=== PATIENT | male | born 1990 | race Caucasian/White ===

== ENCOUNTER 2018-10-23 11:45 | Emergency (ER) | payer MEDICAID, SELFPAY ==
[2018-10-23 11:46] VITALS: BP 159/96; PULSE 112; RESP 16; TEMP 36.8; O2SAT 99; BMI 31.3
[2018-10-23 12:00] VITALS: BP 180/108; PULSE 110; RESP 22; O2SAT 98
--- NOTE | 2018-10-23 12:20 | CM.ED ---
SOCIAL WORK THIS WORKER MADE AWARE OF PATIENT IN FOR MENTAL HEALTH CONSULT. CRISIS TO EVALUATE ONCE MEDICALLY STABLE. VIRGINIA OLGUIN, MUSIC MIXER, TOOL GRINDER SET UP OPERATOR GEAR.
[2018-10-23 12:48] LABS: Absolute Neutrophil Count 5.9 X10^3/uL (2.0-7.7); Basophil# 0.02 X10^3/uL; Basophil% 0.2 % (0-1); Eosinophil# 0.09 X10^3/uL; Hematocrit 39.3 % (40-54); Hemoglobin 13.3 g/dl (13.0-16.5); Lymphocyte % 25.3 % (19-41); Mean Corp Hgb Conc 33.8 g/gl (32-36); Mean Corpuscular Hgb 29.5 pg (27.0-32.0); Mean Corpuscular Volume 87.1 fL (80-94); Mean Platelet Vol. 10.3 fl (6.2-12.0); Monocyte# 0.82 X10^3/uL; Neutrophil # 5.85 X10^3/uL (2.7-7.7); Neutrophil % 64.3 % (47-70); POSITIVE COUNT NO; POSITIVE DIFFERENTIAL NO; POSITIVE MORPHOLOGY NO; Platelet Count 203 K/mm3 (150-450); RBC Distribution Width CV 14.2 % (11.6-14.6); RBC Distribution Width SD 45.2 fl (35.1-43.9); Red Blood Count 4.51 M/mm3 (4.6-6.2); White Blood Count 9.1 K/mm3 (4.4-11.0)
[2018-10-23 12:59] LABS: Anion Gap 10 (5-15); BUN 24 mg/dL (7-18); Calcium,Total 9.5 mg/dL (8.5-10.1); Chloride 103 mmol/L (98-107); Creatinine, Serum 1.09 mg/dL (0.70-1.30); EST Glomerular Filtration Rate 86 mL/min (>60); Est Glom Filt Rate - Afr Amer 104 mL/min (>60); Estimated Creatinine Clearance 95.17 ml/min; Glucose 94 mg/dL (74-106); Potassium 3.5 mmol/L (3.5-5.1); Sodium Level 141 mmol/L (136-145)
[2018-10-23 13:39] LABS: Valproic Acid (Depakene) Level 95 ug/mL (50-100)
[2018-10-23 13:48] LABS: Amphetamine Urine VISTA POSITIVE (<1000 ng/mL); Barbiturate Urine VISTA NEGATIVE (< 200 ng/mL); Benzodiazepine Urine VISTA NEGATIVE (< 200 ng/mL); Cocaine Urine VISTA NEGATIVE (< 300 ng/mL); Ecstacy Urine VISTA POSITIVE (< 500 ng/mL); Methadone Urine VISTA NEGATIVE (< 300 ng/mL); PCP Urine VISTA NEGATIVE (< 25 ng/mL); THC Urine VISTA NEGATIVE (< 50 ng/mL); Vista UDS pH Range 6
--- NOTE | 2018-10-23 14:38 | ED.RN ---
COUNSELING CENTER AWARE THAT PT NEEDS TO BE SEEN BY CRISIS
[2018-10-23] MEDS: LORazepam 2 MG/ML Syringe IM (15:04)
[2018-10-23 16:05] VITALS: PULSE 110; RESP 16; O2SAT 98
--- NOTE | 2018-10-23 16:10 | ED.RN ---
CRISIS REPORTED TO THIS NURSE THAT SHE WAS WRITING UP A PINK SLIP FOR PT AND OTHERS SAFETY,
[2018-10-23] MEDS: Ziprasidone IM 20 MG/ML VIAL IM (16:31)
--- NOTE | 2018-10-23 17:30 | CM.ED ---
SOCIAL WORK RETAIL SERVICE SPECIALIST DELMY HERE AND EVALUATED PATIENT. UPDATED REFERRAL HAS BEEN MADE TO [facility]. VIRGINIA OLGUIN, CONSUMER SERVICES CONSULTANT, FRUIT BUYING GRADER.
--- NOTE | 2018-10-23 17:57 | ED.DCSUM_ITS ---
- ER Visit Summary Date of Service: 10/23/18 Chief Complaint: [Abnormal behavior] History of Present Illness: The patient is a 28 M [presents to the emergency department with his mother whom he lives with currently. Patient apparently has been without a lot of his psychiatric medications for several weeks. Patient has not been sleeping at night and has had decreased interest her mother. Patient started drinking again. Mother has concerns that he might be using drugs again. Patient was just recently discharged from a 17-month long stay at a rehab facility for drug and alcohol treatment. Patient has been very manic per mother as well as per police aide who had an encounter with the patient recently. Patient does admit to drinking alcohol however he initially denied any drug use. He denies feeling suicidal or homicidal. Patient feels that this symptoms are all due to the fact that he is been without his Seroquel and trazodone.] Physical Examination: [HEENT-PERRLA, EOMI. Cranial nerves II through XII grossly intact. TMs clear. Mucous membranes moist. No adenopathy. Cardiovascular-regular rate and rhythm without murmur or ectopy Lungs-clear to auscultation, chest wall stable without crepitus or subcu emphysema Abdomen-normoactive bowel sounds, soft, nontender, no rebound or rigidity, no peritoneal signs. Extremities-intact ?4, normal range of motion, normal pulses, atraumatic] General-patient quite manic. Patient with flight of ideas. Patient with pressured speech. Test Results: [CBC with differential was normal. Chemistries unremarkable. Toxicology screen was positive for amphetamines and MDMA to which the patient d id admit using. Alcohol was negative.] Emergency Department Course and Treatment: [Patient initially given Ativan as he was feeling anxious 2 mg IM. Patient continued to complain of feeling very anxious and feeling like the room was closing in on him. The patient was pink slipped after being evaluated by crisis and discussing with patient's mother the fact that he is now destroying her house and is urinating in the house. Believe patient would benefit from inpatient stabilization.] Treatment Plan: [Transfer to psychiatric facility.] Disposition: [Transfer] Impression: [Psychosis-noncompliant with meds Manic episode] This note was generated with [employer] software. It may contain incorrect words, spelling, and punctuation that were not noted in review of the chart prior to signing ED Disposition - Plan for ED Patient: Referrals: Care Physician,No Primary [Primary Care Provider] -
[2018-10-23 18:48] VITALS: BP 158/84; PULSE 93; RESP 14; TEMP 36.8; O2SAT 100
--- NOTE | 2018-10-23 19:29 | NURSING ---
ACCEPTED TO [facility] BY DR. EDMONDSON [phone] REPORT
--- NOTE | 2018-10-23 19:45 | NURSING ---
[facility] CALLED AT 1934 SAID NO AVAILABILITY [facility] CALLED AT 1937 AND WAS TOLD COULD TRANSPORT AT 10AM 10/24 PHYSICIANS SAID BEHIND ON TRANSPORT CALL AFTER MIDNIGHT
[2018-10-23 21:35] VITALS: RESP 18
[2018-10-24 00:29] VITALS: BP 150/90; PULSE 102; RESP 18; O2SAT 96
[2018-10-24] MEDS: traZODone 50 MG Tablet PO ×2 (00:58→00:59)
[2018-10-24] MEDS: Divalproex Sodium 250 MG Tablet 1500 MG PO (00:59)
[2018-10-24] MEDS: QUEtiapine 100 MG Tablet 200 MG PO (01:00)
[2018-10-24] MEDS: hydrOXYzine PAM 25 MG Capsule 50 MG PO (01:00)
--- NOTE | 2018-10-24 01:08 | ED.RN ---
PATIENT WAS VERY POLITE AND COOPERATIVE WHEN I GAVE HIM HIS MEDICATIONS. HE ASKED WHEN AND WHERE HE WAS GOING. HE WAS OK WITH GOING TO [facility].
[2018-10-24 05:00] VITALS: BP 122/71; PULSE 86; RESP 16; O2SAT 100
[2018-10-24 06:06] VITALS: TEMP 36.6
[2018-10-24 06:20] VITALS: BP 122/71; PULSE 86; RESP 16; TEMP 36.6; O2SAT 100
[2018-10-24] MEDS: Celecoxib 100 MG Capsule PO (10:29)
[2018-10-24 10:30] VITALS: BP 123/67; PULSE 59; RESP 16; O2SAT 98
== END 2018-10-24 10:30 ==
PROVIDERS: Emergency Provider Emergency Medicine
DX: F29 Unspecified psychosis not due to a substance or known physiological condition (principal); F30.9 Manic episode, unspecified; F41.9 Anxiety disorder, unspecified; Z91.14 Patient's other noncompliance with medication regimen; Z79.899 Other long term (current) drug therapy
CPT/HCPCS: 36415; 80048; 80164; 80307; 80320; 85025; 96372; 99285; G0480; J3486

== ENCOUNTER 2019-05-29 01:41 | Emergency (ER) | payer MEDICAID, SELFPAY ==
[2019-05-29 01:41] VITALS: BP 157/90; PULSE 100; RESP 28; TEMP 36.9; O2SAT 97; BMI 25.7
[2019-05-29 02:08] VITALS: BP 131/88; PULSE 98; RESP 21; TEMP 36.9; O2SAT 94
[2019-05-29 02:44] VITALS: PULSE 111; RESP 18
[2019-05-29] MEDS: Ipratropium/Albuterol Sulfate 3 ML AMPUL.NEB INHALATION (02:44)
[2019-05-29] MEDS: 0.9% Normal Saline 1,000 ML 999 ML IV (03:08)
[2019-05-29] MEDS: MethylPREDNISolone 125 MG/2 ML Vial IV (03:21)
[2019-05-29 03:23] LABS: Absolute Lymphocyte Count 2.93 X10^3/uL (0.83-4.51); Absolute Neutrophil Count 10.2 X10^3/uL (2.0-7.7); Basophil# 0.07 X10^3/uL; Basophil% 0.5 % (0-1); Eosinophil# 0.72 X10^3/uL; Eosinophils% 4.8 % (0-5); Hematocrit 40.5 % (40-54); Hemoglobin 13.6 g/dL (13.0-16.5); Lymphocyte # 2.93 X10^3/ul (4.0); Lymphocyte % 19.3 % (19-41); Mean Corp Hgb Conc 33.6 g/dL (32-36); Mean Corpuscular Hgb 29.5 pg (27.0-32.0); Mean Corpuscular Volume 87.9 fL (80-94); Mean Platelet Vol. 10.5 fl (6.2-12.0); Monocyte# 1.14 X10^3/uL; Monocyte% 7.5 % (0-10); NRBC Flagged by Analyzer 0 % (0-5); Neutrophil # 10.22 X10^3/uL (2.7-7.7); Neutrophil % 67.4 % (47-70); Platelet Count 237 K/mm3 (150-450); RBC Distribution Width CV 14.2 % (11.6-14.6); RBC Distribution Width SD 45.3 fl (35.1-43.9); Red Blood Count 4.61 M/mm3 (4.6-6.2); White Blood Count 15.2 K/mm3 (4.4-11.0)
--- NOTE | 2019-05-29 03:24 | ED.VIS.GEN ---
History of Present Illness Chief Complaint: Shortness of Breath Informant: Patient Narrative: Patient states that for the past several weeks he has been experiencing chest tightness. He was seen initially at [facility] than the [facility] practice twice and now tonight here in the emergency department. He states that he has an aerosol machine at home has been using a pro-air inhaler. Has also done prednisone with taper. He is completed a course of doxycycline. Prior to doxycycline he was on penicillin for tooth infection but states that the penicillin seem to help his breathing better. He vapes. He states the albuterol makes his anxiety worse. No fevers. He states the symptoms are worse at night and feels better during the daytime. Past Medical History - Allergies and Home Meds Allergies/Adverse Reactions: Allergies No Known Allergies Allergy (Verified 05/29/19 01:46) Primary Care Physician: Care Physician,No Primary [Primary Care Provider] - Smoking Status: Former smoker Review of Systems General: Denies: Chills, Fever, Sweats Eyes: Denies: Visual changes - bilaterally, Diplopia ENT: Denies: Rhinorrhea, Sore throat Cardiovascular: Denies: Chest pain, Palpitations Respiratory: Reports: Dyspnea, Cough, Dyspnea on exertion, Paroxysmal nocturnal dyspnea Gastrointestinal: Denies: Abdominal pain, Nausea, Vomiting, Diarrhea, Melena, Hematochezia Genitourinary: Denies: Dysuria, Hematuria, Frequency Musculoskeletal: Denies: Back pain, Extremity Pain Skin: Denies: Rash, Wounds Neurological: Denies: Headache, Weakness, Numbness Physical Exam Vital Signs/Narrative: Vital Signs Temp Pulse Resp BP Pulse Ox 05/29/19 02:44 111 H 18 05/29/19 02:08 98.5 F 98 21 H 131/88 H 94 05/29/19 01:41 98.5 F 100 28 H 157/90 H 97 Inital Vital Signs reviewed: Yes General: Well nourished, Well developed, No Acute Distress Head: Normocephalic, Atraumatic Eyes: Perrl, EOMI ENT: Moist mucous membranes, No rhinorrhea Neck: Supple, Nontender Cardiovascular: Regular rate, No murmurs, Tachycardia Respiratory: No distress, Chest nontender, Wheezing Abdomen: Soft, Nontender, Nondistended, Normal bowel sounds Back: Nontender, Normal Inspection Extremities: Nontender, No edema Skin: Normal color, No rash Neurological: Alert, Oriented x3, Cranial nerves II-XII grossly intact, Normal Strength, Normal Sensation Psychological: Normal affect, Normal Mood Diagnostic/Tx/Re-eval - Medical Decision Making White count is 15 but he has had been on steroids. Chest x-ray is negative. He received a breathing treatment and refused anything more. He also received IV Solu-Medrol. Patient was reassessed and he still has significant wheezing. His peak flows 250/300. I expressed my concerns that I did not feel that he would do well as an outpatient and contacted the hospitalist. During the hospitalist evaluation he states he does not want to come in now. This is in direct contrast to what he told me. In either case now he wishes to go home. I will place him on tapering prednisone. He really should see pulmonology. Continue his aerosols and MDI. Patient appears to have capacity to make the decision to leave. I disagree with his decision but it is his decision. ED Disposition - Plan for ED Patient: Disposition: Home or Assisted Living Diagnosis: Bronchospasm, acute Instructions: BRONCHOSPASM (Adult) Prescriptions: Prednisone 10 mg PO DAILY #63 tab Prescription Printed Referrals: Denzel Hoffman DO [STAFF PHYSICIAN] -
[2019-05-29 03:36] LABS: Anion Gap 7 (5-15); BUN 17 mg/dL (7-18); BUN/Creat Ratio 16.5 RATIO (10-20); Calcium,Total 8.7 mg/dL (8.5-10.1); Chloride 106 mmol/L (98-107); Creatinine, Serum 1.03 mg/dL (0.70-1.30); EST Glomerular Filtration Rate 91 mL/min (>60); Est Glom Filt Rate - Afr Amer 110 mL/min (>60); Estimated Creatinine Clearance 99.83 ml/min; Glucose 121 mg/dL (74-106); Potassium 3.5 mmol/L (3.5-5.1); Sodium Level 138 mmol/L (136-145)
--- NOTE | 2019-05-29 03:45 | RAD_ITS ---
STUDY: X-RAY CHEST REASON FOR EXAM: Male, 29 years old. COUGH FOR 3 WEEKS, DYSPNEA TECHNIQUE: Frontal and lateral views of the chest. COMPARISON: None. FINDINGS: The lungs are clear and mildly hyper expanded. There is no demonstrated pleural abnormality. Normal size heart. Normal mediastinum and johanna. Normal visualized pulmonary arteries. Normal visualized aortic arch and descending thoracic aorta. Normal visualized thoracic spine. There is truncation of the distal left clavicle, probably representing a previous acromioplasty. There is no demonstrated abnormality of the visualized soft tissue structures of the upper abdomen. RAD/Chest PA and Lateral IMPRESSION: Mild hyperexpansion of the lungs may be due to a very good inspiratory effort or might represent acute or chronic air-trapping. No demonstrated pulmonary infiltrate. Electronically Signed: Abdullahi Villanueva MD at 4:00 EST , Service support ,
[2019-05-29 04:00] VITALS: BP 117/74; PULSE 95; RESP 18; O2SAT 96
[2019-05-29] MEDS: Albuterol 2.5 MG/3 ML VIAL.NEB. INHALATION (04:10)
[2019-05-29 04:12] VITALS: PULSE 103; RESP 28
[2019-05-29] MEDS: Acetaminophen 500 MG Tablet 1000 MG PO (04:50)
[2019-05-29 05:29] VITALS: BP 117/74; PULSE 100; RESP 16; O2SAT 96
== END 2019-05-29 05:31 | disposition home or self-care (01) ==
PROVIDERS: Emergency Provider Emergency Medicine
DX: J98.01 Acute bronchospasm (principal); F41.9 Anxiety disorder, unspecified; Z87.891 Personal history of nicotine dependence; Z79.899 Other long term (current) drug therapy
CPT/HCPCS: 36415; 71046; 80048; 85025; 94640; 96361; 96374; 99285; J7030; A4216

== ENCOUNTER 2019-06-21 20:48 | Emergency (ER) | payer MEDICAID, SELFPAY ==
[2019-06-21 20:49] VITALS: BP 143/75; PULSE 79; RESP 16; TEMP 36.6; O2SAT 100; BMI 27.0
[2019-06-21 21:07] VITALS: BP 141/87; PULSE 83; RESP 17; O2SAT 99
--- NOTE | 2019-06-21 21:09 | CT_ITS ---
STUDY: CT ABDOMEN AND PELVIS WITHOUT CONTRAST REASON FOR EXAM: Male, 29 years old. RT FLANK PAIN RADIATION DOSAGE (If Supplied By Facility): CTDIvol = ( 6.31 ) mGy, DLP = ( 354.75 ) mGycm TECHNIQUE: Transaxial images were obtained from the dome of the diaphragm to the symphysis pubis with oral contrast, and without intravenous contrast. Sagittal and coronal images were reconstructed. Individualized dose optimization techniques were used for this CT. COMPARISON: None. FINDINGS: The visualized lung bases are unremarkable. The visualized portions of the heart are within normal limits. Normal liver. The gallbladder is contracted. Normal spleen. Normal pancreas. Normal bilateral adrenal glands. Normal right kidney. Normal left kidney. Normal visualized stomach. Normal small intestine. Normal colon. The appendix is visualized and appears normal. Normal abdominal aorta. Normal inferior vena cava. Normal retroperitoneum. Normal urinary bladder. The prostate appears normal. There is a small umbilical hernia containing fat. There is a bilateral L5 spondylolysis. There is no associated spondylolisthesis. CT/Abdomen/Pelvis without Cont IMPRESSION: Small fat-containing umbilical hernia. Bilateral L5 spondylolysis. There is no evidence of associated spondylolisthesis. There is no evidence of free intra-abdominal or intrapelvic air, fluid, or inflammatory process. There is no evidence of nephro or ureterolithiasis, hydronephrosis, or hydroureter. Electronically Signed: Carlo Mcgraw MD at 22:12 EST , Service support ,
--- NOTE | 2019-06-21 21:09 | EKG12_ITS ---
Test Reason : DYSRYTHMIA Blood Pressure : / mmHG Vent. Rate : 082 BPM Atrial Rate : 082 BPM P-R Int : 144 ms QRS Dur : 096 ms QT Int : 352 ms P-R-T Axes : 040 040 027 degrees QTc Int : 411 ms Normal sinus rhythm Normal ECG Confirmed by CALEB RUTHERFORD ([id number]), material expeditor LUCIA JOHNSTON ([id number]) on 06/22/2019 2:56:04 PM Referred By: MALINDA Confirmed By:CALEB RUTHERFORD
--- NOTE | 2019-06-21 21:10 | ED.VIS.GEN ---
History of Present Illness Chief Complaint: Abd Pain Detail of Chief Complaint: Right flank pain, shortness of breath, anxiety Informant: Patient Onset: Days Narrative: Patient reports increasing anxiety over the past several days. Today he has had right mid side abdominal pain. He states he feels there is something swollen inside there that is keeping him from getting a big breath. He feels very dehydrated has been drinking a lot of fluids and urinating frequently. Patient recently was on prednisone for bronchitis and tapered off a couple days ago. He also reports being on Wellbutrin in the past. He is on for about 2 weeks and felt like his anxiety was getting worse. He had stopped it for 3 or 4 days, then took another tab today. He is not sure if this is related to his symptoms. - Past Medical History (1) Anxiety Status: Chronic Past Medical History - Allergies and Home Meds Allergies/Adverse Reactions: Allergies No Known Allergies Allergy (Verified 06/21/19 20:50) Primary Care Physician: Woo Lantigua MD [Primary Care Provider] - Prior records reviewed: Yes Smoking Status: Former smoker Review of Systems General: Denies: Chills, Fever Eyes: Denies: Visual changes - bilaterally ENT: Denies: Bilateral ear pain Cardiovascular: Denies: Chest pain Respiratory: Reports: Dyspnea Gastrointestinal: Reports: Abdominal pain, Diarrhea Genitourinary: Denies: Dysuria Musculoskeletal: Denies: Extremity Pain Skin: Denies: Rash Neurological: Denies: Headache Psych: Reports: Anxiety Endocrine: Reports: Polyuria, Polydipsia Physical Exam Vital Signs/Narrative: Vital Signs Temp Pulse Resp BP Pulse Ox 06/21/19 20:49 97.8 F 79 16 143/75 H 100 Inital Vital Signs reviewed: Yes General: Well nourished, Well developed Head: Normocephalic ENT: Moist mucous membranes Neck: Supple Cardiovascular: Regular rate, Regular rhythm Respiratory: No distress, CTA bilaterally Abdomen: Soft, Nontender, Normal bowel sounds Extremities: Nontender Skin: Normal color Neurological: Alert, Oriented x3, Normal Strength, Normal Sensation Psychological: - - Anxious Diagnostic/Tx/Re-eval Impressions Abdomen/Pelvis CT 06/21/19 21:09 IMPRESSION: Small fat-containing umbilical hernia. Bilateral L5 spondylolysis. There is no evidence of associated spondylolisthesis. There is no evidence of free intra-abdominal or intrapelvic air, fluid, or inflammatory process. There is no evidence of nephro or ureterolithiasis, hydronephrosis, or hydroureter. Electronically Signed: Carlo Mcgraw MD at 22:12 EST , Service support , Chest X-Ray 06/21/19 21:41 IMPRESSION: Normal x-ray examination of the chest. Electronically Signed: Carlo Mcgraw MD at 22:05 EST , Service support , 06/21/19 21:09 Abdomen/Pelvis without Cont [CT] Stat 06/21/19 21:41 Chest PA and Lateral [RAD] Stat Laboratory Results 06/21/19 06/21/19 06/21/19 21:13 21:13 21:15 WBC 13.2 H RBC 4.71 Hgb 13.7 Hct 41.4 MCV 87.9 MCH 29.1 MCHC 33.1 RDW Std Deviation 42.9 RDW Coeff of Klaus 13.2 Plt Count 219 MPV 10.9 Immature Gran % (Auto) 0.200 Neut % (Auto) 65.2 Lymph % (Auto) 24.3 [place] % (Auto) 6.6 Eos % (Auto) 3.2 Baso % (Auto) 0.5 Absolute Neuts (auto) 8.6 H Absolute Lymphs (auto) 3.21 Nucleated RBC % 0 Sodium 136 Potassium 3.8 Chloride 106 Carbon Dioxide 25.0 Anion Gap 5 BUN 8 Creatinine 0.84 Estim Creat Clear Calc 122.41 Est GFR (MDRD) Af Amer 140 Est GFR (MDRD) Non-Af 116 BUN/Creatinine Ratio 9.6 L Glucose 93 Calcium 8.8 Total Bilirubin 0.20 Direct Bilirubin 0.09 AST 11 L ALT 22 Alkaline Phosphatase 52 Total Protein 6.6 Albumin 3.8 Globulin 2.8 Lipase 172 Urine Color Straw Urine Clarity Clear Urine pH 8.0 Ur Specific [place] 1.010 Urine Protein Negative Urine Glucose (UA) Normal Urine Ketones Negative Urine Occult Blood Negative Urine Nitrite Negative Urine Bilirubin Negative Urine Urobilinogen Normal Ur Leukocyte Esterase Negative Urine RBC 0 SEEN Urine WBC 0 SEEN Ur Squamous Epith Cells 0 SEEN Urine Bacteria 0 SEEN Urine Mucus 0 SEEN - EKG Initial EKG Interpretation: Sinus Rhythm - Sinus 82 with no acute ischemia. - Medical Decision Making Patient was given IV fluids along with 0.5 mg IV Ativan. He reported no significant improvement in his anxiety. He was then given 50 mg of p.o. Vistaril. On repeat evaluation he does feel improved. He has an appointment with his doctor tomorrow to discuss his anxiety. I will write him a prescription for Vistaril but he will not fill until after his appointment to make sure they want him on this medication and not something different. He is comfortable with this plan. He will be written off work tomorrow. ED Disposition - Plan for ED Patient: Disposition: Home or Assisted Living Diagnosis: Anxiety Instructions: Anxiety Reaction Prescriptions: hydrOXYzine pamoate capsule [Vistaril] 50 mg PO TID PRN PRN #30 cap PRN Reason: Anxiety Prescription Printed Referrals: Woo Lantigua MD [Primary Care Provider] -
[2019-06-21] MEDS: LORazepam 2 MG/ML Syringe 0.5 MG IV (21:25)
[2019-06-21] MEDS: 0.9% Normal Saline 1,000 ML 1000 ML IV (21:25)
[2019-06-21 21:27] LABS: Bacteria 0 SEEN /hpf (None Seen); Mucous, Urine 0 SEEN /hpf (<or=2+); Red Blood Cells-Urine 0 SEEN /hpf (0-5); Squamous Epithelial Cells - UA 0 SEEN /hpf (0-5); White Blood Cells 0 SEEN /hpf (0-5)
[2019-06-21 21:37] LABS: Color, Urine Straw (Yellow); Glucose, Dipstick Normal (Normal); Ketone-Dipstick Negative (Negative); Leukocyte Esterase-Dipstick Negative /ul (Negative); Nitrite-Dipstick Negative (Negative); Occult Blood-Urine Negative /ul (Negative); Protein-Dipstick Negative (Negative); Urine Bilirubin Dipstick Negative (Negative); Urine Clarity Clear (Clear); Urine Urobilinogen Normal (Normal)
[2019-06-21 21:41] LABS: Absolute Lymphocyte Count 3.21 X10^3/uL (0.83-4.51); Absolute Neutrophil Count 8.6 X10^3/uL (2.0-7.7); Basophil# 0.06 X10^3/uL; Basophil% 0.5 % (0-1); Eosinophil# 0.42 X10^3/uL; Eosinophils% 3.2 % (0-5); Hematocrit 41.4 % (40-54); Hemoglobin 13.7 g/dL (13.0-16.5); Lymphocyte # 3.21 X10^3/ul (4.0); Lymphocyte % 24.3 % (19-41); Mean Corp Hgb Conc 33.1 g/dL (32-36); Mean Corpuscular Hgb 29.1 pg (27.0-32.0); Mean Corpuscular Volume 87.9 fL (80-94); Mean Platelet Vol. 10.9 fl (6.2-12.0); Monocyte# 0.87 X10^3/uL; Monocyte% 6.6 % (0-10); NRBC Flagged by Analyzer 0 % (0-5); Neutrophil # 8.64 X10^3/uL (2.7-7.7); Neutrophil % 65.2 % (47-70); Platelet Count 219 K/mm3 (150-450); RBC Distribution Width CV 13.2 % (11.6-14.6); RBC Distribution Width SD 42.9 fl (35.1-43.9); Red Blood Count 4.71 M/mm3 (4.6-6.2); White Blood Count 13.2 K/mm3 (4.4-11.0)
--- NOTE | 2019-06-21 21:41 | RAD_ITS ---
STUDY: X-RAY CHEST REASON FOR EXAM: Male, 29 years old. COMPLAINS OF R UPPER AND LOWER QUADRANT ABD PAIN, NAUSEA, DIARRHEA. TECHNIQUE: PA and lateral views of the chest. COMPARISON: Previous study of May 29, 2019 FINDINGS: monitor technician leads are present. The lungs are clear and expanded. There is no demonstrated pleural abnormality. Normal size heart. Normal mediastinum and johanna. Normal visualized pulmonary arteries. Normal visualized aortic arch and descending thoracic aorta. Normal visualized thoracic spine. Normal visualized ribs, clavicles, and shoulders. There is no demonstrated abnormality of the visualized soft tissue structures of the upper abdomen. RAD/Chest PA and Lateral IMPRESSION: Normal x-ray examination of the chest. Electronically Signed: Carlo Mcgraw MD at 22:05 EST , Service support ,
[2019-06-21 21:50] LABS: AST(SGOT) 11 U/L (15-37); Alanine Aminotransfer ALT/SGPT 22 U/L (16-61); Albumin, Serum 3.8 g/dL (3.2-5.0); Alkaline Phosphatase 52 U/L (45-117); Anion Gap 5 (5-15); BUN 8 mg/dL (7-18); BUN/Creat Ratio 9.6 RATIO (10-20); Bilirubin, Direct 0.09 mg/dL (0.00-0.30); Calcium,Total 8.8 mg/dL (8.5-10.1); Chloride 106 mmol/L (98-107); Creatinine, Serum 0.84 mg/dL (0.70-1.30); EST Glomerular Filtration Rate 116 mL/min (>60); Est Glom Filt Rate - Afr Amer 140 mL/min (>60); Estimated Creatinine Clearance 122.41 ml/min; Globulin 2.8 g/dL (2.2-4.2); Glucose 93 mg/dL (74-106); Lipase 172 U/L (73-393); Potassium 3.8 mmol/L (3.5-5.1); Protein, Total 6.6 g/dL (6.4-8.2); Sodium Level 136 mmol/L (136-145)
[2019-06-21] MEDS: hydrOXYzine PAM 25 MG Capsule 50 MG PO (22:07)
== END 2019-06-21 23:24 | disposition home or self-care (01) ==
PROVIDERS: Emergency Provider Emergency Medicine; PCP Family Medicine
DX: F41.9 Anxiety disorder, unspecified (principal); K42.9 Umbilical hernia without obstruction or gangrene; R06.02 Shortness of breath; R10.9 Unspecified abdominal pain; R19.7 Diarrhea, unspecified; Z79.899 Other long term (current) drug therapy; Z87.891 Personal history of nicotine dependence
CPT/HCPCS: 71046; 74176; 80048; 80076; 81001; 83690; 85025; 93005; 96361; 96374; 99284; J7030; A4216

== ENCOUNTER 2019-09-01 21:53 | Emergency (ER) | payer MEDICAID, SELFPAY ==
[2019-09-01 21:53] VITALS: BP 143/90; PULSE 90; RESP 18; TEMP 36.7; O2SAT 96; BMI 28.1
--- NOTE | 2019-09-01 22:17 | ED.DCSUM_ITS ---
History of Present Illness Chief Complaint: Foreign Body Informant: Patient Onset: Today Narrative: Patient was fishing tonight and while using a thrown at a large hook entered his right index finger and exited at the tip. He notes his tetanus is up-to-date. Past Medical History - Allergies and Home Meds Allergies/Adverse Reactions: Allergies No Known Allergies Allergy (Verified 09/01/19 21:56) Primary Care Physician: Woo Lantigua MD [Primary Care Provider] - 3-5 Days if not improving Smoking Status: Never smoker Review of Systems General: Denies: Chills, Fever, Sweats Eyes: Denies: Visual changes - bilaterally, Diplopia ENT: Denies: Rhinorrhea, Sore throat Cardiovascular: Denies: Chest pain, Palpitations Respiratory: Denies: Dyspnea, Cough, Dyspnea on exertion Gastrointestinal: Denies: Abdominal pain, Nausea, Vomiting, Diarrhea, Melena, Hematochezia Genitourinary: Denies: Dysuria, Hematuria, Frequency Musculoskeletal: Reports: Extremity Pain. Denies: Back pain Skin: Denies: Rash, Wounds Neurological: Denies: Headache, Weakness, Numbness Physical Exam Vital Signs/Narrative: Vital Signs Temp Pulse Resp BP Pulse Ox 09/01/19 21:53 98.0 F 90 18 143/90 H 96 Inital Vital Signs reviewed: Yes General: Well nourished, Well developed, No Acute Distress Head: Normocephalic, Atraumatic Eyes: Perrl, EOMI ENT: Moist mucous membranes, No rhinorrhea Neck: Supple, Nontender Cardiovascular: Regular rate, Regular rhythm, No murmurs Respiratory: No distress, CTA bilaterally, Chest nontender Abdomen: Soft, Nontender, Nondistended, Normal bowel sounds Back: Nontender, Normal Inspection Extremities: No edema, - - The right arm is tangled up in fishnet and there is a large fishhook entering the lateral aspect of the distal right index finger with the point sticking out of the distal tip of the finger. Neurovascular intact. Skin: Normal color, No rash Neurological: Alert, Oriented x3, Cranial nerves II-XII grossly intact, Normal Strength, Normal Sensation Psychological: Normal affect, Normal Mood Diagnostic/Tx/Re-eval - Medical Decision Making I injected 1% lidocaine at the middle phalanx site on the lateral aspect to perform a digital block. This provided adequate anesthesia. Both cutters were used to free the proximal end of the hook and allow clearance of the fish netting. Given the size of the hook and the fact the patient told me there was a large single roddy on the end decision was made just to pull the hook through. This was done. It was irrigated and cleansed and dressed. I am going to place him on Keflex and have him monitor for any signs of felon or infection. Patient notes understanding is comfortable with her plan. ED Disposition - Plan for ED Patient: Disposition: Home or Assisted Living Diagnosis: Fish hook injury of finger Instructions: ED Foreign Body Soft Tissue Removed Prescriptions: Cephalexin [Keflex] 500 mg PO Q6 #20 cap Transmission Status: Received by [facility] Referrals: Woo Lantigua MD [Primary Care Provider] - 3-5 Days if not improving
[2019-09-01 22:32] VITALS: PULSE 90; RESP 16; O2SAT 96
[2019-09-01] MEDS: Cephalexin 250 MG Capsule 500 MG PO (23:11)
== END 2019-09-01 23:11 | disposition home or self-care (01) ==
LOC: ED 22:38
PROVIDERS: Emergency Provider Emergency Medicine; PCP Family Medicine
DX: S60.450A Superficial foreign body of right index finger, initial encounter (principal); W45.8XXA Other foreign body or object entering through skin, initial encounter; Y93.89 Activity, other specified; Y92.9 Unspecified place or not applicable; Y99.9 Unspecified external cause status
CPT/HCPCS: 64450; 99283

== ENCOUNTER 2019-09-05 04:02 | Emergency (ER) | payer MEDICAID, SELFPAY ==
[2019-09-05 04:03] VITALS: BP 148/99; PULSE 104; RESP 18; TEMP 36.4; O2SAT 98; BMI 27.5
[2019-09-05 04:40] VITALS: PULSE 108; RESP 16; O2SAT 97
--- NOTE | 2019-09-05 04:41 | ED.VIS.GEN ---
History of Present Illness Chief Complaint: Anxiety Informant: Patient Onset: Today Context: Sudden Onset Timing: Continuous Current Severity: Mild Maximum Severity: Severe Worsened by: using albuterol for asthma Relieved by: ativan injections received in the ED in past visits Associated Symptoms: chest tightness Narrative: Patient presents having an anxiety attack. He states he is a little better now than he was at home, but he has been having this happen every day, some episodes are worse than others, usually associated with chest tightness, he feels panicky, he starts crying, uses his albuterol daily because of the tightness, that he feels like he has his asthma along with wheezing, it does help some, but it takes time for his anxiety to calm down, states he has come to the ED several times in the past couple months for the same symptoms and Ativan has helped. He has had EKGs and work-ups that are unremarkable. He states her no new symptoms here today. He denies using any stimulants or illicit substances. He occasionally drinks alcohol but none recently. States he has tried Wellbutrin in the past for his anxiety, which he has had since he was a kid. It did not settle well with him and he has not tried anything else. States he has talked to his doctor about inhaled corticosteroids which were not recommended for some reason. He has not followed up with a public relations representative about this asthma and he is on no maintenance medications. - Past Medical History (1) Asthma Status: Chronic (2) Anxiety Status: Chronic Past Medical History - Allergies and Home Meds Allergies/Adverse Reactions: Allergies No Known Allergies Allergy (Verified 09/05/19 04:50) Primary Care Physician: Con Marquez [Primary Care Provider] - Smoking Status: Current some day smoker Alcohol: Occasional Drugs: None Review of Systems General: Denies: Chills, Fever, Sweats Eyes: Denies: Visual changes - bilaterally, Diplopia ENT: Denies: Rhinorrhea, Sore throat Cardiovascular: Reports: Chest pain. Denies: Palpitations Respiratory: Reports: Dyspnea - wheezing, mild. Denies: Cough, Dyspnea on exertion Gastrointestinal: Denies: Abdominal pain, Nausea, Vomiting, Diarrhea, Melena, Hematochezia Genitourinary: Denies: Dysuria, Hematuria, Frequency Musculoskeletal: Denies: Back pain, Extremity Pain Skin: Denies: Rash, Wounds Neurological: Denies: Headache, Weakness, Numbness Psych: Reports: Anxiety. Denies: Suicidal thoughts Physical Exam Vital Signs/Narrative: Vital Signs Temp Pulse Resp BP Pulse Ox 09/05/19 04:03 97.6 F L 104 H 18 148/99 H 98 Inital Vital Signs reviewed: Yes General: Well nourished, Well developed, No Acute Distress Head: Normocephalic, Atraumatic Eyes: Perrl, EOMI ENT: Moist mucous membranes, No rhinorrhea Neck: Supple, Nontender Cardiovascular: Regular rate, Regular rhythm, No murmurs Respiratory: No distress, CTA bilaterally, Chest nontender Abdomen: Soft, Nontender, Nondistended, Normal bowel sounds Back: Nontender, Normal Inspection Extremities: Nontender, No edema Skin: Normal color, No rash Neurological: Alert, Oriented x3, Cranial nerves II-XII grossly intact, Normal Strength, Normal Sensation Psychological: Normal Mood, - - Anxious. Pressured speech. Coherent logical goal-directed thoughts, redirectable, does not seem manic. Diagnostic/Tx/Re-eval - Medical Decision Making He was given an injection of Ativan, and referred to pulmonology at his request which I think is reasonable. I think he should probably be on something for maintenance, but I am unaware of reasons why a provider would recommend against inhaled corticosteroids in his case. For that reason I have not prescribing them. I advised that he follow-up. ED Disposition - Plan for ED Patient: Disposition: Home or Assisted Living Diagnosis: Anxiety, Asthma, Intermittent chest pain Instructions: ED Panic Attack Referrals: Con Marquez [Primary Care Provider] - Denzel Hoffman DO [STAFF PHYSICIAN] -
[2019-09-05] MEDS: LORazepam 2 MG/ML Syringe 1 MG IM (04:47)
== END 2019-09-05 05:01 | disposition home or self-care (01) ==
LOC: ED 04:54
PROVIDERS: Emergency Provider Emergency Medicine; PCP Orthopaedic Surgery
DX: F41.9 Anxiety disorder, unspecified (principal); J45.909 Unspecified asthma, uncomplicated; R07.89 Other chest pain; F17.200 Nicotine dependence, unspecified, uncomplicated
CPT/HCPCS: 96372; 99282

== ENCOUNTER 2019-09-17 20:16 | Emergency (ER) | payer MEDICAID, SELFPAY ==
[2019-09-14 06:07] VITALS: BMI 27.2
[2019-09-17 20:16] VITALS: BP 161/60; PULSE 97; RESP 21; TEMP 36.2; O2SAT 97; BMI 27.0
--- NOTE | 2019-09-17 21:17 | ED.VIS.PSYCH ---
History of Present Illness Chief Complaint: Anxiety Informant: Patient Onset: Month(s) Context: Gradual Onset - Waxes and wanes, months of symptoms Conflict: - - Nothing in particular Timing: Continuous, Waxes and wanes Current Severity: Severe Maximum Severity: Severe Worsened by: - - Drinking energy drinks Relieved by: Ativan when he is in the ER Associated Symptoms: Negative for: Depressed, Hopelessness, Suicidal Thoughts, Visual Hallucinations, Auditory Hallucinations Narrative: Patient has been here before for the same thing, he states he is very anxious. When he has had a dose of Ativan, which he is not specifically asking for, it significantly helps, for that evening and into the next day until his anxiety gradually worsens. He has seen his doctor but he refused to give him medications according to the patient. He referred him to psychiatry/psychology, he saw a clinical psychologist but he cannot prescribe medication so he was referred to somebody else but he cannot get into see that person in a timely fashion became very anxious today. He states he has been drinking some different organic energy drinks and he seems to get worse after that. He denies any abdominal pain, nausea, vomiting, chest pain, shortness of breath, palpitations, near syncope. He states he gets tremulous at times when he gets symptomatic. - Past Medical History (1) Bipolar 1 disorder Status: Chronic (2) Schizoaffective disorder, bipolar type Status: Chronic (3) Anxiety Status: Chronic Past Medical History - Allergies and Home Meds Allergies/Adverse Reactions: Allergies No Known Allergies Allergy (Verified 09/17/19 20:18) Primary Care Physician: Con Marquez MD [Primary Care Provider] - Smoking Status: Former smoker Drugs: None - Patient denies Review of Systems General: Denies: Chills, Fever, Sweats Eyes: Denies: Visual changes - bilaterally, Diplopia ENT: Denies: Rhinorrhea, Sore throat Cardiovascular: Denies: Chest pain, Palpitations Respiratory: Denies: Dyspnea, Cough, Dyspnea on exertion Gastrointestinal: Denies: Abdominal pain, Nausea, Vomiting, Diarrhea, Melena, Hematochezia Genitourinary: Denies: Dysuria, Hematuria, Frequency Musculoskeletal: Denies: Back pain, Extremity Pain Skin: Denies: Rash, Wounds Neurological: Reports: - - Tremulousness. Denies: Headache, Weakness, Numbness Physical Exam Vital Signs/Narrative: Vital Signs Temp Pulse Resp BP Pulse Ox 09/17/19 20:16 97.1 F L 97 21 H 161/60 H 97 Inital Vital Signs reviewed: Yes General: Well nourished, Well developed Head: Normocephalic, Atraumatic Eyes: Perrl, EOMI ENT: Moist mucous membranes, No rhinorrhea Neck: Supple, - - Full range of motion without difficulty Extremities: No Edema, - - Full range of motion throughout all joints of all 4 extremities without pain or difficulty Skin: Normal color, No rash, No Trauma Neurological: Alert, Oriented x3, Cranial nerves II-XII grossly intact, Normal Strength, Normal Sensation, Normal Gait Psych: Logical sequential goal directed thoughts, No suicidal or homicidal ideation, Good Insight, Good Judgement, Normal Appearance, Pressured Speech Diagnostic/Tx/Re-eval Patient was given an Ativan orally 1 mg. He was advised will not be prescribing any controlled substances out of the emergency department or long-term psychiatric/psychoactive medications. He is understanding of all that, and is very thankful. Advised to follow-up. Our social work talk to him, and referred him to our mental health program. He was advised to avoid any energy drinks as there stimulants will make his anxiety worse. ED Disposition - Plan for ED Patient: Disposition: Home or Assisted Living Diagnosis: Anxiety Instructions: ED Panic Attack Referrals: Con Marquez MD [Primary Care Provider] - Health, behavioral [Other] (see attached resources -- call for appt)
[2019-09-17] MEDS: LORazepam 1 MG Tablet PO (21:21)
--- NOTE | 2019-09-17 21:35 | CM.ED ---
Social Work Consult: Anxiety Informant: Dr. Man Chief Complaint: Patient stating to have been anxious all day and to not be able to get control. Marital/Social History: Single. Has a girl that lives with me. Patient stating she is supportive. Living Situation: Lives with significant other. Support/Resources: Support from significant other and parents. Currently not connected with counseling or psychiatry services. History: None Education/Employment History: Completed High School no concerns with comprehension or understanding. Unemployed at this time as patient was having multiple panic attacks at work and I couldn't take it. Patient was working at [employer]. Mental Health Treatment/History: Anxiety, Bi-polar, ADHD per patient. Patient stating I have it all. Patient denies any active medication but stating to have a history of managing mental health through medication (Seroquel, Adderall). Patient stating to have stopped taking medications about a year ago. Patient stating to have stopped on own. Patient stating to have been working on trying to get medications set up again, but patient primary care physician would not prescribe and referred patient to Dr. Lawrence. Patient stating to have completed one appointment with Dr. Lawrence but no further follow up has occurred. Patient with history of inpatient psychiatric placement 1-2 years ago. Triggers/Stressors: Patient stating to not be sure. Patient then stating to have a lot of fish and to be worried about the fish and that might stress me out. Patient stating to also be concerned with current pandemic. Coping Skills: Spending time with my fish. Patient stating I really like fish. Abuse Issues: Denies Substance Abuse Hx: Patient stating to have a history of alcohol abuse at the age of 18-19. Patient stating to now drink no more then 1-2 beers in one setting. Patient stating to have used multiple substances but to currently not use any substances at this time. Patient stating to wear a patch and to no longer smoke tobacco. Risk to Self/Others: Patient denies any thoughts/plan of suicide or history of. Patient denies any homicidal thoughts/plans. Patient stating I want to live. Patient stating to have a fear that I might , but wants to live and has no intent to harm self. Mental Status Exam: A&Ox3 Appearance/General Behavior: Clean. Mood/Affect: Elevated. Communication Pattern: Responds to questions. Rapid speech at times but able to maintain topic. Thought Process: Reporting to have auditory hallucinations at times but not currently any. Reports no feeling of paranoia against others but to be concerned about patient own health. Assessment: Met with patient in room. Introduced self as well as social media intern role. Patient is agreeable to speaking with this social media intern. Patient presenting as anxious. Patient stating to feel safe to self but to need something for my anxiety. Dr. Man came into the room during assessment and is stating plan to give patient Ativan to help with anxiety. Patient thanking Dr. Man. Dr. Man then leaving the room after completing needed questions. Patient stating to have positive support at home. Patient continues to perseverate on patient physical health and how patient panic attack affects patient physical body. Patient stating that biggest concern is that patient will have a panic attack and I will . Went over coping skills and counseled patient on lethal means. Patient provided with crisis hotline number and if patient would have thoughts of suicide. Broached topic of the [facility] Behavioral Health program. Patient is open to this. This social media intern setting up intake appointment for Friday September 20, 2019 at 2:00pm. Patient is also open to follow-up phone call on how appointment went. Patient stating I need to do something. Patient verbally committing to go to appointment. Patient stating I know I need it. Active support and listening provided. Confirming patient contact number and insurance information. Collaborating with Dr. Man. Dr. Man agreeable with above plan for patient to discharge to home with [facility] Behavior[facility] follow up on Thursday. PLAN: Discharge to home with [facility] Follow-up. Alta PIKE, YOSEF
--- NOTE | 2019-09-21 19:17 | CM.ED ---
Social Work Attempted follow up call with patient. Patient did not answer. Voicemail left. Alta PIKE, YOSEF
== END 2019-09-17 22:12 | disposition home or self-care (01) ==
PROVIDERS: Emergency Provider Emergency Medicine; PCP Orthopaedic Surgery
DX: F25.0 Schizoaffective disorder, bipolar type (principal); F41.9 Anxiety disorder, unspecified; Z87.891 Personal history of nicotine dependence
CPT/HCPCS: 99283

== ENCOUNTER 2019-10-24 07:34 | Emergency (ER) | payer MEDICAID, SELFPAY ==
[2019-10-24 07:36] VITALS: BP 136/99; PULSE 112; RESP 18; TEMP 36.2; O2SAT 99; BMI 29.7
--- NOTE | 2019-10-24 08:43 | EKG12_ITS ---
Test Reason : ANIEXTY Blood Pressure : / mmHG Vent. Rate : 096 BPM Atrial Rate : 096 BPM P-R Int : 138 ms QRS Dur : 102 ms QT Int : 356 ms P-R-T Axes : 081 037 025 degrees QTc Int : 449 ms Normal sinus rhythm Normal ECG Confirmed by CALEB RUTHERFORD ([id number]), mapping editor DESTINY SPARKS ([id number]) on 10/27/2019 11:56:07 AM Referred By: ROLF Confirmed By:CALEB RUTHERFORD
--- NOTE | 2019-10-24 09:11 | ED.RN ---
Pt states, not sure why I'm here. I explained he would be able to get some answers related to his concerns. He states, I don't really want any answers. Left the department.
[2019-10-24 09:20] LABS: Bacteria 0 SEEN /hpf (None Seen); Mucous, Urine 0 SEEN /hpf (<or=2+); Red Blood Cells-Urine 0 SEEN /hpf (0-5); White Blood Cells 0 SEEN /hpf (0-5)
--- NOTE | 2019-10-24 09:21 | ED.DCSUM_ITS ---
- ER Visit Summary Date of Service: 10/24/19 Chief Complaint: Anxiety History of Present Illness: The patient is a 29 M who presents with anxiety that has been getting worse over the past few weeks. Patient states he has been trying to establish with a psychiatrist who will prescribe his medications for him. Patient states he has been unable to do this due to the COVID-19 pandemic. Patient states today he was having trouble walking and felt like his heart was racing. Patient states this feels similar to prior panic attacks. Patient states nothing makes it better or worse. Patient states he was taking Benadryl at home with no improvement. Physical Examination: Vital signs are stable. Patient is afebrile. Patient is in no acute distress. Oral mucosa is pink and moist. Neck is supple. Trachea is midline. There is no JVD noted. Heart was regular rate and rhythm. Lungs are clear and equal bilaterally. Abdomen is soft. Bowel sounds are normal. There is no tenderness. There is no rebound or guarding noted. Skin is warm dry. Cranial nerves II through XII are intact. There are no focal motor or sensory deficits noted. Extremities are intact. There is no calf tenderness or edema. Test Results: EKG showed a normal sinus rhythm with a rate of 96. There are no acute ST or T wave changes. There are no prior EKGs available for comparison. I ordered labs for further evaluation of his palpitations and anxiety symptoms. Patient refused any further labs and left without completing treatment. Emergency Department Course and Treatment: Patient left without completing treatment. Patient did not want any labs drawn. Patient told nursing staff that they can never find anything. Patient did not sign any papers AGAINST MEDICAL ADVICE. Disposition: Eloped Impression: 1. Anxiety This note was generated with ZenoLink dictation software. It may contain incorrect words, spelling, and punctuation that were not noted in review of the chart pr ior to signing ED Disposition - Plan for ED Patient: Disposition: Against Medical Advice Diagnosis: Anxiety Referrals: Con Marquez MD [Primary Care Provider] -
[2019-10-24 09:42] LABS: Color, Urine Yellow (Yellow); Glucose, Dipstick Normal (Normal); Ketone-Dipstick 50 mg/dl (Negative); Leukocyte Esterase-Dipstick Negative /ul (Negative); Nitrite-Dipstick Negative (Negative); Occult Blood-Urine Negative /ul (Negative); Protein-Dipstick Negative (Negative); Specific Gravity, Urine 1.015 (1.002-1.030); Urine Bilirubin Dipstick Negative (Negative); Urine Clarity Clear (Clear); Urine Urobilinogen Normal (Normal)
[2019-10-24 09:45] LABS: Amphetamine Urine VISTA POSITIVE (<1000 ng/mL); Barbiturate Urine VISTA NEGATIVE (< 200 ng/mL); Benzodiazepine Urine VISTA NEGATIVE (< 200 ng/mL); Cocaine Urine VISTA NEGATIVE (< 300 ng/mL); Ecstacy Urine VISTA NEGATIVE (< 500 ng/mL); Methadone Urine VISTA NEGATIVE (< 300 ng/mL); PCP Urine VISTA NEGATIVE (< 25 ng/mL); THC Urine VISTA NEGATIVE (< 50 ng/mL); Vista UDS pH Range 6
[2019-10-24 10:09] LABS: Squamous Epithelial Cells - UA 0-5 SEEN /hpf (0-5)
== END 2019-10-24 09:13 | disposition left against medical advice (07) ==
LOC: ED 08:47
PROVIDERS: Emergency Provider Emergency Medicine; PCP Orthopaedic Surgery
DX: F41.9 Anxiety disorder, unspecified (principal); F41.0 Panic disorder [episodic paroxysmal anxiety]; R26.2 Difficulty in walking, not elsewhere classified; R00.2 Palpitations; Z79.899 Other long term (current) drug therapy
CPT/HCPCS: 80307; 81001; 93005

== ENCOUNTER 2019-10-24 15:07 | Emergency (ER) | payer MEDICAID, SELFPAY ==
[2019-10-24 07:36] VITALS: BMI 29.7
[2019-10-24 15:08] VITALS: BP 154/90; PULSE 106; RESP 16; TEMP 36.4; O2SAT 96; BMI 29.7
--- NOTE | 2019-10-24 16:22 | EKG12_ITS ---
Test Reason : ANXIETY Blood Pressure : / mmHG Vent. Rate : 092 BPM Atrial Rate : 092 BPM P-R Int : 136 ms QRS Dur : 098 ms QT Int : 364 ms P-R-T Axes : 077 047 035 degrees QTc Int : 450 ms Normal sinus rhythm Incomplete right bundle branch block Borderline ECG Confirmed by CALEB RUTHERFORD ([id number]), book editor DESTINY SPARKS ([id number]) on 10/27/2019 11:52:58 AM Referred By: LUISITO Confirmed By:CALEB RUTHERFORD
--- NOTE | 2019-10-24 16:23 | ED.VIS.GEN ---
History of Present Illness Chief Complaint: Anxiety Informant: Patient Onset: Month(s) Context: Gradual Onset Current Severity: Moderate Maximum Severity: Moderate Narrative: Presents with anxiety and feeling like his heart is pounding. He states that he did drink some white because last night. He got up this morning and used his steroid inhaler. Shortly after that he started feeling his heart was racing and pounding. He was seen in the ER early this morning and had an EKG obtained. He eloped from the emergency room prior to being medicated or getting any lab work drawn. Patient states he does felt like he could not sit still needed to get out of here. Patient has had increasing anxiety over the last several months. He has made attempts to get in to see a psychiatrist but has been unable secondary to the Covid pandemic. He states he was on medication for anxiety as a child but not as an adult. - Past Medical History (1) Depression Status: Chronic (2) History of substance abuse Status: Chronic (3) Anxiety Status: Chronic (4) Bipolar 1 disorder Status: Chronic (5) Schizoaffective disorder, bipolar type Status: Chronic Past Medical History - Allergies and Home Meds Allergies/Adverse Reactions: Allergies No Known Allergies Allergy (Verified 09/17/19 20:18) Primary Care Physician: Con Marquez MD [NON-STAFF] - Prior records reviewed: Yes Lives: Alone Smoking Status: Former smoker Review of Systems General: Denies: Chills, Fever Eyes: Denies: Visual changes - bilaterally ENT: Denies: Bilateral ear pain Cardiovascular: Reports: Palpitations, Heart racing Respiratory: Denies: Dyspnea Gastrointestinal: Reports: - - Decreased appetite. Denies: Abdominal pain, Nausea, Vomiting Musculoskeletal: Denies: Swelling, Extremity Pain Skin: Denies: Rash Neurological: Denies: Headache Hematologic: Denies: Easy bruising, Easy bleeding Allergy: Denies: Uticaria Physical Exam Vital Signs/Narrative: Vital Signs Temp Pulse Resp BP Pulse Ox 10/24/19 15:08 97.5 F L 106 H 16 154/90 H 96 Inital Vital Signs reviewed: Yes General: Well nourished, Well developed Head: Normocephalic ENT: Moist mucous membranes Neck: Supple Cardiovascular: Regular rate, Regular rhythm Respiratory: No distress, CTA bilaterally Abdomen: Soft, Nontender Back: Nontender Extremities: Nontender Skin: Normal color, No rash Neurological: Alert, Oriented x3, Normal Strength, Normal Sensation Psychological: - - Anxious Diagnostic/Tx/Re-eval Laboratory Results 10/24/19 10/24/19 10/24/19 16:31 16:31 16:31 WBC 11.5 H RBC 5.04 Hgb 15.4 Hct 44.3 MCV 87.9 MCH 30.6 MCHC 34.8 RDW Std Deviation 44.1 H RDW Coeff of Klaus 14.0 Plt Count 245 MPV 9.9 Immature Gran % (Auto) 0.300 Neut % (Auto) 68.9 Lymph % (Auto) 23.3 [place] % (Auto) 6.7 Eos % (Auto) 0.5 Baso % (Auto) 0.3 Absolute Neuts (auto) 7.9 H Absolute Lymphs (auto) 2.68 Nucleated RBC % 0 D-Dimer Quant (PE/DVT) Sodium 135 L Potassium 3.5 Chloride 99 Carbon Dioxide 26.0 Anion Gap 10 BUN 9 Creatinine 0.96 Estim Creat Clear Calc 107.11 Est GFR (MDRD) Af Amer 119 Est GFR (MDRD) Non-Af 98 BUN/Creatinine Ratio 9.3 L Glucose 84 Calcium 9.8 Troponin I < 0.015 TSH 1.30 10/24/19 19:10 WBC RBC Hgb Hct MCV MCH MCHC RDW Std Deviation RDW Coeff of Klaus Plt Count MPV Immature Gran % (Auto) Neut % (Auto) Lymph % (Auto) [place] % (Auto) Eos % (Auto) Baso % (Auto) Absolute Neuts (auto) Absolute Lymphs (auto) Nucleated RBC % D-Dimer Quant (PE/DVT) 0.28 Sodium Potassium Chloride Carbon Dioxide Anion Gap BUN Creatinine Estim Creat Clear Calc Est GFR (MDRD) Af Amer Est GFR (MDRD) Non-Af BUN/Creatinine Ratio Glucose Calcium Troponin I TSH - EKG Initial EKG Interpretation: Sinus Rhythm - Sinus at 92 with no acute ischemia. - Medical Decision Making Patient was initially given 0.5 mg of Ativan followed by a p.o. dose of Vistaril. Repeat examination he still felt like his heart was pounding hard and fast. He still felt very anxious. Social work met with him and was able to get him an intake appointment at the counseling center. He was given 1 mg of IV Ativan and at this time is resting more comfortably. Patient be discharged with a prescription for a short course of Ativan to help with anxiety. He will follow-up for his intake in a couple days. ED Disposition - Plan for ED Patient: Disposition: Home or Assisted Living Diagnosis: Anxiety Instructions: ED Panic Attack Prescriptions: Lorazepam [Ativan] 1 mg PO BID PRN PRN #10 tablet PRN Reason: Anxiety Transmission Status: Sent to [facility] Referrals: [facility] [GROUP OF PHYSICIANS] - Additional Instructions: Follow-up for intake at Counseling Center as discussed.
--- NOTE | 2019-10-24 16:40 | CM.ED ---
SOCIAL WORK Informant: Dr. Jones Reason for Consult: Anxiety Chief Compliant: Patient presents to the ED for second time today with anxiety. Marital/Social History: Single Living Situation: Patient reports lives in apartment with roommate. Support/Resources: Roommate Employment History: Unemployed Mental Health Treatment/History: Patient reports history of anxiety, depression, Bipolar. Patient states was following with psychiatrist, Dr. Escalera who prescribed Seroquel, Trazodone, Depakote and Prozac. Patient states was on the medications for over a year and did not like the way they made me feel. Patient states stopped taking the medications cold . Patient states would like to get re-established with services and has been trying to get connected. Patient denies any suicidal or homicidal ideation. Patient counseled on lethal means. Substance Abuse History: Patient reports history of alcohol, meth and marijuana use. Patient states will drink up to 3 White Claws every few days. Patient states 2 days ago took Adderall and drank a White Claw hoping it would calm me down. Mental Status Exam: Orientation- A&Ox3 Memory- Fair Appearance/General Behavior: Disheveled, agitated Mood/Affect: Anxious Communication Pattern: Responds to questions Thought Process: Appropriate Judgment: Fair Assessment: Met with patient in room. Introduced role and reason for referral. Patient discussed mental health and substance abuse history. Patient wanting to get connected with services and back on medication for mental health. Patient denies any suicidal or homicidal ideation, plan or intent. Discussed options for treatment. Patient open to this worker setting up appointment with [facility]. Patient states has been to [facility] in the past and states they couldn't help me. They wouldn't prescribe. Education and support provided. Call to [facility]. Intake appointment scheduled for 11/02/2019 with Mukesh at 9am. Psych Services appointment scheduled for 11/08/[address] Castorena. Updated Dr. Jones on the above. Patient updated on appointment times and dates. Patient voices no further needs. Plan: Home with Intake and Psych Services follow up scheduled for patient at [facility]. Demetris Up, FOREIGN LANGUAGE INTERPRETER, YARD SPOTTER
[2019-10-24] MEDS: LORazepam 2 MG/ML Syringe 0.5 MG IV (16:41)
[2019-10-24 16:49] LABS: Absolute Lymphocyte Count 2.68 X10^3/uL (0.83-4.51); Absolute Neutrophil Count 7.9 X10^3/uL (2.0-7.7); Basophil# 0.04 X10^3/uL; Basophil% 0.3 % (0-1); Eosinophil# 0.06 X10^3/uL; Eosinophils% 0.5 % (0-5); Hematocrit 44.3 % (40-54); Hemoglobin 15.4 g/dL (13.0-16.5); Lymphocyte # 2.68 X10^3/ul (4.0); Lymphocyte % 23.3 % (19-41); Mean Corp Hgb Conc 34.8 g/dL (32-36); Mean Corpuscular Hgb 30.6 pg (27.0-32.0); Mean Corpuscular Volume 87.9 fL (80-94); Mean Platelet Vol. 9.9 fl (6.2-12.0); Monocyte# 0.77 X10^3/uL; Monocyte% 6.7 % (0-10); NRBC Flagged by Analyzer 0 % (0-5); Neutrophil # 7.89 X10^3/uL (2.7-7.7); Neutrophil % 68.9 % (47-70); Platelet Count 245 K/mm3 (150-450); RBC Distribution Width SD 44.1 fl (35.1-43.9); Red Blood Count 5.04 M/mm3 (4.6-6.2); White Blood Count 11.5 K/mm3 (4.4-11.0)
[2019-10-24 17:24] LABS: Anion Gap 10 (5-15); BUN 9 mg/dL (7-18); BUN/Creat Ratio 9.3 RATIO (10-20); Calcium,Total 9.8 mg/dL (8.5-10.1); Chloride 99 mmol/L (98-107); Creatinine, Serum 0.96 mg/dL (0.70-1.30); EST Glomerular Filtration Rate 98 mL/min (>60); Est Glom Filt Rate - Afr Amer 119 mL/min (>60); Estimated Creatinine Clearance 107.11 ml/min; Glucose 84 mg/dL (74-106); Potassium 3.5 mmol/L (3.5-5.1); Sodium Level 135 mmol/L (136-145)
[2019-10-24] MEDS: hydrOXYzine PAM 25 MG Capsule 50 MG PO (18:03)
[2019-10-24 19:12] VITALS: BP 125/75; PULSE 100; RESP 20; O2SAT 95
[2019-10-24] MEDS: LORazepam 2 MG/ML Syringe 1 MG IV (19:15)
[2019-10-24 19:28] LABS: D-Dimer Quantitative (DVT/PE) 0.28 FEU/ug/m (0.27-0.49)
[2019-10-24 20:09] VITALS: BP 150/78; PULSE 108; RESP 18; O2SAT 97
== END 2019-10-24 20:12 | disposition home or self-care (01) ==
PROVIDERS: Emergency Provider Emergency Medicine; PCP Family Medicine
DX: F25.0 Schizoaffective disorder, bipolar type (principal); F32.9 Major depressive disorder, single episode, unspecified; F41.0 Panic disorder [episodic paroxysmal anxiety]; F41.9 Anxiety disorder, unspecified; R26.2 Difficulty in walking, not elsewhere classified; R00.2 Palpitations; Z79.899 Other long term (current) drug therapy; Z87.891 Personal history of nicotine dependence
CPT/HCPCS: 80048; 80307; 81001; 84443; 84484; 85025; 85379; 93005; 96361; 96374; 96376; 99281; 99285; J7030; A4216

== ENCOUNTER 2019-11-07 05:08 | Emergency (ER) | payer MEDICAID, SELFPAY ==
[2019-11-07 05:09] VITALS: BP 142/98; PULSE 95; RESP 16; TEMP 36.1; O2SAT 99; BMI 27.0
[2019-11-07 05:28] VITALS: PULSE 93; RESP 15; O2SAT 98
--- NOTE | 2019-11-07 05:31 | ED.VIS.PSYCH ---
History of Present Illness Chief Complaint: Mental Health Narrative: Patient presenting for evaluation secondary to anxiety. Patient has a underlying history of past substance abuse. He reports that he is currently sober from methamphetamine and other drugs. Patient states that he recently has been dealing with increasing anxiety secondary to losing his job, and having difficulty with his housing. He also states that he has dealt with some recently that has been causing him anxiety. States that he has been having intermittent panic attacks that are associated with abdominal pain, palpitations, shortness of breath, and nausea and vomiting. Patient recently got in with the counseling center and was restarted on Wellbutrin about 5 days ago. Patient also states that he had a 10 pill course of Ativan leading up to this which was significantly helping his feelings of anxiety. He reports that he ran out of that yesterday. Patient is reporting today stating that he is having exacerbation of that anxiety. Patient denies being suicidal or homicidal. He denies any hallucinations. Patient does report that he drank some wine in the last couple of days, and he knows that that will occasionally exacerbate his nausea and vomiting. Patient also feels that potentially his Symbicort inhaler is contributing to his symptoms. Patient actually has an appointment tomorrow to follow-up with psychiatry. Past Medical History - Allergies and Home Meds Allergies/Adverse Reactions: Allergies No Known Allergies Allergy (Verified 11/07/19 05:14) Primary Care Physician: Woo Lantigua MD [Primary Care Provider] - Prior records reviewed: Yes Past Medical History: - - Past history of substance abuse, history of anxiety Lives: Alone Smoking Status: Light Smoker (<10/day) Alcohol: Occasional Drugs: - - Past history of methamphetamine use, currently sober Review of Systems All systems negative except as indicated General: Denies: Chills, Fever, Sweats Eyes: Denies: Visual changes - bilaterally, Diplopia ENT: Denies: Rhinorrhea, Sore throat Cardiovascular: Denies: Chest pain, Palpitations Respiratory: Denies: Dyspnea, Cough, Dyspnea on exertion Gastrointestinal: Reports: Abdominal pain, Nausea, Vomiting Genitourinary: Denies: Dysuria, Hematuria, Frequency Musculoskeletal: Denies: Back pain, Extremity Pain Skin: Denies: Rash, Wounds Neurological: Denies: Headache, Weakness, Numbness Psych: Reports: Anxiety Physical Exam Vital Signs/Narrative: Vital Signs Temp Pulse Resp BP Pulse Ox 11/07/19 05:09 97.0 F L 95 16 142/98 H 99 Inital Vital Signs reviewed: Yes General: Well nourished, Well developed Head: Normocephalic, Atraumatic Eyes: Perrl, EOMI ENT: Moist mucous membranes, No rhinorrhea Neck: Supple, Nontender Cardiovascular: Regular rate, Regular rhythm, No murmurs Respiratory: No distress, CTA bilaterally, Chest nontender Abdomen: Soft, Nontender, Nondistended, Normal bowel sounds Back: Nontender, Normal Inspection Extremities: Nontender, No Edema Skin: Normal color, No rash Neurological: Alert, Oriented x3, Cranial nerves II-XII grossly intact, Normal Strength, Normal Sensation Psych: Logical sequential goal directed thoughts, No suicidal or homicidal ideation, Normal Stable Appropriate Affect, Good Insight, Good Judgement, - - Patient has mildly pressured speech, but is easily redirectable Diagnostic/Tx/Re-eval Patient presented secondary to feelings of anxiety. He has a benign physical exam as noted above. I reviewed the patient's prescription reporting record, he does not have a pattern of abuse of prescription medicines. Patient is only 5 days into restarting on Wellbutrin, and likely is not benefiting from the full effects of the medication. I did encourage him to continue taking this. Patient has follow-up with psychiatry tomorrow, I recommended that he keep that. Patient was given Ativan in the emergency department and given his reassuring prescription reporting record he will be sent home with a continuing course of the same. Patient was discharged in improved condition. ED Disposition - Plan for ED Patient: Disposition: Home or Assisted Living Diagnosis: Anxiety Instructions: ED Stress React Prescriptions: Lorazepam [Ativan] 1 mg PO TID PRN #10 tab PRN Reason: Anxiety Prescription Printed Referrals: Woo Lantigua MD [Primary Care Provider] - Additional Instructions: Follow-up with counseling center tomorrow
[2019-11-07] MEDS: LORazepam 1 MG Tablet PO (05:34)
== END 2019-11-07 05:44 | disposition home or self-care (01) ==
PROVIDERS: Emergency Provider Emergency Medicine; PCP Family Medicine
DX: F41.9 Anxiety disorder, unspecified (principal); F41.0 Panic disorder [episodic paroxysmal anxiety]; R10.9 Unspecified abdominal pain; R11.2 Nausea with vomiting, unspecified; Z56.0 Unemployment, unspecified; F19.11 Other psychoactive substance abuse, in remission; F17.200 Nicotine dependence, unspecified, uncomplicated; Z79.899 Other long term (current) drug therapy
CPT/HCPCS: 99283

== ENCOUNTER 2020-01-22 10:47 | Emergency (ER) | payer MEDICAID, SELFPAY ==
[2020-01-22 10:48] VITALS: BP 116/93; PULSE 89; RESP 18; TEMP 36.1; O2SAT 98; BMI 28.5
--- NOTE | 2020-01-22 11:06 | RAD_ITS ---
STUDY: X-RAY CHEST REASON FOR EXAM: Male, 30 years old. SUBSTERNAL CHEST TECHNIQUE: AP COMPARISON: 06/21/2019 FINDINGS: The lungs are clear and expanded. There is no demonstrated pleural abnormality. Normal size heart. Normal mediastinum and johanna. Normal visualized pulmonary arteries. Normal visualized aortic arch and descending thoracic aorta. Normal visualized thoracic spine. Normal visualized ribs, clavicles, and shoulders. There is no demonstrated abnormality of the visualized soft tissue structures of the upper abdomen. RAD/Chest 1 View (Portable) IMPRESSION: Stable, nonacute portable x-ray examination of the chest. Electronically Signed: Osito Mccray MD (Brooks) at 12:16 EDT , Service support ,
--- NOTE | 2020-01-22 11:14 | ED.DCSUM_ITS ---
History of Present Illness Informant: Patient Onset: Month(s) - Several months Context: Gradual Onset Timing: Continuous Quality: Burning Location: Epigastric Current Severity: Severe Maximum Severity: Severe Worsened by: Eating Relieved by: Nothing Associated Symptoms: Denies Narrative: 30-year-old male history of GERD presents to the emergency department with pain and burning in his epigastric area. It radiates to his chest. Is been going on for several months. He has been using Prilosec zgwv-myk-[id number] for the last 10 days without improvement. He is not short of breath. He is not lightheaded or dizzy. He denies nausea or vomiting. He denies diarrhea melena or hematochezia. He denies any coffee-ground emesis or hematemesis. Denies fevers or hemoptysis. Denies any leg pain or swelling. He denies any recent travel or surgery or history of DVT or PE. He is not having abdominal pain. He has not had difficulty swallowing. He has an appointment with his primary care physician next week regarding the symptoms. He did have a endoscopy several ye ars ago at [place] Prior similar symptoms: Yes Recent Illness/Hospitalization: No <Russell Edmond - Last Filed: 01/22/20 12:33> <Wes Chanel - Last Filed: 01/22/20 12:40> Chief Complaint: Chest Other Past Medical History Prior records reviewed: Yes Past Medical History: - - GERD Surgical History: no surgical history Lives: With Family Smoking Status: Light Smoker (<10/day) Alcohol: Occasional Drugs: None <Russell Edmond - Last Filed: 01/22/20 12:33> <Wes Chanel - Last Filed: 01/22/20 12:40> - Allergies and Home Meds Allergies/Adverse Reactions: Allergies No Known Allergies Allergy (Verified 01/22/20 10:51) Primary Care Physician: Woo Lantigua MD [Primary Care Provider] - Review of Systems All systems negative except as indicated General: Denies: Chills, Fever, Sweats Eyes: Denies: Visual changes - bilaterally, Blurred Vision - bilaterally, Diplopia ENT: Denies: Bilateral ear pain, Rhinorrhea, Sore throat Cardiovascular: Reports: Chest pain. Denies: Palpitations, Heart racing Respiratory: Denies: Dyspnea, Cough, Dyspnea on exertion Gastrointestinal: Reports: Abdominal pain. Denies: Nausea, Vomiting, Diarrhea, Constipation, Melena, Hematochezia Genitourinary: Denies: Dysuria, Hematuria, Frequency Musculoskeletal: Denies: Myalgias, Back pain, Extremity Pain Skin: Denies: Rash, Wounds Neurological: Denies: Headache, Weakness, Numbness Hematologic: Denies: Easy bruising, Easy bleeding <Russell Edmond - Last Filed: 01/22/20 12:33> Physical Exam Vital Signs/Narrative: Vital Signs Temp Pulse Resp BP Pulse Ox 01/22/20 10:48 97.0 F L 89 18 116/93 H 98 Inital Vital Signs reviewed: Yes General: Well nourished, Well developed, No Acute Distress Head: Normocephalic, Atraumatic Eyes: Perrl, EOMI ENT: Moist mucous membranes, No rhinorrhea Neck: Supple, Nontender Cardiovascular: Regular rate, Regular rhythm, No murmurs Respiratory: No distress, CTA bilaterally, Chest nontender Abdomen: Soft, Nontender, Nondistended, Normal bowel sounds Back: Nontender, Normal Inspection. Negative for: CVA tenderness Extremities: Nontender, No edema Skin: Normal color, No rash Neurological: Alert, Oriented x3, Cranial nerves II-XII grossly intact, Normal Strength, Normal Sensation Psychological: Normal affect, Normal Mood <Russell Edmond - Last Filed: 01/22/20 12:33> Vital Signs/Narrative: Vital Signs Temp Pulse Resp BP Pulse Ox 01/22/20 10:48 97.0 F L 89 18 116/93 H 98 <Wes Chanel - Last Filed: 01/22/20 12:40> Diagnostic/Tx/Re-eval Chest X-Ray - ED: 1 View, Read by ED Physician, Read by Radiologist, No Acute Disease - Rhythm Strip Rhythm Strip: Sinus Rhythm Rate: 80 Ectopy: None - EKG Initial EKG Interpretation: Sinus Rhythm, No Acute Injury Pattern Prior: No Prior - Medical Decision Making EKG was performed on arrival which showed sinus rhythm rate of [address] segment or T wave changes. Normal intervals and no ectopy. Chest x-ray unremarkable. Repeat exam after he was treated with a GI cocktail and Pepcid he feels improved. Abdomen is soft and nontender. He is tolerating by mouth. He will continue his Prilosec we will add Carafate and he will follow-up with his doctor as scheduled this week. At this time he has no symptoms of bleeding his vital signs are stable we do not feel he needs further work-up acutely. <Russell Edmond - Last Filed: 01/22/20 12:33> - Medical Decision Making Patient was seen with me. I did a ekhb-ye-ooce examination with the patient. Patient presents with epigastric abdominal pain. Patient states he has a history of GERD and gastric ulcers. Patient states he is taking Prilosec at home. Patient states his pain is worse with any eating. Patient denies any fevers or chills. Patient denies any shortness of breath. Vital signs are stable. Patient is afebrile. Patient is in no acute distress. Oral mucosa is pink and moist. Neck is supple. Heart was regular rate and rhythm. Lungs are clear and equal bilaterally. Abdomen is soft. Bowel sounds are normal. There is mild epigastric tenderness. There is no rebound or guarding noted. Cranial nerves II through XII are intact. There are no focal motor or sensory deficits noted. EKG shows normal sinus rhythm with a rate of 83. There are no acute ST or T wave changes. Portable chest x-ray was obtained. There is no acute cardiopulmonary process. This was interpreted by the radiologist and reviewed by myself. Patient was given GI cocktail and Pepcid. Patient feels better on reevaluation. Patient was given a prescription for Carafate. Patient was instructed to follow-up with his primary care physician in 5 to 7 days. Patient understood and was agreeable with the plan. All questions were answered. <Wes Chanel - Last Filed: 01/22/20 12:40> ED Disposition <Russell Edmond - Last Filed: 01/22/20 12:33> <Wes Chanel - Last Filed: 01/22/20 12:40> - Plan for ED Patient: Disposition: Home or Assisted Living Diagnosis: GERD (gastroesophageal reflux disease), Abdominal pain, Bipolar 1 disorder, Schizoaffective disorder, bipolar type, History of substance abuse, History of alcohol abuse Instructions: ED ACID INDIGESTION Adult Prescriptions: Sucralfate [Carafate] 1 gm PO 4X/DAY #56 tab Transmission Status: Sent to [facility] Ondansetron [Zofran Odt] 4 mg PO Q8H PRN PRN #10 tab PRN Reason: Nausea Transmission Status: Sent to [facility]30 Referrals: Woo Lantigua MD [Primary Care Provider] -
[2020-01-22] MEDS: Famotidine 20 MG Tablet 40 MG PO (11:17)
[2020-01-22] MEDS: Mag Hydrox/Al Hydrox/Simeth 30 ML UDC PO (11:18)
--- NOTE | 2020-01-22 11:46 | EKG12_ITS ---
Test Reason : CP Blood Pressure : / mmHG Vent. Rate : 083 BPM Atrial Rate : 083 BPM P-R Int : 140 ms QRS Dur : 092 ms QT Int : 360 ms P-R-T Axes : 058 024 015 degrees QTc Int : 423 ms Normal sinus rhythm Normal ECG Confirmed by ENRIKE STEWART, DEWEY ([id number]), online editor LUCIA JOHNSTON ([id number]) on 01/26/2020 8:27:15 AM Referred By: ROLF Confirmed By:RADHA CALVERT MD
[2020-01-22 12:49] VITALS: BP 120/91; PULSE 85; RESP 16; O2SAT 99
== END 2020-01-22 12:49 | disposition home or self-care (01) ==
PROVIDERS: Emergency Provider Physician Assistant Medical; PCP Family Medicine
DX: K21.9 Gastro-esophageal reflux disease without esophagitis (principal); F25.0 Schizoaffective disorder, bipolar type; F31.9 Bipolar disorder, unspecified; F17.200 Nicotine dependence, unspecified, uncomplicated; F10.11 Alcohol abuse, in remission; F19.11 Other psychoactive substance abuse, in remission; Z79.899 Other long term (current) drug therapy; Z87.11 Personal history of peptic ulcer disease
CPT/HCPCS: 71045; 93005; 99283

== ENCOUNTER → 2020-02-16 11:04 | Outpatient (CLI) | payer MEDICAID, SELFPAY ==
[2020-02-16 10:07] VITALS: BMI 29.4
[2020-02-16 11:18] LABS: Absolute Neutrophil Count 5.3 X10^3/uL (2.0-7.7); Basophil# 0.07 X10^3/uL; Basophil% 0.8 % (0-1); Eosinophil# 0.28 X10^3/uL; Eosinophils% 3.1 % (0-5); Hematocrit 43.8 % (40-54); Hemoglobin 14.5 g/dL (13.0-16.5); Lymphocyte % 28.3 % (19-41); Mean Corp Hgb Conc 33.1 g/dL (32-36); Mean Corpuscular Hgb 30.1 pg (27.0-32.0); Mean Corpuscular Volume 90.9 fL (80-94); Mean Platelet Vol. 11.4 fl (6.2-12.0); Monocyte# 0.88 X10^3/uL; Monocyte% 9.6 % (0-10); NRBC Flagged by Analyzer 0 % (0-5); Neutrophil # 5.28 X10^3/uL (2.7-7.7); Neutrophil % 57.4 % (47-70); Platelet Count 191 K/mm3 (150-450); RBC Distribution Width CV 13.2 % (11.6-14.6); RBC Distribution Width SD 44.1 fl (35.1-43.9); Red Blood Count 4.82 M/mm3 (4.6-6.2); White Blood Count 9.2 K/mm3 (4.4-11.0)
[2020-02-18 16:07] LABS: Alternaria alternata <0.10 kU/L (Class 0); Bermuda Grass 0.37 kU/L (Class I); Cat Hair/Dander, Standard 4.59 kU/L (Class IV); Dog Epithelia 0.61 kU/L (Class II); Mouse Urine <0.10 kU/L (Class 0); Oak, White 0.18 kU/L (Class 0/I); Plantain, English 0.32 kU/L (Class I); Ragweed, Short/Common 1.64 kU/L (Class III)
[2020-02-19 16:07] LABS: Aspirgillus flavus Negative (Neg:<1:1); Aspirgillus fumigatus Negative (Neg:<1:1); Aspirgillus niger Negative (Neg:<1:1)
[2020-02-20 10:27] LABS: ANTINUCLEAR ANTIBODIES DIRECT Negative (Negative)
[2020-02-20 10:42] LABS: Immunoglobulin E 589 IU/mL (6-495)
== END ==
PROVIDERS: PCP Family Medicine; Referring Provider Nurse Practitioner Acute Care; Visit Provider Nurse Practitioner Acute Care
DX: R06.02 Shortness of breath (principal)
CPT/HCPCS: 36415; 82785; 85025; 86003; 86038; 86225; 86235; 86606

== ENCOUNTER 2020-03-13 14:04 | Emergency (ER) | payer MEDICAID, SELFPAY ==
[2020-02-16 10:07] VITALS: BMI 29.4
[2020-03-13 14:05] VITALS: BP 124/76; PULSE 100; RESP 24; TEMP 36.4; O2SAT 98; BMI 28.1
--- NOTE | 2020-03-13 14:19 | ED.DCSUM_ITS ---
History of Present Illness Chief Complaint: Anxiety Detail of Chief Complaint: Anxiety attack x2 Informant: Patient Onset: Today, Hours Context: Sudden Onset Timing: Intermittent Quality: Patient stressed that he is having an EGD tomorrow Location: Generalized Current Severity: Mild Maximum Severity: Severe Worsened by: Concern for procedure scheduled for tomorrow yesterday Relieved by: Nothing Associated Symptoms: Sense of uneasiness. Narrative: Patient is 30-year-old male who was diagnosed with peptic ulcer disease. Is scheduled for an EGD tomorrow. Does have history of anxiety disorder. He is on Geodon and Vistaril. States the medicine is not helping. He has no suicidal homicidal thoughts. He presents from work. He has no other complaints. Prior similar symptoms: Yes Recent Illness/Hospitalization: No - Patient states she has not been in the emergency room for anxiety attack in - Past Medical History (1) History of alcohol abuse Status: Acute (2) Anxiety Status: Chronic (3) Bipolar 1 disorder Status: Chronic (4) History of substance abuse Status: Chronic (5) Schizoaffective disorder, bipolar type Status: Chronic Past Medical History - Allergies and Home Meds Allergies/Adverse Reactions: Allergies No Known Allergies Allergy (Verified 03/13/20 14:07) Primary Care Physician: Woo Lantigua MD [Primary Care Provider] - Prior records reviewed: Yes Surgical History: no surgical history Lives: Alone Smoking Status: Light Smoker (<10/day) Alcohol: Occasional Drugs: - - Other Review of Systems ROS: - Other who General: Denies: Chills, Fever, Malaise Eyes: Denies: Visual changes - bilaterally, Blurred Vision - bilaterally ENT: Denies: Rhinorrhea, Sore throat Cardiovascular: Reports: Palpitations. Denies: Chest pain, Heart racing Respiratory: Reports: Dyspnea. Denies: Cough, Sputum, Dyspnea on exertion Gastrointestinal: Denies: Abdominal pain, Vomiting, Diarrhea Musculoskeletal: Denies: Myalgias, Arthralgias, Neck pain, Back pain, Swelling, Extremity Pain Skin: Denies: Rash, Wounds Neurological: Denies: Headache, Weakness Psych: Reports: Anxiety. Denies: Suicidal thoughts, Suicidal ideations Hematologic: Denies: Easy bruising, Easy bleeding Physical Exam Vital Signs/Narrative: Vital Signs Temp Pulse Resp BP Pulse Ox 03/13/20 14:05 97.6 F L 100 24 H 124/76 H 98 Inital Vital Signs reviewed: Yes General: Well nourished, Well developed, Acute Distress Head: Normocephalic, Atraumatic Eyes: Perrl, EOMI. Negative for: Pale conjunctiva, Scleral icterus ENT: Moist mucous membranes, No rhinorrhea Neck: Supple, Nontender, No lymphadenopathy, No JVD Cardiovascular: Regular rate, Regular rhythm, No murmurs, Normal S1, Normal S2 Respiratory: No distress, CTA bilaterally, Chest nontender Abdomen: Soft, Nontender, Nondistended, Normal bowel sounds Extremities: Nontender, No edema Skin: Normal color, No rash Neurological: Alert, Oriented x3, Cranial nerves II-XII grossly intact, Normal Strength, Normal Sensation Psychological: - - Patient appears anxious. Not animated. Diagnostic/Tx/Re-eval - Medical Decision Making With known history of anxiety related to upcoming scheduled procedure, i.e. EGD, will prescribe 2-day course of Ativan. ED Disposition - Plan for ED Patient: Disposition: Home or Assisted Living Diagnosis: Panic attack as reaction to stress Instructions: ED Stress React Prescriptions: Lorazepam [Ativan] 0.5 mg PO TID PRN PRN #6 tablet PRN Reason: Stress and or anxiety Transmission Status: Sent to [facility] #30 Referrals: Woo Lantigua MD [Primary Care Provider] - As Needed
== END 2020-03-13 14:43 | disposition home or self-care (01) ==
LOC: ED 14:38
PROVIDERS: Emergency Provider Emergency Medicine; PCP Family Medicine
DX: F43.0 Acute stress reaction (principal); K27.9 Peptic ulcer, site unspecified, unspecified as acute or chronic, without hemorrhage or perforation; F25.0 Schizoaffective disorder, bipolar type; F41.9 Anxiety disorder, unspecified; F17.200 Nicotine dependence, unspecified, uncomplicated; Z79.899 Other long term (current) drug therapy
CPT/HCPCS: 99282

== ENCOUNTER 2020-03-16 11:32 | Emergency (ER) | payer MEDICAID, SELFPAY ==
[2020-03-16 11:33] VITALS: BP 136/91; PULSE 90; RESP 28; TEMP 36.3; O2SAT 99; BMI 28.1
--- NOTE | 2020-03-16 12:49 | ED.DCSUM_ITS ---
History of Present Illness Onset: Yesterday Context: Gradual Onset Timing: Continuous Current Severity: Severe Maximum Severity: Severe Worsened by: nothing Relieved by: nothing Associated Symptoms: anxiety Narrative: 30-year-old male past medical history of schizoaffective disorder and bipolar disorder presents to the emergency department with anxiety. Patient states he is dealing with a significant amount of anxiety. He states that this has been occurring since he had his EGD done 2 days ago. He was seen in the emergency department 3 days ago and due to the anxiety that he was having for his procedure the next day he was given a total of 6 Ativan. He had his procedure. He states it went fine. He had an appointment this morning at 9 AM with the counseling center. He states that he was given Vistaril which is not helping and told him that he may need to be on more Ativan. He is not suicidal or homicidal. He has no chest pain or shortness of breath or fevers. He denies any other review of systems at this time. Prior similar symptoms: Yes Recent Illness/Hospitalization: No <Russell Edmond - Last Filed: 03/16/20 12:50> <Blayne Canas - Last Filed: 03/16/20 22:47> Chief Complaint: Anxiety Past Medical History Prior records reviewed: Yes Past Medical History: - - Bipolar disorder schizoaffective disorder anxiety and GERD Surgical History: no surgical history Smoking Status: Unknown if ever smoked <Russell Edmond - Last Filed: 03/16/20 12:50> <Blayne Canas - Last Filed: 03/16/20 22:47> - Allergies and Home Meds Allergies/Adverse Reactions: Allergies No Known Allergies Allergy (Verified 03/16/20 11:32) Primary Care Physician: [facility] [GROUP OF PHYSICIANS] - As soon as possible Woo Lantigua MD [Primary Care Provider] - Review of Systems All systems negative except as indicated General: Denies: Chills, Fever, Sweats Eyes: Denies: Visual changes - bilaterally, Diplopia ENT: Denies: Rhinorrhea, Sore throat Cardiovascular: Denies: Chest pain, Palpitations Respiratory: Denies: Dyspnea, Cough, Dyspnea on exertion Gastrointestinal: Denies: Abdominal pain, Nausea, Vomiting, Diarrhea, Melena, Hematochezia Genitourinary: Denies: Dysuria, Hematuria, Frequency Musculoskeletal: Denies: Back pain, Extremity Pain Skin: Denies: Rash, Wounds Neurological: Denies: Headache, Weakness, Numbness Psych: Reports: Anxiety. Denies: Depression, Suicidal thoughts, Suicidal ideations <Russell Edmond - Last Filed: 03/16/20 12:50> Physical Exam Vital Signs/Narrative: Vital Signs Temp Pulse Resp BP Pulse Ox 03/16/20 11:33 97.4 F L 90 28 H 136/91 H 99 Inital Vital Signs reviewed: Yes General: Well nourished, Well developed, No Acute Distress Head: Normocephalic, Atraumatic Eyes: Perrl, EOMI ENT: Moist mucous membranes, No rhinorrhea Neck: Supple, Nontender Cardiovascular: Regular rate, Regular rhythm, No murmurs Respiratory: No distress, CTA bilaterally, Chest nontender Abdomen: Soft, Nontender, Nondistended, Normal bowel sounds Back: Nontender, Normal Inspection Extremities: Nontender, No edema Skin: Normal color, No rash Neurological: Alert, Oriented x3, Cranial nerves II-XII grossly intact, Normal Strength, Normal Sensation Psychological: Normal affect, Normal Mood, - - Suicidal or homicidal ideation. Patient has a normal speech pattern. No paranoia delusions or hallucinations are noted.. Negative for: Depressed, Tearful, Agitated <Russell Edmond - Last Filed: 03/16/20 12:50> Diagnostic/Tx/Re-eval - Medical Decision Making I spoke with the counseling center at the crisis facility. They stated that at their appointment this morning they told the patient that they did not feel him being on Ativan chronically was in his best interest which is why they prescribed him 90 Vistaril to use 3 times a day as needed. I spoke with the patient and told him that we would not be prescribing him Ativan and that we will discharge him home to follow-up with counseling center as scheduled and he will continue to use Vistaril as needed. Patient became very angry and agitated stating that the only thing that helps him is Ativan however I discussed with him that that is not the best treatment for him and he will be discharged <Russell Edmond - Last Filed: 03/16/20 12:50> - Medical Decision Making Attending note: Patient seen and evaluated with follow up manager. I agree with plan and work-up. I performed on [id number] evaluation. Patient had increased anxiety. History of schizoaffective and bipolar. He is followed by counseling center. Reports was given Vistaril 90 tabs and they are not working. He states only Ativan helps. He denies suicidal homicidal ideations. Exam anxious patient walks around department. He denies homicidal suicidal ideations. 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 With patient anxiety was given 1 dose in the ED however no prescriptions. Discussed need to follow-up with counseling center for treatment for his symptoms. <Blayne Canas - Last Filed: 03/16/20 22:47> ED Disposition <Russell Edmond - Last Filed: 03/16/20 12:50> <Blayne Canas - Last Filed: 03/16/20 22:47> - Plan for ED Patient: Disposition: Home or Assisted Living Diagnosis: Bipolar 1 disorder, Depression, Schizoaffective disorder, bipolar type, History of substance abuse, History of alcohol abuse, Anxiety Instructions: ED Stress React Referrals: Woo Lantigua MD [Primary Care Provider] - [facility] [GROUP OF PHYSICIANS] - As soon as possible
[2020-03-16] MEDS: LORazepam 0.5 MG Tablet PO (13:21)
[2020-03-16 13:22] VITALS: RESP 18
== END 2020-03-16 13:22 | disposition home or self-care (01) ==
PROVIDERS: Emergency Provider Physician Assistant Medical; PCP Family Medicine
DX: F25.0 Schizoaffective disorder, bipolar type (principal); F32.9 Major depressive disorder, single episode, unspecified; F41.9 Anxiety disorder, unspecified; K21.9 Gastro-esophageal reflux disease without esophagitis; Z79.899 Other long term (current) drug therapy
CPT/HCPCS: 99282

== ENCOUNTER 2020-05-01 21:13 | Emergency (ER) | payer MEDICAID, SELFPAY ==
[2020-03-30 09:06] VITALS: BMI 29.7
[2020-05-01 21:14] VITALS: BP 140/93; PULSE 88; RESP 16; TEMP 36.4; O2SAT 97; BMI 30.2
--- NOTE | 2020-05-01 21:36 | CT_ITS ---
HISTORY: LOWER ABD PAIN X ONE WEEK/DYSURIA/CONSTIPATION ADDITIONAL HISTORY: None provided. EXAMINATION/TECHNIQUE: CT Abdomen And Pelvis W/O Contrast Injection Enteric contrast was not given. Number of images including paperwork: 472. A radiation dose optimization technique was used for this scan. COMPARISON: 06/21/2019 FINDINGS: Evaluation of the abdominopelvic organs is limited in the absence of contrast. LOWER THORAX: No consolidation or pleural effusion. Small amount of pericardial fluid. LIVER: No concerning focal lesion. GALLBLADDER: No radiopaque calculi. BILE DUCTS: No significant biliary dilatation. SPLEEN: Unremarkable. PANCREAS: Unremarkable. ADRENAL GLANDS: Unremarkable. KIDNEYS/URETERS: Unremarkable. BOWEL: No bowel obstruction. No significant bowel wall thickening. No localized inflammation. Large amount of colonic stool. APPENDIX: No evidence of appendicitis. FREE FLUID: No significant free fluid. FREE AIR: None. LYMPH NODES: No pathologic appearing adenopathy. PERITONEUM, RETROPERITONEUM AND MESENTERY: Otherwise unremarkable. VASCULATURE: Unremarkable as imaged. ABDOMINAL WALL: Small fat-containing umbilical hernia appears similar. PELVIS: Unremarkable bladder. OSSEOUS AND SOFT TISSUE STRUCTURES: No acute skeletal findings. Bilateral L5 spondylolysis without significant spondylolisthesis again seen. CT/Abdomen/Pelvis without Cont IMPRESSION: No acute abdominopelvic abnormality. Large amount of colonic stool. Individualized dose optimization techniques were used for this CT. at 2302 Reported and signed by: Mary Diaz MD Electronically Signed: Mary Diaz MD at 23:02 EST Tel , Service support ,
[2020-05-01 22:17] LABS: Bacteria 0 SEEN /hpf (None Seen); Mucous, Urine 0 SEEN /hpf (<or=2+); Red Blood Cells-Urine 0 SEEN /hpf (0-5); White Blood Cells 0 SEEN /hpf (0-5)
[2020-05-01] MEDS: 0.9% Normal Saline 1,000 ML 1000 ML IV (22:18)
[2020-05-01 22:29] LABS: Absolute Lymphocyte Count 1.82 X10^3/uL (0.83-4.51); Absolute Neutrophil Count 6.3 X10^3/uL (2.0-7.7); Basophil# 0.02 X10^3/uL; Basophil% 0.2 % (0-1); Eosinophil# 0.15 X10^3/uL; Eosinophils% 1.7 % (0-5); Hematocrit 42.4 % (40-54); Hemoglobin 14.1 g/dL (13.0-16.5); Lymphocyte # 1.82 X10^3/ul (4.0); Lymphocyte % 20.7 % (19-41); Mean Corp Hgb Conc 33.3 g/dL (32-36); Mean Corpuscular Hgb 29.8 pg (27.0-32.0); Mean Corpuscular Volume 89.6 fL (80-94); Mean Platelet Vol. 10.6 fl (6.2-12.0); Monocyte% 5.7 % (0-10); NRBC Flagged by Analyzer 0 % (0-5); Neutrophil # 6.25 X10^3/uL (2.7-7.7); Neutrophil % 71.2 % (47-70); Platelet Count 239 K/mm3 (150-450); RBC Distribution Width SD 42.7 fl (35.1-43.9); Red Blood Count 4.73 M/mm3 (4.6-6.2); White Blood Count 8.8 K/mm3 (4.4-11.0)
[2020-05-01 22:48] LABS: Color, Urine Yellow (Yellow); Glucose, Dipstick Normal (Normal); Ketone-Dipstick Negative (Negative); Leukocyte Esterase-Dipstick Negative /ul (Negative); Nitrite-Dipstick Negative (Negative); Occult Blood-Urine Negative /ul (Negative); Protein-Dipstick Negative (Negative); Specific Gravity, Urine 1.005 (1.002-1.030); Urine Bilirubin Dipstick Negative (Negative); Urine Clarity Clear (Clear); Urine Urobilinogen Normal (Normal)
[2020-05-01 22:55] LABS: Squamous Epithelial Cells - UA 0-5 SEEN /hpf (0-5)
--- NOTE | 2020-05-01 22:58 | ED.DCSUM_ITS ---
- ER Visit Summary Date of Service: 05/01/20 Chief Complaint: Left lower quadrant abdominal pain History of Present Illness: The patient is a 30 M who presents with left lower quadrant abdominal pain that has been getting worse over the past 5 days. Patient describes it as stabbing. Patient states it gets better when he drinks water. Patient states he has been having some constipation. Patient states he has been taking laxatives without any relief. Patient also admits to some urinary hesitancy and dysuria. Patient admits to nausea but denies any vomiting. Patient denies any hematuria. Patient denies any history of kidney stones. Patient states he was recently treated for gastritis but this feels different than his gastritis. Physical Examination: Vital signs are stable. Patient is afebrile. Patient in no acute distress. Oral mucosa is pink and moist. Neck is supple. Trachea is midline. There is no JVD. Heart was regular rate and rhythm. Lungs are clear and equal bilaterally. Abdomen is soft. Bowel sounds are normal. There is left lower quadrant tenderness. There is no rebound or guarding noted. Cranial nerves II through XII are intact. There are no focal motor or sensory deficits noted. Test Results: CBC, comprehensive metabolic profile, and urinalysis were obtained were all within normal limits. CT scan of the abdomen pelvis was obtained. There is no acute intra-abdominal abnormality. There is a large amount of stool in the colon. This was interpreted by the radiologist and reviewed by myself. Emergency Department Course and Treatment: Patient was given IV fluids here. Patient was given a bottle of mag citrate to take home with him. Patient was instructed to take [id number]-cyk-jwvwonf MiraLAX as needed. Patient was instructed to follow-up with his primary care physician in 3 to 5 days. Patient understood and was agreeable with the plan. All questions were answered. Disposition: Discharge home Impression: 1. Abdominal pain 2. Constipation This note was generated with [employer] dictation software. It may contain incorrect words, spelling, and punctuation that were not noted in review of the chart prior to signing ED Disposition - Plan for ED Patient: Disposition: Home or Assisted Living Diagnosis: Abdominal pain, Constipation Instructions: ED Constipation (Adult), ED Unknown Causes of Abdominal ... Referrals: Woo Lantigua MD [Primary Care Provider] - 3-5 Days
[2020-05-01 23:01] LABS: ALB/GLOB Ratio 1.4 RATIO (0.9-2.4); AST(SGOT) 15 U/L (15-37); Alanine Aminotransfer ALT/SGPT 21 U/L (16-61); Albumin, Serum 4.4 g/dL (3.2-5.0); Alkaline Phosphatase 64 U/L (45-117); Anion Gap 5 (5-15); BUN 10 mg/dL (7-18); Chloride 101 mmol/L (98-107); EST Glomerular Filtration Rate 94 mL/min (>60); Est Glom Filt Rate - Afr Amer 113 mL/min (>60); Globulin 3.1 g/dL (2.2-4.2); Glucose 109 mg/dL (74-106); Lipase 103 U/L (73-393); Potassium 3.6 mmol/L (3.5-5.1); Protein, Total 7.5 g/dL (6.4-8.2); Sodium Level 136 mmol/L (136-145)
[2020-05-01] MEDS: Magnesium Citrate 300 ML PO (23:18)
== END 2020-05-01 23:19 | disposition home or self-care (01) ==
PROVIDERS: Emergency Provider Emergency Medicine; PCP Family Medicine
DX: R10.32 Left lower quadrant pain (principal); K59.00 Constipation, unspecified; R30.0 Dysuria; R39.11 Hesitancy of micturition; R51.9 Headache, unspecified; R11.0 Nausea; Z79.899 Other long term (current) drug therapy; Z87.19 Personal history of other diseases of the digestive system
CPT/HCPCS: 74176; 80053; 81001; 83690; 85025; 96360; 99284; J7030

== ENCOUNTER 2021-02-15 15:20 | Emergency (ER) | payer MEDICAID, SELFPAY ==
[2021-02-15 15:21] VITALS: BP 147/92; PULSE 97; RESP 16; TEMP 36.4; O2SAT 98; BMI 31.3
--- NOTE | 2021-02-15 15:32 | ED.VIS.GI ---
HPI HPI - GI History of Present Illness Chief Complaint: Abd Pain Informant: patient Narrative Narrative: 3-day history right side abdominal pain states sharp in nature. No vomiting occasional nausea that is chronic he takes medications. History of gastritis on omeprazole. Normal bowel movements. States has daily bowel movements. Reports history of constipation. No abdominal surgery history. No fevers. No urine symptoms. Able to eat and drink with no worsening factors. He states this feels different than his gastritis. Patient states has itching to his face did take Benadryl. Denies pain. Prior similar symptoms: No PFSH PFSH Medical History (Updated 02/15/21 @ 16:[address] Blayne Canas DO) Anxiety Asthma Bipolar 1 disorder Depression History of alcohol abuse History of GERD History of substance abuse History of ulcer Schizoaffective disorder, bipolar type SOB (shortness of breath) Home Medications albuterol sulfate 90 mcg/actuation breath activated powder inhaler 2 inh INHALATION Q6H PRN #1 ea 01/19/20 [Rx Last Taken Unknown] ondansetron 4 mg PO Q8H PRN PRN #10 tab 01/22/20 [Rx Last Taken Unknown] trazodone 100 mg PO QHS 01/22/20 [History Last Taken Unknown] ziprasidone HCl 20 mg PO DAILY 01/22/20 [History Last Taken Unknown] lorazepam 0.5 mg PO TID PRN PRN #6 tab 03/13/20 [Rx Last Taken Unknown] fluoxetine 20 mg capsule 20 mg PO DAILY 03/30/20 [History Last Taken Unknown] Symbicort 160 mcg-4.5 mcg/actuation HFA aerosol inhaler 2 puff INHALATION BID #10.2 g NS 10/05/20 [Rx Last Taken Unknown] Allergy/AdvReac Type Severity Reaction Status Date / Time No Known Allergies Allergy Verified 02/15/21 15:22 Social History Smoking Status: Never smoker alcohol intake: former substance use type: does not use and other details: Former use of Marijuana ROS ROS ED Constitutional Constitutional ED: Denies chills, fever(s) or sweats Eyes Eyes: Denies change in vision ENT ENT ED: Denies dysphagia or sore throat Cardiovascular Cardiovascular: Denies chest pain, leg edema, palpitations or racing heartbeat Respiratory/Chest Respiratory/Chest: Denies cough, dyspnea or dyspnea on exertion Gastrointestinal Gastrointestinal: Reports abdominal pain and nausea; Denies diarrhea or vomiting Genitourinary Genitourinary ED: Denies dysuria, hematuria or urinary frequency Musculoskeletal Musculoskeletal: Denies back pain, extremity pain or neck pain Integumentary Denies rash or wounds Neurologic Neurologic: Denies headache(s), paresthesias or weakness EXAM Physical Exam Const Vital Signs: 02/15/21 15:21 02/15/21 17:20 Temperature 97.5 F L Temperature Source Temporal Pulse Rate 97 88 Respiratory Rate 16 16 Blood Pressure 147/92 H Blood Pressure Mean 110 Pulse Ox 98 97 Oxygen Delivery Method Room Air Positive well nourished and well developed General Appearance ED: well developed and NAD HEENT HEENT Narrative: Mild dry mucosal membranes normocephalic and atraumatic Eyes PERRL, EOMs intact bilaterally and conjunctivae normal General Eye ED: Yes normal appearance of both eyes Neck no lymphadenopathy and supple General: Negative for tenderness Chest Wall Chest: Negative for tenderness Resp normal respiratory effort and normal air movement Effort and Inspection: symmetric chest movement; Negative for respiratory distress Cardio regular rate, regular rhythm and no murmurs Peripheral Pulses: pulses 2+ throughout GI normal to inspection, nondistended, normoactive bowel sounds GI Narrative: Mild tenderness right side of abdomen. No guarding or rebound. Negative Pearce's or McBurney's tenderness. Auscultation: normoactive bowel sounds Palpation: Negative for guarding or rebound tenderness present Back/Spine no CVA tenderness and no thoracic nor lumbar tenderness Extremity normal to inspection General Extremety ED: Negative for edema or tenderness General Extremity: Negative for edema Neuro oriented x3 and no sensory deficits noted Sensorium / Orientation: awake and alert Skin no rashes or lesions noted and no wounds MDM MDM MDM Narrative Medical decision making narrative: Patient with a nonsurgical abdomen. Reported sharp pain for 3 days right side nonradicular. Discussed with patient sharp pains, will rule out testing for renal stones. He understands and agrees. Abdominal labs are all normal urine negative. CT scan also negative. Noting a normal appendix. My evaluation did see stool burden along the hepatic flexure this is a region of patient's pain. He has daily bowel movements. He is on stool softener discussed continuing stool softeners and monitoring his symptoms. He had endoscopy a year ago in [place] for his gastritis. He will follow-up with his PCP. All questions were answered. Lab Data Attestation: I reviewed the patient's lab results. Labs: Laboratory Results - last 24 hr 02/15/21 02/15/21 02/15/21 15:40 15:40 16:25 WBC 8.7 RBC 4.36 L Hgb 12.5 L Hct 38.2 L MCV 87.6 MCH 28.7 MCHC 32.7 RDW Std Deviation 42.2 RDW Coeff of Klaus 13.1 Plt Count 318 MPV 10.1 Immature Gran % (Auto) 0.500 Neut % (Auto) 58.6 Lymph % (Auto) 25.8 [place] % (Auto) 9.1 Eos % (Auto) 5.3 H Baso % (Auto) 0.7 Absolute Neuts (auto) 5.1 Absolute Lymphs (auto) 2.24 Nucleated RBC % 0 Sodium 139 Potassium 3.7 Chloride 105 Carbon Dioxide 27.0 Anion Gap 7 BUN 5 L Creatinine 0.99 Estim Creat Clear Calc 102.01 Est GFR (MDRD) Af Amer 114 Est GFR (MDRD) Non-Af 94 BUN/Creatinine Ratio 5.0 L Glucose 105 Calcium 8.8 Total Bilirubin 0.30 AST 13 L ALT 18 Alkaline Phosphatase 64 Total Protein 6.8 Albumin 3.6 Globulin 3.2 Albumin/Globulin Ratio 1.1 Lipase 118 Urine Color Yellow Urine Clarity Clear Urine pH 6.5 Ur Specific [place] 1.010 Urine Protein Negative Urine Glucose (UA) Normal Urine Ketones Negative Urine Occult Blood Negative Urine Nitrite Negative Urine Bilirubin Negative Urine Urobilinogen Normal Ur Leukocyte Esterase Negative Urine RBC 0 SEEN Urine WBC 0 SEEN Ur Squamous Epith Cells 0 SEEN Urine Bacteria 0 SEEN Urine Mucus 0 SEEN Radiography Diagnostic Testing: Clinical Impression(s) from Imaging Studies Abdomen/Pelvis CT 02/15/21 15:55 IMPRESSION: 1. No acute findings in the abdomen or pelvis. 2. Bilateral L5 spondylolysis. 3. Small L4-5 disc protrusion. Electronically Signed: Olga Lidia Neil MD at 16:18 EDT Tel , Service support , Discharge Plan Triage Chief Complaint: Abd Pain ED Provider: Blayne Canas Dx/Rx/DC Orders Clinical Impression: Abdominal pain Instructions: Abdominal Pain Prescriptions: No Action fluoxetine [Prozac] 20 mg capsule 20 mg PO DAILY RF: 0 budesonide-formoterol [Symbicort] 160-4.5 mcg/actuation HFA aerosol inhaler 2 puff INHALATION BID Qty: 10.2 RF: 6 ziprasidone HCl 20 MG capsule 20 mg PO DAILY RF: 0 trazodone 100 MG tablet 100 mg PO QHS RF: 0 ondansetron 4 MG tablet 4 mg PO Q8H PRN PRN (Reason: Nausea) Qty: 10 RF: 0 lorazepam 0.5 MG tablet 0.5 mg PO TID PRN PRN (Reason: Stress and or anxiety) Qty: 6 RF: 0 albuterol sulfate 90 mcg/actuation aerosol powdr breath activated 2 inh INHALATION Q6H PRN (Reason: shortness of breath or wheezing) Qty: 1 RF: 3 Primary Care Provider: Woo Lantigua Referrals: Woo Lantigua MD [Primary Care Provider] - 3-5 Days Activity Restrictions/Additional Instructions: Continue your stool softeners. Follow-up with your doctor. Disposition Disposition: Home, Self Care Discharge Date/Time: 02/15/21 17:21
[2021-02-15] MEDS: Ondansetron 4 MG/2 ML Vial IV (15:40)
[2021-02-15] MEDS: 0.9% Normal Saline 1,000 ML 1000 ML IV (15:40)
[2021-02-15 15:49] LABS: Absolute Lymphocyte Count 2.24 X10^3/uL (0.83-4.51); Absolute Neutrophil Count 5.1 X10^3/uL (2.0-7.7); Basophil# 0.06 X10^3/uL; Basophil% 0.7 % (0-1); Eosinophil# 0.46 X10^3/uL; Eosinophils% 5.3 % (0-5); Hematocrit 38.2 % (40-54); Hemoglobin 12.5 g/dL (13.0-16.5); Lymphocyte # 2.24 X10^3/ul (0.83-4.51); Lymphocyte % 25.8 % (19-41); Mean Corp Hgb Conc 32.7 g/dL (32-36); Mean Corpuscular Hgb 28.7 pg (27.0-32.0); Mean Corpuscular Volume 87.6 fL (80-94); Mean Platelet Vol. 10.1 fl (6.2-12.0); Monocyte# 0.79 X10^3/uL; Monocyte% 9.1 % (0-10); NRBC Flagged by Analyzer 0 % (0-5); Neutrophil # 5.09 X10^3/uL (2.7-7.7); Neutrophil % 58.6 % (47-70); Platelet Count 318 K/mm3 (150-450); RBC Distribution Width CV 13.1 % (11.6-14.6); RBC Distribution Width SD 42.2 fl (35.1-43.9); Red Blood Count 4.36 M/mm3 (4.6-6.2); White Blood Count 8.7 K/mm3 (4.4-11.0)
--- NOTE | 2021-02-15 15:55 | CT_ITS ---
EXAM: CT ABDOMEN AND PELVIS WITHOUT INTRAVENOUS CONTRAST CLINICAL INDICATION: right side pain TECHNIQUE: Helically acquired images were obtained of the abdomen and pelvis without intravenous contrast. This CT exam was performed using one or more of the following dose reduction techniques: automated exposure control, adjustment of the mA and/or kV according to patient size, and/or use of iterative reconstruction technique. This report was created using [employer] report generation technology. COMPARISON: 06/21/2019. FINDINGS: LOWER THORAX: Unremarkable. Lung bases are clear. No cardiomegaly. No significant pericardial effusion. ABDOMEN: LIVER: Unremarkable. Homogeneous. GALLBLADDER AND BILE DUCTS: Unremarkable. No calcified gallstones. No gallbladder distention or wall edema. No intra- or extrahepatic biliary ductal dilation. PANCREAS: Unremarkable. No focal cystic mass. SPLEEN: Unremarkable. Normal size without focal cystic or solid mass. ADRENALS: Unremarkable. No nodules. KIDNEYS AND URETERS: Unremarkable. Normal renal size and position. No stones or hydronephrosis. STOMACH AND BOWEL: Unremarkable. No stomach or bowel distention. No focal inflammatory change. Stool burden is moderate. PELVIS: APPENDIX: No evidence of acute appendicitis. Normal visualized appendix. BLADDER: Unremarkable. REPRODUCTIVE: Unremarkable as visualized. No mass. ABDOMEN and PELVIS: INTRAPERITONEAL SPACE: Unremarkable. No ascites or other fluid collection. No free air. BONES/JOINTS: Bilateral L5 spondylolysis. No spondylolisthesis. Small L4-5 disc protrusion. No suspicious lytic or blastic abnormality. SOFT TISSUES: Unremarkable. No discrete abdominal or pelvic wall hernia. VASCULATURE: Unremarkable. Abdominal aorta is normal in caliber. LYMPH NODES: Unremarkable. No enlarged lymph nodes. CT/Abdomen/Pelvis without Cont IMPRESSION: 1. No acute findings in the abdomen or pelvis. 2. Bilateral L5 spondylolysis. 3. Small L4-5 disc protrusion. Electronically Signed: Olga Lidia Neil MD at 16:18 EDT Tel , Service support ,
[2021-02-15 16:04] LABS: ALB/GLOB Ratio 1.1 RATIO (0.9-2.4); AST(SGOT) 13 U/L (15-37); Alanine Aminotransfer ALT/SGPT 18 U/L (16-61); Albumin, Serum 3.6 g/dL (3.2-5.0); Alkaline Phosphatase 64 U/L (45-117); Anion Gap 7 (5-15); BUN 5 mg/dL (7-18); Calcium,Total 8.8 mg/dL (8.5-10.1); Chloride 105 mmol/L (98-107); Creatinine, Serum 0.99 mg/dL (0.70-1.30); EST Glomerular Filtration Rate 94 mL/min (>60); Est Glom Filt Rate - Afr Amer 114 mL/min (>60); Estimated Creatinine Clearance 102.01 ml/min; Globulin 3.2 g/dL (2.2-4.2); Glucose 105 mg/dL (74-106); Lipase 118 U/L (73-393); Potassium 3.7 mmol/L (3.5-5.1); Protein, Total 6.8 g/dL (6.4-8.2); Sodium Level 139 mmol/L (136-145)
[2021-02-15 16:39] LABS: Bacteria 0 SEEN /hpf (None Seen); Mucous, Urine 0 SEEN /hpf (<or=2+); Red Blood Cells-Urine 0 SEEN /hpf (0-5); Squamous Epithelial Cells - UA 0 SEEN /hpf (0-5); White Blood Cells 0 SEEN /hpf (0-5)
[2021-02-15 16:45] LABS: Color, Urine Yellow (Yellow); Glucose, Dipstick Normal (Normal); Ketone-Dipstick Negative (Negative); Leukocyte Esterase-Dipstick Negative /ul (Negative); Nitrite-Dipstick Negative (Negative); Occult Blood-Urine Negative /ul (Negative); Protein-Dipstick Negative (Negative); Urine Bilirubin Dipstick Negative (Negative); Urine Clarity Clear (Clear); Urine Urobilinogen Normal (Normal); Urine pH 6.5 (5.0 - 8.0)
[2021-02-15 17:20] VITALS: PULSE 88; RESP 16; O2SAT 97
== END 2021-02-15 17:21 | disposition home or self-care (01) ==
PROVIDERS: Emergency Provider Emergency Medicine; PCP Family Medicine
DX: R10.9 Unspecified abdominal pain (principal); R11.0 Nausea; J45.909 Unspecified asthma, uncomplicated; K21.9 Gastro-esophageal reflux disease without esophagitis; F25.0 Schizoaffective disorder, bipolar type; F41.9 Anxiety disorder, unspecified; Z79.51 Long term (current) use of inhaled steroids; Z79.899 Other long term (current) drug therapy; Z87.19 Personal history of other diseases of the digestive system
CPT/HCPCS: 74176; 80053; 81001; 83690; 85025; 96361; 96374; 99283; J7030; J2405

== ENCOUNTER 2021-03-08 01:01 | Emergency (ER) | payer MEDICAID, SELFPAY ==
[2021-03-08 01:02] VITALS: BP 143/89; PULSE 93; RESP 18; TEMP 36.6; O2SAT 96; BMI 31.8
--- NOTE | 2021-03-08 01:12 | EX.ED.DYSGE1 ---
HPI History of Present Illness Chief Complaint: Anxiety Informant: patient Narrative Narrative: Patient Jw with exacerbation of chronic anxiety. He is on trazodone, Geodon and Vistaril for this. He sees a psychiatrist. He has used Ativan before but it has been recommended he not be on this long-term. There evidently is a history of some alcohol and substance abuse also. He states his anxiety is really peak today. Sometimes when he has more stomach problems his anxiety peaks. He took his meds but they did not seem to sit well in his stomach and so that caused anxiety. But he is not nauseated. He is able to eat and drink. He has no trouble swallowing. He states he is just pacing up and down the street. He feels a fluttering. This is typical of anxiety for him. He is not having pain. He is not suicidal or homicidal. [facility] Medical History Anxiety Asthma Bipolar 1 disorder Depression History of alcohol abuse History of GERD History of substance abuse History of ulcer Schizoaffective disorder, bipolar type SOB (shortness of breath) Home Medications ondansetron 4 mg PO Q8H PRN PRN #10 tab 01/22/20 [Rx Last Taken Unknown] trazodone 100 mg PO QHS 01/22/20 [History Last Taken Unknown] ziprasidone HCl 20 mg PO DAILY 01/22/20 [History Last Taken Unknown] lorazepam 0.5 mg PO TID PRN PRN #6 tab 03/13/20 [Rx Last Taken Unknown] fluoxetine 20 mg capsule 20 mg PO DAILY 03/30/20 [History Last Taken Unknown] Symbicort 160 mcg-4.5 mcg/actuation HFA aerosol inhaler 2 inh INHALATION BID #10.2 g NS 02/20/21 [Rx Last Taken Unknown] albuterol sulfate 90 mcg/actuation breath activated powder inhaler 2 inh INHALATION Q6H PRN #1 ea 02/20/21 [Rx Last Taken Unknown] Allergy/AdvReac Type Severity Reaction Status Date / Time No Known Allergies Allergy Verified 03/08/21 01:05 Social History Smoking Status: Never smoker alcohol intake: former substance use type: does not use and other details: Former use of Marijuana ROS ROS ED Constitutional Constitutional ED: Denies fever(s) Eyes Eyes: Denies blurry vision, change in vision or diplopia ENT ENT ED: Denies rhinorrhea Cardiovascular Cardiovascular: Reports palpitations and racing heartbeat; Denies chest pain Respiratory/Chest Respiratory/Chest: Denies dyspnea Gastrointestinal Gastrointestinal: Denies nausea or vomiting Musculoskeletal Musculoskeletal: Denies myalgias Integumentary Denies rash Neurologic Neurologic: Denies paresthesias or weakness Psychiatric Psychiatric: Reports anxiety; Denies suicidal ideation or suicidal thoughts Allergic/Immunologic Allergic/Immunologic ED: Denies urticaria EXAM Physical Exam Const Vital Signs: 03/08/21 01:02 Temperature 97.8 F Temperature Source Oral Pulse Rate 93 Respiratory Rate 18 Blood Pressure 143/89 H Blood Pressure Mean 107 Pulse Ox 96 Oxygen Delivery Method Room Air Positive well nourished and well developed General Appearance ED: well developed and NAD HEENT Negative for trauma Eyes General Eye ED: Negative for pale conjunctiva Neck no JVD Resp normal respiratory effort and clear to auscultation bilaterally Auscultation: Negative for rales, rhonchi or wheezes Cardio regular rate and regular rhythm GI non-tender and non-distended Auscultation: normoactive bowel sounds Palpation: soft Back/Spine no CVA tenderness Neuro oriented x3 Neuro Narrative: Patient has stable gait. Normal coordination. Normal sensation. Sensorium / Orientation: alert Psych Psych Narrative: Patient is a bit anxious. When I first see him he was walking in [place] outside the room. He was looking for the bathroom. But he has a stable gait. He is not tearful. He is not suicidal or homicidal. He is not agitated. He is cooperative. Attitude: No agitated Mood & Affect: anxious Skin no rashes or lesions noted MDM MDM MDM Narrative Medical decision making narrative: Patient is on appropriate meds. I will give him Ativan here. He will follow up with his psychiatrist. He has a person to drive him home. Discharge Plan Triage Chief Complaint: Anxiety ED Provider: Stu Loving Dx/Rx/DC Orders Clinical Impression: Anxiety Instructions: ED Panic Attack Prescriptions: No Action fluoxetine [Prozac] 20 mg capsule 20 mg PO DAILY RF: 0 ziprasidone HCl 20 MG capsule 20 mg PO DAILY RF: 0 trazodone 100 MG tablet 100 mg PO QHS RF: 0 ondansetron 4 MG tablet 4 mg PO Q8H PRN PRN (Reason: Nausea) Qty: 10 RF: 0 lorazepam 0.5 MG tablet 0.5 mg PO TID PRN PRN (Reason: Stress and or anxiety) Qty: 6 RF: 0 albuterol sulfate 90 mcg/actuation aerosol powdr breath activated 2 inh INHALATION Q6H PRN (Reason: shortness of breath or wheezing) Qty: 1 RF: 3 budesonide-formoterol [Symbicort] 160-4.5 mcg/actuation HFA aerosol inhaler 2 inh INHALATION BID Qty: 10.2 RF: 6 Primary Care Provider: Woo Lantigua Referrals: Woo Lantigua MD [Primary Care Provider] - 3-5 Days Activity Restrictions/Additional Instructions: Follow-up with your psychiatrist as soon as possible. Disposition Disposition: Home, Self Care Discharge Date/Time: 03/08/21 01:36
[2021-03-08] MEDS: LORazepam 1 MG Tablet 2 MG PO (01:34)
== END 2021-03-08 01:36 | disposition home or self-care (01) ==
LOC: ED 01:29
PROVIDERS: Emergency Provider Emergency Medicine; PCP Family Medicine
DX: F41.9 Anxiety disorder, unspecified (principal); F25.0 Schizoaffective disorder, bipolar type; J45.909 Unspecified asthma, uncomplicated; K21.9 Gastro-esophageal reflux disease without esophagitis; Z79.51 Long term (current) use of inhaled steroids; Z79.899 Other long term (current) drug therapy
CPT/HCPCS: 99283

== ENCOUNTER 2021-03-21 18:15 | Emergency (ER) | payer MEDICAID, SELFPAY ==
[2021-03-21 18:16] VITALS: BP 107/93; PULSE 110; RESP 18; TEMP 36.6; O2SAT 100; BMI 29.7
--- NOTE | 2021-03-21 18:54 | CT_ITS ---
STUDY: CT ABDOMEN AND PELVIS WITH CONTRAST REASON FOR EXAM: Male, 31 years old. Right lower quadrant pain and nausea for 4 days. History of reflux disease. RADIATION DOSAGE (If Supplied By Facility): CTDIvol = ( 16.77 ) mGy, DLP = ( 1103.38 ) mGycm TECHNIQUE: Transaxial images were obtained from the dome of the diaphragm to the symphysis pubis without oral contrast. IV 100mL Isovue-370 was administered. Sagittal and coronal images were reconstructed. Individualized dose optimization techniques were used for this CT. COMPARISON: 02/15/2021 FINDINGS: The visualized lung bases are unremarkable. The visualized portions of the heart are within normal limits. Normal liver. Normal gallbladder and extrahepatic biliary system. Normal spleen. Normal pancreas. Normal bilateral adrenal glands. Normal right kidney. Normal left kidney. Normal bilateral ureters. Normal visualized stomach. Normal small intestine. And feces throughout the colon without mass or obstruction. The appendix is visualized and appears normal. Normal abdominal aorta. Normal inferior vena cava. Normal retroperitoneum. Normal urinary bladder. Normal prostate. No pelvic lymphadenopathy. No free air or free fluid is seen within the peritoneal cavity. Umbilical hernia of omental fat. Stable osseous structures. CT/Abdomen/Pelvis W IV Cont ONLY IMPRESSION: 1. No acute intra-abdominal or pelvic process. 2. No change from prior study. Electronically Signed: Connor Chau DO at 20:30 EST Tel [phone], Service support ,
--- NOTE | 2021-03-21 18:55 | ED.VIS.GI ---
HPI HPI - GI History of Present Illness Chief Complaint: Abd Pain Narrative Narrative: 31-year-old male presenting with right lower quadrant pain. He states he is had this for 3 days. Patient states it gradually built up over time. He has nausea and has had trouble holding down his medications for mental health. He denies fever or chills. He denies urinary complaints or diarrhea. He does admit to constipation. Denies any abdominal surgeries in the past. Patient states that he has had a history of gastritis which has been going on for about a month. He states he was seen by his primary care physician and referred to a GI doctor but states that he does not know who that is. [facility] Medical History Anxiety Asthma Bipolar 1 disorder Depression History of alcohol abuse History of GERD History of substance abuse History of ulcer Schizoaffective disorder, bipolar type SOB (shortness of breath) Home Medications trazodone 100 mg PO QHS 01/22/20 [History Last Taken Unknown] ziprasidone HCl 20 mg PO DAILY 01/22/20 [History Last Taken Unknown] lorazepam 0.5 mg PO TID PRN PRN #6 tab 03/13/20 [Rx Last Taken Unknown] Symbicort 160 mcg-4.5 mcg/actuation HFA aerosol inhaler 2 inh INHALATION BID #10.2 g NS 02/20/21 [Rx Last Taken Unknown] albuterol sulfate 90 mcg/actuation breath activated powder inhaler 2 inh INHALATION Q6H PRN #1 ea 02/20/21 [Rx Last Taken Unknown] Allergy/AdvReac Type Severity Reaction Status Date / Time No Known Allergies Allergy Verified 03/21/21 18:17 Social History Smoking Status: Never smoker alcohol intake: former substance use type: does not use and other details: Former use of Marijuana ROS ROS ED Constitutional Constitutional ED: Denies fever(s) ENT ENT ED: Denies rhinorrhea or sore throat Cardiovascular Cardiovascular: Denies chest pain or palpitations Respiratory/Chest Respiratory/Chest: Denies cough or dyspnea Gastrointestinal Gastrointestinal: Reports abdominal pain and nausea; Denies constipation, diarrhea or vomiting Genitourinary Genitourinary ED: Denies dysuria or hematuria Musculoskeletal Musculoskeletal: Denies arthralgias or myalgias Integumentary Denies abscess or rash Neurologic Neurologic: Denies headache(s) or paresthesias Psychiatric Psychiatric: Denies anxiety or depression EXAM Physical Exam Const Vital Signs: 03/21/21 18:16 Temperature 98 F Temperature Source Temporal Pulse Rate 110 H Respiratory Rate 18 Blood Pressure 107/93 H Blood Pressure Mean 97 Pulse Ox 100 Oxygen Delivery Method Room Air Positive well nourished General Appearance ED: NAD; Negative for pallor HEENT Reports moist mucous membranes normocephalic and atraumatic Eyes PERRL and EOMs intact bilaterally Resp normal respiratory effort and clear to auscultation bilaterally Cardio regular rate and regular rhythm GI non-distended Palpation: soft and tender RLQ Back/Spine no CVA tenderness Neuro CN's II-XII intact bilaterally Sensorium / Orientation: alert, oriented to person, oriented to place and oriented to time Psych mental status grossly normal Skin General Skin Exam: Negative for jaundice or pallor MDM MDM MDM Narrative Medical decision making narrative: Patient presenting with right lower quadrant abdominal pain. He has not had fever, chills. He does complain of some nausea and some constipation. Patient CBC, CMP, lipase all within normal limits. Urinalysis negative for infection. Obtain CT of the abdomen pelvis with IV contrast which shows no acute intra-abdominal abnormality. Since patient does complain of constipation and there appears to be a stool burden on his CT I will give him magnesium citrate. I also given follow-up with Dr. Herndon as this appears to be a chronic issue. Patient is amenable to this. He is discharged home in stable condition. Impression: 1. Abdominal pain Lab Data Attestation: I reviewed the patient's lab results. Labs: Laboratory Results - last 24 hr 03/21/21 03/21/21 03/21/21 19:10 19:10 19:15 WBC 9.7 RBC 4.65 Hgb 13.4 Hct 39.4 L MCV 84.7 MCH 28.8 MCHC 34.0 RDW Std Deviation 40.2 RDW Coeff of Klaus 13.1 Plt Count 372 MPV 10.2 Immature Gran % (Auto) 0.500 Neut % (Auto) 71.2 H Lymph % (Auto) 19.8 [place] % (Auto) 6.6 Eos % (Auto) 1.5 Baso % (Auto) 0.4 Absolute Neuts (auto) 6.9 Absolute Lymphs (auto) 1.92 Nucleated RBC % 0 Sodium 139 Potassium 4.2 Chloride 107 Carbon Dioxide 25.0 Anion Gap 7 BUN 10 Creatinine 0.87 Estim Creat Clear Calc 116.08 Est GFR (MDRD) Af Amer 132 Est GFR (MDRD) Non-Af 109 BUN/Creatinine Ratio 11.4 Glucose 99 Calcium 9.6 Total Bilirubin 0.30 AST 11 L ALT 15 L Alkaline Phosphatase 66 Total Protein 7.8 Albumin 4.1 Globulin 3.7 Albumin/Globulin Ratio 1.1 Lipase 152 Urine Color Straw Urine Clarity Clear Urine pH 8.0 Ur Specific [place] 1.025 Urine Protein Negative Urine Glucose (UA) Normal Urine Ketones Negative Urine Occult Blood Negative Urine Nitrite Negative Urine Bilirubin Negative Urine Urobilinogen Normal Ur Leukocyte Esterase Negative Urine RBC 0 SEEN Urine WBC 0 SEEN Ur Squamous Epith Cells 0 SEEN Urine Bacteria 0 SEEN Urine Mucus 0 SEEN Radiography Diagnostic Testing: Clinical Impression(s) from Imaging Studies Abdomen/Pelvis CT 03/21/21 18:54 IMPRESSION: 1. No acute intra-abdominal or pelvic process. 2. No change from prior study. Electronically Signed: Connor Chau DO at 20:30 EST Tel [phone], Service support , Discharge Plan Triage Chief Complaint: Abd Pain ED Provider: Dorian Cota Dx/Rx/DC Orders Instructions: ED Constipation (Adult), ED Abdominal Pain Unkn Cause Male... Prescriptions: No Action ziprasidone HCl 20 MG capsule 20 mg PO DAILY RF: 0 trazodone 100 MG tablet 100 mg PO QHS RF: 0 lorazepam 0.5 MG tablet 0.5 mg PO TID PRN PRN (Reason: Stress and or anxiety) Qty: 6 RF: 0 albuterol sulfate 90 mcg/actuation aerosol powdr breath activated 2 inh INHALATION Q6H PRN (Reason: shortness of breath or wheezing) Qty: 1 RF: 3 budesonide-formoterol [Symbicort] 160-4.5 mcg/actuation HFA aerosol inhaler 2 inh INHALATION BID Qty: 10.2 RF: 6 Primary Care Provider: Woo Lantigua Referrals: Vishnu Herndon DO [STAFF PHYSICIAN] - As soon as possible Woo Lantigua MD [Primary Care Provider] - Disposition Disposition: Home, Self Care Discharge Date/Time: 03/21/21 21:04
[2021-03-21] MEDS: Ondansetron 4 MG/2 ML Vial IV (19:22)
[2021-03-21] MEDS: Morphine 4 MG/ML Syringe IV ×2 (19:22→20:08)
[2021-03-21 19:23] LABS: Bacteria 0 SEEN /hpf (None Seen); Mucous, Urine 0 SEEN /hpf (<or=2+); Red Blood Cells-Urine 0 SEEN /hpf (0-5); Squamous Epithelial Cells - UA 0 SEEN /hpf (0-5); White Blood Cells 0 SEEN /hpf (0-5)
[2021-03-21 19:27] LABS: Absolute Lymphocyte Count 1.92 X10^3/uL (0.83-4.51); Absolute Neutrophil Count 6.9 X10^3/uL (2.0-7.7); Basophil# 0.04 X10^3/uL; Basophil% 0.4 % (0-1); Eosinophil# 0.15 X10^3/uL; Eosinophils% 1.5 % (0-5); Hematocrit 39.4 % (40-54); Hemoglobin 13.4 g/dL (13.0-16.5); Lymphocyte # 1.92 X10^3/ul (0.83-4.51); Lymphocyte % 19.8 % (19-41); Mean Corpuscular Hgb 28.8 pg (27.0-32.0); Mean Corpuscular Volume 84.7 fL (80-94); Mean Platelet Vol. 10.2 fl (6.2-12.0); Monocyte# 0.64 X10^3/uL; Monocyte% 6.6 % (0-10); NRBC Flagged by Analyzer 0 % (0-5); Neutrophil # 6.89 X10^3/uL (2.7-7.7); Neutrophil % 71.2 % (47-70); Platelet Count 372 K/mm3 (150-450); RBC Distribution Width CV 13.1 % (11.6-14.6); RBC Distribution Width SD 40.2 fl (35.1-43.9); Red Blood Count 4.65 M/mm3 (4.6-6.2); White Blood Count 9.7 K/mm3 (4.4-11.0)
[2021-03-21 19:34] LABS: Color, Urine Straw (Yellow); Glucose, Dipstick Normal (Normal); Ketone-Dipstick Negative (Negative); Leukocyte Esterase-Dipstick Negative /ul (Negative); Nitrite-Dipstick Negative (Negative); Occult Blood-Urine Negative /ul (Negative); Protein-Dipstick Negative (Negative); Specific Gravity, Urine 1.025 (1.002-1.030); Urine Bilirubin Dipstick Negative (Negative); Urine Clarity Clear (Clear); Urine Urobilinogen Normal (Normal)
[2021-03-21 19:44] LABS: ALB/GLOB Ratio 1.1 RATIO (0.9-2.4); AST(SGOT) 11 U/L (15-37); Alanine Aminotransfer ALT/SGPT 15 U/L (16-61); Albumin, Serum 4.1 g/dL (3.2-5.0); Alkaline Phosphatase 66 U/L (45-117); Anion Gap 7 (5-15); BUN 10 mg/dL (7-18); BUN/Creat Ratio 11.4 RATIO (10-20); Calcium,Total 9.6 mg/dL (8.5-10.1); Chloride 107 mmol/L (98-107); Creatinine, Serum 0.87 mg/dL (0.70-1.30); EST Glomerular Filtration Rate 109 mL/min (>60); Est Glom Filt Rate - Afr Amer 132 mL/min (>60); Estimated Creatinine Clearance 116.08 ml/min; Globulin 3.7 g/dL (2.2-4.2); Glucose 99 mg/dL (74-106); Lipase 152 U/L (73-393); Potassium 4.2 mmol/L (3.5-5.1); Protein, Total 7.8 g/dL (6.4-8.2); Sodium Level 139 mmol/L (136-145)
[2021-03-21] MEDS: Magnesium Citrate 300 ML PO (21:03)
== END 2021-03-21 21:04 | disposition home or self-care (01) ==
PROVIDERS: Emergency Provider Student in an Organized Health Care Education/Training Program; PCP Family Medicine
DX: R10.31 Right lower quadrant pain (principal); K59.00 Constipation, unspecified; F25.0 Schizoaffective disorder, bipolar type; F41.9 Anxiety disorder, unspecified; J45.909 Unspecified asthma, uncomplicated; K21.9 Gastro-esophageal reflux disease without esophagitis; Z79.51 Long term (current) use of inhaled steroids; Z79.899 Other long term (current) drug therapy; Z87.19 Personal history of other diseases of the digestive system
CPT/HCPCS: 74177; 80053; 81001; 83690; 85025; 96374; 96375; 96376; 99284; Q9967; A4216; J2405

== ENCOUNTER 2021-03-24 04:41 | Emergency (ER) | payer MEDICAID, SELFPAY ==
[2021-03-24 04:41] VITALS: BP 150/94; PULSE 89; RESP 18; TEMP 36; O2SAT 100
--- NOTE | 2021-03-24 05:20 | EX.ED.DYSGE1 ---
HPI History of Present Illness Chief Complaint: Abd Pain Narrative Narrative: Patient is a 31-year-old male who states he has a history of gastritis. He states that he has medication at home to help control this but over the past 5 days has felt like he has been having a flare. He states it is at the point where he cannot eat or drink anything secondary to the pain it causes. He states that he has not been able to take his prescription medications either because of this and as he cannot get his symptoms under control at home presents for evaluation [facility] Medical History Anxiety Asthma Bipolar 1 disorder Depression History of alcohol abuse History of GERD History of substance abuse History of ulcer Schizoaffective disorder, bipolar type SOB (shortness of breath) Home Medications trazodone 100 mg PO QHS 01/22/20 [History Last Taken Unknown] ziprasidone HCl 20 mg PO DAILY 01/22/20 [History Last Taken Unknown] lorazepam 0.5 mg PO TID PRN PRN #6 tab 03/13/20 [Rx Last Taken Unknown] Symbicort 160 mcg-4.5 mcg/actuation HFA aerosol inhaler 2 inh INHALATION BID #10.2 g NS 02/20/21 [Rx Last Taken Unknown] albuterol sulfate 90 mcg/actuation breath activated powder inhaler 2 inh INHALATION Q6H PRN #1 ea 02/20/21 [Rx Last Taken Unknown] famotidine 20 mg PO BID 03/24/21 [History Last Taken Unknown] omeprazole 40 mg PO DAILY 03/24/21 [History Last Taken Unknown] Allergy/AdvReac Type Severity Reaction Status Date / Time No Known Allergies Allergy Verified 03/21/21 18:17 Social History Smoking Status: Never smoker alcohol intake: former substance use type: does not use and other details: Former use of Marijuana ROS ROS ED Constitutional Constitutional ED: Denies chills or fever(s) ENT ENT ED: Reports sore throat Cardiovascular Cardiovascular: Denies chest pain Respiratory/Chest Respiratory/Chest: Denies cough or dyspnea Gastrointestinal Gastrointestinal: Reports abdominal pain and nausea; Denies diarrhea or vomiting Genitourinary Genitourinary ED: Denies dysuria Musculoskeletal Musculoskeletal: Denies myalgias Integumentary Denies rash Neurologic Neurologic: Denies headache(s) Psychiatric Psychiatric: Reports anxiety Hematologic/Lymphatic Hematologic/Lymphatic: Denies easy bleeding or easy bruising EXAM Physical Exam Const Vital Signs: 03/24/21 04:41 Temperature 96.8 F L Temperature Source Temporal Pulse Rate 89 Respiratory Rate 18 Blood Pressure 150/94 H Blood Pressure Mean 112 Pulse Ox 100 Oxygen Delivery Method Room Air Positive well nourished and well developed General Appearance ED: well developed HEENT Reports moist mucous membranes HEENT Narrative: No airway edema or compromise Eyes PERRL and EOMs intact bilaterally General Eye ED: Negative for scleral icterus Neck supple Neck Narrative: No crepitance noted Resp normal respiratory effort and clear to auscultation bilaterally Cardio regular rate and regular rhythm Rate: other Other Details: Radial pulses are +2-4 bilaterally are equal and symmetric GI non-distended GI Narrative: Abdomen is soft and nondistended with normoactive bowel sounds. There is mild diffuse pain with palpation but no voluntary guarding or rigidity Auscultation: normoactive bowel sounds Palpation: soft Extremity normal to inspection Neuro oriented x3 and CN's II-XII intact bilaterally Sensorium / Orientation: alert Motor Exam: strength 5/5 throughout Psych Mood & Affect: anxious Skin no rashes or lesions noted MDM MDM MDM Narrative Medical decision making narrative: Patient presented to the ER mildly hypertensive but otherwise afebrile with stable vital signs. He had a history of gastritis and his history of present illness and exam is most consistent with this. Therefore I felt no need for imaging studies. Basic labs were obtained which showed a slight leukocytosis of 12.2 but I feel this is a stress response. The remainder of his labs reveal no clinically significant finding. Patient was given a GI cocktail as well as Ativan and Haldol. On reevaluation he does report mild improvement of his symptoms. We discussed possible IV Protonix but he states he is taken multiple PPIs throughout the day and does not want this provided. Therefore at this time as blood work reveals no clinically significant findings in his abdomen remains soft and nonsurgical I do not feel there is need for further evaluation and patient can be discharged at this time. Lab Data Attestation: I reviewed the patient's lab results. Labs: Laboratory Results - last 24 hr 03/24/21 03/24/21 05:20 05:20 WBC 12.2 H RBC 4.59 L Hgb 13.1 Hct 38.5 L MCV 83.9 MCH 28.5 MCHC 34.0 RDW Std Deviation 39.5 RDW Coeff of Klaus 13.0 Plt Count 349 MPV 10.2 Immature Gran % (Auto) 0.300 Neut % (Auto) 68.4 Lymph % (Auto) 22.9 Breathitt % (Auto) 7.4 Eos % (Auto) 0.6 Baso % (Auto) 0.4 Absolute Neuts (auto) 8.4 H Absolute Lymphs (auto) 2.80 Nucleated RBC % 0 Sodium 137 Potassium 3.3 L Chloride 101 Carbon Dioxide 25.0 Anion Gap 11 BUN 8 Creatinine 0.80 Estim Creat Clear Calc 126.23 Est GFR (MDRD) Af Amer 147 Est GFR (MDRD) Non-Af 121 BUN/Creatinine Ratio 10.1 Glucose 96 Calcium 9.2 Total Bilirubin 0.30 Direct Bilirubin 0.12 AST 15 ALT 17 Alkaline Phosphatase 63 Total Protein 7.7 Albumin 4.0 Globulin 3.7 Lipase 173 Discharge Plan Triage Chief Complaint: Abd Pain ED Provider: Jose De Jesus Mccoy Dx/Rx/DC Orders Clinical Impression: Gastritis, Anxiety Instructions: ED Gastritis (Adult) Prescriptions: No Action ziprasidone HCl 20 MG capsule 20 mg PO DAILY RF: 0 trazodone 100 MG tablet 100 mg PO QHS RF: 0 lorazepam 0.5 MG tablet 0.5 mg PO TID PRN PRN (Reason: Stress and or anxiety) Qty: 6 RF: 0 omeprazole 40 mg capsule,delayed release(DR/EC) 40 mg PO DAILY RF: 0 famotidine 20 mg tablet 20 mg PO BID RF: 0 albuterol sulfate 90 mcg/actuation aerosol powdr breath activated 2 inh INHALATION Q6H PRN (Reason: shortness of breath or wheezing) Qty: 1 RF: 3 budesonide-formoterol [Symbicort] 160-4.5 mcg/actuation HFA aerosol inhaler 2 inh INHALATION BID Qty: 10.2 RF: 6 Primary Care Provider: Woo Lantigua Referrals: Woo Lantigua MD [Primary Care Provider] - Disposition Disposition: Home, Self Care
[2021-03-24] MEDS: 0.9% Normal Saline 1,000 ML 999 ML IV (05:24)
[2021-03-24] MEDS: Haloperidol Lactate 5 MG/ML Vial IV (05:24)
[2021-03-24 05:33] LABS: Absolute Neutrophil Count 8.4 X10^3/uL (2.0-7.7); Basophil# 0.05 X10^3/uL; Basophil% 0.4 % (0-1); Eosinophil# 0.07 X10^3/uL; Eosinophils% 0.6 % (0-5); Hematocrit 38.5 % (40-54); Hemoglobin 13.1 g/dL (13.0-16.5); Lymphocyte % 22.9 % (19-41); Mean Corpuscular Hgb 28.5 pg (27.0-32.0); Mean Corpuscular Volume 83.9 fL (80-94); Mean Platelet Vol. 10.2 fl (6.2-12.0); Monocyte# 0.91 X10^3/uL; Monocyte% 7.4 % (0-10); NRBC Flagged by Analyzer 0 % (0-5); Neutrophil # 8.36 X10^3/uL (2.7-7.7); Neutrophil % 68.4 % (47-70); Platelet Count 349 K/mm3 (150-450); RBC Distribution Width SD 39.5 fl (35.1-43.9); Red Blood Count 4.59 M/mm3 (4.6-6.2); White Blood Count 12.2 K/mm3 (4.4-11.0)
[2021-03-24] MEDS: Mag Hydrox/Al Hydrox/Simeth 30 ML UDC PO (05:44)
[2021-03-24 05:49] LABS: AST(SGOT) 15 U/L (15-37); Alanine Aminotransfer ALT/SGPT 17 U/L (16-61); Alkaline Phosphatase 63 U/L (45-117); Anion Gap 11 (5-15); BUN 8 mg/dL (7-18); BUN/Creat Ratio 10.1 RATIO (10-20); Bilirubin, Direct 0.12 mg/dL (0.00-0.30); Calcium,Total 9.2 mg/dL (8.5-10.1); Chloride 101 mmol/L (98-107); EST Glomerular Filtration Rate 121 mL/min (>60); Est Glom Filt Rate - Afr Amer 147 mL/min (>60); Estimated Creatinine Clearance 126.23 ml/min; Globulin 3.7 g/dL (2.2-4.2); Glucose 96 mg/dL (74-106); Lipase 173 U/L (73-393); Potassium 3.3 mmol/L (3.5-5.1); Protein, Total 7.7 g/dL (6.4-8.2); Sodium Level 137 mmol/L (136-145)
[2021-03-24 06:56] VITALS: BP 134/78; PULSE 70; RESP 16; O2SAT 100
[2021-03-24] MEDS: LORazepam 2 MG/ML Syringe IV (06:56)
== END 2021-03-24 06:57 | disposition home or self-care (01) ==
PROVIDERS: Emergency Provider Emergency Medicine; PCP Family Medicine
DX: K29.70 Gastritis, unspecified, without bleeding (principal); F41.9 Anxiety disorder, unspecified; J45.909 Unspecified asthma, uncomplicated; F25.0 Schizoaffective disorder, bipolar type; K21.9 Gastro-esophageal reflux disease without esophagitis; F32.A Depression, unspecified; Z87.19 Personal history of other diseases of the digestive system; Z79.899 Other long term (current) drug therapy; Z79.51 Long term (current) use of inhaled steroids
CPT/HCPCS: 80048; 80076; 83690; 85025; 96361; 96374; 96375; 99284; J7030; A4216

== ENCOUNTER 2021-03-26 22:08 | Emergency (ER) | payer MEDICAID, SELFPAY ==
[2021-03-26 22:09] VITALS: BP 133/80; PULSE 93; RESP 18; TEMP 36.2; O2SAT 96; BMI 30.7
--- NOTE | 2021-03-26 22:18 | EX.ED.DYSGE1 ---
HPI History of Present Illness Chief Complaint: Anxiety Informant: patient Narrative Narrative: 31-year-old male presented to the emergency department anxiety and gastritis. Patient was seen 2 nights ago for same. Patient states he now used all of his Ativan Warfilone that he is prescribed. He is very anxious with his gastritis for which she takes famotidine twice a day and has been using some Carafate today. He states that when he takes his medications for his anxiety he does not feel like they are digesting wrong and they are not getting the fact that he needs. He reports he has an appointment with Dr. Herndon later next month. [facility] Medical History Anxiety Asthma Bipolar 1 disorder Depression History of alcohol abuse History of GERD History of substance abuse History of ulcer Schizoaffective disorder, bipolar type SOB (shortness of breath) Home Medications trazodone 100 mg PO QHS 01/22/20 [History Last Taken Unknown] ziprasidone HCl 20 mg PO DAILY 01/22/20 [History Last Taken Unknown] lorazepam 0.5 mg PO TID PRN PRN #6 tab 03/13/20 [Rx Last Taken Unknown] Symbicort 160 mcg-4.5 mcg/actuation HFA aerosol inhaler 2 inh INHALATION BID #10.2 g NS 02/20/21 [Rx Last Taken Unknown] albuterol sulfate 90 mcg/actuation breath activated powder inhaler 2 inh INHALATION Q6H PRN #1 ea 02/20/21 [Rx Last Taken Unknown] famotidine 20 mg PO BID 03/24/21 [History Last Taken Unknown] omeprazole 40 mg PO DAILY 03/24/21 [History Last Taken Unknown] lidocaine HCl [Lidocaine Viscous] 10 ml PO TID PRN #180 ml 03/26/21 [Rx Last Taken Unknown] Allergy/AdvReac Type Severity Reaction Status Date / Time No Known Allergies Allergy Verified 03/21/21 18:17 Social History Smoking Status: Never smoker alcohol intake: former substance use type: does not use and other details: Former use of Marijuana ROS ROS ED Constitutional Constitutional ED: Denies chills, fever(s) or weight loss Eyes Eyes: Denies change in vision or diplopia ENT ENT ED: Denies ear pain, rhinorrhea or sore throat Cardiovascular Cardiovascular: Denies chest pain, orthopnea, palpitations or racing heartbeat Respiratory/Chest Respiratory/Chest: Denies cough, dyspnea or orthopnea Gastrointestinal Gastrointestinal: Reports abdominal pain; Denies diarrhea, nausea or vomiting Genitourinary Genitourinary ED: Denies dysuria, hematuria or urinary frequency Musculoskeletal Musculoskeletal: Denies arthralgias or myalgias Integumentary Denies abscess or rash Neurologic Neurologic: Denies headache(s) or weakness Psychiatric Psychiatric: Reports anxiety; Denies depression, suicidal ideation or suicidal thoughts Endocrine Endocrinology: Denies polydipsia, polyphagia or polyuria Allergic/Immunologic Allergic/Immunologic ED: Denies mouth swelling, tongue swelling or urticaria EXAM Physical Exam Const Vital Signs: 03/26/21 22:09 Temperature 97.2 F L Temperature Source Temporal Pulse Rate 93 Respiratory Rate 18 Blood Pressure 133/80 H Blood Pressure Mean 97 Pulse Ox 96 Positive well nourished and well developed General Appearance ED: well developed HEENT Reports normocephalic, head/scalp atraumatic, TM's clear and moist mucous membranes Negative for trauma Tympanic Membrane ED: Yes TM's clear Eyes PERRL and EOMs intact bilaterally Neck no lymphadenopathy, supple and no JVD Resp normal respiratory effort and clear to auscultation bilaterally Cardio regular rate, regular rhythm and no murmurs GI normal to inspection, nondistended, normoactive bowel sounds and non-tender Palpation: soft Back/Spine no CVA tenderness and normal ROM Extremity normal to inspection General Extremety ED: Negative for edema General Extremity: Negative for edema Neuro oriented x3 and CN's II-XII intact bilaterally Sensorium / Orientation: alert Motor Exam: strength 5/5 throughout Psych Mood & Affect: anxious; Negative for depressed or tearful Skin no rashes or lesions noted and no wounds MDM MDM MDM Narrative Medical decision making narrative: Patient received a GI cocktail and a dose of IM Ativan. I will can write for him to have a some viscous lidocaine at home to help him tolerate p.o. Follow-up with his doctors as scheduled Discharge Plan Triage Chief Complaint: Anxiety ED Provider: Marshall Ramos Dx/Rx/DC Orders Clinical Impression: Gastritis, Anxiety Instructions: ED Gastritis (Adult) Prescriptions: New lidocaine HCl [Lidocaine Viscous] 2 % solution 10 ml PO TID PRN (Reason: pain) Qty: 180 RF: 0 No Action ziprasidone HCl 20 MG capsule 20 mg PO DAILY RF: 0 trazodone 100 MG tablet 100 mg PO QHS RF: 0 lorazepam 0.5 MG tablet 0.5 mg PO TID PRN PRN (Reason: Stress and or anxiety) Qty: 6 RF: 0 omeprazole 40 mg capsule,delayed release(DR/EC) 40 mg PO DAILY RF: 0 famotidine 20 mg tablet 20 mg PO BID RF: 0 albuterol sulfate 90 mcg/actuation aerosol powdr breath activated 2 inh INHALATION Q6H PRN (Reason: shortness of breath or wheezing) Qty: 1 RF: 3 budesonide-formoterol [Symbicort] 160-4.5 mcg/actuation HFA aerosol inhaler 2 inh INHALATION BID Qty: 10.2 RF: 6 Primary Care Provider: Woo Lantigua Referrals: Woo Lantigua MD [Primary Care Provider] - As soon as possible Activity Restrictions/Additional Instructions: Mix 10 mL of the viscous lidocaine with 10 mL of Maalox. Make sure you take the Carafate before bedtime. Disposition Disposition: Home, Self Care
[2021-03-26] MEDS: Mag Hydrox/Al Hydrox/Simeth 30 ML UDC PO (22:29)
[2021-03-26] MEDS: LORazepam 2 MG/ML Syringe 1 MG IM (22:29)
== END 2021-03-26 22:58 | disposition home or self-care (01) ==
LOC: ED 22:28
PROVIDERS: Emergency Provider Emergency Medicine; PCP Nurse Practitioner Family
DX: K29.70 Gastritis, unspecified, without bleeding (principal); F41.9 Anxiety disorder, unspecified
CPT/HCPCS: 96372; 99282

== ENCOUNTER 2021-04-03 21:32 | Emergency (ER) | payer MEDICAID, SELFPAY ==
[2021-04-03 21:33] VITALS: BP 128/94; PULSE 102; RESP 18; TEMP 36.7; O2SAT 98; BMI 30.2
[2021-04-03 21:41] VITALS: PULSE 97; RESP 16; O2SAT 98
--- NOTE | 2021-04-03 22:18 | EDS_ITS ---
HPI History of Present Illness Chief Complaint: Anxiety Informant: patient Narrative Narrative: History of schizophrenia bipolar anxiety depression and gastritis presents increasing anxiety. Denies suicidal homicidal ideations. He states he has been dealing with gastritis symptoms for the past 2 weeks. He is currently on Protonix twice daily. He is seen recent ED had viscous lidocaine prescribed. Reports he was on trazodone and Geodon for years concerns this is causing his increasing gastritis. He has discussed this with his psychiatry team. Reports today he was told to stop his Geodon and was called in for Zyprexa. He was taken Geodon 3 times a day with the 40 mg dose at night to help him sleep. States he check with his pharmacy the Zyprexa was not there. This increases anxiety. With his gastritis he denies any rectal bleeding or melena. His appointment with Dr. Herndon on the . Took his viscous lidocaine an hour ago. He is tolerating oral intake. Denies vomiting. Denies abdominal pain. Denies fevers. States he was prescribed as needed Ativan 1.5 mg by psychiatry team which he recently ran out. He states it does help with symptoms. Prior similar symptoms: Yes PFSH [facility] Medical History Anxiety Asthma Bipolar 1 disorder Depression History of alcohol abuse History of GERD History of substance abuse History of ulcer Schizoaffective disorder, bipolar type SOB (shortness of breath) Home Medications trazodone 100 mg PO QHS 01/22/20 [History Last Taken Unknown] ziprasidone HCl 20 mg PO DAILY 01/22/20 [History Last Taken Unknown] lorazepam 0.5 mg PO TID PRN PRN #6 tab 03/13/20 [Rx Last Taken Unknown] Symbicort 160 mcg-4.5 mcg/actuation HFA aerosol inhaler 2 inh INHALATION BID #10.2 g NS 02/20/21 [Rx Last Taken Unknown] albuterol sulfate 90 mcg/actuation breath activated powder inhaler 2 inh INHALATION Q6H PRN #1 ea 02/20/21 [Rx Last Taken Unknown] lidocaine HCl [Lidocaine Viscous] 10 ml PO TID PRN #180 ml 03/26/21 [Rx Last Taken Unknown] pantoprazole 40 mg PO BID 04/03/21 [History Last Taken Unknown] sucralfate [Carafate] 10 ml PO Q6H #1000 ml 04/03/21 [Rx Last Taken Unknown] Allergy/AdvReac Type Severity Reaction Status Date / Time No Known Allergies Allergy Verified 03/21/21 18:17 Social History Smoking Status: Never smoker alcohol intake: former substance use type: does not use and other details: Former use of Marijuana ROS ROS ED Constitutional Constitutional ED: Denies chills, fever(s) or sweats Eyes Eyes: Denies change in vision ENT ENT ED: Denies dysphagia or sore throat Cardiovascular Cardiovascular: Denies chest pain, leg edema, palpitations or racing heartbeat Respiratory/Chest Respiratory/Chest: Denies cough, dyspnea or dyspnea on exertion Gastrointestinal Gastrointestinal: Denies abdominal pain, diarrhea, nausea or vomiting Genitourinary Genitourinary ED: Denies dysuria, hematuria or urinary frequency Musculoskeletal Musculoskeletal: Denies back pain, extremity pain or neck pain Integumentary Denies rash or wounds Neurologic Neurologic: Denies headache(s), paresthesias or weakness Psychiatric Psychiatric: Reports anxiety; Denies suicidal ideation or suicidal thoughts EXAM Physical Exam Const Vital Signs: 04/03/21 21:33 04/03/21 21:41 04/03/21 22:52 Temperature 98.0 F Temperature Source Temporal Pulse Rate 102 H 97 90 Respiratory Rate 18 16 16 Blood Pressure 128/94 H Blood Pressure Mean 105 Pulse Ox 98 98 98 Oxygen Delivery Method Room Air Room Air Positive well nourished and well developed Constitutional Narrative: Anxious, able to calm down with discussion. Nontoxic. General Appearance ED: well developed and NAD HEENT Reports moist mucous membranes normocephalic and atraumatic Eyes PERRL, EOMs intact bilaterally and conjunctivae normal General Eye ED: Yes normal appearance of both eyes Neck no lymphadenopathy and supple General: Negative for tenderness Chest Wall Chest: Negative for tenderness Resp normal respiratory effort and normal air movement Effort and Inspection: symmetric chest movement; Negative for respiratory distress Cardio regular rate, regular rhythm and no murmurs Peripheral Pulses: pulses 2+ throughout GI normal to inspection, nondistended, normoactive bowel sounds and non-tender Palpation: Negative for guarding or rebound tenderness present Back/Spine no CVA tenderness and no thoracic nor lumbar tenderness Extremity normal to inspection General Extremety ED: Negative for edema or tenderness General Extremity: Negative for edema Neuro oriented x3 and no sensory deficits noted Sensorium / Orientation: awake and alert Psych Psych Narrative: No suicidal or homicidal ideations. Skin no rashes or lesions noted and no wounds MDM MDM MDM Narrative Medical decision making narrative: Patient nontoxic nonsurgical abdomen. Currently increasing anxiety due to gastritis symptoms. Denies any rectal bleeding. Discussed will optimize GI medications with added Carafate 4 times a day. He is on Protonix twice a day. Anxiety discussed will give 1 dose of Ativan in the ED 0.5 mg. He would like the Zyprexa dose of 10 mg this evening. Discussed with him this may not immediately help his symptoms and he understands this. He is more concerns of the Geodon irritating gastritis symptoms. He will call his psychiatry team tomorrow to make sure his medications are the pharmacy. He will keep his follow-up with GI as an outpatient. Denies suicidal homicidal ideations. All questions were answered. Patient is being discharged under pandemic conditions under declared global, national and state disaster activation, with limited medical resources. Patient and community understands this. Results discussed in layman's terms to the patient satisfaction. All questions answered in layman's terms. Patient understands importance of follow-up care as directed. Patient has been instructed to return to the ED immediately if new symptoms, problems, or questions occur. We mutually agree with the plan of disposition. The patient understand that they may call or return with any questions or concerns at any time. Discharge Plan Triage Chief Complaint: Anxiety Other Complaint: Abd Pain ED Provider: Blayne Canas Dx/Rx/DC Orders Clinical Impression: Anxiety, Gastritis Instructions: ED Anxiety Reaction, ED Gastritis (Adult) Prescriptions: New sucralfate [Carafate] 100 mg/mL suspension 10 ml PO Q6H Qty: 1000 RF: 0 No Action ziprasidone HCl 20 MG capsule 20 mg PO DAILY RF: 0 trazodone 100 MG tablet 100 mg PO QHS RF: 0 lorazepam 0.5 MG tablet 0.5 mg PO TID PRN PRN (Reason: Stress and or anxiety) Qty: 6 RF: 0 lidocaine HCl [Lidocaine Viscous] 2 % solution 10 ml PO TID PRN (Reason: pain) Qty: 180 RF: 0 pantoprazole 40 mg tablet,delayed release (DR/EC) 40 mg PO BID RF: 0 albuterol sulfate 90 mcg/actuation aerosol powdr breath activated 2 inh INHALATION Q6H PRN (Reason: shortness of breath or wheezing) Qty: 1 RF: 3 budesonide-formoterol [Symbicort] 160-4.5 mcg/actuation HFA aerosol inhaler 2 inh INHALATION BID Qty: 10.2 RF: 6 Primary Care Provider: Marshall Raza NP Referrals: Vishnu Herndon DO [STAFF PHYSICIAN] - Keep Simran appointment Marshall Raza NP, [employer] [Primary Care Provider] - Activity Restrictions/Additional Instructions: Call your psychiatrist tomorrow to make sure your medications are sent to your pharmacy to start taking as prescribed. Add Carafate to your regimen. Continue your Protonix. Follow-up with Dr. Herndon. Disposition Disposition: Home, Self Care Discharge Date/Time: 04/03/21 22:53
[2021-04-03] MEDS: LORazepam 0.5 MG Tablet PO (22:30)
[2021-04-03] MEDS: OLANZapine 10 MG Tablet PO (22:49)
[2021-04-03 22:52] VITALS: PULSE 90; RESP 16; O2SAT 98
== END 2021-04-03 22:53 | disposition home or self-care (01) ==
LOC: ED 22:18
PROVIDERS: Emergency Provider Emergency Medicine; PCP Nurse Practitioner Family
DX: F41.9 Anxiety disorder, unspecified (principal); K29.70 Gastritis, unspecified, without bleeding; F25.0 Schizoaffective disorder, bipolar type; J45.909 Unspecified asthma, uncomplicated; K21.9 Gastro-esophageal reflux disease without esophagitis; Z79.51 Long term (current) use of inhaled steroids; Z79.899 Other long term (current) drug therapy; Z87.11 Personal history of peptic ulcer disease
CPT/HCPCS: 99283

== ENCOUNTER 2021-04-30 11:26 | Day surgery (SDC) | payer MEDICAID, SELFPAY ==
[2021-04-30 11:48] VITALS: BP 131/91; PULSE 75; RESP 18; TEMP 36.4; O2SAT 98; BMI 30.7
[2021-04-30] MEDS: Lactated Ringers 1,000 ML 15 ML IV (12:03)
--- NOTE | 2021-04-30 12:03 | HP.PCM_ITS ---
History and Physical Date of Admission: 04/30/21 31 M who presents to the office today for For the last two to three weeks. Currently eating an anti-inflammatory diet and gluten free diet and dairy elimination. Reports PO intake causing stomach pain with a burning sensation that then rises into his chest. Reports anxiety radiating out of his stomach/esophagus. States he is traumatized. He has been drinking a lot of caffeinated tea and takes medications for chronic conditions that are being changed currently. Currently using a nicotine patch. Denies alcohol intake. Denies use of NSAIDs. Follows a lot of social media groups regarding gastritis. Currently taking protonix 40mg BID and sucralfate BID (because of timing, knows it should be TID) for the last 2-3 weeks. Reports colonoscopy and EGD about 18 months ago with reported diagnosis of acute gastritis. Multiple presentations to [facility] ED this year for constipation, abdominal pain alternating between LLQ and RLQ, anxiety which he is being treated with trazodone, Geodon and Vistaril and sees a psychiatrist. Psychiatric history includes schizophrenia, bipolar, anxiety, depression. Blood allergy testing performed 02/16/20 with multiple environmental allergens found. CT abd/pel performed 03/21/21 without structural abnormality or acute process. Feces noted throughout the colon without mass or obstruction. ROS Const Constitutional: No anorexia, fatigue, fever(s), weight change or sleep problems Eyes Eyes: No change in vision ENT ENT: No abnormal hearing, difficulty swallowing, mouth lesions, tongue swelling or throat swelling Resp Respiratory: No cough or shortness of breath Cardio Cardiology: No chest pain at rest, chest pain with exertion, shortness of breath or dyspnea on exertion Gastro GI: No difficulty swallowing Genitourinary Male: No difficulty urinating or burning urination Musc Musculoskeletal: No joint pain, joint swelling, muscle weakness or decreased muscle mass Skin Skin: No hair loss in leg, yellowing of the eye, itchy eyes, rash, skin ulcer or skin swelling Neuro Neurology: No abnormal hearing, abnormal movements, confusion, unsteady ga it/balance or memory loss Psych Psychiatric: No anxiety, No confusion and No memory loss Endo Endocrine: No fatigue or weight change Aller/Imm Allergy/Immunologic: No itchy eyes, throat swelling or tongue swelling Arturo/Lymp Hematologic/Lymphatic: No easy bleeding, easy bruising or enlarged lymph nodes Exam Const General: cooperative and comfortable Nutritional Appearance: average body habitus and well nourished [facility] Head: normal to inspection Ears: hearing grossly normal bilaterally Nose: external nose normal Face and sinus: normal facial exam Mouth: oral mucosae normal Throat: posterior oropharynx normal Eyes General: appearance normal, both eyes and all related structures Neck Neck: normal visual inspection Chest Chest palpation & inspection: normal inspection of the chest and normal p alpation of entire chest wall Resp Effort & Inspection: normal respiratory effort Auscultation: Bilateral: Clear to Auscultation Cardio Palpation: normal PMI Rate: regular rate Rhythm: regular rhythm GI Inspection: normal to inspection Auscultation: normal bowel sounds Percussion: normal to percussion Palpation: no hepatosplenomegaly Skin General: no rashes or lesions noted Neuro General: patient alert Extrem General: normal to inspection Psych Affect: normal affect Quality Reporting Tobacco Screening ([facility] 138) Smoking Status: Never smoker Assessment and Plan Assessment and Plan (1) Abdominal pain: Status: Acute Plan - Dr. Mares Friend, DO: She reports a history of gastritis. He repairs that is getting a little bit better with Carafate and Protonix therapy. The different diagnosis for this could be H. pylori associated gastritis. We will perform upper endoscopy to evaluate his upper GI tract. Also explained to him that this could be a side effect from his multiple antipsychotic and antidepressive medicines. I explained to him that he should contact his psychiatrist or psychologist in regards to his medicines. This is because he has been taken Geodon at night as needed to sleep along with trazodone at night as needed to sleep. He was started on a new antipsychotic medicine along with Prozac. I told him that through serotonin inhibition this can have a lot of side effects on his GI tract as well as multiple the systems in his body. I have re-examined the patient. There are no clinical changes since date of exam.
--- NOTE | 2021-04-30 12:30 | EGD_PTH ---
PATIENT: MATTY DHILLON LOC: [facility] U#:[id number] AGE/SX: 31/M ROOM: RE04/30/[address]: Dr. Vishnu Herndon DO : 1990 BED: DIS: 04/30/2021 SPEC #: [id number] RECD: 04/30/21 15:02 STATUS: DIAN MARÍA #: [id number] LINDY: 04/30/21 12:[address]: Vishnu Herndon DEPT: SURGICAL PATHOLOGY RECD BY: Yumiko Hernandes ENTERED: 05/01/21 07:54 SP TYPE: EGD BIOPSY OT DR: Marshall Raza, METALLURGICAL OR MATERIALS TECHNICIAN-C Tissues: A - Duodenum, NOS B - Gastric mucous membrane C - Esophagus, NOS Procedures: Special Stain Group II Surgery Specimen Level IV Alcian Blue/PAS (control) HEADER OPERATION: EGD ([facility] [place]) PRE-OP DIAGNOSIS: Abdominal pain TISSUE SUBMITTED: A ? Duodenum biopsy, B ? Antrum biopsy for histo and h. pylori, C ? Distal esophagus biopsy MICROSCOPIC DIAGNOSIS A. Duodenum, biopsy: No pathologic change. B. Gastric antrum, biopsy: Chronic gastritis. See comment. C. Distal esophagus, biopsy: Gastroesophageal junctional mucosa with chronic inflammation. Changes of reflux. No evidence of goblet cell metaplasia. See comment. AM:basilio 05/02/2021 COMMENT B. The results of immunohistochemistry for Helicobacter pylori will be reported separately ([id number]). C. Alcian blue/PAS stain with matched control supports the above diagnosis. MICROSCOPIC DESCRIPTION Slides are reviewed. GROSS DESCRIPTION A - Received in fixative is one container labeled with the patient's name and designated duodenum biopsy. The specimen consists of two irregular fragments of light crowell soft tissue that in aggregate measure 0.6 x 0.3 x 0.1 cm. The specimen is totally submitted in one cassette. B - Received in fixative is one container labeled with the patient's name and designated antrum biopsy. The specimen consists of two irregular fragments of light crowell soft tissue that in aggregate measure 0.6 x 0.3 x 0.1 cm. The specimen is totally submitted in one cassette. C - Received in fixative is one container labeled with the patient's name and designated distal esophagus biopsy. The specimen consists of multiple irregular fragments of light crowell soft tissue that in aggregate measure 0.5 x 0.5 x 0.1 cm. The specimen is totally submitted in one cassette. / SJ:rg 05/01/21 TC:3 CPT: 33376 x3, 00894
--- NOTE | 2021-04-30 12:30 | IMM_PTH ---
PATIENT: MATTY DHILLON LOC: [facility] U#:[id number] AGE/SX: 31/M ROOM: RE04/30/[address]: Dr. Vishnu Herndon DO : 1990 BED: DIS: 04/30/2021 SPEC #: [id number] RECD: 05/01/21 09:41 STATUS: DIAN RENakul #: [id number] LINDY: 04/30/21 12:[address]: Vishnu Herndon DEPT: IMMUNOHISTOCHEMISTRY RECD BY: Payton García ENTERED: 05/01/21 09:41 SP TYPE: IMMUNO OTHR DR: Marshall Raza, MOVING VAN DRIVER-C Tissues: B - Stomach, NOS Procedures: H Pylori (initial) PHYSICIAN & INSTITUTION [place] [id number] SPECIMEN INFORMATION: Tissue Source: B ? Antrum biopsy Clinical Info: Abdominal pain Specimen Number: [id number] CPT code: 78559 METHODOLOGY: Deparaffinized sections of prefer/formalin-fixed tissue or PAP/DQ stained slides are incubated with monoclonal/polyclonal antibodies/oligonucleotide probes. Localization is made via biotin free immunoperoxidase method. Appropriate controls are performed and reacted as expected. Results on target cell population are indicated in the following table: RESULTS: ANTIBODY / CLONE RESULT Block B H Pylori (polyclonal) negative These tests were developed and their performance characteristics determined by [facility]. They may not have been cleared or approved by the U.S. Food and Drug Administration. The FDA has determined that such clearance or approval is not necessary. INTERPRETATION: B. Antrum biopsy: Negative for Helicobacter pylori organisms. AM:basilio 05/02/2021
[2021-04-30 13:05] VITALS: BP 105/70; BP 131/91; PULSE 72; RESP 18; TEMP 36.3; O2SAT 95
--- NOTE | 2021-04-30 13:06 | OP.EGD_ITS ---
Patient Name: Jeronimo Whitlock Procedure Date: 04/30/2021 12:33 PM Date of : 1990 Age: 31 Procedure: Upper GI endoscopy Indications: Heartburn, Failure to respond to medical treatment Providers: Vishnu Herndon DO Medicines: See the Anesthesia note for documentation of the administered medications Patient Profile: This is a 31 year old male. Refer to note in patient chart for documentation of history and physical. Patient has symptoms of chronic nausea, chronic regurgitation, chronic throat burning and acute vomiting. Complications: No immediate complications. Procedure: Pre-Anesthesia Assessment: - Prior to the procedure, a History and Physical was performed, and patient medications and allergies were reviewed. The patient is competent. The risks and benefits of the procedure and the sedation options and risks were discussed with the patient. All questions were answered and informed consent was obtained. Patient identification and proposed procedure were verified by the physician in the pre-procedure area. Mental Status Examination: alert and oriented. Airway Examination: normal oropharyngeal airway and neck mobility. Respiratory Examination: clear to auscultation. CV Examination: normal. Prophylactic Antibiotics: The patient does not require prophylactic antibiotics. Prior Anticoagulants: The patient has taken no previous anticoagulant or antiplatelet agents. After reviewing the risks and benefits, the patient was deemed in satisfactory condition to undergo the procedure. The anesthesia plan was to use moderate sedation / analgesia (conscious sedation). Immediately prior to administration of medications, the patient was re-assessed for adequacy to receive sedatives. The heart rate, respiratory rate, oxygen saturations, blood pressure, adequacy of pulmonary ventilation, and response to care were monitored throughout the procedure. The physical status of the patient was re-assessed after the procedure. After obtaining informed consent, the endoscope was passed under direct vision. Throughout the procedure, the patient's blood pressure, pulse, and oxygen saturations were monitored continuously. The gastroscope was introduced through the mouth, and advanced to the second part of duodenum. The upper GI endoscopy was accomplished without difficulty. The patient tolerated the procedure well. Moderate Sedation: Moderate (conscious) sedation was administered by the endoscopy nurse and supervised by the endoscopist. The patient's oxygen saturation, heart rate, blood pressure and response to care were monitored. Total physician intraservice time was 15 minutes. Scope In: 12:46:40 PM Scope Out: 12:58:11 PM Total Procedure Duration Time 0 hours 11 minutes 31 seconds Findings: LA Grade B (one or more mucosal breaks greater than 5 mm, not extending between the tops of two mucosal folds) esophagitis with no bleeding was found 34 to 39 cm from the incisors. Biopsies were taken with a cold forceps for histology. Verification of patient identification for the specimen was done. Estimated blood loss was minimal. A non-obstructing Schatzki ring was found in the lower third of the esophagus. Diffuse mildly erythematous mucosa without bleeding was found in the gastric antrum. Biopsies were taken with a cold forceps for histology. Verification of patient identification for the specimen was done. Estimated blood loss was minimal. Patchy mildly erythematous mucosa without active bleeding and with no stigmata of bleeding was found in the first portion of the duodenum and in the second portion of the duodenum. Biopsies were taken with a cold forceps for histology. Verification of patient identification for the specimen was done. Estimated blood loss was minimal. Impression: - LA Grade B reflux esophagitis. Biopsied. - Non-obstructing Schatzki ring. - Erythematous mucosa in the antrum. Biopsied. - Erythematous duodenopathy. Biopsied. Recommendation: - Written discharge instructions were provided to the patient. - The signs and symptoms of potential delayed complications were discussed with the patient. - Patient has a contact number available for emergencies. - Return to normal activities tomorrow. - Resume previous diet. - Continue present medications. - Await pathology results. - Repeat upper endoscopy in 1 year for surveillance. - Return to GI clinic in 2 weeks. Procedure Code(s): --- Professional --- 72446, Esophagogastroduodenoscopy, flexible, transoral; with biopsy, single or multiple 21671, 59, Moderate sedation services provided by the same physician or other qualified health senior resident care director performing the diagnostic or therapeutic service that the sedation supports, requiring the presence of an independent trained observer to assist in the monitoring of the patient's level of consciousness and physiological status; initial 15 minutes of intraservice time, patient age 5 years or older CPT copyright 2017 [employer]. All rights reserved. The codes documented in this report are preliminary and upon inpatient coder review may be revised to meet current compliance requirements. Vishnu Herndon DO 04/30/2021 1:06:22 PM This report has been signed electronically. Number of Addenda: 1 Note Initiated On: 04/30/2021 12:33 PM Addendum Number: 1 Addendum Date: 01/02/2022 6:03:59 AM MAC was used instead of moderate sedation for the patient. Vishnu Herndon DO 01/02/2022 6:04:06 AM This report has been signed electronically.
--- NOTE | 2021-04-30 13:07 | OP.CCLET_ITS ---
01/02/2022 Carol Nielsen Re : Upper GI endoscopy procedure for Jeronimo Alvarengar Ry This procedure was performed on Friday, April 30, 2021. My impressions and recommendations are as follows: Impressions : - LA Grade B reflux esophagitis. Biopsied. - Non-obstructing Schatzki ring. - Erythematous mucosa in the antrum. Biopsied. - Erythematous duodenopathy. Biopsied. Recommendations : - Written discharge instructions were provided to the patient. - The signs and symptoms of potential delayed complications were discussed with the patient. - Patient has a contact number available for emergencies. - Return to normal activities tomorrow. - Resume previous diet. - Continue present medications. - Await pathology results. - Repeat upper endoscopy in 1 year for surveillance. - Return to GI clinic in 2 weeks. My findings are described in the full procedure note, which is enclosed. If I can be of further assistance, please feel free to contact me at . Sincerely, Vishnu Herndon, 04/30/2021 1:06:22 PM This report has been signed electronically.
[2021-04-30 13:10] VITALS: BP 108/70; BP 131/91; PULSE 66; RESP 18; O2SAT 94
[2021-04-30 13:15] VITALS: BP 107/74; BP 131/91; PULSE 63; RESP 18; O2SAT 94
[2021-04-30 13:20] VITALS: BP 104/75; BP 131/91; PULSE 64; RESP 18; TEMP 36.5; O2SAT 95
[2021-04-30 13:40] VITALS: BP 131/91
== END 2021-04-30 23:59 | disposition home or self-care (01) ==
LOC: EN 11:28 → AC 11:29
PROVIDERS: PCP Nurse Practitioner Family; Referring Provider Nurse Practitioner Family; Visit Provider Internal Medicine Gastroenterology
PROC: 0DJ08ZZ Inspection of Upper Intestinal Tract, Via Natural or Artificial Opening Endoscopic (ICD-10-PCS; CPT 43235; principal; 2021-04-30 12:25)
DX: K29.50 Unspecified chronic gastritis without bleeding (principal); F25.0 Schizoaffective disorder, bipolar type; K22.2 Esophageal obstruction; K21.00 Gastro-esophageal reflux disease with esophagitis, without bleeding; F41.9 Anxiety disorder, unspecified; Z79.899 Other long term (current) drug therapy; Z87.19 Personal history of other diseases of the digestive system; G25.81 Restless legs syndrome
CPT/HCPCS: 43239; J2405; 88305; 88313; 88342; J7120

== ENCOUNTER 2021-09-01 20:56 | Emergency (ER) | payer MEDICAID, SELFPAY ==
[2021-09-01 20:58] VITALS: BP 126/86; PULSE 106; RESP 17; TEMP 36.1; O2SAT 99; BMI 28.1
--- NOTE | 2021-09-01 21:21 | CT_ITS ---
STUDY: CT ABDOMEN AND PELVIS WITH CONTRAST REASON FOR EXAM: Male, 31 years old. abdominal pain with diarrhea for one week RADIATION DOSAGE (If Supplied By Facility): CTDIvol = ( 9.63 ) mGy, DLP = ( 682.41 ) mGycm TECHNIQUE: Transaxial images were obtained from the dome of the diaphragm to the symphysis pubis without oral contrast. IV 100mL Isovue-300 was administered. Sagittal and coronal images were reconstructed. Individualized dose optimization techniques were used for this CT. COMPARISON: None. FINDINGS: The visualized lung bases are unremarkable. The visualized portions of the heart are within normal limits. Normal liver. The gallbladder is contracted. Normal spleen. Normal pancreas. Normal bilateral adrenal glands. Normal right kidney. Normal left kidney. Normal visualized stomach. Normal small intestine. Normal colon. The appendix is visualized and appears normal. Normal abdominal aorta. Normal inferior vena cava. Normal retroperitoneum. Normal urinary bladder. There is a small umbilical hernia containing fat. Normal osseous structures. CT/Abdomen/Pelvis W IV Cont ONLY IMPRESSION: No acute inflammatory process or bowel obstruction. Electronically Signed: Osito Mccray MD ([place]) at 22:13 EDT ,
--- NOTE | 2021-09-01 21:22 | ED.VIS.GI ---
HPI HPI - GI History of Present Illness Chief Complaint: Abd Pain Narrative Narrative: Patient with history of gastritis presenting with abdominal pain which is fairly diffuse. He states he had diarrhea for several days. He states that what he has been reading is that his long-term PPI could have caused him to have C. difficile. He states he has not had any recent antibiotic use. No fever no chills. He has nausea without vomiting. No black or bloody stools. No exotic travel. No change in typical diet. He does state that he had a friend that was just admitted to the hospital for rotavirus. Patient states that his burps are less sulfery than usual and are now just disgusting. Patient states that his anxiety is worsening over concern for his diarrhea. He states he cannot take Zofran because it causes him to have headaches. [facility] Medical History Anxiety Asthma Bipolar 1 disorder Depression Former smoker History of alcohol abuse History of edema History of gastritis History of GERD History of pain when walking History of substance abuse Hx of fracture of tibia Marijuana use Restless legs Schizoaffective disorder, bipolar type SOB (shortness of breath) Wears glasses Home Medications trazodone 200 mg PO QHS 01/22/20 [History Last Taken Unknown] lorazepam 0.5 mg PO TID PRN PRN #6 tab 03/13/20 [Rx Last Taken Unknown] Symbicort 160 mcg-4.5 mcg/actuation HFA aerosol inhaler 2 inh INHALATION BID #10.2 g NS 02/20/21 [Rx Last Taken Unknown] albuterol sulfate 90 mcg/actuation breath activated powder inhaler 2 inh INHALATION Q6H PRN #1 ea 02/20/21 [Rx Last Taken Unknown] diphenhydramine HCl [Benadryl] 50 mg PO Q6H PRN 04/29/21 [History Last Taken Unknown] esomeprazole magnesium 40 mg capsule,delayed release 40 mg PO BID #60 cap 05/17/21 [Rx Last Taken Unknown] promethazine 25 mg PO TID PRN #20 tab 09/01/21 [Rx Last Taken Unknown] quetiapine [Seroquel] 100 mg PO QHS 09/01/21 [History Last Taken Unknown] Allergy/AdvReac Type Severity Reaction Status Date / Time ondansetron [From Zofran] AdvReac Other Verified 09/01/21 21:23 Social History Smoking Status: Former smoker quit date: 03/18/17 pack-years: 1 alcohol intake: former substance use type: does not use and other details: Former use of Marijuana ROS ROS ED Constitutional Constitutional ED: Denies chills or fever(s) ENT ENT ED: Denies rhinorrhea or sore throat Cardiovascular Cardiovascular: Denies chest pain or palpitations Respiratory/Chest Respiratory/Chest: Denies cough or dyspnea Gastrointestinal Gastrointestinal: Reports diarrhea and nausea; Denies abdominal pain Genitourinary Genitourinary ED: Denies dysuria or hematuria Musculoskeletal Musculoskeletal: Denies arthralgias or myalgias Integumentary Denies rash Neurologic Neurologic: Denies headache(s) or weakness Psychiatric Psychiatric: Denies anxiety or depression EXAM Physical Exam Const Vital Signs: 09/01/21 20:58 Temperature 97 F L Temperature Source Temporal Pulse Rate 106 H Respiratory Rate 17 Blood Pressure 126/86 H Blood Pressure Mean 99 Pulse Ox 99 Oxygen Delivery Method Room Air Positive well nourished General Appearance ED: NAD; Negative for pallor HEENT Reports moist mucous membranes normocephalic and atraumatic Eyes PERRL and EOMs intact bilaterally Resp clear to auscultation bilaterally Cardio regular rate and regular rhythm GI non-tender and non-distended Auscultation: hyperactive bowel sounds Palpation: soft Back/Spine no CVA tenderness Neuro CN's II-XII intact bilaterally Sensorium / Orientation: alert, oriented to person, oriented to place and oriented to time Psych mental status grossly normal Skin General Skin Exam: Negative for jaundice or pallor Lesions: no lesions Rashes: no rashes MDM MDM MDM Narrative Medical decision making narrative: Patient presenting with diffuse crampy abdominal pain nausea and diarrhea. This is not a new issue for him. Patient given Phenergan for his nausea IM. Blood work is obtained and is CBC and CMP are unremarkable. Urinalysis negative. I obtained a CT of the abdomen pelvis which also shows no acute abdominal process. Patient initially requested that we do stool studies however he is not able to produce diarrhea. He states he does not need to at this point. Patient will be given Phenergan for home at his request. He is stable for discharge. He will follow-up with Dr. Herndon. Impression: 1. Gastroenteritis Lab Data Attestation: I reviewed the patient's lab results. Labs: Laboratory Results - last 24 hr 09/01/21 09/01/21 09/01/21 21:25 21:25 21:40 WBC 9.6 RBC 5.03 Hgb 13.9 Hct 42.2 MCV 83.9 MCH 27.6 MCHC 32.9 RDW Std Deviation 44.1 H RDW Coeff of Klaus 14.6 Plt Count 289 MPV 10.3 Immature Gran % (Auto) 0.200 Neut % (Auto) 64.5 Lymph % (Auto) 24.9 Glades % (Auto) 6.6 Eos % (Auto) 3.5 Baso % (Auto) 0.3 Absolute Neuts (auto) 6.2 Absolute Lymphs (auto) 2.39 Nucleated RBC % 0 Sodium 140 Potassium 3.4 L Chloride 106 Carbon Dioxide 26.0 Anion Gap 8 BUN 6 L Creatinine 0.96 Estim Creat Clear Calc 105.19 Est GFR (MDRD) Af Amer 117 Est GFR (MDRD) Non-Af 97 BUN/Creatinine Ratio 6.2 L Glucose 100 Calcium 8.7 Total Bilirubin 0.20 AST 10 L ALT 14 L Alkaline Phosphatase 77 Total Protein 6.6 Albumin 3.6 Globulin 3.0 Albumin/Globulin Ratio 1.2 Lipase 159 Urine Color Yellow Urine Clarity Clear Urine pH 6.0 Ur Specific Stella 1.015 Urine Protein Negative Urine Glucose (UA) Normal Urine Ketones Negative Urine Occult Blood Negative Urine Nitrite Negative Urine Bilirubin Negative Urine Urobilinogen Normal Ur Leukocyte Esterase Negative Urine RBC 0 SEEN Urine WBC 0 SEEN Ur Squamous Epith Cells 0 SEEN Urine Bacteria 0 SEEN Urine Mucus 0 SEEN Radiography Diagnostic Testing: Clinical Impression(s) from Imaging Studies Abdomen/Pelvis CT 09/01/21 21:21 IMPRESSION: No acute inflammatory process or bowel obstruction. Electronically Signed: Osito Mccray MD ([place]) at 22:13 EDT , Discharge Plan Triage Chief Complaint: Abd Pain ED Provider: Dorian Cota Dx/Rx/DC Orders Instructions: ED Gastroenteritis, Noninfectious Prescriptions: New promethazine 25 mg tablet 25 mg PO TID PRN (Reason: allergy symptoms) Qty: 20 RF: 0 No Action trazodone 100 MG tablet 200 mg PO QHS RF: 0 lorazepam 0.5 MG tablet 0.5 mg PO TID PRN PRN (Reason: Stress and or anxiety) Qty: 6 RF: 0 diphenhydramine HCl [Benadryl] 25 mg Capsule 50 mg PO Q6H PRN (Reason: Sleep) RF: 0 quetiapine [Seroquel] 100 mg Tablet 100 mg PO QHS RF: 0 albuterol sulfate 90 mcg/actuation aerosol powdr breath activated 2 inh INHALATION Q6H PRN (Reason: shortness of breath or wheezing) Qty: 1 RF: 3 budesonide-formoterol [Symbicort] 160-4.5 mcg/actuation HFA aerosol inhaler 2 inh INHALATION BID Qty: 10.2 RF: 6 esomeprazole magnesium [Nexium] 40 mg capsule,delayed release(DR/EC) 40 mg PO BID Qty: 60 RF: 3 Primary Care Provider: Waylon Dye Referrals: Waylon Dye MD [Primary Care Provider] - Disposition Disposition: Home, Self Care
[2021-09-01] MEDS: proMETHazine 25 MG/ML Syringe 12.5 MG IM (21:28)
[2021-09-01] MEDS: 0.9% Normal Saline 1,000 ML 1000 ML IV (21:28)
[2021-09-01 21:37] LABS: Absolute Lymphocyte Count 2.39 X10^3/uL (0.83-4.51); Absolute Neutrophil Count 6.2 X10^3/uL (2.0-7.7); Basophil# 0.03 X10^3/uL; Basophil% 0.3 % (0-1); Eosinophil# 0.34 X10^3/uL; Eosinophils% 3.5 % (0-5); Hematocrit 42.2 % (40-54); Hemoglobin 13.9 g/dL (13.0-16.5); Lymphocyte # 2.39 X10^3/ul (0.83-4.51); Lymphocyte % 24.9 % (19-41); Mean Corp Hgb Conc 32.9 g/dL (32-36); Mean Corpuscular Hgb 27.6 pg (27.0-32.0); Mean Corpuscular Volume 83.9 fL (80-94); Mean Platelet Vol. 10.3 fl (6.2-12.0); Monocyte# 0.63 X10^3/uL; Monocyte% 6.6 % (0-10); NRBC Flagged by Analyzer 0 % (0-5); Neutrophil # 6.19 X10^3/uL (2.7-7.7); Neutrophil % 64.5 % (47-70); Platelet Count 289 K/mm3 (150-450); RBC Distribution Width CV 14.6 % (11.6-14.6); RBC Distribution Width SD 44.1 fl (35.1-43.9); Red Blood Count 5.03 M/mm3 (4.6-6.2); White Blood Count 9.6 K/mm3 (4.4-11.0)
[2021-09-01 21:45] LABS: Bacteria 0 SEEN /hpf (None Seen); Mucous, Urine 0 SEEN /hpf (<or=2+); Red Blood Cells-Urine 0 SEEN /hpf (0-5); Squamous Epithelial Cells - UA 0 SEEN /hpf (0-5); White Blood Cells 0 SEEN /hpf (0-5)
[2021-09-01 21:46] LABS: Color, Urine Yellow (Yellow); Glucose, Dipstick Normal (Normal); Ketone-Dipstick Negative (Negative); Leukocyte Esterase-Dipstick Negative /ul (Negative); Nitrite-Dipstick Negative (Negative); Occult Blood-Urine Negative /ul (Negative); Protein-Dipstick Negative (Negative); Specific Gravity, Urine 1.015 (1.002-1.030); Urine Bilirubin Dipstick Negative (Negative); Urine Clarity Clear (Clear); Urine Urobilinogen Normal (Normal)
[2021-09-01 22:09] LABS: ALB/GLOB Ratio 1.2 RATIO (0.9-2.4); AST(SGOT) 10 U/L (15-37); Alanine Aminotransfer ALT/SGPT 14 U/L (16-61); Albumin, Serum 3.6 g/dL (3.2-5.0); Alkaline Phosphatase 77 U/L (45-117); Anion Gap 8 (5-15); BUN 6 mg/dL (7-18); BUN/Creat Ratio 6.2 RATIO (10-20); Calcium,Total 8.7 mg/dL (8.5-10.1); Chloride 106 mmol/L (98-107); Creatinine, Serum 0.96 mg/dL (0.70-1.30); EST Glomerular Filtration Rate 97 mL/min (>60); Est Glom Filt Rate - Afr Amer 117 mL/min (>60); Estimated Creatinine Clearance 105.19 ml/min; Glucose 100 mg/dL (74-106); Lipase 159 U/L (73-393); Potassium 3.4 mmol/L (3.5-5.1); Protein, Total 6.6 g/dL (6.4-8.2); Sodium Level 140 mmol/L (136-145)
[2021-09-01] MEDS: Menthol/Lanolin/Calamine/Znox 113 GM Tube 1 APPLIC TOPICAL (22:39)
[2021-09-01 23:15] VITALS: BP 120/80; PULSE 87; RESP 16; O2SAT 97
== END 2021-09-01 23:16 | disposition home or self-care (01) ==
PROVIDERS: Emergency Provider Student in an Organized Health Care Education/Training Program; PCP Family Medicine; Visit Provider Student in an Organized Health Care Education/Training Program
DX: K52.9 Noninfective gastroenteritis and colitis, unspecified (principal); F25.0 Schizoaffective disorder, bipolar type; F31.9 Bipolar disorder, unspecified; F41.9 Anxiety disorder, unspecified; J45.909 Unspecified asthma, uncomplicated; Z79.899 Other long term (current) drug therapy; Z87.891 Personal history of nicotine dependence
CPT/HCPCS: 74177; 80053; 81001; 83690; 85025; 96360; 96361; 96372; 99283; J7030; Q9967; A4216

== ENCOUNTER 2021-09-06 07:08 | Emergency (ER) | payer MEDICAID, SELFPAY ==
[2021-09-06 07:08] VITALS: BP 133/89; PULSE 68; RESP 16; TEMP 36.6; O2SAT 99; BMI 29.0
--- NOTE | 2021-09-06 07:23 | US_ITS ---
STUDY: ABDOMINAL ULTRASOUND - RIGHT UPPER QUADRANT REASON FOR VISIT: Male, 31 years old PAIN -- RUQ PAIN CHRONIC TECHNIQUE: Ultrasound evaluation of the right upper quadrant was performed with real-time and static mata-scale imaging. TECHNICAL QUALITY: Adequate. COMPARISON: None. FINDINGS: Liver: The liver measures 15.7 cm. There is normal echogenicity of the liver. The bile ducts are within normal limits. There is hepatic color flow. The direction of portal flow is hepatopetal. There is no demonstrated mass lesion. Gallbladder: Normal distended gallbladder. The gallbladder wall measures 2.8 mm. There is a negative sonographic Pearce''s sign. There is no pericholecystic fluid. There are no gallstones. Common Bile Duct (C.B.D.): The common bile duct measures 3.7 mm. Pancreas: Normal size of the head, body and tail of the pancreas. There is increased echogenicity of the pancreas. There is no demonstrated pancreatic mass or cyst. Right Kidney: Normal size of the right kidney. The right kidney measures 10.6 cm x 5.3 cm x 6 cm. Normal renal cortex. The right cortex measures 1.5 cm. There is no demonstrated renal mass or cyst. There is no right hydronephrosis. US/Gallbladder IMPRESSION: Normal right upper quadrant ultrasound examination. Electronically Signed: Sean Ferreira MD at 8:49 EDT ,
--- NOTE | 2021-09-06 07:23 | EKG12_ITS ---
Test Reason : ABDOMINAL PAIN Blood Pressure : / mmHG Vent. Rate : 062 BPM Atrial Rate : 062 BPM P-R Int : 172 ms QRS Dur : 106 ms QT Int : 430 ms P-R-T Axes : 028 009 015 degrees QTc Int : 436 ms Normal sinus rhythm Normal ECG When compared with ECG of 22-JAN-2020 10:57, T wave amplitude has decreased in Anterior leads Confirmed by MALIK STEWART, DEANN ([id number]), video news editor DESTINY SPARKS ([id number]) on 09/10/2021 7:32:48 AM Referred By: HEYDI Confirmed By:DEANN GAN MD
--- NOTE | 2021-09-06 07:26 | ED.VIS.GI ---
HPI HPI - GI History of Present Illness Chief Complaint: Abd Pain Informant: patient Abdominal Pain/Flank Pain Onset: Days Narrative Narrative: Patient is a 31-year-old male with history of gastritis, bipolar disorder, schizoaffective disorder and substance and alcohol abuse presenting with worsening anxiety as well as epigastric abdominal pain. Patient he has been dealing with stomach pains recently. He was actually seen in the ER 5 days ago for diarrhea, anxiety and abdominal pain. At that time he had a work-up including a CT of the abdomen pelvis and blood work and was discharged home. He had an EGD in April of this year which showed some gastritis. Patient is currently on Protonix. He states has been compliant. Since leaving the ER earlier this week he had an episode of vomiting and then is continued to have burning epigastric abdominal pain. He states it is really triggering his anxiety. He notes he was having diarrhea that has since stopped. He still passing gas. Denies history of any abdominal surgery. Denies any black or blood in his stool. Denies any fever or chills. Denies chest pain but does have shortness of breath that he attributes to his epigastric pain when he takes a deep breath. Patient notes that he has had a prescription for Ativan but ran out and cannot handle his anxiety either. Denies any HI or SI to me. [facility] Medical History Anxiety Asthma Bipolar 1 disorder Depression Former smoker History of alcohol abuse History of edema History of gastritis History of GERD History of pain when walking History of substance abuse Hx of fracture of tibia Marijuana use Restless legs Schizoaffective disorder, bipolar type SOB (shortness of breath) Wears glasses Home Medications trazodone 200 mg PO QHS 01/22/20 [History Last Taken Unknown] lorazepam 0.5 mg PO TID PRN PRN #6 tab 03/13/20 [Rx Last Taken Unknown] Symbicort 160 mcg-4.5 mcg/actuation HFA aerosol inhaler 2 inh INHALATION BID #10.2 g NS 02/20/21 [Rx Last Taken Unknown] albuterol sulfate 90 mcg/actuation breath activated powder inhaler 2 inh INHALATION Q6H PRN #1 ea 02/20/21 [Rx Last Taken Unknown] diphenhydramine HCl [Benadryl] 50 mg PO Q6H PRN 04/29/21 [History Last Taken Unknown] esomeprazole magnesium 40 mg capsule,delayed release 40 mg PO BID #60 cap 05/17/21 [Rx Last Taken Unknown] promethazine 25 mg PO TID PRN #20 tab 09/01/21 [Rx Last Taken Unknown] quetiapine [Seroquel] 100 mg PO QHS 09/01/21 [History Last Taken Unknown] metoclopramide HCl [Reglan] 10 mg PO Q6H PRN #20 tab 09/06/21 [Rx Last Taken Unknown] Allergy/AdvReac Type Severity Reaction Status Date / Time ondansetron [From Zofran] AdvReac Other Verified 09/06/21 07:10 Social History Smoking Status: Former smoker quit date: 03/18/17 pack-years: 1 alcohol intake: former substance use type: does not use and other details: Former use of Marijuana ROS ROS ED Constitutional Constitutional ED: Denies chills or fever(s) ENT ENT ED: Denies sore throat Cardiovascular Cardiovascular: Denies chest pain or palpitations Respiratory/Chest Respiratory/Chest: Reports dyspnea; Denies cough Gastrointestinal Gastrointestinal: Reports abdominal pain, nausea and vomiting; Denies constipation, diarrhea or melena Genitourinary Genitourinary ED: Denies dysuria Musculoskeletal Musculoskeletal: Denies arthralgias or myalgias Integumentary Denies rash Neurologic Neurologic: Denies headache(s) or weakness Psychiatric Psychiatric: Reports anxiety; Denies depression or suicidal thoughts EXAM Physical Exam Const Vital Signs: 09/06/21 07:08 09/06/21 09:17 Temperature 97.9 F Temperature Source Temporal Pulse Rate 68 88 Respiratory Rate 16 14 Blood Pressure 133/89 H 138/71 H Blood Pressure Mean 103 Pulse Ox 99 97 Oxygen Delivery Method Room Air Positive well nourished and well developed General Appearance ED: well developed and NAD HEENT normocephalic and atraumatic Eyes PERRL Neck supple Resp normal respiratory effort and clear to auscultation bilaterally Cardio regular rate, regular rhythm and no murmurs GI non-distended Inspection: Negative for abdominal distention Auscultation: hyperactive bowel sounds Palpation: soft and tender epigastric; Negative for guarding or rigid Back/Spine no CVA tenderness Extremity full ROM General Extremety ED: Negative for edema General Extremity: Negative for edema Neuro Sensorium / Orientation: alert, oriented to person, oriented to place and oriented to time Motor Exam: Negative for general weakness Psych mental status grossly normal Mood & Affect: anxious; Negative for depressed Skin Lesions: no lesions Rashes: no rashes MDM MDM MDM Narrative Medical decision making narrative: Is evaluated for recurrent epigastric abdominal pain. He is also having worsening nausea. His pain really seems to be consistent with his known history of gastritis. Abdomen is soft and nontender. He is having bowel movements I do not think he is obstructed. Lab work obtained which is largely normal. Right upper quadrant ultrasound is obtained which is normal. I do not think he has a perforated ulcer and his pain is all burning in his epigastric and substernal region. I do not think this is referred cardiac pain. Patient refuses IV Pepcid or GI cocktail in the ER stating that he is having adverse reaction to things and it will somehow make his symptoms worse. He is given 0.5 mg oral Ativan which he manages to keep down and tolerates. He is given IV fluids. We will trial Reglan to see if it helps his symptoms and he is encouraged to continue following up with his GI doctor as well as to continue on his antacids. At this time I do not think he has a surgical emergency requiring admission. I do not think he requires a CT of his abdomen pelvis. Patient discharged home in stable condition. Lab Data Attestation: I reviewed the patient's lab results. Labs: Laboratory Results - last 24 hr 09/06/21 09/06/21 07:55 07:55 WBC 7.3 RBC 4.71 Hgb 12.8 L Hct 38.1 L MCV 80.9 MCH 27.2 MCHC 33.6 RDW Std Deviation 39.2 RDW Coeff of Klaus 13.3 Plt Count 254 MPV 10.3 Immature Gran % (Auto) 0.100 Neut % (Auto) 56.1 Lymph % (Auto) 29.1 George % (Auto) 9.8 Eos % (Auto) 4.5 Baso % (Auto) 0.4 Absolute Neuts (auto) 4.1 Absolute Lymphs (auto) 2.11 Nucleated RBC % 0 Sodium 131 L Potassium 3.2 L Chloride 98 Carbon Dioxide 26.0 Anion Gap 7 BUN 7 Creatinine 0.78 Estim Creat Clear Calc 129.47 Est GFR (MDRD) Af Amer 149 Est GFR (MDRD) Non-Af 123 BUN/Creatinine Ratio 9.0 L Glucose 92 Calcium 8.6 Total Bilirubin 0.30 AST 9 L ALT 16 Alkaline Phosphatase 64 Total Protein 6.6 Albumin 3.4 Globulin 3.2 Albumin/Globulin Ratio 1.1 Lipase 183 Radiography Diagnostic Testing: Clinical Impression(s) from Imaging Studies Gallbladder Ultrasound 09/06/21 07:23 IMPRESSION: Normal right upper quadrant ultrasound examination. Electronically Signed: Sean Ferreira MD at 8:49 EDT , Rhythm Strip Rhythm Strip: Sinus Rhythm Rate: 62 Ectopy: None EKG Initial EKG: Attestation: I personally reviewed and interpreted this EKG as follows: Interpretation: Sinus Rhythm Comments: Normal sinus rhythm rate of 62 Normal axis Normal intervals Normal ST segments Discharge Plan Triage Chief Complaint: Abd Pain ED Provider: Gricel Talley Dx/Rx/DC Orders Clinical Impression: Abdominal pain, epigastric, Anxiety, Vomiting Instructions: ED PEPTIC ULCER vs GASTRITIS Prescriptions: New metoclopramide HCl [Reglan] 10 mg tablet 10 mg PO Q6H PRN (Reason: nausea and vomiting) Qty: 20 RF: 0 No Action trazodone 100 MG tablet 200 mg PO QHS RF: 0 lorazepam 0.5 MG tablet 0.5 mg PO TID PRN PRN (Reason: Stress and or anxiety) Qty: 6 RF: 0 diphenhydramine HCl [Benadryl] 25 mg Capsule 50 mg PO Q6H PRN (Reason: Sleep) RF: 0 quetiapine [Seroquel] 100 mg Tablet 100 mg PO QHS RF: 0 promethazine 25 mg tablet 25 mg PO TID PRN (Reason: allergy symptoms) Qty: 20 RF: 0 albuterol sulfate 90 mcg/actuation aerosol powdr breath activated 2 inh INHALATION Q6H PRN (Reason: shortness of breath or wheezing) Qty: 1 RF: 3 budesonide-formoterol [Symbicort] 160-4.5 mcg/actuation HFA aerosol inhaler 2 inh INHALATION BID Qty: 10.2 RF: 6 esomeprazole magnesium [Nexium] 40 mg capsule,delayed release(DR/EC) 40 mg PO BID Qty: 60 RF: 3 Primary Care Provider: Waylon Dye Referrals: Waylon Dye MD [Primary Care Provider] - Vishnu Herndon DO [STAFF PHYSICIAN] - Disposition Disposition: Home, Self Care Discharge Date/Time: 09/06/21 09:33
[2021-09-06] MEDS: LORazepam 0.5 MG Tablet PO (07:58)
[2021-09-06] MEDS: 0.9% Normal Saline 1,000 ML 1000 ML IV (07:58)
[2021-09-06 08:04] LABS: Absolute Lymphocyte Count 2.11 X10^3/uL (0.83-4.51); Absolute Neutrophil Count 4.1 X10^3/uL (2.0-7.7); Basophil# 0.03 X10^3/uL; Basophil% 0.4 % (0-1); Eosinophil# 0.33 X10^3/uL; Eosinophils% 4.5 % (0-5); Hematocrit 38.1 % (40-54); Hemoglobin 12.8 g/dL (13.0-16.5); Lymphocyte # 2.11 X10^3/ul (0.83-4.51); Lymphocyte % 29.1 % (19-41); Mean Corp Hgb Conc 33.6 g/dL (32-36); Mean Corpuscular Hgb 27.2 pg (27.0-32.0); Mean Corpuscular Volume 80.9 fL (80-94); Mean Platelet Vol. 10.3 fl (6.2-12.0); Monocyte# 0.71 X10^3/uL; Monocyte% 9.8 % (0-10); NRBC Flagged by Analyzer 0 % (0-5); Neutrophil # 4.07 X10^3/uL (2.7-7.7); Neutrophil % 56.1 % (47-70); Platelet Count 254 K/mm3 (150-450); RBC Distribution Width CV 13.3 % (11.6-14.6); RBC Distribution Width SD 39.2 fl (35.1-43.9); Red Blood Count 4.71 M/mm3 (4.6-6.2); White Blood Count 7.3 K/mm3 (4.4-11.0)
[2021-09-06 08:21] LABS: BUN 7 mg/dL (7-18); Creatinine, Serum 0.78 mg/dL (0.70-1.30); Estimated Creatinine Clearance 129.47 ml/min; Glucose 92 mg/dL (74-106)
[2021-09-06 08:22] LABS: ALB/GLOB Ratio 1.1 RATIO (0.9-2.4); AST(SGOT) 9 U/L (15-37); Alanine Aminotransfer ALT/SGPT 16 U/L (16-61); Albumin, Serum 3.4 g/dL (3.2-5.0); Alkaline Phosphatase 64 U/L (45-117); Anion Gap 7 (5-15); Calcium,Total 8.6 mg/dL (8.5-10.1); Chloride 98 mmol/L (98-107); EST Glomerular Filtration Rate 123 mL/min (>60); Est Glom Filt Rate - Afr Amer 149 mL/min (>60); Globulin 3.2 g/dL (2.2-4.2); Lipase 183 U/L (73-393); Potassium 3.2 mmol/L (3.5-5.1); Protein, Total 6.6 g/dL (6.4-8.2); Sodium Level 131 mmol/L (136-145)
[2021-09-06] MEDS: Metoclopramide 10 MG/2 ML Vial 5 MG IV (09:12)
--- NOTE | 2021-09-06 09:13 | ED.RN ---
pt called for his ride
[2021-09-06 09:17] VITALS: BP 138/71; PULSE 88; RESP 14; O2SAT 97
== END 2021-09-06 09:33 | disposition home or self-care (01) ==
PROVIDERS: Emergency Provider Emergency Medicine; PCP Family Medicine; Visit Provider Emergency Medicine
DX: R10.13 Epigastric pain (principal); F25.0 Schizoaffective disorder, bipolar type; F41.9 Anxiety disorder, unspecified; R11.2 Nausea with vomiting, unspecified; Z79.899 Other long term (current) drug therapy; Z87.891 Personal history of nicotine dependence
CPT/HCPCS: 76705; 80053; 83690; 85025; 93005; 96361; 96374; 99283; J7030; A4216; J3490

== ENCOUNTER 2021-12-27 15:05 | Emergency (ER) | payer MEDICAID, SELFPAY ==
[2021-12-27 15:05] VITALS: BP 108/79; PULSE 95; RESP 16; TEMP 36.2; O2SAT 98; BMI 28.1
--- NOTE | 2021-12-27 15:35 | EKG12_ITS ---
Test Reason : CP Blood Pressure : / mmHG Vent. Rate : 081 BPM Atrial Rate : 081 BPM P-R Int : 176 ms QRS Dur : 114 ms QT Int : 390 ms P-R-T Axes : 063 030 030 degrees QTc Int : 453 ms Normal sinus rhythm Normal ECG Confirmed by ENRIKE STEWART, DEWEY ([id number]), associate editor DESTINY SPARKS ([id number]) on 12/31/2021 8:59:56 AM Referred By: Confirmed By:RADHA CALVERT MD
--- NOTE | 2021-12-27 15:35 | EX.ED.DYSGE1 ---
HPI History of Present Illness Chief Complaint: General Illness Detail of Chief Complaint: Anxiety Informant: patient Narrative Narrative: Patient present secondary to worsening anxiety. He states he feels that he has frequent anxiety attacks and of the last 3 days that has not been able to get a break. He was recently ill with what he assumes was COVID. He states since that time he does really has not been able to get back to his baseline. He has increased stressors at home. He describes a pressure and burning sensation in his chest will radiate up to his jaw. He states he is tapering off of his steroid inhaler because he would get frequent thrush. [facility] Medical History Anxiety Asthma Bipolar 1 disorder Depression Former smoker History of alcohol abuse History of edema History of gastritis History of GERD History of pain when walking History of substance abuse Hx of fracture of tibia Marijuana use Restless legs Schizoaffective disorder, bipolar type SOB (shortness of breath) Wears glasses Home Medications trazodone 100 mg tablet 200 mg PO QHS 01/22/20 [History Last Taken Unknown] lorazepam 0.5 mg tablet 0.5 mg PO TID PRN PRN Stress and or anxiety #6 tabs 03/13/20 [Rx Last Taken Unknown] albuterol sulfate 90 mcg/actuation breath activated powder inhaler 2 inh inhalation Q6H PRN shortness of breath or wheezing #1 ea 02/20/21 [Rx Last Taken Unknown] quetiapine 100 mg tablet (Seroquel) 100 mg PO QHS 09/01/21 [History Last Taken Unknown] esomeprazole magnesium 40 mg capsule,delayed release See Rx Instructions .Route .COMPLEX #60 caps 09/27/21 [Rx Last Taken Unknown] lorazepam 0.5 mg tablet (Ativan) 0.5 mg PO TID PRN anxiety #10 tabs 12/27/21 [Rx Last Taken Unknown] nystatin 100,000 unit/mL oral suspension 5 ml PO Q6H #200 mL 12/27/21 [Rx Last Taken Unknown] Allergy/AdvReac Type Severity Reaction Status Date / Time ondansetron [From Zofran] AdvReac Other Verified 12/27/21 15:08 Social History Smoking Status: Former smoker quit date: 03/18/17 pack-years: 1 alcohol intake: former substance use type: does not use and other details: Former use of Marijuana ROS ROS ED Constitutional Constitutional ED: Denies chills or fever(s) Eyes Eyes: Denies change in vision or discharge from eye(s) ENT ENT ED: Reports other Details: Right upper dental pain ; Denies discharge from eye(s), rhinorrhea or sore throat Cardiovascular Cardiovascular: Reports chest pain; Denies palpitations Respiratory/Chest Respiratory/Chest: Reports dyspnea; Denies cough Gastrointestinal Gastrointestinal: Reports abdominal pain; Denies diarrhea, nausea or vomiting Genitourinary Genitourinary ED: Denies difficulty urinating or dysuria Musculoskeletal Musculoskeletal: Denies back pain or extremity pain Integumentary Denies Abrasions or rash Neurologic Neurologic: Denies headache(s) or weakness Psychiatric Psychiatric: Reports anxiety Allergic/Immunologic Allergic/Immunologic ED: Denies lip swelling or urticaria EXAM Physical Exam Const Vital Signs: 12/27/21 15:05 12/27/21 15:22 12/27/21 17:38 Temperature 97.1 F L Temperature Source Temporal Pulse Rate 95 66 Respiratory Rate 16 14 Respiratory Effort Short of Breath Respiratory Pattern Normal Blood Pressure 108/79 135/78 H Blood Pressure Mean 88 97 Pulse Ox 98 98 Oxygen Delivery Method Room Air Room Air Positive well nourished and well developed General Appearance ED: well developed HEENT Reports normocephalic and head/scalp atraumatic HEENT Narrative: Right maxillary premolar broken and decayed. No surrounding gum edema. Posterior pharynx exam normal. No facial edema or erythema. Eyes PERRL and EOMs intact bilaterally Neck supple Chest Wall inspection of chest normal and palpation of chest normal Resp normal respiratory effort and clear to auscultation bilaterally Cardio regular rate and regular rhythm GI normal to inspection, nondistended, normoactive bowel sounds Palpation: soft Extremity normal to inspection Neuro oriented x3 and no sensory deficits noted Sensorium / Orientation: alert Motor Exam: strength 5/5 throughout Psych mental status grossly normal Mood & Affect: anxious Skin no rashes or lesions noted MDM MDM MDM Narrative Medical decision making narrative: Patient placed on youth nutritional monitor. EKG and lab work obtained. Patient given IV dose of Ativan. Social work did speak with the patient. Lab Data Attestation: I reviewed the patient's lab results. Labs: Laboratory Results - last 24 hr 12/27/21 12/27/21 15:45 15:45 WBC 8.2 RBC 4.77 Hgb 13.0 Hct 38.8 L MCV 81.3 MCH 27.3 MCHC 33.5 RDW Std Deviation 38.3 RDW Coeff of Klaus 13.0 Plt Count 268 MPV 9.4 Immature Gran % (Auto) 0.200 Neut % (Auto) 66.7 Lymph % (Auto) 22.9 Mccormick % (Auto) 8.1 Eos % (Auto) 1.6 Baso % (Auto) 0.5 Absolute Neuts (auto) 5.5 Absolute Lymphs (auto) 1.89 Nucleated RBC % 0 Sodium 130 L Potassium 3.1 L Chloride 94 L Carbon Dioxide 26.0 Anion Gap 10 BUN 2 L Creatinine 0.87 Estim Creat Clear Calc 116.08 Est GFR (MDRD) Af Amer 132 Est GFR (MDRD) Non-Af 109 BUN/Creatinine Ratio 2.3 L Glucose 107 H Calcium 8.3 L Total Bilirubin 0.40 Direct Bilirubin 0.10 AST 9 L ALT 12 L Alkaline Phosphatase 62 Troponin I High Sens 4 Total Protein 6.9 Albumin 3.8 Globulin 3.1 Lipase 131 EKG Initial EKG: Attestation: I personally reviewed and interpreted this EKG as follows: Interpretation: Sinus Rhythm (Sinus 81 with no acute ischemia.) Treatment and Re-Evaluation Narrative: On repeat evaluation patient states he still has significant burning sensation in his chest. He is given a GI cocktail. This is followed by an additional dose of p.o. Ativan. At this time patient states overall he feels like he is improved. Lab work is unremarkable and EKG reveals no ischemia. Social work did talk to counseling center where he normally receives his treatment. I will write him for some nystatin swish and swallow as he is still concerned that he may have thrush in his esophagus as well as some Ativan to help with anxiety. Return instructions are provided. Discharge Plan Triage Chief Complaint: General Illness ED Provider: Joi Jones Dx/Rx/DC Orders Clinical Impression: Anxiety, Gastroesophageal reflux disease Instructions: ED Anxiety Reaction, ED GERD (Adult) Prescriptions: New nystatin 100,000 unit/mL suspension 5 ml PO Q6H Qty: 200 0RF Rx Instructions: swish and swallow lorazepam [Ativan] 0.5 mg tablet 0.5 mg PO TID PRN (Reason: anxiety) Qty: 10 0RF No Action trazodone 100 MG tablet 200 mg PO QHS lorazepam 0.5 MG tablet 0.5 mg PO TID PRN PRN (Reason: Stress and or anxiety) Qty: 6 0RF quetiapine [Seroquel] 100 mg Tablet 100 mg PO QHS albuterol sulfate 90 mcg/actuation aerosol powdr breath activated 2 inh INHALATION Q6H PRN (Reason: shortness of breath or wheezing) Qty: 1 3RF esomeprazole magnesium 40 mg capsule,delayed release(DR/EC) See Rx Instructions .ROUTE .COMPLEX Qty: 60 3RF Dose Instruction: TAKE 1 CAPSULE BY MOUTH TWICE DAILY Rx Instructions: TAKE 1 CAPSULE BY MOUTH TWICE DAILY Primary Care Provider: Waylon Dye Referrals: [facility] [Group of Physicians] - As soon as possible Waylon Dye MD [Primary Care Provider] - 1 Week Disposition Disposition: Home, Self Care
[2021-12-27 15:50] LABS: Absolute Lymphocyte Count 1.89 X10^3/uL (0.83-4.51); Absolute Neutrophil Count 5.5 X10^3/uL (2.0-7.7); Basophil# 0.04 X10^3/uL; Basophil% 0.5 % (0-1); Eosinophil# 0.13 X10^3/uL; Eosinophils% 1.6 % (0-5); Hematocrit 38.8 % (40-54); Lymphocyte # 1.89 X10^3/ul (0.83-4.51); Lymphocyte % 22.9 % (19-41); Mean Corp Hgb Conc 33.5 g/dL (32-36); Mean Corpuscular Hgb 27.3 pg (27.0-32.0); Mean Corpuscular Volume 81.3 fL (80-94); Mean Platelet Vol. 9.4 fl (6.2-12.0); Monocyte# 0.67 X10^3/uL; Monocyte% 8.1 % (0-10); NRBC Flagged by Analyzer 0 % (0-5); Neutrophil # 5.49 X10^3/uL (2.7-7.7); Neutrophil % 66.7 % (47-70); Platelet Count 268 K/mm3 (150-450); RBC Distribution Width SD 38.3 fl (35.1-43.9); Red Blood Count 4.77 M/mm3 (4.6-6.2); White Blood Count 8.2 K/mm3 (4.4-11.0)
[2021-12-27] MEDS: 0.9% Normal Saline 1,000 ML 1000 ML IV (15:50)
[2021-12-27] MEDS: LORazepam 2 MG/ML Syringe 0.5 MG IV (15:50)
[2021-12-27 16:24] LABS: AST(SGOT) 9 U/L (15-37); Alanine Aminotransfer ALT/SGPT 12 U/L (16-61); Albumin, Serum 3.8 g/dL (3.2-5.0); Alkaline Phosphatase 62 U/L (45-117); Anion Gap 10 (5-15); BUN 2 mg/dL (7-18); BUN/Creat Ratio 2.3 RATIO (10-20); Calcium,Total 8.3 mg/dL (8.5-10.1); Chloride 94 mmol/L (98-107); Creatinine, Serum 0.87 mg/dL (0.70-1.30); EST Glomerular Filtration Rate 109 mL/min (>60); Est Glom Filt Rate - Afr Amer 132 mL/min (>60); Estimated Creatinine Clearance 116.08 ml/min; Globulin 3.1 g/dL (2.2-4.2); Glucose 107 mg/dL (74-106); Lipase 131 U/L (73-393); Potassium 3.1 mmol/L (3.5-5.1); Protein, Total 6.9 g/dL (6.4-8.2); Sodium Level 130 mmol/L (136-145); Troponin-I HS 4 pg/mL (3.0-78.0)
[2021-12-27] MEDS: Potassium Chloride Oral Tablet 20 MEQ 40 MEQ PO (16:57)
--- NOTE | 2021-12-27 17:03 | ED.RN ---
Addendum entered by Anusha Morales 12/27/21 17:08: RN informed pt of drug and dose before administration. Educated once again after pt voiced concerns. Original Note: ativan given IV 0.5mg. Pt stated this RN gave placebo drug because he does not feel better. notified, Social work involved. Continuing to monitor pt sx. Given water.
[2021-12-27 17:38] VITALS: BP 135/78; PULSE 66; RESP 14; O2SAT 98
[2021-12-27] MEDS: Mag Hydrox/Al Hydrox/Simeth 30 ML UDC PO (17:39)
[2021-12-27] MEDS: LORazepam 1 MG Tablet PO (18:41)
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
--- NOTE | 2021-12-27 19:40 | CM.ED ---
Patient also completed safety plan. SW met with patient's girlfriend, Lashonda. Lashonda said that she is comfortable taking patient home. SW explained PHP/IOP program to Lashonda and she said it sounds good and receptive to patient attending the program. Patient voiced he also was interested in the program and never like that stuff when I was younger but now I know I need it. Copy of safety plan placed in the chart. Copy given to patient. No further SW needs at this time. Plan: Home on safety plan. Referral to IOP/PHP. Iris POLANCO
== END 2021-12-27 19:42 | disposition home or self-care (01) ==
PROVIDERS: Emergency Provider Emergency Medicine; PCP Family Medicine; Visit Provider Emergency Medicine
DX: F41.9 Anxiety disorder, unspecified (principal); F31.9 Bipolar disorder, unspecified; K21.9 Gastro-esophageal reflux disease without esophagitis; Z87.891 Personal history of nicotine dependence
CPT/HCPCS: 80048; 80076; 83690; 84484; 85025; 93005; 96361; 96374; 99284; J7030

== ENCOUNTER 2022-06-18 17:33 | Emergency (ER) | payer MEDICAID, SELFPAY ==
[2022-06-18 17:34] VITALS: BP 104/79; PULSE 119; RESP 16; TEMP 36.6; O2SAT 95; BMI 27.7
--- NOTE | 2022-06-18 18:30 | EDS_ITS ---
HPI History of Present Illness Chief Complaint: Anxiety Informant: patient Narrative Narrative: Patient presents with 2 issues today. 1 is that he is afraid he has thrush. He has been on inhaled steroid for a long time. He has now been weaning that down and is off of it. But he still has some irritation and white coloring of his tongue. It is still sore. No swelling. He is able to eat and drink. No fevers or chills. No other areas of infection or thrush. No history of HIV. He also states that he has had more anxiety recently. He does have a history of significant anxiety. He weaned Seroquel down to a reduced dose about 2 months ago. He also was able to stop trazodone about 2 months ago. He did both of these slowly. He was doing better. However, he then had multiple stressors. He quit smoking. In the last 2 weeks his girlfriend left him. He is not suicidal or homicidal but this did increase stress. He also got a new job. His biggest concern is that he does not want to have a panic attack or anxiety at the new job because he really wants to keep the job. He does have an appointment with his physician in 3 days but felt he needed something for anxiety prior to that so he can rest and function at his work. He has used low-dose of Ativan in the past. I did also obtain history from his [facility] online prescribing report. This is consistent with his story of getting small doses of Ativan. [facility] Medical History Anxiety Asthma Bipolar 1 disorder Depression Former smoker History of alcohol abuse History of edema History of gastritis History of GERD History of pain when walking History of substance abuse Hx of fracture of tibia Marijuana use Restless legs Schizoaffective disorder, bipolar type SOB (shortness of breath) Wears glasses Home Medications trazodone 100 mg tablet 200 mg PO QHS 01/22/20 [History Last Taken Unknown] lorazepam 0.5 mg tablet 0.5 mg PO TID PRN PRN Stress and or anxiety #6 tabs 03/13/20 [Rx Last Taken Unknown] albuterol sulfate 90 mcg/actuation breath activated powder inhaler 2 inh inhalation Q6H PRN shortness of breath or wheezing #1 ea 02/20/21 [Rx Last Taken Unknown] quetiapine 100 mg tablet (Seroquel) 100 mg PO QHS 09/01/21 [History Last Taken Unknown] lorazepam 0.5 mg tablet (Ativan) 0.5 mg PO TID PRN anxiety #10 tabs 12/27/21 [Rx Last Taken Unknown] nystatin 100,000 unit/mL oral suspension 5 ml PO Q6H #200 mL 12/27/21 [Rx Last Taken Unknown] doxycycline hyclate 100 mg capsule 100 mg PO BID #60 caps 01/22/22 [Rx Last Taken Unknown] esomeprazole magnesium 40 mg capsule,delayed release See Rx Instructions .Route .COMPLEX #60 caps 03/06/22 [Rx Last Taken Unknown] lorazepam 0.5 mg tablet (Ativan) 0.5 mg PO DAILY PRN anxiety #5 tabs 06/18/22 [Rx Last Taken Unknown] nystatin 100,000 unit/mL oral suspension 2 ml PO 4X/DAY #100 mL 06/18/22 [Rx Last Taken Unknown] Allergy/AdvReac Type Severity Reaction Status Date / Time ondansetron [From Zofran] AdvReac Other Verified 06/18/22 17:35 Social History Smoking Status: Former smoker quit date: 03/18/17 pack-years: 1 alcohol intake: former substance use type: does not use and other details: Former use of Marijuana ROS ROS ED Constitutional Constitutional ED: Denies chills or fever(s) Eyes Eyes: Denies change in vision ENT ENT ED: Reports other Details: Irritated tongue as in history of present illness. ; Denies rhinorrhea or sore throat Cardiovascular Cardiovascular: Denies chest pain or palpitations Respiratory/Chest Respiratory/Chest: Denies cough Gastrointestinal Gastrointestinal: Denies nausea or vomiting Musculoskeletal Musculoskeletal: Denies myalgias Integumentary Denies rash Neurologic Neurologic: Denies headache(s) Psychiatric Psychiatric: Reports anxiety; Denies depression, suicidal ideation or suicidal thoughts Endocrine Endocrinology: Denies polydipsia or polyuria Hematologic/Lymphatic Hematologic/Lymphatic: Denies easy bleeding, easy bruising or lymphadenopathy Allergic/Immunologic Allergic/Immunologic ED: Denies urticaria EXAM Physical Exam Narrative Exam Narrative: He justPatient awake alert rest. He does give a good history. He does appear to be anxious. HEENT shows a little bit of white coating on the tongue. Not on the palate. No swelling of the throat or tonsils. Voice is normal. Handling secretions normally. No dental type pain or tenderness. Neck shows no JVD. There is no lymphadenopathy. Lungs are clear bilaterally Heart is regular but is at about 95. No murmur gallop or rub. Pulses are equal and normal. Abdomen is soft nontender. no CVA or suprapubic tenderness He has no swelling or tenderness of extremities. No rash. Neurologically he is awake alert and appropriate Psychiatry: He does appear anxious. But he is not suicidal homicidal. He makes excellent eye contact. He has a very positive view for the future. Const Vital Signs: 06/18/22 17:34 Temperature 98 F Temperature Source Temporal Pulse Rate 119 H Respiratory Rate 16 Blood Pressure 104/79 Blood Pressure Mean 87 Pulse Ox 95 Oxygen Delivery Method Room Air MDM MDM MDM Narrative Medical decision making narrative: Patient may have some subtle thrush. I will write for some nystatin for short period of time. This should resolve quickly because he is now off of his steroid inhaler. He is not having respiratory issues. I will write for a few Ativan. I think it would be a greater stress on this patient to lose his job due to severe anxiety. He does have an appointment with his physician in a few days also. We discussed reasons to return. Discharge Plan Triage Chief Complaint: Anxiety ED Provider: Stu Loving Dx/Rx/DC Orders Clinical Impression: Anxiety, Oral thrush Instructions: Renetta Infection: Thrush, ED Anxiety Reaction Prescriptions: New lorazepam [Ativan] 0.5 mg tablet 0.5 mg PO DAILY PRN (Reason: anxiety) Qty: 5 0RF nystatin 100,000 unit/mL suspension 2 ml PO 4X/DAY Qty: 100 0RF Rx Instructions: Put 1 mL in each side of mouth 4 times a day. No Action trazodone 100 MG tablet 200 mg PO QHS lorazepam 0.5 MG tablet 0.5 mg PO TID PRN PRN (Reason: Stress and or anxiety) Qty: 6 0RF quetiapine [Seroquel] 100 mg Tablet 100 mg PO QHS nystatin 100,000 unit/mL suspension 5 ml PO Q6H Qty: 200 0RF Rx Instructions: swish and swallow lorazepam [Ativan] 0.5 mg tablet 0.5 mg PO TID PRN (Reason: anxiety) Qty: 10 0RF albuterol sulfate 90 mcg/actuation aerosol powdr breath activated 2 inh INHALATION Q6H PRN (Reason: shortness of breath or wheezing) Qty: 1 3RF doxycycline hyclate 100 mg capsule 100 mg PO BID Qty: 60 0RF esomeprazole magnesium 40 mg capsule,delayed release(DR/EC) See Rx Instructions .ROUTE .COMPLEX Qty: 60 0RF Dose Instruction: TAKE 1 CAPSULE BY MOUTH TWICE DAILY Rx Instructions: TAKE 1 CAPSULE BY MOUTH TWICE DAILY Primary Care Provider: Waylon Dye Referrals: Waylon Dye MD [Primary Care Provider] - As soon as possible (See as scheduled in 3 days) Disposition Disposition: Home, Self Care
== END 2022-06-18 19:05 | disposition home or self-care (01) ==
PROVIDERS: Emergency Provider Emergency Medicine; PCP Family Medicine; Visit Provider Emergency Medicine
DX: B37.0 Candidal stomatitis (principal); F41.9 Anxiety disorder, unspecified; Z87.891 Personal history of nicotine dependence; J45.909 Unspecified asthma, uncomplicated
CPT/HCPCS: 99282

== ENCOUNTER 2022-09-03 21:20 | Emergency (ER) | payer MEDICAID, SELFPAY ==
[2022-09-03 21:22] VITALS: BP 149/103; PULSE 105; RESP 15; TEMP 36.6; O2SAT 97
--- NOTE | 2022-09-03 21:24 | EKG12_ITS ---
Test Reason : CP Blood Pressure : / mmHG Vent. Rate : 103 BPM Atrial Rate : 103 BPM P-R Int : 140 ms QRS Dur : 096 ms QT Int : 340 ms P-R-T Axes : 026 018 014 degrees QTc Int : 445 ms Sinus tachycardia Otherwise normal ECG Confirmed by MALIK STEWART, DEANN ([id number]), scientific publications editor DESTINY SPARKS ([id number]) on 09/05/2022 8:11:56 AM Referred By: ITZEL Confirmed By:DEANN GAN MD
[2022-09-03 21:49] LABS: Absolute Lymphocyte Count 1.13 X10^3/uL (0.83-4.51); Basophil# 0.03 X10^3/uL; Basophil% 0.3 % (0-1); Eosinophil# 0.09 X10^3/uL; Hematocrit 41.4 % (40-54); Hemoglobin 13.3 g/dL (13.0-16.5); Lymphocyte # 1.13 X10^3/ul (0.83-4.51); Lymphocyte % 12.3 % (19-41); Mean Corp Hgb Conc 32.1 g/dL (32-36); Mean Corpuscular Hgb 27.9 pg (27.0-32.0); Mean Corpuscular Volume 86.8 fL (80-94); Mean Platelet Vol. 10.1 fl (6.2-12.0); Monocyte# 0.99 X10^3/uL; Monocyte% 10.7 % (0-10); NRBC Flagged by Analyzer 0 % (0-5); Neutrophil # 6.95 X10^3/uL (2.7-7.7); Neutrophil % 75.4 % (47-70); Platelet Count 270 K/mm3 (150-450); RBC Distribution Width CV 13.9 % (11.6-14.6); RBC Distribution Width SD 44.4 fl (35.1-43.9); Red Blood Count 4.77 M/mm3 (4.6-6.2); White Blood Count 9.2 K/mm3 (4.4-11.0)
--- NOTE | 2022-09-03 22:02 | ED.VIS.CHEST ---
HPI History of Present Illness Chief Complaint: Chest Pain Detail of Chief Complaint: Chest pain Informant: patient Narrative Narrative: Patient presents to the emergency department with complaint of chest discomfort for the last 2 nights in the right chest that is worse with breathing and cough. Patient states that several other coworkers are ill at work with similar complaints. Patient is coughing and at times bringing up some yellow sputum. He complains of wheezing. He does have history of asthma and uses an inhaler albuterol as well as Symbicort. Patient denies fevers. Denies recent travel or surgery. [facility] Medical History Anxiety Asthma Bipolar 1 disorder Depression Former smoker History of alcohol abuse History of edema History of gastritis History of GERD History of pain when walking History of substance abuse Hx of fracture of tibia Marijuana use Restless legs Schizoaffective disorder, bipolar type SOB (shortness of breath) Wears glasses Home Medications trazodone 100 mg tablet 200 mg PO QHS 01/22/20 [History Last Taken Unknown] lorazepam 0.5 mg tablet 0.5 mg PO TID PRN PRN Stress and or anxiety #6 tabs 03/13/20 [Rx Last Taken Unknown] albuterol sulfate 90 mcg/actuation breath activated powder inhaler 2 inh inhalation Q6H PRN shortness of breath or wheezing #1 ea 02/20/21 [Rx Last Taken Unknown] quetiapine 100 mg tablet (Seroquel) 100 mg PO QHS 09/01/21 [History Last Taken Unknown] lorazepam 0.5 mg tablet (Ativan) 0.5 mg PO TID PRN anxiety #10 tabs 12/27/21 [Rx Last Taken Unknown] nystatin 100,000 unit/mL oral suspension 5 ml PO Q6H #200 mL 12/27/21 [Rx Last Taken Unknown] doxycycline hyclate 100 mg capsule 100 mg PO BID #60 caps 01/22/22 [Rx Last Taken Unknown] esomeprazole magnesium 40 mg capsule,delayed release See Rx Instructions .Route .COMPLEX #60 caps 03/06/22 [Rx Last Taken Unknown] lorazepam 0.5 mg tablet (Ativan) 0.5 mg PO DAILY PRN anxiety #5 tabs 06/18/22 [Rx Last Taken Unknown] nystatin 100,000 unit/mL oral suspension 2 ml PO 4X/DAY #100 mL 06/18/22 [Rx Last Taken Unknown] prednisone 20 mg tablet 20 mg PO BID #10 tabs 09/03/22 [Rx Last Taken Unknown] Allergy/AdvReac Type Severity Reaction Status Date / Time ondansetron [From Zofran] AdvReac Other Verified 09/03/22 21:24 Social History Smoking Status: Former smoker quit date: 03/18/17 pack-years: 1 alcohol intake: former substance use type: does not use and other details: Former use of Marijuana ROS ROS ED Review of Systems ROS Unobtainable: other Constitutional Constitutional ED: Reports lethargy; Denies chills, fever(s), sweats or weight loss Eyes Eyes: Denies blurry vision, change in vision or diplopia ENT ENT ED: Denies rhinorrhea or sore throat Cardiovascular Cardiovascular: Reports chest pain; Denies orthopnea or racing heartbeat Respiratory/Chest Respiratory/Chest: Reports cough, dyspnea and sputum; Denies dyspnea on exertion or orthopnea Gastrointestinal Gastrointestinal: Denies abdominal pain, diarrhea, nausea or vomiting Genitourinary Genitourinary ED: Denies dysuria, hematuria or urinary frequency Musculoskeletal Musculoskeletal: Denies arthralgias, back pain, myalgias or neck pain Integumentary Denies abscess, Abrasions or rash Neurologic Neurologic: Denies headache(s) or weakness Psychiatric Psychiatric: Denies anxiety, depression or suicidal thoughts Endocrine Endocrinology: Denies polydipsia, polyphagia or polyuria Hematologic/Lymphatic Hematologic/Lymphatic: Denies easy bleeding, easy bruising or lymphadenopathy Allergic/Immunologic Allergic/Immunologic ED: Denies mouth swelling, tongue swelling or urticaria EXAM Physical Exam Const Vital Signs: 09/03/22 21:22 09/03/22 22:02 09/03/22 22:03 Temperature 97.8 F Temperature Source Temporal Pulse Rate 105 H Respiratory Rate 15 Respiratory Effort Normal Non-Labored Respiratory Pattern Blood Pressure 149/103 H Blood Pressure Mean 118 Pulse Ox 97 97 Oxygen Delivery Method Room Air Room Air 09/03/22 22:21 09/03/22 22:08 09/03/22 23:00 Temperature Temperature Source Pulse Rate 100 98 97 Respiratory Rate 19 H 18 17 Respiratory Effort Respiratory Pattern Normal Blood Pressure 129/100 H Blood Pressure Mean 109 Pulse Ox 97 97 Oxygen Delivery Method Room Air Room Air Positive well nourished and well developed General Appearance ED: well developed and NAD HEENT Reports TM's clear and moist mucous membranes normocephalic and atraumatic; Negative for trauma or tenderness Tympanic Membrane ED: Yes TM's clear Eyes PERRL and EOMs intact bilaterally General Eye ED: Negative for pale conjunctiva or scleral icterus Neck no lymphadenopathy, supple and no JVD General: Negative for tenderness Chest Wall inspection of chest normal and palpation of chest normal Chest: Negative for tenderness Resp normal respiratory effort Resp Narrative: Expiratory wheezes bilaterally. No accessory muscle use or retractions. Effort and Inspection: Negative for respiratory distress or pain with movement Auscultation: wheezes; Negative for rhonchi or diminished lung sounds Cardio regular rate, regular rhythm, S1 normal heart sound, S2 normal heart sound and no murmurs Peripheral Pulses: pulses 2+ throughout GI normal to inspection, nondistended, normoactive bowel sounds, soft to palpation, non-tender, non-distended and no masses Back/Spine no CVA tenderness and no thoracic nor lumbar tenderness Extremity normal to inspection General Extremety ED: Negative for edema General Extremity: Negative for edema Neuro oriented x3, CN's II-XII intact bilaterally, no sensory deficits noted and gait normal Sensorium / Orientation: awake, alert, oriented to person, oriented to place and oriented to time Motor Exam: strength 5/5 throughout and strength abnormal Psych mental status grossly normal Skin no rashes or lesions noted and no wounds MDM MDM MDM Narrative Medical decision making narrative: Patient with cough and wheezing for 2 days. Differential would be viral infection versus asthma versus bacterial infection. Patient has no risk factors for PE. On arrival nursing staff via protocol ordered EKG which showed a sinus rhythm with a ventricular rate of 103 bpm with no acute ST segment changes. CBC with differential was normal. Chemistries normal. Troponin was negative. Patient had a chest x-ray that showed no acute disease process. COVID and flu testing were negative. While in the department he received DuoNeb aerosol and he was given prednisone p.o. He was feeling anxious and received a milligram of Ativan as well. Patient will be discharged to home. He is given a prescription for prednisone. He is to continue with his inhaler. Patient to follow-up with primary care physician within next 3 to 5 days. He is to return if increasing shortness of breath or condition worsen anyway. I suspect likely viral URI/asthmatic bronchitis Lab Data Attestation: I reviewed the patient's lab results. Labs: Laboratory Results - last 24 hr 09/03/22 09/03/22 21:42 21:42 WBC 9.2 RBC 4.77 Hgb 13.3 Hct 41.4 MCV 86.8 MCH 27.9 MCHC 32.1 RDW Std Deviation 44.4 H RDW Coeff of Klaus 13.9 Plt Count 270 MPV 10.1 Immature Gran % (Auto) 0.300 Neut % (Auto) 75.4 H Lymph % (Auto) 12.3 L Alfalfa % (Auto) 10.7 H Eos % (Auto) 1.0 Baso % (Auto) 0.3 Absolute Neuts (auto) 7.0 Absolute Lymphs (auto) 1.13 Nucleated RBC % 0 Sodium 135 L Potassium 3.7 Chloride 100 Carbon Dioxide 26.0 Anion Gap 9 BUN 3 L Creatinine 0.93 Estim Creat Clear Calc 107.60 Est GFR (MDRD) Af Amer 121 Est GFR (MDRD) Non-Af 100 BUN/Creatinine Ratio 3.2 L Glucose 124 H Calcium 8.6 Troponin I High Sens 5 Radiography Diagnostic Testing: Clinical Impression(s) from Imaging Studies Chest X-Ray 09/03/22 22:10 IMPRESSION: No acute cardiopulmonary disease. Electronically Signed: Rusty Smith MD at 22:58 EDT Reading Location ID and State: [address] [place] [address] Tel , Service support , 1 view chest x-ray obtained interpreted by myself as no evidence of infiltrate or pneumothorax or acute disease process. Radiology in agreement. EKG Initial EKG: Attestation: I personally reviewed and interpreted this EKG as follows: Comments: Sinus rhythm with a rate of 103 bpm with no acute ST segment changes Discharge Plan Triage Chief Complaint: Chest Pain ED Provider: Florentino Cardona Dx/Rx/DC Orders Clinical Impression: Acute asthmatic bronchitis, Viral URI Instructions: ED Bronchitis with Wheezing (Adult) Prescriptions: New prednisone 20 mg tablet 20 mg PO BID Qty: 10 0RF No Action trazodone 100 MG tablet 200 mg PO QHS lorazepam 0.5 MG tablet 0.5 mg PO TID PRN PRN (Reason: Stress and or anxiety) Qty: 6 0RF quetiapine [Seroquel] 100 mg Tablet 100 mg PO QHS nystatin 100,000 unit/mL suspension 5 ml PO Q6H Qty: 200 0RF Rx Instructions: swish and swallow lorazepam [Ativan] 0.5 mg tablet 0.5 mg PO TID PRN (Reason: anxiety) Qty: 10 0RF lorazepam [Ativan] 0.5 mg tablet 0.5 mg PO DAILY PRN (Reason: anxiety) Qty: 5 0RF nystatin 100,000 unit/mL suspension 2 ml PO 4X/DAY Qty: 100 0RF Rx Instructions: Put 1 mL in each side of mouth 4 times a day. albuterol sulfate 90 mcg/actuation aerosol powdr breath activated 2 inh INHALATION Q6H PRN (Reason: shortness of breath or wheezing) Qty: 1 3RF doxycycline hyclate 100 mg capsule 100 mg PO BID Qty: 60 0RF esomeprazole magnesium 40 mg capsule,delayed release(DR/EC) See Rx Instructions .ROUTE .COMPLEX Qty: 60 0RF Dose Instruction: TAKE 1 CAPSULE BY MOUTH TWICE DAILY Rx Instructions: TAKE 1 CAPSULE BY MOUTH TWICE DAILY Primary Care Provider: Waylon Dye Referrals: Waylon Dye MD [Primary Care Provider] - 3-5 Days Disposition Disposition: Home, Self Care
[2022-09-03 22:03] VITALS: O2SAT 97; BMI 26.5
[2022-09-03 22:08] VITALS: PULSE 98; RESP 18
[2022-09-03 22:08] LABS: Anion Gap 9 (5-15); BUN 3 mg/dL (7-18); BUN/Creat Ratio 3.2 RATIO (10-20); Calcium,Total 8.6 mg/dL (8.5-10.1); Chloride 100 mmol/L (98-107); Creatinine, Serum 0.93 mg/dL (0.70-1.30); EST Glomerular Filtration Rate 100 mL/min (>60); Est Glom Filt Rate - Afr Amer 121 mL/min (>60); Glucose 124 mg/dL (74-106); Potassium 3.7 mmol/L (3.5-5.1); Sodium Level 135 mmol/L (136-145); Troponin-I HS (w/2H Reflex) 5 pg/mL (3.0-78.0)
[2022-09-03] MEDS: Ipratropium/Albuterol Sulfate 3 ML AMPUL.NEB INHALATION (22:08)
[2022-09-03] MEDS: predniSONE 20 MG Tablet 40 MG PO (22:08)
--- NOTE | 2022-09-03 22:10 | RAD_ITS ---
INDICATION: chest pain EXAMINATION/TECHNIQUE: X-RAY - XR Chest 1 View COMPARISON: 01/22/2020 FINDINGS: LINES/DEVICES: None. LUNGS: No consolidation, edema or effusion. No pneumothorax. MEDIASTINUM AND CARDIOVASCULAR STRUCTURES: Cardiac silhouette not enlarged. Central airways and mediastinal contour are unremarkable. BONES AND SOFT TISSUES: Unremarkable. RAD/Chest 1 View (Portable) IMPRESSION: No acute cardiopulmonary disease. Electronically Signed: Rusty Smith MD at 22:58 EDT ,
[2022-09-03 22:21] VITALS: BP 129/100; PULSE 100; RESP 19; O2SAT 97
[2022-09-03 23:00] VITALS: PULSE 97; RESP 17; O2SAT 97
[2022-09-03] MEDS: LORazepam 2 MG/ML Syringe 1 MG IV (23:11)
[2022-09-03 23:13] VITALS: PULSE 95; RESP 15; O2SAT 99
== END 2022-09-03 23:26 | disposition home or self-care (01) ==
PROVIDERS: Emergency Provider Emergency Medicine; PCP Family Medicine; Visit Provider Emergency Medicine
DX: J06.9 Acute upper respiratory infection, unspecified (principal); J45.909 Unspecified asthma, uncomplicated; Z87.891 Personal history of nicotine dependence; Z79.52 Long term (current) use of systemic steroids
CPT/HCPCS: 71045; 80048; 84484; 85025; 87428; 93005; 94640; 96374; 99285; A4216

== ENCOUNTER 2022-09-17 01:45 | Emergency (ER) | payer MEDICAID, SELFPAY ==
[2022-09-17 01:48] VITALS: BP 128/83; PULSE 89; RESP 18; TEMP 36.6; O2SAT 97; BMI 27.9
--- NOTE | 2022-09-17 02:14 | ED.VIS.LOWEX ---
HPI History of Present Illness HPI Narrative: [place] stuck in his right foot. Chief Complaint: Lower Extremity Injury Informant: patient Occured/Mechanism Mechanism/Context: Yes injury Onset/Context/Timing Onset: Today Context: Sudden Onset Timing: Continuous Quality of Pain: Sharp Current Severity: Mild Maximum Severity: Mild Associated Symptoms Associated Symptoms: Negative for Parasthesia, Weakness or Loss of Funtion Narrative Narrative: 32-year-old male past medical history of asthma. Unsure of his last tetanus shot. Stepped on a fishhook about an hour ago and needs to have removed from the bottom of his right foot. Prior history of the same. Denies other complaints. Tetanus Immunization: Unknown Prior similar symptoms: Yes Recent Illness/Hospitalization: No PFSH PFSH Medical History Anxiety Asthma Depression Home Medications cephalexin 500 mg capsule 500 mg PO TID 5 days #15 caps 09/17/22 [Rx Last Taken Unknown] clonidine HCl 0.2 mg tablet 0.2 mg PO BID 09/17/22 [History Last Taken Unknown] quetiapine 100 mg tablet (Seroquel) 150 mg PO QHS 09/17/22 [History Last Taken Unknown] Social History Smoking Status: Current every day smoker tobacco type: cigarettes ROS ROS ED ROS Narrative Denies recent illness. Review of Systems ROS Unobtainable: Denies due to encephalopathy Constitutional Constitutional ED: Denies chills or fever(s) Eyes Eyes: Denies blurry vision ENT ENT ED: Denies ear pain Cardiovascular Cardiovascular: Denies chest pain Respiratory/Chest Respiratory/Chest: Denies cough or dyspnea Gastrointestinal Gastrointestinal: Denies abdominal pain Genitourinary Genitourinary ED: Denies dysuria or hematuria Musculoskeletal Musculoskeletal: Denies arthralgias Integumentary Denies Abrasions Neurologic Neurologic: Denies headache(s) Psychiatric Psychiatric: Denies anxiety Endocrine Endocrinology: Denies polydipsia Hematologic/Lymphatic Hematologic/Lymphatic: Denies easy bleeding Allergic/Immunologic Allergic/Immunologic ED: Denies mouth swelling or tongue swelling EXAM Physical Exam Narrative Exam Narrative: Well-appearing 32-year-old male. Vital signs stable afebrile. Exam normal except bottom of his right foot below his metatarsal of his great toe he has a fishhook stuck under the skin. He will need to be removed. No infection. Neurovascular intact. Const Vital Signs: 09/17/22 01:48 Temperature 97.8 F Temperature Source Temporal Pulse Rate 89 Respiratory Rate 18 Blood Pressure 128/83 H Blood Pressure Mean 98 Pulse Ox 97 Oxygen Delivery Method Room Air Positive well nourished and well developed; Negative for cachectic, contractures or unkempt General Appearance ED: well developed and NAD; Negative for unkempt, cachectic or contractures Nutritional Appearance: Negative for cachectic HEENT Reports moist mucous membranes normocephalic and atraumatic; Negative for trauma or tenderness Eyes PERRL Neck full ROM and supple Lymph Lymphatic: Negative for other Chest Wall inspection of chest normal and palpation of chest normal Resp normal respiratory effort, no retractions and clear to auscultation bilaterally Effort and Inspection: Negative for pain with movement Auscultation: Negative for rales, rhonchi or wheezes Cardio regular rate, regular rhythm, S1 normal heart sound, S2 normal heart sound and no murmurs GI non-tender, non-distended and no masses Auscultation: normoactive bowel sounds Palpation: soft Extremity normal to inspection Extremity Narrative: Except fishhook stuck in the bottom of his right foot below his metatarsal of his right great toe. No infection. No active bleeding. Neurovascular intact. Neuro oriented x3, CN's II-XII intact bilaterally and moves all extremities Sensorium / Orientation: alert, oriented to person, oriented to place and oriented to time; Negative for orientation impaired, confused, lethargic or stuporous Motor Exam: strength 5/5 throughout Psych mental status grossly normal Appearance: Negative for unkempt Speech: No other Mood & Affect: Negative for anxious Skin no wounds Lesions: no lesions Rashes: no rashes Trauma: Negative for abrasion or laceration MDM MDM MDM Narrative Medical decision making narrative: 32-year-old male stepped on a fishhook will need it removed from his right foot. Let will be applied. We are going to try to determine if he needs a tetanus shot or not. He cannot remember his last tetanus shot. Was able to get the fishhook out without any difficulty. His tetanus will be updated less we can find evidence that he has had 1 in the last 10 years. We placed on Keflex 503 times a day for 5 days. Watch for any signs of infection. Wound care. Return if worse. Procedures Other Procedures Procedure(s): Right foot foreign body removal. [place] with the roddy and below his right great toe metatarsal. Local anesthetized with let. Injection with plain lidocaine. I was able to push the hook through. Isolate the roddy. I cut the end off with the roddy. And pulled the hook back through. Patient tolerated it well. No signs of infection. No need for any x-ray because the hook came out in 1 piece. Discharge Plan Triage Chief Complaint: Lower Extremity Injury ED Provider: Vinicius Lainez Dx/Rx/DC Orders Clinical Impression: Acute foreign body of right foot Instructions: ED Foreign Body, Soft Tissue (Removed) Prescriptions: New cephalexin 500 mg capsule 500 mg PO TID 5 Days Qty: 15 0RF No Action quetiapine [Seroquel] 100 mg Tablet 150 mg PO QHS clonidine HCl 0.2 mg Tablet 0.2 mg PO BID Primary Care Provider: Waylon Dye Referrals: Waylon Dye MD [Primary Care Provider] - Activity Restrictions/Additional Instructions: Clean the wound daily with soap and water. Dry thoroughly. Apply antibiotic ointment. You will be placed on antibiotic Keflex for 5 days to try to prevent any infection. If it becomes significantly red, swollen, pus, red streaks or fever needs to be reevaluated. Disposition Disposition: Home, Self Care
[2022-09-17] MEDS: Lidocaine/Epi/Tetracaine 50 ML 1 APPLIC TOPICAL (02:20)
[2022-09-17] MEDS: Cephalexin 250 MG Capsule 500 MG PO (03:15)
[2022-09-17] MEDS: Diphth,Pertuss(Acell),Tet Vac 0.5 ML Vial IM (03:16)
== END 2022-09-17 03:21 | disposition home or self-care (01) ==
PROVIDERS: Emergency Provider Emergency Medicine; PCP Family Medicine; Visit Provider Emergency Medicine
DX: S91.341A Puncture wound with foreign body, right foot, initial encounter (principal); W22.8XXA Striking against or struck by other objects, initial encounter; Z23 Encounter for immunization; J45.909 Unspecified asthma, uncomplicated; F17.210 Nicotine dependence, cigarettes, uncomplicated; Z79.899 Other long term (current) drug therapy
CPT/HCPCS: 90471; 90715; 99285

== ENCOUNTER 2023-01-04 14:38 | Emergency (ER) | payer MEDICAID, SELFPAY ==
[2023-01-04 14:40] VITALS: BP 109/61; PULSE 73; RESP 14; TEMP 36.4; O2SAT 98; BMI 25.7
--- NOTE | 2023-01-04 15:11 | EX.ED.GUMALE ---
HPI <BECKY Eisenberg - Last Filed: 01/04/23 16:02> History of Present Illness Chief Complaint: Male Pain/Injury Narrative Narrative: Patient is a 33-year-old male with history of anxiety, depression, schizoaffective disorder, and to the emergency department for a sustained erection. Patient states he woke up at around 10 AM, he has had an erection since, he states he is having significant pain, he is anxious and is here for evaluation. Patient states that he did not use any other of his medications other than Seroquel last evening. He does not use any drugs other than he rolls his own tobacco cigarettes. He denies any sexual encounter in the last 24 hours, denies any use of this. Patient woke up and felt that he had pressure in his midsection. He noticed he had an erection. He has had an erection since is having significant pain. He is also very anxious. [facility] <BECKY Eisenberg - Last Filed: 01/04/23 16:02> [facility] Medical History Anxiety Asthma Bipolar 1 disorder Depression Former smoker History of alcohol abuse History of edema History of gastritis History of GERD History of pain when walking History of substance abuse Hx of fracture of tibia Marijuana use Restless legs Schizoaffective disorder, bipolar type SOB (shortness of breath) Wears glasses Home Medications doxycycline hyclate 100 mg capsule 100 mg PO BID #60 caps 01/22/22 [Rx Last Taken Unknown] cephalexin 500 mg capsule 500 mg PO TID 5 days #15 caps 09/17/22 [Rx Last Taken Unknown] clonidine HCl 0.2 mg tablet 0.2 mg PO BID 09/17/22 [History Last Taken Unknown] quetiapine 100 mg tablet (Seroquel) 150 mg PO QHS 09/17/22 [History Last Taken Unknown] budesonide-formoterol HFA 80 mcg-4.5 mcg/actuation aerosol inhaler (Symbicort) inhalation 01/04/23 [History Last Taken Unknown] lorazepam 0.5 mg tablet 0.5 mg PO DAILY PRN Stress and or anxiety 01/04/23 [History Last Taken Unknown] ropinirole 0.25 mg tablet 0.25 mg PO QHS 01/04/23 [History Last Taken Unknown] Allergy/AdvReac Type Severity Reaction Status Date / Time ondansetron [From Zofran] AdvReac Other Verified 01/04/23 14:40 Social History (System 10/08/22 @ 09:30 by Lanie Tobar) Smoking Status: Current every day smoker tobacco type: cigarettes and smokeless tobacco alcohol intake: former substance use type: does not use and other details: Former use of Marijuana ROS <BECKY Eisenberg - Last Filed: 01/04/23 16:02> ROS ED ROS Narrative Constitutional: Negative for fever, chills, weight loss, weakness Eyes: Negative for vision loss, vision change, double vision ENT: Negative for any sore throat, ear pain, congestion Cardiovascular: Negative for any chest pain, tightness, palpitations Respiratory: Negative for any cough, sputum production, hemoptysis, dyspnea, dyspnea on exertion, orthopnea Gastrointestinal: Negative for any abdominal pain, nausea, vomiting, diarrhea, constipation, blood in stool, blood in vomit : Negative for any urinary frequency, dysuria, retention, blood in urine. Positive for erection Muscle skeletal: Negative for any muscle joint pain, stiffness, myalgias, arthralgias, neck pain, back pain Neurological: Negative for any headache, syncope, numbness or tingling, dizziness Skin: Negative for any rashes, lumps, itching, abrasions, lacerations Psychiatric: Negative for any depression, anxiety, stress, suicidal ideation, homicidal ideation Hematologic: Negative for any easy bruising, excessive bruising, easy bleeding Allergies: Negative for any eczema, hives, rash EXAM <BECKY Eisenberg - Last Filed: 01/04/23 16:02> Physical Exam Narrative Exam Narrative: Vital signs reviewed. HEET: Head normocephalic atraumatic, TMs clear bilaterally. Posterior pharynx is clear, moist mucous membranes. Nares clear bilaterally. Neck: Supple with no lymphadenopathy or tenderness. No signs of meningismus, negative jolt sign. Cardiac: Regular rate and rhythm no murmurs gallops or rubs, equal peripheral pulses bilaterally. Respiratory: Lungs clear to auscultation bilaterally. No chest tenderness. Abdomen: Soft, nontender, nondistended. No abdominal bruit or pulsatile masses. No hepatosplenomegaly Extremities: No peripheral edema, no signs of gross trauma or deformity. Active full range of motion of all extremities. Neuro: Cranial nerves II through XII intact, no focal neurological deficits. Skin: Clean dry and intact with no rash, purpura, petechiae, vesicles or pustules. Backs/flank: No CVA tenderness, no midline spinal tenderness, no deformity. Psych: Normal mood and affect. No SI, HI or acute psychosis. : Patient has an erection, there is no significant swelling, redness. Patient is no testicular swelling or pain. Patient does have pain in the perineal area however he thinks it is from having a consistent erection. There is no lesions noted. Const Vital Signs: 01/04/23 14:40 Temperature 97.6 F L Temperature Source Temporal Pulse Rate 73 Respiratory Rate 14 Blood Pressure 109/61 Blood Pressure Mean 77 Pulse Ox 98 Oxygen Delivery Method Room Air Positive well nourished and well developed General Appearance ED: well developed <Dr. Vinicius Lainez MD - Last Filed: 01/04/23 15:25> Physical Exam Const Vital Signs: 01/04/23 14:40 Temperature 97.6 F L Temperature Source Temporal Pulse Rate 73 Respiratory Rate 14 Blood Pressure 109/61 Blood Pressure Mean 77 Pulse Ox 98 Oxygen Delivery Method Room Air MDM <BECKY Eisenberg - Last Filed: 01/04/23 16:02> [facility] Lab Data Labs: Laboratory Results - last 24 hr 01/04/23 15:11 WBC 8.5 RBC 4.46 L Hgb 13.0 Hct 39.7 L MCV 89.0 MCH 29.1 MCHC 32.7 RDW Std Deviation 46.1 H RDW Coeff of Klaus 14.3 Plt Count 250 MPV 10.9 Immature Gran % (Auto) 0.400 Neut % (Auto) 63.2 Lymph % (Auto) 26.4 [place] % (Auto) 6.8 Eos % (Auto) 2.7 Baso % (Auto) 0.5 Absolute Neuts (auto) 5.4 Absolute Lymphs (auto) 2.24 Nucleated RBC % 0 Treatment and Re-Evaluation Narrative: Patient appears to be anxious, in slight distress secondary to continued erection since 10 AM. Patient denies any use of drugs, sexual devices, denies any sexual activity. Patient is in significant mount of pain, he will have IV established, pain medicine, nausea medicine. Based on his patient history, I do not see a medication that could cause this. Patient will need to go to a tertiary center secondary to not is having urology at this time. I did contact [facility] will accept the patient. Dr. Ryan is from urology, he will accept the patient and he will be an ER to ER transfer. I did speak with Dr. Crisostomo The ER physician. I did give her report. Patient was made aware, redosed with IV pain medicine. At this time, patient stable for transfer. ETA for squad was less than 20 minutes. <Dr. Vinciius Lainez MD - Last Filed: 01/04/23 15:25> [facility] MDM Narrative Medical decision making narrative: I have personally performed a face to face assessment of the patient and have reviewed the ANETTE Note. I performed a substantive portion of the visit including all aspects of the following. My grey findings include: History is 33-year-old male history of bipolar disorder and mental health issues including anxiety. Has had an erection since 10 AM this morning. Denies any type of instrumentation or prior history. Complaining of pain. Exam is [51-year-old male no acute distress. Vital signs stable afebrile. HEENT exam unremarkable. Lungs are clear. Heart regular rhythm. Abdomen soft nontender. Moving all 4 extremities. External he has an erection. Otherwise unremarkable. Circumcised.] Medical Decision Making [33-year-old male with prolonged erection. Consult urology. None is available at our facility today. We will speak to [facility] about potential transfer.] Other additions or changes: [None] History & Record Review Discussion w/independent historian: Patient Lab Data Labs: Laboratory Results - last 24 hr 01/04/23 15:11 WBC 8.5 RBC 4.46 L Hgb 13.0 Hct 39.7 L MCV 89.0 MCH 29.1 MCHC 32.7 RDW Std Deviation 46.1 H RDW Coeff of Klaus 14.3 Plt Count 250 MPV 10.9 Immature Gran % (Auto) 0.400 Neut % (Auto) 63.2 Lymph % (Auto) 26.4 [place] % (Auto) 6.8 Eos % (Auto) 2.7 Baso % (Auto) 0.5 Absolute Neuts (auto) 5.4 Absolute Lymphs (auto) 2.24 Nucleated RBC % 0 Discharge Plan Triage Chief Complaint: Male Pain/Injury ED Midlevel Provider: Wellington Bower ED Provider: Vinicius Lainez Dx/Rx/DC Orders Clinical Impression: Priapism Prescriptions: No Action quetiapine [Seroquel] 100 mg Tablet 150 mg PO QHS clonidine HCl 0.2 mg Tablet 0.2 mg PO BID cephalexin 500 mg capsule 500 mg PO TID 5 Days Qty: 15 0RF ropinirole 0.25 mg tablet 0.25 mg PO QHS Patient Comments: TAKE 1 TABLET BY MOUTH EVERY NIGHT AT BEDTIME budesonide-formoterol [Symbicort] 80-4.5 mcg/actuation HFA aerosol inhaler INHALATION Patient Comments: Inhale 2 puffs in the morning and 2 puffs in the evening. lorazepam 0.5 MG tablet 0.5 mg PO DAILY PRN (Reason: Stress and or anxiety) doxycycline hyclate 100 mg capsule 100 mg PO BID Qty: 60 0RF Primary Care Provider: Waylon Dye Referrals: Waylon Dye MD [Primary Care Provider] - Disposition Disposition: Acute Care Hospital Discharge Location: [facility]
[2023-01-04] MEDS: 0.9% Normal Saline (1000mL) 1,000 ML 1000 ML IV (15:26)
[2023-01-04] MEDS: Metoclopramide 10 MG/2 ML Vial 5 MG IV (15:26)
[2023-01-04] MEDS: Morphine 4 MG/ML Syringe IV (15:27)
[2023-01-04 15:28] LABS: Absolute Lymphocyte Count 2.24 X10^3/uL (0.83-4.51); Absolute Neutrophil Count 5.4 X10^3/uL (2.0-7.7); Basophil# 0.04 X10^3/uL; Basophil% 0.5 % (0-1); Eosinophil# 0.23 X10^3/uL; Eosinophils% 2.7 % (0-5); Hematocrit 39.7 % (40-54); Lymphocyte # 2.24 X10^3/ul (0.83-4.51); Lymphocyte % 26.4 % (19-41); Mean Corp Hgb Conc 32.7 g/dL (32-36); Mean Corpuscular Hgb 29.1 pg (27.0-32.0); Mean Platelet Vol. 10.9 fl (6.2-12.0); Monocyte# 0.58 X10^3/uL; Monocyte% 6.8 % (0-10); NRBC Flagged by Analyzer 0 % (0-5); Neutrophil # 5.38 X10^3/uL (2.7-7.7); Neutrophil % 63.2 % (47-70); Platelet Count 250 K/mm3 (150-450); RBC Distribution Width CV 14.3 % (11.6-14.6); RBC Distribution Width SD 46.1 fl (35.1-43.9); Red Blood Count 4.46 M/mm3 (4.6-6.2); White Blood Count 8.5 K/mm3 (4.4-11.0)
--- NOTE | 2023-01-04 15:47 | NURSING ---
CALLED PHYSICIANS TO SET UP TRANSPORT TO [facility] ER TO ER-- ETA GIVEN 20 MINUTES ([id number])
[2023-01-04 15:54] VITALS: BP 103/64; PULSE 74; RESP 16; TEMP 36.7; O2SAT 95
[2023-01-04 15:55] LABS: Anion Gap 3 (5-15); BUN 7 mg/dL (7-18); BUN/Creat Ratio 6.3 RATIO (10-20); Calcium,Total 8.3 mg/dL (8.5-10.1); Chloride 105 mmol/L (98-107); Creatinine, Serum 1.11 mg/dL (0.70-1.30); EST Glomerular Filtration Rate 82 mL/min (>60); Est Glom Filt Rate - Afr Amer 99 mL/min (>60); Estimated Creatinine Clearance 89.32 ml/min; Glucose 116 mg/dL (74-106); Sodium Level 137 mmol/L (136-145)
--- NOTE | 2023-01-04 16:02 | ED.RN ---
report called to [facility] ER nurse, Russell
[2023-01-04] MEDS: morphine 8 MG/ML Syringe 6 MG IV (16:05)
[2023-01-04] MEDS: LORazepam 2 MG/ML Syringe 1 MG IV (16:05)
== END 2023-01-04 16:20 | disposition short-term general hospital (02) ==
PROVIDERS: Nurse Practitioner; Emergency Provider Emergency Medicine; PCP Family Medicine; Visit Provider Emergency Medicine
DX: N48.30 Priapism, unspecified (principal); F25.9 Schizoaffective disorder, unspecified; F31.9 Bipolar disorder, unspecified; F17.220 Nicotine dependence, chewing tobacco, uncomplicated; F41.9 Anxiety disorder, unspecified
CPT/HCPCS: 80048; 85025; 96361; 96374; 96375; 96376; 99285; J7030; A4216

== ENCOUNTER 2023-05-28 13:27 | Emergency (ER) | payer MEDICAID, SELFPAY ==
[2023-05-28 13:29] VITALS: BP 124/92; PULSE 82; RESP 18; TEMP 36.2; O2SAT 99; BMI 24.0
--- NOTE | 2023-05-28 14:17 | EX.ED.DYSGE1 ---
HPI History of Present Illness Chief Complaint: Fatigue Narrative Narrative: 33-year-old male presenting for evaluation of weakness. He states has been ongoing for about 3 months. He states is intermittent. He at times has lightheadedness. He states that for the last few days he notes that in the middle of a conversation he will just freeze for a few minutes and his friends are getting upset about this because its odd behavior. The patient does have a history of bipolar disorder, schizoaffective disorder. He denies SI or HI. Patient states he is homeless and does not really have any place to stay. [facility] however he states he was thrown out of the facility. He states he went to the counseling center and was also thrown out of there. He admits to getting angry and throwing his skateboard prior to that. Patient states that with his homelessness he is not sleeping very much and started off his mood and he also when he does find a place to sleep is cold and uncomfortable. [facility] Medical History Anxiety Anxiety Asthma Asthma Bipolar 1 disorder Depression Depression Former smoker History of alcohol abuse History of edema History of gastritis History of GERD History of pain when walking History of substance abuse Hx of fracture of tibia Marijuana use Restless legs Schizoaffective disorder, bipolar type SOB (shortness of breath) Wears glasses Home Medications doxycycline hyclate 100 mg capsule 100 mg PO BID #60 caps 01/22/22 [Rx Last Taken Unknown] cephalexin 500 mg capsule 500 mg PO TID 5 days #15 caps 09/17/22 [Rx Last Taken Unknown] clonidine HCl 0.2 mg tablet 0.2 mg PO BID 09/17/22 [History Last Taken Unknown] quetiapine 100 mg tablet (Seroquel) 150 mg PO QHS 09/17/22 [History Last Taken Unknown] budesonide-formoterol HFA 80 mcg-4.5 mcg/actuation aerosol inhaler (Symbicort) inhalation 01/04/23 [History Last Taken Unknown] lorazepam 0.5 mg tablet 0.5 mg PO DAILY PRN Stress and or anxiety 01/04/23 [History Last Taken Unknown] ropinirole 0.25 mg tablet 0.25 mg PO QHS 01/04/23 [History Last Taken Unknown] Allergy/AdvReac Type Severity Reaction Status Date / Time ondansetron [From Zofran] AdvReac Other Verified 05/28/23 13:29 Social History Smoking Status: Former smoker quit date: 03/18/17 pack-years: 1 alcohol intake: former substance use type: does not use and other details: Former use of Marijuana ROS ROS ED Constitutional Constitutional ED: Denies chills, fever(s) or sweats Eyes Eyes: Denies blurry vision or change in vision ENT ENT ED: Denies ear pain or sore throat Cardiovascular Cardiovascular: Denies chest pain, palpitations or racing heartbeat Respiratory/Chest Respiratory/Chest: Denies cough, dyspnea or sputum Gastrointestinal Gastrointestinal: Denies abdominal pain, constipation, diarrhea, nausea or vomiting Genitourinary Genitourinary ED: Denies dysuria, hematuria or urinary frequency Musculoskeletal Musculoskeletal: Denies arthralgias, myalgias or neck pain Integumentary Denies abscess, Abrasions or rash Neurologic Neurologic: Denies headache(s), paresthesias or weakness Psychiatric Psychiatric: Denies anxiety, depression, suicidal ideation or suicidal thoughts Endocrine Endocrinology: Denies polydipsia or polyuria EXAM Physical Exam Const Vital Signs: 05/28/23 13:29 05/28/23 13:28 Temperature 97.2 F L Temperature Source Temporal Pulse Rate 82 Respiratory Rate 18 Respiratory Effort Normal Non-Labored Respiratory Pattern Normal Blood Pressure 124/92 H Blood Pressure Mean 102 Pulse Ox 99 Oxygen Delivery Method Room Air Positive well nourished General Appearance ED: NAD; Negative for pallor HEENT Reports moist mucous membranes Eyes PERRL and EOMs intact bilaterally Resp normal respiratory effort and clear to auscultation bilaterally Cardio regular rate and regular rhythm Neuro oriented x3 and CN's II-XII intact bilaterally Sensorium / Orientation: alert Motor Exam: strength 5/5 throughout Psych mental status grossly normal Skin no rashes or lesions noted General Skin Exam: Negative for jaundice or pallor MDM MDM MDM Narrative Medical decision making narrative: Patient initial complaint was weakness and some other complaints which do not appear to go with his first complaint of weakness. After extended discussion about 10 to 15 minutes the patient admits to me that he is just tired and needs a place to sleep. He was happy to be able to take a nap here. States is cold outside he has no place to go. He does not seem manic. Patient is alert awake. Denies SI or HI. At this point he wants to leave because he already took a nap prior to my arrival to the room. I offered to get him social services to talk to the counseling center and he states he does not need them. At this point I will have him discharged home. Return precautions were discussed with him. Impression: 1. Fatigue 2. Weakness 3. Homelessness Lab Data Attestation: I reviewed the patient's lab results. Discharge Plan Triage Chief Complaint: Fatigue ED Provider: Dorian Cota Dx/Rx/DC Orders Instructions: ED Weakness (Uncertain Cause) Prescriptions: No Action quetiapine [Seroquel] 100 mg Tablet 150 mg PO QHS clonidine HCl 0.2 mg Tablet 0.2 mg PO BID cephalexin 500 mg capsule 500 mg PO TID 5 Days Qty: 15 0RF ropinirole 0.25 mg tablet 0.25 mg PO QHS Patient Comments: TAKE 1 TABLET BY MOUTH EVERY NIGHT AT BEDTIME budesonide-formoterol [Symbicort] 80-4.5 mcg/actuation HFA aerosol inhaler INHALATION Patient Comments: Inhale 2 puffs in the morning and 2 puffs in the evening. lorazepam 0.5 MG tablet 0.5 mg PO DAILY PRN (Reason: Stress and or anxiety) doxycycline hyclate 100 mg capsule 100 mg PO BID Qty: 60 0RF Primary Care Provider: Waylon Dye Referrals: Waylon Dye MD [Primary Care Provider] - Disposition Disposition: Home, Self Care
== END 2023-05-28 14:17 | disposition home or self-care (01) ==
PROVIDERS: Emergency Provider Student in an Organized Health Care Education/Training Program; PCP Family Medicine; Visit Provider Student in an Organized Health Care Education/Training Program
DX: R53.83 Other fatigue (principal); F25.9 Schizoaffective disorder, unspecified; F31.9 Bipolar disorder, unspecified; R53.1 Weakness; Z59.00 Homelessness unspecified; Z79.899 Other long term (current) drug therapy; Z87.891 Personal history of nicotine dependence
CPT/HCPCS: 99282

== ENCOUNTER 2023-07-02 00:10 | Emergency (ER) | payer MEDICAID, SELFPAY ==
[2023-07-02] VITALS (10 sets, daily range): BP systolic 124–129; BP diastolic 79–82; PULSE 69–109; RESP 15–18; TEMP 36.7; O2SAT 97–99; BMI 24.3
--- NOTE | 2023-07-02 00:48 | EX.ED.VIS.PS ---
HPI HPI - Psych History of Present Illness Chief Complaint: Mental Health Informant: patient Narrative Narrative: Patient presents voluntarily for mental health evaluation. He states he was staying at really recovered, a sober house. 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 He states tonight he was triggered by someone asking him questions in front of a group, he was offended and frustrated by this and his reaction generally is to remove himself from the situation. He did this and wants to go back there at some point and fears that he needs to be admitted to psychiatry in order for this to happen so that is what he is essentially requesting. However, it takes some time to get him to say this because he is very tangential and goes from 1 story to the next, speaking about how he has seen demons in others, about how the entire town of [place] is laden with evil, and also some occasional delusions of paranoia and ideas of reference in many of his stories. He denies any physical symptoms, injury, illness, or drug use recently. [facility] Medical History Anxiety Anxiety Asthma Asthma Bipolar 1 disorder Depression Depression Former smoker History of alcohol abuse History of edema History of gastritis History of GERD History of pain when walking History of substance abuse Hx of fracture of tibia Marijuana use Restless legs Schizoaffective disorder, bipolar type SOB (shortness of breath) Wears glasses Home Medications doxycycline hyclate 100 mg capsule 100 mg PO BID #60 caps 01/22/22 [Rx Last Taken Unknown] clonidine HCl 0.2 mg tablet 0.2 mg PO BID 09/17/22 [History Last Taken Unknown] quetiapine 100 mg tablet (Seroquel) 150 mg PO QHS 09/17/22 [History Last Taken Unknown] budesonide-formoterol HFA 80 mcg-4.5 mcg/actuation aerosol inhaler (Symbicort) inhalation 01/04/23 [History Last Taken Unknown] lorazepam 0.5 mg tablet 0.5 mg PO DAILY PRN Stress and or anxiety 01/04/23 [History Last Taken Unknown] ropinirole 0.25 mg tablet 0.25 mg PO QHS 01/04/23 [History Last Taken Unknown] buspirone 7.5 mg tablet 7.5 mg PO BID 07/02/23 [History Last Taken Unknown] Allergy/AdvReac Type Severity Reaction Status Date / Time ondansetron [From Zofran] AdvReac Other Verified 07/02/23 00:14 Social History Smoking Status: Current every day smoker tobacco type: cigarettes and smokeless tobacco alcohol intake: former substance use type: does not use and other details: Former use of Marijuana ROS ROS ED Constitutional Constitutional ED: Denies chills or fever(s) Eyes Eyes: Denies change in vision or diplopia ENT ENT ED: Denies rhinorrhea or sore throat Cardiovascular Cardiovascular: Denies chest pain or palpitations Respiratory/Chest Respiratory/Chest: Denies cough or dyspnea Gastrointestinal Gastrointestinal: Denies abdominal pain, diarrhea, nausea or vomiting Genitourinary Genitourinary ED: Denies dysuria or hematuria Musculoskeletal Musculoskeletal: Denies back pain or neck pain Integumentary Denies abscess or rash Neurologic Neurologic: Denies headache(s), paresthesias or weakness Psychiatric Psychiatric: Denies anxiety or suicidal thoughts EXAM Physical Exam Const Vital Signs: 07/02/23 00:10 07/02/23 01:10 07/02/23 02:00 Temperature 98.0 F Temperature Source Temporal Pulse Rate 109 H Respiratory Rate 18 16 16 Blood Pressure 129/82 H Blood Pressure Mean 97 Pulse Ox 99 Oxygen Delivery Method Room Air 07/02/23 03:00 07/02/23 04:00 07/02/23 04:26 Temperature Temperature Source Pulse Rate 90 Respiratory Rate 15 16 Blood Pressure Blood Pressure Mean Pulse Ox Oxygen Delivery Method Positive well nourished and well developed General Appearance ED: well developed and NAD HEENT Reports moist mucous membranes normocephalic and atraumatic Eyes PERRL and EOMs intact bilaterally Neck full ROM and supple Resp normal respiratory effort and clear to auscultation bilaterally Cardio regular rate, regular rhythm and no murmurs GI non-tender and non-distended Auscultation: normoactive bowel sounds Palpation: soft Back/Spine no CVA tenderness General Back: other FROM Extremity normal to inspection General Extremety ED: Negative for edema, pulses abnormal or tenderness General Extremity: Negative for edema or pulses abnormal Neuro oriented x3, CN's II-XII intact bilaterally and no sensory deficits noted Sensorium / Orientation: awake and alert Motor Exam: strength 5/5 throughout Psych denies homicidal ideation and denies suicidal ideation Appearance: grossly normal and appropriate Attitude: engaged Activity / Motor Behavior: appropriate eye contact Speech: pressured Thought Process: flight of ideas, tangential and racing thoughts Thought Content: ideas of reference and rumination(s) Insight: fair Judgement: judgement good Skin no rashes or lesions noted and no wounds MDM MDM MDM Narrative Medical decision making narrative: Labs, toxicology, alcohol all reviewed and unremarkable. Patient is medically cleared for crisis to evaluate. He is not actively suicidal or homicidal, however I do believe he is potentially psychotic with regards to his psychiatric evaluation and he thinks he needs to be admitted to inpatient. I will have crisis evaluate him. They did so. They believe that the patient is potentially acutely manic versus an exacerbation of his schizoaffective disorder. He does present like a psychosis and pressured speech/tangentiality so I agree. Plan is for placement which is pending at this time. Patient was asking her for something help him calm down because apparently the conversation cause him to be a little agitated, he was able to go to the bathroom and back to the room without any significant consequences so I am ordering a dose of hydroxyzine. Lab Data Attestation: I reviewed the patient's lab results. Labs: Laboratory Results - last 24 hr 07/02/23 07/02/23 00:55 00:58 WBC 11.6 H RBC 4.47 L Hgb 12.6 L Hct 38.6 L MCV 86.4 MCH 28.2 MCHC 32.6 RDW Std Deviation 47.8 H RDW Coeff of Klaus 15.0 H Plt Count 290 MPV 10.5 Immature Gran % (Auto) 0.300 Neut % (Auto) 56.4 Lymph % (Auto) 34.2 [place] % (Auto) 6.3 Eos % (Auto) 2.2 Baso % (Auto) 0.6 Absolute Neuts (auto) 6.5 Absolute Lymphs (auto) 3.96 Nucleated RBC % 0 Sodium 141 Potassium 4.2 Chloride 108 H Carbon Dioxide 27.0 Anion Gap 6 BUN 15 Creatinine 0.83 Estim Creat Clear Calc 119.46 Est GFR (MDRD) Af Amer 137 Est GFR (MDRD) Non-Af 113 BUN/Creatinine Ratio 18.0 Glucose 106 Calcium 8.9 Urine Opiates Screen NEGATIVE Urine Methadone Screen NEGATIVE Ur Barbiturates Screen NEGATIVE Ur Phencyclidine Scrn NEGATIVE Ur Amphetamines Screen NEGATIVE MDMA (Ecstasy) Screen NEGATIVE U Benzodiazepines Scrn NEGATIVE Urine Cocaine Screen NEGATIVE U Cannabinoids Screen POSITIVE H Ur Drug Screen Comment Ethyl Alcohol < 3.0 Management Discussion w/another healthcare provider: elementary school social worker/Case management Discharge Plan Triage Chief Complaint: Mental Health ED Provider: Hieu Man Dx/Rx/DC Orders Clinical Impression: Acute exacerbation of chronic schizoaffective schizophrenia Prescriptions: No Action quetiapine [Seroquel] 100 mg Tablet 150 mg PO QHS clonidine HCl 0.2 mg Tablet 0.2 mg PO BID ropinirole 0.25 mg tablet 0.25 mg PO QHS Patient Comments: TAKE 1 TABLET BY MOUTH EVERY NIGHT AT BEDTIME budesonide-formoterol [Symbicort] 80-4.5 mcg/actuation HFA aerosol inhaler INHALATION Patient Comments: Inhale 2 puffs in the morning and 2 puffs in the evening. lorazepam 0.5 MG tablet 0.5 mg PO DAILY PRN (Reason: Stress and or anxiety) buspirone 7.5 mg tablet 7.5 mg PO BID Patient Comments: TAKE 1 TABLET BY MOUTH TWICE DAILY doxycycline hyclate 100 mg capsule 100 mg PO BID Qty: 60 0RF Primary Care Provider: Waylon Dye Referrals: Waylon Dye MD [Primary Care Provider] - Disposition Disposition: Psychiatric Hospital or Unit
--- NOTE | 2023-07-02 00:50 | ED.RN ---
Per Dr Man patient does not require a sitter.
--- OUTSIDE RECORDS SUMMARY | 2023-07-02 00:54 | XMS RPT_ITS | CCD ---
Author Name Unknown Address [address] [place] [address] Organization [facility] Care Team Providers Care Audit Intern Name Role Phone BARBARA SHAIKH Unavailable Unavailable JULIANNA MCCARTHY Unavailable Unavailable KAIA WEBSTER Unavailable Unavailable CHE LERNER Unavailable UnavailDAVIDSON Machado Unavailable Unavailable PHYSICIAN, NONE Primary Care Physician Unavailab Jordan Freed Unavailable Laine Cruz Primary Care Provider LAINE CRUZ Primary Care UnavailLAINE Alfredo Primary Care UnavailLaine Alfredo MD Primary Care Provider ANIBAL CUETO Attending Unavailable LAINE CRUZ Primary [facility] Unavailable LAINE CRUZ Primary [facility] Unavailabl e Allergies Allergy Classification Reported Allergen(s) Allergy Type Date of Onset Reaction(s) Facility (3 sources) Cat Allergy to [facility] (formerly [facility]) Medications Current Medications Medication Drug Class(es) Dates Sig (Normalized) Sig (Original) acetaminophen 500 mg oral tablet (1 source) Start: 02-12-2022 Acetaminophen Extra Strength 500 MG tablet TAKE 2 TABLETS BY MOUTH EVERY 6 TO 8 HOURS NEEDED FOR PAIN 0 02/12/2022 Active [id number] 200 actuat albuterol 0.09 mg/actuat metered dose inhaler (3 sources) beta2-Adrenergic Agonist Start: 03-05-2022 take 2 puff(s) by inhalation every six hours as needed albuterol 108 (90 Base) MCG/ACT inhaler Inhale 2 puffs every 6 hours as needed for shortness of breath. 18 g 3 03/05/2022 Active Completed/Discontinued Medications Medication Drug Class(es) Dates Sig (Normalized) Sig (Original) cloNIDine hydrochloride 0.2 mg oral tablet (3 sources) Central alpha-2 Adrenergic Agonist Start: 04-21-2022 take 1 tablet by mouth once daily cloNIDine HCl (CATAPRES) 0.2 mg tablet Take 1 Tablet By Oral Route 1 time per day 0 06/03/2022 Active Problems Active Problems Problem Classification Problem Date Documented Da te Episodic/Chronic Anxiety disorders (5 sources) Anxiety disorder, unspecified; Translations: [Anxiety disorder] Onset: 7 Chronic Asthma (2 sources) Moderate persistent asthma, uncomplicated; Translations: [Moderate persistent asthma, uncomplicated] Onset: 3 Chronic Attention-deficit, conduct, and disruptive behavior disorders (1 source) Attention deficit hyperactivity disorder, combined type; Translations: [Attention-deficit hyperactivity disorder, combined type] Onset: 1 02-09-2022 Chronic Esophageal disorders (3 sources) Gastroesophageal reflux disease without esophagitis; Translations: [Gastro-esophageal reflux disease without esophagitis] Onset: 0 01-30-2020 Chronic Gastritis and duodenitis (2 sources) Gastritis; Translations: [Gastritis, unspecified, without bleeding] Onset: 1 Episodic Mood disorders (5 sources) Bipolar disorder, unspecified; Translations: [Bipolar disorder, current episode manic without psychotic features, unspecified] Onset: 6 02-27-2017 Chronic Other gastrointestinal disorders (1 source) Diarrhea; Translations: [Diarrhea, unspecified] Episodic Other hereditary and degenerative nervous system conditions (1 source) Restless legs; Translations: [Restless legs syndrome] Onset: 1 02-09-2022 Chronic Other hereditary and degenerative nervous system conditions (2 sources) Restless legs syndrome; Translations: [Restless legs syndrome] Onset: 2 Chronic Other nervous system disorders (1 source) Neuropathy; Translations: [Polyneuropathy, unspecified] Onset: 1 02-09-2022 Chronic Other screening for suspected conditions (not mental disorders or infectious disease) (2 sources) Encounter for screening for lipoid disorders; Translations: [Encounter for screening for lipoid disorders] Onset: 3 Episodic Other upper respiratory disease (1 source) Pain in throat; Translations: [Pain in throat] Episodic Schizophrenia and other psychotic disorders (3 sources) Schizoaffective disorder; Translations: [Schizoaffective disorder, unspecified] Onset: 7 07-15-2016 Chronic Past or Other Problems Problem Classification Problem Date Documented Da te Episodic/Chronic Abdominal pain (2 sources) Epigastric pain; Translations: [Epigastric pain] Onset: 03-07-2021 Episodic Other connective tissue disease (1 source) Pain in right lower limb; Translations: [Pain in right leg] Onset: 05-08-2021 02-09-2022 Episodic Other skin disorders (1 source) Follicular disorder, unspecified; Translations: [Follicular disorder, unspecified] Onset: 12-27-2016 Episodic Skin and subcutaneous tissue infections (2 sources) Cellulitis of unspecified part of limb; Translations: [Cellulitis of left lower limb] Onset: 11-30-2016 Episodic Unclassified (2 sources) Hallucinations, unspecified; Translations: [Edema, unspecified] Onset: 01-06-2017 Episodic Results Test Name Value Interpretation Reference Range Facil ity Vital Signs Date Time Vital Sign Value Performing Clinician Faci lity 01-04-2023 20:48-0400 SaO2% (BldA) [Mass fraction] 9 % LAINE CRUZ [facility] Encounters Encounter Date Encounter Type Care Provider Facility Start: 01-04-2023 Emergency department patient visit LAINE CRUZ Facility:[facility] Start: 11-14-2022 End: 11-14-2022 ambulatory [facility] Start: 08-04-2022 Refill Laine Cruz MD Work Phone: [facility] Clinical Communication Start: 07-16-2022 End: 07-16-2022 ambulatory LAINE CRUZ Facility:[facility] Start: 07-16-2022 End: 07-16-2022 Patient encounter procedure Rusty Townsend APRN.CNP Work Phone: [facility] Care Plan of Treatment Date Care Activity Detail Author Start: 2041 Zoster Vaccines (1 of 2) Zoste r Vaccines (1 of 2) [facility] Start: 01-25-2030 DTaP/Tdap/Td Vaccine s (7 - Td or Tdap) DTaP/Tdap/Td Vaccines (7 - Td or Tdap) [facility] Start: 01-25-2030 Urine microalbumin profile DTA P,TDAP,TD (7 - Td or Tdap) [facility] Start: 05-19-2023 Hepatitis C screening Hepatitis C Sc patricio [facility] Immunizations Immunization Date Immunization Notes Care Provider Fa morroty 05-29-2021 Covid-19, Pfizer Gra y Top, Do Not Dilute, (Age 12 Y+), Im, L Laine Cruz MD Work Phone: [facility] 03-07-2021 influenza, injectabl e, quadrivalent, contains preservative Laine Cruz MD Work Phone: [facility] 03-07-2021 influenza virus vacc ine, unspecified formulation Laine Cruz MD Work Phone: [facility] 12-25-2020 Pfizer SARS-CoV-2 Vaccination Laine Cruz MD Work Phone: [facility] 12-07-2020 Pfizer SARS-CoV-2 Vaccination Laine Cruz MD Work Phone: [facility] 08-01-2020 influenza virus vacc ine, unspecified formulation Laine Cruz MD Work Phone: [facility] 01-26-2020 influenza, injectabl e, quadrivalent, preservative free Laine Cruz MD Work Phone: [facility] 01-26-2020 influenza, seasonal, injectable Sharon Evans APRN.PEST CONTROL TECHNICIAN Work Phone: [facility] 01-26-2020 pneumococcal polysaccharide vaccine, 23 valent Sharon Evans APRN.PEST CONTROL TECHNICIAN Work Phone: [facility] 01-26-2020 tetanus toxoid, redu rosalina diphtheria toxoid, and acellular pertussis vaccine, adsorbed Sharon Evans APRN.PEST CONTROL TECHNICIAN Work Phone: [facility] 03-10-2017 influenza, injectabl e, quadrivalent, preservative free Sharon Evans APRN.PEST CONTROL TECHNICIAN Work Phone: [facility] 08-19-2016 Human Papillomavirus 9-valent vaccine Sharon Evans NORMA.PEST CONTROL TECHNICIAN Work Phone: [facility] 04-02-2016 Human Papillomavirus 9-valent vaccine Sharon Evans NORMA.PEST CONTROL TECHNICIAN Work Phone: [facility] 04-02-2016 tetanus toxoid, redu rosalina diphtheria toxoid, and acellular pertussis vaccine, adsorbed Sharon Nathan NORMA.PEST CONTROL TECHNICIAN Work Phone: [facility] 02-08-2016 influenza, injectabl e, quadrivalent, contains preservative Laine Cruz MD Work Phone: [facility] 02-08-2016 influenza, seasonal, injectable Sharon James NORMA.PEST CONTROL TECHNICIAN Work Phone: [facility] 01-18-2016 Human Papillomavirus 9-valent vaccine Sharon Evans NORMA.PEST CONTROL TECHNICIAN Work Phone: [facility] 03-06-2015 influenza virus vacc ine, unspecified formulation Laine Cruz MD Work Phone: [facility] 05-07-2011 TD(adult) unspecifie d formulation Laine Cruz MD Work Phone: [facility] 05-07-2011 tetanus and diphther ia toxoids, adsorbed, preservative free, for adult use (2 Lf of tetanus toxoid and 2 Lf of diphtheria toxoid) Sharon Evans APRN.PEST CONTROL TECHNICIAN Work Phone: [facility] 05-07-2011 tetanus and diphther ia toxoids, not adsorbed, for adult use Laine Cruz MD Work Phone: [facility] 05-07-2011 tetanus toxoid, redu rosalina diphtheria toxoid, and acellular pertussis vaccine, adsorbed Laine Cruz MD Work Phone: [facility] 11-17-2003 measles, mumps and rubella virus vaccine Sharon Evans NORMA.PEST CONTROL TECHNICIAN Work Phone: [facility] 11-19-1999 hepatitis B vaccine, adult dosage Laine Cruz MD Work Phone: [facility] 11-19-1999 hepatitis B vaccine, unspecified formulation Sharon Evans APRN.PEST CONTROL TECHNICIAN Work Phone: [facility] 06-13-1999 hepatitis B vaccine, adult dosage Laine Cruz MD Work Phone: [facility] 06-13-1999 hepatitis B vaccine, unspecified formulation Sharon Evans APRN.PEST CONTROL TECHNICIAN Work Phone: [facility] 05-06-1999 hepatitis B vaccine, adult dosage Laine Cruz MD Work Phone: [facility] 05-06-1999 hepatitis B vaccine, unspecified formulation Sharon Evans APRN.PEST CONTROL TECHNICIAN Work Phone: [facility] 12-05-1996 diphtheria, tetanus toxoids and acellular pertussis vaccine Sharon Evans APRN.PEST CONTROL TECHNICIAN Work Phone: [facility] 12-05-1996 diphtheria, tetanus toxoids and acellular pertussis vaccine, unspecified formulation Laine Cruz MD Work Phone: [facility] 07-19-1992 diphtheria, tetanus toxoids and acellular pertussis vaccine Sharon Evans APRN.PEST CONTROL TECHNICIAN Work Phone: [facility] 07-19-1992 diphtheria, tetanus toxoids and acellular pertussis vaccine, unspecified formulation Laine Cruz MD Work Phone: [facility] 04-17-1992 haemophilus influenz ae type b vaccine, conjugate unspecified formulation Sharon Evans APRN.PEST CONTROL TECHNICIAN Work Phone: [facility] 04-17-1992 haemophilus influenz ae type b vaccine, PRP-OMP conjugate Laine Cruz MD Work Phone: [facility] 04-17-1992 measles, mumps and rubella virus vaccine Sharon Evans APRN.PEST CONTROL TECHNICIAN Work Phone: [facility] 04-17-1992 poliovirus vaccine, inactivated Sharon Evans APRN.PEST CONTROL TECHNICIAN Work Phone: [facility] 1991 diphtheria, tetanus toxoids and acellular pertussis vaccine Sharon Evans APRN.PEST CONTROL TECHNICIAN Work Phone: [facility] 1991 diphtheria, tetanus toxoids and acellular pertussis vaccine, unspecified formulation Laine Cruz MD Work Phone: [facility] 1991 haemophilus influenz ae type b vaccine, conjugate unspecified formulation Sharon Nathan [employer]URNED [employer] SORTER.PEST CONTROL TECHNICIAN Work Phone: [facility] 1991 haemophilus influenz ae type b vaccine, PRP-OMP conjugate Laine Cruz MD Work Phone: [facility] 1991 poliovirus vaccine, inactivated Sharon Nathan [employer] SORTER.PEST CONTROL TECHNICIAN Work Phone: [facility] 1991 diphtheria, tetanus toxoids and acellular pertussis vaccine Sharon Nathan [employer] SORTER.PEST CONTROL TECHNICIAN Work Phone: [facility] 1991 diphtheria, tetanus toxoids and acellular pertussis vaccine, unspecified formulation Liane Cruz MD Work Phone: [facility] 1991 haemophilus influenz ae type b vaccine, conjugate unspecified formulation Sharon Nathan [employer]URN[employer] SORTER.PEST CONTROL TECHNICIAN Work Phone: [facility] 1991 haemophilus influenz ae type b vaccine, PRP-OMP conjugate Laine Cruz MD Work Phone: [facility] 1991 poliovirus vaccine, inactivated Sharon Nathan [employer] SORTER.PEST CONTROL TECHNICIAN Work Phone: [facility] 1991 haemophilus influenz ae type b vaccine, conjugate unspecified formulation Sharon Nathan [employer] SORTER.PEST CONTROL TECHNICIAN Work Phone: [facility] 1991 haemophilus influenz ae type b vaccine, PRP-OMP conjugate Laine Cruz MD Work Phone: [facility] 1991 poliovirus vaccine, inactivated Sharon Nathan [employer] SORTER.PEST CONTROL TECHNICIAN Work Phone: [facility] Payers Date Payer Category Payer Medicaid [id number] 2020 Medicaid [id number] Social History Date Type Detail Facility Start: 04-25-2019 Light tobacco smoker (finding) [facility] Sex Assigned At Male [facility] Start: 06-27-2022 Tobacco smoking stat us NHIS Ex-smoker [facility] End: 03-18-2017 History of tobacco use Current smoker [facility] End: 03-18-2017 History of tobacco use Cigarette Smoker [facility] Start: 06-27-2022 Cigarettes smoked current (pack per day) - Reported 1 [facility] Start: 06-27-2022 Tobacco use and exposure Smokeless tobacco non-user [facility] Start: 05-19-2022 End: 06-27-2022 Alcohol intake Current non-drinker of alcohol (finding) [facility] Start: 04-01-2017 Alcohol Comment previous alcoh ol problem [facility] Start: 1991 Sex Assigned At Not on file [facility] Start: 05-19-2022 History SDOH Financial 2 [facility] Start: 05-19-2022 History SDOH Food Worry 1 [facility] Clinical Notes 03-08-2021 to 02-07-2023 Telephone Encounter - Maritza Pitt - 08/04/2022 11:27 AM EDTTelephone Encounter - Maritza Pitt - 08/04/2022 11:27 AM Jeane Townsend APRN.[facility] - 07/16/2022 3:30 PM EDT Note Date & Type Note Facility 02-07-2023 Note HNO ID: [id number] Author: Note, Interface Service: ? Author Type: ? Type: Progress Notes Filed: 02/07/2023 5:03 AM Note Text: Epic Scheduled Downtime: 02/07/2023 1:00:00 AM to 02/07/2023 1:28:00 AM [facility] 01-11-2023 Note HNO ID: [id number] Author: Note, Interface Service: ? Author Type: ? Type: Progress Notes Filed: 01/11/2023 3:06 AM Note Text: Epic Scheduled Downtime: 01/11/2023 1:02:01 AM to 01/11/2023 2:21:01 AM [facility] 01-10-2023 Note HNO ID: [id number] Author: Note, Interface Service: ? Author Type: ? Type: Progress Notes Filed: 01/10/2023 5:00 AM Note Text: Epic Scheduled Downtime: 01/10/2023 1:00:00 AM to 01/10/2023 4:45:00 AM [facility] 01-04-2023 Note HNO ID: [id number] Author: Rachel Lawrence MD Service: Urology Author Type: Resident Type: Procedures Filed: 01/04/2023 7:41 PM Note Text: Attestation signed by Zach Ryan MD at 01/04/2023 9:46 PM I did not see the patient, but I discussed the patient and procedure with the resident. Zach Ryan MD Urology Procedure Note Indication: Priapism All options, risks and benefits explained. Consent was obtained. Patient agreed to proceed with plan for aspiration of corpora and injection of phenylephrine. Patient presented to emergency room with erection lasting greater than 4 hours. Patient was attached to clinical research monitor and started on IVF with supplemental oxygen available via nasal cannula. Penis was cleaned with chloraprep and dorsal nerve block was performed using a 22 gauge needle and 15 cc of 1% lidocaine without epinephrine. After ensuring adequate anesthetization, an 18g needle was inserted mid-shaft at the 9 o'clock position on the right lateral side of the penis. ~ 10 cc of dark bloody output was immediately apparent and aided with manual manipulation of the penis with at least another 40 cc over the next several minutes until bright red blood was seen. Erection lessened but complete detumescence was not achieved. At this time phenylephrine 500 mcg/mL was delivered from pharmacy. 1 mL of phenylephrine was combined with 19mL of normal saline in a 20mL syringe. After ensuring the patient had normal systolic blood pressure, 1 mL of the phenylephrine mix was injected into the right corporal body. Blood pressure was cycled once per minute for the next 3 minutes and patients vitals remained stable. A total of 8 cc were required to achieve complete detumescence. On re-assessment, the patient was reassessed and found the patient to be completely detumesced with shaft edema. Hydralazine was available for any hypertensive episodes but was not needed. Patient was given 2 gram of Ancef IV as antibiotic prophylaxis. The patient tolerated the procedure without complications. Rachel Lawrence MD 01/04/2023 7:18 PM [facility] 01-04-2023 Note HNO ID: [id number] Author: Yaa Ruiz RN Service: Emergency Medicine Author Type: Registered Nurse Type: ED Notes Filed: 01/04/2023 6:42 PM Note Text: Urology procedure starting at this time. [facility] 08-04-2022 Telephone encounter Note Out of inhaler Ordering provider: Hardik Date of last office visit: Date of next office visit: Updated/Validated preferred pharmacy: Yes Patient instructed to contact the pharmacy prior to picking up the medication: Yes (1) Medication name: budesonide-formoterol (Symbicort) 80-4.5 MCG/ACT inhaler Medication dosage: 80-4.5 MCG/ACT inhaler Monthly quantity needed: How many day supply requestin days Medication route: inhalation (inhaler) Medication administration time(s): 2 times a day (BID) If taking medication PRN, reason for taking medication: N/A If this is a controlled substance do you receive this or any other controlled medication from any other doctor or facility: No Date of last refill (see medication tab): 05.19.22 (2) Medication name: rOPINIRole (Requip) 0.25 MG tablet Medication dosage: 0.25 MG tablet Monthly quantity needed: 30 How many day supply requestin days Medication route: oral (PO) Medication administration time(s): daily If taking medication PRN, reason for taking medication: N/A If this is a controlled substance do you receive this or any other controlled medication from any other doctor or facility: No Date of last refill (see medication tab): 04.29.22 [facility] 08-04-2022 Miscellaneous Notes Out of inhaler Ordering provider: Hardik Date of last office visit: Date of next office visit: Updated/Validated preferred pharmacy: Yes Patient instructed to contact the pharmacy prior to picking up the medication: Yes (1) Medication name: budesonide-formoterol (Symbicort) 80-4.5 MCG/ACT inhaler Medication dosage: 80-4.5 MCG/ACT inhaler Monthly quantity needed: How many day supply requestin days Medication route: inhalation (inhaler) Medication administration time(s): 2 times a day (BID) If taking medication PRN, reason for taking medication: N/A If this is a controlled substance do you receive this or any other controlled medication from any other doctor or facility: No Date of last refill (see medication tab): 05.19.22 (2) Medication name: rOPINIRole (Requip) 0.25 MG tablet Medication dosage: 0.25 MG tablet Monthly quantity needed: 30 How many day supply requestin days Medication route: oral (PO) Medication administration time(s): daily If taking medication PRN, reason for taking medication: N/A If this is a controlled substance do you receive this or any other controlled medication from any other doctor or facility: No Date of last refill (see medication tab): 04.29.22 documented in this encounter [facility] 07-16-2022 Note HNO ID: [id number] Author: Rusty Townsend APRN.PEST CONTROL TECHNICIAN Service: ? Author Type: Nurse Practitioner Type: Progress Notes Filed: 07/16/2022 4:20 PM Note Text: Subjective HPI HPI Matty Whitlock is a 32 year old male who presents today for CC of diarrhea. This started 3 days ago. Has tried mag citrate for relief, concerns for impaction. Symptoms are worsened by nothing. Risk factors sick exposures at work. .Patient presents with: Diarrhea: Diarrhea and stomach hurts x 4 days PAST MEDICAL HISTORY Diagnosis Date Asthma Bipolar 1 disorder (HCC) GERD without esophagitis 01/30/2020 Psychiatric disorder depression PAST SURGICAL HISTORY Procedure Laterality Date ORTHOPEDICS SURGERY HX ALLERGIES Patient has no known allergies. MEDICATIONS QUEtiapine (SEROQUEL) 200 mg tablet Take 200 mg by mouth daily at bedtime. nicotine (NICODERM) 21 mg/24 hr Apply 1 Patch by transdermal route 1 time per day cloNIDine HCl (CATAPRES) 0.2 mg tablet Take 1 Tablet By Oral Route 1 time per day QUEtiapine (SEROQUEL) 100 mg tablet Take 100 mg by mouth daily at bedtime. (Patient not taking: Reported on 07/16/2022) lidocaine viscous (XYLOCAINE) 2 % solution Take 5 mL by mouth as needed. (Patient not taking: Reported on 06/27/2022) pantoprazole DR (PROTONIX) 40 mg tablet Take 1 tablet by mouth twice daily. Take on empty stomach, 1/2 hr before meal. budesonide-formoterol (SYMBICORT) 160-4.5 mcg/actuation inhaler TWICE A DAY (Patient not taking: Reported on 06/27/2022) albuterol HFA (VENTOLIN HFA) 90 mcg/actuation inhaler Inhale 2 Puffs as instructed every 6 hours as needed for Wheezing/Shortness of Breath. (Patient not taking: Reported on 06/27/2022) loratadine (CLARITIN) 10 mg tablet Take 1 tablet by mouth once daily. (Patient not taking: Reported on 06/27/2022) No family history on file. Social History Tobacco Use Smoking status: Former Packs/day: 1.00 Types: Cigarettes Quit date: 03/18/2017 Years since quittin.3 Smokeless tobacco: Never Vaping Use Vaping Use: Never used Substance Use Topics Alcohol use: No Comment: previous alcohol problem Drug use: No Types: Crystal Meth, Marijuana Comment: previous use of crystal meth x1 month Review of Systems Gastrointestinal: Positive for diarrhea. Negative for abdominal pain, blood in stool, constipation and vomiting. Objective Blood pressure 136/84, pulse 82, temperature 36.6 ?C (97.8 ?F), temperature source Tympanic, resp. rate 18, weight 81.3 kg (179 lb 3.2 oz), SpO2 98 %. Physical Exam Constitutional: General: He is not in acute distress. Appearance: He is not toxic-appearing or diaphoretic. HENT: Head: Normocephalic and atraumatic. Pulmonary: Effort: Pulmonary effort is normal. No accessory muscle usage or respiratory distress. Abdominal: General: Bowel sounds are normal. Palpations: Abdomen is soft. There is no hepatomegaly or splenomegaly. Tenderness: There is no abdominal tenderness. Neurological: Mental Status: He is alert and oriented to person, place, and time. ASSESSMENT/PLAN: 1. Diarrhea, unspecified type - ICD9: 787.91, ICD10: R19.7 Suspect viral gastroenteritis. -Discussed gentle rehydration -BRAT Diet (Bananas, Rice, Apple Sauce, [place]) -If no better in 3-5days follow up back in clinic or with primary care provider -Follow up in the ER with signs of dehydration, increasing abdominal pain, high fever, or blood in vomit or stool. Rusty Townsend APRN.[facility] 07-16-2022 History of Presen t illness Narrative Subjective HPI HPI Matty Whitlock is a 32 year old male who presents today for CC of diarrhea. This started 3 days ago. Has tried mag citrate for relief, concerns for impaction. Symptoms are worsened by nothing. Risk factors sick exposures at work. .Patient presents with: Diarrhea: Diarrhea and stomach hurts x 4 days PAST MEDICAL HISTORY Diagnosis Date Asthma Bipolar 1 disorder (HCC) GERD without esophagitis 01/30/2020 Psychiatric disorder depression PAST SURGICAL HISTORY Procedure Laterality Date ORTHOPEDICS SURGERY HX ALLERGIES Patient has no known allergies. MEDICATIONS QUEtiapine (SEROQUEL) 200 mg tablet Take 200 mg by mouth daily at bedtime. nicotine (NICODERM) 21 mg/24 hr Apply 1 Patch by transdermal route 1 time per day cloNIDine HCl (CATAPRES) 0.2 mg tablet Take 1 Tablet By Oral Route 1 time per day QUEtiapine (SEROQUEL) 100 mg tablet Take 100 mg by mouth daily at bedtime. (Patient not taking: Reported on 07/16/2022) lidocaine viscous (XYLOCAINE) 2 % solution Take 5 mL by mouth as needed. (Patient not taking: Reported on 06/27/2022) pantoprazole DR (PROTONIX) 40 mg tablet Take 1 tablet by mouth twice daily. Take on empty stomach, 1/2 hr before meal. budesonide-formoterol (SYMBICORT) 160-4.5 mcg/actuation inhaler TWICE A DAY (Patient not taking: Reported on 06/27/2022) albuterol HFA (VENTOLIN HFA) 90 mcg/actuation inhaler Inhale 2 Puffs as instructed every 6 hours as needed for Wheezing/Shortness of Breath. (Patient not taking: Reported on 06/27/2022) loratadine (CLARITIN) 10 mg tablet Take 1 tablet by mouth once daily. (Patient not taking: Reported on 06/27/2022) No family history on file. Social History Tobacco Use Smoking status: Former Packs/day: 1.00 Types: Cigarettes Quit date: 03/18/2017 Years since quittin.3 Smokeless tobacco: Never Vaping Use Vaping Use: Never used Substance Use Topics Alcohol use: No Comment: previous alcohol problem Drug use: No Types: Crystal Meth, Marijuana Comment: previous use of crystal meth x1 month Review of Systems Gastrointestinal: Positive for diarrhea. Negative for abdominal pain, blood in stool, constipation and vomiting. Objective Blood pressure 136/84, pulse 82, temperature 36.6 C (97.8 F), temperature source Tympanic, resp. rate 18, weight 81.3 kg (179 lb 3.2 oz), SpO2 98 %. Physical Exam Constitutional: General: He is not in acute distress. Appearance: He is not toxic-appearing or diaphoretic. HENT: Head: Normocephalic and atraumatic. Pulmonary: Effort: Pulmonary effort is normal. No accessory muscle usage or respiratory distress. Abdominal: General: Bowel sounds are normal. Palpations: Abdomen is soft. There is no hepatomegaly or splenomegaly. Tenderness: There is no abdominal tenderness. Neurological: Mental Status: He is alert and oriented to person, place, and time. ASSESSMENT/PLAN: 1. Diarrhea, unspecified type - ICD9: 787.91, ICD10: R19.7 Suspect viral gastroenteritis. -Discussed gentle rehydration -BRAT Diet (Bananas, Rice, Apple Sauce, [place]) -If no better in 3-5days follow up back in clinic or with primary care provider -Follow up in the ER with signs of dehydration, increasing abdominal pain, high fever, or blood in vomit or stool. Rusty Townsend APRN.PRAVIN documented in this encounter [facility] 06-27-2022 Note HNO ID: [id number] Author: Sharon Evans APRN.PRAVIN Service: ? Author Type: Nurse Practitioner Type: Progress Notes Filed: 06/27/2022 4:59 PM Note Text: Subjective Patient came in with complaints of recurrent possible thrush. Patient's been treated with nystatin patient says it gets better but always comes back. Patient says its super painful like someone is stabbing him with a needle in his tongue. Patient denies any other symptoms at this time. The history is provided by the patient. No language arts teacher was used. Review of Systems Constitutional: Negative. Objective Physical Exam Constitutional: Appearance: Normal appearance. HENT: Mouth/Throat: Comments: Tongue appears to be normal no white coating on tongue no signs of inflammation at this time. Pulmonary: Effort: Pulmonary effort is normal. Neurological: Mental Status: He is alert. PAST MEDICAL HISTORY Diagnosis Date Asthma Bipolar 1 disorder (HCC) GERD without esophagitis 01/30/2020 Psychiatric disorder depression PAST SURGICAL HISTORY Procedure Laterality Date ORTHOPEDICS SURGERY HX ALLERGIES Patient has no known allergies. MEDICATIONS nicotine (NICODERM) 21 mg/24 hr Apply 1 Patch by transdermal route 1 time per day cloNIDine HCl (CATAPRES) 0.2 mg tablet Take 1 Tablet By Oral Route 1 time per day QUEtiapine (SEROQUEL) 100 mg tablet Take 100 mg by mouth daily at bedtime. lidocaine viscous (XYLOCAINE) 2 % solution Take 5 mL by mouth as needed. (Patient not taking: Reported on 06/27/2022) pantoprazole DR (PROTONIX) 40 mg tablet Take 1 tablet by mouth twice daily. Take on empty stomach, 1/2 hr before meal. budesonide-formoterol (SYMBICORT) 160-4.5 mcg/actuation inhaler TWICE A DAY (Patient not taking: Reported on 06/27/2022) albuterol HFA (VENTOLIN HFA) 90 mcg/actuation inhaler Inhale 2 Puffs as instructed every 6 hours as needed for Wheezing/Shortness of Breath. (Patient not taking: Reported on 06/27/2022) loratadine (CLARITIN) 10 mg tablet Take 1 tablet by mouth once daily. (Patient not taking: Reported on 06/27/2022) No family history on file. Social History Tobacco Use Smoking status: Former Packs/day: 1.00 Types: Cigarettes Quit date: 03/18/2017 Years since quittin.2 Smokeless tobacco: Never Vaping Use Vaping Use: Never used Substance Use Topics Alcohol use: No Comment: previous alcohol problem Drug use: No Types: Crystal Meth, Marijuana Comment: previous use of crystal meth x1 month ASSESSMENT/PLAN: 1. Throat pain - ICD9: 784.1, ICD10: R07.0 - CONSULT TO ENT Due to patient saying this is a chronic issue patient is being referred to ENT for full evaluation. Patient was okay with this care plan. No nystatin was prescribed at this time due to no symptoms. Sharon Evans APRN.[facility] 06-27-2022 History of Presen t illness Narrative Subjective Patient came in with complaints of recurrent possible thrush. Patient's been treated with nystatin patient says it gets better but always comes back. Patient says its super painful like someone is stabbing him with a needle in his tongue. Patient denies any other symptoms at this time. The history is provided by the patient. No language arts teacher was used. Review of Systems Constitutional: Negative. Objective Physical Exam Constitutional: Appearance: Normal appearance. HENT: Mouth/Throat: Comments: Tongue appears to be normal no white coating on tongue no signs of inflammation at this time. Pulmonary: Effort: Pulmonary effort is normal. Neurological: Mental Status: He is alert. PAST MEDICAL HISTORY Diagnosis Date Asthma Bipolar 1 disorder (HCC) GERD without esophagitis 01/30/2020 Psychiatric disorder depression PAST SURGICAL HISTORY Procedure Laterality Date ORTHOPEDICS SURGERY HX ALLERGIES Patient has no known allergies. MEDICATIONS nicotine (NICODERM) 21 mg/24 hr Apply 1 Patch by transdermal route 1 time per day cloNIDine HCl (CATAPRES) 0.2 mg tablet Take 1 Tablet By Oral Route 1 time per day QUEtiapine (SEROQUEL) 100 mg tablet Take 100 mg by mouth daily at bedtime. lidocaine viscous (XYLOCAINE) 2 % solution Take 5 mL by mouth as needed. (Patient not taking: Reported on 06/27/2022) pantoprazole DR (PROTONIX) 40 mg tablet Take 1 tablet by mouth twice daily. Take on empty stomach, 1/2 hr before meal. budesonide-formoterol (SYMBICORT) 160-4.5 mcg/actuation inhaler TWICE A DAY (Patient not taking: Reported on 06/27/2022) albuterol HFA (VENTOLIN HFA) 90 mcg/actuation inhaler Inhale 2 Puffs as instructed every 6 hours as needed for Wheezing/Shortness of Breath. (Patient not taking: Reported on 06/27/2022) loratadine (CLARITIN) 10 mg tablet Take 1 tablet by mouth once daily. (Patient not taking: Reported on 06/27/2022) No family history on file. Social History Tobacco Use Smoking status: Former Packs/day: 1.00 Types: Cigarettes Quit date: 03/18/2017 Years since quittin.2 Smokeless tobacco: Never Vaping Use Vaping Use: Never used Substance Use Topics Alcohol use: No Comment: previous alcohol problem Drug use: No Types: Crystal Meth, Marijuana Comment: previous use of crystal meth x1 month ASSESSMENT/PLAN: 1. Throat pain - ICD9: 784.1, ICD10: R07.0 - CONSULT TO ENT Due to patient saying this is a chronic issue patient is being referred to ENT for full evaluation. Patient was okay with this care plan. No nystatin was prescribed at this time due to no symptoms. Sharon Evans APRN.PRAVIN documented in this encounter [facility] 03-25-2021 Hospital Discharg e instructions Patient Education 03/24/2021 22:59:52 Anxiety Reaction Anxiety Reaction Anxiety is the feeling we all get when we think something bad might happen. It is a normal response to stress and usually causes only a mild reaction. When anxiety becomes more severe, it can interfere with daily life. In some cases, you may not even be aware of what it is you re anxious about. There may also be a genetic link or it may be a learned behavior in the home. Both psychological and physical triggers cause stress reaction. It's often a response to fear or emotional stress, real or imagined. This stress may come from home, family, work, or social relationships. During an anxiety reaction, you may feel: Helpless Nervous Depressed Irritable Your body may show signs of anxiety in many ways. You may experience: Dry mouth Shakiness Dizziness Weakness Trouble breathing Breathing fast (hyperventilating) Chest pressure Sweating Headache Nausea Diarrhea Tiredness Inability to sleep Sexual problems Home care Try to locate the sources of stress in your life. They may not be obvious. These may include: oDaily hassles of life (such as traffic jams, missed appointments, or car troubles) oMajor life changes, both good (new baby or job promotion) and bad (loss of job or loss of loved one) oOverload: feeling that you have too many responsibilities and can't take care of all of them at once oFeeling helpless or feeling that your problems are beyond what you re able to solve Notice how your body reacts to stress. Learn to listen to your body signals. This will help you take action before the stress becomes severe. When you can, do something about the source of your stress. (Avoid hassles, limit the amount of change that happens in your life at one time and take a break when you feel overloaded). Unfortunately, many stressful situations can't be avoided. It is necessary to learn how to better manage stress. There are many proven methods that will reduce your anxiety. These include simple things like exercise, good nutrition, and adequate rest. Also, there are certain techniques that are helpful: oRelaxation oBreathing exercises oVisualization oBiofeedback oMeditation For more information about this, consult your healthcare provider or go to a local bookstore and review the many books and tapes available on this subject. Follow-up care If you feel that your anxiety is not responding to self-help measures, contact your healthcare provider or make an appointment with a counselor. You may need short-term psychological counseling and temporary medicine to help you manage stress. Call 911 Call 911 if any of these happen: Trouble breathing Confusion Drowsiness or trouble wakening Fainting or loss of consciousness Rapid heart rate Seizure New chest pain that becomes more severe, lasts longer, or spreads into your shoulder, arm, neck, jaw, or back When to seek medical advice Call your healthcare provider right away if any of these happen: Your symptoms get worse Severe headache not relieved by rest and mild pain reliever [id number] [employer]. [address] [place] [address]. All rights reserved. This information is not intended as a substitute for professional medical care. Always follow your healthcare professional's instructions. 03/24/2021 22:59:51 Gastritis (Adult) Gastritis (Adult) Gastritis is inflammation and irritation of the stomach lining. You can have it for a short time (acute) or be long lasting (chronic). Infection with bacteria called H pylori most often causes gastritis. More than a third of people in the [place] have these bacteria in their bodies. In many cases, H pylori causes no problems or symptoms. In some people, though, the infection irritates the stomach lining and causes gastritis. H. pylori may be diagnosed through blood, stool, or breath tests, we well as through biopsy during an endoscopy. Other causes of stomach irritation include drinking alcohol, smoking or chewing tobacco, or taking pain-relieving medicines called NSAIDs (such as aspirin or ibuprofen). Certain drugs (such as cocaine) and immune conditions can also cause gastritis. Symptoms of gastritis can include: Belly pain or bloating Feeling full quickly Loss of appetite Nausea or vomiting Vomiting blood or having black stools Feeling more tired than usual An inflamed and irritated stomach lining is more likely to develop a sore called an ulcer. To help prevent this, gastritis should be treated. Home care If needed, our healthcare provider may prescribe medicines. If you have H pylori infection, treating it will likely relieve your symptoms. Other changes can help reduce stomach irritation and help it heal. If you have been prescribed medicines for H pylori infection, take them as directed. Take all of the medicine until it is finished or your healthcare provider tells you to stop, even if you feel better. Your healthcare provider may advise you not to take NSAIDs. If you take daily aspirin for your heart or other medical reasons, do not stop without talking to your healthcare provider first. Don't drink alcohol. Stop smoking. Smoking can irritate the stomach and delay healing. As much as possible, stay away from second hand smoke. Follow-up care Follow up with your healthcare provider, or as advised by our staff. You may need testing to check for inflammation or an ulcer. When to seek medical advice Call your healthcare provider for any of the following: Stomach pain that gets worse or moves to the lower right belly (appendix area) Chest pain that appears or gets worse, or spreads to the back, neck, shoulder, or arm Frequent vomiting (can t keep down liquids) Blood in the stool or vomit (red or black in color) Feeling weak or dizzy Shortness of breath Unexplained weight loss Fever of 100.4 F (38 C) or higher, or as directed by your healthcare provider [phone] [employer]. [address] [place] [address]. All rights reserved. This information is not intended as a substitute for professional medical care. Always follow your healthcare professional's instructions. Follow Up Care 03/24/2021 21:51:16 With:Follow up with primary care provider Address:Unknown When:2-4 days [facility] 03-22-2021 Hospital Discharg e instructions Patient Education 03/22/2021 16:19:55 GASTRITIS vs. ULCER Gastritis Versus Ulcer (No Antibiotic Tx) The symptoms of gastritis and peptic ulcer are very similar. Both can cause a dull ache or burning pain in the upper abdomen. Other symptoms include nausea, vomiting, loss of appetite, and belching or bloating. Blood in the vomit or stools (red or black) is a sign of bleeding in the stomach. This requires immediate medical attention. A Peptic Ulcer is an open sore in the lining of the stomach or duodenum (upper intestine). The most common cause of peptic ulcer disease is a bacterial infection (H pylori) in the stomach. Another common cause is taking anti-inflammatory medications (such as ibuprofen, prednisone, and aspirin). Gastritis is an irritation of the stomach lining. It can be acute (recent) or chronic (lasting a long time). Gastritis can be caused by overuse of alcohol or anti-inflammatory medications (such as aspirin, ibuprofen, prednisone). H pylori infection can also cause chronic gastritis. Tests for H pylori are used to screen for bacterial infection. If no infection is found, ulcer and gastritis can be treated by stopping the cause, such as anti-inflammatory medications, alcohol, caffeine, and tobacco, and treating with antacids plus an acid kaz medication. If H pylori infection is found, antibiotics will be prescribed along with an acid kaz. Persons 55 years and older may undergo other tests before treatment is started. Two common tests are used to evaluate your symptoms. An upper GI series is an x-ray taken after you drink a chalky liquid called barium. This coats the stomach and allows an ulcer to show up on the x-ray. Another test is called endoscopy during which a long thin tube called an endoscope is passed down your throat to the stomach. A camera at the end of the scope allows the doctor to view inside the stomach to check the cause of your symptoms. Home Care: Take the prescribed acid kaz medication for the full course of treatment even if you begin to feel better sooner. This medication can take up to several days to fully control your symptoms. If you can t afford the prescribed medication, you can try goox-put-bmzcxgh acid blockers, such as Pepcid AC, Tagamet, Zantac, or Aciphex. If these do not relieve your symptoms, a stronger acid-kaz can be tried, such as Prilosec OTC. If you have been prescribed an antibiotic to treat H pylori infection, finish the full course of medication. Do so even if you begin to feel better sooner. If you stop the medication too soon, the infection can return and be harder to treat. You can use antacids, such as Tums, Rolaids, Mylanta, or Maalox, for pain. This will be useful the first few days after starting acid blockers when the blockers haven t started working yet. Follow the directions on the label. Liquid antacids may work better than tablets. Note that antacids can interfere with absorption of certain medications. Specifically, do not take Tagamet (cimetidine), Zantac (ranitidine), or Carafate (sucralfate) within 1 hour of taking an antacid. Talk with your pharmacist if you have any questions. Although foods do not cause an ulcer, symptoms can be worsened by certain foods. Limit or avoid fatty, fried, and spicy foods, as well as coffee, chocolate, mint, and foods with high acid content such as tomatoes and citrus fruit and juices (orange, grapefruit, lemon). Avoid alcohol, caffeine, and tobacco, which can delay healing. Avoid aspirin and anti-inflammatory medications such as ibuprofen (Advil, Motrin) and naproxen (Naprosyn, Aleve). Acetaminophen (Tylenol) is safe to use. Do not take more than the amount listed on the label. Follow Up with your doctor or as advised. Further testing may be needed. If you do not begin to improve over the next 4 days, contact your doctor. If you had tests, you ll be notified of any new findings that affect your care. Get Prompt Medical Attention if any of the following occur: Stomach pain gets worse or moves to the lower right abdomen (appendix area) Chest pain appears or gets worse, or spreads to the back, neck, shoulder, or arm Frequent vomiting (can t keep down liquids) Blood in the stool or vomit (red or black in color) Feeling weak or dizzy, fainting, or trouble breathing Fever of 100.4 F (38 C) or higher, or as directed by your healthcare provider [phone] [employer]. [address] [place] [address]. All rights reserved. This information is not intended as a substitute for professional medical care. Always follow your healthcare professional's instructions. 03/22/2021 16:19:52 Anxiety Reaction Anxiety Reaction Anxiety is the feeling we all get when we think something bad might happen. It is a normal response to stress and usually causes only a mild reaction. When anxiety becomes more severe, it can interfere with daily life. In some cases, you may not even be aware of what it is you re anxious about. There may also be a genetic link or it may be a learned behavior in the home. Both psychological and physical triggers cause stress reaction. It's often a response to fear or emotional stress, real or imagined. This stress may come from home, family, work, or social relationships. During an anxiety reaction, you may feel: Helpless Nervous Depressed Irritable Your body may show signs of anxiety in many ways. You may experience: Dry mouth Shakiness Dizziness Weakness Trouble breathing Breathing fast (hyperventilating) Chest pressure Sweating Headache Nausea Diarrhea Tiredness Inability to sleep Sexual problems Home care Try to locate the sources of stress in your life. They may not be obvious. These may include: oDaily hassles of life (such as traffic jams, missed appointments, or car troubles) oMajor life changes, both good (new baby or job promotion) and bad (loss of job or loss of loved one) oOverload: feeling that you have too many responsibilities and can't take care of all of them at once oFeeling helpless or feeling that your problems are beyond what you re able to solve Notice how your body reacts to stress. Learn to listen to your body signals. This will help you take action before the stress becomes severe. When you can, do something about the source of your stress. (Avoid hassles, limit the amount of change that happens in your life at one time and take a break when you feel overloaded). Unfortunately, many stressful situations can't be avoided. It is necessary to learn how to better manage stress. There are many proven methods that will reduce your anxiety. These include simple things like exercise, good nutrition, and adequate rest. Also, there are certain techniques that are helpful: oRelaxation oBreathing exercises oVisualization oBiofeedback oMeditation For more information about this, consult your healthcare provider or go to a local bookstore and review the many books and tapes available on this subject. Follow-up care If you feel that your anxiety is not responding to self-help measures, contact your healthcare provider or make an appointment with a counselor. You may need short-term psychological counseling and temporary medicine to help you manage stress. Call 911 Call 911 if any of these happen: Trouble breathing Confusion Drowsiness or trouble wakening Fainting or loss of consciousness Rapid heart rate Seizure New chest pain that becomes more severe, lasts longer, or spreads into your shoulder, arm, neck, jaw, or back When to seek medical advice Call your healthcare provider right away if any of these happen: Your symptoms get worse Severe headache not relieved by rest and mild pain reliever [phone] [employer]. [address] [place] [address], [place] [address]. All rights reserved. This information is not intended as a substitute for professional medical care. Always follow your healthcare professional's instructions. 03/22/2021 16:19:45 Epigastric Pain (Uncertain Cause) Epigastric Pain (Uncertain Cause) Epigastric pain is pain in the upper abdomen. It can be a sign of disease. Common causes include: Acid reflux (stomach acid flowing up into the esophagus) Gastritis (irritation of the stomach lining) Most often this is from aspirin or NSAID medicines such as ibuprofen, bacteria called H. pylori, or frequent alcohol use. Peptic ulcer disease Inflammation of the pancreas Gallstone Infection in the gallbladder Pain may be dull or burning. It may spread upward to the chest or to the back. There may be other symptoms such as belching, bloating, cramps or hunger pains. There may be weight loss or poor appetite, nausea or vomiting. Since the cause of your pain is not certain yet,you may need more tests. Sometimes the doctor will treat you for the most likely condition to see if there is improvement before doing more tests. Home care Medicines Antacids help neutralize the normal acids in your stomach.If you don t like the liquid, you can try a chewable one. You may find one works better than another for you. Overuse can cause diarrhea or constipation. Acid blockers (H2 blockers) decrease acid production. Examples are cimetidine, famotidine, and ranitidine. Acid inhibitors (PPIs) decrease acid production in a different way than the blockers. You may find they work better, but can take a little longer to take effect. Examples are omeprazole, lansoprazole, pantoprazole, rabeprazole, and esomeprazole. Many of these are available daya-evc-nqlgoan or available as generics. Take an antacid 30 to 60 minutes after eating and at bedtime, but not at the same time as an acid kaz. Try not to take NSAIDs such as ibuprofen. Aspirin may also cause problems, but if taking it for your heart or other medical reasons, talk to your doctor before stopping it; you don't want to cause a worse problem, like a heart attack or stroke. Diet If certain foods seem to cause your pain, try not to eat them. Certain foods can worsen symptoms of gastritis. Limit or avoid fatty, fried, and spicy foods, as well as coffee, chocolate, mint, and foods with high acid content such as tomatoes and citrus fruit and juices (orange, grapefruit, lemon). Eat slowly and chew food well before swallowing. Symptoms of gastritis can be worsened by certain foods. Don't drink alcohol. It can irritate the stomach. Don't consume caffeine, or use tobacco. These can delay healing and worsen your problem. Try eating smaller meals with snacks in between. Keep an empty stomach for 2 to 3 hours before lying down. Prop the head of the bed up if you have overnight symptoms. This helps acid clear from your esophagus. Follow-up care Follow up with your healthcare provider or as advised. When to seek medical advice Call your healthcare provider right away if any of the following occur: Stomach pain worsens or moves to the right lower part of the abdomen Chest pain appears, or if it worsens or spreads to the chest, back, neck, shoulder, or arm Frequent vomiting (can t keep down liquids) Blood in the stool or vomit (red or black color) Feeling weak or dizzy, fainting, or having trouble breathing Fever of 100.4 F (38 C) or higher, or as directed by your healthcare provider Abdominal swelling [id number] [employer]. [address] [place] [address]. All rights reserved. This information is not intended as a substitute for professional medical care. Always follow your healthcare professional's instructions. Follow Up Care 03/22/2021 15:32:55 With:Gastroenterology Address:Unknown When:2-4 days Comments:Schedule appointment as soon as possibleReturn to ED if symptoms worsenFollow up for endoscopy and h pylori testing sugar. Precautions as describedSleep head elevated, avoid eating within 4 hrs of bed. Omeprozole 40mg 2x/day. pepcid 2x/day. 15ml (1tbs) gaciscon at bed daily. Diet as described With:NONE PHYSICIAN Address:Unknown When:2-4 days [facility] 03-08-2021 Hospital Discharg e instructions Patient Education 03/08/2021 20:25:13 Understanding Anxiety Disorders Understanding Anxiety Disorders Almost everyone gets nervous now and then. It s normal to have knots in your stomach before a test, or for your heart to race on a first date. But an anxiety disorder is much more than a case of nerves. In fact, its symptoms may be overwhelming. But treatment can relieve many of these symptoms. Talking to your healthcare provider is the first step. What are anxiety disorders? An anxiety disorder causes intense feelings of panic and fear. These feelings may arise for no apparent reason. And they tend to recur again and again. They may prevent you from coping with life and cause you great distress. As a result, you may avoid anything that triggers your fear. In extreme cases, you may never leave the house. Anxiety disorders may cause other symptoms, such as: Obsessive thoughts that are unwanted and you can t control Constant nightmares or painful thoughts of the past Nausea, sweating, and muscle tension Trouble sleeping or concentrating What causes anxiety disorders? Anxiety disorders tend to run in families. For some people, childhood abuse or neglect may play a role. For others, stressful life events or trauma may trigger anxiety disorders. Anxiety can trigger low self-esteem and poor coping skills. Panic disorder. This causes an intense fear of being in danger. Phobias. These are extreme fears of certain objects, places, or events. Obsessive-compulsive disorder. This causes you to have unwanted thoughts and urges. You also may perform certain actions over and over. Posttraumatic stress disorder. This occurs in people who have survived a terrible ordeal. It can cause nightmares and flashbacks about the event. Generalized anxiety disorder. This causes constant worry that can greatly disrupt your life. Getting better You may believe that nothing can help you. Or, you might fear what others may think. But most anxiety symptoms can be eased. Having an anxiety disorder is nothing to be ashamed of. Most people do best with treatment that combines medicine and individual and group therapy. These aren t cures. But they can help you live a healthier life. [id number] [employer]. [address] [place] [address]. All rights reserved. This information is not intended as a substitute for professional medical care. Always follow your healthcare professional's instructions. Follow Up Care 03/08/2021 20:11:13 With:DONALD GÓMEZ MD Address: When:2-4 days [facility] Evaluation + Plan note No data available for this section [facility] Diarrhea, unspecified type- Primary documented in this encounter [facility] Summary Purpose Family History No Family History Records FoundNo Family History Records FoundNo Family History Records FoundNo Family History Records FoundNo Family History Records FoundNo Family History Records Found Advance Directives No Advanced Directives Records FoundNo Advanced Directives Records FoundNo Advanced Directives Records FoundNo Advanced Directives Records FoundNo Advanced Directives Records FoundNo Advanced Directives Records Found Reason for Referral Specialty Diagnoses / Procedures Referred By Phuong roman Referred To Contact Ent - Otolaryngology Diagnoses Throat pain Procedures CONSULT TO ENT OFFICE/OUTPATIENT [facility] MDM 60-74 MINUTES Sharon Evans APRN.[employer] TECHNICIAN [address] [place] [address] Referral ID Status Reason Start Date Expiration Date Visits Requested Visits Authorized [id number] Pending Review PCP Requested Referral 06/27/2022 06/27/2023 1 1 Additional Source Comments (unrecognized sect ion and content) No Status Records FoundNo Status Records FoundNo Status Records FoundNo Status Records FoundNo Status Records FoundNo Status Records Found INFORMATION SOURCE (unrecogn ized section and content) DATE CREATED AUTHOR AUTHOR'S ORGANIZ ATION 10/20/2017 [facility] DATE CREATED AUTHOR AUTHOR'S ORGANIZ ATION 03/26/2021 [facility] ([place]) DATE CREATED AUTHOR AUTHOR'S ORGANIZ ATION 07/17/2022 [facility] DATE CREATED AUTHOR AUTHOR'S ORGANIZ ATION 11/17/2022 [facility] DATE CREATED AUTHOR AUTHOR'S ORGANIZ ATION 02/08/2023 [facility] Source Comments (unrecognize d section and content) In the event this informatio n is protected by the Federal Confidentiality of Alcohol and Drug Abuse Patient Records regulations: The Federal rules restrict any use of the information to criminally investigate or prosecute any alcohol or drug abuse patient.[facility] the event this information is protected by the Federal Confidentiality of Alcohol and Drug Abuse Patient Records regulations: The Federal rules restrict any use of the information to criminally investigate or prosecute any alcohol or drug abuse patient.[facility] Reason for Visit (unrecogniz ed section and content) Reason Comments Diarrhea Diarrhea and stomach hurts x 4 days Reason Onset Date Comments Med Refill 08/04/2022 Care Teams (unrecognized sec tion and content) Audit Intern Relationship Specialty Start Date End Date Laine Cruz [address] [place] [address] PCP - General Family Medicine 04/01/21 Jordan Sandoval [address] [place] [address] [place] [address] Psychiatry 02/27/17 Audit Intern Relationship Specialty Start Date End Date Laine Cruz MD [address] [place] [address] [id number] PCP - General 02/04/21 FOR RECORDS PERTAINING TO PATIENTS WHO ARE OR HAVE BEEN ENROLLED IN A CHEMICAL DEPENDENCY/SUBSTANCEABUSE PROGRAM, SOME INFORMATION MAY BE OMITTED. This clinical summary was aggregated from multiple sources. Caution should be exercised in using it in the provision of clinical care. This summary normalizes information from multiple sources, and as a consequence, information in this document may materially change the coding, format and clinical context of patient data. In addition, data may be omitted in some cases. CLINICAL DECISIONS SHOULD BE BASED ON THE PRIMARY CLINICAL RECORDS. [facility]. provides no warranty or guarantee of the accuracy or completeness of information in this document.
[2023-07-02 01:06] LABS: Absolute Lymphocyte Count 3.96 X10^3/uL (0.83-4.51); Absolute Neutrophil Count 6.5 X10^3/uL (2.0-7.7); Basophil# 0.07 X10^3/uL; Basophil% 0.6 % (0-1); Eosinophil# 0.26 X10^3/uL; Eosinophils% 2.2 % (0-5); Hematocrit 38.6 % (40-54); Hemoglobin 12.6 g/dL (13.0-16.5); Lymphocyte # 3.96 X10^3/ul (0.83-4.51); Lymphocyte % 34.2 % (19-41); Mean Corp Hgb Conc 32.6 g/dL (32-36); Mean Corpuscular Hgb 28.2 pg (27.0-32.0); Mean Corpuscular Volume 86.4 fL (80-94); Mean Platelet Vol. 10.5 fl (6.2-12.0); Monocyte# 0.73 X10^3/uL; Monocyte% 6.3 % (0-10); NRBC Flagged by Analyzer 0 % (0-5); Neutrophil # 6.53 X10^3/uL (2.7-7.7); Neutrophil % 56.4 % (47-70); Platelet Count 290 K/mm3 (150-450); RBC Distribution Width SD 47.8 fl (35.1-43.9); Red Blood Count 4.47 M/mm3 (4.6-6.2); White Blood Count 11.6 K/mm3 (4.4-11.0)
[2023-07-02 01:19] LABS: Alcohol, Blood (Medical)-Serum < 3.0 mg/dL
[2023-07-02 01:21] LABS: Anion Gap 6 (5-15); BUN 15 mg/dL (7-18); Calcium,Total 8.9 mg/dL (8.5-10.1); Chloride 108 mmol/L (98-107); Creatinine, Serum 0.83 mg/dL (0.70-1.30); EST Glomerular Filtration Rate 113 mL/min (>60); Est Glom Filt Rate - Afr Amer 137 mL/min (>60); Estimated Creatinine Clearance 119.46 ml/min; Glucose 106 mg/dL (74-106); Potassium 4.2 mmol/L (3.5-5.1); Sodium Level 141 mmol/L (136-145)
[2023-07-02 01:27] LABS: Amphetamine Urine VISTA NEGATIVE (<1000 ng/mL); Barbiturate Urine VISTA NEGATIVE (< 200 ng/mL); Benzodiazepine Urine VISTA NEGATIVE (< 200 ng/mL); Cocaine Urine VISTA NEGATIVE (< 300 ng/mL); Ecstacy Urine VISTA NEGATIVE (< 500 ng/mL); Methadone Urine VISTA NEGATIVE (< 300 ng/mL); PCP Urine VISTA NEGATIVE (< 25 ng/mL); THC Urine VISTA POSITIVE (< 50 ng/mL); Vista UDS pH Range 5
--- NOTE | 2023-07-02 07:23 | ED.RN ---
[facility] CALLED, ETA 3 HOURS ([phone])
--- NOTE | 2023-07-02 10:13 | ED.RN ---
CALLED [facility] FOR AN UPDATE ON ETA, THEY STATED THE CREW JUST GOT ON AND IS CHECKING THE TRUCK. THEY ARE COMING FROM [place] SO DISPATCH STATED IT WOULD BE ANOTHER HOUR. ([phone])
--- NOTE | 2023-07-02 11:15 | ED.RN ---
ATTEMPTED TO CALL REPORT, THEY WERE UNABLE TO TAKE IT B/C NURSE WAS IN MED PASS. INFO GIVEN FOR THEM TO CALL BACK.
--- NOTE | 2023-07-02 11:16 | ED.RN ---
PT IS VERY AGITATED, ANGRY ABOUT GOING TO BE PLACED YET WANTS TO BE PLACED. COMPLAINING ABOUT ANY FACILITY HE MIGHT GO TO INCLUDING WHERE HE IS GOING. PT IS PACING AROUND ROOM AND THROWING HIS BELONGINGS AROUND ROOM. DEMANDING A PHONE, WHEN GIVEN HE YELLED AT THE SEC BECAUSE SHE DIDN'T GIVE HIM THE NUMBER FOR HIS REHAB. WENT IN AND TOLD THE PT HE IS NOT GOING TO TALK TO STAFF LIKE THAT AND HIS BEHAVIOR IS INAPPROPRIATE. TOLD PT HE CAME IN WANTING PLACED AND THAT IS WHAT IS HAPPENING. TOLD PT THT HIS BEHAVIOR WOULD NOT BE TOLERATED. SHORTLY AFTER HE WANTED TO APOLOGIZE TO THE PERSON HE YELLED AT.
--- NOTE | 2023-07-02 11:27 | ED.RN ---
[facility] CALLED FOR AN UPDATE ON ETA, SHEA FROM DISPATCH STATED THE [facility] IS 10 MIN AWAY.
== END 2023-07-02 13:31 ==
PROVIDERS: Emergency Provider Emergency Medicine; PCP Family Medicine; Visit Provider Emergency Medicine
DX: F25.0 Schizoaffective disorder, bipolar type (principal); Z79.899 Other long term (current) drug therapy; F17.210 Nicotine dependence, cigarettes, uncomplicated; F17.220 Nicotine dependence, chewing tobacco, uncomplicated
CPT/HCPCS: 80048; 80307; 80320; 85025; 99285; G0480

== ENCOUNTER 2024-02-05 13:26 | Emergency (ER) | payer MEDICAID, SELFPAY ==
[2024-02-05 13:27] VITALS: BP 122/84; PULSE 108; RESP 16; TEMP 36.8; O2SAT 100; BMI 24.9
--- NOTE | 2024-02-05 14:05 | EX.ED.VIS.PS ---
HPI HPI - Psych History of Present Illness Chief Complaint: Anxiety Detail of Chief Complaint: Anxiety Informant: patient Narrative Narrative: Patient presents to the emergency department chief complaint of anxiety that started 2 days ago. Patient has history of anxiety and apparently had [facility] where he had his medication adjusted and was started on Haldol and Invega for sleep as well as Vistaril for anxiety. Patient then went to retirement from the mental health facility and just got released yesterday. Patient states he has no medications any feeling anxious. Denies feeling suicidal or homicidal. He denies any auditory visual hallucinations. Patient tells me he has an appointment coming up Thursday in 3 days to see a new psychiatrist. Patient states that he does not like the way that Haldol is making him feel and he states it does not agree with him and wants to get back on BuSpar and continue the Invega and Vistaril. Patient had been on BuSpar in the past. [facility] Medical History Anxiety Anxiety Asthma Asthma Bipolar 1 disorder Depression Depression Former smoker History of alcohol abuse History of edema History of gastritis History of GERD History of pain when walking History of substance abuse Hx of fracture of tibia Marijuana use Restless legs Schizoaffective disorder, bipolar type SOB (shortness of breath) Wears glasses Home Medications ?Medication ?Instructions ?Recorded ?Last Taken ?Type buspirone 7.5 mg tablet 7.5 mg PO BID 07/02/23 Unknown History haloperidol 5 mg tablet 5 mg PO BID depressive disorder 02/05/24 Unknown History hydroxyzine pamoate 25 mg capsule 25 mg PO BID 02/05/24 Unknown History lorazepam 1 mg tablet (Ativan) 1 mg PO TID PRN anxiety #10 tabs 02/05/24 Unknown Rx melatonin 3 mg tablet 6 mg PO QHS PRN PRN insomnia 02/05/24 Unknown History paliperidone 6 mg tablet,extended 6 mg PO QHS 02/05/24 Unknown History release 24 hr paliperidone 6 mg tablet,extended 6 mg PO DAILY #7 tabs 02/05/24 Unknown Rx release 24 hr (Invega) Allergy/AdvReac Type Severity Reaction Status Date / Time ondansetron (From Zofran) AdvReac Other Verified 02/05/24 13:29 Social History Smoking Status: Current every day smoker tobacco type: cigarettes and smokeless tobacco alcohol intake: former substance use type: does not use and other details: Former use of Marijuana ROS ROS ED Review of Systems ROS Unobtainable: other Constitutional Constitutional ED: Reports lethargy; Denies chills, fever(s), sweats or weight loss Eyes Eyes: Denies blurry vision, change in vision or diplopia ENT ENT ED: Denies rhinorrhea or sore throat Cardiovascular Cardiovascular: Denies chest pain, orthopnea or racing heartbeat Respiratory/Chest Respiratory/Chest: Denies cough, dyspnea, dyspnea on exertion, orthopnea or sputum Gastrointestinal Gastrointestinal: Denies abdominal pain, diarrhea, nausea or vomiting Genitourinary Genitourinary ED: Denies dysuria, hematuria or urinary frequency Musculoskeletal Musculoskeletal: Denies arthralgias, back pain, myalgias or neck pain Integumentary Denies abscess, Abrasions or rash Neurologic Neurologic: Denies headache(s) or weakness Psychiatric Psychiatric: Reports anxiety; Denies depression or suicidal thoughts Endocrine Endocrinology: Denies polydipsia, polyphagia or polyuria Hematologic/Lymphatic Hematologic/Lymphatic: Denies easy bleeding, easy bruising or lymphadenopathy Allergic/Immunologic Allergic/Immunologic ED: Denies mouth swelling, tongue swelling or urticaria EXAM Physical Exam Const Vital Signs: 02/05/24 13:27 Temperature 98.2 F Temperature Source Oral Pulse Rate 108 H Respiratory Rate 16 Blood Pressure 122/84 H Blood Pressure Mean 96 Pulse Ox 100 Oxygen Delivery Method Room Air Positive well nourished and well developed General Appearance ED: well developed and NAD HEENT Reports TM's clear and moist mucous membranes normocephalic and atraumatic; Negative for trauma or tenderness Tympanic Membrane ED: Yes TM's clear Eyes PERRL and EOMs intact bilaterally General Eye ED: Negative for pale conjunctiva or scleral icterus Neck no lymphadenopathy, supple and no JVD General: Negative for tenderness Chest Wall inspection of chest normal and palpation of chest normal Chest: Negative for tenderness Resp normal respiratory effort and clear to auscultation bilaterally Effort and Inspection: Negative for respiratory distress or pain with movement Auscultation: Negative for rhonchi, wheezes or diminished lung sounds Cardio regular rate, regular rhythm, S1 normal heart sound, S2 normal heart sound and no murmurs Peripheral Pulses: pulses 2+ throughout GI normal to inspection, nondistended, normoactive bowel sounds, soft to palpation, non-tender, non-distended and no masses Back/Spine no CVA tenderness and no thoracic nor lumbar tenderness Extremity normal to inspection General Extremety ED: Negative for edema General Extremity: Negative for edema Neuro oriented x3, CN's II-XII intact bilaterally, no sensory deficits noted and gait normal Sensorium / Orientation: awake, alert, oriented to person, oriented to place and oriented to time Motor Exam: strength 5/5 throughout and strength abnormal Psych mental status grossly normal Skin no rashes or lesions noted and no wounds MDM MDM MDM Narrative Medical decision making narrative: Patient requesting medication refill for Invega helps him sleep. And something for anxiety. He has an appointment to see psychiatrist in 3 days. He had been on BuSpar in the past but apparently when he went to the mental health facility was switched to Haldol. Patient states the Haldol is not doing well for him. He was to get back on the BuSpar. He has an appointment to see psychiatry in 3 days. At this point I will not start the BuSpar until the psychiatrist can see him. I will write him for the Invega to help him sleep and give him a few doses of Ativan until he can follow-up with psychiatry on Thursday. Patient and his brother comfortable with this plan. He is not acutely suicidal or homicidal. Discharge Plan Triage Chief Complaint: Anxiety ED Provider: Florentino Cardona Dx/Rx/DC Orders Clinical Impression: Anxiety Instructions: Anxiety Disorders Meds, ED Anxiety Reaction Prescriptions: New paliperidone [Invega] 6 mg tablet extended release 24hr 6 mg PO DAILY Qty: 7 0RF lorazepam [Ativan] 1 mg tablet 1 mg PO TID PRN (Reason: anxiety) Qty: 10 0RF No Action buspirone 7.5 mg tablet 7.5 mg PO BID Patient Comments: TAKE 1 TABLET BY MOUTH TWICE DAILY haloperidol 5 mg tablet 5 mg PO BID melatonin 3 mg tablet 6 mg PO QHS PRN PRN (Reason: insomnia) hydroxyzine pamoate 25 mg capsule 25 mg PO BID paliperidone 6 mg tablet extended release 24hr 6 mg PO QHS Primary Care Provider: Waylon Dye Referrals: Waylon Dye MD [Primary Care Provider] - Activity Restrictions/Additional Instructions: Keep your appoint with psychiatrist in 3 days. Print Language: Eritrean Disposition Disposition: Home, Self Care
[2024-02-05] MEDS: LORazepam 1 MG Tablet PO (14:26)
[2024-02-05 14:27] VITALS: BP 122/84; PULSE 108; RESP 16; TEMP 36.8; O2SAT 100
== END 2024-02-05 14:28 | disposition home or self-care (01) ==
LOC: ED 14:11
PROVIDERS: Emergency Provider Emergency Medicine; PCP Family Medicine; Referring Provider Emergency Medicine; Visit Provider Emergency Medicine
DX: F41.9 Anxiety disorder, unspecified (principal); F17.220 Nicotine dependence, chewing tobacco, uncomplicated; F17.290 Nicotine dependence, other tobacco product, uncomplicated; Z79.899 Other long term (current) drug therapy
CPT/HCPCS: 99282

== ENCOUNTER 2024-07-11 10:52 | Emergency (ER) | payer MEDICAID, SELFPAY ==
[2024-07-11 10:53] VITALS: BP 137/98; PULSE 96; RESP 15; TEMP 36.7; O2SAT 99; BMI 32.8
[2024-07-11 11:38] LABS: Absolute Lymphocyte Count 1.47 X10^3/uL (0.83-4.51); Absolute Neutrophil Count 9.5 X10^3/uL (2.0-7.7); Basophil# 0.04 X10^3/uL; Basophil% 0.3 % (0-1); Eosinophil# 0.04 X10^3/uL; Eosinophils% 0.3 % (0-5); Hematocrit 41.8 % (40-54); Hemoglobin 14.1 g/dL (13.0-16.5); Lymphocyte # 1.47 X10^3/ul (0.83-4.51); Lymphocyte % 12.3 % (19-41); Mean Corp Hgb Conc 33.7 g/dL (32-36); Mean Corpuscular Volume 85.8 fL (80-94); Mean Platelet Vol. 10.5 fl (6.2-12.0); Monocyte# 0.75 X10^3/uL; Monocyte% 6.3 % (0-10); NRBC Flagged by Analyzer 0 % (0-5); Neutrophil # 9.53 X10^3/uL (2.7-7.7); Platelet Count 268 K/mm3 (150-450); RBC Distribution Width CV 13.2 % (11.6-14.6); RBC Distribution Width SD 40.7 fl (35.1-43.9); Red Blood Count 4.87 M/mm3 (4.6-6.2); White Blood Count 11.9 K/mm3 (4.4-11.0)
[2024-07-11 12:03] LABS: Lipase 27 U/L (13-75)
[2024-07-11 12:08] LABS: ALB/GLOB Ratio 1.9 RATIO (0.9-2.4); AST(SGOT) 33 U/L (<=37); Alanine Aminotransfer ALT/SGPT 54 U/L (<=46); Albumin, Serum 4.9 g/dL (3.5-5.0); Alkaline Phosphatase 60 U/L (40-129); Anion Gap 12 (5-15); BUN 7 mg/dL (4-19); BUN/Creat Ratio 7.2 RATIO (10-20); Calcium,Total 10.3 mg/dL (7.6-11.0); Carbon Dioxide 23.5 mmol/L (21.0-32.0); Chloride 103 mmol/L (98-108); Creatinine, Serum 0.94 mg/dL (0.70-1.20); EST Glomerular Filtration Rate 110 (>60); Estimated Creatinine Clearance 122.94 ml/min (50-250); Globulin 2.6 g/dL (2.2-4.2); Glucose 98 mg/dL (70-99); Potassium 3.9 mmol/L (3.3-5.1); Protein, Total 7.5 g/dL (5.9-8.4); Sodium Level 139 mmol/L (133-145); Total Bilirubin 0.24 mg/dL (0.00-1.30)
[2024-07-11] MEDS: Haloperidol Lactate 5 MG/ML Vial 1 MG IV (12:29)
--- NOTE | 2024-07-11 12:51 | ED.VIS.GI ---
HPI HPI - GI History of Present Illness Chief Complaint: GI Bleed Informant: patient Narrative Narrative: Patient is a 34-year-old male with history of GERD, gastritis, substance abuse, schizoaffective disorder and type I bipolar disorder as well as alcohol abuse (currently in a sober living house) presenting with increasing anxiety as well as right abdominal pain and reports passage of bloody clots to his stool. Patient states that he has developed some right sided abdominal pain described as burning. He states his intestines feel inflamed. States he felt like he had to have a bowel movement and blood clots that he describes as red came out. He states after that he started feel weak and confused. He states he feels like he is coming out of his body and states his anxiety is quite severe at this point. He spends a lot of time tell me about how the nicotine patch he is wearing because if he does not wear he has severe nicotine withdraw makes him feel very anxious. He states when he was riding his bike to work this morning he felt that he was out of his body. Denies associate nausea or vomiting. Denies any prior abdominal surgeries. States his bowel movements have otherwise been normal bit off. Did not report any history of ulcerative colitis or Crohn's disease. No other complaints or concerns reported at this time. [facility] Medical History Asthma Depression Anxiety Wears glasses Marijuana use Restless legs History of gastritis Former smoker History of pain when walking History of edema Hx of fracture of tibia Asthma History of GERD History of substance abuse Depression SOB (shortness of breath) Schizoaffective disorder, bipolar type History of alcohol abuse Bipolar 1 disorder Anxiety Home Medications ?Medication ?Instructions ?Recorded ?Last Taken ?Type haloperidol 5 mg tablet 5 mg PO BID depressive disorder 02/05/24 Unknown History hydroxyzine pamoate 25 mg capsule 25 mg PO BID 02/05/24 Unknown History lorazepam 1 mg tablet (Ativan) 1 mg PO TID PRN anxiety #10 tabs 02/05/24 Unknown Rx paliperidone 6 mg tablet,extended 6 mg PO QHS 02/05/24 Unknown History release 24 hr buspirone 10 mg tablet 10 mg PO TID 07/11/24 Unknown History clonidine HCl 0.1 mg tablet 0.1 mg PO TID 07/11/24 Unknown History esomeprazole magnesium 20 mg 20 mg PO BID 07/11/24 Unknown History capsule,delayed release esomeprazole magnesium 40 mg 40 mg PO DAILY #30 caps 07/11/24 Unknown Rx capsule,delayed release (Nexium) melatonin 10 mg capsule 10 mg PO QHS 07/11/24 Unknown History nicotine 14 mg/24 hr daily 1 patch topical DAILY 07/11/24 Unknown History transdermal patch prazosin 1 mg capsule 1 mg PO QHS 07/11/24 Unknown History Allergy/AdvReac Type Severity Reaction Status Date / Time ondansetron (From Zofran) AdvReac Other Verified 07/11/24 10:55 Social History Smoking Status: Current every day smoker tobacco type: cigarettes and smokeless tobacco alcohol intake: former substance use type: does not use and other details: Former use of Marijuana ROS ROS ED Constitutional Constitutional ED: Denies chills or fever(s) Respiratory/Chest Respiratory/Chest: Denies cough Gastrointestinal Gastrointestinal: Reports abdominal pain and other Details: BRBPR ; Denies diarrhea or vomiting Musculoskeletal Musculoskeletal: Denies arthralgias or myalgias Neurologic Neurologic: Reports headache(s) and paresthesias Psychiatric Psychiatric: Reports anxiety; Denies depression or suicidal thoughts Hematologic/Lymphatic Hematologic/Lymphatic: Denies easy bleeding or easy bruising EXAM Physical Exam Const Vital Signs: 07/11/24 10:53 07/11/24 13:02 Temperature 98.1 F Temperature Source Temporal Pulse Rate 96 74 Respiratory Rate 15 16 Blood Pressure 137/98 H 132/87 H Blood Pressure Mean 111 102 Pulse Ox 99 99 Oxygen Delivery Method Room Air Positive well nourished and well developed General Appearance ED: well developed and NAD; Negative for pallor HEENT Reports moist mucous membranes Eyes PERRL General Eye ED: Negative for pale conjunctiva Neck supple Resp normal respiratory effort and clear to auscultation bilaterally Cardio regular rate and regular rhythm GI non-tender and non-distended GI Narrative: Scant pink blood noted on rectal exam. No tenderness. No external hemorrhoids appreciated. Negative Pearce sign. Patient points to his right mid abdomen as area of pain but denies any pain on palpation. Auscultation: hyperactive bowel sounds Palpation: soft; Negative for tender, guarding or rigid Extremity full ROM Neuro Sensorium / Orientation: alert Psych Psych Narrative: Patient is not internally stimulated, well-groomed. Acting appropriately. Attitude: No agitated Mood & Affect: anxious; Negative for tearful Skin General Skin Exam: Negative for jaundice or pallor MDM MDM MDM Narrative Medical decision making narrative: Patient evaluated for abdominal pain and episode of passing when he describes as a blood clot. Patient overall well-appearing. He is not toxic. He is quite anxious. Is given dose of IV Haldol and Benadryl for his anxiety. Differential for presentation and includes bleeding internal hemorrhoid, ulcerative colitis, Crohn disease, diverticular bleed. Bleeding is not consistent with cholecystitis or choledocholithiasis. Lab work including CBC, CMP and lipase is obtained. Patient is a mild leukocytosis of 11.9 which is stable compared to 10 days ago where his 11.6. Hemoglobin is 14.1. He does not have a left shift. CMP normal. BUN normal suspicion for upper GI bleed. Lipase normal. Patient reevaluated and states he is feeling better from his abdominal pain. He has no further bleeding. He does have blood on his rectal exam but no signs of active bleeding. No report of any bright red blood per rectum while in the emergency room. His [place] score at this time is 8 which correlates with the 95% probability of safe discharge. Patient will follow-up outpatient with GI (seen Dr. Herndon in the past). Does tell me that he has only been taking his Nexium 20 mg once a day instead of twice a day as he supposed to because he does like to take it twice a day. Is offered GI cocktail in the ER as I suspect some of his upper pain could be gastritis related. He declined saying he does not want to mix medications or take too many medicines. He notes his symptoms are improving currently. Will be given a prescription for Nexium 40 mg per his request. Given return precautions and counseled importance of outpatient follow-up with GI. He is agreeable with this plan of care. Discharged home in stable condition peer remains hemodynamically stable in the emergency room Lab Data Attestation: I reviewed the patient's lab results. Labs: Laboratory Results - last 24 hr 07/11/24 11:20 WBC 11.9 H RBC 4.87 Hgb 14.1 Hct 41.8 MCV 85.8 MCH 29.0 MCHC 33.7 RDW Std Deviation 40.7 RDW Coeff of Klaus 13.2 Plt Count 268 MPV 10.5 Immature Gran % (Auto) 0.800 Neut % (Auto) 80.0 H Lymph % (Auto) 12.3 L [place]att % (Auto) 6.3 Eos % (Auto) 0.3 Baso % (Auto) 0.3 Absolute Neuts (auto) 9.5 H Absolute Lymphs (auto) 1.47 Nucleated RBC % 0 Sodium 139 Potassium 3.9 Chloride 103 Carbon Dioxide 23.5 Anion Gap 12 BUN 7 Creatinine 0.94 Estim Creat Clear Calc 122.94 Est GFR (MDRD) Non-Af 110 BUN/Creatinine Ratio 7.2 L Glucose 98 Calcium 10.3 Total Bilirubin 0.24 AST 33 ALT 54 H Alkaline Phosphatase 60 Total Protein 7.5 Albumin 4.9 Globulin 2.6 Albumin/Globulin Ratio 1.9 Lipase 27 Discharge Plan Triage Chief Complaint: GI Bleed ED Provider: Gricel Talley Dx/Rx/DC Orders Clinical Impression: Right sided abdominal pain, Anxiety, Rectal bleeding Instructions: ED Lower GI Bleeding (Stable), ED Abdominal Pain Unkn Cause Male... Prescriptions: New esomeprazole magnesium [Nexium] 40 mg capsule,delayed release(DR/EC) 40 mg PO DAILY Qty: 30 0RF No Action haloperidol 5 mg tablet 5 mg PO BID hydroxyzine pamoate 25 mg capsule 25 mg PO BID paliperidone 6 mg tablet extended release 24hr 6 mg PO QHS lorazepam [Ativan] 1 mg tablet 1 mg PO TID PRN (Reason: anxiety) Qty: 10 0RF clonidine HCl 0.1 mg tablet 0.1 mg PO TID nicotine 14 mg/24 hr patch 24 hour 1 patch topical DAILY prazosin 1 mg capsule 1 mg PO QHS buspirone 10 mg tablet 10 mg PO TID esomeprazole magnesium 20 mg capsule,delayed release(DR/EC) 20 mg PO BID melatonin 10 mg capsule 10 mg PO QHS Stand Alone Forms: ED Work / School Excuse Primary Care Provider: Waylon Dye Referrals: Waylon Dye MD [Primary Care Provider] - Friend,DO Vishnu [Med Staff - Active Staff] - Activity Restrictions/Additional Instructions: The risk of any major complication with GI bleed is low given your workup today including her vital signs. Please follow-up with your GI specialist. Please start taking the Nexium 40 mg once a day as prescribed. He may stop taking the 20 mg as we discussed. Avoid ibuprofen or other NSAIDs. If your symptoms worsen please do not hesitate to return to the emergency room. Print Language: Malian Disposition Disposition: Home, Self Care
[2024-07-11 13:02] VITALS: BP 132/87; PULSE 74; RESP 16; O2SAT 99
[2024-07-11] MEDS: DiphenhydrAMINE 50 MG/ML Syringe 25 MG IV (13:17)
[2024-07-11 15:00] VITALS: BP 128/84; PULSE 77; RESP 16; O2SAT 95
[2024-07-11 15:39] VITALS: BP 128/84; PULSE 77; RESP 16; TEMP 36.7; O2SAT 95
== END 2024-07-11 15:40 | disposition home or self-care (01) ==
PROVIDERS: Emergency Provider Emergency Medicine; PCP Family Medicine; Visit Provider Emergency Medicine
DX: K62.5 Hemorrhage of anus and rectum (principal); F25.9 Schizoaffective disorder, unspecified; R10.9 Unspecified abdominal pain; F41.9 Anxiety disorder, unspecified; Z79.899 Other long term (current) drug therapy; K21.9 Gastro-esophageal reflux disease without esophagitis; F17.210 Nicotine dependence, cigarettes, uncomplicated; F17.220 Nicotine dependence, chewing tobacco, uncomplicated
CPT/HCPCS: 80053; 82274; 83690; 85025; 96374; 96375; 99283; A4216

== ENCOUNTER 2024-08-12 15:25 | Emergency (ER) | payer MEDICAID, SELFPAY ==
[2024-08-12 15:26] VITALS: BP 131/89; PULSE 89; RESP 16; TEMP 36.8; O2SAT 98; BMI 31.7
--- NOTE | 2024-08-12 15:37 | EKG12_ITS ---
Test Reason : CP Blood Pressure : */* mmHG Vent. Rate : 77 BPM Atrial Rate : 77 BPM P-R Int : 166 ms QRS Dur : 100 ms QT Int : 366 ms P-R-T Axes : 40 10 12 degrees QTcB Int : 414 ms Normal sinus rhythm Minimal voltage criteria for LVH, may be normal variant ( R in aVL ) Borderline ECG Confirmed by MALIK STEWART, DEANN ([id number]), social media editor MARYANN PARKER ([id number]) on 08/15/2024 8:44:02 AM Referred By: IZA/MEHUL Confirmed By: DEANN GAN MD
[2024-08-12 17:26] VITALS: BP 104/61; PULSE 64
[2024-08-12] MEDS: Lidocaine 2% Viscous15 ML UDC 15 ML PO (18:30)
[2024-08-12] MEDS: Mag Hydrox/Al Hydrox/Simeth 30 ML UDC PO (18:30)
[2024-08-12 18:40] LABS: Absolute Neutrophil Count 7.1 X10^3/uL (2.0-7.7); Basophil# 0.05 X10^3/uL; Basophil% 0.5 % (0-1); Eosinophils% 0.9 % (0-5); Hematocrit 39.2 % (40-54); Hemoglobin 13.8 g/dL (13.0-16.5); Lymphocyte % 22.6 % (19-41); Mean Corp Hgb Conc 35.2 g/dL (32-36); Mean Corpuscular Hgb 28.9 pg (27.0-32.0); Mean Corpuscular Volume 82.2 fL (80-94); Mean Platelet Vol. 10.1 fl (6.2-12.0); Monocyte# 0.88 X10^3/uL; Monocyte% 8.3 % (0-10); NRBC Flagged by Analyzer 0 % (0-5); Neutrophil # 7.14 X10^3/uL (2.7-7.7); Neutrophil % 67.1 % (47-70); Platelet Count 249 K/mm3 (150-450); RBC Distribution Width CV 12.9 % (11.6-14.6); RBC Distribution Width SD 38.6 fl (35.1-43.9); Red Blood Count 4.77 M/mm3 (4.6-6.2); White Blood Count 10.6 K/mm3 (4.4-11.0)
--- NOTE | 2024-08-12 18:50 | ED.RN ---
patient refusing ativan, requesting other medications for anxiety. Dr. Harrison informed, no new orders
[2024-08-12 19:00] VITALS: PULSE 77; RESP 19; O2SAT 98
--- NOTE | 2024-08-12 19:01 | ED.RN ---
patient found outside smoking cigarettes with IV still intact; security escorted patient back to room. Dr. Harrison informed
[2024-08-12 19:04] LABS: AST(SGOT) 24 U/L (<=37); Alanine Aminotransfer ALT/SGPT 26 U/L (<=46); Albumin, Serum 4.8 g/dL (3.5-5.0); Alkaline Phosphatase 64 U/L (40-129); Anion Gap 12 (5-15); BUN 5 mg/dL (4-19); BUN/Creat Ratio 5.8 RATIO (10-20); Calcium,Total 9.5 mg/dL (7.6-11.0); Carbon Dioxide 23.1 mmol/L (21.0-32.0); Chloride 98 mmol/L (98-108); Creatinine, Serum 0.93 mg/dL (0.70-1.20); EST Glomerular Filtration Rate 112 (>60); Estimated Creatinine Clearance 122.09 ml/min (50-250); Globulin 2.4 g/dL (2.2-4.2); Glucose 104 mg/dL (70-99); Lipase 30 U/L (13-75); Potassium 3.9 mmol/L (3.3-5.1); Protein, Total 7.2 g/dL (5.9-8.4); Sodium Level 133 mmol/L (133-145); Total Bilirubin 0.34 mg/dL (0.00-1.30)
--- NOTE | 2024-08-12 19:11 | EDS_ITS ---
HPI History of Present Illness Chief Complaint: Anxiety Narrative Narrative: Chief complaint and HPI: 34-year-old male with past medical history of anxiety, depression, GERD, bipolar disorder, schizoaffective disorder, previous alcohol abuse presents for evaluation of epigastric/right upper quadrant burning and pain. Patient states that he recently had his GERD medication changed 2 days ago and since then has been having increased epigastric/right upper quadrant burning pain. He states that this is causing his anxiety to increase. When I asked him if the pain is sharp or crampy. He states no it feels like inflammation. He denies any fever, chills, shortness of breath, chest pain, nausea, vomiting, diarrhea, constipation, dysuria. States that he has been sober as he is in sober living and frequently gets drug tested. He denies any suicidal or homicidal ideation. Denies any visual or auditory hallucinations. Review of systems: See HPI Medications: As listed on the chart Allergies: As listed on the chart PFSH: Per chart Vital signs: As listed on the chart. Reviewed. Physical exam: Gen: A&O x3, anxious Head: Normocephalic, atraumatic Eyes: No sclera icterus, conjunctiva clear, PERRL, EOMI ENT: Moist mucous membranes Neck: Trachea midline, No JVD CV: RRR, no murmurs, no peripheral edema Resp: Lungs CTA BL, no w/r/c GI: Abd soft, non-distended, non-tender, no r/r/g Musc: Full ROM, no deformity Skin: Warm, dry Neuro: Alert, oriented, grossly intact, sensation intact Psych: Cooperative, anxious [facility] Medical History Asthma Depression Anxiety Wears glasses Marijuana use Restless legs History of gastritis Former smoker History of pain when walking History of edema Hx of fracture of tibia Asthma History of GERD History of substance abuse Depression SOB (shortness of breath) Schizoaffective disorder, bipolar type History of alcohol abuse Bipolar 1 disorder Anxiety Home Medications ?Medication ?Instructions ?Recorded ?Last Taken ?Type haloperidol 5 mg tablet 5 mg PO BID depressive disor ahmet 02/05/24 Unknown History hydroxyzine pamoate 25 mg capsule 25 mg PO BID 4 Unknown History lorazepam 1 mg tablet (Ativan) 1 mg PO TID PRN anxiety #10 tabs 02/05/24 Unknown Rx paliperidone 6 mg tablet,extended 6 mg PO QHS 02/05/24 Unknown History release 24 hr buspirone 10 mg tablet 10 mg PO TID 07/11/24 Unknow n History clonidine HCl 0.1 mg tablet 0.1 mg PO TID 07/11/24 Unk nown History esomeprazole magnesium 20 mg 20 mg PO BID 07/11/24 Unk nown History capsule,delayed release esomeprazole magnesium 40 mg 40 mg PO DAILY #30 caps 0 07/11/24 Unknown Rx capsule,delayed release (Nexium) melatonin 10 mg capsule 10 mg PO QHS 07/11/24 Unknow n History nicotine 14 mg/24 hr daily 1 patch topical DAILY 07/11 Unknown History transdermal patch prazosin 1 mg capsule 1 mg PO QHS 07/11/24 Unknown History Allergy/AdvReac Type Severity Reaction Status Date / Time ondansetron (From Zofran) AdvReac Other Verified 08/12/24 15:28 Family History no significant family his Social History Smoking Status: Current every day smoker tobacco type: cigarettes and smokeless tobacco alcohol intake: former substance use type: does not use and other details: Former use of Marijuana EXAM Physical Exam Const Vital Signs: 08/12/24 15:26 08/12/24 17:26 08/12/24 19:00 Temperature 98.2 F Temperature Source Oral Pulse Rate 89 64 77 Respiratory Rate 16 19 H Blood Pressure 131/89 H 104/61 Blood Pressure Mean 103 75 Pulse Ox 98 98 Oxygen Delivery Method Room Air Room Air 08/12/24 20:38 08/12/24 20:38 Temperature 98.2 F 98.2 F Temperature Source Pulse Rate 77 77 Respiratory Rate 16 16 Blood Pressure 104/61 104/61 Blood Pressure Mean 75 75 Pulse Ox 98 98 Oxygen Delivery Method MDM MDM MDM Narrative Medical decision making narrative: 34-year-old male with past medical history of anxiety, depression, GERD, bipolar disorder, schizoaffective disorder, previous alcohol abuse presents for evaluation of epigastric/right upper quadrant burning and pain. Patient recently just had his GERD medication changed. Vitals unremarkable. Physical exam unremarkable except for anxiety. Differential diagnosis includes but is not limited to GERD, gastritis, PUD, pancreatitis, anxiety reaction, suspect less likely cholecystitis or cholelithiasis. Patient was offered Ativan for his anxiety. Originally he declined as he states he is not allowed to have benzos at the sober living. I personally called staff with the patient in the room and they okay with one-time Ativan. IV Ativan ordered. GI cocktail ordered for pain. Laboratory workup ordered. I do not think any imaging is needed at this time given abdominal exam is benign. Patient refused Ativan after it was ordered however shortly accepted and received it. CBC without leukocytosis or anemia. CMP relatively unremarkable. No electrolyte abnormality, no acute CHELLE, no transaminitis. Lipase unremarkable. On reevaluation, patient is less anxious. His symptoms have improved with GI cocktail. Suspect that his symptoms are likely secondary to his known GERD with change in medication. Recommend following up with PCP. Return precautions explained. He confirmed un derstanding the plan. Impression: 1. GERD 2. Anxiety with history of anxiety Lab Data Labs: Laboratory Results - last 24 hr 08/12/24 18:33 WBC 10.6 RBC 4.77 Hgb 13.8 Hct 39.2 L MCV 82.2 MCH 28.9 MCHC 35.2 RDW Std Deviation 38.6 RDW Coeff of Klaus 12.9 Plt Count 249 MPV 10.1 Immature Gran % (Auto) 0.600 Neut % (Auto) 67.1 Lymph % (Auto) 22.6 [place] % (Auto) 8.3 Eos % (Auto) 0.9 Baso % (Auto) 0.5 Absolute Neuts (auto) 7.1 Absolute Lymphs (auto) 2.40 Nucleated RBC % 0 Sodium 133 Potassium 3.9 Chloride 98 Carbon Dioxide 23.1 Anion Gap 12 BUN 5 Creatinine 0.93 Estim Creat Clear Calc 122.09 Est GFR (MDRD) Non-Af 112 BUN/Creatinine Ratio 5.8 L Glucose 104 H Calcium 9.5 Total Bilirubin 0.34 AST 24 ALT 26 Alkaline Phosphatase 64 Total Protein 7.2 Albumin 4.8 Globulin 2.4 Albumin/Globulin Ratio 2.0 Lipase 30 Discharge Plan Triage Chief Complaint: Anxiety Other Complaint: Abd Pain ED Provider: Aidan Hickey Dx/Rx/DC Orders Clinical Impression: Anxiety, Chronic gastroesophageal reflux disease Instructions: ED Anxiety Reaction, ED GERD (Adult) Prescriptions: No Action haloperidol 5 mg tablet 5 mg PO BID hydroxyzine pamoate 25 mg capsule 25 mg PO BID paliperidone 6 mg tablet extended release 24hr 6 mg PO QHS lorazepam [Ativan] 1 mg tablet 1 mg PO TID PRN (Reason: anxiety) Qty: 10 0RF clonidine HCl 0.1 mg tablet 0.1 mg PO TID nicotine 14 mg/24 hr patch 24 hour 1 patch topical DAILY prazosin 1 mg capsule 1 mg PO QHS buspirone 10 mg tablet 10 mg PO TID esomeprazole magnesium 20 mg capsule,delayed release(DR/EC) 20 mg PO BID melatonin 10 mg capsule 10 mg PO QHS esomeprazole magnesium [Nexium] 40 mg capsule,delayed release(DR/EC) 40 mg PO DAILY Qty: 30 0RF Primary Care Provider: Waylon Dye Referrals: Waylon Dye MD [Primary Care Provider] - 3-5 Days Activity Restrictions/Additional Instructions: He received Ativan here in the emergency department. Please let your sober living know this. Return back to the ED if symptoms change or worsen. Follow- up with PCP. Print Language: [place] Disposition Disposition: Home, Self Care Discharge Date/Time: 08/12/24 20:39
[2024-08-12] MEDS: Lorazepam 2 MG/ML WCH Syringe 1 MG IV (19:50)
[2024-08-12 20:38] VITALS: BP 104/61; PULSE 77; RESP 16; TEMP 36.8; O2SAT 98
== END 2024-08-12 20:39 | disposition home or self-care (01) ==
PROVIDERS: Emergency Provider Surgery; PCP Family Medicine; Visit Provider Surgery
DX: K21.9 Gastro-esophageal reflux disease without esophagitis (principal); F41.9 Anxiety disorder, unspecified; F17.210 Nicotine dependence, cigarettes, uncomplicated; F17.220 Nicotine dependence, chewing tobacco, uncomplicated; Z79.899 Other long term (current) drug therapy
CPT/HCPCS: 80053; 83690; 85025; 93005; 96374; 99283; A4216

== ENCOUNTER → 2024-08-22 | Outpatient (CLI) | payer MEDICAID, SELFPAY ==
[2024-08-24 11:08] LABS: Giardia Lamblia, Stool EIA Negative (Negative)
[2024-08-25 08:08] LABS: Calprotectin, Stool 43 ug/g (0-120)
== END | disposition home or self-care (01) ==
LOC: LABSPEC 14:58
PROVIDERS: PCP Family Medicine; Referring Provider Student in an Organized Health Care Education/Training Program; Visit Provider Student in an Organized Health Care Education/Training Program
DX: K58.9 Irritable bowel syndrome, unspecified (principal); K21.9 Gastro-esophageal reflux disease without esophagitis
CPT/HCPCS: 83630; 83993; 87177; 87209; 87329; 87493; 87506

== ENCOUNTER 2024-10-19 12:16 | Emergency (ER) | payer MEDICAID, SELFPAY ==
[2024-10-19 12:17] VITALS: BP 111/63; PULSE 85; RESP 20; TEMP 36.4; O2SAT 99; BMI 29.1
--- NOTE | 2024-10-19 15:15 | RAD_ITS ---
PROCEDURE: CHEST PA AND LATERAL 10/19/2024 REASON FOR EXAM: SOB TECHNIQUE: CHEST PA AND LATERAL COMPARISON: Prior study dated September 03, 2022. FINDINGS: Hardware: None Heart: The heart size is normal. Mediastinum: The mediastinal contour is unremarkable. Lungs: The lungs are clear. Bones: The bones are unremarkable. RAD/Chest PA and Lateral IMPRESSION: NO ACUTE FINDINGS. Reading Location: [facility]
[2024-10-19] MEDS: LORazepam 1 MG Tablet PO (15:37)
--- NOTE | 2024-10-19 15:37 | EX.ED.DYSGE1 ---
HPI History of Present Illness Chief Complaint: Anxiety Narrative Narrative: Patient is a 34-year-old male with past medical history of anxiety, depression, gastritis, GERD, bipolar disorder who presents to the emergency department the chief complaint of difficulty breathing. He states that he supposed get a scope in 2 days for concern of gastritis. He states that he recently on the had his second injection of his Invega and noted they changed him from the pill as the pill was not being digested properly. He states that he just feels like he is having difficulty breathing. Patient denies any recent travel history denies any sick contacts denies any history of blood clots. [facility] Medical History Asthma Depression Anxiety Wears glasses Marijuana use Restless legs History of gastritis Former smoker History of pain when walking History of edema Hx of fracture of tibia Asthma History of GERD History of substance abuse Depression SOB (shortness of breath) Schizoaffective disorder, bipolar type History of alcohol abuse Bipolar 1 disorder Anxiety Home Medications ?Medication ?Instructions ?Recorded ?Last Taken ?Type haloperidol 5 mg tablet 5 mg PO BID depressive disorder 02/05/24 Unknown History hydroxyzine pamoate 25 mg capsule 25 mg PO BID 02/05/24 Unknown History lorazepam 1 mg tablet (Ativan) 1 mg PO TID PRN anxiety #10 tabs 02/05/24 Unknown Rx paliperidone 6 mg tablet,extended 6 mg PO QHS 02/05/24 Unknown History release 24 hr buspirone 10 mg tablet 10 mg PO TID 07/11/24 Unknown History clonidine HCl 0.1 mg tablet 0.1 mg PO TID 07/11/24 Unknown History melatonin 10 mg capsule 10 mg PO QHS 07/11/24 Unknown History nicotine 14 mg/24 hr daily 1 patch topical DAILY 07/11/24 Unknown History transdermal patch prazosin 1 mg capsule 1 mg PO QHS 07/11/24 Unknown History esomeprazole magnesium 40 mg 40 mg PO BID #60 caps 09/15/24 Unknown Rx capsule,delayed release dicyclomine 20 mg tablet 20 mg PO BID PRN abdominal pain 10/17/24 Unknown Rx #30 tabs famotidine 40 mg tablet 40 mg PO QHS #30 tabs 10/17/24 Unknown Rx albuterol sulfate 90 mcg/actuation 2 inh inhalation Q6H PRN shortness 10/19/24 Unknown Rx breath activated powder inhaler of breath or wheezing #1 ea (ProAir RespiClick) Allergy/AdvReac Type Severity Reaction Status Date / Time ondansetron (From Zofran) AdvReac Other Verified 08/12/24 15:28 Social History Smoking Status: Current every day smoker tobacco type: cigarettes and smokeless tobacco alcohol intake: former substance use type: does not use and other details: Former use of Marijuana ROS ROS ED ROS Narrative Constitutional: Denies fevers, chills, headaches, lightness, dizziness Eyes: Denies change in vision double vision blurry vision Cardiovascular: Denies chest pain or palpitations Respiratory: Shortness of breath and cough denies wheezing Abdomen: Denies abdominal pain nausea vomit diarrhea : Denies any urinary symptoms Neurological: Denies numbness, aches, tingling Musculoskeletal: Denies back pain Skin: Denies rashes or lesions EXAM Physical Exam Narrative Exam Narrative: General: Patient was lying in bed rest comfortably did not appear to be in acute distress Head: Atraumatic, normocephalic Eyes: PERRL bilaterally, EOMI bladder, no conjunctival injection noted Neck: Soft, supple, trachea midline Cardiovascular: Regular rate and rhythm no murmurs gallops rubs noted Respiratory: Clear to auscultation bilaterally no rales rhonchi or wheezes noted Abdomen: Soft, nondistended, nontender to palpation Extremities: +5/5 strength noted in the upper and lower extremities, radial pulse +2/4 in the right extremities, no pedal edema exam Neurological: Patient following commands knew that he was at [facility] years 2024 Skin: Warm, dry, intact no rashes or lesions noted no hives noted no purpura Const Vital Signs: 10/19/24 12:17 10/19/24 15:40 10/19/24 16:14 Temperature 97.6 F L Temperature Source Temporal Pulse Rate 85 85 60 Respiratory Rate 20 H 20 H 16 Respiratory Pattern Normal Blood Pressure 111/63 133/81 H Blood Pressure Mean 79 98 Pulse Ox 99 100 Oxygen Delivery Method Room Air Room Air MDM MDM MDM Narrative Medical decision making narrative: Patient is a 34-year-old male who presented to the emergency department the chief complaint of shortness of breath. On the differential diagnose includes but not limited to anxiety, pneumothorax, pneumonia, cardiac arrhythmia. Patient was given a milligram of oral Ativan and be reevaluated. Patient chest x-ray reviewed by myself by radiology showed no acute cardiopulmonary processes. Patient's EKG reviewed showed sinus bradycardia with rate of 56 bpm. Patient requested breathing treatment as he felt like he was wheezing even though when I listen to his lungs he was not he was given 2 DuoNeb's. Patient ambulated well in the emergency department no tachycardia no hypoxia Patient is requesting a albuterol inhaler to go home with. He was advised to follow-up with his doctor for scope in 2 days. He is advised to return with worsening symptoms and concerns. He is agreeable this plan all questions were answered he was discharged home in stable condition. Radiography Diagnostic Testing: Clinical Impression(s) from Imaging Studies Chest X-Ray 10/19/24 15:15 IMPRESSION: NO ACUTE FINDINGS. Reading Location: [id number] Discharge Plan Triage Chief Complaint: Anxiety ED Provider: Lester Aguilar Dx/Rx/DC Orders Clinical Impression: Shortness of breath, Anxiety Prescriptions: New ProAir RespiClick 90 mcg/actuation aerosol powdr breath activated 2 inh inhalation Q6H PRN (Reason: shortness of breath or wheezing) Qty: 1 0RF No Action haloperidol 5 mg tablet 5 mg PO BID hydroxyzine pamoate 25 mg capsule 25 mg PO BID paliperidone 6 mg tablet extended release 24hr 6 mg PO QHS lorazepam [Ativan] 1 mg tablet 1 mg PO TID PRN (Reason: anxiety) Qty: 10 0RF clonidine HCl 0.1 mg tablet 0.1 mg PO TID nicotine 14 mg/24 hr patch 24 hour 1 patch topical DAILY prazosin 1 mg capsule 1 mg PO QHS buspirone 10 mg tablet 10 mg PO TID melatonin 10 mg capsule 10 mg PO QHS esomeprazole magnesium 40 mg capsule,delayed release(DR/EC) 40 mg PO BID Qty: 60 3RF famotidine 40 mg tablet 40 mg PO QHS Qty: 30 2RF dicyclomine 20 mg tablet 20 mg PO BID PRN (Reason: abdominal pain) Qty: 30 0RF Primary Care Provider: Waylon Dye Referrals: Waylon Dye MD [Primary Care Provider] - Activity Restrictions/Additional Instructions: Follow-up your doctor in outpatient setting. Use inhaler as prescribed. Return with worsening symptoms and concerns. Your chest x-ray did not show any evidence of pneumonia. Print Language: Khmer Disposition Disposition: Home, Self Care
[2024-10-19 15:40] VITALS: BP 133/81; PULSE 85; RESP 20; O2SAT 100
[2024-10-19] MEDS: Ipratropium/Albuterol Sulfate 3 ML AMPUL.NEB INHALATION ×2 (16:13)
[2024-10-19 16:14] VITALS: PULSE 60; RESP 16
[2024-10-19 16:42] VITALS: O2SAT 93
[2024-10-19 16:54] VITALS: BP 117/65; PULSE 80; RESP 18; TEMP 36.2; O2SAT 99
== END 2024-10-19 16:58 | disposition home or self-care (01) ==
PROVIDERS: Emergency Provider Emergency Medicine; PCP Family Medicine; Visit Provider Emergency Medicine
DX: R06.02 Shortness of breath (principal); F41.9 Anxiety disorder, unspecified; F17.210 Nicotine dependence, cigarettes, uncomplicated; F17.220 Nicotine dependence, chewing tobacco, uncomplicated; Z79.899 Other long term (current) drug therapy
CPT/HCPCS: 71046; 93005; 94640; 99282

== ENCOUNTER 2024-10-21 10:58 | Day surgery (SDC) | payer MEDICAID, SELFPAY ==
--- NOTE | 2024-10-20 14:22 | PAT.ANE_ITS ---
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 When Was Last Pacemaker Check QUESTION #4 FULL TEXT: You/Your Family Experience fever (hyperthermia) with Anesthesia Last Oral Intake Last Oral intake: Last Oral Intake NPO since Meds taken in AM with sips of water? Meds patient instructed to take am of surgery PONV PONV - pharmacy technician trainee: PONV - pharmacy technician trainee Female No 10/20/24 09:55 HX of Motion Sickness Yes 10/20/24 09:55 HX of N/V After Surgery No 10/20/24 09:55 Non-Smoker No 10/20/24 09:55 Duration of Surgery greater No 10/20/24 09:55 than 60 minutes Number of Risk Factors 1 10/20/24 09:55 PONV Score Low Risk 10/20/24 09:55 Height & Weight Height & Weight: Anesthesia: Height & Weight Height 5 ft 7 in 10/19/24 12:17 Respiratory Assessment Respiratory Assessment - pharmacy technician trainee: Respiratory Tract Infection Hx - pharmacy technician trainee Hx Respiratory Tract Infection Yes: CURRENT CHEST COLD 10/20/24 09:55 STOP Sleep Apnea STOP Sleep Apnea - pharmacy technician trainee: STOP Sleep Apnea - pharmacy technician trainee Hx Hypertension No 10/20/24 09:55 Hx Sleep Apnea No 10/20/24 09:55 CPAP No 04/29/21 12:37 BIPAP Do you snore loudly (louder No 10/20/24 09:55 than talking or can be heard Do you often feel tired/ No 10/20/24 09:55 fatigued/ sleepy during daytime? Has anyone observed you stop No 10/20/24 09:55 breathing during sleep? STOP Results Negative 10/20/24 09:55 QUESTION #5 FULL TEXT : Do you snore loudly (louder than talking or can be heard through closed doors)? 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 Specify any problems Hx of Preganancy in last 3 N/A 10/20/24 09:55 Months Nurse Filling Out Transfusion NBUCHER 10/20/24 09:55 & Questions: Date: 10/20/24 10/20/24 09:55 Time: :10/20/24 09:55 Patient unable to answer at this time (ie. confused, unrespo /Reproduction History /Reproductive History - pharmacy technician trainee: /Reproductive Hx- pharmacy technician trainee Hx Now No 10/20/24 09:55 Gestational Age (in weeks): EDC: Hx Hx Para Hx Section SAB No 10/20/24 09:55 PFSH Medical History (Updated 10/20/24 @ 10:04 by Yessi Branch) Dietary restriction Esophageal tear Smoker Chest pain Asthma Depression Anxiety Wears glasses Marijuana use Restless legs History of gastritis Former smoker History of pain when walking History of edema Hx of fracture of tibia Asthma History of GERD History of substance abuse Depression SOB (shortness of breath) Schizoaffective disorder, bipolar type History of alcohol abuse Bipolar 1 disorder Anxiety Home Medications ?Medication ?Instructions ?Recorded ?Last Taken ?Type buspirone 10 mg tablet 10 mg PO TID 07/11/24 Unknow n History prazosin 1 mg capsule 1 mg PO QHS 07/11/24 Unknown History esomeprazole magnesium 40 mg 40 mg PO BID #60 caps Unknown Rx capsule,delayed release dicyclomine 20 mg tablet 20 mg PO BID PRN abdominal p ain 10/17/24 Unknown Rx #30 tabs albuterol sulfate 90 mcg/actuation 2 inh inhalation Q6 H PRN shortness 10/19/24 Unknown Rx breath activated powder inhaler of breath or wheezing #1 ea (ProAir RespiClick) benztropine 1 mg tablet 1 mg PO DAILY 10/19/24 Unkno wn History clonidine HCl 0.2 mg tablet 0.2 mg PO TID 10/19/24 Unk nown History hydroxyzine HCl 50 mg tablet 50 mg PO DAILY PRN sleep 10/19/24 Unknown History famotidine 40 mg tablet 40 mg PO QHS PRN GERD Unknown History paliperidone palmitate 156 mg/mL 156 mg IM Q30D Unknown History intramuscular syringe (Invega Sustenna) Allergy/AdvReac Type Severity Reaction Status Date / Time ondansetron (From Zofran) AdvReac Other Verified 08/12/24 15:28 Surgical History (Updated 10/20/24 @ 10:04 by Yessi Branch) History of surgery on lower extremity History of esophagogastroduodenoscopy (EGD) Social History Smoking Status: Current every day smoker tobacco type: cigarettes alcohol intake: former substance use type: does not use and other details: Former use of Marijuana Audit: Pertinent Findings Pertinent Findings EKG Perinent findings: August 12, 2024. Normal sinus rhythm. Minimal voltage criteria for LVH. Recommendation Anesthesia Recommendation Anesthesia recommendation: OPTIMIZED for anesthesia
[2024-10-21] VITALS (10 sets, daily range): BP systolic 94–125; BP diastolic 58–88; PULSE 48–72; RESP 16–24; TEMP 36.3–36.6; O2SAT 92–97; BMI 27.9
--- NOTE | 2024-10-21 11:13 | PCM.HP.STD ---
HPI - General General Date of Admission: 10/21/24 Date of Service: 10/21/24 Chief Complaint: Abdominal pain and GERD HPI Narrative MATTY DHILLON, is a 34 M who presents for the evaluation of : epigastric pain BGI established in 2019 with abd pain. EGD 01.02.22 - LA Grade B reflux esophagitis. Biopsied. - Non-obstructing Schatzki ring. - Erythematous mucosa in the antrum. Biopsied. - Erythematous duodenopathy. Biopsied. GES; not completed [facility] ED 07.21.24 with abd pain and anxiety. Work up with mild leukocytosis with a left shift. Rectal exam with blood OV 08.18.24 Pt here today to re establish care with [facility]GI. Pt has been stable on Nexium for a few years however a few weeks ago he started to have epigastric pain again. He has been seen in the ER for a few occasions for this with an unremarkable work up. His PCP switched him to pantoprazole 20 mg BID about a week ago. It was not helping at first but he feels it is now. He endorses diarrhea since the epigastric pain started. He says its all day but less than 5x per day. It is soft and liquid. He did notice some bright red blood a few days ago but this went away. [facility] Medical History (Updated 10/20/24 @ 10:04 by Yessi Branch) Dietary restriction Esophageal tear Smoker Chest pain Asthma Depression Anxiety Wears glasses Marijuana use Restless legs History of gastritis Former smoker History of pain when walking History of edema Hx of fracture of tibia Asthma History of GERD History of substance abuse Depression SOB (shortness of breath) Schizoaffective disorder, bipolar type History of alcohol abuse Bipolar 1 disorder Anxiety Home Medications ?Medication ?Instructions ?Recorded ?Last Taken ?Type buspirone 10 mg tablet 10 mg PO TID 07/11/24 10/21/24 History prazosin 1 mg capsule 1 mg PO QHS 07/11/24 10/20/24 History esomeprazole magnesium 40 mg 40 mg PO BID #60 caps 09/15/24 10/21/24 Rx capsule,delayed release dicyclomine 20 mg tablet 20 mg PO BID PRN abdominal pain 10/17/24 10/21/24 Rx #30 tabs albuterol sulfate 90 mcg/actuation 2 inh inhalation Q6H PRN shortness 10/19/24 10/21/24 Rx breath activated powder inhaler of breath or wheezing #1 ea (ProAir RespiClick) benztropine 1 mg tablet 1 mg PO DAILY 10/19/24 10/21/24 History clonidine HCl 0.2 mg tablet 0.2 mg PO TID 10/19/24 10/21/24 History hydroxyzine HCl 50 mg tablet 50 mg PO DAILY PRN sleep 10/19/24 10/21/24 History famotidine 40 mg tablet 40 mg PO QHS PRN GERD 10/20/24 Unknown History paliperidone palmitate 156 mg/mL 156 mg IM Q30D 10/20/24 Unknown History intramuscular syringe (Invega Sustenna) Allergy/AdvReac Type Severity Reaction Status Date / Time ondansetron (From Zofran) AdvReac Other Verified 10/21/24 11:13 Surgical History (Updated 10/20/24 @ 10:04 by Yessi Branch) History of surgery on lower extremity History of esophagogastroduodenoscopy (EGD) Social History Smoking Status: Current every day smoker tobacco type: cigarettes alcohol intake: former substance use type: does not use and other details: Former use of Marijuana ROS Constitutional Constitutional: Denies fatigue, fever(s), poor appetite, weight gain or weight loss Gastrointestinal Gastrointestinal: Denies belching, bloating, change in bowel habits, change in stool character, chewing difficulty, coffee ground emesis, constipation, cramping, diarrhea, dyspepsia, dysphagia, early satiety, excessive flatus, fecal incontinence, heartburn, hematemesis, hematochezia, hemorrhoids, loose stools, melena, nausea, odynophagia, rectal bleeding, tenesmus, vomiting or weight changes Physical Exam Const alert, oriented x3, no apparent distress and healthy appearing General Appearance: cooperative GI normal to inspection, nondistended, normoactive bowel sounds, soft to palpation, non-tender and non-distended Percussion: normal to percussion Rectal Exam: deferred Assessment & Plan Assessment/Plan (1) Abdominal pain: (2) Bipolar 1 disorder: (3) Gastro-esophageal reflux disease with esophagitis, without bleeding: PLAN: Plan Sigmoid colitis. She will be placed on medical therapy. If she fails medical therapy she will need colonoscopy for evaluation of her lower GI tract.
[2024-10-21] MEDS: Lactated Ringers 1,000 ML 15 ML IV (11:23)
--- NOTE | 2024-10-21 11:39 | PRE.ANES_ITS ---
ASA Classification* ASA Classification ASA Classification: 3 Assessment & Plan Anesthesia* Anesthesia Assessment Anesthesia Assessment: Discussed sedation and/or anesthesia options, risks, benefits, and alternatives with patient/parents/legal guardian/POA. Questions invited. The patient/parents/legal guardian/POA seems to understand and agrees to proceed with anesthesia plan. Reviewed the physical assessment, medical history, allergy history and patient home medications list prior to surgery/procedure/anesthetic and documented any changes. Performed airway and anesthesia risk assessments. Anesthesia Type Anesthesia Type: MAC History Source History Obtained from:: Patient and Chart Anesthesia Focused Assessment* Temperature: 97.6 F Pulse Rate: 51 Blood Pressure: 98/58 Respiratory Rate: 24 Pulse Ox: 97 Oxygen Delivery Method: Room Air Airway Assessment Mouth opens: >3 cm Mallampati Score: IV Teeth Condition: Caps/Crowns (Patient recently had a crown fall off. Rest of the teeth are tight.) Neck Range of motion (ROM): Full ROM Labs Anesthesia Preop lab: CBC WBC 10.6 K/mm3 (4.4-11.0) 08/12/24:08/12/24 RBC 4.77 M/mm3 (4.6-6.2) 08/12/24:08/12/24 Hgb 13.8 g/dL (13.0-16.5) 08/12/24:08/12/24 Hct 39.2 % (40-54) L 08/12/24 18:08/12/24 Plt Count 249 K/mm3 (150-450) 08/12/24:08/12/24 CHEMISTRY Potassium 3.9 mmol/L (3.3-5.1) 08/12/24 18:08/12/24 Sodium 133 mmol/L (133-145) 08/12/24 18:08/12/24 BUN 5 mg/dL (4-19) 08/12/24:08/12/24 Creatinine 0.93 mg/dL (0.70-1.20) 08/12/24 18:08/12/24 Glucose 104 mg/dL (70-99) H 08/12/24 18:08/12/24 TSH 1.30 uIU/mL (0.358-3.74) 10/24/19 16:31 COAG Pre-Assessment Diagnosis/Proposed Procedure Planned Operative Procedure(s): EGD Anesthesia History Anesthesia History - welding specialist: Anesthesia History - welding specialist Hx Hospitalization No 10/20/24 09:55 Any Problems With Anesthesia No 10/20/24 09:55 Cholinesterase deficiency No 10/20/24 09:55 You/Your Family Experience No 10/20/24 09:55 fever (hyperthermia) with Relationship Recent Exposure to Contagious No 10/21/24 11:14 Disease Does patient have nerve No 10/20/24 09:55 stimulator Patient instructed to have device shut off --Does patient have Pacemaker No 10/21/24 11:14 or ICD? When Was Last Pacemaker Check QUESTION #4 FULL TEXT: You/Your Family Experience fever (hyperthermia) with Anesthesia Last Oral Intake Last Oral intake: Last Oral Intake NPO since 00:00 10/21/24 11:14 Meds taken in AM with sips of water? Meds patient instructed to take am of surgery Any additional information?: Yes Meds taken in AM with sips of water?: Yes PONV PONV - welding specialist: PONV - welding specialist Female No 10/20/24 09:55 HX of Motion Sickness Yes 10/20/24 09:55 HX of N/V After Surgery No 10/20/24 09:55 Non-Smoker No 10/20/24 09:55 Duration of Surgery greater No 10/20/24 09:55 than 60 minutes Number of Risk Factors 1 10/20/24 09:55 PONV Score Low Risk 10/20/24 09:55 Height & Weight Height & Weight: Anesthesia: Height & Weight Height 5 ft 7 in 10/21/24 11:14 Weight: 81 kg 10/21/24 11:14 Body Mass Index (BMI) 27.9 10/21/24 11:14 Respiratory Assessment Respiratory Assessment - welding specialist: Respiratory Tract Infection Hx - welding specialist Hx Respiratory Tract Infection Yes: CURRENT CHEST COLD 10/20/24 09:55 STOP Sleep Apnea STOP Sleep Apnea - welding specialist: STOP Sleep Apnea - welding specialist Hx Hypertension No 10/20/24 09:55 Hx Sleep Apnea No 10/20/24 09:55 CPAP No 04/29/21 12:37 BIPAP Do you snore loudly (louder No 10/20/24 09:55 than talking or can be heard Do you often feel tired/ No 10/20/24 09:55 fatigued/ sleepy during daytime? Has anyone observed you stop No 10/20/24 09:55 breathing during sleep? STOP Results Negative 10/20/24 09:55 QUESTION #5 FULL TEXT : Do you snore loudly (louder than talking or can be heard through closed doors)? Tobacco Use History Tobacco Use History - welding specialist: Tobacco Use History - welding specialist Tobacco Use Smoking Status Current every day smoker 10/20/24 09:55 Hx Tobacco Use Yes 10/20/24 09:55 Years Smoking Packs Smoked per Day 0.5 10/20/24 09:55 Smoking Cessation Date was within the last 15 years Hx Smoking Cessation Date Hx Smoking Cessation Counseling Any additional information?: Yes Smoking Status: Current every day smoker (Patient smoked today.) Hematologic Medial History Hematologic Hx - welding specialist: Hematologic Medical Hx - rn clinical documentation Hx of Blood Transfusion No 10/20/24 09:55 Hx of Transfusion in last 3 No 10/20/24 09:55 Months Date of Last Transfusion (if within last 3 months) Ever experience any problems No 10/20/24 09:55 with transfusion(s)? Specify any problems Hx of Preganancy in last 3 N/A 10/20/24 09:55 Months Nurse Filling Out Transfusion NBUCHER 10/20/24 09:55 & Questions: Date: 10/20/24 10/20/24 09:55 Time: 09:57 10/20/24 09:55 Patient unable to answer at this time (ie. confused, unrespo /Reproduction History /Reproductive History - welding specialist: /Reproductive Hx- welding specialist Hx Now No 10/20/24 09:55 Gestational Age (in weeks): EDC: Hx Hx Para Hx Section SAB No 10/20/24 09:55 Active Medications Active Medications: Current Medications Generic Name Dose Route Start Last Admin Trade Name Freq PRN Reason Stop Dose Admin Lactated Ringer's 1,000 mls @ 15 mls/hr 10/21/24 11:15 10/21/24 11:23 IV 15 mls/hr .Q48H YEIMI Administration PFSH Medical History Dietary restriction Esophageal tear Smoker Chest pain Asthma Depression Anxiety Wears glasses Marijuana use Restless legs History of gastritis Former smoker History of pain when walking History of edema Hx of fracture of tibia Asthma History of GERD History of substance abuse Depression SOB (shortness of breath) Schizoaffective disorder, bipolar type History of alcohol abuse Bipolar 1 disorder Anxiety Home Medications ?Medication ?Instructions ?Recorded ?Last Taken ?Type buspirone 10 mg tablet 10 mg PO TID 07/11/24 History prazosin 1 mg capsule 1 mg PO QHS 07/11/24 5 History esomeprazole magnesium 40 mg 40 mg PO BID #60 caps 10/21/24 Rx capsule,delayed release dicyclomine 20 mg tablet 20 mg PO BID PRN abdominal p ain 10/17/24 10/21/24 Rx #30 tabs albuterol sulfate 90 mcg/actuation 2 inh inhalation Q6 H PRN shortness 10/19/24 10/21/24 Rx breath activated powder inhaler of breath or wheezing #1 ea (ProAir RespiClick) benztropine 1 mg tablet 1 mg PO DAILY 10/19/2410/21 History clonidine HCl 0.2 mg tablet 0.2 mg PO TID 10/19/24 History hydroxyzine HCl 50 mg tablet 50 mg PO DAILY PRN sleep 10/19/24 10/21/24 History famotidine 40 mg tablet 40 mg PO QHS PRN GERD Unknown History paliperidone palmitate 156 mg/mL 156 mg IM Q30D Unknown History intramuscular syringe (Invega Sustenna) Allergy/AdvReac Type Severity Reaction Status Date / Time ondansetron (From Zofran) AdvReac Other Verified 10/21/24 11:13 Surgical History History of surgery on lower extremity History of esophagogastroduodenoscopy (EGD) Social History Smoking Status: Current every day smoker (Patient smoked today.) tobacco type: cigarettes alcohol intake: former substance use type: does not use and other details: Former use of Marijuana Review of Systems (Anesthesia) ROS Narrative System reviewed and no additional complaints, except as documented.
[2024-10-21] MEDS: Ipratropium/Albuterol Sulfate 3 ML AMPUL.NEB INHALATION (11:59)
--- NOTE | 2024-10-21 12:00 | EGD_PTH ---
PATIENT: MATTY DHILLON LOC: EN U#:[id number] AGE/SX: 34/M ROOM: RE10/21/[address]: Dr. Vishnu Herndon DO : 1990 BED: DIS: 10/21/2024 SPEC #: [id number] RECD: 10/21/24 15:39 STATUS: DIAN MARÍA #: [id number] LINDY: 10/21/24 12:[address]: Vishnu Herndon DEPT: SURGICAL PATHOLOGY RECD BY: Joel Palacios ENTERED: 10/21/24 15:53 SP TYPE: EGD BIOPSY DUNG DR: Dr. Waylon Dye MD Tissues: A - Esophagus, NOS B - Gastric mucous membrane C - Duodenum, NOS Procedures: Immunohistochemical Stains Surgery Specimen Level IV HEADER OPERATION: EGD and biopsy PRE-OP DIAGNOSIS: Abdominal pain and GERD TISSUE SUBMITTED: A- Distal esophagus biopsy, B- Gastric ulcer biopsy, C- Duodenum biopsy MICROSCOPIC DIAGNOSIS A. Distal esophagus, biopsy: - Squamous and columnar mucosa with reactive changes. - Negative for goblet cell metaplasia. B. Gastric ulcer, biopsy: - Oxyntic mucosa with active chronic inflammation and superficial erosion. - IHC for H pylori is pending and will be reported in an addendum. C. Duodenum, biopsy: - Normal villous architecture. - Negative for increased intraepithelial lymphocytes. MICROSCOPIC DESCRIPTION Slides are reviewed. GROSS DESCRIPTION A. Received in fixative is one container labeled with the patient's name and designated Distal esophagus biopsy. The specimen consists of three irregular fragments of light crowell soft tissue that in aggregate measure 0.2 to 0.4 cm. The specimen is totally submitted in one cassette. B. Received in fixative is one container labeled with the patient's name and designated Gastric ulcer biopsy. The specimen consists of two irregular fragments of light crowell soft tissue that in aggregate measure 0.4 and 0.7 cm. The specimen is totally submitted in one cassette. C. Received in fixative is one container labeled with the patient's name and designated Duodenum biopsy. The specimen consists of three irregular fragments of light crowell soft tissue that in aggregate measure 0.3 and 0.5 cm. The specimen is totally submitted in one cassette. Maddy 10/21/2024 CPT:[id number] ADDENDUM ADDENDUM ADDENDUM ADDENDUM ADDENDUM ADDENDUM ADDENDUM ADDENDUM ADDENDUM ADDENDUM 11/04/2024 16:13 ADDENDUM 11/04/2024 16:13 ADDENDUM 11/04/2024 16:13 ADDENDUM 11/04/2024 16:13 ADDENDUM 11/04/2024 16:13 This addendum is to report the IHC for H pylori on part B: B. IHC negative for H pylori organisms. All matched controls reacted appropriately. These tests were developed and their performance characteristics determined by [facility]. They may not have been cleared or approved by the U.S. Food and Drug Administration. The FDA has determined that such clearance or approval is not necessary.? The above immunohistochemical/dualISH?markers are reviewed by the Pathologist.
--- NOTE | 2024-10-21 12:36 | PCM.POST.ANE ---
Anesthesia: Postop Eval I Current Vital Signs Temperature: 97.6 F Pulse Rate: 70 Blood Pressure: 125/78 Respiratory Rate: 20 Pulse Ox: 95 Assessment Airway patent: Yes Spontaneous unlabored respirations: Yes nausea: No Vomiting: No Anesthesia Complication: No Fluid Hydration Crystalloid volume administer (ml): 500 Total IV fluid infused: 500 Progress Note Anesthesia document: Postop Eval 1 completed: Yes
--- NOTE | 2024-10-21 12:38 | OP.CCLET_ITS ---
10/21/2024 Waylon Dye Re : Upper GI endoscopy procedure for Jeronimo Alvarengar Hardik This procedure was performed on Monday, October 21, 2024. My impressions and recommendations are as follows: Impressions : - LA Grade A reflux esophagitis with no bleeding. Biopsied. - Abnormal esophageal motility. - Gastroparesis. - Non-bleeding gastric ulcer with pigmented material. Biopsied. - Erythematous duodenopathy. Recommendations : - Discharge patient to home. - Resume previous diet. - Continue present medications. - Await pathology results. - Use sucralfate tablets 1 gram PO BID for 1 month. My findings are described in the full procedure note, which is enclosed. If I can be of further assistance, please feel free to contact me at . Sincerely, Vishnu Herndon, 10/21/2024 12:37:44 PM This report has been signed electronically.
--- NOTE | 2024-10-21 12:38 | OP.EGD_ITS ---
Patient Name: Jeronimo Whitlock Procedure Date: 10/21/2024 12:13 PM Date of : 1990 Age: 34 Procedure: Upper GI endoscopy Indications: Epigastric abdominal pain, Functional Dyspepsia, Heartburn, Esophageal reflux Providers: Vishnu Herndon DO Referring MD: Waylon Dye Medicines: Monitored Anesthesia Care Patient Profile: This is a 34 year old male. Refer to note in patient chart for documentation of history and physical. Patient has symptoms of chronic chest pain, dysphagia with both liquids and solids, acute dyspepsia, chronic dyspepsia, acute heartburn and chronic heartburn. Complications: No immediate complications. Procedure: Pre-Anesthesia Assessment: - Prior to the procedure, a History and Physical was performed, and patient medications and allergies were reviewed. The patient is competent. The risks and benefits of the procedure and the sedation options and risks were discussed with the patient. All questions were answered and informed consent was obtained. Patient identification and proposed procedure were verified by the physician in the pre-procedure area. Mental Status Examination: alert and oriented. Airway Examination: normal oropharyngeal airway and neck mobility. Respiratory Examination: clear to auscultation. CV Examination: normal. Prophylactic Antibiotics: The patient does not require prophylactic antibiotics. Prior Anticoagulants: The patient has taken no anticoagulant or antiplatelet agents except for NSAID medication. ASA Grade Assessment: II - A patient with mild systemic disease. After reviewing the risks and benefits, the patient was deemed in satisfactory condition to undergo the procedure. The anesthesia plan was to use monitored anesthesia care (MAC). Immediately prior to administration of medications, the patient was re-assessed for adequacy to receive sedatives. The heart rate, respiratory rate, oxygen saturations, blood pressure, adequacy of pulmonary ventilation, and response to care were monitored throughout the procedure. The physical status of the patient was re-assessed after the procedure. After obtaining informed consent, the endoscope was passed under direct vision. Throughout the procedure, the patient's blood pressure, pulse, and oxygen saturations were monitored continuously. The gastroscope was introduced through the mouth, and advanced to the fourth part of the duodenum. Small bowel enteroscopy was deemed necessary. The upper GI endoscopy was accomplished without difficulty. The patient tolerated the procedure well. Scope In: 12:22:51 PM Scope Out: 12:28:29 PM Total Procedure Duration Time 0 hours 5 minutes 38 seconds Findings: LA Grade A (one or more mucosal breaks less than 5 mm, not extending between tops of 2 mucosal folds) esophagitis with no bleeding was found 37 to 40 cm from the incisors. Biopsies were taken with a cold forceps for histology. Verification of patient identification for the specimen was done. Estimated blood loss was minimal. Abnormal motility was noted in the esophagus. The cricopharyngeus was abnormal. There are extra peristaltic waves in the esophageal body. The distal esophagus/lower esophageal sphincter is spastic, but gives up passage to the endoscope. Tertiary peristaltic waves are noted. Suspect gastroparesis due to absence of peristalsis and patient symptoms. One non-bleeding linear gastric ulcer with pigmented material was found in the gastric antrum. The lesion was 8 mm in largest dimension. Biopsies were taken with a cold forceps for histology. Biopsies were taken with a cold forceps for Helicobacter pylori testing. Verification of patient identification for the specimen was done. Estimated blood loss was minimal. Patchy mildly erythematous mucosa without active bleeding and with no stigmata of bleeding was found in the entire duodenum. Impression: - LA Grade A reflux esophagitis with no bleeding. Biopsied. - Abnormal esophageal motility. - Gastroparesis. - Non-bleeding gastric ulcer with pigmented material. Biopsied. - Erythematous duodenopathy. Recommendation: - Discharge patient to home. - Resume previous diet. - Continue present medications. - Await pathology results. - Use sucralfate tablets 1 gram PO BID for 1 month. Procedure Code(s): --- Professional --- 09445, Small intestinal endoscopy, enteroscopy beyond second portion of duodenum, not including ileum; with biopsy, single or multiple CPT copyright 2021 [employer]. All rights reserved. The codes documented in this report are preliminary and upon seeing eye dog trainer review may be revised to meet current compliance requirements. Vishnu Herndon DO 10/21/2024 12:37:44 PM This report has been signed electronically. Number of Addenda: 0 Note Initiated On: 10/21/2024 12:13 PM
--- NOTE | 2024-10-21 13:11 | POSTOPAN2_ITS ---
Anesthesia Postop Eval I Sum Postop Eval Completion status Anesthesia document: Postop Eval 1 completed: Yes Anesthesia Postop Eval I Summary Anesthesia Postop Eval I Summary: Anesthesia Postop Eval I: Assessment Summary Airway patent Yes 10/21/24 12:36 SHUTTLE FINAL INSPECTOR.CSIR Spontaneous unlabored Yes 10/21/24 12:36 SHUTTLE FINAL INSPECTOR.CSIR respirations Mental status nausea No 10/21/24 12:36 SHUTTLE FINAL INSPECTOR.CSIR Vomiting No 10/21/24 12:36 SHUTTLE FINAL INSPECTOR.CSIR Anesthesia Postop Eval I: Fluid Summary Crystalloid volume administer 500 10/21/24 12:36 SHUTTLE FINAL INSPECTOR.CSIR (ml) Colloids volume administered ( ml) Blood Product volume administered (ml) Total IV fluid infused 500 10/21/24 12:36 SHUTTLE FINAL INSPECTOR.CSIR Anesthesia Postop Eval I: Summary Notes Anesthesia Complication No 10/21/24 12:36 SHUTTLE FINAL INSPECTOR.CSIR Anesthesia Complication Comment: Post-operative progress note Anesthesia: Postop Eval II Evaluation Mental status: Awake Pain Level: 0 nausea: No Vomiting: No
--- NOTE | 2024-10-21 13:11 | PCM.POSTANE2 ---
Anesthesia Postop Eval I Sum Postop Eval Completion status Anesthesia document: Postop Eval 1 completed: Yes Anesthesia Postop Eval I Summary Anesthesia Postop Eval I Summary: Anesthesia Postop Eval I: Assessment Summary Airway patent Yes 10/21/24 12:36 MACHINE TACK PULLER.CSIR Spontaneous unlabored Yes 10/21/24 12:36 MACHINE TACK PULLER.CSIR respirations Mental status nausea No 10/21/24 12:36 MACHINE TACK PULLER.CSIR Vomiting No 10/21/24 12:36 MACHINE TACK PULLER.CSIR Anesthesia Postop Eval I: Fluid Summary Crystalloid volume administer 500 10/21/24 12:36 MACHINE TACK PULLER.CSIR (ml) Colloids volume administered ( ml) Blood Product volume administered (ml) Total IV fluid infused 500 10/21/24 12:36 MACHINE TACK PULLER.CSIR Anesthesia Postop Eval I: Summary Notes Anesthesia Complication No 10/21/24 12:36 MACHINE TACK PULLER.CSIR Anesthesia Complication Comment: Post-operative progress note Anesthesia: Postop Eval II Evaluation Mental status: Awake Pain Level: 0 nausea: No Vomiting: No
== END 2024-10-21 13:31 | disposition home or self-care (01) ==
LOC: EN 10:59 → AC 11:00
PROVIDERS: PCP Family Medicine; Referring Provider Family Medicine; Visit Provider Internal Medicine Gastroenterology
PROC: 0DJ08ZZ Inspection of Upper Intestinal Tract, Via Natural or Artificial Opening Endoscopic (ICD-10-PCS; CPT 43235; principal; 2024-10-21 11:55)
DX: K21.00 Gastro-esophageal reflux disease with esophagitis, without bleeding (principal); F25.0 Schizoaffective disorder, bipolar type; K22.4 Dyskinesia of esophagus; K31.89 Other diseases of stomach and duodenum; K25.9 Gastric ulcer, unspecified as acute or chronic, without hemorrhage or perforation; K31.84 Gastroparesis; K52.9 Noninfective gastroenteritis and colitis, unspecified; F41.9 Anxiety disorder, unspecified; F17.210 Nicotine dependence, cigarettes, uncomplicated; Z79.899 Other long term (current) drug therapy
CPT/HCPCS: 43239; 88305; 88342; 94640

== ENCOUNTER 2024-11-01 14:22 | Emergency (ER) | payer MEDICAID, SELFPAY ==
[2024-11-01 14:23] VITALS: BP 113/81; PULSE 79; RESP 22; TEMP 35.9; O2SAT 99
--- NOTE | 2024-11-01 15:26 | CT_ITS ---
PROCEDURE: ABDOMEN/PELVIS W IV CONT ONLY 11/01/2024 REASON FOR EXAM: EPIGASTRIC ABDOMINAL PAIN, KNOWN PUD TECHNIQUE: ABDOMEN/PELVIS W IV CONT ONLY Coronal and Sagittal reconstruction series were provided. CONTRAST: 100 mL of Isovue 370 One or more dose reduction techniques were used (e.g., Automated exposure control, adjustment of the mA and/or kV according to patient size, use of iterative reconstruction technique. RADIATION DOSE SUMMARY: DLP: 742 mGycm COMPARISON: 09/01/2021 FINDINGS: Limited sections of the lung bases demonstrate no focal pulmonary mass or consolidations. The liver, spleen, pancreas, and both adrenal glands demonstrate no acute findings. The gallbladder is unremarkable. The stomach is unremarkable. The small bowel loops are not dilated. The appendix is normal No colonic obstruction. Colonic diverticulosis without acute diverticulitis. Minimal thickening of the rectal wall where proctitis is not excluded. There is no free air or significant free fluid. No hydronephrosis however there is mild hydroureter with distended urinary bladder where reflux is not excluded. The pelvic structures are intact. There is no solid pelvic mass. No significant lymphadenopathy. The aorta and IVC demonstrate no acute findings. Visualized osseous structures demonstrate no acute abnormality. Bilateral L5 pars defects. CT/Abdomen/Pelvis W IV Cont ONLY IMPRESSION: No hydronephrosis however there is mild hydroureter with distended urinary blad ahmet where reflux is not excluded. Minimal thickening of the rectal wall where proctitis is not excluded. Colonic diverticulosis without acute diverticulitis. No bowel obstruction. Reading Location: [id number]
--- NOTE | 2024-11-01 15:38 | EX.ED.GENINJ ---
HPI History of Present Illness Chief Complaint: Other, Pain/Inj Narrative Narrative: Chief complaint and HPI: Epigastric abdominal pain. 34-year-old male with past medical history of chronic epigastric pain, bloating, anxiety presents for evaluation of epigastric abdominal pain. Patient states that he follows with GI secondary to his symptoms. He recently had an EGD performed with Dr. Herndon and was diagnosed with ulcers. Patient states he was recently prescribed Carafate in which he has been taking. He states today his epigastric abdominal pain reoccurred. It feels like his typical pain. He states when he develops pain his anxiety increases. He denies any fever, chills, chest pain, nausea, vomiting, diarrhea, constipation, dysuria. Review of systems: See HPI Medications: As listed on the chart Allergies: As listed on the chart PFSH: Per chart Vital signs: As listed on the chart. Reviewed. Physical exam: Gen: A&O x3, anxious Head: Normocephalic, atraumatic Eyes: No sclera icterus, conjunctiva clear ENT: Moist mucous membranes Neck: Trachea midline, No JVD CV: RRR, no murmurs, no peripheral edema Resp: Lungs CTA BL, no w/r/c GI: Abd soft, minimal tenderness in the epigastrium, non-tender, no r/r/g Musc: Full ROM, no deformity Skin: Warm, dry Neuro: Alert, oriented, grossly intact, sensation intact Psych: Cooperative, anxious [facility] Medical History Dietary restriction Esophageal tear Smoker Chest pain Asthma Depression Anxiety Wears glasses Marijuana use Restless legs History of gastritis Former smoker History of pain when walking History of edema Hx of fracture of tibia Asthma History of GERD History of substance abuse Depression SOB (shortness of breath) Schizoaffective disorder, bipolar type History of alcohol abuse Bipolar 1 disorder Anxiety Home Medications ?Medication ?Instructions ?Recorded ?Last Taken ?Type buspirone 10 mg tablet 10 mg PO TID 07/11/24 10/21/24 History prazosin 1 mg capsule 1 mg PO QHS 07/11/24 10/20/24 History esomeprazole magnesium 40 mg 40 mg PO BID #60 caps 09/15/24 10/21/24 Rx capsule,delayed release dicyclomine 20 mg tablet 20 mg PO BID PRN abdominal pain 10/17/24 10/21/24 Rx #30 tabs albuterol sulfate 90 mcg/actuation 2 inh inhalation Q6H PRN shortness 10/19/24 10/21/24 Rx breath activated powder inhaler of breath or wheezing #1 ea (ProAir RespiClick) benztropine 1 mg tablet 1 mg PO DAILY 10/19/24 10/21/24 History clonidine HCl 0.2 mg tablet 0.2 mg PO TID 10/19/24 10/21/24 History hydroxyzine HCl 50 mg tablet 50 mg PO DAILY PRN sleep 10/19/24 10/21/24 History famotidine 40 mg tablet 40 mg PO QHS PRN GERD 10/20/24 Unknown History paliperidone palmitate 156 mg/mL 156 mg IM Q30D 10/20/24 Unknown History intramuscular syringe (Invega Sustenna) sucralfate 100 mg/mL oral 10 ml PO BID #300 mL 10/21/24 Unknown Rx suspension (Carafate) Allergy/AdvReac Type Severity Reaction Status Date / Time ondansetron (From Zofran) AdvReac Other Verified 11/01/24 14:34 Surgical History History of surgery on lower extremity History of esophagogastroduodenoscopy (EGD) Social History Smoking Status: Current every day smoker tobacco type: cigarettes alcohol intake: former substance use type: does not use and other details: Former use of Marijuana EXAM Physical Exam Const Vital Signs: 11/01/24 14:23 11/01/24 14:32 11/01/24 19:00 Temperature 96.7 F L Temperature Source Temporal Pulse Rate 79 63 Respiratory Rate 22 H 18 Respiratory Pattern Normal Blood Pressure 113/81 H 108/45 L Blood Pressure Mean 91 66 Pulse Ox 99 100 Oxygen Delivery Method Room Air Room Air MDM MDM MDM Narrative Medical decision making narrative: 34-year-old male with past medical history of chronic epigastric pain, bloating, anxiety presents for evaluation of epigastric abdominal pain. Recently diagnosed with an ulcer by Dr. Herndon. Epigastric pain reoccurred today. Patient in no acute acute distress although is very anxious on examination. On chart review, patient had an EGD performed with Dr. Herndon on 10/14/2024. This found with grade a reflux esophagitis with no bleeding. Abnormal esophageal motility. Gastroparesis. Nonbleeding gastric ulcer with pigmented material. Erythematous adenopathy. He was discharged home on sulcal fate twice daily for 1 month. Biopsies were taken. On chart review, and unable to find the pathology of the specimens. Differential diagnosis includes but is not limited to GERD, PUD, pancreatitis, suspect less likely perforation of ulcer, anxiety reaction. Pepcid, Ativan, morphine ordered for symptoms. Laboratory workup ordered including chest x-ray and CT abdomen pelvis. CBC shows mild leukocytosis of 13.6. No anemia. Platelets unremarkable. CMP unremarkable except for hyponatremia at 127. Patient's baseline is about 133. He states he has been eating and drinking well. Lipase unremarkable. Chest x-ray is personally reviewed interpreted by me, ED physician, no pneumonia, effusion, pneumothorax, cardiomegaly, free air. CT abdomen pelvis shows no hydronephrosis however there is mild hydroureter with distended urinary bladder where reflux is not excluded. Minimal thickening of the rectal wall or proctitis is not excluded. Diverticulosis without diverticulitis. Again patient not endorsing any lower abdominal pain. Denies any dysuria, hematuria. Denies any diarrhea. On reevaluation, patient's pain has improved. NS bolus ordered for his hyponatremia, given this is acute I think he would benefit from admission. I spoke to the hospitalist service, Dr. Meade. He recommends just giving IV fluids and repeating BMP. If normal stable to discharge home. Repeat BMP shows normal sodium at 133. Patient stable to discharge home. Follow-up with Dr. Herndon and PCP. He confirmed understanding of plan. Return precautions explained. Impression: 1. Chronic epigastric abdominal pain with known PUD 2. Hyponatremia, resolved Lab Data Labs: Laboratory Results - last 24 hr 11/01/24 11/01/24 15:33 18:46 WBC 13.6 H RBC 4.56 L Hgb 13.1 Hct 38.0 L MCV 83.3 MCH 28.7 MCHC 34.5 RDW Std Deviation 38.5 RDW Coeff of Klaus 12.7 Plt Count 263 MPV 9.6 Immature Gran % (Auto) 0.500 Neut % (Auto) 69.0 Lymph % (Auto) 22.2 Craig % (Auto) 6.0 Eos % (Auto) 1.6 Baso % (Auto) 0.7 Absolute Neuts (auto) 9.4 H Absolute Lymphs (auto) 3.02 Nucleated RBC % 0 Sodium 127 L 133 Potassium 3.9 3.6 Chloride 93 L 100 Carbon Dioxide 22.1 22.1 Anion Gap 12 10 BUN 5 5 Creatinine 0.77 0.68 L Estim Creat Clear Calc 143.71 162.73 Est GFR (MDRD) Non-Af 121 126 BUN/Creatinine Ratio 7.1 L 6.8 L Glucose 94 96 Calcium 9.0 8.5 Total Bilirubin 0.20 AST 20 ALT 24 Alkaline Phosphatase 82 Total Protein 6.5 Albumin 4.3 Globulin 2.2 Albumin/Globulin Ratio 1.9 Lipase 46 Radiography Diagnostic Testing: Clinical Impression(s) from Imaging Studies Abdomen/Pelvis CT 11/01/24 15:26 IMPRESSION: No hydronephrosis however there is mild hydroureter with distended urinary bladder where reflux is not excluded. Minimal thickening of the rectal wall where proctitis is not excluded. Colonic diverticulosis without acute diverticulitis. No bowel obstruction. Reading Location: [facility] Chest X-Ray 11/01/24 15:50 IMPRESSION: No evidence of pneumoperitoneum. No pleural effusion or pneumothorax is seen. Lungs appear clear throughout. The cardiomediastinal silhouette is within the normal range. 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 Reading Location: [id number] Discharge Plan Triage Chief Complaint: Other, Pain/Inj ED Provider: Aidan Hickey Dx/Rx/DC Orders Clinical Impression: Chronic epigastric pain, Hyponatremia Instructions: ED Hyponatremia, ED Gastritis Ulcer No Abx Prescriptions: No Action prazosin 1 mg capsule 1 mg PO QHS buspirone 10 mg tablet 10 mg PO TID Invega Sustenna 156 mg/mL syringe 156 mg IM Q30D famotidine 40 mg tablet 40 mg PO QHS PRN (Reason: GERD) ProAir RespiClick 90 mcg/actuation aerosol powdr breath activated 2 inh inhalation Q6H PRN (Reason: shortness of breath or wheezing) Qty: 1 0RF hydroxyzine HCl 50 mg tablet 50 mg PO DAILY PRN (Reason: sleep) clonidine HCl 0.2 mg tablet 0.2 mg PO TID benztropine 1 mg tablet 1 mg PO DAILY esomeprazole magnesium 40 mg capsule,delayed release(DR/EC) 40 mg PO BID Qty: 60 3RF dicyclomine 20 mg tablet 20 mg PO BID PRN (Reason: abdominal pain) Qty: 30 0RF sucralfate [Carafate] 100 mg/mL suspension 10 ml PO BID Qty: 300 3RF Primary Care Provider: Waylon Dye Referrals: Waylon Dye MD [Primary Care Provider] - 3-5 Days Vishnu Herndon DO [Med Staff - Active Staff] - 3-5 Days Activity Restrictions/Additional Instructions: Your sodium was low here in the emergency department however it improved with fluids. You need to follow-up with your primary care for this. You need to follow-up with GI for your chronic epigastric abdominal pain. Continue to take the medicines that were prescribed by Dr. Herndon. Print Language: Kazakh Disposition Disposition: Home, Self Care
[2024-11-01] MEDS: Lorazepam 2 MG/ML WCH Syringe 0.5 MG IV (15:42)
[2024-11-01 15:49] LABS: Hematocrit 38.0 % (40-54); Hemoglobin 13.1 g/dL (13.0-16.5); Immature Granulocytes Count 0.070 X10^3/uL (0.0-0.0); Mean Corp Hgb Conc 34.5 g/dL (32-36); Mean Corpuscular Volume 83.3 fL (80-94); Mean Platelet Vol. 9.6 fl (6.2-12.0); NRBC Flagged by Analyzer 0 % (0-5); Platelet Count 263 K/mm3 (150-450); RBC Distribution Width CV 12.7 % (11.6-14.6); RBC Distribution Width SD 38.5 fl (35.1-43.9); Red Blood Count 4.56 M/mm3 (4.6-6.2); White Blood Count 13.6 K/mm3 (4.4-11.0)
--- NOTE | 2024-11-01 15:50 | RAD_ITS ---
PROCEDURE: CHEST 1 VIEW (PORTABLE) 11/01/2024 REASON FOR EXAM: EPIGASTRIC ABDOMINAL PAIN TECHNIQUE: Frontal view of the chest. COMPARISON: Chest x-ray of 10/19/2024. RAD/Chest 1 View (Portable) IMPRESSION: No evidence of pneumoperitoneum. No pleural effusion or pneumothorax is seen. Lungs appear clear throughout. The cardiomediastinal silhouette is within the normal range. 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 Reading Location: [address]
[2024-11-01 16:34] LABS: AST(SGOT) 20 U/L (<=37); Alanine Aminotransfer ALT/SGPT 24 U/L (<=46); Albumin, Serum 4.3 g/dL (3.5-5.0); Alkaline Phosphatase 82 U/L (40-129); Anion Gap 12 (5-15); BUN 5 mg/dL (4-19); BUN/Creat Ratio 7.1 RATIO (10-20); Calcium,Total 9.0 mg/dL (7.6-11.0); Carbon Dioxide 22.1 mmol/L (21.0-32.0); Chloride 93 mmol/L (98-108); Estimated Creatinine Clearance 143.71 ml/min (50-250); Globulin 2.2 g/dL (2.2-4.2); Glucose 94 mg/dL (70-99); Lipase 46 U/L (13-75); Potassium 3.9 mmol/L (3.3-5.1)
[2024-11-01] MEDS: 0.9% Normal Saline (1000mL) 1,000 ML 1000 ML IV (17:33)
--- NOTE | 2024-11-01 18:03 | ED.RN ---
Pt called out and asked for a breathing treatment due feeling SOB. Pt O2 checked and was at 98%. No distress noted.
[2024-11-01 19:00] VITALS: BP 108/45; PULSE 63; RESP 18; O2SAT 100
[2024-11-01 19:30] LABS: Anion Gap 10 (5-15); BUN 5 mg/dL (4-19); BUN/Creat Ratio 6.8 RATIO (10-20); Calcium,Total 8.5 mg/dL (7.6-11.0); Carbon Dioxide 22.1 mmol/L (21.0-32.0); Chloride 100 mmol/L (98-108); Estimated Creatinine Clearance 162.73 ml/min (50-250); Glucose 96 mg/dL (70-99); Potassium 3.6 mmol/L (3.3-5.1)
[2024-11-01 19:48] VITALS: BP 117/66; PULSE 65; RESP 16; TEMP 36.8; O2SAT 98
== END 2024-11-01 19:49 | disposition home or self-care (01) ==
PROVIDERS: Emergency Provider Surgery; PCP Family Medicine; Visit Provider Surgery
DX: K25.7 Chronic gastric ulcer without hemorrhage or perforation (principal); E87.1 Hypo-osmolality and hyponatremia; G89.29 Other chronic pain; F17.210 Nicotine dependence, cigarettes, uncomplicated
CPT/HCPCS: 71045; 74177; 80048; 80053; 83690; 85025; 96361; 96374; 96375; 99283; Q9967; A4216

== ENCOUNTER 2024-11-12 09:26 | Emergency (ER) | payer MEDICAID, SELFPAY ==
[2024-11-12 09:26] VITALS: BP 130/86; PULSE 113; RESP 18; TEMP 36.6; O2SAT 100; BMI 28.3
--- OUTSIDE RECORDS SUMMARY | 2024-11-12 10:08 | XMS RPT_ITS | CCD ---
Author Organization 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 Laine Bernabe Primary Care Provider Dr. Peng Olivas Attending Provider [phone] Gricel Talley Referring Provider Rupa Sandoval Unavailable Laine Dye Primary Care Provider Laine Dye MD Primary Care Provider Unavailable Primary Care Provider UnavailWES Galvan Attending Unavailable WES JACKSON Referring Unavailable Laine Dye MD Primary Care Provider LAINE DYE Primary Care Unavailabl MARLENA Catalan Attending Unavailable LAINE DYE Primary Care Unavailabl Laine Knox Primary Care Provider [phone] Sylvester Ramirez Emergency Provider provider (Unknown), Unlisted Primary Care Provid er Unavailable LAINE DYE Primary Care UnavailWES Campoverde Attending Unavailable LAINE DYE Primary Care Unavailabl MIRANDA Menendez Attending Unavailable LAINE DYE Primary Care Unavailabl e Omkar Del Cid Emergency Provider Sylvester Ramirez Attending Unavailable provider (Unknown), Unlisted Primary Care Nichole vailable provider (Unknown), Unlisted Primary Care Nichole vailable Omkar Del Cid Attending Unavailable LAINE DYE Primary Care Unavailkarin Lantigua MD, Donald Lopez Primary Care Provider Hardik STEWART, Dr. Connors Primary Care Provider Gerri DELGADILLO, Dr. Monsalve Emergency Provider [phone] Gerri DELGADILLO, Dr. Monsalve Attending Provider [phone] Edelmira DELGADILLO, Dr. Bermudez Emergency Provider Edelmira DELGADILLO, Dr. Bermudez Attending Provider Hardik STEWART, Dr. Connors Referring Provider Yoselyn Zhu Attending Provider Yoselyn Zhu Referring Provider Dr. Lester Aguilar DO Emergency Provider Dr. Vishnu Herndon DO Attending Provider Dr. Vishnu Herndon DO Other Provider Dr. Lester Aguilar DO Attending Provider Hardik STEWART, Dr. Connors Primary Care Provider [phone] Hardik, Laine Primary Care Unavailable Gricel Talley Attending Unavailable Nicholasusty-Aidan Vega Attending Unavailabl e Hardik, Laine Primary Care Unavailable Hardik, Laine Referring Unavailable Hardik, Laine Primary Care Unavailable Yoselyn Ceja Attending Unavailable Yoselyn Ceja Referring Unavailable Hardik, Laine Primary Care Unavailable Yoselyn Ceja Attending Unavailable Lester Aguilar Attending Unavailable Hardik, Laine Primary Care Unavailable Hardik, Laine Primary Care Unavailable Klusty-GaryAidan roman Attending Unavailabl e Hardik, Laine Referring Unavailable Hardik, Laine Primary Care Unavailable Vishnu Herndon Attending Unavailable Ungur, Remus Attending Unavailable Ungur, Remus Referring Unavailable Hardik, Laine Primary Care Unavailable Hardik, Laine Primary Care Unavailable Yoselyn Ceja Attending Unavailable Laine Dye Referring Unavailable Laine Dye Referring Unavailable Laine Dye Primary Care Unavailable FriendVishnu Consulting Unavailable Friend, Vishnu Attending Unavailable Allergies Allergy Classification Reported Allergen(s) Allergy Type Date of Onset Reaction(s) Facility (3 sources) Cat Allergy to substance [facility] (20 sources) Ondansetron Drug Allergy 09-01-2021 Other [facility] Comment on above: headaches (4 sources) Cat Hair Extract Drug Allergy 11-11-2022 [facility] (5 sources) Cat Dander Allergy to substance 11-11-2022 [facility] Mobile Location, IP (1 source) Ondansetron Drug Allergy 11-01-2024 [facility] Repository Medications Current Medications Medication Drug Class(es) Dates Sig (Normalized) Sig (Original) acetaminophen 500 mg oral tablet (12 sources) Start: 02-12-2022 Acetaminophen Extra Strength 500 MG tablet TAKE 2 TABLETS BY MOUTH EVERY 6 TO 8 HOURS NEEDED FOR PAIN 02/12/2022 Active 200 actuat albuterol 0.09 mg/actuat dry powder inhaler (20 sources) beta2-Adrenergic Agonist Start: 10-19-2024 take 90 ug by inhalation every six hours as needed Albuterol Sulfate (Proair Respiclick) 90 mcg/actuation aerosol powdr breath activated Active 2 NMA INHALATION EVERY 6 HOURS as needed for shortness of breath or wheezing 1 0 October 19, 2024 12:00am Start: 11-14-2022 End: 11-07-2024 take 2 puff(s) by inhalation every six hours as needed albuterol 108 (90 Base) MCG/ACT inhaler Indications: Moderate persistent asthma, unspecified whether complicated Inhale 2 puffs every 6 hours as needed for shortness of breath. 18 g 3 11/07/2024 Active Start: 03-05-2022 take 2 puff(s) by in halation every six hours as needed albuterol 108 (90 Base) MCG/ACT inhaler Inhale 2 puffs every 6 hours as needed for shortness of breath. 18 g 3 03/05/2022 Active Start: 01-19-2020 End: 01-04-2023 Albuterol Sulfate 90 mcg/act uation aerosol powdr breath activated Discontinued 2 NMA INHALATION EVERY 6 HOURS as needed for shortness of breath or wheezing 1 February 20, 2021 2:44pm January 04, 2023 3:50pm Start: 01-19-2020 End: 01-04-2023 Albuterol Sulfate Discontinu ed 2 INH INHALATION EVERY 6 HOURS 1 February 20, 2021 1:44pm January 04, 2023 2:50pm Start: 06-27-2019 take 2 puff(s) by in halation every six hours as needed for wheezing albuterol HFA (VENTOLIN HFA) 90 mcg/actuation inhaler Inhale 2 Puffs as instructed every 6 hours as needed for Wheezing/Shortness of Breath. 1 Inhaler 2 06/27/2019 Active Comment on above: Inhale 2 Puffs as in structed every 6 hours as needed for Wheezing/Shortness of Breath. albuterol MDI (90 mcg/inh) CFC free inhalation aerosol (3 sources) Start: 019 take 2 puff(s) by inhalation four times daily as needed for wheezing albuterol MDI (90 mcg/inh) CFC free inhalation aerosol 2 puff(s), Inhalation, QID, PRN as needed for wheezing, # 1 EA, 0 Refill(s), Anxiety Bronchitis Start Date: 04/25/19 Status: Ordered atomoxetine 18 mg oral capsule (3 sources) Norepinephrine Reuptake Inhibitor Start: 021 take 1 capsule by mouth in the morning atomoxetine (Strattera) 18 MG capsule Take 18 mg by mouth in the morning and 18 mg before bedtime. 0 03/07/2021 Active benztropine mesylate 1 mg oral tablet (4 sources) Anticholinergic, Antihistamine Start: 025 take 1 tablet by mouth once daily Benztropine 1 mg tablet Active 1 mg PO DAILY October 19, 2024 12:00am BuPROPion (Eqv-Wellbutrin SR) 150 mg/12 hours oral tablet, extended release (3 sources) Start: 020 BuPROPion (Eqv-Wellbutrin SR) 150 mg/12 hours oral tablet, extended release Dose : 150 mg = 1 tab(s), Oral, BID Start Date: 11/29/19 Status: Ordered busPIRone hydrochloride 10 mg oral tablet (20 sources) Start: 025 take 1 tablet by mouth three times daily Buspirone 10 mg tablet Active 10 mg PO THREE TIMES A DAY July 11, 2024 12:00am Start: 11-30-2023 take 1 tablet by brittany th three times daily Buspirone (Buspar) 10 MG Tab Active 10 MG PO THREE TIMES A DAY [id number] November 30, 2023 12:00am Start: 07-02-2023 End: 07-11-2024 take 1 tablet by mouth twice daily Buspirone 7.5 mg tablet Discontinued 7.5 mg PO TWICE A DAY July 02, 2023 1:00am July 11, 2024 11:00am Start: 02-05-2022 busPIRone (Bus par) 10 MG tablet Take 10 mg by mouth in the morning and 10 mg at noon and 10 mg before bedtime. 0 02/05/2022 Active Start: 11-07-2021 take 1 tablet by brittany th three times daily busPIRone (Buspar) 7.5 MG tablet Take 7.5 mg by mouth 3 times daily. 0 11/07/2021 Active cloNIDine hydrochloride 0.2 mg oral tablet (20 sources) Central alpha-2 Adrenergic Agonist Start: 10-19-2024 take 1 tablet by mouth three times daily Clonidine Hcl 0.2 mg tablet Active 0.2 mg PO THREE TIMES A DAY October 19, 2024 12:00am Start: 07-11-2024 End: 10-20-2024 take 1 tablet by mouth three times daily Clonidine Hcl 0.1 mg tablet Discontinued 0.1 mg PO THREE TIMES A DAY July 11, 2024 12:00am October 20, 2024 9:52am Start: 09-17-2022 take 0.2 mg by mouth twice daily Clonidine Hcl Active 0.2 MG PO TWICE A DAY September 16, 2022 11:00pm Start: 04-21-2022 End: 02-05-2024 take 1 tablet by mouth once daily Clonidine Hcl 0.2 mg Tablet Discontinued 0.2 mg PO DAILY September 17, 2022 12:00am February 05, 2024 1:34pm Comment on above: Take 1 Tablet By Ora l Route 1 time per day dicyclomine hydrochloride 20 mg oral tablet (5 sources) Anticholinergic Start: 10-18-19 End: 11-05-19 take 1 tablet by mouth twice daily as needed for pain Dicyclomine 20 mg tablet Active 20 mg PO TWICE A DAY as needed for abdominal pain 30 November 04, 2024 7:59am esomeprazole 40 mg delayed release oral capsule (20 sources) Proton Pump Inhibitor Start: 09-16-19 End: 11-05-19 take 1 capsule by mouth twice daily Esomeprazole Magnesium 40 mg capsule,delayed release(DR/EC) Active 40 mg PO TWICE A DAY 60 November 04, 2024 8:00am Start: 07-11-2024 End: 08-18-2024 take 1 capsule by mouth once daily Esomeprazole Magnesium (Nexium) 40 mg capsule,delayed release(DR/EC) Discontinued 40 mg PO DAILY 30 0 July 11, 2024 12:00am August 18, 2024 4:09pm Start: 09-23-2022 End: 08-18-2024 take 1 capsule by mouth twice daily Esomeprazole Magnesium 20 mg capsule,delayed release(DR/EC) Discontinued 20 mg PO TWICE A DAY July 11, 2024 12:00am August 18, 2024 4:09pm Start: 05-02-2022 take 1 capsule by mo [facility] twice daily esomeprazole (NexIUM) [address] capsule Take 1 capsule (20 mg) by mouth 2 times daily. 60 capsule 2 05/02/2022 Active Start: 05-17-2021 End: 01-04-2023 take 1 capsule by mouth twice daily Esomeprazole Magnesium 40 mg capsule,delayed release(DR/EC) Discontinued 0 .ROUTE .COMPLEX 60 0 March 06, 2022 10:21am January 04, 2023 3:50pm TAKE 1 CAPSULE BY MOUTH TWICE DAILY famotidine 40 mg oral tablet (20 sources) Histamine-2 Receptor Antagonist Start: 10-17-2024 End: 10-20-2024 take 1 tablet by mouth at bedtime as needed for gastroesophageal reflux disease Famotidine 40 mg tablet Active 40 mg PO AT BEDTIME as needed for GERD October 20, 2024 12:00am Start: 08-24-2024 End: 10-17-2024 take 1 tablet by mouth once daily Famotidine 10 mg tablet Discontinued 10 mg PO daily 30 August 24, 2024 12:00am October 17, 2024 1:52pm Start: 03-22-2021 take 1 tablet by brittany twice daily as needed famotidine (Pepcid) 20 MG tablet Take 20 mg by mouth 2 times daily as needed. 03/22/2021 Active FLUoxetine 20 mg oral capsule (3 sources) Serotonin Reuptake Inhibitor take 1 capsule by mouth in the morning FLUoxetine (PROzac) 20 MG capsule Take 20 mg by mouth in the morning. 0 Active gabapentin 100 mg oral capsule (3 sources) Anti-epileptic Agent Start: 07-19-19 take 2 capsules by mouth three times daily gabapentin (Neurontin) 100 MG capsule Take 2 capsules by mouth 3 times daily for 30 days. 0 07/18/2021 Active hydrOXYzine hydrochloride 50 mg oral tablet (20 sources) Antihistamine Start: 10-20-19 take 1 tablet by mouth once daily as needed for sleep Hydroxyzine Hcl 50 mg tablet Active 50 mg PO DAILY as needed for sleep October 19, 2024 12:00am Start: 02-05-2024 End: 10-19-2024 take 1 capsule by mouth twice daily Hydroxyzine Pamoate 25 mg capsule Discontinued 25 mg PO TWICE A DAY February 05, 2024 12:00am October 19, 2024 4:57pm Start: 11-30-2023 take 50 mg by mouth twice melchor y Hydroxyzine Hcl Active 50 MG PO TWICE A DAY November 30, 2023 12:00am Start: 03-25-2021 take 1 capsule by mo [facility] every twenty-four hours as needed hydrOXYzine pamoate (Vistaril) 50 MG capsule Take 50 mg by mouth Daily as needed. 03/25/2021 Active Start: 11-29-2019 hydrOXYzine hy drochloride 25 mg oral tablet Dose : 25 mg = 1 tab(s), Oral, TID, PRN as needed for anxiety Start Date: 11/29/19 Status: Ordered lidocaine hydrochloride 20 mg/ml mucous membrane topical solution (9 sources) Antiarrhythmic, Amide Local Anesthetic Start: 10-18-2021 lidocaine (Xylocaine) 2 % solution apply to mucous membrane THREE TIMES DAILY NEEDED FOR PAIN 0 10/18/2021 Active lidocaine viscou s (XYLOCAINE) 2 % solution Take 5 mL by mouth as needed. Active Comment on above: Take 5 mL by mouth a s needed. loratadine 10 mg oral tablet (13 sources) Start: take 1 tablet by mouth once daily loratadine (CLARITIN) 10 mg tablet Take 1 tablet by mouth once daily. 90 tablet 3 06/09/2019 Active Comment on above: Take 1 tablet by brittany once daily. meloxicam 7.5 mg oral tablet (3 sources) Nonsteroidal Anti-inflammatory Drug Start: meloxicam 7.5 mg oral tablet Dose : 7.5 mg = 1 tab(s), Oral, BID, PRN Pain, breakthrough Start Date: 11/29/19 Status: Ordered metoclopramide 10 mg oral tablet (3 sources) Dopamine-2 Receptor Antagonist Start: 022 take 1 tablet by mouth every six hours as needed for nausea and vomiting metoclopramide (Reglan) 10 MG tablet TAKE 1 TABLET BY MOUTH EVERY 6 HOURS NEEDED FOR NAUSEA and FOR VOMITING 0 09/06/2021 Active nicotine 4 mg chewing gum (20 sources) Cholinergic Nicotinic Agonist Start: 025 nicotine polacrilex (Nicorette) 4 MG gum Chew one piece of gum every 1-2 hours as needed. Chew the gum until the nicotine taste appears, then park the gum against the buccal mucosa until the taste disappears, then chew a few more times to release more nicotine. Repeat this for 30 minutes, then discard the gum. Do not exceed more than 24 pieces in a 24 hour period. 100 each 2 09/05/2024 Active Start: 07-20-2024 End: 08-19-2024 nicotine (Nicoderm CQ) 7 MG/ 24HR patch Place 1 patch on the skin Every 24 hours. 30 patch 07/20/2024 08/19/2024 Active Start: 07-11-2024 End: 10-19-2024 apply 1 dose topically every twenty-four hours Nicotine 14 mg/24 hr patch 24 hour Discontinued 1 NMA TOPICAL DAILY July 11, 2024 12:00am October 19, 2024 4:57pm Start: 07-04-2024 End: 08-03-2024 apply 1 dose transdermal route every twenty-four hours nicotine (Nicoderm CQ) 14 MG/24HR patch Indications: Tobacco use Place 1 patch on the skin Every 24 hours. 30 patch 07/04/2024 08/03/2024 Active Start: 06-13-2024 End: 07-04-2024 apply 1 dose transdermal route every twenty-four hours nicotine (Nicoderm CQ) 21 MG/24HR patch Indications: Tobacco use Place 1 patch on the skin Every 24 hours. 30 patch 06/13/2024 07/04/2024 Discontinued Start: 08-11-2023 apply 1 dose transde rmal route once daily 1 patch, transdermal, Administer over 24 Hours, Daily, First dose on Thu08/11/23 at 0900 Start: 08-11-2023 End: 08-12-2023 Starting on Thu08/11/23 at 0 535, For 1 dose, Created by cabinet override Start: 07-08-2022 nicotine (Miky derm, Step 2) 14 MG/24HR patch Place 1 patch on the skin Every 24 hours. 14 patch 0 07/08/2022 Active Start: 03-14-2021 apply 1 dose transde rmal route once daily nicotine (NICODERM) 21 mg/24 hr Apply 1 Patch by transdermal route 1 time per day 03/14/2021 Active Start: 11-29-2019 apply 1 dose transde rmal route once daily nicotine 7mg / 24hrs transdermal patch Dose = 1 patch(es), Transdermal, qDay, # 14 patch(es), 0 Refill(s) Start Date: 11/29/19 Status: Ordered Comment on above: Apply 1 Patch by tra nsdermal route 1 time per day OLANZapine 10 mg oral tablet (3 sources) Atypical Antipsychotic Start: take 1 tablet by mouth once daily OLANZapine (ZyPREXA) 10 MG tablet Take 1 tablet by mouth Nightly. 0 04/04/2021 Active omeprazole 40 mg delayed release oral capsule (2 sources) Proton Pump Inhibitor Start: End: take 1 capsule by mouth twice daily omeprazole (PriLOSEC) [address] capsule Take 1 capsule (40 mg) by mouth 2 times daily. 60 capsule 3 04/29/2022 Active oxygen (O2) therapy (1 source) Start: inhalation, Continuous, Starting on Thu08/10/23 at 2240, Apply when safe., Device: Nasal Cannula, Rate in liters per minute: 2 LPM, Keep O2 Sat Above: 92% 1 ml paliperidone palmitate 156 mg/ml prefilled syringe (15 sources) Atypical Antipsychotic Start: 025 inject 156 mg by intramuscular injection every 30 days Paliperidone Palmitate (Invega Sustenna) 156 mg/mL syringe Active 156 mg IM Q30D October 20, 2024 12:00am Start: 02-05-2024 End: 10-20-2024 take 1 tablet by mouth every twenty-four hours at bedtime Paliperidone 6 mg tablet extended release 24hr Discontinued 6 mg PO AT BEDTIME February 05, 2024 12:00am October 20, 2024 9:54am Start: 02-05-2024 End: 07-11-2024 take 1 tablet by mouth once daily Paliperidone (Invega ) 6 mg tablet extended release 24hr Discontinued 6 mg PO DAILY 7 0 February 05, 2024 12:00am July 11, 2024 11:00am prazosin 1 mg oral capsule (6 sources) alpha-Adrenergic Kaz Start: 07-11-2024 take 1 capsule by mouth at bedtime Prazosin 1 mg capsule Active 1 mg PO AT BEDTIME July 11, 2024 12:00am promethazine hydrochloride 25 mg oral tablet (4 sources) Phenothiazine Start: 09-01-2021 take 1 tablet by mouth three times daily as needed promethazine (Phenergan) 25 MG tablet TAKE 1 TABLET BY MOUTH THREE TIMES DAILY NEEDED for FOR ALLERGY symptoms 0 09/02/2021 Active risperiDONE 1 mg oral tablet (3 sources) Atypical Antipsychotic Start: 05-10-2021 take 1 tablet by mouth in the morning risperiDONE (RisperDAL) 1 MG tablet Take 1 mg by mouth in the morning and 1 mg before bedtime. 0 05/10/2021 Active sodium fluoride 0.011 mg/mg toothpaste (12 sources) Start: 02-12-2022 SF 5000 Plus 1.1 % cream BRUSH TEETH MORNING & NIGHT, THEN SPIT, DO NOT RINSE. DO NOT EAT OR DRINK FOR 30 MINUTES. 02/12/2022 Active sucralfate 100 mg/ml oral suspension (20 sources) Aluminum Complex Start: 10-21-2024 End: 11-09-2024 take 1 mL by mouth twice daily Sucralfate (Carafate) 100 mg/mL suspension Active 10 mL PO TWICE A DAY 300 3 November 09, 2024 4:14pm Start: 05-24-2021 take 10 mL by mouth twice melchor y Carafate 1 GM/10ML suspension take 10ml BY MOUTH TWICE DAILY 0 05/24/2021 Active Start: 04-03-2021 End: 05-03-2021 take 1 mL by mouth every six hours Sucralfate (Carafate) 100 mg/mL suspension Discontinued 10 mL PO EVERY 6 HOURS 1000 0 April 03, 2021 1:00am May 03, 2021 1:49pm Start: 01-22-2020 End: 10-05-2020 take 1 tablet by mouth four times daily Sucralfate 1 GM tablet Discontinued 1 g PO 4 TIMES DAILY 56 0 January 22, 2020 12:00am October 05, 2020 10:55am Symbicort 160 mcg-4.5 mcg/inh Inhaler (3 sources) Start: 11-29-2019 take 1 dose by inhalation twice daily Symbicort 160 mcg-4.5 mcg/inh Inhaler Dose = 2 puff(s), Inhalation, BID, # 10.2 gram(s), 0 Refill(s) Start Date: 11/29/19 Status: Ordered ziprasidone 20 mg oral capsule (8 sources) Atypical Antipsychotic Start: 03-14-2021 take 1 capsule by mouth once daily at mealtime ziprasidone (Geodon) 20 MG capsule Take 1 Capsule By Oral Route 1 times per day with food 0 03/14/2021 Active Start: 01-23-2020 End: 04-08-2021 take 1 capsule by mouth twice daily at mealtime ziprasidone (GEODON) 20 mg capsule Take 1 capsule by mouth twice daily with meals. 01/23/2020 04/08/2021 Discontinued (Other) Start: 11-29-2019 End: 04-08-2021 take 1 capsule by mouth once daily at bedtime ziprasidone (GEODON) 40 mg capsule Take 1 capsule by mouth daily at bedtime. 01/23/2020 04/08/2021 Discontinued (Other) Completed/Discontinued Medications Medication Drug Class(es) Dates Sig (Normalized) Sig (Original) Budesonide-Formote rol [Budesonide-Formot jake Hfa 80 Mcg-4.5 Mcg/Actuation Aerosol Inhaler] (20 sources) Corticosteroid, beta2-Adrenergic Agonist Start: 01-04-2023 End: 07-02-2023 Budesonide-Formotero l [Budesonide-Formoter ol Hfa 80 Mcg-4.5 Mcg/Actuation Aerosol Inhaler] (Budesonide-Formoter ol Hfa 80 Mcg-4.5 Mcg/Actuation ) 80-4.5 mcg/actuation HFA aerosol inhaler Discontinued INHALATION January 04, 2023 12:00am July 02, 2023 7:06am Start: 01-04-2023 End: 07-02-2023 Budesonide-Formoterol [Budesonide-Formoterol Hfa 80 Mcg-4.5 Mcg/Actuation Aerosol Inhaler] (Budesonide-Formoterol Hfa 80 Mcg-4.5 Mcg/Actuation ) 80-4.5 mcg/actuation HFA aerosol inhaler Discontinued INHALATION January 03, 2023 11:00pm July 02, 2023 6:06am Start: 01-04-2023 Budesonide-For moterol [Budesonide-Formoterol Hfa 80 Mcg-4.5 Mcg/Actuation Aerosol Inhaler] (Budesonide-Formoterol Hfa 80 Mcg-4.5 Mcg/Actuation ) 80-4.5 mcg/actuation HFA aerosol inhaler Active INHALATION January 03, 2023 11:00pm Start: 01-04-2023 Budesonide-For moterol [Budesonide-Formoterol Hfa 80 Mcg-4.5 Mcg/Actuation Aerosol Inhaler] (Budesonide-Formoterol Hfa 80 Mcg-4.5 Mcg/Actuation ) 80-4.5 mcg/actuation HFA aerosol inhaler Active INHALATION January 04, 2023 12:00am Start: 05-19-2022 End: 08-04-2023 take 2 puff(s) by inhalation in the morning budesonide-formoterol (Symbicort) 80-4.5 MCG/ACT inhaler Inhale 2 puffs in the morning and 2 puffs in the evening. 1 each 3 08/04/2022 Active Start: 02-20-2021 Budesonide-For moterol (Symbicort) 160-4.5 mcg/actuation HFA aerosol inhaler Active 2 INH INHALATION TWICE A DAY 10.2 February 20, 2021 2:44pm Start: 03-01-2020 budesonide-for moterol (SYMBICORT) 160-4.5 mcg/actuation inhaler TWICE A DAY 03/01/2020 Active Start: 03-01-2020 budesonide-for moterol (SYMBICORT) 160-4.5 mcg/actuation inhaler TWICE A DAY 0 03/01/2020 Active Start: 03-01-2020 End: 05-19-2022 take 2 puff(s) by inhalation in the morning budesonide-formoterol (Symbicort) 160-4.5 MCG/ACT inhaler Inhale 2 puffs in the morning. 0 03/01/2020 05/19/2022 Discontinued (Reorder) Start: 03-01-2020 End: 02-20-2021 Budesonide-Formoterol (Symbi kaz) 160-4.5 mcg/actuation HFA aerosol inhaler Discontinued 2 NMA INHALATION TWICE A DAY 10.2 3 September 06, 2020 11:35am October 05, 2020 11:10am Start: 03-01-2020 End: 02-20-2021 take 1 puff(s) by inhalation twice daily Budesonide-Formoterol (Symbicort) 160-4.5 mcg/actuation HFA aerosol inhaler Discontinued 2 PUFF INHALATION TWICE A DAY 10.2 September 06, 2020 10:35am October 05, 2020 10:10am Start: 02-29-2020 End: 03-01-2020 take 1 puff(s) by mouth twice daily Budesonide-Formoterol (Symbicort) 160-4.5 mcg/actuation HFA aerosol inhaler Discontinued 2 PUFF INHALATION TWICE A DAY 1 February 29, 2020 3:56pm March 01, 2020 10:54am administer with spacer, rinse mouth after each use Start: 02-29-2020 End: 03-01-2020 Budesonide-Formoterol (Symbi kaz) 160-4.5 mcg/actuation HFA aerosol inhaler Discontinued 2 NMA INHALATION TWICE A DAY 1 3 February 29, 2020 1:00am March 01, 2020 10:54am administer with spacer, rinse mouth after each use Start: 02-29-2020 End: 03-01-2020 Budesonide-Formoterol (Symbi kaz) 160-4.5 mcg/actuation HFA aerosol inhaler Discontinued 2 NMA INHALATION TWICE A DAY February 29, 2020 1:00am March 01, 2020 10:54am administer with spacer, rinse mouth after each use Start: 02-29-2020 End: 03-01-2020 take 1 puff(s) by mouth twice daily Budesonide-Formoterol (Symbicort) 160-4.5 mcg/actuation HFA aerosol inhaler Discontinued 2 PUFF INHALATION TWICE A DAY February 29, 2020 12:00am March 01, 2020 9:54am administer with spacer, rinse mouth after each use Start: 02-29-2020 End: 03-01-2020 take 1 puff(s) by mouth twice daily Budesonide-Formoterol (Symbicort) 160-4.5 mcg/actuation HFA aerosol inhaler Discontinued 2 PUFF INHALATION TWICE A DAY February 29, 2020 1:00am March 01, 2020 10:54am administer with spacer, rinse mouth after each use Start: 02-16-2020 End: 02-29-2020 take 1 puff(s) by inhalation twice daily Budesonide-Formoterol (Symbicort) 80-4.5 mcg/actuation HFA aerosol inhaler Discontinued 2 PUFF INHALATION TWICE A DAY 10.2 February 16, 2020 10:40am February 29, 2020 3:56pm Start: 02-16-2020 End: 02-29-2020 Budesonide-Formoterol (Symbi kaz) 80-4.5 mcg/actuation HFA aerosol inhaler Discontinued 2 NMA INHALATION TWICE A DAY 10.2 6 February 16, 2020 12:00am February 29, 2020 3:56pm Start: 02-16-2020 End: 02-29-2020 Budesonide-Formoterol (Symbi kaz) 80-4.5 mcg/actuation HFA aerosol inhaler Discontinued 2 NMA INHALATION TWICE A DAY 10.2 February 16, 2020 12:00am February 29, 2020 3:56pm Start: 02-16-2020 End: 02-29-2020 take 1 puff(s) by inhalation twice daily Budesonide-Formoterol (Symbicort) 80-4.5 mcg/actuation HFA aerosol inhaler Discontinued 2 PUFF INHALATION TWICE A DAY 10.2 February 15, 2020 11:00pm February 29, 2020 2:56pm Start: 02-16-2020 End: 02-29-2020 take 1 puff(s) by inhalation twice daily Budesonide-Formoterol (Symbicort) 80-4.5 mcg/actuation HFA aerosol inhaler Discontinued 2 PUFF INHALATION TWICE A DAY 10.2 February 16, 2020 12:00am February 29, 2020 3:56pm Start: 01-19-2020 End: 02-16-2020 Budesonide-Formoterol 160-4. 5 mcg/actuation HFA aerosol inhaler Discontinued 2 NMA INHALATION TWICE A DAY 10.2 3 January 19, 2020 1:33pm February 16, 2020 10:40am Start: 01-19-2020 End: 02-16-2020 Budesonide-Formoterol 160-4. 5 mcg/actuation HFA aerosol inhaler Discontinued 2 NMA INHALATION TWICE A DAY 10.2 January 19, 2020 1:33pm February 16, 2020 10:40am Start: 01-19-2020 End: 02-16-2020 Budesonide-Formoterol Discon tinued 2 INH INHALATION TWICE A DAY 10.2 January 19, 2020 12:33pm February 16, 2020 9:40am Start: 01-19-2020 End: 02-16-2020 Budesonide-Formoterol Discon tinued 2 INH INHALATION TWICE A DAY 10.2 January 19, 2020 1:33pm February 16, 2020 10:40am Start: 01-19-2020 End: 01-19-2020 Budesonide-Formoterol 160-4. 5 mcg/actuation HFA aerosol inhaler Discontinued 2 NMA INHALATION TWICE A DAY 10.2 3 January 19, 2020 11:42am January 19, 2020 1:33pm Start: 01-19-2020 End: 01-19-2020 Budesonide-Formoterol Discon tinued 2 INH INHALATION TWICE A DAY 10.2 January 19, 2020 10:42am January 19, 2020 12:33pm Start: 01-19-2020 End: 01-19-2020 Budesonide-Formoterol 160-4. 5 mcg/actuation HFA aerosol inhaler Discontinued 2 NMA INHALATION TWICE A DAY January 19, 2020 11:40am January 19, 2020 11:42am Start: 01-19-2020 End: 01-19-2020 Budesonide-Formoterol Discon tinued 2 INH INHALATION TWICE A DAY January 19, 2020 10:40am January 19, 2020 10:42am Start: 01-19-2020 End: 01-19-2020 Budesonide-Formoterol Discon tinued 2 INH INHALATION TWICE A DAY January 19, 2020 11:40am January 19, 2020 11:42am Start: 11-07-2019 End: 01-19-2020 Budesonide-Formoterol 6 GM H FA aerosol inhaler Discontinued 6 g IH DAILY November 07, 2019 12:00am January 19, 2020 11:40am Comment on above: TWICE A DAY cephalexin 500 mg oral capsule (9 sources) Cephalosporin Antibacterial Start: 09-18-19 End: 07-02-19 take 1 capsule by mouth three times daily Cephalexin 500 mg capsule Discontinued 500 mg PO THREE TIMES A DAY 15 5 September 17, 2022 12:00am July 02, 2023 5:25am diphenhydrAMINE (3 sources) Histamine-1 Receptor Antagonist Start: 08-10-19 End: 08-10-19 Starting on Thu08/10/23 at 2155, For 1 dose, Created by cabinet override Start: 08-10-2023 End: 08-10-2023 50 mg, intramuscular, Once, On Thu08/10/23 at 2155, For 1 dose, If giving IV push, max rate of 25 mg/min. Start: 04-29-2021 take 2 capsules by m outh every six hours Diphenhydramine Hcl (Benadryl) 25 mg Capsule Active 50 MG PO EVERY 6 HOURS April 29, 2021 1:33pm doxycycline hyclate 100 mg oral capsule (14 sources) Tetracycline-class Drug Start: 01-22-2022 End: 07-02-2023 take 1 capsule by mouth twice daily Doxycycline Hyclate 100 mg capsule Discontinued 100 mg PO TWICE A DAY 60 0 January 22, 2022 12:00am July 02, 2023 7:06am 30 actuat fluticasone furoate 0.1 mg/actuat / vilanterol 0.025 mg/actuat dry powder inhaler (20 sources) Corticosteroid, beta2-Adrenergic Agonist Start: 09-23-2019 End: 09-26-2019 Fluticasone Furoate-Vilantero l (Breo Ellipta) 100-25 mcg/dose blister with device Discontinued 1 NMA INHALATION DAILY 60 3 September 23, 2019 12:44pm September 26, 2019 12:24pm Start: 09-23-2019 End: 09-26-2019 Fluticasone Furoate-Vilanter ol (Breo Ellipta) 100-25 mcg/dose blister with device Discontinued 1 INH INHALATION DAILY 60 September 23, 2019 11:44am September 26, 2019 11:24am haloperidol 5 mg oral tablet (10 sources) Typical Antipsychotic Start: 02-05-2024 End: 10-20-2024 take 1 tablet by mouth twice daily Haloperidol 5 mg tablet Discontinued 5 mg PO TWICE A DAY February 05, 2024 12:00am October 20, 2024 9:54am depressive disorder Start: 11-30-2023 take 1 tablet by brittany th twice daily Haloperidol (Haldol) 5 MG Tab Active 5 MG PO TWICE A DAY November 30, 2023 12:00am Start: 08-10-2023 End: 08-10-2023 Starting on Thu08/10/23 at 2 155, For 1 dose, Created by cabinet override Start: 08-10-2023 End: 08-10-2023 5 mg, intramuscular, Once, O n Thu08/10/23 at 2155, For 1 dose, Patients receiving IV haloperidol should be on continuous cardiac monitoring. ibuprofen 400 mg oral tablet (2 sources) Nonsteroidal Anti-inflammatory Drug Start: 09-01-2023 End: 09-01-2023 ibuprofen tablet 400 mg ketamine 100 mg/ml injectable solution (1 source) General Anesthetic Start: 08-10-2023 End: 08-10-2023 340 mg (5 mg/kg 68 kg), intramuscular, Once, On Thu08/10/23 at 2240, For 1 dose, If IM, give deeply into a large muscle mass. If ordered IV or CO, must dilute 1:1 prior to administration. LORazepam 1 mg oral tablet (20 sources) Benzodiazepine Start: 02-05-2024 End: 10-19-2024 take 1 tablet by mouth three times daily as needed for anxiety Lorazepam (Ativan) 1 mg tablet Discontinued 1 mg PO THREE TIMES A DAY as needed for anxiety 10 0 February 05, 2024 12:00am October 19, 2024 4:57pm Start: 08-10-2023 End: 08-10-2023 Starting on Thu08/10/23 at 2 155, For 1 dose, Created by cabinet override Start: 08-10-2023 End: 08-10-2023 inject 1 dose by intramuscular injection once 2 mg, intramuscular, Administer over 5 Minutes, Once, On Thu08/10/23 at 2155, For 1 dose Start: 02-05-2022 End: 07-02-2023 take 1 tablet by mouth once daily as needed for anxiety Lorazepam 0.5 MG tablet Discontinued 0.5 mg PO DAILY as needed for Stress and or anxiety January 04, 2023 12:00am July 02, 2023 7:20am Start: 03-13-2020 End: 01-04-2023 take 1 tablet by mouth three times daily as needed for anxiety Lorazepam (Ativan) 0.5 mg tablet Discontinued 0.5 mg PO THREE TIMES A DAY as needed for anxiety 10 0 December 27, 2021 12:00am January 04, 2023 3:50pm Start: 11-29-2019 LORazepam 1 mg oral tablet Dose : 1 mg = 1 tab(s), Oral, TID, PRN as needed for anxiety, 79.5 Start Date: 11/29/19 Status: Ordered melatonin 10 mg oral capsule (12 sources) Start: 07-11-2024 End: 10-19-2024 take 1 capsule by mouth at bedtime Melatonin 10 mg capsule Discontinued 10 mg PO AT BEDTIME July 11, 2024 12:00am October 19, 2024 4:57pm Start: 02-05-2024 End: 07-11-2024 take 2 tablets by mouth at bedtime as needed Melatonin 3 mg tablet Discontinued 6 mg PO AT BEDTIME NEEDED as needed for insomnia February 05, 2024 12:00am July 11, 2024 11:00am nystatin [id number] unt/ml oral suspension (20 sources) Polyene Antifungal Start: 06-18-2022 End: 01-04-2023 take 1 mL by mouth four times daily Nystatin 100,000 unit/mL suspension Discontinued 2 mL PO 4 TIMES DAILY 100 0 June 18, 2022 1:00am January 04, 2023 3:50pm Put 1 mL in each side of mouth 4 times a day. Start: 06-18-2022 End: 01-04-2023 take 1 mL by mouth four times daily Nystatin Discontinued 2 ML PO 4 TIMES DAILY 100 June 18, 2022 12:00am January 04, 2023 2:50pm Put 1 mL in each side of mouth 4 times a day. Start: 01-27-2022 nystatin (Myco statin) [id number] UNIT/ML suspension Use 500,000 Units in the mouth or throat. 0 01/27/2022 Active Start: 12-27-2021 End: 01-04-2023 take 1 mL by mouth every six hours Nystatin 100,000 unit/mL suspension Discontinued 5 mL PO EVERY 6 HOURS 200 0 December 27, 2021 12:00am January 04, 2023 3:50pm swish and swallow Start: 12-27-2021 End: 01-04-2023 take 1 mL by mouth every six hours Nystatin Discontinued 5 ML PO EVERY 6 HOURS 200 December 26, 2021 11:00pm January 04, 2023 2:50pm swish and swallow ondansetron 4 mg disintegrating oral tablet (1 source) Serotonin-3 Receptor Antagonist Start: 01-30-2020 End: 04-08-2021 take 1 tablet by mouth every eight hours as needed for nausea and nausea ondansetron orally disintegrating (ZOFRAN ODT) 4 mg disintegrating tablet Indications: Nausea Take 1 tablet by mouth every 8 hours as needed for Nausea/Vomiting. 15 tablet 01/30/2020 04/08/2021 Discontinued (Other) pantoprazole 40 mg delayed release oral tablet (20 sources) Proton Pump Inhibitor Start: 08-30-2024 End: 10-17-2024 take 1 tablet by mouth once daily Pantoprazole 40 mg tablet,delayed release (DR/EC) Discontinued 40 mg PO daily 30 2 August 30, 2024 12:00am October 17, 2024 1:53pm Start: 08-12-2024 End: 08-30-2024 take 1 tablet by mouth twice daily Pantoprazole 20 mg tablet,delayed release (DR/EC) Discontinued 20 mg PO TWICE A DAY August 18, 2024 12:00am August 30, 2024 7:26am Start: 03-28-2021 End: 05-17-2021 take 1 tablet by mouth twice daily Pantoprazole 40 mg tablet,delayed release (DR/EC) Discontinued 40 mg PO TWICE A DAY 60 May 15, 2021 3:19pm May 17, 2021 1:31pm Start: 01-23-2020 End: 10-05-2020 take 1 tablet by mouth once daily Pantoprazole (Protonix) 40 mg tablet,delayed release (DR/EC) Discontinued 40 mg PO DAILY February 16, 2020 12:00am October 05, 2020 10:56am Comment on above: Take 1 tablet by brittany th twice daily. Take on empty stomach, 1/2 hr before meal. predniSONE 20 mg oral tablet (10 sources) Start: End: take 1 tablet by mouth twice daily Prednisone 20 mg tablet Discontinued 20 mg PO TWICE A DAY 10 September 03, 2022 12:00am January 04, 2023 3:50pm QUEtiapine 100 mg oral tablet (20 sources) Atypical Antipsychotic Start: 3 End: Quetiapine (Seroquel) 100 mg Tablet Discontinued 50 mg PO AT BEDTIME September 17, 2022 12:00am February 05, 2024 1:34pm Start: 09-17-2022 Quetiapine (Se roquel) 100 mg Tablet Active 150 MG PO AT BEDTIME September 16, 2022 11:00pm Start: 02-05-2022 take 1 tablet by brittany th once daily QUEtiapine (SEROquel) 300 MG tablet Take 300 mg by mouth Nightly. 0 02/05/2022 Active Start: 09-01-2021 End: 01-04-2023 take 1 tablet by mouth at bedtime Quetiapine (Seroquel) 100 mg Tablet Discontinued 100 mg PO AT BEDTIME September 01, 2021 12:00am January 04, 2023 3:49pm take 1 tablet by brittany th once daily at bedtime QUEtiapine (SEROQUEL) 200 mg tablet Take 200 mg by mouth daily at bedtime. Active Comment on above: Take 100 mg by mouth daily at bedtime. Take 200 mg by mouth daily at bedtime. rOPINIRole 0.25 mg oral tablet (20 sources) Nonergot Dopamine Agonist Start: 11-14-2022 End: 02-05-2024 take 1 tablet by mouth at bedtime Ropinirole 0.25 mg tablet Discontinued 0.25 mg PO AT BEDTIME January 04, 2023 12:00am February 05, 2024 1:34pm Start: 01-27-2022 End: 08-04-2022 take 1 tablet by mouth once daily rOPINIRole (Requip) 0.25 MG tablet Take 1 tablet (0.25 mg) by mouth Nightly. 90 tablet 1 04/29/2022 Active traZODone hydrochloride 100 mg oral tablet (19 sources) Serotonin Reuptake Inhibitor Start: 01-22-2020 End: 01-04-2023 take 2 tablets by mouth at bedtime Trazodone 100 MG tablet Discontinued 200 mg PO AT BEDTIME January 22, 2020 12:00am January 04, 2023 3:49pm Start: 01-22-2020 End: 01-04-2023 take 200 mg by mouth at bedtime Trazodone Discontinued 200 MG PO AT BEDTIME January 21, 2020 11:00pm January 04, 2023 2:49pm Start: 11-29-2019 traZODone 100 mg oral tablet Dose : 100 mg = 1 tab(s), Oral, qHS Start Date: 11/29/19 Status: Ordered divalproex sodium 500 mg delayed release oral tablet (13 sources) Mood Stabilizer, Anti-epileptic Agent Start: 02-16-2020 End: 10-05-2020 take 1 tablet by mouth three times daily Divalproex (Depakote) 500 mg tablet,delayed release (DR/EC) Discontinued 500 mg PO THREE TIMES A DAY February 16, 2020 12:00am October 05, 2020 10:55am Problems Active Problems Problem Classification Problem Date Documented Da te Episodic/Chronic Abdominal pain (20 sources) Epigastric pain; Translations: [Epigastric pain] Onset: 03-07-2021 Episodic Alcohol-related disorders (13 sources) History of alcohol abuse; 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, in remission] 04-29-2021 Chronic Comment on above: SOBER 3 YRS AGO SOBER SINCE 12/2023 Alcohol-related disorders (3 sources) Alcohol intoxication delirium ; Translations: [Alcohol use, unspecified with intoxication delirium] Onset: 08-10-2023 08-11-2023 Episodic Allergic reactions (13 sources) Allergic condition; Translations: [Allergy, unspecified, initial encounter] 10-05-2020 Episodic Anxiety disorders (20 sources) Anxiety disorder, unspecified; Translations: [Anxiety disorder] Onset: 11-30-2016 Chronic Asthma (20 sources) Asthma; Translations: [Unspecified asthma, uncomplicated] Onset: 11-14-2022 10-05-2020 Chronic Attention-deficit, conduct, and disruptive behavior disorders (12 sources) Attention deficit hyperactivity disorder, combined type; Translations: [Attention-deficit hyperactivity disorder, combined type] Onset: 02-04-2021 02-09-2022 Chronic Attention-deficit, conduct, and disruptive behavior disorders (1 source) Altered behavior; Translations: [Other symptoms and signs involving appearance and behavior] 01-06-2024 Episodic Esophageal disorders (20 sources) Gastro-esophageal reflux disease with esophagitis; Translations: [Gastroesophageal reflux disease with esophagitis without hemorrhage] Onset: 01-30-2020 05-17-2021 Chronic Esophageal disorders (14 sources) Esophageal disorders; Translations: [Gastro-esophageal reflux disease with esophagitis, without bleeding] Onset: 11-09-2024 11-24-2021 Comment on above: ON MED Fluid and electrolyte disorders (2 sources) Hyponatremia; Translations: [Hypo-osmolality and hyponatremia] 11-01-2024 Episodic Gastritis and duodenitis (20 sources) Gastritis; Translations: [Gastritis, unspecified, without bleeding] Onset: 03-22-2021 Episodic Gastroduodenal ulcer (except hemorrhage) (3 sources) Gastric ulcer; Translations: [Gastric ulcer, unspecified as acute or chronic, without hemorrhage or perforation] Onset: 11-09-2024 11-09-2024 Chronic Headache; including migraine (2 sources) Headache; Translations: [Nonintractable headache, unspecified chronicity pattern, unspecified headache type] 09-01-2023 Episodic Impulse control disorders, NEC (1 source) Homicidal ideations; Translations: [Homicidal ideations] Onset: 01-05-2024 Episodic Malaise and fatigue (1 source) Other fatigue; Translations: [Other fatigue] Onset: 09-01-2023 Episodic Mood disorders (20 sources) Bipolar disorder, unspecified; Translations: [Bipolar disorder, current episode manic without psychotic features, unspecified] Onset: 12-04-2015 03-16-2020 Chronic Mycoses (11 sources) Candidiasis of mouth; Translations: [Candidal stomatitis] 06-18-2022 Episodic Nausea and vomiting (12 sources) Vomiting; Translations: [Vomiting, unspecified] 09-14-2021 Episodic Nonspecific chest pain (13 sources) Chest pain; Translations: [Chest pain, unspecified] 09-06-2019 Episodic Open wounds of extremities (3 sources) Laceration of hand; Translations: [Laceration without foreign body of right hand, initial encounter] Onset: 08-10-2023 08-11-2023 Episodic Other connective tissue disease (2 sources) Hand pain; Translations: [Pain in unspecified hand] 09-01-2023 Episodic Other gastrointestinal disorders (1 source) Irritable bowel syndrome without diarrhea; Translations: [Irritable bowel syndrome, unspecified] Onset: 08-25-2024 Chronic Other gastrointestinal disorders (13 sources) Constipation; Translations: [Constipation, unspecified] 05-02-2020 Episodic Other gastrointestinal disorders (1 source) Diarrhea; Translations: [Diarrhea, unspecified] Episodic Other hereditary and degenerative nervous system conditions (12 sources) Restless legs; Translations: [Restless legs syndrome] Onset: 04-17-2021 02-09-2022 Chronic Other injuries and conditions due to external causes (13 sources) Injury of finger; Translations: [Unspecified injury of unspecified wrist, hand and finger(s), initial encounter] 09-02-2019 Episodic Other lower respiratory disease (17 sources) Dyspnea; Translations: [Shortness of breath] 09-17-2019 Episodic Other lower respiratory disease (1 source) Shortness of breath; Translations: [Shortness of breath] Onset: 10-24-2024 Episodic Other male genital disorders (9 sources) Prolonged erection of penis; 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, unspecified] 01-04-2023 Chronic Other nervous system disorders (12 sources) Neuropathy; Translations: [Polyneuropathy, unspecified] Onset: 04-17-2021 02-09-2022 Chronic Other upper respiratory disease (13 sources) Acute bronchospasm; Translations: [Acute bronchospasm] 05-30-2019 Episodic Other upper respiratory disease (1 source) Pain in throat; Translations: [Pain in throat] Episodic Other upper respiratory infections (10 sources) Viral upper respiratory tract infection; Translations: [Acute upper respiratory infection, unspecified] 09-03-2022 Episodic Residual codes; unclassified (1 source) Noncompliance with medication regimen; Translations: [Noncompliance with medication regimen] Onset: 12-26-2023 Episodic Residual codes; unclassified (1 source) Other hallucinations; Translations: [Other hallucinations] Onset: 01-05-2024 Episodic Residual codes; unclassified (1 source) Procedure not done; Translations: [Procedure and treatment not carried out, unspecified reason] 02-05-2024 Episodic Residual codes; unclassified (1 source) Tobacco use and exposure - finding; Translations: [Tobacco use] 07-04-2024 Episodic Schizophrenia and other psychotic disorders (20 sources) Schizoaffective disorder, bipolar type; Translations: [Schizoaffective disorder, bipolar type] Onset: 07-15-2016 Resolved: 11-14-2022 03-16-2020 Chronic Schizophrenia and other psychotic disorders (4 sources) Brief psychotic disorder; Translations: [Unspecified psychosis] Onset: 08-10-2023 08-11-2023 Episodic Screening and history of mental health and substance abuse codes (1 source) Personal history of other mental and behavioral disorders; Translations: [History of bipolar disorder] Onset: 12-26-2023 Episodic Substance-related disorders (20 sources) History of substance abuse; Translations: [Other psychoactive substance abuse, in remission] Onset: 11-30-2023 03-16-2020 Chronic Superficial injury; contusion (9 sources) Foreign body of foot; Translations: [Superficial foreign body, right foot, initial encounter] 10-08-2022 Episodic Unclassified (1 source) RM22 Onset: 01-04-2023 Past or Other Problems Problem Classification Problem Date Documented Da te Episodic/Chronic Gastrointestinal hemorrhage (7 sources) Rectal hemorrhage; Translations: [Hemorrhage of anus and rectum] Onset: 07-20-2024 07-11-2024 Episodic Mood disorders (9 sources) Mood disorders Onset: 11-11-2022 11-11-2022 Other connective tissue disease (12 sources) Pain in right lower limb; Translations: [Pain in right leg] Onset: 05-08-2021 02-09-2022 Episodic Other skin disorders (1 source) Follicular disorder, unspecified; Translations: [Follicular disorder, unspecified] Onset: 12-27-2016 Episodic Skin and subcutaneous tissue infections (2 sources) Cellulitis of unspecified part of limb; Translations: [Cellulitis of left lower limb] Onset: 11-30-2016 Episodic Substance-related disorders (6 sources) Cannabis abuse; Translations: [Cannabis use, unspecified, uncomplicated] Onset: 08-10-2023 08-11-2023 Episodic Unclassified (2 sources) Hallucinations, unspecified; Translations: [Edema, unspecified] Onset: 01-06-2017 Episodic Results Test Name Value Interpretation Reference Range Facility Gastroenterology Visit Repor ton 11-09-2024 Gastroenterology Visit Report [facility]enter[facility] [address] [place] [address] OFFICE VISIT Date of Service: 11/09/24 MR#: [id number] Acct: [id number] Name: MATTY WHITLOCK Rep #: [id number] : 1990 Provider: NORMA Rahman Age/Sex: 34/M Location: [facility] Status: Signed Intake Vital Signs 11/01/24 14:23 Height 5 ft 7 in Intake Visit Reasons: Abdominal pain Chief Complaint: epigastric pain Is patient in pain?: Yes Allergies ondansetron (From Zofran) Adverse Reaction (Verified 11/01/24 14:34) Other Nurse's Note: OV 11/09/24 Pt here for a f/u and reports epigastric pain, n/v, gas, and bloating. Pt reports no medication changes. [facility] Medical History Dietary restriction Esophageal tear Smoker Chest pain Asthma Depression Anxiety Wears glasses Marijuana use Restless legs History of gastritis Former smoker History of pain when walking History of edema Hx of fracture of tibia Asthma History of GERD History of substance abuse Depression SOB (shortness of breath) Schizoaffective disorder, bipolar type History of alcohol abuse Bipolar 1 disorder Anxiety Surgical History History of surgery on lower extremity History of esophagogastroduodenoscopy (EGD) Social History Smoking Status: Current every day smoker tobacco type: cigarettes alcohol intake: former substance use type: does not use and other details: Former use of Marijuana HPI HPI Chief Complaint: epigastric pain Details: MATTY WHITLOCK, is a 34 M who presents to the office today for f/u. [facility] established in 2019 with abd pain. EGD 01.02.22 - LA Grade B reflux esophagitis. Biopsied. - Non-obstructing Schatzki ring. - Erythematous mucosa in the antrum. Biopsied. - Erythematous duodenopathy. Biopsied. GES; not completed [facility] ED 07.21.24 with abd pain and anxiety. Work up with mild leukocytosis with a left shift. Rectal exam with blood OV 4..25 Pt here today to re establish care with [facility]. Pt has been stable on Nexium for a few years however a few weeks ago he started to have epigastric pain again. He has been seen in the ER for a few occasions for this with an unremarkable work up. His PCP switched him to pantoprazole 20 mg BID about a week ago. It was not helping at first but he feels it is now. He endorses diarrhea since the epigastric pain started. He says its all day but less than 5x per day. It is soft and liquid. He did notice some bright red blood a few days ago but this went away. EGD 10.21.24 - LA Grade A reflux esophagitis with no bleeding. Biopsied. - Abnormal esophageal motility. - Gastroparesis. - Non-bleeding gastric ulcer with pigmented material. Biopsied. - Erythematous duodenopathy. *Started on Sucralfate and continue PPI OV 7..25 Pt with continued epigastric pain. His anxiety is high and he is finding it difficult to function. He continues with Nexium and Carafate twice daily. He does not feel it is relieving his pain. ROS Const Constitutional: Positive for fatigue, headache(s) and weight change; No fever(s) ENT ENT: Positive for headache(s); No difficulty swallowing Gastro GI: Positive for abdominal pain, bloating, heartburn, excessive flatus, nausea/dyspepsia and vomiting; No belching, change in bowel habits, change in stool character, coffee ground emesis, constipation, cramping, diarrhea, difficulty swallowing, feeling full early, incontinent of stools, Vomiting blood/hematemesis, Blood in stool, loose stools, Black,tarry stools, pain with swallowing or other Musc Musculoskeletal: Positive for joint pain, muscle cramps, numbness, tingling and restless legs Skin Skin: No yellowing of the eye or itchy eyes Neuro Neurology: Positive for headache(s), numbness, tingling, restless legs and tremor(s) Psych Psychiatric: Positive for anxiety, Positive for depression, Positive for Compulsive Behavior, Positive for hyperactivity, Positive for inattentiveness and Positive for obsessions/compulsions Endo Endocrine: Positive for fatigue and weight change Aller/Imm Allergy/Immunologic: No itchy eyes Arturo/Lymp Hematologic/Lymphatic: No easy bleeding or easy bruising Exam Const General: cooperative, healthy appearing and comfortable Orientation: alert HENMT Head: normal to inspection Eyes General: appearance normal, both eyes and all related structures Neck Neck: normal visual inspection Chest Chest palpation inspection: normal inspection of the chest Resp Effort Inspection: normal respiratory effort Cardio Rate: regular rate Rhythm: regular rhythm GI Inspection: normal to inspection Palpation: soft and nontender (more content not included)... [facility] 36on 11-07-2024 36 Reviewed chart. Refi ll appropriate. RX sent. [facility] 36 Pended prior rx of albuterol inh. [facility] 36 Pt stated he was in the ER last night and was given a Rx for a ProAir inhaler but his insurance doesn't cover Pt is asking for Albuterol, please call Pt back once sent Medication name: albuterol 108 (90 Base) MCG/ACT inhaler Medication dosage: 108 mcg (Micrograms) Monthly quantity needed: 18 g How many day supply requestin days Medication route: inhalation (inhaler) Medication administration time(s): every 6 hours If taking medication PRN, reason for taking medication: shortness of breath If this is a controlled substance do you receive this or any other controlled medication from any other doctor or facility: N/A Ordering provider: Siri óGmez Date of last office visit: 10.25.22 Date of next office visit: None Date of last refill: (see medication tab): 11.14.22 Updated/Validated preferred pharmacy: Yes Patient instructed to contact the pharmacy prior to picking up the medication: No Normal [facility] Abdomen/Pelvis W IV Cont ONL Yon 11-01-2024 Abdomen/Pelvis W IV Cont ONLY [facility] Imaging Services [address] [place] [address] Abdomen/Pelvis W IV Cont ONLY MR#: [id number] Acct: [id number] Name: MATTY WHITLOCK Rep #: [id number] : 1990 M 34 From: Lexii Lopez PCP: Dr. Laine Dye MD Status: REG ER Study: Abdomen/Pelvis W IV Cont ONLY Date of Exam: Exam# [id number] Ordering Dr: Aidan Hickey DO PROCEDURE: ABDOMEN/PELVIS W IV CONT ONLY 11/01/2024 REASON FOR EXAM: EPIGASTRIC ABDOMINAL PAIN, KNOWN PUD TECHNIQUE: ABDOMEN/PELVIS W IV CONT ONLY Coronal and Sagittal reconstruction series were provided. CONTRAST: 100 mL of Isovue 370 One or more dose reduction techniques were used (e.g., Automated exposure control, adjustment of the mA and/or kV according to patient size, use of iterative reconstruction technique. RADIATION DOSE SUMMARY: DLP: 742 mGycm COMPARISON: 09/01/2021 FINDINGS: Limited sections of the lung bases demonstrate no focal pulmonary mass or consolidations. The liver, spleen, pancreas, and both adrenal glands demonstrate no acute findings. The gallbladder is unremarkable. The stomach is unremarkable. The small bowel loops are not dilated. The appendix is normal No colonic obstruction. Colonic diverticulosis without acute diverticulitis. Minimal thickening of the rectal wall where proctitis is not excluded. There is no free air or significant free fluid. No hydronephrosis however there is mild hydroureter with distended urinary bladder where reflux is not excluded. The pelvic structures are intact. There is no solid pelvic mass. No significant lymphadenopathy. The aorta and IVC demonstrate no acute findings. Visualized osseous structures demonstrate no acute abnormality. Bilateral L5 pars defects. CT/Abdomen/Pelvis W IV Cont ONLY IMPRESSION: No hydronephrosis however there is mild hydroureter with distended urinary bladder where reflux is not excluded. Minimal thickening of the rectal wall where proctitis is not excluded. Colonic diverticulosis without acute diverticulitis. No bowel obstruction. Reading Location: [id number] CC: Dr. Aidan Hickey DO; Dr. Laine Dye MD Moveman: Signed Normal [facility] Absolute lymphocyte countOrd ered By: Aidan Hickey on 11-01-2024 Lymphocytes Auto (Unsp spec) [#/Vol] 3.02 10*3/uL 0.83-4.51 [facility] Absolute neutrophil countOrd ered By: Aidan Hickey on 11-01-2024 Neutrophils (Bld) [#/Vol] 9.4 10*3/uL High 2.0-7.7 [facility] Anion gap in Serum or Plasma Ordered By: Aidan Hickey on 11-01-2024 Anion gap [Moles/Vol] 10 mmol/L 5-15 [facility] Automated lymphocyte count a s percentage of total leukocytesOrdered By: Aidan Hickey on 11-01-2024 Lymphocytes/100 WBC Auto (Unsp spec) 22.2 % 19-41 [facility] BUN/creatinine ratioOrdered By: Aidan AmayaGary on 11-01-2024 Urea nitrogen/Creatinine [Mass ratio] 6.8 mg/mg Low 10-20 [facility] Basic Metabolic Profile (BMP )on 11-01-2024 BUN/CRE 6.8 RATIO Low 10-20 [facility] Comment on above: Performed By: #### L 500.2500 ####[facility] [address] [place], [address] Calcium [Mass/Vol] 8.5 mg/dL Normal 7.6-11.0 [facility] Comment on above: Performed By: #### L 500.2500 ####[facility] [address] [place], [address] Chloride [Moles/Vol] 100 mmol/L Normal 98-108 [facility] Comment on above: Performed By: #### L 500.2500 ####[facility] [address] [place], [address] CO2 [Moles/Vol] 22.1 mmol/L Normal 21.0-32.0 [facility] Comment on above: Performed By: #### L 500.2500 ####[facility] [address] [place], [address] Creatinine [Mass/Vol] 0.68 mg/dL Low 0.70-1.20 [facility] Comment on above: Performed By: #### L 500.2500 ####[facility] [address] [place], [address] ECRCL 162.73 ml/min Normal 50-250 [facility] Comment on above: Performed By: #### L 500.2500 ####[facility] [address] [place], [address] GAP 10 Normal 5-15 [facility] Comment on above: Performed By: #### L 500.2500 ####[facility] [address] [place], [address] GFR/1.73 sq M.predicted among non-blacks MDRD (S/P/Bld) [Vol rate/Area] 126 mL/min/{1.73_m2} Normal >60 [facility] Comment on above: Result Comment: mL/m in/1.73m2 CKD-EPI Creatinine Equation (2020) Performed By: #### L 500.2500 ####[facility] [address] [place], [address] Glucose [Mass/Vol] 96 mg/dL Normal 70-99 [facility] Comment on above: Performed By: #### L 500.2500 ####[facility] [address] [place], [address] Potassium [Moles/Vol] 3.6 mmol/L Normal 3.3-5.1 [facility] Comment on above: Performed By: #### L 500.2500 ####[facility] [address] [place], [address] Sodium [Moles/Vol] 133 mmol/L Normal 133-145 [facility] Comment on above: Performed By: #### L 500.2500 ####[facility] [address] [place], [address] Urea nitrogen [Mass/Vol] 5 mg/dL Normal 4-19 [facility] Comment on above: Performed By: #### L 500.2500 ####[facility] [address] [place], [address] Basophil percentageOrdered B y: Aidan Hickey on 11-01-2024 Basophils/100 WBC (Bld) 0.7 % 0-1 [facility] Bilirubin, totalOrdered By: Aidan Hickey on 11-01-2024 Bilirubin [Mass/Vol] 0.20 mg/dL 0.00-1.30 [facility] CBC W/Diff, Automatedon Absolute Lymph 3.02 X10 3/uL Normal 0.83-4.51 [facility] Comment on above: Performed By: #### L 501.2450, L500.4050, L100.0100 ####[facility] [address] [place], [address] Absolute Neut 9.4 X10 3/uL High 2.0-7.7 [facility] Comment on above: Performed By: #### L 501.2450, L500.4050, L100.0100 ####[facility] [address] [place], [address] Basophils/100 WBC (Bld) 0.7 % Normal 0-1 [facility] Comment on above: Performed By: #### L 501.2450, L500.4050, L100.0100 ####[facility] [address] [place], [address] Eosinophils/100 WBC (Bld) 1.6 % Normal 0-5 [facility] Comment on above: Performed By: #### L 501.2450, L500.4050, L100.0100 ####[facility] [address] [place], [address] Erythrocyte distribution width (RBC) [Ratio] 12.7 % Normal 11.6-14.6 [facility] Comment on above: Performed By: #### L 501.2450, L500.4050, L100.0100 ####[facility] [address] [place], [address] Hematocrit (Bld) [Volume fraction] 38.0 % Low 40-54 [facility] Comment on above: Performed By: #### L 501.2450, L500.4050, L100.0100 ####[facility] [address] [place], [address] Hemoglobin (Bld) [Mass/Vol] 13.1 g/dL Normal 13.0-16.5 [facility] Comment on above: Performed By: #### L 501.2450, L500.4050, L100.0100 ####[facility] [address] [place], [address] IG% 0.500 Normal 0.0-0.9 [facility] Comment on above: Result Comment: IG% - Immature Granulocytes (promyelocytes, myelocytes and metamyelocytes) > 1% indicates that a LEFT SHIFT is Present. Performed By: #### L 501.2450, L500.4050, L100.0100 ####[facility] [address] [place], [address] Lymphocytes/100 WBC (Bld) 22.2 % Normal 19-41 [facility] Comment on above: Performed By: #### L 501.2450, L500.4050, L100.0100 ####[facility] [address] [place], [address] MCH (RBC) [Entitic mass] 28.7 pg Normal 27.0-32.0 [facility] Comment on above: Performed By: #### L 501.2450, L500.4050, L100.0100 ####[facility] [address] [place], [address] MCHC (RBC) [Mass/Vol] 34.5 g/dL Normal 32-36 [facility] Comment on above: Performed By: #### L 501.2450, L500.4050, L100.0100 ####[facility] [address] [place], [address] MCV (RBC) [Entitic vol] 83.3 fL Normal 80-94 [facility] Comment on above: Performed By: #### L 501.2450, L500.4050, L100.0100 ####[facility] [address] [place], [address] Monocytes/100 WBC (Bld) 6.0 % Normal 0-10 [facility] Comment on above: Performed By: #### L 501.2450, L500.4050, L100.0100 ####[facility] [address] [place], [address] Neutrophils/100 WBC (Bld) 69.0 % Normal 47-70 [facility] Comment on above: Performed By: #### L 501.2450, L500.4050, L100.0100 ####[facility] [address] [place], [address] Nucleated RBC (Bld) [#/Vol] 0 10*3/uL Normal 0-5 [facility] Comment on above: Performed By: #### L 501.2450, L500.4050, L100.0100 ####[facility] [address] [place], [address] Platelet mean volume (Bld) [Entitic vol] 9.6 fL Normal 6.2-12.0 [facility] Comment on above: Performed By: #### L 501.2450, L500.4050, L100.0100 ####[facility] [address] [place], [address] Platelets (Bld) [#/Vol] 263 10*3/uL Normal 150-450 [facility] Comment on above: Performed By: #### L 501.2450, L500.4050, L100.0100 ####[facility] [address] [place], [address] RBC (Bld) [#/Vol] 4.56 10*6/uL Low 4.6-6.2 [facility] Comment on above: Performed By: #### L 501.2450, L500.4050, L100.0100 ####[facility] [address] [place], [address] RDW SD 38.5 fl Normal 35.1-43.9 [facility] Comment on above: Performed By: #### L 501.2450, L500.4050, L100.0100 ####[facility] [address] [place], [address] WBC (Bld) [#/Vol] 13.6 10*3/uL High 4.4-11.0 [facility] Comment on above: Performed By: #### L 501.2450, L500.4050, L100.0100 ####[facility] [address] [place], [address] Carbon dioxide, total [Moles /volume] in Central venous bloodOrdered By: Aidan Hickey on 11-01-2024 CO2 [Moles/Vol] 22.1 mmol/L 21.0-32.0 [facility] Chest 1 View (Portable)on Chest 1 View (Portable) [facility] Imaging Services [address] [place] [address] Chest 1 View (Portable) MR#: [id number] Acct: [id number] Name: MATTY WHITLOCK Rep #: [id number] : 1990 M 34 From: Jv Lopez PCP: Dr. Laine Dye MD Status: REG ER Study: Chest 1 View (Portable) Date of Exam: 11/01/24 Exam# [id number] Ordering Dr: Aidan Hickey DO PROCEDURE: CHEST 1 VIEW (PORTABLE) 11/01/2024 REASON FOR EXAM: EPIGASTRIC ABDOMINAL PAIN TECHNIQUE: Frontal view of the chest. COMPARISON: Chest x-ray of 10/19/2024. RAD/Chest 1 View (Portable) IMPRESSION: No evidence of pneumoperitoneum. No pleural effusion or pneumothorax is seen. Lungs appear clear throughout. The cardiomediastinal silhouette is within the normal range. 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 Reading Location: [address] CC: Dr. Aidan Hickey DO; Dr. Laine Dye MD Moveman: Signed Normal [facility] Chloride assayOrdered By: Maikol Hickey on 11-01-2024 Chloride [Moles/Vol] 100 mmol/L 98-108 [facility] Comprehensive Metabolic Prof ilon 11-01-2024 Albumin [Mass/Vol] 4.3 g/dL Normal 3.5-5.0 [facility] Comment on above: Performed By: #### L 501.0320, L500.4050, L100.0100 ####[facility] [address] [place], [address] Albumin/Globulin [Mass ratio] 1.9 {ratio} Normal 0.9-2.4 [facility] Comment on above: Performed By: #### L 501.2450, L500.4050, L100.0100 ####[facility] [address] [place], [address] ALK PHOS 82 U/L Normal 40-129 [facility] Comment on above: Performed By: #### L 501.2450, L500.4050, L100.0100 ####[facility] [address] [place], [address] ALT [Catalytic activity/Vol] 24 U/L Normal <=46 [facility] Comment on above: Performed By: #### L 501.2450, L500.4050, L100.0100 ####[facility] [address] [place], [address] AST [Catalytic activity/Vol] 20 U/L Normal <=37 [facility] Comment on above: Performed By: #### L 501.2450, L500.4050, L100.0100 ####[facility] [address] [place], [address] Bilirubin [Mass/Vol] 0.20 mg/dL Normal 0.00-1.30 [facility] Comment on above: Performed By: #### L 501.2450, L500.4050, L100.0100 ####[facility] [address] [place], [address] BUN/CRE 7.1 RATIO Low 10-20 [facility] Comment on above: Performed By: #### L 501.2450, L500.4050, L100.0100 ####[facility] [address] [place], [address] Calcium [Mass/Vol] 9.0 mg/dL Normal 7.6-11.0 [facility] Comment on above: Performed By: #### L 501.2450, L500.4050, L100.0100 ####[facility] [address] [place], [address] Chloride [Moles/Vol] 93 mmol/L Low 98-108 [facility] Comment on above: Performed By: #### L 501.2450, L500.4050, L100.0100 ####[facility] [address] [place], [address] CO2 [Moles/Vol] 22.1 mmol/L Normal 21.0-32.0 [facility] Comment on above: Performed By: #### L 501.2450, L500.4050, L100.0100 ####[facility] [address] [place], [address] Creatinine [Mass/Vol] 0.77 mg/dL Normal 0.70-1.20 [facility] Comment on above: Performed By: #### L 501.2450, L500.4050, L100.0100 ####[facility] [address] [place], [address] ECRCL 143.71 ml/min Normal 50-250 [facility] Comment on above: Performed By: #### L 501.2450, L500.4050, L100.0100 ####[facility] [address] [place], [address] GAP 12 Normal 5-15 [facility] Comment on above: Performed By: #### L 501.2450, L500.4050, L100.0100 ####[facility] [address] [place], [address] GFR/1.73 sq M.predicted among non-blacks MDRD (S/P/Bld) [Vol rate/Area] 121 mL/min/{1.73_m2} Normal >60 [facility] Comment on above: Result Comment: mL/m in/1.73m2 CKD-EPI Creatinine Equation (2020) Performed By: #### L 501.2450, L500.4050, L100.0100 ####[facility] [address] [place], [address] Globulin (S) [Mass/Vol] 2.2 g/dL Normal 2.2-4.2 [facility] Comment on above: Performed By: #### L 501.2450, L500.4050, L100.0100 ####[facility] [address] [place], [address] Glucose [Mass/Vol] 94 mg/dL Normal 70-99 [facility] Comment on above: Performed By: #### L 501.2450, L500.4050, L100.0100 ####[facility] [address] [place], [address] Potassium [Moles/Vol] 3.9 mmol/L Normal 3.3-5.1 [facility] Comment on above: Performed By: #### L 501.2450, L500.4050, L100.0100 ####[facility] [address] [place], [address] Sodium [Moles/Vol] 127 mmol/L Low 133-145 [facility] Comment on above: Performed By: #### L 501.2450, L500.4050, L100.0100 ####[facility] [address] [place], [address] T PROT 6.5 g/dL Normal 5.9-8.4 [facility] Comment on above: Performed By: #### L 501.2450, L500.4050, L100.0100 ####[facility] [address] [place], [address] Urea nitrogen [Mass/Vol] 5 mg/dL Normal 4-19 [facility] Comment on above: Performed By: #### L 501.2450, L500.4050, L100.0100 ####[facility] [address] [place], [address] Emergency Department Summary on 11-01-2024 Emergency Department Summary [facility] Medical Records Department [address] [place] [address] Emergency Department Summary 11/01/24 MR#: [id number] Acct: [id number] Name: MATTY WHITLOCK Rep #: [id number] : 1990 34 From: Aidan Hickey DO PCP: Dr. Laine Dye MD Status:REG ER Location: ED HPI History of Present Illness Chief Complaint: Other, Pain/Inj Narrative Narrative: Chief complaint and HPI: Epigastric abdominal pain. 34-year-old male with past medical history of chronic epigastric pain, bloating, anxiety presents for evaluation of epigastric abdominal pain. Patient states that he follows with GI secondary to his symptoms. He recently had an EGD performed with Dr. Herndon and was diagnosed with ulcers. Patient states he was recently prescribed Carafate in which he has been taking. He states today his epigastric abdominal pain reoccurred. It feels like his typical pain. He states when he develops pain his anxiety increases. He denies any fever, chills, chest pain, nausea, vomiting, diarrhea, constipation, dysuria. Review of systems: See HPI Medications: As listed on the chart Allergies: As listed on the chart PFSH: Per chart Vital signs: As listed on the chart. Reviewed. Physical exam: Gen: A O x3, anxious Head: Normocephalic, atraumatic Eyes: No sclera icterus, conjunctiva clear ENT: Moist mucous membranes Neck: Trachea midline, No JVD CV: RRR, no murmurs, no peripheral edema Resp: Lungs CTA BL, no w/r/c GI: Abd soft, minimal tenderness in the epigastrium, non-tender, no r/r/g Musc: Full ROM, no deformity Skin: Warm, dry Neuro: Alert, oriented, grossly intact, sensation intact Psych: Cooperative, anxious PFSH PFSH Medical History Dietary restriction Esophageal tear Smoker Chest pain Asthma Depression Anxiety Wears glasses Marijuana use Restless legs History of gastritis Former smoker History of pain when walking History of edema Hx of fracture of tibia Asthma History of GERD History of substance abuse Depression SOB (shortness of breath) Schizoaffective disorder, bipolar type History of alcohol abuse Bipolar 1 disorder Anxiety Home Medications ???Medication ???Instructions ???Recorded ???Last Taken ???Type buspirone 10 mg tablet 10 mg PO TID 07/11/24 10/21/24 His tory prazosin 1 mg capsule 1 mg PO QHS 07/11/24 10/20/24 Hist ory esomeprazole magnesium 40 mg 40 mg PO BID #60 caps 09/15/24 Rx capsule,delayed release dicyclomine 20 mg tablet 20 mg PO BID PRN abdominal pain 10/21/24 Rx #30 tabs albuterol sulfate 90 mcg/actuation 2 inh inhalation Q6H PRN shortne ss 10/19/24 10/21/24 Rx breath activated powder inhaler of breath or wheezing #1 ea (ProAir RespiClick) benztropine 1 mg tablet 1 mg PO DAILY 10/19/24 10/21/24 Hi story clonidine HCl 0.2 mg tablet 0.2 mg PO TID 10/19/24 10/21/24 Hi story hydroxyzine HCl 50 mg tablet 50 mg PO DAILY PRN sleep 10/19/24 10/21/24 History famotidine 40 mg tablet 40 mg PO QHS PRN GERD 10/20/24 Unk nown History paliperidone palmitate 156 mg/mL 156 mg IM Q30D 10/20/24 Unknown Hi story intramuscular syringe (Invega Sustenna) sucralfate 100 mg/mL oral 10 ml PO BID #300 mL 10/21/24 Unkn own Rx suspension (Carafate) Allergy/AdvReac Type Severity Reaction Status Date / Time ondansetron (From Zofran) AdvReac Other Verified 11/01/24 14:34 Surgical History History of surgery on lower extremity History of esophagogastroduodenoscopy (EGD) Social History Smoking Status: Current every day smoker tobacco type: cigarettes alcohol intake: former substance use type: does not use and other details: Former use of Marijuana EXAM Physical Exam Const Vital Signs: 11/01/24 14:23 11/01/24 14:32 11/01/24 19:00 Temperature 96.7 F L Temperature Source Temporal Pulse Rate 79 63 Respiratory Rate 22 H 18 Respiratory Pattern Normal Blood Pressure 113/81 H 108/45 L Blood Pressure Mean 91 66 Pulse Ox 99 100 Oxygen Delivery Method Room Air Room Air MDM MDM MDM Narrative Medical decision making narrative: 34-year-old male with past medical history of chronic epigastric pain, bloating, anxiety presents for evaluation of epigastric abdominal pain. Recently diagnosed with an ulcer by Dr. Herndon. Epigastric pain reoccurred today. Patient in no acute acute distress although is very anxious on examination. On chart review, patient had an EGD performed with Dr. Herndon on 10/14/2024. This found with grade a reflux esophagitis with no bleeding. Abnormal esophageal motility. Gastroparesis. Nonbleeding (more content not included)... Normal [facility] Eosinophil percentageOrdered By: Aidan Hickey on 11-01-2024 Eosinophils/100 WBC (Bld) 1.6 % 0-5 [facility] Erythrocyte distribution wid th ratioOrdered By: Aidan Hickey on 11-01-2024 Erythrocyte distribution width (RBC) [Ratio] 12.7 % 11.6-14.6 [facility] Erythrocyte distribution wid th standard deviationOrdered By: Aidan Vega on 11-01-2024 Erythrocyte distribution width (RBC) [Ratio] 38.5 fl 35.1-43.9 [facility] Glomerular filtration rate ( GFR) estimation/1.73 sq m using serum, plasma, or whole bOrdered By: Aidan Hickey on 11-01-2024 GFR/1.73 sq M.predicted among non-blacks MDRD (S/P/Bld) [Vol rate/Area] 126 mL/min/{1.73_m2} >60 [facility] Comment on above: mL/min/1.73m2 CKD-EP I Creatinine Equation (2020) Hematocrit Auto (Bld) [Volum e fraction]Ordered By: Aidan Hickey on 11-01-2024 Hematocrit (Bld) [Volume fraction] 38.0 % Low 40-54 [facility] Hemoglobin measurementOrdere d By: Aidan Hickey on 11-01-2024 Hemoglobin (Bld) [Mass/Vol] 13.1 g/dL 13.0-16.5 [facility] Immature granulocytes/100 WB C Auto (Bld)Ordered By: [facility] on 11-01-2024 Immature granulocytes/100 WBC (Bld) 0.500 % 0.0-0.9 [facility] Comment on above: IG% - Immature Granu locytes (promyelocytes, myelocytes and metamyelocytes) > 1% indicates that a LEFT SHIFT is Present. Laboratory - Chemistry and C hemistry - challengeOrdered By: Aidan Hickey on 11-01-2024 AST [Catalytic activity/Vol] 20 U/L <38 [facility] Lipaseon 11-01-2024 Lipase [Catalytic activity/Vol] 46 U/L Normal 13-75 [facility] Comment on above: Result Comment: Ira morales note: LIPASE revised reference range effective 22. New Lipase methodology. Expected to produce lower values than the previous assay method. NEW Reference Range: 13 - 75 U/L Performed By: #### L 501.2450, L500.4050, L100.0100 ####[facility] [address] [facility] [place], [address] Lipase measurementOrdered By : [facility] Center[facility] on 11-01-2024 Lipase [Catalytic activity/Vol] 46 U/L 13-75 [facility] Comment on above: Please note:LIPASE r evised reference range effective 22. New Lipase methodology. Expected to produce lower values than the previous assay method. NEW Reference Range: 13 - 75 U/L MCV (mean corpuscular volume ) determinationOrdered By: Aidan Hickey on 11-01-2024 MCV (RBC) [Entitic vol] 83.3 fL 80-94 [facility] Mean corpuscular hemoglobin (MCH) determinationOrdered By: Aidan Hickey on 11-01-2024 MCH (RBC) [Entitic mass] 28.7 pg 27.0-32.0 [facility] Mean corpuscular hemoglobin concentration (MCHC) determinationOrdered By: Aidan Hickey on 11-01-2024 MCHC (RBC) [Mass/Vol] 34.5 g/dL 32-36 [facility] Mean platelet volume determi nationOrdered By: Aidan Hickey on 11-01-2024 Platelet mean volume (Bld) [Entitic vol] 9.6 fL 6.2-12.0 [facility] Monocyte percentageOrdered B y: Aidan Hickey on 11-01-2024 Monocytes/100 WBC (Bld) 6.0 % 0-10 [facility] Neutrophil percentageOrdered By: Aidan Hickey on 11-01-2024 Neutrophils/100 WBC (Bld) 69.0 % 47-70 [facility] Nucleated red blood cell per centageOrdered By: Aidan Hickey on 11-01-2024 Nucleated RBC/100 WBC (Bld) [Ratio] 0 % 0-5 [facility] Platelet countOrdered By: Maikol Hickey on 11-01-2024 Platelets (Bld) [#/Vol] 263 10*3/uL 150-450 [facility] Potassium measurement (mass/ volume)Ordered By: Aidan Hickey on 11-01-2024 Potassium (Unsp spec) [Mass/Vol] 3.6 mmol/L 3.3-5.1 [facility] RBC Auto (Bld) [#/Vol]Ordere d By: Aidan Hickey on 11-01-2024 RBC (Bld) [#/Vol] 4.56 10*6/uL Low 4.6-6.2 [facility] Serum creatinine measurement (mass/volume)Ordered By: Aidan Hickey on 11-01-2024 Creatinine [Mass/Vol] 0.68 mg/dL Low 0.70-1.20 [facility] Serum globulin measurementOr dered By: Aidan Hickey on 11-01-2024 Globulin (S) [Mass/Vol] 2.2 g/dL 2.2-4.2 [facility] Serum glucose measurement (m ass/volume)Ordered By: Aidan Hickey on 11-01-2024 Glucose [Mass/Vol] 96 mg/dL 70-99 [facility] Serum or plasma alanine montez otransferase (ALT) measurementOrdered By: Aidan Hickey on 11-01-2024 ALT [Catalytic activity/Vol] 24 U/L <47 [facility] Serum or plasma albumin simone urement (mass/volume)Ordered By: Aidan Vega on 11-01-2024 Albumin [Mass/Vol] 4.3 g/dL 3.5-5.0 [facility] Serum or plasma albumin/glob ulin mass ratioOrdered By: Aidan Hickey on 11-01-2024 Albumin/Globulin [Mass ratio] 1.9 {ratio} 0.9-2.4 [facility] Serum or plasma alkaline mellissa sphatase measurementOrdered By: Aidan Hickey on 11-01-2024 ALP [Catalytic activity/Vol] 82 U/L 40-129 [facility] Serum or plasma calcium simone urement (mass/volume)Ordered By: Aidan Vega on 11-01-2024 Calcium [Mass/Vol] 8.5 mg/dL 7.6-11.0 [facility] Serum or plasma urea nitroge n measurement (mass/volume)Ordered By: Aidan Hickey on 11-01-2024 Urea nitrogen [Mass/Vol] 5 mg/dL 4-19 [facility] Sodium levelOrdered By: Mane Hickey on 11-01-2024 Sodium [Moles/Vol] 133 mmol/L 133-145 [facility] Total proteinOrdered By: Oj Hickey on 11-01-2024 Protein [Mass/Vol] 6.5 g/dL 5.9-8.4 [facility] White blood cell (WBC) count Ordered By: Aidan Hickey on 11-01-2024 WBC (Bld) [#/Vol] 13.6 10*3/uL High 4.4-11.0 [facility] EGD Reporton 10-21-2024 EGD Report [facility] Medical Records Department [address] [place] [address] EGD Report MR#: [id number] Acct: [id number] Name: MATTY WHITLOCK Rep #: [id number] : 1990 34 From: Vishnu Herndon DO PCP: Dr. Laine Dye MD Status:[facility] Patient Name: Matty Whitlock Procedure Date: 10/21/2024 12:13 PM Date of : 1990 Age: 34 Procedure: Upper GI endoscopy Indications: Epigastric abdominal pain, Functional Dyspepsia, Heartburn, Esophageal reflux Providers: Vishnu Herndon DO Referring MD: Laine Dye Medicines: Monitored Anesthesia Care Patient Profile: This is a 34 year old male. Refer to note in patient chart for documentation of history and physical. Patient has symptoms of chronic chest pain, dysphagia with both liquids and solids, acute dyspepsia, chronic dyspepsia, acute heartburn and chronic heartburn. Complications: No immediate complications. Procedure: Pre-Anesthesia Assessment: - Prior to the procedure, a History and Physical was performed, and patient medications and allergies were reviewed. The patient is competent. The risks and benefits of the procedure and the sedation options and risks were discussed with the patient. All questions were answered and informed consent was obtained. Patient identification and proposed procedure were verified by the physician in the pre-procedure area. Mental Status Examination: alert and oriented. Airway Examination: normal oropharyngeal airway and neck mobility. Respiratory Examination: clear to auscultation. CV Examination: normal. Prophylactic Antibiotics: The patient does not require prophylactic antibiotics. Prior Anticoagulants: The patient has taken no anticoagulant or antiplatelet agents except for NSAID medication. ASA Grade Assessment: II - A patient with mild systemic disease. After reviewing the risks and benefits, the patient was deemed in satisfactory condition to undergo the procedure. The anesthesia plan was to use monitored anesthesia care (MAC). Immediately prior to administration of medications, the patient was re-assessed for adequacy to receive sedatives. The heart rate, respiratory rate, oxygen saturations, blood pressure, adequacy of pulmonary ventilation, and response to care were monitored throughout the procedure. The physical status of the patient was re-assessed after the procedure. After obtaining informed consent, the endoscope was passed under direct vision. Throughout the procedure, the patient's blood pressure, pulse, and oxygen saturations were monitored continuously. The gastroscope was introduced through the mouth, and advanced to the fourth part of the duodenum. Small bowel enteroscopy was deemed necessary. The upper GI endoscopy was accomplished without difficulty. The patient tolerated the procedure well. Scope In: 12:22:51 PM Scope Out: 12:28:29 PM Total Procedure Duration Time 0 hours 5 minutes 38 seconds Findings: LA Grade A (one or more mucosal breaks less than 5 mm, not extending between tops of 2 mucosal folds) esophagitis with no bleeding was found 37 to 40 cm from the incisors. Biopsies were taken with a cold forceps for histology. Verification of patient identification for the specimen was done. Estimated blood loss was minimal. Abnormal motility was noted in the esophagus. The cricopharyngeus was abnormal. There are extra peristaltic waves in the esophageal body. The distal esophagus/lower esophageal sphincter is spastic, but gives up passage to the endoscope. Tertiary peristaltic waves are noted. Suspect gastroparesis due to absence of peristalsis and patient symptoms. One non-bleeding linear gastric ulcer with pigmented material was found in the gastric antrum. The lesion was 8 mm in largest dimension. Biopsies were taken with a cold forceps for histology. Biopsies were taken with a cold forceps for Helicobacter pylori testing. Verification of patient identification for the specimen was done. Estimated blood loss was minimal. Patchy mildly erythematous mucosa without active bleeding and with no stigmata of bleeding was found in the entire duodenum. Impression: - LA Grade A reflux esophagitis with no bleeding. Biopsied. - Abnormal esophageal motility. - Gastroparesis. - Non-bleeding gastric ulcer with pigmented material. Biopsied. - Erythematous duodenopathy. Recommendation: - Discharge patient to home. - Resume previous diet. - Continue present medications. - Await pathology results. - Use sucralfate tablets 1 gram PO BID for 1 month. Procedure Code(s): --- Professional --- 91610, Small intestinal endoscopy, enteroscopy beyond second portion of duodenum, not including ileum; with biopsy, single or multiple CPT copyright 2021 [employer]. All rights reserved. The codes documented in this rep (more content not included)... Normal [facility] Immunohistochemical Stainson 10-21-2024 Immunohistochemical Stains Patient Age/Sex Location Account Attending Physician MATTY WHITLOCK 34/M EN [id number] Vishnu Herndon DO Specimen: [id number] Received: 10/21/24 Status: DIAN Weinstein Num: [id number] Spec Type: EGD BIOPSY Subm Dr: DO BRETT Rocha OPERATION: EGD and biopsy PRE-OP DIAGNOSIS: Abdominal pain and GERD TISSUE SUBMITTED: A- Distal esophagus biopsy, B- Gastric ulcer biopsy, C- Duodenum biopsy MICROSCOPIC DIAGNOSIS A. Distal esophagus, biopsy: - Squamous and columnar mucosa with reactive changes. - Negative for goblet cell metaplasia. B. Gastric ulcer, biopsy: - Oxyntic mucosa with active chronic inflammation and superficial erosion. - IHC for H pylori is pending and will be reported in an addendum. C. Duodenum, biopsy: - Normal villous architecture. - Negative for increased intraepithelial lymphocytes. MICROSCOPIC DESCRIPTION Slides are reviewed. GROSS DESCRIPTION A. Received in fixative is one container labeled with the patient's name and designated Distal esophagus biopsy. The specimen consists of three irregular fragments of light crowell soft tissue that in aggregate measure 0.2 to 0.4 cm. The specimen is totally submitted in one cassette. B. Received in fixative is one container labeled with the patient's name and designated Gastric ulcer biopsy. The specimen consists of two irregular fragments of light crowell soft tissue that in aggregate measure 0.4 and 0.7 cm. The specimen is totally submitted in one cassette. C. Received in fixative is one container labeled with the patient's name and designated Duodenum biopsy. The specimen consists of three irregular fragments of light crowell soft tissue that in aggregate measure 0.3 and 0.5 cm. The specimen is totally submitted in one cassette. Maddy 10/21/2024 CPT:95125v5,71626 Patient Age/Sex Location Account Attending Physician MATTY WHITLOCK/M EN [id number] Vishnumariah Herndon DO ADDENDUM Addendum 1 Entered: 11/04/24-1612 This addendum is to report the IHC for H pylori on part B: B. IHC negative for H pylori organisms. All matched controls reacted appropriately. These tests were developed and their performance characteristics determined by [facility]. They may not have been cleared or approved by the U.S. Food and Drug Administration. The FDA has determined that such clearance or approval is not necessary.??? The above immunohistochemical/dualIS H???markers are reviewed by the Pathologist. Addendum Signed (signature on file) Dr. Argentina Phelps MD 11/04/24 2877 Patient Age/Sex Location Account Attending Physician MATTY WHITLOCK 34/M EN [id number] Vishnu Herndon DO Signed (signature on file) Dr. Argentina Phelps MD 11/04/24 1023 Normal [facility] Comment on above: Performed By: #### P RDAHA GUTIERREZ ####[facility] [id number] [place], [place], [id number] MR/POSTOP.Jennifer 10-21-2024 MR/POSTOP.[facility] Medical Records Department [address] [facility] [address] Anesthesia Postop Eval I 10/21/24 1236 MR#: [id number] Acct: [id number] Name: MATTY WHITLOCK Rep #: [id number] : 1990 34 From: Myla Upton CHERRY PITTER PCP: Dr. Laine Dye MD Status:REG SD Y Race: C Location: [place] [address] Anesthesia: Postop Eval I Current Vital Signs Temperature: 97.6 F Pulse Rate: 70 Blood Pressure: 125/78 Respiratory Rate: 20 Pulse Ox: 95 Assessment Airway patent: Yes Spontaneous unlabored respirations: Yes nausea: No Vomiting: No Anesthesia Complication: No Fluid Hydration Crystalloid volume administer (ml): 500 Total IV fluid infused: 500 Progress Note Anesthesia document: Postop Eval 1 completed: Yes 10/21/24 1236 Date Myla Upton CHERRY PITTER Cosigner Signature: Date CC: Signed Normal [facility] MR/IFLXESUS2hp 10-21-2024 [facility] Medical Records Department [address] [place] [address] Anesthesia Postop Eval II 10/21/24 1311 MR#: [id number] Acct: [id number] Name: MATTY WHITLOCK Rep #: [id number] : 1990 34 From: Myla Upton CHERRY PITTER PCP: Dr. Laine Dye MD Status:REG SD Y Race: C Location: [place] [address] Anesthesia Postop Eval I Sum Postop Eval Completion status Anesthesia document: Postop Eval 1 completed: Yes Anesthesia Postop Eval I Summary Anesthesia Postop Eval I Summary: Anesthesia Postop Eval I: Assessment Summary Airway patent Yes 10/21/24 12:36 CHERRY [email or web address].CSIR Spontaneous unlabored Yes 10/21/24 12:36 CHERRY PITTER.CSIR respirations Mental status nausea No 10/21/24 12:36 CHERRY PITTER.CSIR Vomiting No 10/21/24 12:36 CHERRY PITTER.CSIR Anesthesia Postop Eval I: Fluid Summary Crystalloid volume administer 500 10/21/24 12:36 CHERRY PITTER.CSIR (ml) Colloids volume administered ( ml) Blood Product volume administered (ml) Total IV fluid infused 500 10/21/24 12:36 CHERRY PITTER.CSIR Anesthesia Postop Eval I: Summary Notes Anesthesia Complication No 10/21/24 12:36 CHERRY PITTER.CSIR Anesthesia Complication Comment: Post-operative progress note Anesthesia: Postop Eval II Evaluation Mental status: Awake Pain Level: 0 nausea: No Vomiting: No 10/21/24 1311 Date Myla Upton CHERRY PITTER Cosigner Signature: Date CC: Signed Normal [facility] Surgery Specimen Level Alyson 10-21-2024 Surgery Specimen Level IV Patient Age/Sex Location Account Attending Physician MATTY WHITLOCK/M EN [id number] Vishnu Herndon DO Specimen: [id number] Received: 10/21/24 Status: DIAN Weinstein Num: [id number] Spec Type: EGD BIOPSY Subm Dr: Vishnu Herndon DO HEADER OPERATION: EGD and biopsy PRE-OP DIAGNOSIS: Abdominal pain and GERD TISSUE SUBMITTED: A- Distal esophagus biopsy, B- Gastric ulcer biopsy, C- Duodenum biopsy MICROSCOPIC DIAGNOSIS A. Distal esophagus, biopsy: - Squamous and columnar mucosa with reactive changes. - Negative for goblet cell metaplasia. B. Gastric ulcer, biopsy: - Oxyntic mucosa with active chronic inflammation and superficial erosion. - IHC for H pylori is pending and will be reported in an addendum. C. Duodenum, biopsy: - Normal villous architecture. - Negative for increased intraepithelial lymphocytes. MICROSCOPIC DESCRIPTION Slides are reviewed. GROSS DESCRIPTION A. Received in fixative is one container labeled with the patient's name and designated Distal esophagus biopsy. The specimen consists of three irregular fragments of light crowell soft tissue that in aggregate measure 0.2 to 0.4 cm. The specimen is totally submitted in one cassette. B. Received in fixative is one container labeled with the patient's name and designated Gastric ulcer biopsy. The specimen consists of two irregular fragments of light crowell soft tissue that in aggregate measure 0.4 and 0.7 cm. The specimen is totally submitted in one cassette. C. Received in fixative is one container labeled with the patient's name and designated Duodenum biopsy. The specimen consists of three irregular fragments of light crowell soft tissue that in aggregate measure 0.3 and 0.5 cm. The specimen is totally submitted in one cassette. Maddy 10/21/2024 CPT:46634d2,89463 Patient Age/Sex Location Account Attending Physician MATTY WHITLOCK 34/M EN [id number] Vishnu Herndon, DO Signed (signature on file) Dr. Argentina Phelps MD 11/04/24 1023 [facility] Comment on above: Performed By: #### P IMHI, PSUIV ####[facility] [id number] [place], [place], [id number] MR/PATPanfilo 10-20-2024 MR/PAT.[facility] Medical Records Department [address] [place] [address] PAT - Anesthesia 10/20/24 1422 MR#: [id number] Acct: [id number] Name: MATTY WHITLOCK Rep #: [id number] : 1990 34 From: Corby Rizo MD PCP: Dr. 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 When Was Last Pacemaker Check QUESTION #4 FULL TEXT: You/Your Family Experience fever (hyperthermia) with Anesthesia Last Oral Intake Last Oral intake: Last Oral Intake NPO since Meds taken in AM with sips of water? Meds patient instructed to take am of surgery PONV PONV - salesperson terrazzo tiles: PONV - salesperson terrazzo tiles Female No 10/20/24 09:55 HX of Motion Sickness Yes 10/20/24 09:55 HX of N/V After Surgery No 10/20/24 09:55 Non-Smoker No 10/20/24 09:55 Duration of Surgery greater No 10/20/24 09:55 than 60 minutes Number of Risk Factors 1 10/20/24 09:55 PONV Score Low Risk 10/20/24 09:55 Height Weight Height Weight: Anesthesia: Height Weight Height 5 ft 7 in 10/19/24 12:17 Respiratory Assessment Respiratory Assessment - salesperson terrazzo tiles: Respiratory Tract Infection Hx - salesperson terrazzo tiles Hx Respiratory Tract Infection Yes: CURRENT CHEST COLD 10/20/24 09:55 STOP Sleep Apnea STOP Sleep Apnea - salesperson terrazzo tiles: STOP Sleep Apnea - salesperson terrazzo tiles Hx Hypertension No 10/20/24 09:55 Hx Sleep Apnea No 10/20/24 09:55 CPAP No 04/29/21 12:37 BIPAP Do you snore loudly (louder No 10/20/24 09:55 than talking or can be heard Do you often feel tired/ No 10/20/24 09:55 fatigued/ sleepy during daytime? Has anyone observed you stop No 10/20/24 09:55 breathing during sleep? STOP Results Negative 10/20/24 09:55 QUESTION #5 FULL TEXT : Do you snore loudly (louder than talking or can be heard through closed doors)? 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 terrazzo tiles Tobacco Use Smoking Status Current every day smoker 10/20/24 09:55 Hx Tobacco Use Yes 10/20/24 09:55 Years Smoking Packs Smoked per Day 0.5 10/20/24 09:55 Smoking Cessation Date was within the last 15 years Hx Smoking Cessation Date Hx Smoking Cessation Counseling Hematologic Medial History Hematologic Hx - salesperson terrazzo tiles: Hematologic Medical Hx - log sawyer Hx of Blood Transfusion No 10/20/24 09:55 Hx of Transfusion in last 3 No 10/20/24 09:55 Months Date of Last Transfusion (if within last 3 months) Ever experience any problems No 10/20/24 09:55 with transfusion(s)? Specify any problems Hx of Preganancy in last 3 N/A 10/20/24 09:55 Months Nurse Filling Out Transfusion NBUCHER 10/20/24 09:55 Questions: Date: 10/20/24 10/20/24 09:55 Time: 09:57 10/20/24 09:55 Patient unable to answer at this time (ie. confused, unrespo /Reproduction History /Reproductive History - salesperson terrazzo tiles: /Reproductive Hx- salesperson terrazzo tiles Hx Now No 10/20/24 09:55 Gestational Age (in weeks): EDC: Hx Hx Para Hx Section SAB No 10/20/24 09:55 PFSH Medical History (Updated 10/20/24 @ 10:04 by Yessi Branch) Dietary restriction Esophageal tear Smoker Chest pain Asthma Depression Anxiety Wears glasses Marijuana use Restless legs History of gastritis Former smoker History of pain when walking History of edema Hx of fracture of tibia Asthma History of GERD History of substance abuse Depression SOB (shortness of breath) Schizoaffective disorder, bipolar type History of alcohol abuse Bipolar 1 disorder Anxiety Home Medications ???Medication ???Instructions ???Recorded ???Last Taken ???Type buspirone 10 mg tablet 10 mg PO TID 07/11/24 Unknown Hist ory prazosin 1 mg capsule 1 mg PO QHS 07/11/24 Unknown Histo ry esomeprazole magnesium 40 mg 40 mg PO BID #60 caps 09/15/24 Unk nown Rx capsule,delayed release dicyclomine 20 mg tablet 20 mg PO BID PRN abdominal pain Unknown Rx #30 tabs albu (more content not included)... Normal [facility] Chest PA and Lateralon 10-19 Chest PA and Lateral [facility] Imaging Services [address] [place] [address] [id number] Chest PA and Lateral MR#: [id number] Acct: [id number] Name: MATTY WHITLOCK Rep #: [id number] : 1990 M 34 From: Sean simmons MD PCP: Dr. Laine Dye MD Status: REG ER Study: Chest PA and Lateral Date of Exam: 10/19/24 Exam# [id number] Ordering Dr: Lester Aguilar DO PROCEDURE: CHEST PA AND LATERAL 10/19/2024 REASON FOR EXAM: SOB TECHNIQUE: CHEST PA AND LATERAL COMPARISON: Prior study dated September 03, 2022. FINDINGS: Hardware: None Heart: The heart size is normal. Mediastinum: The mediastinal contour is unremarkable. Lungs: The lungs are clear. Bones: The bones are unremarkable. RAD/Chest PA and Lateral IMPRESSION: NO ACUTE FINDINGS. Reading Location: [id number] CC: Dr. Laine Dye MD; Dr. Lester Aguilar DO Moveman: Signed Normal [facility] Emergency Department Summary on 10-19-2024 Emergency Department Summary [facility] Medical Records Department [address] [place] [address] Emergency Department Summary 10/19/24 MR#: [id number] Acct: [id number] Name: MATTY WHITLOCK Rep #: [id number] : 1990 34 From: Lester Aguilar DO PCP: Dr. Laine Dye MD Status:REG ER Location: ED HPI History of Present Illness Chief Complaint: Anxiety Narrative Narrative: Patient is a 34-year-old male with past medical history of anxiety, depression, gastritis, GERD, bipolar disorder who presents to the emergency department the chief complaint of difficulty breathing. He states that he supposed get a scope in 2 days for concern of gastritis. He states that he recently on the had his second injection of his Invega and noted they changed him from the pill as the pill was not being digested properly. He states that he just feels like he is having difficulty breathing. Patient denies any recent travel history denies any sick contacts denies any history of blood clots. [facility] Medical History Asthma Depression Anxiety Wears glasses Marijuana use Restless legs History of gastritis Former smoker History of pain when walking History of edema Hx of fracture of tibia Asthma History of GERD History of substance abuse Depression SOB (shortness of breath) Schizoaffective disorder, bipolar type History of alcohol abuse Bipolar 1 disorder Anxiety Home Medications ???Medication ???Instructions ???Recorded ???Last Taken ???Type haloperidol 5 mg tablet 5 mg PO BID depressive disorder Unknown History hydroxyzine pamoate 25 mg capsule 25 mg PO BID 02/05/24 Unknown His tory lorazepam 1 mg tablet (Ativan) 1 mg PO TID PRN anxiety #10 tabs 1 Unknown Rx paliperidone 6 mg tablet,extended 6 mg PO QHS 02/05/24 Unknown Hist ory release 24 hr buspirone 10 mg tablet 10 mg PO TID 07/11/24 Unknown Hist ory clonidine HCl 0.1 mg tablet 0.1 mg PO TID 07/11/24 Unknown His tory melatonin 10 mg capsule 10 mg PO QHS 07/11/24 Unknown Hist ory nicotine 14 mg/24 hr daily 1 patch topical DAILY 07/11/24 Unk nown History transdermal patch prazosin 1 mg capsule 1 mg PO QHS 07/11/24 Unknown Histo ry esomeprazole magnesium 40 mg 40 mg PO BID #60 caps 09/15/24 Unk nown Rx capsule,delayed release dicyclomine 20 mg tablet 20 mg PO BID PRN abdominal pain Unknown Rx #30 tabs famotidine 40 mg tablet 40 mg PO QHS #30 tabs 10/17/24 Unk nown Rx albuterol sulfate 90 mcg/actuation 2 inh inhalation Q6H PRN shortne ss 10/19/24 Unknown Rx breath activated powder inhaler of breath or wheezing #1 ea (ProAir RespiClick) Allergy/AdvReac Type Severity Reaction Status Date / Time ondansetron (From Zofran) AdvReac Other Verified 08/12/24 15:28 Social History Smoking Status: Current every day smoker tobacco type: cigarettes and smokeless tobacco alcohol intake: former substance use type: does not use and other details: Former use of Marijuana ROS ROS ED ROS Narrative Constitutional: Denies fevers, chills, headaches, lightness, dizziness Eyes: Denies change in vision double vision blurry vision Cardiovascular: Denies chest pain or palpitations Respiratory: Shortness of breath and cough denies wheezing Abdomen: Denies abdominal pain nausea vomit diarrhea : Denies any urinary symptoms Neurological: Denies numbness, aches, tingling Musculoskeletal: Denies back pain Skin: Denies rashes or lesions EXAM Physical Exam Narrative Exam Narrative: General: Patient was lying in bed rest comfortably did not appear to be in acute distress Head: Atraumatic, normocephalic Eyes: PERRL bilaterally, EOMI bladder, no conjunctival injection noted Neck: Soft, supple, trachea midline Cardiovascular: Regular rate and rhythm no murmurs gallops rubs noted Respiratory: Clear to auscultation bilaterally no rales rhonchi or wheezes noted Abdomen: Soft, nondistended, nontender to palpation Extremities: +5/5 strength noted in the upper and lower extremities, radial pulse +2/4 in the right extremities, no pedal edema exam Neurological: Patient following commands knew that he was at [facility] 2024 Skin: Warm, dry, intact no rashes or lesions noted no hives noted no purpura Const Vital Signs: 10/19/24 12:17 10/19/24 15:40 10/19/24 16:14 Temperature 97.6 F L Temperature Source Temporal Pulse Rate 85 85 60 Respiratory Rate 20 H 20 H 16 Respiratory Pattern Normal Blood Pressure 111/63 133/81 H Blood Pressure Mean 79 98 Pulse Ox 99 100 Oxygen Delivery Method Room Air Room Air MDM MDM MDM Narrative Medical decision making narrative: Patient is a 34-year-old male (more content not included)... Normal [facility] 09-09-2024 36 Pt scheduled with Be cky 10/12/24 at 3:20 [place] [id number] 36 Called pt and no voicemail [facility] 36 Rx sent for Nicorett e gum per request. Nicotine patches removed from medication list. If I am seeing correctly he has not been seen in the office since October 2022. Needs to schedule a physical and fasting blood work. Normal [facility] 36 Name of caller: Matty Contact phone number: [phone] Relationship to Patient: patient Provider: Dr. Dye Practice: [facility] Chief Complaint/Reason for Call: Pt requesting a New Rx for Nicotine gum. He feels the patches doesn't help. He is requesting the higher dosage on the gum. Please advise. Best time of day caller can be reached: Any Patient advised that office/PCP has 24-48 business hours to return their call: Yes [facility] Calprotectin, Stoolon [address] 43 ug/g Normal 0-120 [facility] Comment on above: Result Comment: Conc entration Interpretation Follow-Up < 5 - 50 ug/g Normal None >50 -120 ug/g Borderline Re-evaluate in 4-6 weeks >120 ug/g Abnormal Repeat as clinically indicated Performed at: [address] [id number] Centrifugal Supervisor: Azeem Govea MD, Phone: [phone] Performed By: #### M 100.637, L9000.4220, L7000.0700, M100.6796, M100.0605 #### [facility] [address] [place], [address] Giardia Lamblia, Stool EIAon 08-24-2024 Giardia Stool Negative Normal Negative [facility] Comment on above: Result Comment: Perf ormed at: [facility] [id number] Centrifugal Supervisor: Mayur Mcfarland PhD, Phone: [phone] Performed By: #### M 100.637, L7400.3300, L7000.0700, M100.6796, M100.0605 #### [facility] [address] [place], [address] ENTERIC PATHOGEN PANEL STOOL on 08-23-2024 EP PANEL Normal Reference Ran ge = Not Detected Nucleic acid amplification test method Not detected for Campylobacter group, Salmonella species, Shigella species, Vibrio Group, Yersinia enterocolitica, EHEC (Shiga Toxin 1, Shiga Toxin 2), Norovirus Gl/Gll, and Rotavirus A. Other common stool pathogens are not detected on this panel include: Aeromonas/Plesiomonas or parasites. Order testing for these organisms separately if suspected. This is an amplified DNA test which makes it both specific and sensitive. CAMPYLOBACTER Not Detected Norovirus Not Detected Rotavirus Not Detected Salmonella Not Detected Shiga Toxin Not Detected Shigella sp. Not Detected VIBRIO Not Detected Yersinia Not Detected Normal [facility] Comment on above: Performed By: #### M 100.637, L7400.3300, L7000.0700, M100.6796, M100.0605 #### [facility] [address] [place], [place], [address] CDIFF (PCR)on 08-22-2024 CDIFF Pending [phone] [id number] Presumptive Negative *for epidemiolologic???use C. Diff PCR Negative- No toxigenic C. Diff Detected Normal [facility] Comment on above: Performed By: #### M 100.637, L7400.3300, L7000.0700, M100.6796, M100.0605 #### [facility] [address], [address] Calprotectin stoolOrdered By : Yoselyn Ceja on 08-22-2024 Calprotectin stool 43 ug/g 0-120 [facility] Comment on above: Concentration Interp retation Follow-Up< 5 - 50 ug/g Normal None>50 -120 ug/g Borderline Re-evaluate in 4-6 weeks >120 ug/g Abnormal Repeat as clinically indicatedPerformed at: [facility] [address] [id number] Director: Azeem Govea MD, Phone: [phone] Clostridium difficile detect ion by polymerase chain reactionOrdered By: Yoselyn Ceja on 08-22-2024 C. difficile DNA DINAH+probe Ql (Unsp spec) [facility] Giardia lamblia ag stool EIA Ordered By: Yoselyn Ceja on 08-22-2024 G. lamblia Ag IA Ql (Stl) Negative Negative [facility] Comment on above: Performed at: [facility] [address] [id number] Director: Mayur Mcfarland PhD, Phone: [phone] Stool Lactoferrin/WBCon 07-27 WBCST Normal Reference Ran ge = Negative Fecal WBC Lactoferrin Negative: No Fecal WBC Lactoferrin present Normal [facility] Comment on above: Performed By: #### M 100.637, L7400.3300, L7000.0700, M100.6796, M100.0605 #### [facility] [address] [facility] [place], [address] Stool lactoferrin detection by immunoassayOrdered By: Yoselyn Ceja on 08-22-2024 Lactoferrin IA Ql (Stl) [facility] Gastroenterology Visit Repor ton 08-18-2024 Gastroenterology Visit Report [facility] Gastroenterology [address] [place] [address] OFFICE VISIT Date of Service: 08/18/24 MR#: [id number] Acct: [id number] Name: MATTY WHITLOCK Rep #: [id number] : 1990 Provider: NORMA Rahman Age/Sex: 34/M Location: [facility] Status: Signed Intake Vital Signs 07/11/24 10:53 08/12/24 15:26 Height 5 ft 7 in 5 ft 7 in Intake Visit Reasons: ED follow up Chief Complaint: epigastric pain Allergies ondansetron (From Zofran) Adverse Reaction (Verified 08/12/24 15:28) Other Medications ???Medication ???Instructions ???Recorded ???Confirmed ???Type haloperidol 5 mg tablet 5 mg PO BID depressive disorder 02/05/24 History hydroxyzine pamoate 25 mg capsule 25 mg PO BID 02/05/24 02/05/24 Hi story lorazepam 1 mg tablet (Ativan) 1 mg PO TID PRN anxiety #10 tabs 1 Rx paliperidone 6 mg tablet,extended 6 mg PO QHS 02/05/24 02/05/24 His tory release 24 hr buspirone 10 mg tablet 10 mg PO TID 07/11/24 History clonidine HCl 0.1 mg tablet 0.1 mg PO TID 07/11/24 History melatonin 10 mg capsule 10 mg PO QHS 07/11/24 History nicotine 14 mg/24 hr daily 1 patch topical DAILY 07/11/24 Hi story transdermal patch prazosin 1 mg capsule 1 mg PO QHS 07/11/24 History pantoprazole 20 mg tablet,delayed 20 mg PO BID 08/18/24 08/18/24 Hi story release Nurse's Note: OV Pt here to with complaints of n/v/d, abdominal pain, gas, bloating and indigestion. Reports diarrhea with urgency and abdominal pain that is causing him to have anxiety. Pt reports his PCP started him on pantoprazole daily and finds it to be helping a some. [facility] Medical History Asthma Depression Anxiety Wears glasses Marijuana use Restless legs History of gastritis Former smoker History of pain when walking History of edema Hx of fracture of tibia Asthma History of GERD History of substance abuse Depression SOB (shortness of breath) Schizoaffective disorder, bipolar type History of alcohol abuse Bipolar 1 disorder Anxiety Social History Smoking Status: Current every day smoker tobacco type: cigarettes and smokeless tobacco alcohol intake: former substance use type: does not use and other details: Former use of Marijuana HPI HPI Chief Complaint: epigastric pain Details: MATTY WHITLOCK, is a 34 M who presents to the office today for f/u. [facility]GI established in 2019 with abd pain. EGD 01.02.22 - LA Grade B reflux esophagitis. Biopsied. - Non-obstructing Schatzki ring. - Erythematous mucosa in the antrum. Biopsied. - Erythematous duodenopathy. Biopsied. GES; not completed [facility] ED 07.21.24 with abd pain and anxiety. Work up with mild leukocytosis with a left shift. Rectal exam with blood OV 08.18.24 Pt here today to re establish care with [facility]. Pt has been stable on Nexium for a few years however a few weeks ago he started to have epigastric pain again. He has been seen in the ER for a few occasions for this with an unremarkable work up. His PCP switched him to pantoprazole 20 mg BID about a week ago. It was not helping at first but he feels it is now. He endorses diarrhea since the epigastric pain started. He says its all day but less than 5x per day. It is soft and liquid. He did notice some bright red blood a few days ago but this went away. ROS Const Constitutional: Positive for fatigue and weakness; No fever(s) or weight change ENT ENT: No difficulty swallowing Gastro GI: Positive for abdominal pain, bloating, diarrhea, heartburn, excessive flatus and nausea/dyspepsia; No belching, change in bowel habits, change in stool character, coffee ground emesis, constipation, cramping, difficulty swallowing, feeling full early, incontinent of stools, Vomiting blood/hemate mesis, Blood in stool, loose stools, Black,tarry stools, pain with swallowing, vomiting or other Musc Musculoskeletal: Positive for muscle cramps and muscle weakness; No joint pain Skin Skin: No yellowing of the eye or itchy eyes Neuro Neurology: Positive for weakness Psych Psychiatric: Positive for anxiety and Positive for depression Endo Endocrine: Positive for fatigue; No weight change Aller/Imm Allergy/Immunologic: No itchy eyes Arturo/Lymp Hematologic/Lymphatic: No easy bleeding or easy bruising Exam Const General: cooperative and comfortable Nutritional Appearance: average body habitus and well nourished HENMT Head: normal to inspection Ears: hearing grossly normal bilaterally Nose: external nose normal Face and sinus: normal facial exam Mouth: oral mucosae normal Throat: posterior oropharynx normal Eyes General: appearance normal, both eyes and all related structures (more content not included)... [facility] 12 Lead EKGon 08-12-2024 [address] [facility] Cardiovascular Services [address] [place] [address] 12 Lead EKG 08/12/24 1537 MR#: [id number] Acct: [id number] Name: MATTY WHITLOCK Rep #: [id number] : 1990 34 From: Peng Olivas MD Attending Dr: Status: DEP ER Ordering Dr: Provider,Ed P. Date: 08/12/24 Location: ED Sex: M C Admitted: Test Reason : CP Blood Pressure : */* mmHG Vent. Rate : 77 BPM Atrial Rate : 77 BPM P-R Int : 166 ms QRS Dur : 100 ms QT Int : 366 ms P-R-T Axes : 40 10 12 degrees QTcB Int : 414 ms Normal sinus rhythm Minimal voltage criteria for LVH, may be normal variant ( R in aVL ) Borderline ECG Confirmed by MALIK STEWART, PENG ([id number]), senior technical editor MARYANN PARKER ([id number]) on 08/15/2024 8:44:02 AM Referred By: IZA/MEHUL Confirmed By: PENG OLIVAS MD 08/15/24 0844 Date Peng Olivas MD CC: Dr. Aidan Harrison-DO Gary; Dr. Laine Dye MD; ED PHYSICIAN PROVIDER Signed [facility] 36on 08-12-2024 36 Prescription sent fo r pantoprazole 20 mg twice daily. [facility] 36 Name of caller: Jay Contact phone number: [phone] Relationship to Patient: patient Provider: Hardik Practice: [facility] Chief Complaint/Reason for Call: Patient wants to know if you change his script of nexium to protonix? He said he would like it to be 2 times daily. He said the nexium isn't working for him. Please advise Best time of day caller can be reached: any Patient advised that office/PCP has 24-48 business hours to return their call: No Normal [facility] Absolute lymphocyte countOrd ered By: Aidan Hickey on 08-12-2024 Lymphocytes Auto (Unsp spec) [#/Vol] 2.40 10*3/uL 0.83-4.51 [facility] Absolute neutrophil countOrd ered By: Aidan Hickey on 08-12-2024 Neutrophils (Bld) [#/Vol] 7.1 10*3/uL 2.0-7.7 [facility] Anion gap in Serum or Plasma Ordered By: Aidan Hickey on 08-12-2024 Anion gap [Moles/Vol] 12 mmol/L 5-15 [facility] Automated lymphocyte count a s percentage of total leukocytesOrdered By: Aidan Edelmira on 08-12-2024 Lymphocytes/100 WBC Auto (Unsp spec) 22.6 % 19-41 [facility] BUN/creatinine ratioOrdered By: [place] Edelmira on 08-12-2024 Urea nitrogen/Creatinine [Mass ratio] 5.8 mg/mg Low 10-20 [facility] Basophil percentageOrdered B y: Aidan Hickey on 08-12-2024 Basophils/100 WBC (Bld) 0.5 % 0-1 [facility] Bilirubin, totalOrdered By: Aidan Edelmira on 08-12-2024 Bilirubin [Mass/Vol] 0.34 mg/dL 0.00-1.30 [facility] CBC W/Diff, Automatedon 07-26 Absolute Lymph 2.40 X10 3/uL Normal 0.83-4.51 [facility] Comment on above: Performed By: #### L 501.2450, L500.4050, L100.0100 ####[facility] [address] [place], [address] Absolute Neut 7.1 X10 3/uL Normal 2.0-7.7 [facility] Comment on above: Performed By: #### L 501.2450, L500.4050, L100.0100 ####[facility] [address] [place], [address] Basophils/100 WBC (Bld) 0.5 % Normal 0-1 [facility] Comment on above: Performed By: #### L 501.2450, L500.4050, L100.0100 ####[facility] [address] [place], [address] Eosinophils/100 WBC (Bld) 0.9 % Normal 0-5 [facility] Comment on above: Performed By: #### L 501.2450, L500.4050, L100.0100 ####[facility] [address] [place], [address] Erythrocyte distribution width (RBC) [Ratio] 12.9 % Normal 11.6-14.6 [facility] Comment on above: Performed By: #### L 501.2450, L500.4050, L100.0100 ####[facility] [address] [place], [address] Hematocrit (Bld) [Volume fraction] 39.2 % Low 40-54 [facility] Comment on above: Performed By: #### L 501.2450, L500.4050, L100.0100 ####[facility] [address] [place], [address] Hemoglobin (Bld) [Mass/Vol] 13.8 g/dL Normal 13.0-16.5 [facility] Comment on above: Performed By: #### L 501.2450, L500.4050, L100.0100 ####[facility] [address] [place], [address] IG% 0.600 Normal 0.0-0.9 [facility] Comment on above: Result Comment: IG% - Immature Granulocytes (promyelocytes, myelocytes and metamyelocytes) > 1% indicates that a LEFT SHIFT is Present. Performed By: #### L 501.2450, L500.4050, L100.0100 ####[facility] [address] [place], [address] Lymphocytes/100 WBC (Bld) 22.6 % Normal 19-41 [facility] Comment on above: Performed By: #### L 501.2450, L500.4050, L100.0100 ####[facility] [address] [place], [address] MCH (RBC) [Entitic mass] 28.9 pg Normal 27.0-32.0 [facility] Comment on above: Performed By: #### L 501.2450, L500.4050, L100.0100 ####[facility] [address] [place], [address] MCHC (RBC) [Mass/Vol] 35.2 g/dL Normal 32-36 [facility] Comment on above: Performed By: #### L 501.2450, L500.4050, L100.0100 ####[facility] [address] [place], [address] MCV (RBC) [Entitic vol] 82.2 fL Normal 80-94 [facility] Comment on above: Performed By: #### L 501.2450, L500.4050, L100.0100 ####[facility] [address] [place], [address] Monocytes/100 WBC (Bld) 8.3 % Normal 0-10 [facility] Comment on above: Performed By: #### L 501.2450, L500.4050, L100.0100 ####[facility] [address] [place], [address] Neutrophils/100 WBC (Bld) 67.1 % Normal 47-70 [facility] Comment on above: Performed By: #### L 501.2450, L500.4050, L100.0100 ####[facility] [address] [place], [address] Nucleated RBC (Bld) [#/Vol] 0 10*3/uL Normal 0-5 [facility] Comment on above: Performed By: #### L 501.2450, L500.4050, L100.0100 ####[facility] [address] [place], [address] Platelet mean volume (Bld) [Entitic vol] 10.1 fL Normal 6.2-12.0 [facility] Comment on above: Performed By: #### L 501.2450, L500.4050, L100.0100 ####[facility] [address] [place], [address] Platelets (Bld) [#/Vol] 249 10*3/uL Normal 150-450 [facility] Comment on above: Performed By: #### L 501.2450, L500.4050, L100.0100 ####[facility] [address] [place], [address] RBC (Bld) [#/Vol] 4.77 10*6/uL Normal 4.6-6.2 [facility] Comment on above: Performed By: #### L 501.2450, L500.4050, L100.0100 ####[facility] [address] [place], [address] RDW SD 38.6 fl Normal 35.1-43.9 [facility] Comment on above: Performed By: #### L 501.2450, L500.4050, L100.0100 ####[facility] [address] [place], [address] WBC (Bld) [#/Vol] 10.6 10*3/uL Normal 4.4-11.0 [facility] Comment on above: Performed By: #### L 501.2450, L500.4050, L100.0100 ####[facility] [address] [place], [address] Carbon dioxide, total [Moles /volume] in Central venous bloodOrdered By: Aidan Hickey on 08-12-2024 CO2 [Moles/Vol] 23.1 mmol/L 21.0-32.0 [facility] Chloride assayOrdered By: Maikol Hickey on 08-12-2024 Chloride [Moles/Vol] 98 mmol/L 98-108 [facility] Comprehensive Metabolic Prof ilon 08-12-2024 Albumin [Mass/Vol] 4.8 g/dL Normal 3.5-5.0 [facility] Comment on above: Performed By: #### L 501.2450, L500.4050, L100.0100 ####[facility] [address] [place], [address] Albumin/Globulin [Mass ratio] 2.0 {ratio} Normal 0.9-2.4 [facility] Comment on above: Performed By: #### L 501.2450, L500.4050, L100.0100 ####[facility] [address] [place], [address] ALK PHOS 64 U/L Normal 40-129 [facility] Comment on above: Performed By: #### L 501.2450, L500.4050, L100.0100 ####[facility] [address] [place], [address] ALT [Catalytic activity/Vol] 26 U/L Normal <=46 [facility] Comment on above: Performed By: #### L 501.2450, L500.4050, L100.0100 ####[facility] [address] [place], [address] AST [Catalytic activity/Vol] 24 U/L Normal <=37 [facility] Comment on above: Performed By: #### L 501.2450, L500.4050, L100.0100 ####[facility] [address] [place], [address] Bilirubin [Mass/Vol] 0.34 mg/dL Normal 0.00-1.30 [facility] Comment on above: Performed By: #### L 501.2450, L500.4050, L100.0100 ####[facility] [address] [place], [address] BUN/CRE 5.8 RATIO Low 10-20 [facility] Comment on above: Performed By: #### L 501.2450, L500.4050, L100.0100 ####[facility] [address] [place], [address] Calcium [Mass/Vol] 9.5 mg/dL Normal 7.6-11.0 [facility] Comment on above: Performed By: #### L 501.2450, L500.4050, L100.0100 ####[facility] [address] [place], [address] Chloride [Moles/Vol] 98 mmol/L Normal 98-108 [facility] Comment on above: Performed By: #### L 501.2450, L500.4050, L100.0100 ####[facility] [address] [place], [address] CO2 [Moles/Vol] 23.1 mmol/L Normal 21.0-32.0 [facility] Comment on above: Performed By: #### L 501.2450, L500.4050, L100.0100 ####[facility] [address] [place], [address] Creatinine [Mass/Vol] 0.93 mg/dL Normal 0.70-1.20 [facility] Comment on above: Performed By: #### L 501.2450, L500.4050, L100.0100 ####[facility] [address] [place], [address] ECRCL 122.09 ml/min Normal 50-250 [facility] Comment on above: Performed By: #### L 501.2450, L500.4050, L100.0100 ####[facility] [address] [place], [address] GAP 12 Normal 5-15 [facility] Comment on above: Performed By: #### L 501.2450, L500.4050, L100.0100 ####[facility] [address] [place], [address] GFR/1.73 sq M.predicted among non-blacks MDRD (S/P/Bld) [Vol rate/Area] 112 mL/min/{1.73_m2} Normal >60 [facility] Comment on above: Result Comment: mL/m in/1.73m2 CKD-EPI Creatinine Equation (2020) Performed By: #### L 501.2450, L500.4050, L100.0100 ####[facility] [address] [place], [address] Globulin (S) [Mass/Vol] 2.4 g/dL Normal 2.2-4.2 [facility] Comment on above: Performed By: #### L 501.2450, L500.4050, L100.0100 ####[facility] [address] [place], [address] Glucose [Mass/Vol] 104 mg/dL High 70-99 [facility] Comment on above: Performed By: #### L 501.2450, L500.4050, L100.0100 ####[facility] [address] [place], [address] Potassium [Moles/Vol] 3.9 mmol/L Normal 3.3-5.1 [facility] Comment on above: Performed By: #### L 501.2450, L500.4050, L100.0100 ####[facility] [address] [place], [address] Sodium [Moles/Vol] 133 mmol/L Normal 133-145 [facility] Comment on above: Performed By: #### L 501.2450, L500.4050, L100.0100 ####[facility] [address] [place], [address] T PROT 7.2 g/dL Normal 5.9-8.4 [facility] Comment on above: Performed By: #### L 501.2450, L500.4050, L100.0100 ####[facility] [address] [place], [address] Urea nitrogen [Mass/Vol] 5 mg/dL Normal 4-19 [facility] Comment on above: Performed By: #### L 501.2450, L500.4050, L100.0100 ####[facility] [address] [place], [address] Emergency Department Summary on 08-12-2024 Emergency Department Summary [facility] Medical Records Department [address] [address] Emergency Department Summary 08/12/24 MR#: [id number] Acct: [id number] Name: MATTY WHITLOCK Rep #: [id number] : 1990 34 From: Aidan Hickey DO PCP: Dr. Laine Dye MD Status:DEP ER Location: ED HPI History of Present Illness Chief Complaint: Anxiety Narrative Narrative: Chief complaint and HPI: 34-year-old male with past medical history of anxiety, depression, GERD, bipolar disorder, schizoaffective disorder, previous alcohol abuse presents for evaluation of epigastric/right upper quadrant burning and pain. Patient states that he recently had his GERD medication changed 2 days ago and since then has been having increased epigastric/right upper quadrant burning pain. He states that this is causing his anxiety to increase. When I asked him if the pain is sharp or crampy. He states no it feels like inflammation. He denies any fever, chills, shortness of breath, chest pain, nausea, vomiting, diarrhea, constipation, dysuria. States that he has been sober as he is in sober living and frequently gets drug tested. He denies any suicidal or homicidal ideation. Denies any visual or auditory hallucinations. Review of systems: See HPI Medications: As listed on the chart Allergies: As listed on the chart PFSH: Per chart Vital signs: As listed on the chart. Reviewed. Physical exam: Gen: A O x3, anxious Head: Normocephalic, atraumatic Eyes: No sclera icterus, conjunctiva clear, PERRL, EOMI ENT: Moist mucous membranes Neck: Trachea midline, No JVD CV: RRR, no murmurs, no peripheral edema Resp: Lungs CTA BL, no w/r/c GI: Abd soft, non-distended, non-tender, no r/r/g Musc: Full ROM, no deformity Skin: Warm, dry Neuro: Alert, oriented, grossly intact, sensation intact Psych: Cooperative, anxious [facility] Medical History Asthma Depression Anxiety Wears glasses Marijuana use Restless legs History of gastritis Former smoker History of pain when walking History of edema Hx of fracture of tibia Asthma History of GERD History of substance abuse Depression SOB (shortness of breath) Schizoaffective disorder, bipolar type History of alcohol abuse Bipolar 1 disorder Anxiety Home Medications ???Medication ???Instructions ???Recorded ???Last Taken ???Type haloperidol 5 mg tablet 5 mg PO BID depressive disorder Unknown History hydroxyzine pamoate 25 mg capsule 25 mg PO BID 02/05/24 Unknown His tory lorazepam 1 mg tablet (Ativan) 1 mg PO TID PRN anxiety #10 tabs 1 Unknown Rx paliperidone 6 mg tablet,extended 6 mg PO QHS 02/05/24 Unknown Hist ory release 24 hr buspirone 10 mg tablet 10 mg PO TID 07/11/24 Unknown Hist ory clonidine HCl 0.1 mg tablet 0.1 mg PO TID 07/11/24 Unknown His tory esomeprazole magnesium 20 mg 20 mg PO BID 07/11/24 Unknown Hist ory capsule,delayed release esomeprazole magnesium 40 mg 40 mg PO DAILY #30 caps 07/11/24 U nknown Rx capsule,delayed release (Nexium) melatonin 10 mg capsule 10 mg PO QHS 07/11/24 Unknown Hist ory nicotine 14 mg/24 hr daily 1 patch topical DAILY 07/11/24 Unk nown History transdermal patch prazosin 1 mg capsule 1 mg PO QHS 07/11/24 Unknown Histo ry Allergy/AdvReac Type Severity Reaction Status Date / Time ondansetron (From Zofran) AdvReac Other Verified 08/12/24 15:28 Family History no significant family his Social History Smoking Status: Current every day smoker tobacco type: cigarettes and smokeless tobacco alcohol intake: former substance use type: does not use and other details: Former use of Marijuana EXAM Physical Exam Const Vital Signs: 08/12/24 15:26 08/12/24 17:26 08/12/24 19:00 Temperature 98.2 F Temperature Source Oral Pulse Rate 89 64 77 Respiratory Rate 16 19 H Blood Pressure 131/89 H 104/61 Blood Pressure Mean 103 75 Pulse Ox 98 98 Oxygen Delivery Method Room Air Room Air 08/12/24 20:38 08/12/24 20:38 Temperature 98.2 F 98.2 F Temperature Source Pulse Rate 77 77 Respiratory Rate 16 16 Blood Pressure 104/61 104/61 Blood Pressure Mean 75 75 Pulse Ox 98 98 Oxygen Delivery Method MDM MDM MDM Narrative Medical decision making narrative: 34-year-old male with past medical history of anxiety, depression, GERD, bipolar disorder, schizoaffective disorder, previous alcohol abuse presents for evaluation of epigastric/right upper quadrant burning and pain. Patient recently just had his GERD medication changed. Vitals unremarkable. Physical exam unremarkable except for anxiety. Differential diagnosis includes but is not limited (more content not included)... Normal [facility] Eosinophil percentageOrdered By: Aidan Hickey on 08-12-2024 Eosinophils/100 WBC (Bld) 0.9 % 0-5 [facility] Erythrocyte distribution wid th (RBC) [Ratio]Ordered By: Aidan Hickey on 08-12-2024 Erythrocyte distribution width (RBC) [Entitic vol] 38.6 fL 35.1-43.9 [facility] Erythrocyte distribution wid th ratioOrdered By: [facility] on 08-12-2024 Erythrocyte distribution width (RBC) [Ratio] 12.9 % 11.6-14.6 [facility] Erythrocyte distribution wid th standard deviationOrdered By: [facility] Centerkwasi Vega on 08-12-2024 Erythrocyte distribution width (RBC) [Ratio] 38.6 fl 35.1-43.9 [facility] Estimation of creatinine roddy aranceOrdered By: Aidan Hickey on 08-12-2024 Estimated Creatinine Clearance Calc 122.09 ml/min 50-250 [facility] GFR/1.73 sq M.predicted jessee g non-blacks MDRD (S/P/Bld) [Vol rate/Area]Ordered By: Aidan Hickey on 08-12-2024 Estimated GFR (MDRD) Non-Af Amer 112 >60 [facility] Comment on above: mL/min/1.73m2 CKD-EP I Creatinine Equation (2020) Glomerular filtration rate ( GFR) estimation/1.73 sq m using serum, plasma, or whole bOrdered By: Aidan Hickey on 08-12-2024 GFR/1.73 sq M.predicted among non-blacks MDRD (S/P/Bld) [Vol rate/Area] 112 mL/min/{1.73_m2} >60 [facility] Comment on above: mL/min/1.73m2 CKD-EP I Creatinine Equation (2020) Hematocrit Auto (Bld) [Volum e fraction]Ordered By: Aidan Hickey on 08-12-2024 Hematocrit (Bld) [Volume fraction] 39.2 % Low 40-54 [facility] Hemoglobin measurementOrdere d By: Aidan Hickey on 08-12-2024 Hemoglobin (Bld) [Mass/Vol] 13.8 g/dL 13.0-16.5 [facility] Immature granulocytes/100 WB C Auto (Bld)Ordered By: [facility]an[facility] on 08-12-2024 Immature granulocytes/100 WBC (Bld) 0.600 % 0.0-0.9 [facility] Comment on above: IG% - Immature Granu locytes (promyelocytes, myelocytes and metamyelocytes) > 1% indicates that a LEFT SHIFT is Present. Laboratory - Chemistry and C hemistry - challengeOrdered By: Aidanletty Hickey on 08-12-2024 AST [Catalytic activity/Vol] 24 U/L <38 [facility] Lipaseon 08-12-2024 Lipase [Catalytic activity/Vol] 30 U/L Normal 13-75 [facility] Comment on above: Result Comment: Ira morales note: LIPASE revised reference range effective 22. New Lipase methodology. Expected to produce lower values than the previous assay method. NEW Reference Range: 13 - 75 U/L Performed By: #### L 501.2450, L500.4050, L100.0100 ####[facility] [address] [place], [address] Lipase measurementOrdered By : [facility] CenterkwasiGary on 08-12-2024 Lipase [Catalytic activity/Vol] 30 U/L 13-75 [facility] Comment on above: Please note:LIPASE r evised reference range effective 22. New Lipase methodology. Expected to produce lower values than the previous assay method. NEW Reference Range: 13 - 75 U/L Lymphocytes Auto (Unsp spec) [#/Vol]Ordered By: Aidan Hickey on 08-12-2024 Lymphocytes (Bld) [#/Vol] 2.40 10*3/uL 0.83-4.51 [facility] Lymphocytes/100 WBC Auto (Un sp spec)Ordered By: Aidanletty Hickey on 08-12-2024 Lymphocytes/100 WBC (Bld) 22.6 % 19-41 [facility] MCV (mean corpuscular volume ) determinationOrdered By: Aidan Hickey on 08-12-2024 MCV (RBC) [Entitic vol] 82.2 fL 80-94 [facility] Mean corpuscular hemoglobin (MCH) determinationOrdered By: Aidan Hickey on 08-12-2024 MCH (RBC) [Entitic mass] 28.9 pg 27.0-32.0 [facility] Mean corpuscular hemoglobin concentration (MCHC) determinationOrdered By: Aidan Hickey on 08-12-2024 MCHC (RBC) [Mass/Vol] 35.2 g/dL 32-36 [facility] Mean platelet volume determi nationOrdered By: Aidan Hickey on 08-12-2024 Platelet mean volume (Bld) [Entitic vol] 10.1 fL 6.2-12.0 [facility] Monocyte percentageOrdered B y: Aidan Hickey on 08-12-2024 Monocytes/100 WBC (Bld) 8.3 % 0-10 [facility] Neutrophil percentageOrdered By: Aidan Hickey on 08-12-2024 Neutrophils/100 WBC (Bld) 67.1 % 47-70 [facility] Nucleated red blood cell per centageOrdered By: Aidan Hickey on 08-12-2024 Nucleated RBC/100 WBC (Bld) [Ratio] 0 % 0-5 [facility] Platelet countOrdered By: Maikol Hickey on 08-12-2024 Platelets (Bld) [#/Vol] 249 10*3/uL 150-450 [facility] Potassium (Unsp spec) [Mass/ Vol]Ordered By: Aidan Hickey on 08-12-2024 Potassium [Moles/Vol] 3.9 mmol/L 3.3-5.1 [facility] Potassium measurement (mass/ volume)Ordered By: Aidan Hickey on 08-12-2024 Potassium (Unsp spec) [Mass/Vol] 3.9 mmol/L 3.3-5.1 [facility] RBC Auto (Bld) [#/Vol]Ordere d By: Aidan Hickey on 08-12-2024 RBC (Bld) [#/Vol] 4.77 10*6/uL 4.6-6.2 [facility] Serum creatinine measurement (mass/volume)Ordered By: Aidan Hickey on 08-12-2024 Creatinine [Mass/Vol] 0.93 mg/dL 0.70-1.20 [facility] Serum globulin measurementOr dered By: Aidan Hickey on 08-12-2024 Globulin (S) [Mass/Vol] 2.4 g/dL 2.2-4.2 [facility] Serum glucose measurement (m ass/volume)Ordered By: Aidan Hickey on 08-12-2024 Glucose [Mass/Vol] 104 mg/dL High 70-99 [facility] Serum or plasma alanine montez otransferase (ALT) measurementOrdered By: Aidan Hickey on 08-12-2024 ALT [Catalytic activity/Vol] 26 U/L <47 [facility] Serum or plasma albumin simone urement (mass/volume)Ordered By: Aidan Vega on 08-12-2024 Albumin [Mass/Vol] 4.8 g/dL 3.5-5.0 [facility] Serum or plasma albumin/glob ulin mass ratioOrdered By: Aidan Hickey on 08-12-2024 Albumin/Globulin [Mass ratio] 2.0 {ratio} 0.9-2.4 [facility] Serum or plasma alkaline mellissa sphatase measurementOrdered By: Aidan Hickey on 08-12-2024 ALP [Catalytic activity/Vol] 64 U/L 40-129 [facility] Serum or plasma calcium simone urement (mass/volume)Ordered By: Aidan Vega on 08-12-2024 Calcium [Mass/Vol] 9.5 mg/dL 7.6-11.0 [facility] Serum or plasma urea nitroge n measurement (mass/volume)Ordered By: Aidan Hickey on 08-12-2024 Urea nitrogen [Mass/Vol] 5 mg/dL 4-19 [facility] Sodium levelOrdered By: Mane l Edelmira on 08-12-2024 Sodium [Moles/Vol] 133 mmol/L 133-145 [facility] Total proteinOrdered By: Oj saenz Edelmira on 08-12-2024 Protein [Mass/Vol] 7.2 g/dL 5.9-8.4 [facility] White blood cell (WBC) count Ordered By: Aidan Hickey on 08-12-2024 WBC (Bld) [#/Vol] 10.6 10*3/uL 4.4-11.0 [facility] 36on 08-04-2024 36 Medication name: esomeprazole (NexIUM) Medication dosage: 20mg Monthly quantity needed: 60 How many day supply requestin days Medication route: oral (PO) Medication administration time(s): 2 times a day (BID) If taking medication PRN, reason for taking medication: N/A If this is a controlled substance do you receive this or any other controlled medication from any other doctor or facility: N/A Ordering provider: Dr Dye Date of last office visit: 11/14/24 Date of next office visit: na Date of last refill: (see medication tab): 04/14/24 Updated/Validated preferred pharmacy: Yes Patient instructed to contact the pharmacy prior to picking up the medication: Yes [facility] 36on 07-20-2024 36 Rx sent [facility] 36 Name of caller: Matty Contact phone number: [phone] Relationship to Patient: patient Provider: Hardik Practice: [facility] Chief Complaint/Reason for Call: In reference to 06/15/23 TE, patient is requesting the 7 mg Nicotine patches be called in to: [id number] - [place]- [address] Please advise. Best time of day caller can be reached: any Patient advised that office/PCP has 24-48 business hours to return their call: No [facility] Absolute lymphocyte countOrd ered By: Gricel Talley on 07-11-2024 Lymphocytes Auto (Unsp spec) [#/Vol] 1.47 10*3/uL 0.83-4.51 [facility] Absolute neutrophil countOrd ered By: Gricel Talley on 07-11-2024 Neutrophils (Bld) [#/Vol] 9.5 10*3/uL High 2.0-7.7 [facility] Anion gap in Serum or Plasma Ordered By: Gricel Talley on 07-11-2024 Anion gap [Moles/Vol] 12 mmol/L 5-15 [facility] Automated lymphocyte count a s percentage of total leukocytesOrdered By: Gricel Talley on 07-11-2024 Lymphocytes/100 WBC Auto (Unsp spec) 12.3 % Low 19-41 [facility] BUN/creatinine ratioOrdered By: Gricel Talley on 07-11-2024 Urea nitrogen/Creatinine [Mass ratio] 7.2 mg/mg Low 10-20 [facility] Basophil percentageOrdered B y: Gricel Talley on 07-11-2024 Basophils/100 WBC (Bld) 0.3 % 0-1 [facility] Bilirubin, totalOrdered By: Gricel Talley on 07-11-2024 Bilirubin [Mass/Vol] 0.24 mg/dL 0.00-1.30 [facility] CBC W/Diff, Automatedon 06-25 Absolute Lymph 1.47 X10 3/uL Normal 0.83-4.51 [facility] Comment on above: Performed By: #### L 500.4050, L501.2450, L100.0100 ####[facility] [address] [place], [address] Absolute Neut 9.5 X10 3/uL High 2.0-7.7 [facility] Comment on above: Performed By: #### L 500.4050, L501.2450, L100.0100 ####[facility] [address] [place], [address] Basophils/100 WBC (Bld) 0.3 % Normal 0-1 [facility] Comment on above: Performed By: #### L 500.4050, L501.2450, L100.0100 ####[facility] [address] [place], [address] Eosinophils/100 WBC (Bld) 0.3 % Normal 0-5 [facility] Comment on above: Performed By: #### L 500.4050, L501.2450, L100.0100 ####[facility] [address] [place], [address] Erythrocyte distribution width (RBC) [Ratio] 13.2 % Normal 11.6-14.6 [facility] Comment on above: Performed By: #### L 500.4050, L501.2450, L100.0100 ####[facility] [address] [place], [address] Hematocrit (Bld) [Volume fraction] 41.8 % Normal 40-54 [facility] Comment on above: Performed By: #### L 500.4050, L501.2450, L100.0100 ####[facility] [address] [place], [address] Hemoglobin (Bld) [Mass/Vol] 14.1 g/dL Normal 13.0-16.5 [facility] Comment on above: Performed By: #### L 500.4050, L501.2450, L100.0100 ####[facility] [address] [place], [address] IG% 0.800 Normal 0.0-0.9 [facility] Comment on above: Result Comment: IG% - Immature Granulocytes (promyelocytes, myelocytes and metamyelocytes) > 1% indicates that a LEFT SHIFT is Present. Performed By: #### L 500.4050, L501.2450, L100.0100 ####[facility] [address] [place], [address] Lymphocytes/100 WBC (Bld) 12.3 % Low 19-41 [facility] Comment on above: Performed By: #### L 500.4050, L501.2450, L100.0100 ####[facility] [address] [place], [address] MCH (RBC) [Entitic mass] 29.0 pg Normal 27.0-32.0 [facility] Comment on above: Performed By: #### L 500.4050, L501.2450, L100.0100 ####[facility] [address] [place], [address] MCHC (RBC) [Mass/Vol] 33.7 g/dL Normal 32-36 [facility] Comment on above: Performed By: #### L 500.4050, L501.2450, L100.0100 ####[facility] [address] [place], [address] MCV (RBC) [Entitic vol] 85.8 fL Normal 80-94 [facility] Comment on above: Performed By: #### L 500.4050, L501.2450, L100.0100 ####[facility] [address], [address] Monocytes/100 WBC (Bld) 6.3 % Normal 0-10 [facility] Comment on above: Performed By: #### L 500.4050, L501.2450, L100.0100 ####[facility] [address] [place], [address] Neutrophils/100 WBC (Bld) 80.0 % High 47-70 [facility] Comment on above: Performed By: #### L 500.4050, L501.2450, L100.0100 ####[facility] [address] [place], [address] Nucleated RBC (Bld) [#/Vol] 0 10*3/uL Normal 0-5 [facility] Comment on above: Performed By: #### L 500.4050, L501.2450, L100.0100 ####[facility] [address] [place], [address] Platelet mean volume (Bld) [Entitic vol] 10.5 fL Normal 6.2-12.0 [facility] Comment on above: Performed By: #### L 500.4050, L501.2450, L100.0100 ####[facility] [address] [place], [address] Platelets (Bld) [#/Vol] 268 10*3/uL Normal 150-450 [facility] Comment on above: Performed By: #### L 500.4050, L501.2450, L100.0100 ####[facility] [address] [place], [address] RBC (Bld) [#/Vol] 4.87 10*6/uL Normal 4.6-6.2 [facility] Comment on above: Performed By: #### L 500.4050, L501.2450, L100.0100 ####[facility] [address] [place], [address] RDW SD 40.7 fl Normal 35.1-43.9 [facility] Comment on above: Performed By: #### L 500.4050, L501.2450, L100.0100 ####[facility] [address] [place], [address] WBC (Bld) [#/Vol] 11.9 10*3/uL High 4.4-11.0 [facility] Comment on above: Performed By: #### L 500.4050, L501.2450, L100.0100 ####[facility] [address] [place], [address] Carbon dioxide, total [Moles /volume] in Central venous bloodOrdered By: Gricel Talley on 07-11-2024 CO2 [Moles/Vol] 23.5 mmol/L 21.0-32.0 [facility] Chloride assayOrdered By: Aurelio Talley on 07-11-2024 Chloride [Moles/Vol] 103 mmol/L 98-108 [facility] Comprehensive Metabolic Prof ilon 07-11-2024 Albumin [Mass/Vol] 4.9 g/dL Normal 3.5-5.0 [facility] Comment on above: Performed By: #### L 500.4050, L501.2450, L100.0100 ####[facility] [address] [place], [address] Albumin/Globulin [Mass ratio] 1.9 {ratio} Normal 0.9-2.4 [facility] Comment on above: Performed By: #### L 500.4050, L501.2450, L100.0100 ####[facility] [address] [place], [address] ALK PHOS 60 U/L Normal 40-129 [facility] Comment on above: Performed By: #### L 500.4050, L501.2450, L100.0100 ####[facility] [address] [place], [address] ALT [Catalytic activity/Vol] 54 U/L High <=46 [facility] Comment on above: Performed By: #### L 500.4050, L501.2450, L100.0100 ####[facility] [address] [place], [address] AST [Catalytic activity/Vol] 33 U/L Normal <=37 [facility] Comment on above: Performed By: #### L 500.4050, L501.2450, L100.0100 ####[facility] [address] [place], [address] Bilirubin [Mass/Vol] 0.24 mg/dL Normal 0.00-1.30 [facility] Comment on above: Performed By: #### L 500.4050, L501.2450, L100.0100 ####[facility] [address] [place], [address] BUN/CRE 7.2 RATIO Low 10-20 [facility] Comment on above: Performed By: #### L 500.4050, L501.2450, L100.0100 ####[facility] [address] [place], [address] Calcium [Mass/Vol] 10.3 mg/dL Normal 7.6-11.0 [facility] Comment on above: Performed By: #### L 500.4050, L501.2450, L100.0100 ####[facility] [address] [place], [address] Chloride [Moles/Vol] 103 mmol/L Normal 98-108 [facility] Comment on above: Performed By: #### L 500.4050, L501.2450, L100.0100 ####[facility] [address] [place], [address] CO2 [Moles/Vol] 23.5 mmol/L Normal 21.0-32.0 [facility] Comment on above: Performed By: #### L 500.4050, L501.2450, L100.0100 ####[facility] [address] [place], [address] Creatinine [Mass/Vol] 0.94 mg/dL Normal 0.70-1.20 [facility] Comment on above: Performed By: #### L 500.4050, L501.2450, L100.0100 ####[facility] [address] [place], [address] ECRCL 122.94 ml/min Normal 50-250 [facility] Comment on above: Performed By: #### L 500.4050, L501.2450, L100.0100 ####[facility] [address] [place], [address] GAP 12 Normal 5-15 [facility] Comment on above: Performed By: #### L 500.4050, L501.2450, L100.0100 ####[facility] [address] [place], [address] GFR/1.73 sq M.predicted among non-blacks MDRD (S/P/Bld) [Vol rate/Area] 110 mL/min/{1.73_m2} Normal >60 [facility] Comment on above: Result Comment: mL/m in/1.73m2 CKD-EPI Creatinine Equation (2020) Performed By: #### L 500.4050, L501.2450, L100.0100 ####[facility] [address] [place], [address] Globulin (S) [Mass/Vol] 2.6 g/dL Normal 2.2-4.2 [facility] Comment on above: Performed By: #### L 500.4050, L501.2450, L100.0100 ####[facility] [address] [place], [address] Glucose [Mass/Vol] 98 mg/dL Normal 70-99 [facility] Comment on above: Performed By: #### L 500.4050, L501.2450, L100.0100 ####[facility] [address] [place], [address] Potassium [Moles/Vol] 3.9 mmol/L Normal 3.3-5.1 [facility] Comment on above: Performed By: #### L 500.4050, L501.2450, L100.0100 ####[facility] [address] [place], [address] Sodium [Moles/Vol] 139 mmol/L Normal 133-145 [facility] Comment on above: Performed By: #### L 500.4050, L501.2450, L100.0100 ####[facility] [address], [address] T PROT 7.5 g/dL Normal 5.9-8.4 [facility] Comment on above: Performed By: #### L 500.4050, L501.2450, L100.0100 ####[facility] [address] [place], [address] Urea nitrogen [Mass/Vol] 7 mg/dL Normal 4-19 [facility] Comment on above: Performed By: #### L 500.4050, L501.2450, L100.0100 ####[facility] [address], [address] Emergency Department Summary on 07-11-2024 Emergency Department Summary [facility] Medical Records Department [address] [place] [address] Emergency Department Summary 07/11/24 MR#: [id number] Acct: [id number] Name: MATTY WHITLOCK Rep #: [id number] : 1990 34 From: Gricel Talley DO PCP: Dr. Laine Dye MD Status:REG ER Location: ED HPI HPI - GI History of Present Illness Chief Complaint: GI Bleed Informant: patient Narrative Narrative: Patient is a 34-year-old male with history of GERD, gastritis, substance abuse, schizoaffective disorder and type I bipolar disorder as well as alcohol abuse (currently in a sober living house) presenting with increasing anxiety as well as right abdominal pain and reports passage of bloody clots to his stool. Patient states that he has developed some right sided abdominal pain described as burning. He states his intestines feel inflamed. States he felt like he had to have a bowel movement and blood clots that he describes as red came out. He states after that he started feel weak and confused. He states he feels like he is coming out of his body and states his anxiety is quite severe at this point. He spends a lot of time tell me about how the nicotine patch he is wearing because if he does not wear he has severe nicotine withdraw makes him feel very anxious. He states when he was riding his bike to work this morning he felt that he was out of his body. Denies associate nausea or vomiting. Denies any prior abdominal surgeries. States his bowel movements have otherwise been normal bit off. Did not report any history of ulcerative colitis or Crohn's disease. No other complaints or concerns reported at this time. [facility] Medical History Asthma Depression Anxiety Wears glasses Marijuana use Restless legs History of gastritis Former smoker History of pain when walking History of edema Hx of fracture of tibia Asthma History of GERD History of substance abuse Depression SOB (shortness of breath) Schizoaffective disorder, bipolar type History of alcohol abuse Bipolar 1 disorder Anxiety Home Medications ???Medication ???Instructions ???Recorded ???Last Taken ???Type haloperidol 5 mg tablet 5 mg PO BID depressive disorder Unknown History hydroxyzine pamoate 25 mg capsule 25 mg PO BID 02/05/24 Unknown His tory lorazepam 1 mg tablet (Ativan) 1 mg PO TID PRN anxiety #10 tabs 1 Unknown Rx paliperidone 6 mg tablet,extended 6 mg PO QHS 02/05/24 Unknown Hist ory release 24 hr buspirone 10 mg tablet 10 mg PO TID 07/11/24 Unknown Hist ory clonidine HCl 0.1 mg tablet 0.1 mg PO TID 07/11/24 Unknown His tory esomeprazole magnesium 20 mg 20 mg PO BID 07/11/24 Unknown Hist ory capsule,delayed release esomeprazole magnesium 40 mg 40 mg PO DAILY #30 caps 07/11/24 U nknown Rx capsule,delayed release (Nexium) melatonin 10 mg capsule 10 mg PO QHS 07/11/24 Unknown Hist ory nicotine 14 mg/24 hr daily 1 patch topical DAILY 07/11/24 Unk nown History transdermal patch prazosin 1 mg capsule 1 mg PO QHS 07/11/24 Unknown Histo ry Allergy/AdvReac Type Severity Reaction Status Date / Time ondansetron (From Zofran) AdvReac Other Verified 07/11/24 10:55 Social History Smoking Status: Current every day smoker tobacco type: cigarettes and smokeless tobacco alcohol intake: former substance use type: does not use and other details: Former use of Marijuana ROS ROS ED Constitutional Constitutional ED: Denies chills or fever(s) Respiratory/Chest Respiratory/Chest: Denies cough Gastrointestinal Gastrointestinal: Reports abdominal pain and other Details: BRBPR ; Denies diarrhea or vomiting Musculoskeletal Musculoskeletal: Denies arthralgias or myalgias Neurologic Neurologic: Reports headache(s) and paresthesias Psychiatric Psychiatric: Reports anxiety; Denies depression or suicidal thoughts Hematologic/Lymphatic Hematologic/Lymphatic: Denies easy bleeding or easy bruising EXAM Physical Exam Const Vital Signs: 07/11/24 10:53 07/11/24 13:02 Temperature 98.1 F Temperature Source Temporal Pulse Rate 96 74 Respiratory Rate 15 16 Blood Pressure 137/98 H 132/87 H Blood Pressure Mean 111 102 Pulse Ox 99 99 Oxygen Delivery Method Room Air Positive well nourished and well developed General Appearance ED: well developed and NAD; Negative for pallor HEENT Reports moist mucous membranes Eyes PERRL General Eye ED: Negative for pale conjunctiva Neck supple Resp normal respiratory effort and clear to auscultation bilaterally Cardio regular rate and regular rhythm GI non-tender and non-distended GI Narrative: Scant pink blood noted on rectal exam. No (more content not included)... Normal [facility] Eosinophil percentageOrdered By: Gricel Talley on 07-11-2024 Eosinophils/100 WBC (Bld) 0.3 % 0-5 [facility] Erythrocyte distribution wid th ratioOrdered By: Gricel Talley on 07-11-2024 Erythrocyte distribution width (RBC) [Ratio] 13.2 % 11.6-14.6 [facility] Erythrocyte distribution wid th standard deviationOrdered By: Gricel Talley on 07-11-2024 Erythrocyte distribution width (RBC) [Entitic vol] 40.7 fL 35.1-43.9 [facility] Erythrocyte distribution width (RBC) [Ratio] 40.7 fl 35.1-43.9 [facility] Estimation of creatinine roddy aranceOrdered By: Gricel Talley on 07-11-2024 Estimated Creatinine Clearance Calc 122.94 ml/min 50-250 [facility] GFR/1.73 sq M.predicted jessee g non-blacks MDRD (S/P/Bld) [Vol rate/Area]Ordered By: Gricel Talley on 07-11-2024 Estimated GFR (MDRD) Non-Af Amer 110 >60 [facility] Comment on above: mL/min/1.73m2 CKD-EP I Creatinine Equation (2020) Glomerular filtration rate ( GFR) estimation/1.73 sq m using serum, plasma, or whole bOrdered By: Gricel Talley on 07-11-2024 GFR/1.73 sq M.predicted among non-blacks MDRD (S/P/Bld) [Vol rate/Area] 110 mL/min/{1.73_m2} >60 [facility] Comment on above: mL/min/1.73m2 CKD-EP I Creatinine Equation (2020) Hematocrit Auto (Bld) [Volum e fraction]Ordered By: Gricel Talley on 07-11-2024 Hematocrit (Bld) [Volume fraction] 41.8 % 40-54 [facility] Hemoglobin measurementOrdere d By: Gricel Talley on 07-11-2024 Hemoglobin (Bld) [Mass/Vol] 14.1 g/dL 13.0-16.5 [facility] Immature granulocytes/100 WB C Auto (Bld)Ordered By: Gricel Talley on 07-11-2024 Immature granulocytes/100 WBC (Bld) 0.800 % 0.0-0.9 [facility] Comment on above: IG% - Immature Granu locytes (promyelocytes, myelocytes and metamyelocytes) > 1% indicates that a LEFT SHIFT is Present. Laboratory - Chemistry and C hemistry - challengeOrdered By: Gricel Talley on 07-11-2024 AST [Catalytic activity/Vol] 33 U/L <38 [facility] Lipaseon 07-11-2024 Lipase [Catalytic activity/Vol] 27 U/L Normal 13-75 [facility] Comment on above: Result Comment: Ira morales note: LIPASE revised reference range effective 22. New Lipase methodology. Expected to produce lower values than the previous assay method. NEW Reference Range: 13 - 75 U/L Performed By: #### L 500.4050, L501.2450, L100.0100 ####[facility] [id number] [place], [address] Lipase measurementOrdered By : Gricel Talley on 07-11-2024 Lipase [Catalytic activity/Vol] 27 U/L 13-75 [facility] Comment on above: Please note:LIPASE r evised reference range effective 22. New Lipase methodology. Expected to produce lower values than the previous assay method. NEW Reference Range: 13 - 75 U/L Lower GI hemoglobin IA Ql (S tl)Ordered By: Gricel Talley on 07-11-2024 Stool Occult Blood (ADITYA) Positive Abnormal [facility] Lymphocytes Auto (Unsp spec) [#/Vol]Ordered By: Gricel Talley on 07-11-2024 Lymphocytes (Bld) [#/Vol] 1.47 10*3/uL 0.83-4.51 [facility] Lymphocytes/100 WBC Auto (Un sp spec)Ordered By: Gricel Talley on 07-11-2024 Lymphocytes/100 WBC (Bld) 12.3 % Low 19-41 [facility] MCV (mean corpuscular volume ) determinationOrdered By: Gricel Talley on 07-11-2024 MCV (RBC) [Entitic vol] 85.8 fL 80-94 [facility] Mean corpuscular hemoglobin (MCH) determinationOrdered By: Gricel Talley on 07-11-2024 MCH (RBC) [Entitic mass] 29.0 pg 27.0-32.0 [facility] Mean corpuscular hemoglobin concentration (MCHC) determinationOrdered By: Gricel Talley on 07-11-2024 MCHC (RBC) [Mass/Vol] 33.7 g/dL 32-36 [facility] Mean platelet volume determi nationOrdered By: Gricel Talley on 07-11-2024 Platelet mean volume (Bld) [Entitic vol] 10.5 fL 6.2-12.0 [facility] Monocyte percentageOrdered B y: Gricel Talley on 07-11-2024 Monocytes/100 WBC (Bld) 6.3 % 0-10 [facility] Neutrophil percentageOrdered By: Gricel Talley on 07-11-2024 Neutrophils/100 WBC (Bld) 80.0 % High 47-70 [facility] Nucleated red blood cell per centageOrdered By: Gricel Talley on 07-11-2024 Nucleated RBC/100 WBC (Bld) [Ratio] 0 % 0-5 [facility] Platelet countOrdered By: Aurelio Talley on 07-11-2024 Platelets (Bld) [#/Vol] 268 10*3/uL 150-450 [facility] Potassium (Unsp spec) [Mass/ Vol]Ordered By: Gricel Talley on 07-11-2024 Potassium [Moles/Vol] 3.9 mmol/L 3.3-5.1 [facility] Potassium measurement (mass/ volume)Ordered By: Gricel Talley on 07-11-2024 Potassium (Unsp spec) [Mass/Vol] 3.9 mmol/L 3.3-5.1 [facility] RBC Auto (Bld) [#/Vol]Ordere d By: Gricel Talley on 07-11-2024 RBC (Bld) [#/Vol] 4.87 10*6/uL 4.6-6.2 [facility] Serum creatinine measurement (mass/volume)Ordered By: Gricel Talley on 07-11-2024 Creatinine [Mass/Vol] 0.94 mg/dL 0.70-1.20 [facility] Serum globulin measurementOr dered By: Gricel Talley on 07-11-2024 Globulin (S) [Mass/Vol] 2.6 g/dL 2.2-4.2 [facility] Serum glucose measurement (m ass/volume)Ordered By: Gricel Talley on 07-11-2024 Glucose [Mass/Vol] 98 mg/dL 70-99 [facility] Serum or plasma alanine montez otransferase (ALT) measurementOrdered By: Gricel Talley on 07-11-2024 ALT [Catalytic activity/Vol] 54 U/L High <47 [facility] Serum or plasma albumin simone urement (mass/volume)Ordered By: Gricel Talley on 07-11-2024 Albumin [Mass/Vol] 4.9 g/dL 3.5-5.0 [facility] Serum or plasma albumin/glob ulin mass ratioOrdered By: Gricel Talley on 07-11-2024 Albumin/Globulin [Mass ratio] 1.9 {ratio} 0.9-2.4 [facility] Serum or plasma alkaline mellissa sphatase measurementOrdered By: Gricel Talley on 07-11-2024 ALP [Catalytic activity/Vol] 60 U/L 40-129 [facility] Serum or plasma calcium simone urement (mass/volume)Ordered By: Gricel Talley on 07-11-2024 Calcium [Mass/Vol] 10.3 mg/dL 7.6-11.0 [facility] Serum or plasma urea nitroge n measurement (mass/volume)Ordered By: Gricel Talley on 07-11-2024 Urea nitrogen [Mass/Vol] 7 mg/dL 4-19 [facility] Sodium levelOrdered By: Stas Talley on 07-11-2024 Sodium [Moles/Vol] 139 mmol/L 133-145 [facility] Stool Occult Blood iFOBon STOB Positive Normal [facility] Comment on above: Performed By: #### M 100.7900 ####[facility] [address] [place], [address] Stool gastrointestinal hemog lobin detection by immunologic methodOrdered By: Gricel Talley on 07-11-2024 Lower GI hemoglobin IA Ql (Stl) Positive Abnormal [facility] Total proteinOrdered By: Kristina Talley on 07-11-2024 Protein [Mass/Vol] 7.5 g/dL 5.9-8.4 [facility] White blood cell (WBC) count Ordered By: Gricel Talley on 07-11-2024 WBC (Bld) [#/Vol] 11.9 10*3/uL High 4.4-11.0 [facility] 36on 07-04-2024 36 Step down therapy do se sent [facility] 36 No follow up on file Normal [facility] 36on 06-15-2024 Spoke to patient, no questions. [address] 06-14-2024 36 Called Matty, no answ er or vm. [address] 06-13-2024 36 Prescription sent fo r nicotine replacement therapy with nicotine 21 mg patch daily. Recommend patient stepdown in 1 month to the 14 mg patch daily x 3-4 weeks, then to the 7 mg patch x 3-4 weeks, then stop. I sent in the prescription for the 21 mg. Let us know when you would like the step down doses sent. [place] [address] Name of caller: Matty Contact phone number: [phone] Relationship to Patient: patient Provider: Hardik Practice: [facility] Chief Complaint/Reason for Call: Patient wants to quit smoking. He is requesting the 21 MG Nicotine patches. Let patient know if this can be done. [facility] in [place]. Best time of day caller can be reached: any Patient advised that office/PCP has 24-48 business hours to return their call: Yes [address] 04-22-2024 36 Called patient and L M due to missed appointment. Please schedule the patient for an appointment with the same visit type if they call to reschedule. [address] 04-18-2024 36 Patient has appt nisreen dick for 04/19 will address at visit [place] [address] lm to pre-visit plan for appointment with dr Dye on 04/19/24 8:15. Please ask patient to arrive 15 minutes early with Photo ID, insurance card Fasting: no [address] 04-14-2024 Attempted to call Rasheeda mes[place], unsure if patient has an automated system for phone answering, was unable to leave message. [place] [address] Rx sent for Nexium [place] [address] S: Patient spoke wit h [facility] nurse regarding abdominal pain. B: Onset of symptoms/concern ongoing, getting worse. A: Patient is complaining of mild to moderate intermittent upper abdominal pain that feels like acid reflux. Denies hematemesis, blood in stool, vomiting, dizziness, chest pain, difficulty breathing, fever, chills. Reports some relief with Pepcid, but Nexium is the only thing that really works. Pharmacy and allergies verified/reviewed with patient. Patient is requesting esomeprazole (NexIUM) [address] capsule Take 1 capsule (20 mg) by mouth 2 times daily be sent to pharmacy. Patient is also requesting an office visit to discuss acid reflux, and smoking cessation. Reports he is currently living in a recovery home and needs to schedule a few days out to be able to schedule transportation. Please reach out to patient and advise in regard to medication request. R: Spoke with back line office staff at this time. Office visit scheduled for 04/19/[address] Dye per back line office staff approval. Insurance verified per policy. Patient advised message would be sent to provider for review in regard to NexIUM request. Patient verbalized understanding. Patient understands care advice. No further needs at this time. Patient instructed to call back with new or worsening symptoms, questions or concerns. Reason for Disposition Patient wants to be seen Protocols used: Abdominal Pain - [id number] Normal [facility] CNOVon 02-05-2024 CN Office Visit ([facility] ) -- MATTY WHITLOCK ([id number]) 1990 M Date Time Provider Department 02/05/24 1:45 PM ENRIQUE GARCIA [facility] During your visit today, we recorded the following information about you: Enrique Garcia APRN.CNP 02/05/2024 1:22 PM Signed Nontoxic-appearing male presents urgent care requesting medication refill. Patient states recently was released from nursing home. Did not get a prescription for any of his anxiety medications. Presents today requesting refill on anxiety medications. Currently living in sober living. Does have an appointment with a counselor on Thursday. Requesting sleeping medications and anxiety medications. I discussed with patient that we are unable to fill these medications. Referred to counseling center or the ED. Verbalized understand agrees with plan of care. Will go with staff member to counseling center. Enrique Garcia APRN.CNP Allergies As of Date: 02/05/2024 (No Known Allergies) Date Reviewed: 02/05/2024 Reviewed by: Enrique Garcia APRN.CNP - Fully Assessed Primary Visit Diagnosis:Procedure not carried out [Z53.9] Prescriptions as of 02/05/2024 - busPIRone (BUSPAR) 7.5 mg tablet Take by mouth. - QUEtiapine (SEROQUEL) 200 mg tablet Take 200 mg by mouth daily at bedtime. - nicotine (NICODERM) 21 mg/24 hr Apply 1 Patch by transdermal route 1 time per day - cloNIDine HCl (CATAPRES) 0.2 mg tablet Take 1 Tablet By Oral Route 1 time per day - QUEtiapine (SEROQUEL) 100 mg tablet Take 100 mg by mouth daily at bedtime. - lidocaine viscous (XYLOCAINE) 2 % solution Take 5 mL by mouth as needed. - pantoprazole DR (PROTONIX) 40 mg tablet Take 1 tablet by mouth twice daily. Take on empty stomach, 1/2 hr before meal. - budesonide-formoterol (SYMBICORT) 160-4.5 mcg/actuation inhaler TWICE A DAY - albuterol HFA (VENTOLIN HFA) 90 mcg/actuation inhaler Inhale 2 Puffs as instructed every 6 hours as needed for Wheezing/Shortness of Breath. - loratadine (CLARITIN) 10 mg tablet Take 1 tablet by mouth once daily. Problem List As Of Date 02/05/2024 Noted Resolved Schizoaffective disorder (HCC) [F25.9] 07/15/2016 Bipolar 1 disorder (HCC) [F31.9] 02/27/2017 GERD without esophagitis [K21.9] 01/30/2020 Encounter Status:Closed by ENRIQUE GARCIA on 02/05/24 Normal [facility] Emergency Department Summary on 02-05-2024 Emergency Department Summary [facility] Medical Records Department [address] [place] [address] Emergency Department Summary 02/05/24 MR#: [id number] Acct: [id number] Name: YAIMAMATTY GALLOWAY JULIANNA Rep #: [id number] : 1990 34 From: Florentino Cardona DO PCP: Dr. Laine Dye MD Status:DEP ER Location: ED HPI HPI - Psych History of Present Illness Chief Complaint: Anxiety Detail of Chief Complaint: Anxiety Informant: patient Narrative Narrative: Patient presents to the emergency department chief complaint of anxiety that started 2 days ago. Patient has history of anxiety and apparently had been admitted a couple weeks ago to a [facility] where he had his medication adjusted and was started on Haldol and Invega for sleep as well as Vistaril for anxiety. Patient then went to nursing home from the mental health facility and just got released yesterday. Patient states he has no medications any feeling anxious. Denies feeling suicidal or homicidal. He denies any auditory visual hallucinations. Patient tells me he has an appointment coming up Thursday in 3 days to see a new psychiatrist. Patient states that he does not like the way that Haldol is making him feel and he states it does not agree with him and wants to get back on BuSpar and continue the Invega and Vistaril. Patient had been on BuSpar in the past. [facility] Medical History Anxiety Anxiety Asthma Asthma Bipolar 1 disorder Depression Depression Former smoker History of alcohol abuse History of edema History of gastritis History of GERD History of pain when walking History of substance abuse Hx of fracture of tibia Marijuana use Restless legs Schizoaffective disorder, bipolar type SOB (shortness of breath) Wears glasses Home Medications ???Medication ???Instructions ???Recorded ???Last Taken ???Type buspirone 7.5 mg tablet 7.5 mg PO BID 07/02/23 Unknown History haloperidol 5 mg tablet 5 mg PO BID depressive disorder 02/05/24 Unknown History hydroxyzine pamoate 25 mg capsule 25 mg PO BID 02/05/24 Unknown History lorazepam 1 mg tablet (Ativan) 1 mg PO TID PRN anxiety #10 tabs 02/05/24 Unknown Rx melatonin 3 mg tablet 6 mg PO QHS PRN PRN insomnia 02/05/24 Unknown History paliperidone 6 mg tablet,extended 6 mg PO QHS 02/05/24 Unknown History release 24 hr paliperidone 6 mg tablet,extended 6 mg PO DAILY #7 tabs 02/05/24 Unknown Rx release 24 hr (Invega) Allergy/AdvReac Type Severity Reaction Status Date / Time ondansetron (From Zofran) AdvReac Other Verified 02/05/24 13:29 Social History Smoking Status: Current every day smoker tobacco type: cigarettes and smokeless tobacco alcohol intake: former substance use type: does not use and other details: Former use of Marijuana ROS ROS ED Review of Systems ROS Unobtainable: other Constitutional Constitutional ED: Reports lethargy; Denies chills, fever(s), sweats or weight loss Eyes Eyes: Denies blurry vision, change in vision or diplopia ENT ENT ED: Denies rhinorrhea or sore throat Cardiovascular Cardiovascular: Denies chest pain, orthopnea or racing heartbeat Respiratory/Chest Respiratory/Chest: Denies cough, dyspnea, dyspnea on exertion, orthopnea or sputum Gastrointestinal Gastrointestinal: Denies abdominal pain, diarrhea, nausea or vomiting Genitourinary Genitourinary ED: Denies dysuria, hematuria or urinary frequency Musculoskeletal Musculoskeletal: Denies arthralgias, back pain, myalgias or neck pain Integumentary Denies abscess, Abrasions or rash Neurologic Neurologic: Denies headache(s) or weakness Psychiatric Psychiatric: Reports anxiety; Denies depression or suicidal thoughts Endocrine Endocrinology: Denies polydipsia, polyphagia or polyuria Hematologic/Lymphatic Hematologic/Lymphatic: Denies easy bleeding, easy bruising or lymphadenopathy Allergic/Immunologic Allergic/Immunologic ED: Denies mouth swelling, tongue swelling or urticaria EXAM Physical Exam Const Vital Signs: 02/05/24 13:27 Temperature 98.2 F Temperature Source Oral Pulse Rate 108 H Respiratory Rate 16 Blood Pressure 122/84 H Blood Pressure Mean 96 Pulse Ox 100 Oxygen Delivery Method Room Air Positive well nourished and well developed General Appearance ED: well developed and NAD HEENT Reports TM's clear and moist mucous membranes normocephalic and atraumatic; Negative for trauma or tenderness Tympanic Membrane ED: Yes TM's clear Eyes PERRL and EOMs intact bilaterally General Eye ED: Negative for pale conjunctiva or scleral icterus Neck no lymphadenopathy, supple and no JVD General: Negative for tenderness Chest Wall inspection of chest normal and palpation of chest katey (more content not included)... Normal [facility] Fluoroscopic guidance for salo mbar puncture (LP)Ordered By: Omkar Del Cid on 01-06-2024 Fluoroscopic guidance for lumbar puncture (LP) Negative [facility] No Panel InformationOrdered By: Omkar Del Cid on 01-06-2024 Amphetamines Screen Positive [facility] Comment on above: URINE DRUG SCREENS A RE FOR MEDICAL PURPOSES ONLY.THIS TEST PROVIDES ONLY A PRELIMINARY TEST RESULT. A MORESPECIFIC ALTERNATE CHEMICAL METHOD MUST BE USED IN ORDER TOOBTAIN A CONFIRMED ANALYTICAL RESULT.CONFIRMATION PERFORMED UPON REQUEST Benzodiazepines Screen Positive [facility] Comment on above: URINE DRUG SCREENS A RE FOR MEDICAL PURPOSES ONLY.THIS TEST PROVIDES ONLY A PRELIMINARY TEST RESULT. A MORESPECIFIC ALTERNATE CHEMICAL METHOD MUST BE USED IN ORDER TOOBTAIN A CONFIRMED ANALYTICAL RESULT.CONFIRMATION PERFORMED UPON REQUEST Phencyclidine (PCP) Screen Negative [facility] Urine Drug Screen Note See below [facility] Comment on above: Cannabinoids ....... .................... 50Opiates ................................ 300Cocaine ................................ 150Amphetamine ............................ 500Phencyclidine .......................... 25Barbiturates ........................... 200Methadone .............................. 300Benzodiazepines ........................ 200INTERPRETIVE INFOMRATION:This is a screening test only. False positive and false negative results can occur.The absence of expected drug(s) and/or drug metabolite(s) may indicate non-compliance, inappropriate timing of specimen absorption, diluted/adulterated urine, or limitations of testing. The concentration at which the screening test can detect a drug or metabolite varies within a drug class. The concentration value must be greater than or equal to the cutoff to be reported as positive. The following opiods are not detected in this test: fentanyl,buprenorphine, meperidine, tramadol, and tapentadol. Individual opioid testing is available and can be ordered separately. Opiate detectionOrdered By: Omkar Del Cid on 01-06-2024 Opiates Ql (Unsp spec) Negative [facility] Tetrahydrocannabinol [Presen ce] in UrineOrdered By: Omkar Del Cid on 01-06-2024 Tetrahydrocannabinol Ql (U) Positive [facility] Comment on above: THIS TEST PROVIDES O NLY A PRELIMINARY TEST RESULT. A MORESPECIFIC ALTERNATE CHEMICAL METHOD MUST BE USED IN ORDER TOOBTAIN A CONFIRMED ANALYTICAL RESULT.CONFIRMATION PERFORMED UPON REQUEST URINE DRUG SCREENon 01-06-20 24 AMPHETAMINES Positive [facility] Comment on above: Order Comment: What Is Urine Source? Random Performed By: #### U DRGS #### [address] [address] Other Comment: THIS TEST PROVIDES ONLY A PRELIMINARY TEST RESULT. A MORE SPECIFIC ALTERNATE CHEMICAL METHOD MUST BE USED IN ORDER TO OBTAIN A CONFIRMED ANALYTICAL RESULT. CONFIRMATION PERFORMED UPON REQUEST URINE DRUG SCREENS ARE FOR MEDICAL PURPOSES ONLY. THIS TEST PROVIDES ONLY A PRELIMINARY TEST RESULT. A MORE SPECIFIC ALTERNATE CHEMICAL METHOD MUST BE USED IN ORDER TO OBTAIN A CONFIRMED ANALYTICAL RESULT. CONFIRMATION PERFORMED UPON REQUEST URINE DRUG SCREENS ARE FOR MEDICAL PURPOSES ONLY. THIS TEST PROVIDES ONLY A PRELIMINARY TEST RESULT. A MORE SPECIFIC ALTERNATE CHEMICAL METHOD MUST BE USED IN ORDER TO OBTAIN A CONFIRMED ANALYTICAL RESULT. CONFIRMATION PERFORMED UPON REQUEST Cannabinoids ........................... 50 Opiates ................................ 300 Cocaine ................................ 150 Amphetamine ............................ 500 Phencyclidine .......................... 25 Barbiturates ........................... 200 Methadone .............................. 300 Benzodiazepines ........................ 200 INTERPRETIVE INFOMRATION: This is a screening test only. False positive and false negative results can occur. The absence of expected drug(s) and/or drug metabolite(s) may indicate non-compliance, inappropriate timing of specimen absorption, diluted/adulterated urine, or limitations of testing. The concentration at which the screening test can detect a drug or metabolite varies within a drug class. The concentration value must be greater than or equal to the cutoff to be reported as positive. The following opiods are not detected in this test: fentanyl,buprenorphine, meperidine, tramadol, and tapentadol. Individual opioid testing is available and can be ordered separately. BARBITURATES Negative [facility] Comment on above: Order Comment: What Is Urine Source? Random Performed By: #### U DRGS #### [address] [address] Other Comment: THIS TEST PROVIDES ONLY A PRELIMINARY TEST RESULT. A MORE SPECIFIC ALTERNATE CHEMICAL METHOD MUST BE USED IN ORDER TO OBTAIN A CONFIRMED ANALYTICAL RESULT. CONFIRMATION PERFORMED UPON REQUEST URINE DRUG SCREENS ARE FOR MEDICAL PURPOSES ONLY. THIS TEST PROVIDES ONLY A PRELIMINARY TEST RESULT. A MORE SPECIFIC ALTERNATE CHEMICAL METHOD MUST BE USED IN ORDER TO OBTAIN A CONFIRMED ANALYTICAL RESULT. CONFIRMATION PERFORMED UPON REQUEST URINE DRUG SCREENS ARE FOR MEDICAL PURPOSES ONLY. THIS TEST PROVIDES ONLY A PRELIMINARY TEST RESULT. A MORE SPECIFIC ALTERNATE CHEMICAL METHOD MUST BE USED IN ORDER TO OBTAIN A CONFIRMED ANALYTICAL RESULT. CONFIRMATION PERFORMED UPON REQUEST Cannabinoids ........................... 50 Opiates ................................ 300 Cocaine ................................ 150 Amphetamine ............................ 500 Phencyclidine .......................... 25 Barbiturates ........................... 200 Methadone .............................. 300 Benzodiazepines ........................ 200 INTERPRETIVE INFOMRATION: This is a screening test only. False positive and false negative results can occur. The absence of expected drug(s) and/or drug metabolite(s) may indicate non-compliance, inappropriate timing of specimen absorption, diluted/adulterated urine, or limitations of testing. The concentration at which the screening test can detect a drug or metabolite varies within a drug class. The concentration value must be greater than or equal to the cutoff to be reported as positive. The following opiods are not detected in this test: fentanyl,buprenorphine, meperidine, tramadol, and tapentadol. Individual opioid testing is available and can be ordered separately. BENZODIAZEPINES Positive Abnormal [facility] Comment on above: Order Comment: What Is Urine Source? Random Performed By: #### U DRGS #### [address] [address] Other Comment: THIS TEST PROVIDES ONLY A PRELIMINARY TEST RESULT. A MORE SPECIFIC ALTERNATE CHEMICAL METHOD MUST BE USED IN ORDER TO OBTAIN A CONFIRMED ANALYTICAL RESULT. CONFIRMATION PERFORMED UPON REQUEST URINE DRUG SCREENS ARE FOR MEDICAL PURPOSES ONLY. THIS TEST PROVIDES ONLY A PRELIMINARY TEST RESULT. A MORE SPECIFIC ALTERNATE CHEMICAL METHOD MUST BE USED IN ORDER TO OBTAIN A CONFIRMED ANALYTICAL RESULT. CONFIRMATION PERFORMED UPON REQUEST URINE DRUG SCREENS ARE FOR MEDICAL PURPOSES ONLY. THIS TEST PROVIDES ONLY A PRELIMINARY TEST RESULT. A MORE SPECIFIC ALTERNATE CHEMICAL METHOD MUST BE USED IN ORDER TO OBTAIN A CONFIRMED ANALYTICAL RESULT. CONFIRMATION PERFORMED UPON REQUEST Cannabinoids ........................... 50 Opiates ................................ 300 Cocaine ................................ 150 Amphetamine ............................ 500 Phencyclidine .......................... 25 Barbiturates ........................... 200 Methadone .............................. 300 Benzodiazepines ........................ 200 INTERPRETIVE INFOMRATION: This is a screening test only. False positive and false negative results can occur. The absence of expected drug(s) and/or drug metabolite(s) may indicate non-compliance, inappropriate timing of specimen absorption, diluted/adulterated urine, or limitations of testing. The concentration at which the screening test can detect a drug or metabolite varies within a drug class. The concentration value must be greater than or equal to the cutoff to be reported as positive. The following opiods are not detected in this test: fentanyl,buprenorphine, meperidine, tramadol, and tapentadol. Individual opioid testing is available and can be ordered separately. COCAINE Negative [facility] Comment on above: Order Comment: What Is Urine Source? Random Performed By: #### U DRGS #### [address] [address] Other Comment: THIS TEST PROVIDES ONLY A PRELIMINARY TEST RESULT. A MORE SPECIFIC ALTERNATE CHEMICAL METHOD MUST BE USED IN ORDER TO OBTAIN A CONFIRMED ANALYTICAL RESULT. CONFIRMATION PERFORMED UPON REQUEST URINE DRUG SCREENS ARE FOR MEDICAL PURPOSES ONLY. THIS TEST PROVIDES ONLY A PRELIMINARY TEST RESULT. A MORE SPECIFIC ALTERNATE CHEMICAL METHOD MUST BE USED IN ORDER TO OBTAIN A CONFIRMED ANALYTICAL RESULT. CONFIRMATION PERFORMED UPON REQUEST URINE DRUG SCREENS ARE FOR MEDICAL PURPOSES ONLY. THIS TEST PROVIDES ONLY A PRELIMINARY TEST RESULT. A MORE SPECIFIC ALTERNATE CHEMICAL METHOD MUST BE USED IN ORDER TO OBTAIN A CONFIRMED ANALYTICAL RESULT. CONFIRMATION PERFORMED UPON REQUEST Cannabinoids ........................... 50 Opiates ................................ 300 Cocaine ................................ 150 Amphetamine ............................ 500 Phencyclidine .......................... 25 Barbiturates ........................... 200 Methadone .............................. 300 Benzodiazepines ........................ 200 INTERPRETIVE INFOMRATION: This is a screening test only. False positive and false negative results can occur. The absence of expected drug(s) and/or drug metabolite(s) may indicate non-compliance, inappropriate timing of specimen absorption, diluted/adulterated urine, or limitations of testing. The concentration at which the screening test can detect a drug or metabolite varies within a drug class. The concentration value must be greater than or equal to the cutoff to be reported as positive. The following opiods are not detected in this test: fentanyl,buprenorphine, meperidine, tramadol, and tapentadol. Individual opioid testing is available and can be ordered separately. METHADONE Negative [facility] Comment on above: Order Comment: What Is Urine Source? Random Performed By: #### U DRGS #### [address] [address] Other Comment: THIS TEST PROVIDES ONLY A PRELIMINARY TEST RESULT. A MORE SPECIFIC ALTERNATE CHEMICAL METHOD MUST BE USED IN ORDER TO OBTAIN A CONFIRMED ANALYTICAL RESULT. CONFIRMATION PERFORMED UPON REQUEST URINE DRUG SCREENS ARE FOR MEDICAL PURPOSES ONLY. THIS TEST PROVIDES ONLY A PRELIMINARY TEST RESULT. A MORE SPECIFIC ALTERNATE CHEMICAL METHOD MUST BE USED IN ORDER TO OBTAIN A CONFIRMED ANALYTICAL RESULT. CONFIRMATION PERFORMED UPON REQUEST URINE DRUG SCREENS ARE FOR MEDICAL PURPOSES ONLY. THIS TEST PROVIDES ONLY A PRELIMINARY TEST RESULT. A MORE SPECIFIC ALTERNATE CHEMICAL METHOD MUST BE USED IN ORDER TO OBTAIN A CONFIRMED ANALYTICAL RESULT. CONFIRMATION PERFORMED UPON REQUEST Cannabinoids ........................... 50 Opiates ................................ 300 Cocaine ................................ 150 Amphetamine ............................ 500 Phencyclidine .......................... 25 Barbiturates ........................... 200 Methadone .............................. 300 Benzodiazepines ........................ 200 INTERPRETIVE INFOMRATION: This is a screening test only. False positive and false negative results can occur. The absence of expected drug(s) and/or drug metabolite(s) may indicate non-compliance, inappropriate timing of specimen absorption, diluted/adulterated urine, or limitations of testing. The concentration at which the screening test can detect a drug or metabolite varies within a drug class. The concentration value must be greater than or equal to the cutoff to be reported as positive. The following opiods are not detected in this test: fentanyl,buprenorphine, meperidine, tramadol, and tapentadol. Individual opioid testing is available and can be ordered separately. OPIATES Negative [facility] Comment on above: Order Comment: What Is Urine Source? Random Performed By: #### U DRGS #### [facility] [address] [place] [address] Other Comment: THIS TEST PROVIDES ONLY A PRELIMINARY TEST RESULT. A MORE SPECIFIC ALTERNATE CHEMICAL METHOD MUST BE USED IN ORDER TO OBTAIN A CONFIRMED ANALYTICAL RESULT. CONFIRMATION PERFORMED UPON REQUEST URINE DRUG SCREENS ARE FOR MEDICAL PURPOSES ONLY. THIS TEST PROVIDES ONLY A PRELIMINARY TEST RESULT. A MORE SPECIFIC ALTERNATE CHEMICAL METHOD MUST BE USED IN ORDER TO OBTAIN A CONFIRMED ANALYTICAL RESULT. CONFIRMATION PERFORMED UPON REQUEST URINE DRUG SCREENS ARE FOR MEDICAL PURPOSES ONLY. THIS TEST PROVIDES ONLY A PRELIMINARY TEST RESULT. A MORE SPECIFIC ALTERNATE CHEMICAL METHOD MUST BE USED IN ORDER TO OBTAIN A CONFIRMED ANALYTICAL RESULT. CONFIRMATION PERFORMED UPON REQUEST Cannabinoids ........................... 50 Opiates ................................ 300 Cocaine ................................ 150 Amphetamine ............................ 500 Phencyclidine .......................... 25 Barbiturates ........................... 200 Methadone .............................. 300 Benzodiazepines ........................ 200 INTERPRETIVE INFOMRATION: This is a screening test only. False positive and false negative results can occur. The absence of expected drug(s) and/or drug metabolite(s) may indicate non-compliance, inappropriate timing of specimen absorption, diluted/adulterated urine, or limitations of testing. The concentration at which the screening test can detect a drug or metabolite varies within a drug class. The concentration value must be greater than or equal to the cutoff to be reported as positive. The following opiods are not detected in this test: fentanyl,buprenorphine, meperidine, tramadol, and tapentadol. Individual opioid testing is available and can be ordered separately. PHENCYCLIDINE Negative [facility] Comment on above: Order Comment: What Is Urine Source? Random Performed By: #### U DRGS #### [address] [address] Other Comment: THIS TEST PROVIDES ONLY A PRELIMINARY TEST RESULT. A MORE SPECIFIC ALTERNATE CHEMICAL METHOD MUST BE USED IN ORDER TO OBTAIN A CONFIRMED ANALYTICAL RESULT. CONFIRMATION PERFORMED UPON REQUEST URINE DRUG SCREENS ARE FOR MEDICAL PURPOSES ONLY. THIS TEST PROVIDES ONLY A PRELIMINARY TEST RESULT. A MORE SPECIFIC ALTERNATE CHEMICAL METHOD MUST BE USED IN ORDER TO OBTAIN A CONFIRMED ANALYTICAL RESULT. CONFIRMATION PERFORMED UPON REQUEST URINE DRUG SCREENS ARE FOR MEDICAL PURPOSES ONLY. THIS TEST PROVIDES ONLY A PRELIMINARY TEST RESULT. A MORE SPECIFIC ALTERNATE CHEMICAL METHOD MUST BE USED IN ORDER TO OBTAIN A CONFIRMED ANALYTICAL RESULT. CONFIRMATION PERFORMED UPON REQUEST Cannabinoids ........................... 50 Opiates ................................ 300 Cocaine ................................ 150 Amphetamine ............................ 500 Phencyclidine .......................... 25 Barbiturates ........................... 200 Methadone .............................. 300 Benzodiazepines ........................ 200 INTERPRETIVE INFOMRATION: This is a screening test only. False positive and false negative results can occur. The absence of expected drug(s) and/or drug metabolite(s) may indicate non-compliance, inappropriate timing of specimen absorption, diluted/adulterated urine, or limitations of testing. The concentration at which the screening test can detect a drug or metabolite varies within a drug class. The concentration value must be greater than or equal to the cutoff to be reported as positive. The following opiods are not detected in this test: fentanyl,buprenorphine, meperidine, tramadol, and tapentadol. Individual opioid testing is available and can be ordered separately. THC Positive Abnormal [facility] Comment on above: Order Comment: What Is Urine Source? Random Performed By: #### U DRGS #### [address] [address] Other Comment: THIS TEST PROVIDES ONLY A PRELIMINARY TEST RESULT. A MORE SPECIFIC ALTERNATE CHEMICAL METHOD MUST BE USED IN ORDER TO OBTAIN A CONFIRMED ANALYTICAL RESULT. CONFIRMATION PERFORMED UPON REQUEST URINE DRUG SCREENS ARE FOR MEDICAL PURPOSES ONLY. THIS TEST PROVIDES ONLY A PRELIMINARY TEST RESULT. A MORE SPECIFIC ALTERNATE CHEMICAL METHOD MUST BE USED IN ORDER TO OBTAIN A CONFIRMED ANALYTICAL RESULT. CONFIRMATION PERFORMED UPON REQUEST URINE DRUG SCREENS ARE FOR MEDICAL PURPOSES ONLY. THIS TEST PROVIDES ONLY A PRELIMINARY TEST RESULT. A MORE SPECIFIC ALTERNATE CHEMICAL METHOD MUST BE USED IN ORDER TO OBTAIN A CONFIRMED ANALYTICAL RESULT. CONFIRMATION PERFORMED UPON REQUEST Cannabinoids ........................... 50 Opiates ................................ 300 Cocaine ................................ 150 Amphetamine ............................ 500 Phencyclidine .......................... 25 Barbiturates ........................... 200 Methadone .............................. 300 Benzodiazepines ........................ 200 INTERPRETIVE INFOMRATION: This is a screening test only. False positive and false negative results can occur. The absence of expected drug(s) and/or drug metabolite(s) may indicate non-compliance, inappropriate timing of specimen absorption, diluted/adulterated urine, or limitations of testing. The concentration at which the screening test can detect a drug or metabolite varies within a drug class. The concentration value must be greater than or equal to the cutoff to be reported as positive. The following opiods are not detected in this test: fentanyl,buprenorphine, meperidine, tramadol, and tapentadol. Individual opioid testing is available and can be ordered separately. DRG SCREEN CUT OFF SEE BELOW Normal [facility] Comment on above: Order Comment: What Is Urine Source? Random Performed By: #### U DRGS #### [address] [address] Other Comment: THIS TEST PROVIDES ONLY A PRELIMINARY TEST RESULT. A MORE SPECIFIC ALTERNATE CHEMICAL METHOD MUST BE USED IN ORDER TO OBTAIN A CONFIRMED ANALYTICAL RESULT. CONFIRMATION PERFORMED UPON REQUEST URINE DRUG SCREENS ARE FOR MEDICAL PURPOSES ONLY. THIS TEST PROVIDES ONLY A PRELIMINARY TEST RESULT. A MORE SPECIFIC ALTERNATE CHEMICAL METHOD MUST BE USED IN ORDER TO OBTAIN A CONFIRMED ANALYTICAL RESULT. CONFIRMATION PERFORMED UPON REQUEST URINE DRUG SCREENS ARE FOR MEDICAL PURPOSES ONLY. THIS TEST PROVIDES ONLY A PRELIMINARY TEST RESULT. A MORE SPECIFIC ALTERNATE CHEMICAL METHOD MUST BE USED IN ORDER TO OBTAIN A CONFIRMED ANALYTICAL RESULT. CONFIRMATION PERFORMED UPON REQUEST Cannabinoids ........................... 50 Opiates ................................ 300 Cocaine ................................ 150 Amphetamine ............................ 500 Phencyclidine .......................... 25 Barbiturates ........................... 200 Methadone .............................. 300 Benzodiazepines ........................ 200 INTERPRETIVE INFOMRATION: This is a screening test only. False positive and false negative results can occur. The absence of expected drug(s) and/or drug metabolite(s) may indicate non-compliance, inappropriate timing of specimen absorption, diluted/adulterated urine, or limitations of testing. The concentration at which the screening test can detect a drug or metabolite varies within a drug class. The concentration value must be greater than or equal to the cutoff to be reported as positive. The following opiods are not detected in this test: fentanyl,buprenorphine, meperidine, tramadol, and tapentadol. Individual opioid testing is available and can be ordered separately. ALCOHOL,PLASMAon 01-05-2024 ALCOHOL,PLASMA < 3.0 Normal [facility] Comment on above: Result Comment: < 3 mg/dl NONE DETECTED 50-100 mg/dl MAY SHOW SIGNS OF INTOXICATION 300-500 mg/dl COMATOSE LEVEL Performed By: #### T RO, [place], [place] #### Sharon [address] [address] CBC with AUTO DIFFon 024 BAS0 % 0.80 % Normal 0-2 [facility] Comment on above: Performed By: #### C BC ####[address] [address] Basophils (Bld) [#/Vol] 0.1 10*3/uL Normal 0-0.1 [facility] Comment on above: Performed By: #### C BC ####[address] [address] Eosinophils (Bld) [#/Vol] 0.3 10*3/uL Normal 0.0-1.80 [facility] Comment on above: Performed By: #### C BC ####[address] [address] Eosinophils/100 WBC (Bld) 2.5 % Normal 0-8 [facility] Comment on above: Performed By: #### C BC ####[address] [address] GRAN # 6.4 K/uL Normal 2.2-9.1 [facility] Comment on above: Performed By: #### C BC ####[address] [address] GRAN % 58.9 % Normal 42-80 [facility] Comment on above: Performed By: #### C BC ####[address] [address] Hematocrit (Bld) [Volume fraction] 39.5 % Low 41.0-53.0 [facility] Comment on above: Performed By: #### C BC ####[address] [facility] [address] Hemoglobin (Bld) [Mass/Vol] 13.0 g/dL Low 14.0-18.0 [facility] Comment on above: Performed By: #### C BC ####[address] [facility] [place] [address] Lymphocytes (Bld) [#/Vol] 3.2 10*3/uL Normal 1.0-4.0 [facility] Comment on above: Performed By: #### C BC ####[address] [facility] [place] [address] Lymphocytes/100 WBC (Bld) 29.6 % Normal 16-48 [facility] Comment on above: Performed By: #### C BC ####[address] [facility] [place] [address] MCV (RBC) [Entitic vol] 87.6 fL Normal 80-97 [facility] Comment on above: Performed By: #### C BC ####[address] [facility] [place] [address] MEAN CORPUSCULAR HGB 28.8 pg Normal 26.0-32.0 [facility] Comment on above: Performed By: #### C BC ####[address] [place] [address] MEAN CORPUSCULAR HGB CONC 32.9 g/dL Normal 31.0-36.0 [facility] Comment on above: Performed By: #### C BC ####[address] [place] [address] MONO DISTRIB WIDTH 16.53 Normal 0-20 [facility] Comment on above: Result Comment: For ED adult patients suspected of sepsis, MDW<=20.0 does not rule out sepsis or risk of sepsis Performed By: #### C BC ####[address] [place] [address] Monocytes (Bld) [#/Vol] 0.9 10*3/uL Normal 0.1-1.7 [facility] Comment on above: Performed By: #### C BC ####[address] [place] [address] Monocytes/100 WBC (Bld) 8.2 % Normal 3-9 [facility] Comment on above: Performed By: #### C BC ####[facility] [place] [address] Platelet mean volume (Bld) [Entitic vol] 8.1 fL Normal 6.4-10.5 [facility] Comment on above: Performed By: #### C BC ####[facility] [place] [address] Platelets (Bld) [#/Vol] 276 10*3/uL Normal 140-450 [facility] Comment on above: Performed By: #### C BC ####[address] [place] [address] RBC (Bld) [#/Vol] 4.51 10*6/uL Normal 4.40-6.30 [facility] Comment on above: Performed By: #### C BC ####[address] [place] [address] RED CELL DISTRI WIDTH 15.6 % High 11.0-15.5 [facility] Comment on above: Performed By: #### C BC ####[address] [place] [address] WBC (Bld) [#/Vol] 10.9 10*3/uL Normal 4.0-11.0 [facility] Comment on above: Performed By: #### C BC ####[facility] [place] [address] COMPREHENSIVE METABOLIC PANE Gagandeep 01-05-2024 Albumin [Mass/Vol] 3.4 g/dL Normal 3.4-5.0 [facility] Comment on above: Performed By: #### T RO [place] #### [facility] [address] [place] [address] Albumin/Globulin [Mass ratio] 1.2 {ratio} Normal 1.1-1.8 [facility] Comment on above: Performed By: #### T RO [place] #### [facility] [address] [place] [address] ALP [Catalytic activity/Vol] 53 U/L Normal 45-117 [facility] Comment on above: Performed By: #### T RO, [place], [place] #### [address] [place] [address] ALT [Catalytic activity/Vol] 25 U/L Normal 12-78 [facility] Comment on above: Performed By: #### T RO [place] #### [facility] [address] [place] [address] Anion gap [Moles/Vol] 15.8 mmol/L Normal 11-23 [facility] Comment on above: Performed By: #### T RO [place] #### [facility] [address] [place] [address] AST [Catalytic activity/Vol] 22 U/L Normal 15-37 [facility] Comment on above: Performed By: #### T RO [place] #### [facility] [address] [place] [address] Bilirubin [Mass/Vol] 0.4 mg/dL Normal 0.2-1.0 [facility] Comment on above: Performed By: #### T RO [place] #### [facility] [address] [place] [address] Calcium [Mass/Vol] 8.2 mg/dL Low 8.5-10.1 [facility] Comment on above: Performed By: #### T RO [place] #### [facility] [address] [place] [address] Chloride [Moles/Vol] 109 mmol/L High 98-107 [facility] Comment on above: Performed By: #### T RO [place] #### [facility] [address] [place] [address] CO2 [Moles/Vol] 20.0 mmol/L Low 21-32 [facility] Comment on above: Performed By: #### T RO, [place], [place] #### [facility] [address] [place] [address] Creatinine [Mass/Vol] 1.10 mg/dL Normal 0.7-1.3 [facility] Comment on above: Performed By: #### T RO [place] #### [facility] [address] [place] [address] GFR > 60.0 [facility] Comment on above: Performed By: #### T RO, [place], [place] #### [facility] [address] [place] [address] GFR AM > 60.0 [facility] Comment on above: Result Comment: THE NORMAL LEVEL OF GFR VARIES ACCORDING TO AGE, SEX, AND BODY SIZE. A GFR LEVEL OF LESS THAN 60 ML/MIN REPRESENTS LOSS OF THE ADULT LEVEL OF NORMAL KIDNEY FUNCTION. Performed By: #### Myla [place] #### [address] [address] Globulin (S) [Mass/Vol] 2.7 g/dL Normal 2.5-4.6 [facility] Comment on above: Performed By: #### Myla STORY [place] #### [facility] [address] [place] [address] Glucose [Mass/Vol] 101 mg/dL High 70-100 [facility] Comment on above: Performed By: #### Myla [facility] #### [address] [place] [address] Potassium [Moles/Vol] 3.4 mmol/L Low 3.5-5.1 [facility] Comment on above: Performed By: #### Myla [place] #### [address] [place] [address] Protein [Mass/Vol] 6.1 g/dL Normal 6.0-8.3 [facility] Comment on above: Performed By: #### Myla [place] #### [address] [place] [address] Sodium [Moles/Vol] 141 mmol/L Normal 136-145 [facility] Comment on above: Performed By: #### Myla [place] #### [address] [place] [address] Urea nitrogen [Mass/Vol] 15.0 mg/dL Normal 7-18 [facility] Comment on above: Performed By: #### Myla ST[place] #### [address] [place] [address] Determination of erythrocyte mean corpuscular volume (MCV)Ordered By: Omkar Del Cid on 01-05-2024 MCV (RBC) [Entitic vol] 87.6 fL 80-97 [facility] ED.PDOCon 01-05-2024 ED.PDOC MATTY WHITLOCK Male [id number] Attending provider: [facility] [id number] Omkar Del Cid 1990 34 DOS: 01/05/24 Hx/Exam - History of Present Illness Chief Complaint: DELUSIONS/HALLUCINATIONS Location: body, mind Symptom Duration: days Symptom Duration: Day(s) Onset of Symptoms: police were called by mother, pt had expressed SI Intensity: moderate, moderate-severe Quality: pt was expressing HI, depression symptoms Episode Frequency: intermittant Episode Duration: Days Radiations: body, mind Patient/Family Denies: neck pain, back pain, abd pain, vomiting, falls/trauma - Review of Systems All Other Systems: Pertinent Positives in HPI, All Other Systems Negative Constitutional: Denies: Fever, Chills, Sweats Respiratory: Denies: Cough, Shortness of Breath Cardiovascular: Denies: Chest Pain, Palpitations, Light Headedness Gastrointestinal: Denies: Nausea, Vomiting, Abdominal Pain, Diarrhea Musculoskeletal: Denies: Neck Pain, Back Pain, Body Aches Skin: Denies: Rash Neurological: Denies: Headache, Weakness, Numbness, Incoordination, Seizures - Social History Smoking Status: Never Smoker Hx Alcohol Use: No Hx Drug Use: Methamphetamine Living Conditions: Alone - Family History Family/Social History Related to Chief Complaint: Denies - Physical Exam General Appearance: awake, alert Eyes: PERRL Head, Ears, Nose, and Throat: TMs normal, pharynx normal, mucous membranes moist, atraumatic, mastoid non-tender, other (No step off or depressed skull fracture; no septal hematoma; no dental trauma noted; no pain at TMJ bilaterally; midline trachea; no pain with EOM, no proptosis or enophthalmos; no crepitus over face. ) Neck: supple, non-tender, no stridor, no bony tenderness, full ROM, no meningeal signs, no cervical lymphadenopathy Respiratory: lungs clear, no wheezes/rhonchi/rales, no respiratory distress Cardiovascular: regular rate, rhythm, no murmur, no gallop Abdomen/GI: non tender, soft, non-distended, normal bowel sounds, no organomegaly, no pulsatile mass, no peritoneal signs Back: no vertebral tenderness, normal ROM, non tender Extremity: normal range of motion, non-tender, normal inspection, no pedal edema, no calf tenderness Pulses: Radial: 2+, Posterior Tibial: 2+, Dorsalis Pedis: 2+ Neurologic: no motor/sensory deficits, normal gait, normal strength, normal sensation, speech clear/fluent Psychiatric: aggitated Skin Exam: warm/dry - Source of History Source of History: Nursing Notes/Vital Signs/Triage Reviewed and Agree Note(s) - Physician Notes Additional Notes, See Orders for Details: 01/05/24 21:29 34-year-old male presents after police were called given concern that he had been expressing suicidal thoughts according to his mother. Patient on arrival according to police was agitated expressing hallucinations paranoia and was yelling about wanting to harm someone. Patient was brought in by police. Patient was screaming yelling at staff. I attempted verbal de-escalation unsuccessfully with the patient and therefore as he continued to lash out at staff and had potential to harm himself or others I added chemical restraint for the patient. CT head: IMPRESSION: No acute intracranial pathology. COMMENT: Changes resultant from ischemia (even significant ischemia) may often be inapparent on CT exam, particularly if imaged early. Additionally, early changes due to neoplastic or inflammatory processes can be subtle to the extent that they are not prospectively noted. Therefore, if symptoms persist, or clinical suspicion for pathology remains, further evaluation may be obtained with MRI. Electronically signed By Jv Hill MD 01/05/2024 10:41:35 PM EST Workstation ID : [id number] REPORT SIGNATURE ON FILE Electronically Signed Date/Time: 01/05/242240 Dictated Date/time: 01/05/242239; I d/w pt all imaging results. Mini resp panel NEGATIVE. [place] slip has been filled out for pt. We had reached out to the patient's mother spoke to her on the phone and she indicates the patient has had a long history with substance abuse. His urine drug screen is positive for methamphetamines. Mother states that he has been living in a homeless camp in [place] called mother bashir landin And he has been having a lot of problems with someone named Unk, And the patient had indicated threats of harm against this person earlier tonight. We reached out to psychiatric facilities and patient has been accepted to [facility] by Dr. Aceves. This note is completed with assistance of the [employer] dictation program. While every attempt has been made to dictate accurately, the system does make errors in transcribing the precise spoken word intended. EKG - EKG EKG Interpretation: Preliminary ED Interpretation (Sinus rhythm rate 90; no prior for comparison; QTc 446) Discharge Screen - Discharge Discharge Problem: Met (more content not included)... Normal [facility] EGFR non- AmericanOrd ered By: Omkar Del Cid on 01-05-2024 GFR/1.73 sq M.predicted among non-blacks MDRD (S/P/Bld) [Vol rate/Area] mL/min/{1.73_m2} [facility] Eosinophil percentOrdered By : Omkar Del Cid on 01-05-2024 Basophils/100 WBC (Bld) 0.80 % 0-2 [facility] Bilirubin [Mass/Vol] 0.4 mg/dL 0.2-1.0 [facility] Chloride [Moles/Vol] 109 mmol/L High 98-107 [facility] Eosinophil percent < 3.0 mg/dL [facility] Comment on above: < 3 mg/dl NONE DETEC [id number] mg/dl MAY SHOW SIGNS OF [id number] mg/dl COMATOSE LEVEL Eosinophils/100 WBC (Bld) 2.5 % 0-8 [facility] Hemoglobin (Bld) [Mass/Vol] 13.0 g/dL Low 14.0-18.0 [facility] Lymphocytes (Bld) [#/Vol] 3.2 10*3/uL 1.0-4.0 [facility] Lymphocytes/100 WBC (Bld) 29.6 % 16-48 [facility] Monocytes (Bld) [#/Vol] 0.9 10*3/uL 0.1-1.7 [facility] Monocytes/100 WBC (Bld) 8.2 % 3-9 [facility] Potassium [Moles/Vol] 3.4 mmol/L Low 3.5-5.1 [facility] Protein [Mass/Vol] 6.1 g/dL 6.0-8.3 [facility] Sodium [Moles/Vol] 141 mmol/L 136-145 [facility] Fluoroscopic guidance for salo mbar puncture (LP)Ordered By: Omkar Del Cid on 01-05-2024 Albumin [Mass/Vol] 3.4 g/dL 3.4-5.0 [facility] Basophils (Bld) [#/Vol] 0.1 10*3/uL 0-0.1 [facility] Eosinophils (Bld) [#/Vol] 0.3 10*3/uL 0.0-1.80 [facility] Fluoroscopic guidance for lumbar puncture (LP) [facility] Granulocytes/100 WBC Auto (B ld)Ordered By: Omkar Del Cid on 01-05-2024 Granulocytes/100 WBC (Bld) 58.9 % 42-80 [facility] HEAD W/O CONTRASTon 01-05-20 24 HEAD W/O CONTRAST MATTY WHITLOCK [id number] Ordering physician: Omkar Del Cid LOC:ER [id number] Attending physician: 1990 34 DO S: 01/05/24 __ Acc#: [id number] Exam/Proc: HEAD W/O CONTRAST Dept: COMPUTED TOMOGRAPHY EXAMINATION: CT OF THE HEAD WITHOUT CONTRAST01/05/2024 10:[address] HEAD/BRAIN WITHOUT CONTRAST EXAM DESCRIPTION: TECHNIQUE: CT of the head was performed without the administration of intravenous contrast. Automated exposure control, iterative reconstruction, and/or weight based adjustment of the mA/kV was utilized to reduce the radiation dose to as low as reasonably achievable. COMPARISON: None available HISTORY: ORDERING SYSTEM PROVIDED HISTORY: TECHNOLOGIST PROVIDED HISTORY: Reason for Exam: Confusion FINDINGS: The size, density, and morphology of the brain and CSF containing spaces appears normal. There is no evidence of mass, midline shift, hemorrhage, or infract. The ventricles, cortical sulci, and subarachnoid cisterns appear unremarkable. There are no extra-axial fluid collections. No regions of pathologic attenuation are evident. Regions of the orbits and paranasal sinuses included within the field of view are unremarkable. There is no displaced fracture or osseous neoplasm. The extracalvarial soft tissues appear unremarkable. IMPRESSION: No acute intracranial pathology. COMMENT: Changes resultant from ischemia (even significant ischemia) may often be inapparent on CT exam, particularly if imaged early. Additionally, early changes due to neoplastic or inflammatory processes can be subtle to the extent that they are not prospectively noted. Therefore, if symptoms persist, or clinical suspicion for pathology remains, further evaluation may be obtained with MRI. Electronically signed By Jv Hill MD 01/05/2024 10:41:35 PM EST Workstation ID : [id number] REPORT SIGNATURE ON FILE Electronically Signed Date/Time: 01/05/242240 Dictated Date/time: 01/05/242239 CC: Normal [facility] Laboratory - Chemistry and C hemistry - challengeOrdered By: Omkar Del Cid on 01-05-2024 Albumin/Globulin [Mass ratio] 1.2 {ratio} 1.1-1.8 [facility] ALP [Catalytic activity/Vol] 53 U/L 45-117 [facility] ALT [Catalytic activity/Vol] 25 U/L 12-78 [facility] AST [Catalytic activity/Vol] 22 U/L 15-37 [facility] Calcium [Mass/Vol] 8.2 mg/dL Low 8.5-10.1 [facility] CO2 [Moles/Vol] 20.0 mmol/L Low 21-32 [facility] Creatinine [Mass/Vol] 1.10 mg/dL 0.7-1.3 [facility] GFR/1.73 sq M.predicted MDRD (S/P/Bld) [Vol rate/Area] mL/min/{1.73_m2} [facility] Comment on above: THE NORMAL LEVEL OF GFR VARIES ACCORDING TO AGE, SEX, AND BODY SIZE. A GFR LEVEL OF LESS THAN 60 ML/MIN REPRESENTS LOSS OF THE ADULT LEVEL OF NORMAL KIDNEY FUNCTION. Globulin (S) [Mass/Vol] 2.7 g/dL 2.5-4.6 [facility] Glucose [Mass/Vol] 101 mg/dL High 70-100 [facility] Urea nitrogen [Mass/Vol] 15.0 mg/dL 7-18 [facility] Laboratory - Hematology and Cell countsOrdered By: Omkar Del Cid on 01-05-2024 Erythrocyte distribution width (RBC) [Ratio] 15.6 % High 11.0-15.5 [facility] Granulocytes (Bld) [#/Vol] 6.4 10*3/uL 2.2-9.1 [facility] Hematocrit (Bld) [Volume fraction] 39.5 % Low 41.0-53.0 [facility] MCH (RBC) [Entitic mass] 28.8 pg 26.0-32.0 [facility] MCHC (RBC) [Mass/Vol] 32.9 g/dL 31.0-36.0 [facility] Platelet mean volume (Bld) [Entitic vol] 8.1 fL 6.4-10.5 [facility] Platelets (Bld) [#/Vol] 276 10*3/uL 140-450 [facility] RBC (Bld) [#/Vol] 4.51 10*6/uL 4.40-6.30 [facility] WBC (Bld) [#/Vol] 10.9 10*3/uL 4.0-11.0 [facility] Monocyte distribution width [Entitic volume] in Blood by AutomatedOrdered By: Omkar Del Cid on 01-05-2024 Monocyte distribution width Auto (Bld) [Entitic vol] 16.53 0-20 [facility] Comment on above: For ED adult patient s suspected of sepsis, MDW<=20.0 does not rule out sepsis or risk of sepsis No Panel InformationOrdered By: Omkar Del Cid on 01-05-2024 Troponin 5.6 pg/mL 0-78.5 [facility] Comment on above: Troponin Reference R kevin:Male: 0-78.5 pg/mL (ng/L) Female: 0-53.7 pg/mL (ng/L) Note: The new high sensitivity Troponin units are in pg/mL (ng/L) Serum or plasma anion gapOrd ered By: Omkar Del Cid on 01-05-2024 Anion gap [Moles/Vol] 15.8 mmol/L 03-19 [facility] TROPONINon 01-05-2024 TROPONIN 5.6 pg/mL Normal 0-78.5 [facility] Comment on above: Result Comment: Trop onin Reference Range: Male: 0-78.5 pg/mL (ng/L) Female: 0-53.7 pg/mL (ng/L) Note: The new high sensitivity Troponin units are in pg/mL (ng/L) Performed By: #### T RO, [place], [place] #### Sharon [address] [address] CK SerPl-cCncon 12-28-2023 CK [Catalytic activity/Vol] 407 U/L High 26-192 [facility] Comment on above: Order Comment: Speci men Type: BLOOD SPECIMENOrdering Facility: [facility] Address: [address] [place] [address] Performed By: #### 2 157-6 ####[facility] [id number] [address] [place] ED NOTEon 12-28-2023 ED NOTE HNO ID: [id number] Author: KYLAH TREVIZO RN Service: Emergency Medicine Author Type: Registered Nurse Type: ED Notes Filed: 12/28/2023 02:38 Note Text: Pt provided discharge instructions and attachments, pt also provided resources for homelessness and drug abuse help. [facility] ED NOTE HNO ID: [id number] Author: KYLAH TREVIZO RN Service: Emergency Medicine Author Type: Registered Nurse Type: ED Notes Filed: 12/28/2023 02:21 Note Text: Pt speaking with intake at this time [facility] Basic metabolic 2000 panelon 12-27-2023 Anion gap [Moles/Vol] mmol/L Low 5-16 [facility] Comment on above: Order Comment: Speci men Type: BLOOD SPECIMENOrdering Facility: [facility] Address: [address] [place] [address] Performed By: #### 9 4500-6 #### [facility] CLIA [id number] [address] [place] [address] [place] Calcium [Mass/Vol] 9.8 mg/dL Normal 8.5-10.5 [facility] Comment on above: Order Comment: Speci men Type: BLOOD SPECIMENOrdering Facility: [facility] Address: [address] [place] [address] Performed By: #### 9 4500-6 #### [facility] CLIA [id number] [address] [place] [address] [place] Chloride [Moles/Vol] 109 mmol/L High 98-107 [facility] Comment on above: Order Comment: Speci men Type: BLOOD SPECIMENOrdering Facility: [facility] Address: [address] [id number] Performed By: #### 9 4500-6 #### [facility] CLIA [id number] [address] [place], [place] [address] [place] CO2 [Moles/Vol] 28 mmol/L Normal 21-32 [facility] Comment on above: Order Comment: Speci men Type: BLOOD SPECIMENOrdering Facility: [facility] Address: [address] [place] [address] Performed By: #### 9 4500-6 #### [facility] CLIA [id number] [address] [place], [place] [address] [place] Creatinine [Mass/Vol] 0.70 mg/dL Normal 0.50-1.40 [facility] Comment on above: Order Comment: Speci men Type: BLOOD SPECIMENOrdering Facility: [facility] Address: [address] [place] [address] Result Comment: Cathleen ents receiving either N-Acetylcysteine (NAC) or Metamizole prior to venipuncture, may have falsely depressed results. Performed By: #### 9 4500-6 #### [facility] CLIA [id number] [address] [place] [address] [place] Creatinine and Glomerular filtration rate.predicted panel (S/P/Bld) 126 mL/min/1.73m??? Normal >=60 [facility] Comment on above: Order Comment: Speci men Type: BLOOD SPECIMENOrdering Facility: [facility] Address: [address] [place] [address] Result Comment: Kenyetta mated Glomerular Filtration Rate (eGFR) is calculated using the 2020 CKD-EPI creatinine equation. This equation utilizes serum creatinine, sex, and age as parameters. The creatinine assay has traceable calibration to isotope dilution-mass spectrometry. Refer to KDIGO guidelines for clinical interpretation. In patients with unstable renal function, e.g. those with acute kidney injury, the eGFR may not accurately reflect actual GFR. Performed By: #### 9 4500-6 #### [facility] CLIA [id number] [address] [place] [address] [place] Glucose [Mass/Vol] 65 mg/dL Low 70-100 [facility] Comment on above: Order Comment: Speci men Type: BLOOD SPECIMENOrdering Facility: [facility] Address: [address] [place] [address] Result Comment: The [place] Diabetes [employer] (ADA) provides guidance for cutoff values for fasting glucose and random glucose. The ADA defines fasting as no caloric intake for at least 8 hours. Fasting plasma glucose results between 100 to 125 mg/dL indicate increased risk for diabetes (prediabetes). Fasting plasma glucose results greater than or equal to 126 mg/dL meet the criteria for diagnosis of diabetes. In the absence of unequivocal hyperglycemia, results should be confirmed by repeat testing. In a patient with classic symptoms of hyperglycemia or hyperglycemic crisis, random plasma glucose results greater than or equal to 200 mg/dL meet the criteria for diagnosis of diabetes. Reference: Standards of Medical Care in Diabetes 2016, [place] [employer]. Diabetes Care. 2016.39(Suppl 1). Results may be falsely elevated after the administration of Sulfapyridine. Results may be falsely depressed after the administration of Sulfasalazine. Performed By: #### 9 4500-6 #### [facility] CLIA [id number] [address] [place] [address] [place] Potassium [Moles/Vol] 3.6 mmol/L Normal 3.5-5.1 [facility] Comment on above: Order Comment: Speci men Type: BLOOD SPECIMENOrdering Facility: [facility] Address: [address] [place] [address] Performed By: #### 9 4500-6 #### [facility] CLIA [id number] [address] [place] [address] [place] Sodium [Moles/Vol] 139 mmol/L Normal 136-145 [facility] Comment on above: Order Comment: Speci men Type: BLOOD SPECIMENOrdering Facility: [facility] Address: [address] [place] [address] Performed By: #### 9 4500-6 #### [facility] CLIA [id number] [address] [place] [address] [place] Urea nitrogen [Mass/Vol] 9 mg/dL Normal 11-19 [facility] Comment on above: Order Comment: Speci men Type: BLOOD SPECIMENOrdering Facility: [facility] Address: [address] [place] [address] Performed By: #### 9 4500-6 #### [facility] CLIA [id number] [address] [place] [address] [place] CBC W Auto Differential pane l (Bld)on 12-27-2023 Basophils (Bld) [#/Vol] 0.05 10*3/uL Normal <0.11 [facility] Comment on above: Order Comment: Speci men Type: BLOOD SPECIMEN [facility] Address: [address] [place] [address] Performed By: #### 2 4323-8, 5643-2 #### [facility] CLIA [id number] [address] [place] [address] [place] Basophils/100 WBC (Bld) 0.6 % Normal [facility] Comment on above: Order Comment: Speci men Type: BLOOD SPECIMEN [facility] Address: [address] [place] [address] Performed By: #### 2 4323-8, 5643-2 #### [facility] CLIA [id number] [address] [place] [address] [place] Differential cell count method Nom (Bld) Auto Normal [facility] Comment on above: Order Comment: Speci men Type: BLOOD SPECIMEN [facility] Address: [address] [place] [address] Performed By: #### 2 4323-8, 5643-2 #### [facility] CLIA [id number] [address] [place] [address] [place] Eosinophils (Bld) [#/Vol] 0.34 10*3/uL Normal <0.46 [facility] Comment on above: Order Comment: Speci men Type: BLOOD SPECIMEN [facility] Address: [address] [place] [address] Performed By: #### 2 4323-8, 5643-2 #### [facility] CLIA [id number] [address] [place], [place] [address] [place] Eosinophils/100 WBC (Bld) 3.9 % Normal [facility] Comment on above: Order Comment: Speci men Type: BLOOD SPECIMEN [facility] Address: [address] [place] [address] Performed By: #### 2 4323-8, 5643-2 #### [facility] CLIA [id number] [address] [place] [address] [place] Erythrocyte distribution width (RBC) [Ratio] 14.6 % Normal 11.5-15.0 [facility] Comment on above: Order Comment: Speci men Type: BLOOD SPECIMEN [facility] Address: [address] [place] [address] Performed By: #### 2 4323-8, 5643-2 #### [facility] CLIA [id number] [address] [place] [address] [place] Hematocrit (Bld) [Volume fraction] 42.9 % Normal 39.0-51.0 [facility] Comment on above: Order Comment: Speci men Type: BLOOD SPECIMEN [facility] Address: [address] [place] [address] Performed By: #### 2 4323-8, 5643-2 #### [facility] CLIA [id number] [address] [place], [place] [address] [place] Hemoglobin (Bld) [Mass/Vol] 14.3 g/dL Normal 13.0-17.0 [facility] Comment on above: Order Comment: Speci men Type: BLOOD SPECIMEN [facility] Address: [address] [place] [address] Performed By: #### 2 4323-8, 5643-2 #### [facility] CLIA [id number] [address] [place] [address] [place] Immature granulocytes (Bld) [#/Vol] 0.03 10*3/uL Normal <0.10 [facility] Comment on above: Order Comment: Speci men Type: BLOOD SPECIMEN [facility] Address: [address] [place] [address] Performed By: #### 2 4323-8, 5643-2 #### [facility] CLIA [id number] [address] [place] [address] [place] Immature granulocytes/100 WBC (Bld) 0.3 % Normal [facility] Comment on above: Order Comment: Speci men Type: BLOOD SPECIMEN [facility] Address: [address] [place] [address] Performed By: #### 2 4323-8, 5643-2 #### [facility] CLIA [id number] [address] [place] [address] [place] Lymphocytes (Bld) [#/Vol] 2.43 10*3/uL Normal 1.00-4.00 [facility] Comment on above: Order Comment: Speci men Type: BLOOD SPECIMEN [facility] Address: [address] [place] [address] Performed By: #### 2 4323-8, 5643-2 #### [facility] CLIA [id number] [address] [place] [address] [place] Lymphocytes/100 WBC (Bld) 28.2 % Normal [facility] Comment on above: Order Comment: Speci men Type: BLOOD SPECIMEN [facility] Address: [address] [place] [address] Performed By: #### 2 4323-8, 5643-2 #### [facility] CLIA [id number] [address] [place] [address] [place] MCH (RBC) [Entitic mass] 29.2 pg Normal 26.0-34.0 [facility] Comment on above: Order Comment: Speci men Type: BLOOD SPECIMEN [facility] Address: [address] [place] [address] Performed By: #### 2 4323-8, 5643-2 #### [facility] CLIA [id number] [address] [place] [address] [place] MCHC (RBC) [Mass/Vol] 33.3 g/dL Normal 30.5-36.0 [facility] Comment on above: Order Comment: Speci men Type: BLOOD SPECIMEN [facility] Address: [address] [place] [address] Performed By: #### 2 4323-8, 5643-2 #### [facility] CLIA [id number] [address] [place] [address] [place] MCV (RBC) [Entitic vol] 87.6 fL Normal 80.0-100.0 [facility] Comment on above: Order Comment: Speci men Type: BLOOD SPECIMEN [facility] Address: [address] [place] [address] Performed By: #### 2 4323-8, 5643-2 #### [facility] CLIA [id number] [address] [place] [address] [place] Monocytes (Bld) [#/Vol] 0.70 10*3/uL Normal <0.87 [facility] Comment on above: Order Comment: Speci men Type: BLOOD SPECIMEN [facility] Address: [address] [place] [address] Performed By: #### 2 4323-8, 5643-2 #### [facility] CLIA [id number] [address] [place] [address] [place] Monocytes/100 WBC (Bld) 8.1 % Normal [facility] Comment on above: Order Comment: Speci men Type: BLOOD SPECIMEN [facility] Address: [address] [place] [address] Performed By: #### 2 4323-8, 5643-2 #### [facility] CLIA [id number] [address] [place] [address] [place] Neutrophils (Bld) [#/Vol] 5.06 10*3/uL Normal 1.45-7.50 [facility] Comment on above: Order Comment: Speci men Type: BLOOD SPECIMEN [facility] Address: [address] [place] [address] Performed By: #### 2 4323-8, 5643-2 #### [facility] CLIA [id number] [address] [place] [address] [place] Neutrophils/100 WBC (Bld) 58.9 % Normal [facility] Comment on above: Order Comment: Speci men Type: BLOOD SPECIMEN [facility] Address: [address] [place] [address] Performed By: #### 2 4323-8, 5643-2 #### [facility] CLIA [id number] [address] [place] [address] [place] Nucleated RBC (Bld) [#/Vol] 10*3/uL Normal <0.01 [facility] Comment on above: Order Comment: Speci men Type: BLOOD SPECIMEN [facility] Address: [address] [place] [address] Performed By: #### 2 4323-8, 5643-2 #### [facility] CLIA [id number] [address] [place] [address] [place] Nucleated RBC/100 WBC (Bld) [Ratio] 0.0 /100 WBC Normal [facility] Comment on above: Order Comment: Speci men Type: BLOOD SPECIMEN [facility] Address: [address] [place] [address] Performed By: #### 2 4323-8, 5643-2 #### [facility] CLIA [id number] [address] [place], [place] [address] [place] Platelet mean volume (Bld) [Entitic vol] 10.0 fL Normal 9.0-12.7 [facility] Comment on above: Order Comment: Speci men Type: BLOOD SPECIMEN [facility] Address: [address] [place] [address] Performed By: #### 2 4323-8, 5643-2 #### [facility] CLIA [id number] [address] [place], [place] [address] [place] Platelets (Bld) [#/Vol] 305 10*3/uL Normal 150-400 [facility] Comment on above: Order Comment: Speci men Type: BLOOD SPECIMEN [facility] Address: [address] [place] [address] Performed By: #### 2 4323-8, 5643-2 #### [facility] CLIA [id number] [address] [place] [address] [place] RBC (Bld) [#/Vol] 4.90 10*6/uL Normal 4.20-6.00 [facility] Comment on above: Order Comment: Speci men Type: BLOOD SPECIMEN Ordering Facility: [facility] Address: [address] [place] [address] Performed By: #### 2 4323-8, 5643-2 #### [facility] CLIA [id number] [address] [place] [address] [place] WBC (Bld) [#/Vol] 8.61 10*3/uL Normal 3.70-11.00 [facility] Comment on above: Order Comment: Speci men Type: BLOOD SPECIMEN Ordering Facility: [facility] Address: [address] [place] [address] Performed By: #### 2 4323-8, 5643-2 #### [facility] CLIA [id number] [address] [place], [place] [address] [facility] [place] CK SerPl-cCncon 12-27-2023 CK [Catalytic activity/Vol] 616 U/L High 26-192 [facility] Comment on above: Order Comment: Speci men Type: BLOOD SPECIMENOrdering Facility: [facility] Address: [address] [id number] Performed By: #### 9 4500-6 #### [facility] CLIA [id number] [address] [place] [address] CK [Catalytic activity/Vol] 717 U/L High 26-192 [facility] Comment on above: Order Comment: Speci men Type: BLOOD SPECIMEN Ordering Facility: [facility] Address: [facility] [place] [address] Performed By: #### 2 4323-8, 5643-2 #### [facility] CLIA [id number] [address] [place] [address] CK [Catalytic activity/Vol] 787 U/L High 26-192 [facility] Comment on above: Order Comment: Speci men Type: BLOOD SPECIMEN Ordering Facility: [facility] Address: [facility] [place] [address] Performed By: #### 2 4323-8, 5643-2 #### [facility] CLIA [id number] [address] [place] [address] ECG COMPLETEon 12-27-2023 ECG COMPLETE Ventricular Rate : 7 8 BPM Atrial Rate : 78 BPM P-R Interval : 142 ms QRS Duration : 94 ms Q-T Interval : 362 ms QTC Calculation(Bazett) : 412 ms Calculated P [place] : 73 degrees Calculated R [place] : 31 degrees Calculated T [place] : 35 degrees Normal sinus rhythm with sinus arrhythmia Normal ECG When compared with ECG of 26-Dec-2023 22:48, No significant change was found Confirmed by DELFINO CORTES MD ([id number]) on 12/28/2023 10:40:02 PM NAME : MATTY WHITLOCK PID : [id number] : 1990 Gender : Male Race : ORD : [id number] Procedure Date : Dec 27 2023 20:25:13 Edit Date : Dec 28 2023 22:40:08 Diagnosis: Normal sinus rhythm with sinus arrhythmia Normal ECG When compared with ECG of 26-Dec-2023 22:48, No significant change was found Confirmed by DELFINO CORTES MD ([id number]) on 12/28/2023 10:40:02 PM Test Reason : stat Location : 0 : ED EDFTD Overread By : DELFINO CORTES MD Edited By : DELFINO CORTES MD Referred By : , Acquired by : [id number], [facility] ED NOTEon 12-27-2023 ED NOTE HNO ID: [id number] Author: KYLAH TREVIZO RN Service: Emergency Medicine Author Type: Registered Nurse Type: ED Notes Filed: 12/27/2023 22:05 Note Text: Pt offered and declined nicotine patch at this time [facility] ED NOTE HNO ID: [id number] Author: KYLAH TREIVZO RN Service: Emergency Medicine Author Type: Registered Nurse Type: ED Notes Filed: 12/27/2023 21:55 Note Text: Provided deemed pt capacity hold at this time, states room does not need cleared out. Pts belongings removed and placed in yellow gown. 1:1 sitter at bedside. Safety maintained. [facility] ED NOTE HNO ID: [id number] Author: KYLAH TREVIZO RN Service: Emergency Medicine Author Type: Registered Nurse Type: ED Notes Filed: 12/27/2023 21:17 Note Text: Pt provided orange juice, alfonso crackers, and peanut butter at this time. [facility] ED NOTE HNO ID: [id number] Author: KYLAH TREVIZO RN Service: Emergency Medicine Author Type: Registered Nurse Type: ED Notes Filed: 12/27/2023 21:11 Note Text: Pt unable to provide urine sample at this time [facility] ED NOTE HNO ID: [id number] Author: KYLAH TREVIZO RN Service: Emergency Medicine Author Type: Registered Nurse Type: ED Notes Filed: 12/27/2023 21:11 Note Text: PT c/o anxiety. Pt states noises make it worse. Pt states he was here last night for same and left. Pt denies SI/HI. Pt denies auditory/visual hallucinations. Pt resting in cot. Pt denies any needs a this time. [facility] ED NOTE HNO ID: [id number] Author: ELBA AVILA RN Service: ? Author Type: Registered Nurse Type: ED Notes Filed: 12/27/2023 20:54 Note Text: Bed: 06-ED Expected date: Expected time: Means of arrival: Comments: FT-D [facility] ED NOTE HNO ID: [id number] Author: VANNESA TORRES, AZAEL Service: Emergency Medicine Author Type: Registered Nurse Type: ED Notes Filed: 12/27/2023 20:01 Note Text: Pt provided scrubs, towels, soap, toothbrush and toothpaste to be able to clean up after being medically d/c by provider. [facility] ED NOTE HNO ID: [id number] Author: YUDITH SANFORD, AZAEL Service: ? Author Type: Registered Nurse Type: ED Notes Filed: 12/27/2023 12:23 Note Text: Psych triage given pt assistance for homelessness - also security giving pt phone number for homeless assistance [facility] ED NOTE HNO ID: [id number] Author: YUDITH SANFORD, RN Service: ? Author Type: Registered Nurse Type: ED Notes Filed: 12/27/2023 12:18 Note Text: Attempted to call Pts father, he was not able to roller picker pt. Was told to call his mother [phone] - Pts mother said she has not heard from him in weeks and will not be coming ot get him. [facility] ED NOTE HNO ID: [id number] Author: YUDITH SANFORD, AZAEL Service: ? Author Type: Registered Nurse Type: ED Notes Filed: 12/27/2023 11:51 Note Text: Pt continues to be in the bed, resting. Sitter continues to be present [facility] ED NOTE HNO ID: [id number] Author: YUDITH SANFORD, AZAEL Service: ? Author Type: Registered Nurse Type: ED Notes Filed: 12/27/2023 11:51 Note Text: [facility] ED NOTE HNO ID: [id number] Author: YUDITH SANFORD RN Service: ? Author Type: Registered Nurse Type: ED Notes Filed: 12/27/2023 11:50 Note Text: Psych triage called to evaluate the pt. [facility] ED NOTE HNO ID: [id number] Author: MAYUR DEL TORO CT Service: ? Author Type: Clinical Cattle Inspector Type: ED Notes Filed: 12/27/2023 09:42 Note Text: Pt agitated at slight inconvenience, running to bathroom, tearing off gown, sporadic speech. Upon being sternly told to calm down Pt became apologetic immediately and said That wasn't appropriate of me at all, I am sorry [facility] ED NOTE HNO ID: [id number] Author: YUDITH SANFORD, RN Service: ? Author Type: Registered Nurse Type: ED Notes Filed: 12/27/2023 09:38 Note Text: 1st Nicotine patch was placed in sharps container. [facility] ED NOTE HNO ID: [id number] Author: YUDITH SANFORD RN Service: ? Author Type: Registered Nurse Type: ED Notes Filed: 12/27/2023 09:24 Note Text: Pt upset because nicotine patch was not the 21 mg. Let the MD know and 21 MG patch ordered. Will remove the 1st patch as soon as the 2nd patch is available. Pt given his lunch tray. Pt is sweaty to touch. [facility] ED NOTE HNO ID: [id number] Author: YUDITH SANFORD, RN Service: ? Author Type: Registered Nurse Type: ED Notes Filed: 12/27/2023 08:19 Note Text: Called Bharat, no information for this pt at this time. [facility] ED NOTE HNO ID: [id number] Author: YUDITH SANFORD, RN Service: ? Author Type: Registered Nurse Type: ED Notes Filed: 12/27/2023 07:43 Note Text: Received report, assumed care. Checked in on pt, pt resting, breathing is not labored. Sitter present. Room appears safe, belongings are not in the room. [facility] ED NOTE HNO ID: [id number] Author: YVON PORTER RN Service: ? Author Type: Registered Nurse Type: ED Notes Filed: 12/27/2023 06:27 Note Text: Patient is sleeping at this time. Has been cooperative. Patient is in a yellow gown, room has been cleared of contents. Patient belongings labeled and with security. 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 [facility] ED PROV NOTEon 12-27-2023 ED PROV NOTE HNO ID: [id number] Author: TOYIN SAMUEL PA-C Service: ? Author Type: Physician Orientor Type: ED Provider Notes Filed: 12/28/2023 02:41 Note Text: ED Provider Note Patient Name: Matty Whitlock : 1990 SERVICE DATE: 12/27/23 History Patient presents with: Anxiety: Pt states he is anxious about not knowing where to eat, sleep, or get a shower. Denies any SI/HI. Denies any recent ETOH use. Last meth use was yesterday. HPI Matty Whitlock is a 33 year old male who presents to the ED for psychiatric evaluation. Patient states he is anxious. He has been using meth and marijuana with an a stranger last night in the [facility]. States he is anxious since then. Reports that his anxiety is due to being homeless. He has been homeless for several years. States he needs a place to sleep and shower. States he has tried previous homeless shelters however he has been denied from them. States he does not want psychiatric placement. Denies SI or HI. Denies any access to firearms. Nursing/triage notes, assessments, and vitals were reviewed. See MDM/ED course for further HPI. ROS Review of Systems Negative unless otherwise stated in HPI or MDM PAST MEDICAL HISTORY No date: Asthma No date: Bipolar 1 disorder (HCC) 01/30/2020: GERD without esophagitis No date: Psychiatric disorder Comment: depression PAST SURGICAL HISTORY No date: ORTHOPEDICS SURGERY HX No family history on file. Social History Tobacco Use Smoking status: Former Current packs/day: 0.00 Types: Cigarettes Quit date: 03/18/2017 Years since quittin.7 Smokeless tobacco: Never Vaping Use Vaping status: Never Used Substance and Sexual Activity Alcohol use: No Comment: previous alcohol problem Drug use: No Types: Crystal Meth, Marijuana Comment: previous use of crystal meth x1 month Sexual activity: Not on file ALLERGIES No Known Allergies Physical Exam Physical Exam Vitals [12/27/231941] BP Pulse Temp Temp src Resp SpO2 Weight Height 125/89 85 36.6 ?C (97.9 ?F) Oral 16 100 % 63.5 kg (140 lb) 1.702 m (5' 7) General: alert, disheveled HEENT: atraumatic, EOMI, no scleral injection or tearing, mucous membranes moist Neck: supple, no stiffness or restricted ROM, trachea midline Extremities: atraumatic, without cyanosis or edema Skin: warm, dry, no rashes or lesions Neuro: alert, oriented, no lateralized or focal deficits, moving all 4 extremities, no gross weakness, CN grossly intact Psych: Agitated, not suicidal or homicidal Diagnostic Testing ED Labs Ordered and Reviewed BASIC METABOLIC PANEL - Abnormal; Notable for the following components: Result Value Ref Range Glucose 65 (*) 70 - 100 mg/dL Chloride 109 (*) 98 - 107 mmol/L Anion Gap <3 (*) 5 - 16 mmol/L All other components within normal limits TOXICOLOGY SCREEN, ROUTINE URINE - Abnormal; Notable for the following components: Cocaine Urine Positive (*) Negative Amphetamines Urine Positive (*) Negative Cannabinoids, Urine Positive (*) Negative All other components within normal limits Narrative: Urine Drugs of Abuse results are qualitative, providing a preliminary analytical result. A positive result for an assay should be confirmed by another nonimmunological, reference method. A negative result indicates that the assay material is either not present, or present at levels below the cutoff threshold for the analytical method range (AMR) validation. CREATINE KINASE/CK - Abnormal; Notable for the following components: CK 616 (*) 26 - 192 U/L All other components within normal limits CREATINE KINASE/CK - Abnormal; Notable for the following components: CK 407 (*) 26 - 192 U/L All other components within normal limits HIGH SENSITIVITY TROPONIN I - Normal ETHANOL/ALCOHOL - Normal COMPLETE BLOOD COUNT AND DIFFERENTIAL URINALYSIS WITH MICROSCOPIC, REFLEX CULTURE No orders to display Procedures Procedures Medications received in ED Medications nicotine 7 mg/24 hr 1 Patch (NICODERM) (1 Patch TRANSDERMAL Given 12/28/23103) And nicotine -- REMOVE patch (has no administration in time range) And nicotine - verify patch ( OTHER Patch On 12/27/23104) hydrOXYzine HCl 50 mg tab(s) (ATARAX) (50 mg ORAL Given 12/27/232148) NaCl 0.9% 1,000 mL iv bolus (0 mL INTRAVENOUS Infusion Complete 12/27/232341) NaCl 0.9% 1,000 mL iv bolus (0 mL INTRAVENOUS Infusion Complete 12/27/232341) Discharge Medications Discharge Medication List as of 12/28/2023 2:31 AM ED Course / Clinical Impression ED Course as of 12/28/23 0241 Toyin Samuel's Documentation Mon Dec 28, 2023 0227 Discussed case with psych intake. They do not believe patient meets any criteria for admission. States that he is not manic, his speech is not pressured, he remains calm and speech is of appropriate volume. States that he explicitly expressed that he just wanted a place to sleep. He will be discharged at (more content not included)... [facility] ED PROV NOTE HNO ID: [id number] Author: MARISA GOMEZ MD Service: Emergency Medicine Author Type: Physician Type: ED Provider Notes Filed: 12/27/2023 06:30 Note Text: ED CONTINUATION OF CARE NOTE Code Status: Full Code Assumed care from: Dr Riley Presentation / Findings / Interventions / Plan / Items to Follow Up: 33-year-old presenting for evaluation for hallucinations with substance abuse. Patient with medication noncompliance. CK at the time of signout was 1034. Given 2 L of fluid. Repeat CK at 787. Given another liter of fluid. CK at 717. Given CK downtrending patient medically cleared for psychiatric evaluation. Awaits take psychiatry recommendations. Signed out department physician for final disposition. Clinical Impressions as of 12/27/23 0627 Acute psychosis (HCC) Cocaine abuse (HCC) Amphetamine abuse (HCC) History of bipolar disorder Noncompliance with medication regimen Medical Decision Making SIGNATURE: Marisa Gomez MD PATIENT NAME: Matty Whitlock DATE: December 27, 2023 TIME: 6:27 AM PAGER/CONTACT #: MARISA GOMEZ 12/27/[address] [facility] ED Triage Noteon 12-27-2023 ED Triage Note HNO ID: [id number] Author: ENRIQUE URRUTIA PA-C Service: ? Author Type: Physician Orientor Type: ED Triage Notes Filed: 12/27/2023 20:06 Note Text: ED TRIAGE PROVIDER NOTE Patient Name: Matty Whitlock Service Date: 12/27/23 BRIEF HPI: This is a 33 year old male who presents to the ED with: Anxiety. Patient states that he has been overwhelmed with life and feels overstimulated with everything around him. Patient appeared manic with agitation and rambling speech. BRIEF EXAM: NAD Awake and Alert Non labored breathing No focal neurological deficits Pressured speech. Manic appearing. INITIAL WORKUP AND DECISION MAKING: Orders Placed This Encounter BASIC METABOLIC PANEL CBC + AUTO DIFF SINGLE HIGH SENSITIVITY TROPONIN I ALCOHOL / ETHANOL BLOOD Urinalysis w Microscopic, reflex Culture URINE DRUG SCREEN ECG COMPLETE SIGNATURE: Enrique Urrutia PA-C Normal [facility] Ethanol SerPl-mCncon 024 Ethanol [Mass/Vol] mg/dL Normal <0.010 [facility] Comment on above: Order Comment: Speci men Type: BLOOD SPECIMENOrdering Facility: [facility] Address: [address] [place] [address] Performed By: #### 9 4500-6 #### [facility] CLIA [id number] [address] [place] [address] [place] HIGH SENSITIVITY TROPONIN Io n 12-27-2023 Tropinin I.cardiac panel High sensitivity method 2.8 pg/mL Normal 0.0-54.0 [facility] Comment on above: Order Comment: Speci men Type: BLOOD SPECIMEN Ordering Facility: [facility] Address: [address] [place] [address] Performed By: #### 2 4323-8, 5643-2 #### [facility] CLIA [id number] [address] [place] [address] [place] TOXICOLOGY SCREEN, ROUTINE U RINEon 12-27-2023 Amphetamines Confirm (U) [Mass/Vol] Positive Abnormal Negative [facility] Comment on above: Order Comment: Speci men Type: URINE SPECIMENOrdering Facility: [facility] Address: [address] [place] [address] Result Comment: Cuto ff threshold at 1000 ng/mL. Performed By: #### 9 4500-6 #### [facility] CLIA [id number] [address] [place] [address] [place] BARBITURATES, URINE Negative Normal Negative [facility] Comment on above: Order Comment: Speci men Type: URINE SPECIMENOrdering Facility: [facility] Address: [address] [place] [address] Result Comment: Cuto ff threshold at 200 ng/mL. Performed By: #### 9 4500-6 #### [facility] CLIA [id number] [address] [place] [address] [place] BENZODIAZEPINES, UR Negative Normal Negative [facility] Comment on above: Order Comment: Speci men Type: URINE SPECIMENOrdering Facility: [facility] Address: [address] [place] [address] Result Comment: Cuto ff threshold at 200 ng/mL. Performed By: #### 9 4500-6 #### [facility] CLIA [id number] [address] [place] [address] [place] Cannabinoids Screen Ql (U) Positive Abnormal Negative [facility] Comment on above: Order Comment: Speci men Type: URINE SPECIMENOrdering Facility: [facility] Address: [address] [place] [address] Result Comment: Cuto ff threshold at 50 ng/mL. Performed By: #### 9 4500-6 #### [facility] CLIA [id number] [address] [place] [address] [place] Cocaine Ql (U) Positive Abnormal Negative [facility] Comment on above: Order Comment: Speci men Type: URINE SPECIMENOrdering Facility: [facility] Address: [address] [place] [address] Result Comment: Cuto ff threshold at 300 ng/mL. Performed By: #### 9 4500-6 #### [facility] CLIA [id number] [address] [place] [address] [place] Opiates Screen Ql (U) Negative Normal Negative [facility] Comment on above: Order Comment: Speci men Type: URINE SPECIMENOrdering Facility: [facility] Address: [address] [place] [address] Result Comment: Cuto ff threshold at 300 ng/mL. Performed By: #### 9 4500-6 #### [facility] CLIA [id number] [address] [place] [address] [place] Phencyclidine Ql (U) Negative Normal Negative [facility] Comment on above: Order Comment: Speci men Type: URINE SPECIMENOrdering Facility: [facility] Address: [address] [place] [address] Result Comment: Cuto ff threshold at 25 ng/mL. Performed By: #### 9 4500-6 #### [facility] CLIA [id number] [address] [place] [address] [place] Urinalysis complete panel (U )on 12-27-2023 Bacteria LM.HPF (Urine sed) [#/Area] None Seen Normal None Seen [facility] Comment on above: Order Comment: Speci men Type: URINE SPECIMENOrdering Facility: [facility] Address: [address] [place] [address] Performed By: #### 9 4500-6 #### [facility] CLIA [id number] [address] [place] [address] [place] Bilirubin Ql (U) Negative Normal Negative [facility] Comment on above: Order Comment: Speci men Type: URINE SPECIMENOrdering Facility: [facility] Address: [address] [place] [address] Performed By: #### 9 4500-6 #### [facility] CLIA [id number] [address] [place] [address] [place] Clarity (Unsp spec) Clear Normal Clear [facility] Comment on above: Order Comment: Speci men Type: URINE SPECIMENOrdering Facility: [facility] Address: [address] [place] [address] Performed By: #### 9 4500-6 #### [facility] CLIA [id number] [address] [place] [address] [place] Color (U) Straw Normal Yellow [facility] Comment on above: Order Comment: Speci men Type: URINE SPECIMENOrdering Facility: [facility] Address: [address] [place] [address] Performed By: #### 9 4500-6 #### [facility] CLIA [id number] [address] [place] [address] [place] Epithelial cells LM.HPF (Urine sed) [#/Area] Few Normal [facility] Comment on above: Order Comment: Speci men Type: URINE SPECIMENOrdering Facility: [facility] Address: [address] [place] [address] Performed By: #### 9 4500-6 #### [facility] CLIA [id number] [address] [place] [address] [place] Glucose Test strip (U) [Mass/Vol] Negative Normal Negative [facility] Comment on above: Order Comment: Speci men Type: URINE SPECIMENOrdering Facility: [facility] Address: [address] [place] [address] Performed By: #### 9 4500-6 #### [facility] CLIA [id number] [address] [place] [address] [place] Hemoglobin Ql (U) Negative Normal Negative [facility] Comment on above: Order Comment: Speci men Type: URINE SPECIMENOrdering Facility: [facility] Address: [address] [place] [address] Performed By: #### 9 4500-6 #### [facility] CLIA [id number] [address] [place] [address] [place] Ketones Ql (U) Negative Normal Negative [facility] Comment on above: Order Comment: Speci men Type: URINE SPECIMENOrdering Facility: [facility] Address: [address] [place] [address] Performed By: #### 9 4500-6 #### [facility] CLIA [id number] [address] [place] [address] [place] Leukocyte esterase Test strip Ql (U) Negative Normal Negative [facility] Comment on above: Order Comment: Speci men Type: URINE SPECIMENOrdering Facility: [facility] Address: [address] [place] [address] Performed By: #### 9 4500-6 #### [facility] CLIA [id number] [address] [place] [address] [place] Nitrite Ql (U) Negative Normal Negative [facility] Comment on above: Order Comment: Speci men Type: URINE SPECIMENOrdering Facility: [facility] Address: [address] [place] [address] Performed By: #### 9 4500-6 #### [facility] CLIA [id number] [address] [place] [address] [place] pH (U) 6.0 [pH] Normal 5.0-8.0 [facility] Comment on above: Order Comment: Speci men Type: URINE SPECIMENOrdering Facility: [facility] Address: [address] [place] [address] Performed By: #### 9 4500-6 #### [facility] CLIA [id number] [address] [place] [address] [place] Protein (U) [Mass/Vol] Negative Normal Negative [facility] Comment on above: Order Comment: Speci men Type: URINE SPECIMENOrdering Facility: [facility] Address: [address] [place] [address] Performed By: #### 9 4500-6 #### [facility] [place] [id number] [address] [place] [address] [place] RBC LM.HPF (Urine sed) [#/Area] 0-3 /HPF Normal 0-3 /HPF [facility] Comment on above: Order Comment: Speci men Type: URINE SPECIMENOrdering Facility: [facility] Address: [address] [place] [address] Performed By: #### 9 4500-6 #### [facility] IA [id number] [address] [place] [address] [place] Specific gravity (U) [Rel density] 1.009 Normal 1.005-1.030 [facility] Comment on above: Order Comment: Speci men Type: URINE SPECIMENOrdering Facility: [facility] Address: [address] [place] [address] Performed By: #### 9 4500-6 #### [facility] CLIA [id number] [address] [place] [address] Urobilinogen Ql (U) Negative Normal Negative [facility] Comment on above: Order Comment: Speci men Type: URINE SPECIMENOrdering Facility: [facility] Address: [address] [place] [address] Performed By: #### 9 4500-6 #### [facility] CLIA [id number] [address] [place] [address] OF [place] WBC LM.HPF (Urine sed) [#/Area] 0-5 /HPF Normal 0-5 /HPF [facility] Comment on above: Order Comment: Speci men Type: URINE SPECIMENOrdering Facility: [facility] Address: [address] [place] [address] Performed By: #### 9 4500-6 #### [facility] CLIA [id number] [address] [place] [address] OF [place] CBC panel Auto (Bld)on 12-25 Erythrocyte distribution width (RBC) [Ratio] 14.4 % Normal 11.5-15.0 [facility] Comment on above: Order Comment: Speci men Type: URINE SPECIMEN [facility] Address: [address] [place] [address] Performed By: #### U TOX2 #### [facility] CLIA [id number] [address] [place] [address] Hematocrit (Bld) [Volume fraction] 40.8 % Normal 39.0-51.0 [facility] Comment on above: Order Comment: Speci men Type: URINE SPECIMEN [facility] Address: [address] [place] [address] Performed By: #### U TOX2 #### [facility] CLIA [id number] [address] [place] [address] [place] Hemoglobin (Bld) [Mass/Vol] 13.7 g/dL Normal 13.0-17.0 [facility] Comment on above: Order Comment: Speci men Type: URINE SPECIMEN [facility] Address: [address] [place] [address] Performed By: #### U TOX2 #### [facility] CLIA [id number] [address] [place] [address] MCH (RBC) [Entitic mass] 28.9 pg Normal 26.0-34.0 [facility] Comment on above: Order Comment: Speci men Type: URINE SPECIMEN [facility] Address: [address] [place] [address] Performed By: #### U TOX2 #### [facility] CLIA [id number] [address] [place] [address] [place] MCHC (RBC) [Mass/Vol] 33.6 g/dL Normal 30.5-36.0 [facility] Comment on above: Order Comment: Speci men Type: URINE SPECIMEN [facility] Address: [address] [place] [address] Performed By: #### U TOX2 #### [facility] CLIA [id number] [address] [place] [address] [place] MCV (RBC) [Entitic vol] 86.1 fL Normal 80.0-100.0 [facility] Comment on above: Order Comment: Speci men Type: URINE SPECIMEN [facility] Address: [address] [place] [address] Performed By: #### U TOX2 #### [facility] CLIA [id number] [address] [place] [address] [place] Nucleated RBC (Bld) [#/Vol] 10*3/uL Normal <0.01 [facility] Comment on above: Order Comment: Speci men Type: URINE SPECIMEN [facility] Address: [address] [place] [address] Performed By: #### U TOX2 #### [facility] CLIA [id number] [address] [place] [address] [place] Platelet mean volume (Bld) [Entitic vol] 9.7 fL Normal 9.0-12.7 [facility] Comment on above: Order Comment: Speci men Type: URINE SPECIMEN [facility] Address: [address] [place] [address] Performed By: #### U TOX2 #### [facility] CLIA [id number] [address] [place] [address] [place] Platelets (Bld) [#/Vol] 299 10*3/uL Normal 150-400 [facility] Comment on above: Order Comment: Speci men Type: URINE SPECIMEN [facility] Address: [address] [place] [address] Performed By: #### U TOX2 #### [facility] CLIA [id number] [address] [place] [address] [place] RBC (Bld) [#/Vol] 4.74 10*6/uL Normal 4.20-6.00 [facility] Comment on above: Order Comment: Speci men Type: URINE SPECIMEN [facility] Address: [address] [place] [address] Performed By: #### U TOX2 #### [facility] CLIA [id number] [address] [place] [address] [place] WBC (Bld) [#/Vol] 10.95 10*3/uL Normal 3.70-11.00 [facility] Comment on above: Order Comment: Speci men Type: URINE SPECIMEN [facility] Address: [address] [place] [address] Performed By: #### U TOX2 #### [facility] CLIA [id number] [address] [place] [address] [facility] OF [place] CK SerPl-cCncon 12-26-2023 CK [Catalytic activity/Vol] 1034 U/L High 26-192 [facility] Comment on above: Order Comment: Speci men Type: URINE SPECIMEN [facility] Address: [address] [place] [address] Result Comment: CRIT ICAL Performed By: #### U TOX2 #### [facility] CLIA [id number] [address] [place], [place] [address] [facility] Comprehensive metabolic 2000 panelon 12-26-2023 Albumin [Mass/Vol] 3.9 g/dL Normal 3.2-5.0 [facility] Comment on above: Order Comment: Speci men Type: URINE SPECIMEN [facility] Address: [address] [place] [address] Performed By: #### U TOX2 #### [facility] CLIA [id number] [address] [place] [address] [place] ALP [Catalytic activity/Vol] 65 U/L Normal 45-117 [facility] Comment on above: Order Comment: Speci men Type: URINE SPECIMEN [facility] Address: [address] [place] [address] Performed By: #### U TOX2 #### [facility] CLIA [id number] [address] [place] [address] [place] ALT [Catalytic activity/Vol] 30 U/L Normal 13-61 [facility] Comment on above: Order Comment: Speci men Type: URINE SPECIMEN [facility] Address: [address] [place] [address] Result Comment: Resu lts may be falsely depressed after the administration of Sulfasalazine and/or Sulfapyridine. Performed By: #### U TOX2 #### [facility] CLIA [id number] [address] [place] [address] [place] Anion gap [Moles/Vol] 5 mmol/L Normal 5-16 [facility] Comment on above: Order Comment: Speci men Type: URINE SPECIMEN [facility] Address: [address] [place] [address] Performed By: #### U TOX2 #### [facility] CLIA [id number] [address] [place] [address] [place] AST [Catalytic activity/Vol] 39 U/L High 8-34 [facility] Comment on above: Order Comment: Speci men Type: URINE SPECIMEN [facility] Address: [address] [place] [address] Result Comment: Resu lts may be falsely depressed after the administration of Sulfasalazine and/or Sulfapyridine. Performed By: #### U TOX2 #### [facility] CLIA [id number] [address] [place] [address] [place] Bilirubin [Mass/Vol] 0.6 mg/dL Normal 0.2-1.0 [facility] Comment on above: Order Comment: Speci men Type: URINE SPECIMEN [facility] Address: [address] [place] [address] Performed By: #### U TOX2 #### [facility] CLIA [id number] [address] [place] [address] [place] Calcium [Mass/Vol] 9.9 mg/dL Normal 8.5-10.5 [facility] Comment on above: Order Comment: Speci men Type: URINE SPECIMEN [facility] Address: [address] [place] [address] Performed By: #### U TOX2 #### [facility] CLIA [id number] [address] [place] [address] [place] Chloride [Moles/Vol] 106 mmol/L Normal 98-107 [facility] Comment on above: Order Comment: Speci men Type: URINE SPECIMEN [facility] Address: [address] [place] [address] Performed By: #### U TOX2 #### [facility] CLIA [id number] [address] [place] [address] [place] CO2 [Moles/Vol] 27 mmol/L Normal 21-32 [facility] Comment on above: Order Comment: Speci men Type: URINE SPECIMEN [facility] Address: [address] [place] [address] Performed By: #### U TOX2 #### [facility] CLIA [id number] [address] [place] [address] [place] Creatinine [Mass/Vol] 0.83 mg/dL Normal 0.50-1.40 [facility] Comment on above: Order Comment: Speci men Type: URINE SPECIMEN [facility] Address: [address] [place] [address] Result Comment: Cathleen ents receiving either N-Acetylcysteine (NAC) or Metamizole prior to venipuncture, may have falsely depressed results. Performed By: #### U TOX2 #### [facility] CLIA [id number] [address] [place] [address] OF [facility] Creatinine and Glomerular filtration rate.predicted panel (S/P/Bld) 119 mL/min/1.73m??? Normal >=60 [facility] Comment on above: Order Comment: Speci men Type: URINE SPECIMEN [facility] Address: [address] [place] [address] Result Comment: Kenyetta mated Glomerular Filtration Rate (eGFR) is calculated using the 2020 CKD-EPI creatinine equation. This equation utilizes serum creatinine, sex, and age as parameters. The creatinine assay has traceable calibration to isotope dilution-mass spectrometry. Refer to KDIGO guidelines for clinical interpretation. In patients with unstable renal function, e.g. those with acute kidney injury, the eGFR may not accurately reflect actual GFR. Performed By: #### U TOX2 #### [facility] CLIA [id number] [address] [place] [address] [place] Glucose [Mass/Vol] 94 mg/dL Normal 70-100 [facility] Comment on above: Order Comment: Speci men Type: URINE SPECIMEN [facility] Address: [address] [place] [address] Result Comment: The [place] Diabetes Association (ADA) provides guidance for cutoff values for fasting glucose and random glucose. The ADA defines fasting as no caloric intake for at least 8 hours. Fasting plasma glucose results between 100 to 125 mg/dL indicate increased risk for diabetes (prediabetes). Fasting plasma glucose results greater than or equal to 126 mg/dL meet the criteria for diagnosis of diabetes. In the absence of unequivocal hyperglycemia, results should be confirmed by repeat testing. In a patient with classic symptoms of hyperglycemia or hyperglycemic crisis, random plasma glucose results greater than or equal to 200 mg/dL meet the criteria for diagnosis of diabetes. Reference: Standards of Medical Care in Diabetes 2016, [place] [employer]. Diabetes Care. 2016.39(Suppl 1). Results may be falsely elevated after the administration of Sulfapyridine. Results may be falsely depressed after the administration of Sulfasalazine. Performed By: #### U TOX2 #### [facility] CLIA [id number] [address] [place] [address] [place] Potassium [Moles/Vol] 3.9 mmol/L Normal 3.5-5.1 [facility] Comment on above: Order Comment: Speci men Type: URINE SPECIMEN [facility] Address: [address] [place] [address] Performed By: #### U TOX2 #### [facility] CLIA [id number] [address] [place] [address] [place] Protein [Mass/Vol] 6.5 g/dL Normal 6.0-8.5 [facility] Comment on above: Order Comment: Speci men Type: URINE SPECIMEN [facility] Address: [address] [place] [address] Performed By: #### U TOX2 #### [facility] CLIA [id number] [address] [place] [address] [place] Sodium [Moles/Vol] 138 mmol/L Normal 136-145 [facility] Comment on above: Order Comment: Speci men Type: URINE SPECIMEN [facility] Address: [address] [place] [address] Performed By: #### U TOX2 #### [facility] CLIA [id number] [address] [place] [address] [place] Urea nitrogen [Mass/Vol] 12 mg/dL Normal 7-26 [facility] Comment on above: Order Comment: Speci men Type: URINE SPECIMEN [facility] Address: [address] [place] [address] Performed By: #### U TOX2 #### [facility] CLIA [id number] [address] [place] [address] [place] ECG COMPLETEon 12-26-2023 ECG COMPLETE Ventricular Rate : 9 4 BPM Atrial Rate : 94 BPM P-R Interval : 136 ms QRS Duration : 92 ms Q-T Interval : 348 ms QTC Calculation(Bazett) : 435 ms Calculated P [place] : 76 degrees Calculated R [place] : 71 degrees Calculated T [place] : 42 degrees Normal sinus rhythm with sinus arrhythmia Normal ECG When compared with ECG of 14-Sep-2023 17:02, No significant change was found Confirmed by DELFINO CORTES MD ([id number]) on 12/27/2023 12:16:51 PM NAME : MATTY WHITLOCK PID : [id number] : 1990 Gender : Male Race : ORD : [id number] Procedure Date : Dec 26 2023 22:48:15 Edit Date : Dec 27 2023 12:16:55 Diagnosis: Normal sinus rhythm with sinus arrhythmia Normal ECG When compared with ECG of 14-Sep-2023 17:02, No significant change was found Confirmed by DELFINO CORTES MD ([id number]) on 12/27/2023 12:16:51 PM Test Reason : STAT Location : 0 : ED [id number] Overread By : DELFINO OCRTES MD Edited By : DELFINO CORTES MD Referred By : , Acquired by : [id number], [facility] ED NOTEon 12-26-2023 ED NOTE HNO ID: [id number] Author: EVAN CHAUDHARI, Medic Service: ? Author Type: Literacy Consultant and Cattle Inspector Type: ED Notes Filed: 12/26/2023 23:29 Note Text: Pt threw cheeze its across the room. Pt asked for urinal. Pt tprovided with urinal. Pt picking up cheese its when told to. Pt appears to be getting agitated from noises from outside the room. Rn notified [facility] ED NOTE HNO ID: [id number] Author: EVAN CHAUDHARI, Medic Service: ? Author Type: Literacy Consultant and Cattle Inspector Type: ED Notes Filed: 12/26/2023 22:58 Note Text: Notifed by Martita that pt needed a sitter. Rooom cleared out by Deyvi YAO. Pt belongigns removed and labeled and placed in silver cart by security. Pt agreeable to EKG and blood work. IV placed. Pt requested box lunch and something to drink. Water and boxed lunch provided. Sitter at bedside. Pt continuing with flight of ideas but remains calm and cooperative. [facility] ED NOTE HNO ID: [id number] Author: MARTITA ECKERT, RN Service: ? Author Type: Registered Nurse Type: ED Notes Filed: 12/26/2023 22:47 Note Text: Pt diminished capacity hold at this time, pt changed into yellow gown, belongings secured with security, room cleared out per protocol, sitter at bedside, safety maintained. [facility] ED NOTE HNO ID: [id number] Author: SHANE LANDA Medic Service: ? Author Type: Literacy Consultant and Cattle Inspector Type: ED Notes Filed: 12/26/2023 22:19 Note Text: Bed: 29-ED Expected date: Expected time: Means of arrival: Comments: Jacqui [facility] ED PROV NOTEon 12-26-2023 ED PROV NOTE HNO ID: [id number] Author: TUTU RILEY DO Service: ? Author Type: Physician Type: ED Provider Notes Filed: 12/26/2023 23:44 Note Text: ED Provider Note Patient Name: Matty Whitlock : 1990 SERVICE DATE: 12/26/23 History Patient presents with: Anxiety: Pt presents from home via ems for anxiety, feels tightness and sob, pt having flight of ideas, denies SI/HI. Patient is a 33-year-old male with history of schizoaffective disorder and bipolar disorder that presents to the emergency department with anxiety, flight of ideas. Patient does have a prior history of crystal meth use and marijuana use, denies any current meth use but states he is still using marijuana. He states he has not been compliant with medications for a long period of time now. Patient has significant flight of ideas and is quite difficult to get an organized history from him. He is denying any current physical complaints at this time. History provided by: Patient PAST MEDICAL HISTORY No date: Asthma No date: Bipolar 1 disorder ([facility]) 01/30/2020: GERD without esophagitis No date: Psychiatric disorder Comment: depression PAST SURGICAL HISTORY No date: ORTHOPEDICS SURGERY HX No family history on file. Social History Tobacco Use Smoking status: Former Current packs/day: 0.00 Types: Cigarettes Quit date: 03/18/2017 Years since quittin.7 Smokeless tobacco: Never Vaping Use Vaping status: Never Used Substance and Sexual Activity Alcohol use: No Comment: previous alcohol problem Drug use: No Types: Crystal Meth, Marijuana Comment: previous use of crystal meth x1 month Sexual activity: Not on file ALLERGIES No Known Allergies Review of Systems All other systems reviewed and are negative. Physical Exam Vitals [12/26/23 2220] BP Pulse Temp Temp src Resp SpO2 Weight Height 129/89 (!) 101 36.8 ?C (98.2 ?F) -- 18 100 % 63.5 kg (140 lb) 1.727 m (5' 8) Physical Exam Vitals and nursing note reviewed. Constitutional: General: He is not in acute distress. HENT: Nose: Nose normal. Mouth/Throat: Mouth: Mucous membranes are moist. Pharynx: Oropharynx is clear. Eyes: Extraocular Movements: Extraocular movements intact. Pupils: Pupils are equal, round, and reactive to light. Cardiovascular: Rate and Rhythm: Regular rhythm. Tachycardia present. Pulses: Normal pulses. Heart sounds: Normal heart sounds. Pulmonary: Effort: Pulmonary effort is normal. No respiratory distress. Breath sounds: Normal breath sounds. Abdominal: Palpations: Abdomen is soft. Tenderness: There is no abdominal tenderness. Musculoskeletal: General: Normal range of motion. Right lower leg: No edema. Left lower leg: No edema. Skin: General: Skin is warm and dry. Capillary Refill: Capillary refill takes less than 2 seconds. Neurological: General: No focal deficit present. Mental Status: He is alert and oriented to person, place, and time. Cranial Nerves: No dysarthria or facial asymmetry. Psychiatric: Mood and Affect: Mood is anxious. Speech: Speech is rapid and pressured and tangential. Behavior: Behavior is hyperactive. Thought Content: Thought content is paranoid and delusional. Thought content does not include homicidal or suicidal ideation. Diagnostic Testing ED Labs Ordered and Reviewed - No data to display Procedures ED Course / Clinical Impression Clinical Impressions as of 12/26/23 2343 Acute psychosis (HCC) Cocaine abuse (HCC) Amphetamine abuse (HCC) History of bipolar disorder Noncompliance with medication regimen Diminished Capacity (From admission, onward) Ordered Status Ordering Provider 12/26/23 2232 Diminished Mental Capacity (This order expires after 24 hours) [[id number]] Continuous x 24 hours Expiring References: Against Medical Advice (AMA) Policy Patients Without Surrogate Standard Operating Procedure Against Medical Advice (AMA) Policy ([place] Only) Question Answer Comment I have evaluated this patient and based on my examination determined that the patient has a primary diagnosis of: Psychosis At present, patient lacks sufficient decision making ability to make informed decisions to leave the hospital, therefore, Patient should not be allowed to leave the hospital against medical advice Ordered TUTU RILEY MDM / Disposition / Plan Patient is a 33-year-old male with history of schizoaffective disorder and bipolar disorder that presents to the emergency department with anxiety, flight of ideas. Patient does have a prior history of crystal meth use and marijuana use, denies any current meth use but states he is still using marijuana. He states he has not been compliant with medications for a long period of time now. Patient has significant flight of ideas and is quite difficult to get an organized history from him. He is denying any current physical complaints at this time. Here in the e (more content not included)... Normal [facility] Ethanol SerPl-ncon 024 Ethanol [Mass/Vol] mg/dL Normal <0.010 [facility] Comment on above: Order Comment: Speci men Type: URINE SPECIMEN [facility] Address: [address] [place] [address] Performed By: #### U TOX2 #### [facility] CLIA [id number] [address] [place] [address] [place] TOXICOLOGY SCREEN, ROUTINE U RINEon 12-26-2023 Amphetamines Confirm (U) [Mass/Vol] Positive Abnormal Negative [facility] Comment on above: Order Comment: Speci men Type: URINE SPECIMEN [facility] Address: [address] [place] [address] Result Comment: Cuto ff threshold at 1000 ng/mL. Performed By: #### U TOX2 #### [facility] CLIA [id number] [address] [place] [address] [place] BARBITURATES, URINE Negative Normal Negative [facility] Comment on above: Order Comment: Speci men Type: URINE SPECIMEN [facility]ing [facility] Address: [address] [place] [address] Result Comment: Cuto ff threshold at 200 ng/mL. Performed By: #### U TOX2 #### [facility] CLIA [id number] [address] [place] [address] [place] BENZODIAZEPINES, UR Negative Normal Negative [facility] Comment on above: Order Comment: Speci men Type: URINE SPECIMEN Ordering [facility]: [facility] Address: [address] [place] [address] Result Comment: Cuto ff threshold at 200 ng/mL. Performed By: #### U TOX2 #### [facility] CLIA [id number] [address] [place] [address] [place] Cannabinoids Screen Ql (U) Positive Abnormal Negative [facility] Comment on above: Order Comment: Speci men Type: URINE SPECIMEN Ordering [facility] Address: [address] [place] [address] Result Comment: Cuto ff threshold at 50 ng/mL. Performed By: #### U TOX2 #### [facility] CLIA [id number] [address] [place] [address] [place] Cocaine Ql (U) Positive Abnormal Negative [facility] Comment on above: Order Comment: Speci men Type: URINE SPECIMEN Ordering [facility]: [facility] Address: [address] [place] [address] Result Comment: Cuto ff threshold at 300 ng/mL. Performed By: #### U TOX2 #### [facility] CLIA [id number] [address] [place] [address] [place] Opiates Screen Ql (U) Negative Normal Negative [facility] Comment on above: Order Comment: Speci men Type: URINE SPECIMEN [facility]ing [facility] Address: [address] [place] [address] Result Comment: Cuto ff threshold at 300 ng/mL. Performed By: #### U TOX2 #### [facility] CLIA [id number] [address] [place] [address] STATES [facility] Phencyclidine Ql (U) Negative Normal Negative [facility] Comment on above: Order Comment: Speci men Type: URINE SPECIMEN Ordering Facility: [facility] Address: [address] [place] [address] Result Comment: Cuto ff threshold at 25 ng/mL. Performed By: #### U TOX2 #### [facility] CLIA [id number] [address] [place] [address] [place] Urinalysis complete panel (U )on 12-26-2023 Bacteria LM.HPF (Urine sed) [#/Area] Rare Abnormal None Seen [facility] Comment on above: Order Comment: Speci men Type: URINE SPECIMEN Ordering Facility: [facility] Address: [address] [place] [address] Performed By: #### U TOX2 #### [facility] CLIA [id number] [address] [place] [address] [place] Bilirubin Ql (U) Negative Normal Negative [facility] Comment on above: Order Comment: Speci men Type: URINE SPECIMEN Ordering Facility: [facility] Address: [address] [place] [address] Performed By: #### U TOX2 #### [facility] CLIA [id number] [address] [place] [address] [place] Clarity (Unsp spec) Clear Normal Clear [facility] Comment on above: Order Comment: Speci men Type: URINE SPECIMEN Ordering Facility: [facility] Address: [address] [place] [address] Performed By: #### U TOX2 #### [facility] CLIA [id number] [address] [place] [address] [place] Color (U) Colorless Normal Yellow [facility] Comment on above: Order Comment: Speci men Type: URINE SPECIMEN Ordering Facility: [facility] Address: [address] [place] [address] Performed By: #### U TOX2 #### [facility] CLIA [id number] [address] [place] [address] [place] Epithelial cells LM.HPF (Urine sed) [#/Area] None Seen Normal [facility] Comment on above: Order Comment: Speci men Type: URINE SPECIMEN Ordering Facility: [facility] Address: [address] [place] [address] Performed By: #### U TOX2 #### [facility] CLIA [id number] [address] [place] [address] [place] Glucose Test strip (U) [Mass/Vol] Negative Normal Negative [facility] Comment on above: Order Comment: Speci men Type: URINE SPECIMEN Ordering Facility: [facility] Address: [address] [place] [address] Performed By: #### U TOX2 #### [facility] CLIA [id number] [address] [place] [address] [place] Hemoglobin Ql (U) Negative Normal Negative [facility] Comment on above: Order Comment: Speci men Type: URINE SPECIMEN Ordering Facility: [facility] Address: [address] [place] [address] Performed By: #### U TOX2 #### [facility] CLIA [id number] [address] [place] [address] [place] Ketones Ql (U) Negative Normal Negative [facility] Comment on above: Order Comment: Speci men Type: URINE SPECIMEN Ordering Facility: [facility] Address: [address] [place] [address] Performed By: #### U TOX2 #### [facility] CLIA [id number] [address] [place] [address] [place] Leukocyte esterase Test strip Ql (U) Negative Normal Negative [facility] Comment on above: Order Comment: Speci men Type: URINE SPECIMEN Ordering Facility: [facility] Address: [address] [place] [address] Performed By: #### U TOX2 #### [facility] CLIA [id number] [address] [place] [address] [place] Nitrite Ql (U) Negative Normal Negative [facility] Comment on above: Order Comment: Speci men Type: URINE SPECIMEN Ordering Facility: [facility] Address: [address] [place] [address] Performed By: #### U TOX2 #### [facility] CLIA [id number] [address] [place] [address] [place] pH (U) 7.0 [pH] Normal 5.0-8.0 [facility] Comment on above: Order Comment: Speci men Type: URINE SPECIMEN Ordering Facility: [facility] Address: [address] [place] [address] Performed By: #### U TOX2 #### [facility] CLIA [id number] [address] [place] [address] [place] Protein (U) [Mass/Vol] Negative Normal Negative [facility] Comment on above: Order Comment: Speci men Type: URINE SPECIMEN Ordering Facility: [facility] Address: [address] [place] [address] Performed By: #### U TOX2 #### [facility] CLIA [id number] [address] [place] [address] [place] RBC LM.HPF (Urine sed) [#/Area] 0-3 /HPF Normal 0-3 /HPF [facility] Comment on above: Order Comment: Speci men Type: URINE SPECIMEN Ordering Facility: [facility] Address: [address] [place] [address] Performed By: #### U TOX2 #### [facility] CLIA [id number] [address] [place] [address] [place] Specific gravity (U) [Rel density] <1.005 Low 1.005-1.030 [facility] Comment on above: Order Comment: Speci men Type: URINE SPECIMEN Ordering Facility: [facility] Address: [address] [id number] Performed By: #### U TOX2 #### [facility] CLIA [id number] [address] [place], [place] [id number] [place] Urobilinogen Ql (U) Negative Normal Negative [facility] Comment on above: Order Comment: Speci men Type: URINE SPECIMEN Ordering Facility: [facility] Address: [address] [place] [address] Performed By: #### U TOX2 #### [facility] CLIA [id number] [address] [place], [place] [id number] [place] WBC LM.HPF (Urine sed) [#/Area] 0-5 /HPF Normal 0-5 /HPF [facility] Comment on above: Order Comment: Speci men Type: URINE SPECIMEN Ordering Facility: [facility] Address: [address] [place] [address] Performed By: #### U TOX2 #### [facility] CLIA [id number] [address] [place] [address] [place] ALCOHOL,PLASMAon 11-30-2023 ALCOHOL,PLASMA < 3.0 [facility] Comment on above: Result Comment: < 3 mg/dl NONE DETECTED 50-100 mg/dl MAY SHOW SIGNS OF INTOXICATION 300-500 mg/dl COMATOSE LEVEL Performed By: #### A ALIA BMP #### [facility] [address] [place] [address] BASIC METABOLIC PANELon Anion gap [Moles/Vol] 11.1 mmol/L Normal 11-23 [facility] Comment on above: Performed By: #### A ALIA BMP #### [facility] [address] [place] [address] Calcium [Mass/Vol] 8.8 mg/dL Normal 8.5-10.1 [facility] Comment on above: Performed By: #### A LC, BMP #### [facility] [address] [place] [address] Chloride [Moles/Vol] 105 mmol/L Normal 98-107 [facility] Comment on above: Performed By: #### A ALIA, BMP #### [address] [place] [address] CO2 [Moles/Vol] 27.0 mmol/L Normal 21-32 [facility] Comment on above: Performed By: #### A LC, BMP #### [facility] [address] [place] [address] Creatinine [Mass/Vol] 1.00 mg/dL Normal 0.7-1.3 [facility] Comment on above: Performed By: #### A LC, BMP #### [address] [place] [address] GFR > 60.0 [facility] Comment on above: Performed By: #### A LC, BMP #### [address] [address] GFR AM > 60.0 [facility] Comment on above: Result Comment: THE NORMAL LEVEL OF GFR VARIES ACCORDING TO AGE, SEX, AND BODY SIZE. A GFR LEVEL OF LESS THAN 60 ML/MIN REPRESENTS LOSS OF THE ADULT LEVEL OF NORMAL KIDNEY FUNCTION. Performed By: #### A LC, BMP #### [address] [address] Glucose [Mass/Vol] 107 mg/dL High 70-100 [facility] Comment on above: Performed By: #### A LC, BMP #### [address] [address] Potassium [Moles/Vol] 3.8 mmol/L Normal 3.5-5.1 [facility] Comment on above: Performed By: #### A LC, BMP #### [address] [address] Sodium [Moles/Vol] 139 mmol/L Normal 136-145 [facility] Comment on above: Performed By: #### A LC, BMP #### [address] [address] Urea nitrogen [Mass/Vol] 17.0 mg/dL Normal 7-18 [facility] Comment on above: Performed By: #### A LC, BMP #### [address] [address] CBC with AUTO DIFFon 024 BAS0 % 0.50 % Normal 0-2 [facility] Comment on above: Performed By: #### C BC #### [address] [place] [address] Basophils (Bld) [#/Vol] 0.1 10*3/uL Normal 0-0.1 [facility] Comment on above: Performed By: #### C BC #### [facility] [address] [place] [address] Eosinophils (Bld) [#/Vol] 0.4 10*3/uL Normal 0.0-1.80 [facility] Comment on above: Performed By: #### C BC #### [facility] [address] [place] [address] Eosinophils/100 WBC (Bld) 3.2 % Normal 0-8 [facility] Comment on above: Performed By: #### C BC #### [facility] [address] [place] [address] GRAN # 7.4 K/uL Normal 2.2-9.1 [facility] Comment on above: Performed By: #### C BC #### [address] [place] [address] GRAN % 65.2 % Normal 42-80 [facility] Comment on above: Performed By: #### C BC #### [address] [place] [address] Hematocrit (Bld) [Volume fraction] 39.8 % Low 41.0-53.0 [facility] Comment on above: Performed By: #### C BC #### [facility] [address] [place] [address] Hemoglobin (Bld) [Mass/Vol] 13.3 g/dL Low 14.0-18.0 [facility] Comment on above: Performed By: #### C BC #### [facility] [address] [place] [address] Lymphocytes (Bld) [#/Vol] 2.9 10*3/uL Normal 1.0-4.0 [facility] Comment on above: Performed By: #### C BC #### [facility] [address] [place] [address] Lymphocytes/100 WBC (Bld) 25.0 % Normal 16-48 [facility] Comment on above: Performed By: #### C BC #### [address] [place] [address] MCV (RBC) [Entitic vol] 86.6 fL Normal 80-97 [facility] Comment on above: Performed By: #### C BC #### [facility] [address] [place] [address] MEAN CORPUSCULAR HGB 29.0 pg Normal 26.0-32.0 [facility] Comment on above: Performed By: #### C BC #### [facility] [address] [place] [address] MEAN CORPUSCULAR HGB CONC 33.4 g/dL Normal 31.0-36.0 [facility] Comment on above: Performed By: #### C BC #### [facility] [address] [place] [address] MONO DISTRIB WIDTH 17.47 Normal 0-20 [facility] Comment on above: Result Comment: For ED adult patients suspected of sepsis, MDW<=20.0 does not rule out sepsis or risk of sepsis Performed By: #### C BC #### [facility] [address] [place] [address] Monocytes (Bld) [#/Vol] 0.7 10*3/uL Normal 0.1-1.7 [facility] Comment on above: Performed By: #### C BC #### [facility] [address] [place] [address] Monocytes/100 WBC (Bld) 6.1 % Normal 3-9 [facility] Comment on above: Performed By: #### C BC #### [facility] [address] [place] [address] Platelet mean volume (Bld) [Entitic vol] 8.8 fL Normal 6.4-10.5 [facility] Comment on above: Performed By: #### C BC #### [facility] [address] [place] [address] Platelets (Bld) [#/Vol] 232 10*3/uL Normal 140-450 [facility] Comment on above: Performed By: #### C BC #### [facility] [address] [place] [address] RBC (Bld) [#/Vol] 4.60 10*6/uL Normal 4.40-6.30 [facility] Comment on above: Performed By: #### C BC #### [facility] [address] [place] [address] RED CELL DISTRI WIDTH 15.7 % High 11.0-15.5 [facility] Comment on above: Performed By: #### C BC #### [facility] [address] [place] [address] WBC (Bld) [#/Vol] 11.4 10*3/uL High 4.0-11.0 [facility] Comment on above: Performed By: #### C BC #### [facility] [address] [place] [address] Determination of erythrocyte mean corpuscular volume (MCV)Ordered By: Sylvester Ramirez on 11-30-2023 MCV (RBC) [Entitic vol] 86.6 fL 80-97 [facility] ED.PDOCon 11-30-2023 ED.PDOC MATTY WHITLOCK Male [id number] Attending provider: [facility] [id number] Sylvester Ramirez 1990 33 DOS: 11/30/23 Hx/Exam - History of Present Illness Chief Complaint: DRUG INGESTION Intensity: mild Episode Frequency: constant Additional Comments: 43-year-old male presents with marijuana ingestion. Patient admits to taking multiple strains of gummy THC. Patient had his roommate called on him because he was acting strange after taking the Gummies. Patient states he was taking them recreational, denies any suicidal ideations, denies any harm to himself. Admits to drinking wine tonight.He is alert and oriented, he is not does not know why his roommate called the EMS. - Review of Systems All Other Systems: Pertinent Positives in HPI, All Other Systems Negative - Physical Exam Other Exam Findings: - Physical Exam General Appearance: awake, alert,Paranoid Eyes: conjunctivae clear, no discharge Head, Ears, Nose, and Throat: nares clear, atraumatic Neck: supple, non-tender, no stridor, Respiratory: lungs clear, no wheezes/rhonchi/rales, Cardiovascular: regular rate, no murmur, Abdomen/GI: non tender, soft, non-distended, Extremity: normal range of motion, non-tender, Neurologic: no motor/sensory deficits, speech clear/fluent Skin Exam: warm/dry, normal color - Source of History Source of History: Nursing Notes/Vital Signs/Triage Reviewed and Agree Note(s) - Physician Notes Additional Notes, See Orders for Details: 11/30/23 06:38 Patient's urine drug screen is positive for methamphetamines and marijuana. Likely etiology to his symptoms. He has been cooperative during his stay. He has been walk around and talking to the nurses.Patient is clinically improving. He is tolerating p.o. and eating breakfast. Plan is to discharge with close follow-up with PCP EKG - EKG EKG Interpretation: Not Applicable Discharge Screen - Discharge Discharge Problem: Cannabis abuse, Methamphetamine abuse Disposition: HOME/SELF CARE Condition: Stable Instructions: DI for Drug Abuse and Drug Addiction Referrals: provider (Unknown),Unlisted [Primary Care Provider] - Dictated By: Dr. Sylvester Ramirez MD Dictated Date/Time:11/30/23220 Electronically Signed Date/Time: 11/30/232156 Normal [facility] EGFR non- AmericanOrd ered By: Sylvester Ramirez on 11-30-2023 GFR/1.73 sq M.predicted among non-blacks MDRD (S/P/Bld) [Vol rate/Area] mL/min/{1.73_m2} [facility] Eosinophil percentOrdered By : Sylvester Ramirez on 11-30-2023 Basophils/100 WBC (Bld) 0.50 % 0-2 [facility] Chloride [Moles/Vol] 105 mmol/L 98-107 [facility] Eosinophil percent < 3.0 mg/dL [facility] Comment on above: < 3 mg/dl NONE DETEC [id number] mg/dl MAY SHOW SIGNS OF [id number] mg/dl COMATOSE LEVEL Eosinophils/100 WBC (Bld) 3.2 % 0-8 [facility] Hemoglobin (Bld) [Mass/Vol] 13.3 g/dL Low 14.0-18.0 [facility] Lymphocytes (Bld) [#/Vol] 2.9 10*3/uL 1.0-4.0 [facility] Lymphocytes/100 WBC (Bld) 25.0 % 16-48 [facility] Monocytes (Bld) [#/Vol] 0.7 10*3/uL 0.1-1.7 [facility] Monocytes/100 WBC (Bld) 6.1 % 3-9 [facility] Potassium [Moles/Vol] 3.8 mmol/L 3.5-5.1 [facility] Sodium [Moles/Vol] 139 mmol/L 136-145 [facility] Fluoroscopic guidance for salo mbar puncture (LP)Ordered By: Sylvester Ramirez on 11-30-2023 Fluoroscopic guidance for lumbar puncture (LP) Negative [facility] Basophils (Bld) [#/Vol] 0.1 10*3/uL 0-0.1 [facility] Eosinophils (Bld) [#/Vol] 0.4 10*3/uL 0.0-1.80 [facility] Granulocytes/100 WBC Auto (B ld)Ordered By: Sylvester Ramirez on 11-30-2023 Granulocytes/100 WBC (Bld) 65.2 % 80 [facility] Laboratory - Chemistry and C hemistry - challengeOrdered By: Sylvester Ramirez on 11-30-2023 Calcium [Mass/Vol] 8.8 mg/dL 8.5-10.1 [facility] CO2 [Moles/Vol] 27.0 mmol/L [facility] Creatinine [Mass/Vol] 1.00 mg/dL 0.7-1.3 [facility] GFR/1.73 sq M.predicted MDRD (S/P/Bld) [Vol rate/Area] mL/min/{1.73_m2} [facility] Comment on above: THE NORMAL LEVEL OF GFR VARIES ACCORDING TO AGE, SEX, AND BODY SIZE. A GFR LEVEL OF LESS THAN 60 ML/MIN REPRESENTS LOSS OF THE ADULT LEVEL OF NORMAL KIDNEY FUNCTION. Glucose [Mass/Vol] 107 mg/dL High 70-100 [facility] Urea nitrogen [Mass/Vol] 17.0 mg/dL 11-11 [facility] - Hematology and Cell countsOrdered By: Sylvester Ramirez on 11-30-2023 Erythrocyte distribution width (RBC) [Ratio] 15.7 % High 11.0-15.5 [facility] Granulocytes (Bld) [#/Vol] 7.4 10*3/uL 2.2-9.1 [facility] Hematocrit (Bld) [Volume fraction] 39.8 % Low 41.0-53.0 [facility] MCH (RBC) [Entitic mass] 29.0 pg 26.0-32.0 [facility] MCHC (RBC) [Mass/Vol] 33.4 g/dL 31.0-36.0 [facility] Platelet mean volume (Bld) [Entitic vol] 8.8 fL 6.4-10.5 [facility] Platelets (Bld) [#/Vol] 232 10*3/uL 140-450 [facility] RBC (Bld) [#/Vol] 4.60 10*6/uL 4.40-6.30 [facility] WBC (Bld) [#/Vol] 11.4 10*3/uL High 4.0-11.0 [facility] Monocyte distribution width [Entitic volume] in Blood by AutomatedOrdered By: Sylvester Ramirez on 11-30-2023 Monocyte distribution width Auto (Bld) [Entitic vol] 17.47 0-20 [facility] Comment on above: For ED adult patient s suspected of sepsis, MDW<=20.0 does not rule out sepsis or risk of sepsis No Panel InformationOrdered By: Sylvester Ramirez on 11-30-2023 Amphetamines Screen Positive High [facility] Comment on above: URINE DRUG SCREENS A RE FOR MEDICAL PURPOSES ONLY.THIS TEST PROVIDES ONLY A PRELIMINARY TEST RESULT. A MORESPECIFIC ALTERNATE CHEMICAL METHOD MUST BE USED IN ORDER TOOBTAIN A CONFIRMED ANALYTICAL RESULT.CONFIRMATION PERFORMED UPON REQUEST Benzodiazepines Screen Negative [facility] Phencyclidine (PCP) Screen Negative [facility] Urine Drug Screen Note See below [facility] Comment on above: Cannabinoids ....... .................... 50Opiates ................................ 300Cocaine ................................ 150Amphetamine ............................ 500Phencyclidine .......................... 25Barbiturates ........................... 200Methadone .............................. 300Benzodiazepines ........................ 200INTERPRETIVE INFOMRATION:This is a screening test only. False positive and false negative results can occur.The absence of expected drug(s) and/or drug metabolite(s) may indicate non-compliance, inappropriate timing of specimen absorption, diluted/adulterated urine, or limitations of testing. The concentration at which the screening test can detect a drug or metabolite varies within a drug class. The concentration value must be greater than or equal to the cutoff to be reported as positive. The following opiods are not detected in this test: fentanyl,buprenorphine, meperidine, tramadol, and tapentadol. Individual opioid testing is available and can be ordered separately. Opiate detectionOrdered By: Sylvester Ramirez on 11-30-2023 Opiates Ql (Unsp spec) Negative [facility] Serum or plasma anion gapOrd ered By: Sylvester Ramirez on 11-30-2023 Anion gap [Moles/Vol] 11.1 mmol/L 03-19 [facility] Tetrahydrocannabinol [Presen ce] in UrineOrdered By: Sylvester Ramirez on 11-30-2023 Tetrahydrocannabinol Ql (U) Positive High [facility] Comment on above: THIS TEST PROVIDES O NLY A PRELIMINARY TEST RESULT. A MORESPECIFIC ALTERNATE CHEMICAL METHOD MUST BE USED IN ORDER TOOBTAIN A CONFIRMED ANALYTICAL RESULT.CONFIRMATION PERFORMED UPON REQUEST URINE DRUG SCREENon 11-30-19 24 AMPHETAMINES Positive Abnormal [facility] Comment on above: Order Comment: What Is Urine Source? Clean Catch [place] Performed By: #### U DRGS ####[address] [address] Other Comment: THIS TEST PROVIDES ONLY A PRELIMINARY TEST RESULT. A MORESPECIFIC ALTERNATE CHEMICAL METHOD MUST BE USED IN ORDER TOOBTAIN A CONFIRMED ANALYTICAL RESULT.CONFIRMATION PERFORMED UPON REQUESTURINE DRUG SCREENS ARE FOR MEDICAL PURPOSES ONLY.THIS TEST PROVIDES ONLY A PRELIMINARY TEST RESULT. A MORESPECIFIC ALTERNATE CHEMICAL METHOD MUST BE USED IN ORDER TOOBTAIN A CONFIRMED ANALYTICAL RESULT.CONFIRMATION PERFORMED UPON REQUESTCannabinoids ........................... 50Opiates ................................ 300Cocaine ................................ 150Amphetamine ............................ 500Phencyclidine .......................... 25Barbiturates ........................... 200Methadone .............................. 300Benzodiazepines ........................ 200INTERPRETIVE INFOMRATION:This is a screening test only. False positive and falsenegative results can occur.The absence of expected drug(s) and/or drug metabolite(s)may indicate non-compliance, inappropriate timing ofspecimen absorption, diluted/adulterated urine, orlimitations of testing. The concentration at which thescreening test can detect a drug or metabolite varies withina drug class. The concentration value must be greater thanor equal to the cutoff to be reported as positive.The following opiods are not detected in this test:fentanyl,buprenorphine, meperidine, tramadol, andtapentadol. Individual opioid testing is available and canbe ordered separately. BARBITURATES Negative Normal [facility] Comment on above: Order Comment: What Is Urine Source? Clean Catch [place] Performed By: #### U DRGS ####[address] [address] Other Comment: THIS TEST PROVIDES ONLY A PRELIMINARY TEST RESULT. A MORESPECIFIC ALTERNATE CHEMICAL METHOD MUST BE USED IN ORDER TOOBTAIN A CONFIRMED ANALYTICAL RESULT.CONFIRMATION PERFORMED UPON REQUESTURINE DRUG SCREENS ARE FOR MEDICAL PURPOSES ONLY.THIS TEST PROVIDES ONLY A PRELIMINARY TEST RESULT. A MORESPECIFIC ALTERNATE CHEMICAL METHOD MUST BE USED IN ORDER TOOBTAIN A CONFIRMED ANALYTICAL RESULT.CONFIRMATION PERFORMED UPON REQUESTCannabinoids ........................... 50Opiates ................................ 300Cocaine ................................ 150Amphetamine ............................ 500Phencyclidine .......................... 25Barbiturates ........................... 200Methadone .............................. 300Benzodiazepines ........................ 200INTERPRETIVE INFOMRATION:This is a screening test only. False positive and falsenegative results can occur.The absence of expected drug(s) and/or drug metabolite(s)may indicate non-compliance, inappropriate timing ofspecimen absorption, diluted/adulterated urine, orlimitations of testing. The concentration at which thescreening test can detect a drug or metabolite varies withina drug class. The concentration value must be greater thanor equal to the cutoff to be reported as positive.The following opiods are not detected in this test:fentanyl,buprenorphine, meperidine, tramadol, andtapentadol. Individual opioid testing is available and canbe ordered separately. BENZODIAZEPINES Negative Normal [facility] Comment on above: Order Comment: What Is Urine Source? Clean [place]atch [place] Performed By: #### U DRGS ####[address] [address] Other Comment: THIS TEST PROVIDES ONLY A PRELIMINARY TEST RESULT. A MORESPECIFIC ALTERNATE CHEMICAL METHOD MUST BE USED IN ORDER TOOBTAIN A CONFIRMED ANALYTICAL RESULT.CONFIRMATION PERFORMED UPON REQUESTURINE DRUG SCREENS ARE FOR MEDICAL PURPOSES ONLY.THIS TEST PROVIDES ONLY A PRELIMINARY TEST RESULT. A MORESPECIFIC ALTERNATE CHEMICAL METHOD MUST BE USED IN ORDER TOOBTAIN A CONFIRMED ANALYTICAL RESULT.CONFIRMATION PERFORMED UPON REQUESTCannabinoids ........................... 50Opiates ................................ 300Cocaine ................................ 150Amphetamine ............................ 500Phencyclidine .......................... 25Barbiturates ........................... 200Methadone .............................. 300Benzodiazepines ........................ 200INTERPRETIVE INFOMRATION:This is a screening test only. False positive and falsenegative results can occur.The absence of expected drug(s) and/or drug metabolite(s)may indicate non-compliance, inappropriate timing ofspecimen absorption, diluted/adulterated urine, orlimitations of testing. The concentration at which thescreening test can detect a drug or metabolite varies withina drug class. The concentration value must be greater thanor equal to the cutoff to be reported as positive.The following opiods are not detected in this test:fentanyl,buprenorphine, meperidine, tramadol, andtapentadol. Individual opioid testing is available and canbe ordered separately. COCAINE Negative Normal [facility] Comment on above: Order Comment: What Is Urine Source? Clean Catch Mid Stream Performed By: #### U DRGS ####[address] [address] Other Comment: THIS TEST PROVIDES ONLY A PRELIMINARY TEST RESULT. A MORESPECIFIC ALTERNATE CHEMICAL METHOD MUST BE USED IN ORDER TOOBTAIN A CONFIRMED ANALYTICAL RESULT.CONFIRMATION PERFORMED UPON REQUESTURINE DRUG SCREENS ARE FOR MEDICAL PURPOSES ONLY.THIS TEST PROVIDES ONLY A PRELIMINARY TEST RESULT. A MORESPECIFIC ALTERNATE CHEMICAL METHOD MUST BE USED IN ORDER TOOBTAIN A CONFIRMED ANALYTICAL RESULT.CONFIRMATION PERFORMED UPON REQUESTCannabinoids ........................... 50Opiates ................................ 300Cocaine ................................ 150Amphetamine ............................ 500Phencyclidine .......................... 25Barbiturates ........................... 200Methadone .............................. 300Benzodiazepines ........................ 200INTERPRETIVE INFOMRATION:This is a screening test only. False positive and falsenegative results can occur.The absence of expected drug(s) and/or drug metabolite(s)may indicate non-compliance, inappropriate timing ofspecimen absorption, diluted/adulterated urine, orlimitations of testing. The concentration at which thescreening test can detect a drug or metabolite varies withina drug class. The concentration value must be greater thanor equal to the cutoff to be reported as positive.The following opiods are not detected in this test:fentanyl,buprenorphine, meperidine, tramadol, andtapentadol. Individual opioid testing is available and canbe ordered separately. METHADONE Negative [facility] Comment on above: Order Comment: What Is Urine Source? Clean Catch Mid Stream Performed By: #### U DRGS ####[address] [address] Other Comment: THIS TEST PROVIDES ONLY A PRELIMINARY TEST RESULT. A MORESPECIFIC ALTERNATE CHEMICAL METHOD MUST BE USED IN ORDER TOOBTAIN A CONFIRMED ANALYTICAL RESULT.CONFIRMATION PERFORMED UPON REQUESTURINE DRUG SCREENS ARE FOR MEDICAL PURPOSES ONLY.THIS TEST PROVIDES ONLY A PRELIMINARY TEST RESULT. A MORESPECIFIC ALTERNATE CHEMICAL METHOD MUST BE USED IN ORDER TOOBTAIN A CONFIRMED ANALYTICAL RESULT.CONFIRMATION PERFORMED UPON REQUESTCannabinoids ........................... 50Opiates ................................ 300Cocaine ................................ 150Amphetamine ............................ 500Phencyclidine .......................... 25Barbiturates ........................... 200Methadone .............................. 300Benzodiazepines ........................ 200INTERPRETIVE INFOMRATION:This is a screening test only. False positive and falsenegative results can occur.The absence of expected drug(s) and/or drug metabolite(s)may indicate non-compliance, inappropriate timing ofspecimen absorption, diluted/adulterated urine, orlimitations of testing. The concentration at which thescreening test can detect a drug or metabolite varies withina drug class. The concentration value must be greater thanor equal to the cutoff to be reported as positive.The following opiods are not detected in this test:fentanyl,buprenorphine, meperidine, tramadol, andtapentadol. Individual opioid testing is available and canbe ordered separately. OPIATES Negative [facility] Comment on above: Order Comment: What Is Urine Source? Clean Catch Mid Stream Performed By: #### U DRGS ####[address] [address] Other Comment: THIS TEST PROVIDES ONLY A PRELIMINARY TEST RESULT. A MORESPECIFIC ALTERNATE CHEMICAL METHOD MUST BE USED IN ORDER TOOBTAIN A CONFIRMED ANALYTICAL RESULT.CONFIRMATION PERFORMED UPON REQUESTURINE DRUG SCREENS ARE FOR MEDICAL PURPOSES ONLY.THIS TEST PROVIDES ONLY A PRELIMINARY TEST RESULT. A MORESPECIFIC ALTERNATE CHEMICAL METHOD MUST BE USED IN ORDER TOOBTAIN A CONFIRMED ANALYTICAL RESULT.CONFIRMATION PERFORMED UPON REQUESTCannabinoids ........................... 50Opiates ................................ 300Cocaine ................................ 150Amphetamine ............................ 500Phencyclidine .......................... 25Barbiturates ........................... 200Methadone .............................. 300Benzodiazepines ........................ 200INTERPRETIVE INFOMRATION:This is a screening test only. False positive and falsenegative results can occur.The absence of expected drug(s) and/or drug metabolite(s)may indicate non-compliance, inappropriate timing ofspecimen absorption, diluted/adulterated urine, orlimitations of testing. The concentration at which thescreening test can detect a drug or metabolite varies withina drug class. The concentration value must be greater thanor equal to the cutoff to be reported as positive.The following opiods are not detected in this test:fentanyl,buprenorphine, meperidine, tramadol, andtapentadol. Individual opioid testing is available and canbe ordered separately. PHENCYCLIDINE Negative Normal [facility] Comment on above: Order Comment: What Is Urine Source? Clean Catch Mid Stream Performed By: #### U DRGS ####[address] [address] Other Comment: THIS TEST PROVIDES ONLY A PRELIMINARY TEST RESULT. A MORESPECIFIC ALTERNATE CHEMICAL METHOD MUST BE USED IN ORDER TOOBTAIN A CONFIRMED ANALYTICAL RESULT.CONFIRMATION PERFORMED UPON REQUESTURINE DRUG SCREENS ARE FOR MEDICAL PURPOSES ONLY.THIS TEST PROVIDES ONLY A PRELIMINARY TEST RESULT. A MORESPECIFIC ALTERNATE CHEMICAL METHOD MUST BE USED IN ORDER TOOBTAIN A CONFIRMED ANALYTICAL RESULT.CONFIRMATION PERFORMED UPON REQUESTCannabinoids ........................... 50Opiates ................................ 300Cocaine ................................ 150Amphetamine ............................ 500Phencyclidine .......................... 25Barbiturates ........................... 200Methadone .............................. 300Benzodiazepines ........................ 200INTERPRETIVE INFOMRATION:This is a screening test only. False positive and falsenegative results can occur.The absence of expected drug(s) and/or drug metabolite(s)may indicate non-compliance, inappropriate timing ofspecimen absorption, diluted/adulterated urine, orlimitations of testing. The concentration at which thescreening test can detect a drug or metabolite varies withina drug class. The concentration value must be greater thanor equal to the cutoff to be reported as positive.The following opiods are not detected in this test:fentanyl,buprenorphine, meperidine, tramadol, andtapentadol. Individual opioid testing is available and canbe ordered separately. THC Positive Abnormal [facility] Comment on above: Order Comment: What Is Urine Source? Clean Catch Mid Stream Performed By: #### U DRGS ####[address] [place] [address] Other Comment: THIS TEST PROVIDES ONLY A PRELIMINARY TEST RESULT. A MORESPECIFIC ALTERNATE CHEMICAL METHOD MUST BE USED IN ORDER TOOBTAIN A CONFIRMED ANALYTICAL RESULT.CONFIRMATION PERFORMED UPON REQUESTURINE DRUG SCREENS ARE FOR MEDICAL PURPOSES ONLY.THIS TEST PROVIDES ONLY A PRELIMINARY TEST RESULT. A MORESPECIFIC ALTERNATE CHEMICAL METHOD MUST BE USED IN ORDER TOOBTAIN A CONFIRMED ANALYTICAL RESULT.CONFIRMATION PERFORMED UPON REQUESTCannabinoids ........................... 50Opiates ................................ 300Cocaine ................................ 150Amphetamine ............................ 500Phencyclidine .......................... 25Barbiturates ........................... 200Methadone .............................. 300Benzodiazepines ........................ 200INTERPRETIVE INFOMRATION:This is a screening test only. False positive and falsenegative results can occur.The absence of expected drug(s) and/or drug metabolite(s)may indicate non-compliance, inappropriate timing ofspecimen absorption, diluted/adulterated urine, orlimitations of testing. The concentration at which thescreening test can detect a drug or metabolite varies withina drug class. The concentration value must be greater thanor equal to the cutoff to be reported as positive.The following opiods are not detected in this test:fentanyl,buprenorphine, meperidine, tramadol, andtapentadol. Individual opioid testing is available and canbe ordered separately. DRG SCREEN CUT OFF SEE BELOW Normal [facility] Comment on above: Order Comment: What Is Urine Source? Clean Catch Mid [place] Performed By: #### U DRGS ####[address] [address] Other Comment: THIS TEST PROVIDES ONLY A PRELIMINARY TEST RESULT. A MORESPECIFIC ALTERNATE CHEMICAL METHOD MUST BE USED IN ORDER TOOBTAIN A CONFIRMED ANALYTICAL RESULT.CONFIRMATION PERFORMED UPON REQUESTURINE DRUG SCREENS ARE FOR MEDICAL PURPOSES ONLY.THIS TEST PROVIDES ONLY A PRELIMINARY TEST RESULT. A MORESPECIFIC ALTERNATE CHEMICAL METHOD MUST BE USED IN ORDER TOOBTAIN A CONFIRMED ANALYTICAL RESULT.CONFIRMATION PERFORMED UPON REQUESTCannabinoids ........................... 50Opiates ................................ 300Cocaine ................................ 150Amphetamine ............................ 500Phencyclidine .......................... 25Barbiturates ........................... 200Methadone .............................. 300Benzodiazepines ........................ 200INTERPRETIVE INFOMRATION:This is a screening test only. False positive and falsenegative results can occur.The absence of expected drug(s) and/or drug metabolite(s)may indicate non-compliance, inappropriate timing ofspecimen absorption, diluted/adulterated urine, orlimitations of testing. The concentration at which thescreening test can detect a drug or metabolite varies withina drug class. The concentration value must be greater thanor equal to the cutoff to be reported as positive.The following opiods are not detected in this test:fentanyl,buprenorphine, meperidine, tramadol, andtapentadol. Individual opioid testing is available and canbe ordered separately. ED NOTEon 09-15-2023 ED NOTE HNO ID: [id number] Author: YUDITH SANFORD, AZAEL Service: ? Author Type: Registered Nurse Type: ED Notes Filed: 09/15/2023 09:47 Note Text: Pts belongings give to transport crew. [facility] ED NOTE HNO ID: [id number] Author: JANAE ZENDEJAS CT Service: ? Author Type: Clinical Cattle Inspector Type: ED Notes Filed: 09/15/2023 03:06 Note Text: This Tech received report from Wayne Maki. PT was previously placed in [facility] with all [facility]. Room was cleared prior to this Tech taking over Frequent Observation responsibilities with all items secured in Silver Cart for PT AND Staff Safety. [facility] ED NOTE HNO ID: [id number] Author: RUPA KILPATRICK Medic Service: Emergency Medicine Author Type: Literacy Consultant and Cattle Inspector Type: ED Notes Filed: 09/15/2023 02:29 Note Text: Pt gets up and asks to use trestroom Pt used restroom while under observation through partially opened door, then returned to room Pt then taken to [address] ED NOTE HNO ID: [id number] Author: GENARO RDZ, AZAEL Service: Abstract Author Type: Registered Nurse Type: ED Notes Filed: 09/15/2023 01:27 Note Text: Intake updated on pt. [facility] ED NOTE HNO ID: [id number] Author: KYLAH TREVIZO, AZAEL Service: Emergency Medicine Author Type: Registered Nurse Type: ED Notes Filed: 09/15/2023 00:42 Note Text: [facility] states [address] [facility] CBC panel Auto (Bld)on 09-13 Erythrocyte distribution width (RBC) [Ratio] 13.4 % Normal 11.5-15.0 [facility] Comment on above: Order Comment: Speci men Type: BLOOD SPECIMEN Ordering Facility: [facility] Address: [address] [place] [address] Performed By: #### 5 8410-2 #### [facility] CLIA [id number] [address] [place] [address] [place] Hematocrit (Bld) [Volume fraction] 39.0 % Normal 39.0-51.0 [facility] Comment on above: Order Comment: Speci men Type: BLOOD SPECIMEN Ordering Facility: [facility] Address: [address] [place] [address] Performed By: #### 5 8410-2 #### [facility] CLIA [id number] [address] [place] [address] [place] Hemoglobin (Bld) [Mass/Vol] 12.9 g/dL Low 13.0-17.0 [facility] Comment on above: Order Comment: Speci men Type: BLOOD SPECIMEN Ordering Facility: [facility] Address: [address] [place] [address] Performed By: #### 5 8410-2 #### [facility] CLIA [id number] [address] [place] [address] [place] MCH (RBC) [Entitic mass] 28.6 pg Normal 26.0-34.0 [facility] Comment on above: Order Comment: Speci men Type: BLOOD SPECIMEN Ordering Facility: [facility] Address: [address] [place] [address] Performed By: #### 5 8410-2 #### [facility] CLIA [id number] [address] [place] [address] [place] MCHC (RBC) [Mass/Vol] 33.1 g/dL Normal 30.5-36.0 [facility] Comment on above: Order Comment: Speci men Type: BLOOD SPECIMEN Ordering Facility: [facility] Address: [address] [place] [address] Performed By: #### 5 8410-2 #### [facility] CLIA [id number] [address] [place] [address] [place] MCV (RBC) [Entitic vol] 86.5 fL Normal 80.0-100.0 [facility] Comment on above: Order Comment: Speci men Type: BLOOD SPECIMEN Ordering Facility: [facility] Address: [address] [place] [address] Performed By: #### 5 8410-2 #### [facility] CLIA [id number] [address] [place] [address] [place] Nucleated RBC (Bld) [#/Vol] 10*3/uL Normal <0.01 [facility] Comment on above: Order Comment: Speci men Type: BLOOD SPECIMEN Ordering Facility: [facility] Address: [address] [place] [address] Performed By: #### 5 8410-2 #### [facility] CLIA [id number] [address] [place] [address] [place] Platelet mean volume (Bld) [Entitic vol] 10.0 fL Normal 9.0-12.7 [facility] Comment on above: Order Comment: Speci men Type: BLOOD SPECIMEN Ordering Facility: [facility] Address: [address] [place] [address] Performed By: #### 5 8410-2 #### [facility] CLIA [id number] [address] [place] [address] [place] Platelets (Bld) [#/Vol] 322 10*3/uL Normal 150-400 [facility] Comment on above: Order Comment: Speci men Type: BLOOD SPECIMEN Ordering Facility: [facility] Address: [address] [place] [address] Performed By: #### 5 8410-2 #### [facility] CLIA [id number] [address] [place] [address] [place] RBC (Bld) [#/Vol] 4.51 10*6/uL Normal 4.20-6.00 [facility] Comment on above: Order Comment: Speci men Type: BLOOD SPECIMEN Ordering Facility: [facility] Address: [address] [place] [address] Performed By: #### 5 8410-2 #### [facility] CLIA [id number] [address] [place] [address] [place] [facility] [place] WBC (Bld) [#/Vol] 13.03 10*3/uL High 3.70-11.00 [facility] Comment on above: Order Comment: Speci men Type: BLOOD SPECIMEN Ordering Facility: [facility] Address: [address] [place] [address] Performed By: #### 5 8410-2 #### [facility] CLIA [id number] [address] [place], [place] [address] [facility] Comprehensive metabolic 2000 panelon 09-14-2023 Albumin [Mass/Vol] 3.8 g/dL Normal 3.2-5.0 [facility] Comment on above: Order Comment: Speci men Type: BLOOD SPECIMEN Ordering Facility: [facility] Address: [address] [place] [address] Performed By: #### 2 4323-8, 5643-2 #### [facility] CLIA [id number] [address] [place] [address] [place] ALP [Catalytic activity/Vol] 70 U/L Normal 45-117 [facility] Comment on above: Order Comment: Speci men Type: BLOOD SPECIMEN Ordering Facility: [facility] Address: [address] [place] [address] Performed By: #### 2 4323-8, 5643-2 #### [facility] CLIA [id number] [address] [place] [address] [place] ALT [Catalytic activity/Vol] 31 U/L Normal 13-61 [facility] Comment on above: Order Comment: Speci men Type: BLOOD SPECIMEN Ordering Facility: [facility] Address: [address] [place] [address] Result Comment: Resu lts may be falsely depressed after the administration of Sulfasalazine and/or Sulfapyridine. Performed By: #### 2 4323-8, 5643-2 #### [facility] CLIA [id number] [address] [place], [place] [address] [place] Anion gap [Moles/Vol] 6 mmol/L Normal 5-16 [facility] Comment on above: Order Comment: Speci men Type: BLOOD SPECIMEN Ordering Facility: [facility] Address: [address] [place] [address] Performed By: #### 2 4323-8, 5643-2 #### [facility] CLIA [id number] [address] [place] [address] [place] AST [Catalytic activity/Vol] 44 U/L High 8-34 [facility] Comment on above: Order Comment: Serinai abdi Type: BLOOD SPECIMEN Ordering Facility: [facility] Address: [address] [place] [address] Result Comment: Resu lts may be falsely depressed after the administration of Sulfasalazine and/or Sulfapyridine. Performed By: #### 2 4323-8, 5643-2 #### [facility] CLIA [id number] [address] [place] [address] [place] Bilirubin [Mass/Vol] 0.5 mg/dL Normal 0.2-1.0 [facility] Comment on above: Order Comment: Serinai abdi Type: BLOOD SPECIMEN Ordering Facility: [facility] Address: [address] [place] [address] Performed By: #### 2 4323-8, 5643-2 #### [facility] CLIA [id number] [address] [place], [place] [address] [place] Calcium [Mass/Vol] 9.5 mg/dL Normal 8.5-10.5 [facility] Comment on above: Order Comment: Serinai men Type: BLOOD SPECIMEN Ordering Facility: [facility] Address: [address] [place] [address] Performed By: #### 2 4323-8, 5643-2 #### [facility] CLIA [id number] [address] [place] [address] [place] Chloride [Moles/Vol] 109 mmol/L High 98-107 [facility] Comment on above: Order Comment: Speci men Type: BLOOD SPECIMEN Ordering Facility: [facility] Address: [address] [place] [address] Performed By: #### 2 4323-8, 5643-2 #### [facility] CLIA [id number] [address] [place] [address] [place] CO2 [Moles/Vol] 26 mmol/L Normal 21-32 [facility] Comment on above: Order Comment: Speci men Type: BLOOD SPECIMEN Ordering Facility: [facility] Address: [address] [place] [address] Performed By: #### 2 4323-8, 5643-2 #### [facility] CLIA [id number] [address] [place] [address] [place] Creatinine [Mass/Vol] 0.81 mg/dL Normal 0.50-1.40 [facility] Comment on above: Order Comment: Speci men Type: BLOOD SPECIMEN Ordering Facility: [facility] Address: [address] [place] [address] Result Comment: Cathleen ents receiving either N-Acetylcysteine (NAC) or Metamizole prior to venipuncture, may have falsely depressed results. Performed By: #### 2 4323-8, 5643-2 #### [facility] CLIA [id number] [address] [place] [address] [place] Creatinine and Glomerular filtration rate.predicted panel (S/P/Bld) 120 mL/min/1.73m??? Normal >=60 [facility] Comment on above: Order Comment: Speci men Type: BLOOD SPECIMEN Ordering Facility: [facility] Address: [address] [place] [address] Result Comment: Kenyetta mated Glomerular Filtration Rate (eGFR) is calculated using the 2020 CKD-EPI creatinine equation. This equation utilizes serum creatinine, sex, and age as parameters. The creatinine assay has traceable calibration to isotope dilution-mass spectrometry. Refer to KDIGO guidelines for clinical interpretation. In patients with unstable renal function, e.g. those with acute kidney injury, the eGFR may not accurately reflect actual GFR. Performed By: #### 2 4323-8, 5643-2 #### [facility] CLIA [id number] [address] [place], [place] [address] [place] Glucose [Mass/Vol] 92 mg/dL Normal 70-100 [facility] Comment on above: Order Comment: Jo patton Type: BLOOD SPECIMEN Ordering Facility: [facility] Address: [address] [place] [address] Result Comment: The [place] [employer] (ADA) provides guidance for cutoff values for fasting glucose and random glucose. The ADA defines fasting as no caloric intake for at least 8 hours. Fasting plasma glucose results between 100 to 125 mg/dL indicate increased risk for diabetes (prediabetes). Fasting plasma glucose results greater than or equal to 126 mg/dL meet the criteria for diagnosis of diabetes. In the absence of unequivocal hyperglycemia, results should be confirmed by repeat testing. In a patient with classic symptoms of hyperglycemia or hyperglycemic crisis, random plasma glucose results greater than or equal to 200 mg/dL meet the criteria for diagnosis of diabetes. Reference: Standards of Medical Care in Diabetes 2016, [place] [employer]. Diabetes Care. 2016.39(Suppl 1). Results may be falsely elevated after the administration of Sulfapyridine. Results may be falsely depressed after the administration of Sulfasalazine. Performed By: #### 2 4323-8, 5643-2 #### [facility] CLIA [id number] [address] [place], [place] [address] [place] Potassium [Moles/Vol] 3.8 mmol/L Normal 3.5-5.1 [facility] Comment on above: Order Comment: Jo patton Type: BLOOD SPECIMEN Ordering Facility: [facility] Address: [address] [place] [address] Performed By: #### 2 4323-8, 5643-2 #### [facility] CLIA [id number] [address] [place], [place] [address] [place] Protein [Mass/Vol] 7.1 g/dL Normal 6.0-8.5 [facility] Comment on above: Order Comment: Speci men Type: BLOOD SPECIMEN Ordering Facility: [facility] Address: [address] [place] [address] Performed By: #### 2 4323-8, 5643-2 #### [facility] CLIA [id number] [address] [place], [place] [address] [place] Sodium [Moles/Vol] 141 mmol/L Normal 136-145 [facility] Comment on above: Order Comment: Speci men Type: BLOOD SPECIMEN Ordering Facility: [facility] Address: [address] [place], [place] [address] Performed By: #### 2 4323-8, 5643-2 #### [facility] CLIA [id number] [address] [place], [place] [address] [place] Urea nitrogen [Mass/Vol] 12 mg/dL Normal 7-26 [facility] Comment on above: Order Comment: Speci men Type: BLOOD SPECIMEN Ordering Facility: [facility] Address: [facility] [place] [id number] Performed By: #### 2 4323-8, 5643-2 #### [facility] CLIA [id number] [address] [place], [place] [address] [place] ECG COMPLETEon 09-14-2023 ECG COMPLETE Ventricular Rate : 9 3 BPM Atrial Rate : 93 BPM P-R Interval : 138 ms QRS Duration : 98 ms Q-T Interval : 356 ms QTC Calculation(Bazett) : 442 ms Calculated P [place] : 84 degrees Calculated R [place] : 77 degrees Calculated T [place] : 50 degrees Normal sinus rhythm Incomplete right bundle branch block Borderline ECG No previous ECGs available Confirmed by DELFINO CORTES MD ([id number]) on 09/14/2023 11:32:14 PM NAME : MATTY WHITLOCK PID : [id number] : 1990 Gender : Male Race : ORD : [id number] Procedure Date : Sep 14 2023 17:02:20 Edit Date : Sep 14 2023 23:32:16 Diagnosis: Normal sinus rhythm Incomplete right bundle branch block Borderline ECG No previous ECGs available Confirmed by DELFINO CORTES MD ([id number]) on 09/14/2023 11:32:14 PM Test Reason : STAT Location : 0 : ED [id number] Overread By : DELFINO CORTES MD Edited By : DELFINO CORTES MD Referred By : , Acquired by : ANGELLA, [facility] ED NOTEon 09-14-2023 ED NOTE HNO ID: [id number] Author: GENARO RDZ RN Service: Abstract Author Type: Registered Nurse Type: ED Notes Filed: 09/14/2023 22:41 Note Text: Report called to AZAEL Link at [facility] ED NOTE HNO ID: [id number] Author: BONNIE GREENE Tech Service: ? Author Type: Cattle Inspector Type: ED Notes Filed: 09/14/2023 22:35 Note Text: THIS TECH TOOK OVER SITTING WITH PT. PT IS LAYING IN BED, CHEST IS RISING AND FALLING. PT IS SAFE AT THIS TIME. I WILL CONTINUE TO SIT UNTIL TOLD OTHERWISE. [facility] ED NOTE HNO ID: [id number] Author: GENARO RDZ RN Service: Abstract Author Type: Registered Nurse Type: ED Notes Filed: 09/14/2023 22:12 Note Text: Pt resting in bed [facility] ED NOTE HNO ID: [id number] Author: GENARO RDZ RN Service: Abstract Author Type: Registered Nurse Type: ED Notes Filed: 09/14/2023 22:12 Note Text: Pt acting agitated. Passing the room, shouting, and not following request. MD notified and medications ordered. Pt accepting medications without difficulty. PD at bedside. [facility] ED NOTE HNO ID: [id number] Author: ADITYA CORDOVA RN Service: Immunology Author Type: Registered Nurse Type: ED Notes Filed: 09/14/2023 21:06 Note Text: Attempted to call report 3x to [facility] for this pt. [employer] whom answered the phone (not nurse taking report) said they will just receive a surprise pt because they are not answering the phones to take report. [facility] ED NOTE HNO ID: [id number] Author: ADITYA CORDOVA RN Service: Immunology Author Type: Registered Nurse Type: ED Notes Filed: 09/14/2023 18:42 Note Text: Pt presents with EMS for flight of ideas and manic episode. Per EMS pt was outside of [facility] and is unable to go back to [facility]. Upon pt arrival pt is speaking with flight of ideas regarding multiple different encounters with spirits and people within the last 6 months. Pt states he is hungry and doesn't have anywhere to go. Pt appears paranoid saying people are after him and even if he did kill himself they would still kill other people instead of me. Pt is alert and oriented x4. Normal [facility] ED PROV NOTEon 09-14-2023 ED PROV NOTE HNO ID: [id number] Author: WES STEVENS DO Service: Emergency Medicine Author Type: Physician Type: ED Provider Notes Filed: 09/14/2023 21:12 Note Text: EMERGENCY DEPARTMENT NOTE [facility] Matty Whitlock Room: [address] HISTORY OF PRESENT ILLNESS: Matty Whitlock is a 33 year old male who presents by EMS for psychiatric evaluation. The patient reports that he is homeless, he has been staying multiple places with friends, he reports a history of bipolar, schizophrenia, yann, states that he is taking Seroquel, anxiety medications and also uses marijuana. He states that he feels as though he is being chased by car gangs with dark tinted windows, states that he is concerned for his life, he also states that he recently saw a dog man in the upstairs window of the house he was staying at, noted that this dog man had a face to wait for, when he turned his head to the side, he noticed that the man had 3 heads, he slid down the pole of the house and was trying to get him. He denies any suicidal ideations or homicidal ideations, he denies any other illicit substance abuse. He denies any additional systemic symptoms today. PHYSICAL EXAM: Initial Vital Signs: BP 138/74 Pulse 90 Temp 36.7 ?C (98 ?F) Resp 20 Ht 167.6 cm (5' 6) Wt 65.6 kg (144 lb 10 oz) SpO2 97% BMI 23.34 kg/m? Constitutional: Stated Age, anxious appearing, rapid speech HENT: NC/AT, Mucous membranes moist Eyes: No scleral icterus, No photophobia, EOMI Neck: No nuchal rigidity, Supple, Trachea midline Cardiac: Regular rate and rhythm, S1 and S2 normal, no S3, S4, no murmurs gallops or rubs Thorax AND Lungs: Clear to auscultation bilaterally, no wheezes, crackles or rhonchi, No chest tenderness Abdomen: Soft, non-tender, non-distended, no rebound or guarding Back: No CVA tenderness, no midline thoracic or lumbar spinal tenderness Skin: No rashes, warm, dry, pink Extremities:, No deformities Musculoskeletal: Normal tone Neurologic: Alert and oriented x3, Sensory and motor strength intact in all extremities, no focal deficits noted. No facial asymmetry, no aphasia or dysarthria. Psychiatric: Rapid speech, flight of ideas, anxious demeanor, paranoid delusions, denies suicidal or homicidal ideations CURRENT MEDICATIONS: No current facility-administered medications for this encounter. Current Outpatient Medications: busPIRone (BUSPAR) 7.5 mg tablet, Take by mouth., Disp: , Rfl: QUEtiapine (SEROQUEL) 200 mg tablet, Take 200 mg by mouth daily at bedtime., Disp: , Rfl: nicotine (NICODERM) 21 mg/24 hr, Apply 1 Patch by transdermal route 1 time per day, Disp: , Rfl: cloNIDine HCl (CATAPRES) 0.2 mg tablet, Take 1 Tablet By Oral Route 1 time per day, Disp: , Rfl: QUEtiapine (SEROQUEL) 100 mg tablet, Take 100 mg by mouth daily at bedtime. (Patient not taking: Reported on 07/16/2022), Disp: , Rfl: lidocaine viscous (XYLOCAINE) 2 % solution, Take 5 mL by mouth as needed. (Patient not taking: Reported on 06/27/2022), Disp: , Rfl: pantoprazole DR (PROTONIX) 40 mg tablet, Take 1 tablet by mouth twice daily. Take on empty stomach, 1/2 hr before meal., Disp: 60 tablet, Rfl: 0 budesonide-formoterol (SYMBICORT) 160-4.5 mcg/actuation inhaler, TWICE A DAY (Patient not taking: Reported on 06/27/2022), Disp: , Rfl: albuterol HFA (VENTOLIN HFA) 90 mcg/actuation inhaler, Inhale 2 Puffs as instructed every 6 hours as needed for Wheezing/Shortness of Breath. (Patient not taking: Reported on 06/27/2022), Disp: 1 Inhaler, Rfl: 2 loratadine (CLARITIN) 10 mg tablet, Take 1 tablet by mouth once daily. (Patient not taking: Reported on 06/27/2022), Disp: 90 tablet, Rfl: 3 ALLERGIES: Patient has no known allergies. MEDICAL DECISION MAKING/ED COURSE RADIOLOGY: I personally reviewed the radiographic images. The radiologist's interpretation reveals: No orders to display LABS: Labs Reviewed COMPLETE BLOOD COUNT - Abnormal; Notable for the following components: Result Value WBC 13.03 (*) Hemoglobin 12.9 (*) All other components within normal limits COMPREHENSIVE METABOLIC PANEL - Abnormal; Notable for the following components: AST 44 (*) Chloride 109 (*) All other components within normal limits URINALYSIS WITH MICROSCOPIC, REFLEX CULTURE - Abnormal; Notable for the following components: Color Marian (*) Ketones, Urine Trace (*) Specific [place], Ur >1.030 (*) Protein, Urine 1+ (*) Urobilinogen 2+ (*) RBC, Urine 3-5 /HPF (*) Bacteria Rare (*) Casts, Hyaline 4-10 /LPF (*) Casts, Granular >10 /LPF (*) All other components within normal limits TOXICOLOGY SCREEN, ROUTINE URINE - Abnormal; Notable for the following components: Amphetamines Urine Positive (*) Cannabinoids, Urine Positive (*) All other components within normal limits Narrative: Urine Drugs of Abuse results are qualitative, providing a preliminary analytical result. A positive result for a (more content not included)... Normal [facility] Ethanol [Mass/Vol] mg/dL Normal <0.010 [facility] Comment on above: Order Comment: Speci men Type: BLOOD SPECIMEN Ordering Facility: [facility] Address: [facility] [place] [address] Performed By: #### 2 4323-8, 5643-2 #### [facility] CLIA [id number] [facility] [place] [id number] [place] SARS-CoV-2 RNA Resp Ql DINAH+p indu 09-14-2023 SARS-CoV-2 (COVID-19) RNA DNIAH+probe Ql (Resp) COVID 19 RESULT: Not detected The method used is RT-PCR or an equivalent NAAT method. Reference Range(the expected result in uninfected individuals): Not detected Normal [facility] Comment on above: Performed By: #### 9 4500-6 #### [facility] CLIA [id number] [address] [place] [address] [place] TOXICOLOGY SCREEN, ROUTINE U RINEon 09-14-2023 Amphetamines Confirm (U) [Mass/Vol] Positive Abnormal Negative [facility] Comment on above: Order Comment: Speci men Type: URINE SPECIMEN Ordering Facility: [facility] Address: [address] [place] [address] Result Comment: Cuto ff threshold at 1000 ng/mL. Performed By: #### U TOX2 #### [facility] CLIA [id number] [address] [place] [address] [place] BARBITURATES, URINE Negative Normal Negative [facility] Comment on above: Order Comment: Speci men Type: URINE SPECIMEN Ordering Facility: [facility] Address: [address] [place] [address] Result Comment: Cuto ff threshold at 200 ng/mL. Performed By: #### U TOX2 #### [facility] CLIA [id number] [address] [place] [address] [place] BENZODIAZEPINES, UR Negative Normal Negative [facility] Comment on above: Order Comment: Speci men Type: URINE SPECIMEN Ordering Facility: [facility] Address: [address] [place] [address] Result Comment: Cuto ff threshold at 200 ng/mL. Performed By: #### U TOX2 #### [facility] CLIA [id number] [address] [place] [address] [place] Cannabinoids Screen Ql (U) Positive Abnormal Negative [facility] Comment on above: Order Comment: Speci men Type: URINE SPECIMEN Ordering Facility: [facility] Address: [address] [place] [address] Result Comment: Cuto ff threshold at 50 ng/mL. Performed By: #### U TOX2 #### [facility] CLIA [id number] [address] [place] [address] [place] Cocaine Ql (U) Negative Normal Negative [facility] Comment on above: Order Comment: Speci men Type: URINE SPECIMEN Ordering Facility: [facility] Address: [address] [place] [address] Result Comment: Cuto ff threshold at 300 ng/mL. Performed By: #### U TOX2 #### [facility] CLIA [id number] [address] [place] [address] OF [facility] Opiates Screen Ql (U) Negative Normal Negative [facility] Comment on above: Order Comment: Speci men Type: URINE SPECIMEN Ordering Facility: [facility] Address: [address] [place] [address] Result Comment: Cuto ff threshold at 300 ng/mL. Performed By: #### U TOX2 #### [facility] CLIA [id number] [address] [place] [address] STATES OF [facility] Phencyclidine Ql (U) Negative Normal Negative [facility] Comment on above: Order Comment: Speci men Type: URINE SPECIMEN Ordering Facility: [facility] Address: [address] [place] [address] Result Comment: Cuto ff threshold at 25 ng/mL. Performed By: #### U TOX2 #### [facility] CLIA [id number] [address] [place] [address] [place] Urinalysis complete panel (U )on 09-14-2023 Bacteria LM.HPF (Urine sed) [#/Area] Rare Abnormal None Seen [facility] Comment on above: Order Comment: Speci men Type: URINE SPECIMEN Ordering Facility: [facility] Address: [address] [place] [address] Performed By: #### 2 4356-8 #### [facility] CLIA [id number] [address] [place] [address] [place] Bilirubin Ql (U) Negative Normal Negative [facility] Comment on above: Order Comment: Speci men Type: URINE SPECIMEN Ordering Facility: [facility] Address: [address] [place] [address] Performed By: #### 2 4356-8 #### [facility] CLIA [id number] [address] [place] [address] [place] Clarity (Unsp spec) Clear Normal Clear [facility] Comment on above: Order Comment: Speci men Type: URINE SPECIMEN Ordering Facility: [facility] Address: [address] [place] [address] Performed By: #### 2 4356-8 #### [facility] CLIA [id number] [address] [place] [address] [place] Color (U) Marian Abnormal Yellow [facility] Comment on above: Order Comment: Speci men Type: URINE SPECIMEN Ordering Facility: [facility] Address: [address] [place] [address] Performed By: #### 2 4356-8 #### [facility] CLIA [id number] [address] [place] [address] [place] Epithelial cells LM.HPF (Urine sed) [#/Area] Few Normal [facility] Comment on above: Order Comment: Speci men Type: URINE SPECIMEN Ordering Facility: [facility] Address: [address] [place] [address] Performed By: #### 2 4356-8 #### [facility] CLIA [id number] [address] [place] [address] [place] Glucose Test strip (U) [Mass/Vol] Negative Normal Negative [facility] Comment on above: Order Comment: Speci men Type: URINE SPECIMEN Ordering Facility: [facility] Address: [address] [place] [address] Performed By: #### 2 4356-8 #### [facility] CLIA [id number] [address] [place] [address] [place] Granular casts (Urine sed) [#/Area] /[LPF] Abnormal 0 /LPF [facility] Comment on above: Order Comment: Speci men Type: URINE SPECIMEN Ordering Facility: [facility] Address: [address] [place] [address] Performed By: #### 2 4356-8 #### [facility] CLIA [id number] [address] [place] [address] [place] Hemoglobin Ql (U) Negative Normal Negative [facility] Comment on above: Order Comment: Speci men Type: URINE SPECIMEN Ordering Facility: [facility] Address: [address] [place] [address] Performed By: #### 2 4356-8 #### [facility] CLIA [id number] [address] [place] [address] [place] Hyaline casts (Urine sed) [#/Area] 4-10 /LPF Abnormal 0 /LPF [facility] Comment on above: Order Comment: Speci men Type: URINE SPECIMEN Ordering Facility: [facility] Address: [address] [place] [address] Performed By: #### 2 4356-8 #### [facility] CLIA [id number] [address] [place] [address] [place] Ketones Ql (U) Trace Abnormal Negative [facility] Comment on above: Order Comment: Speci men Type: URINE SPECIMEN Ordering Facility: [facility] Address: [address] [place] [address] Performed By: #### 2 4356-8 #### [facility] CLIA [id number] [address] [place] [address] [place] Leukocyte esterase Test strip Ql (U) Negative Normal Negative [facility] Comment on above: Order Comment: Speci men Type: URINE SPECIMEN Ordering Facility: [facility] Address: [address] [place] [address] Performed By: #### 2 4356-8 #### [facility] CLIA [id number] [address] [place] [address] [place] Nitrite Ql (U) Negative Normal Negative [facility] Comment on above: Order Comment: Speci men Type: URINE SPECIMEN Ordering Facility: [facility] Address: [address] [place] [address] Performed By: #### 2 4356-8 #### [facility] CLIA [id number] [address] [place] [address] [place] pH (U) 5.0 [pH] Normal 5.0-8.0 [facility] Comment on above: Order Comment: Speci men Type: URINE SPECIMEN Ordering Facility: [facility] Address: [address] [place] [address] Performed By: #### 2 4356-8 #### [facility] CLIA [id number] [address] [place] [address] [place] Protein (U) [Mass/Vol] 1+ Abnormal Negative [facility] Comment on above: Order Comment: Speci men Type: URINE SPECIMEN Ordering Facility: [facility] Address: [address] [place] [address] Performed By: #### 2 4356-8 #### [facility] CLIA [id number] [address] [place] [address] [place] RBC LM.HPF (Urine sed) [#/Area] 3-5 /HPF Abnormal 0-3 /HPF [facility] Comment on above: Order Comment: Speci men Type: URINE SPECIMEN Ordering Facility: [facility] Address: [address] [place] [address] Performed By: #### 2 4356-8 #### [facility] CLIA [id number] [address] [place] [address] [place] Specific gravity (U) [Rel density] >1.030 High 1.005-1.030 [facility] Comment on above: Order Comment: Speci men Type: URINE SPECIMEN Ordering Facility: [facility] Address: [address] [place] [address] Performed By: #### 2 4356-8 #### [facility] CLIA [id number] [address] [place] [address] [place] Urobilinogen Ql (U) 2+ Abnormal Negative [facility] Comment on above: Order Comment: Speci men Type: URINE SPECIMEN Ordering Facility: [facility] Address: [address] [place] [address] Performed By: #### 2 4356-8 #### [facility] CLIA [id number] [address] [place], [place] [address] [facility] WBC LM.HPF (Urine sed) [#/Area] 0-5 /HPF Normal 0-5 /HPF [facility] Comment on above: Order Comment: Speci men Type: URINE SPECIMEN Ordering Facility: [facility] Address: [address] [place], [place] [address] Performed By: #### 2 4356-8 #### [facility] CLIA [id number] [address] [place], [place] [address] [facility] ED NOTEon 09-01-2023 ED NOTE HNO ID: [id number] Author: ALTAF ROBLEDO RN Service: Emergency Medicine Author Type: Registered Nurse Type: ED Notes Filed: 09/01/2023 09:52 Note Text: Pt resting in bed. Pt was given oatmeal, orange juice, applesauce and a cookie. Pt denies any needs at this time. Normal [facility] ED NOTE HNO ID: [id number] Author: SIRI NEWTON RN Service: Emergency Medicine Author Type: Registered Nurse Type: ED Notes Filed: 09/01/2023 07:35 Note Text: Pt stated has been sleeping [facility] the [facility] for the last 2 days and needs somewhere to stay; Stated was taken to [facility] last night and was discharged at 0600 this am and then came here; Stated feels dizzy due to not eating Normal [facility] ED PROV NOTEon 09-01-2023 ED PROV NOTE HNO ID: [id number] Author: MARLENA HOFFMAN MD Service: Emergency Medicine Author Type: Physician Type: ED Provider Notes Filed: 09/01/2023 10:14 Note Text: ED Provider Note Patient Name: Matty Whitlock : 1990 SERVICE DATE: 09/01/23 History Patient presents with: Dizziness The patient is a 33-year-old male presents today with complaint of exhaustion. The primary complaint is dizziness the patient basically states that he feels exhausted. Patient states that he is currently homeless. He has been behind the local road. Patient attempting to sleep. States has been able to do so. He has been being passed from different establishments where he has been trying to sleep outside and has been having difficulty. He states that he was spending his money for him to stay there. He felt unsafe and so he called EMS last night presented to [facility]'s emergency department. The records are not in the system yet but did call over and discussed with the did for him there. They stated they let him sleep overnight and gave him some crackers and juice. They state they do some ibuprofen for his headache. I then discharged him as his only complaint was again not have anywhere to stay. Upon discharge she walked down the street to his and is complaining of fatigue and being hungry. He states that he cannot go back to [facility] because he is currently on suspension there. He states that he wants to go other places and was given a list of different locations from the [facility] facility but does not have anywhere to get there. He is complaining of pain to his feet secondary to blisters from walking. He also complains of sunburn. He also has a complaint of chronic right hand pain from an injury that occurred a few months ago. States no new injury to the area just is uncomfortable. PAST MEDICAL HISTORY Diagnosis Date Asthma Bipolar 1 disorder (HCC) GERD without esophagitis 01/30/2020 Psychiatric disorder depression PAST SURGICAL HISTORY Procedure Laterality Date ORTHOPEDICS SURGERY HX No family history on file. Social History Tobacco Use Smoking status: Former Packs/day: 1 Types: Cigarettes Quit date: 03/18/2017 Years since quittin.4 Smokeless tobacco: Never Vaping Use Vaping Use: Never used Substance and Sexual Activity Alcohol use: No Comment: previous alcohol problem Drug use: No Types: Crystal Meth, Marijuana Comment: previous use of crystal meth x1 month Sexual activity: Not on file ALLERGIES No Known Allergies Review of Systems Constitutional: Positive for fatigue. Negative for activity change, appetite change, chills and fever. HENT: Negative for congestion, ear pain, rhinorrhea and sore throat. Respiratory: Negative for cough and shortness of breath. Cardiovascular: Negative for chest pain and palpitations. Gastrointestinal: Negative for abdominal pain, diarrhea, nausea and vomiting. Genitourinary: Negative for dysuria, frequency and urgency. Musculoskeletal: Positive for arthralgias. Negative for myalgias. Skin: Positive for wound. Negative for rash. Blisters Neurological: Negative for dizziness and headaches. Psychiatric/Behavioral: Negative for self-injury and suicidal ideas. All other systems reviewed and are negative. Physical Exam Vitals [09/01/23 0731] BP Pulse Temp Temp src Resp SpO2 Weight Height 131/84 82 36.5 ?C (97.7 ?F) Temporal 20 97 % 68 kg (150 lb) 1.676 m (5' 6) Physical Exam Vitals and nursing note reviewed. Constitutional: General: He is not in acute distress. Appearance: He is well-developed. Comments: Patient is sleeping upon my arrival to the room and wakes up easily. He is disheveled but not uncapped. HENT: Head: Normocephalic and atraumatic. Nose: Nose normal. Mouth/Throat: Mouth: Mucous membranes are moist. Pharynx: Oropharynx is clear. Eyes: Extraocular Movements: Extraocular movements intact. Pupils: Pupils are equal, round, and reactive to light. Cardiovascular: Rate and Rhythm: Normal rate and regular rhythm. Heart sounds: Normal heart sounds. No murmur heard. No friction rub. No gallop. Pulmonary: Effort: Pulmonary effort is normal. No respiratory distress. Breath sounds: Normal breath sounds. No stridor. No wheezing, rhonchi or rales. Abdominal: General: Bowel sounds are normal. There is no distension. Palpations: Abdomen is soft. Tenderness: There is no abdominal tenderness. There is no guarding or rebound. Musculoskeletal: General: Normal range of motion. Cervical back: Normal range of motion and neck supple. Right lower leg: No edema. Left lower leg: No edema. Comments: Evaluation of the right hand shows no erythema edema or induration. There is 3 small abrasions over the second MCP fourth MCP and fifth MCP that are from previous injury that is healing. Skin: General: Skin is warm and dry. Neurological: General: No focal deficit present. (more content not included)... Normal [facility] Acetaminophenon 08-11-2023 Acetaminophen [Mass/Vol] ug/mL Normal 10.0-30.0 [facility] Comment on above: Performed By: #### 3 298-7 #### IMTIAZ Mendoza ([id number]) [facility] ([facility] [address] [place] [address]46 Acetaminophen levelon 2023 Acetaminophen [Mass/Vol] ug/mL 10.0 - 30.0 ug/mL [facility] CBC W Auto Differential pane l (Bld)on 08-11-2023 Basophils (Bld) [#/Vol] 0.05 x10*3/uL Normal 0.00-0.10 [facility] Comment on above: Performed By: #### 5 7021-8 #### IMTIAZ Mendoza ([id number]) [facility] ([facility] [address] [place] [address] 29759 Basophils/100 WBC (Bld) 0.3 % Normal 0.0-2.0 [facility] Comment on above: Performed By: #### 5 7021-8 #### IMTIAZ Mendoza ([id number]) [facility] ([facility]) [address] [place] [address] 94625 Eosinophils (Bld) [#/Vol] 0.22 x10*3/uL Normal 0.00-0.70 [facility] Comment on above: Performed By: #### 5 7021-8 #### IMTIAZ Mendoza ([id number]) [facility] ([facility] [address] [place] [address] 59148 Eosinophils/100 WBC (Bld) 1.5 % Normal 0.0-6.0 [facility] Comment on above: Performed By: #### 5 7021-8 #### IMTIAZ Mendoza ([id number]) [facility] ([facility] [address] [place] [address] 65727 Erythrocyte distribution width (RBC) [Ratio] 14.9 % High 11.5-14.5 [facility] Comment on above: Performed By: #### 5 7021-8 #### IMTIAZ Mendoza ([id number]) [facility] ([facility]) [address] [place] [address] 69072 Hematocrit (Bld) [Volume fraction] 46.5 % Normal 41.0-52.0 [facility] Comment on above: Performed By: #### 5 7021-8 #### IMTIAZ Mendoza ([id number]) [facility] ([facility]) [address] [place] [address] Hemoglobin (Bld) [Mass/Vol] 15.3 g/dL Normal 13.5-17.5 [facility] Comment on above: Performed By: #### 5 7021-8 #### IMTIAZ Mendoza ([id number]) [facility] ([facility]) [address] [place] [address] 58249 Immature granulocytes (Bld) [#/Vol] 0.07 x10*3/uL Normal 0.00-0.70 [facility] Comment on above: Performed By: #### 5 7021-8 #### IMTIAZ Mendoza ([id number]) [facility] ([facility] [address] [place] [address] 19480 Immature granulocytes/100 WBC (Bld) 0.5 % Normal 0.0-0.9 [facility] Comment on above: Result Comment: Sailaja ture Granulocyte Count (IG) includes promyelocytes, myelocytes and metamyelocytes but does not include bands. Percent differential counts (%) should be interpreted in the context of the absolute cell counts (cells/UL). Performed By: #### 5 7021-8 #### IMTIAZ Mendoza ([id number]) [facility] ([facility]) [address] [place] [address] Lymphocytes (Bld) [#/Vol] 3.51 x10*3/uL Normal 1.20-4.80 [facility] Comment on above: Performed By: #### 5 7021-8 #### IMTIAZ Mendoza ([id number]) [facility] ([facility]) [address] [place] [address] Lymphocytes/100 WBC (Bld) 23.4 % Normal 13.0-44.0 [facility] Comment on above: Performed By: #### 5 7021-8 #### IMTIAZ Mendoza ([id number]) [facility] ([facility]) [address] [place] [address] MCH (RBC) [Entitic mass] 28.1 pg Normal 26.0-34.0 [facility] Comment on above: Performed By: #### 5 7021-8 #### IMTIAZ Mendoza ([id number]) [facility] ([facility]) [address] [place] [address] MCHC (RBC) [Mass/Vol] 32.9 g/dL Normal 32.0-36.0 [facility] Comment on above: Performed By: #### 5 7021-8 #### IMTIAZ Mendoza ([id number]) [facility] ([facility]) [address] [place] [address] MCV (RBC) [Entitic vol] 85 fL Normal 80-100 [facility] Comment on above: Performed By: #### 5 7021-8 #### IMTIAZ Mendoza ([id number]) [facility] ([facility]) [address] [place] [address] 07798 Monocytes (Bld) [#/Vol] 0.69 x10*3/uL Normal 0.10-1.00 [facility] Comment on above: Performed By: #### 5 7021-8 #### IMTIAZ Mendoza ([id number]) [facility] ([facility]) [address] [place] [address] 09891 Monocytes/100 WBC (Bld) 4.6 % Normal 2.0-10.0 [facility] Comment on above: Performed By: #### 5 7021-8 #### IMTIAZ Mendoza ([id number]) [facility] ([facility]) [address] [place] [address] 54982 Neutrophils (Bld) [#/Vol] 10.47 x10*3/uL High 1.20-7.70 [facility] Comment on above: Result Comment: Perc ent differential counts (%) should be interpreted in the context of the absolute cell counts (cells/uL). Performed By: #### 5 7021-8 #### IMTIAZ Mendoza ([id number]) [facility] ([facility]) [address] [place] [address] [place] [address] Neutrophils/100 WBC (Bld) 69.7 % Normal 40.0-80.0 [facility] Comment on above: Performed By: #### 5 7021-8 #### IMTIAZ Mendoza ([id number]) [facility] ([facility]) [address] [place] [address] 43527 Nucleated RBC/100 WBC (Bld) [Ratio] 0.0 /100 WBCs Normal 0.0-0.0 [facility] Comment on above: Performed By: #### 5 7021-8 #### IMTIAZ Mendoza ([id number]) [facility] ([facility]) [address] [place] [address] 99770 Platelets (Bld) [#/Vol] 384 x10*3/uL Normal 150-450 [facility] Comment on above: Performed By: #### 5 7021-8 #### IMTIAZ Mendoza ([id number]) [facility] ([facility]) [address] [place] [address] 20072 RBC (Bld) [#/Vol] 5.45 x10*6/uL Normal 4.50-5.90 [facility] Comment on above: Performed By: #### 5 7021-8 #### IMTIAZ Mendoza ([id number]) [facility] ([facility]) [address] [place] [address] 78554 WBC (Bld) [#/Vol] 15.0 x10*3/uL High 4.4-11.3 [facility] Comment on above: Performed By: #### 5 7021-8 #### IMTIAZ Mendoza ([id number]) [facility] ([facility]) [address] [place] [address] 71045 Basophils (Bld) [#/Vol] 0.05 10*3/uL [facility] Basophils/100 WBC (Bld) 0.3 % 0.0 - 2.0 % [facility] Eosinophils (Bld) [#/Vol] 0.22 10*3/uL [facility] Eosinophils/100 WBC (Bld) 1.5 % 0.0 - 6.0 % [facility] Erythrocyte distribution width (RBC) [Ratio] 14.9 % High 11.5 - 14.5 % [facility] Hematocrit (Bld) [Volume fraction] 46.5 % 41.0 - 52.0 % [facility] Hemoglobin (Bld) [Mass/Vol] 15.3 g/dL 13.5 - 17.5 g/dL [facility] Immature granulocytes (Bld) [#/Vol] 0.07 10*3/uL [facility] Immature granulocytes/100 WBC (Bld) 0.5 % 0.0 - 0.9 % [facility] Comment on above: Immature Granulocyte Count (IG) includes promyelocytes, myelocytes and metamyelocytes but does not include bands. Percent differential counts (%) should be interpreted in the context of the absolute cell counts (cells/UL). Interpretation and review of laboratory results Abnormal [facility] Lymphocytes (Bld) [#/Vol] 3.51 10*3/uL [facility] Lymphocytes/100 WBC (Bld) 23.4 % 13.0 - 44.0 % [facility] MCH (RBC) [Entitic mass] 28.1 pg 26.0 - 34.0 pg [facility] MCHC (RBC) [Mass/Vol] 32.9 g/dL 32.0 - 36.0 g/dL [facility] MCV (RBC) [Entitic vol] 85 fL 80 - 100 fL [facility] Monocytes (Bld) [#/Vol] 0.69 10*3/uL [facility] Monocytes/100 WBC (Bld) 4.6 % 2.0 - 10.0 % [facility] Neutrophils (Bld) [#/Vol] 10.47 10*3/uL High [facility] Comment on above: Percent differential counts (%) should be interpreted in the context of the absolute cell counts (cells/uL). Neutrophils/100 WBC (Bld) 69.7 % 40.0 - 80.0 % [facility] Nucleated RBC/100 WBC (Bld) [Ratio] 0.0 % [facility] Platelets (Bld) [#/Vol] 384 10*3/uL [facility] RBC (Bld) [#/Vol] 5.45 10*6/uL [facility] WBC (Bld) [#/Vol] 15.0 10*3/uL High [facility] Comprehensive metabolic 2000 panelon 08-11-2023 Albumin BCP dye [Mass/Vol] 4.9 g/dL Normal 3.4-5.0 [facility] Comment on above: Performed By: #### 2 4323-8 #### IMTIAZ Mendoza ([id number]) [facility] ([facility]) [address] [place] [address] ALP [Catalytic activity/Vol] 58 U/L Normal 33-120 [facility] Comment on above: Performed By: #### 2 4323-8 #### IMTIAZ Mendoza ([id number]) [facility] ([facility]) [address] [place] [address] ALT With P-5'-P [Catalytic activity/Vol] 14 U/L Normal 10-52 [facility] Comment on above: Result Comment: Cathleen ents treated with Sulfasalazine may generate falsely decreased results for ALT. Performed By: #### 2 4323-8 #### IMTIAZ Mendoza ([id number]) [facility] ([facility]) [address] [place] [address] Anion gap [Moles/Vol] 23 mmol/L High 10-20 [facility] Comment on above: Performed By: #### 2 4323-8 #### IMTIAZ Mendoza ([id number]) [facility] ([facility] [address] [place] [address] AST With P-5'-P [Catalytic activity/Vol] 22 U/L Normal 9-39 [facility] Comment on above: Performed By: #### 2 4323-8 #### IMTIAZ Mendoza ([id number]) [facility] ([facility] [address] [place] [address] Bilirubin [Mass/Vol] 0.3 mg/dL Normal 0.0-1.2 [facility] Comment on above: Performed By: #### 2 4323-8 #### IMTIAZ Mendoza ([id number]) [facility] ([facility] [address] [place] [address] Calcium [Mass/Vol] 8.7 mg/dL Normal 8.6-10.3 [facility] Comment on above: Performed By: #### 2 4323-8 #### IMTIAZ Mendoza ([id number]) [facility] ([facility] [address] [place] [address] Chloride [Moles/Vol] 105 mmol/L Normal 98-107 [facility] Comment on above: Performed By: #### 2 4323-8 #### IMTIAZ Mendoza ([id number]) [facility] ([facility] [address] [place] [address] CO2 [Moles/Vol] 20 mmol/L Low 21-32 [facility] Comment on above: Performed By: #### 2 4323-8 #### IMTIAZ Mendoza ([id number]) [facility] ([facility]) [address] [place] [address] 15244 Creatinine [Mass/Vol] 0.92 mg/dL Normal 0.50-1.30 [facility] Comment on above: Performed By: #### 2 4323-8 #### IMTIAZ Mendoza ([id number]) [facility] ([facility]) [address] [place] [address] GFR/1.73 sq M.predicted MDRD (S/P/Bld) [Vol rate/Area] mL/min/{1.73_m2} Normal >60 [facility] Comment on above: Result Comment: Calc ulations of estimated GFR are performed using the 2020 CKD-EPI Study Refit equation without the race variable for the IDMS-Traceable creatinine methods. https://jasn.asnjournals.org/content/early//ASN.647720 1644 Performed By: #### 2 4323-8 #### IMTIAZ Mendoza ([id number]) [facility] ([facility]) [address] [place] [address] Glucose [Mass/Vol] 94 mg/dL Normal 74-99 [facility] Comment on above: Performed By: #### 2 4323-8 #### IMTIAZ Mendoza ([id number]) [facility] ([facility] [address] [place] [address] Potassium [Moles/Vol] 3.5 mmol/L Normal 3.5-5.3 [facility] Comment on above: Performed By: #### 2 4323-8 #### IMTIAZ Mendzoa ([id number]) [facility] ([facility]) [address] [place] [address] Protein [Mass/Vol] 7.3 g/dL Normal 6.4-8.2 [facility] Comment on above: Performed By: #### 2 4323-8 #### IMTIAZ Mendoza ([id number]) [facility] ([facility] [address] [place] [address] Sodium [Moles/Vol] 144 mmol/L Normal 136-145 [facility] Comment on above: Performed By: #### 2 4323-8 #### IMTIAZ Mendoza ([id number]) [facility] ([facility]) [address] [place] [address] Urea nitrogen [Mass/Vol] 8 mg/dL Normal 6-23 [facility] Comment on above: Performed By: #### 2 4323-8 #### IMTIAZ Mendoza ([id number]) [facility] ([facility]) [address] [place] [address] Albumin BCP dye [Mass/Vol] 4.9 g/dL 3.4 - 5.0 g/dL [facility] ALP [Catalytic activity/Vol] 58 U/L 33 - 120 U/L [facility] ALT With P-5'-P [Catalytic activity/Vol] 14 U/L 10 - 52 U/L [facility] Comment on above: Patients treated wit h Sulfasalazine may generate falsely decreased results for ALT. Anion gap [Moles/Vol] 23 mmol/L High 10 - 2 0 mmol/L [facility] AST With P-5'-P [Catalytic activity/Vol] 22 U/L 9 - 39 U/L [facility] Bilirubin [Mass/Vol] 0.3 mg/dL 0.0 - 1 .2 mg/dL [facility] Calcium [Mass/Vol] 8.7 mg/dL 8.6 - 10. 3 mg/dL [facility] Chloride [Moles/Vol] 105 mmol/L 98 - 10 7 mmol/L [facility] CO2 [Moles/Vol] 20 mmol/L Low 21 - 32 mmol/L [facility] Creatinine [Mass/Vol] 0.92 mg/dL 0.50 - 1.30 mg/dL [facility] eGFR - PINF [facility] Comment on above: Calculations of kenyetta mated GFR are performed using the 2020 CKD-EPI Study Refit equation without the race variable for the IDMS-Traceable creatinine methods. https://jasn.asnjournals.org/content//ASN.624220 6341 Glucose [Mass/Vol] 94 mg/dL 74 - 99 mg/dL [facility] Interpretation and review of laboratory results Abnormal [facility] Potassium [Moles/Vol] 3.5 mmol/L 3.5 - 5.3 mmol/L [facility] Protein [Mass/Vol] 7.3 g/dL 6.4 - 8.2 g/dL [facility] Sodium [Moles/Vol] 144 mmol/L 136 - 145 mmol/L [facility] Urea nitrogen [Mass/Vol] 8 mg/dL 6 - 23 mg/dL [facility] DRUG SCREEN,URINEon 08-11-19 24 Amphetamines Screen Ql (U) Negative Normal Presumptive Negative [facility] Comment on above: Order Comment: Drug screen results are presumptive and should not be used to assess compliance with prescribed medication. Contact the performing [facility] laboratory to add-on definitive confirmatory testing if clinically indicated. Toxicology screening results are reported qualitatively. The concentration must ???be greater than or equal to the cutoff to be reported as positive. The concentration at which the screening test can detect an individual drug or metabolite varies. The absence of expected drug(s) and/or drug metabolite(s) may indicate non-compliance, inappropriate timing of specimen collection relative to drug administration, poor drug absorption, diluted/adulterated urine, or limitations of testing. For medical purposes only; not valid for forensic use. Interpretive questions should be directed to the laboratory medical directors. Result Comment: CUTO FF LEVEL: 500 NG/ML Cross-reactivity has been reported with high concentrations of the following drugs: buproprion, chloroquine, chlorpromazine, ephedrine, mephentermine, fenfluramine, phentermine, phenylpropanolamine, pseudoephedrine, and propranolol. Performed By: #### D RUG3 #### IMTIAZ Mendoza ([id number]) [facility] ([facility]) [address] [place], [place] [id number] Barbiturates Screen Ql (U) Negative Normal Presumptive Negative [facility] Comment on above: Order Comment: Drug screen results are presumptive and should not be used to assess compliance with prescribed medication. Contact the performing [facility] laboratory to add-on definitive confirmatory testing if clinically indicated. Toxicology screening results are reported qualitatively. The concentration must ???be greater than or equal to the cutoff to be reported as positive. The concentration at which the screening test can detect an individual drug or metabolite varies. The absence of expected drug(s) and/or drug metabolite(s) may indicate non-compliance, inappropriate timing of specimen collection relative to drug administration, poor drug absorption, diluted/adulterated urine, or limitations of testing. For medical purposes only; not valid for forensic use. Interpretive questions should be directed to the laboratory medical directors. Result Comment: CUTO FF LEVEL: 200 NG/ML Performed By: #### D RUG3 #### IMTIAZ Mendoza ([id number]) [facility] ([facility]) [address] [place] [address] 12277 Benzodiazepines Ql (U) Negative Normal Presumptive Negative [facility] Comment on above: Order Comment: Drug screen results are presumptive and should not be used to assess compliance with prescribed medication. Contact the performing [facility] laboratory to add-on definitive confirmatory testing if clinically indicated. Toxicology screening results are reported qualitatively. The concentration must ???be greater than or equal to the cutoff to be reported as positive. The concentration at which the screening test can detect an individual drug or metabolite varies. The absence of expected drug(s) and/or drug metabolite(s) may indicate non-compliance, inappropriate timing of specimen collection relative to drug administration, poor drug absorption, diluted/adulterated urine, or limitations of testing. For medical purposes only; not valid for forensic use. Interpretive questions should be directed to the laboratory medical directors. Result Comment: CUTO FF LEVEL: 200 NG/ML Performed By: #### D RUG3 #### IMTIAZ Mendoza ([id number]) [facility] ([facility]) [address] [place] [address] 91502 Benzoylecgonine Screen Ql (U) Negative Normal Presumptive Negative [facility] Comment on above: Order Comment: Drug screen results are presumptive and should not be used to assess compliance with prescribed medication. Contact the performing [facility] laboratory to add-on definitive confirmatory testing if clinically indicated. Toxicology screening results are reported qualitatively. The concentration must ???be greater than or equal to the cutoff to be reported as positive. The concentration at which the screening test can detect an individual drug or metabolite varies. The absence of expected drug(s) and/or drug metabolite(s) may indicate non-compliance, inappropriate timing of specimen collection relative to drug administration, poor drug absorption, diluted/adulterated urine, or limitations of testing. For medical purposes only; not valid for forensic use. Interpretive questions should be directed to the laboratory medical directors. Result Comment: CUTO FF LEVEL: 150 NG/ML Performed By: #### D RUG3 #### IMTIAZ ZARAGOZAPAK Reji ([id number]) [facility] ([facility]) [address] [place] [address] 92580 Cannabinoids Screen Ql (U) Positive Abnormal Presumptive Negative [facility] Comment on above: Order Comment: Drug screen results are presumptive and should not be used to assess compliance with prescribed medication. Contact the performing [facility] laboratory to add-on definitive confirmatory testing if clinically indicated. Toxicology screening results are reported qualitatively. The concentration must ???be greater than or equal to the cutoff to be reported as positive. The concentration at which the screening test can detect an individual drug or metabolite varies. The absence of expected drug(s) and/or drug metabolite(s) may indicate non-compliance, inappropriate timing of specimen collection relative to drug administration, poor drug absorption, diluted/adulterated urine, or limitations of testing. For medical purposes only; not valid for forensic use. Interpretive questions should be directed to the laboratory medical directors. Result Comment: CUTO FF LEVEL: 50 NG/ML Performed By: #### D RUG3 #### IMTIAZ ZARAGOZANORMAK M ([id number]) [facility] ([facility]) [address] [place], [place] [id number] fentaNYL+Norfentanyl Screen Ql (U) Negative Normal Presumptive Negative [facility] Comment on above: Order Comment: Drug screen results are presumptive and should not be used to assess compliance with prescribed medication. Contact the performing [facility] laboratory to add-on definitive confirmatory testing if clinically indicated. Toxicology screening results are reported qualitatively. The concentration must ???be greater than or equal to the cutoff to be reported as positive. The concentration at which the screening test can detect an individual drug or metabolite varies. The absence of expected drug(s) and/or drug metabolite(s) may indicate non-compliance, inappropriate timing of specimen collection relative to drug administration, poor drug absorption, diluted/adulterated urine, or limitations of testing. For medical purposes only; not valid for forensic use. Interpretive questions should be directed to the laboratory medical directors. Result Comment: CUTO FF LEVEL: 5 NG/ML Performed By: #### D RUG3 #### IMTIAZ STEMPAK M ([id number]) [facility] ([facility]) [address] [place] [address] 54411 Methadone Screen Ql (U) Negative Normal Presumptive Negative [facility] Comment on above: Order Comment: Drug screen results are presumptive and should not be used to assess compliance with prescribed medication. Contact the performing [facility] laboratory to add-on definitive confirmatory testing if clinically indicated. Toxicology screening results are reported qualitatively. The concentration must ???be greater than or equal to the cutoff to be reported as positive. The concentration at which the screening test can detect an individual drug or metabolite varies. The absence of expected drug(s) and/or drug metabolite(s) may indicate non-compliance, inappropriate timing of specimen collection relative to drug administration, poor drug absorption, diluted/adulterated urine, or limitations of testing. For medical purposes only; not valid for forensic use. Interpretive questions should be directed to the laboratory medical directors. Result Comment: CUTO FF LEVEL: 150 NG/ML The metabolite F-gzpmt-rkehzfftdghfwk (LAAM) is not detected by this method in concentrations that would be found in the urine of patients on LAAM therapy. Performed By: #### D RUG3 #### IMTIAZ Mendoza ([id number]) [facility] ([facility] [address] [place] [address] Opiates Screen Ql (U) Negative Normal Presum ptive Negative [facility] Comment on above: Order Comment: Drug screen results are presumptive and should not be used to assess compliance with prescribed medication. Contact the performing [facility] laboratory to add-on definitive confirmatory testing if clinically indicated. Toxicology screening results are reported qualitatively. The concentration must ???be greater than or equal to the cutoff to be reported as positive. The concentration at which the screening test can detect an individual drug or metabolite varies. The absence of expected drug(s) and/or drug metabolite(s) may indicate non-compliance, inappropriate timing of specimen collection relative to drug administration, poor drug absorption, diluted/adulterated urine, or limitations of testing. For medical purposes only; not valid for forensic use. Interpretive questions should be directed to the laboratory medical directors. Result Comment: CUTO FF LEVEL: 300 NG/ML The opiate screen does not detect fentanyl, meperidine, or tramadol. Oxycodone is not consistently detected (refer to Oxycodone Screen, Urine result). Performed By: #### D RUG3 #### IMTIAZ Mendoza ([id number]) [facility] ([facility]) [address] [place] [address] oxyCODONE+oxyMORphone Screen Ql (U) Negative Normal Presumptive Negative [facility] Comment on above: Order Comment: Drug screen results are presumptive and should not be used to assess compliance with prescribed medication. Contact the performing [facility] laboratory to add-on definitive confirmatory testing if clinically indicated. Toxicology screening results are reported qualitatively. The concentration must ???be greater than or equal to the cutoff to be reported as positive. The concentration at which the screening test can detect an individual drug or metabolite varies. The absence of expected drug(s) and/or drug metabolite(s) may indicate non-compliance, inappropriate timing of specimen collection relative to drug administration, poor drug absorption, diluted/adulterated urine, or limitations of testing. For medical purposes only; not valid for forensic use. Interpretive questions should be directed to the laboratory medical directors. Result Comment: CUTO FF LEVEL: 100 NG/ML This test will accurately detect both oxycodone and oxymorphone. Performed By: #### John RUG3 #### IMTIAZ Mendoza ([id number]) [facility] ([facility]) [address] [place] [address] Phencyclidine Ql (U) Negative Normal Presump tive Negative [facility] Comment on above: Order Comment: Drug screen results are presumptive and should not be used to assess compliance with prescribed medication. Contact the performing [facility] laboratory to add-on definitive confirmatory testing if clinically indicated. Toxicology screening results are reported qualitatively. The concentration must ???be greater than or equal to the cutoff to be reported as positive. The concentration at which the screening test can detect an individual drug or metabolite varies. The absence of expected drug(s) and/or drug metabolite(s) may indicate non-compliance, inappropriate timing of specimen collection relative to drug administration, poor drug absorption, diluted/adulterated urine, or limitations of testing. For medical purposes only; not valid for forensic use. Interpretive questions should be directed to the laboratory medical directors. Result Comment: CUTO FF LEVEL: 25 NG/ML Cross-reactivity has been reported with dextromethorphan. Performed By: #### John RUG3 #### IMTIAZ Mendoza ([id number]) [facility] ([facility]) [address] [place] [address] ECG 12 leadOrdered By: Ruth Bran on 08-11-2023 Atrial Rate 113 BPM [facility] Work Phone: P [place] 74 degrees [facility] Work Phone: P Offset 204 ms [facility] Work Phone: P Onset 144 ms [facility] Work Phone: CO Interval 150 ms [facility] Work Phone: Q Onset 219 ms [facility] Work Phone: QRS Count 19 beats [facility] Work Phone: QRS Duration 92 ms [facility] Work Phone: QT Interval 346 ms [facility] Work Phone: QTC Calculation(Bazett) 474 ms [facility] Work Phone: QTC Fredericia 427 ms [facility] Work Phone: R [place] 71 degrees [facility] Work Phone: T [place] 35 degrees [facility] Work Phone: T Offset 392 ms [facility] Work Phone: Ventricular Rate [address] [facility] Work Phone: [facility] Work Phone: ECG 12 leadon 08-11-2023 Sinus tachycardia Possible Left atrial enlargement Borderline ECG No previous ECGs available See ED provider note for full interpretation and clinical correlation Confirmed by Aylin Bran ([id number]) on 08/11/2023 2:33:15 PM Aylin Gayle PA-C - 08/11/2023 Sinus tachycardia Possible Left atrial enlargement Borderline ECG No previous ECGs available See ED provider note for full interpretation and clinical correlation Confirmed by Aylin Bran ([id number]) on 08/11/2023 2:33:15 PM [facility] Work Phone: ECG 12-LEADon 08-11-2023 ECG 12-LEAD Ventricular Rate 113 Atrial Rate 113 P-R Interval 150 QRS Duration 92 Q-T Interval 346 QTC Calculation(Bazett) 474 P [place] 74 R [place] 71 T [place] 35 QRS Count 19 Q Onset 219 P Onset 144 P Offset 204 T Offset 392 QTC Fredericia 427 Diagnosis Sinus tachycardia Possible Left atrial enlargement Borderline ECG No previous ECGs available See ED provider note for full interpretation and clinical correlation Confirmed by Aylin Bran ([id number]) on 08/11/2023 2:33:15 PM Normal [facility] Ethanolon 04-16-2024 Ethanol [Mass/Vol] 77 mg/dL High <=10 [facility] Comment on above: Result Comment: For medical use only. Performed By: #### 5 643-2 #### IMTIAZ Mendoza ([id number]) [facility] ([facility]) [address] [place] [address] Ethanol [Mass/Vol] 77 mg/dL High NINF - 10 mg/dL [facility] Comment on above: For medical use only . Ethanol [Mass/Vol] 242 mg/dL High NINF - 10 mg/dL [facility] Comment on above: For medical use only . Ethanol [Mass/Vol] 242 mg/dL High <=10 [facility] Comment on above: Result Comment: For medical use only. Performed By: #### 5 643-2 #### IMTIAZ Mendoza ([id number]) [facility] ([facility]) [address] [place] [address] Ethanol [Mass/Vol]on 024 Interpretation and review of laboratory results Abnormal [facility] Interpretation and review of laboratory results Abnormal [facility] Glucose Test strip manual (B ld) [Mass/Vol]on 08-11-2023 Glucose [Mass/Vol] 98 mg/dL Normal 74-99 [facility] Comment on above: Performed By: #### 2 341-6 #### IMTIAZ Mendoza ([id number]) [facility] ([facility]) [address] [place] [address] No Panel Informationon 08-10 Interpretation and review of laboratory results Normal [facility] Salicylate levelon 4 Salicylates [Mass/Vol] mg/dL 4 - 20 mg/dL [facility] Salicylateson 08-11-2023 Salicylates [Mass/Vol] mg/dL Normal 4-20 [facility] Comment on above: Performed By: #### 4 024-6 #### IMTIAZ Mendoza ([id number]) [facility] ([facility]) [address] [place] [address] Urinalysis complete W Reflex Culture panel (U)on 08-11-2023 Appearance (U) Clear Normal Clear [facility] Comment on above: Performed By: #### 5 8077-9 #### IMTIAZ Mendoza ([id number]) [facility] ([facility]) [address] [place] [address] Bilirubin (U) [Mass/Vol] Negative Normal NEGATIVE [facility] Comment on above: Performed By: #### 5 8077-9 #### IMTIAZ Mendoza ([id number]) [facility] ([facility]) [address] [place] [address] Color (U) Light-Yellow Normal Light-Yellow , Yellow, Dark-Yellow [facility] Comment on above: Performed By: #### 5 8077-9 #### IMTIAZ Mendoza ([id number]) [facility] ([facility]) [address] [place] [address] Glucose Auto test strip (U) [Mass/Vol] Normal Normal Normal [facility] Comment on above: Performed By: #### 5 8077-9 #### IMTIAZ Mendoza ([id number]) [facility] ([facility]) [address] [place] [address] Ketones (U) [Mass/Vol] Negative Normal NEGATIVE [facility] Comment on above: Performed By: #### 5 8077-9 #### IMTIAZ Mendoza ([id number]) [facility] ([facility]) [address] [place] [address] Leukocyte esterase Auto test strip Ql (U) Negative Normal NEGATIVE [facility] Comment on above: Performed By: #### 5 8077-9 #### IMTIAZ Mendoza ([id number]) [facility] ([facility]) [address] [place] [address] Nitrite Auto test strip Ql (U) Negative Normal NEGATIVE [facility] Comment on above: Performed By: #### 5 8077-9 #### IMTIAZ Mendzoa ([id number]) [facility] ([facility]) [address] [place] [address] pH (U) 6.0 [pH] Normal 5.0, 5.5, 6.0, 6.5, 7.0, 7.5, 8.0 [facility] Comment on above: Performed By: #### 5 8077-9 #### IMTIAZ STEMPAK M ([id number]) [facility] ([facility]) [address] [place] [address] Protein (U) [Mass/Vol] Negative Normal NEGATIVE, 10 (TRACE), 20 (TRACE) [facility] Comment on above: Performed By: #### 5 8077-9 #### IMTIAZ STEMPAK M ([id number]) [facility] ([facility]) [address] [place] [address] RBC (U) [#/Vol] Negative Normal NEGATIVE [facility] Comment on above: Performed By: #### 5 8077-9 #### IMTIAZ STEMPAK M ([id number]) [facility] ([facility]) [address] [place] [address] Specific gravity (U) [Rel density] 1.005 Normal 1.005-1.035 [facility] Comment on above: Performed By: #### 5 8077-9 #### IMTIAZ STEMPAK M ([id number]) [facility] ([facility]) [address] [place] [address] Urobilinogen (U) [Mass/Vol] Normal Normal Normal [facility] Comment on above: Performed By: #### 5 8077-9 #### IMTIAZ STEMPAK M ([id number]) [facility] ([facility]) [address] [place] [address] XR Hand - right 3 Viewson No evidence of acute fracture or dislocation. No evidence of radiopaque foreign body. Signed by: Gerald Niño 08/11/2023 12:17 AM Dictation workstation: [id number] [facility] Interpreted By: Gerald Morgan, STUDY: XR HAND RIGHT 3+ VIEWS; ; 08/10/2023 11:57 pm INDICATION: Signs/Symptoms:cocnern for fb in hand, pt cut hand on broken window. COMPARISON: None. ACCESSION NUMBER(S): [id number] ORDERING CLINICIAN: LESTER SMITH FINDINGS: Bone mineralization is normal. There is no evidence of fracture or dislocation. The joint spaces are maintained. No evidence of radiopaque foreign body. [facility] Gerald Niño, DO - 08/11/2023 Interpreted By: Gerald Niño, STUDY: XR HAND RIGHT 3+ VIEWS; ; 08/10/2023 11:57 pm INDICATION: Signs/Symptoms:cocnern for fb in hand, pt cut hand on broken window. COMPARISON: None. ACCESSION NUMBER(S): [id number] ORDERING CLINICIAN: LESTER SMITH FINDINGS: Bone mineralization is normal. There is no evidence of fracture or dislocation. The joint spaces are maintained. No evidence of radiopaque foreign body. IMPRESSION: No evidence of acute fracture or dislocation. No evidence of radiopaque foreign body. Signed by: Gerald Niño 08/11/2023 12:17 AM Dictation workstation: [id number] [facility] Work Phone: XR Hand - right 3 ViewsOrder ed By: Gerald Niño on 08-11-2023 [facility] Work Phone: Drug Screen, Urineon 024 Amphetamines Screen Ql (U) Negative Presumptive Negative [facility] Comment on above: CUTOFF LEVEL: 500 NG /ML Cross-reactivity has been reported with high concentrations of the following drugs: buproprion, chloroquine, chlorpromazine, ephedrine, mephentermine, fenfluramine, phentermine, phenylpropanolamine, pseudoephedrine, and propranolol. Barbiturates Screen Ql (U) Negative Presumptive Negative [facility] Comment on above: CUTOFF LEVEL: 200 NG /ML Benzodiazepines Ql (U) Negative Presumptive Negative [facility] Comment on above: CUTOFF LEVEL: 200 NG /ML Benzoylecgonine Screen Ql (U) Negative Presumptive Negative [facility] Comment on above: CUTOFF LEVEL: 150 NG /ML Cannabinoids Screen Ql (U) Positive Abnormal Presumptive Negative [facility] Comment on above: CUTOFF LEVEL: 50 NG/ ML fentaNYL+Norfentanyl Screen Ql (U) Negative Presumptive Negative [facility] Comment on above: CUTOFF LEVEL: 5 NG/M L Interpretation and review of laboratory results Abnormal [facility] Methadone Screen Ql (U) Negative Presumptive Negative [facility] Comment on above: CUTOFF LEVEL: 150 NG /ML The metabolite L-qmoxz-qkklsmxeikiamc (LAAM) is not detected by this method in concentrations that would be found in the urine of patients on LAAM therapy. Opiates Screen Ql (U) Negative Presum ptive Negative [facility] Comment on above: CUTOFF LEVEL: 300 NG /ML The opiate screen does not detect fentanyl, meperidine, or tramadol. Oxycodone is not consistently detected (refer to Oxycodone Screen, Urine result). oxyCODONE+oxyMORphone Screen Ql (U) Negative Presumptive Negative [facility] Comment on above: CUTOFF LEVEL: 100 NG /ML This test will accurately detect both oxycodone and oxymorphone. Phencyclidine Ql (U) Negative Presump tive Negative [facility] Comment on above: CUTOFF LEVEL: 25 NG/ ML Cross-reactivity has been reported with dextromethorphan. Drug screen results are presumptive and should not be used to assess compliance with prescribed medication. Contact the performing [facility] laboratory to add-on definitive confirmatory testing if clinically indicated. Toxicology screening results are reported qualitatively. The concentration must be greater than or equal to the cutoff to be reported as positive. The concentration at which the screening test can detect an individual drug or metabolite varies. The absence of expected drug(s) and/or drug metabolite(s) may indicate non-compliance, inappropriate timing of specimen collection relative to drug administration, poor drug absorption, diluted/adulterated urine, or limitations of testing. For medical purposes only; not valid for forensic use. Interpretive questions should be directed to the laboratory medical directors. [facility] Glucose Test strip manual (B ld) [Mass/Vol]on 08-10-2023 Glucose [Mass/Vol] 98 mg/dL 74 - 99 mg/dL [facility] Interpretation and review of laboratory results Normal [facility] Urinalysis complete W Reflex Culture panel (U)on 08-10-2023 Appearance (U) Clear Clear [facility] Bilirubin (U) [Mass/Vol] Negative NEGATIVE [facility] Color (U) Light-Yellow Light-Yellow , Yellow, Dark-Yellow [facility] Glucose Auto test strip (U) [Mass/Vol] Normal Normal mg/dL [facility] Interpretation and review of laboratory results Normal [facility] Ketones (U) [Mass/Vol] Negative NEGATIVE mg/dL [facility] Leukocyte esterase Auto test strip Ql (U) Negative NEGATIVE [facility] Nitrite Auto test strip Ql (U) Negative NEGATIVE [facility] pH (U) 6.0 [pH] 5.0, 5.5, 6.0, 6.5, 7.0, 7.5, 8.0 [facility] Protein (U) [Mass/Vol] Negative NEGATIVE, 10 (TRACE), 20 (TRACE) mg/dL [facility] RBC (U) [#/Vol] Negative NEGATIVE [facility] Specific gravity (U) [Rel density] 1.005 1.005 - 1.035 [facility] Urobilinogen (U) [Mass/Vol] Normal Normal mg/dL [facility] XR HAND RIGHT 3+ VIEWSon XR HAND RIGHT 3+ VIEWS Interpreted By: Gerald Niño, STUDY: XR HAND RIGHT 3+ VIEWS; ; 08/10/2023 11:57 pm INDICATION: Signs/Symptoms:cocnern for fb in hand, pt cut hand on broken window. COMPARISON: None. ACCESSION NUMBER(S): [id number] ORDERING CLINICIAN: LESTER SMITH FINDINGS: Bone mineralization is normal. There is no evidence of fracture or dislocation. The joint spaces are maintained. No evidence of radiopaque foreign body. IMPRESSION: No evidence of acute fracture or dislocation. No evidence of radiopaque foreign body. Signed by: Gerald Niño 08/11/2023 12:17 AM Dictation workstation: [id number] Normal [facility] XR Hand - right 3 Viewson Radiology Study observation (narrative) [facility] Work Phone: Absolute lymphocyte countOrd ered By: Hieu Man on 07-02-2023 Lymphocytes Auto (Unsp spec) [#/Vol] 3.96 10*3/uL 0.83-4.51 [facility] Automated lymphocyte count a s percentage of total leukocytesOrdered By: Hieu Man on 07-02-2023 Lymphocytes/100 WBC Auto (Unsp spec) 34.2 % 19-41 [facility] Basophil percentageOrdered B y: Hieu Man on 07-02-2023 Basophils/100 WBC (Bld) 0.6 % 0-1 [facility] Chloride [Moles/Vol] 108 mmol/L 98-107 [facility] Eosinophils/100 WBC (Bld) 2.2 % 0-5 [facility] Glucose [Mass/Vol] 106 mg/dL 74-106 [facility] Comment on above: Fasting Glucose resu lt from 100 to 125 mg/dL suggests IMPAIRED HOMEOSTASIS per A.D.A. criteria. Hemoglobin (Bld) [Mass/Vol] 12.6 g/dL 13.0-16.5 [facility] Monocytes/100 WBC (Bld) 6.3 % 0-10 [facility] Neutrophils (Bld) [#/Vol] 6.5 10*3/uL 2.0-7.7 [facility] Neutrophils/100 WBC (Bld) 56.4 % 47-70 [facility] Potassium [Moles/Vol] 4.2 mmol/L 3.5-5.1 [facility] Sodium [Moles/Vol] 141 mmol/L 136-145 [facility] WBC (Bld) [#/Vol] 11.6 10*3/uL 4.4-11.0 [facility] Determination of erythrocyte mean corpuscular volume (MCV)Ordered By: Hieu Man on 07-02-2023 MCV (RBC) [Entitic vol] 86.4 fL 80-94 [facility] Erythrocyte distribution wid th ratioOrdered By: Hieu Man on 07-02-2023 Erythrocyte distribution width (RBC) [Ratio] 15.0 % 11.6-14.6 [facility] Erythrocyte distribution wid th standard deviationOrdered By: Hieu Man on 07-02-2023 Erythrocyte distribution width (RBC) [Entitic vol] 47.8 fL 35.1-43.9 [facility] Hematocrit Auto (Bld) [Volum e fraction]Ordered By: Hieu Man on 07-02-2023 Hematocrit (Bld) [Volume fraction] 38.6 % 40-54 [facility] Immature granulocytes/100 WB C Auto (Bld)Ordered By: Hieu Man on 07-02-2023 Immature granulocytes/100 WBC (Bld) 0.300 % 0.0-0.9 [facility] Comment on above: IG% - Immature Granu locytes (promyelocytes, myelocytes and metamyelocytes) > 1% indicates that a LEFT SHIFT is Present. Laboratory - Chemistry and C hemistry - challengeOrdered By: Hieu Man on 07-02-2023 CO2 [Moles/Vol] 27.0 mmol/L 21.0-32.0 [facility] Urea nitrogen/Creatinine [Mass ratio] 18.0 mg/mg 10-20 [facility] Laboratory - Drug toxicology Ordered By: Hieu Man on 07-02-2023 Amphetamines Ql (U) Negative <1000 ng/mL [facility] Benzodiazepines Ql (U) Negative < 200 ng/mL [facility] Cannabinoids Screen Ql (U) Positive < 50 ng/mL [facility] Cocaine Ql (U) Negative < 300 ng/mL [facility] Opiates Ql (U) Negative < 300 ng/mL [facility] Laboratory - Hematology and Cell countsOrdered By: Hieu Man on 07-02-2023 MCH (RBC) [Entitic mass] 28.2 pg 27.0-32.0 [facility] MCHC (RBC) [Mass/Vol] 32.6 g/dL 32-36 [facility] Nucleated RBC/100 WBC (Bld) [Ratio] 0 % 0-5 [facility] Platelet mean volume (Bld) [Entitic vol] 10.5 fL 6.2-12.0 [facility] Platelets (Bld) [#/Vol] 290 10*3/uL 150-450 [facility] No Panel InformationOrdered By: Hieu Man on 07-02-2023 MDMA (Ecstasy) Screen Negative < 500 ng/mL [facility] Urine Barbiturates Screen Negative < 200 ng/mL [facility] Urine Drug Screen Comment [facility] Comment on above: CONFIRMATORY TESTING FOR ALL POSITIVE URINE DRUG SCREENRESULTS WILL ONLY BE SENT OUT UPON PHYSICIAN ORDER. VISTA Urine Drug Screen methods provide only preliminaryanalytical test results. A more specific alternate chemicalmethod must be used in order to obtain a confirmedanalytical result. Gas chromatography/mass spectrometery(GC/MS) is the preferred confirmatory method. Clinicalconsideration and professional judgement should be appliedto any drug of abuse test result, particularly whenpreliminary positive results are used. URINE TCA TESTING MUST BE ORDERED SEPARATELY. USE TESTMNEMONIC: [facility] Urine Methadone Screen Negative < 300 ng/mL [facility] Estimated Creatinine Clearance Calc 119.46 ml/min [facility] Estimated GFR (MDRD) Amer 137 mL/min >60 [facility] Comment on above: GFR Calc Estimated GFR (MDRD) Non-Af Amer 113 mL/min >60 [facility] Comment on above: Non- GFR Calc Ethyl Alcohol Level < 3.0 mg/dL [facility] Comment on above: The serum:whole bloo d ethanol ratio is approximately 1.14and varies slightly with hematocrit. Medical Alcohol reference interval and critical value innon-tolerant individuals; 50 - 100 Impairment 100 Intoxication 100 - 250 Severe Poisoning 250 - 400 Deep/possible fatal coma RBC Auto (Bld) [#/Vol]Ordere d By: Hieu Man on 07-02-2023 RBC (Bld) [#/Vol] 4.47 10*6/uL 4.6-6.2 [facility] Serum or plasma calcium simone urement (mass/volume)Ordered By: Hieu Man on 07-02-2023 Calcium [Mass/Vol] 8.9 mg/dL 8.5-10.1 [facility] Serum or plasma creatinine m easurement (mass/volume)Ordered By: Hieu Man on 07-02-2023 Creatinine [Mass/Vol] 0.83 mg/dL 0.70-1.30 [facility] Comment on above: The validity of the calculated GFR & GFRAA in patients over 70 years has not been determined. Clinical correlation is essential. Serum or plasma urea nitroge n measurement (mass/volume)Ordered By: Hieu Man on 07-02-2023 Urea nitrogen [Mass/Vol] 15 mg/dL 7-18 [facility] Thin prep Papanicolaou smear with manual screeningOrdered By: Hieu Man on 07-02-2023 Thin prep Papanicolaou smear with manual screening 6 5-15 [facility] Urine phencyclidine (PCP) de tectionOrdered By: Hieu Man on 07-02-2023 Phencyclidine Ql (U) Negative < 25 ng/mL [facility] ARTERIAL BLOOD GASESon 01-04 Base deficit (BldA) [Moles/Vol] -23 mmol/L Low -2-0 [facility] Comment on above: Order Comment: Speci men Type: ARTERIAL BLOOD SPECIMENOrdering Facility: [facility] Address: [address] [place] [address] Performed By: #### A LLBG ####[facility] LABORATORYCLIA [id number] [address] Body temperature 97.52 [degF] Normal [facility] Comment on above: Order Comment: Speci men Type: ARTERIAL BLOOD SPECIMENOrdering Facility: [facility] Address: [address] [place] [address] Performed By: #### A LLBG ####[facility] LABORATORYCLIA [id number] [address] [place] Calcium.ionized (BldV) [Mass/Vol] 1.12 mmol/L Normal 1.08-1.30 [facility] Comment on above: Order Comment: Speci men Type: ARTERIAL BLOOD SPECIMENOrdering Facility: [facility] Address: [address] [place] [address] Performed By: #### A LLBG ####[facility] LABORATORYCLIA [id number] [address] [place] Calcium.ionized adjusted to pH 7.4 (BldA) [Moles/Vol] Normal [facility] Comment on above: Order Comment: Speci men Type: ARTERIAL BLOOD SPECIMENOrdering Facility: [facility] Address: [address] [place] [address] Result Comment: Simone ured pH is <7.20. Unable to report normalized Calcium. Performed By: #### A LLBG ####[facility] LABORATORYCLIA [id number] [address] Carboxyhemoglobin (BldA) [Mass fraction] 3.8 % High 0.0-2.0 [facility] Comment on above: Order Comment: Speci men Type: ARTERIAL BLOOD SPECIMENOrdering Facility: [facility] Address: [address] [place] [address] Result Comment: Carb oxyhemoglobin Reference Range for Smokers: 2.0-8.0% Performed By: #### A LLBG ####[facility]ORATORYCLIA [id number] [address] Chloride [Moles/Vol] 102 mmol/L Normal 102-109 [facility] Comment on above: Order Comment: Speci men Type: ARTERIAL BLOOD SPECIMENOrdering Facility: [facility] Address: [address] [place] [address] Performed By: #### A LLBG ####[facility] LABORATORYCLIA [id number] [address] CO2 (Bld) [Partial pressure] mm[Hg] High 36-46 [facility] Comment on above: Order Comment: Speci men Type: ARTERIAL BLOOD SPECIMENOrdering Facility: [facility] Address: [address] [place] [address] Performed By: #### A LLBG ####[facility] LABORATORYCLIA [id number] [address] CO2 adjusted to patient's actual temperature (Bld) [Partial pressure] >100 High 36-46 [facility] Comment on above: Order Comment: Speci men Type: ARTERIAL BLOOD SPECIMENOrdering Facility: [facility] Address: [address] [place] [address] Performed By: #### A LLBG ####[facility] LABORATORYCLIA [id number] [address] Glucose [Mass/Vol] mg/dL Critically low 60-105 [facility] Comment on above: Order Comment: Speci men Type: ARTERIAL BLOOD SPECIMENOrdering Facility: [facility] Address: [address] [place] [address] Performed By: #### A LLBG ####[facility] LABORATORYCLIA [id number] [address] [place] HCO3 (Bld) [Moles/Vol] 22 mmol/L Normal 22-26 [facility] Comment on above: Order Comment: Speci men Type: ARTERIAL BLOOD SPECIMENOrdering Facility: [facility] Address: [address] [place] [address] Performed By: #### A LLBG ####[facility] LABORATORYCLIA [id number] [address] [place] Hematocrit (Bld) [Volume fraction] 56.6 % High 39.0-51.0 [facility] Comment on above: Order Comment: Speci men Type: ARTERIAL BLOOD SPECIMENOrdering Facility: [facility] Address: [address] [place] [address] Performed By: #### A LLBG ####[facility] LABORATORYCLIA [id number] [address] Hemoglobin (Bld) [Mass/Vol] 18.5 g/dL High 13.0-17.0 [facility] Comment on above: Order Comment: Speci men Type: ARTERIAL BLOOD SPECIMENOrdering Facility: [facility] Address: [address] [place] [address] Performed By: #### A LLBG ####[facility] LABORATORYCLIA [id number] [address] [place] Lactate [Moles/Vol] 17.0 mmol/L High 0.5-2.2 [facility] Comment on above: Order Comment: Speci men Type: ARTERIAL BLOOD SPECIMENOrdering Facility: [facility] Address: [address] [place] [address] Performed By: #### A LLBG ####[facility] LABORATORYCLIA [id number] [address] [place] Methemoglobin (Bld) [Mass fraction] 0.6 % Normal 0.0-1.5 [facility] Comment on above: Order Comment: Speci men Type: ARTERIAL BLOOD SPECIMENOrdering Facility: [facility] Address: [address] [place] [address] Performed By: #### A LLBG ####[facility] LABORATORYCLIA [id number] [address] O2 THERAPY RA=Room Air Normal [facility] Comment on above: Order Comment: Speci men Type: ARTERIAL BLOOD SPECIMENOrdering Facility: [facility] Address: [address] [place] [address] Performed By: #### A LLBG ####[facility] LABORATORYCLIA [id number] [address] [place] Oxygen (Bld) [Partial pressure] mm[Hg] Critically low 85-95 [facility] Comment on above: Order Comment: Speci men Type: ARTERIAL BLOOD SPECIMENOrdering Facility: [facility] Address: [address] [place] [address] Performed By: #### A LLBG ####[facility] LABORATORYCLIA [id number] [address] Oxygen adjusted to patient's actual temperature (Bld) [Partial pressure] <40 Critically low 85-95 [facility] Comment on above: Order Comment: Speci men Type: ARTERIAL BLOOD SPECIMENOrdering Facility: [facility] Address: [address] [place] [address] Performed By: #### A LLBG ####[facility] LABORATORYCLIA [id number] [address] [place] Oxyhemoglobin (BldA) [Mass fraction] 9 % Low 95-98 [facility] Comment on above: Order Comment: Speci men Type: ARTERIAL BLOOD SPECIMENOrdering Facility: [facility] Address: [address] [place] [address] Performed By: #### A LLBG ####[facility] LABORATORYCLIA [id number] [address] [place] pH (Bld) 6.82 [pH] Critically low 7.35-7.45 [facility] Comment on above: Order Comment: Speci men Type: ARTERIAL BLOOD SPECIMENOrdering Facility: [facility] Address: [address] [place] [address] Performed By: #### A LLBG ####[facility] LABORATORYCLIA [id number] [address] [facility] pH adjusted to patient's actual temperature (Bld) 6.83 Critically low 7.35-7.45 [facility] Comment on above: Order Comment: Speci men Type: ARTERIAL BLOOD SPECIMENOrdering Facility: [facility] Address: [address] [place] [address] Performed By: #### A LLBG ####[facility] LABORATORYCLIA [id number] [address] PO2 / FIO2 RATIO <190 Low >300 [facility] Comment on above: Order Comment: Speci men Type: ARTERIAL BLOOD SPECIMENOrdering Facility: [facility] Address: [address] [place] [address] Performed By: #### A LLBG ####[facility] LABORATORYCLIA [id number] [address] [place] Potassium [Moles/Vol] 6.4 mmol/L Critically high 3.5-5.0 [facility] Comment on above: Order Comment: Speci men Type: ARTERIAL BLOOD SPECIMENOrdering Facility: [facility] Address: [address] [place] [address] Performed By: #### A LLBG ####[facility] LABORATORYCLIA [id number] [address] [place] Sodium [Moles/Vol] 142 mmol/L Normal 136-144 [facility] Comment on above: Order Comment: Speci men Type: ARTERIAL BLOOD SPECIMENOrdering Facility: [facility] Address: [address] [place] [address] Performed By: #### A LLBG ####[facility] LABORATORYCLIA [id number] [address] Absolute lymphocyte countOrd ered By: Wellington Bower on 01-04-2023 Lymphocytes Auto (Unsp spec) [#/Vol] 2.24 10*3/uL 0.83-4.51 [facility] Basophil percentageOrdered B y: Wellington Bower on 01-04-2023 Basophils/100 WBC (Bld) 0.5 % 0-1 [facility] Chloride [Moles/Vol] 105 mmol/L 98-107 [facility] Eosinophils/100 WBC (Bld) 2.7 % 0-5 [facility] Glucose [Mass/Vol] 116 mg/dL 74-106 [facility] Comment on above: Fasting Glucose resu lt from 100 to 125 mg/dL suggests IMPAIRED HOMEOSTASIS per A.D.A. criteria. Neutrophils (Bld) [#/Vol] 5.4 10*3/uL 2.0-7.7 [facility] Neutrophils/100 WBC (Bld) 63.2 % 47-70 [facility] Potassium [Moles/Vol] 4.0 mmol/L 3.5-5.1 [facility] Sodium [Moles/Vol] 137 mmol/L 136-145 [facility] WBC (Bld) [#/Vol] 8.5 10*3/uL 4.4-11.0 [facility] Blood erythrocytes count (nu mber/volume)Ordered By: Wellington Bower on 01-04-2023 RBC (Bld) [#/Vol] 4.46 10*6/uL 4.6-6.2 [facility] Blood hemoglobin measurement (mass/volume)Ordered By: Wellington Bower on 01-04-2023 Hemoglobin (Bld) [Mass/Vol] 13.0 g/dL 13.0-16.5 [facility] Blood lymphocytes/100 leukoc ytesOrdered By: Wellington Bower on 01-04-2023 Lymphocytes/100 WBC (Bld) 26.4 % 19-41 [facility] Blood monocytes/100 leukocyt esOrdered By: Wellington Bower on 01-04-2023 Monocytes/100 WBC (Bld) 6.8 % 0-10 [facility] Blood platelet mean volumeOr dered By: Wellington Bower on 01-04-2023 Platelet mean volume (Bld) [Entitic vol] 10.9 fL 6.2-12.0 [facility] CBC panel Auto (Bld)on 01-04 Erythrocyte distribution width (RBC) [Ratio] 14.2 % Normal 11.5-15.0 [facility] Comment on above: Order Comment: Speci men Type: BLOOD SPECIMEN [facility] Address: [address] [place] [address] Performed By: #### 5 8410-2 #### [facility] CLIA [id number] [address] OF [facility] Hematocrit (Bld) [Volume fraction] 37.6 % Low 39.0-51.0 [facility] Comment on above: Order Comment: Speci men Type: BLOOD SPECIMEN [facility] Address: [address] [place] [address] Performed By: #### 5 8410-2 #### [facility] CLIA [id number] [address] [place] [facility] Hemoglobin (Bld) [Mass/Vol] 12.6 g/dL Low 13.0-17.0 [facility] Comment on above: Order Comment: Speci men Type: BLOOD SPECIMEN [facility] Address: [address] [place] [address] Performed By: #### 5 8410-2 #### [facility] CLIA [id number] [address] [place] [facility] MCH (RBC) [Entitic mass] 29.1 pg Normal 26.0-34.0 [facility] Comment on above: Order Comment: Speci men Type: BLOOD SPECIMEN [facility] Address: [address] [place] [address] Performed By: #### 5 8410-2 #### [facility] CLIA [id number] [address] [place] [facility] MCHC (RBC) [Mass/Vol] 33.5 g/dL Normal 30.5-36.0 [facility] Comment on above: Order Comment: Speci men Type: BLOOD SPECIMEN [facility] Address: [address] [address] Performed By: #### 5 8410-2 #### [facility] CLIA [id number] [address] MCV (RBC) [Entitic vol] 86.8 fL Normal 80.0-100.0 [facility] Comment on above: Order Comment: Speci men Type: BLOOD SPECIMEN [facility] Address: [address] [address] Performed By: #### 5 8410-2 #### [facility] CLIA [id number] [address] Nucleated RBC (Bld) [#/Vol] 10*3/uL Normal <0.01 [facility] Comment on above: Order Comment: Speci men Type: BLOOD SPECIMEN [facility] Address: [address] [place] [address] Performed By: #### 5 8410-2 #### [facility] CLIA [id number] [address] Platelet mean volume (Bld) [Entitic vol] 10.9 fL Normal 9.0-12.7 [facility] Comment on above: Order Comment: Speci men Type: BLOOD SPECIMEN [facility] Address: [address] [address] Performed By: #### 5 8410-2 #### [facility] CLIA [id number] [address] [place] Platelets (Bld) [#/Vol] 259 10*3/uL Normal 150-400 [facility] Comment on above: Order Comment: Speci men Type: BLOOD SPECIMEN [facility] Address: [address] [place] [address] Performed By: #### 5 8410-2 #### [facility] CLIA [id number] [address] [place] RBC (Bld) [#/Vol] 4.33 10*6/uL Normal 4.20-6.00 [facility] Comment on above: Order Comment: Speci men Type: BLOOD SPECIMEN [facility] Address: [address] [place] [address] Performed By: #### 5 8410-2 #### [facility] CLIA [id number] [address] OF [facility] WBC (Bld) [#/Vol] 11.95 10*3/uL High 3.70-11.00 [facility] Comment on above: Order Comment: Speci men Type: BLOOD SPECIMEN [facility] Address: [address] [place] [address] Performed By: #### 5 8410-2 #### [facility] CLIA [id number] [address] CONSULTon 01-04-2023 CONSULT HNO ID: [id number] Author: Rachel Lawrence MD Service: Urology Author Type: Resident Type: Consults Filed: 01/04/2023 7:44 PM Note Text: -- Attestation signed by Zach Ryan MD at 01/04/2023 9:50 PM I did not see the patient, but I discussed the patient and plan of care with the resident. Zach Ryan MD -- Urology HANDP 01/04/2023 HISTORY OF PRESENT ILLNESS: The patient is a 33 year old male presenting with priapism that started at 10am. Reports significant pain 02/03. Denies any recent trauma to the penis. Feels that it is due to stopping smoking intermittently. Last had cigarette last night. Reports an episode of a prolonged, painful erection in 2018. States that it resolved on its own. Denies taking any new medications. No history of sickle cell disease. Patient was seen at [place] and was transferred to [facility] for further management. Denies any change in pain since then. States that he currently takes Seroquel, Clonidine, Ropinorole. Denies any recent change in dosing. Please see procedure note for further details of ER course PAST MEDICAL HISTORY: PAST MEDICAL HISTORY Diagnosis Date Asthma Bipolar 1 disorder (HCC) GERD without esophagitis 01/30/2020 Psychiatric disorder depression PAST SURGICAL HISTORY: PAST SURGICAL HISTORY Procedure Laterality Date ORTHOPEDICS SURGERY HX ALLERGIES: ALLERGIES No Known Allergies HOME MEDICATIONS: (Not in a hospital admission) FAMILY HISTORY: No family history on file. Social History: Tobacco Use: 1 packs/day Quit 03/18/2017. Types: Cigarettes Alcohol Use: No (previous alcohol problem ) ROS: Constitutional: negative for chills and fevers HEENT: no blurry vision or eye redness Respiratory: negative for hemoptysis and shortness of breath Cardiovascular: negative for dyspnea and syncope Gastrointestinal: negative for jaundice, nausea and vomiting Genitourinary:negative for dysuria and hematuria Hematologic/lymphatic: negative for bleeding Integumentary: no new bruises or lesions Musculoskeletal:negative for muscle weakness Neurological: negative for coordination problems and seizures All other systems negative PHYSICAL EXAM: VITALS: 01/04/23 1726 BP: 113/73 Pulse: 69 Resp: 22 Temp: 36.4 ?C (97.6 ?F) TempSrc: Oral SpO2: 100% Weight: 76.7 kg (169 lb) Height: 167.6 cm (5' 6) General: Alert, in no acute distress Head: Normocephalic, atraumatic Neck: supple, trachea is midline, no obvious masses Respiratory: normal effort, no audible wheezes Cardiovascular: regular pulse and no cyanosis Musculoskeletal: moving all extremities, normal tone Skin: warm and dry Psych: normal mood and affect, oriented Abdomen: soft, non distended, non tender, no organomegaly, no hernias : erect circumcised penis, no skin changes DATA: LABS: BMP: . Glucose (mg/dL) Date Value 02/20/2020 85 Potassium (mmol/L) Date Value 02/20/2020 4.4 Sodium (mmol/L) Date Value 02/20/2020 138 Chloride (mmol/L) Date Value 02/20/2020 101 CO2 (mmol/L) Date Value 02/20/2020 24 Creatinine (mg/dL) Date Value 02/20/2020 1.04 BUN (mg/dL) Date Value 02/20/2020 11 Anion Gap (mmol/L) Date Value 02/20/2020 13 Calcium (mg/dL) Date Value 02/20/2020 9.9 CBC: Hemoglobin (g/dL) Date Value 02/20/2020 14.5 Hematocrit (%) Date Value 02/20/2020 43.6 WBC (k/uL) Date Value 02/20/2020 9.67 Platelet Count (k/uL) Date Value 02/20/2020 216 Urinalysis: Specific [place], Ur Date Value Ref Range Status 02/27/2017 1.015 1.001 - 1.029 Final Glucose, Urine Date Value Ref Range Status 02/27/2017 Negative Negative mg/dL Final Bilirubin, Urine Date Value Ref Range Status 02/27/2017 Negative Negative Final Ketones, Urine Date Value Ref Range Status 02/27/2017 Trace (A) Negative Final Hemoglobin/Blood,Ur Date Value Ref Range Status 02/27/2017 Negative Negative Final Protein, Urine Date Value Ref Range Status 02/27/2017 Negative Negative mg/dL Final Nitrites Date Value Ref Range Status 02/27/2017 Negative Negative Final WBC, Urine Date Value Ref Range Status 07/15/2016 0-5 0 - 5 /HPF Final Urine Culture: RADIOLOGY: na IMPRESSION: 33 year old male with priapism PLAN: - 2g Ancef to be finished prior to DC - ABG analyzed and in line with ischemic priampism - Patient advised to follow up with urology within the next 1-2 weeks, wishes to fu in [place] and will touch base with [place] [facility] - Patient educated/advised to return to ED if he develops another erection lasting >2 hours and especially >4h as his risk of erectile dysfunction will be increased. Also advised that close follow up with urology is important for similar reasons - Patient advised he is to expect pain and sw (more content not included)... Normal [facility] Determination of erythrocyte mean corpuscular volume (MCV)Ordered By: Wellington Bower on 01-04-2023 MCV (RBC) [Entitic vol] 89.0 fL 80-94 [facility] ED NOTEon 01-04-2023 ED NOTE HNO ID: [id number] Author: Yaa Ruiz RN Service: Emergency Medicine Author Type: Registered Nurse Type: ED Notes Filed: 01/04/2023 7:16 PM Note Text: Report given to AZAEL Ramirez [facility] ED NOTE HNO ID: [id number] Author: Yaa Ruiz RN Service: Emergency Medicine Author Type: Registered Nurse Type: ED Notes Filed: 01/04/2023 6:53 PM Note Text: Urology remains at bedside performing procedure. Pt stats are stable. [facility] ED NOTE HNO ID: [id number] Author: Yaa Ruiz RN Service: Emergency Medicine Author Type: Registered Nurse Type: ED Notes Filed: 01/04/2023 6:46 PM Note Text: O2 prepared at bedside [facility] ED NOTE HNO ID: [id number] Author: Yaa Ruiz RN Service: Emergency Medicine Author Type: Registered Nurse Type: ED Notes Filed: 01/04/2023 6:22 PM Note Text: Urology at bedside [facility] ED NOTE HNO ID: [id number] Author: Yaa Ruiz RN Service: Emergency Medicine Author Type: Registered Nurse Type: ED Notes Filed: 01/04/2023 6:51 PM Note Text: All medications prepared at bedside for Urology physicians. [facility] ED NOTE HNO ID: [id number] Author: Yaa Ruiz RN Service: Emergency Medicine Author Type: Registered Nurse Type: ED Notes Filed: 01/04/2023 6:28 PM Note Text: Pt on continuous cardiac and SPO2 monitoring. Pt has call light at bedside. [facility] ED NOTE HNO ID: [id number] Author: Russell Wiggins RN Service: ? Author Type: Registered Nurse Type: ED Notes Filed: 01/04/2023 5:24 PM Note Text: Bed: 22-ED Expected date: Expected time: Means of arrival: Comments: jacqui Pepper [facility] ED PROV NOTEon 01-04-2023 ED PROV NOTE HNO ID: [id number] Author: Doreen Blanco MD Service: Emergency Medicine Author Type: Resident Type: ED Provider Notes Filed: 01/04/2023 7:54 PM Note Text: -- Attestation signed by Dalia Crisostomo MD at 01/04/2023 9:51 PM Attending Note I evaluated the patient and personally participated in the grey components. I agree with the resident's findings and plan as documented and have discussed the case and management of the patient's care with the resident. 33M hx bipolar disorder presents with priapism. States he awoke at 10 AM with an erection which has been constant since that time and has become increasingly more painful. Denies any recent sexual activity or drug use. Recently quit kratom and benzodiazepines cold . States that he had 1 prior episode of priapism which resolved spontaneously and occurred shortly after he stopped smoking. On exam, he is awake and alert, appears uncomfortable. Penis is erect without overlying skin changes. Scrotum and testes normal. Penile ABG consistent with ischemic priapism. Urology consulted, and achieved detumescence after phenylephrine injection and aspiration. Discharged with outpatient urology follow-up. Signature: Dalia Crisostomo MD Date: 01/04/2023 Time: 9:50 PM -- ED Provider Note Patient Name: Matty Whitlock : 1990 SERVICE DATE: 01/04/23 History Patient presents with: Priapism: Pt arrives as a transfer from [place]. Pt has had priapism since 1000 this morning. Pt states has 10/10 pain and is AANDO x4. 33 year old male with PMH of generalized anxiety disorder and depression who presented with chief complaint of priapism. Patient initially presented to [place] ED and was sent to [facility] to see urology. Patient reports this morning around 10am, he woke up with a painful erection that has not gone away. Patient notes his penis feels like it was snapped in half and he feels like he is going to the light. The only medications he took last night were Seroquel, ropinirole, and clonidine. He denies taking any erectile dysnfunction medications ever in his life. He denies any testicular pain. He is able to urinate without pain or issue. He recently quit taking Kratom, last use was 2 days ago. Patient reports a similar episode occurred in the past when he quit smoking cigarettes cold turkey, but it resolved itself that time. He denies any other illicit drug use. He denies any trauma to his penis. PAST MEDICAL HISTORY Diagnosis Date Asthma Bipolar 1 disorder (HCC) GERD without esophagitis 01/30/2020 Psychiatric disorder depression PAST SURGICAL HISTORY Procedure Laterality Date ORTHOPEDICS SURGERY HX No family history on file. Social History Tobacco Use Smoking status: Former Packs/day: 1 Types: Cigarettes Quit date: 03/18/2017 Years since quittin.8 Smokeless tobacco: Never Vaping Use Vaping Use: Never used Substance and Sexual Activity Alcohol use: No Comment: previous alcohol problem Drug use: No Types: Crystal Meth, Marijuana Comment: previous use of crystal meth x1 month Sexual activity: Not on file ALLERGIES No Known Allergies Review of Systems HENT: Negative. Eyes: Negative. Respiratory: Negative. Cardiovascular: Negative for chest pain, palpitations and leg swelling. Gastrointestinal: Negative for constipation, diarrhea, nausea, rectal pain and vomiting. Endocrine: Negative. Genitourinary: Positive for penile pain. Negative for difficulty urinating, dysuria, penile swelling, scrotal swelling and testicular pain. Musculoskeletal: Negative. Skin: Negative. Allergic/Immunologic: Negative. Neurological: Negative. Psychiatric/Behavioral: The patient is nervous/anxious. Physical Exam Vitals [01/04/23 1726] BP Pulse Temp Temp src Resp SpO2 Weight Height 113/73 69 36.4 ?C (97.6 ?F) Oral 22 100 % 76.7 kg (169 lb) 1.676 m (5' 6) Physical Exam Vitals reviewed. Constitutional: Appearance: Normal appearance. He is not ill-appearing, toxic-appearing or diaphoretic. Comments: Sitting in bed, conversational, reporting severe penile pain, HENT: Head: Normocephalic and atraumatic. Mouth/Throat: Mouth: Mucous membranes are moist. Pharynx: Oropharynx is clear. Eyes: Extraocular Movements: Extraocular movements intact. Pupils: Pupils are equal, round, and reactive to light. Cardiovascular: Rate and Rhythm: Normal rate and regular rhythm. Pulmonary: Effort: Pulmonary effort is normal. No respiratory distress. Breath sounds: Normal breath sounds. No wheezing or rales. Abdominal: General: Abdomen is flat. Bowel sounds are normal. There is no distension. Tenderness: There is no abdominal tenderness. There is no guarding. Genitourinary: Penis: Tenderness present. No swelling. Testes: Katey (more content not included)... Normal [facility] Hematocrit Auto (Bld) [Volum e fraction]Ordered By: Wellington Bower on 01-04-2023 Hematocrit (Bld) [Volume fraction] 39.7 % 40-54 [facility] Laboratory - Chemistry and C hemistry - challengeOrdered By: Wellington Bower on 01-04-2023 CO2 [Moles/Vol] 29.0 mmol/L 21.0-32.0 [facility] Urea nitrogen/Creatinine [Mass ratio] 6.3 mg/mg 02-13 [facility] Laboratory - Hematology and Cell countsOrdered By: Wellington Bower on 01-04-2023 Erythrocyte distribution width (RBC) [Entitic vol] 46.1 fL 35.1-43.9 [facility] Erythrocyte distribution width (RBC) [Ratio] 14.3 % 11.6-14.6 [facility] Immature granulocytes/100 WBC (Bld) 0.400 % 0.0-0.9 [facility] Comment on above: IG% - Immature Granu locytes (promyelocytes, myelocytes and metamyelocytes) > 1% indicates that a LEFT SHIFT is Present. MCH (RBC) [Entitic mass] 29.1 pg 27.0-32.0 [facility] Nucleated RBC/100 WBC (Bld) [Ratio] 0 % 0-5 [facility] Auto (RBC) [Mass/Vol]Or dered By: Wellington Bower on 01-04-2023 MCHC (RBC) [Mass/Vol] 32.7 g/dL 32-36 [facility] No Panel InformationOrdered By: Wellington Bower on 01-04-2023 Estimated Creatinine Clearance Calc 89.32 ml/min [facility] Estimated GFR (MDRD) Amer 99 mL/min >60 [facility] Comment on above: GFR Calc Estimated GFR (MDRD) Non-Af Amer 82 mL/min >60 [facility] Comment on above: Non- GFR Calc PT panel Coag (PPP)on 2022 INR Coag (PPP) [Relative time] 1.0 {INR} Normal 0.9-1.3 [facility] Comment on above: Order Comment: Speci men Type: BLOOD SPECIMENOrdering Facility: [facility] Address: [address] [place] [id number] Result Comment: Martha min K Antagonist (VKA) Therapeutic Range: INR 2 to 3 (Target INR of 2.5) Note: For patients treated with VKA drugs, such as warfarin, the [employer] 2012 Guideline recommends a therapeutic INR range of 2 to 3 (target INR of 2.5). This recommendation includes high-risk patients with antiphospholipid syndrome with previous arterial or venous thromboembolism, current-generation mechanical or bioprosthetic aortic heart valve replacement. Note: Patients with mechanical aortic valve replacement and additional risk factors for thromboembolic events (atrial fibrillation, previous thromboembolism, LV dysfunction, hypercoagulable conditions) or an older generation mechanical AVR (i.e., ball in-Cage) or any mechanical MVR should have a INR therapeutic range of 2.5 to 3.5 (target INR of 3). Ethan PUENTE, et al. Chest 2012, 141:7S-47S Meghann CABRERA et al. [facility] 2017, 70: 252-289 Performed By: #### 3 4528-0 ####[facility] LABORATORYCLIA [id number] [place] [address] [place] PT Coag (PPP) [Time] 10.4 s Normal 9.7-13.0 [facility] Comment on above: Order Comment: Speci men Type: BLOOD SPECIMENOrdering Facility: [facility] Address: [address] [place] [address] Performed By: #### 3 [id number] ####[facility] LABORATORYCLIA [id number] [place] [address] [place] Platelets bldOrdered By: Benita Bower on 01-04-2023 Platelets (Bld) [#/Vol] 250 10*3/uL 150-450 [facility] Serum or plasma calcium simone urement (mass/volume)Ordered By: Wellington Bower on 01-04-2023 Calcium [Mass/Vol] 8.3 mg/dL 8.5-10.1 [facility] Serum or plasma creatinine m easurement (mass/volume)Ordered By: Wellington Bower on 01-04-2023 Creatinine [Mass/Vol] 1.11 mg/dL 0.70-1.30 [facility] Comment on above: The validity of the calculated GFR & GFRAA in patients over 70 years has not been determined. Clinical correlation is essential. Serum or plasma urea nitroge n measurement (mass/volume)Ordered By: Wellington Bower on 01-04-2023 Urea nitrogen [Mass/Vol] 7 mg/dL 7-18 [facility] Thin prep Papanicolaou smear with manual screeningOrdered By: Wellington Bower on 01-04-2023 Thin prep Papanicolaou smear with manual screening 3 5-15 [facility] Absolute lymphocyte countOrd ered By: ED PROVIDER on 09-03-2022 Lymphocytes Auto (Unsp spec) [#/Vol] 1.13 10*3/uL 0.83-4.51 [facility] Basophil percentageOrdered B y: ED PROVIDER on 09-03-2022 Basophils/100 WBC (Bld) 0.3 % 0-1 [facility] Chloride [Moles/Vol] 100 mmol/L 98-107 [facility] Eosinophils/100 WBC (Bld) 1.0 % 0-5 [facility] Glucose [Mass/Vol] 124 mg/dL 74-106 [facility] Comment on above: Fasting Glucose resu lt from 100 to 125 mg/dL suggests IMPAIRED HOMEOSTASIS per A.D.A. criteria. Neutrophils (Bld) [#/Vol] 7.0 10*3/uL 2.0-7.7 [facility] Neutrophils/100 WBC (Bld) 75.4 % 47-70 [facility] Potassium [Moles/Vol] 3.7 mmol/L 3.5-5.1 [facility] Sodium [Moles/Vol] 135 mmol/L 136-145 [facility] WBC (Bld) [#/Vol] 9.2 10*3/uL 4.4-11.0 [facility] Blood erythrocytes count (nu mber/volume)Ordered By: ED PROVIDER on 09-03-2022 RBC (Bld) [#/Vol] 4.77 10*6/uL 4.6-6.2 [facility] Blood hemoglobin measurement (mass/volume)Ordered By: ED PROVIDER on 09-03-2022 Hemoglobin (Bld) [Mass/Vol] 13.3 g/dL 13.0-16.5 [facility] Blood lymphocytes/100 leukoc ytesOrdered By: ED PROVIDER on 09-03-2022 Lymphocytes/100 WBC (Bld) 12.3 % 19-41 [facility] Blood monocytes/100 leukocyt esOrdered By: ED PROVIDER on 09-03-2022 Monocytes/100 WBC (Bld) 10.7 % 0-10 [facility] Blood platelet mean volumeOr dered By: ED PROVIDER on 09-03-2022 Platelet mean volume (Bld) [Entitic vol] 10.1 fL 6.2-12.0 [facility] Determination of erythrocyte mean corpuscular volume (MCV)Ordered By: ED PROVIDER on 09-03-2022 MCV (RBC) [Entitic vol] 86.8 fL 80-94 [facility] Hematocrit Auto (Bld) [Volum e fraction]Ordered By: ED PROVIDER on 09-03-2022 Hematocrit (Bld) [Volume fraction] 41.4 % 40-54 [facility] Influenza virus A and B and SARS-CoV-2 (COVID-19) Ag panel - Upper respiratory specimOrdered By: Dr. Cardona on 09-03-2022 SARS-CoV-2 (COVID-19) RNA DINAH+probe Ql (Resp) [facility] Laboratory - Chemistry and C hemistry - challengeOrdered By: ED PROVIDER on 09-03-2022 CO2 [Moles/Vol] 26.0 mmol/L 21.0-32.0 [facility] Urea nitrogen/Creatinine [Mass ratio] 3.2 mg/mg 10-20 [facility] Laboratory - Hematology and Cell countsOrdered By: ED PROVIDER on 09-03-2022 Erythrocyte distribution width (RBC) [Entitic vol] 44.4 fL 35.1-43.9 [facility] Erythrocyte distribution width (RBC) [Ratio] 13.9 % 11.6-14.6 [facility] Immature granulocytes/100 WBC (Bld) 0.300 % 0.0-0.9 [facility] Comment on above: IG% - Immature Granu locytes (promyelocytes, myelocytes and metamyelocytes) > 1% indicates that a LEFT SHIFT is Present. MCH (RBC) [Entitic mass] 27.9 pg 27.0-32.0 [facility] Nucleated RBC/100 WBC (Bld) [Ratio] 0 % 0-5 [facility] MCHC Auto (RBC) [Mass/Vol]Or dered By: ED PROVIDER on 09-03-2022 MCHC (RBC) [Mass/Vol] 32.1 g/dL 32-36 [facility] No Panel InformationOrdered By: ED PROVIDER on 09-03-2022 Estimated Creatinine Clearance Calc 107.60 ml/min [facility] Estimated GFR (MDRD) Amer 121 mL/min >60 [facility] Comment on above: GFR Calc Estimated GFR (MDRD) Non-Af Amer 100 mL/min >60 [facility] Comment on above: Non- GFR Calc Troponin I High Sensitivity 5 pg/mL 3.0-78.0 [facility] Comment on above: Please Note: [place] t Units and Gender Specific Reference Ranges. For more information see Policy Stat Procedure [place] High Sensitivity Troponin (TNIH) and attachments. Platelets bldOrdered By: ED PROVIDER on 09-03-2022 Platelets (Bld) [#/Vol] 270 10*3/uL 150-450 [facility] Serum or plasma calcium simone urement (mass/volume)Ordered By: ED PROVIDER on 09-03-2022 Calcium [Mass/Vol] 8.6 mg/dL 8.5-10.1 [facility] Serum or plasma creatinine m easurement (mass/volume)Ordered By: ED PROVIDER on 09-03-2022 Creatinine [Mass/Vol] 0.93 mg/dL 0.70-1.30 [facility] Comment on above: The validity of the calculated GFR & GFRAA in patients over 70 years has not been determined. Clinical correlation is essential. Serum or plasma urea nitroge n measurement (mass/volume)Ordered By: ED PROVIDER on 09-03-2022 Urea nitrogen [Mass/Vol] 3 mg/dL 7-18 [facility] Thin prep Papanicolaou smear with manual screeningOrdered By: ED PROVIDER on 09-03-2022 Thin prep Papanicolaou smear with manual screening 9 5-15 [facility] Absolute lymphocyte counton 12-27-2021 Lymphocytes Auto (Unsp spec) [#/Vol] 1.89 10*3/uL 0.83-4.51 [facility] Work Phone: Basophil percentageon 2021 Basophils/100 WBC (Bld) 0.5 % 0-1 [facility] Work Phone: Bilirubin [Mass/Vol] 0.40 mg/dL 0.20-1.00 [facility] Work Phone: Comment on above: For patients on eltr ombopag therapy, use of Dimension [place] TBIL is not recommended. Chloride [Moles/Vol] 94 mmol/L 98-107 [facility] Work Phone: Eosinophils/100 WBC (Bld) 1.6 % 0-5 [facility] Work Phone: Glucose [Mass/Vol] 107 mg/dL 74-106 [facility] Work Phone: Comment on above: Fasting Glucose resu lt from 100 to 125 mg/dL suggests IMPAIRED HOMEOSTASIS per A.D.A. criteria. Neutrophils (Bld) [#/Vol] 5.5 10*3/uL 2.0-7.7 [facility] Work Phone: Neutrophils/100 WBC (Bld) 66.7 % 47-70 [facility] Work Phone: Potassium [Moles/Vol] 3.1 mmol/L 3.5-5.1 [facility] Work Phone: Protein [Mass/Vol] 6.9 g/dL 6.4-8.2 [facility] Work Phone: Sodium [Moles/Vol] 130 mmol/L 136-145 [facility] Work Phone: WBC (Bld) [#/Vol] 8.2 10*3/uL 4.4-11.0 [facility] Work Phone: Blood erythrocytes count (nu mber/volume)on 12-27-2021 RBC (Bld) [#/Vol] 4.77 10*6/uL 4.6-6.2 [facility] Work Phone: Blood hemoglobin measurement (mass/volume)on 12-27-2021 Hemoglobin (Bld) [Mass/Vol] 13.0 g/dL 13.0-16.5 [facility] Work Phone: Blood lymphocytes/100 leukoc yteson 12-27-2021 Lymphocytes/100 WBC (Bld) 22.9 % 19-41 [facility] Work Phone: Blood monocytes/100 leukocyt eson 12-27-2021 Monocytes/100 WBC (Bld) 8.1 % 0-10 [facility] Work Phone: Blood platelet mean volumeon 12-27-2021 Platelet mean volume (Bld) [Entitic vol] 9.4 fL 6.2-12.0 [facility] Work Phone: Determination of erythrocyte mean corpuscular volume (MCV)on 12-27-2021 MCV (RBC) [Entitic vol] 81.3 fL 80-94 [facility] Work Phone: Direct bilirubinon 2 Bilirubin.direct [Mass/Vol] 0.10 mg/dL 0.00-0.30 [facility] Work Phone: Hematocrit Auto (Bld) [Volum e fraction]on 12-27-2021 Hematocrit (Bld) [Volume fraction] 38.8 % 40-54 [facility] Work Phone: Laboratory - Chemistry and C hemistry - challengeon 12-27-2021 ALP [Catalytic activity/Vol] 62 U/L 45-117 [facility] Work Phone: ALT [Catalytic activity/Vol] 12 U/L 16-61 [facility] Work Phone: CO2 [Moles/Vol] 26.0 mmol/L 21.0-32.0 [facility] Work Phone: Globulin (S) [Mass/Vol] 3.1 g/dL 2.2-4.2 [facility] Work Phone: Lipase [Catalytic activity/Vol] 131 U/L 73-393 [facility] Work Phone: Urea nitrogen/Creatinine [Mass ratio] 2.3 mg/mg 10-20 [facility] Work Phone: Laboratory - Hematology and Cell countson 12-27-2021 Erythrocyte distribution width (RBC) [Entitic vol] 38.3 fL 35.1-43.9 [facility] Work Phone: Erythrocyte distribution width (RBC) [Ratio] 13.0 % 11.6-14.6 [facility] Work Phone: Immature granulocytes/100 WBC (Bld) 0.200 % 0.0-0.9 [facility] Work Phone: Comment on above: IG% - Immature Granu locytes (promyelocytes, myelocytes and metamyelocytes) > 1% indicates that a LEFT SHIFT is Present. MCH (RBC) [Entitic mass] 27.3 pg 27.0-32.0 [facility] Work Phone: Nucleated RBC/100 WBC (Bld) [Ratio] 0 % 0-5 [facility] Work Phone: MCHC Auto (RBC) [Mass/Vol]on 12-27-2021 MCHC (RBC) [Mass/Vol] 33.5 g/dL 32-36 [facility] Work Phone: No Panel Informationon 12-27 Estimated Creatinine Clearance Calc 116.08 ml/min [facility] Work Phone: Estimated GFR (MDRD) Amer 132 mL/min >60 [facility] Work Phone: Comment on above: GFR Calc Estimated GFR (MDRD) Non-Af Amer 109 mL/min >60 [facility] Work Phone: Comment on above: Non- GFR Calc Troponin I High Sensitivity 4 pg/mL 3.0-78.0 [facility] Work Phone: Comment on above: Please Note: [place] Units and Gender Specific Reference Ranges. For more information see Policy Stat Procedure [place] High Sensitivity Troponin (TNIH) and attachments. Platelets bldon 12-27-2021 Platelets (Bld) [#/Vol] 268 10*3/uL 150-450 [facility] Work Phone: Serum or plasma albumin simone urement (mass/volume)on 12-27-2021 Albumin [Mass/Vol] 3.8 g/dL 3.2-5.0 [facility] Work Phone: Serum or plasma calcium simone urement (mass/volume)on 12-27-2021 Calcium [Mass/Vol] 8.3 mg/dL 8.5-10.1 [facility] Work Phone: Serum or plasma creatinine m easurement (mass/volume)on 12-27-2021 Creatinine [Mass/Vol] 0.87 mg/dL 0.70-1.30 [facility] Work Phone: Comment on above: The validity of the calculated GFR & GFRAA in patients over 70 years has not been determined. Clinical correlation is essential. Serum or plasma urea nitroge n measurement (mass/volume)on 12-27-2021 Urea nitrogen [Mass/Vol] 2 mg/dL 7-18 [facility] Work Phone: Thin prep Papanicolaou smear with manual screeningon 12-27-2021 Thin prep Papanicolaou smear with manual screening 9 U/L 15-37 [facility] Work Phone: Thin prep Papanicolaou smear with manual screening 10 5-15 [facility] Work Phone: [phone] Absolute lymphocyte counton 09-06-2021 Lymphocytes Auto (Unsp spec) [#/Vol] 2.11 10*3/uL 0.83-4.51 [facility] Work Phone: Basophil percentageon 2021 Basophils/100 WBC (Bld) 0.4 % 0-1 [facility] Work Phone: Bilirubin [Mass/Vol] 0.30 mg/dL 0.20-1.00 [facility] Work Phone: Comment on above: For patients on eltr ombopag therapy, use of Dimension [place] TBIL is not recommended. Chloride [Moles/Vol] 98 mmol/L 98-107 [facility] Work Phone: [phone] Eosinophils/100 WBC (Bld) 4.5 % 0-5 [facility] Work Phone: [phone] Glucose [Mass/Vol] 92 mg/dL 74-106 [facility] Work Phone: [phone] Neutrophils (Bld) [#/Vol] 4.1 10*3/uL 2.0-7.7 [facility] Work Phone: Neutrophils/100 WBC (Bld) 56.1 % 47-70 [facility] Work Phone: [phone] Potassium [Moles/Vol] 3.2 mmol/L 3.5-5.1 [facility] Work Phone: Protein [Mass/Vol] 6.6 g/dL 6.4-8.2 [facility] Work Phone: Sodium [Moles/Vol] 131 mmol/L 136-145 [facility] Work Phone: WBC (Bld) [#/Vol] 7.3 10*3/uL 4.4-11.0 [facility] Work Phone: Blood erythrocytes count (nu mber/volume)on 09-06-2021 RBC (Bld) [#/Vol] 4.71 10*6/uL 4.6-6.2 [facility] Work Phone: Blood hemoglobin measurement (mass/volume)on 09-06-2021 Hemoglobin (Bld) [Mass/Vol] 12.8 g/dL 13.0-16.5 [facility] Work Phone: [phone] Blood lymphocytes/100 leukoc yteson 09-06-2021 Lymphocytes/100 WBC (Bld) 29.1 % 19-41 [facility] Work Phone: Blood monocytes/100 leukocyt eson 09-06-2021 Monocytes/100 WBC (Bld) 9.8 % 0-10 [facility] Work Phone: Blood platelet mean volumeon 09-06-2021 Platelet mean volume (Bld) [Entitic vol] 10.3 fL 6.2-12.0 [facility] Work Phone: Determination of erythrocyte mean corpuscular volume (MCV)on 09-06-2021 MCV (RBC) [Entitic vol] 80.9 fL 80-94 [facility] Work Phone: [phone] Hematocrit Auto (Bld) [Volum e fraction]on 09-06-2021 Hematocrit (Bld) [Volume fraction] 38.1 % 40-54 [facility] Work Phone: Laboratory - Chemistry and C hemistry - challengeon 09-06-2021 ALP [Catalytic activity/Vol] 64 U/L 45-117 [facility] Work Phone: [phone] ALT [Catalytic activity/Vol] 16 U/L 16-61 [facility] Work Phone: CO2 [Moles/Vol] 26.0 mmol/L 21.0-32.0 [facility] Work Phone: Globulin (S) [Mass/Vol] 3.2 g/dL 2.2-4.2 [facility] Work Phone: Lipase [Catalytic activity/Vol] 183 U/L 73-393 [facility] Work Phone: Urea nitrogen/Creatinine [Mass ratio] 9.0 mg/mg 10-20 [facility] Work Phone: Laboratory - Hematology and Cell countson 09-06-2021 Erythrocyte distribution width (RBC) [Entitic vol] 39.2 fL 35.1-43.9 [facility] Work Phone: Erythrocyte distribution width (RBC) [Ratio] 13.3 % 11.6-14.6 [facility] Work Phone: Immature granulocytes/100 WBC (Bld) 0.100 % 0.0-0.9 [facility] Work Phone: Comment on above: IG% - Immature Granu locytes (promyelocytes, myelocytes and metamyelocytes) > 1% indicates that a LEFT SHIFT is Present. MCH (RBC) [Entitic mass] 27.2 pg 27.0-32.0 [facility] Work Phone: Nucleated RBC/100 WBC (Bld) [Ratio] 0 % 0-5 [facility] Work Phone: MCHC Auto (RBC) [Mass/Vol]on 09-06-2021 MCHC (RBC) [Mass/Vol] 33.6 g/dL 32-36 [facility] Work Phone: No Panel Informationon 09-06 Estimated Creatinine Clearance Calc 129.47 ml/min [facility] Work Phone: Estimated GFR (MDRD) Amer 149 mL/min >60 [facility] Work Phone: Comment on above: GFR Calc Estimated GFR (MDRD) Non-Af Amer 123 mL/min >60 [facility] Work Phone: Comment on above: Non- GFR Calc Platelets bldon 09-06-2021 Platelets (Bld) [#/Vol] 254 10*3/uL 150-450 [facility] Work Phone: Serum or plasma albumin simone urement (mass/volume)on 09-06-2021 Albumin [Mass/Vol] 3.4 g/dL 3.2-5.0 [facility] Work Phone: Serum or plasma albumin/glob ulin mass ratioon 09-06-2021 Albumin/Globulin [Mass ratio] 1.1 {ratio} 0.9-2.4 [facility] Work Phone: Serum or plasma calcium simone urement (mass/volume)on 09-06-2021 Calcium [Mass/Vol] 8.6 mg/dL 8.5-10.1 [facility] Work Phone: Serum or plasma creatinine m easurement (mass/volume)on 09-06-2021 Creatinine [Mass/Vol] 0.78 mg/dL 0.70-1.30 [facility] Work Phone: Comment on above: The validity of the calculated GFR & GFRAA in patients over 70 years has not been determined. Clinical correlation is essential. Serum or plasma urea nitroge n measurement (mass/volume)on 09-06-2021 Urea nitrogen [Mass/Vol] 7 mg/dL 7-18 [facility] Work Phone: Thin prep Papanicolaou smear with manual screeningon 09-06-2021 Thin prep Papanicolaou smear with manual screening 9 U/L 15-37 [facility] Work Phone: Thin prep Papanicolaou smear with manual screening 7 5-15 [facility] Work Phone: Absolute lymphocyte counton 09-01-2021 Lymphocytes Auto (Unsp spec) [#/Vol] 2.39 10*3/uL 0.83-4.51 [facility] Work Phone: Basophil percentageon 2021 Basophil percentage 0 SEEN /hpf 0-5 [facility] Work Phone: Basophils/100 WBC (Bld) 0.3 % 0-1 [facility] Work Phone: Bilirubin [Mass/Vol] 0.20 mg/dL 0.20-1.00 [facility] Work Phone: Comment on above: For patients on eltr ombopag therapy, use of Dimension [place] TBIL is not recommended. Chloride [Moles/Vol] 106 mmol/L 98-107 [facility] Work Phone: Eosinophils/100 WBC (Bld) 3.5 % 0-5 [facility] Work Phone: Glucose [Mass/Vol] 100 mg/dL 74-106 [facility] Work Phone: Comment on above: Fasting Glucose resu lt from 100 to 125 mg/dL suggests IMPAIRED HOMEOSTASIS per A.D.A. criteria. Neutrophils (Bld) [#/Vol] 6.2 10*3/uL 2.0-7.7 [facility] Work Phone: Neutrophils/100 WBC (Bld) 64.5 % 47-70 [facility] Work Phone: Potassium [Moles/Vol] 3.4 mmol/L 3.5-5.1 [facility] Work Phone: Protein [Mass/Vol] 6.6 g/dL 6.4-8.2 [facility] Work Phone: Sodium [Moles/Vol] 140 mmol/L 136-145 [facility] Work Phone: WBC (Bld) [#/Vol] 9.6 10*3/uL 4.4-11.0 [facility] Work Phone: Bilirubin Test strip Ql (U)o n 09-01-2021 Bilirubin Ql (U) Negative Negative [facility] Work Phone: Blood erythrocytes count (nu mber/volume)on 09-01-2021 RBC (Bld) [#/Vol] 5.03 10*6/uL 4.6-6.2 [facility] Work Phone: Blood hemoglobin measurement (mass/volume)on 09-01-2021 Hemoglobin (Bld) [Mass/Vol] 13.9 g/dL 13.0-16.5 [facility] Work Phone: Blood lymphocytes/100 leukoc yteson 09-01-2021 Lymphocytes/100 WBC (Bld) 24.9 % 19-41 [facility] Work Phone: [phone] Blood monocytes/100 leukocyt eson 09-01-2021 Monocytes/100 WBC (Bld) 6.6 % 0-10 [facility] Work Phone: Blood platelet mean volumeon 09-01-2021 Platelet mean volume (Bld) [Entitic vol] 10.3 fL 6.2-12.0 [facility] Work Phone: Determination of erythrocyte mean corpuscular volume (MCV)on 09-01-2021 MCV (RBC) [Entitic vol] 83.9 fL 80-94 [facility] Work Phone: Hematocrit Auto (Bld) [Volum e fraction]on 09-01-2021 Hematocrit (Bld) [Volume fraction] 42.2 % 40-54 [facility] Work Phone: Ketones Test strip Ql (U)on 09-01-2021 Ketones Ql (U) Negative Negative [facility] Work Phone: Laboratory - Chemistry and C hemistry - challengeon 09-01-2021 ALP [Catalytic activity/Vol] 77 U/L 45-117 [facility] Work Phone: ALT [Catalytic activity/Vol] 14 U/L 16-61 [facility] Work Phone: CO2 [Moles/Vol] 26.0 mmol/L 21.0-32.0 [facility] Work Phone: Globulin (S) [Mass/Vol] 3.0 g/dL 2.2-4.2 [facility] Work Phone: Lipase [Catalytic activity/Vol] 159 U/L 73-393 [facility] Work Phone: Urea nitrogen/Creatinine [Mass ratio] 6.2 mg/mg 10-20 [facility] Work Phone: Laboratory - Hematology and Cell countson 09-01-2021 Erythrocyte distribution width (RBC) [Entitic vol] 44.1 fL 35.1-43.9 [facility] Work Phone: Erythrocyte distribution width (RBC) [Ratio] 14.6 % 11.6-14.6 [facility] Work Phone: Immature granulocytes/100 WBC (Bld) 0.200 % 0.0-0.9 [facility] Work Phone: Comment on above: IG% - Immature Granu locytes (promyelocytes, myelocytes and metamyelocytes) > 1% indicates that a LEFT SHIFT is Present. MCH (RBC) [Entitic mass] 27.6 pg 27.0-32.0 [facility] Work Phone: Nucleated RBC/100 WBC (Bld) [Ratio] 0 % 0-5 [facility] Work Phone: MCHC Auto (RBC) [Mass/Vol]on 09-01-2021 MCHC (RBC) [Mass/Vol] 32.9 g/dL 32-36 [facility] Work Phone: Mucus LM Ql (Urine sed)on Mucus Ql (Urine sed) 0 SEEN /hpf [facility] Work Phone: Nitrite Test strip Ql (U)on 09-01-2021 Nitrite Ql (U) Negative Negative [facility] Work Phone: No Panel Informationon 09-01 Estimated Creatinine Clearance Calc 105.19 ml/min [facility] Work Phone: Estimated GFR (MDRD) Amer 117 mL/min >60 [facility] Work Phone: Comment on above: GFR Calc Estimated GFR (MDRD) Non-Af Amer 97 mL/min >60 [facility] Work Phone: Comment on above: Non- GFR Calc Platelets bldon 09-01-2021 Platelets (Bld) [#/Vol] 289 10*3/uL 150-450 [facility] Work Phone: Protein Test strip Ql (U)on 09-01-2021 Protein Ql (U) Negative Negative [facility] Work Phone: Serum or plasma albumin simone urement (mass/volume)on 09-01-2021 Albumin [Mass/Vol] 3.6 g/dL 3.2-5.0 [facility] Work Phone: Serum or plasma albumin/glob ulin mass ratioon 09-01-2021 Albumin/Globulin [Mass ratio] 1.2 {ratio} 0.9-2.4 [facility] Work Phone: Serum or plasma calcium simone urement (mass/volume)on 09-01-2021 Calcium [Mass/Vol] 8.7 mg/dL 8.5-10.1 [facility] Work Phone: Serum or plasma creatinine m easurement (mass/volume)on 09-01-2021 Creatinine [Mass/Vol] 0.96 mg/dL 0.70-1.30 [facility] Work Phone: Comment on above: The validity of the calculated GFR & GFRAA in patients over 70 years has not been determined. Clinical correlation is essential. Serum or plasma urea nitroge n measurement (mass/volume)on 09-01-2021 Urea nitrogen [Mass/Vol] 6 mg/dL 7-18 [facility] Work Phone: Squamous epithelial cells de tection in urine sediment by light microscopyon 09-01-2021 Epithelial cells.squamous LM Ql (Urine sed) 0 SEEN /hpf 0-5 [facility] Work Phone: Thin prep Papanicolaou smear with manual screeningon 09-01-2021 Thin prep Papanicolaou smear with manual screening 10 U/L 15-37 [facility] Work Phone: Thin prep Papanicolaou smear with manual screening 8 5-15 [facility] Work Phone: Urine blood detectionon -0 RBC Ql (U) Negative Negative [facility] Work Phone: RBC Ql (U) 0 SEEN /hpf 0-5 [facility] Work Phone: Urine clarityon 09-01-2021 Clarity (U) Clear Clear [facility] Work Phone: Urine color determinationon 09-01-2021 Color (U) Yellow Yellow [facility] Work Phone: Urine glucose detectionon Glucose Ql (U) Normal mg/dl Normal [facility] Work Phone: Urine leukocyte esterase det ection by dipstickon 09-01-2021 Leukocyte esterase Test strip Ql (U) Negative Negative [facility] Work Phone: Urine pHon 09-01-2021 pH (U) 6.0 [pH] 5.0 - 8.0 [facility] Work Phone: Urine sediment bacteria coun t by microscopy (number/high power field)on 09-01-2021 Bacteria LM.HPF (Urine sed) [#/Area] 0 /[HPF] None Seen [facility] Work Phone: Urine specific gravity measu rementon 09-01-2021 Specific gravity (U) [Rel density] 1.015 1.002-1.030 [facility] Work Phone: Urobilinogen Auto test strip Ql (U)on 09-01-2021 Urobilinogen Ql (U) Normal mg/dl Normal [facility] Work Phone: LABORATORYOrdered By: Harpreet Greer on 03-22-2021 Appearance (U) Clear (03/22/21 4:23 PM) Invalid Interpretation Code Clear AO Auto Urine SS Bilirubin Ql (U) Negative (03/22/21 4:23 PM) Invalid Interpretation Code Negative AO Auto Urine SS Color (U) Yellow (03/22/21 4:23 PM) Invalid Interpretation Code AO Auto Urine SS Glucose Test strip (U) [Mass/Vol] Negative Invalid Interpretation Code Negativemg/d L AO Auto Urine SS Hemoglobin Auto test strip (U) [Mass/Vol] Negative (03/22/21 4:23 PM) Invalid Interpretation Code Negative AO Auto Urine SS Ketones Ql (U) Negative Invalid Interpretation Code Negativemg/d L AO Auto Urine SS UA Leuk Est Negative (03/22/21 4:23 PM) Invalid Interpretation Code Negative AO Auto Urine SS UA Nitrite Negative (03/22/21 4:23 PM) Invalid Interpretation Code Negative AO Auto Urine SS UA pH 7.0 (03/22/21 4:23 PM) Invalid Interpretation Code 5.0 - 8.0 AO Auto Urine SS UA Protein Negative Invalid Interpretation Code Negativemg/d L AO Auto Urine SS UA Spec Grav 1.015 (03/22/21 4:23 PM) Invalid Interpretation Code 1.015-1.025 AO Auto Urine SS UA Specimen Type Clean Catch (03/22/21 4:23 PM) Invalid Interpretation Code AO Auto Urine SS UA Urobilinogen 0.2 E.U./dL Invalid Interpretation Code 0.2-1.0E.U./ dL AO Auto Urine SS UAon 03-22-2021 Color (U) Yellow Normal [facility] ([place]) Comment on above: Performed By: #### U A #### [address] [address] Glucose (U) [Mass/Vol] Negative Normal Negative [facility] ([place]) Comment on above: Performed By: #### U A #### [address] [address] Ketones Ql (U) Negative Normal Negative [facility] ([place]) Comment on above: Performed By: #### U A #### [address] [address] UA Appear Clear Normal Clear [facility] ([place]) Comment on above: Performed By: #### U A #### [address] [address] UA Blood Negative Normal Negative [facility] ([place]) Comment on above: Performed By: #### U A #### [address] [address] UA Leuk Est Negative Normal Negative [facility] ([place]) Comment on above: Performed By: #### U A #### [address] [address] UA Nitrite Negative Normal Negative [facility] ([place]) Comment on above: Performed By: #### U A #### [address] [address] UA pH 7.0 Normal 5.0 - 8.0 [facility] ([place]) Comment on above: Performed By: #### U A #### [address] [address] UA Protein Negative Normal Negative [facility] ([place]) Comment on above: Performed By: #### U A #### [address] [address] UA Spec Grav 1.015 Normal 1.015-1.025 [facility] ([place]) Comment on above: Performed By: #### U A #### [address] [address] UA Specimen Type Clean Catch Normal [facility] ([place]) Comment on above: Performed By: #### U A #### [address] [address] UA Urobilinogen 0.2 E.U./dL Normal 0.2-1.0 [facility] ([place]) Comment on above: Performed By: #### U A #### [address] [address] Urobilinogen (U) [Mass/Vol] Negative Normal Negative [facility] ([place]) Comment on above: Performed By: #### U A #### [address] [address] XR Abdomen Supine and Uprigh ton 01-30-2020 IMPRESSION: Normal radiographs of the abdomen. Moveman: MINERVA Transcribe Date/Time: Jan 30 2020 1:11P Dictated by : YOUNG BOJORQUEZ, DO This examination was interpreted and the report reviewed and electronically signed by: YOUNG BOJORQUEZ DO on Jan 30 2020 1:12PM [facility] DIVISION OF RADIOLOGY * * *Final Report* * * DATE OF EXAM: Jan 30 2020 12:48PM WOX [id number] - XR ABD 2V SUPINE W UPR/DECUB/CTL / PROCEDURE REASON: Epigastric pain * * * * Physician Interpretation * * * * EXAMINATION: XR ABD 2V SUPINE W UPR/DECUB/CTL PATIENT/TECHNOLOGIST PROVIDED HISTORY: Pt. states history of GI issues for years. Abdominal pain. CLINICAL INFORMATION: 30 years old Male with Epigastric pain 30y/o male seen at [facility] ER last week for GI pain. Continues to have epigastric pa in. Hx of GERD. Please eval. TECHNIQUE: XR ABD 2V SUPINE W UPR/DECUB/CTL Laterality: NOT APPLICABLE Number of different views (projections): 3 COMPARISON: None available RESULT: Gaseous and stool filled loops of bowel are noted in a nonobstructive pattern. No definitive organomegaly or pathologic calcifications. No free intraperitoneal gas. No acute findings of the included lung bases and pelvis. No displaced fractures. DIVISION OF RADIOLOGY Provider, [facility]/30/[facility] * * *Final Report* * * DATE OF EXAM: Jan 30 2020 12:48PM WOX [id number] - XR ABD 2V SUPINE W UPR/DECUB/CTL / PROCEDURE REASON: Epigastric pain * * * * Physician Interpretation * * * * EXAMINATION: XR ABD 2V SUPINE W UPR/DECUB/CTL PATIENT/TECHNOLOGIST PROVIDED HISTORY: Pt. states history of GI issues for years. Abdominal pain. CLINICAL INFORMATION: 30 years old Male with Epigastric pain 30y/o male seen at [facility] ER last week for GI pain. Continues to have epigastric pa in. Hx of GERD. Please eval. TECHNIQUE: XR ABD 2V SUPINE W UPR/DECUB/CTL Laterality: NOT APPLICABLE Number of different views (projections): 3 COMPARISON: None available RESULT: Gaseous and stool filled loops of bowel are noted in a nonobstructive pattern. No definitive organomegaly or pathologic calcifications. No free intraperitoneal gas. No acute findings of the included lung bases and pelvis. No displaced fractures. IMPRESSION IMPRESSION: Normal radiographs of the abdomen. Moveman: MINERVA Transcribe Date/Time: Jan 30 2020 1:11P Dictated by : YOUNG BOJORQUEZ DO This examination was interpreted and the report reviewed and electronically signed by: YOUNG BOJORQUEZ DO on Jan 30 2020 1:12PM EST [facility] Radiology Study observation (narrative) [facility] XR Abdomen Supine and Uprigh tOrdered By: [facility] Provider on 01-30-2020 [facility] CASE MANAGEMon 03-13-2017 CASE MANAGEM HNO ID: [id number] thor: Jessica Parikh (Serafin) DanzingerService: Social WorkAuthor Type: Social WorkerType: Care Mgt Progress NoteFiled: 03/13/2017 10:32 AMNote Text:BEHAVIORAL HEALTH SOCIAL WORK DISCHARGE NOTESERVICE DATE: 03/13/2017SERVICE TIME: 10:25 AMPATIENT'S DISCHARGE PLAN:Discharge DispositionNursing Home Referral InformationResidential Treatment Center Referral InformationGroup HomeHomeless Jail Referral InformationCrisis Stabilization UnitAcute Care Facility Referral InformationAssisted Living Facility Referral InformationHome Care Agency Referral InformationContact PersonGuardianPsychiatry Follow-Up AppointmentMedical Follow-Up AppointmentCounselor Referral InformationCase Management Referral Information Physician Assistant Name: (Fred @ [employer])Agency: ([phone])Family Psychoeducational ([facility]) Follow-Up AppointmentInsurance Physician Assistant Name: Darion Bonilla#: [phone] - Intensive Outpatient/Partial Hospital ProgramBehavioral Health Care - Intensive Outpatient/Partial Hospital ProgramECT Treatment/Follow-UpAdditio nal Discharge InformationPatient/Represe ntative Agreeable With Discharge Plan: YesFREEDOM OF CHOICE EXPLAINED?Yes. A list of appropriate referrals presented to/discussed with Patienton 03/13/2017 at 08:30Patient/Representativ e Given/Explained Medicare Discharge Notice (IMletter):Not ApplicableTRANSPORTATION ARRANGEMENTS:Car : Father will pick upPRESCRIPTIONS FILLED PRIOR TO DISCHARGE:Yes, at hospital pharmacyADDITIONAL NOTES: Pts father is picking up this morning with the plan tomeet up with Physician Assistant from [facility]. Pt reported tpo treatmentteam that I am going to take advantage of this plan [facility], [place] like [place] in [place] withanother 10 [place] in [place]. I really want this to work. This writerspoke with Fred @ [facility] who states that when the pt is with hisparents they will call him with their arrival time for intake. POt isbeing sent with filled p[rescriptions and copies of his demographic sheetfor insurance informationSIGNATURE: YOSEF Canales PATIENT NAME: Matty WhitlockDATE: March 13, 2017 : 10:25 AM [facility] HNO ID: [id number] thor: Julianna Mei: (none)Author Type: PhysicianType: Discharge SummariesFiled: 03/17/2017 9:36 AMNote Text:DISCHARGE SUMMARY BEHAVIORAL HEALTHPATIENT NAME: Matty Whitlock ADMISSION DATE: 02/27/2017MRN: [id number] DISCHARGE DATE: 03/13/2017ATTENDING PHYSICIAN: Julianna Cardona FOR HOSPITALIZATION: Risk of physical harm to selfDISCHARGE DIAGNOSIS:PRIMARY: Schizoaffective d/oChemical dependencyGAF: 60OPERATIONS DURING HOSPITALIZATION: NonePROCEDURES DURING HOSPITALIZATION: No procedures performedHOSPITAL COURSE:Young man miserable and suicidal because of persistent chemical dependencycomplicating rx for what seemsto be underlying psychotic process. With rxand encouragement, he began to ddress his drug problem and with parents'participation worked out dc to a residential drug program. He is in goodcontrol and quite lucid at ok.LABS AND PROCEDURES PENDING AT DISCHARGE: No pending results.CONSULTING TEAMS DURING HOSPITALIZATION: Internal Medicine: admissionPATIENT CONDITION AT DISCHARGE: StableDISCHARGE DISPOSITION: Intermediate Care FacilityCOMPLICATIONS: NoneAt this time the patient has maximized his benefit from hospitalization..The patient denies suicidal or homicidal ideation, intent or plan and issafe for discharge.The patient voices a readiness to transition back to his home setting andhas agreed to our follow-up recommendations including medicationcompliance.SUBJE CTIVE:I feel good, I can go, I think this will help me.OBJECTIVE:Any PRN's required for agitation or anxiety since last encounter: NoNew problems on the unit since the last encounter: NoAny new medication reactions since the last encounter: NoBP 90/60 Pulse 60 Temp (Src) 97.5 (Oral) Resp 16 Ht 5' 7 (1.70m) Wt 170 lb (77.1kg) SpO2 98% BMI 26.62 kg/(m2).MENTAL STATUS EXAM AT DISCHARGE:Appearance: Well dressed, well groomedBehavior: AppropriateOrientation: Person, Place, Time and SituationSpeech/Language: The patient demonstrates appropriate tone, prosody,marin, phonetics, and syntaxMood/Affect: EuthymicThought/Form: LogicalThought Content: CoherentSuicidal Ideations: No suicidal ideation, intent or plan.Homicidal Ideations: No homicidal ideation, intent or plan.Insight: Recognizes presence of illnessJudgment: AppropriateMemory/Cognitio n: IntactPsychomotor: Psychomotor activity was normalGENERAL: Alert, no distress, cooperative.NEUROLOGIC: No gross abnormal findings. Cranial nerves 2-12 are grosslyintact.MUSCULOSKELE EDDIE: Normal muscle strength, Normal muscle tone and Noinvoluntary movements.GAIT: Normal.LABORATORY DATA:The laboratory/imaging results have been reviewed.Pertinent findings since the last assessment: NoTREATMENT PLAN:1. Biological Management: cw rx plus some prn atarax2. Psychological Management Recommendations: support3. Social Intervention Recommendations: confirmINFORMED CONSENT: Yes, completed with the Patient. Discussed the risks,benefits and alternatives to the medication(s) recommended. Consent wasgiven.DISCHARGE MEDICATION: Discharge Medication List as of 03/13/2017 10:31 AMSTART taking these medicationsdivalproex DR (DEPAKOTE) 250 mg EC tabletTake 3 tablets by mouth twice daily.Normal, Disp-180 tablet, R-0hydrOXYzine HCl (ATARAX) 50 mg tabletTake 1 tablet by mouth twice daily as needed (agitation).Normal, Disp-28 tablet, R-0QUEtiapine (SEROQUEL) 200 mg tabletTake 1 tablet by mouth daily at bedtime.Normal, Disp-30 tablet, R-0FLUoxetine (PROZAC) 20 mg capsuleTake 1 capsule by mouth once daily.Normal, Disp-30 capsule, R-0traZODone (DESYREL) 50 mg tabletTake 1 tablet by mouth at bedtime as needed.Normal, Disp-30 tablet, R-0nicotine polacrilex (NICORETTE) 2 mg gumTake 1 Each by mouth every 2 hours as needed.Print RX, Disp-60 Each, R-0Is Patient Discharged on Two Active Antipsychotics? NoINFORMATION PROVIDED TO PATIENT:Substance Abuse Information GivenFUTURE APPOINTMENTS:Discharge Information Admission (Current) from 02/27/2017 in [facility] [place] [address] Retail Attendant Name Darion Dodd DFHM OF CARE: Discharge Management: I personally spent less than 30minutes involved in the discharge management of this patient.SIGNATURE: Julianna Escalera MD PATIENT NAME: Matty WhitlockDATE: March 13, 2017 : 8:16 AM [facility] NURSING PROGon 03-13-2017 NURSING PROG HNO ID: [id number] thor: Regina DodgeRn) Boyd Morejonice: NursingAuthor Type: Registered NurseType: Nursing Progress NoteFiled: 03/13/2017 11:28 AMNote Text:Nursing Progress Note Topic of Note:Daily NoteLane [id number] is neatly dressed and pleasant on approach. He is looking forward tobeing discharged today and begin a journey to recovery in [facility] and then a treatment center in [place].He was receptive to medication teaching at discharge. Mom with patient'spermission was given a copy of his home going medications.This note was completed by: Regina Morejon RN [facility] NURSING PROG HNO ID: [id number] thor: Cori DodgeRn) Boyd Qiuice: (none)Author Type: Registered NurseType: Nursing Progress NoteFiled: 03/13/2017 6:18 AMNote Text: Nursing Progress NotePatient Name: Matty WhitlockMRN: [id number] Location: [id number]/[place] [address]_ Daily Note:Assumed care of pt from 1996-0752. Report received fromprevious shift. At beginning of shift pt was seen out in the day areawatching TV. Upon assessment pt appeared disheveled and was pleasant uponapproach. Pt is discharged focused and voiced excitement over enteringtreatment tomorrow stating, I'm going to stick with it this time. Ptdenies all SI/HI and AVH. Pt was complaining of pain in his right legwhich he states is due to an accident that occurred years ago. Pt receivedTylenol at 2044 with good results. Pt was med compliant with eveningmedications and received Trazodone PRN for c/o insomnia at 2035. Nofurther concerns voiced at this time. Q15 minute safety checks maintained.Pt has been asleep for approximately 8 hours. Q15 minute safety checksmaintained.This note was completed by: Cori Qiu RN [facility] PROGRESSon 03-13-2017 PROGRESS HNO ID: [id number] thor: Palmira Sharma (Pa)Service: PsychiatryAuthor Type: Physician AssistantType: Progress NotesFiled: 03/13/2017 8:41 AMNote Text:NORMA NotePatient to be discharged today. Medications reviewed with Dr. Andrews. Medication reconciliation and prescriptions completed.Prescriptions electronically sent to bedside delivery service to befilled prior to discharge. Javan Whitlock Medication Instructions DOMONIQUE:[id number] Printed on:03/13/[address] (DEPAKOTE) 250 mg EC tabletTake 3 tablets by mouth twice daily.FLUoxetine (PROZAC) 20 mg capsuleTake 1 capsule by mouth once daily.hydrOXYzine HCl (ATARAX) 50 mg tabletTake 1 tablet by mouth twice daily as needed (agitation).nicotine polacrilex (NICORETTE) 2 mg gumTake 1 Each by mouth every 2 hours as needed.QUEtiapine (SEROQUEL) 200 mg tabletTake 1 tablet by mouth daily at bedtime.traZODone (DESYREL) 50 mg tabletTake 1 tablet by mouth at bedtime as needed.Chaparro Causey 201[address]:41 AM [facility] ALLIED HEALTHon 03-12-2017 Creatinine HNO ID: [id number] thor: Sr. Denney ([place] Delmi [place]: Recreational TherapyAuthor Type: TherapistType: Allied HealthFiled: 03/12/2017 3:31 PMNote Text:PROGRESS NOTE BEHAVIORAL HEALTHTopic of Note: Three Day NoteSERVICE DATE: 03/12/2017SERVICE TIME: 3:25pmPatient does not attend any discussion groups (refuses them), but he doesattend art groups and engages fully in the projects and with peers.He isin good control, pleasant, calm, and in a good mood. He is showing goodself-care. Groups will continue to be encouraged in order to promotehealthy coping and social skills.SIGNATURE: Sr. Jumana Del Rio [facility] PATIENT NAME: Matty EliasTE: March 12, 2017 : 3:29 PM PAGER/CONTACT #: [facility] CASE MANAGEMon 03-12-2017 CASE MANAGEM HNO ID: [id number] thor: Regina Houston ([place])Service: Behavioral HealthAuthor Type: Social WorkerType: Care Mgt Progress NoteFiled: 03/12/2017 3:17 PMNote Text:BEHAVIORAL HEALTH SOCIAL WORKPROGRESS NOTESERVICE DATE: 03/12/2017SERVICE TIME: 3:14 pmPatient has been accepted into the [facility] and can starttomorrow. Parents are making arrangements to transport the patient, whichmay take place later in the day. Patient will need to have his medicationsfilled prior to discharge and needs a face sheet showing his insuranceinformation. [facility] will arrange follow up for medicationsmanagement with a local [facility] that [facility]SIGNATURE: YOSEF Forte PATIENT NAME: Matty WhitlockDATE: March 12, 2017 : 3:14 PM [facility] NURSING PROGon 03-12-2017 NURSING PROG HNO ID: [id number] thor: Romi Gifford (Rn) SHIREEN Oteroervice: NursingAuthor Type: Registered NurseType: Nursing Progress NoteFiled: 03/12/2017 6:21 PMNote Text: Nursing Progress NotePatient Name: Matty WhitlockMRN: [id number] Location: [id number]/[place] [address]_ Daily Note:Pt is in control. He c/o pain in his left leg where he has a sherine placedafter an accident years ago. Requested and received motrin along withatarax. Pt showered unprompted and stated he is being dischargedtomorrow.Q15 minute rounds maintained this shift. Comfort and safetymeasures observed and met.Routine precautions continued.Pt acceptedmedications as ordered.Patient denies current suicidal thoughts, denieshomicidal thoughts. Denies auditory hallucinations, denies visualhallucinations. Pt animated, broad range of affect.This note was completed by: Romi Otero RN [facility] NURSING PROG HNO ID: [id number] thor: Janice Sullivan Lpnice: (none)Author Type: LICENSED NURSEType: Nursing Progress NoteFiled: 03/12/2017 8:01 AMNote Text: Nursing Progress NotePatient Name: Matty WhitlockN: [id number] Location: [place] [address]*_ Daily Note:0000 Report received from previous shift. Patient resting inbed,eyes closed. Q15 minute safety checks maintained. Will continue tomonitor.0700 Patient slept majority of shift. No somatic complaints voiced.Status unremarkable. Patient slept 7 hours. Will continue to monitor.This note was completed by: Danica Fish LPN [facility] NURSING PROG HNO ID: [id number] thor: Anna Diez Lpn: NursingAuthor Type: LICENSED NURSEType: Nursing Progress NoteFiled: 03/12/2017 12:06 PMNote Text: Nursing Progress NotePatient Name: Matty WhitlockN: [id number] Location: [id number][id number]*_ Daily Note:Patient is alert and oriented X3. He is neatly dressed in street clothes. Mood and affect are euthymic. He has remained pleasant and cooperativewith all nursing measures. He has been medication compliant. Remainsseclusive to self and room. Out for meals only. Appetite is god. Willcontinue to monitor on Q 15 minute safety checks.This note was completed by: Alejandra Morales LPN [facility] NUTRITIONon 03-12-2017 NUTRITION HNO ID: [id number] thor: Roly Graff) Nathalieervice: Nutrition TherapyAuthor Type: Registered DietitianType: NutritionFiled: 03/12/2017 6:46 AMNote Text:NUTRITION THERAPY SCREENING NOTESERVICE DATE: 03/12/2017SERVICE TIME: 6:45 AMNUTRITION CARE PLANPatient's weight is stable and nutritional intake is adequate. Patient isnot at risk for malnutrition at this time.Intervention:- Regular dietDischarge Nutrition Recommendations:Diet: RegularPt screened per LOS policy. Pt eating well per log sawyer with nosignificant changes in weight. Continue to monitor and intervene per LOSpolicy or upon consultation.Present Diet Order: RegularAdmission Weight: 77.1 kg (170 lb)Current Weight: 77.1 kg (170 lb)Body mass index is 26.63 kg/(m2). overweightWeight has not changed.MNT Billing Type: Re-assess/15 min 1 unitSIGNATURE: Roly Love RD PATIENT NAME: Matty WhitlockDATE: March 12, 2017 : 6:45 AM PAGER: [phone] [facility] PROGRESSon 03-12-2017 PROGRESS HNO ID: [id number] thor: Julianna EscaleraService: (none)Author Type: PhysicianType: Progress NotesFiled: 03/12/2017 9:27 AMNote Text:PROGRESS NOTE BEHAVIORAL HEALTHSERVICE DATE: 03/12/2017SERVICE TIME: 10:10 AMThe Interdisciplinary team met and reviewed treatment goals and dischargeplanning.CLIFF Holland in office, reasonable and in control. He is clear and lucid, goodspirits, cooperative. 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 He has ZEROcopay for seroquel so money is not a reason for him not to take it.PHYSICAL EXAM: BP 110/60 Pulse 60 Temp 36.7 ?C (98.1 ?F) (Oral) Resp18 Ht 170.2 cm (5' 7) Wt 77.1 kg (170 lb) SpO2 98% BMI 26.63kg/q6XCGUVG STATUS EXAMINATION:Appearance: Appears stated age and In hospital gown, in office, withfamily.Behavior: Calmer, more organizedOrientation: Person, Place, Time and SituationSpeech/Language: The patient demonstrates appropriate tone, prosody,marin, phonetics, and syntaxMood/Affect: Calm, cooperativeThought Form: CoherentThought Content: CoherentSuicidal Ideations: No threatHomicidal Ideations: No homicidal ideation, intent or plan.Insight: goodJudgment: FairMemory/Cognition: IntactPsychomotor: Psychomotor activity was normalNEW PROBLEMS ON UNIT SINCE LAST ENCOUNTER: NoneCurrent hospital medications:hydrOXYzine HCl 50 mg tab(s) (ATARAX) 50 mg ORAL q 6 H PRNFLUoxetine 20 mg cap(s) (PROzac) 20 mg ORAL DAILYQUEtiapine 200 mg tab(s) (SEROquel) 200 mg ORAL AT BEDTIMEhaloperidol 10 mg tab(s) (HALDOL) 10 mg ORAL q 4 H PRNhaloperidol lactate 10 mg injection (HALDOL) 10 mg INTRAMUSCULAR q 4 H PRNdiphenhydrAMINE 50 mg injection (BENADRYL) 50 mg INTRAMUSCULAR q 4 H PRNnicotine 21 mg/24 hr 1 Patch (NICODERM) 1 Patch TRANSDERMAL DAILYnicotine -- REMOVE patch OTHER DAILYnicotine - verify patch OTHER q [address] (DEPAKOTE) tab(s) 750 mg 750 mg ORAL BIDnicotine polacrilex 2 mg gum (NICORETTE) 2 mg ORAL q 2 H PRNtraZODone 50 mg tab(s) (DESYREL) 50 mg ORAL HS PRNacetaminophen 650 mg tab(s) (TYLENOL) 650 mg ORAL q 6 H PRNaluminum-magnesium hydroxide-simethicone 200-200-20 mg/5 mL 30 mL(MAALOX,MYLANTA,MAG-AL PLUS) 30 mL ORAL q 4 H PRNmagnesium hydroxide 400 mg/5 mL 30 mL (MOM) 30 mL ORAL DAILY PRNDATA:Diagnostic tests reviewed for today's visit:Results for MATTY WHITLOCK ( ) as of 03/04/2017 09:44 Ref. Range 03/04/2017 06:47Valproic Acid Latest Ref Range: 50 - 100 ug/mL 83.8ASSESSMENT/PLANDIAGNOS IS:1) Schizoaffective d/oChemical dependencyRISK ASSESSMENT:Suicide: lowHomicide: lowDeliberate Self-Harm: lowAggression: lowImminent Physical Self Impairment: lowINFORMED CONSENT: Yes, completed with the Patient. Discussed the risks,benefits and alternatives to the medication(s) recommended. Consent wasgiven.INTERVENTION:Biol ogical: continue current. Depakote, prozac, seroquel. vpa level Results for MATTY WHITLOCK ( ) as of 03/09/2017 08:56 Ref. Range 03/09/2017 06:04Valproic Acid Latest Ref Range: 50 - 100 ug/mL 93.8Psychological: Encourage group and milieu despite his refusal.Social: discharge planning - per . Need develop structured dc plan incsobriety.DISCHARGE PLANNING: Discharge when there is a dc plan.SIGNATURE: Julianna Escalera MD PATIENT NAME: Matty WhitlockDATE: March 12, 2017 : 10:10 AM [facility] CASE MANAGEMon 03-11-2017 CASE MANAGEM HNO ID: [id number] thor: Regina Plata () JunService: Behavioral HealthAuthor Type: Social WorkerType: Care Mgt Progress NoteFiled: 03/11/2017 2:12 PMNote Text:BEHAVIORAL HEALTH SOCIAL WORKPROGRESS NOTESERVICE DATE: 03/11/2017SERVICE TIME: 2:06 pmSocial work continued to assist patient in contacting treatmentfacilities. Patient's mother faxed another list of treatmentpossibilities. SW contacted [facility] and was told there are no beds currentlyand the patient can try again in about one month. Left another message forintake at [facility] in [place]. Serafin spoke with Aiyana mendoza be emailing an application to this worker. There are openings but a$500 charge initially. Diya Sanabria has a treatment cost of $23,000. Thepatient would need to complete an intake appointment after dischargebefore he can be considered at the [facility]. [facility]for [facility] and [facility]. In summary,patient has been unable to secure a treatment facility to date. SERAFIN willcontinue to assist.SIGNATURE: YOSEF Forte PATIENT NAME: Matty WhitlockDATE: March 11, 2017 : 2:06 PM [facility] NURSING PROGon 03-11-2017 NURSING PROG HNO ID: [id number] thor: LAURIE Diez Lpnervice: NursingAuthor Type: LICENSED NURSEType: Nursing Progress NoteFiled: 03/11/2017 7:28 PMNote Text: Nursing Progress NotePatient Name: Matty WhitlockMRN: [id number] Location: [place] [address]*_ Daily Note:Patient remains mostly seclusive to self and bed and out for meals. Hedid meet with the social media editor and made a few phone calls late thisafternoon. Ate well at supper. Presently in bed sleeping. Will continueto monitor on Q 15 minute safety checks.This note was completed by: Alejandra Morales LPN [facility] NURSING PROG HNO ID: [id number] thor: Alejandra DodgeRailroad Dining Car StewardessLAURIE Nunezervice: NursingAuthor Type: LICENSED NURSEType: Nursing Progress NoteFiled: 03/11/2017 12:55 PMNote Text: Nursing Progress NotePatient Name: Matty Francois: [id number] Location: [place] [address]/[place] [address]*_ Daily Note:Patient is alert and oriented X3. Mood and affect are euthymic. Hedenies any A/V hallucinations or any homicidal or suicidal ideation. Hehas been pleasant and cooperative with all nursing measures. Medicationcompliant. Appetite is good. Remains seclusive to self and bed.Sleeping all shift except for meals. States' he wants a good dischargeplan so he can remain sober and not have to come back. Will continue tomonitor on Q 15 minute safety checks.This note was completed by: Alejandra Morales LPN [facility] PROGRESSon 03-11-2017 PROGRESS HNO ID: [id number] thor: Julianna EscaleraService: (none)Author Type: PhysicianType: Progress NotesFiled: 03/11/2017 8:56 AMNote Text:PROGRESS NOTE BEHAVIORAL HEALTHSERVICE DATE: 03/11/2017SERVICE TIME: 10:10 AMThe Interdisciplinary team met and reviewed treatment goals and dischargeplanning.SUBJECTI VESeen in office, reasonable and in control. He is clear and lucid, goodspirits, cooperative. 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 He has ZEROcopay for seroquel so money is not a reason for him not to take it.PHYSICAL EXAM: BP 102/55 Pulse 69 Temp 36.7 ?C (98.1 ?F) (Oral) Resp14 Ht 170.2 cm (5' 7) Wt 77.1 kg (170 lb) SpO2 98% BMI 26.63kg/b6HBVOQX STATUS EXAMINATION:Appearance: Appears stated age and In hospital gown, in office, withfamily.Behavior: Calmer, more organizedOrientation: Person, Place, Time and SituationSpeech/Language: The patient demonstrates appropriate tone, prosody,marin, phonetics, and syntaxMood/Affect: Calm, cooperativeThought Form: CoherentThought Content: CoherentSuicidal Ideations: No threatHomicidal Ideations: No homicidal ideation, intent or plan.Insight: goodJudgment: FairMemory/Cognition: IntactPsychomotor: Psychomotor activity was normalNEW PROBLEMS ON UNIT SINCE LAST ENCOUNTER: NoneCurrent hospital medications:hydrOXYzine HCl 50 mg tab(s) (ATARAX) 50 mg ORAL q 6 H PRNFLUoxetine 20 mg cap(s) (PROzac) 20 mg ORAL DAILYQUEtiapine 200 mg tab(s) (SEROquel) 200 mg ORAL AT BEDTIMEhaloperidol 10 mg tab(s) (HALDOL) 10 mg ORAL q 4 H PRNhaloperidol lactate 10 mg injection (HALDOL) 10 mg INTRAMUSCULAR q 4 H PRNdiphenhydrAMINE 50 mg injection (BENADRYL) 50 mg INTRAMUSCULAR q 4 H PRNnicotine 21 mg/24 hr 1 Patch (NICODERM) 1 Patch TRANSDERMAL DAILYnicotine -- REMOVE patch OTHER DAILYnicotine - verify patch OTHER q [address] (DEPAKOTE) tab(s) 750 mg 750 mg ORAL BIDnicotine polacrilex 2 mg gum (NICORETTE) 2 mg ORAL q 2 H PRNtraZODone 50 mg tab(s) (DESYREL) 50 mg ORAL HS PRNacetaminophen 650 mg tab(s) (TYLENOL) 650 mg ORAL q 6 H PRNaluminum-magnesium hydroxide-simethicone 200-200-20 mg/5 mL 30 mL(MAALOX,MYLANTA,MAG-AL PLUS) 30 mL ORAL q 4 H PRNmagnesium hydroxide 400 mg/5 mL 30 mL (MOM) 30 mL ORAL DAILY PRNDATA:Diagnostic tests reviewed for today's visit:Results for MATTY WHITLOCK ( ) as of 03/04/2017 09:44 Ref. Range 03/04/2017 06:47Valproic Acid Latest Ref Range: 50 - 100 ug/mL 83.8ASSESSMENT/PLANDIAGNOS IS:1) Schizoaffective d/oChemical dependencyRISK ASSESSMENT:Suicide: lowHomicide: lowDeliberate Self-Harm: lowAggression: lowImminent Physical Self Impairment: lowINFORMED CONSENT: Yes, completed with the Patient. Discussed the risks,benefits and alternatives to the medication(s) recommended. Consent wasgiven.INTERVENTION:Biol ogical: continue current. Depakote, prozac, seroquel. vpa level Results for MATTY WHITLOCK ( ) as of 03/09/2017 08:56 Ref. Range 03/09/2017 06:04Valproic Acid Latest Ref Range: 50 - 100 ug/mL 93.8Psychological: Encourage group and milieu despite his refusal.Social: discharge planning - per SERAFIN. Need develop structured dc plan incsobriety.DISCHARGE PLANNING: Discharge when there is a dc plan. Mid-week probablySIGNATURE: Julianna Escalera MD PATIENT NAME: Matty WhitlockDATE: March 11, 2017 : 10:10 AM [facility] CASE MANAGEMon 03-10-2017 CASE MANAGEM HNO ID: [id number] thor: Regina Plata (Serafin) JunService: Behavioral HealthAuthor Type: Social WorkerType: Care Mgt Progress NoteFiled: 03/10/2017 3:29 PMNote Text:BEHAVIORAL HEALTH SOCIAL WORKPROGRESS NOTESERVICE DATE: 03/10/2017SERVICE TIME: 3:23 pmFamily meeting this morning with patient's parents who are requestingpatient be discharged to a residential drug treatment program. Mother hasprovided the patient with a list of programs to contact. SERAFIN assistedpatient in speaking with Darci at [facility], which is 18 monthslong. She will discuss with her team and call back. Also left anothermessage for [facility] in [place]. Spoke with Joanne Simental, which is an outpatient program.Patient feels parents are managing his treatment plan. I am a grown manand should be able to make my own decisions. He is not interested in anyof the above programs. He wants to be discharged to the [facility] in [place], where he has been in the past. He is familiar with theoutpatient substance abuse and mental health programs there. He is willingto follow up with both.SIGNATURE: ZuleymaYOSEF Anand PATIENT NAME: Matty WhitlockDATE: March 10, 2017 : 3:23 PM [facility] NURSING PROGon 03-10-2017 NURSING PROG HNO ID: [id number] thor: Alesia (Rn) Davon, Boydice: (none)Author Type: Registered NurseType: Nursing Progress NoteFiled: 03/11/2017 6:24 AMNote Text: Nursing Progress NotePatient Name: Matty RainN: [id number] Location: [id number]/[place] [address]*_ Daily Note:Patient denies suicidal and homicidal ideations, delusions andhallucinations. He is pleasant on approach and cooperative with vitalsigns. Matty is seclusive to room and self and ate snack. He receivedscheduled evening medications and Trazodone PRN for sleep. Matty sleptmajority of night with no complaints.This note was completed by: Alesia Mays RN [facility] NURSING PROG HNO ID: [id number] thor: Romi Gifford (Azael) Boyd Oteroice: NursingAuthojose Type: Registered NurseType: Nursing Progress NoteFiled: 03/10/2017 7:04 PMNote Text: Nursing Progress NotePatient Name: Matty RainN: [id number] Location: [id number]/[place] [address]*_ Daily Note:Pt has been med seeking, stated he was feeling very anxious and he couldnot take it. Talked about all of his past cd treatments and he cannot makeup his mind if he wants the 18 month program that is an option for himafter discharge. He did attend his first group since admittion and statedhe will attend one tomorrow. Received prn atarax x 2 and haldol x 1. Ptseclusive most of shift. Q15 minute rounds maintained this shift. Comfortand safety measures observed and met.Affect congruent with mood anddemeanor. Routine precautions continued.Identification band check, roomcheck and rounding preformed. No behavioral issues or outbursts wereobserved.Pt accepted medications as ordered.This note was completed by: Romi Otero RN [facility] NURSING PROG HNO ID: [id number] thor: Anna Sullivan Lpn: (none)Author Type: LICENSED NURSEType: Nursing Progress NoteFiled: 03/10/2017 9:57 AMNote Text: Nursing Progress NotePatient Name: Matty WhitlockMRN: [id number] Location: [place] [address] [address]*_ Daily Note:0000 Report received from previous shift. Patient resting inbed,eyes closed. Q15 minute safety checks maintained. Will continue tomonitor.0700 Patient slept majority of shift. No somatic complaints voiced.Status unremarkable. Patient slept 7 hours. Will continue to monitor.This note was completed by: Danica Fish LPN [facility] NURSING PROG HNO ID: [id number] thor: Anna Gruber Lpn: (none)Author Type: LICENSED NURSEType: Nursing Progress NoteFiled: 03/09/2017 10:09 PMNote Text: Nursing Progress NotePatient Name: Matty WhitlockMRN: [id number] Location: [id number]/[place] [address]*_ Daily Note:Pt has been up on intervals. Observed sitting in the day areaand watching television and talking on the telephone and laying in hisbed. He is alert and oriented. General appearance is disheveled inhospital gowns and pants. Mood/affect is euthymic. Minimal interactionwith peers and interacts with staff to have needs met. Appetite isadequate. He ate dinner and snack. No groups attended. No acute distressor behavioral issues observed at this time. He voiced no delusions.Denies any audio/visual hallucinations and denies any suicidal/homicidalideation at this time. Will continue to monitor pt q 15 minutes onrounds for safety. Prn 50 mg trazodone given at 2046 for sleep.This note was completed by: Brandon Fletcher LPN [facility] PROGRESSon 03-10-2017 PROGRESS HNO ID: [id number] thor: Julianna Mei: (none)Author Type: PhysicianType: Progress NotesFiled: 03/10/2017 8:26 AMNote Text:PROGRESS NOTE BEHAVIORAL HEALTHSERVICE DATE: 03/10/2017SERVICE TIME: 10:10 AMThe Interdisciplinary team met and reviewed treatment goals and dischargeplanning.SUBJECTI VESeen in office, reasonable and in control. Seen with parents Abiola Mcmahon. They were concerned re dx, dual dx, and emphasized that pt needsserious inpt drug treatment. Pt accepted the challenge to completecontacting agenices, of which 3 seem to have beds: [facility]; [facility]; [facility]. Matty understands he needs initiatearrangements, though he tries to direct talk to his complaints of beinghere.No AVH, delusions or paranoia.Per nursing, no behavioral issues.OBJECTIVE I appreciate pharmacist eval of cost of rx. He has ZEROcopay for seroquel so money is not a reason for him not to take it.PHYSICAL EXAM: BP 103/71 Pulse 77 Temp 36.4 ?C (97.5 ?F) (Oral) Resp16 Ht 170.2 cm (5' 7) Wt 77.1 kg (170 lb) SpO2 98% BMI 26.63kg/q0XJLNXB STATUS EXAMINATION:Appearance: Appears stated age and In hospital gown, in office, withfamily.Behavior: Calmer, more organizedOrientation: Person, Place, Time and SituationSpeech/Language: The patient demonstrates appropriate tone, prosody,marin, phonetics, and syntaxMood/Affect: Calm, hostile at times. Controlling.Thought Form: CoherentThought Content: CoherentSuicidal Ideations: No threatHomicidal Ideations: No homicidal ideation, intent or plan.Insight: Less todayJudgment: FairMemory/Cognition: IntactPsychomotor: Psychomotor activity was normalNEW PROBLEMS ON UNIT SINCE LAST ENCOUNTER: NoneCurrent hospital medications:hydrOXYzine HCl 50 mg tab(s) (ATARAX) 50 mg ORAL q 6 H PRNFLUoxetine 20 mg cap(s) (PROzac) 20 mg ORAL DAILYQUEtiapine 200 mg tab(s) (SEROquel) 200 mg ORAL AT BEDTIMEhaloperidol 10 mg tab(s) (HALDOL) 10 mg ORAL q 4 H PRNhaloperidol lactate 10 mg injection (HALDOL) 10 mg INTRAMUSCULAR q 4 H PRNdiphenhydrAMINE 50 mg injection (BENADRYL) 50 mg INTRAMUSCULAR q 4 H PRNnicotine 21 mg/24 hr 1 Patch (NICODERM) 1 Patch TRANSDERMAL DAILYnicotine -- REMOVE patch OTHER DAILYnicotine - verify patch OTHER q [address] (DEPAKOTE) tab(s) 750 mg 750 mg ORAL BIDnicotine polacrilex 2 mg gum (NICORETTE) 2 mg ORAL q 2 H PRNtraZODone 50 mg tab(s) (DESYREL) 50 mg ORAL HS PRNacetaminophen 650 mg tab(s) (TYLENOL) 650 mg ORAL q 6 H PRNaluminum-magnesium hydroxide-simethicone 200-200-20 mg/5 mL 30 mL(MAALOX,MYLANTA,MAG-AL PLUS) 30 mL ORAL q 4 H PRNmagnesium hydroxide 400 mg/5 mL 30 mL (MOM) 30 mL ORAL DAILY PRNDATA:Diagnostic tests reviewed for today's visit:Results for MATTY WHITLOCK ( ) as of 03/04/2017 09:44 Ref. Range 03/04/2017 06:47Valproic Acid Latest Ref Range: 50 - 100 ug/mL 83.8ASSESSMENT/PLANDIAGNOS IS:1) Schizoaffective d/oChemical dependencyRISK ASSESSMENT:Suicide: lowHomicide: lowDeliberate Self-Harm: lowAggression: lowImminent Physical Self Impairment: lowINFORMED CONSENT: Yes, completed with the Patient. Discussed the risks,benefits and alternatives to the medication(s) recommended. Consent wasgiven.INTERVENTION:Biol ogical: continue current. Depakote, prozac, seroquel. vpa level Results for MATTY WHITLOCK ( ) as of 03/09/2017 08:56 Ref. Range 03/09/2017 06:04Valproic Acid Latest Ref Range: 50 - 100 ug/mL 93.8Psychological: Encourage group and milieu despite his refusal.Social: discharge planning - per SW. Need develop structured dc plan incsobriety. Suicide risk.Family has requested a meeting to consider disposition.DISCHARGE PLANNING: Discharge when there is a dc plan. Mid-week probablySIGNATURE: Julianna Escalera MD PATIENT NAME: Matty WhitlockDATE: March 10, 2017 : 10:10 AM [facility] ALLIED HEALTHon 03-09-2017 Creatinine HNO ID: [id number] thor: Sr. Denney ([place]-) FAUSTINO Del Rioervice: Recreational TherapyAuthor Type: TherapistType: Allied HealthFiled: 03/09/2017 1:14 PMNote Text:PROGRESS NOTE BEHAVIORAL HEALTHTopic of Note: Three Day NoteSERVICE DATE: 03/09/2017SERVICE TIME: 1:05pmPatient continues to refuse all structured RT groups. When approached, heis found in bed, sleeping or giving no verbal response to being invited toattend. He shows no interest at all in groups. Groups will continue to beencouraged in order to promote healthy coping and social skills.SIGNATURE: Sr. Jumana Del Rio [facility] PATIENT NAME: Matty EliasTE: March 09, 2017 : 1:06 PM PAGER/CONTACT #: [facility] CASE MANAGEMon 03-09-2017 CASE MANAGEM HNO ID: [id number] thor: Regina Akers) JunService: Behavioral HealthAuthor Type: Social WorkerType: Care Mgt Progress NoteFiled: 03/09/2017 3:15 PMNote Text:BEHAVIORAL HEALTH SOCIAL WORKPROGRESS NOTESERVICE DATE: 03/09/2017SERVICE TIME: 11:00 amSat with patient while he called treatment facilities.SERAFIN faxed a referral to [facility] (fax: [phone] (Fred)). . They have a 2-4 week waiting list. ELLIE signed.[facility] ([phone]). Patient is not very interestedin this because it is a very restrictive, 18-month program.[facility] ([phone]). Patient was told to callJulianna Almanzar (coordinator) around mid-afternoon. They have open beds.Patient called back at 3 pm and was told to call back at 4:30 pm. Perpatient, he was told that they would likely have a bed for him tomorrowbut he will know for sure when he calls back at 4:30.Call other various treatment centers but patient was either uninterestedin the program or the agencies could not be reached.SIGNATURE: Susana HARRIS PATIENT NAME: Matty EliasTE: March 09, 2017 : 10:59 AMSupervising Publishing Editor AttestationI have reviewed the above documentation.I agree with the findings and plan as documented.SIGNATURE: YOSEF Forte PATIENT NAME: Matty EliasTE: March 09, 2017 : 3:14 PM [facility] CASE MANAGEM HNO ID: [id number] thor: Regina Akers) JunService: Behavioral HealthAuthor Type: Social WorkerType: Care Mgt Progress NoteFiled: 03/09/2017 8:09 AMNote Text:BEHAVIORAL HEALTH SOCIAL WORKPROGRESS NOTESERVICE DATE: 03/09/2017SERVICE TIME: 8:02 amVoice mail from patient's mother requesting family meeting with Diane and SERAFIN. Mother wants patient hospitalized until he is acceptedinto a CD rehab program. She is still concerned that he will do somethingto harm himself or some one else. Feels he needs a long admission as lasttime she stated he was hospitalized for 21 days. Patient has been given alist of programs to contact for help but has not made attempts to findhelp. He remains seclusive. SW will continue to follow.SIGNATURE: ZuleymaYOSEF Anand PATIENT NAME: Matty WhitlockDATE: March 09, 2017 : 8:02 AM [facility] NURSING PROGon 03-09-2017 NURSING PROG HNO ID: [id number] thor: Jv (Rn) Boyd Clarkice: (none)Author Type: Registered NurseType: Nursing Progress NoteFiled: 03/09/2017 6:27 AMNote Text: Nursing Progress NotePatient Name: Matty WhitlockN: [id number] Location: [id number][id number]*_ Daily Note:0000 Patient report received from previous shift. Patient resting in bedwith eyes closed. Safety checks per unit protocol. Will continue tomonitor.0600 Patient slept throughout shift without incident or complaint.Continuing to monitor.This note was completed by: Jv Clark RN [facility] NURSING PROG HNO ID: [id number] thor: Koko (Rn) Boyd Jeffriesice: (none)Author Type: Registered NurseType: Nursing Progress NoteFiled: 03/09/2017 12:23 PMNote Text: Nursing Progress NotePatient Name: Matty WhitlockN: [id number] Location: [id number]/[facility]1-015*_ Patient out of room for morning meal, remains seclusive to self.Compliant with morning medications, patient c/o anxious and stress.Reviewed non pharmacological methods of coping with stress and anxiety.Medicated patient with Atarax 50 mg po at 0930 with good effect. Patientretreated back to his room after breakfast and is napping at this time.PRN nicotine gum per patient request.No acute distress or behavioralissues observed at this time. Will continue to monitor pt q 15 minutes onrounds for safety.Patient requesting Benedryl for runny nose. No drainage observed at nose. Patient expresses somatic delusions when he reports Once both my eyescame out of my sockets. The ED popped them back in. Also reports hishead shrunk down and then got better. I looked into the mirror once andmy eyes were red and I was possessed by a demon. Patient also reports hehad the stigmata on both his palms and his feet.Religiously preoccupied, patient does not exhibit a runny nose. He ispleasant in 1:1 interaction. Will continue to monitor frequently per unitprotocol. PRN nicotine gum per patient request.This note was completed by: Koko lElis, RN [facility] NURSING PROG HNO ID: [id number] thor: Khanh Mendoza ([facility]) Rylee Ordoñez: (none)Author Type: Behavorial Health AssistantType: Nursing Progress NoteFiled: 03/09/2017 2:04 PMNote Text: Nursing Progress NotePatient Name: Matty WhitlockMRN: [id number] Location: [id number]/[place] [address]*_ Daily Note:0904 Pt was in room upon start of shift ,dressed in hospital attire . Hewas out for his AM meal consumed 100% . Pt was anxious in AM waiting forhis meds ,non social with peers ,withdrawn ,preocuppied .1333 Pt was in consult office trying to set up rehab . Pt has been nonsocial with peers , flat ,withdrawn . seclusive to his room ,med complaint,consumed 100% of his lunch. Pt remains in hospital gown disheveled ,unkempt ,refused all AD:L's.1403 Pt remains resting in his room refusing all structured groups,encouraged to go to groups , he denies any new pain ,denies SI,HI,AVhallucinations , remains on Q15's. Will continue to monitor .This note was completed by: Khanh Ordoñez [facility] PROGRESSon 03-09-2017 PROGRESS HNO ID: [id number] thor: Julianna Mei: (none)Author Type: PhysicianType: Progress NotesFiled: 03/09/2017 8:56 AMNote Text:PROGRESS NOTE BEHAVIORAL HEALTHSERVICE DATE: 03/09/2017SERVICE TIME: 10:10 AMThe Interdisciplinary team met and reviewed treatment goals and dischargeplanning.SUBJECTI VESeen in office, reasonable and in control. Proposes going to the [facility] in [place], a skilled nursing. SW thought he had been banned from there; ptagrees he had been 'kicked out'. Pt says he does not need ativan, he sayshe can manage without it. Agrees to let us help him make calls for somekind of disposition.No AVH, delusions or paranoia.Per nursing, no behavioral issues.OBJECTIVE I appreciate pharmacist eval of cost of rx. He has ZEROcopay for seroquel so money is not a reason for him not to take it.PHYSICAL EXAM: BP 98/60 Pulse 63 Temp 36.1 ?C (97 ?F) (Oral) Resp 16 Ht 170.2 cm (5' 7) Wt 77.1 kg (170 lb) SpO2 98% BMI 26.63 kg/r8KCRTWN STATUS EXAMINATION:Appearance: Appears stated age and In hospital gown, in office.Behavior: Calmer, more organizedOrientation: Person, Place, Time and SituationSpeech/Language: The patient demonstrates appropriate tone, prosody,marin, phonetics, and syntaxMood/Affect: Irritable, impulsive, hostile at times. Controlling. Ptclaims his anxiety is intolerable.Thought Form: CoherentThought Content: CoherentSuicidal Ideations: No threatHomicidal Ideations: No homicidal ideation, intent or plan.Insight: Less todayJudgment: FairMemory/Cognition: IntactPsychomotor: Psychomotor activity was normalNEW PROBLEMS ON UNIT SINCE LAST ENCOUNTER: NoneCurrent hospital medications:FLUoxetine 20 mg cap(s) (PROzac) 20 mg ORAL DAILYQUEtiapine 200 mg tab(s) (SEROquel) 200 mg ORAL AT BEDTIMEhaloperidol 10 mg tab(s) (HALDOL) 10 mg ORAL q 4 H PRNhaloperidol lactate 10 mg injection (HALDOL) 10 mg INTRAMUSCULAR q 4 H PRNdiphenhydrAMINE 50 mg injection (BENADRYL) 50 mg INTRAMUSCULAR q 4 H PRNnicotine 21 mg/24 hr 1 Patch (NICODERM) 1 Patch TRANSDERMAL DAILYnicotine -- REMOVE patch OTHER DAILYnicotine - verify patch OTHER q [address] (DEPAKOTE) tab(s) 750 mg 750 mg ORAL BIDnicotine polacrilex 2 mg gum (NICORETTE) 2 mg ORAL q 2 H PRNLORazepam 2 mg (ATIVAN) 2 mg ORAL q 4 H PRNLORazepam 2 mg injection (ATIVAN) 2 mg INTRAMUSCULAR q 4 H PRNtraZODone 50 mg tab(s) (DESYREL) 50 mg ORAL HS PRNacetaminophen 650 mg tab(s) (TYLENOL) 650 mg ORAL q 6 H PRNaluminum-magnesium hydroxide-simethicone 200-200-20 mg/5 mL 30 mL(MAALOX,MYLANTA,MAG-AL PLUS) 30 mL ORAL q 4 H PRNmagnesium hydroxide 400 mg/5 mL 30 mL (MOM) 30 mL ORAL DAILY PRNDATA:Diagnostic tests reviewed for today's visit:Results for MATTY WHITLOCK ( ) as of 03/04/2017 09:44 Ref. Range 03/04/2017 06:47Valproic Acid Latest Ref Range: 50 - 100 ug/mL 83.8ASSESSMENT/PLANDIAGNOS IS:1) Schizoaffective d/oChemical dependencyRISK ASSESSMENT:Suicide: lowHomicide: lowDeliberate Self-Harm: lowAggression: lowImminent Physical Self Impairment: lowINFORMED CONSENT: Yes, completed with the Patient. Discussed the risks,benefits and alternatives to the medication(s) recommended. Consent wasgiven.INTERVENTION:Biol ogical: continue current. Depakote, prozac, seroquel. vpa level Results for MATTY WHITLOCK ( ) as of 03/09/2017 08:56 Ref. Range 03/09/2017 06:04Valproic Acid Latest Ref Range: 50 - 100 ug/mL 93.8Psychological: Encourage group and milieu despite his refusal.Social: discharge planning - per SW. Need develop structured dc plan incsobriety. Suicide risk.Family has requested a meeting to consider disposition.DISCHARGE PLANNING: Discharge when there is a dc plan. Mid-week probablySIGNATURE: Julianna Escalera MD PATIENT NAME: Matty WhitlockDATE: March 09, 2017 : 10:10 AM [facility] Valproic Acidon 03-09-2017 Valproic Acid 93.8 ug/mL Normal 50-100 [facility] Comment on above: Result Comment: Refe rence ranges and high/low indicator flags are provided as general guidelines only. The treating physician must determine appropriate target levels/dosing based on the specific clinical situation. Performed By: #### L IPB, HBA1C ####[facility] [address] [place], [place] [id number] NURSING PROGon 03-08-2017 NURSING PROG HNO ID: [id number] thor: Jeanne Manuel (Rn) SHIREEN Pattenervice: (none)Author Type: Registered NurseType: Nursing Progress NoteFiled: 03/08/2017 9:24 PMNote Text: Nursing Progress NotePatient Name: Matty WhitlockMRN: [id number] Location: [id number]/[place] [address]_ Daily Note:ssumed care of pt, pt walking back and forth to room. Pleasantasking about snack. Pt had conversation with RN regarding reason for beingin hospital. Pt denies SI. Pt sitting on table having evening snack.2120 pt in common area, Hs meds tolerated. Prn trazodone given per ptsrequest.This note was completed by:Jeanne Patten, RN [facility] NURSING PROG O ID: [id number] thor: Anna Sams Lpn: (none)Author Type: LICENSED NURSEType: Nursing Progress NoteFiled: 03/08/2017 6:52 PMNote Text: Nursing Progress NotePatient Name: Matty WhitlockMER[facility]: [id number] Location: [id number]/[facility]-015*_ Daily Note: Assessed as charted, seclusive to room, only in common areafor meals and medicines, no social interaction with peers, not attendinggroups, denies thoughts of harming self or others, denies andhallucinations, cooperative with staff, compliant with medicines, PRNativan providing relief of anxiousness, tylenol providing relief ofgeneralized pain, nicotine gum helping with cigarette cravings, goodappetite.This note was completed by: Leonel Magaña LPN [facility] NURSING PROG O ID: [id number] thor: Kamilla DodgeVibha Velásquez: (none)Author Type: Behavioral Health TechType: Nursing Progress NoteFiled: 03/08/2017 6:08 AMNote Text: Nursing Progress NotePatient Name: [facility]: [id number] Location: [id number]/[place] [address]*_ Daily Note:Report from previous shift received about the patient. Patient in bed andappeared to rest comfortably throughout the night with no S/S of pain ordistress. Q 15 minute checks observed and maintained for safety. Willcontinue to monitor.This note was completed by: Kamilla [facility] PROGRESSon 03-08-2017 PROGRESS HNO ID: [id number] thor: Julianna EscaleraSersushile: (none)Author Type: PhysicianType: Progress NotesFiled: 03/08/2017 8:42 AMNote Text:PROGRESS NOTE BEHAVIORAL HEALTHSERVICE DATE: 03/08/2017SERVICE TIME: 10:10 AMThe Interdisciplinary team met and reviewed treatment goals and dischargeplanning.SUBJECTI VESeen in office, reasonable and in control. Says he wants to call hisparents and find out what is happening with his things and his cat, andwants to work out Dc plan so can take care of his life situations outthere. Smiles a little, no pressure for once.No AVH, delusions or paranoia.Per nursing, no behavioral issues.OBJECTIVE I appreciate pharmacist eval of cost of rx. He has ZEROcopay for seroquel so money is not a reason for him not to take it.PHYSICAL EXAM: BP 109/52 Pulse 80 Temp 36.7 ?C (98 ?F) (Oral) Resp17 Ht 170.2 cm (5' 7) Wt 77.1 kg (170 lb) SpO2 98% BMI 26.63kg/l9CZBKNM STATUS EXAMINATION:Appearance: Appears stated age and In hospital gown, in office.Behavior: Calmer, more organizedOrientation: Person, Place, Time and SituationSpeech/Language: The patient demonstrates appropriate tone, prosody,marin, phonetics, and syntaxMood/Affect: reflectiveThought Form: CoherentThought Content: CoherentSuicidal Ideations: No threatHomicidal Ideations: No homicidal ideation, intent or plan.Insight: better. Acknowledges relapse and non-adherenceJudgment: FairMemory/Cognition: IntactPsychomotor: Psychomotor activity was normalNEW PROBLEMS ON UNIT SINCE LAST ENCOUNTER: NoneCurrent hospital medications:FLUoxetine 20 mg cap(s) (PROzac) 20 mg ORAL DAILYQUEtiapine 200 mg tab(s) (SEROquel) 200 mg ORAL AT BEDTIMEhaloperidol 10 mg tab(s) (HALDOL) 10 mg ORAL q 4 H PRNhaloperidol lactate 10 mg injection (HALDOL) 10 mg INTRAMUSCULAR q 4 H PRNdiphenhydrAMINE 50 mg injection (BENADRYL) 50 mg INTRAMUSCULAR q 4 H PRNnicotine 21 mg/24 hr 1 Patch (NICODERM) 1 Patch TRANSDERMAL DAILYnicotine -- REMOVE patch OTHER DAILYnicotine - verify patch OTHER q [address] (DEPAKOTE) tab(s) 750 mg 750 mg ORAL BIDnicotine polacrilex 2 mg gum (NICORETTE) 2 mg ORAL q 2 H PRNLORazepam 2 mg (ATIVAN) 2 mg ORAL q 4 H PRNLORazepam 2 mg injection (ATIVAN) 2 mg INTRAMUSCULAR q 4 H PRNtraZODone 50 mg tab(s) (DESYREL) 50 mg ORAL HS PRNacetaminophen 650 mg tab(s) (TYLENOL) 650 mg ORAL q 6 H PRNaluminum-magnesium hydroxide-simethicone 200-200-20 mg/5 mL 30 mL(MAALOX,MYLANTA,MAG-AL PLUS) 30 mL ORAL q 4 H PRNmagnesium hydroxide 400 mg/5 mL 30 mL (MOM) 30 mL ORAL DAILY PRNDATA:Diagnostic tests reviewed for today's visit:Results for MATTY WHITLOCK ( ) as of 03/04/2017 09:44 Ref. Range 03/04/2017 06:47Valproic Acid Latest Ref Range: 50 - 100 ug/mL 83.8ASSESSMENT/PLANDIAGNOS IS:1) Schizoaffective d/oChemical dependencyRISK ASSESSMENT:Suicide: lowHomicide: lowDeliberate Self-Harm: lowAggression: lowImminent Physical Self Impairment: lowINFORMED CONSENT: Yes, completed with the Patient. Discussed the risks,benefits and alternatives to the medication(s) recommended. Consent wasgiven.INTERVENTION:Biol ogical: continue current. Depakote, prozac, seroquel. vpa level tomorrow thursdayPsychological: Encourage group and milieu despite his refusal.Social: discharge planning - per SW. Need develop structured dc plan incsobriety. Suicide risk.DISCHARGE PLANNING: Discharge when there is a dc plan. Mid-week probablySIGNATURE: Julianna Escalera MD PATIENT NAME: Matty EliasTE: March 08, 2017 : 10:10 AM [facility] NURSING PROGon 03-07-2017 NURSING PROG HNO ID: [id number] thor: Luciana (Rn) Chloe, RNService: NursingAuthor Type: Registered NurseType: Nursing Progress NoteFiled: 03/07/2017 4:11 PMNote Text: Nursing Progress NotePatient Name: Matty RainN: [id number] Location: [place] [address]*_ 1600- Patient approached nurses station complaining of anxiety. Whenoffered medication patient asked specifically for haldol with the ativansince it works better... In a shot... When patient was told he willreceive Ativan PO he responded, I guess no shots for me... in an annoyedmanner. Compliant with med.This note was completed by: Luciana Corona, RN [facility] NURSING PROG HNO ID: [id number] thor: Khanh Mendoza ([facility]) Rylee Ordoñez: (none)Author Type: Behavorial Health AssistantType: Nursing Progress NoteFiled: 03/07/2017 2:42 PMNote Text: Nursing Progress NotePatient Name: Matty RainN: [id number] Location: [id number]/[place] [address]*_ Daily Note:1241 Pt was in room in AM @ start of shift , cooperative with vitals, medcomplaint , consumed 100% of both meals. Pt mother was in too roller picker allhis valuables from the safe , they were released to her from security (David).Pt has spent most of the morning in his room resting (complaing ofbeing anxious (nurse notified ) He is non social with peers , flat,disheveled ,unkempt , guarded ,appears paranoid . Pt has not wanted toattend any structured groups ,no interactions with peers , remains incontrol .1438 Pt remains in his room resting , refusing afternoon group . He wasout for his afternoon meal ,consumed 100% , Matty is still refusing allstructured groups ,(claims he is anxious) He denies any new pain , deniesSI,HI,AV hallucinations , encouraged to go to groups , remains on Q15;s.Will continue to monitor .This note was completed by: Khanh Ordoñez [facility] NURSING PROG HNO ID: [id number] thor: Vanessa Roy (Rn) , SHIREENervice: NursingAuthor Type: Registered NurseType: Nursing Progress NoteFiled: 03/07/2017 1:55 PMNote Text: Nursing Progress NotePatient Name: Matty WhitlockMRN: [id number] Location: [place] [address]/[place] [address]*_ Daily Note: Teamed with Mental Health Worker. Patient denied current SI/HIand denied current AH/VH. He denied pain. Medication education completedand pt was med compliant. Disheveled. Withdrawn. Flat affect. Depressed.He has spent most of shift resting in his room. At 1014 pt receivedAtivan 2 mg po for anxiety, saying I feel terrified ... [of what] I don'tknow. I feel like everything is coming down on me.At 1035, patient's mother Imtiaz called and requested that patient'ssecurity items be requested now so that she can take them home. She wasadvised that she would need to take all items with security. Patientconfirmed that his security items could be released to her. Pt signedrelease and security items were released to his mother.This note was completed by: Vanessa Townsend RN [facility] PROGRESSon 03-07-2017 PROGRESS HNO ID: [id number] thor: Julianna EscaleraService: (none)Author Type: PhysicianType: Progress NotesFiled: 03/07/2017 10:15 AMNote Text:PROGRESS NOTE BEHAVIORAL HEALTHSERVICE DATE: 03/07/2017SERVICE TIME: 10:10 AMThe Interdisciplinary team met and reviewed treatment goals and dischargeplanning.SUBJECTI VESeen in own room, alone. He seems depressed, sad, worrying about what hewill do. Tends to focus on failings of others eg parents to help him, butrealizes he has to be responsible for himself now as an adult.Agrees that we are moving to developing a dc plan.No AVH, delusions or paranoia.Per nursing, no behavioral issues.Mother has reported to that pt seems dangerous to himself and possiblyto others. She is v worried he will become violent.OBJECTIVE I appreciate pharmacist eval of cost of rx. He has ZEROcopay for seroquel so money is not a reason for him not to take it.PHYSICAL EXAM: BP 109/74 Pulse 111 Temp 37.1 ?C (98.8 ?F) (Oral) Resp 16 Ht 170.2 cm (5' 7) Wt 77.1 kg (170 lb) SpO2 98% BMI 26.63kg/s1HEDBJZ STATUS EXAMINATION:Appearance: Appears stated age and In hospital gown, in his quiet room onshort de [place] santos.Behavior: Calmer, more organizedOrientation: Person, Place, Time and SituationSpeech/Language: The patient demonstrates appropriate tone, prosody,marin, phonetics, and syntaxMood/Affect: reflectiveThought Form: CoherentThought Content: CoherentSuicidal Ideations: Threats of suicide as soon as he leaves.Homicidal Ideations: No homicidal ideation, intent or plan.Insight: better. Acknowledges relapse and non-adherenceJudgment: FairMemory/Cognition: IntactPsychomotor: Psychomotor activity was normalNEW PROBLEMS ON UNIT SINCE LAST ENCOUNTER: NoneCurrent hospital medications:FLUoxetine 20 mg cap(s) (PROzac) 20 mg ORAL DAILYQUEtiapine 200 mg tab(s) (SEROquel) 200 mg ORAL AT BEDTIMEhaloperidol 10 mg tab(s) (HALDOL) 10 mg ORAL q 4 H PRNhaloperidol lactate 10 mg injection (HALDOL) 10 mg INTRAMUSCULAR q 4 H PRNdiphenhydrAMINE 50 mg injection (BENADRYL) 50 mg INTRAMUSCULAR q 4 H PRNnicotine 21 mg/24 hr 1 Patch (NICODERM) 1 Patch TRANSDERMAL DAILYnicotine -- REMOVE patch OTHER DAILYnicotine - verify patch OTHER q [address] (DEPAKOTE) tab(s) 750 mg 750 mg ORAL BIDnicotine polacrilex 2 mg gum (NICORETTE) 2 mg ORAL q 2 H PRNLORazepam 2 mg (ATIVAN) 2 mg ORAL q 4 H PRNLORazepam 2 mg injection (ATIVAN) 2 mg INTRAMUSCULAR q 4 H PRNtraZODone 50 mg tab(s) (DESYREL) 50 mg ORAL HS PRNacetaminophen 650 mg tab(s) (TYLENOL) 650 mg ORAL q 6 H PRNaluminum-magnesium hydroxide-simethicone 200-200-20 mg/5 mL 30 mL(MAALOX,MYLANTA,MAG-AL PLUS) 30 mL ORAL q 4 H PRNmagnesium hydroxide 400 mg/5 mL 30 mL (MOM) 30 mL ORAL DAILY PRNDATA:Diagnostic tests reviewed for today's visit:Results for MATTY WHITLOCK ( ) as of 03/04/2017 09:44 Ref. Range 03/04/2017 06:47Valproic Acid Latest Ref Range: 50 - 100 ug/mL 83.8ASSESSMENT/PLANDIAGNOS IS:1) Schizoaffective d/oChemical dependencyRISK ASSESSMENT:Suicide: lowHomicide: lowDeliberate Self-Harm: lowAggression: lowImminent Physical Self Impairment: lowINFORMED CONSENT: Yes, completed with the Patient. Discussed the risks,benefits and alternatives to the medication(s) recommended. Consent wasgiven.INTERVENTION:Biol ogical: continue current. Depakote, prozac, seroquel. Reduce prn asneeded by his manipulating for benzo.Psychological: Encourage group and milieu despite his refusal.Social: discharge planning - per . Need develop structured dc plan incsobriety. Suicide risk.DISCHARGE PLANNING: Discharge when there is a dc plan.SIGNATURE: Julianna Escalera MD PATIENT NAME: Matty EliasTE: March 07, 2017 : 10:10 AM [facility] ALLIED HEALTHon 03-06-2017 Creatinine HNO ID: [id number] thor: ANATOLY Longoriaervice: Recreational TherapyAuthor Type: TherapistType: Allied HealthFiled: 03/06/2017 3:38 PMNote Text:PROGRESS NOTE BEHAVIORAL HEALTHTopic of Note: Three Day NoteSERVICE DATE: 03/06/2017SERVICE TIME:335 the past couple days patient has not attended any structured groups. Pthas been seclusive to self and his room. Client Services Analyst has attempted to talkwith patient 1;1 today but patient with a flat affect appears depressedwalked away from newswriter. Pt remains in Hospital attire. Will continue toencourage 1;1 socialization and group participationSIGNATURE: ADRIANO Longoria PATIENT NAME: Matty EliasTE: March 06, 2017 : 3:35 PM PAGER/CONTACT #: [facility] CASE MANAGEMon 03-06-2017 CASE MANAGEM HNO ID: [id number] thor: Regina Plata () JunService: Behavioral HealthAuthor Type: Social WorkerType: Care Mgt Progress NoteFiled: 03/06/2017 2:02 PMNote Text:BEHAVIORAL HEALTH SOCIAL WORKPROGRESS NOTESERVICE DATE: 03/06/2017SERVICE TIME: 1:54 pmFamily meeting with patient and his father attempting to discuss tentativedischarge plan. Father informed the patient that he will not longer haveaccess to his apartment as of Thursday. His parents have been attempting toclean it up. Per father the place was in deplorable condition. Father alsoinformed patient that attempts are being made to find a good home forpatient's cat. Patient was unable to fully participate in the interviewdue to being sedated with PRN medications. Patient appears to be seekingprn meds in an atemptt to avoid dealing with his situation. He wasnodding off during the meeting. He gave lip service to a plan ofcontacting treatment programs stating he could not make calls today butmaybe tomorrow or the next. He stated he really did not want to liveanymore because he had too much to deal with. He ended that interview bythreatening to kill someone if his cat was gone but gave no specifics.child and family services worker did leave a list of treatment programs to contact withpatient in his room.SIGNATURE: YOSEF Forte PATIENT NAME: Matty WhitlockDATE: March 06, 2017 : 1:55 PM [facility] NURSING PROGon 03-06-2017 NURSING PROG HNO ID: [id number] thor: Luciana (Rn) Boyd Rojasice: Behavioral HealthAuthor Type: Registered NurseType: Nursing Progress NoteFiled: 03/07/2017 5:30 AMNote Text: Nursing Progress NotePatient Name: Matty WhitlockMRN: [id number] Location: [place] [address] [address]*_ Daily Note:2100Report received from previous shift. Patient in bed resting, disheveledand withdrawn, denies suicidal thoughts or hallucinations. Patient up forsnack time, medication compliant. In control. Will continue to monitor.05:29Patient slept 7 hours, no prn medication needed during the night, incontrol.This note was completed by: Luciana Rojas RN [facility] NURSING PROG HNO ID: [id number] thor: Devin DodgeRylee Luke: Behavioral HealthAuthor Type: Behavorial Health AssistantType: Nursing Progress NoteFiled: 03/06/2017 8:32 PMNote Text: Nursing Progress NotePatient Name: Matty RainN: [id number] Location: [id number]/[place] [address]*_ Daily Note:2026 Pt has been seclusive to room and self coming out for dinner only thequickly back to room where he slept for the most of shift. Cooperative andpresented no behavioral problem. Mood and affect is depressed and flat.Conversation is clear but superficial and blunt. He denies S/HI and A/VH.Disheveled wearing hospital gowns.This note was completed by: Devin Mckay [facility] NURSING PROG HNO ID: [id number] thor: LAURIE Diez Lpnervice: NursingAuthor Type: LICENSED NURSEType: Nursing Progress NoteFiled: 03/06/2017 3:30 PMNote Text: Nursing Progress NotePatient Name: Matty RainN: [id number] Location: PI-QKL4-7132/[place] [address]*_ Daily Note:Patient is alert and oriented X3. Mood and affect are severely depressed. Patient states that he is hopeless and helpless. He makes threats ofsuicide if we don't medicate and sedate him. He was given IM PRN Haldoland Ativan at his request and per Dr. Stone. He states that he will justloose it and anyone in his path will get hurt and ultimately he will alsodie. He denies any A/V hallucinations.. He has been mostly seclusive toroom. Comes out for meals. Appetite is adequate. Will continue tomonitor on Q 15 minute safety checks.This note was completed by: Alejandra Morales LPN [facility] NURSING PROG HNO ID: [id number] thor: LAURIE Diez Lpnervice: NursingAuthor Type: LICENSED NURSEType: Nursing Progress NoteFiled: 03/06/2017 2:26 PMNote Text: Nursing Progress NotePatient Name: Matty WhitlockMRN: [id number] Location: [place] [address]*_ Daily Note:pThis note was completed by: Alejandra Morales LPN [facility] NUTRITIONon 03-06-2017 NUTRITION HNO ID: [id number] thor: Roly Zelayaervice: Nutrition TherapyAuthor Type: Registered DietitianType: NutritionFiled: 03/06/2017 6:14 AMNote Text:NUTRITION THERAPY SCREENING NOTESERVICE DATE: 03/06/2017SERVICE TIME: 6:10 AMNUTRITION CARE PLANPatient's weight is stable and nutritional intake is adequate. Patient isnot at risk for malnutrition at this time.Intervention:Regular dietDischarge Nutrition Recommendations:Diet: RegularScreen per LOS policy. Pt eating well per log sawyer. Continue tomonitor and intervene per LOS policy or upon consultation.Present Diet Order: RegularAdmission Weight: 77.1 kg (170 lb)Current Weight: 77.1 kg (170 lb)Body mass index is 26.63 kg/(m2). class 1 obesityWeight has not changed.MNT Billing Type: Initial Assess/15 min 1 unitSIGNATURE: Roly Love RD PATIENT NAME: Matty WhitlockDATE: March 06, 2017 : 6:13 AM PAGER: [phone] [facility] PLAN OF CAREon 03-06-2017 PLAN OF CARE HNO ID: [id number] thor: Alesia Charles (Pharmacist)Service: PharmacyAuthor Type: PharmacistType: Plan of CareFiled: 03/06/2017 9:15 AMNote Text:PHARMACY CURRENT MEDICATION ASSESSMENTPATIENT NAME: Matty WhitlockMRN: [id number] of SERVICE: 03/06/17TIME of SERVICE: 9:13 AMCurrent MedicationsCurrent hospital medications:FLUoxetine 20 mg cap(s) (PROzac) 20 mg ORAL DAILYQUEtiapine 200 mg tab(s) (SEROquel) 200 mg ORAL AT BEDTIMEhaloperidol 10 mg tab(s) (HALDOL) 10 mg ORAL q 4 H PRNhaloperidol lactate 10 mg injection (HALDOL) 10 mg INTRAMUSCULAR q 4 H PRNdiphenhydrAMINE 50 mg injection (BENADRYL) 50 mg INTRAMUSCULAR q 4 H PRNnicotine 21 mg/24 hr 1 Patch (NICODERM) 1 Patch TRANSDERMAL DAILYnicotine -- REMOVE patch OTHER DAILYnicotine - verify patch OTHER q [address] (DEPAKOTE) tab(s) 750 mg 750 mg ORAL BIDnicotine polacrilex 2 mg gum (NICORETTE) 2 mg ORAL q 2 H PRNLORazepam 2 mg (ATIVAN) 2 mg ORAL q 4 H PRNLORazepam 2 mg injection (ATIVAN) 2 mg INTRAMUSCULAR q 4 H PRNtraZODone 50 mg tab(s) (DESYREL) 50 mg ORAL HS PRNacetaminophen 650 mg tab(s) (TYLENOL) 650 mg ORAL q 6 H PRNaluminum-magnesium hydroxide-simethicone 200-200-20 mg/5 mL 30 mL(MAALOX,MYLANTA,MAG-AL PLUS) 30 mL ORAL q 4 H PRNmagnesium hydroxide 400 mg/5 mL 30 mL (MOM) 30 mL ORAL DAILY PRNPatient states that he previously was not able to fill his quetiapine dueto a large copay and asked if this newswriter could look into it. Verifiedwith insurance that the patient has a 0$ copay for this medication. Thereshould not be any issues upon discharge.SIGNATURE: ALESIA CHARLES PHARMACISTExt: [phone]: March 06, 2017TIME: 9:12 AM [facility] PROGRESSon 03-06-2017 PROGRESS HNO ID: [id number] thor: Julianna LaliService: (none)Author Type: PhysicianType: Progress NotesFiled: 03/06/2017 8:31 AMNote Text:PROGRESS NOTE BEHAVIORAL HEALTHSERVICE DATE: 03/06/2017SERVICE TIME: 10:10 AMThe Interdisciplinary team met and reviewed treatment goals and dischargeplanning.SUBJECTI NINAeen in office with sw. Pt is provocative and makes dire threats ofwelcoming . He perseverates on not caring about his body, he feelsin good contact with god. Pt persists in demanding dc but has norealistic plans.No AVH, delusions or paranoia.Per nursing, no behavioral issues.Mother has reported to sw that pt seems dangerous to himself and possiblyto others. She is v worried he will become violent.OBJECTIVEPHYSICAL EXAM: BP 112/75 Pulse 93 Temp 36.7 ?C (98.1 ?F) (Oral) Resp16 Ht 170.2 cm (5' 7) Wt 77.1 kg (170 lb) SpO2 98% BMI 26.63kg/v4YVSVCS STATUS EXAMINATION:Appearance: Appears stated age and In hospital gown, now with glassesBehavior: Calmer, more organizedOrientation: Person, Place, Time and SituationSpeech/Language: The patient demonstrates appropriate tone, prosody,marin, phonetics, and syntaxMood/Affect: irritableThought Form: CoherentThought Content: CoherentSuicidal Ideations: Threats of suicide as soon as he leaves.Homicidal Ideations: No homicidal ideation, intent or plan.Insight: better. Acknowledges relapse and non-adherenceJudgment: FairMemory/Cognition: IntactPsychomotor: Psychomotor activity was normalNEW PROBLEMS ON UNIT SINCE LAST ENCOUNTER: NoneCurrent hospital medications:FLUoxetine 20 mg cap(s) (PROzac) 20 mg ORAL DAILYQUEtiapine 200 mg tab(s) (SEROquel) 200 mg ORAL AT BEDTIMEhaloperidol 10 mg tab(s) (HALDOL) 10 mg ORAL q 4 H PRNhaloperidol lactate 10 mg injection (HALDOL) 10 mg INTRAMUSCULAR q 4 H PRNdiphenhydrAMINE 50 mg injection (BENADRYL) 50 mg INTRAMUSCULAR q 4 H PRNnicotine 21 mg/24 hr 1 Patch (NICODERM) 1 Patch TRANSDERMAL DAILYnicotine -- REMOVE patch OTHER DAILYnicotine - verify patch OTHER q [address] (DEPAKOTE) tab(s) 750 mg 750 mg ORAL BIDnicotine polacrilex 2 mg gum (NICORETTE) 2 mg ORAL q 2 H PRNLORazepam 2 mg (ATIVAN) 2 mg ORAL q 4 H PRNLORazepam 2 mg injection (ATIVAN) 2 mg INTRAMUSCULAR q 4 H PRNtraZODone 50 mg tab(s) (DESYREL) 50 mg ORAL HS PRNacetaminophen 650 mg tab(s) (TYLENOL) 650 mg ORAL q 6 H PRNaluminum-magnesium hydroxide-simethicone 200-200-20 mg/5 mL 30 mL(MAALOX,MYLANTA,MAG-AL PLUS) 30 mL ORAL q 4 H PRNmagnesium hydroxide 400 mg/5 mL 30 mL (MOM) 30 mL ORAL DAILY PRNDATA:Diagnostic tests reviewed for today's visit:Results for MATTY WHITLOCK ( ) as of 03/04/2017 09:44 Ref. Range 03/04/2017 06:47Valproic Acid Latest Ref Range: 50 - 100 ug/mL 83.8ASSESSMENT/PLANDIAGNOS IS:1) Schizoaffective d/oChemical dependencyRISK ASSESSMENT:Suicide: lowHomicide: lowDeliberate Self-Harm: lowAggression: lowImminent Physical Self Impairment: lowINFORMED CONSENT: Yes, completed with the Patient. Discussed the risks,benefits and alternatives to the medication(s) recommended. Consent wasgiven.INTERVENTION:Biol ogical: continue current. Depakote, prozac, seroquel. Reduce prn asneeded by his manipulating for benzo.Psychological: Encourage group and milieu despite his refusal.Social: discharge planning - per SERAFIN. Need develop structured dc plan incsobriety. Suicide risk.DISCHARGE PLANNING: Discharge when there is a dc plan.SIGNATURE: Julianna Escalera MD PATIENT NAME: Matty WhitlockDATE: March 06, 2017 : 10:10 AM [facility] CASE MANAGEMon 03-05-2017 CASE MANAGEM HNO ID: [id number] thor: Regina Houston (Sw)Service: Behavioral HealthAuthor Type: Social WorkerType: Care Mgt Progress NoteFiled: 03/05/2017 1:39 PMNote Text:BEHAVIORAL HEALTH SOCIAL WORKPROGRESS NOTESERVICE DATE: 03/05/2017SERVICE TIME: 1:32pmFamily meeting scheduled with patient and his father tomorrow at 11:45 am.Father plans to inform the patient that he is being evicted and even if hereturns to his apartment he will need to be moving out in the near future.Also, parents have not found a home for patient's cat, which may need tim placed in an animal skilled nursing. Currently patient is focused on returningto his place and is unable to consider [employer] plans. Parents would likehim to commit to residential substance abuse treatment.SIGNATURE: YOSEF Forte PATIENT NAME: Matty WhitlockDATE: March 05, 2017 : 1:33 PM [facility] NURSING PROGon 03-05-2017 NURSING PROG HNO ID: [id number] thor: Jessica (Rn) SHIREEN Cerdaervice: NursingAuthor Type: Registered NurseType: Nursing Progress NoteFiled: 03/06/2017 7:00 AMNote Text: Nursing Progress NotePatient Name: Matty WhitlockMRN: [id number] Location: [place] [address]*_ Daily Note:1929: Received report and assumed care of patient. Matty was sleeping inhis room, resting comfortably.1999: Patient did come out for evening snack, he thought it was breakfasttime. He was pleasant on approach and unkempt in appearance, dressed inhospital attire. He denied SI/HI and AVH. He was compliant with vitalsigns. He was not social with peers and sat by himself. After snack hewent back to his room.2040: Patient medication compliant with night time medications andrequested/received PRN Trazodone.0700: Patient still sleeping. Patient has slept 10.5 hours this shift. Nobehavioral issues observed overnight.Arm band intact, safety checks maintained per unit protocol.This note was completed by: Jessica Cerda RN [facility] NURSING PROG HNO ID: [id number] thor: Kiel Evans (Rn) SHIREEN Albertoervice: (none)Author Type: Registered NurseType: Nursing Progress NoteFiled: 03/05/2017 6:18 PMNote Text: Nursing Progress NotePatient Name: Matty WhitlockMRN: [id number] Location: [place] [address]*_ Daily Note:0852 Report received from previous shift, pt visible on unit, irritable,pacing at time, ate breakfast. Pt seen by Dr. Escalera then pt calmlytold staff he was extremely anxious and feeling overwhelmed as well ascomplaining of difficulty dealing with his thoughts but refused toelaborate. Pt irritably demanding an injection, took scheduled medicationsthen received haldol 10 mg and ativan 2 mg IM, will assess for result. Ptdenies hallucinations, denies suicidal or homicidal ideations, contractsfor safety. Pt states he doesn't want to go to jail drug rehab butmight consider short term rehab, denies any somatic complaints at thistime, q 15 minute checks for safety and protection, will continue tomonitor.1135 Pt resting quietly in bed, easily arousable, no somatic complaintsnoted, q 15 minute checks for safety and protection, will continue tomonitor.1220 Pt ate lunch then immediately returned to his room and went to bed,q 15 minute checks for safety and protection, will continue to monitor.1810 Pt has remained seclusive to his room and himself, refused to getout of bed to eat dinner, easily arousable, denies suicidal or homicidalideation, denies hallucinations, contracts for safety, no somaticcomplaints noted, q 15 minute checks for safety and protection, willcontinue to monitor.This note was completed by: Kiel Alberto RN [facility] NURSING PROG HNO ID: [id number] thor: Jessica (Rn) Prashant, RNService: NursingAuthor Type: Registered NurseType: Nursing Progress NoteFiled: 03/05/2017 6:23 AMNote Text: Nursing Progress NotePatient Name: Matty WhitlockMRN: [id number] Location: [place] [address]*_ Daily Note:1929: Received report and assumed care of patient. Matty was sleeping inhis bed, resting comfortably.2048: Patient medication compliant with night time medications andrequested/received PRN Trazodone. Patient compliant with vital signs andstated he feels better than before. Patient denies SI/HI and AVH.Patient denies any pain at this time. He has stayed in his room allevening, mainly sleeping.619: Patient has slept all night, did not come out of room at all.Patient has slept 11.5 hours. No behavioral issues observed overnight.Arm band intact, safety checks maintained per unit protocol.This note was completed by: Jessica Cerda RN [facility] PROGRESSon 03-05-2017 PROGRESS HNO ID: [id number] thor: Julianna EscaleraService: (none)Author Type: PhysicianType: Progress NotesFiled: 03/05/2017 8:30 AMNote Text:PROGRESS NOTE BEHAVIORAL HEALTHSERVICE DATE: 03/05/2017SERVICE TIME: 10:10 AMThe Interdisciplinary team met and reviewed treatment goals and dischargeplanning.SUBJECTI VESeen in office with sw and pharmacist. More subdued, acknowledges he canbenefit from hospital. He wants help, agrees to continue with Seroquel.Mood is labile, irritated, unrealistic but not overtly psychotic. Pt sayshe wants inpatient drug treatment and agrees to make calls, though he thengoes on to say he can't call from here.No AVH, delusions or paranoia.Per nursing, no behavioral issues.Mother has reported to sw that pt seems dangerous to himself and possiblyto others. She is v worried he will become violent.OBJECTIVEPHYSICAL EXAM: BP 101/62 Pulse 78 Temp 36.7 ?C (98.1 ?F) (Oral) Resp16 Ht 170.2 cm (5' 7) Wt 77.1 kg (170 lb) SpO2 97% BMI 26.63kg/c0UCEMDN STATUS EXAMINATION:Appearance: Appears stated age and In hospital gownBehavior: Calmer, more organizedOrientation: Person, Place, Time and SituationSpeech/Language: The patient demonstrates appropriate tone, prosody,marin, phonetics, and syntaxMood/Affect: More rested and cooperative, irritableThought Form: CoherentThought Content: CoherentSuicidal Ideations: Threats of suicide as soon as he leaves.Homicidal Ideations: No homicidal ideation, intent or plan.Insight: better. Acknowledges relapse and non-adherenceJudgment: FairMemory/Cognition: IntactPsychomotor: Psychomotor activity was normalNEW PROBLEMS ON UNIT SINCE LAST ENCOUNTER: NoneCurrent hospital medications:FLUoxetine 20 mg cap(s) (PROzac) 20 mg ORAL DAILYQUEtiapine 200 mg tab(s) (SEROquel) 200 mg ORAL AT BEDTIMEhaloperidol 10 mg tab(s) (HALDOL) 10 mg ORAL q 4 H PRNhaloperidol lactate 10 mg injection (HALDOL) 10 mg INTRAMUSCULAR q 4 H PRNdiphenhydrAMINE 50 mg injection (BENADRYL) 50 mg INTRAMUSCULAR q 4 H PRNnicotine 21 mg/24 hr 1 Patch (NICODERM) 1 Patch TRANSDERMAL DAILYnicotine -- REMOVE patch OTHER DAILYnicotine - verify patch OTHER q [address] (DEPAKOTE) tab(s) 750 mg 750 mg ORAL BIDnicotine polacrilex 2 mg gum (NICORETTE) 2 mg ORAL q 2 H PRNLORazepam 2 mg (ATIVAN) 2 mg ORAL q 4 H PRNLORazepam 2 mg injection (ATIVAN) 2 mg INTRAMUSCULAR q 4 H PRNtraZODone 50 mg tab(s) (DESYREL) 50 mg ORAL HS PRNacetaminophen 650 mg tab(s) (TYLENOL) 650 mg ORAL q 6 H PRNaluminum-magnesium hydroxide-simethicone 200-200-20 mg/5 mL 30 mL(MAALOX,MYLANTA,MAG-AL PLUS) 30 mL ORAL q 4 H PRNmagnesium hydroxide 400 mg/5 mL 30 mL (MOM) 30 mL ORAL DAILY PRNDATA:Diagnostic tests reviewed for today's visit:Results for MATTY WHITLOCK ( ) as of 03/04/2017 09:44 Ref. Range 03/04/2017 06:47Valproic Acid Latest Ref Range: 50 - 100 ug/mL 83.8ASSESSMENT/PLANDIAGNOS IS:1) Schizoaffective d/oChemical dependencyRISK ASSESSMENT:Suicide: lowHomicide: lowDeliberate Self-Harm: lowAggression: lowImminent Physical Self Impairment: lowINFORMED CONSENT: Yes, completed with the Patient. Discussed the risks,benefits and alternatives to the medication(s) recommended. Consent wasgiven.INTERVENTION:Biol ogical: continue current.Psychological: Encourage group, milieu and individual therapy.Social: discharge planning - per SW. Need develop structured dc plan incsobriety. Suicide risk.DISCHARGE PLANNING: Discharge when there is a dc plan.SIGNATURE: Julianna Escalera MD PATIENT NAME: Matty WhitlockDATE: March 05, 2017 : 10:10 AM [facility] NURSING PROGon 03-04-2017 NURSING PROG HNO ID: [id number] thor: Kiel Evans (Rn) SHIREEN Albertoervice: (none)Author Type: Registered NurseType: Nursing Progress NoteFiled: 03/04/2017 6:36 PMNote Text: Nursing Progress NotePatient Name: Matty WhitlockMRN: [id number] Location: [id number]/[place] [address]*_ Daily Note:1005 Pt requested and received nicorette gum, resting quietly in bed,will continue to monitor for any change in status.1058 Pt medication compliant.1605 Pt calmly complaining of anxiety, requesting ativan, recieved ativan2 mg p.o., will assess for results. Pt requests that the next time herequests ativan he wants it in an injection. Staff explained thatinjections are given when staff assesses that they are needed, ptverbalized an understanding. Pt has a flat affect, guarded, seclusive tohis room, states still feeling suicidal but no plan verbalized, willcontinue to monitor for any change in status.1635 Pt began pacing, complaining that the ativan by pill didn't work andhe should have received a shot. Pt complaining of feeling overwhelmed aswell as severe anxiety and demanding the haldol injection, received ekgtyx39 mg IM, will assess for results, will continue to monitor for any changein status.1740 Pt visiting with his mother, laughing with bright affect whileinteracting with his mother and staff. While laughing, pt told his motherand this staff member that he wants to be . Pt continued to smile andlaugh while talking about . Pt requested this nurse tell his motherwhich medications he's taking as well as prn medications he's received,staff told pt's mother and answered questions as needed. Pt appears happywhile talking with his mother even though pt told her he wants to .This nurse escorted pt's mother off unit, pt's mother verbalized herconcern that pt is manipulating her by telling her he wants to sincehis affect was incongruent to that statement, let pt's mother vent herfeelings and frustrations, positive reinforcement given.This note was completed by: Kiel Alberto RN [facility] NURSING PROG HNO ID: [id number] thor: Khanh Mendoza ([facility]) Rylee Ordoñez: (none)Author Type: Behavorial Health AssistantType: Nursing Progress NoteFiled: 03/04/2017 2:19 PMNote Text: Nursing Progress NotePatient Name: Matty WhitlockMRN: [id number] Location: [id number]/[facility]*_ Daily Note:0825 Pt was in room in AM ,dressed in hospital attire , cooperative withvitals no signs of distress. When breakfast was delivered he told a staffmember if he did not get medicated he would go off ,AND do bad things on theunit (nurse notified ) he is currently in the day area calm ,in control,no signs of escalation , staff splitting on when he is going to receivehis morning meds.1415 Pt remains resting in his room ,withdrawn, antisocial , refusing allstructured groups ,when invited to groups I'm not interested in any thingyou have to offer here He was out for his lunch ,consumed 100% ,immediatly returned to his room . He denies any new monreal , denies SI,HI,AVhallucinations , encouraged to go to groups , remains on Q15's. Willcontinue to monitor .This note was completed by: Khanh Ordoñez [facility] NURSING PROG HNO ID: [id number] thor: iTsha (Rn) Syed, SHIREENervice: NursingAuthor Type: Registered NurseType: Nursing Progress NoteFiled: 03/04/2017 6:13 AMNote Text: Nursing Progress NotePatient Name: Matty WhitlockMRN: [id number] Location: [id number]/[facility]1-015*_ Daily Note:2330 Received report and assumed care of patient. Patient resting quietlyin bed, eyes closed. Will continue to monitor.0612 Patient continues to sleep, 7 hours so far.Arm band intact, Q 15 minute safety checks maintained. Will continue tomonitor.This note was completed by: Tisha Lynch, RN [facility] NURSING PROG HNO ID: [id number] thor: LAURIE Gruber Lpnervice: (none)Author Type: LICENSED NURSEType: Nursing Progress NoteFiled: 03/03/2017 10:42 PMNote Text: Nursing Progress NotePatient Name: Matty WhitlockMRN: [id number] Location: [place] [address] [id number]*_ Daily Note:Pt has been up for meals only. Observed sitting in the dayarea and laying in his bed with his eyes closed. He is alert andoriented. General appearance is disheveled in hospital gowns and pants.Mood/affect is depressed. No interaction with peers and interacts withstaff to have needs met. Appetite is adequate. He ate dinner and snack.No groups attended. No acute distress or behavioral issues observed atthis time. He voiced no delusions. Denies any audio/visualhallucinations and denies any suicidal/homicidal ideation at this time.Will continue to monitor pt q 15 minutes on rounds for safety. Prn 50 mgtrazodone given at 2106 for sleep.This note was completed by: Brandon Fletcher LPN [facility] PROGRESSon 03-04-2017 PROGRESS HNO ID: [id number] thor: Julianna Mei: (none)Author Type: PhysicianType: Progress NotesFiled: 03/04/2017 10:00 AMNote Text:PROGRESS NOTE BEHAVIORAL HEALTHSERVICE DATE: 03/04/2017SERVICE TIME: 10:10 AMThe Interdisciplinary team met and reviewed treatment goals and dischargeplanning.SUBJECTI VESeen in office with sw. More subdued, acknowledges he can benefit fromhospital. 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 She is v worried he will become violent.OBJECTIVEPHYSICAL EXAM: BP 106/67 Pulse 77 Temp 36.5 ?C (97.7 ?F) (Oral) Resp16 Ht 170.2 cm (5' 7) Wt 77.1 kg (170 lb) SpO2 97% BMI 26.63kg/j9VONOSH STATUS EXAMINATION:Appearance: Appears stated age and In hospital gownBehavior: Calmer, more organizedOrientation: Person, Place, Time and SituationSpeech/Language: The patient demonstrates appropriate tone, prosody,marin, phonetics, and syntaxMood/Affect: More rested and cooperative, still says he might as well goback to god which he says is he wants to .Thought Form: CoherentThought Content: CoherentSuicidal Ideations: Threats of suicide as soon as he leaves.Homicidal Ideations: No homicidal ideation, intent or plan.Insight: better. Acknowledges relapse and non-adherenceJudgment: FairMemory/Cognition: IntactPsychomotor: Psychomotor activity was normalNEW PROBLEMS ON UNIT SINCE LAST ENCOUNTER: NoneCurrent hospital medications:haloperidol 10 mg tab(s) (HALDOL) 10 mg ORAL q 4 H PRNhaloperidol lactate 10 mg injection (HALDOL) 10 mg INTRAMUSCULAR q 4 H PRNdiphenhydrAMINE 50 mg injection (BENADRYL) 50 mg INTRAMUSCULAR q 4 H PRNnicotine 21 mg/24 hr 1 Patch (NICODERM) 1 Patch TRANSDERMAL DAILYnicotine -- REMOVE patch OTHER DAILYnicotine - verify patch OTHER q [address] (DEPAKOTE) tab(s) 750 mg 750 mg ORAL BIDOLANZapine 10 mg tab(s) (ZyPREXA) 10 mg ORAL AT BEDTIMEnicotine polacrilex 2 mg gum (NICORETTE) 2 mg ORAL q 2 H PRNLORazepam 2 mg (ATIVAN) 2 mg ORAL q 4 H PRNLORazepam 2 mg injection (ATIVAN) 2 mg INTRAMUSCULAR q 4 H PRNtraZODone 50 mg tab(s) (DESYREL) 50 mg ORAL HS PRNacetaminophen 650 mg tab(s) (TYLENOL) 650 mg ORAL q 6 H PRNaluminum-magnesium hydroxide-simethicone 200-200-20 mg/5 mL 30 mL(MAALOX,MYLANTA,MAG-AL PLUS) 30 mL ORAL q 4 H PRNmagnesium hydroxide 400 mg/5 mL 30 mL (MOM) 30 mL ORAL DAILY PRNDATA:Diagnostic tests reviewed for today's visit:Results for MATTY WHITLOCK ( ) as of 03/04/2017 09:44 Ref. Range 03/04/2017 06:47Valproic Acid Latest Ref Range: 50 - 100 ug/mL 83.8ASSESSMENT/PLANDIAGNOS IS:1) Schizoaffective d/oChemical dependencyRISK ASSESSMENT:Suicide: lowHomicide: lowDeliberate Self-Harm: lowAggression: lowImminent Physical Self Impairment: lowINFORMED CONSENT: Yes, completed with the Patient. Discussed the risks,benefits and alternatives to the medication(s) recommended. Consent wasgiven.INTERVENTION:Biol ogical: continue current.Psychological: Encourage group, milieu and individual therapy.Social: discharge planning - per SW. Need develop structured dc plan incsobriety.DISCHARGE PLANNING: Discharge when there is a dc plan.SIGNATURE: Julianna Escalera MD PATIENT NAME: Matty WhitlockDATE: March 04, 2017 : 10:10 AM [facility] Valproic Acidon 03-04-2017 Valproic Acid 83.8 ug/mL Normal 50-100 [facility] Comment on above: Result Comment: Refe rence ranges and high/low indicator flags are provided as general guidelines only. The treating physician must determine appropriate target levels/dosing based on the specific clinical situation. Performed By: #### V PA ####[facility] [place], [place] [id number] ALLIED HEALTHon 03-03-2017 Creatinine HNO ID: [id number] thor: Sr. Denney ([place] Yariel Del Rioice: Recreational TherapyAuthor Type: TherapistType: Allied HealthFiled: 03/03/2017 3:39 PMNote Text:PROGRESS NOTE BEHAVIORAL HEALTHTopic of Note: Three Day NoteSERVICE DATE: 03/03/2017SERVICE TIME: 3:35pmPatient does not attend any structured RT groups, in spite of greatencouragement. He is seclusive to his room. When asked, he remainshelpless and hopeless in his attitude. Groups will continue to beencouraged in order to promote healthy coping and social skills.SIGNATURE: JOSUE Bardales PATIENT NAME: Matty EliasTE: March 03, 2017 : 3:37 PM PAGER/CONTACT #: [facility] CASE MANAGEMon 03-03-2017 CASE MANAGEM HNO ID: [id number] thor: Regina Plata (Serafin) CelsoService: Behavioral HealthAuthor Type: Social WorkerType: Care Mgt Progress NoteFiled: 03/03/2017 3:17 PMNote Text:BEHAVIORAL HEALTH SOCIAL WORKPROGRESS NOTESERVICE DATE: 03/03/2017SERVICE TIME: 3:08 pmSocial worker spoke with patient's mother for collateral. She described along history of substance abuse and mood disorder since he was 15 or 16yrs old. He has had DUI's in the past also. At one point, he [facility] involvedin [facility] for 9 months and did well for awhile. He wasable to sustain temporary employment and had an apartment. However, permother, he was seclusive and had no one in his life, a very lonely anddisengaged existence and became reinvolved with drugs. Mother verifiedthat patient is evicted as of Thursday. Parents are cleaning out hisapartment. They are trying to find someone to take in his cat. They wouldlike him in [facility] substance abuse treatment. Mother states he has verylow self esteem and feels very hopeless. He also has a history of makingviolent threats when high. She feels he is high risk to suicide afterdischarge or will doing something so hateful due to his impulsiveness.SIGNATURE: YOSEF Forte PATIENT NAME: Matty WhitlockDATE: March 03, 2017 : 3:08 PM [facility] NURSING PROGon 03-03-2017 NURSING PROG HNO ID: [id number] thor: Khanh Mendoza ([facility]) Rylee Ordoñez: (none)Author Type: Behavorial Health AssistantType: Nursing Progress NoteFiled: 03/03/2017 2:43 PMNote Text: Nursing Progress NotePatient Name: Matty RainN: [id number] Location: [id number]/[facility]1-015*_ Daily Note:1312 Assumed care of pt @ 0730 in room dressed in hospital attire . He wasout for both meals ,consumed 100% . This morning he was med complaint ,his nurse gave him extra meds PO in AM ,( see RN note ) He has returned tohis room where he remains resting , depressed ,self isolating , disheveled,unkempt . Pt had no visitors today ,remains in control , non social withpeers . Pt had threatened to be out of control if he did not receive hismeds . He has remained in control ,refused all ADL's1440 Pt remains resting in his room , his father called AND the RN hadspoken with him . He remains in control ,denies any new pain , deniesSI,HI,AV hallucinations ,remaisn on Q15's. Will continue to monitor .This note was completed by: Khanh Ordoñez oral [facility] NURSING PROG HNO ID: [id number] thor: LAURIE Mcmahon Lpnervice: Behavioral HealthAuthor Type: LICENSED NURSEType: Nursing Progress NoteFiled: 03/03/2017 6:43 AMNote Text: Nursing Progress NotePatient Name: Matty RainN: [id number] Location: [id number]/-[id number]*_ Daily Note:2330: Assumed care of patient, patient sleeping in bed. i81cchxoi checks maintained.0630: Hours of sleep 8, denies SI, slept quietly throughout the night, nosigns and symptoms of pain nor discomfort will continue to monitor.This note was completed by: Katie Arizmendi LPN [facility] PROGRESSon 03-03-2017 PROGRESS HNO ID: [id number] thor: Julianna EscaleraService: (none)Author Type: PhysicianType: Progress NotesFiled: 03/03/2017 8:45 AMNote Text:PROGRESS NOTE BEHAVIORAL HEALTHSERVICE DATE: 03/03/2017SERVICE TIME: 10:10 AMThe Interdisciplinary team met and reviewed treatment goals and dischargeplanning.SUBJECTI VESeen in office with sw. Depressed, discouraged, 'embarrassed' by hissituation. My life is a joke, I don't know what to do, where to go, Ihave lost my job and apartment. Low self esteem is clear, and impulsivethreats of violence come easy to pt. He made multiple declarations ofwanting to kill himself and his cat, by electrocution or burning withgasoline.Pt has not called work or landlord to try to get details known of hissituation. No AVH, delusions or paranoia.Per nursing, no behavioral issues.OBJECTIVEPHYSICAL EXAM: BP 99/60 Pulse 83 Temp 37.1 ?C (98.8 ?F) (Oral) Resp16 Ht 170.2 cm (5' 7) Wt 77.1 kg (170 lb) SpO2 97% BMI 26.63kg/k3EMXOBB STATUS EXAMINATION:Appearance: Appears stated age and In hospital gownBehavior: Agitated, angry, defeated, desperateOrientation: Person, Place, Time and SituationSpeech/Language: The patient demonstrates appropriate tone, prosody,marin, phonetics, and syntaxMood/Affect: Fatigued Anxious, complaining about many losses andhelplessness.Thought Form: CoherentThought Content: CoherentSuicidal Ideations: Threats of suicide as soon as he leaves.Homicidal Ideations: No homicidal ideation, intent or plan. If anyonetouches my cat, I will kill them.Insight: Minimal. Acknowledges relapse and non-adherenceJudgment: FairMemory/Cognition: IntactPsychomotor: Psychomotor activity was normalNEW PROBLEMS ON UNIT SINCE LAST ENCOUNTER: NoneCurrent hospital medications:haloperidol 10 mg tab(s) (HALDOL) 10 mg ORAL q 4 H PRNhaloperidol lactate 10 mg injection (HALDOL) 10 mg INTRAMUSCULAR q 4 H PRNdiphenhydrAMINE 50 mg injection (BENADRYL) 50 mg INTRAMUSCULAR q 4 H PRNnicotine 21 mg/24 hr 1 Patch (NICODERM) 1 Patch TRANSDERMAL DAILYnicotine -- REMOVE patch OTHER DAILYnicotine - verify patch OTHER q [address] (DEPAKOTE) tab(s) 750 mg 750 mg ORAL BIDOLANZapine 10 mg tab(s) (ZyPREXA) 10 mg ORAL AT BEDTIMEnicotine polacrilex 2 mg gum (NICORETTE) 2 mg ORAL q 2 H PRNLORazepam 2 mg (ATIVAN) 2 mg ORAL q 4 H PRNLORazepam 2 mg injection (ATIVAN) 2 mg INTRAMUSCULAR q 4 H PRNtraZODone 50 mg tab(s) (DESYREL) 50 mg ORAL HS PRNacetaminophen 650 mg tab(s) (TYLENOL) 650 mg ORAL q 6 H PRNaluminum-magnesium hydroxide-simethicone 200-200-20 mg/5 mL 30 mL(MAALOX,MYLANTA,MAG-AL PLUS) 30 mL ORAL q 4 H PRNmagnesium hydroxide 400 mg/5 mL 30 mL (MOM) 30 mL ORAL DAILY PRNDATA:Diagnostic tests reviewed for today's visit:No new labsASSESSMENT/PLANDIAGNOS IS:1) Schizoaffective d/oChemical dependencyRISK ASSESSMENT:Suicide: lowHomicide: lowDeliberate Self-Harm: lowAggression: lowImminent Physical Self Impairment: lowINFORMED CONSENT: Yes, completed with the Patient. Discussed the risks,benefits and alternatives to the medication(s) recommended. Consent wasgiven.INTERVENTION:Biol ogical: continue current. Check vpa tomorrow.Psychological: Encourage group, milieu and individual therapy.Social: discharge planning - per SERAFIN. Refuses to see Dr Sandoval.DISCHARGE PLANNING: Discharge by the middle of the week.SIGNATURE: Julianna Escalera MD PATIENT NAME: Matty EliasTE: March 03, 2017 : 10:10 AM [facility] CASE MANAGEMon 03-02-2017 CASE MANAGEM HNO ID: [id number] thor: Regina Akers) CelsoService: Behavioral HealthAuthor Type: Social WorkerType: Care Mgt Progress NoteFiled: 03/02/2017 3:16 PMNote Text:BEHAVIORAL HEALTH SOCIAL WORKPROGRESS NOTESERVICE DATE: 03/02/2017SERVICE TIME: 3:13 pmSocial worker met with the patient during morning rounds. The patientappeared labile, frustrated, hypomanic, discharge focused and stated hewas looking for something to kill himself on the unit. He refused to allowSW to contact [facility] where he is an outpatient stating he neverwants to see Dr Sandoval again. However, he did agree to allow me to contacthis mother. Left a voice mail for mother, Imtiaz Whitlock ([phone])requesting call back for collateral and discharge planning. Will continueto follow.SIGNATURE: YOSEF Forte PATIENT NAME: Matty WhitlockDATE: March 02, 2017 : 3:13 PM [facility] NURSING PROGon 03-02-2017 NURSING PROG HNO ID: [id number] thor: Luciana (Rn) SHIREEN Rojaservice: Behavioral HealthAuthor Type: Registered NurseType: Nursing Progress NoteFiled: 03/02/2017 10:40 PMNote Text: Nursing Progress NotePatient Name: Matty WhitlockMRN: [id number] Location: [place] [address]*_ Daily Note:2100Report received from previous shift. Patient in room sleeping, he isdisheveled and depressed. Patient avoidant, denied suicidal thoughts orhallucinations. Patient was medication compliant, no prn medicationneeded. Patient on every 15 min rounds for safety, will continue tomonitor.In control.2235Patient in control, no prn medication required.This note was completed by: Luciana Rojas RN [facility] NURSING PROG HNO ID: [id number] thor: SHIREEN Mayer Rnervice: PsychiatryAuthor Type: Registered NurseType: Nursing Progress NoteFiled: 03/02/2017 6:33 PMNote Text: Nursing Progress NotePatient Name: Matty WhitlockMRN: [id number] Location: [id number]/[place] [address]*_ Daily Note:Patient ate 100% dinner.Identification band intact. Patientrelaxed, calm and socializing with peers in the dayroom. Will continue tomonitor and report all findings. Makes needs known to health care staffmembers. All routine medications given per doctors orders. No complaintsvoiced. Q15 minute rounds maintained this evening. Comfort and safetymeasures observed and met.This note was completed by: LUCIA MCCALL RN [facility] NURSING PROG HNO ID: [id number] thor: Vanessa Sutton) King RNService: NursingAuthor Type: Registered NurseType: Nursing Progress NoteFiled: 03/02/2017 3:26 PMNote Text: Nursing Progress NotePatient Name: Matty WhitlockMRN: [id number] Location: [id number]/[place] [address]*_ Daily Note: Teamed with Mental Health Worker and responsible formedications. Pt was compliant with his one scheduled med - depakote. Ptreported SI and denied HI. He denied AH/VH. Regarding suicidal thoughts,he said It's like being tortured but I like being tortured. It'sunbelievable, the whole situation. He received Ativan IM at 1026 foranxiety. His father visited at lunchtime. Nurse wanted to clarify ROIthis afternoon, but pt was sleeping.This note was completed by: Vanessa Townsend RN [facility] NURSING PROG HNO ID: [id number] thor: Khanh Mendoza ([facility]) Rylee Ordoñez: (none)Author Type: Behavorial Health AssistantType: Nursing Progress NoteFiled: 03/02/2017 1:43 PMNote Text: Nursing Progress NotePatient Name: Matty WhitlockN: [id number] Location: [place] [address]/[place] [address]*_ Daily Note:1331 Pt was in room upon start of shift , dressed in hospital attire,resting in back room . He was out for both meals consumed 100% , withdrawn, non social with peers . This afternoon he was out in the day area he hadvisitor . Pt stated that his visitor was his father ,visit went well . Heremains resting in the back room , withdrawn, med complaint , refusingafternoon group . He denies any new pain , denies SI,HI,AV hallucinations, encouraged to go to groups , remains on SI,HI,AV hallucinations ,remains on Q15's. Will continue to monitor .This note was completed by: Khanh Ordoñez oral [facility] NURSING PROG HNO ID: [id number] thor: Tisha (Rn) Syed, SHIREENervice: NursingAuthor Type: Registered NurseType: Nursing Progress NoteFiled: 03/02/2017 6:14 AMNote Text: Nursing Progress NotePatient Name: Matty WhitlockN: [id number] Location: [id number]/[place] [address]*_ Daily Note:1930 Received report and assumed care of patient.Matty has been sleeping this evening since he was medicated earlier in theday. He was awoken for vitals and scheduled medication, which he wascooperative with. He denied SI/HI and AVH.0609 Patient continues to sleep, 11 hours so far.Arm band intact, Q 15 minute safety checks maintained. Will continue tomonitor.This note was completed by: Tisha Lynch RN [facility] PLAN OF CAREon 03-02-2017 PLAN OF CARE HNO ID: [id number] thor: Alesia Charles (Pharmacist)Service: PharmacyAuthor Type: PharmacistType: Plan of CareFiled: 03/02/2017 1:27 PMNote Text:MEDICATION HISTORY AND MEDICATION RECONCILIATIONPatient Name:Sachin WhitlockMRN: [id number]: 1990Source of history:Patient: Reliability of source: potentially unreliableMedication Nonadherence Identified: Patient PreferenceThe above information represents the best possible medication history: YesReconciliation completed? Yes All CAFETERIA ASSOCIATE medications addressed by LIPAdditional comments:The patient states that he was previously taking depakote and olanzapine,but that he weaned himself off of all medications a few weeks ago becausehe felt that there were just making him tired.Allergies: ALLERGIESNo Known AllergiesCurrent CAFETERIA ASSOCIATE Medications:Prior to Admission medications as of 02/27/17 1724Not on JOLENE GallegosNov2016 1:26 PM [facility] PROGRESSon 03-02-2017 PROGRESS HNO ID: [id number] thor: Julianna EscaleraService: (none)Author Type: PhysicianType: Progress NotesFiled: 03/02/2017 10:17 AMNote Text:PROGRESS NOTE BEHAVIORAL HEALTHSERVICE DATE: 03/02/2017SERVICE TIME: 10:10 AMThe Interdisciplinary team met and reviewed treatment goals and dischargeplanning.CLIFF Holland in office with sw. Depressed, discouraged, 'embarrassed' by hissituation, nearly in tears throughout interview. Suicidal, I will killmyself, I need to end all this, Lost my job, my cat is starving. I willfight and beat someone up, I don't care any more. No AVH, delusions or paranoia.Per nursing, no behavioral issues.OBJECTIVEPHYSICAL EXAM: BP 90/60 Pulse 79 Temp 36.7 ?C (98.1 ?F) (Oral) Resp16 Ht 170.2 cm (5' 7) Wt 77.1 kg (170 lb) SpO2 97% BMI 26.63kg/t8KEIJQF STATUS EXAMINATION:Appearance: Appears stated age and In hospital gownBehavior: Agitated, angry, defeated, desperateOrientation: Person, Place, Time and SituationSpeech/Language: The patient demonstrates appropriate tone, prosody,marin, phonetics, and syntaxMood/Affect: Fatigued Anxious, complaining about 'inhumane' treatmentThought Form: CoherentThought Content: CoherentSuicidal Ideations: Threats of suicide as soon as he leaves.Homicidal Ideations: No homicidal ideation, intent or plan. If anyonetouches my cat, I will kill them.Insight: Minimal. Denies drugs are a problem.Judgment: FairMemory/Cognition: IntactPsychomotor: Psychomotor activity was normalNEW PROBLEMS ON UNIT SINCE LAST ENCOUNTER: NoneCurrent hospital medications:haloperidol 10 mg tab(s) (HALDOL) 10 mg ORAL q 4 H PRNhaloperidol lactate 10 mg injection (HALDOL) 10 mg INTRAMUSCULAR q 4 H PRNdiphenhydrAMINE 50 mg injection (BENADRYL) 50 mg INTRAMUSCULAR q 4 H PRNnicotine 21 mg/24 hr 1 Patch (NICODERM) 1 Patch TRANSDERMAL DAILYnicotine -- REMOVE patch OTHER DAILYnicotine - verify patch OTHER q [address] (DEPAKOTE) tab(s) 750 mg 750 mg ORAL BIDOLANZapine 10 mg tab(s) (ZyPREXA) 10 mg ORAL AT BEDTIMEnicotine polacrilex 2 mg gum (NICORETTE) 2 mg ORAL q 2 H PRNLORazepam 2 mg (ATIVAN) 2 mg ORAL q 4 H PRNLORazepam 2 mg injection (ATIVAN) 2 mg INTRAMUSCULAR q 4 H PRNtraZODone 50 mg tab(s) (DESYREL) 50 mg ORAL HS PRNacetaminophen 650 mg tab(s) (TYLENOL) 650 mg ORAL q 6 H PRNaluminum-magnesium hydroxide-simethicone 200-200-20 mg/5 mL 30 mL(MAALOX,MYLANTA,MAG-AL PLUS) 30 mL ORAL q 4 H PRNmagnesium hydroxide 400 mg/5 mL 30 mL (MOM) 30 mL ORAL DAILY PRNDATA:Diagnostic tests reviewed for today's visit:No new labsASSESSMENT/PLANDIAGNOS IS:1) Schizoaffective d/oChemical dependencyRISK ASSESSMENT:Suicide: lowHomicide: lowDeliberate Self-Harm: lowAggression: lowImminent Physical Self Impairment: lowINFORMED CONSENT: Yes, completed with the Patient. Discussed the risks,benefits and alternatives to the medication(s) recommended. Consent wasgiven.INTERVENTION:Biol ogical: continue currentPsychological: Encourage group, milieu and individual therapy.Social: discharge planning - per SW. Refuses to see Dr Sandoval.DISCHARGE PLANNING: Discharge by the middle of the week.SIGNATURE: Julianna Escalera MD PATIENT NAME: Matty WhitlockDATE: March 02, 2017 : 10:10 AM [facility] PROGRESS HNO ID: [id number] thor: Julianna EscaleraService: (none)Author Type: PhysicianType: Progress NotesFiled: 03/03/2017 8:24 AMNote Text:PROGRESS NOTE BEHAVIORAL HEALTHSERVICE DATE: 03/02/2017SERVICE TIME: 10:03 AMThe Interdisciplinary team met and reviewed treatment goals and dischargeplanning.CLIFF Holland in his room this early afternoon. He is still sleeping in bed. Easyto arouse. Denies all complaints to me, save feeling tired. Denies anySI, HI, intent or plan. No AVH, delusions or paranoia.Per nursing, no behavioral issues.OBJECTIVEPHYSICAL EXAM: BP 90/60 Pulse 79 Temp 36.7 ?C (98.1 ?F) (Oral) Resp16 Ht 170.2 cm (5' 7) Wt 77.1 kg (170 lb) SpO2 97% BMI 26.63kg/l3CMGETC STATUS EXAMINATION:Appearance: Appears stated age and In hospital gownBehavior: AppropriateOrientation: Person, Place, Time and SituationSpeech/Language: The patient demonstrates appropriate tone, prosody,marin, phonetics, and syntaxMood/Affect: FatiguedThought Form: CoherentThought Content: CoherentSuicidal Ideations: No suicidal ideation, intent or plan.Homicidal Ideations: No homicidal ideation, intent or plan.Insight: FairJudgment: FairMemory/Cognition: IntactPsychomotor: Psychomotor activity was normalNEW PROBLEMS ON UNIT SINCE LAST ENCOUNTER: NoneCurrent hospital medications:haloperidol 10 mg tab(s) (HALDOL) 10 mg ORAL q 4 H PRNhaloperidol lactate 10 mg injection (HALDOL) 10 mg INTRAMUSCULAR q 4 H PRNdiphenhydrAMINE 50 mg injection (BENADRYL) 50 mg INTRAMUSCULAR q 4 H PRNnicotine 21 mg/24 hr 1 Patch (NICODERM) 1 Patch TRANSDERMAL DAILYnicotine -- REMOVE patch OTHER DAILYnicotine - verify patch OTHER q [address] (DEPAKOTE) tab(s) 750 mg 750 mg ORAL BIDOLANZapine 10 mg tab(s) (ZyPREXA) 10 mg ORAL AT BEDTIMEnicotine polacrilex 2 mg gum (NICORETTE) 2 mg ORAL q 2 H PRNLORazepam 2 mg (ATIVAN) 2 mg ORAL q 4 H PRNLORazepam 2 mg injection (ATIVAN) 2 mg INTRAMUSCULAR q 4 H PRNtraZODone 50 mg tab(s) (DESYREL) 50 mg ORAL HS PRNacetaminophen 650 mg tab(s) (TYLENOL) 650 mg ORAL q 6 H PRNaluminum-magnesium hydroxide-simethicone 200-200-20 mg/5 mL 30 mL(MAALOX,MYLANTA,MAG-AL PLUS) 30 mL ORAL q 4 H PRNmagnesium hydroxide 400 mg/5 mL 30 mL (MOM) 30 mL ORAL DAILY PRNDATA:Diagnostic tests reviewed for today's visit:No new labsASSESSMENT/PLANDIAGNOS IS:1) Schizoaffective d/oRISK ASSESSMENT:Suicide: lowHomicide: lowDeliberate Self-Harm: lowAggression: lowImminent Physical Self Impairment: lowINFORMED CONSENT: Yes, completed with the Patient. Discussed the risks,benefits and alternatives to the medication(s) recommended. Consent wasgiven.INTERVENTION:Biol ogical: continue currentPsychological: Encourage group, milieu and individual therapy.Social: discharge planning - per [facility] PLANNING: Discharge by the middle of the week.SIGNATURE: Julianna Escalera MD PATIENT NAME: Matty EliasTE: March 02, 2017 : 10:03 AM [facility] NURSING PROGon 03-01-2017 NURSING PROG HNO ID: [id number] thor: Koko (Rn) SHIREEN Jeffrieservice: (none)Author Type: Registered NurseType: Nursing Progress NoteFiled: 03/01/2017 5:54 PMNote Text: Nursing Progress NotePatient Name: Matyt WhitlockMRN: [id number] Location: [place] [address]/[place] [address]_ Daily Note:Patient presents disheveled in hospital gown, reports increased anxietysecondary to unit activity. Patient states he is a bundle of nerves b/cevery one is yelling and singing. Shaking and upset, patient requestedmedication for agitation. Medicated patient with Haldol 5 mg IM andBenedryl 50 mg for anxiety and increasing agitation. Patient directed totrihealth seclusion room, lights lowered for a theraputic and relaxingenvironment with good results. Patient resting quietly. 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 She feels he needs to go intoa 1 year committed treatment plan followed by a sober living facility.Mother reports she has lists of places and requests that she be added toROI in order to participate with dc planning. He called me andsaid I'm going to get out of here and kill you. Mother reports he leftthis message in frustration when she could not respond to his calls d/tbeing at a meeting at work.Patient agreed to sign ELLIE for Imtiaz and Abiola Whitlock, parents for updatesand assistance with discharge planning.Patient out of room for pranav meal, visited with mother briefly. Mother(Imtiaz) reports patient endorses suicidal ideation, though he denied it tostaff. Patient retreated back to bed after meal. Sleeping at this time.This note was completed by: Koko Ellis, RN [facility] NURSING PROG HNO ID: [id number] thor: Kamilla Mendoza ([facility]) Vibha Almonte: (none)Author Type: Behavioral Health TechType: Nursing Progress NoteFiled: 03/01/2017 6:35 AMNote Text: Nursing Progress NotePatient Name: Matty WhitlockMRN: [id number] Location: [place] [address] [address]*_ Daily Note:Report from previous shift received about the patient. Patient in bed andappeared to rest comfortably throughout the night with no S/S of pain ordistress. Q 15 minute checks observed and maintained for safety. Patientawake for brief interval, no issues or complaints voiced. Will continue tomonitor.This note was completed by: Kamilla Almonte Myla [facility] PROGRESSon 03-01-2017 PROGRESS HNO ID: [id number] thor: Kassidy Stewartice: PsychiatryAuthor Type: PhysicianType: Progress NotesFiled: 03/01/2017 9:11 AMNote Text:PROGRESS NOTE BEHAVIORAL HEALTHSERVICE DATE: 02/28/2017November 2016SUBJECTIVEDoing fineNo issuesOBJECTIVEPHYSICAL EXAM: BP 106/66 Pulse 109 Temp 37 ?C (98.6 ?F) (Oral) Resp16 Ht 170.2 cm (5' 7) Wt 77.1 kg (170 lb) BMI 26.63 kg/s4XLSOIO STATUS EXAMINATION:Appearance: Appears stated age and In hospital gownBehavior: AppropriateOrientation: Person, Place, Time and SituationSpeech/Language: The patient demonstrates appropriate tone, prosody,marin, phonetics, and syntaxMood/Affect: FatiguedThought Form: CoherentThought Content: CoherentSuicidal Ideations: No suicidal ideation, intent or plan.Homicidal Ideations: No homicidal ideation, intent or plan.Insight: FairJudgment: FairMemory/Cognition: IntactPsychomotor: Psychomotor activity was normalNEW PROBLEMS ON UNIT SINCE LAST ENCOUNTER: NoneCurrent hospital medications:haloperidol lactate 5 mg injection (HALDOL) 5 mg INTRAMUSCULAR ONCEhaloperidol 10 mg tab(s) (HALDOL) 10 mg ORAL q 4 H PRNhaloperidol lactate 10 mg injection (HALDOL) 10 mg INTRAMUSCULAR q 4 H PRNdiphenhydrAMINE 50 mg injection (BENADRYL) 50 mg INTRAMUSCULAR q 4 H PRNHALOPERIDOL LACTATE 5 MG/ML INJECTION SOLUTIONnicotine 21 mg/24 hr 1 Patch (NICODERM) 1 Patch TRANSDERMAL DAILYnicotine -- REMOVE patch OTHER DAILYnicotine - verify patch OTHER q [address] (DEPAKOTE) tab(s) 750 mg 750 mg ORAL BIDOLANZapine 10 mg tab(s) (ZyPREXA) 10 mg ORAL AT BEDTIMEnicotine polacrilex 2 mg gum (NICORETTE) 2 mg ORAL q 2 H PRNLORazepam 2 mg (ATIVAN) 2 mg ORAL q 4 H PRNLORazepam 2 mg injection (ATIVAN) 2 mg INTRAMUSCULAR q 4 H PRNtraZODone 50 mg tab(s) (DESYREL) 50 mg ORAL HS PRNacetaminophen 650 mg tab(s) (TYLENOL) 650 mg ORAL q 6 H PRNaluminum-magnesium hydroxide-simethicone 200-200-20 mg/5 mL 30 mL(MAALOX,MYLANTA,MAG-AL PLUS) 30 mL ORAL q 4 H PRNmagnesium hydroxide 400 mg/5 mL 30 mL (MOM) 30 mL ORAL DAILY PRNDATA:Diagnostic tests reviewed for today's visit:No new labsASSESSMENT/PLANDIAGNOS IS:1) Schizoaffective d/oRISK ASSESSMENT:Suicide: lowHomicide: lowDeliberate Self-Harm: lowAggression: lowImminent Physical Self Impairment: lowINFORMED CONSENT: Yes, completed with the Patient. Discussed the risks,benefits and alternatives to the medication(s) recommended. Consent wasgiven.INTERVENTION:Biol ogical: continue currentPsychological: Encourage group, milieu and individual therapy.Social: discharge planning - per [facility] PLANNING: Discharge by the middle of the week.Jian Carranzaember 2016 [facility] ALLIED HEALTHon 02-28-2017 ALLIED HEALTH HNO ID: [id number] thor: Sr. Denney ([facility]) FAUSTINO Del Rioervice: Recreational TherapyAuthor Type: TherapistType: Allied HealthFiled: 02/28/2017 3:05 PMNote Text:PERSONAL DE-ESCALATION PLAN BEHAVIORAL HEALTHSERVICE DATE: 02/28/2017SERVICE TIME: 11:45amPersonal De-Escalation Completed: Yes.PROBLEM BEHAVIORS:What type of behaviors are problems for you: Using crystal methWhat types of things (triggers) make you feel unsafe or upset: Having suchbad anxiety and depressionPlease describe your warning signs, for example what other people maynotice when you begin to lose control: Isolating/Avoiding People and NotTaking Care of SelfWhat are some things that help to calm you down or keep you safe: Helps tim alone.What are some things that do NOT help you calm down or stay safe: Thehigh anxiety I have, and being around a lot of people.STRENGTHS:What are your strengths when feeling out of control: I have will-power.SKILLS:What skills do you have/what are you good at: I am good at workingthings through.OTHER:Are you able to communicate to staff when you are having a hard time: YesWhat kinds of incentives work for you: Nothing identified.SIGNATURE: KLAUDIA Bardales PATIENT NAME: Matty WhitlockDATE: February 28, 2017 : 3:02 PM PAGER/CONTACT #: [facility] ALLIED HEALTH HNO ID: [id number] thor: Sr. Kaplane ([facility]) FAUSTINO Del Rioervice: Recreational TherapyAuthor Type: TherapistType: Allied HealthFiled: 02/28/2017 3:02 PMNote Text:THERAPEUTIC PROGRAMMING ASSESSMENTSERVICE DATE: 02/28/2017SERVICE TIME: 3:50pmRECOMMENDATIONS:Expr essive TherapyIllness/Symptom ManagementLeisure EducationLeisure SkillsRelaxationSocializat ionStress ManagementACTIVITIES OF DAILY LIVING (Difficulty in the following ADL areas):all ADL's, no difficultiesGENERAL OBSERVATIONS:Depressed affect and moodUnkempt appearanceSome rambling speech notedDeclined getting out of bed for the interviewASSESSMENT COMPLETED: Yes: STRESS MANAGEMENT SKILLS:Identified Stressors: I am going to lose everything by being in here.Yes, I do use crystal meth and marijuana, okay? I have such high anxietyall the time.Effective Coping Strategies Used: I read the Bible.Ineffective Coping Strategies Used: I guess using the crystal meth.Describe what you do on an average day: I work full-time.INTERESTS:Mauricio nt:Working, watching moviesFuture:Same as current interestsNo Interest:Nothing identifiedPast Interest:Same as current interestsPATIENT'S GOALS FOR RECREATIONAL THERAPY PROGRAM:Patient's personal goal(s) include I need to get my medicine straightenedout and not lose time at work.SIGNATURE: Sr. [place] Quang [facility] PATIENT NAME: Matty WhitlockDATE: February 28, 2017 : 2:54 PM PAGER/CONTACT #: [facility]: [id number] thor: Jessica Parikh () DanzingerService: Social WorkAuthor Type: Social WorkerType: Care Mgt Initial AssessmentFiled: 02/28/2017 1:20 PMNote Text:BEHAVIORAL HEALTH SOCIAL WORK/CARE MANAGEMENTASSESSMENT AND DISCHARGE PLANSERVICE DATE: 02/28/2017SERVICE TIME: 13:07Reason for Admission: Per Intake:Matty Whitlock is a 27 year old malebrought in to [place] [facility] by police for manic and delusional behavior.Per ED According to the patient is father called the police because hisfather thought he was in a manic episode. ?In reality, the police officerstates that he was pulling another person over for routine traffic stop,when the patient walked up to the campus police officer and began rambling andhaving flight of ideas and tangential speech. ?They then brought thepatient into the ED for evaluation. ED reports that pt?Pt reports having bipolar disorder and say I've been manic forever. Atleast 70 days. Pt reported stopping his psychiatric medicationapproximately two weeks ago. Pt says his usual medications are [id number] mg TID and xantrax 20 mg qhs. Pt said second medication was notxanax and not atarax, but insists xantrax. Pt denies SI, HI , and AH, butdoes acknowledge seeing things sometimes. He reported that they areusually spiritual things and that I think it's ok. Pt went on to talkabout his anxiety and reported my anxiety is going to kill me. I knowthat I'm going to from it some day. I had a panic attack one time andfell down on the floor and my head shrunk. When asked about this he saidthat his head returned to normal size again.?Patient reports that Dr. Sandoval had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 Critically abnormal Negative [facility] Comment on above: Result Comment: Cuto ff threshold at 50 ng/mL.Detection of any drug(s) is presumptive only. For confirmation by alternative methods contact the Laboratory within 5 days. For medical purposes only. Documented cross-reactivities (false positives) on file in Laboratory. Performed By: #### C BCDIF ####[place] [address] Cocaine, Urine Negative Normal Negative [facility] Comment on above: Result Comment: Cuto ff threshold at 300 ng/mL.Detection of any drug(s) is presumptive only. For confirmation by alternative methods contact the Laboratory within 5 days. For medical purposes only. Documented cross-reactivities (false positives) on file in Laboratory. Performed By: #### C BCDIF ####[place] [address] Opiates, Urine Negative Normal Negative [facility] Comment on above: Result Comment: Cuto ff threshold at 300 ng/mL.Detection of any drug(s) is presumptive only. For confirmation by alternative methods contact the Laboratory within 5 days. For medical purposes only. Documented cross-reactivities (false positives) on file in Laboratory. Performed By: #### C BCDIF ####[place] [address] Oxycodone, Urine Negative Normal Negative [facility] Comment on above: Result Comment: Cuto ff threshold at 100 ng/mL.Detection of any drug(s) is presumptive only. For confirmation by alternative methods contact the Laboratory within 5 days. For medical purposes only. Documented cross-reactivities (false positives) on file in Laboratory. Performed By: #### C BCDIF ####[place] [address] Phencyclidine, Urine Negative Normal Negative [facility] Comment on above: Result Comment: Cuto ff threshold at 25 ng/mL.Detection of any drug(s) is presumptive only. For confirmation by alternative methods contact the Laboratory within 5 days. For medical purposes only. Documented cross-reactivities (false positives) on file in Laboratory. Performed By: #### C BCDIF ####[place] [address] Troponin Ton 02-27-2017 Troponin T.cardiac mass conc ug/L Normal 0.000-0.029 [facility] Comment on above: Performed By: #### C BCDIF ####[place] [address] Urinalysison 02-27-2017 Bilirubin, Urine Negative Normal Negative [facility] Comment on above: Performed By: #### C BCDIF ####[place] [address] Hemoglobin mass conc (Bld) Negative Normal Negative [facility] Comment on above: Performed By: #### C BCDIF ####[place] [address] Leukest Negative Normal Negative [facility] Comment on above: Performed By: #### C BCDIF ####[place] [address] pH of blood 6.0 [pH] Normal 5.0-8.0 [facility] Comment on above: Performed By: #### C BCDIF ####[place] [address] Protein, Urine Negative Normal Negative [facility] Comment on above: Performed By: #### C BCDIF ####[place] [address] Specific [place], Ur 1.015 Normal 1.001-1.[address] [facility] Comment on above: Performed By: #### C BCDIF ####[place] [address] Urine, clarity Clear Normal Clear [facility] Comment on above: Performed By: #### C BCDIF ####[place] [address] Urine, color Yellow Normal Yellow [facility] Comment on above: Performed By: #### C BCDIF ####[place] [phone] Urine, glucose presence Negative Normal Negative [facility] Comment on above: Performed By: #### C BCDIF ####[facility] [address] [place] [address] Urine, ketones presence Trace Critically abnormal Negative [facility] Comment on above: Performed By: #### C BCDIF ####[facility] [address] [place] [address] Urine, nitrite presence Negative Normal Negative [facility] Comment on above: Performed By: #### C BCDIF ####[facility] [address] [place] [address] Urine, urobilinogen 1 Normal 0.2-1.0 [facility] Comment on above: Performed By: #### C BCDIF ####[facility] [address] [place] [address] Valproic Acidon 02-27-2017 Valproic Acid <3.2 Low 50-100 [facility] Comment on above: Result Comment: Refe rence ranges and high/low indicator flags are provided as general guidelines only. The treating physician must determine appropriate target levels/dosing based on the specific clinical situation.Result rechecked. Performed By: #### C BCDIF ####[place] [address] CBC and Differentialon 01-06 Abs Baso 0.03 k/uL Normal 0.00-0.10 [facility] Comment on above: Performed By: #### C BCDIF, CMP ####[place] [address] Abs Noble 0.92 k/uL High 0.00-0.86 [facility] Comment on above: Performed By: #### C BCDIF, CMP ####[facility] [address] [place] [address] Abs Neut 7.38 k/uL Normal 1.45-7.50 [facility] Comment on above: Performed By: #### C BCDIF, CMP ####[facility] [address] [place] [address] Basophils/100 WBC Auto (Bld) 0.3 % Normal [facility] Comment on above: Performed By: #### C BCDIF, CMP ####[facility] [address] [place] [address] Eosinophils 0.34 10*3/uL Normal 0.00-0.45 [facility] Comment on above: Performed By: #### C BCDIF, CMP ####[facility] [address] [place] [address] Eosinophils/100 leukocytes 3.1 % Normal [facility] Comment on above: Performed By: #### C BCDIF, CMP ####[facility] [address] [place] [address] Erythrocyte distribution width Auto Ratio (RBC) 13.2 % Normal 11.5-15.0 [facility] Comment on above: Performed By: #### C BCDIF, CMP ####[place] [address] Erythrocytes (RBC) 4.30 10*6/uL Normal 4.20-6.00 [facility] Comment on above: Performed By: #### C BCDIF CMP ####[place] [address] Hematocrit (HCT) 38.5 % Low 39.0-51.0 [facility] Comment on above: Performed By: #### C BCROSIOF CMP ####[place] [address] Hemoglobin mass conc (Bld) 12.9 g/dL Low 13.0-17.0 [facility] Comment on above: Performed By: #### C BCDIF, CMP ####[facility] [address] [place] [address] Lymphocytes 2.17 10*3/uL Normal 1.00-4.00 [facility] Comment on above: Performed By: #### C BCDIF, CMP ####[facility] [address] [place] [address] Lymphocytes/100 leukocytes 20.0 % Normal [facility] Comment on above: Performed By: #### C BCDIF, CMP ####[facility] [address] [place] [address] MCH 30.0 pG Normal 26.0-34.0 [facility] Comment on above: Performed By: #### C BCDIF, CMP ####[facility] [address] [place] [address] MCHC mass conc (RBC) 33.5 g/dL Normal 30.5-36.0 [facility] Comment on above: Performed By: #### C BCDIF, CMP ####[facility] [address] [place] [address] MCV 89.5 fL Normal 80.0-100.0 [facility] Comment on above: Performed By: #### C BCDIF, CMP ####[facility] [address] [place] [address] Monocytes/100 leukocytes 8.5 % Normal [facility] Comment on above: Performed By: #### C BCDIF, CMP ####[facility] [address] [place] [address] Neutrophils/100 WBC Auto (Bld) 68.1 % Normal [facility] Comment on above: Performed By: #### C BCDIF, CMP ####[facility] [address] [place] [address] Platelet mean volume (PMV) 10.4 fL Normal 9.0-12.7 [facility] Comment on above: Performed By: #### C BCDIF, CMP ####[facility] [address] [place] [address] Platelets 190 10*3/uL Normal 150-400 [facility] Comment on above: Performed By: #### C BCDIF, CMP ####[facility] [address] [place] [address] WBC (Leukocytes) 10.84 10*3/uL Normal 3.70-11.00 [facility] Comment on above: Performed By: #### C BCDIF, CMP ####[facility] [address] [place] [address] Comp Metabolic Panelon 01-06 Alanine aminotransferase (ALT) 13 U/L Normal 5-50 [facility] Comment on above: Performed By: #### C BCDIF, CMP ####[facility] [address] [place] [address] Albumin 4.4 g/dL Normal 3.5-5.0 [facility] Comment on above: Performed By: #### C BCDIF, CMP ####[facility] [address] [place] [address] Alkaline phosphatase (ALP) 58 U/L Normal 40-150 [facility] Comment on above: Performed By: #### C BCDIF, CMP ####[facility] [address] [place] [address] Anion gap 14 mmol/L Normal 0-15 [facility] Comment on above: Performed By: #### C BCDIF, CMP ####[facility] [address] [place] [address] Aspartate aminotransferase (AST) 16 U/L Normal 7-40 [facility] Comment on above: Performed By: #### C BCDIF, CMP ####[facility] [address] [place] [address] Bilirubin (total) 0.5 mg/dL Normal 0.0-1.5 [facility] Comment on above: Performed By: #### C BCDIF, CMP ####[facility] [address] [place] [address] Calcium 9.2 mg/dL Normal 8.5-10.5 [facility] Comment on above: Performed By: #### C BCDIF, CMP ####[facility] [address] [place] [address] Chloride 99 mmol/L Normal 98-110 [facility] Comment on above: Performed By: #### C BCDIF, CMP ####[facility] [address] [place] [address] CO2 26 mmol/L Normal 23-32 [facility] Comment on above: Performed By: #### C BCDIF, CMP ####[facility] [address] [place] [address] Creatinine 0.93 mg/dL Normal 0.70-1.40 [facility] Comment on above: Performed By: #### C BCDIF, CMP ####[facility] [address] [place] [address] eGFR (non-black) mL/min/{1.73_m2} Normal [facility] Comment on above: Result Comment: eGFR (Estimated GFR) Units of measure: mL/min/1.73 meters squaredeGFR is derived from the reexpressed MDRD Study equation using the following parameters: serum creatinine, age, gender and race. The creatinine assay has been calibrated to be traceable to IDMS.An eGFR <60 mL/min/1.73m2 for >3 months is consistent with chronic kidney disease. Refer to KDOQI guidelines for clinical interpretation.In patients with unstable renal function, e.g. those with acute kidney injury, the eGFR may not accurately reflect actual GFR. Performed By: #### C BCDIF, CMP ####[facility] [address] [place] [address] Glucose mass conc 91 mg/dL Normal 65-100 [facility] Comment on above: Performed By: #### C BCDIF, CMP ####[facility] [address] [place] [address] Potassium molar conc 3.4 mmol/L Low 3.5-5.0 [facility] Comment on above: Performed By: #### C BCDIF, CMP ####[facility] [address] [place] [address] Protein 6.8 g/dL Normal 6.0-8.4 [facility] Comment on above: Performed By: #### C BCDIF, CMP ####[place] [address] Sodium 139 mmol/L Normal 135-146 [facility] Comment on above: Performed By: #### C BCDIF, CMP ####[facility] [address] [place] [address] Urea nitrogen 11 mg/dL Normal 10-25 [facility] Comment on above: Performed By: #### C BCDIF, CMP ####[facility] [address] [place] [address] ED NOTEon 01-06-2017 ED NOTE HNO ID: [id number] thor: Sindi (Rn) SHIREEN Starrervice: (none)Author Type: Registered NurseType: ED NotesFiled: 01/06/2017 4:59 PMNote Text: Pt discharged to home. Discharge Instructions/ RX x 2/ Follow UpInstructions reviewed with patient with teach back method completed. Normal [facility] ED NOTE HNO ID: [id number] thor: Cristina (Rn) Boyd Nguyenice: (none)Author Type: Registered NurseType: ED NotesFiled: 01/06/2017 3:12 PMNote Text: Patient was seen in Triage by Catina Dietz, told he would be given toradoland dc'd to home, patient walked out. Apparently he went to smoke andcame back in, patient had been dismissed as AMA when he walked out anddischarge was reversed after he came back in. Normal [facility] ED NOTE HNO ID: [id number] thor: Albina (Rn) Yoli RNService: (none)Author Type: Registered NurseType: ED NotesFiled: 01/06/2017 2:33 PMNote Text:Pt states lower extremities began swelling and began getting red Lastnight at nine pm. States in extreme pain 10/10. Pt states he is veryanxious and has significant psych history. Lower extremities +2 edema.Denies trauma to lower extremities. Normal [facility] ED PROV NOTEon 01-06-2017 ED PROV NOTE HNO ID: [id number] thor: Alethea Castelan) Mekhi: (none)Author Type: Physician AssistantType: ED Provider NotesFiled: 01/06/2017 4:58 PMNote Text:ED Provider NotePatient Name: Matty WhitlockMRN: [id number] DATE: 01/06/17HistoryNo chief complaint on file.HPI Comments: 27-year-old male, with a history of bipolar disorder,presents for bilateral ankle swelling and redness. He states it startedlast night. The patient feels that his ankles swell intermittentlybecause he is anxious at times. However he is denying feeling anyanxiety, depression SI or HI at this time. He states he is only herebecause his ankles hurt and are red. A couple of weeks ago he was seenfor the same and placed on Bactrim however he only took it couple oftablets because the redness improved. No fevers or chills. No history ofcellulitis or CHFHistory provided by: PatientPAST MEDICAL HISTORYDiagnosis Date- Bipolar 1 disorder (HCC)- Psychiatric disorder depressionPAST SURGICAL HISTORYProcedure Laterality Date- ORTHOPEDICS SURGERY HXSocial HistorySocial History Main Topics- Smoking status: Current Every Day Smoker Packs/day: 1.00 Types: Cigarettes- Smokeless tobacco: Not on file- Alcohol use Yes Comment: occasional- Drug use: Yes Special: Crystal Meth, Marijuana- Sexual activity: Not on fileALLERGIESNo Known AllergiesReview of SystemsConstitutional: Negative for chills and fever.HENT: Negative.Eyes: Negative for photophobia and visual disturbance.Respiratory: Negative for cough and shortness of breath.Cardiovascular: Negative for chest pain.Gastrointestinal: Negative for diarrhea, nausea and vomiting.Musculoskeletal: Ankle swellingSkin: Positive for color change.Neurological: Negative.Psychiatric/Behav ioral: Negative for agitation, confusion and suicidalideas. The patient is nervous/anxious.Physical ExamBP 107/90 Pulse 88 Temp (Src) 97.4 (Oral) Resp 16 SpO2 100%Physical ExamConstitutional: He is oriented to person, place, and time. He appearswell-developed and well-nourished. He appears distressed (anxious ; irratein triage).HENT:Head: Normocephalic and atraumatic.Eyes: Conjunctivae are normal.Neck: Normal range of motion. Neck supple.Cardiovascular: Normal rate, regular rhythm and normal heart sounds.Pulmonary/Chest: Effort normal and breath sounds normal. No respiratorydistress. He has no wheezes. He has no rales.Abdominal: There is no tenderness.Musculoskeletal : He exhibits edema.1+ edema to bilateral ankles and feet. Does not extend above the ankles.There is some tenderness on palpation. Sensation intact. Pedal pulse 2+Neurological: He is alert and oriented to person, place, and time. Nocranial nerve deficit.Skin: There is erythema.Localized erythema to the medial aspects of the ankles bilaterally. Nostreaking, pustules, petechiae, ecchymosisPsychiatric: His mood appears anxious.Nursing note and vitals reviewed.Diagnostic TestingED Labs Ordered and ReviewedCBC + DIFF - Abnormal; Notable for the following: Result Value Ref Range Hemoglobin 12.9 (*) 13.0 - 17.0 g/dL Hematocrit 38.5 (*) 39.0 - 51.0 % Abs Noble 0.92 (*) 0.00 - 0.86 k/uL All other components within normal limitsCOMP METABOLIC PANEL - Abnormal; Notable for the following: Potassium 3.4 (*) 3.5 - 5.0 mmol/L All other components within normal limitsNT PRO BNPBil Ankle xray: soft tissue swelling without FXProceduresMedical Decision Making / ED CoursePatient presents to the emergency department with lower leg swelling tothe feet and redness. He had had this a couple of weeks ago and wastreated with Bactrim but he only took a couple of doses as the rednessimproved. This morning he woke up with his feet swollen again redness.No fevers or systemic symptoms. Initially the patient and wait quite awhile and was irate in triage. However once he is back in the room he ismuch more calm. Given Toradol which helps. He has a normal white counton CBC. BNP negative. X-ray was soft tissue swelling. I will have himcontinue his Bactrim and I will add on Keflex and naproxen for pain. Hewill follow with PCP and is aware to return for any acute change orworseningED CourseEncounter Diagnosis ICD-10-CM1. Cellulitis of lower extremity, unspecified laterality L03.1192. Dependent edema R60.9PlanThe Patient was DISCHARGED: Counseled patient regarding lab results ANDradiology results AND suspected diagnosis AND need for follow-up. Dischargedhome with verbal and written instructions. They were instructed to returnas needed for persistent or worsening symptoms or any new concerns.Condition at time of disposition: improvedSIGNATURE: NORMA Maher-Yuliana Ovalle (Norma) Pewgtuo12/12/17 1658 Normal [facility] NT Pro BNPon 01-06-2017 PRO B Natr Peptide <5 Normal <125 [facility] Comment on above: Performed By: #### N TBNP ####[facility] [address] [place], [place] [phone] XR ANKLE 3V AP/LAT/OBL LTon 01-06-2017 XR ANKLE 3V AP/LAT/OBL LT * * *Final Report* * *DATE OF EXAM: Jan 06 2017 3:50PM MDX 5298 - XR ANKLE 3V AP/LAT/OBL LT / REASON: Ankle pain * * * * Physician Interpretation * * * * EXAMINATION: XR ANKLE 3V AP/LAT/OBL RT, XR ANKLE 3V AP/LAT/OBL LTCLINICAL HISTORY: PT SUPINE SWELLING AND PAIN IN BOTH ANKLES/ PT SURGERY WHEN HE WAS 19Technique: XR ANKLE 3V AP/LAT/OBL RT, XR ANKLE 3V AP/LAT/OBL LT --bilateral ankles with 3 LT ANK. 3 RT. ANK views on 6 TOTAL imagesComparison: NoneRESULT:Right ankle: An intramedullary sherine with transverse orthopedic screw is seen within the distal right tibia. No radiographic evidence of loosening. There is a deformity of the distal right fibula compatible with remote traumatic injury/healed fracture. No acute fracture is identified. The ankle mortise and talar dome appear intact. There is soft tissue swelling over the right ankle. No radiopaque foreign body.Left ankle: No acute fracture or dislocation. The ankle mortise and talar dome are intact. There is soft tissue swelling over the left ankle. No radiopaque foreign body.IMPRESSION:No acute fracture or dislocation is identified. Soft tissue swelling over bilateral ankles. See result.Moveman: MINERVA Transcribe Date/Time: Jan 06 2017 3:55PDictated by : CRISTINA SHEPHERD MDThis examination was interpreted and the report reviewed and electronically signed by: CRISTINA SHEPHERD MD on Jan 06 2017 3:58PM [id number] [facility] XR ANKLE 3V AP/LAT/OBL RTon 01-06-2017 XR ANKLE 3V AP/LAT/OBL RT * * *Final Report* * *DATE OF EXAM: Jan 06 2017 3:50PM MDX 5297 - XR ANKLE 3V AP/LAT/OBL RT / REASON: Ankle pain * * * * Physician Interpretation * * * * EXAMINATION: XR ANKLE 3V AP/LAT/OBL RT, XR ANKLE 3V AP/LAT/OBL LTCLINICAL HISTORY: PT SUPINE SWELLING AND PAIN IN BOTH ANKLES/ PT SURGERY WHEN HE WAS 19Technique: XR ANKLE 3V AP/LAT/OBL RT, XR ANKLE 3V AP/LAT/OBL LT --bilateral ankles with 3 LT ANK. 3 RT. ANK views on 6 TOTAL imagesComparison: NoneRESULT:Right ankle: An intramedullary sherine with transverse orthopedic screw is seen within the distal right tibia. No radiographic evidence of loosening. There is a deformity of the distal right fibula compatible with remote traumatic injury/healed fracture. No acute fracture is identified. The ankle mortise and talar dome appear intact. There is soft tissue swelling over the right ankle. No radiopaque foreign body.Left ankle: No acute fracture or dislocation. The ankle mortise and talar dome are intact. There is soft tissue swelling over the left ankle. No radiopaque foreign body.IMPRESSION:No acute fracture or dislocation is identified. Soft tissue swelling over bilateral ankles. See result.Moveman: PSCB Transcribe Date/Time: Jan 06 2017 3:55PDictated by : CRISTINA SHEPHERD MDThis examination was interpreted and the report reviewed and electronically signed by: CRISTINA SHEPHERD MD on Jan 06 2017 3:58PM [id number] [facility] ED NOTEon 12-27-2016 ED NOTE HNO ID: [id number] thor: Vida Sutton) SHIREEN Abrahamervice: NursingAuthor Type: Registered NurseType: ED NotesFiled: 12/29/2016 11:44 AMNote Text:Emergency Services: ED Call Back QuestionnaireSERVICE DATE: 12/27/2016Are you feeling better? YesAny questions about discharge instructions and follow-up care? NoWere you able to make a follow up appointment? No, referred to appointmenthotline pt was given a list of urologists in the [place] area since he hastransportation issuesDo you have any further questions? NoIs there anything that we could have done differently to improve your EDvisit? NoSIGNATURE: Vida Abraham RN PATIENT NAME: Matty WhitlockDATE: December 29, 2016 : 11:40 AM [facility] ED NOTE HNO ID: [id number] thor: Arjun Sutton) SHIREEN Aguileraervice: (none)Author Type: Registered NurseType: ED NotesFiled: 12/27/2016 8:18 AMNote Text:Pt presented to ED with C/O testicle pain and testicular changes. Ptbelieves he may have an infection. He sts he has noticed some greendischarge from his penis [facility] ED PROV NOTEon 12-27-2016 ED PROV NOTE HNO ID: [id number] thor: Che Lerner MDService: (none)Author Type: PhysicianType: ED Provider NotesFiled: 12/27/2016 8:27 AMNote Text:ED Provider NotePatient Name: Matty WhitlockMRN: [id number] DATE: 12/27/16HistoryPatient presents with:Testicular PainHPI Comments: History of present illness: 26-year-old male presents forGreen semen. Patient states he has not been sexually active with anotherfor over a month. He states after masturbating he noted his semen wasmorbidly green colored and white. He also noted his scrotum was rolled upthis morning and was concerned so came in. On route to the ED he reallyhas no complaints. Patient denies any fevers or chills. He denies anydysuria. No frequency of urination and no other problems.PAST MEDICAL HISTORYDiagnosis Date- Bipolar 1 disorder (HCC)- Psychiatric disorder depressionPAST SURGICAL HISTORYProcedure Laterality Date- ORTHOPEDICS SURGERY HXNo family history on file.Social HistorySocial History Main Topics- Smoking status: Current Every Day Smoker Packs/day: 1.00 Types: Cigarettes- Smokeless tobacco: None- Alcohol use Yes Comment: occasional- Drug use: Yes Special: Crystal Meth, Marijuana- Sexual activity: Not AskedALLERGIESNo Known AllergiesReview of SystemsConstitutional: Negative.HENT: Negative.Eyes: Negative.Respiratory: Negative.Cardiovascular: Negative.Gastrointestinal: Negative.Endocrine: Negative.Genitourinary: The history of present illnessMusculoskeletal: Negative.Skin: Negative.Allergic/Immunolo gic: Negative.Neurological: Negative.Hematological: Negative.Psychiatric/Behav ioral: Negative.Physical ExamBP 163/83 Pulse 106 Temp (Src) 98 (Oral) Resp 16 Wt 170 lb(77.1kg) SpO2 98%Physical ExamConstitutional: He is oriented to person, place, and time. He appearswell-developed and well-nourished.HENT:Head: Normocephalic and atraumatic.Right Ear: External ear normal.Left Ear: External ear normal.Nose: Nose normal.Eyes: Conjunctivae and EOM are normal.Neck: Normal range of motion. Neck supple.Genitourinary: Penis normal.Genitourinary Comments: Patient has a small follicular lesion to the baseof the scrotum which is not indurated or inflamed with no discharge.There is no significant cellulitis. Testicles are normal and midlinepalpation with no tenderness whatsoever. No penile discharge.Musculoskeletal: Normal range of motion.Neurological: He is alert and oriented to person, place, and time. Nocranial nerve deficit.No gross deficitsSkin: Skin is warm and dry. He is not diaphoretic.Psychiatric: He has a normal mood and affect. His behavior is normal.Judgment and thought content normal.Diagnostic TestingED Labs Ordered and Reviewed - No data to displayProceduresMedical Decision Making / ED CourseED Course patient was treated with ecchymotic ointment and advised to follow upurology in regards to his ejaculation issue. Patient has no tenderness orfindings on exam to suggest a significant tear in the ED. He has not beensexually active with another person for over a month. Since he has notbeen sexually active and he does not think this is an STD. Metro thatmedication related. Patient will be titrated topical antibiotic for thesmall follicular lesion and will follow-up with urology.Encounter Diagnosis ICD-10-CM1. Folliculitis L73.9PlanThe Patient was DISCHARGED: Counseled patient regarding suspecteddiagnosis AND need for follow-up. Discharged home with verbal and writteninstructions. They were instructed to return as needed for persistent orworsening symptoms or any new concerns.Condition at time of disposition: stableSIGNATURE: Makeda Stanton MD12/27/16 0827 Normal [facility] Basic Metabolic Panlon 11-30 Anion gap 13 mmol/L Normal 0-15 [facility] Comment on above: Performed By: #### B MP ####[facility] [id number] [place] [phone] Calcium 9.5 mg/dL Normal 8.5-10.5 [facility] Comment on above: Performed By: #### B MP ####[facility] [address] [place] [phone] Chloride 96 mmol/L Low 98-110 [facility] Comment on above: Performed By: #### B MP ####[facility] [address] [place] [address] CO2 27 mmol/L Normal 23-32 [facility] Comment on above: Performed By: #### B MP ####[facility] [address] [place] [address] Creatinine 1.01 mg/dL Normal 0.70-1.40 [facility] Comment on above: Performed By: #### B MP ####[facility] [address] [place] [address] eGFR (non-black) mL/min/{1.73_m2} Normal [facility] Comment on above: Result Comment: eGFR (Estimated GFR) Units of measure: mL/min/1.73 meters squaredeGFR is derived from the reexpressed MDRD Study equation using the following parameters: serum creatinine, age, gender and race. The creatinine assay has been calibrated to be traceable to IDMS.An eGFR <60 mL/min/1.73m2 for >3 months is consistent with chronic kidney disease. Refer to KDOQI guidelines for clinical interpretation.In patients with unstable renal function, e.g. those with acute kidney injury, the eGFR may not accurately reflect actual GFR. Performed By: #### B MP ####[place] [address] Glucose mass conc 89 mg/dL Normal 65-100 [facility] Comment on above: Performed By: #### B MP ####[place] [address] Potassium molar conc 3.5 mmol/L Normal 3.5-5.0 [facility] Comment on above: Performed By: #### B MP ####[place] [address] Sodium 136 mmol/L Normal 135-146 [facility] Comment on above: Performed By: #### B MP ####[place] [address] Urea nitrogen 13 mg/dL Normal 10-25 [facility] Comment on above: Performed By: #### B MP ####[place] [address] CBC and Differentialon 11-30 Abs Baso 0.03 k/uL Normal 0.00-0.10 [facility] Comment on above: Performed By: #### C BCDIF ####[facility] [address] [place] [address] Abs Noble 1.00 k/uL High 0.00-0.86 [facility] Comment on above: Performed By: #### C BCDIF ####[place] [address] Abs Neut 9.39 k/uL High 1.45-7.50 [facility] Comment on above: Performed By: #### C BCDIF ####[place] [address] Basophils/100 WBC Auto (Bld) 0.2 % Normal [facility] Comment on above: Performed By: #### C BCDIF ####[place] [address] Eosinophils 0.32 10*3/uL Normal 0.00-0.45 [facility] Comment on above: Performed By: #### C BCDIF ####[place] [address] Eosinophils/100 leukocytes 2.5 % Normal [facility] Comment on above: Performed By: #### C BCDIF ####[place] [address] Erythrocyte distribution width Auto Ratio (RBC) 13.4 % Normal 11.5-15.0 [facility] Comment on above: Performed By: #### C BCDIF ####[place] [address] Erythrocytes (RBC) 4.82 10*6/uL Normal 4.20-6.00 [facility] Comment on above: Performed By: #### C BCDIF ####[place] [address] Hematocrit (HCT) 43.5 % Normal 39.0-51.0 [facility] Comment on above: Performed By: #### C BCDIF ####[place] [address] Hemoglobin mass conc (Bld) 14.7 g/dL Normal 13.0-17.0 [facility] Comment on above: Performed By: #### C BCDIF ####[facility] [address] [place] [address] Lymphocytes 1.81 10*3/uL Normal 1.00-4.00 [facility] Comment on above: Performed By: #### C BCDIF ####[facility] [address] [place] [address] Lymphocytes/100 leukocytes 14.4 % Normal [facility] Comment on above: Performed By: #### C BCDIF ####[facility] [address] [place] [address] MCH 30.5 pG Normal 26.0-34.0 [facility] Comment on above: Performed By: #### C BCDIF ####[place] [address] MCHC mass conc (RBC) 33.8 g/dL Normal 30.5-36.0 [facility] Comment on above: Performed By: #### C BCDIF ####[facility] [address] [place] [address] MCV 90.2 fL Normal 80.0-100.0 [facility] Comment on above: Performed By: #### C BCDIF ####[place] [address] Monocytes/100 leukocytes 8.0 % Normal [facility] Comment on above: Performed By: #### C BCDIF ####[place] [address] Neutrophils/100 WBC Auto (Bld) 74.9 % Normal [facility] Comment on above: Performed By: #### C BCDIF ####[place] [address] Platelet mean volume (PMV) 10.4 fL Normal 9.0-12.7 [facility] Comment on above: Performed By: #### C BCDIF ####[place] [address] Platelets 257 10*3/uL Normal 150-400 [facility] Comment on above: Performed By: #### C BCDIF ####[facility] [address] [place], [place] [phone] WBC (Leukocytes) 12.55 10*3/uL High 3.70-11.00 [facility] Comment on above: Performed By: #### C BCDIF ####[facility] [address] [place] [phone] ED NOTEon 11-30-2016 ED NOTE HNO ID: [id number] Author: Regina Sutton) AZAEL Sommer Service: Nursing Author Type: Registered Nurse Type: ED Notes Filed: 11/30/2016 4:52 PM Note Text: Normal [facility] ED NOTE HNO ID: [id number] thor: Arjun (Rn) SHIREEN Aguileraervice: (none)Author Type: Registered NurseType: ED NotesFiled: 11/30/2016 4:26 PMNote Text:Pt to ED today CC of bilateral leg edema - L worse then right. Pt sts hehas been very depressed lately but denies SI or HI. Normal [facility] ED PROV NOTEon 11-30-2016 ED PROV NOTE HNO ID: [id number] thor: Regina Castelan) ReillyService: Emergency MedicineAuthor Type: Physician AssistantType: ED Provider NotesFiled: 11/30/2016 7:14 PMNote Text:ED Provider NotePatient Name: Matty WhitlockMRN: [id number] DATE: 11/30/16HistoryPatient presents with:Leg EdemaAnxietyHPI Comments: 26 year old male with history of schizoaffective disorderpresents with lower extremity edema worse on the left than the right.Patient reports his left foot is a throbbing pain. He has noticedredness. No fever, chills, or sweats. No paresthesias or weakness. Noloss of function. No injury reported. No history of cellulitis in thepast. In addition patient complains of anxiety. He has a known historyof anxiety. He states he's been anxious his whole life. He stoppedtaking his medications. He denies any suicidal or homicidal ideation. Hestates he feels safe at home. Denies any hallucinations. Currently hasnot been following with his physician that manages his schizoaffectivedisorder. Patient does admit to occasional methamphetamine use. Deniesany IV drug use. He does smoke marijuana. All other review systemsunremarkable.PAST MEDICAL HISTORYDiagnosis Date- Bipolar 1 disorder (HCC)- Psychiatric disorder depressionPAST SURGICAL HISTORYNo date: ORTHOPEDICS SURGERY HXNo family history on file.Social HistorySocial History Main Topics- Smoking status: Current Every Day Smoker- Smokeless tobacco: None- Alcohol use Yes- Drug use: Yes Special: Crystal Meth- Sexual activity: Not AskedALLERGIESNo Known AllergiesReview of SystemsConstitutional: Negative for chills, fatigue and fever.HENT: Negative for congestion, ear pain and sore throat.Eyes: Negative for pain and visual disturbance.Respiratory: Negative for cough, choking, shortness of breath, wheezingand stridor.Cardiovascular: Positive for leg swelling. Negative for chest pain andpalpitations.Gastrointe stinal: Negative for abdominal pain, nausea and vomiting.Musculoskeletal: Negative for back pain, neck pain and neck stiffness.Skin: Positive for color change. Negative for rash and wound.Neurological: Negative for weakness and numbness.Psychiatric/Behav ioral: Negative for behavioral problems, confusion,hallucinations and suicidal ideas. The patient is nervous/anxious.Physical ExamBP 143/88 Pulse 99 Temp (Src) 97.9 (Oral) Resp 16 Wt 175 lb(79.4kg) SpO2 100%Physical ExamConstitutional: He is oriented to person, place, and time. He appearswell-developed and well-nourished.HENT:Head: Normocephalic and atraumatic.Mouth/Throat: Oropharynx is clear and moist.Eyes: EOM are normal. Pupils are equal, round, and reactive to light.Neck: Normal range of motion. Neck supple.Cardiovascular: Regular rhythm. Tachycardia present.Pulmonary/Chest: Effort normal and breath sounds normal. No respiratorydistress. He has no wheezes.Abdominal: Soft. There is no tenderness. There is no rebound and noguarding.Musculoskeletal : He exhibits no tenderness.Left lower; lateral aspect of left lower extremities shows erythema withwarmth to palpation. The Lateral Aspect of the Leg. No Crepitus. NoStreaking. Compartments Soft. 2+ Pedal Pulse. Normal Sensation. GoodCapillary Refill.Right lower; no edema. Neurovascular intact. Compartments soft.Full range of motion of all extremities.Neurological: He is alert and oriented to person, place, and time. Nocranial nerve deficit.Skin: Skin is warm and dry. No rash noted.Psychiatric: He has a normal mood and affect. He expresses no homicidaland no suicidal ideation. He expresses no suicidal plans and no homicidalplans.Patient is anxious. He is redirectable. No suicidal or homicidalideation.Nursing note and vitals reviewed.Diagnostic TestingED Labs Ordered and ReviewedCBC + DIFF - Abnormal; Notable for the following: Result Value Ref Range WBC 12.55 (*) 3.70 - 11.00 k/uL Abs Neut (ANC) 9.39 (*) 1.45 - 7.50 k/uL Abs Noble 1.00 (*) 0.00 - 0.86 k/uL All other components within normal limitsBASIC METABOLIC PNL - Abnormal; Notable for the following: Chloride 96 (*) 98 - 110 mmol/L All other components within normal limitsProceduresMedical Decision Making / ED CourseED CourseOn evaluation patient appears to have cellulitis of left lower extremity.Lab studies were ordered. CBC shows white count of 12.55. BMP overallunremarkable patient did complain of bilateral calf pain. VenousUltrasound was ordered. Venous ultrasound negative. She's exam consistentwith cellulitis of left lower extremity. He'll be treated with Bactrimand Keflex. He was given first doses of both ED. He was sent home withprescription for Keflex and Bactrim. He was made aware of signs andsymptoms of worsening infection which she needs to present back to ED. Ifhe has increased redness, swelling, pain, fever, chills, or sweats patientpresented to ED for further management of the cellulitis. Patient didcomplain of anxiety. He is not suicidal or homicidal. He is answeringquestions properly. He is directable. He was given Atarax for hisanxiety in ED. He is also given a prescription for home. He needs tofollow-up with his psychiatrist. He was referred back to hispsychiatrist. He is also referred back to PCP. Patient discharged homein stable condition.Encounter Diagnosis ICD-10-CM1. Cellulitis of left lower extremity L03.1162. Anxiety F41.9PlanThe Patient was DISCHARGED: Counseled patient regarding lab results ANDsuspected diagnosis AND need for follow-up. Discharged home with verbal andwritten instructions. They were instructed to return as needed forpersistent or worsening symptoms or any new concerns.Given a prescription for the following medication(s): Bactrim and Keflexand AtaraxCondition at time of disposition: stableSIGNATURE: Regina NORMA Monet-Brown (Norma) [id number] [facility] LEG VEIN DVT BILATon 08-0 Bilirubin (total) * * *Final Report* * *DATE OF EXAM: Nov 30 2016 6:19PM GABRIELA 0072 - US LEG VEIN DVT BILAT / REASON: Pain * * * * Physician Interpretation * * * * HISTORY: Bilateral leg painTechnique:Grayscale and color Doppler sonography was performed. Images were stored in a permanent archive.RESULT: Duplex ultrasound deep veins of both lower extremities was performed. The common femoral vein, femoral vein, and popliteal veins show normal flow and compressibility. The visualized calf veins are patent.IMPRESSION:NO EVIDENCE OF DEEP VENOUS THROMBOSISTranscriptionist : MINERVA Transcribe Date/Time: Nov 30 2016 6:24PDictated by : JUDIE ALONSO MDThis examination was interpreted and the report reviewed and electronically signed by: JUDIE ALONSO MD on Nov 30 2016 6:25PM [facility] Vital Signs Date Time Vital Sign Value Performing Clinician Facility 11-01-2024 19:48-0400 Body temperature 98.2 [degF] Dr. Laine Dye MD Work Phone: [facility] 11-01-2024 19:48-0400 Diastolic blood pressure 66 mm[Hg] Dr. Laine Dye MD Work Phone: [facility] 11-01-2024 19:48-0400 Heart rate 65 /min Dr. Laine Dye MD Work Phone: [facility] 11-01-2024 19:48-0400 Respiratory rate 16 /min Dr. Laine Dye MD Work Phone: [facility] 11-01-2024 19:48-0400 SaO2% (BldA) [Mass fraction] 98 % Dr. Laine Dye MD Work Phone: [facility] 11-01-2024 19:48-0400 Systolic blood pressure 117 mm[Hg] Dr. Laine Dye MD Work Phone: [facility] 11-01-2024 14:23-0400 Body height 170.[address] Laine Dye MD Work Phone: [facility] 11-01-2024 14:23-0400 Body mass index (BMI) [Ratio] 30 kg/m2 Dr. Laine Dye MD Work Phone: [facility] 11-01-2024 14:23-0400 Body weight 86.[address] Laine Dye MD Work Phone: [facility] 10-21-2024 13:00-0400 Body temperature 97.9 [degF] Dr. Laine Dye MD Work Phone: [facility] 10-21-2024 13:00-0400 Diastolic blood pressure 67 mm[Hg] Dr. Laine Dye MD Work Phone: [facility] 10-21-2024 13:00-0400 Heart rate 48 /min Dr. Laine Dye MD Work Phone: [facility] 10-21-2024 13:00-0400 Respiratory rate 16 /min Dr. Laine Dye MD Work Phone: [facility] 10-21-2024 13:00-0400 SaO2% (BldA) [Mass fraction] 95 % Dr. Laine Dye MD Work Phone: [facility] 10-21-2024 13:00-0400 Systolic blood pressure 105 mm[Hg] Dr. Laine Dye MD Work Phone: [facility] 10-21-2024 11:14-0400 Body height 170.[address] Laine Dye MD Work Phone: [facility] 10-21-2024 11:14-0400 Body mass index (BMI) [Ratio] 27.9 kg/m2 Dr. Laine Dye MD Work Phone: [facility] 10-21-2024 11:14-0400 Body weight [address] Laine Dye MD Work Phone: [facility] 10-19-2024 16:54-0400 Body temperature 97.2 [degF] Dr. Laine Dye MD Work Phone: [facility] 10-19-2024 16:54-0400 Diastolic blood pressure 65 mm[Hg] Dr. Laine Dye MD Work Phone: [phone] [place] [address] 10-19-2024 16:54-0400 Heart rate 80 /min Dr. Laine Dye MD Work Phone: [phone])[phone] [place] [address] 10-19-2024 16:54-0400 Respiratory rate 18 /min Dr. Laine Dye MD Work Phone: [facility] 10-19-2024 16:54-0400 SaO2% (BldA) [Mass fraction] 99 % Dr. Laine Dye MD Work Phone: [facility] 10-19-2024 16:54-0400 Systolic blood pressure 117 mm[Hg] Dr. Laine Dye MD Work Phone: [facility] 10-19-2024 12:17-0400 Body height 170.[address] Laine Dye MD Work Phone: [facility] 10-19-2024 12:17-0400 Body mass index (BMI) [Ratio] 29.1 kg/m2 Dr. Laine Dye MD Work Phone: [facility] 10-19-2024 12:17-0400 Body weight 84.[address] Laine Dye MD Work Phone: [facility] 08-12-2024 20:38-0400 Body temperature 98.2 [degF] Dr. Laine Dye MD Work Phone: [facility] 08-12-2024 20:38-0400 Diastolic blood pressure 61 mm[Hg] Dr. Laine Dye MD Work Phone: [facility] 08-12-2024 20:38-0400 Heart rate 77 /min Dr. Laine Dye MD Work Phone: [facility] 08-12-2024 20:38-0400 Respiratory rate 16 /min Dr. Laine Dye MD Work Phone: [facility] 08-12-2024 20:38-0400 SaO2% (BldA) [Mass fraction] 98 % Dr. Laine Dye MD Work Phone: [facility] 08-12-2024 20:38-0400 Systolic blood pressure 104 mm[Hg] Dr. Laine Dye MD Work Phone: [facility] 08-12-2024 15:26-0400 Body height 170.[address] Laine Dye MD Work Phone: [facility] 08-12-2024 15:26-0400 Body mass index (BMI) [Ratio] 31.7 kg/m2 Dr. Laine Dye MD Work Phone: [facility] 08-12-2024 15:26-0400 Body weight 91.[address] Laine Dye MD Work Phone: [facility] 07-11-2024 15:39-0400 Body temperature 98.1 [degF] Dr. Laine Dye MD Work Phone: [facility] 07-11-2024 15:39-0400 Diastolic blood pressure 84 mm[Hg] Dr. Laine Dye MD Work Phone: [facility] 07-11-2024 15:39-0400 Heart rate 77 /min Dr. Laine Dye MD Work Phone: [facility] 07-11-2024 15:39-0400 Respiratory rate 16 /min Dr. Laine Dye MD Work Phone: [facility] 07-11-2024 15:39-0400 SaO2% (BldA) [Mass fraction] 95 % Dr. Laine Dye MD Work Phone: [facility] 07-11-2024 15:39-0400 Systolic blood pressure 128 mm[Hg] Dr. Laine Dye MD Work Phone: [facility] 07-11-2024 10:53-0400 Body height 170.[address] Laine Dye MD Work Phone: [facility] 07-11-2024 10:53-0400 Body mass index (BMI) [Ratio] 32.8 kg/m2 Dr. Laine Dye MD Work Phone: [facility] 07-11-2024 10:53-0400 Body weight 95.[address] Laine Dye MD Work Phone: [facility] 01-06-2024 00:03-0400 Heart rate 78 /min Sylvester Ramirez Work Phone: [facility] 01-06-2024 00:03-0400 Respiratory rate 20 /min Sylvester Ramirez Work Phone: [facility] 01-05-2024 21:57-0400 Body height 165.1 cm Sylvester Ramirez Work Phone: [facility] 01-05-2024 21:57-0400 Body temperature 98.78 [degF] Sylvester Ramirez Work Phone: [facility] 01-05-2024 21:57-0400 Body weight 68.03 kg Sylvester Ramirez Work Phone: [facility] 01-05-2024 21:57-0400 Diastolic blood pressure 79 mm[Hg] Sylvester lemus Work Phone: [facility] 01-05-2024 21:57-0400 SaO2% (BldA) [Mass fraction] 97 % Sylvester Ramirez Work Phone: [facility] 01-05-2024 21:57-0400 Systolic blood pressure 124 mm[Hg] Sylvester Ramirez Work Phone: [facility] 11-30-2023 12:00-0400 Heart rate 93 /min Sylvester Ramirez Work Phone: [facility] 11-30-2023 12:00-0400 Respiratory rate 18 /min Sylvester Ramirez Work Phone: [facility] 11-30-2023 12:00-0400 SaO2% (BldA) [Mass fraction] 98 % Sylvester Ramirez Work Phone: [facility] 11-30-2023 08:00-0400 Diastolic blood pressure 83 mm[Hg] Sylvester Orosco n Work Phone: [facility] 11-30-2023 08:00-0400 Systolic blood pressure 104 mm[Hg] Sylvester Ramirez Work Phone: [facility] 11-30-2023 02:21-0400 Body height 170.18 cm Sylvester Ramirez Work Phone: [facility] 11-30-2023 02:21-0400 Body temperature 98.42 [degF] Sylvester Ramirez Work Phone: [facility] 11-30-2023 02:21-0400 Body weight 64.86 kg Sylvester Ramirez Work Phone: [facility] 09-01-2023 03:58-0400 Respiratory rate 16 /min Ze Palmer Jr., DO Work Phone: [facility] 09-01-2023 03:58-0400 SaO2% (BldA) [Mass fraction] 99 % Ze Palmer Jr., DO Work Phone: [facility] 08-31-2023 22:39-0400 Body mass index (BMI) [Ratio] 24.43 kg/m2 Ze Palmer Jr., DO Work Phone: [facility] [place] 08-31-2023 22:39-0400 Body temperature 98.01 [degF] Zedavidson Palmer Jr., DO Work Phone: [facility] [place] 08-31-2023 22:39-0400 Body weight 70.76 kg Zedavidson Palmer Jr., DO Work Phone: [facility] [place] 08-31-2023 22:39-0400 Diastolic blood pressure 63 mm[Hg] Ze Prieto i, Jr., DO Work Phone: [facility] [place] 08-31-2023 22:39-0400 Heart rate 94 /min Ze Palmer Jr., DO Work Phone: [facility] [place] 08-31-2023 22:39-0400 Systolic blood pressure 121 mm[Hg] Zedavidson Palmer Jr., DO Work Phone: [facility] [place] 08-11-2023 05:00-0400 Diastolic blood pressure 76 mm[Hg] Wessandra Jackson D O Work Phone: [facility] 08-11-2023 05:00-0400 Heart rate 82 /min Wes Sushilrmindy DO Work Phone: [facility] 08-11-2023 05:00-0400 Respiratory rate 17 /min Wes Sushilrnyflorence DO Work Phone: [facility] 08-11-2023 05:00-0400 SaO2% (BldA) [Mass fraction] 98 % Wes Sushilrnyflorence DO Work Phone: [facility] 08-11-2023 05:00-0400 Systolic blood pressure 120 mm[Hg] Wes Sushilrnyflorence DO Work Phone: [facility] 08-10-2023 20:48-0400 Body height 177.8 cm Wes Csernyflorence DO Work Phone: [facility] 08-10-2023 20:48-0400 Body mass index (BMI) [Ratio] 21.52 kg/m2 Wes Jackson DO Work Phone: [facility] 08-10-2023 20:48-0400 Body temperature 98.01 [degF] Wes Jackson DO Work Phone: [facility] 08-10-2023 20:48-0400 Body weight 68.04 kg Wes Jackson DO Work Phone: [facility] 07-02-2023 07:00-0500 Respiratory rate 16 /min [facility] 07-02-2023 06:07-0500 Diastolic blood pressure 79 mm[Hg] [facility] 07-02-2023 06:07-0500 Heart rate 69 /min [facility] 07-02-2023 06:07-0500 SaO2% (BldA) [Mass fraction] 97 % [facility] 07-02-2023 06:07-0500 Systolic blood pressure 124 mm[Hg] [facility] 07-02-2023 00:10-0500 Body height 170.18 cm [facility] 07-02-2023 00:10-0500 Body mass index (BMI) [Ratio] 24.3 kg/m2 [facility] 07-02-2023 00:10-0500 Body temperature 98 [degF] [facility] 07-02-2023 00:10-0500 Body weight 70.3 kg [facility] 05-28-2023 13:29-0500 Body height 170.18 cm [facility] 05-28-2023 13:29-0500 Body mass index (BMI) [Ratio] 24 kg/m2 [facility] 05-28-2023 13:29-0500 Body temperature 97.2 [degF] [facility] 05-28-2023 13:29-0500 Body weight 69.8 kg [facility] 05-28-2023 13:29-0500 Diastolic blood pressure 92 mm[Hg] [facility] 05-28-2023 13:29-0500 Heart rate 82 /min [facility] 05-28-2023 13:29-0500 Respiratory rate 18 /min [facility] 05-28-2023 13:29-0500 SaO2% (BldA) [Mass fraction] 99 % [facility] 05-28-2023 13:29-0500 Systolic blood pressure 124 mm[Hg] [facility] 01-04-2023 20:48-0400 SaO2% (BldA) [Mass fraction] 9 % LAINE DYE [facility] Comment on above: Order Comment: Specimen Type: ARTERIAL B LOOD SPECIMENOrdering Facility: [facility] Address: [place] [address] Performed By: #### A LLBG ####[facility] LABORATORYCLIA [id number] [place] [address] [place] 01-04-2023 15:54-0400 Body temperature 98.1 [degF] [facility] 01-04-2023 15:54-0400 Diastolic blood pressure 64 mm[Hg] [facility] 01-04-2023 15:54-0400 Heart rate 74 /min [facility] 01-04-2023 15:54-0400 Respiratory rate 16 /min [facility] 01-04-2023 15:54-0400 SaO2% (BldA) [Mass fraction] 95 % [facility] 01-04-2023 15:54-0400 Systolic blood pressure 103 mm[Hg] [facility] 01-04-2023 14:40-0400 Body height 170.18 cm [facility] 01-04-2023 14:40-0400 Body mass index (BMI) [Ratio] 25.7 kg/m2 [facility] 01-04-2023 14:40-0400 Body weight 74.5 kg [facility] 09-17-2022 01:48-0400 Body mass index (BMI) [Ratio] 27.9 kg/m2 [facility] 09-17-2022 01:48-0400 Body temperature 97.8 [degF] [facility] 09-17-2022 01:48-0400 Body weight 81 kg [facility] 09-17-2022 01:48-0400 Diastolic blood pressure 83 mm[Hg] [facility] 09-17-2022 01:48-0400 Heart rate 89 /min [facility] 09-17-2022 01:48-0400 Respiratory rate 18 /min [facility] 09-17-2022 01:48-0400 SaO2% (BldA) [Mass fraction] 97 % [facility] 09-17-2022 01:48-0400 Systolic blood pressure 128 mm[Hg] [facility] 09-03-2022 23:13-0400 Heart rate 95 /min [facility] 09-03-2022 23:13-0400 Respiratory rate 15 /min [facility] 09-03-2022 23:13-0400 SaO2% (BldA) [Mass fraction] 99 % [facility] 09-03-2022 22:21-0400 Diastolic blood pressure 100 mm[Hg] [facility] 09-03-2022 22:21-0400 Systolic blood pressure 129 mm[Hg] [facility] 09-03-2022 22:03-0400 Body mass index (BMI) [Ratio] 26.5 kg/m2 [facility] 09-03-2022 22:03-0400 Body weight 76.8 kg [facility] 09-03-2022 21:22-0400 Body height 170.18 cm [facility] 09-03-2022 21:22-0400 Body temperature 97.8 [degF] [facility] 07-16-2022 15:23-0400 Body temperature 97.81 [degF] Rusty Townsend TRANSFER AND LINE UP WORKER.FHA UNDERWRITER Work Phone: [facility] 07-16-2022 15:23-0400 Body weight 81.28 kg Rusty Townsend TRANSFER AND LINE UP WORKER.FHA UNDERWRITER Work Phone: [facility] 07-16-2022 15:23-0400 Diastolic blood pressure 84 mm[Hg] Rusty Townsend TRANSFER AND LINE UP WORKER.FHA UNDERWRITER Work Phone: [facility] 07-16-2022 15:23-0400 Heart rate 82 /min Rusty Townsend TRANSFER AND LINE UP WORKER.FHA UNDERWRITER Work Phone: [facility] 07-16-2022 15:23-0400 Respiratory rate 18 /min Rusty Townsend TRANSFER AND LINE UP WORKER.FHA UNDERWRITER Work Phone: [facility] 07-16-2022 15:23-0400 SaO2% (BldA) [Mass fraction] 98 % Rusty Townsend TRANSFER AND LINE UP WORKER.FHA UNDERWRITER Work Phone: [facility] 07-16-2022 15:23-0400 Systolic blood pressure 136 mm[Hg] Rusty Townsend TRANSFER AND LINE UP WORKER.FHA UNDERWRITER Work Phone: [facility] 06-27-2022 16:42-0500 Body temperature 98.49 [degF] Sharon Evans APRN.FHA UNDERWRITER Work Phone: [facility] 06-27-2022 16:42-0500 Body weight 83.28 kg Sharon Evans APRN.FHA UNDERWRITER Work Phone: [facility] 06-27-2022 16:42-0500 Diastolic blood pressure 88 mm[Hg] Sharon Evans APRN.FHA UNDERWRITER Work Phone: [facility] 06-27-2022 16:42-0500 Heart rate 87 /min Sharon Evans APRN.FHA UNDERWRITER Work Phone: [facility] 06-27-2022 16:42-0500 Respiratory rate 18 /min Sharon Evans APRN.FHA UNDERWRITER Work Phone: [facility] 06-27-2022 16:42-0500 SaO2% (BldA) [Mass fraction] 98 % Sharon Evans APRN.FHA UNDERWRITER Work Phone: [facility] 06-27-2022 16:42-0500 Systolic blood pressure 132 mm[Hg] Sharon Evans APRN.FHA UNDERWRITER Work Phone: [facility] 06-18-2022 17:34-0500 Body height 170.18 cm [facility] 06-18-2022 17:34-0500 Body mass index (BMI) [Ratio] 27.7 kg/m2 [facility] 06-18-2022 17:34-0500 Body temperature 98 [degF] [facility] 06-18-2022 17:34-0500 Body weight 80.3 kg [facility] 06-18-2022 17:34-0500 Diastolic blood pressure 79 mm[Hg] [facility] 06-18-2022 17:34-0500 Heart rate 119 /min [facility] 06-18-2022 17:34-0500 Respiratory rate 16 /min [facility] 06-18-2022 17:34-0500 SaO2% (BldA) [Mass fraction] 95 % [facility] 06-18-2022 17:34-0500 Systolic blood pressure 104 mm[Hg] [facility] 12-27-2021 17:38-0400 Diastolic blood pressure 78 mm[Hg] Dr. Laine Dye Work Phone: [facility] Work Phone: 12-27-2021 17:38-0400 Heart rate 66 /min Dr. Laine Dye Work Phone: [facility] Work Phone: 12-27-2021 17:38-0400 Respiratory rate 14 /min Dr. Laine Dye Work Phone: [facility] Work Phone: 12-27-2021 17:38-0400 SaO2% (BldA) [Mass fraction] 98 % Dr. Laine Dye Work Phone: [facility] Work Phone: 12-27-2021 17:38-0400 Systolic blood pressure 135 mm[Hg] Dr. Laine Dye Work Phone: [facility] Work Phone: 12-27-2021 15:05-0400 Body height 170.[address] Laine Dye Work Phone: [facility] Work Phone: 12-27-2021 15:05-0400 Body mass index (BMI) [Ratio] 28.1 kg/m2 Dr. Laine Dye Work Phone: [facility] Work Phone: 12-27-2021 15:05-0400 Body temperature 97.1 [degF] Dr. Laine Dye Work Phone: [facility] Work Phone: 12-27-2021 15:05-0400 Body weight 81.[address] Laine Dye Work Phone: [facility] Work Phone: 09-06-2021 09:17-0400 Diastolic blood pressure 71 mm[Hg] Dr. Laine Dye Work Phone: [facility] Work Phone: 09-06-2021 09:17-0400 Heart rate 88 /min Dr. Laine Dye Work Phone: [facility] Work Phone: 09-06-2021 09:17-0400 Respiratory rate 14 /min Dr. Laine Dye Work Phone: [facility] Work Phone: 09-06-2021 09:17-0400 SaO2% (BldA) [Mass fraction] 97 % Dr. Laine Dye Work Phone: [facility] Work Phone: 09-06-2021 09:17-0400 Systolic blood pressure 138 mm[Hg] Dr. Laine Dye Work Phone: [facility] Work Phone: 09-06-2021 07:08-0400 Body mass index (BMI) [Ratio] 29 kg/m2 Dr. Laine Dye Work Phone: [facility] Work Phone: 09-06-2021 07:08-0400 Body temperature 97.9 [degF] Dr. Laine Dye Work Phone: [facility] Work Phone: 09-06-2021 07:08-0400 Body weight 83.[address] Laine Dye Work Phone: [facility] Work Phone: 09-01-2021 23:15-0400 Diastolic blood pressure 80 mm[Hg] [facility] Work Phone: 09-01-2021 23:15-0400 Heart rate 87 /min [facility] Work Phone: 09-01-2021 23:15-0400 Respiratory rate 16 /min [facility] Work Phone: 09-01-2021 23:15-0400 SaO2% (BldA) [Mass fraction] 97 % [facility] Work Phone: 09-01-2021 23:15-0400 Systolic blood pressure 120 mm[Hg] [facility] Work Phone: 09-01-2021 20:58-0400 Body height 170.18 cm [facility] Work Phone: 09-01-2021 20:58-0400 Body mass index (BMI) [Ratio] 28.1 kg/m2 [facility] Work Phone: 09-01-2021 20:58-0400 Body temperature 97 [degF] [facility] Work Phone: 09-01-2021 20:58-0400 Body weight 81.64 kg [facility] Work Phone: 03-24-2021 22:03-0500 Body height 170.2 cm KACIE WELLS MD [facility] 03-24-2021 22:03-0500 Body temperature 98.24 [degF] KACIE WELLS MD [facility] 03-24-2021 22:03-0500 Body weight 86.4 kg KACIE WELLS MD [facility] 03-24-2021 22:03-0500 Diastolic blood pressure 82 mm[Hg] KACIE WELLS MD [facility] 03-24-2021 22:03-0500 Heart rate 99 /min KACIE WELLS MD [facility] 03-24-2021 22:03-0500 Respiratory rate 24 /min KACIE WELLS MD [facility] 03-24-2021 22:03-0500 Systolic blood pressure 146 mm[Hg] KACIE WELLS MD [facility] 03-22-2021 19:09-0500 Diastolic blood pressure 70 mm[Hg] ONEL CRAMER MD [facility] 03-22-2021 19:09-0500 Heart rate 95 /min ONEL CRAMER MD [facility] 03-22-2021 19:09-0500 Respiratory rate 16 /min ONEL CRAMER MD [facility] 03-22-2021 19:09-0500 Systolic blood pressure 108 mm[Hg] ONEL Lopez [facility] 03-22-2021 17:54-0500 Diastolic blood pressure 76 mm[Hg] ONEL CRAMER MD [facility] 03-22-2021 17:54-0500 Heart rate 88 /min ONEL CRAMER MD [facility] 03-22-2021 17:54-0500 Respiratory rate 16 /min ONEL CRAMER MD [facility] 03-22-2021 17:54-0500 Systolic blood pressure 128 mm[Hg] ONEL Lopez [facility] 03-22-2021 15:32-0500 Body height 170 cm ONEL CRAMER MD [facility] 03-22-2021 15:32-0500 Body temperature 98.6 [degF] ONEL CRAMER MD [facility] 03-22-2021 15:32-0500 Body weight 86.5 kg ONEL CRAMER MD [facility] 03-22-2021 15:32-0500 Diastolic blood pressure 79 mm[Hg] ONEL CRAMER MD [facility] 03-22-2021 15:32-0500 Heart rate 90 /min ONEL CRAMER MD [facility] 03-22-2021 15:32-0500 Respiratory rate 18 /min ONEL CRAMER MD [facility] 03-22-2021 15:32-0500 Systolic blood pressure 108 mm[Hg] ONEL Lopez [facility] 03-08-2021 20:18-0500 Body height 170.2 cm ZE WHITT DO [facility] 03-08-2021 20:18-0500 Body temperature 98.42 [degF] ZE WHITT DO [facility] 03-08-2021 20:18-0500 Body weight 89.5 kg ZE WHITT DO [facility] 03-08-2021 20:18-0500 Diastolic blood pressure 72 mm[Hg] ZE WHITT DO [facility] 03-08-2021 20:18-0500 Heart rate 108 /min ZE WHITT DO [facility] 03-08-2021 20:18-0500 Respiratory rate 22 /min ZE WHITT DO [facility] 03-08-2021 20:18-0500 Systolic blood pressure 142 mm[Hg] ZE WHITT D O [facility] Encounters Encounter Date Encounter Type Care Provider Facility Start: 11-09-2024 End: 11-09-2024 Patient encounter procedure Yoselyn GREEN -[facility] Work Phone: Start: 11-09-2024 End: 11-09-[address] Laine Dye MD Work Phone: -[facility] Start: 11-07-2024 End: 11-07-2024 Refill Laine Dye MD Work Phone: [facility] Comment on above: Moderate persistent asthma, unspecified whether complicated Start: 11-06-2024 End: 11-06-2024 ambulatory Candace Bourne RN NURSE [employer] Comment on above: Medication Question Start: 11-01-2024 End: 11-01-2024 Emergency department patient visit Dr. Laine Dye MD Work Phone: -Emergency Department Work Phone: Start: 10-21-2024 Non-patient / Non-visit Vishnu Andrade nd DO -[facility] Start: 10-21-2024 End: 10-21-2024 Admission to same day surgery center Vishnu Herndon DO -Endoscopy Work Phone: Start: 10-21-2024 End: 10-21-[address] Laine Dye MD Work Phone: -Endoscopy Start: 10-19-2024 End: 10-19-2024 Emergency department patient visit Dr. Laine Dye MD Work Phone: -Emergency Department Work Phone: Start: 08-22-2024 End: 08-22-2024 Patient encounter procedure Yoselyn GREEN -Laboratory Specimen Work Phone: Start: 08-22-2024 End: 08-22-2024 ambulatory Yoselyn Ceja Facility:[facility] Start: 08-18-2024 End: 08-18-2024 Patient encounter procedure Yoselyn GREEN -[facility] Work Phone: Start: 08-18-2024 End: 08-18-2024 ambulatory Laine Dye Facility:[facility] Start: 08-12-2024 End: 08-12-2024 Emergency department patient visit Dr. Laine Dye MD Work Phone: -Emergency Department Work Phone: Start: 08-12-2024 End: 08-12-2024 Telephone encounter Laine Dye MD Work Phone: [facility] Comment on above: Medication Problem Start: 08-04-2024 End: 08-04-2024 Refill Laine Dye MD Work Phone: [facility] Start: 07-11-2024 End: 07-11-2024 Emergency department patient visit Dr. Laine Dye MD Work Phone: -Emergency Department Work Phone: Start: 07-04-2024 End: 07-04-2024 Refill Siri Gómez TRANSFER AND LINE UP WORKER - FHA UNDERWRITER Work Phone: [facility] Comment on above: Tobacco use Start: 04-14-2024 End: 04-14-2024 ambulatory Jessica Mann RN [facility] Clinical Communication Start: 04-14-2024 End: 04-14-2024 Patient encounter procedure [facility] Start: 02-05-2024 End: 02-05-2024 Patient encounter procedure Enrique Garcia TRANSFER AND LINE UP WORKER.FHA UNDERWRITER Work Phone: [facility] Comment on above: Procedure not hector d out (Primary Dx) Start: 02-05-2024 End: 02-05-2024 Emergency department patient visit Florentino Cardona Facility:[facility] Start: 02-05-2024 End: 02-05-2024 ambulatory LAINE DYE Facility:[facility] Start: 01-05-2024 End: 01-06-2024 Emergency department patient visit Sylvester Ramirez Work Phone: [facility] Work Phone: Start: 12-27-2023 Emergency department patient visit LAINE DYE Facility:[id number] Start: 12-27-2023 End: 12-27-2023 Admission to establishment [facility] Start: 12-27-2023 End: 12-27-2023 ambulatory [facility] Comment on above: Psychosis Start: 12-26-2023 End: 12-27-2023 Emergency department patient visit LAINE DYE Facility:[id number] Start: 11-30-2023 End: 11-30-2023 Emergency department patient visit Sylvester Ramirez Work Phone: [facility]EM[facility] Work Phone: Start: 09-14-2023 End: 09-15-2023 Emergency department patient visit LAINE DYE Facility:[id number] Start: 09-14-2023 Admission to [facility] Work [facility]: [facility] Start: 09-14-2023 ambulatory Genaro Harley [facility] Work Phone: [facility] Comment on above: Psychiatric Problem Start: 09-01-2023 End: 09-01-2023 Emergency department patient visit MARLENA HOFFMAN Facility:[facility] Start: 08-31-2023 End: 09-01-2023 Emergency department patient visit Ze J Spencer DO Work Phone: [facility] Emergency Dept Comment on above: Nonintractable heada chantelle, unspecified chronicity pattern, unspecified headache type (Primary Dx); Pain of hand, unspecified laterality Start: 08-11-2023 End: 08-12-2023 ambulatory [facility] Start: 08-11-2023 End: 08-11-2023 Subsequent hospital visit by physician Gen Solo Nunez [facility] Comment on above: Arrived Start: 08-10-2023 End: 08-11-2023 Emergency department patient visit [facility] Start: 08-10-2023 End: 08-11-2023 Emergency department patient visit Wes J Csernyik DO Work Phone: [facility] Emergency Medicine Comment on above: Acute psychosis (Mul ti) (Primary Dx); Alcohol intoxication with delirium ([facility]); Cannabis use disorder; Complicated laceration of hand, right, initial encounter Start: 07-02-2023 End: 07-02-2023 Emergency department patient visit [facility] Work Phone: Start: 05-28-2023 End: 05-28-2023 Emergency department patient visit [facility] Work Phone: Start: 01-04-2023 Emergency department patient visit LAINE DYE [facility] Start: 01-04-2023 End: 01-04-2023 [facility] Start: 09-17-2022 End: 09-17-2022 [facility] Start: 09-03-2022 End: 09-03-2022 Emergency department patient visit [facility] Start: 08-04-2022 Refill Laine Dye MD Work Phone: [facility] Clinical Communication Start: 07-16-2022 End: 07-16-2022 Patient encounter procedure Rusty Townsend APRN.FHA UNDERWRITER Work Phone: [facility] Comment on above: Diarrhea, unspecifie d type (Primary Dx) Start: 06-27-2022 End: 06-27-2022 Patient encounter procedure Sharon Evans APRN.FHA UNDERWRITER Work Phone: [facility] Comment on above: Throat pain (Primary Dx) Start: 06-18-2022 End: 06-18-2022 [facility] Start: 05-16-2022 Telephone encounter Laine Pratt MD Work Phone: [facility] Comment on above: Med Refill Start: 04-28-2022 Juani Dye MD Work Phone: [facility] Start: 12-27-2021 End: 12-27-2021 Emergency department patient visit Dr. Laine Dye Work Phone: [facility]Emergency Department Start: 09-06-2021 End: 09-06-2021 Emergency department patient visit Dr. Laine Dye Work Phone: [facility]Emergency Department Start: 09-06-2021 Non-patient / Non-visit Dr. Ruano Work Phone: [facility] Start: 09-01-2021 End: 09-01-2021 Emergency department patient visit [facility] Start: 03-24-2021 End: 03-24-2021 Emergency department patient visit KACIE WELLS MD [facility] Start: 03-22-2021 End: 03-22-2021 Emergency department patient visit ONEL CRAMER MD [facility] Start: 03-08-2021 End: 03-08-2021 Emergency department patient visit ZE WHITT DO [facility] Start: 01-30-2020 End: 01-30-2020 Subsequent hospital visit by physician Xr [facility] Work Phone: Radiology Comment on above: Epigastric pain [R10 .13] Start: 02-27-2017 End: 03-13-2017 Evaluation and management of inpatient [facility] Start: 02-27-2017 End: 02-27-2017 Emergency department patient visit DAVIDSON CHANDLER [facility] Start: 01-06-2017 End: 01-06-2017 Emergency department patient visit CHE LERNER [facility] Start: 12-27-2016 End: 12-27-2016 Emergency department patient visit [facility] Start: 11-30-2016 End: 11-30-2016 Emergency department patient visit [facility] Procedures Date Procedure Procedure Detail Performing Clinician Start: 11-01-[address] Breanna Dye MD Work Phone: Start: 11-01-2024 Plain chest X-ray Dr. Laine Dye MD Work Phone: Start: 11-01-2024 Computed tomography of abdomen and pelvis with intravenous contrast Dr. Laine Dye MD Work Phone: Start: 10-21-[address] Laine cerda MD Work Phone: Start: 10-19-2024 X-ray of chest, PA and lateral views Dr. Laine Dye MD Work Phone: Start: 08-22-2024 Iadna-dna/rna gi pthgn multiplex probe tq 6-11 Dr. Laine Dye MD Work Phone: Start: 08-22-[address] Rupal Dye MD Work Phone: Start: 08-22-[address] Laine manrique MD Work Phone: Start: 08-22-[address] Laine Dye MD Work Phone: Start: 08-22-2024 Ova [address] parasites identification Dr. Rupal Dye MD Work Phone: Start: 08-12-[address] Breanna Dye MD Work Phone: Start: 07-11-2024 Measurement of occult blood in stool specimen using immunoassay Dr. Laine Dye MD Work Phone: Start: 07-11-[address] Breanna Dye MD Work Phone: Start: 01-05-2024 CT of head without contrast Sylvester blanc Work Phone: Start: 01-05-2024 Lumbar puncture using fluoroscopic guidance Sylvester Ramirez Work Phone: Start: 08-11-2023 ECG 12-LEAD WES CSERNYIK Start: 08-11-2023 Ecg routine ecg w/least 12 lds trcg only w/o i&r Wes J Csernyik DO Work Phone: Start: 08-11-2023 Ethanol [Mass/volume] in Serum or Plasma [facility] CS[facility] Start: 08-11-2023 Ethanol [Mass/volume] in Serum or Plasma Wes J Csernyik DO Work Phone: Start: 08-11-2023 INITIATE REQUEST TO ANOTHER FACILITY [facility] Start: 08-11-2023 XR HAND RIGHT 3+ VIEWS [facility] Start: 08-11-2023 Glucose [Mass/volume] in Serum or Plasma [facility] Start: 08-11-2023 Acetaminophen [Mass/volume] in Serum or Plasma [facility] CS[facility] Start: 08-11-2023 CBC W Auto Differential panel - Blood [facility] Start: 08-11-2023 Comprehensive metabolic 2000 panel - Serum or Plasma [facility] Start: 08-11-2023 Ethanol [Mass/volume] in Serum or Plasma [facility] Start: 08-11-2023 SALICYLATE [facility] CS[facility] Start: 08-11-2023 INSERT PERIPHERAL IV [facility] Start: 08-11-2023 POCT GLUCOSE METER [facility] Start: 08-11-2023 ELEVATE HOB [facility] Start: 08-11-2023 PULSE OXIMETRY, CONTINUOUS [facility] CSERNYIK Start: 08-11-2023 DRUG SCREEN,URINE [facility] CSERNYIK Start: 08-11-2023 EXTRA URINE PRADO TUBE [facility]ES CSERNYIK Start: 08-11-2023 URINALYSIS WITH REFLEX CULTURE AND MICROSCOPIC [facility]ES CSERNYIK Start: 08-10-2023 Radex hand minimum 3 views Lester lentz PA-C Work Phone: Start: 08-10-2023 Acetaminophen [Mass/volume] in Serum or Plasma Lester Smith PA-C Work Phone: Start: 08-10-2023 End: 08-10-2023 Comprehensive metabolic panel Lester Travis ant PA-C Work Phone: Start: 08-10-2023 Ethanol [Mass/volume] in Serum or Plasma Wes Jackson DO Work Phone: Start: 08-10-2023 Salicylates [Mass/volume] in Serum or Plasma Lester Smith PA-C Work Phone: Start: 08-10-2023 PULSE OXIMETRY, CONTINUOUS Lester lentz PA-C Work Phone: Start: 08-10-2023 Drug tst prsmv instrmnt chem analyzers pr date Lester Smith PA-C Work Phone: Start: 08-10-2023 Urnls dip stick/tablet rgnt auto w/o microscopy Lester Smith PA-C Work Phone: Start: 11-14-2022 Lipid 1996 panel - Serum or Plasma Sierra Palmer Jr., DO Work Phone: Start: 09-03-2022 Plain chest X-ray Start: 09-06-2021 US scan of gallbladder Dr. Laine garcia Work Phone: Start: 09-01-2021 Computed tomography of abdomen and pelvis with intravenous contrast Start: 01-30-2020 Radiologic exam abdomen 2 views Marshall ford APRN.FHA UNDERWRITER, DNP Work Phone: SARS-CoV-2 & FLU Antigen (Rapid) Plan of Treatment Date Care Activity Detail Author Start: 2066 RSV Immunization for Adults (1 - 1-dose 75+ series) RSV Immunization for Adults (1 - 1-dose 75+ series) [facility] Start: 2051 RSV Immunization age d 60 or older (1 - 1-dose 60+ series) RSV Immunization aged 60 or older (1 - 1-dose 60+ series) [facility] Start: 2051 RSV patient s and/or patients aged 60+ years (1 - 1-dose 60+ series) RSV patients and/or patients aged 60+ years (1 - 1-dose 60+ series) [facility] Start: 2041 Zoster Vaccines (1 of 2) Zoste r Vaccines (1 of 2) [facility] Start: 09-17-2032 DTaP/Tdap/Td Vaccine s (11 - Td or Tdap) DTaP/Tdap/Td Vaccines (11 - Td or Tdap) [facility] Start: 09-17-2032 DTaP/Tdap/Td Vaccine s (9 - Td or Tdap) DTaP/Tdap/Td Vaccines (9 - Td or Tdap) [facility] Start: 09-17-2032 Urine microalbumin profile DTaP,Tdap,Td Vaccine (8 - Td or Tdap) [facility] Start: 01-25-2030 DTaP/Tdap/Td Vaccine s (7 - Td or Tdap) DTaP/Tdap/Td Vaccines (7 - Td or Tdap) [facility] Start: 01-25-2030 Urine microalbumin profile DTAP,TDAP,TD (7 - Td or Tdap) [facility] Start: 11-15-2027 Lipid panel Lipid Panel [facility] Start: 12-26-2024 Influenza vaccination [facility] Start: 11-01-2024 [facility] Start: 10-21-2024 Endoscopy upper smal l intestine w/biopsy SMALL BOWEL ENDOSCOPY/BIOPSY [facility] Start: 10-21-2024 Patient discharge [facility] Start: 10-19-2024 [facility] Start: 08-22-2024 Ova and Parasites Ova and Parasites [facility] Start: 08-12-2024 [facility] Start: 08-12-2024 [facility] Start: 07-11-2024 [facility] Start: 04-19-2024 End: 04-19-2024 Patient encounter procedure 04/19/2024 8:15 AM EST Office Visit [address] [address] Laine Dye MD [address] [facility], [facility] [place] [address] [facility] Start: 12-27-2023 Covid-19 Vaccine ( season) Covid-19 Vaccine () [facility] Start: 12-27-2023 Covid-19 Vaccine () Covid-19 Vaccine () [facility] Start: 12-27-2023 Influenza vaccination [facility] Start: 07-02-2023 [facility] Start: 05-28-2023 [facility] Start: 05-19-2023 Hepatitis C screening Hepatitis C Sc [facility] Comment on above: Postponed from 01/02 (Patient Refused) Start: 05-19-2023 HIV screening HIV Screening [facility] emily Comment on above: Postponed from 01/02 (Patient Refused) Start: 05-14-2023 Depression Monitoring Depression [facility] Start: 04-27-2023 Behavioral Health Screening Behavioral Health Screening [facility] Start: 12-26-2022 COVID-19 Vaccine ( season) COVID-19 Vaccine () [facility] Start: 12-26-2022 Influenza vaccination Influenz a Vaccine (Season Ended) [facility] Start: 09-03-2022 [facility] Start: 06-03-2022 End: 06-03-2022 Patient encounter procedure 06/03/2022 Office Visit Family Medicine Laine Dye MD [facility] [place] [address] [facility] Start: 05-14-2022 End: 05-14-2022 Patient encounter procedure 05/14/2022 Office Visit Family Medicine Laine Dye MD [address] [facility], [facility] [place] [address] [facility] Start: 04-27-2022 DEPRESSION ASSESSMENT DEPRESSION ASS ESSMENT [facility] Start: 12-26-2021 Influenza vaccination [facility] Start: 09-01-2021 Enteric precautions [facility] Work Phone: Start: 07-24-2021 COVID-19 Vaccine (3 - Booster for Pfizer series) COVID-19 Vaccine (3 - Booster for Pfizer series) [facility] Start: 07-24-2021 COVID-19 VACCINE (4 - Booster for Pfizer series) COVID-19 VACCINE (4 - Booster for Pfizer series) [facility] Start: 01-25-2021 Pneumococcal Vaccine : Pediatrics (0 to 5 Years) and At-Risk Patients (6 to 49 Years) (2 of 2 - PCV) Pneumococcal Vaccine: Pediatrics (0 to 5 Years) and At-Risk Patients (6 to 49 Years) (2 of 2 - PCV) [facility] Start: 01-25-2021 Pneumococcal Vaccine : Pediatrics (0 to 5 Years) and At-Risk Patients (6 to 64 Years) (2 of 2 - PCV) Pneumococcal Vaccine: Pediatrics (0 to 5 Years) and At-Risk Patients (6 to 64 Years) (2 of 2 - PCV) [facility] Start: 2010 Hepatitis A Vaccines (1 of 2 - Risk 2-dose series) Hepatitis A Vaccines (1 of 2 - Risk 2-dose series) [facility] Start: 2009 Anxiety Screening Anxiety Screening [facility] Start: 2009 [facility] Start: 2009 HEPATITIS C SCREENING HEPATITIS C SC [facility] Start: 2009 Hepatitis C screening Hepatitis C [facility] Start: 2009 HIV SCREENING HIV SCREENING [facility] Start: 2009 HIV screening HIV Screening [facility] Start: 01-03-2004 Varicella vaccination Varicell a Vaccines (1 of 2 - 13+ 2-dose series) [facility] Start: 12-15-2003 Varicella vaccination Varicell a Vaccines (1 of 2 - 2-dose childhood series) [facility] Start: 1991 HEPATITIS B (1 of 3 - 3-dose series) HEPATITIS B (1 of 3 - 3-dose series) [facility] Start: 1991 HIV screening HIV Screening [facility] Start: 1991 Lipid panel Lipid Panel [facility] Start: 1991 Yearly Adult Physical Yearly Adult P hysical [facility] Capnography Capnography Respiratory Care STAT For RT frequency use only for continuous procedures with task-based reminders at 8a and 8p until discontinued starting 08/10/2023 [facility] Work Phone: Comment on above: For RT frequency use only for continuous procedures with task- based reminders at 8a and 8p until discontinued starting 08/10/2023 Electrocardiogram, 12-lead Electrocardiogram, 12-lead ECG STAT As needed until discontinued starting 08/10/2023 [facility] Work Phone: Comment on above: As needed until disc ontinued starting 08/10/2023 End: 08-10-2023 Extra Urine [facility] Extra Urine [facility] Lab Timed Once for 1 Occurrences starting 08/10/2023 until 08/10/2023 [facility] Work Phone: Comment on above: Once for 1 Occurrenc es starting 08/10/2023 until 08/10/2023 Ova OR parasites identification [facility] Patient Education [facility] Work Phone: Patient referral [facility] Work Phone: Radionuclide gastric emptying study [facility] End: 08-10-2023 Urinalysis complete W Reflex Culture panel - Urine [facility] Service Area Work Phone: Comment on above: Once (Lab) for 1 Occ urrences starting 08/10/2023 until 08/10/2023 Immunizations Immunization Date Immunization Notes Care Provider Daniel lizarraga 09-17-2022 tetanus toxoid, redu rosalina diphtheria toxoid, and acellular pertussis vaccine, adsorbed [facility] 05-29-2021 Covid-19, Pfizer Gra y Top, Do Not Dilute, (Age 12 Y+), Im, L Laine Dye MD Work Phone: [facility] 03-07-2021 influenza, injectabl e, quadrivalent, contains preservative Laine Dye MD Work Phone: [facility] 03-07-2021 influenza virus vacc ine, unspecified formulation Laine Dye MD Work Phone: [facility] 12-25-2020 Pfizer SARS-CoV-2 Vaccination Laine Dye MD Work Phone: [facility] 12-07-2020 Pfizer SARS-CoV-2 Vaccination Laine Dye MD Work Phone: [facility] 08-01-2020 influenza virus vacc ine, unspecified formulation Laine Dye MD Work Phone: [facility] 01-26-2020 influenza, injectabl e, quadrivalent, preservative free Laine Dye MD Work Phone: [facility] 01-26-2020 influenza, seasonal, injectable Laine Dye MD Work Phone: [facility] 01-26-2020 pneumococcal polysaccharide vaccine, 23 valent Laine Dye MD Work Phone: [facility] 01-26-2020 tetanus toxoid, redu rosalina diphtheria toxoid, and acellular pertussis vaccine, adsorbed Laine Dye MD Work Phone: [facility] 03-10-2017 influenza, injectabl e, quadrivalent, preservative free Laine Dye MD Work Phone: [facility] 08-19-2016 Human Papillomavirus 9-valent vaccine Laine Dye MD Work Phone: [facility] 04-02-2016 Human Papillomavirus 9-valent vaccine Laine Dye MD Work Phone: [facility] 04-02-2016 tetanus toxoid, redu rosalina diphtheria toxoid, and acellular pertussis vaccine, adsorbed Laine Dye MD Work Phone: [facility] 02-08-2016 influenza, injectabl e, quadrivalent, contains preservative Laine Dye MD Work Phone: [facility] 02-08-2016 influenza, seasonal, injectable Laine Dye MD Work Phone: [facility] 01-18-2016 Human Papillomavirus 9-valent vaccine Laine Dye MD Work Phone: [facility] 03-06-2015 influenza virus vacc ine, unspecified formulation Laine Dye MD Work Phone: [facility] 05-07-2011 TD(adult) unspecifie d formulation Laine Dye MD Work Phone: [facility] 05-07-2011 tetanus and diphther ia toxoids, adsorbed, preservative free, for adult use (2 Lf of tetanus toxoid and 2 Lf of diphtheria toxoid) Laine Dye MD Work Phone: [facility] 05-07-2011 tetanus and diphther ia toxoids, not adsorbed, for adult use Laine Dye MD Work Phone: [facility] 05-07-2011 tetanus toxoid, redu rosalina diphtheria toxoid, and acellular pertussis vaccine, adsorbed Laine Dye MD Work Phone: [facility] 11-17-2003 measles, mumps and rubella virus vaccine Laine Dye MD Work Phone: [facility] 11-19-1999 hepatitis B vaccine, adult dosage Laine Dye MD Work Phone: [facility] 11-19-1999 hepatitis B vaccine, unspecified formulation Laine Dye MD Work Phone: [facility] 06-13-1999 hepatitis B vaccine, adult dosage Laine Dye MD Work Phone: [facility] 06-13-1999 hepatitis B vaccine, unspecified formulation Laine Dye MD Work Phone: [facility] 05-06-1999 hepatitis B vaccine, adult dosage Laine Dye MD Work Phone: [facility] 05-06-1999 hepatitis B vaccine, unspecified formulation Laine Dye MD Work Phone: [facility] 12-05-1996 diphtheria, tetanus toxoids and acellular pertussis vaccine Laine Dye MD Work Phone: [facility] 12-05-1996 diphtheria, tetanus toxoids and acellular pertussis vaccine, unspecified formulation Laine Dye MD Work Phone: [facility] 07-19-1992 diphtheria, tetanus toxoids and acellular pertussis vaccine Laine Dye MD Work Phone: [facility] 07-19-1992 diphtheria, tetanus toxoids and acellular pertussis vaccine, unspecified formulation Laine Dye MD Work Phone: [facility] 04-17-1992 haemophilus influenz ae type b vaccine, conjugate unspecified formulation Laine Dye MD Work Phone: [facility] 04-17-1992 haemophilus influenz ae type b vaccine, PRP-OMP conjugate Laine Dye MD Work Phone: [facility] 04-17-1992 measles, mumps and rubella virus vaccine Laine Dye MD Work Phone: [facility] 04-17-1992 poliovirus vaccine, inactivated Laine Dye MD Work Phone: [facility] 1991 diphtheria, tetanus toxoids and acellular pertussis vaccine Laine Dye MD Work Phone: [facility] 1991 diphtheria, tetanus toxoids and acellular pertussis vaccine, unspecified formulation Laine Dye MD Work Phone: [facility] 1991 haemophilus influenz ae type b vaccine, conjugate unspecified formulation Laine Dye MD Work Phone: [facility] 1991 haemophilus influenz ae type b vaccine, PRP-OMP conjugate Laine Dye MD Work Phone: [facility] 1991 poliovirus vaccine, inactivated Laine Dye MD Work Phone: [facility] 1991 diphtheria, tetanus toxoids and acellular pertussis vaccine Laine Dye MD Work Phone: [facility] 1991 diphtheria, tetanus toxoids and acellular pertussis vaccine, unspecified formulation Laine Dye MD Work Phone: [facility] 1991 haemophilus influenz ae type b vaccine, conjugate unspecified formulation Laine Dye MD Work Phone: [facility] 1991 haemophilus influenz ae type b vaccine, PRP-OMP conjugate Laine Dye MD Work Phone: [facility] 1991 poliovirus vaccine, inactivated Laine Dye MD Work Phone: [facility] 1991 haemophilus influenz ae type b vaccine, conjugate unspecified formulation Laine Dye MD Work Phone: [facility] 1991 haemophilus influenz ae type b vaccine, PRP-OMP conjugate Laine Dye MD Work Phone: [facility] 1991 poliovirus vaccine, inactivated Laine Dye MD Work Phone: [facility] Payers Date Payer Category Payer Self-pay [id number] 2022 Medicaid HMO [employer]ICA[employer] ODM [id number] 2022 Medicaid [id number] 2018 Medicaid [id number] 1991 Unknown [id number] 1991 Unknown [id number] Unknown [id number] Unknown [id number] Unknown [id number] Unknown [id number] Unknown [id number] Unknown [id number] Unknown [id number] Unknown [id number] Unknown [id number] Unknown [id number] Unknown [id number] Unknown [id number] Unknown [id number] Unknown [id number] Unknown [id number] Social History Date Type Detail Facility Start: 04-25-2019 Light tobacco smoker (finding) [facility] Start: 1990 Sex Assigned At Male [facility] Start: 09-01-2021 End: 01-05-2024 Tobacco smoking status NHIS Unknown if ever smoked [facility] Start: 03-13-2020 Occasional [facility] Start: 03-13-2020 - [facility] Start: 03-13-2020 Alone [facility] Start: 11-07-2019 Chew [facility] Start: 07-15-2017 End: 06-27-2022 Tobacco smoking status NHIS Ex-smoker [facility] End: 03-18-2017 History of tobacco use Current smoker [facility] Start: 08-25-2022 End: 03-18-2017 History of tobacco use Cigarette Smoker [facility] Start: 06-27-2022 End: 11-11-2022 Cigarettes smoked current (pack per day) - Reported 1 [facility] Start: 07-15-2017 End: 06-27-2022 Tobacco use and exposure Smokeless tobacco non-user [facility] Start: 06-27-2022 End: 08-31-2023 Alcohol intake Current non-drinker of alcohol (finding) [facility] Start: 04-01-2017 Alcohol Comment previous alcohol problem [facility] Start: 1990 Sex Assigned At Not on file [facility] Start: 05-19-2022 History SDOH Financial 2 [facility] Start: 05-19-2022 History SDOH Food Worry 1 [facility] Start: 11-11-2022 End: 08-31-2023 Gender identity Not on file [facility] Work Phone: Start: 12-31-2019 End: 08-10-2023 Exposure to SARS-CoV-2 (event) Not sure [facility] Start: 11-11-2022 End: 11-01-2024 Tobacco smoking status NHIS Smokes tobacco daily [facility] Start: 11-11-2022 Tobacco use and exposure Former smokeless tobacco user [facility] How hard is it for y ou to pay for the very basics like food, housing, medical care, and heating Hard [facility] (I/We) worried michael er (my/our) food would run out before (I/we) got money to buy more. Never true [facility] Location, IP In the past 12 month s, has lack of transportation kept you from medical appointments or from getting medications? No [facility] Start: 01-05-2024 [facility] Start: 11-25-2021 End: 08-12-2024 Sex Male (finding) [facility] Goals Date Patient Goal Desired Activity /State Functional Status Date Assessment Result Facility 03-13-2017 Are you deaf, or do you have serious difficulty hearing No 03/13/2017 9:49 AM Regina Mark, AZAEL No [facility] 03-13-2017 Are you blind, or do you have serious difficulty seeing, even when wearing glasses No 03/13/2017 9:49 AM Regina Mark, AZAEL [facility] 03-13-2017 Do you have serious difficulty walking or climbing stairs No 03/13/2017 9:49 AM Regina Mark, AZAEL [facility] 03-13-2017 Do you have difficul ty dressing or bathing No 03/13/2017 9:49 AM Regina Mark, AZAEL [facility] 03-13-2017 Because of a physica l, mental, or emotional condition, do you have difficulty doing errands alone such as visiting a physician's office or shopping No 03/13/2017 9:49 AM Regina Mark, AZAEL [facility] Mental Status Date Assessment Result Facility 11-01-2024 Cognitive function Level Of Cons ciousness Awake;Alert;Follows Commands;Restless [facility] Work Phone: 10-21-2024 Cognitive function Voice/Name [facility] Work Phone: 01-05-2024 Cognitive function Patient Orien tation Person;Place;Time;Location/ Situation [facility] Work Phone: 11-30-2023 Cognitive function Patient Orien tation Person;Place;Location/Situa tion [facility] Work Phone: 05-28-2023 Cognitive function Level Of Cons ciousness Awake;Alert;Appropriate;Fol lows Commands [facility] Work Phone: 09-03-2022 Cognitive function Voice/Name [facility] Work Phone: 12-27-2021 Cognitive function Level Of Cons ciousness Awake;Alert;Appropriate;Fol lows Commands [facility] Work Phone: 03-13-2017 Because of a physica l, mental, or emotional condition, do you have serious difficulty concentrating, remembering, or making decisions No 03/13/2017 9:49 AM Regina Mark RN No [facility] Clinical Notes 01-30-2020 to 11-07-2024 Telephone Encounter - NORMA Lundberg CNP - 11/07/2024 11:11 AM EDTTelephone Encounter - NORMA Lundberg CNP - 11/07/2024 11:11 AM EDT Note Date & Type Note Facility 11-07-2024 Telephone encount er Note Reviewed chart. Refill appropriate. RX sent. [facility] 11-07-2024 Miscellaneous Notes Formattin g of this note might be different from the original. Reviewed chart. Refill appropriate. RX sent. Pended prior rx of albuterol inh. Pt stated he was in the ER last night and was given a Rx for a ProAir inhaler but his insurance doesn't cover Pt is asking for Albuterol, please call Pt back once sent Medication name: albuterol 108 (90 Base) MCG/ACT inhaler Medication dosage: 108 mcg (Micrograms) Monthly quantity needed: 18 g How many day supply requestin days Medication route: inhalation (inhaler) Medication administration time(s): every 6 hours If taking medication PRN, reason for taking medication: shortness of breath If this is a controlled substance do you receive this or any other controlled medication from any other doctor or facility: N/A Ordering provider: Siri Gómez Date of last office visit: 10.25.22 Date of next office visit: None Date of last refill: (see medication tab): 11.14.22 Updated/Validated preferred pharmacy: Yes Patient instructed to contact the pharmacy prior to picking up the medication: No documented in this encounter [facility] 11-07-2024 Telephone encount er Note Pended prior rx of albuterol inh. [facility] 11-07-2024 Telephone encount er Note Pt stated he was in the ER last night and was given a Rx for a ProAir inhaler but his insurance doesn't cover Pt is asking for Albuterol, please call Pt back once sent Medication name: albuterol 108 (90 Base) MCG/ACT inhaler Medication dosage: 108 mcg (Micrograms) Monthly quantity needed: 18 g How many day supply requestin days Medication route: inhalation (inhaler) Medication administration time(s): every 6 hours If taking medication PRN, reason for taking medication: shortness of breath If this is a controlled substance do you receive this or any other controlled medication from any other doctor or facility: N/A Ordering provider: Siri Gómez Date of last office visit: 10.25.22 Date of next office visit: None Date of last refill: (see medication tab): 11.14.22 Updated/Validated preferred pharmacy: Yes Patient instructed to contact the pharmacy prior to picking up the medication: No [facility] 11-06-2024 Telephone encount er Note Patient was seen at outside hospital ED. Patient requesting refills on medications ordered. No PCP at [facility]. Transferred patient to [facility] for further assistance. [facility] 11-06-2024 Miscellaneous Notes Formattin g of this note might be different from the original. Patient was seen at outside hospital ED. Patient requesting refills on medications ordered. No PCP at [facility]. Transferred patient to [facility] for further assistance. documented in this encounter [facility] 11-01-2024 Discharge summary [facility] 11-01-2024 Radiology Diagnostic study note [facility] Imaging Services [address] [place] [address] Abdomen/Pelvis W IV Cont ONLY MR#: [id number] Acct: [id number] Name: MATTY WHITLOCK Rep #: [id number] : 1990 M 34 From: Helen Isbell MD PCP: Dr. Laine Dye MD Status: REG ER Study:Abdomen/Pelvis W IV Cont ONLY Date of E xam: 11/01/24 Exam# [id number] Ordering Dr: Aidan Craig DO PROCEDURE: ABDOMEN/PELVIS W IV CONT ONLY 11/01/2024 REASON FOR EXAM: EPIGASTRIC ABDOMINAL PAIN, KNOWN PUD TECHNIQUE: ABDOMEN/PELVIS W IV CONT ONLY Coronal and Sagittal reconstruction series were provided. CONTRAST: 100 mL of Isovue 370 One or more dose reduction techniques were used (e.g., Automated exposure control, adjustment of the mA and/or kV according to patient size, use of iterative reconstruction technique. RADIATION DOSE SUMMARY: DLP: 742 mGycm COMPARISON: 09/01/2021 FINDINGS: Limited sections of the lung bases demonstrate no focal pulmonary mass or consolidations. The liver, spleen, pancreas, and both adrenal glands demonstrate no acute findings. The gallbladder is unremarkable. The stomach is unremarkable. The small bowel loops are not dilated. The appendix is normal No colonic obstruction. Colonic diverticulosis without acute diverticulitis. Minimal thickening of the rectal wall where proctitis is not excluded. There is no free air or significant free fluid. No hydronephrosis however there is mild hydroureter with distended urinary bladder where reflux is not excluded. The pelvic structures are intact. There is no solid pelvic mass. No significant lymphadenopathy. The aorta and IVC demonstrate no acute findings. Visualized osseous structures demonstrate no acute abnormality. Bilateral L5 pars defects. CT/Abdomen/Pelvis W IV Cont ONLY IMPRESSION: No hydronephrosis however there is mild hydroureter with distended urinary bladder where reflux is not excluded. Minimal thickening of the rectal wall where proctitis is not excluded. Colonic diverticulosis without acute diverticulitis. No bowel obstruction. Reading Location: [id number] CC: Dr. Aidan Hickey DO; Dr. Laine Dye MD ~ Moveman: Signed [facility] 11-01-2024 Radiology Diagnostic study note [facility] Imaging Services [address] [place] [address] Chest 1 View (Portable) MR#: [id number] Acct: [id number] Name: MATTY WHITLOCK Rep #: [id number] : 1990 M 34 From: Mitul Cantu MD PCP: Dr. Laine Dye MD Status: REG ER Study:Chest 1 View (Portable) Date of Exam: 11/01/24 Exam# [id number] Ordering Dr: Aidan Craig DO PROCEDURE: CHEST 1 VIEW (PORTABLE) 11/01/2024 REASON FOR EXAM: EPIGASTRIC ABDOMINAL PAIN TECHNIQUE: Frontal view of the chest. COMPARISON: Chest x-ray of 10/19/2024. RAD/Chest 1 View (Portable) IMPRESSION: No evidence of pneumoperitoneum. No pleural effusion or pneumothorax is seen. Lungs appear clear throughout. The cardiomediastinal silhouette is within the normal range. 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 Reading Location: [address] CC: Dr. Aidan Hickey DO; Dr. Laine Dye MD ~ Moveman: Signed [facility] 11-01-2024 Discharge summary Note Date/Time November 01, 2024 7:48pm [facility] Medical Records Department [address] [place] [address] Emergency Department Summary 11/01/24 MR#: [id number] Acct: [id number] Name: MATTY WHITLOCK Rep #:[id number] : 1990 34 From: Aidan Mcdowell ggett PCP: Dr. Laine Dye MD Status:REG ER Location: ED HPI History of Present Illness Chief Complaint: Other, Pain/Inj Narrative Narrative: Chief complaint and HPI: Epigastric abdominal pain. 34-year-old male with past medical history of chronic epigastric pain, bloating, anxiety presents for evaluation of epigastric abdominal pain. Patient states that he follows with GIsecondary to his symptoms. He recently had an EGD performed with Dr. Katrina alejandre diagnosed with ulcers. Patient states he was recently prescribed Carafate in which he has been taking. He states today his epigastric abdominal pain reoccurred. It feels like his typical pain. He states when he develops pain his anxiety increases. He denies any fever, chills, chest pain, nausea, vomiting, diarrhea, constipation, dysuria. Review of systems: See HPI Medications: As listed on the chart Allergies: As listed on the chart PFSH: Per chart Vital signs: As listed on the chart. Reviewed. Physical exam: Gen: A&O x3, anxious Head: Normocephalic, atraumatic Eyes: No sclera icterus, conjunctiva clear ENT: Moist mucous membranes Neck: Trachea midline, No JVD CV: RRR, no murmurs, no peripheral edema Resp: Lungs CTA BL, no w/r/c GI: Abd soft, minimal tenderness in the epigastrium, non-tender, no r/r/g Musc: Full ROM, no deformity Skin: Warm, dry Neuro: Alert, oriented, grossly intact, sensation intact Psych: Cooperative, anxious [facility] Medical History Dietary restriction Esophageal tear Smoker Chest pain Asthma Depression Anxiety Wears glasses Marijuana use Restless legs History of gastritis Former smoker History of pain when walking History of edema Hx of fracture of tibia Asthma History of GERD History of substance abuse Depression SOB (shortness of breath) Schizoaffective disorder, bipolar type History of alcohol abuse Bipolar 1 disorder Anxiety Home Medications ?Medication ?Instructions ?Recorded ?Last Taken ?Type buspirone 10 mg tablet 10 mg PO TID 07/11/24 History prazosin 1 mg capsule 1 mg PO QHS 07/11/24 5 History esomeprazole magnesium 40 mg 40 mg PO BID #60 caps 10/21/24 Rx capsule,delayed release dicyclomine 20 mg tablet 20 mg PO BID PRN abdominal p ain 10/17/24 10/21/24 Rx #30 tabs albuterol sulfate 90 mcg/actuation 2 inh inhalation Q6 H PRN shortness 10/19/24 10/21/24 Rx breath activated powder inhaler of breath or wheezing #1 ea (ProAir RespiClick) benztropine 1 mg tablet 1 mg PO DAILY 10/19/2410/21 History clonidine HCl 0.2 mg tablet 0.2 mg PO TID 10/19/24 History hydroxyzine HCl 50 mg tablet 50 mg PO DAILY PRN sleep 10/19/24 10/21/24 History famotidine 40 mg tablet 40 mg PO QHS PRN GERD Unknown History paliperidone palmitate 156 mg/mL 156 mg IM Q30D Unknown History intramuscular syringe (Invega Sustenna) sucralfate 100 mg/mL oral 10 ml PO BID #300 mL 5 Unknown Rx suspension (Carafate) Allergy/AdvReac Type Severity Reaction Status Date / Time ondansetron (From Zofran) AdvReac Other Verified 11/01/24 14:34 Surgical History History of surgery on lower extremity History of esophagogastroduodenoscopy (EGD) Social History Smoking Status: Current every day smoker tobacco type: cigarettes alcohol intake: former substance use type: does not use and other details: Former use of Marijuana EXAM Physical Exam Const Vital Signs: 11/01/24 14:23 11/01/24 14:32 11/01/24 19:00 Temperature 96.7 F L Temperature Source Temporal Pulse Rate 79 63 Respiratory Rate 22 H 18 Respiratory Pattern Normal Blood Pressure 113/81 H 108/45 L Blood Pressure Mean 91 66 Pulse Ox 99 100 Oxygen Delivery Method Room Air Room Air MDM MDM MDM Narrative Medical decision making narrative: 34-year-old male with past medical history of chronic epigastric pain, bloating, anxiety presents for evaluation of epigastric abdominal pain. Recently diagnosed with an ulcer by Dr. Herndon. Epigastric pain reoccurred today. Patient in no acute acute distress although is very anxious on examination. On chart review, patient had an EGD performed with Dr. Herndon on 10/14/2024. This found with grade a reflux esophagitis with no bleeding. Abnormal esophageal motility. Gastroparesis. Nonbleeding gastric ulcer with pigmented material. Erythematous adenopathy. He was discharged home on sulcal fate twice daily for 1 month. Biopsies were taken. On chart review, and unableto find the pathology of the specimens. Differential diagnosis includes but is not limited to GERD, PUD, pancreatitis, suspect less likely perforation of ulcer, anxiety reaction. Pepcid, Ativan, morphine ordered for symptoms. Laboratory workup ordered including chest x-ray and CT abdomen pelvis. CBC shows mild leukocytosis of 13.6. No anemia. Platelets unremarkable. CMP unremarkable except for hyponatremia at 127. Patient's baseline is about 133. He states he has been eating and drinking well. Lipase unremarkable. Chest x-ray is personally reviewed interpreted by me, ED physician, no pneumonia, effusion, pneumothorax, cardiomegaly, free air. CT abdomen pelvis shows no hydronephrosis however there is mild hydroureter with distended urinary bladder where reflux is not excluded. Minimal thickening of the rectal wall or proctitis is not excluded. Diverticulosis without diverticulitis. Again patient not endorsing any lower abdominal pain. Denies any dysuria, hematuria. Denies any diarrhea. On reevaluation, patient's pain has improved. NS bolus ordered for his hyponatremia, given this is acute I think he would benefit from admission. I spoke to the hospitalist service, Dr. Meade. He recommends just giving IV fluids and repeating BMP. If normal stable to discharge home. RepeatBMP shows normal sodium at 133. Patient stable to discharge home. Follow-up with Dr. Herndon and PCP. He confirmed understanding of plan. Return precautions explained. Impression: 1. Chronic epigastric abdominal pain with known PUD 2. Hyponatremia, resolved Lab Data Labs: Laboratory Results - last 24 hr 11/01/24 11/01/24 15:33 18:46 WBC 13.6 H RBC 4.56 L Hgb 13.1 Hct 38.0 L MCV 83.3 MCH 28.7 MCHC 34.5 RDW Std Deviation 38.5 RDW Coeff of Klaus 12.7 Plt Count 263 MPV 9.6 Immature Gran % (Auto) 0.500 Neut % (Auto) 69.0 Lymph % (Auto) 22.2 Noble % (Auto) 6.0 Eos % (Auto) 1.6 Baso % (Auto) 0.7 Absolute Neuts (auto) 9.4 H Absolute Lymphs (auto) 3.02 Nucleated RBC % 0 Sodium 127 L 133 Potassium 3.9 3.6 Chloride 93 L 100 Carbon Dioxide 22.1 22.1 Anion Gap 12 10 BUN 5 5 Creatinine 0.77 0.68 L Estim Creat Clear Calc 143.71 162.73 Est GFR (MDRD) Non-Af 121 126 BUN/Creatinine Ratio 7.1 L 6.8 L Glucose 94 96 Calcium 9.0 8.5 Total Bilirubin 0.20 AST 20 ALT 24 Alkaline Phosphatase 82 Total Protein 6.5 Albumin 4.3 Globulin 2.2 Albumin/Globulin Ratio 1.9 Lipase 46 Radiography Diagnostic Testing: Clinical Impression(s) from Imaging Studies Abdomen/Pelvis CT 11/01/24 15:26 IMPRESSION: No hydronephrosis however there is mild hydroureter with distended urinary bladder where reflux is not excluded. Minimal thickening of the rectal wall where proctitis is not excluded. Colonic diverticulosis without acute diverticulitis. No bowel obstruction. Reading Location: [facility] Chest X-Ray 11/01/24 15:50 IMPRESSION: No evidence of pneumoperitoneum. No pleural effusion or pneumothorax is seen. Lungs appear clear throughout. The cardiomediastinal silhouette is within the normal range. 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 Reading Location: [address] Discharge Plan Triage Chief Complaint: Other, Pain/Inj ED Provider: Aidan Hickey Dx/Rx/DC Orders Clinical Impression: Chronic epigastric pain, Hyponatremia Instructions: ED Hyponatremia, ED Gastritis Ulcer No Abx Prescriptions: No Action prazosin 1 mg capsule 1 mg PO QHS buspirone 10 mg tablet 10 mg PO TID Invega Sustenna 156 mg/mL syringe 156 mg IM Q30D famotidine 40 mg tablet 40 mg PO QHS PRN (Reason: GERD) ProAir RespiClick 90 mcg/actuation aerosol powdr breath activated 2 inh inhalation Q6H PRN (Reason: shortness of breath or wheezing) Qty: 1 0RF hydroxyzine HCl 50 mg tablet 50 mg PO DAILY PRN (Reason: sleep) clonidine HCl 0.2 mg tablet 0.2 mg PO TID benztropine 1 mg tablet 1 mg PO DAILY esomeprazole magnesium 40 mg capsule,delayed release(DR/EC) 40 mg PO BID Qty: 60 3RF dicyclomine 20 mg tablet 20 mg PO BID PRN (Reason: abdominal pain) Qty: 30 0RF sucralfate [Carafate] 100 mg/mL suspension 10 ml PO BID Qty: 300 3RF Primary Care Provider: Laine Dye Referrals: Laine Dye MD [Primary Care Provider] - 3-5 Days Vishnu Herndon DO [Med Staff - Active Staff] - 3-5 Days Activity Restrictions/Additional Instructions: Your sodium was low here in the emergency department however it improved with fluids. You need to follow-up with your primary care for this. You need to follow-up with GI for your chronic epigastric abdominal pain. Continue to take the medicines that were prescribed by Dr. Herndon. Print Language: Portuguese Disposition Disposition: Home, Self Care What to do if you have Problems For any increased pain, shortness of breath, bleeding, nausea or vomiting, chestpain, or any unexpected problems, contact your Primary Care Provider. Call [facility] ([phone]) or report to the closest Emergency Room. Call 911 if necessary. 11/01/241947 <Electronically signed by Aidan Klusty-Gary DO> Cosigner Signature (if applicable): CC: Dr. Laine Dye MD ~ Signed [facility] Work Phone: 1(136) 399-912406-27-2025 Consult note [facility] Medical Records Department [address] [place] [address] Anesthesia Postop Eval II 10/21/24 1311 MR#: [id number] Acct: [id number] Name: MATTY WHITLOCK Rep #:[id number] : 1990 34 From: Mlya Upton CHERRY PITTER PCP: Dr. Laine Dye MD Status:REG ARC Y Race: C Location: [place] [address]- Anesthesia Postop Eval I Sum Postop Eval Completion status Anesthesia document: Postop Eval 1 completed: Yes Anesthesia Postop Eval I Summary Anesthesia Postop Eval I Summary: Anesthesia Postop Eval I: Assessment Summary Airway patent Yes 10/21/24 12:36 [email or web address] Spontaneous unlabored Yes 10/21/24 12:36 [email or web address] [email or web address] respirations Mental status nausea No 10/21/24 12:36 CHERRY [email or web address] Vomiting No 10/21/24 12:36 [email or web address] [email or web address] Anesthesia Postop Eval I: Fluid Summary Crystalloid volume administer 500 10/21/24 12:36 [email or web address] [email or web address].CSIR (ml) Colloids volume administered ( ml) Blood Product volume administered (ml) Total IV fluid infused 500 10/21/24 12:36 [email or web address] [email or web address] Anesthesia Postop Eval I: Summary Notes Anesthesia Complication No 10/21/24 12:36 [email or web address] [email or web address] Anesthesia Complication Comment: Post-operative progress note Anesthesia: Postop Eval II Evaluation Mental status: Awake Pain Level: 0 nausea: No Vomiting: No 10/21/24 1311 a CHERRY PITTER> Date _ Myla Upton CHERRY PITTER Cosigner Signature: Date CC: ~ Signed [facility]06-27-2025 History and physical note Author Vishnu Friend [facility] Note Date/Time October 21, 2024 11:1 6am [facility] Medical Records Department [address] [place] [address] History & Physical Exam 10/21/24 1113 MR#: [id number] Acct: [id number] Name: MATTY WHITLOCK Rep #:[id number] : 1990 34 From: Vishnu Herndon DO PCP: Dr. Laine Dye MD Status:[place] [facility] [place]: [place] [address] HPI - General General Date of Admission: 10/21/24 Date of Service: 10/21/24 Chief Complaint: Abdominal pain and GERD HPI Narrative MATTY WHITLOCK, is a 34 M who presents for the evaluation of : epigastric pain [facility] established in 2019 with abd pain. EGD 9.12.16 - LA Grade B reflux esophagitis. Biopsied. - Non-obstructing Schatzki ring. - Erythematous mucosa in the antrum. Biopsied. - Erythematous duodenopathy. Biopsied. GES; not completed [facility] ED 3 with abd pain and anxiety. Work up with mild leukocytosis with a left shift. Rectal exam with blood OV 4.. Pt here today to re establish care with [facility]. Pt has been stable on Nexium for a few years however a few weeks ago he started to have epigastric pain again. He has been seen in the ER for a few occasions for this with an unremarkable work up. His PCP switched him to pantoprazole 20 mg BID about a week ago. It was not helping at first but he feels it is now. He endorses diarrhea since the epigastric pain started. He says its all day but less than 5x perday. It is soft and liquid. He did notice some bright red blood a few days ago but this went away. [facility] Medical History (Updated 10/20/24 @ 10:04 by Yessi Branch) Dietary restriction Esophageal tear Smoker Chest pain Asthma Depression Anxiety Wears glasses Marijuana use Restless legs History of gastritis Former smoker History of pain when walking History of edema Hx of fracture of tibia Asthma History of GERD History of substance abuse Depression SOB (shortness of breath) Schizoaffective disorder, bipolar type History of alcohol abuse Bipolar 1 disorder Anxiety Home Medications ?Medication ?Instructions ?Recorded ?Last Taken ?Type buspirone 10 mg tablet 10 mg PO TID 07/11/24 History prazosin 1 mg capsule 1 mg PO QHS 07/11/24 5 History esomeprazole magnesium 40 mg 40 mg PO BID #60 caps 10/21/24 Rx capsule,delayed release dicyclomine 20 mg tablet 20 mg PO BID PRN abdominal p ain 10/17/24 10/21/24 Rx #30 tabs albuterol sulfate 90 mcg/actuation 2 inh inhalation Q6 H PRN shortness 10/19/24 10/21/24 Rx breath activated powder inhaler of breath or wheezing #1 ea (ProAir RespiClick) benztropine 1 mg tablet 1 mg PO DAILY 10/19/2410/21 History clonidine HCl 0.2 mg tablet 0.2 mg PO TID 10/19/24 History hydroxyzine HCl 50 mg tablet 50 mg PO DAILY PRN sleep 10/19/24 10/21/24 History famotidine 40 mg tablet 40 mg PO QHS PRN GERD Unknown History paliperidone palmitate 156 mg/mL 156 mg IM Q30D Unknown History intramuscular syringe (Invega Sustenna) Allergy/AdvReac Type Severity Reaction Status Date / Time ondansetron (From Zofran) AdvReac Other Verified 10/21/24 11:13 Surgical History (Updated 10/20/24 @ 10:04 by Yessi Branch) History of surgery on lower extremity History of esophagogastroduodenoscopy (EGD) Social History Smoking Status: Current every day smoker tobacco type: cigarettes alcohol intake: former substance use type: does not use and other details: Former use of Marijuana ROS Constitutional Constitutional: Denies fatigue, fever(s), poor appetite, weight gain or weight loss Gastrointestinal Gastrointestinal: Denies belching, bloating, change in bowel habits, change in stool character, chewing difficulty, coffee ground emesis, constipation, cramping, diarrhea, dyspepsia, dysphagia, early satiety, excessive flatus, fecalincontinence, heartburn, hematemesis, hematochezia, hemorrhoids, loose stools, melena, nausea, odynophagia, rectal bleeding, tenesmus, vomiting or weight changes Physical Exam Const alert, oriented x3, no apparent distress and healthy appearing General Appearance: cooperative GI normal to inspection, nondistended, normoactive bowel sounds, soft to palpation,non-tender and non-distended Percussion: normal to percussion Rectal Exam: deferred Assessment & Plan Assessment/Plan (1) Abdominal pain: (2) Bipolar 1 disorder: (3) Gastro-esophageal reflux disease with esophagitis, without bleeding: PLAN: Plan Sigmoid colitis. She will be placed on medical therapy. If she fails medical therapy she will need colonoscopy for evaluation of her lower GI tract. 10/21/24 1116 <Electronically signed by Vishnu Herndon DO> Cosigner Signature (if applicable): CC: Dr. Laine Dye MD; Vishnu Herndon DO~ Signed [facility] Work Phone: [phone]) 499-682306-27-2025 Procedure note [facility] Medical Records Department [address] [place] [address] EGD Report MR#: [id number] Acct: [id number] Name: MATTY WHITLOCK Rep #:[id number] : 1990 34 From: Vishnu Herndon DO PCP: Dr. Laine Dye MD Status:[facility] Patient Name: Matty Whitlock Procedure Date: 10/21/2024 12:13 PM Date of : 1990 Age: 34 Procedure: Upper GI endoscopy Indications: Epigastric abdominal pain, Functional Dyspepsia, Heartburn, Esophageal reflux Providers: Vishnu Herndon DO Referring MD: Laine Dye Medicines: Monitored Anesthesia Care Patient Profile: This is a 34 year old male. Refer to note in patient chart for documentation of history and physical. Patient has symptoms of chronic chest pain, dysphagia with both liquids and solids, acute dyspepsia, chronic dyspepsia, acute heartburn and chronic heartburn. Complications: No immediate complications. Procedure: Pre-Anesthesia Assessment: - Prior to the procedure, a History and Physical was performed, and patient medications and allergies were reviewed. The patient is competent. The risks and benefits of the procedure and the sedation options and risks were discussed with the patient. All questions were answered and informed consent was obtained. Patient identification and proposed procedure were verified by the physician in the pre-procedure area. Mental Status Examination: alert and oriented. Airway Examination: normal oropharyngeal airway and neck mobility. Respiratory Examination: clear to auscultation. CV Examination: normal. Prophylactic Antibiotics: The patient does not require prophylactic antibiotics. Prior Anticoagulants: The patient has taken no anticoagulant or antiplatelet agents except for NSAID medication. ASA Grade Assessment: II - A patient with mild systemic disease. After reviewing the risks and benefits, the patient was deemed in satisfactory condition to undergo the procedure. The anesthesia plan was to use monitored anesthesia care (MAC). Immediately prior to administration of medications, the patient was re-assessed for adequacy to receive sedatives. The heart rate, respiratory rate, oxygen saturations, blood pressure, adequacy of pulmonary ventilation, and response to care were monitored throughout the procedure. The physical status of the patient was re-assessed after the procedure. After obtaining informed consent, the endoscope was passed under direct vision. Throughout the procedure, the patient's blood pressure, pulse, and oxygen saturations were monitored continuously. The gastroscope was introduced through the mouth, and advanced to the fourth part of the duodenum. Small bowel enteroscopy was deemed necessary. The upper GI endoscopy was accomplished without difficulty. The patient tolerated the procedure well. Scope In: 12:22:51 PM Scope Out: 12:28:29 PM Total Procedure Duration Time 0 hours 5 minutes 38 seconds Findings: LA Grade A (one or more mucosal breaks less than 5 mm, not extending between tops of 2 mucosal folds) esophagitis with no bleeding was found 37 to 40 cm from the incisors. Biopsies were taken with a cold forceps for histology. Verification of patient identification for the specimen was done. Estimated blood loss was minimal. Abnormal motility was noted in the esophagus. The cricopharyngeus was abnormal. There are extra peristaltic waves in the esophageal body. The distal esophagus/lower esophageal sphincter is spastic, but gives up passage to the endoscope. Tertiary peristaltic waves are noted. Suspect gastroparesis due to absence of peristalsis and patient symptoms. One non-bleeding linear gastric ulcer with pigmented material was found in the gastric antrum. The lesion was 8 mm in largest dimension. Biopsies were taken with a cold forceps for histology. Biopsies were taken with a cold forceps for Helicobacter pylori testing. Verification of patient identification for the specimen was done. Estimated blood loss was minimal. Patchy mildly erythematous mucosa without active bleeding and with no stigmata of bleeding was found in the entire duodenum. Impression: - LA Grade A reflux esophagitis with no bleeding. Biopsied. - Abnormal esophageal motility. - Gastroparesis. - Non-bleeding gastric ulcer with pigmented material. Biopsied. - Erythematous duodenopathy. Recommendation: - Discharge patient to home. - Resume previous diet. - Continue present medications. - Await pathology results. - Use sucralfate tablets 1 gram PO BID for 1 month. Procedure Code(s): --- Professional --- 64274, Small intestinal endoscopy, enteroscopy beyond second portion of duodenum, not including ileum; with biopsy, single or multiple CPT copyright 2021 [employer]. All rights reserved. The codes documented in this report are preliminary and upon service person review may be revised to meet current compliance requirements. Vishnu Herndon DO 10/21/2024 12:37:44 PM This report has been signed electronically. Number of Addenda: 0 Note Initiated On: 10/21/2024 12:13 PM 10/21/24 1237 Date _ Vishnu Herndon DO Cosigner Signature: Date (if indicated) CC: Dr. Laine Dye MD; Vishnu Herndon DO ~ Date Dictated: 10/21/24 1213 Date Transcribed: Moveman: RF Signed [facility]06-27-2025 Procedure note [facility] Medical Records Department [address] [place] [address] Operative Report - CC Letter MR#: [id number] Acct: [id number] Name: MATTY WHITLOCK Rep #:[id number] : 1990 34 From: Vishnu Herndon DO PCP: Dr. Laine Dye MD Status:REG [facility] 10/21/2024 Laine Dye Re : Upper GI endoscopy procedure for Matty Whitlock Dear Hardik This procedure was performed on Monday, October 21, 2024. My impressions and recommendations are as follows: Impressions : - LA Grade A reflux esophagitis with no bleeding. Biopsied. - Abnormal esophageal motility. - Gastroparesis. - Non-bleeding gastric ulcer with pigmented material. Biopsied. - Erythematous duodenopathy. Recommendations : - Discharge patient to home. - Resume previous diet. - Continue present medications. - Await pathology results. - Use sucralfate tablets 1 gram PO BID for 1 month. My findings are described in the full procedure note, which is enclosed. If I can be of further assistance, please feel free to contact me at . Sincerely, Vishnu Herndon DO 10/21/2024 12:37:44 PM This report has been signed electronically. 10/21/24 1238 Date _ Vishnu Herndon DO Cosigner Signature: Date (if indicated) CC: Dr. Laine Dye MD; Vishnu Herndon DO ~ Date Dictated: 10/21/24 1213 Date Transcribed: Moveman: RF Signed [facility]06-27-2025 Consult note [facility] Medical Records Department [address] [place] [address] Anesthesia Postop Eval I 10/21/24 1236 MR#: [id number] Acct: [id number] Name: MATTY WHITLOCK Rep #:[id number] : 1990 34 From: Myla Upton CRNA PCP: Dr. Laine Dye MD [place] [facility] [place]: C Location: [place] [address] Anesthesia: Postop Eval I Current Vital Signs Temperature: 97.6 F Pulse Rate: 70 Blood Pressure: 125/78 Respiratory Rate: 20 Pulse Ox: 95 Assessment Airway patent: Yes Spontaneous unlabored respirations: Yes nausea: No Vomiting: No Anesthesia Complication: No Fluid Hydration Crystalloid volume administer (ml): 500 Total IV fluid infused: 500 Progress Note Anesthesia document: Postop Eval 1 completed: Yes 10/21/24 1236 a CHERRY PITTER> Date _ Myla Sirca CHERRY PITTER Cosigner Signature: Date CC: ~ Signed [facility]06-27-2025 Consult note [facility] Medical Records Department [address] [facility] [place] [address] Pre-Anesthesia Evaluation 10/21/24 1139 MR#: [id number] Acct: [id number] Name: MATTY WHITLOCK Rep #:[id number] : 1990 34 From: Corby Rizo MD PCP: Dr. Laine Dye MD Status:[place] [facility] [place] Race: C Location: [place] [address] ASA Classification* ASA Classification ASA Classification: 3 Assessment & Plan Anesthesia* Anesthesia Assessment Anesthesia Assessment: Discussed sedation and/or anesthesia options, risks, benefits, and alternatives with patient/parents/legal guardian/POA. Questions invited. The patient/parents/legal guardian/POA seems to understand and agrees to proceedwith anesthesia plan. Reviewed the physical assessment, medical history, allergy history and patient home medications list prior to surgery/procedure/anesthetic and documented any changes. Performed airway and anesthesia risk assessments. Anesthesia Type Anesthesia Type: MAC History Source History Obtained from:: Patient and Chart Anesthesia Focused Assessment* Temperature: 97.6 F Pulse Rate: 51 Blood Pressure: 98/58 Respiratory Rate: 24 Pulse Ox: 97 Oxygen Delivery Method: Room Air Airway Assessment Mouth opens: >3 cm Mallampati Score: IV Teeth Condition: Caps/Crowns (Patient recently had a crown fall off. Rest of the teeth are tight.) Neck Range of motion (ROM): Full ROM Labs Anesthesia Preop lab: CBC WBC 10.6 K/mm3 (4.4-11.0) 08/12/24 18:08/12/24 RBC 4.77 M/mm3 (4.6-6.2) 08/12/24 18:08/12/24 Hgb 13.8 g/dL (13.0-16.5) 08/12/24 18:08/12/24 Hct 39.2 % (40-54) L 08/12/24 18:08/12/24 Plt Count 249 K/mm3 (150-450) 08/12/24 18:08/12/24 CHEMISTRY Potassium 3.9 mmol/L (3.3-5.1) 08/12/24:08/12/24 Sodium 133 mmol/L (133-145) 08/12/24:08/12/24 BUN 5 mg/dL (4-19) 08/12/24 18:08/12/24 Creatinine 0.93 mg/dL (0.70-1.20) 08/12/24 18:08/12/24 Glucose 104 mg/dL (70-99) H 08/12/24 18:08/12/24 TSH 1.30 uIU/mL (0.358-3.74) 10/24/19 16:31 COAG Pre-Assessment Diagnosis/Proposed Procedure Planned Operative Procedure(s): EGD Anesthesia History 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 When Was Last Pacemaker Check QUESTION #4 FULL TEXT: You/Your Family Experience fever (hyperthermia) with Anesthesia Last Oral Intake Last Oral intake: Last Oral Intake NPO since 00:00 10/21/24 11:14 Meds taken in AM with sips of water? Meds patient instructed to take am of surgery Any additional information?: Yes Meds taken in AM with sips of water?: Yes PONV PONV - salesperson terrazzo tiles: PONV - salesperson terrazzo tiles Female No 10/20/24 09:55 HX of Motion Sickness Yes 10/20/24 09:55 HX of N/V After Surgery No 10/20/24 09:55 Non-Smoker No 10/20/24 09:55 Duration of Surgery greater No 10/20/24 09:55 than 60 minutes Number of Risk Factors 1 10/20/24 09:55 PONV Score Low Risk 10/20/24 09:55 Height & Weight Height & Weight: Anesthesia: Height & Weight Height 5 ft 7 in 10/21/24 11:14 Weight: 81 kg 10/21/24 11:14 Body Mass Index (BMI) 27.9 10/21/24 11:14 Respiratory Assessment Respiratory Assessment - salesperson terrazzo tiles: Respiratory Tract Infection Hx - salesperson terrazzo tiles Hx Respiratory Tract Infection Yes: CURRENT CHEST COLD 10/20/24 09:55 STOP Sleep Apnea STOP Sleep Apnea - salesperson terrazzo tiles: STOP Sleep Apnea - salesperson terrazzo tiles Hx Hypertension No 10/20/24 09:55 Hx Sleep Apnea No 10/20/24 09:55 CPAP No 04/29/21 12:37 BIPAP Do you snore loudly (louder No 10/20/24 09:55 than talking or can be heard Do you often feel tired/ No 10/20/24 09:55 fatigued/ sleepy during daytime? Has anyone observed you stop No 10/20/24 09:55 breathing during sleep? STOP Results Negative 10/20/24 09:55 QUESTION #5 FULL TEXT : Do you snore loudly (louder than talking or can be heard through closeddoors)? 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 Specify any problems Hx of Preganancy in last 3 N/A 10/20/24 09:55 Months Nurse Filling Out Transfusion NBUCHER 10/20/24 09:55 & Questions: Date: 10/20/24 10/20/24 09:55 Time: :57 10/20/24 09:55 Patient unable to answer at this time (ie. confused, unrespo /Reproduction History /Reproductive History - salesperson terrazzo tiles: /Reproductive Hx- salesperson terrazzo tiles Hx Now No 10/20/24 09:55 Gestational Age (in weeks): EDC: Hx Hx Para Hx Section SAB No 10/20/24 09:55 Active Medications Active Medications: Current Medications Generic Name Dose Route Start Last Admin Trade Name Freq PRN Reason Stop Dose Admin Lactated Ringer's 1,000 mls @ 15 mls/hr 10/21/24 11:15 10/21/24 11:23 IV 15 mls/hr .Q48H NISREEN Administration PFSH Medical History Dietary restriction Esophageal tear Smoker Chest pain Asthma Depression Anxiety Wears glasses Marijuana use Restless legs History of gastritis Former smoker History of pain when walking History of edema Hx of fracture of tibia Asthma History of GERD History of substance abuse Depression SOB (shortness of breath) Schizoaffective disorder, bipolar type History of alcohol abuse Bipolar 1 disorder Anxiety Home Medications ?Medication ?Instructions ?Recorded ?Last Taken ?Type buspirone 10 mg tablet 10 mg PO TID 07/11/24 History prazosin 1 mg capsule 1 mg PO QHS 07/11/24 5 History esomeprazole magnesium 40 mg 40 mg PO BID #60 caps 10/21/24 Rx capsule,delayed release dicyclomine 20 mg tablet 20 mg PO BID PRN abdominal p ain 06/23/25 06/27/25 Rx #30 tabs albuterol sulfate 90 mcg/actuation 2 inh inhalation Q6 H PRN shortness 10/19/24 10/21/24 Rx breath activated powder inhaler of breath or wheezing #1 ea (ProAir RespiClick) benztropine 1 mg tablet 1 mg PO DAILY 10/19/2410/21 History clonidine HCl 0.2 mg tablet 0.2 mg PO TID 10/19/24 History hydroxyzine HCl 50 mg tablet 50 mg PO DAILY PRN sleep 10/19/24 10/21/24 History famotidine 40 mg tablet 40 mg PO QHS PRN GERD Unknown History paliperidone palmitate 156 mg/mL 156 mg IM Q30D Unknown History intramuscular syringe (Invega Sustenna) Allergy/AdvReac Type Severity Reaction Status Date / Time ondansetron (From Zofran) AdvReac Other Verified 10/21/24 11:13 Surgical History History of surgery on lower extremity History of esophagogastroduodenoscopy (EGD) Social History Smoking Status: Current every day smoker (Patient smoked today.) tobacco type: cigarettes alcohol intake: former substance use type: does not use and other details: Former use of Marijuana Review of Systems (Anesthesia) ROS Narrative System reviewed and no additional complaints, except as documented. 10/21/24 1149 rasheeda STEWART> Date _ Corby Rizo MD Cosigner Signature: Date CC: ~ Signed [facility]06-27-2025 History and physical note [facility] Medical Records Department [address] [place] [address] History & Physical Exam 10/21/24 1113 MR#: [id number] Acct: [id number] Name: MATTY WHITLOCK Rep #:[id number] : 1990 34 From: Vishnu Friend DO PCP: Dr. Laine Dye MD [place] [facility] [place] [address] HPI - General General Date of Admission: 10/21/24 Date of Service: 10/21/24 Chief Complaint: Abdominal pain and GERD HPI Narrative MATTY WHITLOCK, is a 34 M who presents for the evaluation of : epigastric pain BGI established in 2019 with abd pain. EGD 9.12.16 - LA Grade B reflux esophagitis. Biopsied. - Non-obstructing Schatzki ring. - Erythematous mucosa in the antrum. Biopsied. - Erythematous duodenopathy. Biopsied. GES; not completed [facility] ED 07.21.24 with abd pain and anxiety. Work up with mild leukocytosis with a left shift. Rectal exam with blood OV 08.18.24 Pt here today to re establish care with BGI. Pt has been stable on Nexium for a few years however a few weeks ago he started to have epigastric pain again. He has been seen in the ER for afew occasions for this with an unremarkable work up. His PCP switched him to pantoprazole 20 mg BIDabout a week ago. It was not helping at first but he feels it is now. He endorses diarrhea since the epigastric pain started. He says its all day but less than 5x perday. It is soft and liquid. He did notice some bright red blood a few days ago but this went away. [facility] Medical History (Updated 10/20/24 @ 10:04 by Yessi Branch) Dietary restriction Esophageal tear Smoker Chest pain Asthma Depression Anxiety Wears glasses Marijuana use Restless legs History of gastritis Former smoker History of pain when walking History of edema Hx of fracture of tibia Asthma History of GERD History of substance abuse Depression SOB (shortness of breath) Schizoaffective disorder, bipolar type History of alcohol abuse Bipolar 1 disorder Anxiety Home Medications ?Medication ?Instructions ?Recorded ?Last Taken ?Type buspirone 10 mg tablet 10 mg PO TID 07/11/24 History prazosin 1 mg capsule 1 mg PO QHS 07/11/24 5 History esomeprazole magnesium 40 mg 40 mg PO BID #60 caps 10/21/24 Rx capsule,delayed release dicyclomine 20 mg tablet 20 mg PO BID PRN abdominal p ain 10/17/24 10/21/24 Rx #30 tabs albuterol sulfate 90 mcg/actuation 2 inh inhalation Q6 H PRN shortness 10/19/24 10/21/24 Rx breath activated powder inhaler of breath or wheezing #1 ea (ProAir RespiClick) benztropine 1 mg tablet 1 mg PO DAILY 10/19/2410/21 History clonidine HCl 0.2 mg tablet 0.2 mg PO TID 10/19/24 History hydroxyzine HCl 50 mg tablet 50 mg PO DAILY PRN sleep 10/19/24 10/21/24 History famotidine 40 mg tablet 40 mg PO QHS PRN GERD Unknown History paliperidone palmitate 156 mg/mL 156 mg IM Q30D Unknown History intramuscular syringe (Invega Sustenna) Allergy/AdvReac Type Severity Reaction Status Date / Time ondansetron (From Zofran) AdvReac Other Verified 10/21/24 11:13 Surgical History (Updated 10/20/24 @ 10:04 by Yessi Branch) History of surgery on lower extremity History of esophagogastroduodenoscopy (EGD) Social History Smoking Status: Current every day smoker tobacco type: cigarettes alcohol intake: former substance use type: does not use and other details: Former use of Marijuana ROS Constitutional Constitutional: Denies fatigue, fever(s), poor appetite, weight gain or weight loss Gastrointestinal Gastrointestinal: Denies belching, bloating, change in bowel habits, change in stool character, chewing difficulty, coffee ground emesis, constipation, cramping, diarrhea, dyspepsia, dysphagia, earlysatiety, excessive flatus, fecalincontinence, heartburn, hematemesis, hematochezia, hemorrhoids, loose stools, melena, nausea, odynophagia, rectal bleeding, tenesmus, vomiting or weight changes Physical Exam Const alert, oriented x3, no apparent distress and healthy appearing General Appearance: cooperative GI normal to inspection, nondistended, normoactive bowel sounds, soft to palpation,non-tender and non-distended Percussion: normal to percussion Rectal Exam: deferred Assessment & Plan Assessment/Plan (1) Abdominal pain: (2) Bipolar 1 disorder: (3) Gastro-esophageal reflux disease with esophagitis, without bleeding: PLAN: Plan Sigmoid colitis. She will be placed on medical therapy. If she fails medical therapy she will need colonoscopy for evaluation of her lower GI tract. 10/21/24 1116 Cosigner Signature (if applicable): CC: Dr. Laine Dye MD; Vishnu Herndon, ~ Signed [facility]06-27-2025 [facility] Medical Records Department [address] [place] [address] History Physical Exam 10/21/24 1113 MR#: [id number] Acct: [id number] Name: MATTY WHITLOCK Rep #: [id number] : 1990 34 From: Vishnu Herndon DO PCP: Dr. Laine Dye MD [place] [facility] [place]: [place] [address] HPI - General General Date of Admission: 10/21/24 Date of Service: 10/21/24 Chief Complaint: Abdominal pain and GERD HPI Narrative MATTY WHITLOCK, is a 34 M who presents for the evaluation of : epigastric pain BGI established in 2019 with abd pain. EGD 9.8.22 - LA Grade B reflux esophagitis. Biopsied. - Non-obstructing Schatzki ring. - Erythematous mucosa in the antrum. Biopsied. - Erythematous duodenopathy. Biopsied. GES; not completed [facility] ED 3 with abd pain and anxiety. Work up with mild leukocytosis with a left shift. Rectal exam with blood OV 4..25 Pt here today to re establish care with BGI. Pt has been stable on Nexium for a few years however a few weeks ago he started to have epigastric pain again. He has been seen in the ER for a few occasions for this with an unremarkable work up. His PCP switched him to pantoprazole 20 mg BID about a week ago. It was not helping at first but he feels it is now. He endorses diarrhea since the epigastric pain started. He says its all day but less than 5x per day. It is soft and liquid. He did notice some bright red blood a few days ago but this went away. [facility] Medical History (Updated 10/20/24 @ 10:04 by Yessi Branch) Dietary restriction Esophageal tear Smoker Chest pain Asthma Depression Anxiety Wears glasses Marijuana use Restless legs History of gastritis Former smoker History of pain when walking History of edema Hx of fracture of tibia Asthma History of GERD History of substance abuse Depression SOB (shortness of breath) Schizoaffective disorder, bipolar type History of alcohol abuse Bipolar 1 disorder Anxiety Home Medications ???Medication ???Instructions ???Recorded ???Last Taken ???Type buspirone 10 mg tablet 10 mg PO TID 07/11/24 10/21/24 His tory prazosin 1 mg capsule 1 mg PO QHS 07/11/24 10/20/24 Hist ory esomeprazole magnesium 40 mg 40 mg PO BID #60 caps 09/15/24 Rx capsule,delayed release dicyclomine 20 mg tablet 20 mg PO BID PRN abdominal pain 10/21/24 Rx #30 tabs albuterol sulfate 90 mcg/actuation 2 inh inhalation Q6H PRN shortne ss 10/19/24 10/21/24 Rx breath activated powder inhaler of breath or wheezing #1 ea (ProAir RespiClick) benztropine 1 mg tablet 1 mg PO DAILY 10/19/24 10/21/24 Hi story clonidine HCl 0.2 mg tablet 0.2 mg PO TID 10/19/24 10/21/24 Hi story hydroxyzine HCl 50 mg tablet 50 mg PO DAILY PRN sleep 10/19/24 10/21/24 History famotidine 40 mg tablet 40 mg PO QHS PRN GERD 10/20/24 Unk nown History paliperidone palmitate 156 mg/mL 156 mg IM Q30D 10/20/24 Unknown Hi story intramuscular syringe (Invega Sustenna) Allergy/AdvReac Type Severity Reaction Status Date / Time ondansetron (From Zofran) AdvReac Other Verified 10/21/24 11:13 Surgical History (Updated 10/20/24 @ 10:04 by Yessi Branch) History of surgery on lower extremity History of esophagogastroduodenoscopy (EGD) Social History Smoking Status: Current every day smoker tobacco type: cigarettes alcohol intake: former substance use type: does not use and other details: Former use of Marijuana ROS Constitutional Constitutional: Denies fatigue, fever(s), poor appetite, weight gain or weight loss Gastrointestinal Gastrointestinal: Denies belching, bloating, change in bowel habits, change in stool character, chewing difficulty, coffee ground emesis, constipation, cramping, diarrhea, dyspepsia, dysphagia, early satiety, excessive flatus, fecal incontinence, heartburn, hematemesis, hematochezia, hemorrhoids, loose stools, melena, nausea, odynophagia, rectal bleeding, tenesmus, vomiting or weight changes Physical Exam Const alert, oriented x3, no apparent distress and healthy appearing General Appearance: cooperative GI normal to inspection, nondistended, normoactive bowel sounds, soft to palpation, non-tender and non- distended Percussion: normal to percussion Rectal Exam: deferred Assessment Plan Assessment/Plan (1) Abdominal pain: (2) Bipolar 1 disorder: (3) Gastro-esophageal reflux disease with esophagitis, without bleeding: PLAN: Plan Sigmoid colitis. She will be placed on medical therapy. If she fails medical therapy she will need colonoscopy for evaluation of her lower GI tract. 10/21/24 1116 Cosigner Signature (if applicable): CC: Dr. Laine Dye MD; Vishnu Herndon DO [facility] Discharge summary [facility] Medical Records Department [address] [place] [address] Emergency Department Summary 10/19/24 MR#: [id number] Acct: [id number] Name: MATTY WHITLOCK Rep #:[id number] : 1990 34 From: Lester Aguilar DO PCP: Dr. Laine Dye MD Status:REG ER Location: ED HPI History of Present Illness Chief Complaint: Anxiety Narrative Narrative: Patient is a 34-year-old male with past medical history of anxiety, depression, gastritis, GERD, bipolar disorder who presents to the emergency department the chief complaint of difficulty breathing.He states that he supposed get a scopein 2 days for concern of gastritis. He states that he recently on the 16 had his second injection of his Invega and noted they changed him from the pill as the pill was not being digested properly. He states that he just feels like he is having difficulty breathing. Patient denies any recent travel history deniesany sick contacts denies any history of bloodclots. [facility] Medical History Asthma Depression Anxiety Wears glasses Marijuana use Restless legs History of gastritis Former smoker History of pain when walking History of edema Hx of fracture of tibia Asthma History of GERD History of substance abuse Depression SOB (shortness of breath) Schizoaffective disorder, bipolar type History of alcohol abuse Bipolar 1 disorder Anxiety Home Medications ?Medication ?Instructions ?Recorded ?Last Taken ?Type haloperidol 5 mg tablet 5 mg PO BID depressive disor ahmet 02/05/24 Unknown History hydroxyzine pamoate 25 mg capsule 25 mg PO BID 4 Unknown History lorazepam 1 mg tablet (Ativan) 1 mg PO TID PRN anxiety #10 tabs 02/05/24 Unknown Rx paliperidone 6 mg tablet,extended 6 mg PO QHS 02/05/24 Unknown History release 24 hr buspirone 10 mg tablet 10 mg PO TID 07/11/24 Unknow n History clonidine HCl 0.1 mg tablet 0.1 mg PO TID 07/11/24 Unk nown History melatonin 10 mg capsule 10 mg PO QHS 07/11/24 Unknow n History nicotine 14 mg/24 hr daily 1 patch topical DAILY 07/11 Unknown History transdermal patch prazosin 1 mg capsule 1 mg PO QHS 07/11/24 Unknown History esomeprazole magnesium 40 mg 40 mg PO BID #60 caps Unknown Rx capsule,delayed release dicyclomine 20 mg tablet 20 mg PO BID PRN abdominal p ain 10/17/24 Unknown Rx #30 tabs famotidine 40 mg tablet 40 mg PO QHS #30 tabs Unknown Rx albuterol sulfate 90 mcg/actuation 2 inh inhalation Q6 H PRN shortness 10/19/24 Unknown Rx breath activated powder inhaler of breath or wheezing #1 ea (ProAir RespiClick) Allergy/AdvReac Type Severity Reaction Status Date / Time ondansetron (From Zofran) AdvReac Other Verified 08/12/24 15:28 Social History Smoking Status: Current every day smoker tobacco type: cigarettes and smokelesstobacco alcohol intake: former substance use type: does not use and other details: Former use of Marijuana ROS ROS ED ROS Narrative Constitutional: Denies fevers, chills, headaches, lightness, dizziness Eyes: Denies change in vision double vision blurry vision Cardiovascular: Denies chest pain or palpitations Respiratory: Shortness of breath and cough denies wheezing Abdomen: Denies abdominal pain nausea vomit diarrhea : Denies any urinary symptoms Neurological: Denies numbness, aches, tingling Musculoskeletal: Denies back pain Skin: Denies rashes or lesions EXAM Physical Exam Narrative Exam Narrative: General: Patient was lying in bed rest comfortably did not appear to be in acutedistress Head: Atraumatic, normocephalic Eyes: PERRL bilaterally, EOMI bladder, no conjunctival injection noted Neck: Soft, supple, trachea midline Cardiovascular: Regular rate and rhythm no murmurs gallops rubs noted Respiratory: Clear to auscultation bilaterally no rales rhonchi or wheezes noted Abdomen: Soft, nondistended, nontender to palpation Extremities: +5/5 strength noted in the upper and lower extremities, radial pulse +2/4 in the rightextremities, no pedal edema exam Neurological: Patient following commands knew that he was at [facility] years 2024 Skin: Warm, dry, intact no rashes or lesions noted no hives noted no purpura Const Vital Signs: 10/19/24 12:17 10/19/24 15:40 10/19/24 16:14 Temperature 97.6 F L Temperature Source Temporal Pulse Rate 85 85 60 Respiratory Rate 20 H 20 H 16 Respiratory Pattern Normal Blood Pressure 111/63 133/81 H Blood Pressure Mean 79 98 Pulse Ox 99 100 Oxygen Delivery Method Room Air Room Air MDM MDM MDM Narrative Medical decision making narrative: Patient is a 34-year-old male who presented to the emergency department the chief complaint of shortness of breath. On the differential diagnose includes but not limited to anxiety, pneumothorax, pneumonia, cardiac arrhythmia. Patient was given a milligram of oral Ativan and be reevaluated. Patient chest x-ray reviewed by myself by radiology showed no acute cardiopulmonary processes. Patient's EKG reviewed showed sinus bradycardia withrate of 56 bpm. Patient requested breathing treatment as he felt like he was wheezing even though when I listen to his lungs he was not he was given 2 DuoNeb's. Patient ambulated well in the emergency department no tachycardia no hypoxia Patient is requesting a albuterol inhaler to go home with. He was advised to follow-up with his doctor for scope in 2 days. He is advised to return with worsening symptoms and concerns. He is agreeable this plan all questions were answered he was discharged home in stable condition. Radiography Diagnostic Testing: Clinical Impression(s) from Imaging Studies Chest X-Ray 10/19/24 15:15 IMPRESSION: NO ACUTE FINDINGS. Reading Location: [id number] Discharge Plan Triage Chief Complaint: Anxiety ED Provider: Lester Aguilar Dx/Rx/DC Orders Clinical Impression: Shortness of breath, Anxiety Prescriptions: New ProAir RespiClick 90 mcg/actuation aerosol powdr breath activated 2 inh inhalation Q6H PRN (Reason: shortness of breath or wheezing) Qty: 1 0RF No Action haloperidol 5 mg tablet 5 mg PO BID hydroxyzine pamoate 25 mg capsule 25 mg PO BID paliperidone 6 mg tablet extended release 24hr 6 mg PO QHS lorazepam [Ativan] 1 mg tablet 1 mg PO TID PRN (Reason: anxiety) Qty: 10 0RF clonidine HCl 0.1 mg tablet 0.1 mg PO TID nicotine 14 mg/24 hr patch 24 hour 1 patch topical DAILY prazosin 1 mg capsule 1 mg PO QHS buspirone 10 mg tablet 10 mg PO TID melatonin 10 mg capsule 10 mg PO QHS esomeprazole magnesium 40 mg capsule,delayed release(DR/EC) 40 mg PO BID Qty: 60 3RF famotidine 40 mg tablet 40 mg PO QHS Qty: 30 2RF dicyclomine 20 mg tablet 20 mg PO BID PRN (Reason: abdominal pain) Qty: 30 0RF Primary Care Provider: Laine Dye Referrals: Laine Dye MD [Primary Care Provider] - Activity Restrictions/Additional Instructions: Follow-up your doctor in outpatient setting. Use inhaler as prescribed. Returnwith worsening symptoms and concerns. Your chest x-ray did not show any evidence of pneumonia. Print Language: Portuguese Disposition Disposition: Home, Self Care What to do if you have Problems For any increased pain, shortness of breath, bleeding, nausea or vomiting, chestpain, or any unexpected problems, contact your Primary Care Provider. Call [facility] ([phone]) or report tothe closest Emergency Room. Call 911 if necessary. 10/19/24 164 Cosigner Signature (if applicable): CC: Dr. Laine Dye MD ~ Signed [facility]06-25-2025 Radiology Diagnostic study note [facility] Imaging Services [address] [place] [address] Chest PA and Lateral MR#: [id number] Acct: [id number] Name: MATTY WHITLOCK Rep #: [id number] : 1990 M 34 From: Wilfred Ferreira MD PCP: Dr. Laine Dye MD Status: REG ER Study:Chest PA and Lateral Date of Exam: 10/19/24 Exam# [id number] Ordering Dr: Myla Aguilar DO PROCEDURE: CHEST PA AND LATERAL 10/19/2024 REASON FOR EXAM: SOB TECHNIQUE: CHEST PA AND LATERAL COMPARISON: Prior study dated September 03, 2022. FINDINGS: Hardware: None Heart: The heart size is normal. Mediastinum: The mediastinal contour is unremarkable. Lungs: The lungs are clear. Bones: The bones are unremarkable. RAD/Chest PA and Lateral IMPRESSION: NO ACUTE FINDINGS. Reading Location: [facility] CC: Dr. Laine Dye MD; Dr. Lester Agiular DO ~ Moveman: Signed [facility]06-25-2025 Discharge summary Author Lester Aguilar [facility] Note Date/Time October 19, 2024 4:45 pm [facility] Medical Records Department [address] [place] [address] Emergency Department Summary 10/19/24 MR#: [id number] Acct: [id number] Name: MATTY WHITLOCK Rep #:[id number] : 1990 34 From: Lester Aguilar DO PCP: Dr. Laine Dye MD Status:REG ER Location: ED HPI History of Present Illness Chief Complaint: Anxiety Narrative Narrative: Patient is a 34-year-old male with past medical history of anxiety, depression, gastritis, GERD, bipolar disorder who presents to the emergency department the chief complaint of difficulty breathing. He states that he supposed get a scopein 2 days for concern of gastritis. He states that he recently on the had his second injection of his Invega and noted they changed him from the pill as the pill was not being digested properly. He states that he just feels like he is having difficulty breathing. Patient denies any recent travel history deniesany sick contacts denies any history of blood clots. [facility] Medical History Asthma Depression Anxiety Wears glasses Marijuana use Restless legs History of gastritis Former smoker History of pain when walking History of edema Hx of fracture of tibia Asthma History of GERD History of substance abuse Depression SOB (shortness of breath) Schizoaffective disorder, bipolar type History of alcohol abuse Bipolar 1 disorder Anxiety Home Medications ?Medication ?Instructions ?Recorded ?Last Taken ?Type haloperidol 5 mg tablet 5 mg PO BID depressive disor ahmet 02/05/24 Unknown History hydroxyzine pamoate 25 mg capsule 25 mg PO BID 4 Unknown History lorazepam 1 mg tablet (Ativan) 1 mg PO TID PRN anxiety #10 tabs 02/05/24 Unknown Rx paliperidone 6 mg tablet,extended 6 mg PO QHS 02/05/24 Unknown History release 24 hr buspirone 10 mg tablet 10 mg PO TID 07/11/24 Unknow n History clonidine HCl 0.1 mg tablet 0.1 mg PO TID 07/11/24 Unk nown History melatonin 10 mg capsule 10 mg PO QHS 07/11/24 Unknow n History nicotine 14 mg/24 hr daily 1 patch topical DAILY 07/11 Unknown History transdermal patch prazosin 1 mg capsule 1 mg PO QHS 07/11/24 Unknown History esomeprazole magnesium 40 mg 40 mg PO BID #60 caps Unknown Rx capsule,delayed release dicyclomine 20 mg tablet 20 mg PO BID PRN abdominal p ain 10/17/24 Unknown Rx #30 tabs famotidine 40 mg tablet 40 mg PO QHS #30 tabs Unknown Rx albuterol sulfate 90 mcg/actuation 2 inh inhalation Q6 H PRN shortness 10/19/24 Unknown Rx breath activated powder inhaler of breath or wheezing #1 ea (ProAir RespiClick) Allergy/AdvReac Type Severity Reaction Status Date / Time ondansetron (From Zofran) AdvReac Other Verified 08/12/24 15:28 Social History Smoking Status: Current every day smoker tobacco type: cigarettes and smokelesstobacco alcohol intake: former substance use type: does not use and other details: Former use of Marijuana ROS ROS ED ROS Narrative Constitutional: Denies fevers, chills, headaches, lightness, dizziness Eyes: Denies change in vision double vision blurry vision Cardiovascular: Denies chest pain or palpitations Respiratory: Shortness of breath and cough denies wheezing Abdomen: Denies abdominal pain nausea vomit diarrhea : Denies any urinary symptoms Neurological: Denies numbness, aches, tingling Musculoskeletal: Denies back pain Skin: Denies rashes or lesions EXAM Physical Exam Narrative Exam Narrative: General: Patient was lying in bed rest comfortably did not appear to be in acutedistress Head: Atraumatic, normocephalic Eyes: PERRL bilaterally, EOMI bladder, no conjunctival injection noted Neck: Soft, supple, trachea midline Cardiovascular: Regular rate and rhythm no murmurs gallops rubs noted Respiratory: Clear to auscultation bilaterally no rales rhonchi or wheezes noted Abdomen: Soft, nondistended, nontender to palpation Extremities: +5/5 strength noted in the upper and lower extremities, radial pulse +2/4 in the right extremities, no pedal edema exam Neurological: Patient following commands knew that he was at [facility] years 2024 Skin: Warm, dry, intact no rashes or lesions noted no hives noted no purpura Const Vital Signs: 10/19/24 12:17 10/19/24 15:40 10/19/24 16:14 Temperature 97.6 F L Temperature Source Temporal Pulse Rate 85 85 60 Respiratory Rate 20 H 20 H 16 Respiratory Pattern Normal Blood Pressure 111/63 133/81 H Blood Pressure Mean 79 98 Pulse Ox 99 100 Oxygen Delivery Method Room Air Room Air MDM MDM MDM Narrative Medical decision making narrative: Patient is a 34-year-old male who presented to the emergency department the chief complaint of shortness of breath. On the differential diagnose includes but not limited to anxiety, pneumothorax, pneumonia, cardiac arrhythmia. Patient was given a milligram of oral Ativan and be reevaluated. Patient chest x-ray reviewed by myself by radiology showed no acute cardiopulmonary processes. Patient's EKG reviewed showed sinus bradycardia withrate of 56 bpm. Patient requested breathing treatment as he felt like he was wheezing even though when I listen to his lungs he was not he was given 2 DuoNeb's. Patient ambulated well in the emergency department no tachycardia no hypoxia Patient is requesting a albuterol inhaler to go home with. He was advised to follow-up with his doctor for scope in 2 days. He is advised to return with worsening symptoms and concerns. He is agreeable this plan all questions were answered he was discharged home in stable condition. Radiography Diagnostic Testing: Clinical Impression(s) from Imaging Studies Chest X-Ray 10/19/24 15:15 IMPRESSION: NO ACUTE FINDINGS. Reading Location: [facility] Discharge Plan Triage Chief Complaint: Anxiety ED Provider: Lester Aguilar Dx/Rx/DC Orders Clinical Impression: Shortness of breath, Anxiety Prescriptions: New ProAir RespiClick 90 mcg/actuation aerosol powdr breath activated 2 inh inhalation Q6H PRN (Reason: shortness of breath or wheezing) Qty: 1 0RF No Action haloperidol 5 mg tablet 5 mg PO BID hydroxyzine pamoate 25 mg capsule 25 mg PO BID paliperidone 6 mg tablet extended release 24hr 6 mg PO QHS lorazepam [Ativan] 1 mg tablet 1 mg PO TID PRN (Reason: anxiety) Qty: 10 0RF clonidine HCl 0.1 mg tablet 0.1 mg PO TID nicotine 14 mg/24 hr patch 24 hour 1 patch topical DAILY prazosin 1 mg capsule 1 mg PO QHS buspirone 10 mg tablet 10 mg PO TID melatonin 10 mg capsule 10 mg PO QHS esomeprazole magnesium 40 mg capsule,delayed release(DR/EC) 40 mg PO BID Qty: 60 3RF famotidine 40 mg tablet 40 mg PO QHS Qty: 30 2RF dicyclomine 20 mg tablet 20 mg PO BID PRN (Reason: abdominal pain) Qty: 30 0RF Primary Care Provider: Laine Dye Referrals: Laine Dye MD [Primary Care Provider] - Activity Restrictions/Additional Instructions: Follow-up your doctor in outpatient setting. Use inhaler as prescribed. Returnwith worsening symptoms and concerns. Your chest x-ray did not show any evidence of pneumonia. Print Language: Portuguese Disposition Disposition: Home, Self Care What to do if you have Problems For any increased pain, shortness of breath, bleeding, nausea or vomiting, chestpain, or any unexpected problems, contact your Primary Care Provider. Call [facility] ([phone]) or report to the closest Emergency Room. Call 911 if necessary. 10/19/24 1645 <Electronically signed by Lester Aguilar DO> Cosigner Signature (if applicable): CC: Dr. Laine Dye MD ~ Signed [facility] Work Phone: 1(958) 965-825004-24-2025 Evaluation note* Diagnosis Onset Date Resolution Status Admit Date Chronic gastroesophageal ref lux disease inactive August 18, 2024 4:00pm [facility] Work Phone: 1(905) 898-681904-24-2025 Evaluation note* Diagnosis Onset Date Resolution Status Admit Date Chronic gastroesophageal ref lux disease inactive August 18, 2024 4:00pm Gastro-esophageal reflux dis ease with esophagitis, without bleeding acute October 21, 2024 10:58am Abdominal pain chronic October 21, 2024 10:58am Bipolar 1 disorder chronic September 262024 10:58am [facility] Work Phone: 1(298) 603-245804-24-2025 Evaluation note* Diagnosis Onset Date Resolution Status Admit Date Chronic gastroesophageal ref lux disease inactive August 18, 2024 4:00pm Gastro-esophageal reflux dis ease with esophagitis, without bleeding acute October 21, 2024 10:58am Abdominal pain chronic October 21, 2024 10:58am Bipolar 1 disorder chronic September 262024 10:58am Gastric ulcer acute November 09, 2024 3:36pm Gastro-esophageal reflux dis ease with esophagitis, without bleeding acute November 09, 2024 3:36pm Abdominal pain chronic November 09, 2024 3:36pm [facility][1] Services Work Phone: 1(205) 558-170704-18-2025 Telephone encounter Note* Telephone Encounter - NORMA Lundberg CNP - 08/12/2024 12:36 PM EDT Prescription sent for pantoprazole 20 mg twice daily. [id number] Miscellaneous Notes* Telephone Encounter - NORMA Lundberg CNP - 08/12/2024 12:36 PM EDT Prescription sent for pantoprazole 20 mg twice daily. * Telephone Encounter - Francie Bates - 08/12/2024 11:19 AM EDT Name of caller: Jya Contact phone number: [phone] Relationship to Patient: patient Provider: Hardik Practice: [facility] Chief Complaint/Reason for Call: Patient wants to know if you change his script of nexium to protonix? He said he would like it to be 2 times daily. He said the nexium isn't working for him. Please advise Best time of day caller can be reached: any Patient advised that office/PCP has 24-48 business hours to return their call: No documented in this [facility]SW[id number] Telephone encounter Note* Telephone Encounter - Francie Bates - 08/12/2024 11:19 AM EDT Name of caller: Jay Contact phone number: [phone] Relationship to Patient: patient Provider: Hardik Practice: [facility] Chief Complaint/Reason for Call: Patient wants to know if you change his script of nexium to protonix? He said he would like it to be 2 times daily. He said the nexium isn't working for him. Please advise Best time of day caller can be reached: any Patient advised that office/PCP has 24-48 business hours to return their call: No [place] [id number] Telephone encounter Note* Telephone Encounter - Rita Farrell - 08/04/2024 3:13 PM EDT Medication name: esomeprazole (NexIUM) Medication dosage: 20mg Monthly quantity needed: 60 How many day supply requestin days Medication route: oral (PO) Medication administration time(s): 2 times a day (BID) If taking medication PRN, reason for taking medication: N/A If this is a controlled substance do you receive this or any other controlled medication from any other doctor or facility: N/A Ordering provider: Dr Dye Date of last office visit: 11/14/24 Date of next office visit: na Date of last refill: (see medication tab): 04/14/24 Updated/Validated preferred pharmacy: Yes Patient instructed to contact the pharmacy prior to picking up the medication: Yes T [place] [id number] Miscellaneous Notes* Telephone Encounter - Rita Farrell - 08/04/2024 3:13 PM EDT Medication name: esomeprazole (NexIUM) Medication dosage: 20mg Monthly quantity needed: 60 How many day supply requestin days Medication route: oral (PO) Medication administration time(s): 2 times a day (BID) If taking medication PRN, reason for taking medication: N/A If this is a controlled substance do you receive this or any other controlled medication from any other doctor or facility: N/A Ordering provider: Dr Dye Date of last office visit: 11/14/24 Date of next office visit: na Date of last refill: (see medication tab): 04/14/24 Updated/Validated preferred pharmacy: Yes Patient instructed to contact the pharmacy prior to picking up the medication: Yes documented in this [facility]03-17-2025 Discharge summary [facility] Medical Records Department [address] [place] [address] Emergency Department Summary 07/11/24 MR#: [id number] Acct: [id number] Name: MATTY WHITLOCK Rep #:[id number] : 1990 34 From: Gricel Moreno PCP: Dr. Laine Dye MD Status:REG ER Location: ED HPI HPI - GI History of Present Illness Chief Complaint: GI Bleed Informant: patient Narrative Narrative: Patient is a 34-year-old male with history of GERD, gastritis, substance abuse, schizoaffective disorder and type I bipolar disorder as well as alcohol abuse (currently in a sober living house) presenting with increasing anxiety as well as right abdominal pain and reports passage of bloody clots tohis stool. Patient states that he has developed some right sided abdominal pain described as burning. He states his intestines feel inflamed. States he felt like he hadto have a bowel movement and blood clots that he describes as red came out. He states after that he started feel weak and confused.He states he feels like heis coming out of his body and states his anxiety is quite severe at this point. He spends a lot of time tell me about how the nicotine patch he is wearing because if he doesnot wear he has severe nicotine withdraw makes him feel very anxious. He states when he was riding his bike to work this morning he felt that he was out of his body. Denies associate nausea or vomiting. Denies any prior abdominal surgeries. States his bowel movements have otherwise been normal bit off. Did not report any history of ulcerative colitis or Crohn's disease. No other complaints or concerns reported at this time. [facility] Medical History Asthma Depression Anxiety Wears glasses Marijuana use Restless legs History of gastritis Former smoker History of pain when walking History of edema Hx of fracture of tibia Asthma History of GERD History of substance abuse Depression SOB (shortness of breath) Schizoaffective disorder, bipolar type History of alcohol abuse Bipolar 1 disorder Anxiety Home Medications ?Medication ?Instructions ?Recorded ?Last Taken ?Type haloperidol 5 mg tablet 5 mg PO BID depressive disor ahmet 02/05/24 Unknown History hydroxyzine pamoate 25 mg capsule 25 mg PO BID 4 Unknown History lorazepam 1 mg tablet (Ativan) 1 mg PO TID PRN anxiety #10 tabs 02/05/24 Unknown Rx paliperidone 6 mg tablet,extended 6 mg PO QHS 02/05/24 Unknown History release 24 hr buspirone 10 mg tablet 10 mg PO TID 07/11/24 Unknow n History clonidine HCl 0.1 mg tablet 0.1 mg PO TID 07/11/24 Unk nown History esomeprazole magnesium 20 mg 20 mg PO BID 07/11/24 Unk nown History capsule,delayed release esomeprazole magnesium 40 mg 40 mg PO DAILY #30 caps 0 07/11/24 Unknown Rx capsule,delayed release (Nexium) melatonin 10 mg capsule 10 mg PO QHS 07/11/24 Unknow n History nicotine 14 mg/24 hr daily 1 patch topical DAILY 07/11 Unknown History transdermal patch prazosin 1 mg capsule 1 mg PO QHS 07/11/24 Unknown History Allergy/AdvReac Type Severity Reaction Status Date / Time ondansetron (From Zofran) AdvReac Other Verified 07/11/24 10:55 Social History Smoking Status: Current every day smoker tobacco type: cigarettes and smokelesstobacco alcohol intake: former substance use type: does not use and other details: Former use of Marijuana ROS ROS ED Constitutional Constitutional ED: Denies chills or fever(s) Respiratory/Chest Respiratory/Chest: Denies cough Gastrointestinal Gastrointestinal: Reports abdominal pain and other Details: BRBPR ; Denies diarrhea or vomiting Musculoskeletal Musculoskeletal: Denies arthralgias or myalgias Neurologic Neurologic: Reports headache(s) and paresthesias Psychiatric Psychiatric: Reports anxiety; Denies depression or suicidal thoughts Hematologic/Lymphatic Hematologic/Lymphatic: Denies easy bleeding or easy bruising EXAM Physical Exam Const Vital Signs: 07/11/24 10:53 07/11/24 13:02 Temperature 98.1 F Temperature Source Temporal Pulse Rate 96 74 Respiratory Rate 15 16 Blood Pressure 137/98 H 132/87 H Blood Pressure Mean 111 102 Pulse Ox 99 99 Oxygen Delivery Method Room Air Positive well nourished and well developed General Appearance ED: well developed and NAD; Negative for pallor HEENT Reports moist mucous membranes Eyes PERRL General Eye ED: Negative for pale conjunctiva Neck supple Resp normal respiratory effort and clear to auscultation bilaterally Cardio regular rate and regular rhythm GI non-tender and non-distended GI Narrative: Scant pink blood noted on rectal exam. No tenderness. No external hemorrhoids appreciated. NegativeMurphy sign. Patient points to his right mid abdomen as area of pain but denies any pain on palpation. Auscultation: hyperactive bowel sounds Palpation: soft; Negative for tender, guarding or rigid Extremity full ROM Neuro Sensorium / Orientation: alert Psych Psych Narrative: Patient is not internally stimulated, well-groomed. Acting appropriately. Attitude: No agitated Mood & Affect: anxious; Negative for tearful Skin General Skin Exam: Negative for jaundice or pallor MDM MDM MDM Narrative Medical decision making narrative: Patient evaluated for abdominal pain and episode of passing when he describes asa blood clot. Patient overall well-appearing. He is not toxic. He is quite anxious. Is given dose of IV Haldol and Benadryl for his anxiety. Differential for presentation and includes bleeding internal hemorrhoid, ulcerative colitis, Crohn disease, diverticular bleed. Bleeding is not consistent with cholecystitis or choledocholithiasis. Lab work including CBC, CMP and lipase is obtained. Patient is a mild leukocytosis of 11.9 which isstable compared to 10 days ago where his 11.6. Hemoglobin is 14.1. He does not have a left shift. CMP normal. BUN normal suspicion for upper GI bleed. Lipase normal. Patient reevaluated and states heis feeling better from his abdominal pain. He has no further bleeding. He doeshave blood on his rectal exam but no signs of active bleeding. No report of anybright red blood per rectum while in the emergency room. His [place] score at this time is 8 which correlates with the 95% probability ofsafe discharge. Patient will follow-up outpatient with GI (seen Dr. Herndon in the past). Does tell me that he has only been taking his Nexium 20 mg once a day instead of twice a day as he supposed to because he does like to take it twice a day. Is offered GI cocktail in the ER as I suspect some of his upper pain could be gastritis related. He declined saying he does not want to mix medications or take too many medicines. He notes his symptoms are improving currently. Will be given a prescription for Nexium 40 mg per his request. Given return precautions and counseled importance of outpatient follow-up with GI. He is agreeable with this plan of care. Discharged home in stable condition peer remains hemodynamically stable in the emergency room Lab Data Attestation: I reviewed the patient's lab results. Labs: Laboratory Results - last 24 hr 07/11/24 11:20 WBC 11.9 H RBC 4.87 Hgb 14.1 Hct 41.8 MCV 85.8 MCH 29.0 MCHC 33.7 RDW Std Deviation 40.7 RDW Coeff of Klaus 13.2 Plt Count 268 MPV 10.5 Immature Gran % (Auto) 0.800 Neut % (Auto) 80.0 H Lymph % (Auto) 12.3 L Noble % (Auto) 6.3 Eos % (Auto) 0.3 Baso % (Auto) 0.3 Absolute Neuts (auto) 9.5 H Absolute Lymphs (auto) 1.47 Nucleated RBC % 0 Sodium 139 Potassium 3.9 Chloride 103 Carbon Dioxide 23.5 Anion Gap 12 BUN 7 Creatinine 0.94 Estim Creat Clear Calc 122.94 Est GFR (MDRD) Non-Af 110 BUN/Creatinine Ratio 7.2 L Glucose 98 Calcium 10.3 Total Bilirubin 0.24 AST 33 ALT 54 H Alkaline Phosphatase 60 Total Protein 7.5 Albumin 4.9 Globulin 2.6 Albumin/Globulin Ratio 1.9 Lipase 27 Discharge Plan Triage Chief Complaint: GI Bleed ED Provider: Gricel Talley Dx/Rx/DC Orders Clinical Impression: Right sided abdominal pain, Anxiety, Rectal bleeding Instructions: ED Lower GI Bleeding (Stable), ED Abdominal Pain Unkn Cause Male... Prescriptions: New esomeprazole magnesium [Nexium] 40 mg capsule,delayed release(DR/EC) 40 mg PO DAILY Qty: 30 0RF No Action haloperidol 5 mg tablet 5 mg PO BID hydroxyzine pamoate 25 mg capsule 25 mg PO BID paliperidone 6 mg tablet extended release 24hr 6 mg PO QHS lorazepam [Ativan] 1 mg tablet 1 mg PO TID PRN (Reason: anxiety) Qty: 10 0RF clonidine HCl 0.1 mg tablet 0.1 mg PO TID nicotine 14 mg/24 hr patch 24 hour 1 patch topical DAILY prazosin 1 mg capsule 1 mg PO QHS buspirone 10 mg tablet 10 mg PO TID esomeprazole magnesium 20 mg capsule,delayed release(DR/EC) 20 mg PO BID melatonin 10 mg capsule 10 mg PO QHS Stand Alone Forms: ED Work / School Excuse Primary Care Provider: Laine Dye Referrals: Laine Dye MD [Primary Care Provider] - Friend,DO Vishnu [Med Staff - Active Staff] - Activity Restrictions/Additional Instructions: The risk of any major complication with GI bleed is low given your workup today including her vitalsigns. Please follow-up with your GI specialist. Please start taking the Nexium 40 mg once a day asprescribed. He may stop taking the 20 mg as we discussed. Avoid ibuprofen or other NSAIDs. If your symptoms worsen please do not hesitate to return to the emergency room. Print Language: Portuguese Disposition Disposition: Home, Self Care What to do if you have Problems For any increased pain, shortness of breath, bleeding, nausea or vomiting, chestpain, or any unexpected problems, contact your Primary Care Provider. Call [facility] ([phone]) or report tothe closest Emergency Room. Call 911 if necessary. 07/11/24 4961 Cosigner Signature (if applicable): CC: Dr. Laine Dye MD ~ Signed [facility]03-17-2025 Discharge summary Author [facility]ricel [facility] Note Date/Time July 11, 2024 3:3 4pm [facility] Medical Records Department [address] [place] [address] Emergency Department Summary 07/11/24 MR#: [id number] Acct: [id number] Name: MATTY WHITLOCK Rep #:[id number] : 1990 34 From: Gricel Moreno PCP: Dr. Laine Dye MD Status:REG ER Location: ED HPI HPI - GI History of Present Illness Chief Complaint: GI Bleed Informant: patient Narrative Narrative: Patient is a 34-year-old male with history of GERD, gastritis, substance abuse, schizoaffective disorder and type I bipolar disorder as well as alcohol abuse (currently in a sober living house) presenting with increasing anxiety as well as right abdominal pain and reports passage of bloody clots to his stool. Patient states that he has developed some right sided abdominal pain described as burning. He states his intestines feel inflamed. States he felt like he hadto have a bowel movement and blood clots that he describes as red came out. He states after that he started feel weak and confused. He states he feels like heis coming out of his body and states his anxiety is quite severe at this point. He spends a lot of time tell me about how the nicotine patch he is wearing because if he does not wear he has severe nicotine withdraw makes him feel very anxious. He states when he was riding his bike to work this morning he felt that he was out of his body. Denies associate nausea or vomiting. Denies any prior abdominal surgeries. States his bowel movements have otherwise been normal bit off. Did not report any history of ulcerative colitis or Crohn's disease. No other complaints or concerns reported at this time. [facility] Medical History Asthma Depression Anxiety Wears glasses Marijuana use Restless legs History of gastritis Former smoker History of pain when walking History of edema Hx of fracture of tibia Asthma History of GERD History of substance abuse Depression SOB (shortness of breath) Schizoaffective disorder, bipolar type History of alcohol abuse Bipolar 1 disorder Anxiety Home Medications ?Medication ?Instructions ?Recorded ?Last Taken ?Type haloperidol 5 mg tablet 5 mg PO BID depressive disor ahmet 02/05/24 Unknown History hydroxyzine pamoate 25 mg capsule 25 mg PO BID 4 Unknown History lorazepam 1 mg tablet (Ativan) 1 mg PO TID PRN anxiety #10 tabs 02/05/24 Unknown Rx paliperidone 6 mg tablet,extended 6 mg PO QHS 02/05/24 Unknown History release 24 hr buspirone 10 mg tablet 10 mg PO TID 07/11/24 Unknow n History clonidine HCl 0.1 mg tablet 0.1 mg PO TID 07/11/24 Unk nown History esomeprazole magnesium 20 mg 20 mg PO BID 07/11/24 Unk nown History capsule,delayed release esomeprazole magnesium 40 mg 40 mg PO DAILY #30 caps 0 07/11/24 Unknown Rx capsule,delayed release (Nexium) melatonin 10 mg capsule 10 mg PO QHS 07/11/24 Unknow n History nicotine 14 mg/24 hr daily 1 patch topical DAILY 07/11 Unknown History transdermal patch prazosin 1 mg capsule 1 mg PO QHS 07/11/24 Unknown History Allergy/AdvReac Type Severity Reaction Status Date / Time ondansetron (From Zofran) AdvReac Other Verified 07/11/24 10:55 Social History Smoking Status: Current every day smoker tobacco type: cigarettes and smokelesstobacco alcohol intake: former substance use type: does not use and other details: Former use of Marijuana ROS ROS ED Constitutional Constitutional ED: Denies chills or fever(s) Respiratory/Chest Respiratory/Chest: Denies cough Gastrointestinal Gastrointestinal: Reports abdominal pain and other Details: BRBPR ; Denies diarrhea or vomiting Musculoskeletal Musculoskeletal: Denies arthralgias or myalgias Neurologic Neurologic: Reports headache(s) and paresthesias Psychiatric Psychiatric: Reports anxiety; Denies depression or suicidal thoughts Hematologic/Lymphatic Hematologic/Lymphatic: Denies easy bleeding or easy bruising EXAM Physical Exam Const Vital Signs: 07/11/24 10:53 07/11/24 13:02 Temperature 98.1 F Temperature Source Temporal Pulse Rate 96 74 Respiratory Rate 15 16 Blood Pressure 137/98 H 132/87 H Blood Pressure Mean 111 102 Pulse Ox 99 99 Oxygen Delivery Method Room Air Positive well nourished and well developed General Appearance ED: well developed and NAD; Negative for pallor HEENT Reports moist mucous membranes Eyes PERRL General Eye ED: Negative for pale conjunctiva Neck supple Resp normal respiratory effort and clear to auscultation bilaterally Cardio regular rate and regular rhythm GI non-tender and non-distended GI Narrative: Scant pink blood noted on rectal exam. No tenderness. No external hemorrhoids appreciated. Negative Pearce sign. Patient points to his right mid abdomen as area of pain but denies any pain on palpation. Auscultation: hyperactive bowel sounds Palpation: soft; Negative for tender, guarding or rigid Extremity full ROM Neuro Sensorium / Orientation: alert Psych Psych Narrative: Patient is not internally stimulated, well-groomed. Acting appropriately. Attitude: No agitated Mood & Affect: anxious; Negative for tearful Skin General Skin Exam: Negative for jaundice or pallor MDM MDM MDM Narrative Medical decision making narrative: Patient evaluated for abdominal pain and episode of passing when he describes asa blood clot. Patient overall well-appearing. He is not toxic. He is quite anxious. Is given dose of IV Haldol and Benadryl for his anxiety. Differential for presentation and includes bleeding internal hemorrhoid, ulcerative colitis, Crohn disease, diverticular bleed. Bleeding is not consistent with cholecystitis or choledocholithiasis. Lab work including CBC, CMP and lipase is obtained. Patient is a mild leukocytosis of 11.9 which is stable compared to 10 days ago where his 11.6. Hemoglobin is 14.1. He does not have a left shift. CMP normal. BUN normal suspicion for upper GI bleed. Lipase normal. Patient reevaluated and states heis feeling better from his abdominal pain. He has no further bleeding. He doeshave blood on his rectal exam but no signs of active bleeding. No report of anybright red blood per rectum while in the emergency room. His [place] score at this time is 8 which correlates with the 95% probability ofsafe discharge. Patient will follow-up outpatient with GI (seen Dr. Herndon in the past). Does tell me that he has only been taking his Nexium 20 mg once a day instead of twice a day as he supposed to because he does like to take it twice a day. Is offered GI cocktail in the ER as I suspect some of his upper pain could be gastritis related. He declined saying he does not want to mix medications or take too many medicines. He notes his symptoms are improving currently. Will be given a prescription for Nexium 40 mg per his request. Given return precautions and counseled importance of outpatient follow-up with GI. He is agreeable with this plan of care. Discharged home in stable condition peer remains hemodynamically stable in the emergency room Lab Data Attestation: I reviewed the patient's lab results. Labs: Laboratory Results - last 24 hr 07/11/24 11:20 WBC 11.9 H RBC 4.87 Hgb 14.1 Hct 41.8 MCV 85.8 MCH 29.0 MCHC 33.7 RDW Std Deviation 40.7 RDW Coeff of Klaus 13.2 Plt Count 268 MPV 10.5 Immature Gran % (Auto) 0.800 Neut % (Auto) 80.0 H Lymph % (Auto) 12.3 L Noble % (Auto) 6.3 Eos % (Auto) 0.3 Baso % (Auto) 0.3 Absolute Neuts (auto) 9.5 H Absolute Lymphs (auto) 1.47 Nucleated RBC % 0 Sodium 139 Potassium 3.9 Chloride 103 Carbon Dioxide 23.5 Anion Gap 12 BUN 7 Creatinine 0.94 Estim Creat Clear Calc 122.94 Est GFR (MDRD) Non-Af 110 BUN/Creatinine Ratio 7.2 L Glucose 98 Calcium 10.3 Total Bilirubin 0.24 AST 33 ALT 54 H Alkaline Phosphatase 60 Total Protein 7.5 Albumin 4.9 Globulin 2.6 Albumin/Globulin Ratio 1.9 Lipase 27 Discharge Plan Triage Chief Complaint: GI Bleed ED Provider: Gricle Talley Dx/Rx/DC Orders Clinical Impression: Right sided abdominal pain, Anxiety, Rectal bleeding Instructions: ED Lower GI Bleeding (Stable), ED Abdominal Pain Unkn Cause Male... Prescriptions: New esomeprazole magnesium [Nexium] 40 mg capsule,delayed release(DR/EC) 40 mg PO DAILY Qty: 30 0RF No Action haloperidol 5 mg tablet 5 mg PO BID hydroxyzine pamoate 25 mg capsule 25 mg PO BID paliperidone 6 mg tablet extended release 24hr 6 mg PO QHS lorazepam [Ativan] 1 mg tablet 1 mg PO TID PRN (Reason: anxiety) Qty: 10 0RF clonidine HCl 0.1 mg tablet 0.1 mg PO TID nicotine 14 mg/24 hr patch 24 hour 1 patch topical DAILY prazosin 1 mg capsule 1 mg PO QHS buspirone 10 mg tablet 10 mg PO TID esomeprazole magnesium 20 mg capsule,delayed release(DR/EC) 20 mg PO BID melatonin 10 mg capsule 10 mg PO QHS Stand Alone Forms: ED Work / School Excuse Primary Care Provider: Laine Dye Referrals: Laine Dye MD [Primary Care Provider] - Friend,DO Vishnu [Med Staff - Active Staff] - Activity Restrictions/Additional Instructions: The risk of any major complication with GI bleed is low given your workup today including her vital signs. Please follow-up with your GI specialist. Please start taking the Nexium 40 mg once a day as prescribed. He may stop taking the 20 mg as we discussed. Avoid ibuprofen or other NSAIDs. If your symptoms worsen please do not hesitate to return to the emergency room. Print Language: Portuguese Disposition Disposition: Home, Self Care What to do if you have Problems For any increased pain, shortness of breath, bleeding, nausea or vomiting, chestpain, or any unexpected problems, contact your Primary Care Provider. Call [facility] ([phone]) or report to the closest Emergency Room. Call 911 if necessary. 07/11/24 4343 <Electronically signed by Gricel Talley DO> Cosigner Signature (if applicable): CC: Dr. Laine Dye MD ~ Signed [facility] Work Phone: [phone] 262-133503-10-2025 Telephone encounter Note* Telephone Encounter - NORMA Lundberg CNP - 07/04/2024 12:48 PM EDT Step [facility] dose [id number] Miscellaneous Notes* Telephone Encounter - NORMA Lundberg CNP - 07/04/2024 12:48 PM EDT Step down therapy dose sent * Telephone Encounter - Maritza Ni MA - 07/04/2024 10:21 AM EDT No follow up on file documented in this encounterSWayne HealthCare Main [id number] Telephone encounter Note* Telephone Encounter - Maritza Ni MA - 07/04/2024 10:21 AM EDT No follow up on file [facility] [id number] Telephone encounter Note* Telephone Encounter - Celia Shukla MA - 04/18/2024 4:22 PM EST Patient has appt scheduled for 04/19 will address at visit [facility] [id number] Miscellaneous Notes* Telephone Encounter - Celia Shukla MA - 04/18/2024 4:22 PM EST Patient has appt scheduled for 04/19 will address at visit * Telephone Encounter - Celai Shukla MA - 04/14/2024 2:19 PM EST Attempted to call Matty, unsure if patient has an automated system for phone answering, was unable to leave message. * Telephone Encounter - Laine Dye MD - 04/14/2024 2:11 PM EST Rx sent for Nexium * Telephone Encounter - Jessica Mann RN - 04/14/2024 1:04 PM EST S: Patient spoke with [facility] nurse regarding abdominal pain. B: Onset of symptoms/concern ongoing, getting worse. A: Patient is complaining of mild to moderate intermittent upper abdominal pain that feels like acid reflux. Denies hematemesis, blood in stool, vomiting, dizziness, chest pain, difficulty breathing, fever, chills. Reports some relief with Pepcid, but Nexium is the only thing that really works.Pharmacy and allergies verified/reviewed with patient. Patient is requesting esomeprazole (NexIUM) [address] capsule Take 1 capsule (20 mg) by mouth 2 times daily be sent to pharmacy. Patient is also requesting an office visit to discuss acid reflux, and smoking cessation. Reports he is currently living in a recovery home and needs to schedule a few days out to be able to schedule transportation. Please reach out to patient and advise in regard to medication request. R: Spoke with back line office staff at this time. Office visit scheduled for 04/19/[address] Dye per back line office staff approval. Insurance verified per policy. Patient advised message would be sent to provider for review in regard to NexIUM request. Patient verbalized understanding. Patient understands care advice. No further needs at this time. Patient instructed to call back with new or worsening symptoms, questions or concerns. Reason for Disposition Patient wants to be seen Protocols used: Abdominal Pain - [id number] documented in this encounterSWayne HealthCare Main [id number] Telephone encounter Note* Telephone Encounter - Celia Shukla MA - 04/14/2024 2:19 PM EST Attempted to call Matty unsure if patient has an automated system for phone answering, was unable to leave message. [facility] [id number] Miscellaneous Notes* Telephone Encounter - Celia Shukla MA - 04/14/2024 2:19 PM EST Attempted to call Mtaty unsure if patient has an automated system for phone answering, was unable to leave message. * Telephone Encounter - Laine Dye MD - 04/14/2024 2:11 PM EST Rx sent for Nexium * Telephone Encounter - Jessica Mann RN - 04/14/2024 1:04 PM EST S: Patient spoke with [facility] nurse regarding abdominal pain. B: Onset of symptoms/concern ongoing, getting worse. A: Patient is complaining of mild to moderate intermittent upper abdominal pain that feels like acid reflux. Denies hematemesis, blood in stool, vomiting, dizziness, chest pain, difficulty breathing, fever, chills. Reports some relief with Pepcid, but Nexium is the only thing that really works.Pharmacy and allergies verified/reviewed with patient. Patient is requesting esomeprazole (NexIUM) [address] capsule Take 1 capsule (20 mg) by mouth 2 times daily be sent to pharmacy. Patient is also requesting an office visit to discuss acid reflux, and smoking cessation. Reports he is currently living in a recovery home and needs to schedule a few days out to be able to schedule transportation. Please reach out to patient and advise in regard to medication request. R: Spoke with back line office staff at this time. Office visit scheduled for 04/19/[address] Dye per back line office staff approval. Insurance verified per policy. Patient advised message would be sent to provider for review in regard to NexIUM request. Patient verbalized understanding. Patient understands care advice. No further needs at this time. Patient instructed to call back with new or worsening symptoms, questions or concerns. Reason for Disposition Patient wants to be seen Protocols used: Abdominal Pain - [id number] documented in this encounterSWayne HealthCare Main [id number] Telephone encounter Note* Telephone Encounter - Laine Dye MD - 04/14/2024 2:11 PM EST Rx sent for Nexium [facility] [id number] Telephone encounter Note* Telephone Encounter - Jessica Mann RN - 04/14/2024 1:04 PM EST S: Patient spoke with [facility] nurse regarding abdominal pain. B: Onset of symptoms/concern ongoing, getting worse. A: Patient is complaining of mild to moderate intermittent upper abdominal pain that feels like acid reflux. Denies hematemesis, blood in stool, vomiting, dizziness, chest pain, difficulty breathing, fever, chills. Reports some relief with Pepcid, but Nexium is the only thing that really works.Pharmacy and allergies verified/reviewed with patient. Patient is requesting esomeprazole (NexIUM) [address] capsule Take 1 capsule (20 mg) by mouth 2 times daily be sent to pharmacy. Patient is also requesting an office visit to discuss acid reflux, and smoking cessation. Reports he is currently living in a recovery home and needs to schedule a few days out to be able to schedule transportation. Please reach out to patient and advise in regard to medication request. R: Spoke with back line office staff at this time. Office visit scheduled for 04/19/[address] Dye per back line office staff approval. Insurance verified per policy. Patient advised message would be sent to provider for review in regard to NexIUM request. Patient verbalized understanding. Patient understands care advice. No further needs at this time. Patient instructed to call back with new or worsening symptoms, questions or concerns. Reason for Disposition Patient wants to be seen Protocols used: Abdominal Pain - Vcoen-[id number] [facility]10-11-2024 NoteHNO ID: [id number] Author: ENRIQUE GARCIA APRN.PRAVIN Service: ? Author Type: Nurse Practitioner Type: Progress Notes Filed: 02/05/2024 13:22 Note Text: Nontoxic-appearing male presents urgent care requesting medication refill. Patient states recently was released from nursing home. Did not get a prescription for any of his anxiety medications. Presents today requesting refill on anxiety medications. Currently living in sober living. Does have an appointment with a counselor on Thursday. Requesting sleeping medications and anxiety medications. I discussed with patient that we are unable to fill these medications. Referred to counseling center or the ED. Verbalized understand agrees with plan of care. Will go with staff member to counseling center. Enrique Garcia APRN.PRAVINUniversity [facility]als [facility]10-11-2024 History of Present illness Narrative* Enrique Garcia APRN.FHA UNDERWRITER - 02/05/2024 1:10 PM EDT Nontoxic-appearing male presents urgent care requesting medication refill. Patient states recently was released from nursing home. Did not get a prescription for any of his anxiety medications. Presents today requesting refill on anxiety medications. Currently living in sober living. Does have an appointment with a counselor on Thursday. Requesting sleeping medications and anxiety medications. I discussed with patient that we are unable to fill these medications. Referred to counseling center or the ED. Verbalized understand agrees with plan of care. Will go with staff member to counseling center. Enrique Garcia APRN.FHA UNDERWRITER documented in this encounterHigh[facility]09-[facility] History and physical note Author Omkar Del Cid [facility] January 06, 2024 4:01am Note Date/Time January 05, 2024 10:30pm MATTY WHITLOCK Male [id number] Attending provider: [facility] [id number] Omkar Del Cid 1990 34 DOS: 01/05/24 Hx/Exam - History of Present Illness Chief Complaint: DELUSIONS/HALLUCINATIONS Location: body, mind Symptom Duration: days Symptom Duration: Day(s) Onset of Symptoms: police were called by mother, pt had expressed SI Intensity: moderate, moderate-severe Quality: pt was expressing HI, depression symptoms Episode Frequency: intermittant Episode Duration: Days Radiations: body, mind Patient/Family Denies: neck pain, back pain, abd pain, vomiting, falls/trauma - Review of Systems All Other Systems: Pertinent Positives in HPI, All Other Systems Negative Constitutional: Denies: Fever, Chills, Sweats Respiratory: Denies: Cough, Shortness of Breath Cardiovascular: Denies: Chest Pain, Palpitations, Light Headedness Gastrointestinal: Denies: Nausea, Vomiting, Abdominal Pain, Diarrhea Musculoskeletal: Denies: Neck Pain, Back Pain, Body Aches Skin: Denies: Rash Neurological: Denies: Headache, Weakness, Numbness, Incoordination, Seizures - Social History Smoking Status: Never Smoker Hx Alcohol Use: No Hx Drug Use: Methamphetamine Living Conditions: Alone - Family History Family/Social History Related to Chief Complaint: Denies - Physical Exam General Appearance: awake, alert Eyes: PERRL Head, Ears, Nose, and Throat: TMs normal, pharynx normal, mucous membranes moist, atraumatic, mastoid non-tender, other (No step off or depressed skull fracture; no septal hematoma; no dental trauma noted; no pain at TMJ bilaterally; midline trachea; no pain with EOM, no proptosis or enophthalmos; nocrepitus over face. ) Neck: supple, non-tender, no stridor, no bony tenderness, full ROM, no meningealsigns, no cervical lymphadenopathy Respiratory: lungs clear, no wheezes/rhonchi/rales, no respiratory distress Cardiovascular: regular rate, rhythm, no murmur, no gallop Abdomen/GI: non tender, soft, non-distended, normal bowel sounds, no organomegaly, no pulsatile mass, no peritoneal signs Back: no vertebral tenderness, normal ROM, non tender Extremity: normal range of motion, non-tender, normal inspection, no pedal edema, no calf tenderness Pulses: Radial: 2+, Posterior Tibial: 2+, Dorsalis Pedis: 2+ Neurologic: no motor/sensory deficits, normal gait, normal strength, normal sensation, speech clear/fluent Psychiatric: aggitated Skin Exam: warm/dry - Source of History Source of History: Nursing Notes/Vital Signs/Triage Reviewed and Agree Note(s) - Physician Notes Additional Notes, See Orders for Details: 01/05/24 21:29 34-year-old male presents after police were called given concern that he had been expressing suicidal thoughts according to his mother. Patient on arrival according to police was agitated expressing hallucinations paranoia and was yelling about wanting to harm someone. Patient was brought in by police. Patient was screaming yelling at staff. I attempted verbal de-escalation unsuccessfully with the patient and therefore as he continued to lash out at staff and had potential to harm himself or others I added chemical restraint forthe patient. CT head: IMPRESSION: No acute intracranial pathology. COMMENT: Changes resultant from ischemia (even significant ischemia) may often be inapparent on CT exam, particularly if imaged early. Additionally, early changes due to neoplastic or inflammatory processes can be subtle to the extent that they are not prospectively noted. Therefore, if symptoms persist, or clinical suspicion for pathology remains, further evaluation may be obtained with MRI. Electronically signed By Jv Hill MD 01/05/2024 10:41:35 PM EST Workstation ID: [id number] REPORT SIGNATURE ON FILE Electronically Signed Date/Time: 01/05/242240 Dictated Date/time: 01/05/242239; I d/w pt all imaging results. Mini resp panel NEGATIVE. [place] slip has been filled out for pt. We had reached out to the patient's mother spoke to her on the phone and she indicates the patient has had a long history with substance abuse. His urine drug screen is positive for methamphetamines. Mother states that he has been living in a homeless camp in [place] called mother bashir landin And he has been having a lot of problems with someone named eBttye, And the patient had indicated threats of harm against this person earlier tonight. We reached out to psychiatric facilities and patient has been accepted to [facility] by Dr. Aceves. This note is completed with assistance of the [employer] dictation program. While every attempt has been made to dictate accurately, the system does make errors in transcribing the precise spoken word intended. EKG - EKG EKG Interpretation: Preliminary ED Interpretation (Sinus rhythm rate 90; no prior for comparison; QTc 446) Discharge Screen - Discharge Discharge Problem: Methamphetamine abuse, Cannabis abuse, Behavioral change Disposition: OTH FACILITY Condition: Fair Referrals: provider (Unknown),Unlisted [Primary Care Provider] - <Electronically signed by Omkar Del Cid > Dictated By: Omkar Del Cid MD Dictated Date/Time:01/05/242124 Electronically Signed Date/Time: 01/06/24 0301 [facility] Work Phone: 1(345) 931-891709-01-2024 Note* Behavorial Health Intake - Celia Escamilla LSW - 12/27/2023 11:47 AM EDT BEHAVIORAL HEALTH INTAKE NOTE SERVICE DATE: 12/27/2023 SERVICE TIME: 1146 Nature of the crisis: Psychosis Presenting Problem: Matty Whitlock is a 33 year old male brought in to [facility], flight of ideas. Patient does have a prior history of crystal meth use and marijuana use, denies any current meth use but states he is still using marijuana. He states he has not been compliant with medications for a long period of time now. Patient has significant flight ofideas and is quite difficult to get an organized history from him. He is denying any current physical complaints at this time. Here in the emergency department, patient is hemodynamically stable. Patient is very anxious, quite hyperactive and extremely tangential with flight of ideas. At this time most highly suspect drug-induced psychosis versus yann secondary to noncompliance with his medication with history of bipolar disorder. Medical screening workup has been ordered, behavioral health consult has been ordered, final disposition will be determined after patient has been medically cleared and behavioral health has assessed the patient. Current Presentation (MSE) Intake spoke with the patient in person and he was observed to be A&Ox4 .Pt was unkempt and disheveled in appearance. He was reported to be easily agitated and hostile with staff, but was cooperative and calm with this assessment. Pt's affect was flat, thought process was circumstantial regarding his homelessness, and thought content showed no evidence of hallucinations, delusions, and/or preo ccupations. Pt's speech was appropriate in respect to rate, volume, quality, and poverty of speech in respect to quantity. Assessment Pt reported an ambulance brought him into the ED for anxiety concerns. He informed this worker thathe has [facility] [place] for the last 4 days and needed to get away from there. He stated that he has been homeless for awhile, and reports hearing and seeing volatile things around that area, but would not elaborate on this. When asked if he would like homeless skilled nursing resources for the area, he advised he has not been staying at homeless shelters outof spite and instead wanted to go to [place] shelters instead. Pt was asked about any family orsupport systems and he stated he has not been in contact with family for a long time. He reported no changes in eating, sleeping, or appetite. His goal for today was to rest a bit [facility]. Suicidal Ideations/Homicidal Ideations/self-Harm Behaviors Pt reports no current or prior hx of suicidal, homicidal or self-harm thoughts and behaviors Mental Health History Pt has a hx of FAISAL, schizoaffective disorder, bipolar type and polysubstance use disorder. He was on Seroquel but stopped taking it awhile ago because it made me feel fat. He has previously been seeing a provider at [facility], last known appt was over a yearago. Pt has had several inpatient admissions: 09/14/23 at [facility] for psychosis ([facility]), 06/2023 at [facility] for psychosis, 02/2017 and 06/2016 at [facility] for substance induced psychosis. SOCIAL HISTORY: Social History Tobacco Use Smoking status: Former Current packs/day: 0.00 Types: Cigarettes Quit date: 03/18/2017 Years since quittin.7 Smokeless tobacco: Never Vaping Use Vaping status: Never Used Substance Use Topics Alcohol use: No Comment: previous alcohol problem Drug use: No Types: Crystal Meth, Marijuana Comment: previous use of crystal meth x1 month MEDICATIONS: busPIRone (BUSPAR) 7.5 mg tablet^Take by mouth.^Disp: ^Rfl: QUEtiapine (SEROQUEL) 200 mg tablet^Take 200 mg by mouth daily at bedtime.^Disp: ^Rfl: nicotine (NICODERM) 21 mg/24 hr^Apply 1 Patch by transdermal route 1 time per day^Disp: ^Rfl: cloNIDine HCl (CATAPRES) 0.2 mg tablet^Take 1 Tablet By Oral Route 1 time per day^Disp: ^Rfl: QUEtiapine (SEROQUEL) 100 mg tablet^Take 100 mg by mouth daily at bedtime.^Disp: ^Rfl: (Patient nottaking: Reported on 07/16/2022) lidocaine viscous (XYLOCAINE) 2 % solution^Take 5 mL by mouth as needed.^Disp: ^Rfl: (Patient not taking: Reported on 06/27/2022) pantoprazole DR (PROTONIX) 40 mg tablet^Take 1 tablet by mouth twice daily. Take on empty stomach, 1/2 hr before meal.^Disp: 60 tablet^Rfl: 0 budesonide-formoterol (SYMBICORT) 160-4.5 mcg/actuation inhaler^TWICE A DAY^Disp: ^Rfl: (Patient not taking: Reported on 06/27/2022) albuterol HFA (VENTOLIN HFA) 90 mcg/actuation inhaler^Inhale 2 Puffs as instructed every 6 hours asneeded for Wheezing/Shortness of Breath.^Disp: 1 Inhaler^Rfl: 2 (Patient not taking: Reported on 06/27/2022) loratadine (CLARITIN) 10 mg tablet^Take 1 tablet by mouth once daily.^Disp: 90 tablet^Rfl: 3 (Patient not taking: Reported on 06/27/2022) No medication comments found. MEDICATION COMPLIANCE: No SOCIAL INFORMATION: Living Arrangements: Homeless Does Patient Have Minor Children for Whom He/She is Responsible?: No Education Level: Some College Employment Status: Unemployed Is the Patient a [place]: No Stressors: Other: See Comment (Homelessness) Legal History: Arrests, Convictions, Probation Legal Details: 2011 - (M4) DISORDERLY CONDUCT; 2008 - (M1) DWI How Legal Issues Were Verified: [facility] [employer] Website, [facility], Other: See Comment ([facility]) Gender Specific Test: Not Applicable Sex at Time of : Male Patient Identified Gender: Male Preferred Pronoun: He/Him/His Sexual Orientation: Heterosexual OBSERVATIONS Physical Appearance Appears: Disheveled Speech Rate: Appropriate Volume: Appropriate Quality: Appropriate to Topic Quantity: Poverty of Speech Thought Processes Thought: Circumstantial Thought Content/Perceptions Delusions: None Observed Hallucinations: Patient Denies, None Evident Illusions: None Evident, Patient Denies Derealization: No Depersonalization: No Memory: Intact Recent, Intact Remote Cognition Impairment: None Intelligence Evaluation: Average Mood & Affect Patient Described Mood: tired Other Base Filler Described Mood: reserved Base Filler: CRISTIN Aguila Observed/Reported: Labile Range of Affect: Flat Sleep: No Disturbance Appetite: Normal Appetite Energy: No Significant Change in Energy Non-Suicidal Self Injury Non-Suicidal Self Injury: Patient Denies Suicidal Ideation Suicidal Ideation: Patient Denies Homicidal Ideation Homicidal Ideation: Patient Denies Access To Weapons Access To Weapons: No Medical Conditions Medical Conditions Increasing Risks: None CHEMICAL DEPENDENCY Toxicology Screen Results: Positive Positive Result: Amphetamines, Cocaine, Marijuana ACTIVITY Activities of Daily Living: Independent Mobility: No Assistance Continence: Continent MENTAL HEALTH SERVICES: Agency/Organization: [facility] Inpatient Mental Health Treatment History: Within Past 90 Days Details of Past Hospitalization: 07/01-07/07/2023 @ [facility], 02/27/2017 - 03/13/2017 @ [facility], 07/15/2016 - 07/23/2016 @ [facility] Last Hospitalization: 09/14/2023 @ [place] for psychosis Outpatient Mental Health Treatment History: Last know attended appt was in October 2022 per epic chart INTERVENTIONS Sources of Information: Patient, Epic, Prior Referrals, ED Staff Patient Assessed by Intake via: Face to Face Coordination of care with: ED RN, ED LIP Interventions: Therapeutic Interventions Therapeutic Interventions: Crisis Assessment Goals/Objectives: Discharge from hospital with referrals/linkage to supportive services/current providers DISPOSITION & PLAN: Patient Assessed by Intake via: Face to Face Patient stated goals: Goals: Other Goal Goal: to rest a bit and go to [place] Coordination of Care with: ED RN, ED LIP Assessment/Impressions: Discharge Plan: Discharge, Consult with Psychiatry on-call, ED Psych consult, or other provider Goals/Objectives: Discharge from hospital with referrals/linkage to supportive services/current providers Total time spent (minutes) in Supportive Care for this patient: 60 MEDICAL CLEARANCE Initial Date: 12/27/23 Initial Time: 626 Reviewed medical history with physician: Yes Reviewed abnormal labs with physician: Yes Discussed case with Dr. Miranda Mccarty who states that Matty Whitlock is not a candidate for admission. Is Patient Less Than 18 Years of Age or have a Guardian/Healthcare Power of Personal Care Aide?: No Disposition Date: 12/27/23 Disposition Time: 1200 SIGNATURE: CRISTIN Aguila PATIENT NAME: Matty Whitlock DATE: December 27, 2023 TIME: 12:16 PM [facility]09-01-2024 Miscellaneous Notes* Behavorial Health Intake - Celia Escamilla LSW - 12/27/2023 11:47 AM EDT BEHAVIORAL HEALTH INTAKE NOTE SERVICE DATE: 12/27/2023 SERVICE TIME: 1146 Nature of the crisis: Psychosis Presenting Problem: Matty Whitlock is a 33 year old male brought in to [facility], flight of ideas. Patient does have a prior history of crystal meth use and marijuana use, denies any current meth use but states he is still using marijuana. He states he has not been compliant with medications for a long period of time now. Patient has significant flight ofideas and is quite difficult to get an organized history from him. He is denying any current physical complaints at this time. Here in the emergency department, patient is hemodynamically stable. Patient is very anxious, quite hyperactive and extremely tangential with flight of ideas. At this time most highly suspect drug-induced psychosis versus yann secondary to noncompliance with his medication with history of bipolar disorder. Medical screening workup has been ordered, behavioral health consult has been ordered, final disposition will be determined after patient has been medically cleared and behavioral health has assessed the patient. Current Presentation (MSE) Intake spoke with the patient in person and he was observed to be A&Ox4 .Pt was unkempt and disheveled in appearance. He was reported to be easily agitated and hostile with staff, but was cooperative and calm with this assessment. Pt's affect was flat, thought process was circumstantial regarding his homelessness, and thought content showed no evidence of hallucinations, delusions, and/or preo ccupations. Pt's speech was appropriate in respect to rate, volume, quality, and poverty of speech in respect to quantity. Assessment Pt reported an ambulance brought him into the ED for anxiety concerns. He informed [facility] and needed to get away from there. He stated that he has been homeless for awhile, and reports hearing and seeing volatile things around that area, but would not elaborate on this. When asked if he would like homeless skilled nursing resources for the area, he advised he has not been staying at homeless shelters outof spite and instead wanted to go to [place] shelters instead. Pt was asked about any family orsupport systems and he stated he has not been in contact with family for a long time. He reported no changes in eating, sleeping, or appetite. His goal for today was to rest a bit [facility] Suicidal Ideations/Homicidal Ideations/self-Harm Behaviors Pt reports no current or prior hx of suicidal, homicidal or self-harm thoughts and behaviors Mental Health History Pt has a hx of FAISAL, schizoaffective disorder, bipolar type and polysubstance use disorder. He was on Seroquel but stopped taking it awhile ago because it made me feel fat. He has previously been seeing a provider at [facility], last known appt was over a yearago. Pt has had several inpatient admissions: 09/14/23 at [facility] for psychosis ([facility]), 06/2023 at [facility] for psychosis, 02/2017 and 06/2016 at [facility] for substance induced psychosis. SOCIAL HISTORY: Social History Tobacco Use Smoking status: Former Current packs/day: 0.00 Types: Cigarettes Quit date: 03/18/2017 Years since quittin.7 Smokeless tobacco: Never Vaping Use Vaping status: Never Used Substance Use Topics Alcohol use: No Comment: previous alcohol problem Drug use: No Types: Crystal Meth, Marijuana Comment: previous use of crystal meth x1 month MEDICATIONS: busPIRone (BUSPAR) 7.5 mg tablet^Take by mouth.^Disp: ^Rfl: QUEtiapine (SEROQUEL) 200 mg tablet^Take 200 mg by mouth daily at bedtime.^Disp: ^Rfl: nicotine (NICODERM) 21 mg/24 hr^Apply 1 Patch by transdermal route 1 time per day^Disp: ^Rfl: cloNIDine HCl (CATAPRES) 0.2 mg tablet^Take 1 Tablet By Oral Route 1 time per day^Disp: ^Rfl: QUEtiapine (SEROQUEL) 100 mg tablet^Take 100 mg by mouth daily at bedtime.^Disp: ^Rfl: (Patient nottaking: Reported on 07/16/2022) lidocaine viscous (XYLOCAINE) 2 % solution^Take 5 mL by mouth as needed.^Disp: ^Rfl: (Patient not taking: Reported on 06/27/2022) pantoprazole DR (PROTONIX) 40 mg tablet^Take 1 tablet by mouth twice daily. Take on empty stomach, 1/2 hr before meal.^Disp: 60 tablet^Rfl: 0 budesonide-formoterol (SYMBICORT) 160-4.5 mcg/actuation inhaler^TWICE A DAY^Disp: ^Rfl: (Patient not taking: Reported on 06/27/2022) albuterol HFA (VENTOLIN HFA) 90 mcg/actuation inhaler^Inhale 2 Puffs as instructed every 6 hours asneeded for Wheezing/Shortness of Breath.^Disp: 1 Inhaler^Rfl: 2 (Patient not taking: Reported on 06/27/2022) loratadine (CLARITIN) 10 mg tablet^Take 1 tablet by mouth once daily.^Disp: 90 tablet^Rfl: 3 (Patient not taking: Reported on 06/27/2022) No medication comments found. MEDICATION COMPLIANCE: No SOCIAL INFORMATION: Living Arrangements: Homeless Does Patient Have Minor Children for Whom He/She is Responsible?: No Education Level: Some College Employment Status: Unemployed Is the Patient a [place]: No Stressors: Other: See Comment (Homelessness) Legal History: Arrests, Convictions, Probation Legal Details: 2011 - (M4) DISORDERLY CONDUCT; 2008 - (M1) DWI How Legal Issues Were Verified: [facility] [employer] Website, [facility] Sexual Offender Website, Other: See Comment ([facility]) Gender Specific Test: Not Applicable Sex at Time of : Male Patient Identified Gender: Male Preferred Pronoun: He/Him/His Sexual Orientation: Heterosexual OBSERVATIONS Physical Appearance Appears: Disheveled Speech Rate: Appropriate Volume: Appropriate Quality: Appropriate to Topic Quantity: Poverty of Speech Thought Processes Thought: Circumstantial Thought Content/Perceptions Delusions: None Observed Hallucinations: Patient Denies, None Evident Illusions: None Evident, Patient Denies Derealization: No Depersonalization: No Memory: Intact Recent, Intact Remote Cognition Impairment: None Intelligence Evaluation: Average Mood & Affect Patient Described Mood: tired Other Base Filler Described Mood: reserved Base Filler: CRISTIN Aguila Observed/Reported: Labile Range of Affect: Flat Sleep: No Disturbance Appetite: Normal Appetite Energy: No Significant Change in Energy Non-Suicidal Self Injury Non-Suicidal Self Injury: Patient Denies Suicidal Ideation Suicidal Ideation: Patient Denies Homicidal Ideation Homicidal Ideation: Patient Denies Access To Weapons Access To Weapons: No Medical Conditions Medical Conditions Increasing Risks: None CHEMICAL DEPENDENCY Toxicology Screen Results: Positive Positive Result: Amphetamines, Cocaine, Marijuana ACTIVITY Activities of Daily Living: Independent Mobility: No Assistance Continence: Continent MENTAL HEALTH SERVICES: Agency/Organization: [facility] Inpatient Mental Health Treatment History: Within Past 90 Days Details of Past Hospitalization: 07/01-07/07/2023 @ [facility], 02/27/2017 - 03/13/2017 @ [facility], 07/15/2016 - 07/23/2016 @ [facility] Last Hospitalization: 09/14/2023 @ [facility] for psychosis Outpatient Mental Health Treatment History: Last know attended appt was in October 2022 per epic chart INTERVENTIONS Sources of Information: Patient, Epic, Prior Referrals, ED Staff Patient Assessed by Intake via: Face to Face Coordination of care with: ED RN, ED LIP Interventions: Therapeutic Interventions Therapeutic Interventions: Crisis Assessment Goals/Objectives: Discharge from hospital with referrals/linkage to supportive services/current providers DISPOSITION & PLAN: Patient Assessed by Intake via: Face to Face Patient stated goals: Goals: Other Goal Goal: to rest a bit and go to [place] Coordination of Care with: ED RN, ED LIP Assessment/Impressions: Discharge Plan: Discharge, Consult with Psychiatry on-call, ED Psych consult, or other provider Goals/Objectives: Discharge from hospital with referrals/linkage to supportive services/current providers Total time spent (minutes) in Supportive Care for this patient: 60 MEDICAL CLEARANCE Initial Date: 12/27/23 Initial Time: 626 Reviewed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 sedated. PAST HISTORY Past Medical History: has no past medical history on file. Per EMR the patient has history of anxiety, ADHD, bipolar disorder, esophagitis, asthma, schizoaffective disorder Past Surgical History: has no past surgical history on file. No known recent surgical history. Social History: Unknown at this time Family History: family history is not on file. Unless otherwise noted, family history is non contributory Patient's Medications No medications on file The patient s home medications have been reviewed. Allergies: Patient has no known allergies. RESULTS All laboratory and radiology results have been personally reviewed by myself LABS: Labs Reviewed CBC WITH AUTO DIFFERENTIAL - Abnormal Result Value WBC 15.0 (*) nRBC 0.0 RBC 5.45 Hemoglobin 15.3 Hematocrit 46.5 MCV 85 MCH 28.1 MCHC 32.9 RDW 14.9 (*) Platelets 384 Neutrophils % 69.7 Immature Granulocytes %, Automated 0.5 Lymphocytes % 23.4 Monocytes % 4.6 Eosinophils % 1.5 Basophils % 0.3 Neutrophils Absolute 10.47 (*) Immature Granulocytes Absolute, Automated 0.07 Lymphocytes Absolute 3.51 Monocytes Absolute 0.69 Eosinophils Absolute 0.22 Basophils Absolute 0.05 COMPREHENSIVE METABOLIC PANEL - Abnormal Glucose 94 Sodium 144 Potassium 3.5 Chloride 105 Bicarbonate 20 (*) Anion Gap 23 (*) Urea Nitrogen 8 Creatinine 0.92 eGFR >90 Calcium 8.7 Albumin 4.9 Alkaline Phosphatase 58 Total Protein 7.3 AST 22 Bilirubin, Total 0.3 ALT 14 DRUG SCREEN,URINE - Abnormal Amphetamine Screen, Urine Presumptive Negative Barbiturate Screen, Urine Presumptive Negative Benzodiazepines Screen, Urine Presumptive Negative Cannabinoid Screen, Urine Presumptive Positive (*) Cocaine Metabolite Screen, Urine Presumptive Negative Fentanyl Screen, Urine Presumptive Negative Opiate Screen, Urine Presumptive Negative Oxycodone Screen, Urine Presumptive Negative PCP Screen, Urine Presumptive Negative Methadone Screen, Urine Presumptive Negative Narrative: Drug screen results are presumptive and should not be used to assess compliance with prescribed medication. Contact the performing [facility] laboratory to add-on definitive confirmatory testing if clinically indicated. Toxicology screening results are reported qualitatively. The concentration must be greater than or equal to the cutoff to be reported as positive. The concentration at which the screening test can detect an individual drug or metabolite varies. The absence of expected drug(s) and/or drug metabolite(s) may indicate non-compliance, inappropriate timing of specimen collection relative to drug administration, poor drug absorption, diluted/adulterated urine, or limitations of testing. For medical purposes only; not valid for forensic use. Interpretive questions should be directed to the laboratory medical directors. ALCOHOL - Abnormal Alcohol 242 (*) ACETAMINOPHEN - Normal Acetaminophen <10.0 SALICYLATE - Normal Salicylate <3 URINALYSIS WITH REFLEX CULTURE AND MICROSCOPIC - Normal Color, Urine Light-Yellow Appearance, Urine Clear Specific [place], Urine 1.005 pH, Urine 6.0 Protein, Urine NEGATIVE Glucose, Urine Normal Blood, Urine NEGATIVE Ketones, Urine NEGATIVE Bilirubin, Urine NEGATIVE Urobilinogen, Urine Normal Nitrite, Urine NEGATIVE Leukocyte Esterase, Urine NEGATIVE POCT GLUCOSE - Normal POCT Glucose 98 URINALYSIS WITH REFLEX CULTURE AND MICROSCOPIC Narrative: The following orders were created for panel order Urinalysis with Reflex Culture and Microscopic. Procedure Abnormality Status --------- ------ Urinalysis with Reflex C...[[id number]] Normal Final result Extra Urine Prado Tube[[id number]] Please view results for these tests on the individual orders. EXTRA URINE PRADO TUBE POCT GLUCOSE METER RADIOLOGY: Interpreted by Radiologist. XR hand right 3+ views Final Result No evidence of acute fracture or dislocation. No evidence of radiopaque foreign body. Signed by: Gerald Niño 08/11/2023 12:17 AM Dictation workstation: [id number] No results found for this or any previous visit (from the past 4464 hour(s)). NURSING NOTES AND VITALS REVIEWED The nursing notes within the ED encounter and vital signs as below have been reviewed. BP 120/76 Pulse 82 Temp 36.7 C (98 F) Resp 17 Ht 1.778 m (5' 10) Wt 68 kg (150 lb) SpO2 98% BMI 21.52 kg/m Oxygen Saturation Interpretation: Normal PHYSICAL EXAM Physical Exam Vitals and nursing note reviewed. Constitutional: General: He is not in acute distress. Appearance: He is well-developed. He is not ill-appearing or toxic-appearing. Comments: On arrival was calm, then became acutely agitated and uncooperative. HENT: Head: Normocephalic and atraumatic. Nose: Nose normal. Mouth/Throat: Mouth: Mucous membranes are moist. Pharynx: Oropharynx is clear. No oropharyngeal exudate or posterior oropharyngeal erythema. Eyes: General: No scleral icterus. Extraocular Movements: Extraocular movements intact. Conjunctiva/sclera: Conjunctivae normal. Pupils: Pupils are equal, round, and reactive to light. Cardiovascular: Rate and Rhythm: Normal rate and regular rhythm. Pulses: Normal pulses. Heart sounds: Normal heart sounds. No murmur heard. Pulmonary: Effort: Pulmonary effort is normal. No respiratory distress. Breath sounds: Normal breath sounds. No stridor. No wheezing, rhonchi or rales. Abdominal: General: There is no distension. Palpations: Abdomen is soft. There is no mass. Tenderness: There is no abdominal tenderness. There is no guarding or rebound. Hernia: No hernia is present. Musculoskeletal: General: No swelling. Cervical back: Normal range of motion and neck supple. No rigidity or tenderness. Right lower leg: No edema. Left lower leg: No edema. Skin: General: Skin is warm and dry. Capillary Refill: Capillary refill takes less than 2 seconds. Findings: No rash. Comments: Several small cuts over the dorsum of the right hand Neurological: Mental Status: He is alert. Comments: Initially was alert and oriented x 3. At some point he became agitated and inconsolable and uncooperative. He was moving all 4 extremities. Speech was grossly normal. He started screaming and yelling at staff. Procedures Suture Repair per [facility] COURSE/MEDICAL DECISION MAKING Medical Decision Making: Patient was seen and evaluated by me. Patient had already been sedated secondary to acute agitation. Wound repair of right hand performed by the NORMA Smith. Patient has been medically cleared. ETOH 242 Presently the patient is sleeping and cooperative. Patient is signed out to the [facility] ED Physician Dr Kati Barrios on shift change at 0700 ED Course as of 08/11/23 0610 ThuAug 11, 2023 0018 EKG at 2333 interpreted by me. Sinus tachycardia rate 113 bpm. [place] normal. CO 150 ms, QRS 92 ms, QT [address]-T change. No notes of acute ischemia. No STEMI. [EC] 0020 CBC and Auto Differential(!) White blood cell count 15.0, hemoglobin 15.3, Sebastian crit 46.5, platelet count 384,000, [EC] 0021 Drug Screen, Urine(!) Urine drug screen is positive for presumptive cannabinoids. Otherwise negative. [EC] 0021 Rypgb-en-daiz glucose was normal at 98. [EC] 0208 Comprehensive metabolic panel(!) Comprehensive metabolic panel is grossly unremarkable. [EC] 0208 Salicylate is normal at less than 3 Acetaminophen less than 10 [EC] 0300 Patient is medically cleared for evaluation by psychiatry [EC] 0444 Ethanol(!) Ethanol 242 [EC] ED Course User Index [EC] Wes Jackson DO Diagnoses as of 08/11/23 0610 Acute psychosis (Multi) Alcohol intoxication with delirium ([facility]) Cannabis use disorder Complicated laceration of hand, right, initial encounter Counseling: The emergency provider has spoken with the patient and discussed today s results, in addition to providing specific details for the plan of care and counseling regarding the diagnosis and prognosis. Questions are answered at this time and they are agreeable with the plan. IMPRESSION AND DISPOSITION IMPRESSION 1. Acute psychosis (Multi) 2. Alcohol intoxication with delirium (CMS-HCC) 3. Cannabis use disorder 4. Complicated laceration of hand, right, initial encounter DISPOSITION Disposition: signed out at [address] Kati Barrios Patient condition is stable Billing Provider Critical Care Time: 0 minutes Wes Jackson DO 08/11/23 0453 Wes Jackson DO 08/11/23 0512 Wes Jackson DO 08/11/23 0610 documented in this [facility] Work Phone: 1([phone]) 771-750804-15-2024 Emergency department Note* Pina Watkins RN - 08/10/2023 10:48 PM EDT Pt is continuously screaming in room, this RN offered toileting and water to pt which he declined, pt states that he wants his vape back and to be taken out of restraints, however pt is still a threat to himself and others, pt medicated with ketamine per orders, placed on chocolate molder and cont pulse ox, O2 available at bedside, suction at bedside, pt is now chemically restrained, pt removed from hard restraints, pt is in psych safe room, continuous video monitoring Pina Watkins RN 08/11/23 0013 [facility] Work Phone: [phone]) 801-603904-15-2024 Emergency department Note* Pina Watkins RN - 08/10/2023 10:20 PM EDT Pt is becoming aggressive towards staff and is hitting his head on the wall, pt was unable to be redirected, security at bedside, hard restraints placed per NORMA Engel orders Pina Watkins RN 08/11/23 0010 [facility] Work Phone: 1([phone]) 693-251104-15-2024 Emergency department Note* Pina Watkins RN - 08/10/2023 9:45 PM EDT Pt is screaming in room, this RN and security tried to redirect pt, he states that we are all wizards and witches, he states that he is anxious and to leave him alone and that he is scared, PA Toro made aware and to place orders Pina Watkins RN 08/11/236 [facility] Work Phone: 1(208) 453-375304-15-2024 Emergency department Note* Celia Finn RN - 08/10/2023 8:52 PM EDT Patient to ed after he was in a argument with his and punched a window; lacerating his right hand. Hand soaked in hibiclense to clean wounds Celia Finn RN 08/10/232052 [facility] Work Phone: 1([phone]) 492-929304-15-2024 History of Present illness Narrative* Wes Jackson DO - 08/10/2023 8:44 PM EDT Behavioral Restraint / Seclusion Face to Face Assessment Patient Name: Matty Whitlock Date of : 1990 Time Restraints were placed: Restraint Type Locking R arm/hand (V): CONTINUED (08/10/232234 : Pina Watkins RN) Locking L arm/hand (V): CONTINUED (08/10/232234 : Pina Watkins RN) Locking R leg (V): CONTINUED (08/10/232234 : Pina Watkins RN) Locking L leg (V): CONTINUED (08/10/232234 : Pina Watkins RN) Date Assessment was completed: 08/10/23 Time patient was assessed: 1020 pm Description of behavior causing restraint/seclusion: demonstrating self destructive behavior (cutting, hitting vanessa, etc.) and combative and striking out at staff or others Type of intervention: Mechanical restraint Patient's immediate situation: aggressive and acute psychosis Alternatives Attempted: Alternatives attempted and have been ineffective. Contraindications for Restraints: Reviewed contraindications for continued restraint use and agree to on-going need. Patent's reaction to intervention: continues to be agitated Patient's medical condition: vital signs stable, normal circulation and breathing, positioned safely based upon medical and psychological issues, skin is protected, and hydration and nutrition are addressed Patient's behavioral condition: Other improved with medical treatment. Plan: Discontinue restraints when patient meets criteria * Rajesh BarberDO catina - 08/10/2023 8:44 PM EDT Emergency Medicine Transition of Care Note. I received Matty Whitlock in signout from Dr. Dominique. Please see the previous ED provider note for all HPI, PE and MDM up to the time of signout at 0700. This is in addition to the primary record. In brief Matty Whitlock is an 33 y.o. male presenting for Chief Complaint Patient presents with Hand Injury At the time of signout we were awaiting: [facility] ED Course as of 08/11/23 0956 ThuAug 11, 2023 0018 EKG at 2333 interpreted by me. Sinus tachycardia rate 113 bpm. [place] normal. CO 150 ms, QRS 92 ms, QT [address]-T change. No notes of acute ischemia. No STEMI. [EC] 0020 CBC and Auto Differential(!) White blood cell count 15.0, hemoglobin 15.3, Sebastian crit 46.5, platelet count 384,000, [EC] 0021 Drug Screen, Urine(!) Urine drug screen is positive for presumptive cannabinoids. Otherwise negative. [EC] 0021 Thngq-si-iurr glucose was normal at 98. [EC] 0208 Comprehensive metabolic panel(!) Comprehensive metabolic panel is grossly unremarkable. [EC] 0208 Salicylate is normal at less than 3 Acetaminophen less than 10 [EC] 0300 Patient is medically cleared for evaluation by psychiatry [EC] 0444 Ethanol(!) Ethanol 242 [EC] ED Course User Index [EC] Wes Jackson DO Diagnoses as of 08/11/23 0956 Acute psychosis (Multi) Alcohol intoxication with delirium ([facility]) Cannabis use disorder Complicated laceration of hand, right, initial encounter Medical Decision Making Patient is at his baseline he is alert oriented at this time he is not suicidal homicidal he is calm and collective EP[facility] saw him and they cleared him to be discharged home. I agree with their assessment he is well-appearing at this time with no agitation patient will be discharged Final diagnoses: [F23] Acute psychosis (Multi) [F10.921] Alcohol intoxication with delirium (CMS-HCC) [F12.90] Cannabis use disorder [S61.411A] Complicated laceration of hand, right, initial encounter Procedure Procedures [facility]rios [facility]: 1(710) 563-952504-15-2024 Physician Emergency department Note* Wes Jackson DO - 08/10/2023 8:44 PM EDT Department of Emergency Medicine ED Provider Note Admit Date/RoomTime: 08/10/2023 8:47 PM ED Room: [place] [address] History of Present Illness: Matty Whitlock is a 33 y.o. male presenting to the ED for LACERATIONS OF RIGHT HAND, beginning today.The complaint has been today after getting in argument with girlfriend and punching a window , moderate in severity, and worsened by nothing. Patient apparently arrived via EMS. Patient then had a phone conversation with the girlfriend's . Shortly after that, the patient became agitated and uncooperative, not making sense, and patient requires sedation. Patient was initially seen by the physician assistant tennis professional. The patient was initially given some Ativan and Haldol IM Benadryl. This was ineffective. He was then given some ketamine for chemical restraint as the patient was very agitated bleeding from his right hand and not redirectable. All attempts at getting the patient to be cooperative failed. It is reported to me that the patient was just released from inpatient psychiatric hospital where he met his current girlfriend. He apparently was at her home today and there was an argumentand he punched a window causing cuts to his right hand. Review of Systems: Pertinent positives and review of systems as noted above. Remaining 10 review of systems is negative or noncontributory to today's episode of care. Review of Systems A complete review of systems cannot be obtained at this time. The patient was agitated and sedated. PAST HISTORY Past Medical History: has no past medical history on file. Per EMR the patient has history of anxiety, ADHD, bipolar disorder, esophagitis, asthma, schizoaffective disorder Past Surgical History: has no past surgical history on file. No known recent surgical history. Social History: Unknown at this time Family History: family history is not on file. Unless otherwise noted, family history is non contributory Patient's Medications No medications on file The patient s home medications have been reviewed. Allergies: Patient has no known allergies. RESULTS All laboratory and radiology results have been personally reviewed by myself LABS: Labs Reviewed CBC WITH AUTO DIFFERENTIAL - Abnormal Result Value WBC 15.0 (*) nRBC 0.0 RBC 5.45 Hemoglobin 15.3 Hematocrit 46.5 MCV 85 MCH 28.1 MCHC 32.9 RDW 14.9 (*) Platelets 384 Neutrophils % 69.7 Immature Granulocytes %, Automated 0.5 Lymphocytes % 23.4 Monocytes % 4.6 Eosinophils % 1.5 Basophils % 0.3 Neutrophils Absolute 10.47 (*) Immature Granulocytes Absolute, Automated 0.07 Lymphocytes Absolute 3.51 Monocytes Absolute 0.69 Eosinophils Absolute 0.22 Basophils Absolute 0.05 COMPREHENSIVE METABOLIC PANEL - Abnormal Glucose 94 Sodium 144 Potassium 3.5 Chloride 105 Bicarbonate 20 (*) Anion Gap 23 (*) Urea Nitrogen 8 Creatinine 0.92 eGFR >90 Calcium 8.7 Albumin 4.9 Alkaline Phosphatase 58 Total Protein 7.3 AST 22 Bilirubin, Total 0.3 ALT 14 DRUG SCREEN,URINE - Abnormal Amphetamine Screen, Urine Presumptive Negative Barbiturate Screen, Urine Presumptive Negative Benzodiazepines Screen, Urine Presumptive Negative Cannabinoid Screen, Urine Presumptive Positive (*) Cocaine Metabolite Screen, Urine Presumptive Negative Fentanyl Screen, Urine Presumptive Negative Opiate Screen, Urine Presumptive Negative Oxycodone Screen, Urine Presumptive Negative PCP Screen, Urine Presumptive Negative Methadone Screen, Urine Presumptive Negative Narrative: Drug screen results are presumptive and should not be used to assess compliance with prescribed medication. Contact the performing [facility] laboratory to add-on definitive confirmatory testing if clinically indicated. Toxicology screening results are reported qualitatively. The concentration must be greater than or equal to the cutoff to be reported as positive. The concentration at which the screening test can detect an individual drug or metabolite varies. The absence of expected drug(s) and/or drug metabolite(s) may indicate non-compliance, inappropriate timing of specimen collection relative to drug administration, poor drug absorption, diluted/adulterated urine, or limitations of testing. For medical purposes only; not valid for forensic use. Interpretive questions should be directed to the laboratory medical directors. ALCOHOL - Abnormal Alcohol 242 (*) ACETAMINOPHEN - Normal Acetaminophen <10.0 SALICYLATE - Normal Salicylate <3 URINALYSIS WITH REFLEX CULTURE AND MICROSCOPIC - Normal Color, Urine Light-Yellow Appearance, Urine Clear Specific [place], Urine 1.005 pH, Urine 6.0 Protein, Urine NEGATIVE Glucose, Urine Normal Blood, Urine NEGATIVE Ketones, Urine NEGATIVE Bilirubin, Urine NEGATIVE Urobilinogen, Urine Normal Nitrite, Urine NEGATIVE Leukocyte Esterase, Urine NEGATIVE POCT GLUCOSE - Normal POCT Glucose 98 URINALYSIS WITH REFLEX CULTURE AND MICROSCOPIC Narrative: The following orders were created for panel order Urinalysis with Reflex Culture and Microscopic. Procedure Abnormality Status --------- ------ Urinalysis with Reflex C...[[id number]] Normal Final result Extra Urine Prado Tube[[id number]] Please view results for these tests on the individual orders. EXTRA URINE PRADO TUBE POCT GLUCOSE METER RADIOLOGY: Interpreted by Radiologist. XR hand right 3+ views Final Result No evidence of acute fracture or dislocation. No evidence of radiopaque foreign body. Signed by: Gerald Niño 08/11/2023 12:17 AM Dictation workstation: [id number] No results found for this or any previous visit (from the past 4464 hour(s)). NURSING NOTES AND VITALS REVIEWED The nursing notes within the ED encounter and vital signs as below have been reviewed. BP 120/76 Pulse 82 Temp 36.7 C (98 F) Resp 17 Ht 1.778 m (5' 10) Wt 68 kg (150 lb) SpO2 98% BMI 21.52 kg/m Oxygen Saturation Interpretation: Normal PHYSICAL EXAM Physical Exam Vitals and nursing note reviewed. Constitutional: General: He is not in acute distress. Appearance: He is well-developed. He is not ill-appearing or toxic-appearing. Comments: On arrival was calm, then became acutely agitated and uncooperative. HENT: Head: Normocephalic and atraumatic. Nose: Nose normal. Mouth/Throat: Mouth: Mucous membranes are moist. Pharynx: Oropharynx is clear. No oropharyngeal exudate or posterior oropharyngeal erythema. Eyes: General: No scleral icterus. Extraocular Movements: Extraocular movements intact. Conjunctiva/sclera: Conjunctivae normal. Pupils: Pupils are equal, round, and reactive to light. Cardiovascular: Rate and Rhythm: Normal rate and regular rhythm. Pulses: Normal pulses. Heart sounds: Normal heart sounds. No murmur heard. Pulmonary: Effort: Pulmonary effort is normal. No respiratory distress. Breath sounds: Normal breath sounds. No stridor. No wheezing, rhonchi or rales. Abdominal: General: There is no distension. Palpations: Abdomen is soft. There is no mass. Tenderness: There is no abdominal tenderness. There is no guarding or rebound. Hernia: No hernia is present. Musculoskeletal: General: No swelling. Cervical back: Normal range of motion and neck supple. No rigidity or tenderness. Right lower leg: No edema. Left lower leg: No edema. Skin: General: Skin is warm and dry. Capillary Refill: Capillary refill takes less than 2 seconds. Findings: No rash. Comments: Several small cuts over the dorsum of the right hand Neurological: Mental Status: He is alert. Comments: Initially was alert and oriented x 3. At some point he became agitated and inconsolable and uncooperative. He was moving all 4 extremities. Speech was grossly normal. He started screaming and yelling at staff. Procedures Suture Repair per Toro GREEN ED COURSE/MEDICAL DECISION MAKING Medical Decision Making: Patient was seen and evaluated by me. Patient had already been sedated secondary to acute agitation. Wound repair of right hand performed by the NORMA Smith. Patient has been medically cleared. ETOH 242 Presently the patient is sleeping and cooperative. Patient is signed out to the oncoming ED Physician Dr Kati Barrios on shift change at 0700 ED Course as of 08/11/23 0610 ThuAug 11, 2023 0018 EKG at 2333 interpreted by me. Sinus tachycardia rate 113 bpm. [place] normal. CO 150 ms, QRS 92 ms, QT [address]-T change. No notes of acute ischemia. No STEMI. [EC] 0020 CBC and Auto Differential(!) White blood cell count 15.0, hemoglobin 15.3, Sebastian crit 46.5, platelet count 384,000, [EC] 0021 Drug Screen, Urine(!) Urine drug screen is positive for presumptive cannabinoids. Otherwise negative. [EC] 0021 Femxl-nf-xkhm glucose was normal at 98. [EC] 0208 Comprehensive metabolic panel(!) Comprehensive metabolic panel is grossly unremarkable. [EC] 0208 Salicylate is normal at less than 3 Acetaminophen less than 10 [EC] 0300 Patient is medically cleared for evaluation by psychiatry [EC] 0444 Ethanol(!) Ethanol 242 [EC] ED Course User Index [EC] Wes Jackson, Diagnoses as of 08/11/23 0610 Acute psychosis (Multi) Alcohol intoxication with delirium ([facility]) Cannabis use disorder Complicated laceration of hand, right, initial encounter Counseling: The emergency provider has spoken with the patient and discussed today s results, in addition to providing specific details for the plan of care and counseling regarding the diagnosis and prognosis. Questions are answered at this time and they are agreeable with the plan. IMPRESSION AND DISPOSITION IMPRESSION 1. Acute psychosis (Multi) 2. Alcohol intoxication with delirium ([facility]) 3. Cannabis use disorder 4. Complicated laceration of hand, right, initial encounter DISPOSITION Disposition: signed out at [address] Kati Barrios Patient condition is stable Billing Provider Critical Care Time: 0 minutes Wes Jackson DO 08/11/23 0453 Wse Jackson DO 08/11/23 0512 Wes Jackson DO 08/11/23 0610 [facility] Work Phone: 1(874) 119-837503-07-2024 Discharge summary Author Hieu Man [facility] July 02, 2023 5:54am Note Date/Time July 02, 2023 12:5 3am [facility] Medical Records Department [address] [place] [address] Emergency Department Summary 07/02/23 MR#: [id number] Acct: [id number] Name: MATTY WHITLOCK Rep #:[id number] : 1990 33 From: Hieu Man MD PCP: Dr. Laine Dye MD Status:REG ER Location: ED HPI HPI - Psych History of Present Illness Chief Complaint: Mental Health Informant: patient Narrative Narrative: Patient presents voluntarily for mental health evaluation. He states he was staying at really recovered, a sober house. 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 He states tonight he was triggered by someone asking him questions in front of agroup, he was offended and frustrated by this and his reaction generally is to remove himself from the situation. He did this and wants to go back there at some point and fears that he needs to be admitted to psychiatry in order for this to happen so that is what he is essentially requesting. However, it takes some time to get him to say this because he is very tangential and goes from 1 story to the next, speaking about how he has seen demons in others, about how the entire town of [place] is laden with evil, and also some occasional delusions of paranoia and ideas of reference in many of his stories. He denies any physical symptoms, injury, illness, or drug use recently. [facility] Medical History Anxiety Anxiety Asthma Asthma Bipolar 1 disorder Depression Depression Former smoker History of alcohol abuse History of edema History of gastritis History of GERD History of pain when walking History of substance abuse Hx of fracture of tibia Marijuana use Restless legs Schizoaffective disorder, bipolar type SOB (shortness of breath) Wears glasses Home Medications doxycycline hyclate 100 mg capsule 100 mg PO BID #60 caps 01/22/22 [Rx Last Taken Unknown] clonidine HCl 0.2 mg tablet 0.2 mg PO BID 09/17/22 [History Last Taken Unknown] quetiapine 100 mg tablet (Seroquel) 150 mg PO QHS 09/17/22 [History Last Taken Unknown] budesonide-formoterol HFA 80 mcg-4.5 mcg/actuation aerosol inhaler (Symbicort) inhalation 01/04/23 [History Last Taken Unknown] lorazepam 0.5 mg tablet 0.5 mg PO DAILY PRN Stress and or anxiety 01/04/23 [History Last Taken Unknown] ropinirole 0.25 mg tablet 0.25 mg PO QHS 01/04/23 [History Last Taken Unknown] buspirone 7.5 mg tablet 7.5 mg PO BID 07/02/23 [History Last Taken Unknown] Allergy/AdvReac Type Severity Reaction Status Date / Time ondansetron [From Zofran] AdvReac Other Verified 07/02/23 00:14 Social History Smoking Status: Current every day smoker tobacco type: cigarettes and smokelesstobacco alcohol intake: former substance use type: does not use and other details: Former use of Marijuana ROS ROS ED Constitutional Constitutional ED: Denies chills or fever(s) Eyes Eyes: Denies change in vision or diplopia ENT ENT ED: Denies rhinorrhea or sore throat Cardiovascular Cardiovascular: Denies chest pain or palpitations Respiratory/Chest Respiratory/Chest: Denies cough or dyspnea Gastrointestinal Gastrointestinal: Denies abdominal pain, diarrhea, nausea or vomiting Genitourinary Genitourinary ED: Denies dysuria or hematuria Musculoskeletal Musculoskeletal: Denies back pain or neck pain Integumentary Denies abscess or rash Neurologic Neurologic: Denies headache(s), paresthesias or weakness Psychiatric Psychiatric: Denies anxiety or suicidal thoughts EXAM Physical Exam Const Vital Signs: 07/02/23 00:10 07/02/23 01:10 07/02/23 02:00 Temperature 98.0 F Temperature Source Temporal Pulse Rate 109 H Respiratory Rate 18 16 16 Blood Pressure 129/82 H Blood Pressure Mean 97 Pulse Ox 99 Oxygen Delivery Method Room Air 07/02/23 03:00 07/02/23 04:00 07/02/23 04:26 Temperature Temperature Source Pulse Rate 90 Respiratory Rate 15 16 Blood Pressure Blood Pressure Mean Pulse Ox Oxygen Delivery Method Positive well nourished and well developed General Appearance ED: well developed and NAD HEENT Reports moist mucous membranes normocephalic and atraumatic Eyes PERRL and EOMs intact bilaterally Neck full ROM and supple Resp normal respiratory effort and clear to auscultation bilaterally Cardio regular rate, regular rhythm and no murmurs GI non-tender and non-distended Auscultation: normoactive bowel sounds Palpation: soft Back/Spine no CVA tenderness General Back: other FROM Extremity normal to inspection General Extremety ED: Negative for edema, pulses abnormal or tenderness General Extremity: Negative for edema or pulses abnormal Neuro oriented x3, CN's II-XII intact bilaterally and no sensory deficits noted Sensorium / Orientation: awake and alert Motor Exam: strength 5/5 throughout Psych denies homicidal ideation and denies suicidal ideation Appearance: grossly normal and appropriate Attitude: engaged Activity / Motor Behavior: appropriate eye contact Speech: pressured Thought Process: flight of ideas, tangential and racing thoughts Thought Content: ideas of reference and rumination(s) Insight: fair Judgement: judgement good Skin no rashes or lesions noted and no wounds MDM MDM MDM Narrative Medical decision making narrative: Labs, toxicology, alcohol all reviewed and unremarkable. Patient is medically cleared for crisis to evaluate. He is not actively suicidal or homicidal, however I do believe he is potentially psychotic with regards to his psychiatricevaluation and he thinks he needs to be admitted to inpatient. I will have crisis evaluate him. They did so. They believe that the patient is potentially acutely manic versus an exacerbation of his schizoaffective disorder. He does present like a psychosis and pressured speech/tangentiality so I agree. Plan is for placement which is pending at this time. Patient was asking her for something help him calm down because apparently the conversation cause him to be a little agitated,he was able to go to the bathroom and back to the room without any significant consequences so I am ordering a dose of hydroxyzine. Lab Data Attestation: I reviewed the patient's lab results. Labs: Laboratory Results - last 24 hr 07/02/23 07/02/23 00:55 00:58 WBC 11.6 H RBC 4.47 L Hgb 12.6 L Hct 38.6 L MCV 86.4 MCH 28.2 MCHC 32.6 RDW Std Deviation 47.8 H RDW Coeff of Klaus 15.0 H Plt Count 290 MPV 10.5 Immature Gran % (Auto) 0.300 Neut % (Auto) 56.4 Lymph % (Auto) 34.2 Noble % (Auto) 6.3 Eos % (Auto) 2.2 Baso % (Auto) 0.6 Absolute Neuts (auto) 6.5 Absolute Lymphs (auto) 3.96 Nucleated RBC % 0 Sodium 141 Potassium 4.2 Chloride 108 H Carbon Dioxide 27.0 Anion Gap 6 BUN 15 Creatinine 0.83 Estim Creat Clear Calc 119.46 Est GFR (MDRD) Af Amer 137 Est GFR (MDRD) Non-Af 113 BUN/Creatinine Ratio 18.0 Glucose 106 Calcium 8.9 Urine Opiates Screen NEGATIVE Urine Methadone Screen NEGATIVE Ur Barbiturates Screen NEGATIVE Ur Phencyclidine Scrn NEGATIVE Ur Amphetamines Screen NEGATIVE MDMA (Ecstasy) Screen NEGATIVE U Benzodiazepines Scrn NEGATIVE Urine Cocaine Screen NEGATIVE U Cannabinoids Screen POSITIVE H Ur Drug Screen Comment Ethyl Alcohol < 3.0 Management Discussion w/another healthcare provider: child and family services worker/Case management Discharge Plan Triage Chief Complaint: Mental Health ED Provider: Hieu Man Dx/Rx/DC Orders Clinical Impression: Acute exacerbation of chronic schizoaffective schizophrenia Prescriptions: No Action quetiapine [Seroquel] 100 mg Tablet 150 mg PO QHS clonidine HCl 0.2 mg Tablet 0.2 mg PO BID ropinirole 0.25 mg tablet 0.25 mg PO QHS Patient Comments: TAKE 1 TABLET BY MOUTH EVERY NIGHT AT BEDTIME budesonide-formoterol [Symbicort] 80-4.5 mcg/actuation HFA aerosol inhaler INHALATION Patient Comments: Inhale 2 puffs in the morning and 2 puffs in the evening. lorazepam 0.5 MG tablet 0.5 mg PO DAILY PRN (Reason: Stress and or anxiety) buspirone 7.5 mg tablet 7.5 mg PO BID Patient Comments: TAKE 1 TABLET BY MOUTH TWICE DAILY doxycycline hyclate 100 mg capsule 100 mg PO BID Qty: 60 0RF Primary Care Provider: Laine Dye Referrals: Laine Dye MD [Primary Care Provider] - Disposition Disposition: Psychiatric Hospital or Unit What to do if you have Problems For any increased pain, shortness of breath, bleeding, nausea or vomiting, chestpain, or any unexpected problems, contact your Primary Care Provider. Call [facility] ([phone]) or report to the closest Emergency Room. Call 911 if necessary. 07/02/23 0554 <Electronically signed by Hieu Man MD> Cosigner Signature (if applicable): CC: Dr. Laine Dye MD ~ Signed [facility] Work Phone: 1(162) 816-491110-14-2023 NoteHNO ID: [id number] Author: Note, Interface Service: ? Author Type: ? Type: Progress Notes Filed: 02/07/2023 5:03 AM Note Text: Epic Scheduled Downtime: 02/07/2023 1:00:00 AM to 02/07/2023 1:28:00 [facility]09-17-2023 NoteHNO ID: [id number] Author: Note, Interface Service: ? Author Type: ? Type: Progress Notes Filed: 01/11/2023 3:06 AM Note Text: Epic Scheduled Downtime: 01/11/2023 1:02:01 AM to 01/11/2023 2:21:01 [facility]09-16-2023 NoteHNO ID: [id number] Author: Note, Interface Service: ? Author Type: ? Type: Progress Notes Filed: 01/10/2023 5:00 AM Note Text: Yaz Scheduled Downtime: 01/10/2023 1:00:00 AM to 01/10/2023 4:45:00 [facility]09-10-2023 NoteHNO ID: [id number] Author: Rachel Lawrence MD Service: Urology Author [...] than 4 hours. 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 Rachel Lawrence MD 01/04/2023 7:18 [facility]09-10-2023 NoteHNO ID: [id number] Author: Yaa Ruiz, RN Service: Emergency Medicine Author Type: Registered Nurse Type: ED Notes Filed: 01/04/2023 6:42 PM Note Text: Urology procedure starting at this time.[facility]04-10-2023 Telephone encounter Note* Telephone Encounter - Maritza IAtilio Pitt - 08/04/2022 11:27 AM EDT Out of inhaler Ordering provider: Hardik Date [...] of last refill (see medication tab): 04.29.22 [id number] Miscellaneous Notes* Telephone Encounter - Maritza Pitt - 08/04/2022 11:27 AM EDT Out of inhaler Ordering provider: Hardik Date [...] (see medication tab): 04.29.22 documented in this encounterSWayne HealthCare Main [id number] History of Present illness Narrative* Rusty Townsend, NORMA.FHA UNDERWRITER - 07/16/2022 3:30 PM EDT Subjective HPI HPI Matty Whitlock is a 32 year old male who presents today for CC of diarrhea. This started 3 days ago. Has tried mag citrate for relief, concerns for impaction. Symptoms are worsened by nothing. Riskfactors sick exposures at work. .Patient presents with: [...] 2 Puffs as instructed every 6 hours asneeded for Wheezing/Shortness of Breath. (Patient not taking: Reported on 06/27/2022) loratadine (CLARITIN) 10 mg tablet Take 1 tablet by mouth once daily. (Patient not taking: Reportedon 06/27/2022) No family history on file. Social [...] rehydration -BRAT Diet (Bananas, Rice, Apple Sauce, [place]) -If no better in 3-5days follow up back in clinic or with primary care provider -Follow up in the ER with signs of dehydration, increasing abdominal pain, high fever, or blood in vomit or stool. Rusty Townsend APRN.PRAVIN [facility] History of Present illness Narrative* Sharon Evans APRN.PRAVIN - 06/27/2022 4:55 PM EST Subjective Patient came in with complaints of recurrent possible thrush. Patient's been treated with nystatin patient says it gets better but always comes back. Patient says its super painful like someone is stabbing him with a needle in his tongue. Patient denies any other symptoms at this time. The history is provided by the patient. No english as a second language instructor was used. Review of Systems Constitutional: Negative. [...] 2 Puffs as instructed every 6 hours asneeded for Wheezing/Shortness of Breath. (Patient not taking: Reported on 06/27/2022) loratadine (CLARITIN) 10 mg tablet Take 1 tablet by mouth once daily. (Patient not taking: Reportedon 06/27/2022) No family history on file. Social [...] is being referred to ENT for full evaluation.Patient was okay with this care plan. No nystatin was prescribed at this time due to no symptoms. Sharon Evans APRN.PRAVIN documented in this [facility]High[facility]02-[facility]-[address] Loving [facility] June 18, 2022 6:38pm Note Date/Time June 18, 2022 6:35pm [facility] Medical Records Department [address] [place] [address] Emergency Department Summary 06/18/22 MR#: [id number] Acct: [id number] Name: MATTY WHITLOCK Rep #:[id number] : 1990 32 From: Stu Loving MD PCP: Dr. Laine Dye MD Status:REG ER Location: ED HPI History of Present Illness Chief Complaint: Anxiety Informant: patient Narrative Narrative: Patient presents with 2 issues today. 1 is that he is afraid he has thrush. He has been on inhaled steroid for a longtime. He has now been weaning that down and is off of it. But he still has some irritation and white coloring of his tongue. It is still sore. No swelling. He is able to eat and drink. No fevers or chills. No other areas ofinfection or thrush. No history of HIV. He also states that he has had more anxiety recently. He does have a history ofsignificant anxiety. He weaned Seroquel down to a reduced dose about 2 months ago. He also was able to stop trazodone about 2 months ago. He did both of these slowly. He was doing better. However, he then had multiple stressors. He quit smoking. In the last 2 weeks his girlfriend left him. He is not suicidal or homicidal but this did increase stress. He also got a new job. Hisbiggest concern is that he does not want to have a panic attack or anxiety at the new job because he really wants to keep the job. He does have an appointment with his physician in 3 days but felt he needed something for anxiety prior to that so he can rest and function at his work. He has used low-dose of Ativan in the past. I did also obtain history from his [facility] online prescribing report. This is consistent with his story of getting small doses of Ativan. [facility] Medical History Anxiety Asthma Bipolar 1 disorder Depression Former smoker History of alcohol abuse History of edema History of gastritis History of GERD History of pain when walking History of substance abuse Hx of fracture of tibia Marijuana use Restless legs Schizoaffective disorder, bipolar type SOB (shortness of breath) Wears glasses Home Medications trazodone 100 mg tablet 200 mg PO QHS 01/22/20 [History Last Taken Unknown] lorazepam 0.5 mg tablet 0.5 mg PO TID PRN PRN Stress and or anxiety #6 tabs 03/13/20 [Rx Last Taken Unknown] albuterol sulfate 90 mcg/actuation breath activated powder inhaler 2 inh inhalation Q6H PRN shortness of breath or wheezing #1 ea 02/20/21 [Rx Last Taken Unknown] quetiapine 100 mg tablet (Seroquel) 100 mg PO QHS 09/01/21 [History Last Taken Unknown] lorazepam 0.5 mg tablet (Ativan) 0.5 mg PO TID PRN anxiety #10 tabs 12/27/21 [Rx Last Taken Unknown] nystatin 100,000 unit/mL oral suspension 5 ml PO Q6H #200 mL 12/27/21 [Rx Last Taken Unknown] doxycycline hyclate 100 mg capsule 100 mg PO BID #60 caps 01/22/22 [Rx Last Taken Unknown] esomeprazole magnesium 40 mg capsule,delayed release See Rx Instructions .Route .COMPLEX #60 caps 03/06/22 [Rx Last Taken Unknown] lorazepam 0.5 mg tablet (Ativan) 0.5 mg PO DAILY PRN anxiety #5 tabs 06/18/22 [Rx Last Taken Unknown] nystatin 100,000 unit/mL oral suspension 2 ml PO 4X/DAY #100 mL 06/18/22 [Rx Last Taken Unknown] Allergy/AdvReac Type Severity Reaction Status Date / Time ondansetron [From Zofran] AdvReac Other Verified 06/18/22 17:35 Social History Smoking Status: Former smoker quit date: 03/18/17 pack-years: 1 alcohol intake: former substance use type: does not use and other details: Former use of Marijuana ROS ROS ED Constitutional Constitutional ED: Denies chills or fever(s) Eyes Eyes: Denies change in vision ENT ENT ED: Reports other Details: Irritated tongue as in history of present illness. ; Denies rhinorrhea or sore throat Cardiovascular Cardiovascular: Denies chest pain or palpitations Respiratory/Chest Respiratory/Chest: Denies cough Gastrointestinal Gastrointestinal: Denies nausea or vomiting Musculoskeletal Musculoskeletal: Denies myalgias Integumentary Denies rash Neurologic Neurologic: Denies headache(s) Psychiatric Psychiatric: Reports anxiety; Denies depression, suicidal ideation or suicidal thoughts Endocrine Endocrinology: Denies polydipsia or polyuria Hematologic/Lymphatic Hematologic/Lymphatic: Denies easy bleeding, easy bruising or lymphadenopathy Allergic/Immunologic Allergic/Immunologic ED: Denies urticaria EXAM Physical Exam Narrative Exam Narrative: He justPatient awake alert rest. He does give a good history. He does appear to be anxious. HEENT shows a little bit of white coating on the tongue. Not on the palate. Noswelling of the throat or tonsils. Voice is normal. Handling secretions normally. No dental type pain or tenderness. Neck shows no JVD. There is no lymphadenopathy. Lungs are clear bilaterally Heart is regular but is at about 95. No murmur gallop or rub. Pulses are equaland normal. Abdomen is soft nontender. no CVA or suprapubic tenderness He has no swelling or tenderness of extremities. No rash. Neurologically he is awake alert and appropriate Psychiatry: He does appear anxious. But he is not suicidal homicidal. He makesexcellent eye contact. He has a very positive view for the future. Const Vital Signs: 06/18/22 17:34 Temperature 98 F Temperature Source Temporal Pulse Rate 119 H Respiratory Rate 16 Blood Pressure 104/79 Blood Pressure Mean 87 Pulse Ox 95 Oxygen Delivery Method Room Air MDM MDM MDM Narrative Medical decision making narrative: Patient may have some subtle thrush. I will write for some nystatin for short period of time. This should resolve quickly because he is now off of his steroid inhaler. He is not having respiratory issues. I will write for a few Ativan. I think it would be a greater stress on this patient to lose his job due to severe anxiety. He does have an appointment withhis physician in a few days also. We discussed reasons to return. Discharge Plan Triage Chief Complaint: Anxiety ED Provider: Stu Loving Dx/Rx/DC Orders Clinical Impression: Anxiety, Oral thrush Instructions: Renetta Infection: Thrush, ED Anxiety Reaction Prescriptions: New lorazepam [Ativan] 0.5 mg tablet 0.5 mg PO DAILY PRN (Reason: anxiety) Qty: 5 0RF nystatin 100,000 unit/mL suspension 2 ml PO 4X/DAY Qty: 100 0RF Rx Instructions: Put 1 mL in each side of mouth 4 times a day. No Action trazodone 100 MG tablet 200 mg PO QHS lorazepam 0.5 MG tablet 0.5 mg PO TID PRN PRN (Reason: Stress and or anxiety) Qty: 6 0RF quetiapine [Seroquel] 100 mg Tablet 100 mg PO QHS nystatin 100,000 unit/mL suspension 5 ml PO Q6H Qty: 200 0RF Rx Instructions: swish and swallow lorazepam [Ativan] 0.5 mg tablet 0.5 mg PO TID PRN (Reason: anxiety) Qty: 10 0RF albuterol sulfate 90 mcg/actuation aerosol powdr breath activated 2 inh INHALATION Q6H PRN (Reason: shortness of breath or wheezing) Qty: 1 3RF doxycycline hyclate 100 mg capsule 100 mg PO BID Qty: 60 0RF esomeprazole magnesium 40 mg capsule,delayed release(DR/EC) See Rx Instructions .ROUTE .COMPLEX Qty: 60 0RF Dose Instruction: TAKE 1 CAPSULE BY MOUTH TWICE DAILY Rx Instructions: TAKE 1 CAPSULE BY MOUTH TWICE DAILY Primary Care Provider: Laine Dye Referrals: Laine Dye MD [Primary Care Provider] - As soon as possible (See as scheduled in 3 days) Disposition Disposition: Home, Self Care What to do if you have Problems For any increased pain, shortness of breath, bleeding, nausea or vomiting, chestpain, or any unexpected problems, contact your Primary Care Provider. Call [facility] ([phone]) or report to the closest Emergency Room. Call 911 if necessary. 06/18/221837 <Electronically signed by Stu Loving MD> Cosigner Signature (if applicable): CC: Dr. Laine Dye MD ~ Signed [facility] Work Phone: [phone]) 331-190901-23-2023 Telephone encounter Note* Telephone Encounter - Laine Dye MD - 05/19/2022 5:42 AM EST Rx [id number] Miscellaneous Notes* Telephone Encounter - Laine Dye MD - 05/19/2022 5:42 AM EST Rx sent * Telephone Encounter - Padmini Culver - 05/16/2022 12:41 PM EST Matty is requesting a refill on an inhaler that Matty was receiving from the [employer] technical lead. Since it has been a while since Matty saw the java j[employer] technical lead Matty is unable to go back to them without a new referral. The problem is, is that Matty had stopped using the Symbicort inhaler and when Matty got bronchitis, Matty started taking the inhaler again. Matty is now completely out of the medication and is asking if Dr. Dye would call a refill in, Matty needs some for today and the weekend until the apt on 05/20/22. What is in Matty's records is Symbicort 160-4.5 MCG/ART AERO, Matty has been using a lower dose of Symbicort 80-4.5 and that is the medication being requested. I don't have the exact dosing in formation just what Matty provided. Medication name: budesonide-formoterol (SYMBICORT) 80-4.5 MCG/ACT AERO [[id number]] Medication dosage: 2 puffs How many day supply requestin days Medication route: inhalation (inhaler) Medication administration time(s): 2 times a day (BID) If taking medication PRN, reason for taking medication: N/A If this is a controlled substance do you receive this or any other controlled medication from any other doctor or facility: N/A Ordering provider: [facility] Sprayer Date of last office visit: 05/08/21 Date of next office visit: 05/20/22 Date of last refill: (see medication tab): 03/01/20 Updated/Validated preferred pharmacy: Yes Patient instructed to contact the pharmacy prior to picking up the medication: Yes documented in this encounterSWayne HealthCare Main [id number] Telephone encounter Note* Telephone Encounter - Padmini Spannrey - 05/16/2022 12:41 PM EST Matty is requesting a refill on an inhaler that Matty was receiving from the java j[employer] technical lead. Since it has been a while since Matty saw the java j[employer] technical lead Matty is unable to go back to them without a new referral. The problem is, is that Matty had stopped using the Symbicort inhaler and when Matty got bronchitis, Matty started taking the inhaler again. Matty is now completely out of the medication and is asking if Dr. Dye would call a refill in, Matty needs some for today and the weekend until the apt on 05/20/22. What is in Matty's records is Symbicort 160-4.5 MCG/ART AERO, Matty has been using a lower dose of Symbicort 80-4.5 and that is the medication being requested. I don't have the exact dosing in formation just what Matty provided. Medication name: budesonide-formoterol (SYMBICORT) 80-4.5 MCG/ACT AERO [[id number]] Medication dosage: 2 puffs How many day supply requestin days Medication route: inhalation (inhaler) Medication administration time(s): 2 times a day (BID) If taking medication PRN, reason for taking medication: N/A If this is a controlled substance do you receive this or any other controlled medication from any other doctor or facility: N/A Ordering provider: [facility] Under[facility] Sprayer Date of last office visit: 05/08/21 Date of next office visit: 05/20/22 Date of last refill: (see medication tab): 03/01/20 Updated/Validated preferred pharmacy: Yes Patient instructed to contact the pharmacy prior to picking up the medication: Yes [facility] [id number] Telephone encounter Note* Telephone Encounter - Akosua Tobar - 04/28/2022 9:50 AM EST Ordering provider: Dr. Dye Date of last office visit: 05/08/21 Date of next office visit: 05/14/22 Updated/Validated preferred pharmacy: Yes Patient instructed to contact the pharmacy prior to picking up the medication: Yes (1) Medication name: omeprazole (PRILOSEC) 40 MG delayed release capsule Pt is asking to decrease to 20mg twice a day. Medication dosage: 20 mg (Miligrams Monthly quantity needed: 60 How many day supply requestin days Medication route: oral (PO) Medication administration time(s): 2 times a day (BID) If taking medication PRN, reason for taking medication: N/A If this is a controlled substance do you receive this or any other controlled medication from any other doctor or facility: N/A Date of last refill (see medication tab): 01/02/21 (2) Medication name: rOPINIRole (REQUIP) 0.25 MG tablet Medication dosage: 0.25 mg (Miligrams Monthly quantity needed: 30 How many day supply requestin days Medication route: oral (PO) Medication administration time(s): daily If taking medication PRN, reason for taking medication: N/A If this is a controlled substance do you receive this or any other controlled medication from any other doctor or facility: N/A Date of last refill (see medication tab): 01/27/22 [id number] Miscellaneous Notes* Telephone Encounter - Akosua Tobar - 04/28/2022 9:50 AM EST Ordering provider: Dr. Dye Date of last office visit: 05/08/21 Date of next office visit: 05/14/22 Updated/Validated preferred pharmacy: Yes Patient instructed to contact the pharmacy prior to picking up the medication: Yes (1) Medication name: omeprazole (PRILOSEC) 40 MG delayed release capsule Pt is asking to decrease to 20mg twice a day. Medication dosage: 20 mg (Miligrams Monthly quantity needed: 60 How many day supply requestin days Medication route: oral (PO) Medication administration time(s): 2 times a day (BID) If taking medication PRN, reason for taking medication: N/A If this is a controlled substance do you receive this or any other controlled medication from any other doctor or facility: N/A Date of last refill (see medication tab): 01/02/21 (2) Medication name: rOPINIRole (REQUIP) 0.25 MG tablet Medication dosage: 0.25 mg (Miligrams Monthly quantity needed: 30 How many day supply requestin days Medication route: oral (PO) Medication administration time(s): daily If taking medication PRN, reason for taking medication: N/A If this is a controlled substance do you receive this or any other controlled medication from any other doctor or facility: N/A Date of last refill (see medication tab): 01/27/22 documented in this [facility]11-29-2021 Hospital Discharge instructions Patient Education 03/24/2021 22:59:52 Anxiety Reaction Anxiety Reaction Anxiety is the feeling we all get when we think something bad might happen. It is a normal responseto stress and usually causes only a mild [...] relieved by rest and mild pain reliever [id number] [employer]. [address] [place] [address]. All rights reserved. This information is not intended as a substitute for professional medical care. Always follow yourwayne hospitalcare professional's instructions. 03/24/2021 22:59:51 Gastritis (Adult) Gastritis [...] can help reduce stomach irritation and help itheal. If you have been prescribed medicines for [...] or as directed by your healthcare provider [phone] [employer]. [address] [place] [address], [place] [address]. All rights reserved. This information is not intended as a substitute for professional medical care. Always follow yourhealthcare professional's instructions. Follow Up Care 03/24/2021 21:51:16 With:Follow up with primary care provider Address:Unknown When:2-4 days [facility] 11-26-2021 Hospital Discharge instructions Patient Education 03/22/2021 16:19:55 GASTRITIS vs. [...] the stomach or duodenum (upper intestine). The mostcommon cause of peptic ulcer disease is a bacterial infection (H pylori) in the stomach. Another common cause is taking anti- inflammatory medications (such as ibuprofen, prednisone, and aspirin). [...] an acid kaz medication. If H pylori infectionis found, antibiotics will be prescribed along with an acid kaz. Persons 55 years and older mayundergo other tests before treatment is started. Two common tests are used to evaluate your symptoms. An upper GI series is an x- ray taken after youdrink a chalky liquid called barium. This coats [...] afford the prescribed medication, you can try sssw-qbq-sajxgoe acid blockers, such as PepcidAC, Tagamet, Zantac, or Aciphex. If these do not relieve your symptoms, a stronger acid-kaz canbe tried, such as Prilosec OTC. If you [...] medications. Specifically, do not take Tagamet (cimetidine), Zantac(ranitidine), or Carafate (sucralfate) within 1 hour of [...] or as directed by your healthcare provider [phone] [employer]. [address] [place] [address], [place] [address]. All rights reserved. This information is not intended as a substitute for professional medical care. Always follow yourhealthcare professional's instructions. 03/22/2021 16:19:52 Anxiety Reaction Anxiety Reaction Anxiety is the feeling we all get when we think something bad might happen. It is a normal responseto stress and usually causes only a mild [...] relieved by rest and mild pain reliever [phone] [employer]. [address] [place] [address]. All rights reserved. This information is not intended as a substitute for professional medical care. Always follow yourhealthcare professional's instructions. 03/22/2021 16:19:45 Epigastric Pain (Uncertain [...] don t like the liquid, you can trya chewable one. You may find one works [...] and esomeprazole. Many of these are available gjkd-ejp-ehhliak or available as generics. Take an antacid [...] eat them. Certain foods can worsen symptoms ofgastritis. Limit or avoid fatty, fried, and spicy [...] directed by your healthcare provider Abdominal swelling [phone] [employer]. [address] [place] [address], [place] [address]. All rights reserved. This information is not intended as a substitute for professional medical care. Always follow yourhealthcare professional's instructions. Follow Up Care 03/22/2021 15:32:55 With:Gastroenterology Address:Unknown When:2-4 days Comments:Schedule appointment as soon as possibleReturn to ED if symptoms worsenFollow up for endoscopy and h pylori testing sugar. Precautions as describedSleep head elevated, avoid eating within 4 hrs of bed. Omeprozole 40mg 2x/day. pepcid 2x/day. 15ml (1tbs) gaciscon at bed daily. Diet as described With:NONE PHYSICIAN Address:Unknown When:2-4 days [facility] 11-12-2021 Hospital Discharge instructions Patient Education 03/08/2021 20:25:13 Understanding Anxiety Disorders Understanding Anxiety Disorders Almost everyone gets nervous now and then. It s normal to have knots in your stomach before a test,or for your heart to race on a [...] can help you live a healthier life. [id number] [employer]. [address] [place] [address]. All rights reserved. This information is not intended as a substitute for professional medical care. Always follow yourhealthcare professional's instructions. Follow Up Care 03/08/2021 20:11:13 With:DONALD GÓMEZ MD Address: When:2-4 days [facility] 10-05-2020 History of Present illness Narrative* Dimitrios Back Tech (Rt) - 01/30/2020 12:40 PM EDT Radiology Service Progress Note PATIENT NAME: Matty Whitlock DATE OF SERVICE: January 30, 2020 TIME: 12:40 PM PATIENT IDENTITY VERIFICATION COMPLETED USING TWO (2) IDENTIFIERS: Name and Date of confirmedby patient verbally. FALL SCREENING: Has the patient had 2 falls in the last year or 1 fall with injury or currently using an Ambulatory Assistive Device (Walker, Cane, Wheelchair, Crutches, etc.)? No PATIENT GENDER DATA: Male PATIENT RELEVANT IMPLANT DATA REVIEWED: Not Applicable RADIOLOGY DEPARTMENT: General X-ray: Exam(s) Completed: Abdomen X-Ray Abdomen with oblique PERIPHERAL IV DATA: Not applicable SIGNED BY: RT Carol January 30, 2020 12:40 PM [facility] Author [facility] Note Date/Time October 21, 2024 11:4 9am [facility] Medical Records Department [address] [place] [id number] Pre-Anesthesia Evaluation 10/21/24 1139 MR#: [id number] Acct: [id number] Name: MATTY WHITLOCK Rep #:[id number] : 1990 34 From: Corby Rizo MD PCP: Dr. Laine Dye MD Status:REG SD Y Race: C Location: [place] [address] ASA Classification* ASA Classification ASA Classification: 3 Assessment & Plan Anesthesia* Anesthesia Assessment Anesthesia Assessment: Discussed sedation and/or anesthesia options, risks, benefits, and alternatives with patient/parents/legal guardian/POA. Questions invited. The patient/parents/legal guardian/POA seems to understand and agrees to proceedwith anesthesia plan. Reviewed the physical assessment, medical history, allergy history and patient home medications list prior to surgery/procedure/anesthetic and documented any changes. Performed airway and anesthesia risk assessments. Anesthesia Type Anesthesia Type: MAC History Source History Obtained from:: Patient and Chart Anesthesia Focused Assessment* Temperature: 97.6 F Pulse Rate: 51 Blood Pressure: 98/58 Respiratory Rate: 24 Pulse Ox: 97 Oxygen Delivery Method: Room Air Airway Assessment Mouth opens: >3 cm Mallampati Score: IV Teeth Condition: Caps/Crowns (Patient recently had a crown fall off. Rest of the teeth are tight.) Neck Range of motion (ROM): Full ROM Labs Anesthesia Preop lab: CBC WBC 10.6 K/mm3 (4.4-11.0) 08/12/24 18:08/12/24 RBC 4.77 M/mm3 (4.6-6.2) 08/12/24 18:08/12/24 Hgb 13.8 g/dL (13.0-16.5) 08/12/24 18:08/12/24 Hct 39.2 % (40-54) L 08/12/24 18:08/12/24 Plt Count 249 K/mm3 (150-450) 08/12/24 18:33 08/12/24 CHEMISTRY Potassium 3.9 mmol/L (3.3-5.1) 08/12/24 18:33 08/12/24 Sodium 133 mmol/L (133-145) 08/12/24 18:33 08/12/24 BUN 5 mg/dL (4-19) 08/12/24 18:33 08/12/24 Creatinine 0.93 mg/dL (0.70-1.20) 08/12/24 18:33 08/12/24 Glucose 104 mg/dL (70-99) H 08/12/24 18:33 08/12/24 TSH 1.30 uIU/mL (0.358-3.74) 10/24/19 16:31 COAG Pre-Assessment Diagnosis/Proposed Procedure Planned Operative Procedure(s): EGD Anesthesia History 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 When Was Last Pacemaker Check QUESTION #4 FULL TEXT: You/Your Family Experience fever (hyperthermia) with Anesthesia Last Oral Intake Last Oral intake: Last Oral Intake NPO since 00:00 10/21/24 11:14 Meds taken in AM with sips of water? Meds patient instructed to take am of surgery Any additional information?: Yes Meds taken in AM with sips of water?: Yes PONV PONV - salesperson terrazzo tiles: PONV - salesperson terrazzo tiles Female No 10/20/24 09:55 HX of Motion Sickness Yes 10/20/24 09:55 HX of N/V After Surgery No 10/20/24 09:55 Non-Smoker No 10/20/24 09:55 Duration of Surgery greater No 10/20/24 09:55 than 60 minutes Number of Risk Factors 1 10/20/24 09:55 PONV Score Low Risk 10/20/24 09:55 Height & Weight Height & Weight: Anesthesia: Height & Weight Height 5 ft 7 in 10/21/24 11:14 Weight: 81 kg 10/21/24 11:14 Body Mass Index (BMI) 27.9 10/21/24 11:14 Respiratory Assessment Respiratory Assessment - salesperson terrazzo tiles: Respiratory Tract Infection Hx - salesperson terrazzo tiles Hx Respiratory Tract Infection Yes: CURRENT CHEST COLD 10/20/24 09:55 STOP Sleep Apnea STOP Sleep Apnea - salesperson terrazzo tiles: STOP Sleep Apnea - salesperson terrazzo tiles Hx Hypertension No 10/20/24 09:55 Hx Sleep Apnea No 10/20/24 09:55 CPAP No 04/29/21 12:37 BIPAP Do you snore loudly (louder No 10/20/24 09:55 than talking or can be heard Do you often feel tired/ No 10/20/24 09:55 fatigued/ sleepy during daytime? Has anyone observed you stop No 10/20/24 09:55 breathing during sleep? STOP Results Negative 10/20/24 09:55 QUESTION #5 FULL TEXT : Do you snore loudly (louder than talking or can be heard through closed doors)? 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 Specify any problems Hx of Preganancy in last 3 N/A 10/20/24 09:55 Months Nurse Filling Out Transfusion NBUCHER 10/20/24 09:55 & Questions: Date: 10/20/24 10/20/24 09:55 Time: 09:57 10/20/24 09:55 Patient unable to answer at this time (ie. confused, unrespo /Reproduction History /Reproductive History - salesperson terrazzo tiles: /Reproductive Hx- salesperson terrazzo tiles Hx Now No 10/20/24 09:55 Gestational Age (in weeks): EDC: Hx Hx Para Hx Section SAB No 10/20/24 09:55 Active Medications Active Medications: Current Medications Generic Name Dose Route Start Last Admin Trade Name Freq PRN Reason Stop Dose Admin Lactated Ringer's 1,000 mls @ 15 mls/hr 10/21/24 11:15 10/21/24 11:23 IV 15 mls/hr .Q48H NISREEN Administration PFSH Medical History Dietary restriction Esophageal tear Smoker Chest pain Asthma Depression Anxiety Wears glasses Marijuana use Restless legs History of gastritis Former smoker History of pain when walking History of edema Hx of fracture of tibia Asthma History of GERD History of substance abuse Depression SOB (shortness of breath) Schizoaffective disorder, bipolar type History of alcohol abuse Bipolar 1 disorder Anxiety Home Medications ?Medication ?Instructions ?Recorded ?Last Taken ?Type buspirone 10 mg tablet 10 mg PO TID 07/11/24 History prazosin 1 mg capsule 1 mg PO QHS 07/11/24 5 History esomeprazole magnesium 40 mg 40 mg PO BID #60 caps 10/21/24 Rx capsule,delayed release dicyclomine 20 mg tablet 20 mg PO BID PRN abdominal p ain 10/17/24 10/21/24 Rx #30 tabs albuterol sulfate 90 mcg/actuation 2 inh inhalation Q6 H PRN shortness 10/19/24 10/21/24 Rx breath activated powder inhaler of breath or wheezing #1 ea (ProAir RespiClick) benztropine 1 mg tablet 1 mg PO DAILY 10/19/2410/21 History clonidine HCl 0.2 mg tablet 0.2 mg PO TID 10/19/24 History hydroxyzine HCl 50 mg tablet 50 mg PO DAILY PRN sleep 10/19/24 10/21/24 History famotidine 40 mg tablet 40 mg PO QHS PRN GERD Unknown History paliperidone palmitate 156 mg/mL 156 mg IM Q30D Unknown History intramuscular syringe (Invega Sustenna) Allergy/AdvReac Type Severity Reaction Status Date / Time ondansetron (From Zofran) AdvReac Other Verified 10/21/24 11:13 Surgical History History of surgery on lower extremity History of esophagogastroduodenoscopy (EGD) Social History Smoking Status: Current every day smoker (Patient smoked today.) tobacco type: cigarettes alcohol intake: former substance use type: does not use and other details: Former use of Marijuana Review of Systems (Anesthesia) ROS Narrative System reviewed and no additional complaints, except as documented. 10/21/24 1149 <Electronically signed by Corby chiang MD> Date _ Corby Rizo MD Cosigner Signature: Date CC: ~ Signed [facility] Work Phone: Consult note Author [facility] Note Date/Time October 21, 2024 12:3 6pm [facility] Medical Records Department [address] [place] [address] Anesthesia Postop Eval I 10/21/24 1236 MR#: [id number] Acct: [id number] Name: MATTY WHITLOCK Rep #:[id number] : 1990 34 From: Myla Upton CRNA PCP: Dr. Laine Dye MD Status:[place] [facility] [place] Race: C Location: [place] [address] Anesthesia: Postop Eval I Current Vital Signs Temperature: 97.6 F Pulse Rate: 70 Blood Pressure: 125/78 Respiratory Rate: 20 Pulse Ox: 95 Assessment Airway patent: Yes Spontaneous unlabored respirations: Yes nausea: No Vomiting: No Anesthesia Complication: No Fluid Hydration Crystalloid volume administer (ml): 500 Total IV fluid infused: 500 Progress Note Anesthesia document: Postop Eval 1 completed: Yes 10/21/24 1236 <Electronically signed by Myla gifford CHERRY PITTER> Date _ Myla Upton CRNA Cosigner Signature: Date CC: ~ Signed [facility] Work Phone: Consult note Author Myla Upton [facility] Note Date/Time October 21, 2024 1:31 pm [facility] Medical Records Department [address] [place] [address] Anesthesia Postop Eval II 10/21/24 1311 MR#: [id number] Acct: [id number] Name: MATTY WHITLOCK Rep #:[id number] : 1990 34 From: Myla Upton CRNA PCP: Dr. Laine Dye MD Status:REG [facility] [place] Race: C Location: [place] [address] Anesthesia Postop Eval I Sum Postop Eval Completion status Anesthesia document: Postop Eval 1 completed: Yes Anesthesia Postop Eval I Summary Anesthesia Postop Eval I Summary: Anesthesia Postop Eval I: Assessment Summary Airway patent Yes 10/21/24 12:36 CHERRY [email or web address].CSIR Spontaneous unlabored Yes 10/21/24 12:36 CHERRY PITTER.CSIR respirations Mental status nausea No 10/21/24 12:36 CHERRY PITTER.CSIR Vomiting No 10/21/24 12:36 CHERRY PITTER.CSIR Anesthesia Postop Eval I: Fluid Summary Crystalloid volume administer 500 10/21/24 12:36 CHERRY PITTER.CSIR (ml) Colloids volume administered ( ml) Blood Product volume administered (ml) Total IV fluid infused 500 10/21/24 12:36 CHERRY PITTER.CSIR Anesthesia Postop Eval I: Summary Notes Anesthesia Complication No 10/21/24 12:36 CHERRY PITTER.CSIR Anesthesia Complication Comment: Post-operative progress note Anesthesia: Postop Eval II Evaluation Mental status: Awake Pain Level: 0 nausea: No Vomiting: No 10/21/24 1311 <Electronically signed by Myla gifford CHERRY PITTER> Date _ Myla Upton CHERRY PITTER Cosigner Signature: Date CC: ~ Signed [facility] Work Phone: Evaluation + Plan note No data available for this section [facility] Evaluation noteNo assessment information available [facility] Work Phone: Evaluation note* Diagnosis Throat pain- Primary documented in this encounter [facility] note* Diagnosis Diarrhea, unspecified type- Primary documented in this encounter [facility] note* Diagnosis Acute psychosis (Multi)- Primary Alcohol intoxication with delirium ([facility]) Cannabis use disorder Complicated laceration of hand, right, initial encounter documented in this encounter [facility] Work Phone: Evaluation note* Diagnosis Nonintractable headache, unspecified chronicity pattern, unspecified headache type- Primary Pain of hand, unspecified laterality documented in this encounter [facility] note* Diagnosis Schizoaffective disorder, unspecified type (HCC)- Primary [facility]* Diagnosis Other psychoactive substance use, unspecified with psychoactive substance- induced mood disorder (HCC)- Primary documented in this encounter [facility] note* Diagnosis Epigastric pain Abdominal pain, epigastric documented in this encounter [facility] note* Diagnosis Procedure not carried out- Primary Procedure not carried out for other reasons [facility] encounter [facility]* Diagnosis Moderate persistent asthma, unspecified whether complicated- Primary Restless leg syndrome Restless legs syndrome (RLS) Screening for cholesterol level Bipolar affective disorder, remission status unspecified (HCC) Tobacco use documented in this encounter [facility] note* Diagnosis Moderate persistent asthma, unspecified whether complicated- Primary Restless leg syndrome Restless legs syndrome (RLS) Screening for cholesterol level Bipolar affective disorder, remission status unspecified (HCC) GERD without esophagitis- Primary Esophageal reflux [facility] Diagnosis Moderate persistent asthma, unspecified whether complicated- Primary Restless leg syndrome Restless legs syndrome (RLS) Screening for cholesterol level Bipolar affective disorder, remission status unspecified (HCC) Moderate persistent asthma, unspecified whether complicated [facility]* Attachments The following attachments cannot be sent through Care Everywhere. * Alcohol Use Disorder ED (Portuguese) [facility] Work [facility] Hospital Discharge instructions Additional Instructions The risk of any major complication with GI bleed is low given your workup today including her vital signs. Please follow-up with your GI specialist. Please start taking the Nexium 40 mg once a day as prescribed. He may stop taking the 20 mg as we discussed. Avoid ibuprofen or other NSAIDs. If your symptoms worsen please do not hesitate to return to the emergency room. [facility] Work Phone: Hospital Discharge instructions Additional Instructions He received Ativan here in the emergency department. Please let your sober living know this. Return back to the ED if symptoms change or worsen. Follow-up with PCP.[facility] Work Phone: Hospital Discharge instructions Additional Instructions Follow-up your doctor in outpatient setting. Use inhaler as prescribed. Return with worsening symptoms and concerns. Your chest x-ray did not show any evidence of pneumonia. [facility] Work Phone: Hospital Discharge instructionsAdditional Instructions Your sodium was low here in the emergency department however it improved with fluids. You need to follow-up with your primary care for this. You need to follow-up with GI for your chronic epigastric abdominal pain. Continue to take the medicines that were prescribed by Dr. Herndon. Your CT abdomen pelvis shows mild hydroureter with distended urinary bladder where reflux is not excluded. Follow-up with your primary care physician.[facility] Work Phone: Reason for referral (narrative)No reason for referral information availableWSt. [facility] Work Phone: Summary Purpose Family History No Family History Records FoundNo Family History Records FoundNo Family History Records FoundNo Family History Records FoundNo Family History Records FoundNo Family History Records FoundNo Family History Records FoundNo Family History Records FoundNo Family History Records FoundNo Family History Records FoundNo Family History Records Found Advance Directives No Advanced Directives Records Found Advance Directive Response Recorded Date/ Time Living Will No September 01, 2021 9: 02pm Power of Personal Care Aide No September 01, 2021 9:02pm Advance Directive Response Recorded Date/ Time Living Will No December 27 022 3:22pm Power of Personal Care Aide No December 27, 2021 3:22pm Advance Directive Response Recorded Date/ Time Living Will No June 18, 023 5:41pm Power of Personal Care Aide No June 18, 2022 5:41pm Advance Directive Response Recorded Date/ Time Living Will No September 03, 2022 1 0:02pm Power of Personal Care Aide No September 03, 2022 10:02pm Advance Directive Response Recorded Date/ Time Living Will No January 04, 2023 2:39pm Power of Personal Care Aide No December 2:39pm Advance Directive Response Recorded Date/ Time Living Will No May 28 1:28pm Power of Personal Care Aide No May 28, 2023 1:28pm Advance Directive Response Recorded Date/ Time Living Will No July 02, 2023 12:17am Power of Personal Care Aide No July 01 12:17am Advance Directive Response Recorded Date/ Time Declaration for Mental Health Treatment No January 05, 2024 10:05pm Advance Directives No December 10:05pm Durable Power Of Personal Care Aide No 2023 10:05pm Living Will No January 05, 2024 10:05pm Advance Directive Response Recorded Date/ Time Living Will No July 11, 2024 11:30am Power of Personal Care Aide No July 11 11:30am Advance Directive Response Recorded Date/ Time Living Will No July 11, 2024 11:30am Do you have a Healthcare Power of Personal Care Aide? No July 11, 2024 11:30am Living Will No August 12, 2024 5:47pm Do you have a Healthcare Power of Personal Care Aide? No August 12, 2024 5:47pm Advance Directive Response Recorded Date/ Time Living Will No July 11, 2024 11:30am Do you have a Healthcare Power of Personal Care Aide? No July 11, 2024 11:30am Do you have a Healthcare Power of Personal Care Aide? No October 19, 2024 3:40pm Living Will No August 12, 2024 5:47pm Do you have a Healthcare Power of Personal Care Aide? No August 12, 2024 5:47pm Advance Directive Response Recorded Date/ Time Living Will No July 11, 2024 11:30am Do you have a Healthcare Power of Personal Care Aide? No July 11, 2024 11:30am Do you have a Healthcare Power of Personal Care Aide? No October 20, 2024 9:55am Do you have a Healthcare Power of Personal Care Aide? No October 19, 2024 3:40pm Living Will No August 12, 2024 5:47pm Do you have a Healthcare Power of Personal Care Aide? No August 12, 2024 5:47pm Advance Directive Response Recorded Date/ Time Living Will No July 11, 2024 11:30am Do you have a Healthcare Power of Personal Care Aide? No July 11, 2024 11:30am Do you have a Healthcare Power of Personal Care Aide? No October 20, 2024 9:55am Do you have a Healthcare Power of Personal Care Aide? No October 19, 2024 3:40pm Living Will No August 12, 2024 5:47pm Do you have a Healthcare Power of Personal Care Aide? No August 12, 2024 5:47pm Do you have a Healthcare Power of Personal Care Aide? No November 01, 2024 2:32pm Advance Directive Response Recorded Date/ Time Do you have a Healthcare Power of Personal Care Aide? No October 20, 2024 9:55am Do you have a Healthcare Power of Personal Care Aide? No October 19, 2024 3:40pm Living Will No August 12, 2024 5:47pm Do you have a Healthcare Power of Personal Care Aide? No August 12, 2024 5:47pm Do you have a Healthcare Power of Personal Care Aide? No November 01, 2024 2:32pm Chief Complaint and Reason for Visit Chief Complaint ABD PAIN Chief Complaint ABD PAIN epigastric pain/anxiety epigastric pain/anxiety generalized illness Chief Complaint anxiety Chief Complaint anxiety CP, SOB Chief Complaint fish hook groin pain Chief Complaint light headed, fatigu e Chief Complaint light headed, fatigu e SUICIDAL Chief Complaint Admit Date GI BLEED July 11, 2024 10: 52am Chief Complaint Admit Date GI BLEED July 11, 2024 10: 52am anxiety, abd bloating August 12, 2024 3 :25pm Chief Complaint Admit Date GI BLEED July 11, 2024 10: 52am anxiety, abd bloating August 12, 2024 3 :25pm ED follow up August 18, 2024 4:0 0pm INT ORDERS August 22, 2024 2:5 8pm anxiety October 19, 2024 12:1 6pm Reason for Visit Admit Date Chronic gastroesophageal reflux disease August 18, 2024 4:00pm Reason for Visit Admit Date Chronic gastroesophageal reflux disease August 18, 2024 4:00pm Gastro-esophageal reflux dis ease with esophagitis, without bleeding October 21, 2024 10:58am Abdominal pain October 21, 2024 10:5 8am Bipolar 1 disorder October 21, 2024 10:5 8am Chief Complaint Admit Date GI BLEED July 11, 2024 10: 52am anxiety, abd bloating August 12, 2024 3 :25pm ED follow up August 18, 2024 4:0 0pm INT ORDERS August 22, 2024 2:5 8pm anxiety October 19, 2024 12:1 6pm gastric pain, anxiety November 01, 2024 2:2 2pm Chief Complaint Admit Date anxiety, abd bloating August 12, 2024 3 :25pm ED follow up August 18, 2024 4:0 0pm INT ORDERS August 22, 2024 2:5 8pm anxiety October 19, 2024 12:1 6pm gastric pain, anxiety November 01, 2024 2:2 2pm Abdominal pain November 09, 2024 3:36 pm Reason for Visit Admit Date Chronic gastroesophageal reflux disease August 18, 2024 4:00pm Gastro-esophageal reflux dis ease with esophagitis, without bleeding October 21, 2024 10:58am Abdominal pain October 21, 2024 10:5 8am Bipolar 1 disorder October 21, 2024 10:5 8am Gastric ulcer November 09, 2024 3:36 pm Gastro-esophageal reflux dis ease with esophagitis, without bleeding November 09, 2024 3:36pm Abdominal pain November 09, 2024 3:36 pm Reason for Referral Specialty Diagnoses / Procedures Referred By Phuong orman Referred To Contact Laine Dye MD [address] [place] [address], [place] [address] Referral ID Status Reason Start Date Expiration Date V isits Requested Visits Authorized [id number] Pending Review 1 1 Specialty Diagnoses / Procedures Referred By Phuong roman Referred To Contact Ent - Otolaryngology Diagnoses Throat pain Procedures CONSULT TO ENT OFFICE/OUTPATIENT [facility] HIGH MDM 60-74 MINUTES 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, 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 DATE CREATED AUTHOR AUTHOR'S ORGANIZ ATION 10/20/2017 [facility] DATE CREATED AUTHOR AUTHOR'S ORGANIZ ATION 03/26/2021 [facility] DATE CREATED AUTHOR AUTHOR'S ORGANIZ ATION 08/12/2023 [facility] DATE CREATED AUTHOR AUTHOR'S ORGANIZ ATION 08/17/2023 [facility] DATE CREATED AUTHOR AUTHOR'S ORGANIZ ATION 09/02/2023 [facility] DATE CREATED AUTHOR AUTHOR'S ORGANIZ ATION 12/28/2023 [facility] DATE CREATED AUTHOR AUTHOR'S ORGANIZ ATION 01/07/[address] [facility] DATE CREATED AUTHOR AUTHOR'S ORGANIZ ATION 02/08/2024 [facility] DATE CREATED AUTHOR AUTHOR'S ORGANIZ ATION 11/10/2024 [facility] DATE CREATED AUTHOR AUTHOR'S ORGANIZ ATION 11/11/2024 [facility] Goals (unrecognized section and content) Goals may be documented in a n alternate section Care Teams (unrecognized sec tion and content) Team Status: Active Member Role Status Dates No Primary Care Physician Family Provider Active Dr. Laine Dye MD Primary Care Provider Active Team Status: Inactive Member Role Status Dates Dr. Laine Dye MD Primary Care Provider Active Dr. Stu Loving MD Emergency Provider Active Applications Engineer Manufacturing Relationship Specialty Start Date End Date Laine Dye [address] [facility] [address] PCP - General Family Medicine 04/01/21 Rupa Sandoval [address] [place] [address] [address] [place] [id number] Psychiatry 02/27/17 Applications Engineer Manufacturing Relationship Specialty Start Date End Date Laine Dye [address] [place] [address] PCP - General Family Medicine 04/01/21 Rupa Sandoval [address] [place] [address] [address] [place] [phone] Psychiatry 02/27/17 Applications Engineer Manufacturing Relationship Specialty Start Date End Date Laine Dye MD [address] [place] [id number] PCP - General 02/04/21 Team Status: Inactive Member Role Status Dates Dr. Laine Dye MD Primary Care Provider Active Dr. Stu Loving MD Attending Provider, Emergency Provider Active Team Status: Inactive Member Role Status Dates Dr. Laine Dye MD Primary Care Provider Active Dr. Florentino Cardona DO Emergency Provider Active Team Status: Inactive Member Role Status Dates Dr. Laine Dye MD Primary Care Provider Active Dr. Vinicius Lainez MD Attending Provider, Emergency Pro vider Active Team Status: Inactive Member Role Status Dates Dr. Laine Dye MD Primary Care Provider Active Dr. Vinicius Lainez MD Emergency Provider Active Team Status: Inactive Member Role Status Dates Dr. Laine Dye MD Primary Care Provider Active Dr. Dorian Cota DO Emergency Provider Active Team Status: Inactive Member Role Status Dates Dr. Laine Dye MD Primary Care Provider Active Dr. Dorian Cota DO Attending Provider, Emergency Provider Active Team Status: Inactive Member Role Status Dates Dr. Laine Dye MD Primary Care Provider Active Dr. Hieu Man MD Emergency Provider Active Applications Engineer Manufacturing Relationship Specialty Start Date End Date Laine Dye MD [address] [place], [place] [id number] PCP - General 02/04/21 Applications Engineer Manufacturing Relationship Specialty Start Date End Date Laine Dye [address] [place], [place] [id number] PCP - General Family Medicine 04/01/21 Rupa Sandoval [address] [place] [address] [address] [place] [phone] Psychiatry 02/27/17 Team Status: Active Member Role Status Dates Sylvester Ramirez Emergency Provider Active Start : November 30, 2023 Unlisted provider (Unknown) Primary Care Provider Acti ve Start: November 30, 2023 Applications Engineer Manufacturing Relationship Specialty Start Date End Date Laine Dye [address] [place], [place] [phone] PCP - General Family Medicine 04/01/21 Rupa Sandoval [address] [place] [address] [address] [place] [phone] Psychiatry 02/27/17 Team Status: Active Member Role Status Dates Sylvester Ramirez Emergency Provider Active Start : November 30, 2023 Unlisted provider (Unknown) Primary Care Provider Acti ve Start: November 30, 2023 Omkar Del Cid Emergency Provider Active Sta rt: January 05, 2024 IMTIAZ WHITLOCK Emergency Contact #1 Active ABIOLA WHITLOCK Emergency Contact #2 Active Applications Engineer Manufacturing Relationship Specialty Start Date End Date Donald Lantigua MD [address] [facility] [place] [place] [address] PCP - General Family Medicine 11/07/19 03/31/21 Rupa Sandoval [address] [place] [address] [place] [phone] Psychiatry 02/27/17 Applications Engineer Manufacturing Relationship Specialty Start Date [place] [address] PCP - General 02/04/21 Applications Engineer Manufacturing Relationship Specialty Start Date [place] [address] PCP - General 02/04/21 Applications Engineer Manufacturing Relationship Specialty Start Date End Date Laine Dye MD [address] [place] [id number] PCP - General 02/04/21 Applications Engineer Manufacturing Relationship Specialty Start Date End Date Laine Dye MD [address] [place] [id number] PCP - General 02/04/21 Team Status: Active Member Role Status Dates Dr. Laine Dye MD Primary Care Provider Active Team Status: Inactive Member Role Status Dates Dr. Laine Dye MD Primary Care Provider Active Start: July 11, 2024 End: July 11, 2024 Dr. Gricel Talley DO Emergency Provider Active Start: July 11, 2024 End: July 11, 2024 Applications Engineer Manufacturing Relationship Specialty Start Date End Date Laine Dye MD [address] [place], [place] [address], [place] [address] PCP - General 02/04/21 Team Status: Inactive Member Role Status Dates Dr. Laine yDe MD Primary Care Provider Active Start: July 11, 2024 End: July 11, 2024 Dr. Gricel Talley DO Attending Provider Active Start: July 11, 2024 End: July 11, 2024 Dr. Gricel Talley , Emergency Provider Active Start: July 11, 2024 End: July 11, 2024 Team Status: Inactive Member Role Status Dates Dr. Laine Dye MD Primary Care Provider Active Start: August 12, 2024 End: August 12, 2024 Dr. Aidan Hickey DO Emergency Provider Activ e Start: August 12, 2024 End: August 12, 2024 Team Status: Inactive Member Role Status Dates Dr. Laine Dye MD Primary Care Provider Active Start: August 12, 2024 End: August 12, 2024 Dr. Aidan Hickey , DO Attending Provider Activ e Start: August 12, 2024 End: August 12, 2024 Dr. Aidan Hickey DO Emergency Provider Activ e Start: August 12, 2024 End: August 12, 2024 Team Status: Inactive Member Role Status Dates Dr. Laine Dye MD Primary Care Provider Active Start: August 18, 2024 End: August 18, 2024 Dr. Laine Dye MD Referring Provider Active Start: August 18, 2024 End: August 18, 2024 NORMA Rahman Attending Provider Active Start: August 18, 2024 End: August 18, 2024 Team Status: Inactive Member Role Status Dates Dr. Laine Dye MD Primary Care Provider Active Start: August 22, 2024 End: August 22, 2024 NORMA Rahman Attending Provider Active Start: August 22, 2024 End: August 22, 2024 NORMA Rahman Referring Provider Active Start: August 22, 2024 End: August 22, 2024 Team Status: Inactive Member Role Status Dates Dr. Laine Dye MD Primary Care Provider Active Start: October 19, 2024 End: October 19, 2024 Dr. Lester Aguilar DO Emergency Provider Active Start: October 19, 2024 End: October 19, 2024 Team Status: Active Member Role/Relationship Status Dates Dr. Laine Dye MD Primary Care Provider Active Team Status: Inactive Member Role/Relationship Status Dates Dr. Laine Dye MD Primary Care Provider Active Start: July 11, 2024 End: July 11, 2024 Dr. Gricel Talley DO Attending Provider Active Start: July 11, 2024 End: July 11, 2024 Dr. Gricel Talley DO Emergency Provider Active Start: July 11, 2024 End: July 11, 2024 Team Status: Inactive Member Role/Relationship Status Dates Dr. Laine Dye MD Primary Care Provider Active Start: August 12, 2024 End: August 12, 2024 Dr. Aidan Hickey DO Attending Provider Activ e Start: August 12, 2024 End: August 12, 2024 Dr. Aidan Hickey DO Emergency Provider Activ e Start: August 12, 2024 End: August 12, 2024 Team Status: Inactive Member Role/Relationship Status Dates Dr. Laine Dye MD Primary Care Provider Active Start: August 18, 2024 End: August 18, 2024 Dr. Laine Dye MD Referring Provider Active Start: August 18, 2024 End: August 18, 2024 NORMA Rahman Attending Provider Active Start: August 18, 2024 End: August 18, 2024 Team Status: Inactive Member Role/Relationship Status Dates Dr. Laine Dye MD Primary Care Provider Active Start: August 22, 2024 End: August 22, 2024 NORMA Rahman Attending Provider Active Start: August 22, 2024 End: August 22, 2024 NORMA Rahman Referring Provider Active Start: August 22, 2024 End: August 22, 2024 Team Status: Inactive Member Role/Relationship Status Dates Dr. Laine Dye MD Primary Care Provider Active Start: October 19, 2024 End: October 19, 2024 Dr. Lester Aguilar DO Emergency Provider Active Start: October 19, 2024 End: October 19, 2024 Team Status: Inactive Member Role/Relationship Status Dates Dr. Laine Dye MD Primary Care Provider Active Start: October 21, 2024 End: October 21, 2024 Dr. Laine Dye MD Referring Provider Active Start: October 21, 2024 End: October 21, 2024 Dr. Vishnu Herndon DO Attending Provider Active Start: October 21, 2024 End: October 21, 2024 Team Status: Active Member Role/Relationship Status Dates Dr. Laine Dye MD Primary Care Provider Active Start: October 21, 2024 Dr. Laine Dye MD Referring Provider Active Start: October 21, 2024 Dr. Vishnu Herndon DO Attending Provider Active Start: October 21, 2024 Dr. Vishnu Herndon DO Other Provider Active St art: October 21, 2024 Team Status: Inactive Member Role/Relationship Status Dates Dr. Laine Dye MD Primary Care Provider Active Start: October 19, 2024 End: October 19, 2024 Dr. Lester Aguilar DO Attending Provider Active Start: October 19, 2024 End: October 19, 2024 Dr. Lester Aguilar DO Emergency Provider Active Start: October 19, 2024 End: October 19, 2024 Team Status: Inactive Member Role/Relationship Status Dates Dr. Laine Dye MD Primary Care Provider Active Start: November 01, 2024 End: November 01, 2024 Dr. Aidan Hickey DO Emergency Provider Activ e Start: November 01, 2024 End: November 01, 2024 Applications Engineer Manufacturing Relationship Specialty Start Date End Date Laine Dye [address] [place] [id number] PCP - General Family Medicine 04/01/21 Rupa Sandoval [address] [place] [address] [place] [phone] Psychiatry 02/27/17 Applications Engineer Manufacturing Relationship Specialty Start Date End Date Laine Dye MD [address] [facility] [place] [address] [phone] (work) PCP - General 02/04/21 Team Status: Inactive Member Role/Relationship Status Dates Dr. Laine Dye MD Primary Care Provider Active Start: August 12, 2024 End: August 12, 2024 Dr. Aidan Hickey DO Attending Provider Activ e Start: August 12, 2024 End: August 12, 2024 Dr. Aidan Hickey DO Emergency Provider Activ e Start: August 12, 2024 End: August 12, 2024 Team Status: Inactive Member Role/Relationship Status Dates Dr. Laine Dye MD Primary Care Provider Active Start: August 18, 2024 End: August 18, 2024 Dr. Laine Dye MD Referring Provider Active Start: August 18, 2024 End: August 18, 2024 NORMA Rahman Attending Provider Active Start: August 18, 2024 End: August 18, 2024 Team Status: Inactive Member Role/Relationship Status Dates Dr. Laine Dye MD Primary Care Provider Active Start: August 22, 2024 End: August 22, 2024 NORMA Rahman Attending Provider Active Start: August 22, 2024 End: August 22, 2024 NORMA Rahman Referring Provider Active Start: August 22, 2024 End: August 22, 2024 Team Status: Inactive Member Role/Relationship Status Dates Dr. Laine Dye MD Primary Care Provider Active Start: October 19, 2024 End: October 19, 2024 Dr. Lester Aguilar DO Attending Provider Active Start: October 19, 2024 End: October 19, 2024 Dr. Lester Aguilar DO Emergency Provider Active Start: October 19, 2024 End: October 19, 2024 Team Status: Inactive Member Role/Relationship Status Dates Dr. Laine Dye MD Primary Care Provider Active Start: October 21, 2024 End: October 21, 2024 Dr. Laine Dye MD Referring Provider Active Start: October 21, 2024 End: October 21, 2024 Dr. Vishnu [place] DO Attending Provider Active Start: October 21, 2024 End: October 21, 2024 Team Status: Active Member Role/Relationship Status Dates Dr. Laine Dye MD Primary Care Provider Active Start: October 21, 2024 Dr. Laine Dye MD Referring Provider Active Start: October 21, 2024 Dr. Vishnu [place] DO Attending Provider Active Start: October 21, 2024 Dr. Vishnu [place] DO Other Provider Active St art: October 21, 2024 Team Status: Inactive Member Role/Relationship Status Dates Dr. Laine Dye MD Primary Care Provider Active Start: November 01, 2024 End: November 01, 2024 Dr. Aidan Hickey DO Attending Provider Activ e Start: November 01, 2024 End: November 01, 2024 Dr. Aidan Hickey DO Emergency Provider Activ e Start: November 01, 2024 End: November 01, 2024 Team Status: Inactive Member Role/Relationship Status Dates Dr. Laine Dye MD Primary Care Provider Active Start: November 09, 2024 End: November 09, 2024 Dr. Laine Dye MD Referring Provider Active Start: November 09, 2024 End: November 09, 2024 NORMA Rahman Attending Provider Active Start: November 09, 2024 End: November 09, 2024 Source Comments (unrecognize d section and content) In the event this informatio n is protected by the Federal Confidentiality of Alcohol and Drug Abuse Patient Records regulations: The Federal rules restrict any use of the information to criminally investigate or prosecute any alcohol or drug abuse patient.[facility] the event this information is protected by the Federal Confidentiality of Alcohol and Drug Abuse Patient Records regulations: The Federal rules restrict any use of the information to criminally investigate or prosecute any alcohol or drug abuse patient.[facility] the event this information is protected by the Federal Confidentiality of Alcohol and Drug Abuse Patient Records regulations: The Federal rules restrict any use of the information to criminally investigate or prosecute any alcohol or drug abuse patient.[facility] the event this information is protected by the Federal Confidentiality of Alcohol and Drug Abuse Patient Records regulations: The Federal rules restrict any use of the information to criminally investigate or prosecute any alcohol or drug abuse patient.[facility] the event this information is protected by the Federal Confidentiality of Alcohol and Drug Abuse Patient Records regulations: The Federal rules restrict any use of the information to criminally investigate or prosecute any alcohol or drug abuse patient.[facility] the event this information is protected by the Federal Confidentiality of Alcohol and Drug Abuse Patient Records regulations: The Federal rules restrict any use of the information to criminally investigate or prosecute any alcohol or drug abuse patient.[facility] the event this information is protected by the Federal Confidentiality of Alcohol and Drug Abuse Patient Records regulations: The Federal rules restrict any use of the information to criminally investigate or prosecute any alcohol or drug abuse patient.[facility] Reason for Visit (unrecogniz ed section and content) Reason Comments Medication Request Reason Comments Diarrhea Diarrhea and stomach hurts x 4 days Reason Onset Date Comments Med Refill 08/04/2022 Reason Comments Hand Injury Reason Onset Date Comments Psychiatric Problem 09/14/2023 Reason Onset Date Comments Psychosis 12/27/2023 Reason Comments Radiology XR Reason Onset Date Comments Med Refill 04/28/2022 Reason Onset Date Comments Med Refill 05/16/2022 Reason Onset Date Comments Abdominal Pain 04/14/2024 Reason Comments Med Refill Reason Onset Date Comments Med Refill 08/04/2024 Reason Onset Date Comments Medication Problem 08/12/2024 Reason Comments Medication Question Reason Onset Date Comments Med Refill 11/07/2024 Scheduled Active and Recently Administ ered Medications (unrecognized section and content) Medication Order 08/09/2023 08/10/2023 08/11/2023 diphenhydrAMINE (BENADryl) injection 50 mg (COMPLETED) 50 mg, intramuscular, Once, On Thu08/10/23 at 2155, For 1 dose, If giving IV push, max rate of 25 mg/min. 2199 (Given - Provider: Pina Watkins RN) haloperidol lactate (Haldol) injection 5 mg (COMPLETED) 5 mg, intramuscular, Once, On Thu08/10/23 at 2155, For 1 dose, Patients receiving IV haloperidol should be on continuous cardiac monitoring. 2199 (Given - Provider: Pina Watkins RN) ketamine (Ketalar) solution 340 mg (COMPLETED) 340 mg (5 mg/kg 68 kg), intramuscular, Once, On Thu08/10/23 at 2240, For 1 dose, If IM, give deeply into a large muscle mass. If ordered IV or CO, must dilute 1:1 prior to administration. 2248 (Given - Provider: Pina Watkins RN) LORazepam (Ativan) injection 2 mg (COMPLETED) 2 mg, intramuscular, Administer over 5 Minutes, Once, On Thu08/10/23 at 2155, For 1 dose 2200 (Given - Provider: Pina Watkins RN) nicotine (Nicoderm CQ) 21 mg/24 hr patch 1 patch 1 patch, transdermal, Administer over 24 Hours, Daily, First dose on Thu08/11/23 at 0900 0540 (Medication Juan Diego lied - Provider: Pina Watknis RN) Continuous Medication Order 08/09/2023 08/10/2023 08/11/2023 oxygen (O2) therapy inhalation, Continuous, Starting on Thu08/10/23 at 2240, Apply when safe., Device: Nasal Cannula, Rate in liters per minute: 2 LPM, Keep O2 Sat Above: 92% 2240 (Due) Scheduled Medication Order 08/30/2023 08/31/2023 09/01/2023 ibuprofen tablet 400 mg (COMPLETED) 400 mg, Oral, Once, On Thu09/01/23 at 0640, For 1 dose 0640 (Given - Provid er: Melissa Ross RN) FOR RECORDS PERTAINING TO PATIENTS WHO ARE [...] BE BASED ON THE PRIMARY CLINICAL RECORDS. [employer] provides no warranty or guarantee of the accuracy or completeness of information in this document.
--- NOTE | 2024-11-12 10:34 | EX.ED.VIS.PS ---
HPI HPI - Psych History of Present Illness Chief Complaint: Anxiety Informant: patient Narrative Narrative: Reports increasing anxiety over the last 3 months worsening today. He is diagnosed with ulcers for describes esophagus and possible duodenum 3 weeks ago from upper endoscopy by Dr. Herndon. He is on medications and taking it. No black or bloody stools. He is followed by counseling center on hydroxyzine as needed he gets Invega injections monthly he states he missed his injection 5 days ago. Took his hydroxyzine this morning however still feeling anxious. Denies suicidal homicidal ideations. Denies auditory or visual hallucinations. Denies tobacco or alcohol use. Denies any recreational drug use. He states he took a taxi here he lives alone. Prior similar symptoms: Yes [facility] Medical History Dietary restriction Esophageal tear Smoker Chest pain Asthma Depression Anxiety Wears glasses Marijuana use Restless legs History of gastritis Former smoker History of pain when walking History of edema Hx of fracture of tibia Asthma History of GERD History of substance abuse Depression SOB (shortness of breath) Schizoaffective disorder, bipolar type History of alcohol abuse Bipolar 1 disorder Anxiety Home Medications ?Medication ?Instructions ?Recorded ?Last Taken ?Type buspirone 10 mg tablet 10 mg PO TID 07/11/24 10/21/24 History prazosin 1 mg capsule 1 mg PO QHS 07/11/24 10/20/24 History albuterol sulfate 90 mcg/actuation 2 inh inhalation Q6H PRN shortness 10/19/24 10/21/24 Rx breath activated powder inhaler of breath or wheezing #1 ea (ProAir RespiClick) benztropine 1 mg tablet 1 mg PO DAILY 10/19/24 10/21/24 History clonidine HCl 0.2 mg tablet 0.2 mg PO TID 10/19/24 10/21/24 History hydroxyzine HCl 50 mg tablet 50 mg PO DAILY PRN sleep 10/19/24 10/21/24 History famotidine 40 mg tablet 40 mg PO QHS PRN GERD 10/20/24 Unknown History paliperidone palmitate 156 mg/mL 156 mg IM Q30D 10/20/24 Unknown History intramuscular syringe (Invega Sustenna) dicyclomine 20 mg tablet 20 mg PO BID PRN abdominal pain 11/04/24 Unknown Rx #30 tabs esomeprazole magnesium 40 mg 40 mg PO BID #60 caps 11/04/24 Unknown Rx capsule,delayed release sucralfate 100 mg/mL oral 10 ml PO BID #300 mL 11/09/24 Unknown Rx suspension (Carafate) Allergy/AdvReac Type Severity Reaction Status Date / Time ondansetron (From Zofran) AdvReac Other Verified 11/01/24 14:34 Surgical History History of surgery on lower extremity History of esophagogastroduodenoscopy (EGD) Social History Smoking Status: Current every day smoker tobacco type: cigarettes alcohol intake: former substance use type: does not use and other details: Former use of Marijuana ROS ROS ED Constitutional Constitutional ED: Denies chills, fever(s) or sweats ENT ENT ED: Denies sore throat Cardiovascular Cardiovascular: Denies chest pain, leg edema, palpitations or racing heartbeat Respiratory/Chest Respiratory/Chest: Denies cough, dyspnea or dyspnea on exertion Gastrointestinal Gastrointestinal: Denies abdominal pain, diarrhea, nausea or vomiting Genitourinary Genitourinary ED: Denies dysuria, hematuria or urinary frequency Musculoskeletal Musculoskeletal: Denies back pain, extremity pain or neck pain Integumentary Denies rash or wounds Neurologic Neurologic: Denies headache(s), paresthesias or weakness Psychiatric Psychiatric: Reports anxiety; Denies suicidal ideation or suicidal thoughts EXAM Physical Exam Const Vital Signs: 11/12/24 09:26 11/12/24 11:26 11/12/24 12:06 Temperature 97.9 F 97.8 F Temperature Source Temporal Pulse Rate 113 H 99 82 Respiratory Rate 18 18 16 Blood Pressure 130/86 H 132/94 H 127/82 H Blood Pressure Mean 100 106 97 Pulse Ox 100 99 100 Oxygen Delivery Method Room Air Positive well nourished and well developed General Appearance ED: well developed and NAD HEENT Reports moist mucous membranes normocephalic and atraumatic Eyes General Eye ED: Yes normal appearance of both eyes; Negative for pale conjunctiva Neck full ROM Chest Wall Chest: Negative for tenderness Resp normal respiratory effort and normal air movement Effort and Inspection: symmetric chest movement; Negative for respiratory distress Cardio regular rate, regular rhythm and no murmurs Peripheral Pulses: pulses 2+ throughout GI normal to inspection, nondistended, normoactive bowel sounds and non-tender Palpation: Negative for guarding or rebound tenderness present Extremity normal to inspection General Extremety ED: Negative for edema or tenderness General Extremity: Negative for edema Neuro oriented x3 and no sensory deficits noted Sensorium / Orientation: awake and alert Psych Psych Narrative: Anxious, cooperative. Denies suicidal or homicidal ideations. Skin no rashes or lesions noted and no wounds MDM MDM MDM Narrative Medical decision making narrative: Interventions / MDM: Differential diagnosis: Anxiety, history of bipolar, history of gastric ulcers Diagnosis considered but do not suspect: N/A My EKG interpretation: N/A Imaging independently reviewed and interpreted by myself: N/A External documents reviewed: N/A Test considered but not ordered:N/A ED course: Tachycardic nontoxic denies suicidal homicidal ideations. Reports anxiety secondary to recent diagnosis of ulcers. Reassured with patient currently on appropriate medical treatment of a PPI and sucralfate. He denies any GI bleed symptoms. Took his hydroxyzine with increasing symptoms. I will dose him with Ativan p.o. and will reevaluate. 1145: He is a still anxious but improving. He has no suicidal or homicidal ideations. Heart rate improved. I discussed talking with his psychiatry team for potential additional breakthrough medications along with getting in for his Invega shot. All his questions were answered. Re-evaluation: stable Disposition discussed with patient/family/significant other: Patient Case discussed with consulting clinician: N/A This note was generated with [employer] dictation software. It may contain incorrect words, spelling, and punctuation that were not noted in checking the note before signing. Discharge Plan Triage Chief Complaint: Anxiety ED Provider: Blayne Canas Dx/Rx/DC Orders Clinical Impression: Anxiety, History of bipolar disorder, History of gastric ulcer Instructions: Anxiety Disorders Tx Prescriptions: No Action sucralfate [Carafate] 100 mg/mL suspension 10 ml PO BID Qty: 300 3RF prazosin 1 mg capsule 1 mg PO QHS buspirone 10 mg tablet 10 mg PO TID Invega Sustenna 156 mg/mL syringe 156 mg IM Q30D famotidine 40 mg tablet 40 mg PO QHS PRN (Reason: GERD) ProAir RespiClick 90 mcg/actuation aerosol powdr breath activated 2 inh inhalation Q6H PRN (Reason: shortness of breath or wheezing) Qty: 1 0RF hydroxyzine HCl 50 mg tablet 50 mg PO DAILY PRN (Reason: sleep) clonidine HCl 0.2 mg tablet 0.2 mg PO TID benztropine 1 mg tablet 1 mg PO DAILY dicyclomine 20 mg tablet 20 mg PO BID PRN (Reason: abdominal pain) Qty: 30 0RF esomeprazole magnesium 40 mg capsule,delayed release(DR/EC) 40 mg PO BID Qty: 60 3RF Primary Care Provider: Waylon Dye Referrals: Waylon Dye MD [Primary Care Provider] - Activity Restrictions/Additional Instructions: History of anxiety. Call your counselor office to get your outpatient Invega shots. Continue hydroxyzine. Discussed with your psychiatry team for additional breakthrough medications or adjustment of medications as needed. You are on appropriate medications to treat your reported history of ulcers. Continue those medications. Print Language: Persian Disposition Disposition: Home, Self Care Discharge Date/Time: 11/12/24 12:06
[2024-11-12 11:26] VITALS: BP 132/94; PULSE 99; RESP 18; O2SAT 99
[2024-11-12 12:06] VITALS: BP 127/82; PULSE 82; RESP 16; TEMP 36.6; O2SAT 100
== END 2024-11-12 12:06 | disposition home or self-care (01) ==
PROVIDERS: Emergency Provider Emergency Medicine; PCP Family Medicine; Visit Provider Emergency Medicine
DX: F41.9 Anxiety disorder, unspecified (principal); F31.9 Bipolar disorder, unspecified; K25.3 Acute gastric ulcer without hemorrhage or perforation; F17.210 Nicotine dependence, cigarettes, uncomplicated; Z79.899 Other long term (current) drug therapy
CPT/HCPCS: 99282

== ENCOUNTER 2024-11-14 06:21 | Emergency (ER) | payer MEDICAID, SELFPAY ==
[2024-11-14 06:23] VITALS: BP 119/74; PULSE 83; RESP 18; TEMP 36.9; O2SAT 99
--- NOTE | 2024-11-14 06:38 | EX.ED.VIS.PS ---
HPI HPI - Psych History of Present Illness Chief Complaint: Anxiety Informant: patient and EMS Narrative Narrative: 34-year-old male presents via EMS for anxiety about his esophagitis and gastric ulcer discomfort that he has had for over a month, he has been on treatment for it since it was diagnosed by EGD about 2 weeks ago including Nexium and Carafate, he states the pain has been flaring up at times, tonight he took famotidine for it and his discomfort is basically gone and he is asking for something for anxiety. He states Ativan helps when he is given that. PFSH PFS Medical History Dietary restriction Esophageal tear Smoker Chest pain Asthma Depression Anxiety Wears glasses Marijuana use Restless legs History of gastritis Former smoker History of pain when walking History of edema Hx of fracture of tibia Asthma History of GERD History of substance abuse Depression SOB (shortness of breath) Schizoaffective disorder, bipolar type History of alcohol abuse Bipolar 1 disorder Anxiety Home Medications ?Medication ?Instructions ?Recorded ?Last Taken ?Type buspirone 10 mg tablet 10 mg PO TID 07/11/24 10/21/24 History prazosin 1 mg capsule 1 mg PO QHS 07/11/24 10/20/24 History albuterol sulfate 90 mcg/actuation 2 inh inhalation Q6H PRN shortness 10/19/24 10/21/24 Rx breath activated powder inhaler of breath or wheezing #1 ea (ProAir RespiClick) benztropine 1 mg tablet 1 mg PO DAILY 10/19/24 10/21/24 History clonidine HCl 0.2 mg tablet 0.2 mg PO TID 10/19/24 10/21/24 History hydroxyzine HCl 50 mg tablet 50 mg PO DAILY PRN sleep 10/19/24 10/21/24 History famotidine 40 mg tablet 40 mg PO QHS PRN GERD 10/20/24 Unknown History paliperidone palmitate 156 mg/mL 156 mg IM Q30D 10/20/24 Unknown History intramuscular syringe (Invega Sustenna) dicyclomine 20 mg tablet 20 mg PO BID PRN abdominal pain 11/04/24 Unknown Rx #30 tabs esomeprazole magnesium 40 mg 40 mg PO BID #60 caps 11/04/24 Unknown Rx capsule,delayed release sucralfate 100 mg/mL oral 10 ml PO BID #300 mL 11/09/24 Unknown Rx suspension (Carafate) Allergy/AdvReac Type Severity Reaction Status Date / Time ondansetron (From Zofran) AdvReac Other Verified 11/14/24 06:22 Surgical History History of surgery on lower extremity History of esophagogastroduodenoscopy (EGD) Social History Smoking Status: Current every day smoker tobacco type: cigarettes alcohol intake: former substance use type: does not use and other details: Former use of Marijuana ROS ROS ED Constitutional Constitutional ED: Denies chills or fever(s) Eyes Eyes: Denies change in vision or diplopia ENT ENT ED: Denies rhinorrhea or sore throat Cardiovascular Cardiovascular: Denies chest pain or palpitations Respiratory/Chest Respiratory/Chest: Denies cough or dyspnea Gastrointestinal Gastrointestinal: Reports abdominal pain; Denies diarrhea, nausea or vomiting Genitourinary Genitourinary ED: Denies dysuria or hematuria Musculoskeletal Musculoskeletal: Denies back pain or neck pain Integumentary Denies abscess or rash Neurologic Neurologic: Denies headache(s), paresthesias or weakness Psychiatric Psychiatric: Reports anxiety; Denies suicidal thoughts EXAM Physical Exam Const Vital Signs: 11/14/24 06:23 11/14/24 06:34 Temperature 98.5 F Temperature Source Oral Pulse Rate 83 Respiratory Rate 18 Respiratory Effort Normal Non-Labored Respiratory Pattern Normal Blood Pressure 119/74 Blood Pressure Mean 89 Pulse Ox 99 Oxygen Delivery Method Room Air Positive well nourished and well developed General Appearance ED: well developed and NAD Eyes PERRL and EOMs intact bilaterally Neck full ROM and supple Resp normal respiratory effort GI non-distended Extremity normal to inspection General Extremety ED: Negative for edema General Extremity: Negative for edema Neuro oriented x3, CN's II-XII intact bilaterally and no sensory deficits noted Sensorium / Orientation: awake and alert Motor Exam: strength 5/5 throughout Psych Appearance: grossly normal Activity / Motor Behavior: appropriate eye contact and psychomotor agitation Thought Content: normal thought content Attention / Concentration: attention grossly intact Memory / Cognition: memory grossly intact Skin no wounds Rashes: no rashes MDM MDM MDM Narrative Medical decision making narrative: I reviewed this patient's chart briefly, she was seen here 1 week ago for the exact same thing and given Ativan. He is asking for Ativan now. He missed an Invega injection, he has not yet received that and is supposed to hopefully get it today. His vital signs are normal he is not tachycardic, he has a history of schizoaffective disorder bipolar 1 disorder, anxiety, depression. Giving him 3 tablets of hydroxyzine, advising him that I am not giving him any controlled substances for this, and he should follow-up and get his Invega injection as soon as possible, and I also reassured him about the pathology that was seen on the EGD, that these are frequently easily treated by medications and time to heal. I offered him something for his abdominal discomfort but he declined it because he took a famotidine and states it is better. He was extremely tremulous and shaky in the bed but he was able to get up and walk back and forth to the bathroom without any apparent discomfort or limitation, stable for discharge and follow-up. History & Record Review Additional record(s) reviewed:: Prior outpatient record (EGD 3 weeks ago showing nonbleeding gastric ulcer and some mild esophagitis) and Prior ED visit Discharge Plan Triage Chief Complaint: Anxiety ED Provider: Hieu Man Dx/Rx/DC Orders Clinical Impression: Anxiety about health, Gastro-esophageal reflux disease with esophagitis, without bleeding, Gastric ulcer, Intermittent upper abdominal pain Instructions: ED Anxiety Reaction Prescriptions: No Action sucralfate [Carafate] 100 mg/mL suspension 10 ml PO BID Qty: 300 3RF prazosin 1 mg capsule 1 mg PO QHS buspirone 10 mg tablet 10 mg PO TID Invega Sustenna 156 mg/mL syringe 156 mg IM Q30D famotidine 40 mg tablet 40 mg PO QHS PRN (Reason: GERD) ProAir RespiClick 90 mcg/actuation aerosol powdr breath activated 2 inh inhalation Q6H PRN (Reason: shortness of breath or wheezing) Qty: 1 0RF hydroxyzine HCl 50 mg tablet 50 mg PO DAILY PRN (Reason: sleep) clonidine HCl 0.2 mg tablet 0.2 mg PO TID benztropine 1 mg tablet 1 mg PO DAILY dicyclomine 20 mg tablet 20 mg PO BID PRN (Reason: abdominal pain) Qty: 30 0RF esomeprazole magnesium 40 mg capsule,delayed release(DR/EC) 40 mg PO BID Qty: 60 3RF Primary Care Provider: Waylon Dye Referrals: Counseling,Center [Group of Physicians] - (today for Invega injection as able) Waylon Dye MD [Primary Care Provider] - Print Language: Vietnamese Disposition Disposition: Home, Self Care
[2024-11-14 06:42] VITALS: BP 113/84; PULSE 84; RESP 18; TEMP 36.9; O2SAT 100
[2024-11-14] MEDS: hydrOXYzine PAM 25 MG Capsule 75 MG PO (06:46)
--- OUTSIDE RECORDS SUMMARY | 2024-11-14 06:52 | XMS RPT_ITS | CCD ---
Author Organization [facility] CliniSyva Care Team Providers Care Mini Bar Attendant Name Role Phone BARBARA ASHLEY Unavailable Unavailable JULIANNA ESCALERA Unavailable Unavailable ALEJANDRINA LIZAMA Unavailable Unavailable CHE LERNER Unavailable Unavailabl e DAVIDSON ASHRAF Unavailable Unavailable PHYSICIAN, NONE Primary Care Physician Unavailab Dr. Laine Bernabe Primary Care Provider Dr. Peng Olivas Attending Provider Dr. Gricel Talley Referring Provider Rupa Sandoval Unavailable Laine Dye Primary Care Provider Laine Dye MD Primary Care Provider Unavailable Primary Care Provider UnavailWES Galvan Attending Unavailable WES JACKSON Referring Unavailable Laine Dye MD Primary Care Provider LAINE DYE Primary Care UnavailMARLENA Nuñez Attending Unavailable LAINE DYE Primary Care Unavailabl e Laine Dye Primary Care Provider Sylvester Ramirez Emergency Provider provider (Unknown), Unlisted Primary Care Provid er Unavailable LAINE DYE Primary Care UnavailWES Campoverde Attending Unavailable LAINE DYE Primary Care Unavailabl e MIRANDA NATHAN Attending Unavailable LAINE DYE Primary Care Unavailabl e Omkar Del Cid Emergency Provider Sylvester Ramirez Attending Unavailable provider (Unknown), Unlisted Primary Care Nichole vailable provider (Unknown), Unlisted Primary Care Nichole vailable Omkar Del Cid Attending Unavailable HARDIK, LAINE ANA ROSA Primary Care Unavailkarin Lantigua MD, Donald Lopez Primary Care Provider Hardik STEWART, Dr. Connors Primary Care Provider Gerri DELGADILLO, Dr. Monsalve Emergency Provider eGrri DELGADILLO, Dr. Monsalve Attending Provider [phone] Edelmira DELGADILLO, Dr. Bermudez Emergency Provider Edelmira DELGADILLO, Dr. Bermudez Attending Provider Hardik STEWART, Dr. Connors Referring Provider Yoselyn Zhu Attending Provider Yoselyn Zhu Referring Provider Lauren DELGADILLO, Dr. Batista Emergency Provider Katrina DELGADILLO, Dr. Mares Attending Provider Katrina DELGADILLO, Dr. Mares Other Provider [phone] Lauren DELGADILLO, Dr. Batista Attending Provider Hardik STEWART, Dr. Connors Primary Care Provider Hardik, Laine Primary Care Unavailable Gricel Talley Attending Unavailable Klusty-Aidan Vega Attending Unavailabl e Hardik, Liane Primary Care Unavailable Hardik, Laine Referring Unavailable Hardik, Laine Primary Care Unavailable Yoselyn Ceja Attending Unavailable Yoselyn Ceja Referring Unavailable Hardik, Laine Primary Care Unavailable Yoselyn Ceja Attending Unavailable Lester Aguilar Attending Unavailable Hardik, Laine Primary Care Unavailable Hardik, Laine Primary Care Unavailable Klusty-Aidan Vega Attending Unavailabl e Hardik, Laine Referring Unavailable Hardik, Laine Primary Care Unavailable Vishnu Herndon Attending Unavailable Ungur, Remus Attending Unavailable Ungur, Remus Referring Unavailable Hardik, Laine Primary Care Unavailable Hardik, Laine Primary Care Unavailable Yoselyn Ceja Attending Unavailable Hardik, Laine Referring Unavailable Hardik, Laine Referring Unavailable Hradik, Laine Primary Care Unavailable Michael Herndonaan Consulting Unavailable Friend, Vishnu Attending Unavailable Dr. Blayne Canas DO Emergency Provider Allergies Allergy Classification Reported Allergen(s) Allergy Type Date of Onset Reaction(s) Facility (3 sources) Cat Allergy to substance [facility] Shonda (20 sources) Ondansetron Drug Allergy 09-01-2021 Other [facility] Comment on above: headaches (4 sources) Cat Hair Extract [facility] Cat Dander Allergy to substance 11-11-2022 [facility] (1 source) Ondansetron Drug Allergy 11-01-2024 [facility] Repository Medications Current Medications Medication Drug Class(es) [...] ed 2 INH INHALATION EVERY 6 HOURS February 20, 2021 1:44pm January 04, 2023 [...] CFC free inhalation aerosol (3 sources) Start: take 2 puff(s) by inhalation four times [...] Active benztropine mesylate 1 mg oral tablet (5 sources) Anticholinergic, Antihistamine Start: 025 take 1 tablet by mouth once daily Benztropine 1 mg tablet Active 1 mg PO DAILY October 19, 2024 12:00am BuPROPion (Eqv-Wellbutrin SR) 150 mg/12 hours oral tablet, extended release (3 sources) Start: BuPROPion (Eqv-Wellbutrin SR) 150 mg/12 hours oral tablet, extended release Dose : 150 mg = 1 tab(s), Oral, BID Start Date: 11/29/19 Status: Ordered busPIRone hydrochloride 10 mg oral tablet (20 sources) Start: take 1 tablet by mouth three times [...] day dicyclomine hydrochloride 20 mg oral tablet (7 sources) Anticholinergic Start: 10-18-19 End: 11-05-19 take 1 tablet by mouth twice daily as needed for pain Dicyclomine 20 mg tablet Active 20 mg PO TWICE A DAY as needed for abdominal pain 30 0 November 04, 2024 7:59am esomeprazole 40 mg delayed release oral capsule (20 sources) Proton Pump Inhibitor Start: 09-16-19 End: 11-05-19 take 1 capsule by mouth twice daily Esomeprazole Magnesium 40 mg capsule,delayed release(DR/EC) Active 40 mg PO TWICE A DAY 60 3 November 04, 2024 8:00am Start: 07-11-2024 End: [...] Start: 05-02-2022 take 1 capsule by mo [facility] twice daily esomeprazole (NexIUM) 20 MG [...] tablet Discontinued 10 mg PO daily 30 2 August 24, 2024 12:00am October 17, 2024 [...] Start: 03-25-2021 take 1 capsule by mo [facility] every twenty-four hours as needed hydrOXYzine [...] above: Take 1 tablet by brittany th once daily. meloxicam 7.5 mg oral tablet [...] (2 sources) Proton Pump Inhibitor Start: End: 023 take 1 capsule by mouth twice daily [...] ml paliperidone palmitate 156 mg/ml prefilled syringe (18 sources) Atypical Antipsychotic Start: 025 inject 156 [...] 2024 11:00am prazosin 1 mg oral capsule (7 sources) alpha-Adrenergic Kaz Start: 07-11-2024 take 1 [...] 2 NMA INHALATION TWICE A DAY 1 February 29, 2020 1:00am March 01, 2020 10:54am administer with spacer, rinse mouth after each use Start: 02-29-2020 End: 03-01-2020 take 1 puff(s) by mouth twice daily Budesonide-Formoterol (Symbicort) 160-4.5 mcg/actuation HFA aerosol inhaler Discontinued 2 PUFF INHALATION TWICE A DAY 1 February 29, 2020 12:00am March 01, 2020 9:54am administer with spacer, rinse mouth after each use Start: 02-29-2020 End: 03-01-2020 take 1 puff(s) by mouth twice daily Budesonide-Formoterol (Symbicort) 160-4.5 mcg/actuation HFA aerosol inhaler Discontinued 2 PUFF INHALATION TWICE A DAY 1 February 29, 2020 1:00am March 01, 2020 [...] A DAY cephalexin 500 mg oral capsule (10 sources) Cephalosporin Antibacterial Start: 09-18-19 End: 07-02-19 take 1 capsule by mouth three times daily Cephalexin 500 mg capsule Discontinued 500 mg PO THREE TIMES A DAY 15 5 0 September 17, 2022 12:00am July 02, 2023 5:25am diphenhydrAMINE (3 sources) Histamine-1 Receptor Antagonist Start: 08-10-19 End: 08-10-19 Starting on Thu08/10/23 at 2155, For 1 dose, Created by maryant carloside Start: 08-10-2023 End: 08-10-2023 50 mg, intramuscular, Once, On Thu08/10/23 at 2155, For 1 dose, If giving IV push, max rate of 25 mg/min. Start: 04-29-2021 take 2 capsules by m outh every six hours Diphenhydramine Hcl (Benadryl) 25 mg Capsule Active 50 MG PO EVERY 6 HOURS April 29, 2021 1:33pm doxycycline hyclate 100 mg oral capsule (15 sources) Tetracycline-class Drug Start: 01-22-2022 End: 07-02-2023 [...] 2019 11:24am haloperidol 5 mg oral tablet (11 sources) Typical Antipsychotic Start: 02-05-2024 End: 10-20-2024 [...] large muscle mass. If ordered IV or IA, must dilute 1:1 prior to administration. LORazepam [...] Status: Ordered melatonin 10 mg oral capsule (14 sources) Start: 07-11-2024 End: 10-19-2024 take 1 [...] 2024 12:00am July 11, 2024 11:00am nystatin [id number] unt/ml oral suspension (20 sources) Polyene Antifungal [...] a day. Start: 01-27-2022 nystatin (Myco statin) [id number] UNIT/ML suspension Use 500,000 Units in the [...] before meal. predniSONE 20 mg oral tablet (11 sources) Start: 3 End: take 1 tablet by mouth twice daily Prednisone 20 mg tablet Discontinued 20 mg PO TWICE A DAY 10 September 03, 2022 12:00am January 04, 2023 3:50pm QUEtiapine 100 mg oral tablet (20 sources) Atypical Antipsychotic Start: 3 End: 4 Quetiapine (Seroquel) 100 mg Tablet Discontinued 50 [...] Active traZODone hydrochloride 100 mg oral tablet (20 sources) Serotonin Reuptake Inhibitor Start: 01-22-2020 End: [...] sodium 500 mg delayed release oral tablet (14 sources) Mood Stabilizer, Anti-epileptic Agent Start: 02-16-2020 [...] [Epigastric pain] Onset: 03-07-2021 Episodic Alcohol-related disorders (14 sources) History of alcohol abuse; 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, in remission] 04-29-2021 Chronic Comment on above: SOBER 3 YRS AGO SOBER SINCE 12/2023 Alcohol-related disorders (3 sources) Alcohol intoxication delirium ; Translations: [Alcohol use, unspecified with intoxication delirium] Onset: 08-10-2023 08-11-2023 Episodic Allergic reactions (14 sources) Allergic condition; Translations: [Allergy, unspecified, initial [...] esophagitis without hemorrhage] Onset: 01-30-2020 05-17-2021 Chronic Fluid and electrolyte disorders (3 sources) Hyponatremia; Translations: [Hypo-osmolality and hyponatremia] 11-01-2024 Episodic Gastritis and duodenitis (20 sources) Gastritis; Translations: [Gastritis, unspecified, without bleeding] Onset: 03-22-2021 Episodic Gastroduodenal ulcer (except hemorrhage) (5 sources) Gastric ulcer; Translations: [Gastric ulcer, unspecified as acute or chronic, without hemorrhage or perforation] Onset: 11-09-2024 11-09-2024 Chronic Gastroduodenal ulcer (except hemorrhage) (1 source) H/O: gastric ulcer; Translations: [Personal history of peptic ulcer disease] 11-12-2024 Episodic Gastrointestinal hemorrhage (8 sources) Rectal hemorrhage; Translations: [Hemorrhage of anus and rectum] Onset: 07-20-2024 07-11-2024 Episodic Headache; including migraine (2 sources) Headache; Translations: [...] features, unspecified] Onset: 12-04-2015 03-16-2020 Chronic Mycoses (12 sources) Candidiasis of mouth; Translations: [Candidal stomatitis] 06-18-2022 Episodic Nausea and vomiting (13 sources) Vomiting; Translations: [Vomiting, unspecified] 09-14-2021 Episodic Nonspecific chest pain (14 sources) Chest pain; Translations: [Chest pain, unspecified] [...] unspecified] Onset: 08-25-2024 Chronic Other gastrointestinal disorders (14 sources) Constipation; Translations: [Constipation, unspecified] 05-02-2020 Episodic Other gastrointestinal disorders (1 source) Diarrhea; Translations: [Diarrhea, unspecified] Episodic Other hereditary and degenerative nervous system conditions (12 sources) Restless legs; Translations: [Restless legs syndrome] Onset: 04-17-2021 02-09-2022 Chronic Other injuries and conditions due to external causes (14 sources) Injury of finger; Translations: [Unspecified injury of unspecified wrist, hand and finger(s), initial encounter] 09-02-2019 Episodic Other lower respiratory disease (19 sources) Dyspnea; Translations: [Shortness of breath] 09-17-2019 Episodic Other lower respiratory disease (1 source) Shortness of breath; Translations: [Shortness of breath] Onset: 10-24-2024 Episodic Other male genital disorders (10 sources) Prolonged erection of penis; 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, unspecified] 01-04-2023 Chronic Other nervous system disorders (12 sources) Neuropathy; Translations: [Polyneuropathy, unspecified] Onset: 04-17-2021 02-09-2022 Chronic Other upper respiratory disease (14 sources) Acute bronchospasm; Translations: [Acute bronchospasm] 05-30-2019 Episodic Other upper respiratory disease (1 source) Pain in throat; Translations: [Pain in throat] Episodic Other upper respiratory infections (11 sources) Viral upper respiratory tract infection; Translations: [...] of mental health and substance abuse codes (2 sources) Personal history of other mental and behavioral disorders; Translations: [H/O: manic depressive disorder] Onset: 12-26-2023 11-12-2024 Episodic Substance-related disorders (20 sources) History of substance abuse; Translations: [Other psychoactive substance abuse, in remission] Onset: 11-30-2023 03-16-2020 Chronic Superficial injury; contusion (10 sources) Foreign body of foot; Translations: [Superficial foreign body, right foot, initial encounter] 10-08-2022 Episodic Unclassified (1 source) RM22 Onset: 01-04-2023 Past or Other Problems Problem Classification Problem Date Documented Da te Episodic/Chronic Esophageal disorders (15 sources) Esophageal disorders; Translations: [Gastro-esophageal reflux disease with esophagitis, without bleeding] Onset: 11-09-2024 11-24-2021 Comment on above: ON MED Mood disorders (9 sources) Mood disorders Onset: [...] Visit Repor ton 11-09-2024 Gastroenterology Visit Report [facility] Gastroenterology [address] [address] OFFICE VISIT Date of Service: 11/09/24 MR#: [id number] Acct: [id number] Name: MATTY WHITLOCK Rep #: [id number] : 1990 Provider: NORMA Rahman Age/Sex: 34/M Location: [facility] Status: Signed Intake Vital Signs 11/01/24 14:23 Height 5 ft 7 in Intake Visit Reasons: Abdominal pain Chief Complaint: epigastric pain Is patient in pain?: Yes Allergies ondansetron (From Zofran) Adverse Reaction (Verified 11/01/24 14:34) Other Nurse's Note: OV 11/09/24 Pt here for a f/u and reports epigastric pain, n/v, gas, and bloating. Pt reports no medication changes. [facility] Medical History Dietary restriction Esophageal tear Smoker [...] - Erythematous duodenopathy. Biopsied. GES; not completed [facility] ED 07.21.24 with abd pain and anxiety. [...] soft and nontender (more content not included)... [facility] 36on 11-07-2024 36 Reviewed chart. Refi ll appropriate. RX sent. [facility] 36 Pended prior rx of albuterol inh. [facility] 36 Pt stated he was in the [...] to picking up the medication: No Normal [facility] Abdomen/Pelvis W IV Cont ONL Yon 11-01-2024 Abdomen/Pelvis W IV Cont ONLY [facility] Imaging Services [address] [place], [place] [address] Abdomen/Pelvis W IV Cont ONLY MR#: [id number] Acct: [id number] Name: MATTY WHITLOCK Rep #: [id number] : 1990 M 34 From: Lexii Lopez PCP: Dr. Laine Dye MD Status: REG ER Study: Abdomen/Pelvis W IV Cont ONLY Date of Exam: Exam# [id number] Ordering Dr: Aidan Hickey DO PROCEDURE: ABDOMEN/PELVIS [...] acute diverticulitis. No bowel obstruction. Reading Location: [facility] CC: Dr. Aidan Hickey DO; Dr. Laine Dye MD Technical Support Engineer: Signed Normal [facility] Absolute lymphocyte countOrd ered By: [facility] Hospital[facility]doul[facility] on 11-01-2024 Lymphocytes Auto (Unsp spec) [#/Vol] 3.02 10*3/uL 0.83-4.51 [facility] Absolute neutrophil countOrd ered By: [facility]willaCommunity [facility] HospitalGary on 11-01-2024 Neutrophils (Bld) [#/Vol] 9.4 10*3/uL High 2.0-7.7 [facility] Anion gap in Serum or Plasma Ordered By: [facility] HospitalShanique on 11-01-2024 Anion gap [Moles/Vol] 10 mmol/L 5-15 [facility] Automated lymphocyte count a s percentage of total leukocytesOrdered By: Aidanletty Hickey on 11-01-2024 Lymphocytes/100 WBC Auto (Unsp spec) 22.2 % 19-41 [facility] BUN/creatinine ratioOrdered By: Aidan Hickey on 11-01-2024 Urea nitrogen/Creatinine [Mass ratio] 6.8 mg/mg Low 10-20 [facility] Basic Metabolic Profile (BMP )on 11-01-2024 BUN/CRE 6.8 RATIO Low 10-20 [facility] Comment on above: Performed By: #### L 500.2500 ####[facility] [address] [place], [place], [address] Calcium [Mass/Vol] 8.5 mg/dL Normal 7.6-11.0 [facility] Comment on above: Performed By: #### L 500.2500 ####[facility] [address] [place], [address] Chloride [Moles/Vol] 100 mmol/L Normal 98-108 [facility] Comment on above: Performed By: #### L 500.2500 ####[facility] [address] [place], [address] CO2 [Moles/Vol] 22.1 mmol/L Normal 21.0-32.0 [facility] Comment on above: Performed By: #### L 500.2500 ####[facility] [address] [place], [address] Creatinine [Mass/Vol] 0.68 mg/dL Low 0.70-1.20 [facility] Comment on above: Performed By: #### L 500.2500 ####[facility] [address] [place], [address] ECRCL 162.73 ml/min Normal 50-250 [facility] Comment on above: Performed By: #### L 500.2500 ####[facility] [address] [place], [address] GAP 10 Normal 5-15 [facility] Comment on above: Performed By: #### L 500.2500 ####[facility] [address] [place], [address] GFR/1.73 sq M.predicted among non-blacks MDRD (S/P/Bld) [Vol rate/Area] 126 mL/min/{1.73_m2} Normal >60 [facility] Comment on above: Result Comment: mL/m in/1.73m2 CKD-EPI Creatinine Equation (2020) Performed By: #### L 500.2500 ####[facility] [address] [place], [address] Glucose [Mass/Vol] 96 mg/dL Normal 70-99 [facility] Comment on above: Performed By: #### L 500.2500 ####[facility] [address] [place], [address] Potassium [Moles/Vol] 3.6 mmol/L Normal 3.3-5.1 [facility] Comment on above: Performed By: #### L 500.2500 ####[facility] [address] [place], [address] Sodium [Moles/Vol] 133 mmol/L Normal 133-145 [facility] Comment on above: Performed By: #### L 500.2500 ####[facility] [address] [place], [address] Urea nitrogen [Mass/Vol] 5 mg/dL Normal 4-19 [facility] Comment on above: Performed By: #### L 500.2500 ####[facility] [address] [place], [address] Basophil percentageOrdered B y: Aidan Hickey on 11-01-2024 Basophils/100 WBC (Bld) 0.7 % 0-1 [facility] Bilirubin, totalOrdered By: Aidan Hickey on 11-01-2024 Bilirubin [Mass/Vol] 0.20 mg/dL 0.00-1.30 [facility] CBC W/Diff, Automatedon 07-0 Absolute Lymph 3.02 X10 3/uL Normal 0.83-4.51 [facility] Comment on above: Performed By: #### L 501.2450, L500.4050, L100.0100 ####[facility] [address] [place], [address] Absolute Neut 9.4 X10 3/uL High 2.0-7.7 [facility] Comment on above: Performed By: #### L 501.2450, L500.4050, L100.0100 ####[facility] [address] [place], [address] Basophils/100 WBC (Bld) 0.7 % Normal 0-1 [facility] Comment on above: Performed By: #### L 501.2450, L500.4050, L100.0100 ####[facility] [address] [place], [address] Eosinophils/100 WBC (Bld) 1.6 % Normal 0-5 [facility] Comment on above: Performed By: #### L 501.2450, L500.4050, L100.0100 ####[facility] [address] [place], [address] Erythrocyte distribution width (RBC) [Ratio] 12.7 % Normal 11.6-14.6 [facility] Comment on above: Performed By: #### L 501.2450, L500.4050, L100.0100 ####[facility] [address] [place], [address] Hematocrit (Bld) [Volume fraction] 38.0 % Low 40-54 [facility] Comment on above: Performed By: #### L 501.2450, L500.4050, L100.0100 ####[facility] [address] [place], [address] Hemoglobin (Bld) [Mass/Vol] 13.1 g/dL Normal 13.0-16.5 [facility] Comment on above: Performed By: #### L 501.2450, L500.4050, L100.0100 ####[facility] [address] [place], [address] IG% 0.500 Normal 0.0-0.9 [facility] Comment on above: Result Comment: IG% - Immature Granulocytes (promyelocytes, myelocytes and metamyelocytes) > 1% indicates that a LEFT SHIFT is Present. Performed By: #### L 501.2450, L500.4050, L100.0100 ####[facility] [address] [place], [address] Lymphocytes/100 WBC (Bld) 22.2 % Normal 19-41 [facility] Comment on above: Performed By: #### L 501.2450, L500.4050, L100.0100 ####[facility] [address] [place], [address] MCH (RBC) [Entitic mass] 28.7 pg Normal 27.0-32.0 [facility] Comment on above: Performed By: #### L 501.2450, L500.4050, L100.0100 ####[facility] [address] [place], [address] MCHC (RBC) [Mass/Vol] 34.5 g/dL Normal 32-36 [facility] Comment on above: Performed By: #### L 501.2450, L500.4050, L100.0100 ####[facility] [address] [place], [address] MCV (RBC) [Entitic vol] 83.3 fL Normal 80-94 [facility] Comment on above: Performed By: #### L 501.2450, L500.4050, L100.0100 ####[facility] [address] [place], [address] Monocytes/100 WBC (Bld) 6.0 % Normal 0-10 [facility] Comment on above: Performed By: #### L 501.2450, L500.4050, L100.0100 ####[facility] [address] [place], [address] Neutrophils/100 WBC (Bld) 69.0 % Normal 47-70 [facility] Comment on above: Performed By: #### L 501.2450, L500.4050, L100.0100 ####[facility] [address] [place], [address] Nucleated RBC (Bld) [#/Vol] 0 10*3/uL Normal 0-5 [facility] Comment on above: Performed By: #### L 501.2450, L500.4050, L100.0100 ####[facility] [address] [place], [address] Platelet mean volume (Bld) [Entitic vol] 9.6 fL Normal 6.2-12.0 [facility] Comment on above: Performed By: #### L 501.2450, L500.4050, L100.0100 ####[facility] [address] [place], [address] Platelets (Bld) [#/Vol] 263 10*3/uL Normal 150-450 [facility] Comment on above: Performed By: #### L 501.2450, L500.4050, L100.0100 ####[facility] [address] [place], [address] RBC (Bld) [#/Vol] 4.56 10*6/uL Low 4.6-6.2 [facility] Comment on above: Performed By: #### L 501.2450, L500.4050, L100.0100 ####[facility] [address] [place], [address] RDW SD 38.5 fl Normal 35.1-43.9 [facility] [facility] Comment on above: Performed By: #### L 501.2450, L500.4050, L100.0100 ####[facility] [address] [place], [address] WBC (Bld) [#/Vol] 13.6 10*3/uL High 4.4-11.0 [facility] Comment on above: Performed By: #### L 501.2450, L500.4050, L100.0100 ####[facility] [address] [place], [address] Carbon dioxide, total [Moles /volume] in Central venous bloodOrdered By: Aidan Hickey on 11-01-2024 CO2 [Moles/Vol] 22.1 mmol/L 21.0-32.0 [facility] Chest 1 View (Portable)on Chest 1 View (Portable) [facility] Imaging Services [address] [place] [address] Chest 1 View (Portable) MR#: [id number] Acct: [id number] Name: MATTY WHITLOCK Rep #: [id number] : 1990 M 34 From: Jv Lopez PCP: Dr. Laine Dye MD Status: REG ER Study: Chest 1 View (Portable) Date of Exam: 11/01/24 Exam# [id number] Ordering Dr: Aidan Hickey DO PROCEDURE: CHEST [...] space, indicative coracoclavicular ligament disruption. Reading Location: [address] CC: Dr. Aidan Hickey DO; Dr. Laine Dye MD Technical Support Engineer: Signed Normal [facility] Chloride assayOrdered By: Maikol Hickey on 11-01-2024 Chloride [Moles/Vol] 100 mmol/L 98-108 [facility] Comprehensive Metabolic Prof ilon 11-01-2024 Albumin [Mass/Vol] 4.3 g/dL Normal 3.5-5.0 [facility] Comment on above: Performed By: #### L 501.5740, L500.4050, L100.0100 ####[facility] [address] [place], [address] Albumin/Globulin [Mass ratio] 1.9 {ratio} Normal 0.9-2.4 [facility] Comment on above: Performed By: #### L 501.2450, L500.4050, L100.0100 ####[facility] [address] [place], [address] ALK PHOS 82 U/L Normal 40-129 [facility] Comment on above: Performed By: #### L 501.2450, L500.4050, L100.0100 ####[facility] [address] [place], [address] ALT [Catalytic activity/Vol] 24 U/L Normal <=46 [facility] Comment on above: Performed By: #### L 501.2450, L500.4050, L100.0100 ####[facility] [address] [place], [address] AST [Catalytic activity/Vol] 20 U/L Normal <=37 [facility] Comment on above: Performed By: #### L 501.2450, L500.4050, L100.0100 ####[facility] [address] [place], [address] Bilirubin [Mass/Vol] 0.20 mg/dL Normal 0.00-1.30 [facility] Comment on above: Performed By: #### L 501.2450, L500.4050, L100.0100 ####[facility] [address] [place], [address] BUN/CRE 7.1 RATIO Low 10-20 [facility] Comment on above: Performed By: #### L 501.2450, L500.4050, L100.0100 ####[facility] [address] [place], [address] Calcium [Mass/Vol] 9.0 mg/dL Normal 7.6-11.0 [facility] Comment on above: Performed By: #### L 501.2450, L500.4050, L100.0100 ####[facility] [address] [place], [address] Chloride [Moles/Vol] 93 mmol/L Low 98-108 [facility] Comment on above: Performed By: #### L 501.2450, L500.4050, L100.0100 ####[facility] [address] [place], [address] CO2 [Moles/Vol] 22.1 mmol/L Normal 21.0-32.0 [facility] Comment on above: Performed By: #### L 501.2450, L500.4050, L100.0100 ####[facility] [address] [place], [address] Creatinine [Mass/Vol] 0.77 mg/dL Normal 0.70-1.20 [facility] Comment on above: Performed By: #### L 501.2450, L500.4050, L100.0100 ####[facility] [address] [place], [address] ECRCL 143.71 ml/min Normal 50-250 [facility] Comment on above: Performed By: #### L 501.2450, L500.4050, L100.0100 ####[facility] [address] [place], [address] GAP 12 Normal 5-15 [facility] Comment on above: Performed By: #### L 501.2450, L500.4050, L100.0100 ####[facility] [address] [place], [address] GFR/1.73 sq M.predicted among non-blacks MDRD (S/P/Bld) [Vol rate/Area] 121 mL/min/{1.73_m2} Normal >60 [facility] Comment on above: Result Comment: mL/m in/1.73m2 CKD-EPI Creatinine Equation (2020) Performed By: #### L 501.2450, L500.4050, L100.0100 ####[facility] [address] [place], [address] Globulin (S) [Mass/Vol] 2.2 g/dL Normal 2.2-4.2 [facility] Comment on above: Performed By: #### L 501.2450, L500.4050, L100.0100 ####[facility] [address] [place], [address] Glucose [Mass/Vol] 94 mg/dL Normal 70-99 [facility] Comment on above: Performed By: #### L 501.2450, L500.4050, L100.0100 ####[facility] [address] [place], [address] Potassium [Moles/Vol] 3.9 mmol/L Normal 3.3-5.1 [facility] Comment on above: Performed By: #### L 501.2450, L500.4050, L100.0100 ####[facility] [address] [place], [address] Sodium [Moles/Vol] 127 mmol/L Low 133-145 [facility] Comment on above: Performed By: #### L 501.2450, L500.4050, L100.0100 ####[facility] [address] [place], [address] T PROT 6.5 g/dL Normal 5.9-8.4 [facility] Comment on above: Performed By: #### L 501.2450, L500.4050, L100.0100 ####[facility] [address] [place], [address] Urea nitrogen [Mass/Vol] 5 mg/dL Normal 4-19 [facility] Comment on above: Performed By: #### L 501.2450, L500.4050, L100.0100 ####[facility] [address] [place], [address] Emergency Department Summary on 11-01-2024 Emergency Department Summary [facility] Medical Records Department [address] [place] [address] Emergency Department Summary 11/01/24 MR#: [id number] Acct: [id number] Name: MATTY WHITLOCK Rep #: [id number] : 1990 34 From: Aidan Hickey DO [...] intact, sensation intact Psych: Cooperative, anxious [facility] Medical History Dietary restriction Esophageal tear Smoker [...] Gastroparesis. Nonbleeding (more content not included)... Normal [facility] Eosinophil percentageOrdered By: Aidan Hickey on 11-01-2024 Eosinophils/100 WBC (Bld) 1.6 % 0-5 [facility] Erythrocyte distribution wid th ratioOrdered By: Aidan Hickey on 11-01-2024 Erythrocyte distribution width (RBC) [Ratio] 12.7 % 11.6-14.6 [facility] Erythrocyte distribution wid th standard deviationOrdered By: Aidan Vega on 11-01-2024 Erythrocyte distribution width (RBC) [Ratio] 38.5 fl 35.1-43.9 [facility] Glomerular filtration rate ( GFR) estimation/1.73 sq m using serum, plasma, or whole bOrdered By: Aidan Hickey on 11-01-2024 GFR/1.73 sq M.predicted among non-blacks MDRD (S/P/Bld) [Vol rate/Area] 126 mL/min/{1.73_m2} >60 [facility] Comment on above: mL/min/1.73m2 CKD-EP I Creatinine Equation (2020) Hematocrit Auto (Bld) [Volum e fraction]Ordered By: Aidan Hickey on 11-01-2024 Hematocrit (Bld) [Volume fraction] 38.0 % Low 40-54 [facility] Hemoglobin measurementOrdere d By: Aidan Hickey on 11-01-2024 Hemoglobin (Bld) [Mass/Vol] 13.1 g/dL 13.0-16.5 [facility] Immature granulocytes/100 WB C Auto (Bld)Ordered By: Aidanletty Hickey on 11-01-2024 Immature granulocytes/100 WBC (Bld) 0.500 % 0.0-0.9 [facility] Comment on above: IG% - Immature Granu locytes (promyelocytes, myelocytes and metamyelocytes) > 1% indicates that a LEFT SHIFT is Present. Laboratory - Chemistry and C hemistry - challengeOrdered By: Aidanletty Hickey on 11-01-2024 AST [Catalytic activity/Vol] 20 U/L <38 [facility] Lipaseon 11-01-2024 Lipase [Catalytic activity/Vol] 46 U/L Normal 13-75 [facility] Comment on above: Result Comment: Ira morales note: LIPASE revised reference range effective 22. New Lipase methodology. Expected to produce lower values than the previous assay method. NEW Reference Range: 13 - 75 U/L Performed By: #### L 501.2450, L500.4050, L100.0100 ####[facility] [address] [facility] [place], [place], [id number] Lipase measurementOrdered By : Aidanletty Hickey on 11-01-2024 Lipase [Catalytic activity/Vol] 46 U/L 13-75 [facility] Comment on above: Please note:LIPASE r evised reference range effective 22. New Lipase methodology. Expected to produce lower values than the previous assay method. NEW Reference Range: 13 - 75 U/L MCV (mean corpuscular volume ) determinationOrdered By: Aidan Hickey on 11-01-2024 MCV (RBC) [Entitic vol] 83.3 fL 80-94 [facility] Mean corpuscular hemoglobin (MCH) determinationOrdered By: Aidan Hickey on 11-01-2024 MCH (RBC) [Entitic mass] 28.7 pg 27.0-32.0 [facility] Mean corpuscular hemoglobin concentration (MCHC) determinationOrdered By: Aidan Hickey on 11-01-2024 MCHC (RBC) [Mass/Vol] 34.5 g/dL 32-36 [facility] Mean platelet volume determi nationOrdered By: Aidan Hickey on 11-01-2024 Platelet mean volume (Bld) [Entitic vol] 9.6 fL 6.2-12.0 [facility] Monocyte percentageOrdered B y: Aidan Hickey on 11-01-2024 Monocytes/100 WBC (Bld) 6.0 % 0-10 [facility] Neutrophil percentageOrdered By: Aidan Edelmira on 11-01-2024 Neutrophils/100 WBC (Bld) 69.0 % 47-70 [facility] Nucleated red blood cell per centageOrdered By: Aidan Hickey on 11-01-2024 Nucleated RBC/100 WBC (Bld) [Ratio] 0 % 0-5 [facility] Platelet countOrdered By: Maikol Hickey on 11-01-2024 Platelets (Bld) [#/Vol] 263 10*3/uL 150-450 [facility] Potassium measurement (mass/ volume)Ordered By: Aidan Hickey on 11-01-2024 Potassium (Unsp spec) [Mass/Vol] 3.6 mmol/L 3.3-5.1 [facility] RBC Auto (Bld) [#/Vol]Ordere d By: Aidan Hickey on 11-01-2024 RBC (Bld) [#/Vol] 4.56 10*6/uL Low 4.6-6.2 [facility] Serum creatinine measurement (mass/volume)Ordered By: Aidan Hickey on 11-01-2024 Creatinine [Mass/Vol] 0.68 mg/dL Low 0.70-1.20 [facility] Serum globulin measurementOr dered By: Aidan Hickey on 11-01-2024 Globulin (S) [Mass/Vol] 2.2 g/dL 2.2-4.2 [facility] Serum glucose measurement (m ass/volume)Ordered By: Aidan Hickey on 11-01-2024 Glucose [Mass/Vol] 96 mg/dL 70-99 [facility] Serum or plasma alanine montez otransferase (ALT) measurementOrdered By: Aidan Hickey on 11-01-2024 ALT [Catalytic activity/Vol] 24 U/L <47 [facility] Serum or plasma albumin simone urement (mass/volume)Ordered By: Aidan Vega on 11-01-2024 Albumin [Mass/Vol] 4.3 g/dL 3.5-5.0 [facility] Serum or plasma albumin/glob ulin mass ratioOrdered By: Aidan Hickey on 11-01-2024 Albumin/Globulin [Mass ratio] 1.9 {ratio} 0.9-2.4 [facility] Serum or plasma alkaline mellissa sphatase measurementOrdered By: Aidan Hickey on 11-01-2024 ALP [Catalytic activity/Vol] 82 U/L 40-129 [facility] Serum or plasma calcium simone urement (mass/volume)Ordered By: Aidan Vega on 11-01-2024 Calcium [Mass/Vol] 8.5 mg/dL 7.6-11.0 [facility] Serum or plasma urea nitroge n measurement (mass/volume)Ordered By: Aidan Hickey on 11-01-2024 Urea nitrogen [Mass/Vol] 5 mg/dL 4-19 [facility] Sodium levelOrdered By: Mane Hickey on 11-01-2024 Sodium [Moles/Vol] 133 mmol/L 133-145 [facility] Total proteinOrdered By: Oj Marlowt on 11-01-2024 Protein [Mass/Vol] 6.5 g/dL 5.9-8.4 [facility] White blood cell (WBC) count Ordered By: Aidan Marlowt on 11-01-2024 WBC (Bld) [#/Vol] 13.6 10*3/uL High 4.4-11.0 [facility] EGD Reporton 10-21-2024 EGD Report [facility] Medical Records Department [address] [place] [address] EGD Report MR#: [id number] Acct: [id number] Name: MATTY WHITLOCK Rep #: [id number] : 1990 34 From: Vishnu Herndon DO PCP: Dr. Laine Dye MD Status:[facility] Patient Name: Matty Whitlock Procedure Date: [...] 1 month. Procedure Code(s): --- Professional --- 37186, Small intestinal endoscopy, enteroscopy beyond second portion of duodenum, not including ileum; with biopsy, single or multiple CPT copyright 2021 [employer]. All rights reserved. The codes documented in this rep (more content not included)... Normal [facility] Immunohistochemical Stainson 10-21-2024 Immunohistochemical Stains Patient Age/Sex Location Account Attending Physician MATTY WHITLOCK 34/M EN [id number] Vishnu Herndon DO Specimen: [id number] Received: 10/21/24 Status: DIAN Weinstein Num: [id number] Spec Type: EGD BIOPSY Subm Dr: Vishnu [...] totally submitted in one cassette. Maddy 10/21/2024 CPT:43035o5,64735 Patient Age/Sex Location Account Attending Physician MATTY WHITLOCK/M EN [id number] Vishnu Herndon DO ADDENDUM Addendum 1 Entered: 11/04/24 This addendum is to report the IHC for H pylori on part B: B. IHC negative for H pylori organisms. All matched controls reacted appropriately. These tests were developed and their performance characteristics determined by [facility] Laboratory. They may not have been cleared or approved by the U.S. Food and Drug Administration. The FDA has determined that such clearance or approval is not necessary.??? The above immunohistochemical/dualIS H???markers are reviewed by the Pathologist. Addendum Signed (signature on file) Dr. Argentina Phelps MD 11/04/24 3546 Patient Age/Sex Location Account Attending Physician MATTY WHITLOCK 34/M EN [id number] Vishnu Herndon DO Signed (signature on file) Dr. Argentina Phelps MD 11/04/24 1023 Normal [facility] Comment on above: Performed By: #### RADHA MESSER ####[facility] [address] [place], [place], [id number] MR/POSTOP.ANEon 10-21-2024 MR/POSTOP.ANE [facility] Medical Records Department [address] [place] [address] Anesthesia Postop Eval I 10/21/24 1236 MR#: [id number] Acct: [id number] Name: MATTY WHITLOCK Rep #: [id number] : 1990 34 From: Myla Upton CRNA PCP: Dr. Laine Dye MD Status:REG SD Y Race: C Location: [place] [address] Anesthesia: Postop Eval I Current Vital Signs Temperature: 97.6 F Pulse Rate: 70 Blood Pressure: 125/78 Respiratory Rate: 20 Pulse Ox: 95 Assessment Airway patent: Yes Spontaneous unlabored respirations: Yes nausea: No Vomiting: No Anesthesia Complication: No Fluid Hydration Crystalloid volume administer (ml): 500 Total IV fluid infused: 500 Progress Note Anesthesia document: Postop Eval 1 completed: Yes 10/21/24 1236 Date Myla Upton LINUX ADMINISTRATOR Cosigner Signature: Date CC: Signed Normal [facility] MR/JHMQGRHE4nh 10-21-2024 MR/POSTOPAN2 [facility] Medical Records Department [address] [place] [address] Anesthesia Postop Eval II 10/21/24 1311 MR#: [id number] Acct: [id number] Name: MATTY WHITLOCK Rep #: [id number] : 1990 34 From: Myla Upton CRNA PCP: Dr. Laine Dye MD Status:REG SD Y Race: C Location: [place] [address] Anesthesia Postop Eval I Sum Postop Eval Completion status Anesthesia document: Postop Eval 1 completed: Yes Anesthesia Postop Eval I Summary Anesthesia Postop Eval I Summary: Anesthesia Postop Eval I: Assessment Summary Airway patent Yes 10/21/24 12:36 LINUX ADMINISTRATOR.CSIR Spontaneous unlabored Yes 10/21/24 12:36 LINUX ADMINISTRATOR.CSIR respirations Mental status nausea No 10/21/24 12:36 LINUX ADMINISTRATOR.CSIR Vomiting No 10/21/24 12:36 LINUX ADMINISTRATOR.CSIR Anesthesia Postop Eval I: Fluid Summary Crystalloid volume administer 500 10/21/24 12:36 LINUX ADMINISTRATOR.CSIR (ml) Colloids volume administered ( ml) Blood Product volume administered (ml) Total IV fluid infused 500 10/21/24 12:36 LINUX ADMINISTRATOR.CSIR Anesthesia Postop Eval I: Summary Notes Anesthesia Complication No 10/21/24 12:36 LINUX ADMINISTRATOR.CSIR Anesthesia Complication Comment: Post-operative progress note Anesthesia: Postop Eval II Evaluation Mental status: Awake Pain Level: 0 nausea: No Vomiting: No 10/21/24 1311 Date Myla Upton LINUX ADMINISTRATOR Cosigner Signature: Date CC: Signed Normal [facility] Surgery Specimen Level Alyson 10-21-2024 Surgery Specimen Level IV Patient Age/Sex Location Account Attending Physician MATTY WHITLOCK 34/M EN [id number] Vishnu Herndon DO Specimen: [id number] Received: 10/21/24 Status: DIAN Weinstein Num: [id number] Spec Type: EGD BIOPSY Subm Dr: Vishnu [...] totally submitted in one cassette. Maddy 10/21/2024 CPT:18744a5,72281 Patient Age/Sex Location Account Attending Physician MATTY WHITLOCK 34/M EN [id number] Vishnu Herndon DO Signed (signature on file) Dr. Argentina Phelps MD 11/04/24 1023 Normal [facility] Comment on above: Performed By: #### P RADHA GUTIERREZ ####[facility] [address] [place], [place], [address] MR/PAT.ARNOLDirina 10-20-2024 MR/PAT.ARNOLD [facility] Medical Records Department [address] [place] [address] PAT - Anesthesia 10/20/24 1422 MR#: [id number] Acct: [id number] Name: MATTY WHITLOCK Rep #: [id number] : 1990 34 From: Corby Rizo MD PCP: Dr. Laine Dye MD Status:PRE [facility] Y Race: C Location: EN Pre-Assessment Diagnosis/Proposed Procedure Planned Operative Procedure(s): EGD Anesthesia History Anesthesia History - cook chili: Anesthesia History - cook chili Hx Hospitalization No 10/20/24 09:55 Any Problems [...] take am of surgery PONV PONV - cook chili: PONV - cook chili Female No 10/20/24 09:55 HX of Motion [...] 10/19/24 12:17 Respiratory Assessment Respiratory Assessment - cook chili: Respiratory Tract Infection Hx - cook chili Hx Respiratory Tract Infection Yes: CURRENT CHEST COLD 10/20/24 09:55 STOP Sleep Apnea STOP Sleep Apnea - cook chili: STOP Sleep Apnea - cook chili Hx Hypertension No 10/20/24 09:55 Hx Sleep [...] Tobacco Use History Tobacco Use History - cook chili: Tobacco Use History - cook chili Tobacco Use Smoking Status Current every day smoker 10/20/24 09:55 Hx Tobacco Use Yes 10/20/24 09:55 Years Smoking Packs Smoked per Day 0.5 10/20/24 09:55 Smoking Cessation Date was within the last 15 years Hx Smoking Cessation Date Hx Smoking Cessation Counseling Hematologic Medial History Hematologic Hx - cook chili: Hematologic Medical Hx - terminal carman Hx of Blood Transfusion No 10/20/24 09:55 [...] confused, unrespo /Reproduction History /Reproductive History - cook chili: /Reproductive Hx- cook chili Hx Now No 10/20/24 09:55 Gestational Age (in weeks): EDC: Hx Hx Para Hx Section SAB No 10/20/24 09:55 PFS Medical History (Updated 10/20/24 @ 10:04 by [...] tabs albu (more content not included)... Normal [facility] Chest PA and Lateralon 10-19 Chest PA and Lateral [facility] Imaging Services [address] [place], [place] [address] Chest PA and Lateral MR#: [id number] Acct: [id number] Name: MATTY WHITLOCK Rep #: [id number] : 1990 M 34 From: Sean simmons MD PCP: Dr. Laine Dye MD Status: REG ER Study: Chest PA and Lateral Date of Exam: 10/19/24 Exam# [id number] Ordering Dr: Lester Aguilar DO PROCEDURE: CHEST [...] Laine Dye MD; Dr. Lester Aguilar DO Technical Support Engineer: Signed Normal [facility] Emergency Department Summary on 10-19-2024 Emergency Department Summary [facility] Medical Records Department [address] [place] [address] Emergency Department Summary 10/19/24 MR#: [id number] Acct: [id number] Name: MATTY WHITLOCK Rep #: [id number] : 1990 34 From: Lester Aguilar DO [...] contacts denies any history of blood clots. [facility] Medical History Asthma Depression Anxiety Wears glasses [...] following commands knew that he was at [facility] years 2024 Skin: Warm, dry, intact no [...] a 34-year-old male (more content not included)... [facility] 09-09-2024 36 Pt scheduled with Be [facility]ky 10/12/24 at 3:[address] 09-05-2024 36 Called pt and no voicemail [facility] 36 Rx sent for Nicorett e gum per request. Nicotine patches removed from medication list. If I am seeing correctly he has not been seen in the office since October 2022. Needs to schedule a physical and fasting blood work. [facility] 36 Name of caller: Matty Contact phone number: [phone] Relationship to Patient: patient Provider: Dr. Dye Practice: [facility] Chief Complaint/Reason for Call: Pt requesting a New Rx for Nicotine gum. He feels the patches doesn't help. He is requesting the higher dosage on the gum. Please advise. Best time of day caller can be reached: Any Patient advised that office/PCP has 24-48 business hours to return their call: Yes [facility] Calprotectin, Stoolon [address] 43 ug/g Normal 0-120 [facility] Comment on above: Result Comment: Conc entration Interpretation Follow-Up < 5 - 50 ug/g Normal None >50 -120 ug/g Borderline Re-evaluate in 4-6 weeks >120 ug/g Abnormal Repeat as clinically indicated Performed at: - [facility] [id number] Client Services Assistant: Azeem Govea MD, Phone: [phone] Performed By: #### M 100.637, L7400.3300, L7000.0700, M100.6796, M100.0605 #### [facility] [address] [place], [address] Giardia Lamblia, Stool EIAon 08-24-2024 Giardia Stool Negative Normal Negative [facility] Comment on above: Result Comment: Perf ormed at: - [facility] [address] [id number] Client Services Assistant: Mayur Mcfarland PhD, Phone: [phone] Performed By: #### M 100.637, L7400.3300, L7000.0700, M100.6796, M100.0605 #### [facility] [address] [place], [address] ENTERIC PATHOGEN PANEL STOOL on [...] VIBRIO Not Detected Yersinia Not Detected Normal [facility] Comment on above: Performed By: #### M 100.637, L7400.3300, L7000.0700, M100.6796, M100.0605 #### [facility] [facility] [address] [place], [address] CDIFF (PCR)on 08-22-2024 CDIFF Pending [phone] NAP1-B1 Presumptive Negative *for epidemiolologic???use C. Diff PCR Negative- No toxigenic C. Diff Detected Normal [facility] Comment on above: Performed By: #### M 100.637, L7400.3300, L7000.0700, M100.6796, M100.0605 #### [facility] [address] [place], [place], [id number] Calprotectin stoolOrdered By : Yoselyn Ceja on 08-22-2024 Calprotectin stool 43 ug/g 0-120 [facility] Comment on above: Concentration Interp retation Follow-Up< 5 - 50 ug/g Normal None>50 -120 ug/g Borderline Re-evaluate in 4-6 weeks >120 ug/g Abnormal Repeat as clinically indicatedPerformed at: - [facility] [id number] Director: Azeem Govea MD, Phone: [phone] Clostridium difficile detect ion by polymerase chain reactionOrdered By: Yoselyn Ceja on 08-22-2024 C. difficile DNA DINAH+probe Ql (Unsp spec) [facility] Giardia lamblia ag stool EIA Ordered By: Yoselyn Ceja on 08-22-2024 G. lamblia Ag IA Ql (Stl) Negative Negative [facility] Comment on above: Performed at: [address] [id number] Director: Mayur Mcfarland PhD, Phone: [phone] Stool Lactoferrin/WBCon 07-27 WBCST Normal Reference Ran ge = Negative Fecal WBC Lactoferrin Negative: No Fecal WBC Lactoferrin present Normal [facility] Comment on above: Performed By: #### M 100.637, L7400.3300, L7000.0700, M100.6796, M100.0605 #### [facility] [address] [place], [place], [address] Stool lactoferrin detection by immunoassayOrdered By: Yoselyn Ceja on 08-22-2024 Lactoferrin IA Ql (Stl) [facility] Gastroenterology Visit Repor ton 08-18-2024 Gastroenterology Visit Report [facility] [address] [place] [address] OFFICE VISIT Date of Service: 08/18/24 MR#: [id number] Acct: [id number] Name: MATTY WHITLOCK Rep #: [id number] : 1990 Provider: NORMA Rahman Age/Sex: 34/M Location: [facility] [place] Status: Signed Intake Vital Signs 07/11/24 10:53 [...] finds it to be helping a some. [facility] Medical History Asthma Depression Anxiety Wears glasses [...] - Erythematous duodenopathy. Biopsied. GES; not completed [facility] ED 07.21.24 with abd pain and anxiety. [...] all related structures (more content not included)... Normal [facility] 12 Lead EKGon 08-12-2024 12 Lead EKG [facility] [address] [place] [address] 12 Lead EKG 08/12/24 1537 MR#: [id number] Acct: [id number] Name: MATTY WHITLOCK Rep #: [id number] : 1990 34 From: Peng Olivas MD [...] in aVL ) Borderline ECG Confirmed by PENG OLIVAS MD ([id number]), field map editor MARYNAN PARKER ([id number]) on 08/15/2024 8:44:02 AM Referred By: MANJEET Confirmed By: PENG OLIVAS MD 08/15/24 0844 Date Peng Olivas MD CC: Dr. Aidan Harrison-DO Gary; Dr. Laine Dye MD; ED PHYSICIAN PROVIDER Signed [facility] 36on 08-12-2024 36 Prescription sent fo r pantoprazole 20 mg twice daily. Normal [facility] 36 Name of caller: Jay Contact phone number: [phone] Relationship to Patient: patient Provider: Hardik Practice: [...] hours to return their call: No Normal [facility] Absolute lymphocyte countOrd ered By: Aidan Hickey on 08-12-2024 Lymphocytes Auto (Unsp spec) [#/Vol] 2.40 10*3/uL 0.83-4.51 [facility] Absolute neutrophil countOrd ered By: Aidanletty Hickey on 08-12-2024 Neutrophils (Bld) [#/Vol] 7.1 10*3/uL 2.0-7.7 [facility] Anion gap in Serum or Plasma Ordered By: Aidanletty Hickey on 08-12-2024 Anion gap [Moles/Vol] 12 mmol/L 5-15 [facility] Automated lymphocyte count a s percentage of total leukocytesOrdered By: Aidan Hickey on 08-12-2024 Lymphocytes/100 WBC Auto (Unsp spec) 22.6 % 19-41 [facility] BUN/creatinine ratioOrdered By: Aidanletty Hickey on 08-12-2024 Urea nitrogen/Creatinine [Mass ratio] 5.8 mg/mg Low 10-20 [facility] Basophil percentageOrdered B y: Aidan Hickey on 08-12-2024 Basophils/100 WBC (Bld) 0.5 % 0-1 [facility] Bilirubin, totalOrdered By: Aidan Hickey on 08-12-2024 Bilirubin [Mass/Vol] 0.34 mg/dL 0.00-1.30 [facility] CBC W/Diff, Automatedon 07-26 Absolute Lymph 2.40 X10 3/uL Normal 0.83-4.51 [facility] Comment on above: Performed By: #### L 501.2450, L500.4050, L100.0100 ####[facility] [address] [place], [address] Absolute Neut 7.1 X10 3/uL Normal 2.0-7.7 [facility] Comment on above: Performed By: #### L 501.2450, L500.4050, L100.0100 ####[facility] [address] [place], [address] Basophils/100 WBC (Bld) 0.5 % Normal 0-1 [facility] Comment on above: Performed By: #### L 501.2450, L500.4050, L100.0100 ####[facility] [address] [place], [address] Eosinophils/100 WBC (Bld) 0.9 % Normal 0-5 [facility] Comment on above: Performed By: #### L 501.2450, L500.4050, L100.0100 ####[facility] [address] [place], [address] Erythrocyte distribution width (RBC) [Ratio] 12.9 % Normal 11.6-14.6 [facility] Comment on above: Performed By: #### L 501.2450, L500.4050, L100.0100 ####[facility] [address] [place], [address] Hematocrit (Bld) [Volume fraction] 39.2 % Low 40-54 [facility] Comment on above: Performed By: #### L 501.2450, L500.4050, L100.0100 ####[facility] [address] [place], [address] Hemoglobin (Bld) [Mass/Vol] 13.8 g/dL Normal 13.0-16.5 [facility] Comment on above: Performed By: #### L 501.2450, L500.4050, L100.0100 ####[facility] [address] [place], [address] IG% 0.600 Normal 0.0-0.9 [facility] Comment on above: Result Comment: IG% - Immature Granulocytes (promyelocytes, myelocytes and metamyelocytes) > 1% indicates that a LEFT SHIFT is Present. Performed By: #### L 501.2450, L500.4050, L100.0100 ####[facility] [address] [place], [address] Lymphocytes/100 WBC (Bld) 22.6 % Normal 19-41 [facility] Comment on above: Performed By: #### L 501.2450, L500.4050, L100.0100 ####[facility] [address] [place], [address] MCH (RBC) [Entitic mass] 28.9 pg Normal 27.0-32.0 [facility] Comment on above: Performed By: #### L 501.2450, L500.4050, L100.0100 ####[facility] [address] [place], [address] MCHC (RBC) [Mass/Vol] 35.2 g/dL Normal 32-36 [facility] Comment on above: Performed By: #### L 501.2450, L500.4050, L100.0100 ####[facility] [address] [place], [address] MCV (RBC) [Entitic vol] 82.2 fL Normal 80-94 [facility] Comment on above: Performed By: #### L 501.2450, L500.4050, L100.0100 ####[facility] [address] [place], [address] Monocytes/100 WBC (Bld) 8.3 % Normal 0-10 [facility] Comment on above: Performed By: #### L 501.2450, L500.4050, L100.0100 ####[facility] [address] [place], [address] Neutrophils/100 WBC (Bld) 67.1 % Normal 47-70 [facility] Comment on above: Performed By: #### L 501.2450, L500.4050, L100.0100 ####[facility] [address] [place], [address] Nucleated RBC (Bld) [#/Vol] 0 10*3/uL Normal 0-5 [facility] Comment on above: Performed By: #### L 501.2450, L500.4050, L100.0100 ####[facility] [address] [place], [address] Platelet mean volume (Bld) [Entitic vol] 10.1 fL Normal 6.2-12.0 [facility] Comment on above: Performed By: #### L 501.2450, L500.4050, L100.0100 ####[facility] [address] [place], [address] Platelets (Bld) [#/Vol] 249 10*3/uL Normal 150-450 [facility] Comment on above: Performed By: #### L 501.2450, L500.4050, L100.0100 ####[facility] [address] [place], [address] RBC (Bld) [#/Vol] 4.77 10*6/uL Normal 4.6-6.2 [facility] Comment on above: Performed By: #### L 501.2450, L500.4050, L100.0100 ####[facility] [address] [place], [address] RDW SD 38.6 fl Normal 35.1-43.9 [facility] Comment on above: Performed By: #### L 501.2450, L500.4050, L100.0100 ####[facility] [address] [place], [address] WBC (Bld) [#/Vol] 10.6 10*3/uL Normal 4.4-11.0 [facility] Comment on above: Performed By: #### L 501.2450, L500.4050, L100.0100 ####[facility] [address] [place] [place], [address] Carbon dioxide, total [Moles /volume] in Central venous bloodOrdered By: Aidan Hickey on 08-12-2024 CO2 [Moles/Vol] 23.1 mmol/L 21.0-32.0 [facility] Chloride assayOrdered By: Maikol Hickey on 08-12-2024 Chloride [Moles/Vol] 98 mmol/L 98-108 [facility] Comprehensive Metabolic Prof ilon 08-12-2024 Albumin [Mass/Vol] 4.8 g/dL Normal 3.5-5.0 [facility] Comment on above: Performed By: #### L 501.2450, L500.4050, L100.0100 ####[facility] [address] [place], [address] Albumin/Globulin [Mass ratio] 2.0 {ratio} Normal 0.9-2.4 [facility] Comment on above: Performed By: #### L 501.2450, L500.4050, L100.0100 ####[facility] [address] [place], [address] ALK PHOS 64 U/L Normal 40-129 [facility] Comment on above: Performed By: #### L 501.2450, L500.4050, L100.0100 ####[facility] [address] [place], [address] ALT [Catalytic activity/Vol] 26 U/L Normal <=46 [facility] Comment on above: Performed By: #### L 501.2450, L500.4050, L100.0100 ####[facility] [address] [place], [address] AST [Catalytic activity/Vol] 24 U/L Normal <=37 [facility] Comment on above: Performed By: #### L 501.2450, L500.4050, L100.0100 ####[facility] [address] [place], [address] Bilirubin [Mass/Vol] 0.34 mg/dL Normal 0.00-1.30 [facility] Comment on above: Performed By: #### L 501.2450, L500.4050, L100.0100 ####[facility] [address] [place], [address] BUN/CRE 5.8 RATIO Low 10-20 [facility] Comment on above: Performed By: #### L 501.2450, L500.4050, L100.0100 ####[facility] [address] [place], [address] Calcium [Mass/Vol] 9.5 mg/dL Normal 7.6-11.0 [facility] Comment on above: Performed By: #### L 501.2450, L500.4050, L100.0100 ####[facility] [address] [place], [address] Chloride [Moles/Vol] 98 mmol/L Normal 98-108 [facility] Comment on above: Performed By: #### L 501.2450, L500.4050, L100.0100 ####[facility] [address] [place], [address] CO2 [Moles/Vol] 23.1 mmol/L Normal 21.0-32.0 [facility] Comment on above: Performed By: #### L 501.2450, L500.4050, L100.0100 ####[facility] [address] [place], [address] Creatinine [Mass/Vol] 0.93 mg/dL Normal 0.70-1.20 [facility] Comment on above: Performed By: #### L 501.2450, L500.4050, L100.0100 ####[facility] [address] [place], [address] ECRCL 122.09 ml/min Normal 50-250 [facility] Comment on above: Performed By: #### L 501.2450, L500.4050, L100.0100 ####[facility] [address] [place], [address] GAP 12 Normal 5-15 [facility] Comment on above: Performed By: #### L 501.2450, L500.4050, L100.0100 ####[facility] [address] [place], [address] GFR/1.73 sq M.predicted among non-blacks MDRD (S/P/Bld) [Vol rate/Area] 112 mL/min/{1.73_m2} Normal >60 [facility] Comment on above: Result Comment: mL/m in/1.73m2 CKD-EPI Creatinine Equation (2020) Performed By: #### L 501.2450, L500.4050, L100.0100 ####[facility] [address] [place], [address] Globulin (S) [Mass/Vol] 2.4 g/dL Normal 2.2-4.2 [facility] Comment on above: Performed By: #### L 501.2450, L500.4050, L100.0100 ####[facility] [address] [place], [address] Glucose [Mass/Vol] 104 mg/dL High 70-99 [facility] Comment on above: Performed By: #### L 501.2450, L500.4050, L100.0100 ####[facility] [address] [place], [address] Potassium [Moles/Vol] 3.9 mmol/L Normal 3.3-5.1 [facility] Comment on above: Performed By: #### L 501.2450, L500.4050, L100.0100 ####[facility] [address] [place], [address] Sodium [Moles/Vol] 133 mmol/L Normal 133-145 [facility] Comment on above: Performed By: #### L 501.2450, L500.4050, L100.0100 ####[facility] [address] [place], [address] T PROT 7.2 g/dL Normal 5.9-8.4 [facility] Comment on above: Performed By: #### L 501.2450, L500.4050, L100.0100 ####[facility] [address] [place], [address] Urea nitrogen [Mass/Vol] 5 mg/dL Normal 4-19 [facility] Comment on above: Performed By: #### L 501.2450, L500.4050, L100.0100 ####[facility] [address] [place], [address] Emergency Department Summary on 08-12-2024 Emergency Department Summary [facility] Medical Records Department [address] [address] Emergency Department Summary 08/12/24 MR#: [id number] Acct: [id number] Name: YOBANYCOLLEENMATTY Rep #: [id number] : 1990 34 From: Aidan Hickey DO [...] grossly intact, sensation intact Psych: Cooperative, anxious [facility] Medical History Asthma Depression Anxiety Wears glasses [...] not limited (more content not included)... Normal [facility] Eosinophil percentageOrdered By: Aidan Hickey on 08-12-2024 Eosinophils/100 WBC (Bld) 0.9 % 0-5 [facility] Erythrocyte distribution wid th (RBC) [Ratio]Ordered By: Aidan Hickey on 08-12-2024 Erythrocyte distribution width (RBC) [Entitic vol] 38.6 fL 35.1-43.9 [facility] Erythrocyte distribution wid th ratioOrdered By: Aidan Hickey on 08-12-2024 Erythrocyte distribution width (RBC) [Ratio] 12.9 % 11.6-14.6 [facility] Erythrocyte distribution wid th standard deviationOrdered By: Aidan Jose Luis Vega on 08-12-2024 Erythrocyte distribution width (RBC) [Ratio] 38.6 fl 35.1-43.9 [facility] Estimation of creatinine roddy aranceOrdered By: Aidan Hickey on 08-12-2024 Estimated Creatinine Clearance Calc 122.09 ml/min 50-250 [facility] GFR/1.73 sq M.predicted jessee g non-blacks MDRD (S/P/Bld) [Vol rate/Area]Ordered By: Adian Hickey on 08-12-2024 Estimated GFR (MDRD) Non-Af Amer 112 >60 [facility] Comment on above: mL/min/1.73m2 CKD-EP I Creatinine Equation (2020) Glomerular filtration rate ( GFR) estimation/1.73 sq m using serum, plasma, or whole bOrdered By: Aidan Hickey on 08-12-2024 GFR/1.73 sq M.predicted among non-blacks MDRD (S/P/Bld) [Vol rate/Area] 112 mL/min/{1.73_m2} >60 [facility] Comment on above: mL/min/1.73m2 CKD-EP I Creatinine Equation (2020) Hematocrit Auto (Bld) [Volum e fraction]Ordered By: Aidan Hickey on 08-12-2024 Hematocrit (Bld) [Volume fraction] 39.2 % Low 40-54 [facility] Hemoglobin measurementOrdere d By: Aidan Hickey on 08-12-2024 Hemoglobin (Bld) [Mass/Vol] 13.8 g/dL 13.0-16.5 [facility] Immature granulocytes/100 WB C Auto (Bld)Ordered By: [facility] 08-[facility] Immature granulocytes/100 WBC (Bld) 0.600 % 0.0-0.9 [facility] Comment on above: IG% - Immature Granu locytes (promyelocytes, myelocytes and metamyelocytes) > 1% indicates that a LEFT SHIFT is Present. Laboratory - Chemistry and C hemistry - challengeOrdered By: [facility] on 08-12-2024 AST [Catalytic activity/Vol] 24 U/L <38 [facility] Lipaseon 08-12-2024 Lipase [Catalytic activity/Vol] 30 U/L Normal 13-75 [facility] Comment on above: Result Comment: Ira morales note: LIPASE revised reference range effective 22. New Lipase methodology. Expected to produce lower values than the previous assay method. NEW Reference Range: 13 - 75 U/L Performed By: #### L 501.2450, L500.4050, L100.0100 ####[facility] [address] [place], [address] Lipase measurementOrdered By : [facility] on 08-12-2024 Lipase [Catalytic activity/Vol] 30 U/L 13-75 [facility] Comment on above: Please note:LIPASE r evised reference range effective 22. New Lipase methodology. Expected to produce lower values than the previous assay method. NEW Reference Range: 13 - 75 U/L Lymphocytes Auto (Unsp spec) [#/Vol]Ordered By: [facility] on 08-12-2024 Lymphocytes (Bld) [#/Vol] 2.40 10*3/uL 0.83-4.51 [facility] Lymphocytes/100 WBC Auto (Un sp spec)Ordered By: Aidan Hickey on 08-12-2024 Lymphocytes/100 WBC (Bld) 22.6 % 19-41 [facility] MCV (mean corpuscular volume ) determinationOrdered By: Aidan Hickey on 08-12-2024 MCV (RBC) [Entitic vol] 82.2 fL 80-94 [facility] Mean corpuscular hemoglobin (MCH) determinationOrdered By: Aidan Hickey on 08-12-2024 MCH (RBC) [Entitic mass] 28.9 pg 27.0-32.0 [facility] Mean corpuscular hemoglobin concentration (MCHC) determinationOrdered By: Aidan Hickey on 08-12-2024 MCHC (RBC) [Mass/Vol] 35.2 g/dL 32-36 [facility] Mean platelet volume determi nationOrdered By: Aidan Hickey on 08-12-2024 Platelet mean volume (Bld) [Entitic vol] 10.1 fL 6.2-12.0 [facility] Monocyte percentageOrdered B y: Aidan Hickey on 08-12-2024 Monocytes/100 WBC (Bld) 8.3 % 0-10 [facility] Neutrophil percentageOrdered By: Aidan Hickey on 08-12-2024 Neutrophils/100 WBC (Bld) 67.1 % 47-70 [facility] Nucleated red blood cell per centageOrdered By: Aidan Hickey on 08-12-2024 Nucleated RBC/100 WBC (Bld) [Ratio] 0 % 0-5 [facility] Platelet countOrdered By: Maikol Hickey on 08-12-2024 Platelets (Bld) [#/Vol] 249 10*3/uL 150-450 [facility] Potassium (Unsp spec) [Mass/ Vol]Ordered By: Aidan Hickey on 08-12-2024 Potassium [Moles/Vol] 3.9 mmol/L 3.3-5.1 [facility] Potassium measurement (mass/ volume)Ordered By: Aidan Hickey on 08-12-2024 Potassium (Unsp spec) [Mass/Vol] 3.9 mmol/L 3.3-5.1 [facility] RBC Auto (Bld) [#/Vol]Ordere d By: Aidan Hickey on 08-12-2024 RBC (Bld) [#/Vol] 4.77 10*6/uL 4.6-6.2 [facility] Serum creatinine measurement (mass/volume)Ordered By: Aidan Hickey on 08-12-2024 Creatinine [Mass/Vol] 0.93 mg/dL 0.70-1.20 [facility] Serum globulin measurementOr dered By: Aidan Hickey on 08-12-2024 Globulin (S) [Mass/Vol] 2.4 g/dL 2.2-4.2 [facility] Serum glucose measurement (m ass/volume)Ordered By: Aidan Hickey on 08-12-2024 Glucose [Mass/Vol] 104 mg/dL High 70-99 [facility] Serum or plasma alanine montez otransferase (ALT) measurementOrdered By: Aidan Hickey on 08-12-2024 ALT [Catalytic activity/Vol] 26 U/L <47 [facility] Serum or plasma albumin simone urement (mass/volume)Ordered By: Aidan Vega on 08-12-2024 Albumin [Mass/Vol] 4.8 g/dL 3.5-5.0 [facility] Serum or plasma albumin/glob ulin mass ratioOrdered By: Aidan Hickey on 08-12-2024 Albumin/Globulin [Mass ratio] 2.0 {ratio} 0.9-2.4 [facility] Serum or plasma alkaline mellissa sphatase measurementOrdered By: Aidan Hickey on 08-12-2024 ALP [Catalytic activity/Vol] 64 U/L 40-129 [facility] Serum or plasma calcium simone urement (mass/volume)Ordered By: Aidan Vega on 08-12-2024 Calcium [Mass/Vol] 9.5 mg/dL 7.6-11.0 [facility] Serum or plasma urea nitroge n measurement (mass/volume)Ordered By: Aidan Hickey on 08-12-2024 Urea nitrogen [Mass/Vol] 5 mg/dL 4-19 [facility] Sodium levelOrdered By: Mane Hickey on 08-12-2024 Sodium [Moles/Vol] 133 mmol/L 133-145 [facility] Total proteinOrdered By: Oj saenz Edelmira on 08-12-2024 Protein [Mass/Vol] 7.2 g/dL 5.9-8.4 [facility] White blood cell (WBC) count Ordered By: Aidan Hickey on 08-12-2024 WBC (Bld) [#/Vol] 10.6 10*3/uL 4.4-11.0 [facility] 36on 08-04-2024 36 Medication name: esomeprazole [...] prior to picking up the medication: Yes [facility] 36on 07-20-2024 36 Rx sent [facility] 36 Name of caller: Matty Contact phone number: [phone] Relationship to Patient: patient Provider: Hardik Practice: [facility] Chief Complaint/Reason for Call: In reference to 06/15/23 TE, patient is requesting the 7 mg Nicotine patches be called in to: [facility] [place] Please advise. Best time of day caller can be reached: any Patient advised that office/PCP has 24-48 business hours to return their call: No Normal [facility] Absolute lymphocyte countOrd ered By: Gricel Talley on 07-11-2024 Lymphocytes Auto (Unsp spec) [#/Vol] 1.47 10*3/uL 0.83-4.51 [facility] Absolute neutrophil countOrd ered By: Gricel Talley on 07-11-2024 Neutrophils (Bld) [#/Vol] 9.5 10*3/uL High 2.0-7.7 [facility] Anion gap in Serum or Plasma Ordered By: Gricel Talley on 07-11-2024 Anion gap [Moles/Vol] 12 mmol/L 5-15 [facility] Automated lymphocyte count a s percentage of total leukocytesOrdered By: Gricel Talley on 07-11-2024 Lymphocytes/100 WBC Auto (Unsp spec) 12.3 % Low 19-41 [facility] BUN/creatinine ratioOrdered By: Gricel Talley on 07-11-2024 Urea nitrogen/Creatinine [Mass ratio] 7.2 mg/mg Low 10-20 [facility] Basophil percentageOrdered B y: Gricel Talley on 07-11-2024 Basophils/100 WBC (Bld) 0.3 % 0-1 [facility] Bilirubin, totalOrdered By: Gricel Talley on 07-11-2024 Bilirubin [Mass/Vol] 0.24 mg/dL 0.00-1.30 [facility] CBC W/Diff, Automatedon 06-25 Absolute Lymph 1.47 X10 3/uL Normal 0.83-4.51 [facility] Comment on above: Performed By: #### L 500.4050, L501.2450, L100.0100 ####[facility] [address] [place], [address] Absolute Neut 9.5 X10 3/uL High 2.0-7.7 [facility] Comment on above: Performed By: #### L 500.4050, L501.2450, L100.0100 ####[facility] [address], [address] Basophils/100 WBC (Bld) 0.3 % Normal 0-1 [facility] Comment on above: Performed By: #### L 500.4050, L501.2450, L100.0100 ####[facility] [address] [place], [address] Eosinophils/100 WBC (Bld) 0.3 % Normal 0-5 [facility] Comment on above: Performed By: #### L 500.4050, L501.2450, L100.0100 ####[facility] [address] [place], [address] Erythrocyte distribution width (RBC) [Ratio] 13.2 % Normal 11.6-14.6 [facility] Comment on above: Performed By: #### L 500.4050, L501.2450, L100.0100 ####[facility] [address] [place], [address] Hematocrit (Bld) [Volume fraction] 41.8 % Normal 40-54 [facility] Comment on above: Performed By: #### L 500.4050, L501.2450, L100.0100 ####[facility] [address] [place], [address] Hemoglobin (Bld) [Mass/Vol] 14.1 g/dL Normal 13.0-16.5 [facility] Comment on above: Performed By: #### L 500.4050, L501.2450, L100.0100 ####[facility] [address] [place], [address] IG% 0.800 Normal 0.0-0.9 [facility] Comment on above: Result Comment: IG% - Immature Granulocytes (promyelocytes, myelocytes and metamyelocytes) > 1% indicates that a LEFT SHIFT is Present. Performed By: #### L 500.4050, L501.2450, L100.0100 ####[facility] [address] [place], [address] Lymphocytes/100 WBC (Bld) 12.3 % Low 19-41 [facility] Comment on above: Performed By: #### L 500.4050, L501.2450, L100.0100 ####[facility] [address] [place], [address] MCH (RBC) [Entitic mass] 29.0 pg Normal 27.0-32.0 [facility] Comment on above: Performed By: #### L 500.4050, L501.2450, L100.0100 ####[facility] [address] [place], [address] MCHC (RBC) [Mass/Vol] 33.7 g/dL Normal 32-36 [facility] Comment on above: Performed By: #### L 500.4050, L501.2450, L100.0100 ####[facility] [address] [place], [address] MCV (RBC) [Entitic vol] 85.8 fL Normal 80-94 [facility] Comment on above: Performed By: #### L 500.4050, L501.2450, L100.0100 ####[facility] [address], [address] Monocytes/100 WBC (Bld) 6.3 % Normal 0-10 [facility] Comment on above: Performed By: #### L 500.4050, L501.2450, L100.0100 ####[facility] [address] [place], [address] Neutrophils/100 WBC (Bld) 80.0 % High 47-70 [facility] Comment on above: Performed By: #### L 500.4050, L501.2450, L100.0100 ####[facility] [address] [place], [address] Nucleated RBC (Bld) [#/Vol] 0 10*3/uL Normal 0-5 [facility] Comment on above: Performed By: #### L 500.4050, L501.2450, L100.0100 ####[facility] [address] [place], [address] Platelet mean volume (Bld) [Entitic vol] 10.5 fL Normal 6.2-12.0 [facility] Comment on above: Performed By: #### L 500.4050, L501.2450, L100.0100 ####[facility] [address] [place], [address] Platelets (Bld) [#/Vol] 268 10*3/uL Normal 150-450 [facility] Comment on above: Performed By: #### L 500.4050, L501.2450, L100.0100 ####[facility] [address] [place], [address] RBC (Bld) [#/Vol] 4.87 10*6/uL Normal 4.6-6.2 [facility] Comment on above: Performed By: #### L 500.4050, L501.2450, L100.0100 ####[facility] [address] [place], [address] RDW SD 40.7 fl Normal 35.1-43.9 [facility] Comment on above: Performed By: #### L 500.4050, L501.2450, L100.0100 ####[facility] [address] [place], [address] WBC (Bld) [#/Vol] 11.9 10*3/uL High 4.4-11.0 [facility] Comment on above: Performed By: #### L 500.4050, L501.2450, L100.0100 ####[facility] [address] [place], [address] Carbon dioxide, total [Moles /volume] in Central venous bloodOrdered By: Gricel Talley on 07-11-2024 CO2 [Moles/Vol] 23.5 mmol/L 21.0-32.0 [facility] Chloride assayOrdered By: Aurelio Talley on 07-11-2024 Chloride [Moles/Vol] 103 mmol/L 98-108 [facility] Comprehensive Metabolic Prof ilon 07-11-2024 Albumin [Mass/Vol] 4.9 g/dL Normal 3.5-5.0 [facility] Comment on above: Performed By: #### L 500.4050, L501.2450, L100.0100 ####[facility] [address] [place], [address] Albumin/Globulin [Mass ratio] 1.9 {ratio} Normal 0.9-2.4 [facility] Comment on above: Performed By: #### L 500.4050, L501.2450, L100.0100 ####[facility] [address] [place], [address] ALK PHOS 60 U/L Normal 40-129 [facility] Comment on above: Performed By: #### L 500.4050, L501.2450, L100.0100 ####[facility] [address] [place], [address] ALT [Catalytic activity/Vol] 54 U/L High <=46 [facility] Comment on above: Performed By: #### L 500.4050, L501.2450, L100.0100 ####[facility] [address] [place], [address] AST [Catalytic activity/Vol] 33 U/L Normal <=37 [facility] Comment on above: Performed By: #### L 500.4050, L501.2450, L100.0100 ####[facility] [address] [place], [address] Bilirubin [Mass/Vol] 0.24 mg/dL Normal 0.00-1.30 [facility] Comment on above: Performed By: #### L 500.4050, L501.2450, L100.0100 ####[facility] [address] [place], [address] BUN/CRE 7.2 RATIO Low 10-20 [facility] Comment on above: Performed By: #### L 500.4050, L501.2450, L100.0100 ####[facility] [address] [place], [address] Calcium [Mass/Vol] 10.3 mg/dL Normal 7.6-11.0 [facility] Comment on above: Performed By: #### L 500.4050, L501.2450, L100.0100 ####[facility] [address] [place], [address] Chloride [Moles/Vol] 103 mmol/L Normal 98-108 [facility] Comment on above: Performed By: #### L 500.4050, L501.2450, L100.0100 ####[facility] [address] [place], [address] CO2 [Moles/Vol] 23.5 mmol/L Normal 21.0-32.0 [facility] Comment on above: Performed By: #### L 500.4050, L501.2450, L100.0100 ####[facility] [address] [place], [address] Creatinine [Mass/Vol] 0.94 mg/dL Normal 0.70-1.20 [facility] Comment on above: Performed By: #### L 500.4050, L501.2450, L100.0100 ####[facility] [address] [place], [address] ECRCL 122.94 ml/min Normal 50-250 [facility] Comment on above: Performed By: #### L 500.4050, L501.2450, L100.0100 ####[facility] [address] [place], [address] GAP 12 Normal 5-15 [facility] Comment on above: Performed By: #### L 500.4050, L501.2450, L100.0100 ####[facility] [address] [place], [address] GFR/1.73 sq M.predicted among non-blacks MDRD (S/P/Bld) [Vol rate/Area] 110 mL/min/{1.73_m2} Normal >60 [facility] Comment on above: Result Comment: mL/m in/1.73m2 CKD-EPI Creatinine Equation (2020) Performed By: #### L 500.4050, L501.2450, L100.0100 ####[facility] [address] [place], [address] Globulin (S) [Mass/Vol] 2.6 g/dL Normal 2.2-4.2 [facility] Comment on above: Performed By: #### L 500.4050, L501.2450, L100.0100 ####[facility] [address] [place], [address] Glucose [Mass/Vol] 98 mg/dL Normal 70-99 [facility] Comment on above: Performed By: #### L 500.4050, L501.2450, L100.0100 ####[facility] [address] [place], [address] Potassium [Moles/Vol] 3.9 mmol/L Normal 3.3-5.1 [facility] Comment on above: Performed By: #### L 500.4050, L501.2450, L100.0100 ####[facility] [address] [place], [address] Sodium [Moles/Vol] 139 mmol/L Normal 133-145 [facility] Comment on above: Performed By: #### L 500.4050, L501.2450, L100.0100 ####[facility] [address] [place], [address] T PROT 7.5 g/dL Normal 5.9-8.4 [facility] Comment on above: Performed By: #### L 500.4050, L501.2450, L100.0100 ####[facility] [address] [place], [address] Urea nitrogen [Mass/Vol] 7 mg/dL Normal 4-19 [facility] Comment on above: Performed By: #### L 500.4050, L501.2450, L100.0100 ####[facility] [address] [place], [address] Emergency Department Summary on 07-11-2024 Emergency Department Summary [facility] Medical Records Department [address] [address] Emergency Department Summary 07/11/24 MR#: [id number] Acct: [id number] Name: MATTY WHITLOCK Rep #: [id number] : 1990 34 From: Gricel Talley DO [...] complaints or concerns reported at this time. [facility] Medical History Asthma Depression Anxiety Wears glasses [...] exam. No (more content not included)... Normal [facility] Eosinophil percentageOrdered By: Gircel Talley on 07-11-2024 Eosinophils/100 WBC (Bld) 0.3 % 0-5 [facility] Erythrocyte distribution wid th ratioOrdered By: Gricel Talley on 07-11-2024 Erythrocyte distribution width (RBC) [Ratio] 13.2 % 11.6-14.6 [facility] Erythrocyte distribution wid th standard deviationOrdered By: Gricel Talley on 07-11-2024 Erythrocyte distribution width (RBC) [Entitic vol] 40.7 fL 35.1-43.9 [facility] Erythrocyte distribution width (RBC) [Ratio] 40.7 fl 35.1-43.9 [facility] Estimation of creatinine roddy aranceOrdered By: Gricel Talley on 07-11-2024 Estimated Creatinine Clearance Calc 122.94 ml/min 50-250 [facility] GFR/1.73 sq M.predicted jessee g non-blacks MDRD (S/P/Bld) [Vol rate/Area]Ordered By: Gricel Talley on 07-11-2024 Estimated GFR (MDRD) Non-Af Amer 110 >60 [facility] Comment on above: mL/min/1.73m2 CKD-EP I Creatinine Equation (2020) Glomerular filtration rate ( GFR) estimation/1.73 sq m using serum, plasma, or whole bOrdered By: Gricel Talley on 07-11-2024 GFR/1.73 sq M.predicted among non-blacks MDRD (S/P/Bld) [Vol rate/Area] 110 mL/min/{1.73_m2} >60 [facility] Comment on above: mL/min/1.73m2 CKD-EP I Creatinine Equation (2020) Hematocrit Auto (Bld) [Volum e fraction]Ordered By: Gricel Talley on 07-11-2024 Hematocrit (Bld) [Volume fraction] 41.8 % 40-54 [facility] Hemoglobin measurementOrdere d By: Gricel Talley on 07-11-2024 Hemoglobin (Bld) [Mass/Vol] 14.1 g/dL 13.0-16.5 [facility] Immature granulocytes/100 WB C Auto (Bld)Ordered By: Gricel Talley on 07-11-2024 Immature granulocytes/100 WBC (Bld) 0.800 % 0.0-0.9 [facility] Comment on above: IG% - Immature Granu locytes (promyelocytes, myelocytes and metamyelocytes) > 1% indicates that a LEFT SHIFT is Present. Laboratory - Chemistry and C hemistry - challengeOrdered By: Gricel Talley on 07-11-2024 AST [Catalytic activity/Vol] 33 U/L <38 [facility] Lipaseon 07-11-2024 Lipase [Catalytic activity/Vol] 27 U/L Normal 13-75 [facility] Comment on above: Result Comment: Ira morales note: LIPASE revised reference range effective 22. New Lipase methodology. Expected to produce lower values than the previous assay method. NEW Reference Range: 13 - 75 U/L Performed By: #### L 500.4050, L501.2450, L100.0100 ####[facility] [address], [address] Lipase measurementOrdered By : Gricel Talley on 07-11-2024 Lipase [Catalytic activity/Vol] 27 U/L 13-75 [facility] Comment on above: Please note:LIPASE r evised reference range effective 22. New Lipase methodology. Expected to produce lower values than the previous assay method. NEW Reference Range: 13 - 75 U/L Lower GI hemoglobin IA Ql (S tl)Ordered By: Gricel Talley on 07-11-2024 Stool Occult Blood (ADITYA) Positive Abnormal [facility] Lymphocytes Auto (Unsp spec) [#/Vol]Ordered By: Gricel Talley on 07-11-2024 Lymphocytes (Bld) [#/Vol] 1.47 10*3/uL 0.83-4.51 [facility] Lymphocytes/100 WBC Auto (Un sp spec)Ordered By: Gricel Talley on 07-11-2024 Lymphocytes/100 WBC (Bld) 12.3 % Low 19-41 [facility] MCV (mean corpuscular volume ) determinationOrdered By: Gricel Talley on 07-11-2024 MCV (RBC) [Entitic vol] 85.8 fL 80-94 [facility] Mean corpuscular hemoglobin (MCH) determinationOrdered By: Gricel Talley on 07-11-2024 MCH (RBC) [Entitic mass] 29.0 pg 27.0-32.0 [facility] Mean corpuscular hemoglobin concentration (MCHC) determinationOrdered By: Gricel Talley on 07-11-2024 MCHC (RBC) [Mass/Vol] 33.7 g/dL 32-36 [facility] Mean platelet volume determi nationOrdered By: Gricel Talley on 07-11-2024 Platelet mean volume (Bld) [Entitic vol] 10.5 fL 6.2-12.0 [facility] Monocyte percentageOrdered B y: Gricel Talley on 07-11-2024 Monocytes/100 WBC (Bld) 6.3 % 0-10 [facility] Neutrophil percentageOrdered By: Gricel Talley on 07-11-2024 Neutrophils/100 WBC (Bld) 80.0 % High 47-70 [facility] Nucleated red blood cell per centageOrdered By: Gricel Talley on 07-11-2024 Nucleated RBC/100 WBC (Bld) [Ratio] 0 % 0-5 [facility] Platelet countOrdered By: Aurelio Talley on 07-11-2024 Platelets (Bld) [#/Vol] 268 10*3/uL 150-450 [facility] Potassium (Unsp spec) [Mass/ Vol]Ordered By: Gricel Talley on 07-11-2024 Potassium [Moles/Vol] 3.9 mmol/L 3.3-5.1 [facility] Potassium measurement (mass/ volume)Ordered By: Gricel Talley on 07-11-2024 Potassium (Unsp spec) [Mass/Vol] 3.9 mmol/L 3.3-5.1 [facility] RBC Auto (Bld) [#/Vol]Ordere d By: Gricel Talley on 07-11-2024 RBC (Bld) [#/Vol] 4.87 10*6/uL 4.6-6.2 [facility] Serum creatinine measurement (mass/volume)Ordered By: Gricel Talley on 07-11-2024 Creatinine [Mass/Vol] 0.94 mg/dL 0.70-1.20 [facility] Serum globulin measurementOr dered By: Gricel Talley on 07-11-2024 Globulin (S) [Mass/Vol] 2.6 g/dL 2.2-4.2 [facility] Serum glucose measurement (m ass/volume)Ordered By: Gricel Talley on 07-11-2024 Glucose [Mass/Vol] 98 mg/dL 70-99 [facility] Serum or plasma alanine montez otransferase (ALT) measurementOrdered By: Gricel Talley on 07-11-2024 ALT [Catalytic activity/Vol] 54 U/L High <47 [facility] Serum or plasma albumin simone urement (mass/volume)Ordered By: Gricel Talley on 07-11-2024 Albumin [Mass/Vol] 4.9 g/dL 3.5-5.0 [facility] Serum or plasma albumin/glob ulin mass ratioOrdered By: Gricel Talley on 07-11-2024 Albumin/Globulin [Mass ratio] 1.9 {ratio} 0.9-2.4 [facility] Serum or plasma alkaline mellissa sphatase measurementOrdered By: Gricel Talley on 07-11-2024 ALP [Catalytic activity/Vol] 60 U/L 40-129 [facility] Serum or plasma calcium simone urement (mass/volume)Ordered By: Gricel Talley on 07-11-2024 Calcium [Mass/Vol] 10.3 mg/dL 7.6-11.0 [facility] Serum or plasma urea nitroge n measurement (mass/volume)Ordered By: Gricel Talley on 07-11-2024 Urea nitrogen [Mass/Vol] 7 mg/dL 4-19 [facility] Sodium levelOrdered By: Stas Talley on 07-11-2024 Sodium [Moles/Vol] 139 mmol/L 133-145 [facility] Stool Occult Blood iFOBon STOB Positive Normal [facility] Comment on above: Performed By: #### M 100.5834 ####[facility] [address] [place], [place], [id number] Stool gastrointestinal hemog lobin detection by immunologic methodOrdered By: Gricel Talley on 07-11-2024 Lower GI hemoglobin IA Ql (Stl) Positive Abnormal [facility] Total proteinOrdered By: Kristina Talley on 07-11-2024 Protein [Mass/Vol] 7.5 g/dL 5.9-8.4 [facility] White blood cell (WBC) count Ordered By: Gricel Talley on 07-11-2024 WBC (Bld) [#/Vol] 11.9 10*3/uL High 4.4-11.0 [facility] 36on 07-04-2024 36 Step down therapy do se sent [place] [address] No follow up on file [address] 06-15-2024 36 Spoke to patient, no questions. [address] 06-14-2024 36 Called Matty, no answ er or vm. [address] 06-13-2024 36 Prescription sent fo r nicotine replacement therapy with nicotine 21 mg patch daily. Recommend patient stepdown in 1 month to the 14 mg patch daily x 3-4 weeks, then to the 7 mg patch x 3-4 weeks, then stop. I sent in the prescription for the 21 mg. Let us know when you would like the step down doses sent. [place] [address] Name of caller: Matty Contact phone number: [phone] Relationship to Patient: patient Provider: Hardik Practice: [facility] Chief Complaint/Reason for Call: Patient wants to quit smoking. He is requesting the 21 MG Nicotine patches. Let patient know if this can be done. [facility] in [place]. Best time of day caller can be reached: any Patient advised that office/PCP has 24-48 business hours to return their call: Yes [address] 04-22-2024 36 Called patient and L M due to missed appointment. Please schedule the patient for an appointment with the same visit type if they call to reschedule. [address] 04-18-2024 36 Patient has appt nisreen mayelin for 04/19 will address at visit [place] [address] lm to pre-visit plan for appointment with dr Dye on 04/19/24 8:15. Please ask patient to arrive 15 minutes early with Photo ID, insurance card Fasting: no [address] 04-14-2024 36 Attempted to call Rasheeda mes[place], unsure if patient has an automated system for phone answering, was unable to leave message. [place] [address] Rx sent for Nexium [place] [address] S: Patient spoke wit h [facility] nurse regarding abdominal pain. B: Onset [...] be seen Protocols used: Abdominal Pain - Xosvy-LFVJI-WW [facility] CNOVon 02-05-2024 CNOV Office Visit (UCWSTR ) -- MATTY WHITLOCK ([id number]) 1990 M Date Time Provider Department 02/05/24 1:45 PM ENRIQUE GARCIA [facility] During your visit today, we recorded the following information about you: Enrique Garcia APRN.PRAVIN 02/05/2024 1:22 PM Signed Nontoxic-appearing male presents urgent care requesting medication refill. Patient states recently was released from assisted. Did not get a prescription for any [...] staff member to counseling center. Enrique Garcia APRN.LINTER DRIER OPERATOR Allergies As of Date: 02/05/2024 (No Known Allergies) Date Reviewed: 02/05/2024 Reviewed by: Enrique Garcia APRN.LINTER DRIER OPERATOR - Fully Assessed Primary Visit Diagnosis:Procedure not [...] Status:Closed by ENRIQUE GARCIA on 02/05/24 Normal [facility] Emergency Department Summary on 02-05-2024 Emergency Department Summary [facility] Records [facility] [address] [place] [address] Emergency Department Summary 02/05/24 MR#: [id number] Acct: [id number] Name: MATTY WHITLOCK Rep #: [id number] : 1990 34 From: Florentino Cardona DO [...] admitted a couple weeks ago to a [facility] [place] where he had his medication adjusted and was started on Haldol and Invega for sleep as well as Vistaril for anxiety. Patient then went to assisted from the mental health facility and just [...] had been on BuSpar in the past. [facility] Medical History Anxiety Anxiety Asthma Asthma Bipolar [...] chest katey (more content not included)... Normal [facility] Fluoroscopic guidance for salo mbar puncture (LP)Ordered By: Omkar Del Cid on 01-06-2024 Fluoroscopic guidance for lumbar puncture (LP) Negative [facility] No Panel InformationOrdered By: Omkar Del Cid on 01-06-2024 Amphetamines Screen Positive [facility] Comment on above: URINE DRUG SCREENS A RE FOR MEDICAL PURPOSES ONLY.THIS TEST PROVIDES ONLY A PRELIMINARY TEST RESULT. A MORESPECIFIC ALTERNATE CHEMICAL METHOD MUST BE USED IN ORDER TOOBTAIN A CONFIRMED ANALYTICAL RESULT.CONFIRMATION PERFORMED UPON REQUEST Benzodiazepines Screen Positive High [facility] Comment on above: URINE DRUG SCREENS A RE FOR MEDICAL PURPOSES ONLY.THIS TEST PROVIDES ONLY A PRELIMINARY TEST RESULT. A MORESPECIFIC ALTERNATE CHEMICAL METHOD MUST BE USED IN ORDER TOOBTAIN A CONFIRMED ANALYTICAL RESULT.CONFIRMATION PERFORMED UPON REQUEST Phencyclidine (PCP) Screen Negative [facility] Urine Drug Screen Note See below [facility] Comment on above: Cannabinoids ....... .................... [...] on 01-06-2024 Opiates Ql (Unsp spec) Negative [facility] Tetrahydrocannabinol [Presen ce] in UrineOrdered By: Omkar Del Cid on 01-06-2024 Tetrahydrocannabinol Ql (U) Positive [facility] Comment on above: THIS TEST PROVIDES O NLY A PRELIMINARY TEST RESULT. A MORESPECIFIC ALTERNATE CHEMICAL METHOD MUST BE USED IN ORDER TOOBTAIN A CONFIRMED ANALYTICAL RESULT.CONFIRMATION PERFORMED UPON REQUEST URINE DRUG SCREENon 01-06-20 24 AMPHETAMINES Positive Abnormal [facility] Comment on above: Order Comment: What Is Urine Source? Random Performed By: #### U DRGS #### [facility] [address] [place] [address] Other Comment: THIS TEST PROVIDES ONLY A [...] and can be ordered separately. BARBITURATES Negative [facility] Comment on above: Order Comment: What Is Urine Source? Random Performed By: #### U DRGS #### [address] [address] Other Comment: THIS TEST PROVIDES ONLY A [...] can be ordered separately. BENZODIAZEPINES Positive Abnormal [facility] Comment on above: Order Comment: What Is Urine Source? Random Performed By: #### U DRGS #### [address] [address] Other Comment: THIS TEST PROVIDES ONLY A [...] and can be ordered separately. COCAINE Negative [facility] Comment on above: Order Comment: What Is Urine Source? Random Performed By: #### U DRGS #### [facility] [address] [place] [address] Other Comment: THIS TEST PROVIDES ONLY A [...] and can be ordered separately. METHADONE Negative [facility] Comment on above: Order Comment: What Is Urine Source? Random Performed By: #### U DRGS #### [address] [address] Other Comment: THIS TEST PROVIDES ONLY A [...] and can be ordered separately. OPIATES Negative [facility] Comment on above: Order Comment: What Is Urine Source? Random Performed By: #### U DRGS #### [address] [address] Other Comment: THIS TEST PROVIDES ONLY A [...] and can be ordered separately. PHENCYCLIDINE Negative [facility] Comment on above: Order Comment: What Is Urine Source? Random Performed By: #### U DRGS #### [facility] [address] [place] [address] Other Comment: THIS TEST PROVIDES ONLY A [...] can be ordered separately. THC Positive Abnormal [facility] Comment on above: Order Comment: What Is Urine Source? Random Performed By: #### U DRGS #### [facility] [address] [place] [address] Other Comment: THIS TEST PROVIDES ONLY A [...] DRG SCREEN CUT OFF SEE BELOW Normal [facility] Comment on above: Order Comment: What Is Urine Source? Random Performed By: #### U DRGS #### [facility] [address] [place] [address] Other Comment: THIS TEST PROVIDES ONLY A [...] separately. ALCOHOL,PLASMAon 01-05-2024 ALCOHOL,PLASMA < 3.0 Normal [facility] Comment on above: Result Comment: < 3 mg/dl NONE DETECTED 50-100 mg/dl MAY SHOW SIGNS OF INTOXICATION 300-500 mg/dl COMATOSE LEVEL Performed By: #### T RO, [place], [place] #### [facility] [address] [place] [address] CBC with AUTO DIFFon 024 BAS0 % 0.80 % Normal 0-2 [facility] Comment on above: Performed By: #### C BC ####[address] [address] Basophils (Bld) [#/Vol] 0.1 10*3/uL Normal 0-0.1 [facility] Comment on above: Performed By: #### C BC ####[facility] [place] [address] Eosinophils (Bld) [#/Vol] 0.3 10*3/uL Normal 0.0-1.80 [facility] Comment on above: Performed By: #### C BC ####[facility] [place] [address] Eosinophils/100 WBC (Bld) 2.5 % Normal 0-8 [facility] Comment on above: Performed By: #### C BC ####[facility] [place] [address] GRAN # 6.4 K/uL Normal 2.2-9.1 [facility] Comment on above: Performed By: #### C BC ####[address] [address] GRAN % 58.9 % Normal 42-80 [facility] Comment on above: Performed By: #### C BC ####[address] [place] [address] Hematocrit (Bld) [Volume fraction] 39.5 % Low 41.0-53.0 [facility] Comment on above: Performed By: #### C BC ####[address] [place] [address] Hemoglobin (Bld) [Mass/Vol] 13.0 g/dL Low 14.0-18.0 [facility] Comment on above: Performed By: #### C BC ####[address] [place] [address] Lymphocytes (Bld) [#/Vol] 3.2 10*3/uL Normal 1.0-4.0 [facility] Comment on above: Performed By: #### C BC ####[address] [place] [address] Lymphocytes/100 WBC (Bld) 29.6 % Normal 16-48 [facility] Comment on above: Performed By: #### C BC ####[address] [place] [address] MCV (RBC) [Entitic vol] 87.6 fL Normal 80-97 [facility] Comment on above: Performed By: #### C BC ####[address] [place] [address] MEAN CORPUSCULAR HGB 28.8 pg Normal 26.0-32.0 [facility] Comment on above: Performed By: #### C BC ####[address] [place] [address] MEAN CORPUSCULAR HGB CONC 32.9 g/dL Normal 31.0-36.0 [facility] Comment on above: Performed By: #### C BC ####[address] [place] [address] MONO DISTRIB WIDTH 16.53 Normal 0-20 [facility] Comment on above: Result Comment: For ED adult patients suspected of sepsis, MDW<=20.0 does not rule out sepsis or risk of sepsis Performed By: #### C BC ####[address] [place] [address] Monocytes (Bld) [#/Vol] 0.9 10*3/uL Normal 0.1-1.7 [facility] Comment on above: Performed By: #### C BC ####[facility] [place] [address] Monocytes/100 WBC (Bld) 8.2 % Normal 3-9 [facility] Comment on above: Performed By: #### C BC ####[facility] [place] [address] Platelet mean volume (Bld) [Entitic vol] 8.1 fL Normal 6.4-10.5 [facility] Comment on above: Performed By: #### C BC ####[address] [place] [address] Platelets (Bld) [#/Vol] 276 10*3/uL Normal 140-450 [facility] Comment on above: Performed By: #### C BC ####[facility] [place] [address] RBC (Bld) [#/Vol] 4.51 10*6/uL Normal 4.40-6.30 [facility] Comment on above: Performed By: #### C BC ####[address] [place] [address] RED CELL DISTRI WIDTH 15.6 % High 11.0-15.5 [facility] Comment on above: Performed By: #### C BC ####[address] [place] [address] WBC (Bld) [#/Vol] 10.9 10*3/uL Normal 4.0-11.0 [facility] Comment on above: Performed By: #### C BC ####[address] [place] [address] COMPREHENSIVE METABOLIC PANE Gagandeep 01-05-2024 Albumin [Mass/Vol] 3.4 g/dL Normal 3.4-5.0 [facility] Comment on above: Performed By: #### T RO, [place]C, [place] #### [facility] [address] [place] [address] Albumin/Globulin [Mass ratio] 1.2 {ratio} Normal 1.1-1.8 [facility] Comment on above: Performed By: #### T RO, [place], [place] #### [address] [place] [address] ALP [Catalytic activity/Vol] 53 U/L Normal 45-117 [facility] Comment on above: Performed By: #### Myla STORY ALC [place] #### [facility] [address] [place] [address] ALT [Catalytic activity/Vol] 25 U/L Normal 12-78 [facility] Comment on above: Performed By: #### Myla STORY [place]C [place] #### [facility] [address] [place] [address] Anion gap [Moles/Vol] 15.8 mmol/L Normal 11-23 [facility] Comment on above: Performed By: #### Myla STORY ALC [place] #### [facility] [address] [place] [address] AST [Catalytic activity/Vol] 22 U/L Normal 15-37 [facility] Comment on above: Performed By: #### Myla STORY [place]C [place] #### [facility] [address] [place] [address] Bilirubin [Mass/Vol] 0.4 mg/dL Normal 0.2-1.0 [facility] Comment on above: Performed By: #### Myla STORY [place]C [place] #### [facility] [address] [place] [address] Calcium [Mass/Vol] 8.2 mg/dL Low 8.5-10.1 [facility] Comment on above: Performed By: #### Myla STORY [place]C [place] #### [facility] [address] [place] [address] Chloride [Moles/Vol] 109 mmol/L High 98-107 [facility] Comment on above: Performed By: #### Myla STORY ALC [place] #### [facility] [address] [place] [address] CO2 [Moles/Vol] 20.0 mmol/L Low 21-32 [facility] Comment on above: Performed By: #### Myla STORY [place]C [place] #### [facility] [address] [place] [address] Creatinine [Mass/Vol] 1.10 mg/dL Normal 0.7-1.3 [facility] Comment on above: Performed By: #### Myla STORY [place]C [place] #### [facility] [address] [place] [address] GFR > 60.0 [facility] Comment on above: Performed By: #### Myla STORY ALC [place] #### [facility] [address] [place] [address] GFR AM > 60.0 Normal [facility] Comment on above: Result Comment: THE NORMAL LEVEL OF GFR VARIES ACCORDING TO AGE, SEX, AND BODY SIZE. A GFR LEVEL OF LESS THAN 60 ML/MIN REPRESENTS LOSS OF THE ADULT LEVEL OF NORMAL KIDNEY FUNCTION. Performed By: #### Myla STORY [place]C [place] #### [address] [place] [address] Globulin (S) [Mass/Vol] 2.7 g/dL Normal 2.5-4.6 [facility] Comment on above: Performed By: #### Myla STORY ALC [place] #### [facility] [address] [place] [address] Glucose [Mass/Vol] 101 mg/dL High 70-100 [facility] Comment on above: Performed By: #### Myla STORY [place]C [place] #### [address] [place] [address] Potassium [Moles/Vol] 3.4 mmol/L Low 3.5-5.1 [facility] Comment on above: Performed By: #### Myla STORY [place]C [place] #### [address] [place] [address] Protein [Mass/Vol] 6.1 g/dL Normal 6.0-8.3 [facility] Comment on above: Performed By: #### Myla STORY [place]C [place] #### [address] [place] [address] Sodium [Moles/Vol] 141 mmol/L Normal 136-145 [facility] Comment on above: Performed By: #### Myla STORY [place]C [place] #### [address] [place] [address] Urea nitrogen [Mass/Vol] 15.0 mg/dL Normal 7-18 [facility] Comment on above: Performed By: #### Myla STORY [place]C [place] #### [address] [address] Determination of erythrocyte mean corpuscular volume (MCV)Ordered By: Omkar Del Cid on 01-05-2024 MCV (RBC) [Entitic vol] 87.6 fL 80-97 [facility] ED.PDOCon 01-05-2024 ED.PDOC ALEJOMATTY Male [id number] Attending provider: [facility] [id number] Omkar Del Cid A 1990 34 DOS: 01/05/24 Hx/Exam - History [...] 01/05/2024 10:41:35 PM EST Workstation ID : [id number] REPORT SIGNATURE ON FILE Electronically Signed Date/Time: 01/05/242240 Dictated Date/time: 01/05/242239; I d/w pt all imaging results. Mini resp panel NEGATIVE. [place] slip has been filled out for pt. We had reached out to the patient's mother spoke to her on the phone and she indicates the patient has had a long history with substance abuse. His urine drug screen is positive for methamphetamines. Mother states that he has been living in a homeless camp in [place] called mother bashir landin And he has been having a lot of problems with someone named Unk, And the patient had indicated threats of harm against this person earlier tonight. We reached out to psychiatric facilities and patient has been accepted to [facility] by Dr. Aceves. This note is completed with assistance of the [employer] dictation program. While every attempt has been made to dictate accurately, the system does make errors in transcribing the precise spoken word intended. EKG - EKG EKG Interpretation: Preliminary ED Interpretation (Sinus rhythm rate 90; no prior for comparison; QTc 446) Discharge Screen - Discharge Discharge Problem: Met (more content not included)... Normal [facility] EGFR non- AmericanOrd ered By: Omkar Del Cid on 01-05-2024 GFR/1.73 sq M.predicted among non-blacks MDRD (S/P/Bld) [Vol rate/Area] mL/min/{1.73_m2} [facility] Eosinophil percentOrdered By : Omkar Del Cid on 01-05-2024 Basophils/100 WBC (Bld) 0.80 % 0-2 [facility] Bilirubin [Mass/Vol] 0.4 mg/dL 0.2-1.0 [facility] Chloride [Moles/Vol] 109 mmol/L High 98-107 [facility] Eosinophil percent < 3.0 mg/dL [facility] Comment on above: < 3 mg/dl NONE DETEC UVI49-258 mg/dl MAY SHOW SIGNS OF [id number] mg/dl COMATOSE LEVEL Eosinophils/100 WBC (Bld) 2.5 % 0-8 [facility] Hemoglobin (Bld) [Mass/Vol] 13.0 g/dL Low 14.0-18.0 [facility] Lymphocytes (Bld) [#/Vol] 3.2 10*3/uL 1.0-4.0 [facility] Lymphocytes/100 WBC (Bld) 29.6 % 16-48 [facility] Monocytes (Bld) [#/Vol] 0.9 10*3/uL 0.1-1.7 [facility] Monocytes/100 WBC (Bld) 8.2 % 3-9 [facility] Potassium [Moles/Vol] 3.4 mmol/L Low 3.5-5.1 [facility] Protein [Mass/Vol] 6.1 g/dL 6.0-8.3 [facility] Sodium [Moles/Vol] 141 mmol/L 136-145 [facility] Fluoroscopic guidance for salo mbar puncture (LP)Ordered By: Omkar Del Cid on 01-05-2024 Albumin [Mass/Vol] 3.4 g/dL 3.4-5.0 [facility] Basophils (Bld) [#/Vol] 0.1 10*3/uL 0-0.1 [facility] Eosinophils (Bld) [#/Vol] 0.3 10*3/uL 0.0-1.80 [facility] Fluoroscopic guidance for lumbar puncture (LP) [facility] Granulocytes/100 WBC Auto (B ld)Ordered By: Omkar Del Cid on 01-05-2024 Granulocytes/100 WBC (Bld) 58.9 % 42-80 [facility] HEAD W/O CONTRASTon 01-05-20 24 HEAD W/O CONTRAST MATTY WHITLOCK Male [id number] Ordering physician: Omkar Del Cid LOC:ER [id number] Attending physician: 1990 34 DO S: 01/05/24 __ Acc#: [id number] Exam/Proc: HEAD W/O CONTRAST Dept: COMPUTED TOMOGRAPHY [...] 01/05/2024 10:41:35 PM EST Workstation ID : [id number] REPORT SIGNATURE ON FILE Electronically Signed Date/Time: 01/05/242240 Dictated Date/time: 01/05/242239 CC: Normal [facility] Laboratory - Chemistry and C hemistry - challengeOrdered By: Omkar Del Cid on 01-05-2024 Albumin/Globulin [Mass ratio] 1.2 {ratio} 1.1-1.8 [facility] ALP [Catalytic activity/Vol] 53 U/L 45-117 [facility] ALT [Catalytic activity/Vol] 25 U/L 12-78 [facility] AST [Catalytic activity/Vol] 22 U/L 15-37 [facility] Calcium [Mass/Vol] 8.2 mg/dL Low 8.5-10.1 [facility] CO2 [Moles/Vol] 20.0 mmol/L Low 21-32 [facility] Creatinine [Mass/Vol] 1.10 mg/dL 0.7-1.3 [facility] GFR/1.73 sq M.predicted MDRD (S/P/Bld) [Vol rate/Area] mL/min/{1.73_m2} [facility] Comment on above: THE NORMAL LEVEL OF GFR VARIES ACCORDING TO AGE, SEX, AND BODY SIZE. A GFR LEVEL OF LESS THAN 60 ML/MIN REPRESENTS LOSS OF THE ADULT LEVEL OF NORMAL KIDNEY FUNCTION. Globulin (S) [Mass/Vol] 2.7 g/dL 2.5-4.6 [facility] Glucose [Mass/Vol] 101 mg/dL High 70-100 [facility] Urea nitrogen [Mass/Vol] 15.0 mg/dL 7-18 [facility] Laboratory - Hematology and Cell countsOrdered By: Omkar Del Cid on 01-05-2024 Erythrocyte distribution width (RBC) [Ratio] 15.6 % High 11.0-15.5 [facility] Granulocytes (Bld) [#/Vol] 6.4 10*3/uL 2.2-9.1 [facility] Hematocrit (Bld) [Volume fraction] 39.5 % Low 41.0-53.0 [facility] MCH (RBC) [Entitic mass] 28.8 pg 26.0-32.0 [facility] MCHC (RBC) [Mass/Vol] 32.9 g/dL 31.0-36.0 [facility] Platelet mean volume (Bld) [Entitic vol] 8.1 fL 6.4-10.5 [facility] Platelets (Bld) [#/Vol] 276 10*3/uL 140-450 [facility] RBC (Bld) [#/Vol] 4.51 10*6/uL 4.40-6.30 [facility] WBC (Bld) [#/Vol] 10.9 10*3/uL 4.0-11.0 [facility] Monocyte distribution width [Entitic volume] in Blood by AutomatedOrdered By: Omkar Del Cid on 01-05-2024 Monocyte distribution width Auto (Bld) [Entitic vol] 16.53 0-20 [facility] Comment on above: For ED adult patient s suspected of sepsis, MDW<=20.0 does not rule out sepsis or risk of sepsis No Panel InformationOrdered By: Omkar Del Cid on 01-05-2024 Troponin 5.6 pg/mL 0-78.5 [facility] Comment on above: Troponin Reference R kevin:Male: 0-78.5 pg/mL (ng/L) Female: 0-53.7 pg/mL (ng/L) Note: The new high sensitivity Troponin units are in pg/mL (ng/L) Serum or plasma anion gapOrd ered By: Omkar Del Cid on 01-05-2024 Anion gap [Moles/Vol] 15.8 mmol/L 03-19 [facility] TROPONINon 01-05-2024 TROPONIN 5.6 pg/mL Normal 0-78.5 [facility] Comment on above: Result Comment: Trop onin Reference Range: Male: 0-78.5 pg/mL (ng/L) Female: 0-53.7 pg/mL (ng/L) Note: The new high sensitivity Troponin units are in pg/mL (ng/L) Performed By: #### T RO, [place], [place] #### [facility] [address] [address] CK SerPl-cCncon 12-28-2023 CK [Catalytic activity/Vol] 407 U/L High 26-192 [facility] Comment on above: Order Comment: Speci men Type: BLOOD SPECIMENOrdering Facility: [facility] Address: [address] [place] [address] Performed By: #### 2 157-6 ####[facility]ATORYCLIA [id number] [address] [place] ED NOTEon 12-28-2023 ED NOTE HNO ID: [id number] Author: KYLAH TREVIZO RN Service: Emergency Medicine Author Type: Registered Nurse Type: ED Notes Filed: 12/28/2023 02:38 Note Text: Pt provided discharge instructions and attachments, pt also provided resources for homelessness and drug abuse help. [facility] ED NOTE HNO ID: [id number] Author: KYLAH TREVIZO RN Service: Emergency Medicine Author Type: Registered Nurse Type: ED Notes Filed: 12/28/2023 02:21 Note Text: Pt speaking with intake at this time [facility] Basic metabolic 2000 panelon 12-27-2023 Anion gap [Moles/Vol] mmol/L Low 5-16 [facility] Comment on above: Order Comment: Speci men Type: BLOOD SPECIMENOrdering Facility: [facility] Address: [address] [place] [address] Performed By: #### 9 4500-6 #### [facility] CLIA [id number] [address] [place] [address] [place] Calcium [Mass/Vol] 9.8 mg/dL Normal 8.5-10.5 [facility] Comment on above: Order Comment: Speci men Type: BLOOD SPECIMENOrdering Facility: [facility] Address: [address] [place] [address] Performed By: #### 9 4500-6 #### [facility] CLIA [id number] [address] [place] [address] [place] Chloride [Moles/Vol] 109 mmol/L High 98-107 [facility] Comment on above: Order Comment: Speci men Type: BLOOD SPECIMENOrdering Facility: [facility] Address: [address] [place] [address] Performed By: #### 9 4500-6 #### [facility] CLIA [id number] [address] [place] [address] [place] CO2 [Moles/Vol] 28 mmol/L Normal 21-32 [facility] Comment on above: Order Comment: Speci men Type: BLOOD SPECIMENOrdering Facility: [facility] Address: [address] [place] [address] Performed By: #### 9 4500-6 #### [facility] CLIA [id number] [address] [place] [address] [place] Creatinine [Mass/Vol] 0.70 mg/dL Normal 0.50-1.40 [facility] Comment on above: Order Comment: Speci men Type: BLOOD SPECIMENOrdering Facility: [facility] Address: [address] [place] [address] Result Comment: Cathleen ents receiving either N-Acetylcysteine (NAC) or Metamizole prior to venipuncture, may have falsely depressed results. Performed By: #### 9 4500-6 #### [facility] CLIA [id number] [address] [place] [address] [facility] [place] Creatinine and Glomerular filtration rate.predicted panel (S/P/Bld) 126 mL/min/1.73m??? Normal >=60 [facility] Comment on above: Order Comment: Speci men Type: BLOOD SPECIMENOrdering Facility: [facility] Address: [address] [place] [address] Result Comment: Kenyetta mated Glomerular Filtration Rate [...] GFR. Performed By: #### 9 4500-6 #### [facility] CLIA [id number] [address] [place], [place] [id number] [place] Glucose [Mass/Vol] 65 mg/dL Low 70-100 [facility] Comment on above: Order Comment: Jo patton Type: BLOOD SPECIMENOrdering Facility: [facility] Address: [address] [place] [address] Result Comment: The [place] [employer] (ADA) provides guidance for cutoff [...] Standards of Medical Care in Diabetes 2016, [place] [employer]. Diabetes Care. 2016.39(Suppl 1). Results may be falsely elevated after the administration of Sulfapyridine. Results may be falsely depressed after the administration of Sulfasalazine. Performed By: #### 9 4500-6 #### [facility] CLIA [id number] [address] [place] [address] [place] Potassium [Moles/Vol] 3.6 mmol/L Normal 3.5-5.1 [facility] Comment on above: Order Comment: Jo patton Type: BLOOD SPECIMENOrdering Facility: [facility] Address: [address] [place] [address] Performed By: #### 9 4500-6 #### [facility] CLIA [id number] [address] [place], [place] [id number] [place] Sodium [Moles/Vol] 139 mmol/L Normal 136-145 [facility] Comment on above: Order Comment: Speci men Type: BLOOD SPECIMENOrdering Facility: [facility] Address: [address] [place] [address] Performed By: #### 9 4500-6 #### [facility] CLIA [id number] [address] [place] [address] [place] Urea nitrogen [Mass/Vol] 9 mg/dL Normal 11-19 [facility] Comment on above: Order Comment: Speci men Type: BLOOD SPECIMENOrdering Facility: [facility] Address: [address] [place] [address] Performed By: #### 9 4500-6 #### [facility] CLIA [id number] [address] [place] [address] [place] CBC W Auto Differential pane l (Bld)on 12-27-2023 Basophils (Bld) [#/Vol] 0.05 10*3/uL Normal <0.11 [facility] Comment on above: Order Comment: Speci men Type: BLOOD SPECIMEN Ordering Facility: [facility] Address: [address] [place] [address] Performed By: #### 2 4323-8, 5643-2 #### [facility] CLIA [id number] [address] [place] [address] [place] Basophils/100 WBC (Bld) 0.6 % Normal [facility] Comment on above: Order Comment: Speci men Type: BLOOD SPECIMEN Ordering Facility: [facility] Address: [address] [place] [address] Performed By: #### 2 4323-8, 5643-2 #### [facility] CLIA [id number] [address] [place] [address] [place] Differential cell count method Nom (Bld) Auto Normal [facility] Comment on above: Order Comment: Speci men Type: BLOOD SPECIMEN Ordering Facility: [facility] Address: [address] [place] [address] Performed By: #### 2 4323-8, 5643-2 #### [facility] CLIA [id number] [address] [place], [place] [id number] [place] Eosinophils (Bld) [#/Vol] 0.34 10*3/uL Normal <0.46 [facility] Comment on above: Order Comment: Speci men Type: BLOOD SPECIMEN Ordering Facility: [facility] Address: [address] [place] [address] Performed By: #### 2 4323-8, 5643-2 #### [facility] CLIA [id number] [address] [place] [address] [place] Eosinophils/100 WBC (Bld) 3.9 % Normal [facility] Comment on above: Order Comment: Speci men Type: BLOOD SPECIMEN Ordering Facility: [facility] Address: [address] [place] [address] Performed By: #### 2 4323-8, 5643-2 #### [facility] CLIA [id number] [address] [place] [address] [place] Erythrocyte distribution width (RBC) [Ratio] 14.6 % Normal 11.5-15.0 [facility] Comment on above: Order Comment: Speci men Type: BLOOD SPECIMEN Ordering Facility: [facility] Address: [address] [place] [address] Performed By: #### 2 4323-8, 5643-2 #### [facility] CLIA [id number] [address] [place] [address] [place] Hematocrit (Bld) [Volume fraction] 42.9 % Normal 39.0-51.0 [facility] Comment on above: Order Comment: Speci men Type: BLOOD SPECIMEN Ordering Facility: [facility] Address: [address] [place] [address] Performed By: #### 2 4323-8, 5643-2 #### [facility] CLIA [id number] [address] [place] [address] [place] Hemoglobin (Bld) [Mass/Vol] 14.3 g/dL Normal 13.0-17.0 [facility] Comment on above: Order Comment: Speci men Type: BLOOD SPECIMEN Ordering Facility: [facility] Address: [address] [id number] Performed By: #### 2 4323-8, 5643-2 #### [facility] CLIA [id number] [address] [place], [place] [id number] [place] Immature granulocytes (Bld) [#/Vol] 0.03 10*3/uL Normal <0.10 [facility] Comment on above: Order Comment: Speci men Type: BLOOD SPECIMEN Ordering Facility: [facility] Address: [address] [place] [address] Performed By: #### 2 4323-8, 5643-2 #### [facility] CLIA [id number] [address] [place] [address] [place] Immature granulocytes/100 WBC (Bld) 0.3 % Normal [facility] Comment on above: Order Comment: Speci men Type: BLOOD SPECIMEN Ordering Facility: [facility] Address: [address] [place] [address] Performed By: #### 2 4323-8, 5643-2 #### [facility] CLIA [id number] [address] [place] [address] [place] Lymphocytes (Bld) [#/Vol] 2.43 10*3/uL Normal 1.00-4.00 [facility] Comment on above: Order Comment: Speci men Type: BLOOD SPECIMEN Ordering Facility: [facility] Address: [address] [place] [address] Performed By: #### 2 4323-8, 5643-2 #### [facility] CLIA [id number] [address] [place] [address] [place] Lymphocytes/100 WBC (Bld) 28.2 % Normal [facility] Comment on above: Order Comment: Speci men Type: BLOOD SPECIMEN Ordering Facility: [facility] Address: [address] [place] [address] Performed By: #### 2 4323-8, 5643-2 #### [facility] CLIA [id number] [address] [place] [address] [place] OF [facility] MCH (RBC) [Entitic mass] 29.2 pg Normal 26.0-34.0 [facility] Comment on above: Order Comment: Speci men Type: BLOOD SPECIMEN Ordering Facility: [facility] Address: [address] [place] [address] Performed By: #### 2 4323-8, 5643-2 #### [facility] CLIA [id number] [address] [place] [address] [place] MCHC (RBC) [Mass/Vol] 33.3 g/dL Normal 30.5-36.0 [facility] Comment on above: Order Comment: Speci men Type: BLOOD SPECIMEN Ordering Facility: [facility] Address: [address] [place] [address] Performed By: #### 2 4323-8, 5643-2 #### [facility] CLIA [id number] [address] [place] [address] [place] MCV (RBC) [Entitic vol] 87.6 fL Normal 80.0-100.0 [facility] Comment on above: Order Comment: Speci men Type: BLOOD SPECIMEN Ordering Facility: [facility] Address: [address] [place] [address] Performed By: #### 2 4323-8, 5643-2 #### [facility] CLIA [id number] [address] [place] [address] [place] Monocytes (Bld) [#/Vol] 0.70 10*3/uL Normal <0.87 [facility] Comment on above: Order Comment: Speci men Type: BLOOD SPECIMEN Ordering Facility: [facility] Address: [address] [place] [address] Performed By: #### 2 4323-8, 5643-2 #### [facility] CLIA [id number] [address] [place] [address] Monocytes/100 WBC (Bld) 8.1 % Normal [facility] Comment on above: Order Comment: Speci men Type: BLOOD SPECIMEN Ordering Facility: [facility] Address: [address] [id number] Performed By: #### 2 4323-8, 5643-2 #### [facility] CLIA [id number] [address] [place], [place] [address] [place] Neutrophils (Bld) [#/Vol] 5.06 10*3/uL Normal 1.45-7.50 [facility] Comment on above: Order Comment: Speci men Type: BLOOD SPECIMEN Ordering Facility: [facility] Address: [address] [place] [address] Performed By: #### 2 4323-8, 5643-2 #### [facility] CLIA [id number] [address] [place] [address] [place] Neutrophils/100 WBC (Bld) 58.9 % Normal [facility] Comment on above: Order Comment: Speci men Type: BLOOD SPECIMEN Ordering Facility: [facility] Address: [address] [place] [address] Performed By: #### 2 4323-8, 5643-2 #### [facility] CLIA [id number] [address] [place] [address] [place] Nucleated RBC (Bld) [#/Vol] 10*3/uL Normal <0.01 [facility] Comment on above: Order Comment: Speci men Type: BLOOD SPECIMEN Ordering Facility: [facility] Address: [address] [place] [address] Performed By: #### 2 4323-8, 5643-2 #### [facility] CLIA [id number] [address] [place] [address] [place] Nucleated RBC/100 WBC (Bld) [Ratio] 0.0 /100 WBC Normal [facility] Comment on above: Order Comment: Speci men Type: BLOOD SPECIMEN Ordering Facility: [facility] Address: [address] [place] [address] Performed By: #### 2 4323-8, 5643-2 #### [facility] CLIA [id number] [address] [place] [address] [place] Platelet mean volume (Bld) [Entitic vol] 10.0 fL Normal 9.0-12.7 [facility] Comment on above: Order Comment: Speci men Type: BLOOD SPECIMEN Ordering Facility: [facility] Address: [address] [place] [address] Performed By: #### 2 4323-8, 5643-2 #### [facility] CLIA [id number] [address] [place] [address] [place] Platelets (Bld) [#/Vol] 305 10*3/uL Normal 150-400 [facility] Comment on above: Order Comment: Speci men Type: BLOOD SPECIMEN Ordering Facility: [facility] Address: [address] [place] [address] Performed By: #### 2 4323-8, 5643-2 #### [facility] CLIA [id number] [address] [place] [address] [place] RBC (Bld) [#/Vol] 4.90 10*6/uL Normal 4.20-6.00 [facility] Comment on above: Order Comment: Speci men Type: BLOOD SPECIMEN Ordering Facility: [facility] Address: [address] [place] [address] Performed By: #### 2 4323-8, 5643-2 #### [facility] CLIA [id number] [address] [place] [address] [place] WBC (Bld) [#/Vol] 8.61 10*3/uL Normal 3.70-11.00 [facility] Comment on above: Order Comment: Speci men Type: BLOOD SPECIMEN Ordering Facility: [facility] Address: [address] [place] [address] Performed By: #### 2 4323-8, 5643-2 #### [facility] CLIA [id number] [address] [place] [address] [place] CK SerPl-cCncon 12-27-2023 CK [Catalytic activity/Vol] 616 U/L High 26-192 [facility] Comment on above: Order Comment: Speci men Type: BLOOD SPECIMENOrdering Facility: [facility] Address: [facility] [address] [place] [id number] Performed By: #### 9 4500-6 #### [facility] CLIA [id number] [address] [place] [address] CK [Catalytic activity/Vol] 717 U/L [facility] [address] [facility] Comment on above: Order Comment: Speci men Type: BLOOD SPECIMEN Ordering Facility: [facility] Address: [address] [place] [address] Performed By: #### 2 4323-8, 5643-2 #### [facility] CLIA [id number] [address] [place] [address] CK [Catalytic activity/Vol] 787 U/L [facility] [address] [facility] Comment on above: Order Comment: Speci men Type: BLOOD SPECIMEN Ordering Facility: [facility] Address: [address] [place] [address] Performed By: #### 2 4323-8, 5643-2 #### [facility] CLIA [id number] [address] [place] [address] OF [facility] ECG COMPLETEon 12-27-2023 ECG COMPLETE Ventricular Rate : 7 8 BPM Atrial Rate : 78 BPM P-R Interval : 142 ms QRS Duration : 94 ms Q-T Interval : 362 ms QTC Calculation(Bazett) : 412 ms Calculated P [place] : 73 degrees Calculated R [place] : 31 degrees Calculated T [place] : 35 degrees Normal sinus rhythm with sinus arrhythmia Normal ECG When compared with ECG of 26-Dec-2023 22:48, No significant change was found Confirmed by SEBASTIAN STEWART, [facility] ([id number]) on 12/28/2023 10:40:02 PM NAME : MATTY WHITLOCK PID : [id number] : 1990 Gender : Male Race : ORD : [id number] Procedure Date : Dec 27 2023 20:25:13 Edit Date : Dec 28 2023 22:40:08 Diagnosis: Normal sinus rhythm with sinus arrhythmia Normal ECG When compared with ECG of 26-Dec-2023 22:48, No significant change was found Confirmed by DELFINO CORTES MD ([id number]) on 12/28/2023 10:40:02 PM Test Reason : stat Location : 0 : ED EDFTD Overread By : DELFINO CORTES MD Edited By : DELFINO CORTES MD Referred By : , Acquired by : [id number], [facility] ED NOTEon 12-27-2023 ED NOTE HNO ID: [id number] Author: KYLAH TREVIZO RN Service: Emergency Medicine Author Type: Registered Nurse Type: ED Notes Filed: 12/27/2023 22:05 Note Text: Pt offered and declined nicotine patch at this time [facility] ED NOTE HNO ID: [id number] Author: KYLAH TREVIZO RN Service: Emergency Medicine Author Type: Registered Nurse Type: ED Notes Filed: 12/27/2023 21:55 Note Text: Provided deemed pt capacity hold at this time, states room does not need cleared out. Pts belongings removed and placed in yellow gown. 1:1 sitter at bedside. Safety maintained. [facility] ED NOTE HNO ID: [id number] Author: KYLAH TREVIZO RN Service: Emergency Medicine Author Type: Registered Nurse Type: ED Notes Filed: 12/27/2023 21:17 Note Text: Pt provided orange juice, alfonso crackers, and peanut butter at this time. [facility] ED NOTE HNO ID: [id number] Author: KYLAH TREVIZO RN Service: Emergency Medicine Author Type: Registered Nurse Type: ED Notes Filed: 12/27/2023 21:11 Note Text: Pt unable to provide urine sample at this time [facility] ED NOTE HNO ID: [id number] Author: KYLAH TREVIZO RN Service: Emergency Medicine Author Type: Registered Nurse Type: ED Notes Filed: 12/27/2023 21:11 Note Text: PT c/o anxiety. Pt states noises make it worse. Pt states he was here last night for same and left. Pt denies SI/HI. Pt denies auditory/visual hallucinations. Pt resting in cot. Pt denies any needs a this time. [facility] ED NOTE HNO ID: [id number] Author: ELBA AVILA RN Service: ? Author Type: Registered Nurse Type: ED Notes Filed: 12/27/2023 20:54 Note Text: Bed: -ED Expected date: Expected time: Means of arrival: Comments: FT-D [facility] ED NOTE HNO ID: [id number] Author: VANNESA TORRES RN Service: Emergency Medicine Author Type: Registered Nurse Type: ED Notes Filed: 12/27/2023 20:01 Note Text: Pt provided scrubs, towels, soap, toothbrush and toothpaste to be able to clean up after being medically d/c by provider. [facility] ED NOTE HNO ID: [id number] Author: YUDITH SANFORD RN Service: ? Author Type: Registered Nurse Type: ED Notes Filed: 12/27/2023 12:23 Note Text: Psych triage given pt assistance for homelessness - also security giving pt phone number for homeless assistance [facility] ED NOTE HNO ID: [id number] Author: YUDITH SANFORD RN Service: ? Author Type: Registered Nurse Type: ED Notes Filed: 12/27/2023 12:18 Note Text: Attempted to call Pts father, he was not able to picking supervisor pt. Was told to call his mother [phone] - Pts mother said she has not heard from him in weeks and will not be coming ot get him. [facility] ED NOTE HNO ID: [id number] Author: YUDITH SANFORD RN Service: ? Author Type: Registered Nurse Type: ED Notes Filed: 12/27/2023 11:51 Note Text: Pt continues to be in the bed, resting. Sitter continues to be present [facility] ED NOTE HNO ID: [id number] Author: YUDITH SANFORD RN Service: ? Author Type: Registered Nurse Type: ED Notes Filed: 12/27/2023 11:51 Note Text: [facility] ED NOTE HNO ID: [id number] Author: YUDITH SANFORD RN Service: ? Author Type: Registered Nurse Type: ED Notes Filed: 12/27/2023 11:50 Note Text: Psych triage called to evaluate the pt. [facility] ED NOTE HNO ID: [id number] Author: MAYUR DEL TORO, KAVITHA Service: ? Author Type: Clinical Portable Machine Sander Type: ED Notes Filed: 12/27/2023 09:42 Note Text: Pt agitated at slight inconvenience, running to bathroom, tearing off gown, sporadic speech. Upon being sternly told to calm down Pt became apologetic immediately and said That wasn't appropriate of me at all, I am sorry [facility] ED NOTE HNO ID: [id number] Author: YUDITH SANFORD, RN Service: ? Author Type: Registered Nurse Type: ED Notes Filed: 12/27/2023 09:38 Note Text: 1st Nicotine patch was placed in sharps container. [facility] ED NOTE HNO ID: [id number] Author: YUDITH SANFORD, RN Service: ? Author Type: Registered Nurse Type: ED Notes Filed: 12/27/2023 09:24 Note Text: Pt upset because nicotine patch was not the 21 mg. Let the MD know and 21 MG patch ordered. Will remove the 1st patch as soon as the 2nd patch is available. Pt given his lunch tray. Pt is sweaty to touch. [facility] ED NOTE HNO ID: [id number] Author: YUDITH SANFORD RN Service: ? Author Type: Registered Nurse Type: ED Notes Filed: 12/27/2023 08:19 Note Text: Called [facility], no information for this pt at this time. [facility] ED NOTE HNO ID: [id number] Author: YUDITH SANFORD, AZAEL Service: ? Author Type: Registered Nurse Type: ED Notes Filed: 12/27/2023 07:43 Note Text: Received report, assumed care. Checked in on pt, pt resting, breathing is not labored. Sitter present. Room appears safe, belongings are not in the room. [facility] ED NOTE HNO ID: [id number] Author: YVON PORTER, AZAEL Service: ? Author Type: Registered Nurse Type: ED Notes Filed: 12/27/2023 06:27 Note Text: Patient is sleeping at this time. Has been cooperative. Patient is in a yellow gown, room has been cleared of contents. Patient belongings labeled and with security. Patient permit coordinator is at bedside. [facility] ED PROV NOTEon 12-27-2023 ED PROV NOTE HNO ID: [id number] Author: TOYIN SAMUEL PA-C Service: ? Author Type: Physician Concrete Building Assembler Type: ED Provider Notes Filed: 12/28/2023 02:41 [...] an a stranger last night in the [facility]. States he is anxious since then. Reports [...] Known Allergies Physical Exam Physical Exam Vitals [12/27/23 1942] BP Pulse Temp Temp src Resp SpO2 [...] iv bolus (0 mL INTRAVENOUS Infusion Complete 9/1/24 2342) NaCl 0.9% 1,000 mL iv bolus (0 mL INTRAVENOUS Infusion Complete 12/27/23 2342) Discharge Medications Discharge Medication List as of [...] discharged at (more content not included)... [facility] ED PROV NOTE HNO ID: [id number] Author: MARISA GOMEZ MD Service: Emergency Medicine [...] PAGER/CONTACT #: MARISA GOMEZ 12/27/[address] [facility] ED Triage Noteon 12-27-2023 ED Triage Note HNO ID: [id number] Author: ENRIQUE URRUTIA PA-C Service: ? Author Type: Physician Concrete Building Assembler Type: ED Triage Notes Filed: 12/27/2023 20:06 [...] ECG COMPLETE SIGNATURE: Enrique Urrutia PA-C Normal [facility] Ethanol SerPl-mCncon 024 Ethanol [Mass/Vol] mg/dL Normal <0.010 [facility] Comment on above: Order Comment: Speci men Type: BLOOD SPECIMENOrdering Facility: [facility] Address: [address] [place] [address] Performed By: #### 9 4500-6 #### [facility] CLIA [id number] [address] [place] [address] [place] HIGH SENSITIVITY TROPONIN Io n 12-27-2023 Tropinin I.cardiac panel High sensitivity method 2.8 pg/mL Normal 0.0-54.0 [facility] Comment on above: Order Comment: Speci men Type: BLOOD SPECIMEN Ordering Facility: [facility] Address: [address] [place] [address] Performed By: #### 2 4323-8, 5643-2 #### [facility] CLIA [id number] [address] [place] [address] [place] TOXICOLOGY SCREEN, ROUTINE U RINEon 12-27-2023 Amphetamines Confirm (U) [Mass/Vol] Positive Abnormal Negative [facility] Comment on above: Order Comment: Speci men Type: URINE SPECIMENOrdering Facility: [facility] Address: [address] [place] [address] Result Comment: Cuto ff threshold at 1000 ng/mL. Performed By: #### 9 4500-6 #### [facility] CLIA [id number] [address] [place] [address] [facility] [place] BARBITURATES, URINE Negative Normal Negative [facility] Comment on above: Order Comment: Speci men Type: URINE SPECIMENOrdering Facility: [facility] Address: [address] [place] [address] Result Comment: Cuto ff threshold at 200 ng/mL. Performed By: #### 9 4500-6 #### [facility] CLIA [id number] [address] [place] [address] [place] BENZODIAZEPINES, UR Negative Normal Negative [facility] Comment on above: Order Comment: Speci men Type: URINE SPECIMENOrdering Facility: [facility] Address: [address] [place] [address] Result Comment: Cuto ff threshold at 200 ng/mL. Performed By: #### 9 4500-6 #### [facility] CLIA [id number] [address] [place] [address] [place] Cannabinoids Screen Ql (U) Positive Abnormal Negative [facility] Comment on above: Order Comment: Speci men Type: URINE SPECIMENOrdering Facility: [facility] Address: [address] [place] [address] Result Comment: Cuto ff threshold at 50 ng/mL. Performed By: #### 9 4500-6 #### [facility] CLIA [id number] [address] [place] [address] [place] Cocaine Ql (U) Positive Abnormal Negative [facility] Comment on above: Order Comment: Speci men Type: URINE SPECIMENOrdering Facility: [facility] Address: [address] [place] [address] Result Comment: Cuto ff threshold at 300 ng/mL. Performed By: #### 9 4500-6 #### [facility] CLIA [id number] [address] [place] [address] [place] Opiates Screen Ql (U) Negative Normal Negative [facility] Comment on above: Order Comment: Speci men Type: URINE SPECIMENOrdering Facility: [facility] Address: [address] [place] [address] Result Comment: Cuto ff threshold at 300 ng/mL. Performed By: #### 9 4500-6 #### [facility] CLIA [id number] [address] [place] [address] Phencyclidine Ql (U) Negative Normal Negative [facility] Comment on above: Order Comment: Speci men Type: URINE SPECIMENOrdering Facility: [facility] Address: [address] [place] [address] Result Comment: Cuto ff threshold at 25 ng/mL. Performed By: #### 9 4500-6 #### [facility] CLIA [id number] [address] [place] [address] OF [place] Urinalysis complete panel (U )on 12-27-2023 Bacteria LM.HPF (Urine sed) [#/Area] None Seen Normal None Seen [facility] Comment on above: Order Comment: Speci men Type: URINE SPECIMENOrdering Facility: [facility] Address: [address] [place] [address] Performed By: #### 9 4500-6 #### [facility] CLIA [id number] [address] [place] [address] STATES OF [facility] Bilirubin Ql (U) Negative Normal Negative [facility] Comment on above: Order Comment: Speci men Type: URINE SPECIMENOrdering Facility: [facility] Address: [address] [place] [address] Performed By: #### 9 4500-6 #### [facility] CLIA [id number] [address] [place] [address] STATES [place] Clarity (Unsp spec) Clear Normal Clear [facility] [facility] Comment on above: Order Comment: Speci men Type: URINE SPECIMENOrdering Facility: [facility] Address: [address] [place] [address] Performed By: #### 9 4500-6 #### [facility] CLIA [id number] [address] [place] [address] [place] Color (U) Straw Normal Yellow [facility] Comment on above: Order Comment: Speci men Type: URINE SPECIMENOrdering Facility: [facility] Address: [address] [place] [address] Performed By: #### 9 4500-6 #### [facility] CLIA [id number] [address] [place] [address] [place] Epithelial cells LM.HPF (Urine sed) [#/Area] Few Normal [facility] Comment on above: Order Comment: Speci men Type: URINE SPECIMENOrdering Facility: [facility] Address: [address] [place] [address] Performed By: #### 9 4500-6 #### [facility] CLIA [id number] [address] [place] [address] [facility] [place] Glucose Test strip (U) [Mass/Vol] Negative Normal Negative [facility] Comment on above: Order Comment: Speci men Type: URINE SPECIMENOrdering Facility: [facility] Address: [address] [place] [address] Performed By: #### 9 4500-6 #### [facility] CLIA [id number] [address] [place] [address] [place] Hemoglobin Ql (U) Negative Normal Negative [facility] Comment on above: Order Comment: Speci men Type: URINE SPECIMENOrdering Facility: [facility] Address: [address] [place] [address] Performed By: #### 9 4500-6 #### [facility] CLIA [id number] [address] [place] [address] [place] Ketones Ql (U) Negative Normal Negative [facility] Comment on above: Order Comment: Speci men Type: URINE SPECIMENOrdering Facility: [facility] Address: [address] [place] [address] Performed By: #### 9 4500-6 #### [facility] CLIA [id number] [address] [place] [address] [place] Leukocyte esterase Test strip Ql (U) Negative Normal Negative [facility] Comment on above: Order Comment: Speci men Type: URINE SPECIMENOrdering Facility: [facility] Address: [address] [place] [address] Performed By: #### 9 4500-6 #### [facility] CLIA [id number] [address] [place] [address] [place] Nitrite Ql (U) Negative Normal Negative [facility] Comment on above: Order Comment: Speci men Type: URINE SPECIMENOrdering Facility: [facility] Address: [address] [place] [address] Performed By: #### 9 4500-6 #### [facility] CLIA [id number] [address] [place] [address] [place] pH (U) 6.0 [pH] Normal 5.0-8.0 [facility] Comment on above: Order Comment: Speci men Type: URINE SPECIMENOrdering Facility: [facility] Address: [address] [place] [address] Performed By: #### 9 4500-6 #### [facility] CLIA [id number] [address] [place] [address] [place] Protein (U) [Mass/Vol] Negative Normal Negative [facility] Comment on above: Order Comment: Speci men Type: URINE SPECIMENOrdering Facility: [facility] Address: [address] [place] [address] Performed By: #### 9 4500-6 #### [facility] CLIA [id number] [address] [place] [address] [place] RBC LM.HPF (Urine sed) [#/Area] 0-3 /HPF Normal 0-3 /HPF [facility] Comment on above: Order Comment: Speci men Type: URINE SPECIMENOrdering Facility: [facility] Address: [address] [place] [address] Performed By: #### 9 4500-6 #### [facility] CLIA [id number] [address] [place] [address] [place] Specific gravity (U) [Rel density] 1.009 Normal 1.005-1.030 [facility] Comment on above: Order Comment: Speci men Type: URINE SPECIMENOrdering Facility: [facility] Address: [address] [place] [address] Performed By: #### 9 4500-6 #### [facility] CLIA [id number] [address] [place] [address] [place] Urobilinogen Ql (U) Negative Normal Negative [facility] Comment on above: Order Comment: Speci men Type: URINE SPECIMENOrdering Facility: [facility] Address: [address] [place] [address] Performed By: #### 9 4500-6 #### [facility] CLIA [id number] [address] [place] [address] [place] WBC LM.HPF (Urine sed) [#/Area] 0-5 /HPF Normal 0-5 /HPF [facility] Comment on above: Order Comment: Speci men Type: URINE SPECIMENOrdering Facility: [facility] Address: [address] [place] [address] Performed By: #### 9 4500-6 #### [facility] CLIA [id number] [address] [place] [address] [place] CBC panel Auto (Bld)on 12-25 Erythrocyte distribution width (RBC) [Ratio] 14.4 % Normal 11.5-15.0 [facility] Comment on above: Order Comment: Speci men Type: URINE SPECIMEN [facility] Address: [address] [place] [address] Performed By: #### U TOX2 #### [facility] CLIA [id number] [address] [place] [address] [place] Hematocrit (Bld) [Volume fraction] 40.8 % Normal 39.0-51.0 [facility] Comment on above: Order Comment: Speci men Type: URINE SPECIMEN [facility] Address: [address] [place] [address] Performed By: #### U TOX2 #### [facility] CLIA [id number] [address] [place] Hemoglobin (Bld) [Mass/Vol] 13.7 g/dL Normal 13.0-17.0 [facility] Comment on above: Order Comment: Speci men Type: URINE SPECIMEN [facility] Address: [address] [place] [address] Performed By: #### U TOX2 #### [facility] CLIA [id number] [address] [place] [address] [place] MCH (RBC) [Entitic mass] 28.9 pg Normal 26.0-34.0 [facility] Comment on above: Order Comment: Speci men Type: URINE SPECIMEN [facility] Address: [address] [place] [address] Performed By: #### U TOX2 #### [facility] CLIA [id number] [address] [place] [address] [place] MCHC (RBC) [Mass/Vol] 33.6 g/dL Normal 30.5-36.0 [facility] Comment on above: Order Comment: Speci men Type: URINE SPECIMEN [facility] Address: [address] [place] [address] Performed By: #### U TOX2 #### [facility] CLIA [id number] [address] [place] [address] [place] MCV (RBC) [Entitic vol] 86.1 fL Normal 80.0-100.0 [facility] Comment on above: Order Comment: Speci men Type: URINE SPECIMEN [facility] Address: [address] [place] [address] Performed By: #### U TOX2 #### [facility] CLIA [id number] [address] [place] [address] [place] Nucleated RBC (Bld) [#/Vol] 10*3/uL Normal <0.01 [facility] Comment on above: Order Comment: Speci men Type: URINE SPECIMEN [facility] Address: [address] [place] [address] Performed By: #### U TOX2 #### [facility] CLIA [id number] [address] [place] [address] [place] Platelet mean volume (Bld) [Entitic vol] 9.7 fL Normal 9.0-12.7 [facility] Comment on above: Order Comment: Speci men Type: URINE SPECIMEN [facility] Address: [address] [place] [address] Performed By: #### U TOX2 #### [facility] CLIA [id number] [address] [place] [address] [place] Platelets (Bld) [#/Vol] 299 10*3/uL Normal 150-400 [facility] Comment on above: Order Comment: Speci men Type: URINE SPECIMEN [facility] Address: [address] [place] [address] Performed By: #### U TOX2 #### [facility] CLIA [id number] [address] [place] [address] [place] RBC (Bld) [#/Vol] 4.74 10*6/uL Normal 4.20-6.00 [facility] Comment on above: Order Comment: Speci men Type: URINE SPECIMEN [facility] Address: [address] [place] [address] Performed By: #### U TOX2 #### [facility] CLIA [id number] [address] [place] [address] [place] WBC (Bld) [#/Vol] 10.95 10*3/uL Normal 3.70-11.00 [facility] Comment on above: Order Comment: Speci men Type: URINE SPECIMEN [facility] Address: [address] [place] [address] Performed By: #### U TOX2 #### [facility] CLIA [id number] [address] [place] [address] [facility] [place] CK SerPl-cCncon 12-26-2023 CK [Catalytic activity/Vol] 1034 U/L High 26-192 [facility] Comment on above: Order Comment: Speci men Type: URINE SPECIMEN [facility] Address: [address] [place] [address] Result Comment: [facility] Performed By: #### U TOX2 #### [facility] CLIA [id number] [address] [place] [address] OF [facility] Comprehensive metabolic 2000 panelon 12-26-2023 Albumin [Mass/Vol] 3.9 g/dL Normal 3.2-5.0 [facility] Comment on above: Order Comment: Speci men Type: URINE SPECIMEN [facility] Address: [address] [place] [address] Performed By: #### U TOX2 #### [facility] CLIA [id number] [address] [place] [address] [place] ALP [Catalytic activity/Vol] 65 U/L Normal 45-117 [facility] Comment on above: Order Comment: Speci men Type: URINE SPECIMEN [facility] Address: [address] [place] [address] Performed By: #### U TOX2 #### [facility] CLIA [id number] [address] [place] [address] [place] ALT [Catalytic activity/Vol] 30 U/L Normal 13-61 [facility] Comment on above: Order Comment: Speci men Type: URINE SPECIMEN [facility] Address: [address] [place] [address] Result Comment: Resu lts may be falsely depressed after the administration of Sulfasalazine and/or Sulfapyridine. Performed By: #### U TOX2 #### [facility] CLIA [id number] [address] [place] [address] [place] Anion gap [Moles/Vol] 5 mmol/L Normal 5-16 [facility] Comment on above: Order Comment: Speci men Type: URINE SPECIMEN [facility] Address: [address] [place] [address] Performed By: #### U TOX2 #### [facility] CLIA [id number] [address] [place] [address] [place] AST [Catalytic activity/Vol] 39 U/L High 8-34 [facility] Comment on above: Order Comment: Speci men Type: URINE SPECIMEN [facility] Address: [address] [place] [address] Result Comment: Resu lts may be falsely depressed after the administration of Sulfasalazine and/or Sulfapyridine. Performed By: #### U TOX2 #### [facility] CLIA [id number] [address] [place] [address] [place] Bilirubin [Mass/Vol] 0.6 mg/dL Normal 0.2-1.0 [facility] Comment on above: Order Comment: Speci men Type: URINE SPECIMEN [facility] Address: [address] [place] [address] Performed By: #### U TOX2 #### [facility] CLIA [id number] [address] [place] [address] [place] Calcium [Mass/Vol] 9.9 mg/dL Normal 8.5-10.5 [facility] Comment on above: Order Comment: Speci men Type: URINE SPECIMEN [facility] Address: [address] [place] [address] Performed By: #### U TOX2 #### [facility] CLIA [id number] [address] [place] [address] [place] Chloride [Moles/Vol] 106 mmol/L Normal 98-107 [facility] Comment on above: Order Comment: Speci men Type: URINE SPECIMEN [facility] Address: [address] [place] [address] Performed By: #### U TOX2 #### [facility] CLIA [id number] [address] [place] [address] [place] CO2 [Moles/Vol] 27 mmol/L Normal 21-32 [facility] Comment on above: Order Comment: Speci men Type: URINE SPECIMEN [facility] Address: [address] [place] [address] Performed By: #### U TOX2 #### [facility] CLIA [id number] [address] [place] [address] [place] Creatinine [Mass/Vol] 0.83 mg/dL Normal 0.50-1.40 [facility] Comment on above: Order Comment: Speci men Type: URINE SPECIMEN [facility] Address: [address] [place] [address] Result Comment: Cathleen ents receiving either N-Acetylcysteine (NAC) or Metamizole prior to venipuncture, may have falsely depressed results. Performed By: #### U TOX2 #### [facility] CLIA [id number] [address] [place] [address] OF [facility] Creatinine and Glomerular filtration rate.predicted panel (S/P/Bld) 119 mL/min/1.73m??? Normal >=60 [facility] Comment on above: Order Comment: Speci men Type: URINE SPECIMEN [facility] Address: [address] [place] [address] Result Comment: Kenyetta mated Glomerular Filtration Rate [...] GFR. Performed By: #### U TOX2 #### [facility] CLIA [id number] [address] [place] [address] [place] Glucose [Mass/Vol] 94 mg/dL Normal 70-100 [facility] Comment on above: Order Comment: Speci men Type: URINE SPECIMEN [facility] Address: [address] [place] [address] Result Comment: The [place] [employer] (ADA) provides guidance for cutoff [...] Standards of Medical Care in Diabetes 2016, [place] [employer]. Diabetes Care. 2016.39(Suppl 1). Results may be falsely elevated after the administration of Sulfapyridine. Results may be falsely depressed after the administration of Sulfasalazine. Performed By: #### U TOX2 #### [facility] CLIA [id number] [address] [place] [address] [place] Potassium [Moles/Vol] 3.9 mmol/L Normal 3.5-5.1 [facility] Comment on above: Order Comment: Speci men Type: URINE SPECIMEN [facility] Address: [address] [place] [address] Performed By: #### U TOX2 #### [facility] CLIA [id number] [address] [place] [address] [place] Protein [Mass/Vol] 6.5 g/dL Normal 6.0-8.5 [facility] Comment on above: Order Comment: Speci men Type: URINE SPECIMEN [facility] Address: [address] [place] [address] Performed By: #### U TOX2 #### [facility] CLIA [id number] [address] [place] [address] [place] Sodium [Moles/Vol] 138 mmol/L Normal 136-145 [facility] Comment on above: Order Comment: Speci men Type: URINE SPECIMEN [facility] Address: [address] [place] [address] Performed By: #### U TOX2 #### [facility] CLIA [id number] [address] [place] [address] [place] Urea nitrogen [Mass/Vol] 12 mg/dL Normal 7-26 [facility] Comment on above: Order Comment: Speci men Type: URINE SPECIMEN [facility] Address: [facility] [place] [id number] Performed By: #### U TOX2 #### [facility] CLIA [id number] [address] [place] [address] [place] ECG COMPLETEon 12-26-2023 ECG COMPLETE Ventricular Rate : 9 4 BPM Atrial Rate : 94 BPM P-R Interval : 136 ms QRS Duration : 92 ms Q-T Interval : 348 ms QTC Calculation(Bazett) : 435 ms Calculated P [place] : 76 degrees Calculated R [place] : 71 degrees Calculated T [place] : 42 degrees Normal sinus rhythm with sinus arrhythmia Normal ECG When compared with ECG of 14-Sep-2023 17:02, No significant change was found Confirmed by DELFINO CORTES MD ([id number]) on 12/27/2023 12:16:51 PM NAME : MATTY WHITLOCK PID : [id number] : 1990 Gender : Male Race : ORD : [id number] Procedure Date : Dec 26 2023 22:48:15 Edit Date : Dec 27 2023 12:16:55 Diagnosis: Normal sinus rhythm with sinus arrhythmia Normal ECG When compared with ECG of 14-Sep-2023 17:02, No significant change was found Confirmed by DELFINO CORTES MD ([id number]) on 12/27/2023 12:16:51 PM Test Reason : STAT Location : 0 : ED EDH29 Overread By : DELFINO CORTES MD Edited By : DELFINO CORTES MD Referred By : , Acquired by : [id number], [facility] ED NOTEon 12-26-2023 ED NOTE HNO ID: [id number] Author: EVAN CHAUDHARI Medic Service: ? Author Type: Business Practices Supervisor and Portable Machine Sander Type: ED Notes Filed: 12/26/2023 23:29 Note Text: Pt threw cheeze its across the room. Pt asked for urinal. Pt tprovided with urinal. Pt picking up cheese its when told to. Pt appears to be getting agitated from noises from outside the room. Rn notified [facility] ED NOTE HNO ID: [id number] Author: EVAN CHAUDHARI Medic Service: ? Author Type: Business Practices Supervisor and Portable Machine Sander Type: ED Notes Filed: 12/26/2023 22:58 Note [...] ideas but remains calm and cooperative. [facility] ED NOTE HNO ID: [id number] Author: MARTITA ECKERT, AZAEL Service: ? Author Type: Registered Nurse Type: ED Notes Filed: 12/26/2023 22:47 Note Text: Pt diminished capacity hold at this time, pt changed into yellow gown, belongings secured with security, room cleared out per protocol, sitter at bedside, safety maintained. [facility] ED NOTE HNO ID: [id number] Author: SHANE LANDA Medic Service: ? Author Type: Business Practices Supervisor and Portable Machine Sander Type: ED Notes Filed: 12/26/2023 22:19 Note Text: Bed: 29-ED Expected date: Expected time: Means of arrival: Comments: Jacqui [facility] ED PROV NOTEon 12-26-2023 ED PROV NOTE HNO ID: [id number] Author: TUTU RILEY DO Service: ? Author [...] date: Asthma No date: Bipolar 1 disorder ([facility]) 01/30/2020: GERD without esophagitis No date: Psychiatric [...] Capacity (This order expires after 24 hours) [[id number]] Continuous x 24 hours Expiring References: Against Medical Advice (AMA) Policy Patients Without Surrogate Standard Operating Procedure Against Medical Advice (AMA) Policy ([place] Only) Question Answer Comment I have evaluated [...] the e (more content not included)... Normal [facility] Ethanol SerPl-mCncon 024 Ethanol [Mass/Vol] mg/dL Normal <0.010 [facility] Comment on above: Order Comment: Speci men Type: URINE SPECIMEN [facility] Address: [address] [place] [address] Performed By: #### U TOX2 #### [facility] CLIA [id number] [facility] [place] [address] [place] TOXICOLOGY SCREEN, ROUTINE U RINEon 12-26-2023 Amphetamines Confirm (U) [Mass/Vol] Positive Abnormal Negative [facility] Comment on above: Order Comment: Speci men Type: URINE SPECIMEN [facility] Address: [address] [place] [address] Result Comment: Cuto ff threshold at 1000 ng/mL. Performed By: #### U TOX2 #### [facility] CLIA [id number] [address] [place] [address] [place] BARBITURATES, URINE Negative Normal Negative [facility] Comment on above: Order Comment: Speci men Type: URINE SPECIMEN [facility] Address: [address] [place] [address] Result Comment: Cuto ff threshold at 200 ng/mL. Performed By: #### U TOX2 #### [facility] CLIA [id number] [address] [place] [address] [place] BENZODIAZEPINES, UR Negative Normal Negative [facility] Comment on above: Order Comment: Speci men Type: URINE SPECIMEN [facility] Address: [address] [place] [address] Result Comment: Cuto ff threshold at 200 ng/mL. Performed By: #### U TOX2 #### [facility] CLIA [id number] [address] [place] [address] [place] Cannabinoids Screen Ql (U) Positive Abnormal Negative [facility] Comment on above: Order Comment: Speci men Type: URINE SPECIMEN [facility] Address: [address] [place] [address] Result Comment: Cuto ff threshold at 50 ng/mL. Performed By: #### U TOX2 #### [facility] CLIA [id number] [address] [place] [address] [place] Cocaine Ql (U) Positive Abnormal Negative [facility] Comment on above: Order Comment: Speci men Type: URINE SPECIMEN [facility] Address: [address] [place] [address] Result Comment: Cuto ff threshold at 300 ng/mL. Performed By: #### U TOX2 #### [facility] CLIA [id number] [address] [place] [address] [place] Opiates Screen Ql (U) Negative Normal Negative [facility] Comment on above: Order Comment: Speci men Type: URINE SPECIMEN [facility] Address: [address] [place] [address] Result Comment: Cuto ff threshold at 300 ng/mL. Performed By: #### U TOX2 #### [facility] CLIA [id number] [address] [place] [address] [place] Phencyclidine Ql (U) Negative Normal Negative [facility] Comment on above: Order Comment: Speci men Type: URINE SPECIMEN [facility] Address: [address] [place] [address] Result Comment: Cuto ff threshold at 25 ng/mL. Performed By: #### U TOX2 #### [facility] CLIA [id number] [address] [place] [address] [place] Urinalysis complete panel (U )on 12-26-2023 Bacteria LM.HPF (Urine sed) [#/Area] Rare Abnormal None Seen [facility] Comment on above: Order Comment: Speci men Type: URINE SPECIMEN Ordering Facility: [facility] Address: [address] [place] [address] Performed By: #### U TOX2 #### [facility] CLIA [id number] [address] [place] [address] [place] Bilirubin Ql (U) Negative Normal Negative [facility] Comment on above: Order Comment: Speci men Type: URINE SPECIMEN Ordering Facility: [facility] Address: [address] [place] [address] Performed By: #### U TOX2 #### [facility] CLIA [id number] [address] [place] [address] [place] Clarity (Unsp spec) Clear Normal Clear [facility] Comment on above: Order Comment: Speci men Type: URINE SPECIMEN Ordering Facility: [facility] Address: [address] [place] [address] Performed By: #### U TOX2 #### [facility] CLIA [id number] [address] [place] [address] [place] Color (U) Colorless Normal Yellow [facility] Comment on above: Order Comment: Speci men Type: URINE SPECIMEN Ordering Facility: [facility] Address: [address] [place] [address] Performed By: #### U TOX2 #### [facility] CLIA [id number] [address] [place] [address] [place] Epithelial cells LM.HPF (Urine sed) [#/Area] None Seen Normal [facility] Comment on above: Order Comment: Speci men Type: URINE SPECIMEN Ordering Facility: [facility] Address: [address] [place] [address] Performed By: #### U TOX2 #### [facility] CLIA [id number] [address] [place] [address] [place] Glucose Test strip (U) [Mass/Vol] Negative Normal Negative [facility] Comment on above: Order Comment: Speci men Type: URINE SPECIMEN Ordering Facility: [facility] Address: [address] [place] [address] Performed By: #### U TOX2 #### [facility] CLIA [id number] [address] [place] [address] [place] Hemoglobin Ql (U) Negative Normal Negative [facility] Comment on above: Order Comment: Speci men Type: URINE SPECIMEN Ordering Facility: [facility] Address: [address] [place] [address] Performed By: #### U TOX2 #### [facility] CLIA [id number] [address] [place] [address] [place] Ketones Ql (U) Negative Normal Negative [facility] Comment on above: Order Comment: Speci men Type: URINE SPECIMEN Ordering Facility: [facility] Address: [address] [place] [address] Performed By: #### U TOX2 #### [facility] CLIA [id number] [address] [place] [address] [place] Leukocyte esterase Test strip Ql (U) Negative Normal Negative [facility] Comment on above: Order Comment: Speci men Type: URINE SPECIMEN Ordering Facility: [facility] Address: [address] [place] [address] Performed By: #### U TOX2 #### [facility] CLIA [id number] [address] [place] [address] [place] Nitrite Ql (U) Negative Normal Negative [facility] Comment on above: Order Comment: Speci men Type: URINE SPECIMEN Ordering Facility: [facility] Address: [address] [place] [address] Performed By: #### U TOX2 #### [facility] CLIA [id number] [address] [place] [address] [place] pH (U) 7.0 [pH] Normal 5.0-8.0 [facility] Comment on above: Order Comment: Speci men Type: URINE SPECIMEN Ordering Facility: [facility] Address: [address] [place] [address] Performed By: #### U TOX2 #### [facility] CLIA [id number] [address] [place] [address] [place] Protein (U) [Mass/Vol] Negative Normal Negative [facility] Comment on above: Order Comment: Speci men Type: URINE SPECIMEN Ordering Facility: [facility] Address: [address] [place] [address] Performed By: #### U TOX2 #### [facility] CLIA [id number] [address] [place] [address] [place] RBC LM.HPF (Urine sed) [#/Area] 0-3 /HPF Normal 0-3 /HPF [facility] Comment on above: Order Comment: Speci men Type: URINE SPECIMEN Ordering Facility: [facility] Address: [address] [place] [address] Performed By: #### U TOX2 #### [facility] CLIA [id number] [address] [place] [address] [place] Specific gravity (U) [Rel density] <1.005 Low 1.005-1.030 [facility] Comment on above: Order Comment: Speci men Type: URINE SPECIMEN Ordering Facility: [facility] Address: [address] [place] [address] Performed By: #### U TOX2 #### [facility] CLIA [id number] [address] [place] [address] [place] Urobilinogen Ql (U) Negative Normal Negative [facility] Comment on above: Order Comment: Speci men Type: URINE SPECIMEN Ordering Facility: [facility] Address: [address] [place] [address] Performed By: #### U TOX2 #### [facility] CLIA [id number] [address] [place] [address] [place] WBC LM.HPF (Urine sed) [#/Area] 0-5 /HPF Normal 0-5 /HPF [facility] Comment on above: Order Comment: Speci men Type: URINE SPECIMEN Ordering Facility: [facility] Address: [address] [place] [address] Performed By: #### U TOX2 #### [facility] CLIA [id number] [address] [place] [address] [place] ALCOHOL,PLASMAon 11-30-2023 ALCOHOL,PLASMA < 3.0 Normal [facility] Comment on above: Result Comment: < 3 mg/dl NONE DETECTED 50-100 mg/dl MAY SHOW SIGNS OF INTOXICATION 300-500 mg/dl COMATOSE LEVEL Performed By: #### A CHRISTA ROJO #### [facility] [address] [place] [address] BASIC METABOLIC PANELon Anion gap [Moles/Vol] 11.1 mmol/L Normal 11-23 [facility] Comment on above: Performed By: #### A CHRISTA ROJO #### [facility] [address] [place] [address] Calcium [Mass/Vol] 8.8 mg/dL Normal 8.5-10.1 [facility] Comment on above: Performed By: #### A CHRISTA ROJO #### [facility] [address] [place] [address] Chloride [Moles/Vol] 105 mmol/L Normal 98-107 [facility] Comment on above: Performed By: #### A ALIA, BMP #### [facility] [address] [place] [address] CO2 [Moles/Vol] 27.0 mmol/L Normal 21-32 [facility] Comment on above: Performed By: #### A ALIA, BMP #### [facility] [address] [place] [address] Creatinine [Mass/Vol] 1.00 mg/dL Normal 0.7-1.3 [facility] Comment on above: Performed By: #### A ALIA BMP #### [address] [place] [address] GFR > 60.0 [facility] Comment on above: Performed By: #### A ALIA BMP #### [address] [place] [address] GFR AM > 60.0 [facility] Comment on above: Result Comment: THE NORMAL LEVEL OF GFR VARIES ACCORDING TO AGE, SEX, AND BODY SIZE. A GFR LEVEL OF LESS THAN 60 ML/MIN REPRESENTS LOSS OF THE ADULT LEVEL OF NORMAL KIDNEY FUNCTION. Performed By: #### A ALIA BMP #### [address] [place] [address] Glucose [Mass/Vol] 107 mg/dL High 70-100 [facility] Comment on above: Performed By: #### A ALIA, BMP #### [address] [place] [address] Potassium [Moles/Vol] 3.8 mmol/L Normal 3.5-5.1 [facility] Comment on above: Performed By: #### A ALIA, BMP #### [address] [place] [address] Sodium [Moles/Vol] 139 mmol/L Normal 136-145 [facility] Comment on above: Performed By: #### A LC, BMP #### [facility] [address] [place] [address] Urea nitrogen [Mass/Vol] 17.0 mg/dL Normal 7-18 [facility] Comment on above: Performed By: #### A LC, BMP #### [facility] [address] [place] [address] CBC with AUTO DIFFon 024 BAS0 % 0.50 % Normal 0-2 [facility] Comment on above: Performed By: #### C BC #### [facility] [address] [place] [address] Basophils (Bld) [#/Vol] 0.1 10*3/uL Normal 0-0.1 [facility] Comment on above: Performed By: #### C BC #### [facility] [address] [place] [address] Eosinophils (Bld) [#/Vol] 0.4 10*3/uL Normal 0.0-1.80 [facility] Comment on above: Performed By: #### C BC #### [facility] [address] [place] [address] Eosinophils/100 WBC (Bld) 3.2 % Normal 0-8 [facility] Comment on above: Performed By: #### C BC #### [facility] [address] [place] [address] GRAN # 7.4 K/uL Normal 2.2-9.1 [facility] Comment on above: Performed By: #### C BC #### [address] [place] [address] GRAN % 65.2 % Normal 42-80 [facility] Comment on above: Performed By: #### C BC #### [facility] [address] [place] [address] Hematocrit (Bld) [Volume fraction] 39.8 % Low 41.0-53.0 [facility] Comment on above: Performed By: #### C BC #### [facility] [address] [place] [address] Hemoglobin (Bld) [Mass/Vol] 13.3 g/dL Low 14.0-18.0 [facility] Comment on above: Performed By: #### C BC #### [facility] [address] [place] [address] Lymphocytes (Bld) [#/Vol] 2.9 10*3/uL Normal 1.0-4.0 [facility] Comment on above: Performed By: #### C BC #### [facility] [address] [place] [address] Lymphocytes/100 WBC (Bld) 25.0 % Normal 16-48 [facility] Comment on above: Performed By: #### C BC #### [facility] [address] [place] [address] MCV (RBC) [Entitic vol] 86.6 fL Normal 80-97 [facility] Comment on above: Performed By: #### C BC #### [facility] [address] [place] [address] MEAN CORPUSCULAR HGB 29.0 pg Normal 26.0-32.0 [facility] Comment on above: Performed By: #### C BC #### [facility] [address] [place] [address] MEAN CORPUSCULAR HGB CONC 33.4 g/dL Normal 31.0-36.0 [facility] Comment on above: Performed By: #### C BC #### [address] [place] [address] MONO DISTRIB WIDTH 17.47 Normal 0-20 [facility] Comment on above: Result Comment: For ED adult patients suspected of sepsis, MDW<=20.0 does not rule out sepsis or risk of sepsis Performed By: #### C BC #### [address] [place] [address] Monocytes (Bld) [#/Vol] 0.7 10*3/uL Normal 0.1-1.7 [facility] Comment on above: Performed By: #### C BC #### [address] [place] [address] Monocytes/100 WBC (Bld) 6.1 % Normal 3-9 [facility] Comment on above: Performed By: #### C BC #### [address] [place] [address] Platelet mean volume (Bld) [Entitic vol] 8.8 fL Normal 6.4-10.5 [facility] Comment on above: Performed By: #### C BC #### [address] [place] [address] Platelets (Bld) [#/Vol] 232 10*3/uL Normal 140-450 [facility] Comment on above: Performed By: #### C BC #### [address] [place] [address] RBC (Bld) [#/Vol] 4.60 10*6/uL Normal 4.40-6.30 [facility] Comment on above: Performed By: #### C BC #### [address] [place] [address] RED CELL DISTRI WIDTH 15.7 % High 11.0-15.5 [facility] Comment on above: Performed By: #### C BC #### [facility] [address] [place] [address] WBC (Bld) [#/Vol] 11.4 10*3/uL High 4.0-11.0 [facility] Comment on above: Performed By: #### C BC #### [facility] [address] [place] [address] Determination of erythrocyte mean corpuscular volume (MCV)Ordered By: Sylvester Ramirez on 11-30-2023 MCV (RBC) [Entitic vol] 86.6 fL 80-97 [facility] ED.PDOCon 11-30-2023 ED.PDOC MATTY WHITLOCK [id number] Attending provider: [facility] ER [id number] Sylvester Ramirez 1990 33 DOS: 11/30/23 Hx/Exam [...] Dictated Date/Time:11/30/23220 Electronically Signed Date/Time: 11/30/232156 Normal [facility] EGFR non- AmericanOrd ered By: Sylvester Ramirez on 11-30-2023 GFR/1.73 sq M.predicted among non-blacks MDRD (S/P/Bld) [Vol rate/Area] mL/min/{1.73_m2} [facility] Eosinophil percentOrdered By : Sylvester Ramirez on 11-30-2023 Basophils/100 WBC (Bld) 0.50 % 0-2 [facility] Chloride [Moles/Vol] 105 mmol/L 98-107 [facility] Eosinophil percent < 3.0 mg/dL [facility] Comment on above: < 3 mg/dl NONE DETEC [id number] mg/dl MAY SHOW SIGNS OF [id number] mg/dl COMATOSE LEVEL Eosinophils/100 WBC (Bld) 3.2 % 0-8 [facility] Hemoglobin (Bld) [Mass/Vol] 13.3 g/dL Low 14.0-18.0 [facility] Lymphocytes (Bld) [#/Vol] 2.9 10*3/uL 1.0-4.0 [facility] Lymphocytes/100 WBC (Bld) 25.0 % 16-48 [facility] Monocytes (Bld) [#/Vol] 0.7 10*3/uL 0.1-1.7 [facility] Monocytes/100 WBC (Bld) 6.1 % 3-9 [facility] Potassium [Moles/Vol] 3.8 mmol/L 3.5-5.1 [facility] Sodium [Moles/Vol] 139 mmol/L 136-145 [facility] Fluoroscopic guidance for salo mbar puncture (LP)Ordered By: Sylvester Ramirez on 11-30-2023 Fluoroscopic guidance for lumbar puncture (LP) Negative [facility] Basophils (Bld) [#/Vol] 0.1 10*3/uL 0-0.1 [facility] Eosinophils (Bld) [#/Vol] 0.4 10*3/uL 0.0-1.80 [facility] Granulocytes/100 WBC Auto (B ld)Ordered By: Sylvester Ramirez on 11-30-2023 Granulocytes/100 WBC (Bld) 65.2 % 4280 [facility] Laboratory - Chemistry and C hemistry - challengeOrdered By: Sylvester Ramirez on 11-30-2023 Calcium [Mass/Vol] 8.8 mg/dL 8.5-10.1 [facility] CO2 [Moles/Vol] 27.0 mmol/L 32 [facility] Creatinine [Mass/Vol] 1.00 mg/dL 0.7-1.3 [facility] GFR/1.73 sq M.predicted MDRD (S/P/Bld) [Vol rate/Area] mL/min/{1.73_m2} [facility] Comment on above: THE NORMAL LEVEL OF GFR VARIES ACCORDING TO AGE, SEX, AND BODY SIZE. A GFR LEVEL OF LESS THAN 60 ML/MIN REPRESENTS LOSS OF THE ADULT LEVEL OF NORMAL KIDNEY FUNCTION. Glucose [Mass/Vol] 107 mg/dL High 70-100 [facility] Urea nitrogen [Mass/Vol] 17.0 mg/dL 7-18 [facility] - Hematology and Cell countsOrdered By: Sylvester Ramirez on 11-30-2023 Erythrocyte distribution width (RBC) [Ratio] 15.7 % High 11.0-15.5 [facility] Granulocytes (Bld) [#/Vol] 7.4 10*3/uL 2.2-9.1 [facility] Hematocrit (Bld) [Volume fraction] 39.8 % Low 41.0-53.0 [facility] MCH (RBC) [Entitic mass] 29.0 pg 26.0-32.0 [facility] MCHC (RBC) [Mass/Vol] 33.4 g/dL 31.0-36.0 [facility] Platelet mean volume (Bld) [Entitic vol] 8.8 fL 6.4-10.5 [facility] Platelets (Bld) [#/Vol] 232 10*3/uL 140-450 [facility] RBC (Bld) [#/Vol] 4.60 10*6/uL 4.40-6.30 [facility] WBC (Bld) [#/Vol] 11.4 10*3/uL High 4.0-11.0 [facility] Monocyte distribution width [Entitic volume] in Blood by AutomatedOrdered By: Sylvester Ramirez on 11-30-2023 Monocyte distribution width Auto (Bld) [Entitic vol] 17.47 0-20 [facility] Comment on above: For ED adult patient s suspected of sepsis, MDW<=20.0 does not rule out sepsis or risk of sepsis No Panel InformationOrdered By: Sylvester Ramirez on 11-30-2023 Amphetamines Screen Positive High [facility] Comment on above: URINE DRUG SCREENS A RE FOR MEDICAL PURPOSES ONLY.THIS TEST PROVIDES ONLY A PRELIMINARY TEST RESULT. A MORESPECIFIC ALTERNATE CHEMICAL METHOD MUST BE USED IN ORDER TOOBTAIN A CONFIRMED ANALYTICAL RESULT.CONFIRMATION PERFORMED UPON REQUEST Benzodiazepines Screen Negative [facility] Phencyclidine (PCP) Screen Negative [facility] Urine Drug Screen Note See below [facility] Comment on above: Cannabinoids ....... .................... [...] on 11-30-2023 Opiates Ql (Unsp spec) Negative [facility] Serum or plasma anion gapOrd ered By: Sylvester Ramirez on 11-30-2023 Anion gap [Moles/Vol] 11.1 mmol/L 03-19 [facility] Tetrahydrocannabinol [Presen ce] in UrineOrdered By: Sylvester Ramirez on 11-30-2023 Tetrahydrocannabinol Ql (U) Positive [facility] Comment on above: THIS TEST PROVIDES O NLY A PRELIMINARY TEST RESULT. A MORESPECIFIC ALTERNATE CHEMICAL METHOD MUST BE USED IN ORDER TOOBTAIN A CONFIRMED ANALYTICAL RESULT.CONFIRMATION PERFORMED UPON REQUEST URINE DRUG SCREENon 11-30-19 24 AMPHETAMINES Positive Abnormal [facility] Comment on above: Order Comment: What Is Urine Source? [place] Performed By: #### U DRGS ####[address] [address] Other Comment: THIS TEST PROVIDES ONLY A [...] available and canbe ordered separately. BARBITURATES Negative [facility] Comment on above: Order Comment: What Is Urine Source? [place] Performed By: #### U DRGS ####[address] [address] Other Comment: THIS TEST PROVIDES ONLY A [...] and canbe ordered separately. BENZODIAZEPINES Negative Normal [facility] Comment on above: Order Comment: What Is Urine Source? [place] Performed By: #### U DRGS ####[address] [address] Other Comment: THIS TEST PROVIDES ONLY A [...] available and canbe ordered separately. COCAINE Negative [facility] Comment on above: Order Comment: What Is Urine Source? [place] Performed By: #### U DRGS ####[address] [address] Other Comment: THIS TEST PROVIDES ONLY A [...] available and canbe ordered separately. METHADONE Negative Normal [facility] Comment on above: Order Comment: What Is Urine Source? [place] Performed By: #### U DRGS ####[address] [address] Other Comment: THIS TEST PROVIDES ONLY A [...] available and canbe ordered separately. OPIATES Negative Normal [facility] Comment on above: Order Comment: What Is Urine Source? [place] Performed By: #### U DRGS ####[address] [place] [address] Other Comment: THIS TEST PROVIDES ONLY A [...] and canbe ordered separately. PHENCYCLIDINE Negative Normal [facility] Comment on above: Order Comment: What Is Urine Source? [place] Performed By: #### U DRGS ####[address] [place] [address] Other Comment: THIS TEST PROVIDES ONLY A [...] and canbe ordered separately. THC Positive Abnormal [facility] Comment on above: Order Comment: What Is Urine Source? [place] Performed By: #### U DRGS ####[address] [place] [address] Other Comment: THIS TEST PROVIDES ONLY A [...] DRG SCREEN CUT OFF SEE BELOW Normal [facility] Comment on above: Order Comment: What Is Urine Source? [place] Performed By: #### U DRGS ####[address] [address] Other Comment: THIS TEST PROVIDES ONLY A [...] ED NOTEon 09-15-2023 ED NOTE HNO ID: [id number] Author: YUDITH SANFORD, AZAEL Service: ? Author Type: Registered Nurse Type: ED Notes Filed: 09/15/2023 09:47 Note Text: Pts belongings give to transport crew. [facility] ED NOTE HNO ID: [id number] Author: JANAE ZENDEJAS CT Service: ? Author Type: Clinical Portable Machine Sander Type: ED Notes Filed: 09/15/2023 03:06 Note Text: This Tech received report from Wayne Maki. [facility]. Room was cleared prior to this Tech taking over Frequent Observation responsibilities with all items secured in Silver Cart for PT AND Staff Safety. [facility] ED NOTE HNO ID: [id number] Author: RUPA KILPATRICK Medic Service: Emergency Medicine Author Type: Business Practices Supervisor and Portable Machine Sander Type: ED Notes Filed: 09/15/2023 02:29 Note Text: Pt gets up and asks to use trestroom Pt used restroom while under observation through partially opened door, then returned to room Pt then taken to 32 [facility] ED NOTE HNO ID: [id number] Author: GENARO RDZ, AZAEL Service: Abstract Author Type: Registered Nurse Type: ED Notes Filed: 09/15/2023 01:27 Note Text: Intake updated on pt. [facility] ED NOTE HNO ID: [id number] Author: KYLAH TREVIZO RN Service: Emergency Medicine Author Type: Registered Nurse Type: ED Notes Filed: 09/15/2023 00:42 Note Text: [facility] states 0930 ETA Normal [facility] CBC panel Auto (Bld)on 09-13 Erythrocyte distribution width (RBC) [Ratio] 13.4 % Normal 11.5-15.0 [facility] Comment on above: Order Comment: Speci men Type: BLOOD SPECIMEN Ordering Facility: [facility] Address: [address] [place] [address] Performed By: #### 5 8410-2 #### [facility] CLIA [id number] [address] [place] [address] [place] Hematocrit (Bld) [Volume fraction] 39.0 % Normal 39.0-51.0 [facility] Comment on above: Order Comment: Speci men Type: BLOOD SPECIMEN Ordering Facility: [facility] Address: [address] [place] [address] Performed By: #### 5 8410-2 #### [facility] CLIA [id number] [address] [place] [address] [place] Hemoglobin (Bld) [Mass/Vol] 12.9 g/dL Low 13.0-17.0 [facility] Comment on above: Order Comment: Speci men Type: BLOOD SPECIMEN Ordering Facility: [facility] Address: [address] [place] [address] Performed By: #### 5 8410-2 #### [facility] CLIA [id number] [address] [place] [address] [place] MCH (RBC) [Entitic mass] 28.6 pg Normal 26.0-34.0 [facility] Comment on above: Order Comment: Speci men Type: BLOOD SPECIMEN Ordering Facility: [facility] Address: [address] [place] [address] Performed By: #### 5 8410-2 #### [facility] CLIA [id number] [address] [place] [address] [place] MCHC (RBC) [Mass/Vol] 33.1 g/dL Normal 30.5-36.0 [facility] Comment on above: Order Comment: Speci men Type: BLOOD SPECIMEN Ordering Facility: [facility] Address: [address] [place] [address] Performed By: #### 5 8410-2 #### [facility] CLIA [id number] [address] [place] [address] [place] MCV (RBC) [Entitic vol] 86.5 fL Normal 80.0-100.0 [facility] Comment on above: Order Comment: Speci men Type: BLOOD SPECIMEN Ordering Facility: [facility] Address: [address] [place] [address] Performed By: #### 5 8410-2 #### [facility] CLIA [id number] [address] [place] [address] [place] Nucleated RBC (Bld) [#/Vol] 10*3/uL Normal <0.01 [facility] Comment on above: Order Comment: Speci men Type: BLOOD SPECIMEN Ordering Facility: [facility] Address: [address] [place] [address] Performed By: #### 5 8410-2 #### [facility] CLIA [id number] [address] [place] [address] [place] Platelet mean volume (Bld) [Entitic vol] 10.0 fL Normal 9.0-12.7 [facility] Comment on above: Order Comment: Speci men Type: BLOOD SPECIMEN Ordering Facility: [facility] Address: [address] [place] [address] Performed By: #### 5 8410-2 #### [facility] CLIA [id number] [address] [place] [address] [place] Platelets (Bld) [#/Vol] 322 10*3/uL Normal 150-400 [facility] Comment on above: Order Comment: Speci men Type: BLOOD SPECIMEN Ordering Facility: [facility] Address: [address] [place] [address] Performed By: #### 5 8410-2 #### [facility] CLIA [id number] [address] [place] [address] [place] RBC (Bld) [#/Vol] 4.51 10*6/uL Normal 4.20-6.00 [facility] Comment on above: Order Comment: Speci men Type: BLOOD SPECIMEN Ordering Facility: [facility] Address: [address] [place], [place] [id number] Performed By: #### 5 8410-2 #### [facility] CLIA [id number] [address] [place] [address] [place] [facility] [place] WBC (Bld) [#/Vol] 13.03 10*3/uL High 3.70-11.00 [facility] Comment on above: Order Comment: Speci men Type: BLOOD SPECIMEN Ordering Facility: [facility] Address: [address] [place] [address] Performed By: #### 5 8410-2 #### [facility] CLIA [id number] [address] [place] [address] Comprehensive metabolic 2000 panelon 09-14-2023 Albumin [Mass/Vol] 3.8 g/dL Normal 3.2-5.0 [facility] Comment on above: Order Comment: Speci men Type: BLOOD SPECIMEN Ordering Facility: [facility] Address: [address] [place], [place] [id number] Performed By: #### 2 4323-8, 5643-2 #### [facility] CLIA [id number] [address] [place] [address] [place] ALP [Catalytic activity/Vol] 70 U/L Normal 45-117 [facility] Comment on above: Order Comment: Speci men Type: BLOOD SPECIMEN Ordering Facility: [facility] Address: [address] [place], [place] [id number] Performed By: #### 2 4323-8, 5643-2 #### [facility] CLIA [id number] [address] [place] [address] [place] [facility] ALT [Catalytic activity/Vol] 31 U/L Normal 13-61 [facility] Comment on above: Order Comment: Speci men Type: BLOOD SPECIMEN Ordering Facility: [facility] Address: [address] [place] [address] Result Comment: Resu lts may be falsely depressed after the administration of Sulfasalazine and/or Sulfapyridine. Performed By: #### 2 4323-8, 5643-2 #### [facility] CLIA [id number] [address] [place] [address] [place] Anion gap [Moles/Vol] 6 mmol/L Normal 5-16 [facility] Comment on above: Order Comment: Speci men Type: BLOOD SPECIMEN Ordering Facility: [facility] Address: [address] [place] [address] Performed By: #### 2 4323-8, 5643-2 #### [facility] CLIA [id number] [address] [place] [address] [place] AST [Catalytic activity/Vol] 44 U/L High 8-34 [facility] Comment on above: Order Comment: Serinai abdi Type: BLOOD SPECIMEN Ordering Facility: [facility] Address: [address] [place] [address] Result Comment: Resu lts may be falsely depressed after the administration of Sulfasalazine and/or Sulfapyridine. Performed By: #### 2 4323-8, 5643-2 #### [facility] CLIA [id number] [address] [place] [address] [place] Bilirubin [Mass/Vol] 0.5 mg/dL Normal 0.2-1.0 [facility] Comment on above: Order Comment: Serinai men Type: BLOOD SPECIMEN Ordering Facility: [facility] Address: [address] [place] [address] Performed By: #### 2 4323-8, 5643-2 #### [facility] CLIA [id number] [address] [place] [address] [place] Calcium [Mass/Vol] 9.5 mg/dL Normal 8.5-10.5 [facility] Comment on above: Order Comment: Serinai men Type: BLOOD SPECIMEN Ordering Facility: [facility] Address: [address] [place] [address] Performed By: #### 2 4323-8, 5643-2 #### [facility] CLIA [id number] [address] [place] [address] [place] Chloride [Moles/Vol] 109 mmol/L High 98-107 [facility] Comment on above: Order Comment: Speci men Type: BLOOD SPECIMEN Ordering Facility: [facility] Address: [address] [place] [address] Performed By: #### 2 4323-8, 5643-2 #### [facility] CLIA [id number] [address] [place], [place] [address] [place] CO2 [Moles/Vol] 26 mmol/L Normal 21-32 [facility] Comment on above: Order Comment: Speci men Type: BLOOD SPECIMEN Ordering Facility: [facility] Address: [address] [place] [address] Performed By: #### 2 4323-8, 5643-2 #### [facility] CLIA [id number] [address] [place], [place] [address] [place] Creatinine [Mass/Vol] 0.81 mg/dL Normal 0.50-1.40 [facility] Comment on above: Order Comment: Speci men Type: BLOOD SPECIMEN Ordering Facility: [facility] Address: [address] [place] [address] Result Comment: Cathleen ents receiving either N-Acetylcysteine (NAC) or Metamizole prior to venipuncture, may have falsely depressed results. Performed By: #### 2 4323-8, 5643-2 #### [facility] CLIA [id number] [address] [place] [address] [place] Creatinine and Glomerular filtration rate.predicted panel (S/P/Bld) 120 mL/min/1.73m??? Normal >=60 [facility] Comment on above: Order Comment: Speci men Type: BLOOD SPECIMEN Ordering Facility: [facility] Address: [address] [place] [address] Result Comment: Kenyetta mated Glomerular Filtration Rate [...] Performed By: #### 2 4323-8, 5643-2 #### [facility] CLIA [id number] [address] [place], [place] [address] [place] Glucose [Mass/Vol] 92 mg/dL Normal 70-100 [facility] Comment on above: Order Comment: Jo patton Type: BLOOD SPECIMEN Ordering Facility: [facility] Address: [address] [place] [address] Result Comment: The [place] [employer] (ADA) provides guidance for cutoff [...] Standards of Medical Care in Diabetes 2016, [place] [employer]. Diabetes Care. 2016.39(Suppl 1). Results may be falsely elevated after the administration of Sulfapyridine. Results may be falsely depressed after the administration of Sulfasalazine. Performed By: #### 2 4323-8, 5643-2 #### [facility] CLIA [id number] [address] [place], [place] [address] [place] Potassium [Moles/Vol] 3.8 mmol/L Normal 3.5-5.1 [facility] Comment on above: Order Comment: Jo patton Type: BLOOD SPECIMEN Ordering Facility: [facility] Address: [address] [place] [address] Performed By: #### 2 4323-8, 5643-2 #### [facility] CLIA [id number] [address] [place] [address] [place] Protein [Mass/Vol] 7.1 g/dL Normal 6.0-8.5 [facility] Comment on above: Order Comment: Speci men Type: BLOOD SPECIMEN Ordering Facility: [facility] Address: [address] [place] [address] Performed By: #### 2 4323-8, 5643-2 #### [facility] CLIA [id number] [address] [place] [address] [place] Sodium [Moles/Vol] 141 mmol/L Normal 136-145 [facility] Comment on above: Order Comment: Speci men Type: BLOOD SPECIMEN Ordering Facility: [facility] Address: [address] [place] [address] Performed By: #### 2 4323-8, 5643-2 #### [facility] CLIA [id number] [address] [place] [address] [place] Urea nitrogen [Mass/Vol] 12 mg/dL Normal 7-26 [facility] Comment on above: Order Comment: Speci men Type: BLOOD SPECIMEN Ordering Facility: [facility] Address: [address] [place] [address] Performed By: #### 2 4323-8, 5643-2 #### [facility] CLIA [id number] [address] [place], [place] [address] [place] ECG COMPLETEon 09-14-2023 ECG COMPLETE Ventricular Rate : 9 3 BPM Atrial Rate : 93 BPM P-R Interval : 138 ms QRS Duration : 98 ms Q-T Interval : 356 ms QTC Calculation(Bazett) : 442 ms Calculated P Dover : 84 degrees Calculated R [place] : 77 degrees Calculated T [place] : 50 degrees Normal sinus rhythm Incomplete right bundle branch block Borderline ECG No previous ECGs available Confirmed by DELFINO CORTES MD ([id number]) on 09/14/2023 11:32:14 PM NAME : MATTY WHITLOCK PID : [id number] : 1990 Gender : Male Race : ORD : [id number] Procedure Date : Sep 14 2023 17:02:20 Edit Date : Sep 14 2023 23:32:16 Diagnosis: Normal sinus rhythm Incomplete right bundle branch block Borderline ECG No previous ECGs available Confirmed by DELFINO CORTES MD ([id number]) on 09/14/2023 11:32:14 PM Test Reason : STAT Location : 0 : ED EDH04 Overread By : DELFINO CORTES MD Edited By : DELFINO CORTES MD Referred By : , Acquired by : ANGELLA, [facility] ED NOTEon 09-14-2023 ED NOTE HNO ID: [id number] Author: GENARO RDZ RN Service: Abstract Author Type: Registered Nurse Type: ED Notes Filed: 09/14/2023 22:41 Note Text: Report called to AZAEL Link at [facility] ED NOTE HNO ID: [id number] Author: BONNIE GREENE Tech Service: ? Author Type: Portable Machine Sander Type: ED Notes Filed: 09/14/2023 22:35 Note Text: THIS TECH TOOK OVER SITTING WITH PT. PT IS LAYING IN BED, CHEST IS RISING AND FALLING. PT IS SAFE AT THIS TIME. I WILL CONTINUE TO SIT UNTIL TOLD OTHERWISE. [facility] ED NOTE HNO ID: [id number] Author: GENARO RDZ RN Service: Abstract Author Type: Registered Nurse Type: ED Notes Filed: 09/14/2023 22:12 Note Text: Pt resting in bed [facility] ED NOTE HNO ID: [id number] Author: GENARO RDZ RN Service: Abstract Author Type: Registered Nurse Type: ED Notes Filed: 09/14/2023 22:12 Note Text: Pt acting agitated. Passing the room, shouting, and not following request. MD notified and medications ordered. Pt accepting medications without difficulty. PD at bedside. [facility] ED NOTE HNO ID: [id number] Author: ADITYA CORDOVA RN Service: Immunology Author Type: Registered Nurse Type: ED Notes Filed: 09/14/2023 21:06 Note Text: Attempted to call report 3x to [facility] for this pt. [employer] whom answered the phone (not nurse taking report) said they will just receive a surprise pt because they are not answering the phones to take report. [facility] ED NOTE HNO ID: [id number] Author: ADITYA CORDOVA RN Service: Immunology Author Type: Registered Nurse Type: ED Notes Filed: 09/14/2023 18:42 Note Text: Pt presents with EMS for flight of ideas and manic episode. Per EMS pt was outside of [facility] and is unable to go back to [facility] [place]. Upon pt arrival pt is speaking with [...] me. Pt is alert and oriented x4. [facility] ED PROV NOTEon 09-14-2023 ED PROV NOTE HNO ID: [id number] Author: WES STEVENS DO Service: Emergency Medicine Author Type: Physician Type: ED Provider Notes Filed: 09/14/2023 21:12 Note Text: EMERGENCY DEPARTMENT NOTE [facility] Matty Whitlock Room: [facility]/-ED HISTORY OF PRESENT ILLNESS: Matty Whitlock is [...] Marian (*) Ketones, Urine Trace (*) Specific Agenda, Ur >1.030 (*) Protein, Urine 1+ (*) [...] for a (more content not included)... Normal [facility] Ethanol [facility] Ethanol [Mass/Vol] mg/dL Normal <0.010 [facility] Comment on above: Order Comment: Speci men Type: BLOOD SPECIMEN Ordering Facility: [facility] Address: [address] [place] [address] Performed By: #### 2 4323-8, 5643-2 #### [facility] CLIA [id number] [address] [place] [address] [place] SARS-CoV-2 RNA Resp Ql DINAH+p robeon 09-14-2023 SARS-CoV-2 (COVID-19) RNA DINAH+probe Ql (Resp) COVID 19 RESULT: Not detected The method used is RT-PCR or an equivalent NAAT method. Reference Range(the expected result in uninfected individuals): Not detected Normal [facility] Comment on above: Performed By: #### 9 4500-6 #### [facility] CLIA [id number] [address] [place] [address] [place] TOXICOLOGY SCREEN, ROUTINE U RINEon 09-14-2023 Amphetamines Confirm (U) [Mass/Vol] Positive Abnormal Negative [facility] Comment on above: Order Comment: Speci men Type: URINE SPECIMEN Ordering Facility: [facility] Address: [address] [place] [address] Result Comment: Cuto ff threshold at 1000 ng/mL. Performed By: #### U TOX2 #### [facility] CLIA [id number] [address] [place] [address] [place] BARBITURATES, URINE Negative Normal Negative [facility] Comment on above: Order Comment: Speci men Type: URINE SPECIMEN Ordering Facility: [facility] Address: [address] [place] [address] Result Comment: Cuto ff threshold at 200 ng/mL. Performed By: #### U TOX2 #### [facility] CLIA [id number] [address] [place] [address] [place] BENZODIAZEPINES, UR Negative Normal Negative [facility] Comment on above: Order Comment: Speci men Type: URINE SPECIMEN Ordering Facility: [facility] Address: [address] [place] [address] Result Comment: Cuto ff threshold at 200 ng/mL. Performed By: #### U TOX2 #### [facility] CLIA [id number] [address] [place] [address] [place] Cannabinoids Screen Ql (U) Positive Abnormal Negative [facility] Comment on above: Order Comment: Speci men Type: URINE SPECIMEN Ordering Facility: [facility] Address: [address] [place] [address] Result Comment: Cuto ff threshold at 50 ng/mL. Performed By: #### U TOX2 #### [facility] CLIA [id number] [address] [place] [address] [place] Cocaine Ql (U) Negative Normal Negative [facility] Comment on above: Order Comment: Speci men Type: URINE SPECIMEN Ordering Facility: [facility] Address: [address] [place] [address] Result Comment: Cuto ff threshold at 300 ng/mL. Performed By: #### U TOX2 #### [facility] CLIA [id number] [address] [place] [address] [place] Opiates Screen Ql (U) Negative Normal Negative [facility] Comment on above: Order Comment: Speci men Type: URINE SPECIMEN Ordering Facility: [facility] Address: [address] [place] [address] Result Comment: Cuto ff threshold at 300 ng/mL. Performed By: #### U TOX2 #### [facility] CLIA [id number] [address] [place] [address] [place] Phencyclidine Ql (U) Negative Normal Negative [facility] Comment on above: Order Comment: Speci men Type: URINE SPECIMEN Ordering Facility: [facility] Address: [address] [place] [address] Result Comment: Cuto ff threshold at 25 ng/mL. Performed By: #### U TOX2 #### [facility] CLIA [id number] [address] [place] [address] [place] Urinalysis complete panel (U )on 09-14-2023 Bacteria LM.HPF (Urine sed) [#/Area] Rare Abnormal None Seen [facility] Comment on above: Order Comment: Speci men Type: URINE SPECIMEN Ordering Facility: [facility] Address: [address] [place] [address] Performed By: #### 2 4356-8 #### [facility] CLIA [id number] [address] [place] [address] [place] Bilirubin Ql (U) Negative Normal Negative [facility] Comment on above: Order Comment: Speci men Type: URINE SPECIMEN Ordering Facility: [facility] Address: [address] [place] [address] Performed By: #### 2 4356-8 #### [facility] CLIA [id number] [address] [place] [address] [place] Clarity (Unsp spec) Clear Normal Clear [facility] Comment on above: Order Comment: Speci men Type: URINE SPECIMEN Ordering Facility: [facility] Address: [address] [place] [address] Performed By: #### 2 4356-8 #### [facility] CLIA [id number] [address] [place] [address] Color (U) Marian Abnormal Yellow [facility] Comment on above: Order Comment: Speci men Type: URINE SPECIMEN Ordering Facility: [facility] Address: [address] [place] [address] Performed By: #### 2 4356-8 #### [facility] CLIA [id number] [address] [place] [address] [place] Epithelial cells LM.HPF (Urine sed) [#/Area] Few Normal [facility] Comment on above: Order Comment: Speci men Type: URINE SPECIMEN Ordering Facility: [facility] Address: [address] [place] [address] Performed By: #### 2 4356-8 #### [facility] CLIA [id number] [address] [place] [address] [place] Glucose Test strip (U) [Mass/Vol] Negative Normal Negative [facility] Comment on above: Order Comment: Speci men Type: URINE SPECIMEN Ordering Facility: [facility] Address: [address] [place] [address] Performed By: #### 2 4356-8 #### [facility] CLIA [id number] [address] [place] [address] [place] Granular casts (Urine sed) [#/Area] /[LPF] Abnormal 0 /LPF [facility] Comment on above: Order Comment: Speci men Type: URINE SPECIMEN Ordering Facility: [facility] Address: [address] [place] [address] Performed By: #### 2 4356-8 #### [facility] CLIA [id number] [address] [place] [address] STATES OF [facility] Hemoglobin Ql (U) Negative Normal Negative [facility] Comment on above: Order Comment: Speci men Type: URINE SPECIMEN Ordering Facility: [facility] Address: [address] [place] [address] Performed By: #### 2 4356-8 #### [facility] CLIA [id number] [address] [place] [address] Hyaline casts (Urine sed) [#/Area] 4-10 /LPF Abnormal 0 /LPF [facility] Comment on above: Order Comment: Speci men Type: URINE SPECIMEN Ordering Facility: [facility] Address: [address] [place] [address] Performed By: #### 2 4356-8 #### [facility] CLIA [id number] [address] [place] [address] [place] [facility] Ketones Ql (U) Trace Abnormal Negative [facility] Comment on above: Order Comment: Speci men Type: URINE SPECIMEN Ordering Facility: [facility] Address: [address] [place] [address] Performed By: #### 2 4356-8 #### [facility] CLIA [id number] [address] [place] [address] Leukocyte esterase Test strip Ql (U) Negative Normal Negative [facility] Comment on above: Order Comment: Speci men Type: URINE SPECIMEN Ordering Facility: [facility] Address: [address] [place] [address] Performed By: #### 2 4356-8 #### [facility] CLIA [id number] [address] [place] [address] [place] Nitrite Ql (U) Negative Normal Negative [facility] Comment on above: Order Comment: Speci men Type: URINE SPECIMEN Ordering Facility: [facility] Address: [address] [place] [address] Performed By: #### 2 4356-8 #### [facility] CLIA [id number] [address] [place] [address] [place] pH (U) 5.0 [pH] Normal 5.0-8.0 [facility] Comment on above: Order Comment: Speci men Type: URINE SPECIMEN Ordering Facility: [facility] Address: [address] [place] [address] Performed By: #### 2 4356-8 #### [facility] CLIA [id number] [address] [place] [address] [place] Protein (U) [Mass/Vol] 1+ Abnormal Negative [facility] Comment on above: Order Comment: Speci men Type: URINE SPECIMEN Ordering Facility: [facility] Address: [address] [place] [address] Performed By: #### 2 4356-8 #### [facility] CLIA [id number] [address] [place] [address] [place] RBC LM.HPF (Urine sed) [#/Area] 3-5 /HPF Abnormal 0-3 /HPF [facility] Comment on above: Order Comment: Speci men Type: URINE SPECIMEN Ordering Facility: [facility] Address: [address] [place] [address] Performed By: #### 2 4356-8 #### [facility] CLIA [id number] [address] [place] [address] [place] Specific gravity (U) [Rel density] >1.030 High 1.005-1.030 [facility] Comment on above: Order Comment: Speci men Type: URINE SPECIMEN Ordering Facility: [facility] Address: [address] [place] [address] Performed By: #### 2 4356-8 #### [facility] CLIA [id number] [address] [place] [address] Urobilinogen Ql (U) 2+ Abnormal Negative [facility] Comment on above: Order Comment: Speci men Type: URINE SPECIMEN Ordering Facility: [facility] Address: [address] [place] [address] Performed By: #### 2 4356-8 #### [facility] CLIA [id number] [address] [place] [address] [place] WBC LM.HPF (Urine sed) [#/Area] 0-5 /HPF Normal 0-5 /HPF [facility] Comment on above: Order Comment: Speci men Type: URINE SPECIMEN Ordering Facility: [facility] Address: [address] [place] [address] Performed By: #### 2 4356-8 #### [facility] CLIA [id number] [address] [place] [address] ED NOTEon 09-01-2023 ED NOTE HNO ID: [id number] Author: ALTAF ROBLEDO RN Service: Emergency Medicine Author Type: Registered Nurse Type: ED Notes Filed: 09/01/2023 09:52 Note Text: Pt resting in bed. Pt was given oatmeal, orange juice, applesauce and a cookie. Pt denies any needs at this time. Normal [facility] ED NOTE HNO ID: [id number] Author: SIRI NEWTON, AZAEL Service: Emergency Medicine Author Type: Registered Nurse Type: ED Notes Filed: 09/01/2023 07:35 Note Text: Pt stated [place] [facility] the last 2 days and needs somewhere to stay; Stated was taken to [facility] last night and was discharged at 0600 this am and then came here; Stated feels dizzy due to not eating Normal [facility] ED PROV NOTEon 09-01-2023 ED PROV NOTE HNO ID: [id number] Author: MARLENA HOFFMAN MD Service: Emergency Medicine [...] he called EMS last night presented to [facility]'s emergency department. The records are not [...] a list of different locations from the [facility] facility but does not have anywhere [...] deficit present. (more content not included)... Normal [facility] Acetaminophenon 08-11-2023 Acetaminophen [Mass/Vol] ug/mL Normal 10.0-30.0 [facility] Comment on above: Performed By: #### 3 298-7 #### IMTIAZ Mendoza ([id number]) [facility] ([facility]) [address] [place] [address] Acetaminophen levelon 2023 Acetaminophen [Mass/Vol] ug/mL 10.0 - 30.0 ug/mL [facility] CBC W Auto Differential pane l (Bld)on 08-11-2023 Basophils (Bld) [#/Vol] 0.05 x10*3/uL Normal 0.00-0.10 [facility] Comment on above: Performed By: #### 5 7021-8 #### IMTIAZ Mendoza ([id number]) [facility] ([facility]) [address] [place] [address] Basophils/100 WBC (Bld) 0.3 % Normal 0.0-2.0 [facility] Comment on above: Performed By: #### 5 7021-8 #### IMTIAZ Mendoza ([id number]) [facility] ([facility]) [address] [place] [address] Eosinophils (Bld) [#/Vol] 0.22 x10*3/uL Normal 0.00-0.70 [facility] Comment on above: Performed By: #### 5 7021-8 #### IMTIAZ Mendoza ([id number]) [facility] ([facility]) [address] [place] [address] Eosinophils/100 WBC (Bld) 1.5 % Normal 0.0-6.0 [facility] Comment on above: Performed By: #### 5 7021-8 #### IMTIAZ Mendoza ([id number]) [facility] ([facility]) [address] [place] [address] Erythrocyte distribution width (RBC) [Ratio] 14.9 % High 11.5-14.5 [facility] Comment on above: Performed By: #### 5 7021-8 #### IMTIAZ Mendoza ([id number]) [facility] ([facility]) [address] [place] [address] Hematocrit (Bld) [Volume fraction] 46.5 % Normal 41.0-52.0 [facility] Comment on above: Performed By: #### 5 7021-8 #### IMTIAZ Mendoza ([id number]) [facility] ([facility]) [address] [place] [address] Hemoglobin (Bld) [Mass/Vol] 15.3 g/dL Normal 13.5-17.5 [facility] Comment on above: Performed By: #### 5 7021-8 #### IMTIAZ Mendoza ([id number]) [facility] ([facility]) [address] [place] [address] Immature granulocytes (Bld) [#/Vol] 0.07 x10*3/uL Normal 0.00-0.70 [facility] Comment on above: Performed By: #### 5 7021-8 #### IMTIAZ Mendoza ([id number]) [facility] ([facility]) [address] [place] [address] Immature granulocytes/100 WBC (Bld) 0.5 % Normal 0.0-0.9 [facility] Comment on above: Result Comment: Sailaja ture Granulocyte Count (IG) includes promyelocytes, myelocytes and metamyelocytes but does not include bands. Percent differential counts (%) should be interpreted in the context of the absolute cell counts (cells/UL). Performed By: #### 5 7021-8 #### IMTIAZ Mendoza ([id number]) [facility] ([facility]) [address] [place] [address] Lymphocytes (Bld) [#/Vol] 3.51 x10*3/uL Normal 1.20-4.80 [facility] Comment on above: Performed By: #### 5 7021-8 #### IMTIAZ Mendoza ([id number]) [facility] ([facility]) [address] [place] [address]11[address] Lymphocytes/100 WBC (Bld) 23.4 % Normal 13.0-44.0 [facility] Comment on above: Performed By: #### 5 7021-8 #### IMTIAZ Mendoza ([id number]) [facility] ([facility]) [address] [place] [address] MCH (RBC) [Entitic mass] 28.1 pg Normal 26.0-34.0 [facility] Comment on above: Performed By: #### 5 7021-8 #### IMTIAZ Mendoza ([id number]) [facility] ([facility]) [address] [place] [address] MCHC (RBC) [Mass/Vol] 32.9 g/dL Normal 32.0-36.0 [facility] Comment on above: Performed By: #### 5 7021-8 #### IMTIAZ Mendoza ([id number]) [facility] ([facility]) [address] [place] [address] MCV (RBC) [Entitic vol] 85 fL Normal 80-100 [facility] Comment on above: Performed By: #### 5 7021-8 #### IMTIAZ Mendoza ([id number]) [facility] ([facility]) [address] [place] [address] Monocytes (Bld) [#/Vol] 0.69 x10*3/uL Normal 0.10-1.00 [facility] Comment on above: Performed By: #### 5 7021-8 #### IMTIAZ Mendoza ([id number]) [facility] ([facility]) [address] [place] [address] Monocytes/100 WBC (Bld) 4.6 % Normal 2.0-10.0 [facility] Comment on above: Performed By: #### 5 7021-8 #### IMTIAZ Mendoza ([id number]) [facility] ([facility]) [address] [place] [address] Neutrophils (Bld) [#/Vol] 10.47 x10*3/uL High 1.20-7.70 [facility] Comment on above: Result Comment: Perc ent differential counts (%) should be interpreted in the context of the absolute cell counts (cells/uL). Performed By: #### 5 7021-8 #### IMTIAZ Mendoza ([id number]) [facility] ([facility]) [address] [place] [address] Neutrophils/100 WBC (Bld) 69.7 % Normal 40.0-80.0 [facility] Comment on above: Performed By: #### 5 7021-8 #### IMTIAZ Mendoza ([id number]) [facility] ([facility]) [address] [place] [address] Nucleated RBC/100 WBC (Bld) [Ratio] 0.0 /100 WBCs Normal 0.0-0.0 [facility] Comment on above: Performed By: #### 5 7021-8 #### IMTIAZ Mendoza ([id number]) [facility] ([facility]) [address] [place] [address] Platelets (Bld) [#/Vol] 384 x10*3/uL Normal 150-450 [facility] Comment on above: Performed By: #### 5 7021-8 #### IMTIAZ Mendoza ([id number]) [facility] ([facility]) [address] [place] [address] RBC (Bld) [#/Vol] 5.45 x10*6/uL Normal 4.50-5.90 [facility] Comment on above: Performed By: #### 5 7021-8 #### IMTIAZ Mendoza ([id number]) [facility] ([facility]) [address] [place] [address]483 WBC (Bld) [#/Vol] 15.0 x10*3/uL High 4.4-11.3 [facility] Comment on above: Performed By: #### 5 7021-8 #### IMTIAZ Mendoza ([id number]) [facility] ([facility]) [address] [place] [address] Basophils (Bld) [#/Vol] 0.05 10*3/uL [facility] Basophils/100 WBC (Bld) 0.3 % 0.0 - 2.0 % [facility] Eosinophils (Bld) [#/Vol] 0.22 10*3/uL [facility] Eosinophils/100 WBC (Bld) 1.5 % 0.0 - 6.0 % [facility] Erythrocyte distribution width (RBC) [Ratio] 14.9 % High 11.5 - 14.5 % [facility] Hematocrit (Bld) [Volume fraction] 46.5 % 41.0 - 52.0 % [facility] Hemoglobin (Bld) [Mass/Vol] 15.3 g/dL 13.5 - 17.5 g/dL [facility] Immature granulocytes (Bld) [#/Vol] 0.07 10*3/uL [facility] Immature granulocytes/100 WBC (Bld) 0.5 % 0.0 - 0.9 % [facility] Comment on above: Immature Granulocyte Count (IG) includes promyelocytes, myelocytes and metamyelocytes but does not include bands. Percent differential counts (%) should be interpreted in the context of the absolute cell counts (cells/UL). Interpretation and review of laboratory results Abnormal [facility] Lymphocytes (Bld) [#/Vol] 3.51 10*3/uL [facility] Lymphocytes/100 WBC (Bld) 23.4 % 13.0 - 44.0 % [facility] MCH (RBC) [Entitic mass] 28.1 pg 26.0 - 34.0 pg [facility] MCHC (RBC) [Mass/Vol] 32.9 g/dL 32.0 - 36.0 g/dL [facility] MCV (RBC) [Entitic vol] 85 fL 80 - 100 fL [facility] Monocytes (Bld) [#/Vol] 0.69 10*3/uL [facility] Monocytes/100 WBC (Bld) 4.6 % 2.0 - 10.0 % [facility] Neutrophils (Bld) [#/Vol] 10.47 10*3/uL High [facility] Comment on above: Percent differential counts (%) should be interpreted in the context of the absolute cell counts (cells/uL). Neutrophils/100 WBC (Bld) 69.7 % 40.0 - 80.0 % [facility] Nucleated RBC/100 WBC (Bld) [Ratio] 0.0 % [facility] Platelets (Bld) [#/Vol] 384 10*3/uL [facility] RBC (Bld) [#/Vol] 5.45 10*6/uL [facility] WBC (Bld) [#/Vol] 15.0 10*3/uL High [facility] Comprehensive metabolic 2000 panelon 08-11-2023 Albumin BCP dye [Mass/Vol] 4.9 g/dL Normal 3.4-5.0 [facility] Comment on above: Performed By: #### 2 4323-8 #### IMTIAZ Mendoza ([id number]) [facility] ([facility]) [address] [place] [address] ALP [Catalytic activity/Vol] 58 U/L Normal 33-120 [facility] Comment on above: Performed By: #### 2 4323-8 #### IMTIAZ Mendoza ([id number]) [facility] ([facility]) [address] [place] [address] ALT With P-5'-P [Catalytic activity/Vol] 14 U/L Normal 10-52 [facility] Comment on above: Result Comment: Cathleen ents treated with Sulfasalazine may generate falsely decreased results for ALT. Performed By: #### 2 4323-8 #### IMTIAZ Mendoza ([id number]) [facility] ([facility]) [address] [place] [address] Anion gap [Moles/Vol] 23 mmol/L High 10-20 [facility] Comment on above: Performed By: #### 2 4323-8 #### IMTIAZ MORAK Reji ([id number]) [facility] ([facility]) [address] [place] [address] AST With P-5'-P [Catalytic activity/Vol] 22 U/L Normal 9-39 [facility] Comment on above: Performed By: #### 2 4323-8 #### IMTIAZ MORAK Reji ([id number]) [facility] ([facility]) [address] [place] [address] Bilirubin [Mass/Vol] 0.3 mg/dL Normal 0.0-1.2 [facility] Comment on above: Performed By: #### 2 4323-8 #### IMTIAZ Mendoza ([id number]) [facility] ([facility]) [address] [place] [address] Calcium [Mass/Vol] 8.7 mg/dL Normal 8.6-10.3 [facility] Comment on above: Performed By: #### 2 4323-8 #### IMTIAZ Mendoza ([id number]) [facility] ([facility]) [address] [place] [address] Chloride [Moles/Vol] 105 mmol/L Normal 98-107 [facility] Comment on above: Performed By: #### 2 4323-8 #### IMTIAZ Mendoza ([id number]) [facility] ([facility]) [address] [place] [address] CO2 [Moles/Vol] 20 mmol/L Low 21-32 [facility] Comment on above: Performed By: #### 2 4323-8 #### IMTIAZ Mendoza ([id number]) [facility] ([facility]) [address] [place] [address] Creatinine [Mass/Vol] 0.92 mg/dL Normal 0.50-1.30 [facility] Comment on above: Performed By: #### 2 4323-8 #### IMTIAZ Mendoza ([id number]) [facility] ([facility]) [address] [place] [address] GFR/1.73 sq M.predicted MDRD (S/P/Bld) [Vol rate/Area] mL/min/{1.73_m2} Normal >60 [facility] Comment on above: Result Comment: Calc ulations of estimated GFR are performed using the 2020 CKD-EPI Study Refit equation without the race variable for the IDMS-Traceable creatinine methods. https://jasn.asnjournals.org/content//ASN.255668 9552 Performed By: #### 2 4323-8 #### IMTIAZ Mendoza ([id number]) [facility] ([facility]) [address] [place] [address] Glucose [Mass/Vol] 94 mg/dL Normal 74-99 [facility] Comment on above: Performed By: #### 2 4323-8 #### IMTIAZ Mendoza ([id number]) [facility] ([facility]) [address] [place] [address] Potassium [Moles/Vol] 3.5 mmol/L Normal 3.5-5.3 [facility] Comment on above: Performed By: #### 2 4323-8 #### IMTIAZ Mendoza ([id number]) [facility] ([facility]) [address] [place] [address] Protein [Mass/Vol] 7.3 g/dL Normal 6.4-8.2 [facility] Comment on above: Performed By: #### 2 4323-8 #### IMTIAZ Mendoza ([id number]) [facility] ([facility]) [address] [place] [address] Sodium [Moles/Vol] 144 mmol/L Normal 136-145 [facility] Comment on above: Performed By: #### 2 4323-8 #### IMTIAZ Mendoza ([id number]) [facility] ([facility]) [address] [place] [address] Urea nitrogen [Mass/Vol] 8 mg/dL Normal 6-23 [facility] Comment on above: Performed By: #### 2 4323-8 #### IMTIAZ Mendoza ([id number]) [facility] ([facility]) [address] [place] [address] Albumin BCP dye [Mass/Vol] 4.9 g/dL 3.4 - 5.0 g/dL [facility] ALP [Catalytic activity/Vol] 58 U/L 33 - 120 U/L [facility] ALT With P-5'-P [Catalytic activity/Vol] 14 U/L 10 - 52 U/L [facility] Comment on above: Patients treated wit h Sulfasalazine may generate falsely decreased results for ALT. Anion gap [Moles/Vol] 23 mmol/L High 10 - 2 0 mmol/L [facility] AST With P-5'-P [Catalytic activity/Vol] 22 U/L 9 - 39 U/L [facility] Bilirubin [Mass/Vol] 0.3 mg/dL 0.0 - 1 .2 mg/dL [facility] Calcium [Mass/Vol] 8.7 mg/dL 8.6 - 10. 3 mg/dL [facility] Chloride [Moles/Vol] 105 mmol/L 98 - 10 7 mmol/L [facility] CO2 [Moles/Vol] 20 mmol/L Low 21 - 32 mmol/L [facility] Creatinine [Mass/Vol] 0.92 mg/dL 0.50 - 1.30 mg/dL [facility] eGFR - PINF [facility] Comment on above: Calculations of kenyetta mated GFR are performed using the 2020 CKD-EPI Study Refit equation without the race variable for the IDMS-Traceable creatinine methods. https://jasn.asnjournals.org/content/early//ASN.625877 8471 Glucose [Mass/Vol] 94 mg/dL 74 - 99 mg/dL [facility] Interpretation and review of laboratory results Abnormal [facility] Potassium [Moles/Vol] 3.5 mmol/L 3.5 - 5.3 mmol/L [facility] Protein [Mass/Vol] 7.3 g/dL 6.4 - 8.2 g/dL [facility] Sodium [Moles/Vol] 144 mmol/L 136 - 145 mmol/L [facility] Urea nitrogen [Mass/Vol] 8 mg/dL 6 - 23 mg/dL [facility] DRUG SCREEN,URINEon 08-11-19 24 Amphetamines Screen Ql (U) Negative Normal Presumptive Negative [facility] Comment on above: Order Comment: Drug screen results are presumptive and should not be used to assess compliance with prescribed medication. Contact the performing [facility] laboratory to add-on definitive confirmatory testing if [...] By: #### D RUG3 #### IMTIAZ Mendoza ([id number]) [facility] ([facility]) [address] [place], [place] [id number] Barbiturates Screen Ql (U) Negative Normal Presumptive Negative [facility] Comment on above: Order Comment: Drug screen results are presumptive and should not be used to assess compliance with prescribed medication. Contact the performing [facility] laboratory to add-on definitive confirmatory testing if [...] By: #### D RUG3 #### IMTIAZ Mendoza ([id number]) [facility] ([facility]) [address] [place] [address]162 Benzodiazepines Ql (U) Negative Normal Presumptive Negative [facility] Comment on above: Order Comment: Drug screen results are presumptive and should not be used to assess compliance with prescribed medication. Contact the performing [facility] laboratory to add-on definitive confirmatory testing if [...] NG/ML Performed By: #### D RUG3 #### IMTIAZИрина ZARAGOZAPAK M ([id number]) [facility] ([facility]) [address] [place], [place] [address] Benzoylecgonine Screen Ql (U) Negative Normal Presumptive Negative [facility] Comment on above: Order Comment: Drug screen results are presumptive and should not be used to assess compliance with prescribed medication. Contact the performing [facility] laboratory to add-on definitive confirmatory testing if [...] #### D RUG3 #### IMTIAZ STEMPAK M ([id number]) [facility] ([facility]) [address] [place] [address] Cannabinoids Screen Ql (U) Positive Abnormal Presumptive Negative [facility] Comment on above: Order Comment: Drug screen results are presumptive and should not be used to assess compliance with prescribed medication. Contact the performing [facility] laboratory to add-on definitive confirmatory testing if [...] By: #### D RUG3 #### IMTIAZ Mendoza ([id number]) [facility] ([facility]) [address] [place] [address]109 fentaNYL+Norfentanyl Screen Ql (U) Negative Normal Presumptive Negative [facility] Comment on above: Order Comment: Drug screen results are presumptive and should not be used to assess compliance with prescribed medication. Contact the performing [facility] laboratory to add-on definitive confirmatory testing if [...] FF LEVEL: 5 NG/ML Performed By: #### John RUG3 #### IMTIAZ Mendoza ([id number]) [facility] ([facility]) [address] [place] [address] 13170 Methadone Screen Ql (U) Negative Normal Presumptive Negative [facility] Comment on above: Order Comment: Drug screen results are presumptive and should not be used to assess compliance with prescribed medication. Contact the performing [facility] laboratory to add-on definitive confirmatory testing if [...] CUTO FF LEVEL: 150 NG/ML The metabolite U-mipaa-anzcgjyglnbxuq (LAAM) is not detected by this method in concentrations that would be found in the urine of patients on LAAM therapy. Performed By: #### D RUG3 #### IMTIAZ Mendoza ([id number]) [facility] ([facility] [place]) [address] [place] [address] 98989 Opiates Screen Ql (U) Negative Normal Presum ptive Negative [facility] Comment on above: Order Comment: Drug screen results are presumptive and should not be used to assess compliance with prescribed medication. Contact the performing [facility] laboratory to add-on definitive confirmatory testing if [...] By: #### D RUG3 #### IMTIAZ Mendoza ([id number]) [facility] ([facility]) [address] [place] [address] 25180 oxyCODONE+oxyMORphone Screen Ql (U) Negative Normal Presumptive Negative [facility] Comment on above: Order Comment: Drug screen results are presumptive and should not be used to assess compliance with prescribed medication. Contact the performing [facility] laboratory to add-on definitive confirmatory testing if [...] By: #### John RUG3 #### IMTIAZ Mendoza ([id number]) [facility] ([facility]) [address] [place] [address] Phencyclidine Ql (U) Negative Normal Presump tive Negative [facility] Comment on above: Order Comment: Drug screen results are presumptive and should not be used to assess compliance with prescribed medication. Contact the performing [facility] laboratory to add-on definitive confirmatory testing if [...] reported with dextromethorphan. Performed By: #### John LAI3 #### IMTIAZ Mendoza ([id number]) [facility] ([facility]) [address] [place] [address] ECG 12 leadOrdered By: Ruth Bran on 08-11-2023 Atrial Rate 113 BPM [facility] Work Phone: P Dover 74 degrees [facility] Work Phone: P Offset 204 ms [facility] Work Phone: P Onset 144 ms [facility] Work Phone: IA Interval 150 ms [facility] Work Phone: Q Onset 219 ms [facility] Work Phone: QRS Count 19 beats [facility] Work Phone: QRS Duration 92 ms [facility] Work Phone: QT Interval 346 ms [facility] Work Phone: QTC Calculation(Bazett) 474 ms [facility] Work Phone: QTC Fredericia 427 ms [facility] Work Phone: R [place] 71 degrees [facility] Work Phone: T [place] 35 degrees [facility] Work Phone: T Offset 392 ms [facility] Work Phone: Ventricular Rate 113 BPM [facility] Work Phone: [phone] [facility] Work Phone: [phone] ECG 12 leadon 08-11-2023 Sinus tachycardia Possible Left atrial enlargement Borderline ECG No previous ECGs available See ED provider note for full interpretation and clinical correlation Confirmed by Aylin Bran ([id number]) on 08/11/2023 2:33:15 PM Aylin Gayle PA-C - 08/11/2023 Sinus tachycardia Possible Left atrial enlargement Borderline ECG No previous ECGs available See ED provider note for full interpretation and clinical correlation Confirmed by Aylin Bran ([id number]) on 08/11/2023 2:33:15 PM [facility] Work Phone: ECG 12-LEADon 08-11-2023 ECG 12-LEAD Ventricular Rate 113 Atrial Rate 113 P-R Interval 150 QRS Duration 92 Q-T Interval 346 QTC Calculation(Bazett) 474 P Dover 74 R Dover 71 T Dover 35 QRS Count 19 Q Onset 219 P Onset 144 P Offset 204 T Offset 392 QTC Fredericia 427 Diagnosis Sinus tachycardia Possible Left atrial enlargement Borderline ECG No previous ECGs available See ED provider note for full interpretation and clinical correlation Confirmed by Aylin Bran ([id number]) on 08/11/2023 2:33:15 PM Normal [facility] Ethanolon 08-11-2023 Ethanol [Mass/Vol] 77 mg/dL High <=10 [facility] Comment on above: Result Comment: For medical use only. Performed By: #### 5 643-2 #### IMTIAZ Mendoza ([id number]) [facility] ([facility] [place]) [address] [place] [address] Ethanol [Mass/Vol] 77 mg/dL High NINF - 10 mg/dL [facility] Comment on above: For medical use only . Ethanol [Mass/Vol] 242 mg/dL High NINF - 10 mg/dL [facility] Comment on above: For medical use only . Ethanol [Mass/Vol] 242 mg/dL High <=10 [facility] Comment on above: Result Comment: For medical use only. Performed By: #### 5 643-2 #### IMTIAZ Mendzoa ([id number]) [facility] ([facility] [place]) [address] [place] [address]99 Ethanol [Mass/Vol]on 024 Interpretation and review of laboratory results Abnormal [facility] Interpretation and review of laboratory results Abnormal [facility] Glucose Test strip manual (B ld) [Mass/Vol]on 08-11-2023 Glucose [Mass/Vol] 98 mg/dL Normal 74-99 [facility] Comment on above: Performed By: #### 2 341-6 #### IMTIAZ Mendoza ([id number]) [facility] ([facility] [place]) [address] [place], [place] [id number] No Panel Informationon 08-10 Interpretation and review of laboratory results Normal [facility] Salicylate levelon 4 Salicylates [Mass/Vol] mg/dL 4 - 20 mg/dL [facility] Salicylateson 08-11-2023 Salicylates [Mass/Vol] mg/dL Normal 4-20 [facility] Comment on above: Performed By: #### 4 024-6 #### IMTIAZ Mendoza ([id number]) [facility] ([facility] [place]) [address] [place] [address] Urinalysis complete W Reflex Culture panel (U)on 08-11-2023 Appearance (U) Clear Normal Clear [facility] Comment on above: Performed By: #### 5 8077-9 #### IMTIAZ Mendoza ([id number]) [facility] ([facility] [place]) [address] [place] [address] Bilirubin (U) [Mass/Vol] Negative Normal NEGATIVE [facility] Comment on above: Performed By: #### 5 8077-9 #### IMTIAZ Mendoza ([id number]) [facility] ([facility] [place]) [address] [place] [address] Color (U) Light-Yellow Normal Light-Yellow , Yellow, Dark-Yellow [facility] Comment on above: Performed By: #### 5 8077-9 #### IMTIAZ Mendoza ([id number]) [facility] ([facility] [place]) [address] [place] [address]54 Glucose Auto test strip (U) [Mass/Vol] Normal Normal Normal [facility] Comment on above: Performed By: #### 5 8077-9 #### IMTIAZ Mendoza ([id number]) [facility] ([facility] [place]) [address] [place] [address] Ketones (U) [Mass/Vol] Negative Normal NEGATIVE [facility] Comment on above: Performed By: #### 5 8077-9 #### IMTIAZ Mendoza ([id number]) [facility] ([facility] [place]) [address] [place] [address] Leukocyte esterase Auto test strip Ql (U) Negative Normal NEGATIVE [facility] Comment on above: Performed By: #### 5 8481-9 #### IMTIAZ Mendoza ([id number]) [facility] ([facility] [place]) [address] [place] [address] Nitrite Auto test strip Ql (U) Negative Normal NEGATIVE [facility] Comment on above: Performed By: #### 5 8077-9 #### IMTIAZ Mendoza ([id number]) [facility] ([facility] [place]) [address] [place] [address] 50476 pH (U) 6.0 [pH] Normal 5.0, 5.5, 6.0, 6.5, 7.0, 7.5, 8.0 [facility] Comment on above: Performed By: #### 5 8077-9 #### IMTIAZ Mendoza ([id number]) [facility] ([facility] [place]) [address] [place] [address] 65776 Protein (U) [Mass/Vol] Negative Normal NEGATIVE, 10 (TRACE), 20 (TRACE) [facility] Comment on above: Performed By: #### 5 8077-9 #### IMTIAZ Mendoza ([id number]) [facility] ([facility] [place]) [address] [place] [address] 68584 RBC (U) [#/Vol] Negative Normal NEGATIVE [facility] Comment on above: Performed By: #### 5 8077-9 #### IMTIAZ Mendoza ([id number]) [facility] ([facility] [place]) [address] [place] [address]24 Specific gravity (U) [Rel density] 1.005 Normal 1.005-1.035 [facility] Comment on above: Performed By: #### 5 8077-9 #### IMTIAZ Mendoza ([id number]) [facility] ([facility] [place]) [address] [place] [address] 12180 Urobilinogen (U) [Mass/Vol] Normal Normal Normal [facility] Comment on above: Performed By: #### 5 8077-9 #### IMTIAZ Mendoza ([id number]) [facility] ([facility] [place]) [address] [place] [address] 75785 XR Hand - right 3 Viewson No evidence of acute fracture or dislocation. No evidence of radiopaque foreign body. Signed by: Gerald Niño 08/11/2023 12:17 AM Dictation workstation: [id number] Interpreted By: Gerald Morgan, STUDY: XR HAND RIGHT 3+ VIEWS; ; 08/10/2023 11:57 pm INDICATION: Signs/Symptoms:cocnern for fb in hand, pt cut hand on broken window. COMPARISON: None. ACCESSION NUMBER(S): [id number] ORDERING CLINICIAN: LESTER SMITH FINDINGS: Bone mineralization [...] on broken window. COMPARISON: None. ACCESSION NUMBER(S): [id number] ORDERING CLINICIAN: LESTER SMITH FINDINGS: Bone mineralization is normal. There is no evidence of fracture or dislocation. The joint spaces are maintained. No evidence of radiopaque foreign body. IMPRESSION: No evidence of acute fracture or dislocation. No evidence of radiopaque foreign body. Signed by: Gerald Niño 08/11/2023 12:17 AM Dictation workstation: [id number] [facility] Work Phone: XR Hand - right 3 ViewsOrder ed By: Gerald Niño on 08-11-2023 [facility] Work Phone: Drug Screen, Urineon 024 Amphetamines Screen Ql (U) Negative Presumptive Negative [facility] Comment on above: CUTOFF LEVEL: 500 NG /ML Cross-reactivity has been reported with high concentrations of the following drugs: buproprion, chloroquine, chlorpromazine, ephedrine, mephentermine, fenfluramine, phentermine, phenylpropanolamine, pseudoephedrine, and propranolol. Barbiturates Screen Ql (U) Negative Presumptive Negative [facility] Comment on above: CUTOFF LEVEL: 200 NG /ML Benzodiazepines Ql (U) Negative Presumptive Negative [facility] Comment on above: CUTOFF LEVEL: 200 NG /ML Benzoylecgonine Screen Ql (U) Negative Presumptive Negative [facility] Comment on above: CUTOFF LEVEL: 150 NG /ML Cannabinoids Screen Ql (U) Positive Abnormal Presumptive Negative [facility] Comment on above: CUTOFF LEVEL: 50 NG/ ML fentaNYL+Norfentanyl Screen Ql (U) Negative Presumptive Negative [facility] Comment on above: CUTOFF LEVEL: 5 NG/M L Interpretation and review of laboratory results Abnormal [facility] Methadone Screen Ql (U) Negative Presumptive Negative [facility] Comment on above: CUTOFF LEVEL: 150 NG /ML The metabolite D-pvobu-utknjmxlhqslnf (LAAM) is not detected by this method in concentrations that would be found in the urine of patients on LAAM therapy. Opiates Screen Ql (U) Negative Presum ptive Negative [facility] Comment on above: CUTOFF LEVEL: 300 NG /ML The opiate screen does not detect fentanyl, meperidine, or tramadol. Oxycodone is not consistently detected (refer to Oxycodone Screen, Urine result). oxyCODONE+oxyMORphone Screen Ql (U) Negative Presumptive Negative [facility] Comment on above: CUTOFF LEVEL: 100 NG /ML This test will accurately detect both oxycodone and oxymorphone. Phencyclidine Ql (U) Negative Presump tive Negative [facility] Comment on above: CUTOFF LEVEL: 25 NG/ ML Cross-reactivity has been reported with dextromethorphan. Drug screen results are presumptive and should not be used to assess compliance with prescribed medication. Contact the performing [facility] laboratory to add-on definitive confirmatory testing if [...] be directed to the laboratory medical directors. [facility] Glucose Test strip manual (B ld) [Mass/Vol]on 08-10-2023 Glucose [Mass/Vol] 98 mg/dL 74 - 99 mg/dL [facility] Interpretation and review of laboratory results Normal [facility] Urinalysis complete W Reflex Culture panel (U)on 08-10-2023 Appearance (U) Clear Clear [facility] Bilirubin (U) [Mass/Vol] Negative NEGATIVE [facility] Color (U) Light-Yellow Light-Yellow , Yellow, Dark-Yellow [facility] Glucose Auto test strip (U) [Mass/Vol] Normal Normal mg/dL [facility] Interpretation and review of laboratory results Normal [facility] Ketones (U) [Mass/Vol] Negative NEGATIVE mg/dL [facility] Leukocyte esterase Auto test strip Ql (U) Negative NEGATIVE [facility] Nitrite Auto test strip Ql (U) Negative NEGATIVE [facility] pH (U) 6.0 [pH] 5.0, 5.5, 6.0, 6.5, 7.0, 7.5, 8.0 [facility] Protein (U) [Mass/Vol] Negative NEGATIVE, 10 (TRACE), 20 (TRACE) mg/dL [facility] RBC (U) [#/Vol] Negative NEGATIVE [facility] Specific gravity (U) [Rel density] 1.005 1.005 - 1.035 [facility] Urobilinogen (U) [Mass/Vol] Normal Normal mg/dL [facility] XR HAND RIGHT 3+ VIEWSon XR HAND RIGHT 3+ VIEWS Interpreted By: Gerald Niño, STUDY: XR HAND RIGHT 3+ VIEWS; ; 08/10/2023 11:57 pm INDICATION: Signs/Symptoms:cocnern for fb in hand, pt cut hand on broken window. COMPARISON: None. ACCESSION NUMBER(S): [id number] ORDERING CLINICIAN: LESTER SMITH FINDINGS: Bone mineralization is normal. There is no evidence of fracture or dislocation. The joint spaces are maintained. No evidence of radiopaque foreign body. IMPRESSION: No evidence of acute fracture or dislocation. No evidence of radiopaque foreign body. Signed by: Gerald Niño 08/11/2023 12:17 AM Dictation workstation: [id number] Normal [facility] XR Hand - right 3 Viewson Radiology Study observation (narrative) [facility] Work Phone: Absolute lymphocyte countOrd ered By: Hieu Man on 07-02-2023 Lymphocytes Auto (Unsp spec) [#/Vol] 3.96 10*3/uL 0.83-4.51 [facility] Automated lymphocyte count a s percentage of total leukocytesOrdered By: Hieu Man on 07-02-2023 Lymphocytes/100 WBC Auto (Unsp spec) 34.2 % 19-41 [facility] Basophil percentageOrdered B y: Hieu Man on 07-02-2023 Basophils/100 WBC (Bld) 0.6 % 0-1 [facility] Chloride [Moles/Vol] 108 mmol/L 98-107 [facility] Eosinophils/100 WBC (Bld) 2.2 % 0-5 [facility] Glucose [Mass/Vol] 106 mg/dL 74-106 [facility] Comment on above: Fasting Glucose resu lt from 100 to 125 mg/dL suggests IMPAIRED HOMEOSTASIS per A.D.A. criteria. Hemoglobin (Bld) [Mass/Vol] 12.6 g/dL 13.0-16.5 [facility] Monocytes/100 WBC (Bld) 6.3 % 0-10 [facility] Neutrophils (Bld) [#/Vol] 6.5 10*3/uL 2.0-7.7 [facility] Neutrophils/100 WBC (Bld) 56.4 % 47-70 [facility] Potassium [Moles/Vol] 4.2 mmol/L 3.5-5.1 [facility] Sodium [Moles/Vol] 141 mmol/L 136-145 [facility] WBC (Bld) [#/Vol] 11.6 10*3/uL 4.4-11.0 [facility] Determination of erythrocyte mean corpuscular volume (MCV)Ordered By: Hieu Man on 07-02-2023 MCV (RBC) [Entitic vol] 86.4 fL 80-94 [facility] Erythrocyte distribution wid th ratioOrdered By: Hieu Man on 07-02-2023 Erythrocyte distribution width (RBC) [Ratio] 15.0 % 11.6-14.6 [facility] Erythrocyte distribution wid th standard deviationOrdered By: Hieu Man on 07-02-2023 Erythrocyte distribution width (RBC) [Entitic vol] 47.8 fL 35.1-43.9 [facility] Hematocrit Auto (Bld) [Volum e fraction]Ordered By: Hieu Man on 07-02-2023 Hematocrit (Bld) [Volume fraction] 38.6 % 40-54 [facility] Immature granulocytes/100 WB C Auto (Bld)Ordered By: Hieu Man on 07-02-2023 Immature granulocytes/100 WBC (Bld) 0.300 % 0.0-0.9 [facility] Comment on above: IG% - Immature Granu locytes (promyelocytes, myelocytes and metamyelocytes) > 1% indicates that a LEFT SHIFT is Present. Laboratory - Chemistry and C hemistry - challengeOrdered By: Hieu Man on 07-02-2023 CO2 [Moles/Vol] 27.0 mmol/L 21.0-32.0 [facility] Urea nitrogen/Creatinine [Mass ratio] 18.0 mg/mg 10-20 [facility] Laboratory - Drug toxicology Ordered By: Hieu Man on 07-02-2023 Amphetamines Ql (U) Negative <1000 ng/mL [facility] Benzodiazepines Ql (U) Negative < 200 ng/mL [facility] Cannabinoids Screen Ql (U) Positive < 50 ng/mL [facility] Cocaine Ql (U) Negative < 300 ng/mL [facility] Opiates Ql (U) Negative < 300 ng/mL [facility] Laboratory - Hematology and Cell countsOrdered By: Hieu Man on 07-02-2023 MCH (RBC) [Entitic mass] 28.2 pg 27.0-32.0 [facility] MCHC (RBC) [Mass/Vol] 32.6 g/dL 32-36 [facility] Nucleated RBC/100 WBC (Bld) [Ratio] 0 % 0-5 [facility] Platelet mean volume (Bld) [Entitic vol] 10.5 fL 6.2-12.0 [facility] Platelets (Bld) [#/Vol] 290 10*3/uL 150-450 [facility] No Panel InformationOrdered By: Hieu Man on 07-02-2023 MDMA (Ecstasy) Screen Negative < 500 ng/mL [facility] Urine Barbiturates Screen Negative < 200 ng/mL [facility] Urine Drug Screen Comment [facility] Comment on above: CONFIRMATORY TESTING FOR ALL [...] Urine Methadone Screen Negative < 300 ng/mL [facility] Estimated Creatinine Clearance Calc 119.46 ml/min [facility] Estimated GFR (MDRD) Amer 137 mL/min >60 [facility] Comment on above: GFR Calc Estimated GFR (MDRD) Non-Af Amer 113 mL/min >60 [facility] Comment on above: Non- GFR Calc Ethyl Alcohol Level < 3.0 mg/dL [facility] Comment on above: The serum:whole bloo d ethanol ratio is approximately 1.14and varies slightly with hematocrit. Medical Alcohol reference interval and critical value innon-tolerant individuals; 50 - 100 Impairment 100 Intoxication 100 - 250 Severe Poisoning 250 - 400 Deep/possible fatal coma RBC Auto (Bld) [#/Vol]Ordere d By: Hieu Man on 07-02-2023 RBC (Bld) [#/Vol] 4.47 10*6/uL 4.6-6.2 [facility] Serum or plasma calcium simone urement (mass/volume)Ordered By: Hieu Man on 07-02-2023 Calcium [Mass/Vol] 8.9 mg/dL 8.5-10.1 [facility] Serum or plasma creatinine m easurement (mass/volume)Ordered By: Hieu Man on 07-02-2023 Creatinine [Mass/Vol] 0.83 mg/dL 0.70-1.30 [facility] Comment on above: The validity of the calculated GFR & GFRAA in patients over 70 years has not been determined. Clinical correlation is essential. Serum or plasma urea nitroge n measurement (mass/volume)Ordered By: Hieu Man on 07-02-2023 Urea nitrogen [Mass/Vol] 15 mg/dL 7-18 [facility] Thin prep Papanicolaou smear with manual screeningOrdered By: Hieu Man on 07-02-2023 Thin prep Papanicolaou smear with manual screening 6 5-15 [facility] Urine phencyclidine (PCP) de tectionOrdered By: Hieu Man on 07-02-2023 Phencyclidine Ql (U) Negative < 25 ng/mL [facility] ARTERIAL BLOOD GASESon 01-04 Base deficit (BldA) [Moles/Vol] -23 mmol/L Low -2-0 [facility] Comment on above: Order Comment: Speci men Type: ARTERIAL BLOOD SPECIMENOrdering Facility: [facility] Address: [address] [place] [address] Performed By: #### A LLBG ####[facility] LABORATORYCLIA [id number] [address] [place] Body temperature 97.52 [degF] Normal [facility] Comment on above: Order Comment: Speci men Type: ARTERIAL BLOOD SPECIMENOrdering Facility: [facility] Address: [address] [place] [address] Performed By: #### A LLBG ####[facility]ORATORYCLIA [id number] [address] [place] Calcium.ionized (BldV) [Mass/Vol] 1.12 mmol/L Normal 1.08-1.30 [facility] Comment on above: Order Comment: Speci men Type: ARTERIAL BLOOD SPECIMENOrdering Facility: [facility] Address: [address] [place] [address] Performed By: #### A LLBG ####[facility]ORATORYCLIA [id number] [address] [place] Calcium.ionized adjusted to pH 7.4 (BldA) [Moles/Vol] Normal [facility] Comment on above: Order Comment: Speci men Type: ARTERIAL BLOOD SPECIMENOrdering Facility: [facility] Address: [address] [place] [address] Result Comment: Simone ured pH is <7.20. Unable to report normalized Calcium. Performed By: #### A LLBG ####[facility]ORYCLIA [id number] [address] [place] Carboxyhemoglobin (BldA) [Mass fraction] 3.8 % High 0.0-2.0 [facility] Comment on above: Order Comment: Speci men Type: ARTERIAL BLOOD SPECIMENOrdering Facility: [facility] Address: [address] [place] [address] Result Comment: Carb oxyhemoglobin Reference Range for Smokers: 2.0-8.0% Performed By: #### A LLBG ####[facility]ORATORYCLIA [id number] [address] [place] Chloride [Moles/Vol] 102 mmol/L Normal 102-109 [facility] Comment on above: Order Comment: Speci men Type: ARTERIAL BLOOD SPECIMENOrdering Facility: [facility] Address: [address] [place] [address] Performed By: #### A LLBG ####[facility]ORATORYCLIA [id number] [address] [place] CO2 (Bld) [Partial pressure] mm[Hg] High 36-46 [facility] Comment on above: Order Comment: Speci men Type: ARTERIAL BLOOD SPECIMENOrdering Facility: [facility] Address: [address] [place] [address] Performed By: #### A LLBG ####[facility]ORATORYCLIA [id number] [address] [place] CO2 adjusted to patient's actual temperature (Bld) [Partial pressure] >100 High 36-46 [facility] Comment on above: Order Comment: Speci men Type: ARTERIAL BLOOD SPECIMENOrdering Facility: [facility] Address: [address] [place] [address] Performed By: #### A LLBG ####[facility]ORATORYCLIA [id number] [address] [place] Glucose [Mass/Vol] mg/dL Critically low 60-105 [facility] Comment on above: Order Comment: Speci men Type: ARTERIAL BLOOD SPECIMENOrdering Facility: [facility] Address: [address] [place] [place] [address] Performed By: #### A LLBG ####[facility]ORATORYCLIA [id number] [address] [place] HCO3 (Bld) [Moles/Vol] 22 mmol/L Normal 22-26 [facility] Comment on above: Order Comment: Speci men Type: ARTERIAL BLOOD SPECIMENOrdering Facility: [facility] Address: [address] [place] [address] Performed By: #### A LLBG ####[facility]ORATORYCLIA [id number] [address] OF [facility] Hematocrit (Bld) [Volume fraction] 56.6 % High 39.0-51.0 [facility] Comment on above: Order Comment: Speci men Type: ARTERIAL BLOOD SPECIMENOrdering Facility: [facility] Address: [address] [place] [address] Performed By: #### A LLBG ####[facility]ORATORYCLIA [id number] [address] [place] Hemoglobin (Bld) [Mass/Vol] 18.5 g/dL High 13.0-17.0 [facility] Comment on above: Order Comment: Speci men Type: ARTERIAL BLOOD SPECIMENOrdering Facility: [facility] Address: [address] [place] [address] Performed By: #### A LLBG ####[facility]ORATORYCLIA [id number] [address] [place] Lactate [Moles/Vol] 17.0 mmol/L High 0.5-2.2 [facility] Comment on above: Order Comment: Speci men Type: ARTERIAL BLOOD SPECIMENOrdering Facility: [facility] Address: [address] [place] [address] Performed By: #### A LLBG ####[facility]ORATORYCLIA [id number] [address] [place] Methemoglobin (Bld) [Mass fraction] 0.6 % Normal 0.0-1.5 [facility] Comment on above: Order Comment: Speci men Type: ARTERIAL BLOOD SPECIMENOrdering Facility: [facility] Address: [address] [place] [address] Performed By: #### A LLBG ####[facility]ORATORYCLIA [id number] [address] O2 THERAPY RA=Room Air Normal [facility] Comment on above: Order Comment: Speci men Type: ARTERIAL BLOOD SPECIMENOrdering Facility: [facility] Address: [address] [place] [address] Performed By: #### A LLBG ####[facility]ORATORYCLIA [id number] [address] Oxygen (Bld) [Partial pressure] mm[Hg] Critically low 85-95 [facility] Comment on above: Order Comment: Speci men Type: ARTERIAL BLOOD SPECIMENOrdering Facility: [facility] Address: [address] [place] [address] Performed By: #### A LLBG ####[facility]ORATORYCLIA [id number] [address] Oxygen adjusted to patient's actual temperature (Bld) [Partial pressure] <40 Critically low 85-95 [facility] Comment on above: Order Comment: Speci men Type: ARTERIAL BLOOD SPECIMENOrdering Facility: [facility] Address: [address] [place] [address] Performed By: #### A LLBG ####[facility]ORYCLIA [id number] [address] Oxyhemoglobin (BldA) [Mass fraction] 9 % Low 95-98 [facility] Comment on above: Order Comment: Speci men Type: ARTERIAL BLOOD SPECIMENOrdering Facility: [facility] Address: [address] [place] [address] Performed By: #### A LLBG ####[facility]ORATORYCLIA [id number] [address] pH (Bld) 6.82 [pH] Critically low 7.35-7.45 [facility] Comment on above: Order Comment: Speci men Type: ARTERIAL BLOOD SPECIMENOrdering Facility: [facility] Address: [address] [place] [address] Performed By: #### A LLBG ####[facility]ORATORYCLIA [id number] [address] pH adjusted to patient's actual temperature (Bld) 6.83 Critically low 7.35-7.45 [facility] Comment on above: Order Comment: Speci men Type: ARTERIAL BLOOD SPECIMENOrdering Facility: [facility] Address: [address] [place] [address] Performed By: #### A LLBG ####[facility] LABORATORYCLIA [id number] [address] PO2 / FIO2 RATIO <190 Low >300 [facility] Comment on above: Order Comment: Speci men Type: ARTERIAL BLOOD SPECIMENOrdering Facility: [facility] Address: [address] [place] [address] Performed By: #### A LLBG ####[facility] LABORATORYCLIA [id number] [address] [place] Potassium [Moles/Vol] 6.4 mmol/L Critically high 3.5-5.0 [facility] Comment on above: Order Comment: Speci men Type: ARTERIAL BLOOD SPECIMENOrdering Facility: [facility] Address: [address] [place] [address] Performed By: #### A LLBG ####[facility]ORYCLIA [id number] [address] [place] Sodium [Moles/Vol] 142 mmol/L Normal 136-144 [facility] Comment on above: Order Comment: Speci men Type: ARTERIAL BLOOD SPECIMENOrdering Facility: [facility] Address: [address] [place] [address] Performed By: #### A LLBG ####[facility]ORATORYCLIA [id number] [place] [address] [place] Absolute lymphocyte countOrd ered By: Wellington Bower on 01-04-2023 Lymphocytes Auto (Unsp spec) [#/Vol] 2.24 10*3/uL 0.83-4.51 [facility] Basophil percentageOrdered B y: Wellington Bower on 01-04-2023 Basophils/100 WBC (Bld) 0.5 % 0-1 [facility] Chloride [Moles/Vol] 105 mmol/L 98-107 [facility] Eosinophils/100 WBC (Bld) 2.7 % 0-5 [facility] Glucose [Mass/Vol] 116 mg/dL 74-106 [facility] Comment on above: Fasting Glucose resu lt from 100 to 125 mg/dL suggests IMPAIRED HOMEOSTASIS per A.D.A. criteria. Neutrophils (Bld) [#/Vol] 5.4 10*3/uL 2.0-7.7 [facility] Neutrophils/100 WBC (Bld) 63.2 % 47-70 [facility] Potassium [Moles/Vol] 4.0 mmol/L 3.5-5.1 [facility] Sodium [Moles/Vol] 137 mmol/L 136-145 [facility] WBC (Bld) [#/Vol] 8.5 10*3/uL 4.4-11.0 [facility] Blood erythrocytes count (nu mber/volume)Ordered By: Wellington Bower on 01-04-2023 RBC (Bld) [#/Vol] 4.46 10*6/uL 4.6-6.2 [facility] Blood hemoglobin measurement (mass/volume)Ordered By: Wellington Bower on 01-04-2023 Hemoglobin (Bld) [Mass/Vol] 13.0 g/dL 13.0-16.5 [facility] Blood lymphocytes/100 leukoc ytesOrdered By: Wellington Bower on 01-04-2023 Lymphocytes/100 WBC (Bld) 26.4 % 19-41 [facility] Blood monocytes/100 leukocyt esOrdered By: Wellington Bower on 01-04-2023 Monocytes/100 WBC (Bld) 6.8 % 0-10 [facility] Blood platelet mean volumeOr dered By: Wellington Bower on 01-04-2023 Platelet mean volume (Bld) [Entitic vol] 10.9 fL 6.2-12.0 [facility] CBC panel Auto (Bld)on 01-04 Erythrocyte distribution width (RBC) [Ratio] 14.2 % Normal 11.5-15.0 [facility] Comment on above: Order Comment: Speci men Type: BLOOD SPECIMEN [facility] Address: [address] [place] [address] Performed By: #### 5 8410-2 #### [facility] CLIA [id number] [address] Hematocrit (Bld) [Volume fraction] 37.6 % Low 39.0-51.0 [facility] Comment on above: Order Comment: Speci men Type: BLOOD SPECIMEN [facility] Address: [address] [place] [address] Performed By: #### 5 8410-2 #### [facility] CLIA [id number] [address] OF [facility] Hemoglobin (Bld) [Mass/Vol] 12.6 g/dL Low 13.0-17.0 [facility] Comment on above: Order Comment: Speci men Type: BLOOD SPECIMEN [facility] Address: [address] [place] [address] Performed By: #### 5 8410-2 #### [facility] CLIA [id number] [address] MCH (RBC) [Entitic mass] 29.1 pg Normal 26.0-34.0 [facility] Comment on above: Order Comment: Speci men Type: BLOOD SPECIMEN [facility] Address: [address] [place] [address] Performed By: #### 5 8410-2 #### [facility] CLIA [id number] [address] MCHC (RBC) [Mass/Vol] 33.5 g/dL Normal 30.5-36.0 [facility] Comment on above: Order Comment: Speci men Type: BLOOD SPECIMEN [facility] Address: [address] [address] Performed By: #### 5 8410-2 #### [facility] CLIA [id number] [address] MCV (RBC) [Entitic vol] 86.8 fL Normal 80.0-100.0 [facility] Comment on above: Order Comment: Speci men Type: BLOOD SPECIMEN [facility] Address: [address] [address] Performed By: #### 5 8410-2 #### [facility] CLIA [id number] [address] OF [facility] Nucleated RBC (Bld) [#/Vol] 10*3/uL Normal <0.01 [facility] Comment on above: Order Comment: Speci men Type: BLOOD SPECIMEN [facility] Address: [address] [address] Performed By: #### 5 8410-2 #### [facility] CLIA [id number] [address] [place] Platelet mean volume (Bld) [Entitic vol] 10.9 fL Normal 9.0-12.7 [facility] Comment on above: Order Comment: Speci men Type: BLOOD SPECIMEN [facility] Address: [address] [address] Performed By: #### 5 8410-2 #### [facility] CLIA [id number] [address] [place] Platelets (Bld) [#/Vol] 259 10*3/uL Normal 150-400 [facility] Comment on above: Order Comment: Speci men Type: BLOOD SPECIMEN [facility] Address: [address] [address] Performed By: #### 5 8410-2 #### [facility] CLIA [id number] [address] OF [facility] RBC (Bld) [#/Vol] 4.33 10*6/uL Normal 4.20-6.00 [facility] Comment on above: Order Comment: Speci men Type: BLOOD SPECIMEN [facility] Address: [address] [place] [address] Performed By: #### 5 8410-2 #### [facility] CLIA [id number] [address] WBC (Bld) [#/Vol] 11.95 10*3/uL High 3.70-11.00 [facility] Comment on above: Order Comment: Speci men Type: BLOOD SPECIMEN [facility] Address: [address] [place] [address] Performed By: #### 5 8410-2 #### [facility] CLIA [id number] [address] CONSULTon 01-04-2023 CONSULT HNO ID: [id number] Author: Rachel Lawrence MD Service: Urology Author [...] sickle cell disease. Patient was seen at [place] and was transferred to [facility] for further management. Denies any change in [...] (k/uL) Date Value 02/20/2020 216 Urinalysis: Specific Agenda, Ur Date Value Ref Range Status 02/27/2017 [...] next 1-2 weeks, wishes to fu in [place] and will touch base with [facility] - Patient educated/advised to return to ED if he develops another erection lasting >2 hours and especially >4h as his risk of erectile dysfunction will be increased. Also advised that close follow up with urology is important for similar reasons - Patient advised he is to expect pain and sw (more content not included)... Normal [facility] Determination of erythrocyte mean corpuscular volume (MCV)Ordered By: Wellington Bower on 01-04-2023 MCV (RBC) [Entitic vol] 89.0 fL 80-94 [facility] ED NOTEon 01-04-2023 ED NOTE HNO ID: [id number] Author: Yaa Ruiz RN Service: Emergency Medicine Author Type: Registered Nurse Type: ED Notes Filed: 01/04/2023 7:16 PM Note Text: Report given to AZAEL Ramirez [facility] ED NOTE HNO ID: [id number] Author: Yaa Ruiz RN Service: Emergency Medicine Author Type: Registered Nurse Type: ED Notes Filed: 01/04/2023 6:53 PM Note Text: Urology remains at bedside performing procedure. Pt stats are stable. [facility] ED NOTE HNO ID: [id number] Author: Yaa Ruiz RN Service: Emergency Medicine Author Type: Registered Nurse Type: ED Notes Filed: 01/04/2023 6:46 PM Note Text: O2 prepared at bedside [facility] ED NOTE HNO ID: [id number] Author: Yaa Ruiz RN Service: Emergency Medicine Author Type: Registered Nurse Type: ED Notes Filed: 01/04/2023 6:22 PM Note Text: Urology at bedside [facility] ED NOTE HNO ID: [id number] Author: Yaa Ruiz RN Service: Emergency Medicine Author Type: Registered Nurse Type: ED Notes Filed: 01/04/2023 6:51 PM Note Text: All medications prepared at bedside for Urology physicians. [facility] ED NOTE HNO ID: [id number] Author: Yaa Ruiz RN Service: Emergency Medicine Author Type: Registered Nurse Type: ED Notes Filed: 01/04/2023 6:28 PM Note Text: Pt on continuous cardiac and SPO2 monitoring. Pt has call light at bedside. [facility] ED NOTE HNO ID: [id number] Author: Rosalie, Russell, RN Service: ? Author Type: Registered Nurse Type: ED Notes Filed: 01/04/2023 5:24 PM Note Text: Bed: 22-ED Expected date: Expected time: Means of arrival: Comments: jacqui Pepper [facility] ED PROV NOTEon 01-04-2023 ED PROV NOTE HNO ID: [id number] Author: Doreen Blanco MD Service: Emergency Medicine [...] use. Recently quit kratom and benzodiazepines cold turkey. States that he had 1 prior episode [...] Priapism: Pt arrives as a transfer from [place]. Pt has had priapism since 1000 this morning. Pt states has 10/10 pain and is AANDO x4. 33 year old male with PMH of generalized anxiety disorder and depression who presented with chief complaint of priapism. Patient initially presented to [facility] ED and was sent to [facility] to see urology. Patient reports this morning [...] Testes: Katey (more content not included)... Normal [facility] Hematocrit Auto (Bld) [Volum e fraction]Ordered By: Wellington Bower on 01-04-2023 Hematocrit (Bld) [Volume fraction] 39.7 % 40-54 [facility] Laboratory - Chemistry and C hemistry - challengeOrdered By: Wellington Bower on 01-04-2023 CO2 [Moles/Vol] 29.0 mmol/L 21.0-32.0 [facility] Urea nitrogen/Creatinine [Mass ratio] 6.3 mg/mg 10- [facility] Laboratory - Hematology and Cell countsOrdered By: Wellington Bower on 01-04-2023 Erythrocyte distribution width (RBC) [Entitic vol] 46.1 fL 35.1-43.9 [facility] Erythrocyte distribution width (RBC) [Ratio] 14.3 % 11.6-14.6 [facility] Immature granulocytes/100 WBC (Bld) 0.400 % 0.0-0.9 [facility] Comment on above: IG% - Immature Granu locytes (promyelocytes, myelocytes and metamyelocytes) > 1% indicates that a LEFT SHIFT is Present. MCH (RBC) [Entitic mass] 29.1 pg 27.0-32.0 [facility] Nucleated RBC/100 WBC (Bld) [Ratio] 0 % 0-5 [facility] MCHC Auto (RBC) [Mass/Vol]Or dered By: Wellington Bower on 01-04-2023 MCHC (RBC) [Mass/Vol] 32.7 g/dL 32-36 [facility] No Panel InformationOrdered By: Wellington Bower on 01-04-2023 Estimated Creatinine Clearance Calc 89.32 ml/min [facility] Estimated GFR (MDRD) Amer 99 mL/min >60 [facility] Comment on above: GFR Calc Estimated GFR (MDRD) Non-Af Amer 82 mL/min >60 [facility] Comment on above: Non- GFR Calc PT panel Coag (PPP)on 2022 INR Coag (PPP) [Relative time] 1.0 {INR} Normal 0.9-1.3 [facility] Comment on above: Order Comment: Speci men Type: BLOOD SPECIMENOrdering Facility: [facility] Address: [address] [place] [id number] Result Comment: Martha min K Antagonist (VKA) Therapeutic Range: INR 2 to 3 (Target INR of 2.5) Note: For patients treated with VKA drugs, such as warfarin, the [employer] 2012 Guideline recommends [...] to 3.5 (target INR of 3). Ethan GH, et al. Chest 2012, 141:7S-47S Meghann RA et al. [facility] 2017, 70: 252-289 Performed By: #### 3 4528-0 ####[facility]ATORYCLIA [id number] [place] [address] [facility] PT Coag (PPP) [Time] 10.4 s Normal 9.7-13.0 [facility] Comment on above: Order Comment: Speci men Type: BLOOD SPECIMENOrdering Facility: [facility] Address: [address] [place], [place] [address] [place] [id number] Performed By: #### 3 4528-0 ####[facility]ORYCLIA [id number] [place] [address] [facility] Platelets bldOrdered By: Benita Bower on 01-04-2023 Platelets (Bld) [#/Vol] 250 10*3/uL 150-450 [facility] Serum or plasma calcium simone urement (mass/volume)Ordered By: Wellington Bower on 01-04-2023 Calcium [Mass/Vol] 8.3 mg/dL 8.5-10.1 [facility] Serum or plasma creatinine m easurement (mass/volume)Ordered By: Wellington Bower on 01-04-2023 Creatinine [Mass/Vol] 1.11 mg/dL 0.70-1.30 [facility] Comment on above: The validity of the calculated GFR & GFRAA in patients over 70 years has not been determined. Clinical correlation is essential. Serum or plasma urea nitroge n measurement (mass/volume)Ordered By: Wellington Bower on 01-04-2023 Urea nitrogen [Mass/Vol] 7 mg/dL 7-18 [facility] Thin prep Papanicolaou smear with manual screeningOrdered By: Wellington Bower on 01-04-2023 Thin prep Papanicolaou smear with manual screening 3 5-15 [facility] Absolute lymphocyte countOrd ered By: ED PROVIDER on 09-03-2022 Lymphocytes Auto (Unsp spec) [#/Vol] 1.13 10*3/uL 0.83-4.51 [facility] Basophil percentageOrdered B y: ED PROVIDER on 09-03-2022 Basophils/100 WBC (Bld) 0.3 % 0-1 [facility] Chloride [Moles/Vol] 100 mmol/L 98-107 [facility] Eosinophils/100 WBC (Bld) 1.0 % 0-5 [facility] Glucose [Mass/Vol] 124 mg/dL 74-106 [facility] Comment on above: Fasting Glucose resu lt from 100 to 125 mg/dL suggests IMPAIRED HOMEOSTASIS per A.D.A. criteria. Neutrophils (Bld) [#/Vol] 7.0 10*3/uL 2.0-7.7 [facility] Neutrophils/100 WBC (Bld) 75.4 % 47-70 [facility] Potassium [Moles/Vol] 3.7 mmol/L 3.5-5.1 [facility] Sodium [Moles/Vol] 135 mmol/L 136-145 [facility] WBC (Bld) [#/Vol] 9.2 10*3/uL 4.4-11.0 [facility] Blood erythrocytes count (nu mber/volume)Ordered By: ED PROVIDER on 09-03-2022 RBC (Bld) [#/Vol] 4.77 10*6/uL 4.6-6.2 [facility] Blood hemoglobin measurement (mass/volume)Ordered By: ED PROVIDER on 09-03-2022 Hemoglobin (Bld) [Mass/Vol] 13.3 g/dL 13.0-16.5 [facility] Blood lymphocytes/100 leukoc ytesOrdered By: ED PROVIDER on 09-03-2022 Lymphocytes/100 WBC (Bld) 12.3 % 19-41 [facility] Blood monocytes/100 leukocyt esOrdered By: ED PROVIDER on 09-03-2022 Monocytes/100 WBC (Bld) 10.7 % 0-10 [facility] Blood platelet mean volumeOr dered By: ED PROVIDER on 09-03-2022 Platelet mean volume (Bld) [Entitic vol] 10.1 fL 6.2-12.0 [facility] Determination of erythrocyte mean corpuscular volume (MCV)Ordered By: ED PROVIDER on 09-03-2022 MCV (RBC) [Entitic vol] 86.8 fL 80-94 [facility] Hematocrit Auto (Bld) [Volum e fraction]Ordered By: ED PROVIDER on 09-03-2022 Hematocrit (Bld) [Volume fraction] 41.4 % 40-54 [facility] Influenza virus A and B and SARS-CoV-2 (COVID-19) Ag panel - Upper respiratory specimOrdered By: Dr. Cardona on 09-03-2022 SARS-CoV-2 (COVID-19) RNA DINAH+probe Ql (Resp) [facility] Laboratory - Chemistry and C hemistry - challengeOrdered By: ED PROVIDER on 09-03-2022 CO2 [Moles/Vol] 26.0 mmol/L 21.0-32.0 [facility] Urea nitrogen/Creatinine [Mass ratio] 3.2 mg/mg 10-20 [facility] Laboratory - Hematology and Cell countsOrdered By: ED PROVIDER on 09-03-2022 Erythrocyte distribution width (RBC) [Entitic vol] 44.4 fL 35.1-43.9 [facility] Erythrocyte distribution width (RBC) [Ratio] 13.9 % 11.6-14.6 [facility] Immature granulocytes/100 WBC (Bld) 0.300 % 0.0-0.9 [facility] Comment on above: IG% - Immature Granu locytes (promyelocytes, myelocytes and metamyelocytes) > 1% indicates that a LEFT SHIFT is Present. MCH (RBC) [Entitic mass] 27.9 pg 27.0-32.0 [facility] Nucleated RBC/100 WBC (Bld) [Ratio] 0 % 0-5 [facility] MCHC Auto (RBC) [Mass/Vol]Or dered By: ED PROVIDER on 09-03-2022 MCHC (RBC) [Mass/Vol] 32.1 g/dL 32-36 [facility] No Panel InformationOrdered By: ED PROVIDER on 09-03-2022 Estimated Creatinine Clearance Calc 107.60 ml/min [facility] Estimated GFR (MDRD) Amer 121 mL/min >60 [facility] Comment on above: GFR Calc Estimated GFR (MDRD) Non-Af Amer 100 mL/min >60 [facility] Comment on above: Non- GFR Calc Troponin I High Sensitivity 5 pg/mL 3.0-78.0 [facility] Comment on above: Please Note: [place] t Units and Gender Specific Reference Ranges. For more information see Policy Stat Procedure [place] High Sensitivity Troponin (TNIH) and attachments. Platelets bldOrdered By: ED PROVIDER on 09-03-2022 Platelets (Bld) [#/Vol] 270 10*3/uL 150-450 [facility] Serum or plasma calcium simone urement (mass/volume)Ordered By: ED PROVIDER on 09-03-2022 Calcium [Mass/Vol] 8.6 mg/dL 8.5-10.1 [facility] Serum or plasma creatinine m easurement (mass/volume)Ordered By: ED PROVIDER on 09-03-2022 Creatinine [Mass/Vol] 0.93 mg/dL 0.70-1.30 [facility] Comment on above: The validity of the calculated GFR & GFRAA in patients over 70 years has not been determined. Clinical correlation is essential. Serum or plasma urea nitroge n measurement (mass/volume)Ordered By: ED PROVIDER on 09-03-2022 Urea nitrogen [Mass/Vol] 3 mg/dL 7-18 [facility] Thin prep Papanicolaou smear with manual screeningOrdered By: ED PROVIDER on 09-03-2022 Thin prep Papanicolaou smear with manual screening 9 5-15 [facility] Absolute lymphocyte counton 12-27-2021 Lymphocytes Auto (Unsp spec) [#/Vol] 1.89 10*3/uL 0.83-4.51 [facility] Work Phone: Basophil percentageon 2021 Basophils/100 WBC (Bld) 0.5 % 0-1 [facility] Work Phone: Bilirubin [Mass/Vol] 0.40 mg/dL 0.20-1.00 [facility] Work Phone: Comment on above: For patients on eltr ombopag therapy, use of Dimension [place] TBIL is not recommended. Chloride [Moles/Vol] 94 mmol/L 98-107 [facility] Work Phone: Eosinophils/100 WBC (Bld) 1.6 % 0-5 [facility] Work Phone: Glucose [Mass/Vol] 107 mg/dL 74-106 [facility] Work Phone: Comment on above: Fasting Glucose resu lt from 100 to 125 mg/dL suggests IMPAIRED HOMEOSTASIS per A.D.A. criteria. Neutrophils (Bld) [#/Vol] 5.5 10*3/uL 2.0-7.7 [facility] Work Phone: Neutrophils/100 WBC (Bld) 66.7 % 47-70 [facility] Work Phone: Potassium [Moles/Vol] 3.1 mmol/L 3.5-5.1 [facility] Work Phone: Protein [Mass/Vol] 6.9 g/dL 6.4-8.2 [facility] Work Phone: Sodium [Moles/Vol] 130 mmol/L 136-145 [facility] Work Phone: WBC (Bld) [#/Vol] 8.2 10*3/uL 4.4-11.0 [facility] Work Phone: Blood erythrocytes count (nu mber/volume)on 12-27-2021 RBC (Bld) [#/Vol] 4.77 10*6/uL 4.6-6.2 [facility] Work Phone: Blood hemoglobin measurement (mass/volume)on 12-27-2021 Hemoglobin (Bld) [Mass/Vol] 13.0 g/dL 13.0-16.5 [facility] Work Phone: Blood lymphocytes/100 leukoc yteson 12-27-2021 Lymphocytes/100 WBC (Bld) 22.9 % 19-41 [facility] Work Phone: [phone] Blood monocytes/100 leukocyt eson 12-27-2021 Monocytes/100 WBC (Bld) 8.1 % 0-10 [facility] Work Phone: Blood platelet mean volumeon 12-27-2021 Platelet mean volume (Bld) [Entitic vol] 9.4 fL 6.2-12.0 [facility] Work Phone: Determination of erythrocyte mean corpuscular volume (MCV)on 12-27-2021 MCV (RBC) [Entitic vol] 81.3 fL 80-94 [facility] Work Phone: Direct bilirubinon 2 Bilirubin.direct [Mass/Vol] 0.10 mg/dL 0.00-0.30 [facility] Work Phone: Hematocrit Auto (Bld) [Volum e fraction]on 12-27-2021 Hematocrit (Bld) [Volume fraction] 38.8 % 40-54 [facility] Work Phone: Laboratory - Chemistry and C hemistry - challengeon 12-27-2021 ALP [Catalytic activity/Vol] 62 U/L 45-117 [facility] Work Phone: ALT [Catalytic activity/Vol] 12 U/L 16-61 [facility] Work Phone: CO2 [Moles/Vol] 26.0 mmol/L 21.0-32.0 [facility] Work Phone: Globulin (S) [Mass/Vol] 3.1 g/dL 2.2-4.2 [facility] Work Phone: Lipase [Catalytic activity/Vol] 131 U/L 73-393 [facility] Work Phone: Urea nitrogen/Creatinine [Mass ratio] 2.3 mg/mg 10-20 [facility] Work Phone: Laboratory - Hematology and Cell countson 12-27-2021 Erythrocyte distribution width (RBC) [Entitic vol] 38.3 fL 35.1-43.9 [facility] Work Phone: Erythrocyte distribution width (RBC) [Ratio] 13.0 % 11.6-14.6 [facility] Work Phone: Immature granulocytes/100 WBC (Bld) 0.200 % 0.0-0.9 [facility] Work Phone: Comment on above: IG% - Immature Granu locytes (promyelocytes, myelocytes and metamyelocytes) > 1% indicates that a LEFT SHIFT is Present. MCH (RBC) [Entitic mass] 27.3 pg 27.0-32.0 [facility] Work Phone: Nucleated RBC/100 WBC (Bld) [Ratio] 0 % 0-5 [facility] Work Phone: MCHC Auto (RBC) [Mass/Vol]on 12-27-2021 MCHC (RBC) [Mass/Vol] 33.5 g/dL 32-36 [facility] Work Phone: No Panel Informationon 12-27 Estimated Creatinine Clearance Calc 116.08 ml/min [facility] Work Phone: Estimated GFR (MDRD) Amer 132 mL/min >60 [facility] Work Phone: Comment on above: GFR Calc Estimated GFR (MDRD) Non-Af Amer 109 mL/min >60 [facility] Work Phone: Comment on above: Non- GFR Calc Troponin I High Sensitivity 4 pg/mL 3.0-78.0 [facility] Work Phone: Comment on above: Please Note: New [place] t Units and Gender Specific Reference Ranges. For more information see Policy Stat Procedure [place] High Sensitivity Troponin (TNIH) and attachments. Platelets bldon 12-27-2021 Platelets (Bld) [#/Vol] 268 10*3/uL 150-450 [facility] Work Phone: Serum or plasma albumin simone urement (mass/volume)on 12-27-2021 Albumin [Mass/Vol] 3.8 g/dL 3.2-5.0 [facility] Work Phone: Serum or plasma calcium simone urement (mass/volume)on 12-27-2021 Calcium [Mass/Vol] 8.3 mg/dL 8.5-10.1 [facility] Work Phone: Serum or plasma creatinine m easurement (mass/volume)on 12-27-2021 Creatinine [Mass/Vol] 0.87 mg/dL 0.70-1.30 [facility] Work Phone: Comment on above: The validity of the calculated GFR & GFRAA in patients over 70 years has not been determined. Clinical correlation is essential. Serum or plasma urea nitroge n measurement (mass/volume)on 12-27-2021 Urea nitrogen [Mass/Vol] 2 mg/dL 7-18 [facility] Work Phone: [phone] Thin prep Papanicolaou smear with manual screeningon 12-27-2021 Thin prep Papanicolaou smear with manual screening 9 U/L 15-37 [facility] Work Phone: Thin prep Papanicolaou smear with manual screening 10 5-15 [facility] Work Phone: Absolute lymphocyte counton 09-06-2021 Lymphocytes Auto (Unsp spec) [#/Vol] 2.11 10*3/uL 0.83-4.51 [facility] Work Phone: Basophil percentageon 2021 Basophils/100 WBC (Bld) 0.4 % 0-1 [facility] Work Phone: Bilirubin [Mass/Vol] 0.30 mg/dL 0.20-1.00 [facility] Work Phone: Comment on above: For patients on eltr ombopag therapy, use of Dimension [place] TBIL is not recommended. Chloride [Moles/Vol] 98 mmol/L 98-107 [facility] Work Phone: [phone] Eosinophils/100 WBC (Bld) 4.5 % 0-5 [facility] Work Phone: [phone] Glucose [Mass/Vol] 92 mg/dL 74-106 [facility] Work Phone: [phone] Neutrophils (Bld) [#/Vol] 4.1 10*3/uL 2.0-7.7 [facility] Work Phone: Neutrophils/100 WBC (Bld) 56.1 % 47-70 [facility] Work Phone: [phone] Potassium [Moles/Vol] 3.2 mmol/L 3.5-5.1 [facility] Work Phone: Protein [Mass/Vol] 6.6 g/dL 6.4-8.2 [facility] Work Phone: Sodium [Moles/Vol] 131 mmol/L 136-145 [facility] Work Phone: WBC (Bld) [#/Vol] 7.3 10*3/uL 4.4-11.0 [facility] Work Phone: Blood erythrocytes count (nu mber/volume)on 09-06-2021 RBC (Bld) [#/Vol] 4.71 10*6/uL 4.6-6.2 [facility] Work Phone: Blood hemoglobin measurement (mass/volume)on 09-06-2021 Hemoglobin (Bld) [Mass/Vol] 12.8 g/dL 13.0-16.5 [facility] Work Phone: Blood lymphocytes/100 leukoc yteson 09-06-2021 Lymphocytes/100 WBC (Bld) 29.1 % 19-41 [facility] Work Phone: Blood monocytes/100 leukocyt eson 09-06-2021 Monocytes/100 WBC (Bld) 9.8 % 0-10 [facility] Work Phone: Blood platelet mean volumeon 09-06-2021 Platelet mean volume (Bld) [Entitic vol] 10.3 fL 6.2-12.0 [facility] Work Phone: Determination of erythrocyte mean corpuscular volume (MCV)on 09-06-2021 MCV (RBC) [Entitic vol] 80.9 fL 80-94 [facility] Work Phone: Hematocrit Auto (Bld) [Volum e fraction]on 09-06-2021 Hematocrit (Bld) [Volume fraction] 38.1 % 40-54 [facility] Work Phone: Laboratory - Chemistry and C hemistry - challengeon 09-06-2021 ALP [Catalytic activity/Vol] 64 U/L 45-117 [facility] Work Phone: ALT [Catalytic activity/Vol] 16 U/L 16-61 [facility] Work Phone: CO2 [Moles/Vol] 26.0 mmol/L 21.0-32.0 [facility] Work Phone: Globulin (S) [Mass/Vol] 3.2 g/dL 2.2-4.2 [facility] Work Phone: Lipase [Catalytic activity/Vol] 183 U/L 73-393 [facility] Work Phone: Urea nitrogen/Creatinine [Mass ratio] 9.0 mg/mg 10-20 [facility] Work Phone: Laboratory - Hematology and Cell countson 09-06-2021 Erythrocyte distribution width (RBC) [Entitic vol] 39.2 fL 35.1-43.9 [facility] Work Phone: Erythrocyte distribution width (RBC) [Ratio] 13.3 % 11.6-14.6 [facility] Work Phone: Immature granulocytes/100 WBC (Bld) 0.100 % 0.0-0.9 [facility] Work Phone: Comment on above: IG% - Immature Granu locytes (promyelocytes, myelocytes and metamyelocytes) > 1% indicates that a LEFT SHIFT is Present. MCH (RBC) [Entitic mass] 27.2 pg 27.0-32.0 [facility] Work Phone: Nucleated RBC/100 WBC (Bld) [Ratio] 0 % 0-5 [facility] Work Phone: MCHC Auto (RBC) [Mass/Vol]on 09-06-2021 MCHC (RBC) [Mass/Vol] 33.6 g/dL 32-36 [facility] Work Phone: No Panel Informationon 09-06 Estimated Creatinine Clearance Calc 129.47 ml/min [facility] Work Phone: Estimated GFR (MDRD) Amer 149 mL/min >60 [facility] Work Phone: Comment on above: GFR Calc Estimated GFR (MDRD) Non-Af Amer 123 mL/min >60 [facility] Work Phone: Comment on above: Non- GFR Calc Platelets bldon 09-06-2021 Platelets (Bld) [#/Vol] 254 10*3/uL 150-450 [facility] Work Phone: Serum or plasma albumin simone urement (mass/volume)on 09-06-2021 Albumin [Mass/Vol] 3.4 g/dL 3.2-5.0 [facility] Work Phone: Serum or plasma albumin/glob ulin mass ratioon 09-06-2021 Albumin/Globulin [Mass ratio] 1.1 {ratio} 0.9-2.4 [facility] Work Phone: Serum or plasma calcium simone urement (mass/volume)on 09-06-2021 Calcium [Mass/Vol] 8.6 mg/dL 8.5-10.1 [facility] Work Phone: Serum or plasma creatinine m easurement (mass/volume)on 09-06-2021 Creatinine [Mass/Vol] 0.78 mg/dL 0.70-1.30 [facility] Work Phone: Comment on above: The validity of the calculated GFR & GFRAA in patients over 70 years has not been determined. Clinical correlation is essential. Serum or plasma urea nitroge n measurement (mass/volume)on 09-06-2021 Urea nitrogen [Mass/Vol] 7 mg/dL 7-18 [facility] Work Phone: Thin prep Papanicolaou smear with manual screeningon 09-06-2021 Thin prep Papanicolaou smear with manual screening 9 U/L 15-37 [facility] Work Phone: Thin prep Papanicolaou smear with manual screening 7 5-15 [facility] Work Phone: Absolute lymphocyte counton 09-01-2021 Lymphocytes Auto (Unsp spec) [#/Vol] 2.39 10*3/uL 0.83-4.51 [facility] Work Phone: Basophil percentageon 2021 Basophil percentage 0 SEEN /hpf 0-5 [facility] Work Phone: Basophils/100 WBC (Bld) 0.3 % 0-1 [facility] Work Phone: Bilirubin [Mass/Vol] 0.20 mg/dL 0.20-1.00 [facility] Work Phone: [phone] Comment on above: For patients on eltr ombopag therapy, use of Dimension [place] TBIL is not recommended. Chloride [Moles/Vol] 106 mmol/L 98-107 [facility] Work Phone: Eosinophils/100 WBC (Bld) 3.5 % 0-5 [facility] Work Phone: Glucose [Mass/Vol] 100 mg/dL 74-106 [facility] Work Phone: Comment on above: Fasting Glucose resu lt from 100 to 125 mg/dL suggests IMPAIRED HOMEOSTASIS per A.D.A. criteria. Neutrophils (Bld) [#/Vol] 6.2 10*3/uL 2.0-7.7 [facility] Work Phone: Neutrophils/100 WBC (Bld) 64.5 % 47-70 [facility] Work Phone: Potassium [Moles/Vol] 3.4 mmol/L 3.5-5.1 [facility] Work Phone: Protein [Mass/Vol] 6.6 g/dL 6.4-8.2 [facility] Work Phone: Sodium [Moles/Vol] 140 mmol/L 136-145 [facility] Work Phone: WBC (Bld) [#/Vol] 9.6 10*3/uL 4.4-11.0 [facility] Work Phone: Bilirubin Test strip Ql (U)o n 09-01-2021 Bilirubin Ql (U) Negative Negative [facility] Work Phone: [phone] Blood erythrocytes count (nu mber/volume)on 09-01-2021 RBC (Bld) [#/Vol] 5.03 10*6/uL 4.6-6.2 [facility] Work Phone: Blood hemoglobin measurement (mass/volume)on 09-01-2021 Hemoglobin (Bld) [Mass/Vol] 13.9 g/dL 13.0-16.5 [facility] Work Phone: Blood lymphocytes/100 leukoc yteson 09-01-2021 Lymphocytes/100 WBC (Bld) 24.9 % 19-41 [facility] Work Phone: Blood monocytes/100 leukocyt eson 09-01-2021 Monocytes/100 WBC (Bld) 6.6 % 0-10 [facility] Work Phone: Blood platelet mean volumeon 09-01-2021 Platelet mean volume (Bld) [Entitic vol] 10.3 fL 6.2-12.0 [facility] Work Phone: Determination of erythrocyte mean corpuscular volume (MCV)on 09-01-2021 MCV (RBC) [Entitic vol] 83.9 fL 80-94 [facility] Work Phone: Hematocrit Auto (Bld) [Volum e fraction]on 09-01-2021 Hematocrit (Bld) [Volume fraction] 42.2 % 40-54 [facility] Work Phone: Ketones Test strip Ql (U)on 09-01-2021 Ketones Ql (U) Negative Negative [facility] Work Phone: Laboratory - Chemistry and C hemistry - challengeon 09-01-2021 ALP [Catalytic activity/Vol] 77 U/L 45-117 [facility] Work Phone: ALT [Catalytic activity/Vol] 14 U/L 16-61 [facility] Work Phone: CO2 [Moles/Vol] 26.0 mmol/L 21.0-32.0 [facility] Work Phone: Globulin (S) [Mass/Vol] 3.0 g/dL 2.2-4.2 [facility] Work Phone: Lipase [Catalytic activity/Vol] 159 U/L 73-393 [facility] Work Phone: Urea nitrogen/Creatinine [Mass ratio] 6.2 mg/mg 10-20 [facility] Work Phone: Laboratory - Hematology and Cell countson 09-01-2021 Erythrocyte distribution width (RBC) [Entitic vol] 44.1 fL 35.1-43.9 [facility] Work Phone: Erythrocyte distribution width (RBC) [Ratio] 14.6 % 11.6-14.6 [facility] Work Phone: Immature granulocytes/100 WBC (Bld) 0.200 % 0.0-0.9 [facility] Work Phone: Comment on above: IG% - Immature Granu locytes (promyelocytes, myelocytes and metamyelocytes) > 1% indicates that a LEFT SHIFT is Present. MCH (RBC) [Entitic mass] 27.6 pg 27.0-32.0 [facility] Work Phone: Nucleated RBC/100 WBC (Bld) [Ratio] 0 % 0-5 [facility] Work Phone: MCHC Auto (RBC) [Mass/Vol]on 09-01-2021 MCHC (RBC) [Mass/Vol] 32.9 g/dL 32-36 [facility] Work Phone: Mucus LM Ql (Urine sed)on Mucus Ql (Urine sed) 0 SEEN /hpf [facility] Work Phone: Nitrite Test strip Ql (U)on 09-01-2021 Nitrite Ql (U) Negative Negative [facility] Work Phone: No Panel Informationon 09-01 Estimated Creatinine Clearance Calc 105.19 ml/min [facility] Work Phone: Estimated GFR (MDRD) Amer 117 mL/min >60 [facility] Work Phone: Comment on above: GFR Calc Estimated GFR (MDRD) Non-Af Amer 97 mL/min >60 [facility] Work Phone: Comment on above: Non- GFR Calc Platelets bldon 09-01-2021 Platelets (Bld) [#/Vol] 289 10*3/uL 150-450 [facility] Work Phone: Protein Test strip Ql (U)on 09-01-2021 Protein Ql (U) Negative Negative [facility] Work Phone: Serum or plasma albumin simone urement (mass/volume)on 09-01-2021 Albumin [Mass/Vol] 3.6 g/dL 3.2-5.0 [facility] Work Phone: Serum or plasma albumin/glob ulin mass ratioon 09-01-2021 Albumin/Globulin [Mass ratio] 1.2 {ratio} 0.9-2.4 [facility] Work Phone: Serum or plasma calcium simone urement (mass/volume)on 09-01-2021 Calcium [Mass/Vol] 8.7 mg/dL 8.5-10.1 [facility] Work Phone: Serum or plasma creatinine m easurement (mass/volume)on 09-01-2021 Creatinine [Mass/Vol] 0.96 mg/dL 0.70-1.30 [facility] Work Phone: Comment on above: The validity of the calculated GFR & GFRAA in patients over 70 years has not been determined. Clinical correlation is essential. Serum or plasma urea nitroge n measurement (mass/volume)on 09-01-2021 Urea nitrogen [Mass/Vol] 6 mg/dL 7-18 [facility] Work Phone: Squamous epithelial cells de tection in urine sediment by light microscopyon 09-01-2021 Epithelial cells.squamous LM Ql (Urine sed) 0 SEEN /hpf 0-5 [facility] Work Phone: Thin prep Papanicolaou smear with manual screeningon 05-08-2022 Thin prep Papanicolaou smear with manual screening 10 U/L 15-37 [facility] Work Phone: Thin prep Papanicolaou smear with manual screening 8 5-15 [facility] Work Phone: Urine blood detectionon -0 RBC Ql (U) Negative Negative [facility] Work Phone: RBC Ql (U) 0 SEEN /hpf 0-5 [facility] Work Phone: Urine clarityon 09-01-2021 Clarity (U) Clear Clear [facility] Work Phone: Urine color determinationon 09-01-2021 Color (U) Yellow Yellow [facility] Work Phone: Urine glucose detectionon Glucose Ql (U) Normal mg/dl Normal [facility] Work Phone: Urine leukocyte esterase det ection by dipstickon 09-01-2021 Leukocyte esterase Test strip Ql (U) Negative Negative [facility] Work Phone: Urine pHon 09-01-2021 pH (U) 6.0 [pH] 5.0 - 8.0 [facility] Work Phone: Urine sediment bacteria coun t by microscopy (number/high power field)on 09-01-2021 Bacteria LM.HPF (Urine sed) [#/Area] 0 /[HPF] None Seen [facility] Work Phone: Urine specific gravity measu rementon 09-01-2021 Specific gravity (U) [Rel density] 1.015 1.002-1.030 [facility] Work Phone: Urobilinogen Auto test strip Ql (U)on 09-01-2021 Urobilinogen Ql (U) Normal mg/dl Normal [facility] Work Phone: LABORATORYOrdered By: Harpreet Greer [...] SS UAon 03-22-2021 Color (U) Yellow Normal [facility] ([place]) Comment on above: Performed By: #### U A #### [address] [address] Glucose (U) [Mass/Vol] Negative Normal Negative [facility] ([place] Comment on above: Performed By: #### U A #### [address] [address] Ketones Ql (U) Negative Normal Negative [facility] ([place]) Comment on above: Performed By: #### U A #### [address] [address] UA Appear Clear Normal Clear [facility] ([place]) Comment on above: Performed By: #### U A #### [address] [address] UA Blood Negative Normal Negative [facility] ([place]) Comment on above: Performed By: #### U A #### [address] [address] UA Leuk Est Negative Normal Negative [facility] ([place]) Comment on above: Performed By: #### U A #### [address] [address] UA Nitrite Negative Normal Negative [facility] ([place]) Comment on above: Performed By: #### U A #### [address] [address] UA pH 7.0 Normal 5.0 - 8.0 [facility] ([place]) Comment on above: Performed By: #### U A #### [address] [address] UA Protein Negative Normal Negative [facility] ([place]) Comment on above: Performed By: #### U A #### [address] [address] UA Spec Grav 1.015 Normal 1.015-1.025 [facility] ([place]) Comment on above: Performed By: #### U A #### [address] [address] UA Specimen Type Clean Catch Normal [facility] ([place]) Comment on above: Performed By: #### U A #### [address] [address] UA Urobilinogen 0.2 E.U./dL Normal 0.2-1.0 [facility] ([place]) Comment on above: Performed By: #### U A #### [address] [address] Urobilinogen (U) [Mass/Vol] Negative Normal Negative [facility] ([place]) Comment on above: Performed By: #### U A #### [address] [address] XR Abdomen Supine and Uprigh ton 01-30-2020 IMPRESSION: Normal radiographs of the abdomen. Technical Support Engineer: MINERVA Transcribe Date/Time: Jan 30 2020 1:11P Dictated by : YOUNG BOJORQUEZ DO This examination was interpreted and the report reviewed and electronically signed by: YOUNG BOJORQUEZ DO on Jan 30 2020 1:12PM [facility] DIVISION OF RADIOLOGY * * *Final Report* [...] with Epigastric pain 30y/o male seen at [facility] ER last week for GI pain. Continues [...] No displaced fractures. DIVISION [facility] RADIOLOGY [facility] * * *Final Report* * [...] with Epigastric pain 30y/o male seen at [facility] ER last week for GI pain. Continues [...] IMPRESSION IMPRESSION: Normal radiographs of the abdomen. Technical Support Engineer: MINERVA Transcribe Date/Time: Jan 30 2020 1:11P Dictated by : YOUNG BOJORQUEZ DO This examination was interpreted and the report reviewed and electronically signed by: YOUNG BOJORQUEZ DO on Jan 30 2020 1:12PM EST [facility] Radiology Study observation (narrative) [facility] XR Abdomen Supine and Uprigh tOrdered By: [facility] Provider on 01-30-2020 [facility] CASE MANAGEMon 03-13-2017 CASE MANAGEM HNO ID: [id number] thor: Jessica Parikh () DanzingerService: Social WorkAuthor Type: Social WorkerType: Care Mgt Progress NoteFiled: 03/13/2017 10:32 AMNote Text:BEHAVIORAL HEALTH SOCIAL WORK DISCHARGE NOTESERVICE DATE: 03/13/2017SERVICE TIME: 10:25 AMPATIENT'S DISCHARGE PLAN:Discharge DispositionNursing Home Referral InformationResidential [facility] Center Referral Information[facility] Referral InformationCrisis Stabilization UnitAcute Care Facility Referral InformationAssisted Living Facility Referral InformationHome Care Agency Referral InformationContact PersonGuardianPsychiatry Follow-Up AppointmentMedical Follow-Up AppointmentCounselor Referral InformationCase Management Referral Information Veterinary Surgery Technician Name: (Fred @ [employer])Agency: ([phone])Family Psychoeducational ([facility]) Follow-Up AppointmentInsurance Veterinary Surgery Technician Name: Darion Bonilla#: [phone] Dependency Care - Intensive Outpatient/Partial Hospital ProgramBehavioral [...] morning with the plan tomeet up with Veterinary Surgery Technician from [facility]. Pt reported tpo treatmentteam that I am going to take advantage of this plan [facility] like a four month program in [place] withanother 10 months in [place]. I really want this to work. This writerspoke with Fred @ [employer] who states that when the pt is with hisparents they will call him with their arrival time for intake. POt isbeing sent with filled p[rescriptions and copies of his demographic sheetfor insurance informationSIGNATURE: YOSEF Canales PATIENT NAME: Matty WhitlockDATE: March 13, 2017 : 10:25 [facility] HNO ID: [id number] thor: Julianna Mei: (none)Author Type: PhysicianType: Discharge SummariesFiled: 03/17/2017 9:36 AMNote Text:DISCHARGE SUMMARY BEHAVIORAL HEALTHPATIENT NAME: Matty Whitlock ADMISSION DATE: 02/27/2017MRN: [id number] DISCHARGE DATE: 03/13/2017ATTENDING PHYSICIAN: Julianna Cardona FOR [...] is in goodcontrol and quite lucid at ut.LABS AND PROCEDURES PENDING AT DISCHARGE: No pending [...] APPOINTMENTS:Discharge Information Admission (Current) from 02/27/2017 in [facility] [place] [address] [address] [employer] Name Darion Dodd LASL OF CARE: Discharge Management: I personally spent less than 30minutes involved in the discharge management of this patient.SIGNATURE: Julianna Escalera MD PATIENT NAME: Matty WhitlockDATE: March 13, 2017 : 8:16 AM [facility] NURSING PROGon 03-13-2017 NURSING PROG HNO ID: [id number] thor: Regina Paez (Rn) SHIREEN Morejonervice: NursingAuthor Type: Registered NurseType: Nursing Progress NoteFiled: 03/13/2017 11:28 AMNote Text:Nursing Progress Note Topic of Note:Daily NoteLanvasquez [id number] is neatly dressed and pleasant on approach. He is looking forward tobeing discharged today and [place] [facility] [place].He was receptive to medication teaching at discharge. Mom with patient'spermission was given a copy of his home going medications.This note was completed by: Regina Morejon RN [facility] NURSING PROG HNO ID: [id number] thor: Cori (Rn) Boyd Qiuice: (none)Author Type: Registered NurseType: Nursing Progress NoteFiled: 03/13/2017 6:18 AMNote Text: Nursing Progress NotePatient Name: Matty WhitlockMRN: [id number] Location: [id number]/[place] [id number]*_ Daily Note:Assumed care of pt from . Report received fromprevious shift. At beginning of [...] completed by: Cori Qiu RN [facility] PROGRESSon 03-13-2017 PROGRESS HNO ID: [id number] thor: Palmira Rowe (Pa): PsychiatryAuthor Type: Physician AssistantType: Progress NotesFiled: 03/13/2017 8:41 AMNote Text:NORMA NotePatient to be discharged today. Medications reviewed with Dr. Andrews. Medication reconciliation and prescriptions completed.Prescriptions electronically sent to bedside delivery service to befilled prior to discharge. Javan Whitlock Medication Instructions DOMONIQUE:[id number] Printed on:03/13/[address] ([place]) 250 [...] as needed.Chaparro Causey 20168:41 AM [facility] ALLIED HEALTHon 03-12-2017 Creatinine HNO ID: [id number] thor: Sr. Denney ([facility]) Quang MTService: Recreational TherapyAuthor Type: TherapistType: Allied HealthFiled: 03/12/2017 [...] to promotehealthy coping and social skills.SIGNATURE: Sr. Denney Quang [facility] PATIENT NAME: Matty EliasTE: March 12, 2017 : 3:29 PM PAGER/CONTACT #: [facility] CASE MANAGEMon 03-12-2017 CASE MANAGEM HNO ID: [id number] thor: Regina [place] ([place])Service: Behavioral HealthAuthor Type: [...] a local provider that they use, possibly [employer].SIGNATURE: YOSEF Forte PATIENT NAME: Matty WhitlockDATE: March 12, 2017 : 3:14 PM [facility] NURSING PROGon 03-12-2017 NURSING PROG HNO ID: [id number] thor: Romi Gifford (Rn) Branden, RNService: NursingAuthor Type: Registered NurseType: Nursing Progress NoteFiled: 03/12/2017 6:21 PMNote Text: Nursing Progress NotePatient Name: Matty WhitlockMRN: [id number] Location: [place] [address]/[facility]_ Daily Note:Pt is in control. He c/o [...] completed by: Romi Otero RN [facility] NURSING PROG HNO ID: [id number] thor: Anna Sullivan Lpn: (none)Author Type: LICENSED NURSEType: Nursing Progress NoteFiled: 03/12/2017 8:01 AMNote Text: Nursing Progress NotePatient Name: Matty WhitlockMRN: [id number] Location: BB-WCD6-7822/[place] [address]*_ Daily Note:0000 Report received from previous shift. Patient resting inbed,eyes closed. Q15 minute safety checks maintained. Will continue tomonitor.0700 Patient slept majority of shift. No somatic complaints voiced.Status unremarkable. Patient slept 7 hours. Will continue to monitor.This note was completed by: Danica Fish LPN [facility] NURSING PROG HNO ID: [id number] thor: Anna Diez Lpn: NursingAuthor Type: LICENSED NURSEType: Nursing Progress NoteFiled: 03/12/2017 12:06 PMNote Text: Nursing Progress NotePatient Name: Matty WhitlockMRN: [id number] Location: [place] [address]/[place] [address]*_ Daily Note:Patient is alert and oriented X3. He is neatly dressed in street clothes. Mood and affect are euthymic. He has remained pleasant and cooperativewith all nursing measures. He has been medication compliant. Remainsseclusive to self and room. Out for meals only. Appetite is god. Willcontinue to monitor on Q 15 minute safety checks.This note was completed by: Alejandra Morales LPN [facility] NUTRITIONon 03-12-2017 NUTRITION HNO ID: [id number] thor: Roly Zelayaervice: Nutrition TherapyAuthor Type: Registered DietitianType: NutritionFiled: 03/12/2017 6:46 AMNote Text:NUTRITION THERAPY SCREENING NOTESERVICE DATE: 03/12/2017SERVICE TIME: 6:45 AMNUTRITION CARE PLANPatient's weight is stable and nutritional intake is adequate. Patient isnot at risk for malnutrition at this time.Intervention:- Regular dietDischarge Nutrition Recommendations:Diet: RegularPt screened per LOS policy. Pt eating well per terminal carman with nosignificant changes in weight. Continue to monitor and intervene per LOSpolicy or upon consultation.Present Diet Order: RegularAdmission Weight: 77.1 kg (170 lb)Current Weight: 77.1 kg (170 lb)Body mass index is 26.63 kg/(m2). overweightWeight has not changed.MNT Billing Type: Re-assess/15 min 1 unitSIGNATURE: Roly Love RD PATIENT NAME: Matty WhitlockDATE: March 12, 2017 : 6:45 AM PAGER: [phone] [facility] PROGRESSon 03-12-2017 PROGRESS HNO ID: [id number] thor: Julianna Mei: (none)Author Type: PhysicianType: Progress NotesFiled: 03/12/2017 9:27 [...] 77.1 kg (170 lb) SpO2 98% BMI 26.63kg/m9OEMARE STATUS EXAMINATION:Appearance: Appears stated age and In [...] 12, 2017 : 10:10 AM [facility] CASE MANAGEMon 03-11-2017 CASE MANAGEM HNO ID: [id number] thor: Regina Houston (Sw)Service: Behavioral HealthAuthor Type: Social WorkerType: Care Mgt Progress NoteFiled: 03/11/2017 2:12 PMNote Text:BEHAVIORAL HEALTH SOCIAL WORKPROGRESS NOTESERVICE DATE: 03/11/2017SERVICE TIME: 2:06 pmSocial work continued to assist patient in contacting treatmentfacilities. Patient's mother faxed another list of treatmentpossibilities. SERAFIN contacted [facility] and was told there are no beds currentlyand the patient can try again in about one month. Left another message forintake at [facility] in [place]. Serafin spoke with Aiyana renlynne be emailing an application to this worker. There are openings but a$500 charge initially. Diya Sanabria has a treatment cost of $23,000. Thepatient would need to complete an intake appointment after dischargebefore he can be considered at the [facility]. A message was leftfor the [facility] and [facility]. In summary,patient has been unable to secure a treatment facility to date. SERAFIN willcontinue to assist.SIGNATURE: YOSEF Forte PATIENT NAME: Matty WhitlockDATE: March 11, 2017 : 2:06 PM [facility] NURSING PROGon 03-11-2017 NURSING PROG HNO ID: [id number] thor: LAURIE Diez Lpnervice: NursingAuthor Type: LICENSED NURSEType: Nursing Progress NoteFiled: 03/11/2017 7:28 PMNote Text: Nursing Progress NotePatient Name: Matty WhitlockMRN: [id number] Location: [id number]/[place] [address]*_ Daily Note:Patient remains mostly seclusive to self and bed and out for meals. Hedid meet with the manager social work and made a few phone calls late thisafternoon. Ate well at supper. Presently in bed sleeping. Will continueto monitor on Q 15 minute safety checks.This note was completed by: Alejandra Morales LPN [facility] NURSING PROG HNO ID: [id number] thor: LAURIE Diez Lpnervice: NursingAuthor Type: LICENSED NURSEType: Nursing Progress NoteFiled: 03/11/2017 12:55 PMNote Text: Nursing Progress NotePatient Name: Matty RainN: [id number] Location: [place] [address]/[place] [address]*_ Daily Note:Patient is alert and oriented X3. [...] completed by: Alejandra Morales LPN [facility] PROGRESSon 03-11-2017 PROGRESS HNO ID: [id number] thor: Julianna EscaleraService: (none)Author Type: PhysicianType: Progress [...] 77.1 kg (170 lb) SpO2 98% BMI 26.63kg/j2UHRSQZ STATUS EXAMINATION:Appearance: Appears stated age and In [...] Escalera MD PATIENT NAME: Matty EliasTE: March 11, 2017 : 10:10 AM [facility] CASE MANAGEMon 03-10-2017 CASE MANAGEM HNO ID: [id number] thor: Regina Akers) JunService: Behavioral HealthAuthor Type: Social WorkerType: Care Mgt Progress NoteFiled: 03/10/2017 3:29 PMNote Text:BEHAVIORAL HEALTH SOCIAL WORKPROGRESS NOTESERVICE DATE: 03/10/2017SERVICE TIME: 3:23 pmFamily meeting this morning with patient's parents who are requestingpatient be discharged to a residential drug treatment program. Mother hasprovided the patient with a list of programs to contact. SERAFIN assistedpatient in speaking with Darci at [facility], which is 18 monthslong. She will discuss with her team and call back. Also left anothermessa for [facility] in [place]. Spoke with Joanen Simental, which is an outpatient program.Patient feels parents are managing his treatment plan. I am a grown manand should be able to make my own decisions. He is not interested in anyof the above programs. He wants to be discharged to the [facility] [place], where he has been in the past. He is familiar with theoutpatient substance abuse and mental health programs there. He is willingto follow up with both.SIGNATURE: YOSEF Forte PATIENT NAME: Matty EliasTE: March 10, 2017 : 3:23 PM [facility] NURSING PROGon 03-10-2017 NURSING PROG HNO ID: [id number] thor: Alesia (Rn) Leonardo Mays: (none)Author Type: Registered NurseType: Nursing Progress NoteFiled: 03/11/2017 6:24 AMNote Text: Nursing Progress NotePatient Name: Matty RainN: [id number] Location: VQ-[id number]/[facility]-015*_ Daily Note:Patient denies suicidal and homicidal ideations, delusions andhallucinations. He is pleasant on approach and cooperative with vitalsigns. Matty is seclusive to room and self and ate snack. He receivedscheduled evening medications and Trazodone PRN for sleep. Matty sleptmajority of night with no complaints.This note was completed by: Alesia Myas RN [facility] NURSING PROG HNO ID: [id number] thor: Romi Gifford (Azael) Leonardo Otero: NursingAuthor Type: Registered NurseType: Nursing Progress NoteFiled: 03/10/2017 7:04 PMNote Text: Nursing Progress NotePatient Name: Matty RainN: [id number] Location: ZM-AOS0-7013/[facility]1-015*_ Daily Note:Pt has been med seeking, stated [...] completed by: Romi Otero RN [facility] NURSING PROG HNO ID: [id number] thor: Anna Sullivan Lpn: (none)Author Type: LICENSED NURSEType: Nursing Progress NoteFiled: 03/10/2017 9:57 AMNote Text: Nursing Progress NotePatient Name: Matty WhitlockMRN: [id number] Location: [place] [address]/[place] [address]*_ Daily Note:0000 Report received from previous shift. Patient resting inbed,eyes closed. Q15 minute safety checks maintained. Will continue tomonitor.0700 Patient slept majority of shift. No somatic complaints voiced.Status unremarkable. Patient slept 7 hours. Will continue to monitor.This note was completed by: Danica Fish LPN [facility] NURSING PROG HNO ID: [id number] thor: Anna Gruber Lpn: (none)Author Type: LICENSED NURSEType: Nursing Progress NoteFiled: 03/09/2017 10:09 PMNote Text: Nursing Progress NotePatient Name: Matty WhitlockMRN: [id number] Location: XP-VRC0-9469/[place] [address]*_ Daily Note:Pt has been up on intervals. [...] completed by: Brandon Fletcher LPN [facility] PROGRESSon 03-10-2017 PROGRESS HNO ID: [id number] thor: Julianna EscaleraService: (none)Author Type: PhysicianType: Progress NotesFiled: 03/10/2017 8:26 AMNote Text:PROGRESS NOTE BEHAVIORAL HEALTHSERVICE DATE: 03/10/2017SERVICE TIME: 10:10 AMThe Interdisciplinary team met and reviewed treatment goals and dischargeplanning.SUBJECTI VESeen in office, reasonable and in control. Seen with parents Abiola muraliImtiaz. They were concerned re dx, dual dx, and emphasized that pt needsserious inpt drug treatment. Pt accepted the challenge to completecontacting agenices, of which 3 seem to have beds: [facility]; [facility]; [facility]. Matty understands he needs initiatearrangements, though [...] 77.1 kg (170 lb) SpO2 98% BMI 26.63kg/s4IJBCVE STATUS EXAMINATION:Appearance: Appears stated age and In [...] WhitlockDATE: March 10, 2017 : 10:10 AM [facility] HEALTHon 03-09-2017 Creatinine HNO ID: [id number] thor: Sr. Denney ([facility]) Yariel Del Rioice: Recreational TherapyAuthor Type: TherapistType: Allied HealthFiled: 03/09/2017 [...] JOSUE Bardales PATIENT NAME: Matty EliasTE: March 09, 2017 : 1:06 PM PAGER/CONTACT #: [facility] CASE MANAGEMon 03-09-2017 CASE MANAGEM HNO ID: [id number] thor: Regina Plata (Sw) JunService: Behavioral HealthAuthor Type: Social WorkerType: Care Mgt Progress NoteFiled: 03/09/2017 3:15 PMNote Text:BEHAVIORAL HEALTH SOCIAL WORKPROGRESS NOTESERVICE DATE: 03/09/2017SERVICE TIME: 11:00 amSat with patient while he called treatment facilities.SERAFIN faxed a referral to [facility] (fax: [phone] (Fred)). . They have a 2-4 week waiting list. ELLIE signed.[facility] ([phone]). Patient is not very interestedin this because it is a very restrictive, 18-month program.[facility] ([phone]). Patient was told to callJulianna Almanzar (coordinator) [...] the agencies could not be reached.SIGNATURE: Susana PERESI PATIENT NAME: Matty WhitlockDATE: March 09, 2017 : 10:59 AMSupervising Hardboard Grinder AttestationI have reviewed the above documentation.I agree with the findings and plan as documented.SIGNATURE: YOSEF Forte PATIENT NAME: Matty EliasTE: March 09, 2017 : 3:14 PM [facility] CASE MANAGEM HNO ID: [id number] thor: Regnia Plata (Sw) JunService: Behavioral HealthAuthor Type: Social WorkerType: Care t Progress NoteFiled: 03/09/2017 8:09 AMNote Text:BEHAVIORAL HEALTH [...] remains seclusive. SW will continue to follow.SIGNATURE: YOSEF Forte PATIENT NAME: Matty WhitlockDATE: March 09, 2017 : 8:02 AM [facility] NURSING PROGon 03-09-2017 NURSING PROG HNO ID: [id number] thor: Jv DodgeRn) SHIREEN Clarkervice: (none)Author Type: Registered NurseType: Nursing Progress NoteFiled: 03/09/2017 6:27 AMNote Text: Nursing Progress NotePatient Name: Matty WhitlockN: [id number] Location: [place] [address]*_ Daily Note:0000 Patient report received from previous shift. Patient resting in bedwith eyes closed. Safety checks per unit protocol. Will continue tomonitor.0600 Patient slept throughout shift without incident or complaint.Continuing to monitor.This note was completed by: Jv Clark RN [facility] NURSING PROG HNO ID: [id number] thor: Koko (Rn) SHIREEN Jeffrieservice: (none)Author Type: Registered NurseType: Nursing Progress NoteFiled: 03/09/2017 12:23 PMNote Text: Nursing Progress NotePatient Name: Matty WhitlockN: [id number] Location: KT-UBQ1-2340/[facility]015*_ Patient out of room for morning meal, [...] patient request.This note was completed by: Koko Ellis RN [facility] NURSING PROG HNO ID: [id number] thor: Khanh Mendoza ([facility]) Rylee Ordoñez: (none)Author Type: Behavorial Health AssistantType: Nursing Progress NoteFiled: 03/09/2017 2:04 PMNote Text: Nursing Progress NotePatient Name: Matty WhitlockMRN: [id number] Location: RI-ODM3-2414/[place] [id number]*_ Daily Note:0904 Pt was in room upon [...] .This note was completed by: Khanh Ordoñez [facility] PROGRESSon 03-09-2017 PROGRESS HNO ID: [id number] thor: Julianna Mei: (none)Author Type: PhysicianType: Progress NotesFiled: 03/09/2017 8:56 AMNote Text:PROGRESS NOTE BEHAVIORAL HEALTHSERVICE DATE: 03/09/2017SERVICE TIME: 10:10 AMThe Interdisciplinary team met and reviewed treatment goals and dischargeplanning.SUBJECTI VESeen in office, reasonable and in control. Proposes going to the [facility] in [place], a residential. SW thought he had been banned from [...] kg (170 lb) SpO2 98% BMI 26.63 kg/w4ALOWZC STATUS EXAMINATION:Appearance: Appears stated age and In [...] PRNDATA:Diagnostic tests reviewed for today's visit:Results for ALEJO MATTY ( ) as of 03/04/2017 09:44 Ref. [...] WhitlockDATE: March 09, 2017 : 10:10 AM Normal [facility] Valproic Acidon 03-09-2017 Valproic Acid 93.8 ug/mL Normal 50-100 [facility] Comment on above: Result Comment: Refe rence ranges and high/low indicator flags are provided as general guidelines only. The treating physician must determine appropriate target levels/dosing based on the specific clinical situation. Performed By: #### L IPB, HBA1C ####[facility] [address] [place], [place] [id number] NURSING PROGon 03-08-2017 NURSING PROG HNO ID: [id number] thor: Jeanne Manuel (Rn) SHIREEN Pattenervice: (none)Author Type: Registered NurseType: Nursing Progress NoteFiled: 03/08/2017 9:24 PMNote Text: Nursing Progress NotePatient Name: Matty WhitlockMRN: [id number] Location: [place] [address]/[address]*_ Daily Note:ssumed care of pt, pt walking back and forth to room. Pleasantasking about snack. Pt had conversation with RN regarding reason for beingin hospital. Pt denies SI. Pt sitting on table having evening snack.2120 pt in common area, Hs meds tolerated. Prn trazodone given per ptsrequest.This note was completed by:Jeanne Patten, AZAEL [facility] NURSING PROG HNO ID: [id number] thor: Anna Sams Lpn: (none)Author Type: LICENSED NURSEType: Nursing Progress NoteFiled: 03/08/2017 6:52 PMNote Text: Nursing Progress NotePatient Name: Matty WhitlockN: [id number] Location: XA-MMR8-4070/[place] [address]*_ Daily Note: Assessed as charted, seclusive to room, only in common areafor meals and medicines, no social interaction with peers, not attendinggroups, denies thoughts of harming self or others, denies andhallucinations, cooperative with staff, compliant with medicines, PRNativan providing relief of anxiousness, tylenol providing relief ofgeneralized pain, nicotine gum helping with cigarette cravings, goodappetite.This note was completed by: Leonel Magaña LPN [facility] NURSING [facility] ID: [id number] thor: Kamilla DodgePullman Regional HospitalVibha Colon: (none)Author Type: Behavioral Health TechType: Nursing Progress NoteFiled: 03/08/2017 6:08 AMNote Text: Nursing Progress NotePatient Name: [facility]lockST[facility]: [id number] Location: UK-EWX8-5165/[facility]1-015*_ Daily Note:Report from previous shift received about the patient. Patient in bed andappeared to rest comfortably throughout the night with no S/S of pain ordistress. Q 15 minute checks observed and maintained for safety. Willcontinue to monitor.This note was completed by: Kamilla Almonte [facility] PROGRESSon 03-08-2017 PROGRESS HNO ID: [id number] thor: Julianna Mei: (none)Author Type: PhysicianType: Progress NotesFiled: 03/08/2017 8:42 AMNote Text:PROGRESS NOTE BEHAVIORAL HEALTHSERVICE DATE: 03/08/2017SERVICE TIME: 10:10 AMThe Interdisciplinary team met and reviewed treatment goals and dischargeplanning.SUBJECTI NINAeen in office, reasonable and in control. Says [...] 77.1 kg (170 lb) SpO2 98% BMI 26.63kg/l0YFICOW STATUS EXAMINATION:Appearance: Appears stated age and In [...] probablySIGNATURE: Julianna Escalera MD PATIENT NAME: Matty Saravia: March 08, 2017 : 10:10 AM [facility] NURSING PROGon 03-07-2017 NURSING PROG HNO ID: [id number] thor: Luciana (Rn) Chloe, RNService: NursingAuthor Type: Registered NurseType: Nursing Progress NoteFiled: 03/07/2017 4:11 PMNote Text: Nursing Progress NotePatient Name: Matty WhitlockN: [id number] Location: SL-VCX8-8287/[place] [address]*_ 1600- Patient approached nurses station complaining of anxiety. Whenoffered medication patient asked specifically for haldol with the ativansince it works better... In a shot... When patient was told he willreceive Ativan PO he responded, I guess no shots for me... in an annoyedmanner. Compliant with med.This note was completed by: Luciana Corona, RN [facility] NURSING PROG HNO ID: [id number] thor: Khanh Mendoza ([facility]) Rylee Ordoñez: (none)Author Type: Behavorial Health AssistantType: Nursing Progress NoteFiled: 03/07/2017 2:42 PMNote Text: Nursing Progress NotePatient Name: Matty WhitlockN: [id number] Location: YW-LEX6-5593/[place] [address]*_ Daily Note:1241 Pt was in room in AM @ start of shift , cooperative with vitals, medcomplaint , consumed 100% of both meals. Pt mother was in too picking supervisor allhis valuables from the safe , they [...] .This note was completed by: Khanh Ordoñez [facility] NURSING PROG HNO ID: [id number] thor: Vanessa Roy (Rn) , RNService: NursingAuthor Type: Registered NurseType: Nursing Progress NoteFiled: 03/07/2017 1:55 PMNote Text: Nursing Progress NotePatient Name: Matty WhitlockMRN: [id number] Location: [place] [address]/[place] [address]*_ Daily Note: Teamed with Mental Health Worker. [...] completed by: Vanessa Townsend RN [facility] PROGRESSon 03-07-2017 PROGRESS HNO ID: [id number] thor: Julianna Mei: (none)Author Type: PhysicianType: Progress NotesFiled: 03/07/2017 10:15 [...] 77.1 kg (170 lb) SpO2 98% BMI 26.63kg/d0DFCUQI STATUS EXAMINATION:Appearance: Appears stated age and In [...] 07, 2017 : 10:10 AM [facility] ALLIED HEALTHon 03-06-2017 Creatinine HNO ID: [id number] thor: YASH LongoriaSService: Recreational TherapyAuthor Type: TherapistType: Allied HealthFiled: 03/06/2017 3:38 PMNote Text:PROGRESS NOTE BEHAVIORAL HEALTHTopic of Note: Three Day NoteSERVICE DATE: 03/06/2017SERVICE TIME:335 the past couple days patient has not attended any structured groups. Pthas been seclusive to self and his room. Front End Architect has attempted to talkwith patient 1;1 today but patient with a flat affect appears depressedwalked away from technical report writer. Pt remains in Hospital attire. Will continue toencourage 1;1 socialization and group participationSIGNATURE: ADRIANO Longoria PATIENT NAME: Matty Saravia: March 06, 2017 : 3:35 PM PAGER/CONTACT #: [facility] CASE MANAGEMon 03-06-2017 CASE MANAGEM HNO ID: [id number] thor: Regina Plata () JunService: Behavioral HealthAuthor [...] his cat was gone but gave no specifics.fiber optic assembly worker did leave a list of treatment programs to contact withpatient in his room.SIGNATURE: YOSEF Forte PATIENT NAME: Matty WhitlockDATE: March 06, 2017 : 1:55 PM [facility] NURSING PROGon 03-06-2017 NURSING PROG HNO ID: [id number] thor: Luciana (Rn) Bob, SHIREENervice: Behavioral HealthAuthor Type: Registered NurseType: Nursing Progress NoteFiled: 03/07/2017 5:30 AMNote Text: Nursing Progress NotePatient Name: Matty WhitlockMRN: [id number] Location: AN-WMP5-3637/[address]*_ Daily Note:2100Report received from previous shift. Patient in bed resting, disheveledand withdrawn, denies suicidal thoughts or hallucinations. Patient up forsnack time, medication compliant. In control. Will continue to monitor.05:29Patient slept 7 hours, no prn medication needed during the night, incontrol.This note was completed by: Luciana Rojas RN [facility] NURSING PROG HNO ID: [id number] thor: Devin DodgeBanner Gateway Medical CenterCole Knightvice: Behavioral HealthAuthor Type: Behavorial Health AssistantType: Nursing Progress NoteFiled: 03/06/2017 8:32 PMNote Text: Nursing Progress NotePatient Name: Matty RainN: [id number] Location: QI-PRQ4-8156/[address]*_ Daily Note:2026 Pt has been seclusive to room and self coming out for dinner only thequickly back to room where he slept for the most of shift. Cooperative andpresented no behavioral problem. Mood and affect is depressed and flat.Conversation is clear but superficial and blunt. He denies S/HI and A/VH.Disheveled wearing hospital gowns.This note was completed by: Devin Mckay [facility] NURSING PROG HNO ID: [id number] thor: Alejandra DodgeBrand LeadLAURIE Nunezervice: NursingAuthor Type: LICENSED NURSEType: Nursing Progress NoteFiled: 03/06/2017 3:30 PMNote Text: Nursing Progress NotePatient Name: Matty RainN: [id number] Location: DA-LEL9-9825/[place] [address]*_ Daily Note:Patient is alert and oriented X3. Mood and affect are severely depressed. Patient states that he is hopeless and helpless. He makes threats ofsuicide if we don't medicate and sedate him. He was given IM PRN Haldoland Ativan at his request and per Order. He states that he will justloose it and anyone in his path will get hurt and ultimately he will alsodie. He denies any A/V hallucinations.. He has been mostly seclusive toroom. Comes out for meals. Appetite is adequate. Will continue tomonitor on Q 15 minute safety checks.This note was completed by: Alejandra Morales LPN [facility] NURSING PROG HNO ID: [id number] thor: Alejandra Morales LPNService: NursingAuthor Type: LICENSED NURSEType: Nursing Progress NoteFiled: 03/06/2017 2:26 PMNote Text: Nursing Progress NotePatient Name: Matty WhitlockMRN: [id number] Location: [place] [address]/[place] [address]*_ Daily Note:pThis note was completed by: Alejandra Morales LPN [facility] NUTRITIONon 03-06-2017 NUTRITION HNO ID: [id number] thor: Roly Zelayaervice: Nutrition TherapyAuthor Type: Registered DietitianType: NutritionFiled: 03/06/2017 6:14 AMNote Text:NUTRITION THERAPY SCREENING NOTESERVICE DATE: 03/06/2017SERVICE TIME: 6:10 AMNUTRITION CARE PLANPatient's weight is stable and nutritional intake is adequate. Patient isnot at risk for malnutrition at this time.Intervention:Regular dietDischarge Nutrition Recommendations:Diet: RegularScreen per LOS policy. Pt eating well per terminal carman. Continue tomonitor and intervene per LOS policy or upon consultation.Present Diet Order: RegularAdmission Weight: 77.1 kg (170 lb)Current Weight: 77.1 kg (170 lb)Body mass index is 26.63 kg/(m2). class 1 obesityWeight has not changed.MNT Billing Type: Initial Assess/15 min 1 unitSIGNATURE: Roly Love RD PATIENT NAME: Matty WhitlockDATE: March 06, 2017 : 6:13 AM PAGER: [phone] [facility] PLAN OF CAREon 03-06-2017 PLAN OF CARE HNO ID: [id number] thor: Alesia Charles (Pharmacist)Service: PharmacyAuthor Type: PharmacistType: Plan of CareFiled: 03/06/2017 9:15 AMNote Text:PHARMACY CURRENT MEDICATION ASSESSMENTPATIENT NAME: Matty WhitlockMRN: [id number] of SERVICE: 03/06/17TIME of SERVICE: 9:13 AMCurrent [...] a large copay and asked if this technical report writer could look into it. Verifiedwith insurance that the patient has a 0$ copay for this medication. Thereshould not be any issues upon discharge.SIGNATURE: ALESIA CHARLES, PHARMACISTExt: [id number]: March 06, 2017TIME: 9:12 AM [facility] PROGRESSon 03-06-2017 PROGRESS HNO ID: [id number] thor: Julianna Mei: (none)Author Type: PhysicianType: Progress NotesFiled: 03/06/2017 8:31 AMNote Text:PROGRESS NOTE BEHAVIORAL HEALTHSERVICE DATE: 03/06/2017SERVICE TIME: 10:10 AMThe Interdisciplinary team met and reviewed treatment goals and dischargeplanning.SUBJECTI Skyler in office with sw. Pt is provocative [...] 77.1 kg (170 lb) SpO2 98% BMI 26.63kg/p8QDCFVJ STATUS EXAMINATION:Appearance: Appears stated age and In [...] 06, 2017 : 10:10 AM [facility] CASE MANAGEMon 03-05-2017 CASE MANAGEM HNO ID: [id number] thor: Regina Houston (Sw)Service: Behavioral HealthAuthor Type: [...] may need tim placed in an animal residential. Currently patient is focused on returningto his place and is unable to consider correction plans. Parents would likehim to commit to residential substance abuse treatment.SIGNATURE: YOSEF Forte PATIENT NAME: Matty WhitlockDATE: March 05, 2017 : 1:33 PM [facility] NURSING PROGon 03-05-2017 NURSING PROG HNO ID: [id number] thor: Jessica (Rn) SHIREEN Cerdaervice: NursingAuthor Type: Registered NurseType: Nursing Progress NoteFiled: 03/06/2017 7:00 AMNote Text: Nursing Progress NotePatient Name: Matty WhitlockMRN: [id number] Location: [place] [address]/[place] [address]*_ Daily Note:1930: Received report and assumed care of patient. [...] completed by: Jessica Cerda RN [facility] NURSING PROG HNO ID: [id number] thor: Kiel Evans (Rn) SHIREEN Albertoervice: (none)Author Type: Registered NurseType: Nursing Progress NoteFiled: 03/05/2017 6:18 PMNote Text: Nursing Progress NotePatient Name: Matty WhitlockMRN: [id number] Location: [place] [address]/[address]*_ Daily Note:851 Report received from previous shift, pt visible [...] states he doesn't want to go to [facility] butmight consider short term rehab, [...] completed by: Kiel Alberto RN [facility] NURSING PROG HNO ID: [id number] thor: Jessica (Rn) Prashant, RNService: NursingAuthor Type: Registered NurseType: Nursing Progress NoteFiled: 03/05/2017 6:23 AMNote Text: Nursing Progress NotePatient Name: Matty WhitlockMRN: [id number] Location: [place] [address]*_ Daily Note:1929: Received report and assumed care of patient. Matty was sleeping inhis bed, resting comfortably.2048: Patient medication compliant with night time medications andrequested/received PRN Trazodone. Patient compliant with vital signs andstated he feels better than before. Patient denies SI/HI and AVH.Patient denies any pain at this time. He has stayed in his room allevening, mainly sleeping.0620: Patient has slept all night, did not come out of room at all.Patient has slept 11.5 hours. No behavioral issues observed overnight.Arm band intact, safety checks maintained per unit protocol.This note was completed by: Jessica Cerda RN [facility] PROGRESSon 03-05-2017 PROGRESS HNO ID: [id number] thor: Julianna Mei: (none)Author Type: PhysicianType: Progress NotesFiled: 03/05/2017 8:30 AMNote Text:PROGRESS NOTE BEHAVIORAL HEALTHSERVICE DATE: 03/05/2017SERVICE TIME: 10:10 AMThe Interdisciplinary team met and reviewed treatment goals and dischargeplanning.SUBJECTI VESeen in office with sw and pharmacist. More subdued, acknowledges he canbenefit from hospital. He wants help, agrees to continue with Seroquel.Mood is labile, irritated, unrealistic but not overtly psychotic. Pt saykwaku wants inpatient drug treatment and agrees to [...] 77.1 kg (170 lb) SpO2 97% BMI 26.63kg/h8WHTNHM STATUS EXAMINATION:Appearance: Appears stated age and In [...] 05, 2017 : 10:10 AM [facility] NURSING PROGon 03-04-2017 NURSING PROG HNO ID: [id number] thor: Kiel Evans (Rn) Boyd Albertoice: (none)Author Type: Registered NurseType: Nursing Progress NoteFiled: 03/04/2017 6:36 PMNote Text: Nursing Progress NotePatient Name: Matty WhitlockMRN: [id number] Location: [place] [address]/[address]*_ Daily Note:1005 Pt requested and received nicorette [...] anxiety and demanding the haldol injection, received qzlnau18 mg IM, will assess for results, will [...] reinforcement given.This note was completed by: Kiel Alberto, RN [facility] NURSING PROG HNO ID: [id number] thor: Khanh Mendoza ([facility]) Rylee Ordoñez: (none)Author Type: Behavorial Health AssistantType: Nursing Progress NoteFiled: 03/04/2017 2:19 PMNote Text: Nursing Progress NotePatient Name: Matty RainN: [id number] Location: [id number]/[place] [address]*_ Daily Note:0825 Pt was in room in [...] .This note was completed by: Khanh Ordoñez [facility] NURSING PROG HNO ID: [id number] thor: Tisha DodgeRn) SHIREEN Lynchervice: NursingAuthor Type: Registered NurseType: Nursing Progress NoteFiled: 03/04/2017 6:13 AMNote Text: Nursing Progress NotePatient Name: Matty RainN: [id number] Location: SU-SAZ1-0276/[facility]-[address]*_ Daily Note:2330 Received report and assumed care of patient. Patient resting quietlyin bed, eyes closed. Will continue to monitor.0612 Patient continues to sleep, 7 hours so far.Arm band intact, Q 15 minute safety checks maintained. Will continue tomonitor.This note was completed by: Tisha Lynch, RN [facility] NURSING PROG HNO ID: [id number] thor: Brandon Reyna) LAURIE Fletcherervice: (none)Author Type: LICENSED NURSEType: Nursing Progress NoteFiled: 03/03/2017 10:42 PMNote Text: Nursing Progress NotePatient Name: Matty WhitlockMRN: [id number] Location: [place] [address]/[place] [address]*_ Daily Note:Pt has been up for meals [...] completed by: Brandon Fletcher LPN [facility] PROGRESSon 03-04-2017 PROGRESS HNO ID: [id number] thor: Julianna Mei: (none)Author Type: PhysicianType: Progress [...] 77.1 kg (170 lb) SpO2 97% BMI 26.63kg/r6UEROYC STATUS EXAMINATION:Appearance: Appears stated age and In [...] 04, 2017 : 10:10 AM [facility] Valproic Acidon 03-04-2017 Valproic Acid 83.8 ug/mL Normal 50-100 [facility] Comment on above: Result Comment: Refe rence ranges and high/low indicator flags are provided as general guidelines only. The treating physician must determine appropriate target levels/dosing based on the specific clinical situation. Performed By: #### V PA ####[facility] [place], [place] [phone] [facility] 03-03-2017 Creatinine HNO ID: [id number] thor: Sr. Denney ([facility]) Quang MTService: Recreational TherapyAuthor Type: TherapistType: Allied HealthFiled: 03/03/2017 [...] and social skills.SIGNATURE: Sr. Jumana [facility] PATIENT NAME: Matty EliasTE: March 03, 2017 : 3:37 PM PAGER/CONTACT #: [facility] CASE MANAGEMon 03-03-2017 CASE MANAGEM HNO ID: [id number] thor: Regina Akers) CelsoService: Behavioral HealthAuthor Type: [...] one point, he [facility]in [facility] and did well [...] in his cat. They wouldlike him in [facility]. Mother states he has verylow self esteem and feels very hopeless. He also has a history of makingviolent threats when high. She feels he is high risk to suicide afterdischarge or will doing something so hateful due to his impulsiveness.SIGNATURE: YOSEF Forte PATIENT NAME: Matty EliasTE: March 03, 2017 : 3:08 PM [facility] NURSING PROGon 03-03-2017 NURSING PROG HNO ID: [id number] thor: Khanh Mendoza ([facility]) Rylee Ordoñez: (none)Author Type: Behavorial Health AssistantType: Nursing Progress NoteFiled: 03/03/2017 2:43 PMNote Text: Nursing Progress NotePatient Name: Matty RainN: [id number] Location: XW-ILY7-1682/[place] [address]*_ Daily Note:1312 Assumed care of pt @ [...] .This note was completed by: Khanh Ordoñez [facility] NURSING PROG HNO ID: [id number] thor: Katie DodgeBrand LeadLAURIE Romanervice: Behavioral HealthAuthor Type: LICENSED NURSEType: Nursing Progress NoteFiled: 03/03/2017 6:43 AMNote Text: Nursing Progress NotePatient Name: Matty RainN: [id number] Location: LI-RBK8-1030/[place] [address]*_ Daily Note:2330: Assumed care of patient, patient sleeping in bed. m62xwogcy checks maintained.0630: Hours of sleep 8, denies SI, slept quietly throughout the night, nosigns and symptoms of pain nor discomfort will continue to monitor.This note was completed by: Katie Arizmendi LPN [facility] PROGRESSon 03-03-2017 PROGRESS HNO ID: [id number] thor: Julianna Mei: (none)Author Type: PhysicianType: Progress NotesFiled: 03/03/2017 8:45 [...] 77.1 kg (170 lb) SpO2 97% BMI 26.63kg/q6EOXSEA STATUS EXAMINATION:Appearance: Appears stated age and In [...] and individual therapy.Social: discharge planning - per . Refuses to see Dr Sandoval.DISCHARGE PLANNING: Discharge by the middle of the week.SIGNATURE: Julianna Escalera MD PATIENT NAME: Matty WhitlockDATE: March 03, 2017 : 10:10 AM [facility] CASE MANAGEMon 03-02-2017 CASE MANAGEM HNO ID: [id number] thor: Regina Plata () CelsoService: Behavioral HealthAuthor Type: Social WorkerType: Care [...] a voice mail for mother, Imtiaz Whitlock ([phone])requesting call back for collateral and discharge planning. Will continueto follow.SIGNATURE: YOSEF Forte PATIENT NAME: Matty WhitlockDATE: March 02, 2017 : 3:13 PM [facility] NURSING PROGon 03-02-2017 NURSING PROG HNO ID: [id number] thor: Luciana (Rn) SHIREEN Rojaservice: Behavioral HealthAuthor Type: Registered NurseType: Nursing Progress NoteFiled: 03/02/2017 10:40 PMNote Text: Nursing Progress NotePatient Name: Matty WhitlockMRN: [id number] Location: QR-QKG0-5024/[place] [address]*_ Daily Note:2100Report received from previous shift. Patient in room sleeping, he isdisheveled and depressed. Patient avoidant, denied suicidal thoughts orhallucinations. Patient was medication compliant, no prn medicationneeded. Patient on every 15 min rounds for safety, will continue tomonitor.In control.2235Patient in control, no prn medication required.This note was completed by: Luciana Rojas RN [facility] NURSING PROG HNO ID: [id number] thor: Lucia Mccall RNService: PsychiatryAuthor Type: Registered NurseType: Nursing Progress NoteFiled: 03/02/2017 6:33 PMNote Text: Nursing Progress NotePatient Name: Matty RainN: [id number] Location: DK-KFG2-0720/[place] [address]*_ Daily Note:Patient ate 100% dinner.Identification band intact. Patientrelaxed, calm and socializing with peers in the dayroom. Will continue tomonitor and report all findings. Makes needs known to health care staffmembers. All routine medications given per doctors orders. No complaintsvoiced. Q15 minute rounds maintained this evening. Comfort and safetymeasures observed and met.This note was completed by: LUCIA MCCALL RN [facility] NURSING PROG HNO ID: [id number] thor: Vanessa Sutton) King RNService: NursingAuthor Type: Registered NurseType: Nursing Progress NoteFiled: 03/02/2017 3:26 PMNote Text: Nursing Progress NotePatient Name: Matty WhitlockN: [id number] Location: SQ-DHY5-0530/[place] [address]*_ Daily Note: Teamed with Mental Health Worker [...] completed by: Vanessa Townsend RN [facility] NURSING PROG HNO ID: [id number] thor: Khanh Mendoza ([facility]) Rylee Ordoñez: (none)Author Type: Behavorial Health AssistantType: Nursing Progress NoteFiled: 03/02/2017 1:43 PMNote Text: Nursing Progress NotePatient Name: Matty WhitlockMRN: [id number] Location: [place] [address]/[place] [address]*_ Daily Note:1331 Pt was in room upon [...] to monitor .This note was completed by: Jerry Tavares [facility] NURSING PROG HNO ID: [id number] thor: Tisha (Rn) SHIREEN Lynchervice: NursingAuthor Type: Registered NurseType: Nursing Progress NoteFiled: 03/02/2017 6:14 AMNote Text: Nursing Progress NotePatient Name: Matty WhitlockMRN: [id number] Location: [place] [address] [address]*_ Daily Note:0 Received report and assumed care of patient.Matty [...] completed by: Tisha Lynch RN [facility] PLAN OF CAREon 03-02-2017 PLAN OF CARE HNO ID: [id number] thor: Alesia Charles (Pharmacist)Service: PharmacyAuthor Type: PharmacistType: Plan of CareFiled: 03/02/2017 1:27 PMNote Text:MEDICATION HISTORY AND MEDICATION RECONCILIATIONPatient Name:Sachin WhitlockMRN: [id number]: 1991Source of history:Patient: Reliability of source: potentially unreliableMedication Nonadherence Identified: Patient PreferenceThe above information represents the best possible medication history: YesReconciliation completed? Yes All DEPALLETIZER OPERATOR medications addressed by LIPAdditional comments:The patient states that he was previously taking depakote and olanzapine,but that he weaned himself off of all medications a few weeks ago becausehe felt that there were just making him tired.Allergies: ALLERGIESNo Known AllergiesCurrent DEPALLETIZER OPERATOR Medications:Prior to Admission medications as of 02/27/17 1724Not on JOLENE GallegosNovember 2016 1:26 PM [facility] PROGRESSon 03-02-2017 PROGRESS HNO ID: [id number] thor: Julianna Mei: (none)Author Type: PhysicianType: Progress NotesFiled: 03/02/2017 10:17 AMNote Text:PROGRESS NOTE BEHAVIORAL HEALTHSERVICE DATE: 03/02/2017SERVICE TIME: 10:10 AMThe Interdisciplinary team met and reviewed treatment goals and dischargeplanning.CLIFF Holland in office with serafin. Depressed, discouraged, 'embarrassed' by hissituation, nearly in [...] 77.1 kg (170 lb) SpO2 97% BMI 26.63kg/f1YGLPKR STATUS EXAMINATION:Appearance: Appears stated age and In [...] 02, 2017 : 10:10 AM [facility] PROGRESS HNO ID: [id number] thor: Julianna EscaleraService: (none)Author Type: PhysicianType: Progress [...] 77.1 kg (170 lb) SpO2 97% BMI 26.63kg/i6IWPKGA STATUS EXAMINATION:Appearance: Appears stated age and In [...] and individual therapy.Social: discharge planning - per [facility] PLANNING: Discharge by the middle of the week.SIGNATURE: Julianna Escalera MD PATIENT NAME: Matty WhitlockDATE: March 02, 2017 : 10:03 AM [facility] NURSING PROGon 03-01-2017 NURSING PROG HNO ID: [id number] thor: Koko (Rn) Myles Ellis, RNService: (none)Author Type: Registered NurseType: Nursing Progress NoteFiled: 03/01/2017 5:54 PMNote Text: Nursing Progress NotePatient Name: Matty WhitlockMRN: [id number] Location: [place] [address]*_ Daily Note:Patient presents disheveled in hospital gown, reports increased anxietysecondary to unit activity. Patient states he is a bundle of nerves b/cevery one is yelling and singing. Shaking and upset, patient requestedmedication for agitation. Medicated patient with Haldol 5 mg IM andBenedryl 50 mg for anxiety and increasing agitation. [facility] lights lowered for a theraputic [...] participate with dc planning. He called me andid I'm going to get out of here [...] this time.This note was completed by: Koko Ellis RN [facility] NURSING PROG HNO ID: [id number] thor: Kamilla Mendoza ([facility]) EARLE Almonteervice: (none)Author Type: Behavioral Health TechType: Nursing Progress NoteFiled: 03/01/2017 6:35 AMNote Text: Nursing Progress NotePatient Name: Matty WhitlockMRN: [id number] Location: [place] [address]*_ Daily Note:Report from previous shift received about the patient. Patient in bed andappeared to rest comfortably throughout the night with no S/S of pain ordistress. Q 15 minute checks observed and maintained for safety. Patientawake for brief interval, no issues or complaints voiced. Will continue tomonitor.This note was completed by: Kamilla Almonte Myla [facility] PROGRESSon 03-01-2017 PROGRESS HNO ID: [id number] thor: JOSE Stewartervice: PsychiatryAuthor Type: PhysicianType: Progress NotesFiled: 03/01/2017 9:11 AMNote Text:PROGRESS NOTE BEHAVIORAL HEALTHSERVICE DATE: 02/28/2017Nov2016SUBJECTIVEDoing fineNo issuesOBJECTIVEPHYSICAL EXAM: BP 106/66 Pulse 109 Temp 37 ?C (98.6 ?F) (Oral) Resp16 Ht 170.2 cm (5' 7) Wt 77.1 kg (170 lb) BMI 26.63 kg/d3UHECYU STATUS EXAMINATION:Appearance: Appears stated age and In [...] and individual therapy.Social: discharge planning - per [facility] PLANNING: Discharge by the middle of the week.Jian Carranza2016 [facility] ALLIED HEALTHon 02-28-2017 ALLIED HEALTH HNO ID: [id number] thor: Sr. Denney ([facility]) FAUSTINO Del Rioervice: Recreational TherapyAuthor Type: TherapistType: [...] Nothing identified.SIGNATURE: KLAUDIA Bardales PATIENT NAME: Matty EliasTE: February 28, 2017 : 3:02 PM PAGER/CONTACT #: [facility] ALLIED HEALTH HNO ID: [id number] thor: Sr. Denney ([facility]) FAUSTINO Del Rioervice: Recreational TherapyAuthor Type: TherapistType: [...] and not lose time at work.SIGNATURE: Sr. Jumana [facility] PATIENT NAME: Matty WhitlockDATE: February 28, 2017 : 2:54 PM PAGER/CONTACT #: [facility] CASE MGT INIT ASSESon 2016 CASE MGT INIT ASSES HNO ID: [id number] thor: Jessica Parikh () DanzingerService: Social WorkAuthor Type: Social WorkerType: Care Mgt Initial AssessmentFiled: 02/28/2017 1:20 PMNote Text:BEHAVIORAL HEALTH SOCIAL WORK/CARE MANAGEMENTASSESSMENT AND DISCHARGE PLANSERVICE DATE: 02/28/2017SERVICE TIME: 13:07Reason for Admission: Per Intake:Matty Whitlock is a 27 year old malebrought in to [place] by police for manic and delusional behavior.Per ED According to the patient is father called the police because hisfather thought he was in a manic episode. ?In reality, the police officerstates that he was pulling another person over for routine traffic stop,when the patient walked up to the transit authority police officer and began rambling andhaving flight of ideas and tangential speech. ?They then brought thepatient into the ED for evaluation. ED reports that pt?Pt reports having bipolar disorder and say I've been manic forever. Atleast 70 days. Pt reported stopping his psychiatric medicationapproximately two weeks ago. Pt says his usual medications are Fuegznxg6197 mg TID and xantrax 20 mg qhs. [...] Whitlock / Relationship: Father / /Does the patient/representative phlebotomy services consent to contact with the above at thistime? NoInformation obtained from:ChartPatientPrior Social Work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 presumptive only. For confirmation by alternative methods contact the Laboratory within 5 days. For medical purposes only. Documented cross-reactivities (false positives) on file in Laboratory. Performed By: #### C BCDIF ####[facility] [address] [place] [phone] Benzodiazepines, Ur Negative Normal Negative [facility] Comment on above: Result Comment: Cuto ff threshold at 200 ng/mL.Detection of any drug(s) is presumptive only. For confirmation by alternative methods contact the Laboratory within 5 days. For medical purposes only. Documented cross-reactivities (false positives) on file in Laboratory. Performed By: #### C BCDIF ####[place] [address] Cannabinoids, Urine Positive Critically abnormal Negative [facility] Comment on above: Result Comment: Cuto ff threshold at 50 ng/mL.Detection of any drug(s) is presumptive only. For confirmation by alternative methods contact the Laboratory within 5 days. For medical purposes only. Documented cross-reactivities (false positives) on file in Laboratory. Performed By: #### C BCDIF ####[place] [address] Cocaine, Urine Negative Normal [facility] Comment on above: Result Comment: Cuto ff threshold at 300 ng/mL.Detection of any drug(s) is presumptive only. For confirmation by alternative methods contact the Laboratory within 5 days. For medical purposes only. Documented cross-reactivities (false positives) on file in Laboratory. Performed By: #### C BCDIF ####[place] [address] Opiates, Urine Negative Normal Negative [facility] Comment on above: Result Comment: Cuto ff threshold at 300 ng/mL.Detection of any drug(s) is presumptive only. For confirmation by alternative methods contact the Laboratory within 5 days. For medical purposes only. Documented cross-reactivities (false positives) on file in Laboratory. Performed By: #### C BCDIF ####[place] [address] Oxycodone, Urine Negative Normal Negative [facility] Comment on above: Result Comment: Cuto ff threshold at 100 ng/mL.Detection of any drug(s) is presumptive only. For confirmation by alternative methods contact the Laboratory within 5 days. For medical purposes only. Documented cross-reactivities (false positives) on file in Laboratory. Performed By: #### C BCDIF ####[place] [address] Phencyclidine, Urine Negative Normal Negative [facility] Comment on above: Result Comment: Cuto ff threshold at 25 ng/mL.Detection of any drug(s) is presumptive only. For confirmation by alternative methods contact the Laboratory within 5 days. For medical purposes only. Documented cross-reactivities (false positives) on file in Laboratory. Performed By: #### C BCDIF ####[facility] [address] [place] [address] Troponin Ton 02-27-2017 Troponin T.cardiac mass conc ug/L Normal 0.000-0.029 [facility] Comment on above: Performed By: #### C BCDIF ####[place] [address] Urinalysison 02-27-2017 Bilirubin, Urine Negative Normal Negative [facility] Comment on above: Performed By: #### C BCDIF ####[place] [address] Hemoglobin mass conc (Bld) Negative Normal Negative [facility] Comment on above: Performed By: #### C BCDIF ####[place] [address] Leukest Negative Normal Negative [facility] Comment on above: Performed By: #### C BCDIF ####[place] [address] pH of blood 6.0 [pH] Normal 5.0-8.0 [facility] Comment on above: Performed By: #### C BCDIF ####[place] [address] Protein, Urine Negative Normal Negative [facility] Comment on above: Performed By: #### C BCDIF ####[place] [address] Specific Agenda, Ur 1.015 Normal 1.001-1.029 [facility] Comment on above: Performed By: #### C BCDIF ####[place] [address] Urine, clarity Clear Normal Clear [facility] Comment on above: Performed By: #### C BCDIF ####[place] [address] Urine, color Yellow Normal Yellow [facility] Comment on above: Performed By: #### C BCDIF ####[facility] [address] [place] [address] Urine, glucose presence Negative Normal Negative [facility] Comment on above: Performed By: #### C BCDIF ####[facility] [address] [place] [address] Urine, ketones presence Trace Critically abnormal Negative [facility] Comment on above: Performed By: #### C BCDIF ####[facility] [address] [place] [address] Urine, nitrite presence Negative Normal Negative [facility] Comment on above: Performed By: #### C BCDIF ####[facility] [address] [place] [address] Urine, urobilinogen 1 Normal 0.2-1.0 [facility] Comment on above: Performed By: #### C BCDIF ####[facility] [address] [place] [address] Valproic Acidon 02-27-2017 Valproic Acid <3.2 Low 50-100 [facility] Comment on above: Result Comment: Refe rence ranges and high/low indicator flags are provided as general guidelines only. The treating physician must determine appropriate target levels/dosing based on the specific clinical situation.Result rechecked. Performed By: #### C BCDIF ####[place] [address] CBC and Differentialon 01-06 Abs Baso 0.03 k/uL Normal 0.00-0.10 [facility] Comment on above: Performed By: #### C BCDIF, CMP ####[place] [address] Abs Graham 0.92 k/uL High 0.00-0.86 [facility] Comment on above: Performed By: #### C BCDIF, CMP ####[facility] [address] [place] [address] Abs Neut 7.38 k/uL Normal 1.45-7.50 [facility] Comment on above: Performed By: #### C BCDIF, CMP ####[place] [address] Basophils/100 WBC Auto (Bld) 0.3 % Normal [facility] Comment on above: Performed By: #### C BCDIF, CMP ####[place] [address] Eosinophils 0.34 10*3/uL Normal 0.00-0.45 [facility] Comment on above: Performed By: #### C BCDIF, CMP ####[place] [address] Eosinophils/100 leukocytes 3.1 % Normal [facility] Comment on above: Performed By: #### C BCDIF, CMP ####[place] [address] Erythrocyte distribution width Auto Ratio (RBC) 13.2 % Normal 11.5-15.0 [facility] Comment on above: Performed By: #### C BCDIF, CMP ####[place] [address] Erythrocytes (RBC) 4.30 10*6/uL Normal 4.20-6.00 [facility] Comment on above: Performed By: #### C BCDIF, CMP ####[place] [address] Hematocrit (HCT) 38.5 % Low 39.0-51.0 [facility] Comment on above: Performed By: #### C BCDIF, CMP ####[place] [address] Hemoglobin mass conc (Bld) 12.9 g/dL Low 13.0-17.0 [facility] Comment on above: Performed By: #### C BCDIF, CMP ####[place] [address] Lymphocytes 2.17 10*3/uL Normal 1.00-4.00 [facility] Comment on above: Performed By: #### C BCDIF, CMP ####[place] [address] Lymphocytes/100 leukocytes 20.0 % Normal [facility] Comment on above: Performed By: #### C BCDIF, CMP ####[phone] MCH 30.0 pG Normal 26.0-34.0 [facility] Comment on above: Performed By: #### C BCDIF CMP ####[facility] [address] [place] [address] MCHC mass conc (RBC) 33.5 g/dL Normal 30.5-36.0 [facility] Comment on above: Performed By: #### C BCDIF, CMP ####[facility] [address] [place] [address] MCV 89.5 fL Normal 80.0-100.0 [facility] Comment on above: Performed By: #### C BCROSIOF CMP ####[place] [address] Monocytes/100 leukocytes 8.5 % Normal [facility] Comment on above: Performed By: #### C BCROSIOF CMP ####[place] [address] Neutrophils/100 WBC Auto (Bld) 68.1 % Normal [facility] Comment on above: Performed By: #### C BCROSIOF CMP ####[place] [address] Platelet mean volume (PMV) 10.4 fL Normal 9.0-12.7 [facility] Comment on above: Performed By: #### C BCROSIOF, CMP ####[place] [address] Platelets 190 10*3/uL Normal 150-400 [facility] Comment on above: Performed By: #### C BCDIF, CMP ####[place] [address] WBC (Leukocytes) 10.84 10*3/uL Normal 3.70-11.00 [facility] Comment on above: Performed By: #### C BCDIF, CMP ####[facility] [address] [place] [address] Comp Metabolic Panelon 01-06 Alanine aminotransferase (ALT) 13 U/L Normal 5-50 [facility] Comment on above: Performed By: #### C BCDIF, CMP ####[facility] [address] [place] [address] Albumin 4.4 g/dL Normal 3.5-5.0 [facility] Comment on above: Performed By: #### C BCDIF, CMP ####[facility] [address] [place] [address] Alkaline phosphatase (ALP) 58 U/L Normal 40-150 [facility] Comment on above: Performed By: #### C BCDIF, CMP ####[facility] [address] [place] [address] Anion gap 14 mmol/L Normal 0-15 [facility] Comment on above: Performed By: #### C BCDIF, CMP ####[place] [address] Aspartate aminotransferase (AST) 16 U/L Normal 7-40 [facility] Comment on above: Performed By: #### C BCDIF, CMP ####[place] [address] Bilirubin (total) 0.5 mg/dL Normal 0.0-1.5 [facility] Comment on above: Performed By: #### C BCDIF, CMP ####[place] [address] Calcium 9.2 mg/dL Normal 8.5-10.5 [facility] Comment on above: Performed By: #### C BCDIF, CMP ####[place] [address] Chloride 99 mmol/L Normal 98-110 [facility] Comment on above: Performed By: #### C BCDIF, CMP ####[place] [address] CO2 26 mmol/L Normal 23-32 [facility] Comment on above: Performed By: #### C BCDIF, CMP ####[place] [address] Creatinine 0.93 mg/dL Normal 0.70-1.40 [facility] Comment on above: Performed By: #### C BCDIF, CMP ####[facility] [address] [place] [address] eGFR (non-black) mL/min/{1.73_m2} Normal [facility] Comment on above: Result Comment: eGFR (Estimated [...] GFR. Performed By: #### C BCDIF, CMP ####[facility] [address] [place] [address] Glucose mass conc 91 mg/dL Normal 65-100 [facility] Comment on above: Performed By: #### C BCDIF, CMP ####[facility] [address] [place] [address] Potassium molar conc 3.4 mmol/L Low 3.5-5.0 [facility] Comment on above: Performed By: #### C BCDIF, CMP ####[facility] [address] [place] [address] Protein 6.8 g/dL Normal 6.0-8.4 [facility] Comment on above: Performed By: #### C BCDIF, CMP ####[facility] [address] [place] [address] Sodium 139 mmol/L Normal 135-146 [facility] Comment on above: Performed By: #### C BCDIF, CMP ####[facility] [address] [place] [address] Urea nitrogen 11 mg/dL Normal 10-25 [facility] Comment on above: Performed By: #### C BCDIF, CMP ####[facility] [address] [place] [address] ED NOTEon 01-06-2017 ED NOTE HNO ID: [id number] thor: Sindi (Rn) SHIREEN Starrervice: (none)Author Type: Registered NurseType: ED NotesFiled: 01/06/2017 4:59 PMNote Text: Pt discharged to home. Discharge Instructions/ RX x 2/ Follow UpInstructions reviewed with patient with teach back method completed. [facility] ED NOTE HNO ID: [id number] thor: Cristina DodgeRn) Leonardo Nguyen: (none)Author Type: Registered NurseType: ED NotesFiled: 01/06/2017 3:12 PMNote Text: Patient was seen in Triage by Catina Dietz, told he would be given toradoland dc'd to home, patient walked out. Apparently he went to smoke andcame back in, patient had been dismissed as AMA when he walked out anddischarge was reversed after he came back in. [facility] ED NOTE HNO ID: [id number] thor: Albina (Rn) Leonardo Kent: (none)Author Type: Registered NurseType: ED NotesFiled: 01/06/2017 2:33 PMNote Text:Pt states lower extremities began swelling and began getting red Lastnight at nine pm. States in extreme pain 02/03. Pt states he is veryanxious and has significant psych history. Lower extremities +2 edema.Denies trauma to lower extremities. [facility] ED PROV NOTEon 01-06-2017 ED PROV NOTE HNO ID: [id number] thor: Alethea Castelan) Mekhi: (none)Author Type: Physician AssistantType: ED Provider NotesFiled: 01/06/2017 4:58 PMNote Text:ED Provider NotePatient Name: Matty WhitlockMRN: [id number] DATE: 01/06/17HistoryNo chief complaint on file.HPI Comments: [...] 38.5 (*) 39.0 - 51.0 % Abs Graham 0.92 (*) 0.00 - 0.86 k/uL All [...] of disposition: improvedSIGNATURE: NORMA Maher-Yuliana Ovalle (Norma) Kcefmhs29/12/17 1658 Normal [facility] NT Pro BNPon 01-06-2017 PRO B Natr Peptide <5 Normal <125 [facility] Comment on above: Performed By: #### N TBNP ####[facility] [address] [place] [phone] XR ANKLE 3V AP/LAT/OBL LTon 01-06-2017 XR [...] Soft tissue swelling over bilateral ankles. See result.Technical Support Engineer: PSCB Transcribe Date/Time: Jan 06 2017 3:55PDictated by : CRISTINA SHEPHERD MDThis examination was interpreted and the report reviewed and electronically signed by: CRISTINA SHEPHERD MD on Jan 06 2017 3:58PM [id number] [facility] XR ANKLE 3V AP/LAT/OBL RTon 01-06-2017 XR [...] Soft tissue swelling over bilateral ankles. See result.Technical Support Engineer: MINERVA Transcribe Date/Time: Jan 06 2017 3:55PDictated by : CRISTINA SHEPHERD MDThis examination was interpreted and the report reviewed and electronically signed by: CRISTINA SHEPHERD MD on Jan 06 2017 3:58PM [id number] [facility] ED NOTEon 12-27-2016 ED NOTE HNO ID: [id number] thor: Vida (Rn) SHIREEN Abrahamervice: NursingAuthor Type: Registered NurseType: ED NotesFiled: 12/29/2016 11:44 AMNote Text:Emergency Services: ED Call Back QuestionnaireSERVICE DATE: 12/27/2016Are you feeling better? YesAny questions about discharge instructions and follow-up care? NoWere you able to make a follow up appointment? No, referred to appointmenthotline pt was given a list of urologists in the [place] area since he hastransportation issuesDo you have any further questions? NoIs there anything that we could have done differently to improve your EDvisit? NoSIGNATURE: Vida Abraham RN PATIENT NAME: Matty RosaseyDATE: December 29, 2016 : 11:40 AM [facility] ED NOTE HNO ID: [id number] thor: Arjun DodgeRn) SHIREEN Aguileraervice: (none)Author Type: Registered NurseType: ED NotesFiled: 12/27/2016 8:18 AMNote Text:Pt presented to ED with C/O testicle pain and testicular changes. Ptbelieves he may have an infection. He sts he has noticed some greendischarge from his penis Normal [facility] ED PROV NOTEon 12-27-2016 ED PROV NOTE HNO ID: [id number] thor: JOSE Leervice: (none)Author Type: PhysicianType: ED Provider NotesFiled: 12/27/2016 8:27 AMNote Text:ED Provider NotePatient Name: Matty WhitlockMRN: [id number] DATE: 12/27/16HistoryPatient presents with:Testicular PainHPI Comments: History [...] disposition: stableSIGNATURE: Makeda Stanton MD12/27/16 0827 Normal [facility] Basic Metabolic Panlon 11-30 Anion gap 13 mmol/L Normal 0-15 [facility] Comment on above: Performed By: #### B MP ####[facility] [address] [place] [phone] Calcium 9.5 mg/dL Normal 8.5-10.5 [facility] Comment on above: Performed By: #### B MP ####[facility] [address] [place] [address] Chloride 96 mmol/L Low 98-110 [facility] Comment on above: Performed By: #### B MP ####[facility] [address] [place] [address] CO2 27 mmol/L Normal 23-32 [facility] Comment on above: Performed By: #### B MP ####[facility] [address] [place] [address] Creatinine 1.01 mg/dL Normal 0.70-1.40 [facility] Comment on above: Performed By: #### B MP ####[facility] [address] [place] [address] eGFR (non-black) mL/min/{1.73_m2} Normal [facility] Comment on above: Result Comment: eGFR (Estimated [...] actual GFR. Performed By: #### B MP ####[place] [address] Glucose mass conc 89 mg/dL Normal 65-100 [facility] Comment on above: Performed By: #### B MP ####[facility] [address] [place] [address] Potassium molar conc 3.5 mmol/L Normal 3.5-5.0 [facility] Comment on above: Performed By: #### B MP ####[place] [address] Sodium 136 mmol/L Normal 135-146 [facility] Comment on above: Performed By: #### B MP ####[place] [address] Urea nitrogen 13 mg/dL Normal 10-25 [facility] Comment on above: Performed By: #### B MP ####[facility] [address] [place] [address] CBC and Differentialon 11-30 Abs Baso 0.03 k/uL Normal 0.00-0.10 [facility] Comment on above: Performed By: #### C BCDIF ####[place] [address] Abs Graham 1.00 k/uL High 0.00-0.86 [facility] Comment on above: Performed By: #### C BCDIF ####[facility] [address] [place] [address] Abs Neut 9.39 k/uL High 1.45-7.50 [facility] Comment on above: Performed By: #### C BCDIF ####[place] [address] Basophils/100 WBC Auto (Bld) 0.2 % Normal [facility] Comment on above: Performed By: #### C BCDIF ####[place] [address] Eosinophils 0.32 10*3/uL Normal 0.00-0.45 [facility] Comment on above: Performed By: #### C BCDIF ####[place] [address] Eosinophils/100 leukocytes 2.5 % Normal [facility] Comment on above: Performed By: #### C BCDIF ####[place] [address] Erythrocyte distribution width Auto Ratio (RBC) 13.4 % Normal 11.5-15.0 [facility] Comment on above: Performed By: #### C BCDIF ####[place] [address] Erythrocytes (RBC) 4.82 10*6/uL Normal 4.20-6.00 [facility] Comment on above: Performed By: #### C BCDIF ####[place] [address] Hematocrit (HCT) 43.5 % Normal 39.0-51.0 [facility] Comment on above: Performed By: #### C BCDIF ####[phone] Hemoglobin mass conc (Bld) 14.7 g/dL Normal 13.0-17.0 [facility] Comment on above: Performed By: #### C BCDIF ####[place] [address] Lymphocytes 1.81 10*3/uL Normal 1.00-4.00 [facility] Comment on above: Performed By: #### C BCDIF ####[place] [address] Lymphocytes/100 leukocytes 14.4 % Normal [facility] Comment on above: Performed By: #### C BCDIF ####[place] [address] MCH 30.5 pG Normal 26.0-34.0 [facility] Comment on above: Performed By: #### C BCDIF ####[place] [address] MCHC mass conc (RBC) 33.8 g/dL Normal 30.5-36.0 [facility] Comment on above: Performed By: #### C BCDIF ####[place] [address] MCV 90.2 fL Normal 80.0-100.0 [facility] Comment on above: Performed By: #### C BCDIF ####[place] [address] Monocytes/100 leukocytes 8.0 % Normal [facility] Comment on above: Performed By: #### C BCDIF ####[place] [address] Neutrophils/100 WBC Auto (Bld) 74.9 % Normal [facility] Comment on above: Performed By: #### C BCDIF ####[place] [address] Platelet mean volume (PMV) 10.4 fL Normal 9.0-12.7 [facility] Comment on above: Performed By: #### C BCDIF ####[place] [address] Platelets 257 10*3/uL Normal 150-400 [facility] Comment on above: Performed By: #### C BCDIF ####[facility] [address] [place] [phone] WBC (Leukocytes) 12.55 10*3/uL High 3.70-11.00 [facility] Comment on above: Performed By: #### C BCDIF ####[facility] [address] [place] [phone] ED NOTEon 11-30-2016 ED NOTE HNO ID: [id number] Author: Regina Sutton) AZAEL Sommer Service: Nursing Author Type: Registered Nurse Type: ED Notes Filed: 11/30/2016 4:52 PM Note Text: Normal [facility] ED NOTE HNO ID: [id number] thor: Arjun (Rn) SHIREEN Aguileraervice: (none)Author Type: Registered NurseType: ED NotesFiled: 11/30/2016 4:26 PMNote Text:Pt to ED today CC of bilateral leg edema - L worse then right. Pt sts hehas been very depressed lately but denies SI or HI. Normal [facility] ED PROV NOTEon 11-30-2016 ED PROV NOTE HNO ID: [id number] thor: Regina (Norma) ReillyService: Emergency MedicineAuthor Type: Physician AssistantType: ED Provider NotesFiled: 11/30/2016 7:14 PMNote Text:ED Provider NotePatient Name: Matty WhitlockMRN: [id number] DATE: 11/30/16HistoryPatient presents with:Leg EdemaAnxietyHPI Comments: 25 [...] 9.39 (*) 1.45 - 7.50 k/uL Abs Graham 1.00 (*) 0.00 - 0.86 k/uL All [...] Keflexand AtaraxCondition at time of disposition: stableSIGNATURE: NORMA Dumas-Brown (Norma) Lroiyd88/06/171913 [facility] US LEG VEIN DVT BILATon 08-0 Bilirubin (total) [...] patent.IMPRESSION:NO EVIDENCE OF DEEP VENOUS THROMBOSISTranscriptionist : PSCTroy Transcribe Date/Time: Nov 30 2016 6:24PDictated by : JUDIE ALONSO MDThis examination was interpreted and the report reviewed and electronically signed by: JUDIE ALONSO MD on Nov 30 2016 6:25PM EST [facility] Vital Signs Date Time Vital Sign Value Performing Clinician Facility 11-12-2024 12:06-0400 Body temperature 97.8 [degF] Dr. Laine Dye MD Work Phone: [facility] 11-12-2024 12:06-0400 Diastolic blood pressure 82 mm[Hg] Dr. Laine Dye MD Work Phone: [facility] 11-12-2024 12:06-0400 Heart rate 82 /min Dr. Laine Dye MD Work Phone: [facility] 11-12-2024 12:06-0400 Respiratory rate 16 /min Dr. Laine Dye MD Work Phone: 7(006)172-474384 [place] [address] 11-12-2024 12:06-0400 SaO2% (BldA) [Mass fraction] 100 % Dr. Laine Dye MD Work Phone: 0(466)683-372084 [place] [address] 11-12-2024 12:06-0400 Systolic blood pressure 127 mm[Hg] Dr. Laine Dye MD Work Phone: 6(298)055-001745 [place] [address] 11-12-2024 09:26-0400 Body height 170.[address] Laine Dye MD Work Phone: 2(018)976-891745 [place] [address] 11-12-2024 09:26-0400 Body mass index (BMI) [Ratio] 28.3 kg/m2 Dr. Laine Dye MD Work Phone: 8(760)388-850045 [place] [address] 11-12-2024 09:26-0400 Body weight 82.[address] Laine Dye MD Work Phone: 7(890)632-762645 [place] [address] 11-01-2024 19:48-0400 Body temperature 98.2 [degF] Dr. Laine Dye MD Work Phone: 1(885)319-601745 [place] [address] 11-01-2024 19:48-0400 Diastolic blood pressure 66 mm[Hg] Dr. Laine Dye MD Work Phone: 7(721)290-249245 [place] [address] 11-01-2024 19:48-0400 Heart rate 65 /min Dr. Laine Dye MD Work Phone: 0(883)686-150445 [place] [address] 11-01-2024 19:48-0400 Respiratory rate 16 /min Dr. Laine Dye MD Work Phone: 5(929)029-807684 [place] [address] 11-01-2024 19:48-0400 SaO2% (BldA) [Mass fraction] 98 % Dr. Laine Dye MD Work Phone: 4(908)972-363284 [place] [address] 11-01-2024 19:48-0400 Systolic blood pressure 117 mm[Hg] Dr. Laine Dye MD Work Phone: 1(717)866-890145 [place] [address] 11-01-2024 14:23-0400 Body height 170.[address] Laine Dye MD Work Phone: [facility] 11-01-2024 14:23-0400 Body mass index (BMI) [Ratio] 30 kg/m2 Dr. Laine Dye MD Work Phone: [facility] 11-01-2024 14:23-0400 Body weight 86.[address] Laine Dye MD Work Phone: 0(132)735-962045 [place] [address] 10-21-2024 13:00-0400 Body temperature 97.9 [degF] Dr. Laine Dye MD Work Phone: 5(848)863-079145 [place] [address] 10-21-2024 13:00-0400 Diastolic blood pressure 67 mm[Hg] Dr. Laine Dye MD Work Phone: 5(221)090-292145 [place] [address] 10-21-2024 13:00-0400 Heart rate 48 /min Dr. Laine Dye MD Work Phone: 9(343)336-628245 [place] [address] 10-21-2024 13:00-0400 Respiratory rate 16 /min Dr. Laine Dye MD Work Phone: 4(877)042-278145 [place] [address] 10-21-2024 13:00-0400 SaO2% (BldA) [Mass fraction] 95 % Dr. Laine Dye MD Work Phone: 0(188)274-821945 [place] [address] 10-21-2024 13:00-0400 Systolic blood pressure 105 mm[Hg] Dr. Laine Dye MD Work Phone: 6(160)644-826984 [place] [address] 10-21-2024 11:14-0400 Body height 170.[address] Laine Dye MD Work Phone: 6(216)384-046145 [place] [address] 10-21-2024 11:14-0400 Body mass index (BMI) [Ratio] 27.9 kg/m2 Dr. Laine Dye MD Work Phone: 2(324)767-474984 [place] [address] 10-21-2024 11:14-0400 Body weight [address] Laine Dye MD Work Phone: 4(564)249-940784 [place] [address] 10-19-2024 16:54-0400 Body temperature 97.2 [degF] Dr. Laine Dye MD Work Phone: 1(794)192-100784 [place] [address] 10-19-2024 16:54-0400 Diastolic blood pressure 65 mm[Hg] Dr. Laine Dye MD Work Phone: 9(939)251-577245 [place] [address] 10-19-2024 16:54-0400 Heart rate 80 /min Dr. Laine Dye MD Work Phone: 9(919)035-520345 [place] [address] 10-19-2024 16:54-0400 Respiratory rate 18 /min Dr. Laine Dye MD Work Phone: 1(532)588-852645 [place] [address] 10-19-2024 16:54-0400 SaO2% (BldA) [Mass fraction] 99 % Dr. Laine Dye MD Work Phone: 9(896)090-001945 [place] [address] 10-19-2024 16:54-0400 Systolic blood pressure 117 mm[Hg] Dr. Laine Dye MD Work Phone: 0(068)816-729784 [place] [address] 10-19-2024 12:17-0400 Body height 170.[address] Laine Dye MD Work Phone: 8(900)768-312345 [place] [address] 10-19-2024 12:17-0400 Body mass index (BMI) [Ratio] 29.1 kg/m2 Dr. Laine Dye MD Work Phone: 7(816)440-658684 [place] [address] 10-19-2024 12:17-0400 Body weight 84.[address] Laine Dye MD Work Phone: [phone] [place] [address] 08-12-2024 20:38-0400 Body temperature 98.2 [degF] Dr. Laine Dye MD Work Phone: [phone] [place] [address] 08-12-2024 20:38-0400 Diastolic blood pressure 61 mm[Hg] Dr. Laine Dye MD Work Phone: [phone] [place] [address] 08-12-2024 20:38-0400 Heart rate 77 /min Dr. Laine Dye MD Work Phone: [facility] 08-12-2024 20:38-0400 Respiratory rate 16 /min Dr. Laine Dye MD Work Phone: [facility] 08-12-2024 20:38-0400 SaO2% (BldA) [Mass fraction] 98 % Dr. Laine Dye MD Work Phone: [facility] 08-12-2024 20:38-0400 Systolic blood pressure 104 mm[Hg] Dr. Laine Dye MD Work Phone: [facility] 08-12-2024 15:26-0400 Body height 170.[address] Laine Dye MD Work Phone: [facility] 08-12-2024 15:26-0400 Body mass index (BMI) [Ratio] 31.7 kg/m2 Dr. Laine Dye MD Work Phone: [facility] 08-12-2024 15:26-0400 Body weight 91.[address] Laine Dye MD Work Phone: [facility] 07-11-2024 15:39-0400 Body temperature 98.1 [degF] Dr. Laine Dye MD Work Phone: [facility] 07-11-2024 15:39-0400 Diastolic blood pressure 84 mm[Hg] Dr. Laine Dye MD Work Phone: [facility] 07-11-2024 15:39-0400 Heart rate 77 /min Dr. Laine Dye MD Work Phone: [facility] 07-11-2024 15:39-0400 Respiratory rate 16 /min Dr. Laine Dye MD Work Phone: [facility] 07-11-2024 15:39-0400 SaO2% (BldA) [Mass fraction] 95 % Dr. Laine Dye MD Work Phone: [facility] 07-11-2024 15:39-0400 Systolic blood pressure 128 mm[Hg] Dr. Laine Dye MD Work Phone: [facility] 07-11-2024 10:53-0400 Body height 170.[address] Laine Dye MD Work Phone: [facility] 07-11-2024 10:53-0400 Body mass index (BMI) [Ratio] 32.8 kg/m2 Dr. Laine Dye MD Work Phone: [facility] 07-11-2024 10:53-0400 Body weight 95.[address] Laine Dye MD Work Phone: [facility] 01-06-2024 00:03-0400 Heart rate 78 /min Sylvester Ramirez Work Phone: [facility] 01-06-2024 00:03-0400 Respiratory rate 20 /min Sylvester Ramirez Work Phone: [facility] 01-05-2024 21:57-0400 Body height 165.1 cm Sylvester Ramirez Work Phone: [facility] 01-05-2024 21:57-0400 Body temperature 98.78 [degF] Sylvester Ramirez Work Phone: [facility] 01-05-2024 21:57-0400 Body weight 68.03 kg Sylvester Ramirez Work Phone: [facility] 01-05-2024 21:57-0400 Diastolic blood pressure 79 mm[Hg] Sylvester lemus Work Phone: [facility] 01-05-2024 21:57-0400 SaO2% (BldA) [Mass fraction] 97 % Sylvester Ramirez Work Phone: [facility] 01-05-2024 21:57-0400 Systolic blood pressure 124 mm[Hg] Sylvester Ramirez Work Phone: [facility] 11-30-2023 12:00-0400 Heart rate 93 /min Sylvester Ramirez Work Phone: [facility] 11-30-2023 12:00-0400 Respiratory rate 18 /min Sylvester Ramirez Work Phone: [facility] 11-30-2023 12:00-0400 SaO2% (BldA) [Mass fraction] 98 % Sylvester Ramirez Work Phone: [facility] 11-30-2023 08:00-0400 Diastolic blood pressure 83 mm[Hg] Sylvester Orosco n Work Phone: [facility] 11-30-2023 08:00-0400 Systolic blood pressure 104 mm[Hg] Sylvester Ramirez Work Phone: [facility] 11-30-2023 02:21-0400 Body height 170.18 cm Sylvester Ramirez Work Phone: [facility] 11-30-2023 02:21-0400 Body temperature 98.42 [degF] Sylvester Ramirez Work Phone: [facility] 11-30-2023 02:21-0400 Body weight 64.86 kg Sylvester Ramirez Work Phone: [facility] 09-01-2023 03:58-0400 Respiratory rate 16 /min Ze Palmer Jr., DO Work Phone: [facility] 09-01-2023 03:58-0400 SaO2% (BldA) [Mass fraction] 99 % Ze Palmer Jr., DO Work Phone: [facility] 08-31-2023 22:39-0400 Body mass index (BMI) [Ratio] 24.43 kg/m2 Ze Palmer Jr., DO Work Phone: [facility] 08-31-2023 22:39-0400 Body temperature 98.01 [degF] Ze Palmer Jr., DO Work Phone: [facility] 08-31-2023 22:39-0400 Body weight 70.76 kg Zedavidson Palmer Jr., DO Work Phone: [facility] 08-31-2023 22:39-0400 Diastolic blood pressure 63 mm[Hg] Ze Conner mckeon Jr., DO Work Phone: [facility] 08-31-2023 22:39-0400 Heart rate 94 /min Zedavidson Palmer Jr., DO Work Phone: [facility] 08-31-2023 22:39-0400 Systolic blood pressure 121 mm[Hg] Ze Spencer Connelly., DO Work Phone: [facility] 08-11-2023 05:00-0400 Diastolic blood pressure 76 mm[Hg] Wessandra Jackson D O Work Phone: [facility] 08-11-2023 05:00-0400 Heart rate 82 /min Wes Csernyik DO Work Phone: [facility] 08-11-2023 05:00-0400 Respiratory rate 17 /min Wes Csernyik DO Work Phone: [facility] 08-11-2023 05:00-0400 SaO2% (BldA) [Mass fraction] 98 % Wes Csernyik DO Work Phone: [facility] 08-11-2023 05:00-0400 Systolic blood pressure 120 mm[Hg] Wes Csernyik DO Work Phone: [facility] 08-10-2023 20:48-0400 Body height 177.8 cm Wes Csernyik DO Work Phone: [facility] 08-10-2023 20:48-0400 Body mass index (BMI) [Ratio] 21.52 kg/m2 Wes Csernyik DO Work Phone: [facility] 08-10-2023 20:48-0400 Body temperature 98.01 [degF] Wes Csernyik DO Work Phone: [facility] 08-10-2023 20:48-0400 Body weight 68.04 kg Wes Jackson DO Work Phone: [facility] 07-02-2023 07:00-0500 Respiratory rate 16 /min [facility] 07-02-2023 06:07-0500 Diastolic blood pressure 79 mm[Hg] [facility] 07-02-2023 06:07-0500 Heart rate 69 /min [facility] 07-02-2023 06:07-0500 SaO2% (BldA) [Mass fraction] 97 % [facility] 07-02-2023 06:07-0500 Systolic blood pressure 124 mm[Hg] [facility] 07-02-2023 00:10-0500 Body height 170.18 cm [facility] 07-02-2023 00:10-0500 Body mass index (BMI) [Ratio] 24.3 kg/m2 [facility] 07-02-2023 00:10-0500 Body temperature 98 [degF] [facility] 07-02-2023 00:10-0500 Body weight 70.3 kg [facility] 05-28-2023 13:29-0500 Body height 170.18 cm [facility] 05-28-2023 13:29-0500 Body mass index (BMI) [Ratio] 24 kg/m2 [facility] 05-28-2023 13:29-0500 Body temperature 97.2 [degF] [facility] 05-28-2023 13:29-0500 Body weight 69.8 kg [facility] 05-28-2023 13:29-0500 Diastolic blood pressure 92 mm[Hg] [facility] 05-28-2023 13:29-0500 Heart rate 82 /min [facility] 05-28-2023 13:29-0500 Respiratory rate 18 /min [facility] 05-28-2023 13:29-0500 SaO2% (BldA) [Mass fraction] 99 % [facility] 05-28-2023 13:29-0500 Systolic blood pressure 124 mm[Hg] [facility] 01-04-2023 20:48-0400 SaO2% (BldA) [Mass fraction] 9 % LAINE DYE [facility] Comment on above: Order Comment: Specimen Type: ARTERIAL B LOOD SPECIMENOrdering Facility: [facility] Address: [address] [place] [id number] Performed By: #### A LLBG ####[facility] LABORATORYCLIA [id number] [place] [address] [place] 01-04-2023 15:54-0400 Body temperature 98.1 [degF] [facility] 01-04-2023 15:54-0400 Diastolic blood pressure 64 mm[Hg] [facility] 01-04-2023 15:54-0400 Heart rate 74 /min [facility] 01-04-2023 15:54-0400 Respiratory rate 16 /min [facility] 01-04-2023 15:54-0400 SaO2% (BldA) [Mass fraction] 95 % [facility] 01-04-2023 15:54-0400 Systolic blood pressure 103 mm[Hg] [facility] 01-04-2023 14:40-0400 Body height 170.18 cm [facility] 01-04-2023 14:40-0400 Body mass index (BMI) [Ratio] 25.7 kg/m2 [facility] 01-04-2023 14:40-0400 Body weight 74.5 kg [facility] 09-17-2022 01:48-0400 Body mass index (BMI) [Ratio] 27.9 kg/m2 [facility] 09-17-2022 01:48-0400 Body temperature 97.8 [degF] [facility] 09-17-2022 01:48-0400 Body weight 81 kg [facility] 09-17-2022 01:48-0400 Diastolic blood pressure 83 mm[Hg] [facility] 09-17-2022 01:48-0400 Heart rate 89 /min [facility] 09-17-2022 01:48-0400 Respiratory rate 18 /min [facility] 09-17-2022 01:48-0400 SaO2% (BldA) [Mass fraction] 97 % [facility] 09-17-2022 01:48-0400 Systolic blood pressure 128 mm[Hg] [facility] 09-03-2022 23:13-0400 Heart rate 95 /min [facility] 09-03-2022 23:13-0400 Respiratory rate 15 /min [facility] 09-03-2022 23:13-0400 SaO2% (BldA) [Mass fraction] 99 % [facility] 09-03-2022 22:21-0400 Diastolic blood pressure 100 mm[Hg] [facility] 09-03-2022 22:21-0400 Systolic blood pressure 129 mm[Hg] [facility] 09-03-2022 22:03-0400 Body mass index (BMI) [Ratio] 26.5 kg/m2 [facility] 09-03-2022 22:03-0400 Body weight 76.8 kg [facility] 09-03-2022 21:22-0400 Body height 170.18 cm [facility] 09-03-2022 21:22-0400 Body temperature 97.8 [degF] [facility] 07-16-2022 15:23-0400 Body temperature 97.81 [degF] Rusty Kristian METAL CASTER.LINTER DRIER OPERATOR Work Phone: [facility] 07-16-2022 15:23-0400 Body weight 81.28 kg Rusty Kristian METAL CASTER.LINTER DRIER OPERATOR Work Phone: [facility] 07-16-2022 15:23-0400 Diastolic blood pressure 84 mm[Hg] Rusty Kristian METAL CASTER.LINTER DRIER OPERATOR Work Phone: [facility] 07-16-2022 15:23-0400 Heart rate 82 /min Rusty Kristian METAL CASTER.LINTER DRIER OPERATOR Work Phone: [facility] 07-16-2022 15:23-0400 Respiratory rate 18 /min Rusty Kristian METAL CASTER.LINTER DRIER OPERATOR Work Phone: [facility] 07-16-2022 15:23-0400 SaO2% (BldA) [Mass fraction] 98 % Rusty Townsend APRN.LINTER DRIER OPERATOR Work Phone: [facility] 07-16-2022 15:23-0400 Systolic blood pressure 136 mm[Hg] Rusty Townsend APRN.LINTER DRIER OPERATOR Work Phone: [facility] 06-27-2022 16:42-0500 Body temperature 98.49 [degF] Sharon Evans APRN.LINTER DRIER OPERATOR Work Phone: [facility] 06-27-2022 16:42-0500 Body weight 83.28 kg Sharon Evans APRN.LINTER DRIER OPERATOR Work Phone: [facility] 06-27-2022 16:42-0500 Diastolic blood pressure 88 mm[Hg] Sharon Evans APRN.LINTER DRIER OPERATOR Work Phone: [facility] 06-27-2022 16:42-0500 Heart rate 87 /min Sharon Evans APRN.LINTER DRIER OPERATOR Work Phone: [facility] 06-27-2022 16:42-0500 Respiratory rate 18 /min Sharon Evans APRN.LINTER DRIER OPERATOR Work Phone: [facility] 06-27-2022 16:42-0500 SaO2% (BldA) [Mass fraction] 98 % Sharon Evans APRN.LINTER DRIER OPERATOR Work Phone: [facility] 06-27-2022 16:42-0500 Systolic blood pressure 132 mm[Hg] Sharon Evans APRN.LINTER DRIER OPERATOR Work Phone: [facility] 06-18-2022 17:34-0500 Body height 170.18 cm [facility] 06-18-2022 17:34-0500 Body mass index (BMI) [Ratio] 27.7 kg/m2 [facility] 06-18-2022 17:34-0500 Body temperature 98 [degF] [facility] 06-18-2022 17:34-0500 Body weight 80.3 kg [facility] 06-18-2022 17:34-0500 Diastolic blood pressure 79 mm[Hg] [facility] 06-18-2022 17:34-0500 Heart rate 119 /min [facility] 06-18-2022 17:34-0500 Respiratory rate 16 /min [facility] 06-18-2022 17:34-0500 SaO2% (BldA) [Mass fraction] 95 % [facility] 06-18-2022 17:34-0500 Systolic blood pressure 104 mm[Hg] [facility] 12-27-2021 17:38-0400 Diastolic blood pressure 78 mm[Hg] Dr. Laine Dye Work Phone: [facility] Work Phone: 12-27-2021 17:38-0400 Heart rate 66 /min Dr. Laine Dye Work Phone: [facility] Work Phone: 12-27-2021 17:38-0400 Respiratory rate 14 /min Dr. Laine Dye Work Phone: [facility] Work Phone: 12-27-2021 17:38-0400 SaO2% (BldA) [Mass fraction] 98 % Dr. Laine Dye Work Phone: [facility] Work Phone: 12-27-2021 17:38-0400 Systolic blood pressure 135 mm[Hg] Dr. Laine Dye Work Phone: [facility] Work Phone: 12-27-2021 15:05-0400 Body height 170.[address] Laine Dye Work Phone: [facility] Work Phone: 12-27-2021 15:05-0400 Body mass index (BMI) [Ratio] 28.1 kg/m2 Dr. Laine Dye Work Phone: [facility] Work Phone: 12-27-2021 15:05-0400 Body temperature 97.1 [degF] Dr. Laine Dye Work Phone: [facility] Work Phone: 12-27-2021 15:05-0400 Body weight 81.[address] Laine Dye Work Phone: [facility] Work Phone: 09-06-2021 09:17-0400 Diastolic blood pressure 71 mm[Hg] Dr. Laine Dye Work Phone: [facility] Work Phone: 09-06-2021 09:17-0400 Heart rate 88 /min Dr. Laine Dye Work Phone: [facility] Work Phone: 09-06-2021 09:17-0400 Respiratory rate 14 /min Dr. Laine Dye Work Phone: [facility] Work Phone: 09-06-2021 09:17-0400 SaO2% (BldA) [Mass fraction] 97 % Dr. Laine Dye Work Phone: [facility] Work Phone: 09-06-2021 09:17-0400 Systolic blood pressure 138 mm[Hg] Dr. Laine Dye Work Phone: [facility] Work Phone: 09-06-2021 07:08-0400 Body mass index (BMI) [Ratio] 29 kg/m2 Dr. Laine Dye Work Phone: [facility] Work Phone: 09-06-2021 07:08-0400 Body temperature 97.9 [degF] Dr. Laine Dye Work Phone: [facility] Work Phone: 09-06-2021 07:08-0400 Body weight 83.[address] Laine Dye Work Phone: [facility] Work Phone: 09-01-2021 23:15-0400 Diastolic blood pressure 80 mm[Hg] [facility] Work Phone: 09-01-2021 23:15-0400 Heart rate 87 /min [facility] Work Phone: 09-01-2021 23:15-0400 Respiratory rate 16 /min [facility] Work Phone: 09-01-2021 23:15-0400 SaO2% (BldA) [Mass fraction] 97 % [facility] Work Phone: 09-01-2021 23:15-0400 Systolic blood pressure 120 mm[Hg] [facility] Work Phone: 09-01-2021 20:58-0400 Body height 170.18 cm [facility] Work Phone: 09-01-2021 20:58-0400 Body mass index (BMI) [Ratio] 28.1 kg/m2 [facility] Work Phone: 09-01-2021 20:58-0400 Body temperature 97 [degF] [facility] Work Phone: 09-01-2021 20:58-0400 Body weight 81.64 kg [facility] Work Phone: 03-24-2021 22:03-0500 Body height 170.2 cm KACIE WELLS MD [facility] 03-24-2021 22:03-0500 Body temperature 98.24 [degF] KACIE WELLS MD [facility] 03-24-2021 22:03-0500 Body weight 86.4 kg KACIE WELLS MD [facility] 03-24-2021 22:03-0500 Diastolic blood pressure 82 mm[Hg] KACIE WELLS MD [facility] 03-24-2021 22:03-0500 Heart rate 99 /min KACIE WELLS MD [facility] 03-24-2021 22:03-0500 Respiratory rate 24 /min KACIE WELLS MD [facility] 03-24-2021 22:03-0500 Systolic blood pressure 146 mm[Hg] KACIE WELLS MD [facility] 03-22-2021 19:09-0500 Diastolic blood pressure 70 mm[Hg] ONEL CRAMER MD [facility] 03-22-2021 19:09-0500 Heart rate 95 /min ONEL CRAMER MD [facility] 03-22-2021 19:09-0500 Respiratory rate 16 /min ONEL CRAMER MD [facility] 03-22-2021 19:09-0500 Systolic blood pressure 108 mm[Hg] ONEL Lopez [facility] 03-22-2021 17:54-0500 Diastolic blood pressure 76 mm[Hg] ONEL CRAMER MD [facility] 03-22-2021 17:54-0500 Heart rate 88 /min ONEL CRAMER MD [facility] 03-22-2021 17:54-0500 Respiratory rate 16 /min ONEL CRAMER MD [facility] 03-22-2021 17:54-0500 Systolic blood pressure 128 mm[Hg] ONEL Lopez [facility] 03-22-2021 15:32-0500 Body height 170 cm ONEL CRAMER MD [facility] 03-22-2021 15:32-0500 Body temperature 98.6 [degF] ONEL CRAMER MD [facility] 03-22-2021 15:32-0500 Body weight 86.5 kg ONEL CRAMER MD [facility] 03-22-2021 15:32-0500 Diastolic blood pressure 79 mm[Hg] ONEL CRAMER MD [facility] 03-22-2021 15:32-0500 Heart rate 90 /min ONEL CRAMER MD [facility] 03-22-2021 15:32-0500 Respiratory rate 18 /min ONEL CRAMER MD [facility] 03-22-2021 15:32-0500 Systolic blood pressure 108 mm[Hg] ONEL Lopez [facility] 03-08-2021 20:18-0500 Body height 170.2 cm ZE WHITT DO [facility] 03-08-2021 20:18-0500 Body temperature 98.42 [degF] ZE WHITT DO [facility] 03-08-2021 20:18-0500 Body weight 89.5 kg ZE WHITT DO [facility] 03-08-2021 20:18-0500 Diastolic blood pressure 72 mm[Hg] ZE WHITT DO [facility] 03-08-2021 20:18-0500 Heart rate 108 /min ZE WHITT DO [facility] 03-08-2021 20:18-0500 Respiratory rate 22 /min ZE WHITT DO [facility] 03-08-2021 20:18-0500 Systolic blood pressure 142 mm[Hg] ZE WIHTT D O [facility] Encounters Encounter Date Encounter Type Care Provider Facility Start: 11-12-2024 End: 11-12-2024 Emergency department patient visit Dr. Laine Dye MD Work Phone: -Emergency Department Work Phone: Start: 11-09-2024 End: 11-09-2024 [facility] Start: 11-09-2024 End: 11-09-[address] Laine Dye MD Work Phone: -[facility] Start: 11-07-2024 End: 11-07-2024 Refill Laine Dye MD Work Phone: [facility] Comment on above: Moderate persistent asthma, unspecified whether complicated Start: 11-06-2024 End: 11-06-2024 ambulatory Candace Bourne RN NURSE ENGINE SERVICE REPAIRER Comment on above: Medication Question Start: 11-01-2024 End: 11-01-2024 Emergency department patient visit Dr. Laine Dye MD Work Phone: -Emergency Department Work Phone: Start: 10-21-2024 Non-patient / Non-visit Vishnu Andrade nd, DO -[facility] Start: 10-21-2024 End: 10-21-2024 Admission to same [...] Start: 08-22-2024 End: 08-22-2024 ambulatory Yoselyn Ceja Facility:[facility] Start: 08-18-2024 End: 08-18-2024 Patient encounter procedure Yoselyn GREEN -[facility] Work Phone: Start: 08-18-2024 End: 08-18-2024 ambulatory Laine Dye Facility:[facility] Start: 08-12-2024 End: 08-12-2024 Emergency department patient visit Dr. Laine Dye MD Work Phone: -Emergency Department Work Phone: Start: 08-12-2024 End: 08-12-2024 Telephone encounter Laine Dye MD Work Phone: [facility] Comment on above: Medication Problem Start: 08-04-2024 End: 08-04-2024 Refill Laine Dye MD Work Phone: [facility] Start: 07-11-2024 End: 07-11-2024 Emergency department patient visit Dr. Laine Dye MD Work Phone: -Emergency Department Work Phone: Start: 07-04-2024 End: 07-04-2024 Refill Siri Gómez METAL CASTER - LINTER DRIER OPERATOR Work Phone: [facility] Comment on above: Tobacco use Start: 04-14-2024 End: 04-14-2024 ambulatory Jessica Mann RN [facility] Clinical Communication Start: 04-14-2024 End: 04-14-2024 Patient encounter procedure [facility] Start: 02-05-2024 End: 02-05-2024 Patient encounter procedure Enrique Garcia METAL CASTER.LINTER DRIER OPERATOR Work Phone: [facility] Comment on above: Procedure not hector d out (Primary Dx) Start: 02-05-2024 End: 02-05-2024 Emergency department patient visit Florentino Cardona Facility:[facility] Start: 02-05-2024 End: 02-05-2024 ambulatory LAINE DYE Facility:[facility] Start: 01-05-2024 End: 01-06-2024 Emergency department patient visit Sylvester Ramirez Work Phone: [facility] Work Phone: Start: 12-27-2023 Emergency department patient visit LAINE DYE Facility:[id number] Start: 12-27-2023 End: 12-27-2023 Admission to establishment [facility] Start: 12-27-2023 End: 12-27-2023 ambulatory [facility] Comment on above: Psychosis Start: 12-26-2023 End: 12-27-2023 Emergency department patient visit LAINE DYE Facility:[id number] Start: 11-30-2023 End: 11-30-2023 Emergency department patient visit Sylvester Ramirez Work Phone: [facility] Work Phone: Start: 09-14-2023 End: 09-15-2023 Emergency department patient visit LAINE DYE Facility:[id number] Start: 09-14-2023 Admission to establishment Genaro Harley [facility] Work Phone: [facility] Start: 09-14-2023 ambulatory Genaro Harley LP [facility] Work Phone: [facility] Comment on above: Psychiatric Problem Start: 09-01-2023 End: 09-01-2023 Emergency department patient visit MARLENA HOFFMAN Facility:[facility] Start: 08-31-2023 End: 09-01-2023 Emergency department patient visit Ze Annel Palmer DO Work Phone: [facility] Emergency Dept Comment on above: Nonintractable heada chantelle, unspecified chronicity pattern, unspecified headache type (Primary Dx); Pain of hand, unspecified laterality Start: 08-11-2023 End: 08-12-2023 [facility] Start: 08-11-2023 End: 08-11-2023 Subsequent hospital visit by physician Gen Solo Nunez [facility] Comment on above: Arrived Start: 08-10-2023 End: 08-11-2023 Emergency department patient visit [facility] Start: 08-10-2023 End: 08-11-2023 Emergency department patient visit Wes Jackson DO Work Phone: [facility] Emergency Medicine Comment on above: Acute psychosis ([place]) (Primary Dx); Alcohol intoxication with delirium ([facility]); Cannabis use disorder; Complicated laceration of hand, right, initial encounter Start: 07-02-2023 End: 07-02-2023 [facility] Start: 05-28-2023 End: 05-28-2023 [facility] Start: 01-04-2023 Emergency department patient visit LAINE DYE [facility] [facility] Start: 01-04-2023 End: 01-04-2023 [facility] Start: 09-17-2022 End: 09-17-2022 [facility] Start: 09-03-2022 End: 09-03-2022 [facility] Start: 08-04-2022 Refill Laine Dye MD Work Phone: [facility] Clinical Communication Start: 07-16-2022 End: 07-16-2022 Patient encounter procedure Rusty Townsend APRN.LINTER DRIER OPERATOR Work Phone: [facility] Comment on above: Diarrhea, unspecifie d type (Primary Dx) Start: 06-27-2022 End: 06-27-2022 Patient encounter procedure Sharon Evans APRN.LINTER DRIER OPERATOR Work Phone: [facility] Comment on above: Throat pain (Primary Dx) Start: 06-18-2022 End: 06-18-2022 [facility] Start: 05-16-2022 Telephone encounter Laine Pratt MD Work Phone: [facility] Comment on above: Med Refill Start: 04-28-2022 Refill Laine Dye MD Work Phone: [facility] Start: 12-27-2021 End: 12-27-2021 Emergency department patient visit Dr. Laine Dye Work Phone: [facility]-Emergency Department Start: 09-06-2021 End: 09-06-2021 Emergency department patient visit Dr. Laine Dye Work Phone: [facility]-Emergency Department Start: 09-06-2021 Non-patient / Non-visit Dr. Ruano Work Phone: [facility] Start: 09-01-2021 End: 09-01-2021 Emergency department patient visit [facility] Start: 03-24-2021 End: 03-24-2021 Emergency department patient visit KACIE WELLS MD [facility] Start: 03-22-2021 End: 03-22-2021 Emergency department patient visit ONEL CRAMER MD [facility] Start: 03-08-2021 End: 03-08-2021 Emergency department patient visit ZE WHITT DO [facility] Start: 01-30-2020 End: 01-30-2020 Subsequent hospital visit by physician [facility] Work Phone: Radiology Comment on above: Epigastric pain [R10 .13] Start: 02-27-2017 End: 03-13-2017 Evaluation and management of inpatient [facility] Start: 02-27-2017 End: 02-27-2017 Emergency department patient visit [facility] Start: 01-06-2017 End: 01-06-2017 Emergency department patient visit [facility] Start: 12-27-2016 End: 12-27-2016 Emergency department patient visit [facility] Start: 11-30-2016 End: 11-30-2016 Emergency department patient visit [facility] Procedures Date Procedure Procedure Detail Performing Clinician [...] Radex hand minimum 3 views Lester lentz PA-Catina Work Phone: Start: 08-10-2023 Acetaminophen [Mass/volume] in Serum or Plasma Lester Smith PA-C Work Phone: Start: 08-10-2023 End: 08-10-2023 Comprehensive metabolic panel Lester GREEN-C Work Phone: Start: 08-10-2023 Ethanol [Mass/volume] in Serum or Plasma Wes Jackson DO Work Phone: Start: 08-10-2023 Salicylates [Mass/volume] in Serum or Plasma Lester GREEN-C Work Phone: Start: 08-10-2023 PULSE OXIMETRY, CONTINUOUS Lester lentz PA-C Work Phone: Start: 08-10-2023 Drug tst prsmv instrmnt chem analyzers pr date Lester GREEN-C Work Phone: Start: 08-10-2023 Urnls dip stick/tablet rgnt auto w/o microscopy Lester GREEN-C Work Phone: Start: 11-14-2022 Lipid 1996 panel - Serum or Plasma Sierra Palmer Jr., DO Work Phone: Start: 09-03-2022 Plain chest X-ray Start: 09-06-2021 US scan of gallbladder Dr. Laine garcia Work Phone: Start: 09-01-2021 Computed tomography of abdomen and pelvis with intravenous contrast Start: 01-30-2020 Radiologic exam abdomen 2 views Marshall ford APRN.LINTER DRIER OPERATOR, DNP Work Phone: SARS-CoV-2 & FLU Antigen (Rapid) Plan of Treatment Date Care Activity Detail Author Start: 2066 RSV Immunization for Adults (1 - 1-dose 75+ series) RSV Immunization for Adults (1 - 1-dose 75+ series) [employer] Start: 2051 RSV Immunization age d 60 or older (1 - 1-dose 60+ series) RSV Immunization aged 60 or older (1 - 1-dose 60+ series) [facility] Start: 2051 RSV patient s and/or patients aged 60+ years (1 - 1-dose 60+ series) RSV patients and/or patients aged 60+ years (1 - 1-dose 60+ series) [facility] Start: 2041 Zoster Vaccines (1 of 2) Zoste r Vaccines (1 of 2) [facility] Start: 09-17-2032 DTaP/Tdap/Td Vaccine s (11 - Td or Tdap) DTaP/Tdap/Td Vaccines (11 - Td or Tdap) [facility] Start: 09-17-2032 DTaP/Tdap/Td Vaccine s (9 - Td or Tdap) DTaP/Tdap/Td Vaccines (9 - Td or Tdap) [facility] Start: 09-17-2032 Urine microalbumin profile DTaP,Tdap,Td Vaccine (8 - Td or Tdap) [facility] Start: 01-25-2030 DTaP/Tdap/Td Vaccine s (7 - Td or Tdap) DTaP/Tdap/Td Vaccines (7 - Td or Tdap) [facility] Start: 01-25-2030 Urine microalbumin profile DTAP,TDAP,TD (7 - Td or Tdap) [facility] Start: 11-15-2027 Lipid panel Lipid Panel [facility] Start: 12-26-2024 Influenza vaccination [facility] Start: 11-12-2024 [facility] Start: 11-01-2024 [facility] Start: 10-21-2024 Endoscopy upper smal l intestine w/biopsy SMALL BOWEL ENDOSCOPY/BIOPSY [facility] Start: 10-21-2024 Patient discharge [facility] Start: 10-19-2024 [facility] Start: 08-22-2024 Ova and Parasites Ova and Parasites [facility] Start: 08-12-2024 [facility] Start: 08-12-2024 [facility] Start: 07-11-2024 [facility] Start: 04-19-2024 End: 04-19-2024 Patient encounter procedure 04/19/2024 8:15 AM EST Office Visit [place] [id number] [place] [address] Laine Dye MD [address] [place] [address] [facility] Start: 12-27-2023 Covid-19 Vaccine ( season) Covid-19 Vaccine () [facility] Start: 12-27-2023 Covid-19 Vaccine () Covid-19 Vaccine () [facility] Start: 12-27-2023 Influenza vaccination [facility] Start: 07-02-2023 [facility] Start: 05-28-2023 [facility] Start: 05-19-2023 Hepatitis C screening Hepatitis C [facility] Comment on above: Postponed from 01/02 (Patient Refused) Start: 05-19-2023 HIV screening HIV Screening [facility] emily Comment on above: Postponed from 01/02 (Patient Refused) Start: 05-14-[address] [facility] Start: 04-27-2023 Behavioral Health Screening Behavioral Health Screening [facility] Start: 12-26-2022 COVID-19 Vaccine () COVID-19 Vaccine () [facility] Start: 12-26-2022 Influenza vaccination Influenz a Vaccine (Season Ended) [facility] Start: 09-03-2022 [facility] Start: 06-03-2022 End: 06-03-2022 Patient encounter procedure 06/03/2022 Office Visit Family Medicine Laine Dye MD [address] [place] [address] [facility] Start: 05-14-2022 End: 05-14-2022 Patient encounter procedure 05/14/2022 Office Visit Family Medicine Laine Dye MD [address] [place] [address] [facility] Start: 04-27-2022 DEPRESSION ASSESSMENT DEPRESSION ASS ESSMENT [facility] Start: 12-26-2021 Influenza vaccination [facility] Start: 09-01-2021 Enteric precautions [facility] Work Phone: Start: 07-24-2021 COVID-19 Vaccine (3 - Booster for Pfizer series) COVID-19 Vaccine (3 - Booster for Pfizer series) [facility] Start: 07-24-2021 COVID-19 VACCINE (4 - Booster for Pfizer series) COVID-19 VACCINE (4 - Booster for Pfizer series) [facility] Start: 01-25-2021 Pneumococcal Vaccine : Pediatrics (0 to 5 Years) and At-Risk Patients (6 to 49 Years) (2 of 2 - PCV) Pneumococcal Vaccine: Pediatrics (0 to 5 Years) and At-Risk Patients (6 to 49 Years) (2 of 2 - PCV) [facility] Start: 01-25-2021 Pneumococcal Vaccine : Pediatrics (0 to 5 Years) and At-Risk Patients (6 to 64 Years) (2 of 2 - PCV) Pneumococcal Vaccine: Pediatrics (0 to 5 Years) and At-Risk Patients (6 to 64 Years) (2 of 2 - PCV) [facility] Start: 2010 Hepatitis A Vaccines (1 of 2 - Risk 2-dose series) Hepatitis A Vaccines (1 of 2 - Risk 2-dose series) [facility] Start: 2009 Anxiety Screening Anxiety Screening [facility] Start: 2009 Depression Screening Depression Scre ening [facility] Start: 2009 HEPATITIS C SCREENING HEPATITIS C [facility] Start: 2009 Hepatitis C screening Hepatitis C [facility] Start: 2009 [facility] Start: 2009 HIV screening [facility] Start: 01-03-2004 Varicella vaccination Varicell a Vaccines (1 of 2 - 13+ 2-dose series) [facility] Start: 12-15-2003 Varicella vaccination Varicell a Vaccines (1 of 2 - 2-dose childhood series) [facility] Start: 1991 HEPATITIS B (1 of 3 - 3-dose series) HEPATITIS B (1 of 3 - 3-dose series) [facility] Start: 1991 HIV screening HIV Screening [facility] Start: 1991 Lipid panel Lipid Panel [facility] Start: 1991 Yearly Adult Physical Yearly Adult P hysical [facility] Capnography Capnography Respiratory Care STAT For RT frequency use only for continuous procedures with task-based reminders at 8a and 8p until discontinued starting 08/10/2023 [facility] Work Phone: Comment on above: For RT frequency use only for continuous procedures with task- based reminders at 8a and 8p until discontinued starting 08/10/2023 Electrocardiogram, 12-lead Electrocardiogram, 12-lead ECG STAT As needed until discontinued starting 08/10/2023 [facility] Work Phone: Comment on above: As needed until disc ontinued starting 08/10/2023 End: 08-10-2023 Extra Urine [facility] Extra Urine [facility] Lab Timed Once for 1 Occurrences starting 08/10/2023 until 08/10/2023 [facility] Work Phone: Comment on above: Once for 1 Occurrenc es starting 08/10/2023 until 08/10/2023 Ova OR parasites identification [facility] Patient Education [facility] Work Phone: Patient referral [facility] Work Phone: Radionuclide gastric emptying study [facility] End: 08-10-2023 Urinalysis complete W Reflex Culture panel - Urine [facility] Service Area Work Phone: Comment on above: Once (Lab) for 1 Occ urrences starting 08/10/2023 until 08/10/2023 Immunizations Immunization Date Immunization Notes Care Provider Fa zia 09-17-2022 tetanus toxoid, redu rosalina diphtheria toxoid, and acellular pertussis vaccine, adsorbed [facility] 05-29-2021 Covid-19, Pfizer Gra y Top, Do Not Dilute, (Age 12 Y+), Im, L Laine Dye MD Work Phone: [employer] 03-07-2021 influenza, injectabl e, quadrivalent, contains preservative Laine Dye MD Work Phone: [facility] 03-07-2021 influenza virus vacc ine, unspecified formulation Laine Dye MD Work Phone: [facility] 12-25-2020 Pfizer SARS-CoV-2 Vaccination Laine Dye MD Work Phone: [facility] 12-07-2020 Pfizer SARS-CoV-2 Vaccination Laine Dye MD Work Phone: [facility] 08-01-2020 influenza virus vacc ine, unspecified formulation Laine Dye MD Work Phone: [facility] 01-26-2020 influenza, injectabl e, quadrivalent, preservative free Laine Dye MD Work Phone: [facility] 01-26-2020 influenza, seasonal, injectable Laine Dye MD Work Phone: [facility] 01-26-2020 pneumococcal polysaccharide vaccine, 23 valent Laine Dye MD Work Phone: [facility] 01-26-2020 tetanus toxoid, redu rosalina diphtheria toxoid, and acellular pertussis vaccine, adsorbed Laine Dye MD Work Phone: [facility] 03-10-2017 influenza, injectabl e, quadrivalent, preservative free Laine Dye MD Work Phone: [facility] 08-19-2016 Human Papillomavirus 9-valent vaccine Laine Dye MD Work Phone: [facility] 04-02-2016 Human Papillomavirus 9-valent vaccine Laine Dye MD Work Phone: [facility] 04-02-2016 tetanus toxoid, redu rosalina diphtheria toxoid, and acellular pertussis vaccine, adsorbed Laine Dye MD Work Phone: [facility] 02-08-2016 influenza, injectabl e, quadrivalent, contains preservative Laine Dye MD Work Phone: [facility] 02-08-2016 influenza, seasonal, injectable Laine Dye MD Work Phone: [facility] 01-18-2016 Human Papillomavirus 9-valent vaccine Laine Dye MD Work Phone: [facility] 03-06-2015 influenza virus vacc ine, unspecified formulation Laine Dye MD Work Phone: [facility] 05-07-2011 TD(adult) unspecifie d formulation Laine Dye MD Work Phone: [facility] 05-07-2011 tetanus and diphther ia toxoids, adsorbed, preservative free, for adult use (2 Lf of tetanus toxoid and 2 Lf of diphtheria toxoid) Laine Dye MD Work Phone: [facility] 05-07-2011 tetanus and diphther ia toxoids, not adsorbed, for adult use Laine Dye MD Work Phone: [facility] 05-07-2011 tetanus toxoid, redu rosalina diphtheria toxoid, and acellular pertussis vaccine, adsorbed Laine Dye MD Work Phone: [facility] 11-17-2003 measles, mumps and rubella virus vaccine Laine Dye MD Work Phone: [facility] 11-19-1999 hepatitis B vaccine, adult dosage Laine Dye MD Work Phone: [facility] 11-19-1999 hepatitis B vaccine, unspecified formulation Laine Dye MD Work Phone: [facility] 06-13-1999 hepatitis B vaccine, adult dosage Laine Dye MD Work Phone: [facility] 06-13-1999 hepatitis B vaccine, unspecified formulation Laine Dye MD Work Phone: [facility] 05-06-1999 hepatitis B vaccine, adult dosage Laine Dye MD Work Phone: [facility] 05-06-1999 hepatitis B vaccine, unspecified formulation Laine Dye MD Work Phone: [facility] 12-05-1996 diphtheria, tetanus toxoids and acellular pertussis vaccine Laine Dye MD Work Phone: [facility] 12-05-1996 diphtheria, tetanus toxoids and acellular pertussis vaccine, unspecified formulation Laine Dye MD Work Phone: [facility] 07-19-1992 diphtheria, tetanus toxoids and acellular pertussis vaccine Laine Dye MD Work Phone: [facility] 07-19-1992 diphtheria, tetanus toxoids and acellular pertussis vaccine, unspecified formulation Laine Dye MD Work Phone: [facility] 04-17-1992 haemophilus influenz ae type b vaccine, conjugate unspecified formulation Laine Dye MD Work Phone: [facility] 04-17-1992 haemophilus influenz ae type b vaccine, PRP-OMP conjugate Laine Dye MD Work Phone: [facility] 04-17-1992 measles, mumps and rubella virus vaccine Laine Dye MD Work Phone: [facility] 04-17-1992 poliovirus vaccine, inactivated Laine Dye MD Work Phone: [facility] 1991 diphtheria, tetanus toxoids and acellular pertussis vaccine Laine Dye MD Work Phone: [facility] 1991 diphtheria, tetanus toxoids and acellular pertussis vaccine, unspecified formulation Laine Dye MD Work Phone: [facility] 1991 haemophilus influenz ae type b vaccine, conjugate unspecified formulation Laine Dye MD Work Phone: [facility] 1991 haemophilus influenz ae type b vaccine, PRP-OMP conjugate Laine Dye MD Work Phone: [facility] 1991 poliovirus vaccine, inactivated Laine Dye MD Work Phone: [facility] 1991 diphtheria, tetanus toxoids and acellular pertussis vaccine Laine Dye MD Work Phone: [facility] 1991 diphtheria, tetanus toxoids and acellular pertussis vaccine, unspecified formulation Laine Dye MD Work Phone: [facility] 1991 haemophilus influenz ae type b vaccine, conjugate unspecified formulation Laine Dye MD Work Phone: [facility] 1991 haemophilus influenz ae type b vaccine, PRP-OMP conjugate Laine Dye MD Work Phone: [facility] 1991 poliovirus vaccine, inactivated Laine Dye MD Work Phone: [facility] 1991 haemophilus influenz ae type b vaccine, conjugate unspecified formulation Laine Dye MD Work Phone: [facility] 1991 haemophilus influenz ae type b vaccine, PRP-OMP conjugate Laine Dye MD Work Phone: [facility] 1991 poliovirus vaccine, inactivated Laine Dye MD Work Phone: [facility] Payers Date Payer Category Payer Self-pay [id number] 2022 Medicaid HMO [employer] [id number] 2022 Medicaid [id number] 2018 Medicaid [id number] 1991 Unknown [id number] 1991 Unknown [id number] Unknown [id number] Unknown [id number] Unknown [id number] Unknown [id number] Unknown [id number] Unknown [id number] Unknown [id number] Unknown [id number] Unknown [id number] Unknown [id number] Unknown [id number] Unknown [id number] Unknown [id number] Unknown [id number] Unknown [id number] Social History Date Type Detail Facility Start: 04-25-2019 Light tobacco smoker (finding) [facility] Start: 1990 Sex Assigned At Male [facility] Jaden Merchant Start: 09-01-2021 End: 01-05-2024 Tobacco smoking status NHIS Unknown if ever smoked [facility] Start: 03-13-2020 Occasional [facility] Start: 03-13-2020 - [facility] Start: 03-13-2020 Alone [facility] Start: 11-07-2019 Chew [facility] Start: 07-15-2017 End: 06-27-2022 Tobacco smoking status NHIS Ex-smoker [facility] End: 03-18-2017 History of tobacco use Current smoker [facility] Start: 08-25-2022 End: 03-18-2017 History of tobacco use Cigarette Smoker [facility] Start: 06-27-2022 End: 11-11-2022 Cigarettes smoked current (pack per day) - Reported 1 [facility] Start: 07-15-2017 End: 06-27-2022 Tobacco use and exposure Smokeless tobacco non-user [facility] Start: 06-27-2022 End: 08-31-2023 Alcohol intake Current non-drinker of alcohol (finding) [facility] Start: 04-01-2017 Alcohol Comment previous alcohol problem [facility] Start: 1990 Sex Assigned At Not on file [facility] Start: 05-19-2022 History SDOH Financial 2 [facility] Start: 05-19-2022 History SDOH Food Worry 1 [facility] Start: 11-11-2022 End: 08-31-2023 Gender identity Not on file [facility] Work Phone: Start: 12-31-2019 End: 08-10-2023 Exposure to SARS-CoV-2 (event) Not sure [facility] Start: 11-11-2022 End: 11-12-2024 Tobacco smoking status NHIS Smokes tobacco daily [facility] Start: 11-11-2022 Tobacco use and exposure Former smokeless tobacco user [facility] How hard is it for y ou to pay for the very basics like food, housing, medical care, and heating Hard [facility] (I/We) worried wheth er (my/our) food would run out before (I/we) got money to buy more. Never true [facility] In the past 12 month s, has lack of transportation kept you from medical appointments or from getting medications? No [facility] Start: 01-05-2024 [facility] Start: 11-25-2021 End: 08-12-2024 Sex Male (finding) [facility] Goals Date Patient Goal Desired Activity /State Functional Status Date Assessment Result Facility 03-13-2017 Are you deaf, or do you have serious difficulty hearing No 03/13/2017 9:49 AM Regina Mark, AZAEL [facility] 03-13-2017 Are you blind, or do you have serious difficulty seeing, even when wearing glasses No 03/13/2017 9:49 AM Regina aMrk, AZAEL [facility] 03-13-2017 Do you have serious difficulty walking or climbing stairs No 03/13/2017 9:49 AM Regina Mark, AZEAL [facility] 03-13-2017 Do you have difficul ty dressing or bathing No 03/13/2017 9:49 AM Regina Mark, AZAEL [facility] 03-13-2017 Because of a physica l, mental, or emotional condition, do you have difficulty doing errands alone such as visiting a physician's office or shopping No 03/13/2017 9:49 AM Regina Mark, AZAEL [facility] Mental Status Date Assessment Result Facility 11-01-2024 Cognitive function Level Of Cons ciousness Awake;Alert;Follows Commands;Restless [facility] Work Phone: 10-21-2024 Cognitive function Voice/Name [facility] Work Phone: 01-05-2024 Cognitive function Patient Orien tation Person;Place;Time;Location/ Situation [facility] Work Phone: 11-30-2023 Cognitive function Patient Orien tation Person;Place;Location/Situa tion [facility] Work Phone: 05-28-2023 Cognitive function Level Of Cons ciousness Awake;Alert;Appropriate;Fol lows Commands [facility] Work Phone: 09-03-2022 Cognitive function Voice/Name [facility] Work Phone: 12-27-2021 Cognitive function Level Of Cons ciousness Awake;Alert;Appropriate;Fol lows Commands [facility] Work Phone: 03-13-2017 Because of a physica l, mental, or emotional condition, do you have serious difficulty concentrating, remembering, or making decisions No 03/13/2017 9:49 AM Regina Mark RN No [facility] Clinical Notes 01-30-2020 to 11-07-2024 Telephone Encounter - NORMA Lundberg CNP - 11/07/2024 11:11 AM EDTTelephone Encounter - NORMA Lundberg CNP - 11/07/2024 11:11 AM EDT Note Date & Type Note Facility 11-07-2024 Telephone encount er Note Reviewed chart. Refill appropriate. RX sent. [facility] 11-07-2024 Miscellaneous Notes Formattin g of this [...] the medication: No documented in this encounter [facility] 11-07-2024 Telephone encount er Note Pended prior rx of albuterol inh. [facility] 11-07-2024 Telephone encount er Note Pt stated [...] prior to picking up the medication: No [facility] 11-06-2024 Telephone encount er Note Patient was seen at outside hospital ED. Patient requesting refills on medications ordered. No PCP at [facility]. Transferred patient to [facility] for further assistance. [facility] 11-06-2024 Miscellaneous Notes Formattin g of this note might be different from the original. Patient was seen at outside hospital ED. Patient requesting refills on medications ordered. No PCP at [facility]. Transferred patient to [facility] for further assistance. documented in this encounter [facility] 11-01-2024 Discharge summary [facility] 11-01-2024 Radiology Diagnostic study note [facility] Imaging Services [address] [place] [address] Abdomen/Pelvis W IV Cont ONLY MR#: [id number] Acct: [id number] Name: MATTY WHITLOCK Rep #: [id number] : 1990 M 34 From: Helen Isbell MD PCP: Dr. Laine Dye MD Status: REG ER Study:Abdomen/Pelvis W IV Cont ONLY Date of E xam: 11/01/24 Exam# [id number] Ordering Dr: Aidan Craig DO PROCEDURE: ABDOMEN/PELVIS [...] acute diverticulitis. No bowel obstruction. Reading Location: [facility] CC: Dr. Aidan Hickey DO; Dr. Laine Dye MD ~ Technical Support Engineer: Signed [facility] 11-01-2024 Radiology Diagnostic study note [facility] Imaging Services [address], [place] [address] Chest 1 View (Portable) MR#: [id number] Acct: [id number] Name: MATTY WHITLOCK Rep #: [id number] : 1990 34 From: Mitul Cantu MD PCP: Dr. Laine Dye MD Status: REG ER Study:Chest 1 View (Portable) Date of Exam: 11/01/24 Exam# [id number] Ordering Dr: Aidan Craig DO PROCEDURE: CHEST [...] space, indicative coracoclavicular ligament disruption. Reading Location: [id number] CC: Dr. Aidan Hickey DO; Dr. Laine Dye MD ~ Technical Support Engineer: Signed [facility] 11-01-2024 Discharge summary Note Date/Time November 01, 2024 7:48pm [facility] Medical Records Department [address] [place] [address] Emergency Department Summary 11/01/24 MR#: [id number] Acct: [id number] Name: MATTY WHITLOCK Rep #:[id number] : 1990 34 From: Aidan Mcdowell ggett DO PCP: Dr. Laine Dye MD Status:REG [...] grossly intact, sensation intact Psych: Cooperative, anxious [facility] Medical History Dietary restriction Esophageal tear Smoker [...] % (Auto) 69.0 Lymph % (Auto) 22.2 Graham % (Auto) 6.0 Eos % (Auto) 1.6 [...] acute diverticulitis. No bowel obstruction. Reading Location: [facility] Chest X-Ray 11/01/24 15:50 IMPRESSION: No evidence of pneumoperitoneum. No pleural effusion or pneumothorax is seen. Lungs appear clear throughout. The cardiomediastinal silhouette is within the normal range. 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 Reading Location: [address] Discharge Plan Triage Chief Complaint: Other, Pain/Inj ED Provider: Aidna Hickey Dx/Rx/DC Orders Clinical Impression: Chronic epigastric [...] were prescribed by Dr. Herndon. Print Language: Cambodian Disposition Disposition: Home, Self Care What to do if you have Problems For any increased pain, shortness of breath, bleeding, nausea or vomiting, chestpain, or any unexpected problems, contact your Primary Care Provider. Call [facility] ([phone]) or report to the closest Emergency Room. Call 911 if necessary. 11/01/241947 <Electronically signed by Aidan Hickey DO> Cosigner Signature (if applicable): CC: Dr. Laine Dye MD ~ Signed [facility] Work Phone: 1(968) 741-563106-27-2025 Consult note [facility] Medical Records Department [address] [place] [address] Anesthesia Postop Eval II 10/21/24 1311 MR#: [id number] Acct: [id number] Name: MATTY WHITLOCK Rep #:[id number] : 1990 34 From: Myla Upton LINUX ADMINISTRATOR PCP: Dr. Laine Dye MD Status:REG [facility] Y Race: C Location: [address] Anesthesia Postop Eval I Sum Postop Eval Completion status Anesthesia document: Postop Eval 1 completed: Yes Anesthesia Postop Eval I Summary Anesthesia Postop Eval I Summary: Anesthesia Postop Eval I: Assessment Summary Airway patent Yes 10/21/24 12:36 LINUX ADMINISTRATOR.CSIR Spontaneous unlabored Yes 10/21/24 12:36 LINUX ADMINISTRATOR.CSIR respirations Mental status nausea No 10/21/24 12:36 LINUX ADMINISTRATOR.CSIR Vomiting No 10/21/24 12:36 LINUX ADMINISTRATOR.CSIR Anesthesia Postop Eval I: Fluid Summary Crystalloid volume administer 500 10/21/24 12:36 LINUX ADMINISTRATOR.CSIR (ml) Colloids volume administered ( ml) Blood Product volume administered (ml) Total IV fluid infused 500 10/21/24 12:36 LINUX ADMINISTRATOR.CSIR Anesthesia Postop Eval I: Summary Notes Anesthesia Complication No 10/21/24 12:36 LINUX ADMINISTRATOR.CSIR Anesthesia Complication Comment: Post-operative progress note Anesthesia: Postop Eval II Evaluation Mental status: Awake Pain Level: 0 nausea: No Vomiting: No 10/21/24 1311 a LINUX ADMINISTRATOR> Date _ Myla Uptno LINUX ADMINISTRATOR Cosigner Signature: Date CC: ~ Signed [facility]06-27-2025 History and physical note Author Vishnu Friend [facility] Note Date/Time October 21, 2024 11:1 6am [facility] Medical Records Department [address] [place] [address] History & Physical Exam 10/21/24 1113 MR#: [id number] Acct: [id number] Name: MATTY WHITLOCK Rep #:[id number] : 1990 34 From: Vishnu Herndon DO PCP: Dr. Laine Dye MD Status:[facility] Location: [place] [address] HPI - General General Date of Admission: [...] - Erythematous duodenopathy. Biopsied. GES; not completed [facility] ED 07.21.24 with abd pain and anxiety. [...] few days ago but this went away. [facility] Medical History (Updated 10/20/24 @ 10:04 by [...] Laine Dye MD; Vishnu Herndon DO~ Signed [facility] Work Phone: [phone]) 114-642806-27-2025 Procedure note [facility] Medical Records Department [address] [place] [address] EGD Report MR#: [id number] Acct: [id number] Name: MATTY WHITLOCK Rep #:[id number] : 1990 34 From: Vishnu Herndon DO PCP: Dr. Laine Dye MD Status:[facility] Patient Name: Matty Whitlock Procedure Date: [...] 1 month. Procedure Code(s): --- Professional --- 39334, Small intestinal endoscopy, enteroscopy beyond second portion of duodenum, not including ileum; with biopsy, single or multiple CPT copyright 2021 [employer]. All rights reserved. The codes documented in this report are preliminary and upon electric operator review may be revised to meet current compliance requirements. Vishnu Herndon DO 10/21/2024 12:37:44 PM This report has been signed electronically. Number of Addenda: 0 Note Initiated On: 10/21/2024 12:13 PM 10/21/24 1237 Date _ Vishnu Herndon DO Cosigner Signature: Date (if indicated) CC: Dr. Laine Dye MD; Vishnu Herndon DO ~ Date Dictated: 10/21/24 1213 Date Transcribed: Technical Support Engineer: RF Signed [facility]06-27-2025 Procedure note [facility] Medical Records Department [address] [place] [address] Operative Report - CC Letter MR#: [id number] Acct: [id number] Name: MATTY WHITLOCK Rep #:[id number] : 1990 34 From: Vishnu Herndon DO PCP: Dr. Laine Dye MD Status:REG SDC 10/21/2024 Laine Dye Re : Upper GI [...] ~ Date Dictated: 10/21/24 1213 Date Transcribed: Technical Support Engineer: RF Signed [facility]06-27-2025 Consult note [facility] Medical Records Department [address] [place] [address] Anesthesia Postop Eval I 10/21/24 1236 MR#: [id number] Acct: [id number] Name: MATTY WHITLOCK Rep #:[id number] : 1990 34 From: Myla Upton CRNA PCP: Dr. Laine Dye MD Status:REG [facility] Y Race: C Location: [place] [address] Anesthesia: Postop Eval I Current Vital Signs Temperature: 97.6 F Pulse Rate: 70 Blood Pressure: 125/78 Respiratory Rate: 20 Pulse Ox: 95 Assessment Airway patent: Yes Spontaneous unlabored respirations: Yes nausea: No Vomiting: No Anesthesia Complication: No Fluid Hydration Crystalloid volume administer (ml): 500 Total IV fluid infused: 500 Progress Note Anesthesia document: Postop Eval 1 completed: Yes 10/21/24 1236 a LINUX ADMINISTRATOR> Date _ Mylamark Upton LINUX ADMINISTRATOR Cosigner Signature: Date CC: ~ Signed [facility]06-27-2025 Consult note [facility] Medical Records Department [address] [place] [address] Pre-Anesthesia Evaluation 10/21/24 1139 MR#: [id number] Acct: [id number] Name: MATTY WHITLOCK Rep #:[id number] : 1990 34 From: Corby Rizo MD PCP: Dr. Laine Dye MD Status:REG [facility] Y Race: C Location: [place] [address] ASA Classification* ASA Classification ASA Classification: 3 [...] mmol/L (3.3-5.1) 08/12/24:08/12/24 Sodium 133 mmol/L (133-145) 08/12/24 18:08/12/24 BUN 5 mg/dL (4-19) 08/12/24 18:08/12/24 Creatinine 0.93 mg/dL (0.70-1.20) 08/12/24 18:08/12/24 Glucose 104 mg/dL (70-99) H 08/12/24 18:08/12/24 TSH 1.30 uIU/mL (0.358-3.74) 10/24/19 16:31 COAG Pre-Assessment Diagnosis/Proposed Procedure Planned Operative Procedure(s): EGD Anesthesia History Anesthesia History - cook chili: Anesthesia History - cook chili Hx Hospitalization No 10/20/24 09:55 Any Problems [...] sips of water?: Yes PONV PONV - cook chili: PONV - cook chili Female No 10/20/24 09:55 HX of Motion [...] 10/21/24 11:14 Respiratory Assessment Respiratory Assessment - cook chili: Respiratory Tract Infection Hx - cook chili Hx Respiratory Tract Infection Yes: CURRENT CHEST COLD 10/20/24 09:55 STOP Sleep Apnea STOP Sleep Apnea - cook chili: STOP Sleep Apnea - cook chili Hx Hypertension No 10/20/24 09:55 Hx Sleep [...] Tobacco Use History Tobacco Use History - cook chili: Tobacco Use History - cook chili Tobacco Use Smoking Status Current every day smoker 10/20/24 09:55 Hx Tobacco Use Yes 10/20/24 09:55 Years Smoking Packs Smoked per Day 0.5 10/20/24 09:55 Smoking Cessation Date was within the last 15 years Hx Smoking Cessation Date Hx Smoking Cessation Counseling Any additional information?: Yes Smoking Status: Current every day smoker (Patient smoked today.) Hematologic Medial History Hematologic Hx - cook chili: Hematologic Medical Hx - terminal carman Hx of Blood Transfusion No 10/20/24 09:55 [...] confused, unrespo /Reproduction History /Reproductive History - cook chili: /Reproductive Hx- cook chili Hx Now No 10/20/24 09:55 Gestational Age [...] MD Cosigner Signature: Date CC: ~ Signed [facility]06-27-2025 History and physical note [facility] Medical Records Department [address] [place] [address] History & Physical Exam 10/21/24 1113 MR#: [id number] Acct: [id number] Name: MATTY WHITLOCK Rep #:[id number] : 1990 34 From: Vishnu Friend PCP: Dr. Laine Dye MD Status:[facility] Location: [place] [address] HPI - General General Date of Admission: [...] - Erythematous duodenopathy. Biopsied. GES; not completed [facility] ED 07.21.24 with abd pain and anxiety. [...] few days ago but this went away. [facility] Medical History (Updated 10/20/24 @ 10:04 by [...] 1 mg capsule 1 mg PO QHS 03/17/25 06/26/2 5 History esomeprazole magnesium 40 mg 40 [...] Laine Dye MD; Vishnu Herndon DO~ Signed [facility]06-27-2025 [facility] Medical Records Department [address] [place] [address] History Physical Exam 10/21/24 1113 MR#: [id number] Acct: [id number] Name: MATTY WHITLOCK Rep #: [id number] : 1990 34 From: Vishnu Herndon DO PCP: Dr. Laine Dye MD Status:[facility] Location: [place] [address] HPI - General General Date of Admission: 10/21/24 Date of Service: 10/21/24 Chief Complaint: Abdominal pain and GERD HPI Narrative MATTY WHITLOCK, is a 34 M who presents for the evaluation of : epigastric pain BGI established in 2019 with abd pain. EGD .12.16 - LA Grade B reflux esophagitis. Biopsied. - Non-obstructing Schatzki ring. - Erythematous mucosa in the antrum. Biopsied. - Erythematous duodenopathy. Biopsied. GES; not completed [facility] ED 07.21.24 with abd pain and anxiety. Work up with mild leukocytosis with a left shift. Rectal exam with blood OV 4 Pt here today to re establish care [...] few days ago but this went away. [facility] Medical History (Updated 10/20/24 @ 10:04 by [...] Dr. Laine Dye MD; Vishnu Herndon DO [facility] Discharge summary [facility] Medical Records Department [address] [place] [address] Emergency Department Summary 10/19/24 MR#: [id number] Acct: [id number] Name: MATTY WHITLOCK Rep #:[id number] : [...] sick contacts denies any history of bloodclots. [facility] Medical History Asthma Depression Anxiety Wears glasses [...] following commands knew that he was at [facility] years 2024 Skin: Warm, dry, intact no [...] 15:15 IMPRESSION: NO ACUTE FINDINGS. Reading Location: [id number] Discharge Plan Triage Chief Complaint: Anxiety ED [...] show any evidence of pneumonia. Print Language: Cambodian Disposition Disposition: Home, Self Care What to do if you have Problems For any increased pain, shortness of breath, bleeding, nausea or vomiting, chestpain, or any unexpected problems, contact your Primary Care Provider. Call [facility] ([phone]) or report tothe closest Emergency Room. Call 911 if necessary. 10/19/24 1645 Cosigner Signature (if applicable): CC: Dr. Laine Dye MD ~ Signed [facility]06-25-2025 Radiology Diagnostic study note [facility] Imaging Services [address] [place], [place] [id number] Chest PA and Lateral MR#: [id number] Acct: [id number] Name: MATTY WHITLOCK Rep #: [id number] : 1990 M 34 From: Wilfred Ferreira MD PCP: Dr. Laine Dye MD Status: REG ER Study:Chest PA and Lateral Date of Exam: 10/19/24 Exam# [id number] Ordering Dr: Myla Aguilar DO PROCEDURE: CHEST PA AND LATERAL 10/19/2024 REASON FOR EXAM: SOB TECHNIQUE: CHEST PA AND LATERAL COMPARISON: Prior study dated September 03, 2022. FINDINGS: Hardware: None Heart: The heart size is normal. Mediastinum: The mediastinal contour is unremarkable. Lungs: The lungs are clear. Bones: The bones are unremarkable. RAD/Chest PA and Lateral IMPRESSION: NO ACUTE FINDINGS. Reading Location: [id number] CC: Dr. Laine Dye MD; Dr. Lester Aguilar DO ~ Technical Support Engineer: Signed [facility]06-25-2025 Discharge summary Author Lester Aguilar [facility] Note Date/Time October 19, 2024 4:45 pm [facility] Medical Records Department [address] [place] [address] Emergency Department Summary 10/19/24 MR#: [id number] Acct: [id number] Name: MATTY WHITLOCK Rep #:[id number] : [...] contacts denies any history of blood clots. [facility] Medical History Asthma Depression Anxiety Wears glasses [...] following commands knew that he was at [facility] years 2024 Skin: Warm, dry, intact no [...] 15:15 IMPRESSION: NO ACUTE FINDINGS. Reading Location: [id number] Discharge Plan Triage Chief Complaint: Anxiety ED [...] 0RF Primary Care Provider: Laine Dye Referrals: Liane Dye MD [Primary Care Provider] - Activity Restrictions/Additional Instructions: Follow-up your doctor in outpatient setting. Use inhaler as prescribed. Returnwith worsening symptoms and concerns. Your chest x-ray did not show any evidence of pneumonia. Print Language: Cambodian Disposition Disposition: Home, Self Care What to do if you have Problems For any increased pain, shortness of breath, bleeding, nausea or vomiting, chestpain, or any unexpected problems, contact your Primary Care Provider. Call [facility] ([phone]) or report to the closest Emergency Room. Call 911 if necessary. 10/19/24 1645 <Electronically signed by Lester Aguilar DO> Cosigner Signature (if applicable): CC: Dr. Laine Dye MD ~ Signed [facility] Work Phone: 1([phone]) 254-204904-24-2025 Evaluation note* Diagnosis Onset Date Resolution Status Admit Date Chronic gastroesophageal ref lux disease inactive August 18, 2024 4:00pm [facility] Work Phone: 1(562) 286-567704-24-2025 Evaluation note* Diagnosis Onset Date Resolution Status Admit Date Chronic gastroesophageal ref lux disease inactive August 18, 2024 4:00pm Gastro-esophageal reflux dis ease with esophagitis, without bleeding acute October 21, 2024 10:58am Abdominal pain chronic October 21, 2024 10:58am Bipolar 1 disorder chronic September 262024 10:58am [facility] Work Phone: 1(813) 958-922804-24-2025 Evaluation note* Diagnosis Onset Date Resolution Status [...] Abdominal pain chronic November 09, 2024 3:36pm [facility] Work Phone: [phone] Telephone encounter Note* Telephone Encounter - NORMA Lundberg CNP - 08/12/2024 12:36 PM EDT Prescription sent for pantoprazole 20 mg twice daily. [id number] Miscellaneous Notes* Telephone Encounter - NORMA Lundberg CNP - 08/12/2024 12:36 PM EDT Prescription sent for pantoprazole 20 mg twice daily. * Telephone Encounter - Francie Bates - 08/12/2024 11:19 AM EDT Name of caller: Jay Contact phone number: [phone] Relationship to Patient: patient Provider: [facility] Practice: [...] return their call: No documented in this encounterSDunlap Memorial HospitalLzmkmd40-46-4625 Telephone encounter Note* Telephone Encounter - Francie Bates - 08/12/2024 11:19 AM EDT Name of caller: Jay Contact phone number: [phone] Relationship to Patient: patient Provider: [facility] Practice: [...] business hours to return their call: No [facility]Ygpidd38-34-3712 Telephone encounter Note* Telephone Encounter - Rita [...] prior to picking up the medication: Yes [facility]04-10-2025 Miscellaneous Notes* Telephone Encounter - Rita Farrell [...] up the medication: Yes documented in this [facility]03-17-2025 Discharge summary [facility] Medical Records Department [address] [place] [address] Emergency Department Summary 07/11/24 MR#: [id number] Acct: [id number] Name: MATTY WHITLOCK Rep #:[id number] : [...] complaints or concerns reported at this time. [facility] Medical History Asthma Depression Anxiety Wears glasses [...] rectum while in the emergency room. His [place] score at this time is 8 which [...] 80.0 H Lymph % (Auto) 12.3 L Graham % (Auto) 6.3 Eos % (Auto) 0.3 [...] return to the emergency room. Print Language: Cambodian Disposition Disposition: Home, Self Care What to do if you have Problems For any increased pain, shortness of breath, bleeding, nausea or vomiting, chestpain, or any unexpected problems, contact your Primary Care Provider. Call [facility] ([phone]) or report tothe closest Emergency Room. Call 911 if necessary. 07/11/24 6882 Cosigner Signature (if applicable): CC: Dr. Laine Dye MD ~ Signed [facility]03-17-2025 Discharge summary Author Gricel Talley [facility] Note Date/Time July 11, 2024 3:3 4pm [facility] Medical Records Department [address] [address] Emergency Department Summary 07/11/24 MR#: [id number] Acct: [id number] Name: MATTY WHITLOCK Rep #:[id number] : [...] complaints or concerns reported at this time. [facility] Medical History Asthma Depression Anxiety Wears glasses [...] magnesium 20 mg 20 mg PO BID 03/17/25 Unk nown History capsule,delayed release esomeprazole magnesium [...] rectum while in the emergency room. His [place] score at this time is 8 which [...] 80.0 H Lymph % (Auto) 12.3 L Graham % (Auto) 6.3 Eos % (Auto) 0.3 [...] return to the emergency room. Print Language: Cambodian Disposition Disposition: Home, Self Care What to do if you have Problems For any increased pain, shortness of breath, bleeding, nausea or vomiting, chestpain, or any unexpected problems, contact your Primary Care Provider. Call [facility] ([phone]) or report to the closest Emergency Room. Call 911 if necessary. 07/11/24 1534 <Electronically signed by Gricel Talley DO> Cosigner Signature (if applicable): CC: Dr. Laine Dye MD ~ Signed [facility] Work Phone: [phone] Telephone encounter Note* Telephone Encounter - NORMA Lundberg CNP - 07/04/2024 12:48 PM EDT Step down therapy dose sent [id number] Miscellaneous Notes* Telephone Encounter - NORMA Lundberg CNP - 07/04/2024 12:48 PM EDT Step down therapy dose sent * Telephone Encounter - Maritza Ni MA - 07/04/2024 10:21 AM EDT No follow up on file documented in this encounterSDunlap Memorial HospitalJogjsh27-20-8670 Telephone encounter Note* Telephone Encounter - Maritza Ni MA - 07/04/2024 10:21 AM EDT No follow up on file [facility] HospitalGnngig82-03-7190 Telephone encounter Note* Telephone Encounter - Celia Shukla MA - 04/18/2024 4:22 PM EST Patient has appt scheduled for 04/19 will address at visit [employer] [id number] Miscellaneous Notes* Telephone Encounter - Celia Shukla MA - 04/18/2024 4:22 PM EST Patient has appt scheduled for 04/19 will address at visit * Telephone Encounter - Celia Shukla MA - [...] be seen Protocols used: Abdominal Pain - Nvsxb-QTURU-EV documented in this encounterSDunlap Memorial HospitalJplblu82-65-5066 Telephone encounter Note* Telephone Encounter - Celia Shukla MA - 04/14/2024 2:19 PM EST Attempted to call Matty unsure if patient has an automated system for phone answering, was unable to leave message. [facility] HospitalZecokt49-25-2079 Miscellaneous Notes* Telephone Encounter - Celia Shukla [...] be seen Protocols used: Abdominal Pain - Zybmr-FOAWF-TG documented in this encounterSDunlap Memorial HospitalGkctum80-93-1420 Telephone encounter Note* Telephone Encounter - Laine Dye MD - 04/14/2024 2:11 PM EST Rx sent for Nexium [facility] HospitalTbajuz40-07-5392 Telephone encounter Note* Telephone Encounter - Jessica [...] be seen Protocols used: Abdominal Pain - Schjt-VWMAD-PM [facility]10-11-2024 NoteHNO ID: [id number] Author: ENRIQUE GARCIA APRN.LINTER DRIER OPERATOR Service: ? Author Type: Nurse Practitioner Type: Progress Notes Filed: 02/05/2024 13:22 Note Text: Nontoxic-appearing male presents urgent care requesting medication refill. Patient states recently was released from assisted. Did not get a prescription for any [...] staff member to counseling center. Enrique Garcia APRN.[facility]IN[facility]10-11-2024 History of Present illness Narrative* Enrique Garcia APRN.LINTER DRIER OPERATOR - 02/05/2024 1:10 PM EDT Nontoxic-appearing male presents urgent care requesting medication refill. Patient states recently was released from assisted. Did not get a prescription for any [...] staff member to counseling center. Enrique Garcia APRN.PRAVIN documented in [facility] encounterWayne [facility]09-11-2024 History and physical note Author Omkar Del Cid [facility] January 06, 2024 4:01am Note Date/Time January 05, 2024 10:30pm MATTY WHITLOCK Male [id number] Attending provider: [facility] ER [id number] Omkar Del Cid 1990 34 DOS: 01/05/24 [...] MD 01/05/2024 10:41:35 PM EST Workstation ID: [id number] REPORT SIGNATURE ON FILE Electronically Signed Date/Time: 01/05/242240 Dictated Date/time: 01/05/240; I d/w pt all imaging results. Mini resp panel NEGATIVE. [place] slip has been filled out for pt. We had reached out to the patient's mother spoke to her on the phone and she indicates the patient has had a long history with substance abuse. His urine drug screen is positive for methamphetamines. Mother states that he has been living in a homeless camp in [place] called mother bashir landin And he has been having a lot of problems with someone named Bettye, And the patient had indicated threats of harm against this person earlier tonight. We reached out to psychiatric facilities and patient has been accepted to [facility] by Dr. Aceves. This note is completed with assistance of the [employer] dictation program. While every attempt has been [...] Dictated Date/Time:01/05/242124 Electronically Signed Date/Time: 01/06/24 0301 [facility] Work Phone: 1(977) 299-105609-01-2024 Note* Behavorial Health Intake - Celia Escamilla LSW - 12/27/2023 11:47 AM EDT BEHAVIORAL HEALTH INTAKE NOTE SERVICE DATE: 12/27/2023 SERVICE TIME: 1146 Nature of the crisis: Psychosis Presenting Problem: Matty Whitlock is a 33 year old male [facility], [...] this worker thathe has been staying at [facility] [employer] ([place] in [place]) for the last 4 days and needed to get away from there. He stated that he has been homeless for awhile, and reports hearing and seeing volatile things around that area, but would not elaborate on this. When asked if he would like homeless residential resources for the area, he advised he has not been staying at homeless shelters outof spite and instead wanted to go to [place] shelters instead. Pt was asked about any family orsupport systems and he stated he has not been in contact with family for a long time. He reported no changes in eating, sleeping, or appetite. His goal for today was to rest a bit and [facility]. Suicidal Ideations/Homicidal Ideations/self-Harm Behaviors Pt [...] a provider at [facility], last known appt was over a yearago. 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 SOCIAL HISTORY: Social [...] a : No Stressors: Other: See Comment (Homelessness) Legal History: Arrests, Convictions, Probation Legal Details: 2012 - (M4) DISORDERLY CONDUCT; 2008 - (M1) DWI How Legal Issues Were Verified: [facility] [employer] Website, [facility], Other: See Comment ([facility]) Gender Specific Test: Not Applicable Sex [...] & Affect Patient Described Mood: tired Other Milk Driver Described Mood: reserved Milk Driver: CRISTIN Aguila Observed/Reported: Labile Range of Affect: [...] Continence: Continent MENTAL HEALTH SERVICES: Agency/Organization: The [facility] Inpatient Mental Health Treatment History: Within [...] to rest a bit and go to [place] Coordination of Care with: ED RN, ED [...] physician: Yes Discussed case with Dr. Miranda Nathan who states that Matty Whitlock is not a candidate for admission. Is Patient Less Than 18 Years of Age or have a Guardian/Healthcare Power of Glueline Worker?: No Disposition Date: 12/27/23 Disposition Time: 1200 SIGNATURE: CRISTIN Aguila PATIENT NAME: Matty Whitlock DATE: December 27, 2023 TIME: 12:16 PM [facility]09-01-2024 Miscellaneous Notes* Behavorial Health Intake - Celia Escamilla LSW - 12/27/2023 11:47 AM EDT BEHAVIORAL HEALTH INTAKE NOTE SERVICE DATE: 12/27/2023 SERVICE TIME: 1146 Nature of the crisis: Psychosis Presenting Problem: Matty Whitlock is a 33 year old male brought in to [facility] ED [facility] for anxiety, flight of ideas. Patient does [...] this worker thathe has been staying at [facility] [place] for the last 4 days and needed to get away from there. He stated that he has been homeless for awhile, and reports hearing and seeing volatile things around that area, but would not elaborate on this. When asked if he would like homeless residential resources for the area, he advised he has not been staying at homeless shelters outof spite and instead wanted to go to [place] shelters instead. Pt was asked about any family orsupport systems and he stated he has not been in contact with family for a long time. He reported no changes in eating, sleeping, or appetite. His goal for today was to rest a bit and [facility]. Suicidal Ideations/Homicidal Ideations/self-Harm Behaviors Pt [...] a provider at [facility], last known appt was over a yearago. 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 SOCIAL HISTORY: Social [...] a : No Stressors: Other: See Comment (Homelessness) Legal History: Arrests, Convictions, Probation Legal Details: 2011 - (M4) DISORDERLY CONDUCT; 2008 - (M1) DWI How Legal Issues Were Verified: [facility] [employer] Website, [facility], Other: See Comment ([facility]) Gender Specific Test: Not Applicable Sex [...] & Affect Patient Described Mood: tired Other Milk Driver Described Mood: reserved Milk Driver: CRISTIN Aguila Observed/Reported: Labile Range of Affect: [...] Continence: Continent MENTAL HEALTH SERVICES: Agency/Organization: [facility] Inpatient Mental Health Treatment History: Within Past [...] to rest a bit and go to [place] Coordination of Care with: ED RN, ED [...] physician: Yes Discussed case with Dr. Miranda Nathan who states that Matty Whitlock is not a candidate for admission. Is Patient Less Than 18 Years of Age or have a Guardian/Healthcare Power of Glueline Worker?: No Disposition Date: 12/27/23 Disposition Time: 1200 SIGNATURE: CRISTIN Aguila PATIENT NAME: Matty Whitlock DATE: December 27, 2023 TIME: 12:16 PM [facility] Note* Behavorial Health Intake - Genaro Harley LPCC - 09/14/2023 6:58 PM EDT BEHAVIORAL HEALTH INTAKE NOTE SERVICE DATE: 09/14/23 SERVICE TIME: 6:30pm Nature of the crisis: delusions Presenting Problem: Matty Whitlock is a 33 year old male brought in to [facility] ED [facility] for delusions. INTAKE ASSESSMENT: Pt was anxious [...] for amphetamines and marijuana. Pt is disheveled. MR ED Dr. Stevens: Matty Whitlock is a [...] 02/26/2009 KERRY How Legal Issues Were Verified: [facility] Sexual Offender Website, [facility] [employer] Website, Other: See Comment ([facility]) Gender Specific Test: Not Applicable Sex at Time of : Male Patient Identified Gender: Male Preferred Pronoun: He/Him/His Sexual Orientation: (did not answer) Cultural/Restorationism Concerns Cultural Issues or Concerns That Might Affect Treatment: none reported Restorationism/Spiritual Issues or Concerns That Might Affect Treatment: [...] Described Mood: i need some help Other Milk Driver Described Mood: labile, delusional Milk Driver: genaro harley [facility] Observed/Reported: Anxious, Irritable, Labile Range of [...] Current Mental Health Providers: stated someone in [place], unable to explain name, stated he does [...] Coordination of Care with: ED LIP, ED food order delivery runner/Impressions: Inpatient Need Plan: Await medical clearance, Secure [...] Kent NP Admission Status: Full Admit Unit: [facility] Bed#: 605 [id number] Admission Type: Medical Certificate Is Patient Less Than 18 Years of Age or have a Guardian/Healthcare Power of Glueline Worker?: No Disposition Date: 09/14/23 Disposition Time: 2113 SIGNATURE: AALIYAH Burris PATIENT NAME: Matty Whitlock DATE: September 14, 2023 TIME: 6:58 PM [facility]05-20-2024 Miscellaneous Notes* Behavorial Health Intake - Genaro Harley LPCC - 09/14/2023 6:58 PM EDT BEHAVIORAL HEALTH INTAKE NOTE SERVICE DATE: 09/14/23 SERVICE TIME: 6:30pm Nature of the crisis: delusions Presenting Problem: Matty Whitlock is a 33 year old male brought in to [facility] ED from [facility] for delusions. INTAKE ASSESSMENT: Pt was anxious [...] 02/26/2009 KERRY How Legal Issues Were Verified: [facility] Sexual Offender [facility], [facility] [employer] Website, Other: See Comment ([facility]) Gender Specific Test: Not Applicable Sex at Time of : Male Patient Identified Gender: Male Preferred Pronoun: He/Him/His Sexual Orientation: (did not answer) Cultural/Restorationism Concerns Cultural Issues or Concerns That Might Affect Treatment: none reported Restorationism/Spiritual Issues or Concerns That Might Affect Treatment: [...] Described Mood: i need some help Other Milk Driver Described Mood: labile, delusional Milk Driver: genaro harley [facility] Observed/Reported: Anxious, Irritable, Labile Range of [...] Current Mental Health Providers: stated someone in [place], unable to explain name, stated he does [...] from ED Coordination of Care with: ED ELAINA, ED food order delivery runner/Impressions: Inpatient Need Plan: Await medical clearance, Secure [...] Kent NP Admission Status: Full Admit Unit: [facility] Bed#: 605 B Admission Type: Medical Certificate Is Patient Less Than 18 Years of Age or have a Guardian/Healthcare Power of Glueline Worker?: No Disposition Date: 09/14/23 Disposition Time: 2113 SIGNATURE: AALIYAH Burris PATIENT NAME: Matty Whitlock DATE: September 14, 2023 TIME: 6:58 PM documented in [facility]Way[facility] Emergency department Note * Melissa Ross RN - 09/01/2023 6:50 AM EDT Patient given discharge instructions. Patient verbalized understanding and questions answered. Patient was A&O, ambulating with a steady gait, respirations easy and non labored, NAD, skin warm and dry Melissa Ross RN 09/01/23 0650 [id number] Emergency department Note* Melissa Ross RN - [...] 10:44 PM EDT Pt to ED via [facility] for complain of needing somewhere to go. Per pt he was told by police to sleep in the [facility] after being denied access to residential for unknown reason. Pt reports that he [...] button in reach. Ilsa West RN 08/31/23 6505 documented in this [facility]05-07-2024 Hospital Discharge instructions* Discharge Instructions* Ze Palmer Jr., - 09/01/2023 6:27 AM EDT Thank you for choosing [facility] Emergency Department and allowing me to take [...] treatment as deemed necessary documented in this [facility]05-07-2024 Emergency department Note* Cooper Juarez RN - 09/01/2023 1:37 AM EDT Patient resting comfortably in bed, no distress noted, respirations even and non-labored. Denies needs at this time. Cooper Juarez RN 09/01/23 0138 [id number] Emergency department Note* Ilsa West RN - 09/01/2023 12:56 AM EDT Pt ambulatory to and from without difficulty. Denies needs at this time. Ilsa West RN 09/01/23 0057 [id number] Emergency department Note* Ilsa West RN - 08/31/2023 10:44 PM EDT Pt to ED via [facility] for complain of needing somewhere to go. Per pt he was told by police to sleep in the [place] after being denied access to residential for unknown reason. Pt reports that he [...] button in reach. Ilsa West RN 08/31/23 6355 [id number] Emergency department Note* Pina Watkins RN - 08/11/2023 5:40 AM EDT pt is awake, ambulated to bathroom to urinate, pt requesting he have his vape back, pt told he cannot have his vape but can have a nicotine patch, medicated per order, given water and sandwich, takenoff monitor, secure saftety door put back into place Pina Watkins RN 08/11/23 0542 [facility] Work Phone: 1(727) 250-623504-16-2024 Emergency department Note* Pina Watkins RN - [...] medicated with ketamine per orders, placed on shelter monitor and cont pulse ox, O2 available at [...] per NORMA Engel orders Pina Watkins RN 08/11/239 * Pina Watkins RN [...] Admit Date/RoomTime: 08/10/2023 8:47 PM ED Room: [place] [address] History of Present Illness: Matty Whitlock is [...] Patient was initially seen by the physician administrative assistant. The patient was initially given some Ativan [...] compliance with prescribed medication. Contact the performing [facility] laboratory to add-on definitive confirmatory testing if [...] Color, Urine Light-Yellow Appearance, Urine Clear Specific Agenda, Urine 1.005 pH, Urine 6.0 Protein, Urine [...] Abnormality Status --------- ------ Urinalysis with Reflex C...[[id number]] Normal Final result Extra Urine Prado Tube[[id number]] Please view results for these tests on the individual orders. EXTRA URINE PRADO TUBE POCT GLUCOSE METER RADIOLOGY: Interpreted by Radiologist. XR hand right 3+ views Final Result No evidence of acute fracture or dislocation. No evidence of radiopaque foreign body. Signed by: Gerald Niño 08/11/2023 12:17 AM Dictation workstation: [id number] No results found for this or any [...] by me. Sinus tachycardia rate 113 bpm. [place] normal. IA 150 ms, QRS 92 ms, QT [address]-T change. No notes of acute ischemia. No STEMI. [EC] 0020 CBC and Auto Differential(!) White blood cell count 15.0, hemoglobin 15.3, Sebastian crit 46.5, platelet count 384,000, [EC] 0021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 Worker No July 01 12:17am Advance Directive Response Recorded Date/ Time Declaration for Mental Health Treatment No January 05, 2024 10:05pm Advance Directives No December 10:05pm Durable Power Of Glueline Worker No 2023 10:05pm Living Will No January 05, 2024 10:05pm Advance Directive Response Recorded Date/ Time Living Will No July 11, 2024 11:30am Power of Glueline Worker No July 11 11:30am Advance Directive Response Recorded Date/ Time Living Will No July 11, 2024 11:30am Do you have a Healthcare Power of Glueline Worker? No July 11, 2024 11:30am Living Will No August 12, 2024 5:47pm Do you have a Healthcare Power of Glueline Worker? No August 12, 2024 5:47pm Advance Directive Response Recorded Date/ Time Living Will No July 11, 2024 11:30am Do you have a Healthcare Power of Glueline Worker? No July 11, 2024 11:30am Do you have a Healthcare Power of Glueline Worker? No October 19, 2024 3:40pm Living Will No August 12, 2024 5:47pm Do you have a Healthcare Power of Glueline Worker? No August 12, 2024 5:47pm Advance Directive Response Recorded Date/ Time Living Will No July 11, 2024 11:30am Do you have a Healthcare Power of Glueline Worker? No July 11, 2024 11:30am Do you have a Healthcare Power of Glueline Worker? No October 20, 2024 9:55am Do you have a Healthcare Power of Glueline Worker? No October 19, 2024 3:40pm Living Will No August 12, 2024 5:47pm Do you have a Healthcare Power of Glueline Worker? No August 12, 2024 5:47pm Advance Directive Response Recorded Date/ Time Living Will No July 11, 2024 11:30am Do you have a Healthcare Power of Glueline Worker? No July 11, 2024 11:30am Do you have a Healthcare Power of Glueline Worker? No October 20, 2024 9:55am Do you have a Healthcare Power of Glueline Worker? No October 19, 2024 3:40pm Living Will No August 12, 2024 5:47pm Do you have a Healthcare Power of Glueline Worker? No August 12, 2024 5:47pm Do you have a Healthcare Power of Glueline Worker? No November 01, 2024 2:32pm Advance Directive Response Recorded Date/ Time Do you have a Healthcare Power of Glueline Worker? No October 20, 2024 9:55am Do you have a Healthcare Power of Glueline Worker? No October 19, 2024 3:40pm Living Will No August 12, 2024 5:47pm Do you have a Healthcare Power of Glueline Worker? No August 12, 2024 5:47pm Do you have a Healthcare Power of Glueline Worker? No November 01, 2024 2:32pm Advance Directive Response Recorded Date/ Time Do you have a Healthcare Power of Glueline Worker? No October 20, 2024 9:55am Do you have a Healthcare Power of Glueline Worker? No October 19, 2024 3:40pm Living Will No August 12, 2024 5:47pm Do you have a Healthcare Power of Glueline Worker? No August 12, 2024 5:47pm Do you have a Healthcare Power of Glueline Worker? No November 01, 2024 2:32pm Do you have a Healthcare Power of Glueline Worker? No November 12, 2024 9:50am Chief Complaint and Reason for Visit Chief [...] Abdominal pain November 09, 2024 3:36 pm Chief Complaint Admit Date anxiety, abd bloating August 12, 2024 3 :25pm ED follow up August 18, 2024 4:0 0pm INT ORDERS August 22, 2024 2:5 8pm anxiety October 19, 2024 12:1 6pm gastric pain, anxiety November 01, 2024 2:2 2pm Abdominal pain November 09, 2024 3:36 pm anxiety November 12, 2024 9:26 am Reason for Referral Specialty Diagnoses / Procedures Referred By Contac t Referred To Contact Laine Dye MD [address] [facility], [place] [address] Referral ID Status Reason Start Date Expiration Date V isits Requested Visits Authorized [id number] Pending Review 1 1 Specialty Diagnoses / Procedures Referred By Contac t Referred To Contact Ent - Otolaryngology Diagnoses Throat pain Procedures CONSULT TO ENT OFFICE/OUTPATIENT [facility] 60-74 MINUTES Sharon Evans, METAL CASTER.LINTER DRIER OPERATOR [address] [place] [address] Referral ID Status Reason Start Date Expiration Date Visits Requested Visits Authorized [id number] Pending Review PCP Requested Referral 06/27/2022 06/27/2023 1 1 Additional Source Comments (unrecognized sect ion and content) No Status Records FoundNo Status Records FoundNo Status Records FoundNo Status Records FoundNo Status Records FoundNo Status Records FoundNo Status Records FoundNo Status Records FoundNo Status Records FoundNo Status Records FoundNo Status Records Found INFORMATION SOURCE (unrecogn ized section and content) DATE CREATED AUTHOR 10/20/[address] [facility] DATE CREATED AUTHOR AUTHOR'S ORGANIZ ATION 10/20/2017 [facility] DATE CREATED AUTHOR AUTHOR'S ORGANIZ ATION 03/26/2021 [facility] ([place]) DATE CREATED AUTHOR AUTHOR'S ORGANIZ ATION 08/12/2023 [facility] DATE CREATED AUTHOR AUTHOR'S ORGANIZ ATION 08/17/2023 [facility] DATE CREATED AUTHOR AUTHOR'S ORGANIZ ATION 09/02/2023 [facility] DATE CREATED AUTHOR AUTHOR'S ORGANIZ ATION 12/28/2023 [facility] nt DATE CREATED AUTHOR AUTHOR'S ORGANIZ ATION 01/07/2024 [facility] DATE CREATED AUTHOR AUTHOR'S ORGANIZ ATION 02/08/2024 [facility] DATE CREATED AUTHOR AUTHOR'S ORGANIZ ATION 11/10/2024 [facility] DATE CREATED AUTHOR AUTHOR'S ORGANIZ ATION 11/11/2024 [facility] Goals (unrecognized section and content) Goals [...] Dr. Stu Loving MD Emergency Provider Active Mini Bar Attendant Relationship Specialty Start Date End Date Laine Dye [address] [place] [address] PCP - General Family Medicine 04/01/21 Rupa Sandoval [address] [place] [address] [place] [address] Psychiatry 02/27/17 Mini Bar Attendant Relationship Specialty Start Date End Date Laine Dye [address] [place], [place] [id number] PCP - General Family Medicine 04/01/21 Rupa Sandoval [address] [place] [address] [place] [phone] Psychiatry 02/27/17 Mini Bar Attendant Relationship Specialty Start Date End Date Laine Dye MD [address] [place], [place] [id number] PCP - General 02/04/21 Team Status: Inactive [...] Dr. Hieu Man MD Emergency Provider Active Mini Bar Attendant Relationship Specialty Start Date End Date Laine Dye MD [address] [place] [id number] PCP - General 02/04/21 Mini Bar Attendant Relationship Specialty Start Date End Date Laine Dye [address] [place] [address] [place], [place] [id number] PCP - General Family Medicine 04/01/21 Rupa Sandoval [address] [place] [address] [place] [phone] Psychiatry 02/27/17 Team Status: Active Member Role Status Dates Sylvester Ramirez Emergency Provider Active Start : November 30, 2023 Unlisted provider (Unknown) Primary Care Provider Acti ve Start: November 30, 2023 Mini Bar Attendant Relationship Specialty Start Date End Date Laine Dye [address] [place] [address] PCP - General Family Medicine 04/01/21 Rupa Sandoval [address] [place] [address] [place] [phone] Psychiatry 02/27/17 Team Status: Active Member Role Status Dates Sylvester Ramirez Emergency Provider Active Start : November 30, 2023 Unlisted provider (Unknown) Primary Care Provider Acti ve Start: November 30, 2023 Omkar Del Cid Emergency Provider Active Sta rt: January 05, 2024 IMTIAZ WHITLOCK Emergency Contact #1 Active ABIOLA WHITLOCK Emergency Contact #2 Active Mini Bar Attendant Relationship Specialty Start Date End Date Donald Lantigua MD [address] [place] [address] PCP - General Family Medicine 11/07/19 03/31/21 Rupa Sandoval [address] [place] [address] [place] [phone] Psychiatry 02/27/17 Mini Bar Attendant Relationship Specialty Start Date End Date Laine Dye MD [address] [place] [address] PCP - General 02/04/21 Mini Bar Attendant Relationship Specialty Start Date End Date Laine Dye MD [address] [place] [address] PCP - General 02/04/21 Mini Bar Attendant Relationship Specialty Start Date End Date Laine Dye MD [address] [place] [address] PCP General 02/04/21 Mini Bar Attendant Relationship Specialty Start Date End Date Laine Dye MD [address] [place] [address] PCP General 02/04/21 Team Status: Active Member Role Status Dates Dr. Laine Dye MD Primary Care Provider Active Team Status: Inactive Member Role Status Dates Dr. Laine Dye MD Primary Care Provider Active Start: July 11, 2024 End: July 11, 2024 Dr. Gricel Talley , Emergency Provider Active Start: July 11, 2024 End: July 11, 2024 Mini Bar Attendant Relationship Specialty Start Date End Date Laine Dye MD [address] [place] [address] [facility] 02/04/21 Team Status: Inactive Member Role Status Dates Dr. Laine Dye MD Primary Care Provider Active Start: July 11, 2024 End: July 11, 2024 Dr. Gricel Talley , Attending Provider Active Start: July 11, 2024 [...] End: October 19, 2024 Dr. Lester Aguilar , Emergency Provider Active Start: October 19, 2024 End: October 19, 2024 Team Status: Inactive Member Role/Relationship Status Dates Dr. Laine Dye MD Primary Care Provider Active Start: November 01, 2024 End: November 01, 2024 Dr. Aidan Hickey DO Emergency Provider Activ e Start: November 01, 2024 End: November 01, 2024 Mini Bar Attendant Relationship Specialty Start Date End Date Laine Dye [address] [place] [id number] PCP - General Family Medicine 04/01/21 Rupa Sandoval [address] [place] [address] [place] [id number] Psychiatry 02/27/17 Mini Bar Attendant Relationship Specialty Start Date End Date Laine Dye MD [address] [place] [id number] PCP - General 02/04/21 Team Status: Inactive Member Role/Relationship Status Dates Dr. Laine Dye MD Primary Care Provider Active Start: August 12, 2024 End: August 12, 2024 Dr. Aidan Hickey , DO Attending Provider Activ e Start: August 12, 2024 End: August 12, 2024 Dr. Aidan Hickey , DO Emergency Provider Activ e Start: August 12, 2024 End: August 12, 2024 Team Status: Inactive Member Role/Relationship Status Dates Dr. Lanie Dye MD Primary Care Provider Active Start: [...] November 09, 2024 End: November 09, 2024 Team Status: Inactive Member Role/Relationship Status Dates Dr. Laine Dye MD Primary Care Provider Active Start: November 12, 2024 End: November 12, 2024 Dr. Blayne Canas DO Emergency Provider Active Start : November 12, 2024 End: November 12, 2024 Source Comments (unrecognize d section and content) In the event this informatio n is protected by the Federal Confidentiality of Alcohol and Drug Abuse Patient Records regulations: The Federal rules restrict any use of the information to criminally investigate or prosecute any alcohol or drug abuse patient.[facility] the event this information is protected by the Federal Confidentiality of Alcohol and Drug Abuse Patient Records regulations: The Federal rules restrict any use of the information to criminally investigate or prosecute any alcohol or drug abuse patient.[facility] the event this information is protected by the Federal Confidentiality of Alcohol and Drug Abuse Patient Records regulations: The Federal rules restrict any use of the information to criminally investigate or prosecute any alcohol or drug abuse patient.[facility] the event this information is protected by the Federal Confidentiality of Alcohol and Drug Abuse Patient Records regulations: The Federal rules restrict any use of the information to criminally investigate or prosecute any alcohol or drug abuse patient.[facility] the event this information is protected by the Federal Confidentiality of Alcohol and Drug Abuse Patient Records regulations: The Federal rules restrict any use of the information to criminally investigate or prosecute any alcohol or drug abuse patient.[facility] the event this information is protected by the Federal Confidentiality of Alcohol and Drug Abuse Patient Records regulations: The Federal rules restrict any use of the information to criminally investigate or prosecute any alcohol or drug abuse patient.[facility] the event this information is protected by the Federal Confidentiality of Alcohol and Drug Abuse Patient Records regulations: The Federal rules restrict any use of the information to criminally investigate or prosecute any alcohol or drug abuse patient.[facility] Reason for Visit (unrecogniz ed section [...] large muscle mass. If ordered IV or IA, must dilute 1:1 prior to administration. 2247 (Given - Provider: Pina Watkins RN) LORazepam (Ativan) injection 2 mg (COMPLETED) 2 mg, intramuscular, Administer over 5 Minutes, Once, On Thu08/10/23 at 2155, For 1 dose 0 (Given - Provider: Pina Watkins RN) nicotine (Nicoderm CQ) 21 mg/24 hr patch 1 patch 1 patch, transdermal, Administer over 24 Hours, Daily, First dose on Thu08/11/23 at 0900 0540 (Medication Juan Diego lied - Provider: Pina Watkins RN) Continuous Medication Order 08/09/2023 08/10/2023 08/11/2023 oxygen (O2) therapy inhalation, Continuous, Starting on 08/10/23 at 2240, Apply when safe., Device: Nasal [...] BE BASED ON THE PRIMARY CLINICAL RECORDS. [employer] provides no warranty or guarantee of the accuracy or completeness of information in this document.
== END 2024-11-14 06:47 | disposition home or self-care (01) ==
LOC: ED 06:47
PROVIDERS: Emergency Provider Emergency Medicine; PCP Family Medicine; Visit Provider Emergency Medicine
DX: F41.8 Other specified anxiety disorders (principal); F25.0 Schizoaffective disorder, bipolar type; K21.00 Gastro-esophageal reflux disease with esophagitis, without bleeding; K25.9 Gastric ulcer, unspecified as acute or chronic, without hemorrhage or perforation; F17.210 Nicotine dependence, cigarettes, uncomplicated; Z79.899 Other long term (current) drug therapy
CPT/HCPCS: 99285

== ENCOUNTER 2024-11-15 12:30 | Emergency (ER) | payer MEDICAID, SELFPAY ==
[2024-11-15 12:31] VITALS: BP 135/90; PULSE 84; RESP 16; TEMP 36.4; O2SAT 99; BMI 29.4
[2024-11-15] MEDS: Famotidine 200 MG/20 ML MDV 20 MG in 0.9% Normal Saline (Pres. free 8 ML 300 MG IV (13:04)
[2024-11-15] MEDS: Lidocaine 2% Viscous15 ML UDC 15 ML PO (13:04)
[2024-11-15] MEDS: Lorazepam 2 MG/ML WCH Syringe 0.5 MG IV ×2 (13:06→16:24)
[2024-11-15 13:31] VITALS: BP 108/65
[2024-11-15 14:00] VITALS: BP 108/65; PULSE 88
--- NOTE | 2024-11-15 14:09 | EX.ED.DYSGE1 ---
HPI History of Present Illness Chief Complaint: Anxiety Detail of Chief Complaint: Anxiety and epigastric pain Narrative Narrative: Patient had EGD performed by Dr. Herndon. Patient was noted to have a LA grade a (1 or more mucosal breaks less than 5 mm, not extending between tops of 2 mucosal folds) esophagitis with no bleeding found at 37 to 40 cm from the incisors. Biopsies were taken. Furthermore, abnormal motility was noted in the esophagus. The cricopharyngeus was abnormal as well. Extra peristaltic waves in the esophageal body was noted. The distal esophagus/lower esophageal sphincter was noted to be spasm myotic. There was a suspicion for gastroparesis as well. There was also a nonbleeding linear gastric ulcer with pigmented material found in the gastric antrum. The lesion was 8 mm in the largest dimension. Biopsy was taken. There was also evidence of patchy mildly erythematous mucosa without active bleeding found in the entire duodenum. This was performed October 21. Patient was on Nexium and Carafate was added. Patient presents from work because of pain that he states is unbearable. And he is also anxious about his health and embarrassed that he had to leave work. Patient does have an anxiety disorder. Patient is seen through the crisis center. He states he is compliant with his medication. He was given an injection of medicine yesterday. He was told that it would take 412 hours for the medicine to take effect. Patient denies fever, chills or night sweats. Patient denies chest pressure, tightness or heaviness. Patient denies shortness of breath. Patient denies discomfort in his extremities, neck or back. Patient denies black or maroon-colored stool. Patient denies vomiting. Prior similar symptoms: Yes Recent Illness/[facility]: [facility] Medical History Dietary restriction Esophageal tear Smoker Chest pain Asthma Depression Anxiety Wears glasses Marijuana use Restless legs History of gastritis Former smoker History of pain when walking History of edema Hx of fracture of tibia Asthma History of GERD History of substance abuse Depression SOB (shortness of breath) Schizoaffective disorder, bipolar type History of alcohol abuse Bipolar 1 disorder Anxiety Home Medications Medication Instructions Recorded Last Taken Type buspirone 10 mg tablet 10 mg PO TID 07/11/24 10/21/24 History prazosin 1 mg capsule 1 mg PO QHS 07/11/24 10/20/24 History albuterol sulfate 90 mcg/actuation 2 inh inhalation Q6H PRN shortness 10/19/24 10/21/24 Rx breath activated powder inhaler of breath or wheezing #1 ea (ProAir RespiClick) benztropine 1 mg tablet 1 mg PO DAILY 10/19/24 10/21/24 History clonidine HCl 0.2 mg tablet 0.2 mg PO TID 10/19/24 10/21/24 History hydroxyzine HCl 50 mg tablet 50 mg PO DAILY PRN sleep 10/19/24 10/21/24 History famotidine 40 mg tablet 40 mg PO QHS PRN GERD 10/20/24 Unknown History paliperidone palmitate 156 mg/mL 156 mg IM Q30D 10/20/24 Unknown History intramuscular syringe (Invega Sustenna) dicyclomine 20 mg tablet 20 mg PO BID PRN abdominal pain 11/04/24 Unknown Rx #30 tabs esomeprazole magnesium 40 mg 40 mg PO BID #60 caps 11/04/24 Unknown Rx capsule,delayed release sucralfate 100 mg/mL oral 10 ml PO BID #300 mL 11/09/24 Unknown Rx suspension (Carafate) Allergy/AdvReac Type Severity Reaction Status Date / Time ondansetron (From Zofran) AdvReac Other Verified 11/15/24 12:33 Surgical History History of surgery on lower extremity History of esophagogastroduodenoscopy (EGD) Social History Smoking Status: Current every day smoker tobacco type: cigarettes alcohol intake: former substance use type: does not use and other details: Former use of Marijuana ROS ROS ED Constitutional Constitutional ED: Denies chills, fever(s), subjective, sweats or weight loss Cardiovascular Cardiovascular: Denies chest pain, orthopnea, palpitations, paroxysmal nocturnal dyspnea or racing heartbeat Respiratory/Chest Respiratory/Chest: Denies cough, dyspnea, dyspnea on exertion, orthopnea or paroxysmal nocturnal dyspnea Gastrointestinal Gastrointestinal: Reports abdominal pain and nausea; Denies constipation, diarrhea, melena or vomiting Genitourinary Genitourinary ED: Denies dysuria, hematuria or urinary frequency Musculoskeletal Musculoskeletal: Denies arthralgias, back pain or myalgias Integumentary Denies rash Psychiatric Psychiatric: Reports anxiety; Denies suicidal ideation or suicidal thoughts Hematologic/Lymphatic Hematologic/Lymphatic: Reports systems reviewed and no addt'l complaints, except as documented EXAM Physical Exam Const Vital Signs: 11/15/24 12:31 11/15/24 13:31 11/15/24 14:00 Temperature 97.6 F L Temperature Source Oral Pulse Rate 84 88 Respiratory Rate 16 Blood Pressure 135/90 H 108/65 108/65 Blood Pressure Mean 105 79 79 Pulse Ox 99 Oxygen Delivery Method Room Air Positive well nourished and well developed Constitutional Narrative: Patient was talking to his father when I entered the room. He was crying with tears rolling down his cheeks. He then began to sob when he disconnected his call to speak with me. Patient is on his right side in a semifetal position. General Appearance ED: well developed; Negative for pallor HEENT Reports moist mucous membranes HEENT Narrative: Head is atraumatic and normocephalic. Ears are normal Eyes PERRL and EOMs intact bilaterally General Eye ED: Negative for pale conjunctiva or scleral icterus Neck no lymphadenopathy, supple and no JVD Chest Wall inspection of chest normal and palpation of chest normal Resp normal respiratory effort and clear to auscultation bilaterally Cardio regular rate, regular rhythm, S1 normal heart sound, S2 normal heart sound and no murmurs GI normal to inspection, nondistended, normoactive bowel sounds, non-distended and no masses; Negative for non-tender or hepatosplenomegaly Palpation: tender epigastric Back/Spine no CVA tenderness Extremity normal to inspection General Extremety ED: Negative for edema or tenderness General Extremity: Negative for edema Neuro oriented x3 and CN's II-XII intact bilaterally Sensorium / Orientation: alert Psych Mood & Affect: depressed, anxious and tearful Skin no rashes or lesions noted, no wounds and skin turgor normal General Skin Exam: Negative for jaundice or pallor MDM MDM MDM Narrative Medical decision making narrative: In light of his recent EGD his complaints he received 0.5 mg of Ativan IV push and GI cocktail and IV Pepcid. His abdominal discomfort improved. He states his anxiety has not. Case management was consulted and states he has multiple visits for similar presentation. Management Discussion w/another healthcare provider: vault worker/Case management (Pearl from case management spoke with patient, mother and kitchen supervisor. Arrangements made for intensive outpatient therapy.) Treatment and Re-Evaluation :: Patient is here additional dose of Ativan. Pearl from case management saw patient. He is aware that he needs to attend the outpatient intensive psycho therapy. If he is noncompliant he will be pink slipped. He is understands this. Discharge Plan Triage Chief Complaint: Anxiety ED Provider: Evin Meraz Dx/Rx/DC Orders Clinical Impression: Anxiety reaction, History of bipolar disorder, Schizoaffective disorder, bipolar type, Peptic ulcer disease Instructions: ED Anxiety Reaction Prescriptions: No Action sucralfate [Carafate] 100 mg/mL suspension 10 ml PO BID Qty: 300 3RF prazosin 1 mg capsule 1 mg PO QHS buspirone 10 mg tablet 10 mg PO TID Invega Sustenna 156 mg/mL syringe 156 mg IM Q30D famotidine 40 mg tablet 40 mg PO QHS PRN (Reason: GERD) ProAir RespiClick 90 mcg/actuation aerosol powdr breath activated 2 inh inhalation Q6H PRN (Reason: shortness of breath or wheezing) Qty: 1 0RF hydroxyzine HCl 50 mg tablet 50 mg PO DAILY PRN (Reason: sleep) clonidine HCl 0.2 mg tablet 0.2 mg PO TID benztropine 1 mg tablet 1 mg PO DAILY dicyclomine 20 mg tablet 20 mg PO BID PRN (Reason: abdominal pain) Qty: 30 0RF esomeprazole magnesium 40 mg capsule,delayed release(DR/EC) 40 mg PO BID Qty: 60 3RF Primary Care Provider: Waylon Dye Referrals: Waylon Dye MD [Primary Care Provider] - As Needed Activity Restrictions/Additional Instructions: You must attend the outpatient intensive psychotherapy program that starts tomorrow. Otherwise you will be pink slipped. Print Language: Yemeni Disposition Disposition: Home, Self Care
[2024-11-15 15:00] VITALS: PULSE 98; RESP 22
[2024-11-15 16:00] VITALS: PULSE 94; RESP 24; O2SAT 98
[2024-11-15 16:28] VITALS: BP 108/65; PULSE 94; RESP 24; TEMP 36.4; O2SAT 98
--- NOTE | 2024-11-15 16:40 | CM.ED ---
Social Work Psychiatric Assessment Reason for consult: Mental health Informant(s): Patient, patients mother, Crisis/ TCC Chief Complaint: Patient presents to the ED due to increased anxiety. Patient was restless, unable to sit still. When SW met with patient, patient was in a half position, could not stop moving legs, or was pacing the room, and was tearful. Patient reports to an increase in anxiety and depression, stating both are a 10 out of 10. Patient receives services through [facility], was given his Invega injection yesterday. Patient reports to an inability to stay at work due to his symptoms, states he often has to leave because his anxiety is too high. Patient also reports to an decrease in sleep and appetite. Patient reports to crying all the time and feels that he cannot get his symptoms under control. Patient denies suicidal or homicidal ideations, denies auditory or visual hallucinations, did not express any delusional thoughts. Marital/Social History: single Living Situation: Patient is living on his own in an apartment Support/Resources: Mom History: None Education and Employment History: Patient has been working at [employer] for 4-6 months Mental Health Treatment/History: Patient reports to several inpatient psychiatric hospitalizations including stays at [facility] and [facility]. Patient is current being seen through [facility] and utilizes the Crisis Hotline numerous times a day. Patient reports to being off all PO meds and is receiving Ingega IM, last injection was 11/14/24. Triggers/Stressors to mental health: Patient reports that his physical health is making his mental health deteriorate, complaints of GI concerns and pain. Coping Skills: patient is unable to utilize coping skills at this time. History of Abuse (physical/sexual/verbal/emotional): Substance Abuse Current/Historical: denies Risk to Self/Others: · Suicidal (thought/plan/intent/attempt): made comments to mom yesterday re wanting to kill self, states today he was upset and denies any suicidal ideations, intent or plan. Patient denies any past suicide attempts or interrupted attempts. · Access to Lethal Means: n/a · Homicidal (thought/plan/intent/attempt): denies · History of Violence (self/others/objects): Mental Status Exam: Orientation: patient is alert an oriented x 3 Memory: intact Appearance/General Behavior: clean, agitated Mood/Affect: depressed, anxious Communication Pattern: responds to questions, pressured speech Thought Process: anxious General Intellectual Functioning: average Judgment: poor Insight: poor Plan: Patient denies SI or HI, denies auditory and visual hallucinations, denies delusions. Patient agreeable to PHP, physician consulted and in agreement with same. Patient scheduled for intake assessment November 16 at 2:00pm. SHAHZAD Wills, RECEPTION INTERVIEWER
--- OUTSIDE RECORDS SUMMARY | 2024-11-15 20:46 | XMS RPT_ITS | CCD ---
Author Organization [facility] Care Team Providers Care Beam Dyer Operator Name Role Phone BARBARA ASHLEY Unavailable Unavailable [...] Unavailabl e Laine Dye Primary Care Provider [phone] Sylvester Ramirez Emergency Provider provider (Unknown), Unlisted [...] Lantigua MD, Donald Lopez Primary Care Provider [phone] Hardik STEWART, Dr. Connors Primary Care Provider [phone] Gerri DELGADILLO, Dr. Monsalve Emergency Provider Gerri DELGADILLO, Dr. Monsalve Attending Provider Edelmira DELGADILLO, Dr. Bermudez Emergency Provider Edelmira DELGADILLO, Dr. Bermudez Attending Provider Hardik STEWART, Dr. Connors Referring Provider Yoselyn Zhu Attending Provider Yoselyn Zhu Referring Provider Lauren DELGADILLO, Dr. Batista Emergency Provider Katrina DELGADILLO, Dr. Mares Attending Provider Katrina DELGADILLO, Dr. Mares Other Provider [phone] Lauren DELGADILLO, Dr. Batista Attending Provider Hardik STEWART, Dr. Connors Primary Care Provider Dr. Blayne Canas DO Emergency Provider Donovan STEWART, Dr. Hagen Emergency Provider Hardik, Laine Referring Unavailable Hardik, Laine Primary Care Unavailable Yoselyn Ceja Attending Unavailable Hieu Man Attending Unavailable Hardik, Laine Primary Care Unavailable Blayne Canas Attending Unavailable Hardik, Laine Primary Care Unavailable Hardik, Laine Primary Care Unavailable Aidan Hickey Attending UnavailLester Mcconnell Attending Unavailable Hardik, Laine Primary Care Unavailable Hardik, Laine Referring Unavailable Hardik, Laine Primary Care Unavailable Vishnu Herndon Attending Unavailable Hardik, Laine Primary Care Unavailable Aidan Hickey Attending Unavailkarin e Hardik, Laine Primary Care Unavailable Yoselyn Ceja Attending Unavailable Yoselyn Ceja Referring Unavailable Hardik, Laine Referring Unavailable Yoselyn Ceja Attending Unavailable Laine Dye Primary Care Unavailable Laine Dye Referring Unavailable Laine Dye Primary Care Unavailable Friend, Vishnu Consulting Unavailable Friend, Vishnu Attending Unavailable Laine Dye Primary Care Unavailable Ungnikhil, Remus Attending Unavailable Brendan, Remus Referring Unavailable Gricel Talley Attending Unavailable Laine Dye Primary Care Unavailable Kt STEWART, Dr. Cleary Emergency Provider Allergies Allergy Classification Reported Allergen(s) Allergy Type Date of Onset Reaction(s) Facility (3 sources) Cat Allergy to substance [facility] (20 sources) Ondansetron Drug Allergy 09-01-2021 Other [facility] Comment on above: headaches (4 sources) Cat Hair Extract Drug Allergy 11-11-2022 [facility] (5 sources) Cat Dander Allergy to substance 11-11-2022 [facility] [employer] (1 source) Ondansetron Drug Allergy 11-14-2024 [facility] Repository Medications Current Medications Medication Drug [...] Active benztropine mesylate 1 mg oral tablet (7 sources) Anticholinergic, Antihistamine Start: 025 take 1 [...] day dicyclomine hydrochloride 20 mg oral tablet (11 sources) Anticholinergic Start: 10-18-19 End: 11-05-19 take [...] release(DR/EC) Discontinued 40 mg PO DAILY 30 July 11, 2024 12:00am August 18, 2024 4:09pm Start: 09-23-2022 End: 08-18-2024 take 1 capsule by mouth twice daily Esomeprazole Magnesium 20 mg capsule,delayed release(DR/EC) Discontinued 20 mg PO TWICE A DAY July 11, 2024 12:00am August 18, 2024 4:09pm Start: 05-02-2022 take 1 capsule by [facility] twice daily esomeprazole (NexIUM) [address] [...] Start: 03-25-2021 take 1 capsule by mo [facility] every twenty-four hours as needed hydrOXYzine pamoate [...] gum until the nicotine taste appears, then "park" the gum against the buccal mucosa until [...] Active oxygen (O2) therapy (1 source) Start: 024 inhalation, Continuous, Starting on Thu08/10/23 at 2240, Apply when safe., Device: Nasal Cannula, Rate in liters per minute: 2 LPM, Keep O2 Sat Above: 92% 1 ml paliperidone palmitate 156 mg/ml prefilled syringe (20 sources) Atypical Antipsychotic Start: 025 inject 156 [...] 2024 11:00am prazosin 1 mg oral capsule (9 sources) alpha-Adrenergic Kaz Start: 07-11-2024 take 1 [...] INHALATION TWICE A DAY February 29, 2020 1:00March 01, 2020 10:54am administer with spacer, rinse [...] INHALATION TWICE A DAY February 29, 2020 1:00March 01, 2020 10:54am administer with spacer, rinse [...] A DAY cephalexin 500 mg oral capsule (12 sources) Cephalosporin Antibacterial Start: 09-18-19 End: 07-02-19 [...] 1:33pm doxycycline hyclate 100 mg oral capsule (17 sources) Tetracycline-class Drug Start: 01-22-2022 End: 07-02-2023 [...] 2019 11:24am haloperidol 5 mg oral tablet (13 sources) Typical Antipsychotic Start: 02-05-2024 End: 10-20-2024 [...] large muscle mass. If ordered IV or ME, must dilute 1:1 prior to administration. LORazepam [...] Status: Ordered melatonin 10 mg oral capsule (18 sources) Start: 07-11-2024 End: 10-19-2024 take 1 [...] 2024 12:00am July 11, 2024 11:00am nystatin [id number] unt/ml oral suspension (20 sources) Polyene Antifungal [...] a day. Start: 01-27-2022 nystatin (Myco statin) [id number] UNIT/ML suspension Use 500,000 Units in the [...] before meal. 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, in remission] 04-29-2021 Chronic Comment on above: SOBER 3 YRS AGO SOBER SINCE 12/2023 Alcohol-related disorders (3 sources) Alcohol intoxication delirium ; Translations: [Alcohol use, unspecified with intoxication delirium] Onset: 08-10-2023 08-11-2023 Episodic Allergic reactions (16 sources) Allergic condition; Translations: [Allergy, unspecified, initial [...] 01-30-2020 05-17-2021 Chronic Fluid and electrolyte disorders (5 sources) Hyponatremia; Translations: [Hypo-osmolality and hyponatremia] 11-01-2024 Episodic Gastritis and duodenitis (20 sources) Gastritis; Translations: [Gastritis, unspecified, without bleeding] Onset: 03-22-2021 Episodic Gastroduodenal ulcer (except hemorrhage) (10 sources) Gastric ulcer; Translations: [Gastric ulcer, unspecified as acute or chronic, without hemorrhage or perforation] Onset: 11-09-2024 11-09-2024 Chronic Gastroduodenal ulcer (except hemorrhage) (3 sources) H/O: gastric ulcer; Translations: [Personal history of peptic ulcer disease] 11-12-2024 Episodic Gastrointestinal hemorrhage (10 sources) Rectal hemorrhage; Translations: [Hemorrhage of anus and rectum] Onset: 07-20-2024 07-11-2024 Episodic Headache; including migraine (2 sources) Headache; Translations: [Nonintractable headache, unspecified chronicity pattern, unspecified headache type] 09-01-2023 Episodic Impulse control disorders, NEC (1 source) Homicidal ideations; Translations: [Homicidal ideations] Onset: 01-05-2024 Episodic Malaise and fatigue (1 source) Other fatigue; Translations: [Other fatigue] Onset: 09-01-2023 Episodic Miscellaneous mental health disorders (2 sources) Anxiety about body function or health; Translations: [Other symptoms and signs involving emotional state] 11-14-2024 Episodic Mood disorders (20 sources) Bipolar disorder, unspecified; Translations: [Bipolar disorder, current episode manic without psychotic features, unspecified] Onset: 12-04-2015 03-16-2020 Chronic Mycoses (14 sources) Candidiasis of mouth; Translations: [Candidal stomatitis] 06-18-2022 Episodic Nausea and vomiting (15 sources) Vomiting; Translations: [Vomiting, unspecified] 09-14-2021 Episodic Nonspecific chest pain (16 sources) Chest pain; Translations: [Chest pain, unspecified] [...] unspecified] Onset: 08-25-2024 Chronic Other gastrointestinal disorders (16 sources) Constipation; Translations: [Constipation, unspecified] 05-02-2020 Episodic Other gastrointestinal disorders (1 source) Diarrhea; Translations: [Diarrhea, unspecified] Episodic Other hereditary and degenerative nervous system conditions (12 sources) Restless legs; Translations: [Restless legs syndrome] Onset: 04-17-2021 02-09-2022 Chronic Other injuries and conditions due to external causes (16 sources) Injury of finger; Translations: [Unspecified injury of unspecified wrist, hand and finger(s), initial encounter] 09-02-2019 Episodic Other lower respiratory disease (20 sources) Dyspnea; Translations: [Shortness of breath] 09-17-2019 Episodic Other lower respiratory disease (1 source) Shortness of breath; Translations: [Shortness of breath] Onset: 10-24-2024 Episodic Other male genital disorders (12 sources) Prolonged erection of penis; 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, unspecified] 01-04-2023 Chronic Other nervous system disorders (12 sources) Neuropathy; Translations: [Polyneuropathy, unspecified] Onset: 04-17-2021 02-09-2022 Chronic Other upper respiratory disease (16 sources) Acute bronchospasm; Translations: [Acute bronchospasm] 05-30-2019 Episodic Other upper respiratory disease (1 source) Pain in throat; Translations: [Pain in throat] Episodic Other upper respiratory infections (13 sources) Viral upper respiratory tract infection; Translations: [...] of mental health and substance abuse codes (4 sources) Personal history of other mental and behavioral disorders; Translations: [H/O: manic depressive disorder] Onset: 12-26-2023 11-12-2024 Episodic Substance-related disorders (20 sources) History of substance abuse; Translations: [Other psychoactive substance abuse, in remission] Onset: 11-30-2023 03-16-2020 Chronic Superficial injury; contusion (12 sources) Foreign body of foot; Translations: [Superficial foreign body, right foot, initial encounter] 10-08-2022 Episodic Unclassified (1 source) RM22 Onset: 01-04-2023 Unclassified (2 sources) today for Invega injection as able Past or Other Problems Problem Classification Problem Date Documented Da te Episodic/Chronic Esophageal disorders (17 sources) Esophageal disorders; Translations: [Gastro-esophageal reflux disease [...] Test Name Value Interpretation Reference Range Facility Emergency Department Summary on 11-14-2024 Emergency Department Summary [facility] Medical Records Department [address] [place] [address] Emergency Department Summary 11/14/24 MR#: [id number] Acct: [id number] Name: MATTY WHITLOCK Rep #: [id number] : 1990 34 From: Hieu Man MD PCP: Dr. Laine Dye MD Status:PRE ER Location: ED HPI HPI - Psych History of Present Illness Chief Complaint: Anxiety Informant: patient and EMS Narrative Narrative: 34-year-old male presents via EMS for anxiety about his esophagitis and gastric ulcer discomfort that he has had for over a month, he has been on treatment for it since it was diagnosed by EGD about 2 weeks ago including Nexium and Carafate, he states the pain has been flaring up at times, tonight he took famotidine for it and his discomfort is basically gone and he is asking for something for anxiety. He states Ativan helps when he is given that. [facility] Medical History Dietary restriction Esophageal [...] mg PO QHS 07/11/24 10/20/24 Hist ory albuterol sulfate 90 mcg/actuation 2 inh inhalation [...] Unknown Hi story intramuscular syringe (Invega Sustenna) dicyclomine 20 mg tablet 20 mg PO BID PRN abdominal pain Unknown Rx #30 tabs esomeprazole magnesium 40 mg 40 mg PO BID #60 caps 11/04/24 Unk nown Rx capsule,delayed release sucralfate 100 mg/mL oral 10 ml PO BID #300 mL 11/09/24 Unkn own Rx suspension (Carafate) Allergy/AdvReac Type Severity Reaction Status Date / Time ondansetron (From Zofran) AdvReac Other Verified 11/14/24 06:22 Surgical History History of surgery on lower [...] Respiratory/Chest: Denies cough or dyspnea Gastrointestinal Gastrointestinal: Reports abdominal pain; Denies diarrhea, nausea or vomiting Genitourinary Genitourinary ED: Denies dysuria or hematuria Musculoskeletal Musculoskeletal: Denies back pain or neck pain Integumentary Denies abscess or rash Neurologic Neurologic: Denies headache(s), paresthesias or weakness Psychiatric Psychiatric: Reports anxiety; Denies suicidal thoughts EXAM Physical Exam Const Vital Signs: 11/14/24 06:23 11/14/24 06:34 Temperature 98.5 F Temperature Source Oral Pulse Rate 83 Respiratory Rate 18 Respiratory Effort Normal Non-Labored Respiratory Pattern Normal Blood Pressure 119/74 Blood Pressure Mean 89 Pulse Ox 99 Oxygen Delivery Method Room Air Positive well nourished and well developed General Appearance ED: well developed and NAD Eyes PERRL and EOMs intact bilaterally Neck full ROM and supple Resp normal respiratory effort GI non-distended Extremity normal to inspection General Extremety ED: Negative for edema General Extremity: Negative for edema Neuro oriented x3, CN's II-XII intact bilaterally and no sensory deficits noted Sensorium / Orientation: awake and alert Motor Exam: strength 5/5 throughout Psych Appearance: grossly normal Activity / Motor Behavior: appropriate eye contact and psychomotor agitation Thought Content: normal thought content Attention / Concentration: attention jess (more content not included)... Normal [facility] Emergency Department Summary on 11-12-2024 Emergency Department Summary [facility] Medical Records Department [address] [place] [address] Emergency Department Summary 11/12/24 MR#: [id number] Acct: [id number] Name: MATTY WHITLOCK Rep #: [id number] : 1990 34 From: Blayne Madsen PCP: Dr. Laine Dye MD Status:DEP ER Location: ED HPI HPI - Psych History of Present Illness Chief Complaint: Anxiety Informant: patient Narrative Narrative: Reports increasing anxiety over the last 3 months worsening today. He is diagnosed with ulcers for describes esophagus and possible duodenum 3 weeks ago from upper endoscopy by Dr. Herndon. He is on medications and taking it. No black or bloody stools. He is followed by counseling center on hydroxyzine as needed he gets Invega injections monthly he states he missed his injection 5 days ago. Took his hydroxyzine this morning however still feeling anxious. Denies suicidal homicidal ideations. Denies auditory or visual hallucinations. Denies tobacco or alcohol use. Denies any recreational drug use. He states he took a taxi here he lives alone. Prior similar symptoms: Yes PFSH [facility] Medical History Dietary restriction Esophageal tear Smoker [...] mg PO QHS 07/11/24 10/20/24 Hist ory albuterol sulfate 90 mcg/actuation 2 inh inhalation [...] Unknown Hi story intramuscular syringe (Invega Sustenna) dicyclomine 20 mg tablet 20 mg PO BID PRN abdominal pain Unknown Rx #30 tabs esomeprazole magnesium 40 mg 40 mg PO BID #60 caps 11/04/24 Unk nown Rx capsule,delayed release sucralfate 100 mg/mL oral 10 ml PO BID #300 mL 11/09/24 Unkn own Rx suspension (Carafate) Allergy/AdvReac Type [...] ROS ROS ED Constitutional Constitutional ED: Denies chills, fever(s) or sweats ENT ENT ED: Denies sore throat Cardiovascular Cardiovascular: Denies chest pain, leg edema, palpitations or racing heartbeat Respiratory/Chest Respiratory/Chest: Denies cough, dyspnea or dyspnea on exertion Gastrointestinal Gastrointestinal: Denies abdominal pain, diarrhea, nausea or vomiting Genitourinary Genitourinary ED: Denies dysuria, hematuria or urinary frequency Musculoskeletal Musculoskeletal: Denies back pain, extremity pain or neck pain Integumentary Denies rash or wounds Neurologic Neurologic: Denies headache(s), paresthesias or weakness Psychiatric Psychiatric: Reports anxiety; Denies suicidal ideation or suicidal thoughts EXAM Physical Exam Const Vital Signs: 11/12/24 09:26 11/12/24 11:26 11/12/24 12:06 Temperature 97.9 F 97.8 F Temperature Source Temporal Pulse Rate 113 H 99 82 Respiratory Rate 18 18 16 Blood Pressure 130/86 H 132/94 H 127/82 H Blood Pressure Mean 100 106 97 Pulse Ox 100 99 100 Oxygen Delivery Method Room Air Positive well nourished and well developed General Appearance ED: well developed and NAD HEENT Reports moist mucous membranes normocephalic and atraumatic Eyes General Eye ED: Yes normal appearance of both eyes; Negative for pale conjunctiva Neck full ROM Chest Wall Chest: Negative for tenderness Resp normal respiratory effort and normal air movement Effort and Inspection: symmetric chest movement; Negative for respiratory dist (more content not included)... Normal [facility] Gastroenterology Visit Repor ton 11-09-[address] [facility]astroenterology [address] [place] [address] OFFICE VISIT Date of Service: 11/09/24 MR#: [id number] Acct: [id number] Name: MATTY WHITLOCK Rep #: [id number] : 1990 Provider: NORMA Rahman Age/Sex: 34/M Location: [facility] Status: Signed Intake Vital Signs 11/01/24 14:23 Height 5 ft 7 in Intake Visit Reasons: Abdominal pain Chief Complaint: epigastric pain Is patient in pain?: Yes Allergies ondansetron (From Zofran) Adverse Reaction (Verified 11/01/24 14:34) Other Nurse's Note: OV 11/09/24 Pt here for a f/u and reports epigastric pain, n/v, gas, and bloating. Pt reports no medication changes. [facility] Medical History Dietary restriction Esophageal tear Smoker [...] - Erythematous duodenopathy. Biopsied. GES; not completed [facility] ED 3 with abd pain and anxiety. Work up with mild leukocytosis with a left shift. Rectal exam with blood OV 4.24.25 Pt here today to re establish care [...] the epigastric pain started. He says its "all day" but less than 5x per day. It [...] and nontender (more content not included)... [facility] 36on 11-07-2024 36 Reviewed chart. Refi ll appropriate. RX sent. [facility] 36 Pended prior rx of albuterol inh. [facility] 36 Pt stated he was in the [...] prior to picking up the medication: No [facility] Abdomen/Pelvis W IV Cont ONL Yon 11-01-2024 Abdomen/Pelvis W IV Cont ONLY [facility] Imaging Services [address] [place], [place] [address] Abdomen/Pelvis W IV Cont ONLY MR#: [id number] Acct: [id number] Name: MATTY WHITLOCK Rep #: [id number] : 1990 M 34 From: Lexii Lopez PCP: Dr. Laine Dye MD Status: REG ER Study: Abdomen/Pelvis W IV Cont ONLY Date of Exam: Exam# [id number] Ordering Dr: Aidan Hickey DO PROCEDURE: ABDOMEN/PELVIS [...] acute diverticulitis. No bowel obstruction. Reading Location: [facility] CC: Dr. Aidan Hickey DO; Dr. Laine Dye MD Shine Worker: Signed Normal [facility] Absolute lymphocyte countOrd ered By: Aidanletty Hickey on 11-01-2024 Lymphocytes Auto (Unsp spec) [#/Vol] 3.02 10*3/uL 0.83-4.51 [facility] Absolute neutrophil countOrd ered By: [place] Edelmira on 11-01-2024 Neutrophils (Bld) [#/Vol] 9.4 10*3/uL High 2.0-7.7 [facility] Anion gap in Serum or Plasma Ordered By: Aidanletty Hickey on 11-01-2024 Anion gap [Moles/Vol] 10 mmol/L 5-15 [facility] Automated lymphocyte count a s percentage of total leukocytesOrdered By: Aidanletty Hickey on 11-01-2024 Lymphocytes/100 WBC Auto (Unsp spec) 22.2 % 19-41 [facility] BUN/creatinine ratioOrdered By: [place] Edelmira on 11-01-2024 Urea nitrogen/Creatinine [Mass ratio] 6.8 mg/mg Low 10-20 [facility] Basic Metabolic Profile (BMP )on 11-01-2024 BUN/CRE 6.8 RATIO Low 10-20 [facility] Comment on above: Performed By: #### L 500.2500 ####[facility] [address] [facility] [place], [address] Calcium [Mass/Vol] 8.5 mg/dL Normal 7.6-11.0 [facility] Comment on above: Performed By: #### L 500.2500 ####[facility] [address] [place], [address] Chloride [Moles/Vol] 100 mmol/L Normal 98-108 [facility] Comment on above: Performed By: #### L 500.2500 ####[facility] [address] [place], [address] CO2 [Moles/Vol] 22.1 mmol/L Normal 21.0-32.0 [facility] Comment on above: Performed By: #### L 500.2500 ####[facility] [address] [place], [address] Creatinine [Mass/Vol] 0.68 mg/dL Low 0.70-1.20 [facility] Comment on above: Performed By: #### L 500.2500 ####[facility] [address] [place], [address] ECRCL 162.73 ml/min Normal 50-250 [facility] Comment on above: Performed By: #### L 500.2500 ####[facility] [address] [place], [address] GAP 10 Normal 5-15 [facility] Comment on above: Performed By: #### L 500.2500 ####[facility] [address] [place], [address] GFR/1.73 sq M.predicted among non-blacks MDRD (S/P/Bld) [Vol rate/Area] 126 mL/min/{1.73_m2} Normal >60 [facility] Comment on above: Result Comment: mL/m in/1.73m2 CKD-EPI Creatinine Equation (2020) Performed By: #### L 500.2500 ####[facility] [address] [place], [address] Glucose [Mass/Vol] 96 mg/dL Normal 70-99 [facility] Comment on above: Performed By: #### L 500.2500 ####[facility] [address] [place], [address] Potassium [Moles/Vol] 3.6 mmol/L Normal 3.3-5.1 [facility] Comment on above: Performed By: #### L 500.2500 ####[facility] [address] [place], [address] Sodium [Moles/Vol] 133 mmol/L Normal 133-145 [facility] Comment on above: Performed By: #### L 500.2500 ####[facility] [address] [place], [address] Urea nitrogen [Mass/Vol] 5 mg/dL Normal 4-19 [facility] Comment on above: Performed By: #### L 500.2500 ####[facility] [address] [place], [address] Basophil percentageOrdered B y: Aidan Hickey on 11-01-2024 Basophils/100 WBC (Bld) 0.7 % 0-1 [facility] Bilirubin, totalOrdered By: Aidan Hickey on 11-01-2024 Bilirubin [Mass/Vol] 0.20 mg/dL 0.00-1.30 [facility] CBC W/Diff, Automatedon 07-0 Absolute Lymph 3.02 X10 3/uL Normal 0.83-4.51 [facility] Comment on above: Performed By: #### L 501.2450, L500.4050, L100.0100 ####[facility] [address] [place], [address] Absolute Neut 9.4 X10 3/uL High 2.0-7.7 [facility] Comment on above: Performed By: #### L 501.2450, L500.4050, L100.0100 ####[facility] [address] [place], [address] Basophils/100 WBC (Bld) 0.7 % Normal 0-1 [facility] Comment on above: Performed By: #### L 501.2450, L500.4050, L100.0100 ####[facility] [address] [place], [address] Eosinophils/100 WBC (Bld) 1.6 % Normal 0-5 [facility] Comment on above: Performed By: #### L 501.2450, L500.4050, L100.0100 ####[facility] [address] [place], [address] Erythrocyte distribution width (RBC) [Ratio] 12.7 % Normal 11.6-14.6 [facility] Comment on above: Performed By: #### L 501.2450, L500.4050, L100.0100 ####[facility] [address] [place], [address] Hematocrit (Bld) [Volume fraction] 38.0 % Low 40-54 [facility] Comment on above: Performed By: #### L 501.2450, L500.4050, L100.0100 ####[facility] [address] [place], [address] Hemoglobin (Bld) [Mass/Vol] 13.1 g/dL Normal 13.0-16.5 [facility] Comment on above: Performed By: #### L 501.2450, L500.4050, L100.0100 ####[facility] [address] [place], [address] IG% 0.500 Normal 0.0-0.9 [facility] Comment on above: Result Comment: IG% - Immature Granulocytes (promyelocytes, myelocytes and metamyelocytes) > 1% indicates that a LEFT SHIFT is Present. Performed By: #### L 501.2450, L500.4050, L100.0100 ####[facility] [address] [place], [address] Lymphocytes/100 WBC (Bld) 22.2 % Normal 19-41 [facility] Comment on above: Performed By: #### L 501.2450, L500.4050, L100.0100 ####[facility] [address] [place], [address] MCH (RBC) [Entitic mass] 28.7 pg Normal 27.0-32.0 [facility] Comment on above: Performed By: #### L 501.2450, L500.4050, L100.0100 ####[facility] [address] [place], [address] MCHC (RBC) [Mass/Vol] 34.5 g/dL Normal 32-36 [facility] Comment on above: Performed By: #### L 501.2450, L500.4050, L100.0100 ####[facility] [address] [place], [address] MCV (RBC) [Entitic vol] 83.3 fL Normal 80-94 [facility] Comment on above: Performed By: #### L 501.2450, L500.4050, L100.0100 ####[facility] [address] [place], [address] Monocytes/100 WBC (Bld) 6.0 % Normal 0-10 [facility] Comment on above: Performed By: #### L 501.2450, L500.4050, L100.0100 ####[facility] [address] [place], [address] Neutrophils/100 WBC (Bld) 69.0 % Normal 47-70 [facility] Comment on above: Performed By: #### L 501.2450, L500.4050, L100.0100 ####[facility] [address] [place], [address] Nucleated RBC (Bld) [#/Vol] 0 10*3/uL Normal 0-5 [facility] Comment on above: Performed By: #### L 501.2450, L500.4050, L100.0100 ####[facility] [address] [place], [address] Platelet mean volume (Bld) [Entitic vol] 9.6 fL Normal 6.2-12.0 [facility] Comment on above: Performed By: #### L 501.2450, L500.4050, L100.0100 ####[facility] [address] [place], [address] Platelets (Bld) [#/Vol] 263 10*3/uL Normal 150-450 [facility] Comment on above: Performed By: #### L 501.2450, L500.4050, L100.0100 ####[facility] [address] [place], [address] RBC (Bld) [#/Vol] 4.56 10*6/uL Low 4.6-6.2 [facility] Comment on above: Performed By: #### L 501.2450, L500.4050, L100.0100 ####[facility] [address] [place], [address] RDW SD 38.5 fl Normal 35.1-43.9 [facility] Comment on above: Performed By: #### L 501.2450, L500.4050, L100.0100 ####[facility] [address] [place], [address] WBC (Bld) [#/Vol] 13.6 10*3/uL High 4.4-11.0 [facility] Comment on above: Performed By: #### L 501.2450, L500.4050, L100.0100 ####[facility] [address] [place], [address] Carbon dioxide, total [Moles /volume] in Central venous bloodOrdered By: Aidan Hickey on 11-01-2024 CO2 [Moles/Vol] 22.1 mmol/L 21.0-32.0 [facility] Chest 1 View (Portable)on Chest 1 View (Portable) [facility] Imaging Services [address] [place] [address] Chest 1 View (Portable) MR#: [id number] Acct: [id number] Name: MATTY WHITLOCK Rep #: [id number] : 1990 M 34 From: Jv Lopez PCP: Dr. Laine Dye MD Status: REG ER Study: Chest 1 View (Portable) Date of Exam: 11/01/24 Exam# [id number] Ordering Dr: Aidan Hickey DO PROCEDURE: CHEST [...] space, indicative coracoclavicular ligament disruption. Reading Location: [address] CC: Dr. Aidan Hickey DO; Dr. Laine Dye MD Shine Worker: Signed Normal [facility] Chloride assayOrdered By: Maikol Hickey on 11-01-2024 Chloride [Moles/Vol] 100 mmol/L 98-108 [facility] Comprehensive Metabolic Prof ilon 11-01-2024 Albumin [Mass/Vol] 4.3 g/dL Normal 3.5-5.0 [facility] Comment on above: Performed By: #### L 501.2450, L500.4050, L100.0100 ####[facility] [address] [place], [address] Albumin/Globulin [Mass ratio] 1.9 {ratio} Normal 0.9-2.4 [facility] Comment on above: Performed By: #### L 501.2450, L500.4050, L100.0100 ####[facility] [address] [place], [address] ALK PHOS 82 U/L Normal 40-129 [facility] Comment on above: Performed By: #### L 501.2450, L500.4050, L100.0100 ####[facility] [address] [place], [address] ALT [Catalytic activity/Vol] 24 U/L Normal <=46 [facility] Comment on above: Performed By: #### L 501.2450, L500.4050, L100.0100 ####[facility] [address] [place], [address] AST [Catalytic activity/Vol] 20 U/L Normal <=37 [facility] Comment on above: Performed By: #### L 501.2450, L500.4050, L100.0100 ####[facility] [address] [place], [address] Bilirubin [Mass/Vol] 0.20 mg/dL Normal 0.00-1.30 [facility] Comment on above: Performed By: #### L 501.2450, L500.4050, L100.0100 ####[facility] [address] [place], [address] BUN/CRE 7.1 RATIO Low 10-20 [facility] Comment on above: Performed By: #### L 501.2450, L500.4050, L100.0100 ####[facility] [address] [place], [address] Calcium [Mass/Vol] 9.0 mg/dL Normal 7.6-11.0 [facility] Comment on above: Performed By: #### L 501.2450, L500.4050, L100.0100 ####[facility] [address] [place], [address] Chloride [Moles/Vol] 93 mmol/L Low 98-108 [facility] Comment on above: Performed By: #### L 501.2450, L500.4050, L100.0100 ####[facility] [address] [place], [address] CO2 [Moles/Vol] 22.1 mmol/L Normal 21.0-32.0 [facility] Comment on above: Performed By: #### L 501.2450, L500.4050, L100.0100 ####[facility] [address] [place], [address] Creatinine [Mass/Vol] 0.77 mg/dL Normal 0.70-1.20 [facility] Comment on above: Performed By: #### L 501.2450, L500.4050, L100.0100 ####[facility] [address] [place], [address] ECRCL 143.71 ml/min Normal 50-250 [facility] Comment on above: Performed By: #### L 501.2450, L500.4050, L100.0100 ####[facility] [address] [place], [address] GAP 12 Normal 5-15 [facility] Comment on above: Performed By: #### L 501.2450, L500.4050, L100.0100 ####[facility] [address] [place], [address] GFR/1.73 sq M.predicted among non-blacks MDRD (S/P/Bld) [Vol rate/Area] 121 mL/min/{1.73_m2} Normal >60 [facility] Comment on above: Result Comment: mL/m in/1.73m2 CKD-EPI Creatinine Equation (2020) Performed By: #### L 501.2450, L500.4050, L100.0100 ####[facility] [address] [place], [address] Globulin (S) [Mass/Vol] 2.2 g/dL Normal 2.2-4.2 [facility] Comment on above: Performed By: #### L 501.2450, L500.4050, L100.0100 ####[facility] [address] [place], [address] Glucose [Mass/Vol] 94 mg/dL Normal 70-99 [facility] Comment on above: Performed By: #### L 501.2450, L500.4050, L100.0100 ####[facility] [address] [place], [address] Potassium [Moles/Vol] 3.9 mmol/L Normal 3.3-5.1 [facility] Comment on above: Performed By: #### L 501.2450, L500.4050, L100.0100 ####[facility] [address] [place], [address] Sodium [Moles/Vol] 127 mmol/L Low 133-145 [facility] Comment on above: Performed By: #### L 501.2450, L500.4050, L100.0100 ####[facility] [address] [place], [address] T PROT 6.5 g/dL Normal 5.9-8.4 [facility] Comment on above: Performed By: #### L 501.2450, L500.4050, L100.0100 ####[facility] [address] [place], [address] Urea nitrogen [Mass/Vol] 5 mg/dL Normal 4-19 [facility] Comment on above: Performed By: #### L 501.2450, L500.4050, L100.0100 ####[facility] [address] [place], [address] Emergency Department Summary on 11-01-2024 Emergency Department Summary [facility] Medical Records Department [address] [place] [address] Emergency Department Summary 11/01/24 MR#: [id number] Acct: [id number] Name: MATTY WHITLOCK Rep #: [id number] : 1990 34 From: Aidan Hickey DO [...] grossly intact, sensation intact Psych: Cooperative, anxious [facility] Medical History Dietary restriction Esophageal [...] Gastroparesis. Nonbleeding (more content not included)... Normal [facility] Eosinophil percentageOrdered By: Aidan Hickey on 11-01-2024 Eosinophils/100 WBC (Bld) 1.6 % 0-5 [facility] Erythrocyte distribution wid th ratioOrdered By: Aidan Hickey on 11-01-2024 Erythrocyte distribution width (RBC) [Ratio] 12.7 % 11.6-14.6 [facility] Erythrocyte distribution wid th standard deviationOrdered By: Aidan Vega on 11-01-2024 Erythrocyte distribution width (RBC) [Ratio] 38.5 fl 35.1-43.9 [facility] Glomerular filtration rate ( GFR) estimation/1.73 sq m using serum, plasma, or whole bOrdered By: Aidan Hickey on 11-01-2024 GFR/1.73 sq M.predicted among non-blacks MDRD (S/P/Bld) [Vol rate/Area] 126 mL/min/{1.73_m2} >60 [facility] Comment on above: mL/min/1.73m2 CKD-EP I Creatinine Equation (2020) Hematocrit Auto (Bld) [Volum e fraction]Ordered By: Aidan Hickey on 11-01-2024 Hematocrit (Bld) [Volume fraction] 38.0 % Low 40-54 [facility] Hemoglobin measurementOrdere d By: Aidan Hickey on 11-01-2024 Hemoglobin (Bld) [Mass/Vol] 13.1 g/dL 13.0-16.5 [facility] Immature granulocytes/100 WB C Auto (Bld)Ordered By: Aidan Hickey on 11-01-2024 Immature granulocytes/100 WBC (Bld) 0.500 % 0.0-0.9 [facility] Comment on above: IG% - Immature Granu locytes (promyelocytes, myelocytes and metamyelocytes) > 1% indicates that a LEFT SHIFT is Present. Laboratory - Chemistry and C hemistry - challengeOrdered By: Aidan Hickey on 11-01-2024 AST [Catalytic activity/Vol] 20 U/L <38 [facility] Lipaseon 11-01-2024 Lipase [Catalytic activity/Vol] 46 U/L Normal 13-75 [facility] Comment on above: Result Comment: Ira morales note: LIPASE revised reference range effective 22. New Lipase methodology. Expected to produce lower values than the previous assay method. NEW Reference Range: 13 - 75 U/L Performed By: #### L 501.2450, L500.4050, L100.0100 ####[facility] [address] [place], [address] Lipase measurementOrdered By : Aidan Hickey on 11-01-2024 Lipase [Catalytic activity/Vol] 46 U/L 13-75 [facility] Comment on above: Please note:LIPASE r evised reference range effective 22. New Lipase methodology. Expected to produce lower values than the previous assay method. NEW Reference Range: 13 - 75 U/L MCV (mean corpuscular volume ) determinationOrdered By: Aidan Hickey on 11-01-2024 MCV (RBC) [Entitic vol] 83.3 fL 80-94 [facility] Mean corpuscular hemoglobin (MCH) determinationOrdered By: Aidan Hickey on 11-01-2024 MCH (RBC) [Entitic mass] 28.7 pg 27.0-32.0 [facility] Mean corpuscular hemoglobin concentration (MCHC) determinationOrdered By: Aidan Hickey on 11-01-2024 MCHC (RBC) [Mass/Vol] 34.5 g/dL 32-36 [facility] Mean platelet volume determi nationOrdered By: Aidan Hickey on 11-01-2024 Platelet mean volume (Bld) [Entitic vol] 9.6 fL 6.2-12.0 [facility] Monocyte percentageOrdered B y: Aidan Hickey on 11-01-2024 Monocytes/100 WBC (Bld) 6.0 % 0-10 [facility] Neutrophil percentageOrdered By: Aidan Hickey on 11-01-2024 Neutrophils/100 WBC (Bld) 69.0 % 47-70 [facility] Nucleated red blood cell per centageOrdered By: Aidan Hickey on 11-01-2024 Nucleated RBC/100 WBC (Bld) [Ratio] 0 % 0-5 [facility] Platelet countOrdered By: Maikol Hickey on 11-01-2024 Platelets (Bld) [#/Vol] 263 10*3/uL 150-450 [facility] Potassium measurement (mass/ volume)Ordered By: Aidan Hickey on 11-01-2024 Potassium (Unsp spec) [Mass/Vol] 3.6 mmol/L 3.3-5.1 [facility] RBC Auto (Bld) [#/Vol]Ordere d By: Aidan Hickey on 11-01-2024 RBC (Bld) [#/Vol] 4.56 10*6/uL Low 4.6-6.2 [facility] Serum creatinine measurement (mass/volume)Ordered By: Aidan Hickey on 11-01-2024 Creatinine [Mass/Vol] 0.68 mg/dL Low 0.70-1.20 [facility] Serum globulin measurementOr dered By: Aidan Hickey on 11-01-2024 Globulin (S) [Mass/Vol] 2.2 g/dL 2.2-4.2 [facility] Serum glucose measurement (m ass/volume)Ordered By: Aidan Hickey on 11-01-2024 Glucose [Mass/Vol] 96 mg/dL 70-99 [facility] Serum or plasma alanine montez otransferase (ALT) measurementOrdered By: Aidan Hickey on 11-01-2024 ALT [Catalytic activity/Vol] 24 U/L <47 [facility] Serum or plasma albumin simone urement (mass/volume)Ordered By: Aidan Vega on 11-01-2024 Albumin [Mass/Vol] 4.3 g/dL 3.5-5.0 [facility] Serum or plasma albumin/glob ulin mass ratioOrdered By: Aidan Hickey on 11-01-2024 Albumin/Globulin [Mass ratio] 1.9 {ratio} 0.9-2.4 [facility] Serum or plasma alkaline mellissa sphatase measurementOrdered By: Aidan Hickey on 11-01-2024 ALP [Catalytic activity/Vol] 82 U/L 40-129 [facility] Serum or plasma calcium simone urement (mass/volume)Ordered By: Aidan Vega on 11-01-2024 Calcium [Mass/Vol] 8.5 mg/dL 7.6-11.0 [facility] Serum or plasma urea nitroge n measurement (mass/volume)Ordered By: Aidan Hickey on 11-01-2024 Urea nitrogen [Mass/Vol] 5 mg/dL 4-19 [facility] Sodium levelOrdered By: Mane Hickey on 11-01-2024 Sodium [Moles/Vol] 133 mmol/L 133-145 [facility] Total proteinOrdered By: Oj Hickey on 11-01-2024 Protein [Mass/Vol] 6.5 g/dL 5.9-8.4 [facility] White blood cell (WBC) count Ordered By: Aidan Hickey on 11-01-2024 WBC (Bld) [#/Vol] 13.6 10*3/uL High 4.4-11.0 [facility] EGD Reporton 10-21-2024 EGD Report [facility] Medical Records Department [address] [place] [address] EGD Report MR#: [id number] Acct: [id number] Name: MATTY WHITLOCK Rep #: [id number] : 1990 34 From: Vishnu Herndon DO PCP: Dr. Laine Dye MD Status:[facility] Patient Name: Matty Whitlock Procedure Date: 10/21/2024 [...] 1 month. Procedure Code(s): --- Professional --- 50341, Small intestinal endoscopy, enteroscopy beyond second portion of duodenum, not including ileum; with biopsy, single or multiple CPT copyright 2021 [employer]. All rights reserved. The codes documented in this rep (more content not included)... Normal [facility] Immunohistochemical Stainson 10-21-2024 Immunohistochemical Stains Patient Age/Sex Location Account Attending Physician MATTY WHITLOCK 34/M EN [id number] Vishnu Herndon DO Specimen: [id number] Received: 10/21/24 Status: DIAN Weinstein Num: [id number] Spec Type: EGD BIOPSY Charbel Dr: Vishnu Herndon DO HEADER OPERATION: EGD [...] labeled with the patient's name and designated "Duodenum biopsy." The specimen consists of three irregular fragments of light crowell soft tissue that in aggregate measure 0.3 and 0.5 cm. The specimen is totally submitted in one cassette. JUSTINA/ 10/21/2024 CPT:60950f3,35599 Patient Age/Sex Location Account Attending Physician YOBANYCOLLEENMATTY JULIANNA 34/M EN [id number] Vishnu Herndon DO ADDENDUM Addendum 1 Entered: 11/04/24-1612 This addendum is to report the IHC for H pylori on part B: B. IHC negative for H pylori organisms. All matched controls reacted appropriately. These tests were developed and their performance characteristics determined by [facility]. They may not have been cleared or approved by the U.S. Food and Drug Administration. The FDA has determined that such clearance or approval is not necessary.??? The above immunohistochemical/dualIS H???markers are reviewed by the Pathologist. Addendum Signed (signature on file) Dr. Argentina Phelps MD 11/04/241612 Patient Age/Sex Location Account Attending Physician YOBANYCOLLEENMATTY 34/M EN [id number] Vishnu Herndon DO Signed (signature on file) Dr. Argentina Phelps MD 11/04/24 1023 [facility] Comment on above: Performed By: #### RADHA MESSER ####[facility] [address] [place], [address] MR/POSTOP.ANEon 10-21-2024 MR/POSTOP.[facility] Medical Records Department [address] [place] [address] Anesthesia Postop Eval I 10/21/24 1236 MR#: [id number] Acct: [id number] Name: YAIMANILESHMATTY Rep #: [id number] : 1990 34 From: Myla Upton CRNA PCP: Dr. Laine Dye MD Status:REG SD Y Race: C Location: [place] [address] Anesthesia: Postop Eval I Current Vital Signs Temperature: 97.6 F Pulse Rate: 70 Blood Pressure: 125/78 Respiratory Rate: 20 Pulse Ox: 95 Assessment Airway patent: Yes Spontaneous unlabored respirations: Yes nausea: No Vomiting: No Anesthesia Complication: No Fluid Hydration Crystalloid volume administer (ml): 500 Total IV fluid infused: 500 Progress Note Anesthesia document: Postop Eval 1 completed: Yes 10/21/24 1236 Date Myla Duongca FILTER PRESS TENDER Cosigner Signature: Date CC: Signed Normal [facility]/FAOIVAJT6ho 10-21-2024 [facility] Medical Records Department [address] [place] [address] Anesthesia Postop Eval II 10/21/24 1311 MR#: [id number] Acct: [id number] Name: MATTY WHITLOCK Rep #: [id number] : 1990 34 From: Myla Upton FILTER PRESS TENDER PCP: Dr. Laine Dye MD Status:REG [facility] Race: C Location: [place] [address] Anesthesia Postop Eval I Sum Postop Eval Completion status Anesthesia document: Postop Eval 1 completed: Yes Anesthesia Postop Eval I Summary Anesthesia Postop Eval I Summary: Anesthesia Postop Eval I: Assessment Summary Airway patent Yes 10/21/24 12:36 FILTER PRESS TENDER.CSIR Spontaneous unlabored Yes 10/21/24 12:36 FILTER PRESS TENDER.CSIR respirations Mental status nausea No 10/21/24 12:36 FILTER PRESS TENDER.CSIR Vomiting No 10/21/24 12:36 FILTER PRESS TENDER.CSIR Anesthesia Postop Eval I: Fluid Summary Crystalloid volume administer 500 10/21/24 12:36 FILTER PRESS TENDER.CSIR (ml) Colloids volume administered ( ml) Blood Product volume administered (ml) Total IV fluid infused 500 10/21/24 12:36 FILTER PRESS TENDER.CSIR Anesthesia Postop Eval I: Summary Notes Anesthesia Complication No 10/21/24 12:36 FILTER PRESS TENDER.CSIR Anesthesia Complication Comment: Post-operative progress note Anesthesia: Postop Eval II Evaluation Mental status: Awake Pain Level: 0 nausea: No Vomiting: No 10/21/24 1311 Date Mylamark Upton FILTER PRESS TENDER Cosigner Signature: Date CC: Signed Normal [facility] Surgery Specimen Level Alyson 10-21-2024 Surgery Specimen Level IV Patient Age/Sex Location Account Attending Physician MATTY WHITLOCK/M EN [id number] Vishnu Herndon DO Specimen: [id number] Received: 10/21/24 Status: DIAN Weinstein Num: [id number] Spec Type: EGD BIOPSY Subm Dr: DO [...] labeled with the patient's name and designated "Duodenum biopsy." The specimen consists of three irregular fragments of light crowell soft tissue that in aggregate measure 0.3 and 0.5 cm. The specimen is totally submitted in one cassette. JUSTINA/ 10/21/2024 CPT:88856z2,61926 Patient Age/Sex Location Account Attending Physician MATTY WHITLOCK 34/M EN [id number] Vishnu Herndon DO Signed (signature on file) Dr. Argentina Phelps MD 11/04/24 1023 Normal [facility] Comment on above: Performed By: #### RADHA MESSER ####[facility] [address] [facility] [place], [place], [address] MR/PAT.Jennifer 10-20-2024 MR/PAT.[facility] Medical Records Department [address] [address] PAT - Anesthesia 10/20/24 1422 MR#: [id number] Acct: [id number] Name: MATTY WHITLOCK Rep #: [id number] : 1990 34 From: Corby Rizo MD PCP: Dr. 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 Hx Hospitalization No 10/20/24 09:55 Any Problems [...] take am of surgery PONV PONV - sales assistants and salespersons: PONV - sales assistants and salespersons Female No 10/20/24 09:55 HX of Motion [...] 10/19/24 12:17 Respiratory Assessment Respiratory Assessment - sales assistants and salespersons: Respiratory Tract Infection Hx - sales assistants and salespersons Hx Respiratory Tract Infection Yes: CURRENT CHEST COLD 10/20/24 09:55 STOP Sleep Apnea STOP Sleep Apnea - sales assistants and salespersons: STOP Sleep Apnea - sales assistants and salespersons Hx Hypertension No 10/20/24 09:55 Hx Sleep [...] Tobacco Use History Tobacco Use History - sales assistants and salespersons: Tobacco Use History - 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 assistants and salespersons Tobacco Use Smoking Status Current every day smoker 10/20/24 09:55 Hx Tobacco Use Yes 10/20/24 09:55 Years Smoking Packs Smoked per Day 0.5 10/20/24 09:55 Smoking Cessation Date was within the last 15 years Hx Smoking Cessation Date Hx [facility] Hematologic Medial History Hematologic Hx - sales assistants and salespersons: 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 Normal [facility] Chest PA and Lateralon 10-19 Chest PA and Lateral [facility] Imaging Services [address] [place] [address] Chest PA and Lateral MR#: [id number] Acct: [id number] Name: MATTY WHITLOCK Rep #: [id number] : 1990 M 34 From: Sean simmons MD PCP: Dr. Laine Dye MD Status: REG ER Study: Chest PA and Lateral Date of Exam: 10/19/24 Exam# [id number] Ordering Dr: Lester Aguilar DO PROCEDURE: CHEST PA AND LATERAL 10/19/2024 REASON FOR EXAM: SOB TECHNIQUE: CHEST PA AND LATERAL COMPARISON: Prior study dated September 03, 2022. FINDINGS: Hardware: None Heart: The heart size is normal. Mediastinum: The mediastinal contour is unremarkable. Lungs: The lungs are clear. Bones: The bones are unremarkable. RAD/Chest PA and Lateral IMPRESSION: NO ACUTE FINDINGS. Reading Location: [facility] CC: Dr. Laine Dye MD; Dr. Lester Aguilar DO Shine Worker: Signed Normal [facility] Emergency Department Summary on 10-19-2024 Emergency Department Summary [facility] Medical Records Department [address] [place] [address] Emergency Department Summary 10/19/24 MR#: [id number] Acct: [id number] Name: MATTY WHITLOCK Rep #: [id number] : 1990 34 From: Lester Aguilar DO [...] contacts denies any history of blood clots. [facility] Medical History Asthma Depression Anxiety [...] following commands knew that he was at [facility] years 2024 Skin: Warm, dry, intact no [...] 34-year-old male (more content not included)... Normal [facility] 36on 09-09-2024 36 Pt scheduled with Be cky 10/12/24 at 3:20 [facility] 36on 09-05-2024 36 Called pt and no voicemail [facility] 36 Rx sent for Nicorett e gum per request. Nicotine patches removed from medication list. If I am seeing correctly he has not been seen in the office since October 2022. Needs to schedule a physical and fasting blood work. [facility] 36 Name of caller: Matty Contact phone number: [phone] Relationship to Patient: patient Provider: Dr. Dye Practice: [facility] Chief Complaint/Reason for Call: Pt requesting a New Rx for Nicotine gum. He feels the patches doesn't help. He is requesting the higher dosage on the gum. Please advise. Best time of day caller can be reached: Any Patient advised that office/PCP has 24-48 business hours to return their call: Yes Normal [facility] Calprotectin, Stoolon [address] 43 ug/g Normal 0-120 [facility] Comment on above: Result Comment: Conc entration Interpretation Follow-Up < 5 - 50 ug/g Normal None >50 -120 ug/g Borderline Re-evaluate in 4-6 weeks >120 ug/g Abnormal Repeat as clinically indicated Performed at: - [facility] [address] [id number] Jet Piercer Operator: Azeem Govea MD, Phone: [phone] Performed By: #### M 100.675, L6489.4443, L7000.0700, M100.5196, M100.0605 #### [facility] Laboratory [address] [place], [address] Giardia Lamblia, Stool EIAon 08-24-2024 Giardia Stool Negative Normal Negative [facility] Comment on above: Result Comment: Perf ormed at: - [facility] [address] [id number] Jet Piercer Operator: Mayur Mcfarland PhD, Phone: [phone] Performed By: #### M 100.637, L7400.3300, L7000.0700, M100.6796, M100.0605 #### [facility] Laboratory [address] [place], [address] ENTERIC PATHOGEN PANEL STOOL on [...] VIBRIO Not Detected Yersinia Not Detected Normal [facility] Comment on above: Performed By: #### M 100.637, L7400.3300, L7000.0700, M100.6796, M100.0605 #### [facility] Laboratory [address] [facility] [place], [address] CDIFF (PCR)on 08-22-2024 CDIFF Pending 027 027 NAP1-B1 Presumptive Negative *for epidemiolologic???use C. Diff PCR Negative- No toxigenic C. Diff Detected Normal [facility] Comment on above: Performed By: #### M 100.637, L7400.3300, L7000.0700, M100.6796, M100.0605 #### [facility] Laboratory [address] [facility] [place], [address] ( Calprotectin stoolOrdered By : Yoselyn Ceja on 08-22-2024 Calprotectin stool 43 ug/g 0-120 [facility] Comment on above: Concentration Interp retation Follow-Up< 5 - 50 ug/g Normal None>50 -120 ug/g Borderline Re-evaluate in 4-6 weeks >120 ug/g Abnormal Repeat as clinically indicatedPerformed at: [facility] [address] [id number] Director: Azeem Govea MD, Phone: [phone] Clostridium difficile detect ion by polymerase chain reactionOrdered By: Yoselyn Ceja on 08-22-2024 C. difficile DNA DINAH+probe Ql (Unsp spec) [facility] Giardia lamblia ag stool EIA Ordered By: Yoselyn Ceja on 08-22-2024 G. lamblia Ag IA Ql (Stl) Negative Negative [facility] Comment on above: Performed at: [address] [id number] Director: Mayur Mcfarland PhD, Phone: [phone] Stool Lactoferrin/WBCon 07-27 WBCST Normal Reference Ran ge = Negative Fecal WBC Lactoferrin Negative: No Fecal WBC Lactoferrin present Normal [facility] Comment on above: Performed By: #### M 100.637, L7400.3300, L7000.0700, M100.6796, M100.0605 #### [facility] [address] [place], [address] Stool lactoferrin detection by immunoassayOrdered By: Yoselyn Ceja on 08-22-2024 Lactoferrin IA Ql (Stl) [facility] Gastroenterology Visit Repor ton 08-18-2024 Gastroenterology Visit Report [facility] [address] [place] [address] OFFICE VISIT Date of Service: 08/18/24 MR#: [id number] Acct: [id number] Name: YOBANYCOLLEENMATTY JULIANNA Rep #: [id number] : 1990 Provider: NORMA Rahman Age/Sex: 34/M Location: [facility] Status: Signed Intake Vital Signs 07/11/24 [...] finds it to be helping a some. [facility] Medical History Asthma Depression Anxiety Wears glasses [...] - Erythematous duodenopathy. Biopsied. GES; not completed [facility] ED 07.21.24 with abd pain and [...] the epigastric pain started. He says its "all day" but less than 5x per day. It [...] Appearance: average body habitus and well nourished [facility] Head: normal to inspection Ears: hearing grossly normal bilaterally Nose: external nose normal Face and sinus: normal facial exam Mouth: oral mucosae normal Throat: posterior oropharynx normal Eyes General: appearance normal, both eyes and all related structures (more content not included)... [facility] 12 Lead EKGon 08-12-2024 12 Lead EKG [facility] Cardiovascular Services [address] [place] [address] 12 Lead EKG 08/12/24 1537 MR#: [id number] Acct: [id number] Name: MATTY WHITLOCK Rep #: [id number] : 1990 34 From: Peng Olivas MD [...] ECG Confirmed by MALIK STEWART, PENG ([id number]), editor producer MARYANN PARKER ([id number]) on 08/15/2024 8:44:02 AM Referred By: IZA/MEHUL Confirmed By: PENG OLIVAS MD 08/15/24 0844 Date Peng Olivas MD CC: Dr. Aidan Hickey DO; Dr. Laine Dye MD; ED PHYSICIAN PROVIDER Signed [facility] 36on 08-12-2024 36 Prescription sent fo r pantoprazole 20 mg twice daily. [facility] 36 Name of caller: Jay Contact phone number: [phone] Relationship to Patient: patient Provider: Hardik Practice: [...] hours to return their call: No Normal [facility] Absolute lymphocyte countOrd ered By: Aidan Hickey on 08-12-2024 Lymphocytes Auto (Unsp spec) [#/Vol] 2.40 10*3/uL 0.83-4.51 [facility] Absolute neutrophil countOrd ered By: Aidanletty Hickey on 08-12-2024 Neutrophils (Bld) [#/Vol] 7.1 10*3/uL 2.0-7.7 [facility] Anion gap in Serum or Plasma Ordered By: Aidanletty Hickey on 08-12-2024 Anion gap [Moles/Vol] 12 mmol/L 5-15 [facility] Automated lymphocyte count a s percentage of total leukocytesOrdered By: Aidanletty Hickey on 08-12-2024 Lymphocytes/100 WBC Auto (Unsp spec) 22.6 % 19-41 [facility] BUN/creatinine ratioOrdered By: Aidanletty Hickey on 08-12-2024 Urea nitrogen/Creatinine [Mass ratio] 5.8 mg/mg Low 10-20 [facility] Basophil percentageOrdered B y: Aidanletty Hickey on 08-12-2024 Basophils/100 WBC (Bld) 0.5 % 0-1 [facility] Bilirubin, totalOrdered By: [place] Edelmira on 08-12-2024 Bilirubin [Mass/Vol] 0.34 mg/dL 0.00-1.30 [facility] CBC W/Diff, Automatedon 07-26 Absolute Lymph 2.40 X10 3/uL Normal 0.83-4.51 [facility] Comment on above: Performed By: #### L 501.2450, L500.4050, L100.0100 ####[facility] [address] [place], [address] Absolute Neut 7.1 X10 3/uL Normal 2.0-7.7 [facility] Comment on above: Performed By: #### L 501.2450, L500.4050, L100.0100 ####[facility] [address] [place], [address] Basophils/100 WBC (Bld) 0.5 % Normal 0-1 [facility] Comment on above: Performed By: #### L 501.2450, L500.4050, L100.0100 ####[facility] [address] [place], [address] Eosinophils/100 WBC (Bld) 0.9 % Normal 0-5 [facility] Comment on above: Performed By: #### L 501.2450, L500.4050, L100.0100 ####[facility] [address] [place], [address] Erythrocyte distribution width (RBC) [Ratio] 12.9 % Normal 11.6-14.6 [facility] Comment on above: Performed By: #### L 501.2450, L500.4050, L100.0100 ####[facility] [address] [place], [address] Hematocrit (Bld) [Volume fraction] 39.2 % Low 40-54 [facility] Comment on above: Performed By: #### L 501.2450, L500.4050, L100.0100 ####[facility] [address] [place], [address] Hemoglobin (Bld) [Mass/Vol] 13.8 g/dL Normal 13.0-16.5 [facility] Comment on above: Performed By: #### L 501.2450, L500.4050, L100.0100 ####[facility] [address] [place], [address] IG% 0.600 Normal 0.0-0.9 [facility] Comment on above: Result Comment: IG% - Immature Granulocytes (promyelocytes, myelocytes and metamyelocytes) > 1% indicates that a LEFT SHIFT is Present. Performed By: #### L 501.2450, L500.4050, L100.0100 ####[facility] [address] [place], [address] Lymphocytes/100 WBC (Bld) 22.6 % Normal 19-41 [facility] Comment on above: Performed By: #### L 501.2450, L500.4050, L100.0100 ####[facility] [address] [place], [address] MCH (RBC) [Entitic mass] 28.9 pg Normal 27.0-32.0 [facility] Comment on above: Performed By: #### L 501.2450, L500.4050, L100.0100 ####[facility] [address] [place], [address] MCHC (RBC) [Mass/Vol] 35.2 g/dL Normal 32-36 [facility] Comment on above: Performed By: #### L 501.2450, L500.4050, L100.0100 ####[facility] [address] [place], [address] MCV (RBC) [Entitic vol] 82.2 fL Normal 80-94 [facility] Comment on above: Performed By: #### L 501.2450, L500.4050, L100.0100 ####[facility] [address] [place], [address] Monocytes/100 WBC (Bld) 8.3 % Normal 0-10 [facility] Comment on above: Performed By: #### L 501.2450, L500.4050, L100.0100 ####[facility] [address] [place], [address] Neutrophils/100 WBC (Bld) 67.1 % Normal 47-70 [facility] Comment on above: Performed By: #### L 501.2450, L500.4050, L100.0100 ####[facility] [address] [place], [address] Nucleated RBC (Bld) [#/Vol] 0 10*3/uL Normal 0-5 [facility] Comment on above: Performed By: #### L 501.2450, L500.4050, L100.0100 ####[facility] [address] [place], [address] Platelet mean volume (Bld) [Entitic vol] 10.1 fL Normal 6.2-12.0 [facility] Comment on above: Performed By: #### L 501.2450, L500.4050, L100.0100 ####[facility] [address] [place], [address] Platelets (Bld) [#/Vol] 249 10*3/uL Normal 150-450 [facility] Comment on above: Performed By: #### L 501.2450, L500.4050, L100.0100 ####[facility] [address] [place], [address] RBC (Bld) [#/Vol] 4.77 10*6/uL Normal 4.6-6.2 [facility] Comment on above: Performed By: #### L 501.2450, L500.4050, L100.0100 ####[facility] [address] [place], [address] RDW SD 38.6 fl Normal 35.1-43.9 [facility] Comment on above: Performed By: #### L 501.2450, L500.4050, L100.0100 ####[facility] [address] [place], [address] WBC (Bld) [#/Vol] 10.6 10*3/uL Normal 4.4-11.0 [facility] Comment on above: Performed By: #### L 501.2450, L500.4050, L100.0100 ####[facility] [address] [place], [address] Carbon dioxide, total [Moles /volume] in Central venous bloodOrdered By: Aidan Hickey on 08-12-2024 CO2 [Moles/Vol] 23.1 mmol/L 21.0-32.0 [facility] Chloride assayOrdered By: Maikol Hickey on 08-12-2024 Chloride [Moles/Vol] 98 mmol/L 98-108 [facility] Comprehensive Metabolic Prof ilon 08-12-2024 Albumin [Mass/Vol] 4.8 g/dL Normal 3.5-5.0 [facility] Comment on above: Performed By: #### L 501.2450, L500.4050, L100.0100 ####[facility] [address] [place], [address] Albumin/Globulin [Mass ratio] 2.0 {ratio} Normal 0.9-2.4 [facility] Comment on above: Performed By: #### L 501.2450, L500.4050, L100.0100 ####[facility] [address] [place], [address] ALK PHOS 64 U/L Normal 40-129 [facility] Comment on above: Performed By: #### L 501.2450, L500.4050, L100.0100 ####[facility] [address] [place], [address] ALT [Catalytic activity/Vol] 26 U/L Normal <=46 [facility] Comment on above: Performed By: #### L 501.2450, L500.4050, L100.0100 ####[facility] [address] [place], [address] AST [Catalytic activity/Vol] 24 U/L Normal <=37 [facility] Comment on above: Performed By: #### L 501.2450, L500.4050, L100.0100 ####[facility] [address] [place], [address] Bilirubin [Mass/Vol] 0.34 mg/dL Normal 0.00-1.30 [facility] Comment on above: Performed By: #### L 501.2450, L500.4050, L100.0100 ####[facility] [address] [place], [address] BUN/CRE 5.8 RATIO Low 10-20 [facility] Comment on above: Performed By: #### L 501.2450, L500.4050, L100.0100 ####[facility] [address] [place], [address] Calcium [Mass/Vol] 9.5 mg/dL Normal 7.6-11.0 [facility] Comment on above: Performed By: #### L 501.2450, L500.4050, L100.0100 ####[facility] [address] [place], [address] Chloride [Moles/Vol] 98 mmol/L Normal 98-108 [facility] Comment on above: Performed By: #### L 501.2450, L500.4050, L100.0100 ####[facility] [address] [place], [address] CO2 [Moles/Vol] 23.1 mmol/L Normal 21.0-32.0 [facility] Comment on above: Performed By: #### L 501.2450, L500.4050, L100.0100 ####[facility] [address] [place], [address] Creatinine [Mass/Vol] 0.93 mg/dL Normal 0.70-1.20 [facility] Comment on above: Performed By: #### L 501.2450, L500.4050, L100.0100 ####[facility] [address] [place], [address] ECRCL 122.09 ml/min Normal 50-250 [facility] Comment on above: Performed By: #### L 501.2450, L500.4050, L100.0100 ####[facility] [address] [place], [address] GAP 12 Normal 5-15 [facility] Comment on above: Performed By: #### L 501.2450, L500.4050, L100.0100 ####[facility] [address] [place], [address] GFR/1.73 sq M.predicted among non-blacks MDRD (S/P/Bld) [Vol rate/Area] 112 mL/min/{1.73_m2} Normal >60 [facility] Comment on above: Result Comment: mL/m in/1.73m2 CKD-EPI Creatinine Equation (2020) Performed By: #### L 501.2450, L500.4050, L100.0100 ####[facility] [address] [place], [address] Globulin (S) [Mass/Vol] 2.4 g/dL Normal 2.2-4.2 [facility] Comment on above: Performed By: #### L 501.2450, L500.4050, L100.0100 ####[facility] [address] [place], [address] Glucose [Mass/Vol] 104 mg/dL High 70-99 [facility] Comment on above: Performed By: #### L 501.2450, L500.4050, L100.0100 ####[facility] [address] [place], [address] Potassium [Moles/Vol] 3.9 mmol/L Normal 3.3-5.1 [facility] Comment on above: Performed By: #### L 501.2450, L500.4050, L100.0100 ####[facility] [address] [place], [address] Sodium [Moles/Vol] 133 mmol/L Normal 133-145 [facility] Comment on above: Performed By: #### L 501.2450, L500.4050, L100.0100 ####[facility] [address] [place], [address] T PROT 7.2 g/dL Normal 5.9-8.4 [facility] Comment on above: Performed By: #### L 501.2450, L500.4050, L100.0100 ####[facility] [address] [place], [address] Urea nitrogen [Mass/Vol] 5 mg/dL Normal 4-19 [facility] Comment on above: Performed By: #### L 501.2450, L500.4050, L100.0100 ####[facility] [address] [place], [address] Emergency Department Summary on 08-12-2024 Emergency Department Summary [facility] Medical Records Department [address] [place] [address] Emergency Department Summary 08/12/24 MR#: [id number] Acct: [id number] Name: MATTY WHITLOCK Rep #: [id number] : 1990 34 From: Aidan Hickey DO [...] crampy. He states no it feels like " inflammation". He denies any fever, chills, shortness of [...] grossly intact, sensation intact Psych: Cooperative, anxious [facility] Medical History Asthma Depression Anxiety [...] not limited (more content not included)... Normal [facility] Eosinophil percentageOrdered By: Aidan Hickey on 08-12-2024 Eosinophils/100 WBC (Bld) 0.9 % 0-5 [facility] Erythrocyte distribution wid th (RBC) [Ratio]Ordered By: Aidan Hickey on 08-12-2024 Erythrocyte distribution width (RBC) [Entitic vol] 38.6 fL 35.1-43.9 [facility] Erythrocyte distribution wid th ratioOrdered By: Aidan Hickey on 08-12-2024 Erythrocyte distribution width (RBC) [Ratio] 12.9 % 11.6-14.6 [facility] Erythrocyte distribution wid th standard deviationOrdered By: Aidan Vega on 08-12-2024 Erythrocyte distribution width (RBC) [Ratio] 38.6 fl 35.1-43.9 [facility] Estimation of creatinine roddy aranceOrdered By: Aidan Hickey on 08-12-2024 Estimated Creatinine Clearance Calc 122.09 ml/min 50-250 [facility] GFR/1.73 sq M.predicted jessee g non-blacks MDRD (S/P/Bld) [Vol rate/Area]Ordered By: Aidan Hickey on 08-12-2024 Estimated GFR (MDRD) Non-Af Amer 112 >60 [facility] Comment on above: mL/min/1.73m2 CKD-EP I Creatinine Equation (2020) Glomerular filtration rate ( GFR) estimation/1.73 sq m using serum, plasma, or whole bOrdered By: Aidan Hickey on 08-12-2024 GFR/1.73 sq M.predicted among non-blacks MDRD (S/P/Bld) [Vol rate/Area] 112 mL/min/{1.73_m2} >60 [facility] Comment on above: mL/min/1.73m2 CKD-EP I Creatinine Equation (2020) Hematocrit Auto (Bld) [Volum e fraction]Ordered By: Aidan Hickey on 08-12-2024 Hematocrit (Bld) [Volume fraction] 39.2 % Low 40-54 [facility] Hemoglobin measurementOrdere d By: Aidan Hickye on 08-12-2024 Hemoglobin (Bld) [Mass/Vol] 13.8 g/dL 13.0-16.5 [facility] Immature granulocytes/100 WB C Auto (Bld)Ordered By: Aidan Hickey on 08-12-2024 Immature granulocytes/100 WBC (Bld) 0.600 % 0.0-0.9 [facility] Comment on above: IG% - Immature Granu locytes (promyelocytes, myelocytes and metamyelocytes) > 1% indicates that a LEFT SHIFT is Present. Laboratory - Chemistry and C hemistry - challengeOrdered By: Aidan Hickey on 08-12-2024 AST [Catalytic activity/Vol] 24 U/L <38 [facility] Lipaseon 08-12-2024 Lipase [Catalytic activity/Vol] 30 U/L Normal 13-75 [facility] Comment on above: Result Comment: Ira morales note: LIPASE revised reference range effective 22. New Lipase methodology. Expected to produce lower values than the previous assay method. NEW Reference Range: 13 - 75 U/L Performed By: #### L 501.2450, L500.4050, L100.0100 ####[facility] [address] [place], [address] Lipase measurementOrdered By : Aidan Hickey on 08-12-2024 Lipase [Catalytic activity/Vol] 30 U/L 13-75 [facility] Comment on above: Please note:LIPASE r evised reference range effective 22. New Lipase methodology. Expected to produce lower values than the previous assay method. NEW Reference Range: 13 - 75 U/L Lymphocytes Auto (Unsp spec) [#/Vol]Ordered By: Aidan Hickey on 08-12-2024 Lymphocytes (Bld) [#/Vol] 2.40 10*3/uL 0.83-4.51 [facility] Lymphocytes/100 WBC Auto (Un sp spec)Ordered By: Aidan Hickey on 08-12-2024 Lymphocytes/100 WBC (Bld) 22.6 % 19-41 [facility] MCV (mean corpuscular volume ) determinationOrdered By: Aidan Hickey on 08-12-2024 MCV (RBC) [Entitic vol] 82.2 fL 80-94 [facility] Mean corpuscular hemoglobin (MCH) determinationOrdered By: Aidan Hickey on 08-12-2024 MCH (RBC) [Entitic mass] 28.9 pg 27.0-32.0 [facility] Mean corpuscular hemoglobin concentration (MCHC) determinationOrdered By: Aidan Hickey on 08-12-2024 MCHC (RBC) [Mass/Vol] 35.2 g/dL 32-36 [facility] Mean platelet volume determi nationOrdered By: Aidan Hickey on 08-12-2024 Platelet mean volume (Bld) [Entitic vol] 10.1 fL 6.2-12.0 [facility] Monocyte percentageOrdered B y: Aidan Hickey on 08-12-2024 Monocytes/100 WBC (Bld) 8.3 % 0-10 [facility] Neutrophil percentageOrdered By: Aidan Hickey on 08-12-2024 Neutrophils/100 WBC (Bld) 67.1 % 47-70 [facility] Nucleated red blood cell per centageOrdered By: Aidan Hickey on 08-12-2024 Nucleated RBC/100 WBC (Bld) [Ratio] 0 % 0-5 [facility] Platelet countOrdered By: Maikol Hickey on 08-12-2024 Platelets (Bld) [#/Vol] 249 10*3/uL 150-450 [facility] Potassium (Unsp spec) [Mass/ Vol]Ordered By: Aidan Hickey on 08-12-2024 Potassium [Moles/Vol] 3.9 mmol/L 3.3-5.1 [facility] Potassium measurement (mass/ volume)Ordered By: Aidan Hickey on 08-12-2024 Potassium (Unsp spec) [Mass/Vol] 3.9 mmol/L 3.3-5.1 [facility] RBC Auto (Bld) [#/Vol]Ordere d By: Aidan Hickey on 08-12-2024 RBC (Bld) [#/Vol] 4.77 10*6/uL 4.6-6.2 [facility] Serum creatinine measurement (mass/volume)Ordered By: Aidan Hickey on 08-12-2024 Creatinine [Mass/Vol] 0.93 mg/dL 0.70-1.20 [facility] Serum globulin measurementOr dered By: Aidan Hickey on 08-12-2024 Globulin (S) [Mass/Vol] 2.4 g/dL 2.2-4.2 [facility] Serum glucose measurement (m ass/volume)Ordered By: Aidan Hickey on 08-12-2024 Glucose [Mass/Vol] 104 mg/dL High 70-99 [facility] Serum or plasma alanine montez otransferase (ALT) measurementOrdered By: Aidan Hickey on 08-12-2024 ALT [Catalytic activity/Vol] 26 U/L <47 [facility] Serum or plasma albumin simone urement (mass/volume)Ordered By: Aidan Vega on 08-12-2024 Albumin [Mass/Vol] 4.8 g/dL 3.5-5.0 [facility] Serum or plasma albumin/glob ulin mass ratioOrdered By: Aidan Hickey on 08-12-2024 Albumin/Globulin [Mass ratio] 2.0 {ratio} 0.9-2.4 [facility] Serum or plasma alkaline mellissa sphatase measurementOrdered By: Aidan Hickey on 08-12-2024 ALP [Catalytic activity/Vol] 64 U/L 40-129 [facility] Serum or plasma calcium simone urement (mass/volume)Ordered By: Aidan Vega on 08-12-2024 Calcium [Mass/Vol] 9.5 mg/dL 7.6-11.0 [facility] Serum or plasma urea nitroge n measurement (mass/volume)Ordered By: Aidan Hickey on 08-12-2024 Urea nitrogen [Mass/Vol] 5 mg/dL 4-19 [facility] Sodium levelOrdered By: Mane Hickey on 08-12-2024 Sodium [Moles/Vol] 133 mmol/L 133-145 [facility] Total proteinOrdered By: Oj HarrisonJeanne on 08-12-2024 Protein [Mass/Vol] 7.2 g/dL 5.9-8.4 [facility] White blood cell (WBC) count Ordered By: Aidan PetersonEmile on 08-12-2024 WBC (Bld) [#/Vol] 10.6 10*3/uL 4.4-11.0 [facility] 36on 08-04-2024 36 Medication name: esomeprazole (NexIUM) [...] prior to picking up the medication: Yes [facility] 36on 07-20-2024 36 Rx sent [facility] 36 Name of caller: Matty Contact phone number: [phone] Relationship to Patient: patient Provider: Hardik Practice: [facility] Chief Complaint/Reason for Call: In reference to 06/15/23 TE, patient is requesting the 7 mg Nicotine patches be called in to: [address] - [place]- [address] Please advise. Best time of day caller can be reached: any Patient advised that office/PCP has 24-48 business hours to return their call: No [facility] Absolute lymphocyte countOrd ered By: Gricel Talley on 07-11-2024 Lymphocytes Auto (Unsp spec) [#/Vol] 1.47 10*3/uL 0.83-4.51 [facility] Absolute neutrophil countOrd ered By: Gricel Talley on 07-11-2024 Neutrophils (Bld) [#/Vol] 9.5 10*3/uL High 2.0-7.7 [facility] Anion gap in Serum or Plasma Ordered By: Gricel Talley on 07-11-2024 Anion gap [Moles/Vol] 12 mmol/L 5-15 [facility] Automated lymphocyte count a s percentage of total leukocytesOrdered By: Gricel Talley on 07-11-2024 Lymphocytes/100 WBC Auto (Unsp spec) 12.3 % Low 19-41 [facility] BUN/creatinine ratioOrdered By: Gricel Talley on 07-11-2024 Urea nitrogen/Creatinine [Mass ratio] 7.2 mg/mg Low 10-20 [facility] Basophil percentageOrdered B y: Gricel Talley on 07-11-2024 Basophils/100 WBC (Bld) 0.3 % 0-1 [facility] Bilirubin, totalOrdered By: Gricel Talley on 07-11-2024 Bilirubin [Mass/Vol] 0.24 mg/dL 0.00-1.30 [facility] CBC W/Diff, Automatedon 06-25 Absolute Lymph 1.47 X10 3/uL Normal 0.83-4.51 [facility] Comment on above: Performed By: #### L 500.4050, L501.2450, L100.0100 ####[facility] [address] [place], [address] Absolute Neut 9.5 X10 3/uL High 2.0-7.7 [facility] Comment on above: Performed By: #### L 500.4050, L501.2450, L100.0100 ####[facility] [address] [place], [address] Basophils/100 WBC (Bld) 0.3 % Normal 0-1 [facility] Comment on above: Performed By: #### L 500.4050, L501.2450, L100.0100 ####[facility] [address] [place], [address] Eosinophils/100 WBC (Bld) 0.3 % Normal 0-5 [facility] Comment on above: Performed By: #### L 500.4050, L501.2450, L100.0100 ####[facility] [address] [place], [address] Erythrocyte distribution width (RBC) [Ratio] 13.2 % Normal 11.6-14.6 [facility] Comment on above: Performed By: #### L 500.4050, L501.2450, L100.0100 ####[facility] [address] [place], [address] Hematocrit (Bld) [Volume fraction] 41.8 % Normal 40-54 [facility] Comment on above: Performed By: #### L 500.4050, L501.2450, L100.0100 ####[facility] [address] [place], [address] Hemoglobin (Bld) [Mass/Vol] 14.1 g/dL Normal 13.0-16.5 [facility] Comment on above: Performed By: #### L 500.4050, L501.2450, L100.0100 ####[facility] [address] [place], [address] IG% 0.800 Normal 0.0-0.9 [facility] Comment on above: Result Comment: IG% - Immature Granulocytes (promyelocytes, myelocytes and metamyelocytes) > 1% indicates that a LEFT SHIFT is Present. Performed By: #### L 500.4050, L501.2450, L100.0100 ####[facility] [address] [place], [address] Lymphocytes/100 WBC (Bld) 12.3 % Low 19-41 [facility] Comment on above: Performed By: #### L 500.4050, L501.2450, L100.0100 ####[facility] [address] [place], [address] MCH (RBC) [Entitic mass] 29.0 pg Normal 27.0-32.0 [facility] Comment on above: Performed By: #### L 500.4050, L501.2450, L100.0100 ####[facility] [address] [place], [address] MCHC (RBC) [Mass/Vol] 33.7 g/dL Normal 32-36 [facility] Comment on above: Performed By: #### L 500.4050, L501.2450, L100.0100 ####[facility] [address] [place], [address] MCV (RBC) [Entitic vol] 85.8 fL Normal 80-94 [facility] Comment on above: Performed By: #### L 500.4050, L501.2450, L100.0100 ####[facility] [address] [place], [address] Monocytes/100 WBC (Bld) 6.3 % Normal 0-10 [facility] Comment on above: Performed By: #### L 500.4050, L501.2450, L100.0100 ####[facility] [address] [place], [address] Neutrophils/100 WBC (Bld) 80.0 % High 47-70 [facility] Comment on above: Performed By: #### L 500.4050, L501.2450, L100.0100 ####[facility] [address] [place], [address] Nucleated RBC (Bld) [#/Vol] 0 10*3/uL Normal 0-5 [facility] Comment on above: Performed By: #### L 500.4050, L501.2450, L100.0100 ####[facility] [address] [place], [address] Platelet mean volume (Bld) [Entitic vol] 10.5 fL Normal 6.2-12.0 [facility] Comment on above: Performed By: #### L 500.4050, L501.2450, L100.0100 ####[facility] [address] [place], [address] Platelets (Bld) [#/Vol] 268 10*3/uL Normal 150-450 [facility] Comment on above: Performed By: #### L 500.4050, L501.2450, L100.0100 ####[facility] [address] [place], [address] RBC (Bld) [#/Vol] 4.87 10*6/uL Normal 4.6-6.2 [facility] Comment on above: Performed By: #### L 500.4050, L501.2450, L100.0100 ####[facility] [address] [place], [address] RDW SD 40.7 fl Normal 35.1-43.9 [facility] Comment on above: Performed By: #### L 500.4050, L501.2450, L100.0100 ####[facility] [address] [place], [address] WBC (Bld) [#/Vol] 11.9 10*3/uL High 4.4-11.0 [facility] Comment on above: Performed By: #### L 500.4050, L501.2450, L100.0100 ####[facility] [address] [place], [address] Carbon dioxide, total [Moles /volume] in Central venous bloodOrdered By: Gricel Talley on 07-11-2024 CO2 [Moles/Vol] 23.5 mmol/L 21.0-32.0 [facility] Chloride assayOrdered By: Aurelio Talley on 07-11-2024 Chloride [Moles/Vol] 103 mmol/L 98-108 [facility] Comprehensive Metabolic Prof ilon 07-11-2024 Albumin [Mass/Vol] 4.9 g/dL Normal 3.5-5.0 [facility] Comment on above: Performed By: #### L 500.4050, L501.2450, L100.0100 ####[facility] [address] [place], [address] Albumin/Globulin [Mass ratio] 1.9 {ratio} Normal 0.9-2.4 [facility] Comment on above: Performed By: #### L 500.4050, L501.2450, L100.0100 ####[facility] [address] [place], [address] ALK PHOS 60 U/L Normal 40-129 [facility] Comment on above: Performed By: #### L 500.4050, L501.2450, L100.0100 ####[facility] [address] [place], [address] ALT [Catalytic activity/Vol] 54 U/L High <=46 [facility] Comment on above: Performed By: #### L 500.4050, L501.2450, L100.0100 ####[facility] [address] [place], [address] AST [Catalytic activity/Vol] 33 U/L Normal <=37 [facility] Comment on above: Performed By: #### L 500.4050, L501.2450, L100.0100 ####[facility] [address] [place], [address] Bilirubin [Mass/Vol] 0.24 mg/dL Normal 0.00-1.30 [facility] Comment on above: Performed By: #### L 500.4050, L501.2450, L100.0100 ####[facility] [address] [place], [address] BUN/CRE 7.2 RATIO Low 10-20 [facility] Comment on above: Performed By: #### L 500.4050, L501.2450, L100.0100 ####[facility] [address] [place], [address] Calcium [Mass/Vol] 10.3 mg/dL Normal 7.6-11.0 [facility] Comment on above: Performed By: #### L 500.4050, L501.2450, L100.0100 ####[facility] [address] [place], [address] Chloride [Moles/Vol] 103 mmol/L Normal 98-108 [facility] Comment on above: Performed By: #### L 500.4050, L501.2450, L100.0100 ####[facility] [address] [place], [address] CO2 [Moles/Vol] 23.5 mmol/L Normal 21.0-32.0 [facility] Comment on above: Performed By: #### L 500.4050, L501.2450, L100.0100 ####[facility] [address] [place], [address] Creatinine [Mass/Vol] 0.94 mg/dL Normal 0.70-1.20 [facility] Comment on above: Performed By: #### L 500.4050, L501.2450, L100.0100 ####[facility] [address] [place], [address] ECRCL 122.94 ml/min Normal 50-250 [facility] Comment on above: Performed By: #### L 500.4050, L501.2450, L100.0100 ####[facility] [address] [place], [address] GAP 12 Normal 5-15 [facility] Comment on above: Performed By: #### L 500.4050, L501.2450, L100.0100 ####[facility] [address] [place], [address] GFR/1.73 sq M.predicted among non-blacks MDRD (S/P/Bld) [Vol rate/Area] 110 mL/min/{1.73_m2} Normal >60 [facility] Comment on above: Result Comment: mL/m in/1.73m2 CKD-EPI Creatinine Equation (2020) Performed By: #### L 500.4050, L501.2450, L100.0100 ####[facility] [address] [place], [address] Globulin (S) [Mass/Vol] 2.6 g/dL Normal 2.2-4.2 [facility] Comment on above: Performed By: #### L 500.4050, L501.2450, L100.0100 ####[facility] [address] [place], [address] Glucose [Mass/Vol] 98 mg/dL Normal 70-99 [facility] Comment on above: Performed By: #### L 500.4050, L501.2450, L100.0100 ####[facility] [address] [place], [address] Potassium [Moles/Vol] 3.9 mmol/L Normal 3.3-5.1 [facility] Comment on above: Performed By: #### L 500.4050, L501.2450, L100.0100 ####[facility] [address] [place], [address] Sodium [Moles/Vol] 139 mmol/L Normal 133-145 [facility] Comment on above: Performed By: #### L 500.4050, L501.2450, L100.0100 ####[facility] [address] [place], [address] T PROT 7.5 g/dL Normal 5.9-8.4 [facility] Comment on above: Performed By: #### L 500.4050, L501.2450, L100.0100 ####[facility] [address] [place], [address] Urea nitrogen [Mass/Vol] 7 mg/dL Normal 4-19 [facility] Comment on above: Performed By: #### L 500.4050, L501.2450, L100.0100 ####[facility] [address] [place], [address] Emergency Department Summary on 07-11-2024 Emergency Department Summary [facility] Medical Records Department [address] [place] [address] Emergency Department Summary 07/11/24 MR#: [id number] Acct: [id number] Name: MATTY WHITLOCK Rep #: [id number] : 1990 34 From: Gricel Talley DO [...] if he does not wear he has "severe nicotine withdraw" makes him feel very anxious. He states [...] complaints or concerns reported at this time. [facility] Medical History Asthma Depression Anxiety [...] exam. No (more content not included)... Normal [facility] Eosinophil percentageOrdered By: Gricel Talley on 07-11-2024 Eosinophils/100 WBC (Bld) 0.3 % 0-5 [facility] Erythrocyte distribution wid th ratioOrdered By: Gricel Talley on 07-11-2024 Erythrocyte distribution width (RBC) [Ratio] 13.2 % 11.6-14.6 [facility] Erythrocyte distribution wid th standard deviationOrdered By: Gricel Talley on 07-11-2024 Erythrocyte distribution width (RBC) [Entitic vol] 40.7 fL 35.1-43.9 [facility] Erythrocyte distribution width (RBC) [Ratio] 40.7 fl 35.1-43.9 [facility] Estimation of creatinine roddy aranceOrdered By: Gricel Talley on 07-11-2024 Estimated Creatinine Clearance Calc 122.94 ml/min 50-250 [facility] GFR/1.73 sq M.predicted jessee g non-blacks MDRD (S/P/Bld) [Vol rate/Area]Ordered By: Gricel Talley on 07-11-2024 Estimated GFR (MDRD) Non-Af Amer 110 >60 [facility] Comment on above: mL/min/1.73m2 CKD-EP I Creatinine Equation (2020) Glomerular filtration rate ( GFR) estimation/1.73 sq m using serum, plasma, or whole bOrdered By: Gricel Talley on 07-11-2024 GFR/1.73 sq M.predicted among non-blacks MDRD (S/P/Bld) [Vol rate/Area] 110 mL/min/{1.73_m2} >60 [facility] Comment on above: mL/min/1.73m2 CKD-EP I Creatinine Equation (2020) Hematocrit Auto (Bld) [Volum e fraction]Ordered By: Gricel Talley on 07-11-2024 Hematocrit (Bld) [Volume fraction] 41.8 % 40-54 [facility] Hemoglobin measurementOrdere d By: Gricel Talley on 07-11-2024 Hemoglobin (Bld) [Mass/Vol] 14.1 g/dL 13.0-16.5 [facility] Immature granulocytes/100 WB C Auto (Bld)Ordered By: Gricel Talley on 07-11-2024 Immature granulocytes/100 WBC (Bld) 0.800 % 0.0-0.9 [facility] Comment on above: IG% - Immature Granu locytes (promyelocytes, myelocytes and metamyelocytes) > 1% indicates that a LEFT SHIFT is Present. Laboratory - Chemistry and C hemistry - challengeOrdered By: Gricel Talley on 07-11-2024 AST [Catalytic activity/Vol] 33 U/L <38 [facility] Lipaseon 07-11-2024 Lipase [Catalytic activity/Vol] 27 U/L Normal 13-75 [facility] Comment on above: Result Comment: Ira morales note: LIPASE revised reference range effective 22. New Lipase methodology. Expected to produce lower values than the previous assay method. NEW Reference Range: 13 - 75 U/L Performed By: #### L 500.4050, L501.2450, L100.0100 ####[facility] [address] [place], [place], [address] Lipase measurementOrdered By : Gricel Talley on 07-11-2024 Lipase [Catalytic activity/Vol] 27 U/L 13-75 [facility] Comment on above: Please note:LIPASE r evised reference range effective 22. New Lipase methodology. Expected to produce lower values than the previous assay method. NEW Reference Range: 13 - 75 U/L Lower GI hemoglobin IA Ql (S tl)Ordered By: Gricel Talley on 07-11-2024 Stool Occult Blood (ADITYA) Positive Abnormal [facility] Lymphocytes Auto (Unsp spec) [#/Vol]Ordered By: Gricel Talley on 07-11-2024 Lymphocytes (Bld) [#/Vol] 1.47 10*3/uL 0.83-4.51 [facility] Lymphocytes/100 WBC Auto (Un sp spec)Ordered By: Gricel Talley on 07-11-2024 Lymphocytes/100 WBC (Bld) 12.3 % Low 19-41 [facility] MCV (mean corpuscular volume ) determinationOrdered By: Gricel Talley on 07-11-2024 MCV (RBC) [Entitic vol] 85.8 fL 80-94 [facility] Mean corpuscular hemoglobin (MCH) determinationOrdered By: Gricel Talley on 07-11-2024 MCH (RBC) [Entitic mass] 29.0 pg 27.0-32.0 [facility] Mean corpuscular hemoglobin concentration (MCHC) determinationOrdered By: Gricel Talley on 07-11-2024 MCHC (RBC) [Mass/Vol] 33.7 g/dL 32-36 [facility] Mean platelet volume determi nationOrdered By: Gricel Talley on 07-11-2024 Platelet mean volume (Bld) [Entitic vol] 10.5 fL 6.2-12.0 [facility] Monocyte percentageOrdered B y: Gricel Talley on 07-11-2024 Monocytes/100 WBC (Bld) 6.3 % 0-10 [facility] Neutrophil percentageOrdered By: Gricel Talley on 07-11-2024 Neutrophils/100 WBC (Bld) 80.0 % High 47-70 [facility] Nucleated red blood cell per centageOrdered By: Gricel Talley on 07-11-2024 Nucleated RBC/100 WBC (Bld) [Ratio] 0 % 0-5 [facility] Platelet countOrdered By: Aurelio Talley on 07-11-2024 Platelets (Bld) [#/Vol] 268 10*3/uL 150-450 [facility] Potassium (Unsp spec) [Mass/ Vol]Ordered By: Gricel Talley on 07-11-2024 Potassium [Moles/Vol] 3.9 mmol/L 3.3-5.1 [facility] Potassium measurement (mass/ volume)Ordered By: Gricel Talley on 07-11-2024 Potassium (Unsp spec) [Mass/Vol] 3.9 mmol/L 3.3-5.1 [facility] RBC Auto (Bld) [#/Vol]Ordere d By: Gricel Talley on 07-11-2024 RBC (Bld) [#/Vol] 4.87 10*6/uL 4.6-6.2 [facility] Serum creatinine measurement (mass/volume)Ordered By: Gricel Talley on 07-11-2024 Creatinine [Mass/Vol] 0.94 mg/dL 0.70-1.20 [facility] Serum globulin measurementOr dered By: Gricel Talley on 07-11-2024 Globulin (S) [Mass/Vol] 2.6 g/dL 2.2-4.2 [facility] Serum glucose measurement (m ass/volume)Ordered By: Gricel Talley on 07-11-2024 Glucose [Mass/Vol] 98 mg/dL 70-99 [facility] Serum or plasma alanine montez otransferase (ALT) measurementOrdered By: Gricel Talley on 07-11-2024 ALT [Catalytic activity/Vol] 54 U/L High <47 [facility] Serum or plasma albumin simone urement (mass/volume)Ordered By: Gricel Talley on 07-11-2024 Albumin [Mass/Vol] 4.9 g/dL 3.5-5.0 [facility] Serum or plasma albumin/glob ulin mass ratioOrdered By: Gricel Talley on 07-11-2024 Albumin/Globulin [Mass ratio] 1.9 {ratio} 0.9-2.4 [facility] Serum or plasma alkaline mellissa sphatase measurementOrdered By: Gricel Talley on 07-11-2024 ALP [Catalytic activity/Vol] 60 U/L 40-129 [facility] Serum or plasma calcium simone urement (mass/volume)Ordered By: Gricel Talley on 07-11-2024 Calcium [Mass/Vol] 10.3 mg/dL 7.6-11.0 [facility] Serum or plasma urea nitroge n measurement (mass/volume)Ordered By: Gricel Talley on 07-11-2024 Urea nitrogen [Mass/Vol] 7 mg/dL 4-19 [facility] Sodium levelOrdered By: Stas Talley on 07-11-2024 Sodium [Moles/Vol] 139 mmol/L 133-145 [facility] Stool Occult Blood iFOBon STOB Positive Normal [facility] Comment on above: Performed By: #### M 100.7900 ####[facility] [id number] [place], [address] Stool gastrointestinal hemog lobin detection by immunologic methodOrdered By: Gricel Talley on 07-11-2024 Lower GI hemoglobin IA Ql (Stl) Positive Abnormal [facility] Total proteinOrdered By: Kristina Talley on 07-11-2024 Protein [Mass/Vol] 7.5 g/dL 5.9-8.4 [facility] White blood cell (WBC) count Ordered By: Gricel Talley on 07-11-2024 WBC (Bld) [#/Vol] 11.9 10*3/uL High 4.4-11.0 [facility] 36on 07-04-2024 36 Step down therapy do se sent Normal [facility] 36 No follow up on file [facility] 06-15-2024 36 Spoke to patient, no questions. [facility] 06-14-2024 36 Called gurjit Decker er or . [facility] 06-13-2024 36 Prescription sent fo r nicotine replacement therapy with nicotine 21 mg patch daily. Recommend patient stepdown in 1 month to the 14 mg patch daily x 3-4 weeks, then to the 7 mg patch x 3-4 weeks, then stop. I sent in the prescription for the 21 mg. Let us know when you would like the step down doses sent. [facility] 36 Name of caller: Matty Contact phone number: [phone] Relationship to Patient: patient Provider: Hardik Practice: [facility] Chief Complaint/Reason for Call: Patient wants to quit smoking. He is requesting the 21 MG Nicotine patches. Let patient know if this can be done. [facility] in [place]. Best time of day caller can be reached: any Patient advised that office/PCP has 24-48 business hours to return their call: Yes [place] [address]on 04-22-2024 36 Called patient and L M due to missed appointment. Please schedule the patient for an appointment with the same visit type if they call to reschedule. [address] 04-18-2024 36 Patient has appt nisreen mayelin for 04/19 will address at visit [place] [address] lm to pre-visit plan for appointment with dr Dye on 04/19/24 8:15. Please ask patient to arrive 15 minutes early with Photo ID, insurance card Fasting: no [address] 04-14-2024 Attempted to call Rasheeda mesa, unsure if patient has an automated system for phone answering, was unable to leave message. [facility] 36 Rx sent for Nexium [facility] 36 S: Patient spoke wit h [facility] nurse regarding abdominal pain. B: Onset of symptoms/concern ongoing, getting worse. A: Patient is complaining of mild to moderate intermittent upper abdominal pain that feels like acid reflux." Denies hematemesis, blood in stool, vomiting, dizziness, chest pain, difficulty breathing, fever, chills. Reports some relief with Pepcid, "but Nexium is the only thing that really works." Pharmacy and allergies verified/reviewed with patient. Patient [...] be seen Protocols used: Abdominal Pain - [id number] Normal [facility] CNOVon 02-05-2024 CNOV Office Visit (UCWSTR ) -- MATTY WHITLOCK ([id number]) 1990 M Date Time Provider Department 02/05/24 1:45 PM ENRIQUE GARCIA [facility] During your visit today, we recorded the following information about you: Enrique Garcia APRN.CNP 02/05/2024 1:22 PM Signed Nontoxic-appearing male presents urgent care requesting medication refill. Patient states recently was [facility] from [facility]. Did not get a prescription for any [...] member to counseling center. Enrique Garcia APRN.PRAVIN Allergies As of Date: 02/05/2024 (No Known [...] Encounter Status:Closed by ENRIQUE GARCIA on 02/05/24 [facility] Emergency Department Summary on 02-05-2024 Emergency Department Summary [facility] Medical Records Department [address] [place] [id number] Emergency Department Summary 02/05/24 MR#: [id number] Acct: [id number] Name: MATTY WHITLOCK Rep #: [id number] : 1990 34 From: Florentino Cardona DO [...] admitted a couple weeks ago to a [facility] where he had his medication adjusted and was started on Haldol and Invega for sleep as well as Vistaril for anxiety. [facility] then [facility] facility and just [...] had been on BuSpar in the past. [facility] Medical History Anxiety Anxiety Asthma Asthma [...] chest katey (more content not included)... Normal [facility] Fluoroscopic guidance for salo mbar puncture (LP)Ordered By: Omkar Del Cid on 01-06-2024 Fluoroscopic guidance for lumbar puncture (LP) Negative [facility] No Panel InformationOrdered By: Omkar Del Cid on 01-06-2024 Amphetamines Screen Positive High [facility] Comment on above: URINE DRUG SCREENS A RE FOR MEDICAL PURPOSES ONLY.THIS TEST PROVIDES ONLY A PRELIMINARY TEST RESULT. A MORESPECIFIC ALTERNATE CHEMICAL METHOD MUST BE USED IN ORDER TOOBTAIN A CONFIRMED ANALYTICAL RESULT.CONFIRMATION PERFORMED UPON REQUEST Benzodiazepines Screen Positive [facility] Comment on above: URINE DRUG SCREENS A RE FOR MEDICAL PURPOSES ONLY.THIS TEST PROVIDES ONLY A PRELIMINARY TEST RESULT. A MORESPECIFIC ALTERNATE CHEMICAL METHOD MUST BE USED IN ORDER TOOBTAIN A CONFIRMED ANALYTICAL RESULT.CONFIRMATION PERFORMED UPON REQUEST Phencyclidine (PCP) Screen Negative [facility] Urine Drug Screen Note See below [facility] Comment on above: Cannabinoids ....... .................... [...] on 01-06-2024 Opiates Ql (Unsp spec) Negative [facility] Tetrahydrocannabinol [Presen ce] in UrineOrdered By: Omkar Del Cid on 01-06-2024 Tetrahydrocannabinol Ql (U) Positive [facility] Comment on above: THIS TEST PROVIDES O NLY A PRELIMINARY TEST RESULT. A MORESPECIFIC ALTERNATE CHEMICAL METHOD MUST BE USED IN ORDER TOOBTAIN A CONFIRMED ANALYTICAL RESULT.CONFIRMATION PERFORMED UPON REQUEST URINE DRUG SCREENon 01-06-[address] [facility] Comment on above: Order Comment: What Is Urine Source? Random Performed By: #### U DRGS #### [facility] [address] [place] [address] Other Comment: THIS TEST PROVIDES ONLY A [...] and can be ordered separately. BARBITURATES Negative [facility] Comment on above: Order Comment: What Is Urine Source? Random Performed By: #### U DRGS #### [address] [address] Other Comment: THIS TEST PROVIDES ONLY A [...] can be ordered separately. BENZODIAZEPINES Positive Abnormal [facility] Comment on above: Order Comment: What Is Urine Source? Random Performed By: #### U DRGS #### [address] [address] Other Comment: THIS TEST PROVIDES ONLY A [...] and can be ordered separately. COCAINE Negative [facility] Comment on above: Order Comment: What Is Urine Source? Random Performed By: #### U DRGS #### [address] [address] Other Comment: THIS TEST PROVIDES ONLY A [...] and can be ordered separately. METHADONE Negative [facility] Comment on above: Order Comment: What Is Urine Source? Random Performed By: #### U DRGS #### [address] [address] Other Comment: THIS TEST PROVIDES ONLY A [...] and can be ordered separately. OPIATES Negative [facility] Comment on above: Order Comment: What Is Urine Source? Random Performed By: #### U DRGS #### [address] [address] Other Comment: THIS TEST PROVIDES ONLY A [...] and can be ordered separately. PHENCYCLIDINE Negative [facility] Comment on above: Order Comment: What Is Urine Source? Random Performed By: #### U DRGS #### [address] [address] Other Comment: THIS TEST PROVIDES ONLY A [...] can be ordered separately. THC Positive Abnormal [facility] Comment on above: Order Comment: What Is Urine Source? Random Performed By: #### U DRGS #### [facility] [address] [place] [address] Other Comment: THIS TEST PROVIDES ONLY A [...] DRG SCREEN CUT OFF SEE BELOW Normal [facility] Comment on above: Order Comment: What Is Urine Source? Random Performed By: #### U DRGS #### [address] [address] Other Comment: THIS TEST PROVIDES ONLY A [...] separately. ALCOHOL,PLASMAon 01-05-2024 ALCOHOL,PLASMA < 3.0 Normal [facility] Comment on above: Result Comment: < 3 mg/dl NONE DETECTED 50-100 mg/dl MAY SHOW SIGNS OF INTOXICATION 300-500 mg/dl COMATOSE LEVEL Performed By: #### T RO, [place], [place] #### [facility] [address] [place] [address] CBC with AUTO DIFFon 024 BAS0 % 0.80 % Normal 0-2 [facility] Comment on above: Performed By: #### C BC ####[address] [place] [address] Basophils (Bld) [#/Vol] 0.1 10*3/uL Normal 0-0.1 [facility] Comment on above: Performed By: #### C BC ####[address] [address] Eosinophils (Bld) [#/Vol] 0.3 10*3/uL Normal 0.0-1.80 [facility] Comment on above: Performed By: #### C BC ####[address] [place] [address] Eosinophils/100 WBC (Bld) 2.5 % Normal 0-8 [facility] Comment on above: Performed By: #### C BC ####[address] [place] [address] GRAN # 6.4 K/uL Normal 2.2-9.1 [facility] Comment on above: Performed By: #### C BC ####[address] [place] [address] GRAN % 58.9 % Normal 42-80 [facility] Comment on above: Performed By: #### C BC ####[address] [address] Hematocrit (Bld) [Volume fraction] 39.5 % Low 41.0-53.0 [facility] Comment on above: Performed By: #### C BC ####[address] [place] [address] Hemoglobin (Bld) [Mass/Vol] 13.0 g/dL Low 14.0-18.0 [facility] Comment on above: Performed By: #### C BC ####[address] [place] [address] Lymphocytes (Bld) [#/Vol] 3.2 10*3/uL Normal 1.0-4.0 [facility] Comment on above: Performed By: #### C BC ####[address] [place] [address] Lymphocytes/100 WBC (Bld) 29.6 % Normal 16-48 [facility] Comment on above: Performed By: #### C BC ####[address] [place] [address] MCV (RBC) [Entitic vol] 87.6 fL Normal 80-97 [facility] Comment on above: Performed By: #### C BC ####[address] [facility] [place] [address] MEAN CORPUSCULAR HGB 28.8 pg Normal 26.0-32.0 [facility] Comment on above: Performed By: #### C BC ####[address] [facility] [place] [address] MEAN CORPUSCULAR HGB CONC 32.9 g/dL Normal 31.0-36.0 [facility] Comment on above: Performed By: #### C BC ####[address] [facility] [place] [address] MONO DISTRIB WIDTH 16.53 Normal 0-20 [facility] Comment on above: Result Comment: For ED adult patients suspected of sepsis, MDW<=20.0 does not rule out sepsis or risk of sepsis Performed By: #### C BC ####[address] [facility] [place] [address] Monocytes (Bld) [#/Vol] 0.9 10*3/uL Normal 0.1-1.7 [facility] Comment on above: Performed By: #### C BC ####[address] [facility] [place] [address] Monocytes/100 WBC (Bld) 8.2 % Normal 3-9 [facility] Comment on above: Performed By: #### C BC ####[address] [place] [address] Platelet mean volume (Bld) [Entitic vol] 8.1 fL Normal 6.4-10.5 [facility] Comment on above: Performed By: #### C BC ####[address] [place] [address] Platelets (Bld) [#/Vol] 276 10*3/uL Normal 140-450 [facility] Comment on above: Performed By: #### C BC ####[facility] [place] [address] RBC (Bld) [#/Vol] 4.51 10*6/uL Normal 4.40-6.30 [facility] Comment on above: Performed By: #### C BC ####[address] [place] [address] RED CELL DISTRI WIDTH 15.6 % High 11.0-15.5 [facility] Comment on above: Performed By: #### C BC ####[address] [place] [address] WBC (Bld) [#/Vol] 10.9 10*3/uL Normal 4.0-11.0 [facility] Comment on above: Performed By: #### C BC ####[address] [place] [address] COMPREHENSIVE METABOLIC PANE Gagandeep 01-05-2024 Albumin [Mass/Vol] 3.4 g/dL Normal 3.4-5.0 [facility] Comment on above: Performed By: #### Myla STORY [place]C [place] #### [facility] [address] [place] [address] Albumin/Globulin [Mass ratio] 1.2 {ratio} Normal 1.1-1.8 [facility] Comment on above: Performed By: #### Myla STORY ALC [place] #### [facility] [address] [place] [address] ALP [Catalytic activity/Vol] 53 U/L Normal 45-117 [facility] Comment on above: Performed By: #### Myla STORY ALC [place] #### [facility] [address] [place] [address] ALT [Catalytic activity/Vol] 25 U/L Normal 12-78 [facility] Comment on above: Performed By: #### Myla STORY [place]C [place] #### [address] [place] [address] Anion gap [Moles/Vol] 15.8 mmol/L Normal 11-23 [place] Comment on above: Performed By: #### Myla STORY ALC [place] #### [facility] [address] [place] [address] AST [Catalytic activity/Vol] 22 U/L Normal 15-37 [facility] Comment on above: Performed By: #### Myla STORY [place]C [place] #### [address] [place] [address] Bilirubin [Mass/Vol] 0.4 mg/dL Normal 0.2-1.0 [facility] Comment on above: Performed By: #### Myla STORY [place] #### [address] [place] [address] Calcium [Mass/Vol] 8.2 mg/dL Low 8.5-10.1 [facility] Comment on above: Performed By: #### Myla STORY [place]C [place] #### [address] [place] [address] Chloride [Moles/Vol] 109 mmol/L High 98-107 [facility] Comment on above: Performed By: #### Myla STORY [place] #### [address] [place] [address] CO2 [Moles/Vol] 20.0 mmol/L Low 21-32 [facility] Comment on above: Performed By: #### Myla STORY [place] #### [address] [place] [address] Creatinine [Mass/Vol] 1.10 mg/dL Normal 0.7-1.3 [facility] Comment on above: Performed By: #### Myla STORY [place] #### [address] [place] [address] GFR > 60.0 [facility] Comment on above: Performed By: #### Myla STORY [place] #### [address] [place] [address] GFR AM > 60.0 [facility] Comment on above: Result Comment: THE NORMAL LEVEL OF GFR VARIES ACCORDING TO AGE, SEX, AND BODY SIZE. A GFR LEVEL OF LESS THAN 60 ML/MIN REPRESENTS LOSS OF THE ADULT LEVEL OF NORMAL KIDNEY FUNCTION. Performed By: #### Myla STORY [place]C [place] #### [address] [place] [address] Globulin (S) [Mass/Vol] 2.7 g/dL Normal 2.5-4.6 [facility] Comment on above: Performed By: #### T RO ALC, [place] #### [facility] [address] [place] [address] Glucose [Mass/Vol] 101 mg/dL High 70-100 [facility] Comment on above: Performed By: #### T RO [place]C, [place] #### [facility] [address] [place] [address] Potassium [Moles/Vol] 3.4 mmol/L Low 3.5-5.1 [facility] Comment on above: Performed By: #### T RO [place]C, [place] #### [facility] [address] [facility] [address] Protein [Mass/Vol] 6.1 g/dL Normal 6.0-8.3 [facility] Comment on above: Performed By: #### T RO ALC, [place] #### [facility] [address] [facility] [address] Sodium [Moles/Vol] 141 mmol/L Normal 136-145 [facility] Comment on above: Performed By: #### T RO [place]C, [place] #### [facility] [address] [place] [address] Urea nitrogen [Mass/Vol] 15.0 mg/dL Normal 7-18 [facility] Comment on above: Performed By: #### T RO [place]C, [place] #### [facility] [address] [place] [address] Determination of erythrocyte mean corpuscular volume (MCV)Ordered By: Omkar Del Cid on 01-05-2024 MCV (RBC) [Entitic vol] 87.6 fL 80-97 [facility] ED.PDOCon 01-05-2024 ED.PDOC MATTY WHITLOCK Male [id number] Attending provider: [facility] [id number] Omkar Del Cid 1990 34 DOS: 01/05/24 [...] chemical restraint for the patient. CT head: "IMPRESSION: No acute intracranial pathology. COMMENT: Changes resultant [...] 01/05/2024 10:41:35 PM EST Workstation ID : [id number] REPORT SIGNATURE ON FILE Electronically Signed Date/Time: 01/05/242240 Dictated Date/time: 01/05/242239;" I d/w pt all imaging results. Mini resp panel NEGATIVE. [place] slip has been filled out for pt. We had reached out to the patient's mother spoke to her on the phone and she indicates the patient has had a long history with substance abuse. His urine drug screen is positive for methamphetamines. Mother states that he has been living in a homeless camp in [facility] And he has been having a lot of problems with someone named Unkati, And the patient had indicated threats of harm against this person earlier tonight. We reached out to psychiatric facilities and patient has been accepted to [facility] by Dr. Aceves. This note is completed with assistance of the [employer] dictation program. While every attempt has been made to dictate accurately, the system does make errors in transcribing the precise spoken word intended. EKG - EKG EKG Interpretation: Preliminary ED Interpretation (Sinus rhythm rate 90; no prior for comparison; QTc 446) Discharge Screen - Discharge Discharge Problem: Met (more content not included)... [facility] EGFR non- AmericanOrd ered By: Omkar Del Cid on 01-05-2024 GFR/1.73 sq M.predicted among non-blacks MDRD (S/P/Bld) [Vol rate/Area] mL/min/{1.73_m2} [facility] Eosinophil percentOrdered By : Omkar Del iCd on 01-05-2024 Basophils/100 WBC (Bld) 0.80 % 0-2 [facility] Bilirubin [Mass/Vol] 0.4 mg/dL 0.2-1.0 [facility] Chloride [Moles/Vol] 109 mmol/L High 98-107 [facility] Eosinophil percent < 3.0 mg/dL [facility] Comment on above: < 3 mg/dl NONE DETEC CHC70-370 mg/dl MAY SHOW SIGNS OF [id number] mg/dl COMATOSE LEVEL Eosinophils/100 WBC (Bld) 2.5 % 0-8 [facility] Hemoglobin (Bld) [Mass/Vol] 13.0 g/dL Low 14.0-18.0 [facility] Lymphocytes (Bld) [#/Vol] 3.2 10*3/uL 1.0-4.0 [facility] Lymphocytes/100 WBC (Bld) 29.6 % 16-48 [facility] Monocytes (Bld) [#/Vol] 0.9 10*3/uL 0.1-1.7 [facility] Monocytes/100 WBC (Bld) 8.2 % 3-9 [facility] Potassium [Moles/Vol] 3.4 mmol/L Low 3.5-5.1 [facility] Protein [Mass/Vol] 6.1 g/dL 6.0-8.3 [facility] Sodium [Moles/Vol] 141 mmol/L 136-145 [facility] Fluoroscopic guidance for salo mbar puncture (LP)Ordered By: Omkar Del Cid on 01-05-2024 Albumin [Mass/Vol] 3.4 g/dL 3.4-5.0 [facility] Basophils (Bld) [#/Vol] 0.1 10*3/uL 0-0.1 [facility] Eosinophils (Bld) [#/Vol] 0.3 10*3/uL 0.0-1.80 [facility] Fluoroscopic guidance for lumbar puncture (LP) [facility] Granulocytes/100 WBC Auto (B ld)Ordered By: Omkar Del Cid on 01-05-2024 Granulocytes/100 WBC (Bld) 58.9 % 42-80 [facility] HEAD W/O CONTRASTon 01-05-20 24 HEAD W/O CONTRAST MATTY WHITLOCK Male [id number] Ordering physician: Omkar Del Cid LOC:ER [id number] Attending physician: 1990 34 DO S: 01/05/24 __ Acc#: [id number] Exam/Proc: HEAD W/O CONTRAST Dept: COMPUTED TOMOGRAPHY [...] 01/05/2024 10:41:35 PM EST Workstation ID : [id number] REPORT SIGNATURE ON FILE Electronically Signed Date/Time: 01/05/242240 Dictated Date/time: 01/05/242239 CC: Normal [facility] Laboratory - Chemistry and C hemistry - challengeOrdered By: Omkar Del Cid on 01-05-2024 Albumin/Globulin [Mass ratio] 1.2 {ratio} 1.1-1.8 [facility] ALP [Catalytic activity/Vol] 53 U/L 45-117 [facility] ALT [Catalytic activity/Vol] 25 U/L 12-78 [facility] AST [Catalytic activity/Vol] 22 U/L 15-37 [facility] Calcium [Mass/Vol] 8.2 mg/dL Low 8.5-10.1 [facility] CO2 [Moles/Vol] 20.0 mmol/L Low 21-32 [facility] Creatinine [Mass/Vol] 1.10 mg/dL 0.7-1.3 [facility] GFR/1.73 sq M.predicted MDRD (S/P/Bld) [Vol rate/Area] mL/min/{1.73_m2} [facility] Comment on above: THE NORMAL LEVEL OF GFR VARIES ACCORDING TO AGE, SEX, AND BODY SIZE. A GFR LEVEL OF LESS THAN 60 ML/MIN REPRESENTS LOSS OF THE ADULT LEVEL OF NORMAL KIDNEY FUNCTION. Globulin (S) [Mass/Vol] 2.7 g/dL 2.5-4.6 [facility] Glucose [Mass/Vol] 101 mg/dL High 70-100 [facility] Urea nitrogen [Mass/Vol] 15.0 mg/dL 7-18 [facility] Laboratory - Hematology and Cell countsOrdered By: Omkar Del Cid on 01-05-2024 Erythrocyte distribution width (RBC) [Ratio] 15.6 % High 11.0-15.5 [facility] Granulocytes (Bld) [#/Vol] 6.4 10*3/uL 2.2-9.1 [facility] Hematocrit (Bld) [Volume fraction] 39.5 % Low 41.0-53.0 [facility] MCH (RBC) [Entitic mass] 28.8 pg 26.0-32.0 [facility] MCHC (RBC) [Mass/Vol] 32.9 g/dL 31.0-36.0 [facility] Platelet mean volume (Bld) [Entitic vol] 8.1 fL 6.4-10.5 [facility] Platelets (Bld) [#/Vol] 276 10*3/uL 140-450 [facility] RBC (Bld) [#/Vol] 4.51 10*6/uL 4.40-6.30 [facility] WBC (Bld) [#/Vol] 10.9 10*3/uL 4.0-11.0 [facility] Monocyte distribution width [Entitic volume] in Blood by AutomatedOrdered By: Omkar Del Cid on 01-05-2024 Monocyte distribution width Auto (Bld) [Entitic vol] 16.53 0-20 [facility] Comment on above: For ED adult patient s suspected of sepsis, MDW<=20.0 does not rule out sepsis or risk of sepsis No Panel InformationOrdered By: Omkar Del Cid on 01-05-2024 Troponin 5.6 pg/mL 0-78.5 [facility] Comment on above: Troponin Reference R kevin:Male: 0-78.5 pg/mL (ng/L) Female: 0-53.7 pg/mL (ng/L) Note: The new high sensitivity Troponin units are in pg/mL (ng/L) Serum or plasma anion gapOrd ered By: Omkar Del Cid on 01-05-2024 Anion gap [Moles/Vol] 15.8 mmol/L 11- [place] TROPONINon 01-05-2024 TROPONIN 5.6 pg/mL Normal 0-78.5 [facility] Comment on above: Result Comment: Trop onin Reference Range: Male: 0-78.5 pg/mL (ng/L) Female: 0-53.7 pg/mL (ng/L) Note: The new high sensitivity Troponin units are in pg/mL (ng/L) Performed By: #### T PORSHA, [place], [place] #### [address] [address] CK SerPl-cCncon 12-28-2023 CK [Catalytic activity/Vol] 407 U/L High 26-192 [facility] Comment on above: Order Comment: Speci men Type: BLOOD SPECIMENOrdering Facility: [facility] Address: [address] [place], [place] [id number] Performed By: #### 2 157-6 ####[facility]ATORYCLIA [id number] [place] [address] [place] ED NOTEon 12-28-2023 ED NOTE HNO ID: [id number] Author: KYLAH TREVIZO RN Service: Emergency Medicine Author Type: Registered Nurse Type: ED Notes Filed: 12/28/2023 02:38 Note Text: Pt provided discharge instructions and attachments, pt also provided resources for homelessness and drug abuse help. [facility] ED NOTE HNO ID: [id number] Author: KYLAH TREVIZO RN Service: Emergency Medicine Author Type: Registered Nurse Type: ED Notes Filed: 12/28/2023 02:21 Note Text: Pt speaking with intake at this time [facility] Basic metabolic 2000 panelon 12-27-2023 Anion gap [Moles/Vol] mmol/L Low 5-16 [facility] Comment on above: Order Comment: Speci men Type: BLOOD SPECIMENOrdering Facility: [facility] Address: [address] [place] [address] Performed By: #### 9 4500-6 #### [facility] CLIA [id number] [address] [place] [address] [place] Calcium [Mass/Vol] 9.8 mg/dL Normal 8.5-10.5 [facility] Comment on above: Order Comment: Speci men Type: BLOOD SPECIMENOrdering Facility: [facility] Address: [address] [place] [address] Performed By: #### 9 4500-6 #### [facility] CLIA [id number] [address] [place] [address] [place] Chloride [Moles/Vol] 109 mmol/L High 98-107 [facility] Comment on above: Order Comment: Speci men Type: BLOOD SPECIMENOrdering Facility: [facility] Address: [address] [place], [place] [id number] Performed By: #### 9 4500-6 #### [facility] CLIA [id number] [address] [place] [address] [place] CO2 [Moles/Vol] 28 mmol/L Normal 21-32 [facility] Comment on above: Order Comment: Speci men Type: BLOOD SPECIMENOrdering Facility: [facility] Address: [address] [place] [address] Performed By: #### 9 4500-6 #### [facility] CLIA [id number] [address] [place] [address] [place] Creatinine [Mass/Vol] 0.70 mg/dL Normal 0.50-1.40 [facility] Comment on above: Order Comment: Speci men Type: BLOOD SPECIMENOrdering Facility: [facility] Address: [address] [place] [address] Result Comment: Cathleen ents receiving either N-Acetylcysteine (NAC) or Metamizole prior to venipuncture, may have falsely depressed results. Performed By: #### 9 4500-6 #### [facility] CLIA [id number] [address] [place] [address] [place] Creatinine and Glomerular filtration rate.predicted panel (S/P/Bld) 126 mL/min/1.73m??? Normal >=60 [facility] Comment on above: Order Comment: Speci men Type: BLOOD SPECIMENOrdering Facility: [facility] Address: [address] [place] [address] Result Comment: Kenyetta mated Glomerular Filtration Rate [...] GFR. Performed By: #### 9 4500-6 #### [facility] CLIA [id number] [address] [place] [address] [place] Glucose [Mass/Vol] 65 mg/dL Low 70-100 [facility] Comment on above: Order Comment: Speci men Type: BLOOD SPECIMENOrdering Facility: [facility] Address: [address] [place], [place] [id number] Result Comment: The [place] [employer] Association (ADA) provides guidance for cutoff [...] Standards of Medical Care in Diabetes 2016, [place] [employer]. Diabetes Care. 2016.39(Suppl 1). Results may be falsely elevated after the administration of Sulfapyridine. Results may be falsely depressed after the administration of Sulfasalazine. Performed By: #### 9 4500-6 #### [facility] CLIA [id number] [address] [place] [address] [place] Potassium [Moles/Vol] 3.6 mmol/L Normal 3.5-5.1 [facility] Comment on above: Order Comment: Jo patton Type: BLOOD SPECIMENOrdering Facility: [facility] Address: [address] [place], [place] [phone] Performed By: #### 9 4500-6 #### [facility] CLIA [id number] [address] [place], [place] [address] [place] Sodium [Moles/Vol] 139 mmol/L Normal 136-145 [facility] Comment on above: Order Comment: Jo patton Type: BLOOD SPECIMENOrdering Facility: [facility] Address: [address] [place], [place] [phone] Performed By: #### 9 4500-6 #### [facility] CLIA [id number] [address] [place] [address] [place] Urea nitrogen [Mass/Vol] 9 mg/dL Normal 7-26 [facility] Comment on above: Order Comment: Jo patton Type: BLOOD SPECIMENOrdering Facility: [facility] Address: [address] [place] [address] Performed By: #### 9 4500-6 #### [facility] CLIA [id number] [address] [place] [address] [place] CBC W Auto Differential pane l (Bld)on 12-27-2023 Basophils (Bld) [#/Vol] 0.05 10*3/uL Normal <0.11 [facility] Comment on above: Order Comment: Speci men Type: BLOOD SPECIMEN Ordering Facility: [facility] Address: [address] [place] [address] Performed By: #### 2 4323-8, 5643-2 #### [facility] CLIA [id number] [address] [place] [address] [place] Basophils/100 WBC (Bld) 0.6 % Normal [facility] Comment on above: Order Comment: Speci men Type: BLOOD SPECIMEN Ordering Facility: [facility] Address: [address] [place] [address] Performed By: #### 2 4323-8, 5643-2 #### [facility] CLIA [id number] [address] [place] [address] [place] Differential cell count method Nom (Bld) Auto Normal [facility] Comment on above: Order Comment: Speci men Type: BLOOD SPECIMEN Ordering [facility] Address: [address] [place] [address] Performed By: #### 2 4323-8, 5643-2 #### [facility] CLIA [id number] [address] [place] [address] [place] Eosinophils (Bld) [#/Vol] 0.34 10*3/uL Normal <0.46 [facility] Comment on above: Order Comment: Speci men Type: BLOOD SPECIMEN Ordering Facility: [facility] Address: [address] [place] [address] Performed By: #### 2 4323-8, 5643-2 #### [facility] CLIA [id number] [address] [place], [place] [address] [place] Eosinophils/100 WBC (Bld) 3.9 % Normal [facility] Comment on above: Order Comment: Speci men Type: BLOOD SPECIMEN Ordering [facility]: [facility] Address: [address] [place] [address] Performed By: #### 2 4323-8, 5643-2 #### [facility] CLIA [id number] [address] [place] [address] [place] Erythrocyte distribution width (RBC) [Ratio] 14.6 % Normal 11.5-15.0 [facility] Comment on above: Order Comment: Speci men Type: BLOOD SPECIMEN Ordering Facility: [facility] Address: [address] [place] [address] Performed By: #### 2 4323-8, 5643-2 #### [facility] CLIA [id number] [address] [place] [address] [place] Hematocrit (Bld) [Volume fraction] 42.9 % Normal 39.0-51.0 [facility] Comment on above: Order Comment: Speci men Type: BLOOD SPECIMEN Ordering [facility]: [facility] Address: [address] [place] [address] Performed By: #### 2 4323-8, 5643-2 #### [facility] CLIA [id number] [address] [place] [address] [place] Hemoglobin (Bld) [Mass/Vol] 14.3 g/dL Normal 13.0-17.0 [facility] Comment on above: Order Comment: Speci men Type: BLOOD SPECIMEN Ordering [facility]: [facility] Address: [address] [place] [address] Performed By: #### 2 4323-8, 5643-2 #### [facility] CLIA [id number] [address] [place] [address] [place] Immature granulocytes (Bld) [#/Vol] 0.03 10*3/uL Normal <0.10 [facility] Comment on above: Order Comment: Speci men Type: BLOOD SPECIMEN Ordering Facility: [facility] Address: [facility] [place] [address] Performed By: #### 2 4323-8, 5643-2 #### [facility] CLIA [id number] [address] [place] [address] [place] Immature granulocytes/100 WBC (Bld) 0.3 % Normal [facility] Comment on above: Order Comment: Speci men Type: BLOOD SPECIMEN Ordering [facility]: [facility] Address: [address] [place] [address] Performed By: #### 2 4323-8, 5643-2 #### [facility] CLIA [id number] [address] [place] [address] [place] Lymphocytes (Bld) [#/Vol] 2.43 10*3/uL Normal 1.00-4.00 [facility] Comment on above: Order Comment: Speci men Type: BLOOD SPECIMEN Ordering Facility: [facility] Address: [address] [place] [address] Performed By: #### 2 4323-8, 5643-2 #### [facility] CLIA [id number] [address] [place] [address] [place] Lymphocytes/100 WBC (Bld) 28.2 % Normal [facility] Comment on above: Order Comment: Speci men Type: BLOOD SPECIMEN Ordering Facility: [facility] Address: [address] [place] [address] Performed By: #### 2 4323-8, 5643-2 #### [facility] CLIA [id number] [address] [place] [address] [place] MCH (RBC) [Entitic mass] 29.2 pg Normal 26.0-34.0 [facility] Comment on above: Order Comment: Speci men Type: BLOOD SPECIMEN Ordering Facility: [facility] Address: [address] [place] [address] Performed By: #### 2 4323-8, 5643-2 #### [facility] CLIA [id number] [address] [place] [address] [place] MCHC (RBC) [Mass/Vol] 33.3 g/dL Normal 30.5-36.0 [facility] Comment on above: Order Comment: Speci men Type: BLOOD SPECIMEN Ordering [facility]: [facility] Address: [address] [place] [address] Performed By: #### 2 4323-8, 5643-2 #### [facility] CLIA [id number] [address] [place] [address] [place] MCV (RBC) [Entitic vol] 87.6 fL Normal 80.0-100.0 [facility] Comment on above: Order Comment: Speci men Type: BLOOD SPECIMEN Ordering Facility: [facility] Address: [address] [place] [address] Performed By: #### 2 4323-8, 5643-2 #### [facility] CLIA [id number] [address] [place] [address] [place] Monocytes (Bld) [#/Vol] 0.70 10*3/uL Normal <0.87 [facility] Comment on above: Order Comment: Speci men Type: BLOOD SPECIMEN Ordering Facility: [facility] Address: [address] [place] [address] Performed By: #### 2 4323-8, 5643-2 #### [facility] CLIA [id number] [address] [place] [address] [place] Monocytes/100 WBC (Bld) 8.1 % Normal [facility] Comment on above: Order Comment: Speci men Type: BLOOD SPECIMEN Ordering Facility: [facility] Address: [address] [place] [address] Performed By: #### 2 4323-8, 5643-2 #### [facility] CLIA [id number] [address] [place] [address] [place] Neutrophils (Bld) [#/Vol] 5.06 10*3/uL Normal 1.45-7.50 [facility] Comment on above: Order Comment: Speci men Type: BLOOD SPECIMEN Ordering Facility: [facility] Address: [address] [place] [address] Performed By: #### 2 4323-8, 5643-2 #### [facility] CLIA [id number] [address] [place] [address] [place] Neutrophils/100 WBC (Bld) 58.9 % Normal [facility] Comment on above: Order Comment: Speci men Type: BLOOD SPECIMEN Ordering Facility: [facility] Address: [address] [place] [address] Performed By: #### 2 4323-8, 5643-2 #### [facility] CLIA [id number] [address] [place] [address] [place] Nucleated RBC (Bld) [#/Vol] 10*3/uL Normal <0.01 [facility] Comment on above: Order Comment: Speci men Type: BLOOD SPECIMEN Ordering Facility: [facility] Address: [address] [place] [address] Performed By: #### 2 4323-8, 5643-2 #### [facility] CLIA [id number] [address] [place] [address] [place] Nucleated RBC/100 WBC (Bld) [Ratio] 0.0 /100 WBC Normal [facility] Comment on above: Order Comment: Speci men Type: BLOOD SPECIMEN Ordering Facility: [facility] Address: [address] [place] [address] Performed By: #### 2 4323-8, 5643-2 #### [facility] CLIA [id number] [address] [place] [address] [place] Platelet mean volume (Bld) [Entitic vol] 10.0 fL Normal 9.0-12.7 [facility] Comment on above: Order Comment: Speci men Type: BLOOD SPECIMEN Ordering [facility]: [facility] Address: [address] [place] [address] Performed By: #### 2 4323-8, 5643-2 #### [facility] CLIA [id number] [address] [place] [address] [place] Platelets (Bld) [#/Vol] 305 10*3/uL Normal 150-400 [facility] Comment on above: Order Comment: Speci men Type: BLOOD SPECIMEN Ordering Facility: [facility] Address: [address] [place] [address] Performed By: #### 2 4323-8, 5643-2 #### [facility] CLIA [id number] [address] [place] [address] [facility] [place] RBC (Bld) [#/Vol] 4.90 10*6/uL Normal 4.20-6.00 [facility] Comment on above: Order Comment: Speci men Type: BLOOD SPECIMEN Ordering Facility: [facility] Address: [address] [place] [address] Performed By: #### 2 4323-8, 5643-2 #### [facility] CLIA [id number] [address] [place] [address] [place] WBC (Bld) [#/Vol] 8.61 10*3/uL Normal 3.70-11.00 [facility] Comment on above: Order Comment: Speci men Type: BLOOD SPECIMEN Ordering [facility]: [facility] Address: [address] [place] [address] Performed By: #### 2 4323-8, 5643-2 #### [facility] CLIA [id number] [address] [place] [address] [place] CK SerPl-cCncon 12-27-2023 CK [Catalytic activity/Vol] 616 U/L High 26-192 [facility] Comment on above: Order Comment: Speci men Type: BLOOD SPECIMENOrdering Facility: [facility] Address: [address] [place] [address] Performed By: #### 9 4500-6 #### [facility] CLIA [id number] [address] [place] [address] [place] CK [Catalytic activity/Vol] 717 U/L High 26-192 [facility] Comment on above: Order Comment: Speci men Type: BLOOD SPECIMEN Ordering Facility: [facility] Address: [address] [place] [address] Performed By: #### 2 4323-8, 5643-2 #### [facility] CLIA [id number] [address] [place], [place] [address] [facility] CK [Catalytic activity/Vol] 787 U/L High 26-192 [facility] Comment on above: Order Comment: Speci men Type: BLOOD SPECIMEN Ordering Facility: [facility] Address: [address] [place] [address] Performed By: #### 2 4323-8, 5643-2 #### [facility] CLIA [id number] [address] [place], [place] [address] [facility] ECG COMPLETEon 12-27-2023 ECG COMPLETE Ventricular Rate : 7 8 BPM Atrial Rate : 78 BPM P-R Interval : 142 ms QRS Duration : 94 ms Q-T Interval : 362 ms QTC Calculation(Bazett) : 412 ms Calculated P [place] : 73 degrees Calculated R [place] : 31 degrees Calculated T [place] : 35 degrees Normal sinus rhythm with sinus arrhythmia Normal ECG When compared with ECG of 26-Dec-2023 22:48, No significant change was found Confirmed by DELFINO CORTES MD ([id number]) on 12/28/2023 10:40:02 PM NAME : MATTY WHITLOCK PID : [id number] : 1990 Gender : Male Race : ORD : [id number] Procedure Date : Dec 27 2023 20:25:13 Edit Date : Dec 28 2023 22:40:08 Diagnosis: Normal sinus rhythm with sinus arrhythmia Normal ECG When compared with ECG of 26-Dec-2023 22:48, No significant change was found Confirmed by DELFINO CORTES MD ([id number]) on 12/28/2023 10:40:02 PM Test Reason : stat Location : 0 : ED EDFTD Overread By : DELFINO CORTES MD Edited By : DELFINO CORTES MD Referred By : , Acquired by : [id number], Normal [facility] ED NOTEon 12-27-2023 ED NOTE HNO ID: [id number] Author: KYLAH TREVIZO RN Service: Emergency Medicine Author Type: Registered Nurse Type: ED Notes Filed: 12/27/2023 22:05 Note Text: Pt offered and declined nicotine patch at this time [facility] ED NOTE HNO ID: [id number] Author: KYLAH TREVIZO RN Service: Emergency Medicine Author Type: Registered Nurse Type: ED Notes Filed: 12/27/2023 21:55 Note Text: Provided deemed pt capacity hold at this time, states room does not need cleared out. Pts belongings removed and placed in yellow gown. 1:1 sitter at bedside. Safety maintained. [facility] ED NOTE HNO ID: [id number] Author: KYLAH TREVIZO RN Service: Emergency Medicine Author Type: Registered Nurse Type: ED Notes Filed: 12/27/2023 21:17 Note Text: Pt provided orange juice, alfonso crackers, and peanut butter at this time. [facility] ED NOTE HNO ID: [id number] Author: KYLAH TREVIZO RN Service: Emergency Medicine Author Type: Registered Nurse Type: ED Notes Filed: 12/27/2023 21:11 Note Text: Pt unable to provide urine sample at this time [facility] ED NOTE HNO ID: [id number] Author: KYLAH TREVIZO RN Service: Emergency Medicine Author Type: Registered Nurse Type: ED Notes Filed: 12/27/2023 21:11 Note Text: PT c/o anxiety. Pt states noises make it worse. Pt states he was here last night for same and left. Pt denies SI/HI. Pt denies auditory/visual hallucinations. Pt resting in cot. Pt denies any needs a this time. [facility] ED NOTE HNO ID: [id number] Author: ELBA AVILA RN Service: ? Author Type: Registered Nurse Type: ED Notes Filed: 12/27/2023 20:54 Note Text: Bed: 06-ED Expected date: Expected time: Means of arrival: Comments: FT-D [facility] ED NOTE HNO ID: [id number] Author: VANNESA TORRES RN Service: Emergency Medicine Author Type: Registered Nurse Type: ED Notes Filed: 12/27/2023 20:01 Note Text: Pt provided scrubs, towels, soap, toothbrush and toothpaste to be able to clean up after being medically d/c by provider. [facility] ED NOTE HNO ID: [id number] Author: YUDITH SANFORD, RN Service: ? Author Type: Registered Nurse Type: ED Notes Filed: 12/27/2023 12:23 Note Text: Psych triage given pt assistance for homelessness - also security giving pt phone number for homeless assistance [facility] ED NOTE HNO ID: [id number] Author: YUDITH SANFORD, RN Service: ? Author Type: Registered Nurse Type: ED Notes Filed: 12/27/2023 12:18 Note Text: Attempted to call Pts father, he was not able to pickle processor pt. Was told to call his mother [phone] - Pts mother said she has not heard from him in weeks and will not be coming ot get him. [facility] ED NOTE HNO ID: [id number] Author: YUDITH SANFORD RN Service: ? Author Type: Registered Nurse Type: ED Notes Filed: 12/27/2023 11:51 Note Text: Pt continues to be in the bed, resting. Sitter continues to be present [facility] ED NOTE HNO ID: [id number] Author: YUDITH SANFORD RN Service: ? Author Type: Registered Nurse Type: ED Notes Filed: 12/27/2023 11:51 Note Text: [facility] ED NOTE HNO ID: [id number] Author: YUDITH SANFORD RN Service: ? Author Type: Registered Nurse Type: ED Notes Filed: 12/27/2023 11:50 Note Text: Psych triage called to evaluate the pt. [facility] ED NOTE HNO ID: [id number] Author: MAYUR DEL TORO CT Service: ? Author Type: Clinical Customs Investigator Type: ED Notes Filed: 12/27/2023 09:42 Note Text: Pt agitated at slight inconvenience, running to bathroom, tearing off gown, sporadic speech. Upon being sternly told to calm down Pt became apologetic immediately and said " That wasn't appropriate of me at all, I am sorry" [facility] ED NOTE HNO ID: [id number] Author: YUDITH SANFORD, RN Service: ? Author Type: Registered Nurse Type: ED Notes Filed: 12/27/2023 09:38 Note Text: 1st Nicotine patch was placed in sharps container. [facility] ED NOTE HNO ID: [id number] Author: YUDITH SANFORD, RN Service: ? Author Type: Registered Nurse Type: ED Notes Filed: 12/27/2023 09:24 Note Text: Pt upset because nicotine patch was not the 21 mg. Let the MD know and 21 MG patch ordered. Will remove the 1st patch as soon as the 2nd patch is available. Pt given his lunch tray. Pt is sweaty to touch. [facility] ED NOTE HNO ID: [id number] Author: YUDITH SANFORD, RN Service: ? Author Type: Registered Nurse Type: ED Notes Filed: 12/27/2023 08:19 Note Text: Called Bharat, no information for this pt at this time. [facility] ED NOTE HNO ID: [id number] Author: YUDITH SANFORD, RN Service: ? Author Type: Registered Nurse Type: ED Notes Filed: 12/27/2023 07:43 Note Text: Received report, assumed care. Checked in on pt, pt resting, breathing is not labored. Sitter present. Room appears safe, belongings are not in the room. [facility] ED NOTE HNO ID: [id number] Author: YVON PORTER RN Service: ? Author Type: Registered Nurse Type: ED Notes Filed: 12/27/2023 06:27 Note Text: Patient is sleeping at this time. Has been cooperative. Patient is in a yellow gown, room has been cleared of contents. Patient belongings labeled and with security. Patient farm facility manager is at bedside. [facility] ED PROV NOTEon 12-27-2023 ED PROV NOTE HNO ID: [id number] Author: TOYIN SAMUEL PA-C Service: ? Author Type: Physician Manager Income Tax Type: ED Provider Notes Filed: 12/28/2023 02:41 [...] for psychiatric evaluation. Patient states he is "anxious". He has been using meth and marijuana with an a stranger last night in the [facility]. States he is anxious since then. Reports that his anxiety is due to being homeless. He has been homeless for several years. States he needs a place to sleep and shower. States he has tried previous homeless shelters however he has been "denied" from them. States he does not want [...] 63.5 kg (140 lb) 1.702 m (5' 7") General: alert, disheveled HEENT: atraumatic, EOMI, no [...] as of 12/28/23 0241 Toyin Samuel's Documentation ThuDec 28, 2023 0221 Discussed case with psych intake. They do not believe patient meets any criteria for admission. States that he is not manic, his speech is not pressured, he remains calm and speech is of appropriate volume. States that he explicitly expressed that he just wanted a place to sleep. He will be discharged at (more content not included)... [facility] ED PROV NOTE HNO ID: [id number] Author: MARISA GOMEZ MD Service: Emergency Medicine [...] AM PAGER/CONTACT #: MARISA GOMEZ 12/27/23 0630 [facility] ED Triage Noteon 12-27-2023 ED Triage Note HNO ID: [id number] Author: ENRIQUE URRUTIA PA-C Service: ? Author Type: Physician Manager Income Tax Type: ED Triage Notes Filed: 12/27/2023 20:06 [...] ECG COMPLETE SIGNATURE: Enrique Urrutia PA-C Normal [facility] Ethanol SerPl-mCncon 024 Ethanol [Mass/Vol] mg/dL Normal <0.010 [facility] Comment on above: Order Comment: Speci men Type: BLOOD SPECIMENOrdering Facility: [facility] Address: [address] [place] [address] Performed By: #### 9 4500-6 #### [facility] CLIA [id number] [address] [id number] [place] HIGH SENSITIVITY TROPONIN Io n 12-27-2023 Tropinin I.cardiac panel High sensitivity method 2.8 pg/mL Normal 0.0-54.0 [facility] Comment on above: Order Comment: Speci men Type: BLOOD SPECIMEN Ordering Facility: [facility] Address: [address] [place] [address] Performed By: #### 2 4323-8, 5643-2 #### [facility] CLIA [id number] [address] [place], [place] [address] [place] TOXICOLOGY SCREEN, ROUTINE U RINEon 12-27-2023 Amphetamines Confirm (U) [Mass/Vol] Positive Abnormal Negative [facility] Comment on above: Order Comment: Speci men Type: URINE SPECIMENOrdering Facility: [facility] Address: [address] [place] [address] Result Comment: Cuto ff threshold at 1000 ng/mL. Performed By: #### 9 4500-6 #### [facility] CLIA [id number] [address] [place], [place] [address] [place] BARBITURATES, URINE Negative Normal Negative [facility] Comment on above: Order Comment: Speci men Type: URINE SPECIMENOrdering Facility: [facility] Address: [address] [place] [address] Result Comment: Cuto ff threshold at 200 ng/mL. Performed By: #### 9 4500-6 #### [facility] CLIA [id number] [address] [place] [address] [place] BENZODIAZEPINES, UR Negative Normal Negative [facility] Comment on above: Order Comment: Speci men Type: URINE SPECIMENOrdering Facility: [facility] Address: [address] [place] [address] Result Comment: Cuto ff threshold at 200 ng/mL. Performed By: #### 9 4500-6 #### [facility] CLIA [id number] [address] [place] [address] [place] Cannabinoids Screen Ql (U) Positive Abnormal Negative [facility] Comment on above: Order Comment: Speci men Type: URINE SPECIMENOrdering Facility: [facility] Address: [address] [place] [address] Result Comment: Cuto ff threshold at 50 ng/mL. Performed By: #### 9 4500-6 #### [facility] CLIA [id number] [address] [place] [address] [place] Cocaine Ql (U) Positive Abnormal Negative [facility] Comment on above: Order Comment: Speci men Type: URINE SPECIMENOrdering Facility: [facility] Address: [address] [place] [address] Result Comment: Cuto ff threshold at 300 ng/mL. Performed By: #### 9 4500-6 #### [facility] CLIA [id number] [address] [place] [address] [place] Opiates Screen Ql (U) Negative Normal Negative [facility] Comment on above: Order Comment: Speci men Type: URINE SPECIMENOrdering Facility: [facility] Address: [address] [place] [address] Result Comment: Cuto ff threshold at 300 ng/mL. Performed By: #### 9 4500-6 #### [facility] CLIA [id number] [address] [place] [address] [place] Phencyclidine Ql (U) Negative Normal Negative [facility] Comment on above: Order Comment: Speci men Type: URINE SPECIMENOrdering Facility: [facility] Address: [address] [place] [address] Result Comment: Cuto ff threshold at 25 ng/mL. Performed By: #### 9 4500-6 #### [facility] CLIA [id number] [address] [place] [address] Urinalysis complete panel (U )on 12-27-2023 Bacteria LM.HPF (Urine sed) [#/Area] None Seen Normal None Seen [facility] Comment on above: Order Comment: Speci men Type: URINE SPECIMENOrdering Facility: [facility] Address: [address] [place] [address] Performed By: #### 9 4500-6 #### [facility] CLIA [id number] [address] [place] [address] Bilirubin Ql (U) Negative Normal Negative [facility] Comment on above: Order Comment: Speci men Type: URINE SPECIMENOrdering Facility: [facility] Address: [address] [place] [address] Performed By: #### 9 4500-6 #### [facility] CLIA [id number] [address] [place] [address] [place] Clarity (Unsp spec) Clear Normal Clear [facility] Comment on above: Order Comment: Speci men Type: URINE SPECIMENOrdering Facility: [facility] Address: [address] [place] [address] Performed By: #### 9 4500-6 #### [facility] CLIA [id number] [address] [place] [address] [place] Color (U) Straw Normal Yellow [facility] Comment on above: Order Comment: Speci men Type: URINE SPECIMENOrdering Facility: [facility] Address: [address] [place] [address] Performed By: #### 9 4500-6 #### [facility] CLIA [id number] [address] [place] [address] [place] Epithelial cells LM.HPF (Urine sed) [#/Area] Few Normal [facility] Comment on above: Order Comment: Speci men Type: URINE SPECIMENOrdering Facility: [facility] Address: [address] [place] [address] Performed By: #### 9 4500-6 #### [facility] CLIA [id number] [address] [place], [place] [address] [place] Glucose Test strip (U) [Mass/Vol] Negative Normal Negative [facility] Comment on above: Order Comment: Speci men Type: URINE SPECIMENOrdering Facility: [facility] Address: [address] [place] [address] Performed By: #### 9 4500-6 #### [facility] CLIA [id number] [address] [place] [address] [place] Hemoglobin Ql (U) Negative Normal Negative [facility] Comment on above: Order Comment: Speci men Type: URINE SPECIMENOrdering Facility: [facility] Address: [address] [place] [address] Performed By: #### 9 4500-6 #### [facility] CLIA [id number] [address] [place] [address] [place] Ketones Ql (U) Negative Normal Negative [facility] Comment on above: Order Comment: Speci men Type: URINE SPECIMENOrdering Facility: [facility] Address: [address] [place] [address] Performed By: #### 9 4500-6 #### [facility] CLIA [id number] [address] [place] [address] [place] Leukocyte esterase Test strip Ql (U) Negative Normal Negative [facility] Comment on above: Order Comment: Speci men Type: URINE SPECIMENOrdering Facility: [facility] Address: [address] [place] [address] Performed By: #### 9 4500-6 #### [facility] CLIA [id number] [address] [place], [place] [address] [place] Nitrite Ql (U) Negative Normal Negative [facility] Comment on above: Order Comment: Speci men Type: URINE SPECIMENOrdering Facility: [facility] Address: [address] [place] [address] Performed By: #### 9 4500-6 #### [facility] CLIA [id number] [address] [place] [address] [place] pH (U) 6.0 [pH] Normal 5.0-8.0 [facility] Comment on above: Order Comment: Speci men Type: URINE SPECIMENOrdering Facility: [facility] Address: [address] [place] [address] Performed By: #### 9 4500-6 #### [facility] CLIA [id number] [address] [place] [address] [place] Protein (U) [Mass/Vol] Negative Normal Negative [facility] Comment on above: Order Comment: Speci men Type: URINE SPECIMENOrdering Facility: [facility] Address: [address] [place] [address] Performed By: #### 9 4500-6 #### [facility] CLIA [id number] [address] [place] [address] [place] RBC LM.HPF (Urine sed) [#/Area] 0-3 /HPF Normal 0-3 /HPF [facility] Comment on above: Order Comment: Speci men Type: URINE SPECIMENOrdering Facility: [facility] Address: [address] [place] [address] Performed By: #### 9 4500-6 #### [facility] CLIA [id number] [address] [place] [address] [place] Specific gravity (U) [Rel density] 1.009 Normal 1.005-1.030 [facility] Comment on above: Order Comment: Speci men Type: URINE SPECIMENOrdering Facility: [facility] Address: [address] [place] [address] Performed By: #### 9 4500-6 #### [facility] CLIA [id number] [address] [place] [address] [place] Urobilinogen Ql (U) Negative Normal Negative [facility] Comment on above: Order Comment: Speci men Type: URINE SPECIMENOrdering Facility: [facility] Address: [address] [place] [address] Performed By: #### 9 4500-6 #### [facility] CLIA [id number] [address] [place] [address] [place] WBC LM.HPF (Urine sed) [#/Area] 0-5 /HPF Normal 0-5 /HPF [facility] Comment on above: Order Comment: Speci men Type: URINE SPECIMENOrdering Facility: [facility] Address: [address] [place] [address] Performed By: #### 9 4500-6 #### [facility] CLIA [id number] [address] [place] [address] [place] CBC panel Auto (Bld)on 12-25 Erythrocyte distribution width (RBC) [Ratio] 14.4 % Normal 11.5-15.0 [facility] Comment on above: Order Comment: Speci men Type: URINE SPECIMEN Ordering [facility]: [facility] Address: [address] [place] [address] Performed By: #### U TOX2 #### [facility] CLIA [id number] [address] [place] [address] [place] Hematocrit (Bld) [Volume fraction] 40.8 % Normal 39.0-51.0 [facility] Comment on above: Order Comment: Speci men Type: URINE SPECIMEN Ordering Facility: [facility] Address: [address] [place] [address] Performed By: #### U TOX2 #### [facility] CLIA [id number] [address] [place] [address] [place] Hemoglobin (Bld) [Mass/Vol] 13.7 g/dL Normal 13.0-17.0 [facility] Comment on above: Order Comment: Speci men Type: URINE SPECIMEN Ordering [facility]: [facility] Address: [address] [place] [address] Performed By: #### U TOX2 #### [facility] CLIA [id number] [address] [place] [address] MCH (RBC) [Entitic mass] 28.9 pg Normal 26.0-34.0 [facility] Comment on above: Order Comment: Speci men Type: URINE SPECIMEN [facility]ing [facility]: [facility] Address: [address] [place] [address] Performed By: #### U TOX2 #### [facility] CLIA [id number] [address] [place] [address] [place] MCHC (RBC) [Mass/Vol] 33.6 g/dL Normal 30.5-36.0 [facility] Comment on above: Order Comment: Speci men Type: URINE SPECIMEN [facility]ing [facility]: [facility] Address: [address] [place] [address] Performed By: #### U TOX2 #### [facility] CLIA [id number] [address] [place] [address] [place] MCV (RBC) [Entitic vol] 86.1 fL Normal 80.0-100.0 [facility] Comment on above: Order Comment: Speci men Type: URINE SPECIMEN Ordering [facility]: [facility] Address: [address] [place] [address] Performed By: #### U TOX2 #### [facility] CLIA [id number] [address] [place] [address] [place] Nucleated RBC (Bld) [#/Vol] 10*3/uL Normal <0.01 [facility] Comment on above: Order Comment: Speci men Type: URINE SPECIMEN Ordering Facility: [facility] Address: [address] [place] [address] Performed By: #### U TOX2 #### [facility] CLIA [id number] [address] [place] [address] [place] Platelet mean volume (Bld) [Entitic vol] 9.7 fL Normal 9.0-12.7 [facility] Comment on above: Order Comment: Speci men Type: URINE SPECIMEN Ordering Facility: [facility] Address: [address] [place] [address] Performed By: #### U TOX2 #### [facility] CLIA [id number] [address] [place] [address] [place] Platelets (Bld) [#/Vol] 299 10*3/uL Normal 150-400 [facility] Comment on above: Order Comment: Speci men Type: URINE SPECIMEN Ordering Facility: [facility] Address: [address] [place] [address] Performed By: #### U TOX2 #### [facility] CLIA [id number] [address] [place] [address] [facility] [place] RBC (Bld) [#/Vol] 4.74 10*6/uL Normal 4.20-6.00 [facility] Comment on above: Order Comment: Speci men Type: URINE SPECIMEN Ordering Facility: [facility] Address: [address] [place] [address] Performed By: #### U TOX2 #### [facility] CLIA [id number] [address] [place] [address] WBC (Bld) [#/Vol] 10.95 10*3/uL Normal 3.70-11.00 [facility] Comment on above: Order Comment: Speci men Type: URINE SPECIMEN [facility]ing [facility]: [facility] Address: [address] [place] [address] Performed By: #### U TOX2 #### [facility] CLIA [id number] [address] [place] [address] [place] CK SerPl-cCncon 12-26-2023 CK [Catalytic activity/Vol] 1034 U/L High 26-192 [facility] Comment on above: Order Comment: Speci men Type: URINE SPECIMEN Ordering Facility: [facility] Address: [address] [place] [address] Result Comment: CRIT ICAL Performed By: #### U TOX2 #### [facility] CLIA [id number] [address] [place] [address] [place] Comprehensive metabolic 2000 panelon 12-26-2023 Albumin [Mass/Vol] 3.9 g/dL Normal 3.2-5.0 [facility] Comment on above: Order Comment: Speci men Type: URINE SPECIMEN Ordering Facility: [facility] Address: [address] [place] [address] Performed By: #### U TOX2 #### [facility] CLIA [id number] [address] [place] [address] [place] ALP [Catalytic activity/Vol] 65 U/L Normal 45-117 [facility] Comment on above: Order Comment: Speci men Type: URINE SPECIMEN Ordering Facility: [facility] Address: [address] [place] [address] Performed By: #### U TOX2 #### [facility] CLIA [id number] [address] [place] [address] [place] ALT [Catalytic activity/Vol] 30 U/L Normal 13-61 [facility] Comment on above: Order Comment: Speci men Type: URINE SPECIMEN Ordering Facility: [facility] Address: [address] [place] [address] Result Comment: Resu lts may be falsely depressed after the administration of Sulfasalazine and/or Sulfapyridine. Performed By: #### U TOX2 #### [facility] CLIA [id number] [address] [place] [address] [place] Anion gap [Moles/Vol] 5 mmol/L Normal 5-16 [facility] Comment on above: Order Comment: Speci men Type: URINE SPECIMEN Ordering Facility: [facility] Address: [address] [place] [address] Performed By: #### U TOX2 #### [facility] CLIA [id number] [address] [place] [address] [place] AST [Catalytic activity/Vol] 39 U/L High 8-34 [facility] Comment on above: Order Comment: Speci men Type: URINE SPECIMEN Ordering Facility: [facility] Address: [address] [place] [address] Result Comment: Resu lts may be falsely depressed after the administration of Sulfasalazine and/or Sulfapyridine. Performed By: #### U TOX2 #### [facility] CLIA [id number] [address] [place] [address] [place] Bilirubin [Mass/Vol] 0.6 mg/dL Normal 0.2-1.0 [facility] Comment on above: Order Comment: Speci men Type: URINE SPECIMEN Ordering Facility: [facility] Address: [address] [place] [address] Performed By: #### U TOX2 #### [facility] CLIA [id number] [address] [place] [address] [place] Calcium [Mass/Vol] 9.9 mg/dL Normal 8.5-10.5 [facility] Comment on above: Order Comment: Speci men Type: URINE SPECIMEN Ordering Facility: [facility] Address: [address] [place] [address] Performed By: #### U TOX2 #### [facility] CLIA [id number] [address] [place] [address] [place] Chloride [Moles/Vol] 106 mmol/L Normal 98-107 [facility] Comment on above: Order Comment: Speci men Type: URINE SPECIMEN Ordering Facility: [facility] Address: [address] [place] [address] Performed By: #### U TOX2 #### [facility] CLIA [id number] [address] [place] [address] [place] CO2 [Moles/Vol] 27 mmol/L Normal 21-32 [facility] Comment on above: Order Comment: Speci men Type: URINE SPECIMEN Ordering Facility: [facility] Address: [address] [place] [address] Performed By: #### U TOX2 #### [facility] CLIA [id number] [address] [place] [address] [place] Creatinine [Mass/Vol] 0.83 mg/dL Normal 0.50-1.40 [facility] Comment on above: Order Comment: Speci men Type: URINE SPECIMEN Ordering Facility: [facility] Address: [address] [place], [place] [id number] Result Comment: Cathleen ents receiving either N-Acetylcysteine (NAC) or Metamizole prior to venipuncture, may have falsely depressed results. Performed By: #### U TOX2 #### [facility] CLIA [id number] [address] [place] [address] [place] Creatinine and Glomerular filtration rate.predicted panel (S/P/Bld) 119 mL/min/1.73m??? Normal >=60 [facility] Comment on above: Order Comment: Jo abdi Type: URINE SPECIMEN Ordering Facility: [facility] Address: [address] [place] [address] Result Comment: Kenyetta mated Glomerular Filtration Rate [...] GFR. Performed By: #### U TOX2 #### [facility] CLIA [id number] [address] [place] [address] [place] Glucose [Mass/Vol] 94 mg/dL Normal 70-100 [facility] Comment on above: Order Comment: Serinamike patton Type: URINE SPECIMEN Ordering Facility: [facility] Address: [address] [place] [address] Result Comment: The [place] [employer] (ADA) provides guidance for cutoff [...] Standards of Medical Care in Diabetes 2016, [place] [employer]. Diabetes Care. 2016.39(Suppl 1). Results may be falsely elevated after the administration of Sulfapyridine. Results may be falsely depressed after the administration of Sulfasalazine. Performed By: #### U TOX2 #### [facility] CLIA [id number] [address] [place] [address] [place] Potassium [Moles/Vol] 3.9 mmol/L Normal 3.5-5.1 [facility] Comment on above: Order Comment: Speci men Type: URINE SPECIMEN Ordering Facility: [facility] Address: [address] [place] [address] Performed By: #### U TOX2 #### [facility] CLIA [id number] [address] [place] [address] [place] Protein [Mass/Vol] 6.5 g/dL Normal 6.0-8.5 [facility] Comment on above: Order Comment: Speci men Type: URINE SPECIMEN Ordering Facility: [facility] Address: [address] [place] [address] Performed By: #### U TOX2 #### [facility] CLIA [id number] [address] [place] [address] [place] Sodium [Moles/Vol] 138 mmol/L Normal 136-145 [facility] Comment on above: Order Comment: Speci men Type: URINE SPECIMEN Ordering Facility: [facility] Address: [address] [place] [address] Performed By: #### U TOX2 #### [facility] CLIA [id number] [address] [place] [address] [place] Urea nitrogen [Mass/Vol] 12 mg/dL Normal 7-26 [facility] Comment on above: Order Comment: Speci men Type: URINE SPECIMEN Ordering Facility: [facility] Address: [address] [place] [address] Performed By: #### U TOX2 #### [facility] CLIA [id number] [address] [place] [address] [place] ECG COMPLETEon 12-26-2023 ECG COMPLETE Ventricular Rate : 9 4 BPM Atrial Rate : 94 BPM P-R Interval : 136 ms QRS Duration : 92 ms Q-T Interval : 348 ms QTC Calculation(Bazett) : 435 ms Calculated P [place] : 76 degrees Calculated R [place] : 71 degrees Calculated T [place] : 42 degrees Normal sinus rhythm with sinus arrhythmia Normal ECG When compared with ECG of 14-Sep-2023 17:02, No significant change was found Confirmed by DELFINO CORTES MD ([id number]) on 12/27/2023 12:16:51 PM NAME : MATTY WHITLOCK PID : [id number] : 1990 Gender : Male Race : ORD : [id number] Procedure Date : Dec 26 2023 22:48:15 Edit Date : Dec 27 2023 12:16:55 Diagnosis: Normal sinus rhythm with sinus arrhythmia Normal ECG When compared with ECG of 14-Sep-2023 17:02, No significant change was found Confirmed by DELFINO CORTES MD ([id number]) on 12/27/2023 12:16:51 PM Test Reason : STAT Location : 0 : ED [id number] Overread By : DELFINO CORTES MD Edited By : DELFINO CORTES MD Referred By : , Acquired by : [id number], [facility] ED NOTEon 12-26-2023 ED NOTE HNO ID: [id number] Author: EVAN CHAUDHARI, Medic Service: ? Author Type: Supervisor Communications And Signals and Customs Investigator Type: ED Notes Filed: 12/26/2023 23:29 Note Text: Pt threw cheeze its across the room. Pt asked for urinal. Pt tprovided with urinal. Pt picking up cheese its when told to. Pt appears to be getting agitated from noises from outside the room. Rn notified [facility] ED NOTE HNO ID: [id number] Author: EVAN CHAUDHARI, Medic Service: ? Author Type: Supervisor Communications And Signals and Customs Investigator Type: ED Notes Filed: 12/26/2023 22:58 Note [...] of ideas but remains calm and cooperative. [facility] [facility] ED NOTE HNO ID: [id number] Author: MARTITA ECKERT RN Service: ? Author Type: Registered Nurse Type: ED Notes Filed: 12/26/2023 22:47 Note Text: Pt diminished capacity hold at this time, pt changed into yellow gown, belongings secured with security, room cleared out per protocol, sitter at bedside, safety maintained. [facility] ED NOTE HNO ID: [id number] Author: SHANE LNADA Medic Service: ? Author Type: Supervisor Communications And Signals and Customs Investigator Type: ED Notes Filed: 12/26/2023 22:19 Note Text: Bed: 29-ED Expected date: Expected time: Means of arrival: Comments: Jacqui [facility] ED PROV NOTEon 12-26-2023 ED PROV NOTE HNO ID: [id number] Author: TUTU RILEY DO Service: ? Author [...] 63.5 kg (140 lb) 1.727 m (5' 8") Physical Exam Vitals and nursing note reviewed. [...] Capacity (This order expires after 24 hours) [[id number]] Continuous x 24 hours Expiring References: Against Medical Advice (AMA) Policy Patients Without Surrogate Standard Operating Procedure Against Medical Advice (AMA) Policy ([place] Only) Question Answer Comment I have evaluated [...] the e (more content not included)... Normal [facility] Ethanol SerPl-ncon 024 Ethanol [Mass/Vol] mg/dL Normal <0.010 [facility] Comment on above: Order Comment: Speci men Type: URINE SPECIMEN Ordering Facility: [facility] Address: [address] [place] [address] Performed By: #### U TOX2 #### [facility] CLIA [id number] [address] [place] [address] [place] TOXICOLOGY SCREEN, ROUTINE U RINEon 12-26-2023 Amphetamines Confirm (U) [Mass/Vol] Positive Abnormal Negative [facility] Comment on above: Order Comment: Speci men Type: URINE SPECIMEN Ordering Facility: [facility] Address: [address] [place] [address] Result Comment: Cuto ff threshold at 1000 ng/mL. Performed By: #### U TOX2 #### [facility] CLIA [id number] [address] [place] [address] [place] BARBITURATES, URINE Negative Normal Negative [facility] Comment on above: Order Comment: Speci men Type: URINE SPECIMEN Ordering Facility: [facility] Address: [address] [place] [address] Result Comment: Cuto ff threshold at 200 ng/mL. Performed By: #### U TOX2 #### [facility] CLIA [id number] [address] [place] [address] [place] BENZODIAZEPINES, UR Negative Normal Negative [facility] Comment on above: Order Comment: Speci men Type: URINE SPECIMEN Ordering Facility: [facility] Address: [address] [place] [address] Result Comment: Cuto ff threshold at 200 ng/mL. Performed By: #### U TOX2 #### [facility] CLIA [id number] [address] [place] [address] [place] Cannabinoids Screen Ql (U) Positive Abnormal Negative [facility] Comment on above: Order Comment: Speci men Type: URINE SPECIMEN Ordering Facility: [facility] Address: [address] [place] [address] Result Comment: Cuto ff threshold at 50 ng/mL. Performed By: #### U TOX2 #### [facility] CLIA [id number] [address] [place] [address] [place] Cocaine Ql (U) Positive Abnormal Negative [facility] Comment on above: Order Comment: Speci men Type: URINE SPECIMEN Ordering Facility: [facility] Address: [address] [place] [address] Result Comment: Cuto ff threshold at 300 ng/mL. Performed By: #### U TOX2 #### [facility] CLIA [id number] [address] [place] [address] [place] Opiates Screen Ql (U) Negative Normal Negative [facility] Comment on above: Order Comment: Speci men Type: URINE SPECIMEN Ordering Facility: [facility] Address: [address] [place] [address] Result Comment: Cuto ff threshold at 300 ng/mL. Performed By: #### U TOX2 #### [facility] CLIA [id number] [address] Phencyclidine Ql (U) Negative Normal Negative [facility] Comment on above: Order Comment: Speci men Type: URINE SPECIMEN Ordering Facility: [facility] Address: [address] [place] [address] Result Comment: Cuto ff threshold at 25 ng/mL. Performed By: #### U TOX2 #### [facility] CLIA [id number] [address] [place] [address] OF [place] Urinalysis complete panel (U )on 12-26-2023 Bacteria LM.HPF (Urine sed) [#/Area] Rare Abnormal None Seen [facility] Comment on above: Order Comment: Speci men Type: URINE SPECIMEN Ordering Facility: [facility] Address: [address] [place] [address] Performed By: #### U TOX2 #### [facility] CLIA [id number] [address] [place] [address] Bilirubin Ql (U) Negative Normal Negative [facility] Comment on above: Order Comment: Speci men Type: URINE SPECIMEN Ordering Facility: [facility] Address: [address] [place] [address] Performed By: #### U TOX2 #### [facility] CLIA [id number] [address] [place] [address] Clarity (Unsp spec) Clear Normal Clear [facility] Comment on above: Order Comment: Speci men Type: URINE SPECIMEN Ordering Facility: [facility] Address: [address] [place] [address] Performed By: #### U TOX2 #### [facility] CLIA [id number] [address] [place] [address] [place] Color (U) Colorless Normal Yellow [facility] Comment on above: Order Comment: Speci men Type: URINE SPECIMEN Ordering Facility: [facility] Address: [address] [place] [address] Performed By: #### U TOX2 #### [facility] CLIA [id number] [address] [place] [address] [place] Epithelial cells LM.HPF (Urine sed) [#/Area] None Seen Normal [facility] Comment on above: Order Comment: Speci men Type: URINE SPECIMEN Ordering Facility: [facility] Address: [address] [place] [address] Performed By: #### U TOX2 #### [facility] CLIA [id number] [address] [place] [address] [place] Glucose Test strip (U) [Mass/Vol] Negative Normal Negative [facility] Comment on above: Order Comment: Speci men Type: URINE SPECIMEN Ordering Facility: [facility] Address: [address] [place] [address] Performed By: #### U TOX2 #### [facility] CLIA [id number] [address] [place] [address] [place] Hemoglobin Ql (U) Negative Normal Negative [facility] Comment on above: Order Comment: Speci men Type: URINE SPECIMEN Ordering Facility: [facility] Address: [address] [place] [address] Performed By: #### U TOX2 #### [facility] CLIA [id number] [address] [place] [address] [place] Ketones Ql (U) Negative Normal Negative [facility] Comment on above: Order Comment: Speci men Type: URINE SPECIMEN Ordering Facility: [facility] Address: [address] [place] [address] Performed By: #### U TOX2 #### [facility] CLIA [id number] [address] [place] [address] [place] Leukocyte esterase Test strip Ql (U) Negative Normal Negative [facility] Comment on above: Order Comment: Speci men Type: URINE SPECIMEN Ordering Facility: [facility] Address: [address] [place] [address] Performed By: #### U TOX2 #### [facility] CLIA [id number] [address] [place] [address] [place] Nitrite Ql (U) Negative Normal Negative [facility] Comment on above: Order Comment: Speci men Type: URINE SPECIMEN Ordering Facility: [facility] Address: [address] [place] [address] Performed By: #### U TOX2 #### [facility] CLIA [id number] [address] [place] [address] [place] pH (U) 7.0 [pH] Normal 5.0-8.0 [facility] Comment on above: Order Comment: Speci men Type: URINE SPECIMEN Ordering Facility: [facility] Address: [address] [place] [address] Performed By: #### U TOX2 #### [facility] CLIA [id number] [address] [place] [address] [place] Protein (U) [Mass/Vol] Negative Normal Negative [facility] Comment on above: Order Comment: Speci men Type: URINE SPECIMEN Ordering Facility: [facility] Address: [address] [place] [address] Performed By: #### U TOX2 #### [facility] CLIA [id number] [address] [place] [address] [place] RBC LM.HPF (Urine sed) [#/Area] 0-3 /HPF Normal 0-3 /HPF [facility] Comment on above: Order Comment: Speci men Type: URINE SPECIMEN Ordering Facility: [facility] Address: [address] [place] [address] Performed By: #### U TOX2 #### [facility] CLIA [id number] [address] [place] [address] [place] Specific gravity (U) [Rel density] <1.005 Low 1.005-1.030 [facility] Comment on above: Order Comment: Speci men Type: URINE SPECIMEN Ordering Facility: [facility] Address: [address] [place] [address] Performed By: #### U TOX2 #### [facility] CLIA [id number] [address] [place] [address] [place] Urobilinogen Ql (U) Negative Normal Negative [facility] Comment on above: Order Comment: Speci men Type: URINE SPECIMEN Ordering Facility: [facility] Address: [address] [place] [address] Performed By: #### U TOX2 #### [facility] CLIA [id number] [address] [place] [address] [place] WBC LM.HPF (Urine sed) [#/Area] 0-5 /HPF Normal 0-5 /HPF [facility] Comment on above: Order Comment: Speci men Type: URINE SPECIMEN Ordering Facility: [facility] Address: [address] [id number] Performed By: #### U TOX2 #### [facility] CLIA [id number] [address] [place], [place] [address] [place] ALCOHOL,PLASMAon 11-30-2023 ALCOHOL,PLASMA < 3.0 Normal [facility] Comment on above: Result Comment: < 3 mg/dl NONE DETECTED 50-100 mg/dl MAY SHOW SIGNS OF INTOXICATION 300-500 mg/dl COMATOSE LEVEL Performed By: #### A LC BMP #### [facility] [address] [place] [address] BASIC METABOLIC PANELon Anion gap [Moles/Vol] 11.1 mmol/L Normal 11-23 [place] Comment on above: Performed By: #### A LC BMP #### [facility] [address] [place] [address] Calcium [Mass/Vol] 8.8 mg/dL Normal 8.5-10.1 [facility] Comment on above: Performed By: #### A LC, BMP #### [facility] [address] [place] [address] Chloride [Moles/Vol] 105 mmol/L Normal 98-107 [facility] Comment on above: Performed By: #### A LC, BMP #### [facility] [address] [place] [address] CO2 [Moles/Vol] 27.0 mmol/L Normal 21-32 [facility] Comment on above: Performed By: #### A LC, BMP #### [facility] [address] [place] [address] Creatinine [Mass/Vol] 1.00 mg/dL Normal 0.7-1.3 [facility] Comment on above: Performed By: #### A ALIA BMP #### [facility] [address] [place] [address] GFR > 60.0 [facility] Comment on above: Performed By: #### A ALIA BMP #### [address] [address] GFR AM > 60.0 [facility] Comment on above: Result Comment: THE NORMAL LEVEL OF GFR VARIES ACCORDING TO AGE, SEX, AND BODY SIZE. A GFR LEVEL OF LESS THAN 60 ML/MIN REPRESENTS LOSS OF THE ADULT LEVEL OF NORMAL KIDNEY FUNCTION. Performed By: #### A ALIA BMP #### [address] [address] Glucose [Mass/Vol] 107 mg/dL High 70-100 [facility] Comment on above: Performed By: #### A ALIA BMP #### [address] [address] Potassium [Moles/Vol] 3.8 mmol/L Normal 3.5-5.1 [facility] Comment on above: Performed By: #### A ALIA BMP #### [address] [address] Sodium [Moles/Vol] 139 mmol/L Normal 136-145 [facility] Comment on above: Performed By: #### A ALIA BMP #### [address] [address] Urea nitrogen [Mass/Vol] 17.0 mg/dL Normal 7-18 [facility] Comment on above: Performed By: #### A ALIA BMP #### [address] [address] CBC with AUTO DIFFon 024 BAS0 % 0.50 % Normal 0-2 [facility] Comment on above: Performed By: #### C BC #### [facility] [address] [place] [address] Basophils (Bld) [#/Vol] 0.1 10*3/uL Normal 0-0.1 [facility] Comment on above: Performed By: #### C BC #### [address] [address] Eosinophils (Bld) [#/Vol] 0.4 10*3/uL Normal 0.0-1.80 [facility] Comment on above: Performed By: #### C BC #### [facility] [address] [place] [address] Eosinophils/100 WBC (Bld) 3.2 % Normal 0-8 [facility] Comment on above: Performed By: #### C BC #### [facility] [address] [place] [address] GRAN # 7.4 K/uL Normal 2.2-9.1 [facility] Comment on above: Performed By: #### C BC #### [facility] [address] [place] [address] GRAN % 65.2 % Normal 42-80 [facility] Comment on above: Performed By: #### C BC #### [facility] [address] [place] [address] Hematocrit (Bld) [Volume fraction] 39.8 % Low 41.0-53.0 [facility] Comment on above: Performed By: #### C BC #### [address] [place] [address] Hemoglobin (Bld) [Mass/Vol] 13.3 g/dL Low 14.0-18.0 [facility] Comment on above: Performed By: #### C BC #### [address] [place] [address] Lymphocytes (Bld) [#/Vol] 2.9 10*3/uL Normal 1.0-4.0 [facility] Comment on above: Performed By: #### C BC #### [address] [place] [address] Lymphocytes/100 WBC (Bld) 25.0 % Normal 16-48 [facility] Comment on above: Performed By: #### C BC #### [facility] [address] [place] [address] MCV (RBC) [Entitic vol] 86.6 fL Normal 80-97 [facility] Comment on above: Performed By: #### C BC #### [address] [place] [address] MEAN CORPUSCULAR HGB 29.0 pg Normal 26.0-32.0 [facility] on above: Performed By: #### C BC #### [address] [place] [address] MEAN CORPUSCULAR HGB CONC 33.4 g/dL Normal 31.0-36.0 [facility] Comment on above: Performed By: #### C BC #### [facility] [address] [place] [address] MONO DISTRIB WIDTH 17.47 Normal 0-20 [facility] Comment on above: Result Comment: For ED adult patients suspected of sepsis, MDW<=20.0 does not rule out sepsis or risk of sepsis Performed By: #### C BC #### [facility] [address] [place] [address] Monocytes (Bld) [#/Vol] 0.7 10*3/uL Normal 0.1-1.7 [facility] Comment on above: Performed By: #### C BC #### [facility] [address] [place] [address] Monocytes/100 WBC (Bld) 6.1 % Normal 3-9 [facility] Comment on above: Performed By: #### C BC #### [address] [place] [address] Platelet mean volume (Bld) [Entitic vol] 8.8 fL Normal 6.4-10.5 [facility] Comment on above: Performed By: #### C BC #### [facility] [address] [place] [address] Platelets (Bld) [#/Vol] 232 10*3/uL Normal 140-450 [facility] Comment on above: Performed By: #### C BC #### [address] [place] [address] RBC (Bld) [#/Vol] 4.60 10*6/uL Normal 4.40-6.30 [facility] Comment on above: Performed By: #### C BC #### [facility] [address] [place] [address] RED CELL DISTRI WIDTH 15.7 % High 11.0-15.5 [facility] Comment on above: Performed By: #### C BC #### [address] [place] [address] WBC (Bld) [#/Vol] 11.4 10*3/uL High 4.0-11.0 [facility] Comment on above: Performed By: #### C #### [address] [address] Determination of erythrocyte mean corpuscular volume (MCV)Ordered By: Sylvester Ramirez on 11-30-2023 MCV (RBC) [Entitic vol] 86.6 fL 80-97 [facility] ED.PDOCon 11-30-2023 ED.PDOC MATTY WHITLOCK Male [id number] Attending provider: [facility] [id number] Sylvester Ramirez 1990 33 DOS: 11/30/23 Hx/Exam [...] Dictated By: Dr. Sylvester Ramirez MD Dictated Date/Time:11/30/23 022 Electronically Signed Date/Time: 11/30/232156 Normal [facility] EGFR non- AmericanOrd ered By: Sylvester Ramirez on 11-30-2023 GFR/1.73 sq M.predicted among non-blacks MDRD (S/P/Bld) [Vol rate/Area] mL/min/{1.73_m2} [facility] Eosinophil percentOrdered By : Sylvester Ramirez on 11-30-2023 Basophils/100 WBC (Bld) 0.50 % 0-2 [facility] Chloride [Moles/Vol] 105 mmol/L 98-107 [facility] Eosinophil percent < 3.0 mg/dL [facility] Comment on above: < 3 mg/dl NONE DETEC OGG01-340 mg/dl MAY SHOW SIGNS OF [id number] mg/dl COMATOSE LEVEL Eosinophils/100 WBC (Bld) 3.2 % 0-8 [facility] Hemoglobin (Bld) [Mass/Vol] 13.3 g/dL Low 14.0-18.0 [facility] Lymphocytes (Bld) [#/Vol] 2.9 10*3/uL 1.0-4.0 [facility] Lymphocytes/100 WBC (Bld) 25.0 % 16-48 [facility] Monocytes (Bld) [#/Vol] 0.7 10*3/uL 0.1-1.7 [facility] Monocytes/100 WBC (Bld) 6.1 % 3-9 [facility] Potassium [Moles/Vol] 3.8 mmol/L 3.5-5.1 [facility] Sodium [Moles/Vol] 139 mmol/L 136-145 [facility] Fluoroscopic guidance for salo mbar puncture (LP)Ordered By: Sylvester Ramirez on 11-30-2023 Fluoroscopic guidance for lumbar puncture (LP) Negative [facility] Basophils (Bld) [#/Vol] 0.1 10*3/uL 0-0.1 [facility] Eosinophils (Bld) [#/Vol] 0.4 10*3/uL 0.0-1.80 [facility] Granulocytes/100 WBC Auto (B ld)Ordered By: Sylvester Ramirez on 11-30-2023 Granulocytes/100 WBC (Bld) 65.2 % 42-80 [facility] Laboratory - Chemistry and C hemistry - challengeOrdered By: Sylvester Ramirez on 11-30-2023 Calcium [Mass/Vol] 8.8 mg/dL 8.5-10.1 [facility] CO2 [Moles/Vol] 27.0 mmol/L [facility] Creatinine [Mass/Vol] 1.00 mg/dL 0.7-1.3 [facility] GFR/1.73 sq M.predicted MDRD (S/P/Bld) [Vol rate/Area] mL/min/{1.73_m2} [facility] Comment on above: THE NORMAL LEVEL OF GFR VARIES ACCORDING TO AGE, SEX, AND BODY SIZE. A GFR LEVEL OF LESS THAN 60 ML/MIN REPRESENTS LOSS OF THE ADULT LEVEL OF NORMAL KIDNEY FUNCTION. Glucose [Mass/Vol] 107 mg/dL High 70-100 [facility] Urea nitrogen [Mass/Vol] 17.0 mg/dL 718 [facility] Laboratory - Hematology and Cell countsOrdered By: Sylvester Ramirez on 11-30-2023 Erythrocyte distribution width (RBC) [Ratio] 15.7 % High 11.0-15.5 [facility] Granulocytes (Bld) [#/Vol] 7.4 10*3/uL 2.2-9.1 [facility] Hematocrit (Bld) [Volume fraction] 39.8 % Low 41.0-53.0 [facility] MCH (RBC) [Entitic mass] 29.0 pg 26.0-32.0 [facility] MCHC (RBC) [Mass/Vol] 33.4 g/dL 31.0-36.0 [facility] Platelet mean volume (Bld) [Entitic vol] 8.8 fL 6.4-10.5 [facility] Platelets (Bld) [#/Vol] 232 10*3/uL 140-450 [facility] RBC (Bld) [#/Vol] 4.60 10*6/uL 4.40-6.30 [facility] WBC (Bld) [#/Vol] 11.4 10*3/uL High 4.0-11.0 [facility] Monocyte distribution width [Entitic volume] in Blood by AutomatedOrdered By: Sylvester Ramirez on 11-30-2023 Monocyte distribution width Auto (Bld) [Entitic vol] 17.47 0-20 [facility] Comment on above: For ED adult patient s suspected of sepsis, MDW<=20.0 does not rule out sepsis or risk of sepsis No Panel InformationOrdered By: Sylvester Ramirez on 11-30-2023 Amphetamines Screen Positive High [facility] Comment on above: URINE DRUG SCREENS A RE FOR MEDICAL PURPOSES ONLY.THIS TEST PROVIDES ONLY A PRELIMINARY TEST RESULT. A MORESPECIFIC ALTERNATE CHEMICAL METHOD MUST BE USED IN ORDER TOOBTAIN A CONFIRMED ANALYTICAL RESULT.CONFIRMATION PERFORMED UPON REQUEST Benzodiazepines Screen Negative [facility] Phencyclidine (PCP) Screen Negative [facility] Urine Drug Screen Note See below [facility] Comment on above: Cannabinoids ....... .................... [...] on 11-30-2023 Opiates Ql (Unsp spec) Negative [facility] Serum or plasma anion gapOrd ered By: Sylvester Ramirez on 11-30-2023 Anion gap [Moles/Vol] 11.1 mmol/L 03-19 [place] Tetrahydrocannabinol [Presen ce] in UrineOrdered By: Sylvester Ramirez on 11-30-2023 Tetrahydrocannabinol Ql (U) Positive High [facility] Comment on above: THIS TEST PROVIDES O NLY A PRELIMINARY TEST RESULT. A MORESPECIFIC ALTERNATE CHEMICAL METHOD MUST BE USED IN ORDER TOOBTAIN A CONFIRMED ANALYTICAL RESULT.CONFIRMATION PERFORMED UPON REQUEST URINE DRUG SCREENon 11-30-19 24 AMPHETAMINES Positive Abnormal [facility] Comment on above: Order Comment: What Is Urine Source? [place] Performed By: #### U DRGS ####[address] [address] Other Comment: THIS TEST PROVIDES ONLY A [...] and canbe ordered separately. BARBITURATES Negative Normal [facility] Comment on above: Order Comment: What Is Urine Source? [place] Performed By: #### U DRGS ####[address] [address] Other Comment: THIS TEST PROVIDES ONLY A [...] and canbe ordered separately. BENZODIAZEPINES Negative Normal [facility] Comment on above: Order Comment: What Is Urine Source? [place] Performed By: #### U DRGS ####[address] [address] Other Comment: THIS TEST PROVIDES ONLY A [...] and canbe ordered separately. COCAINE Negative Normal [facility] Comment on above: Order Comment: What Is Urine Source? [place] Performed By: #### U DRGS ####[address] [address] Other Comment: THIS TEST PROVIDES ONLY A [...] available and canbe ordered separately. METHADONE Negative [facility] Comment on above: Order Comment: What Is Urine Source? [place] Performed By: #### U DRGS ####[address] [address] Other Comment: THIS TEST PROVIDES ONLY A [...] available and canbe ordered separately. OPIATES Negative [facility] Comment on above: Order Comment: What Is Urine Source? [place] Performed By: #### U DRGS ####[address] [address] Other Comment: THIS TEST PROVIDES ONLY A [...] and canbe ordered separately. PHENCYCLIDINE Negative Normal [facility] Comment on above: Order Comment: What Is Urine Source? [place] Performed By: #### U DRGS ####[address] [address] Other Comment: THIS TEST PROVIDES ONLY A [...] available and canbe ordered separately. [facility] Comment on above: Order Comment: What Is Urine Source? Clean Catch [place] Performed By: #### U DRGS ####[address] [place] [address] Other Comment: THIS TEST PROVIDES ONLY A [...] DRG SCREEN CUT OFF SEE BELOW Normal [facility] Comment on above: Order Comment: What Is Urine Source? Clean Catch [place] Performed By: #### U DRGS ####[address] [address] Other Comment: THIS TEST PROVIDES ONLY A [...] ED NOTEon 09-15-2023 ED NOTE HNO ID: [id number] Author: YUDITH SANFORD, MAXIMILIAN Service: ? Author Type: Registered Nurse Type: ED Notes Filed: 09/15/2023 09:47 Note Text: Pts belongings give to transport crew. [facility] ED NOTE HNO ID: [id number] Author: JANAE ZENDEJAS CT Service: ? Author Type: Clinical Customs Investigator Type: ED Notes Filed: 09/15/2023 03:06 Note Text: This Tech received report from Wayne Maki. PT was previously placed in [facility] gown with all PT belongings removed and placed by [facility] in designated location. Room was cleared prior to this Tech taking over Frequent Observation responsibilities with all items secured in Silver Cart for PT AND Staff Safety. [facility] ED NOTE HNO ID: [id number] Author: RUPA KILPATRICK Medic Service: Emergency Medicine Author Type: Supervisor Communications And Signals and Customs Investigator Type: ED Notes Filed: 09/15/2023 02:29 Note Text: Pt gets up and asks to use trestroom Pt used restroom while under observation through partially opened door, then returned to room Pt then taken to 32 [facility] ED NOTE HNO ID: [id number] Author: GENARO RDZ, MAXIMILIAN Service: Abstract Author Type: Registered Nurse Type: ED Notes Filed: 09/15/2023 01:27 Note Text: Intake updated on pt. [facility] ED NOTE HNO ID: [id number] Author: KYLAH TREVIZO, MAXIMILIAN Service: Emergency Medicine Author Type: Registered Nurse Type: ED Notes Filed: 09/15/2023 00:42 Note Text: [facility] states 0930 ETA [facility] CBC panel Auto (Bld)on 09-13 Erythrocyte distribution width (RBC) [Ratio] 13.4 % Normal 11.5-15.0 [facility] Comment on above: Order Comment: Speci men Type: BLOOD SPECIMEN Ordering Facility: [facility] Address: [address] [place] [address] Performed By: #### 5 8410-2 #### [facility] CLIA [id number] [address] [place] [address] [facility] [place] Hematocrit (Bld) [Volume fraction] 39.0 % Normal 39.0-51.0 [facility] Comment on above: Order Comment: Speci men Type: BLOOD SPECIMEN Ordering Facility: [facility] Address: [address] [place] [address] Performed By: #### 5 8410-2 #### [facility] CLIA [id number] [address] [place] [address] [place] Hemoglobin (Bld) [Mass/Vol] 12.9 g/dL Low 13.0-17.0 [facility] Comment on above: Order Comment: Speci men Type: BLOOD SPECIMEN Ordering Facility: [facility] Address: [address] [place] [address] Performed By: #### 5 8410-2 #### [facility] CLIA [id number] [address] [place] [address] [place] MCH (RBC) [Entitic mass] 28.6 pg Normal 26.0-34.0 [facility] Comment on above: Order Comment: Speci men Type: BLOOD SPECIMEN Ordering Facility: [facility] Address: [address] [place] [address] Performed By: #### 5 8410-2 #### [facility] CLIA [id number] [address] [place] [address] [place] MCHC (RBC) [Mass/Vol] 33.1 g/dL Normal 30.5-36.0 [facility] Comment on above: Order Comment: Speci men Type: BLOOD SPECIMEN Ordering Facility: [facility] Address: [address] [place] [address] Performed By: #### 5 8410-2 #### [facility] CLIA [id number] [address] [place] [address] [place] MCV (RBC) [Entitic vol] 86.5 fL Normal 80.0-100.0 [facility] Comment on above: Order Comment: Speci men Type: BLOOD SPECIMEN Ordering Facility: [facility] Address: [address] [place] [address] Performed By: #### 5 8410-2 #### [facility] CLIA [id number] [address] [place] [address] [place] Nucleated RBC (Bld) [#/Vol] 10*3/uL Normal <0.01 [facility] Comment on above: Order Comment: Speci men Type: BLOOD SPECIMEN Ordering Facility: [facility] Address: [address] [place] [address] Performed By: #### 5 8410-2 #### [facility] CLIA [id number] [address] [place] [address] [place] Platelet mean volume (Bld) [Entitic vol] 10.0 fL Normal 9.0-12.7 [facility] Comment on above: Order Comment: Speci men Type: BLOOD SPECIMEN Ordering Facility: [facility] Address: [address] [place] [address] Performed By: #### 5 8410-2 #### [facility] CLIA [id number] [address] [place] [address] [place] Platelets (Bld) [#/Vol] 322 10*3/uL Normal 150-400 [facility] Comment on above: Order Comment: Speci men Type: BLOOD SPECIMEN Ordering Facility: [facility] Address: [address] [place] [address] Performed By: #### 5 8410-2 #### [facility] CLIA [id number] [address] [place] [address] [place] RBC (Bld) [#/Vol] 4.51 10*6/uL Normal 4.20-6.00 [facility] Comment on above: Order Comment: Speci men Type: BLOOD SPECIMEN Ordering Facility: [facility] Address: [address] [place] [address] Performed By: #### 5 8410-2 #### [facility] CLIA [id number] [address] [place] [address] [place] WBC (Bld) [#/Vol] 13.03 10*3/uL High 3.70-11.00 [facility] Comment on above: Order Comment: Speci men Type: BLOOD SPECIMEN Ordering Facility: [facility] Address: [address] [place] [address] Performed By: #### 5 8410-2 #### [facility] CLIA [id number] [address] [place] [address] Comprehensive metabolic 2000 panelon 09-14-2023 Albumin [Mass/Vol] 3.8 g/dL Normal 3.2-5.0 [facility] Comment on above: Order Comment: Speci men Type: BLOOD SPECIMEN Ordering Facility: [facility] Address: [address] [place] [address] Performed By: #### 2 4323-8, 5643-2 #### [facility] CLIA [id number] [address] [place] [address] [place] ALP [Catalytic activity/Vol] 70 U/L Normal 45-117 [facility] Comment on above: Order Comment: Speci men Type: BLOOD SPECIMEN Ordering Facility: [facility] Address: [address] [place] [address] Performed By: #### 2 4323-8, 5643-2 #### [facility] CLIA [id number] [address] [place] [address] [place] ALT [Catalytic activity/Vol] 31 U/L Normal 13-61 [facility] Comment on above: Order Comment: Speci men Type: BLOOD SPECIMEN Ordering Facility: [facility] Address: [address] [place] [address] Result Comment: Resu lts may be falsely depressed after the administration of Sulfasalazine and/or Sulfapyridine. Performed By: #### 2 4323-8, 5643-2 #### [facility] CLIA [id number] [address] [place] [address] [place] Anion gap [Moles/Vol] 6 mmol/L Normal 5-16 [facility] Comment on above: Order Comment: Speci men Type: BLOOD SPECIMEN Ordering Facility: [facility] Address: [address] [place], [place] [address] Performed By: #### 2 4323-8, 5643-2 #### [facility] CLIA [id number] [address] [place] [address] [place] AST [Catalytic activity/Vol] 44 U/L High 8-34 [facility] Comment on above: Order Comment: Speci men Type: BLOOD SPECIMEN Ordering Facility: [facility] Address: [address] [place] [address] Result Comment: Resu lts may be falsely depressed after the administration of Sulfasalazine and/or Sulfapyridine. Performed By: #### 2 4323-8, 5643-2 #### [facility] CLIA [id number] [address] [place] [address] [place] Bilirubin [Mass/Vol] 0.5 mg/dL Normal 0.2-1.0 [facility] Comment on above: Order Comment: Speci men Type: BLOOD SPECIMEN Ordering Facility: [facility] Address: [address] [place] [address] Performed By: #### 2 4323-8, 5643-2 #### [facility] CLIA [id number] [address] [place] [address] [place] Calcium [Mass/Vol] 9.5 mg/dL Normal 8.5-10.5 [facility] Comment on above: Order Comment: Speci men Type: BLOOD SPECIMEN Ordering Facility: [facility] Address: [address] [place] [address] Performed By: #### 2 4323-8, 5643-2 #### [facility] CLIA [id number] [address] [place] [address] [place] Chloride [Moles/Vol] 109 mmol/L High 98-107 [facility] Comment on above: Order Comment: Speci men Type: BLOOD SPECIMEN Ordering Facility: [facility] Address: [address] [place] [address] Performed By: #### 2 4323-8, 5643-2 #### [facility] CLIA [id number] [address] [place] [address] [place] CO2 [Moles/Vol] 26 mmol/L Normal 21-32 [facility] Comment on above: Order Comment: Speci men Type: BLOOD SPECIMEN Ordering Facility: [facility] Address: [address] [place] [address] Performed By: #### 2 4323-8, 5643-2 #### [facility] CLIA [id number] [address] [place] [address] [place] Creatinine [Mass/Vol] 0.81 mg/dL Normal 0.50-1.40 [facility] Comment on above: Order Comment: Speci men Type: BLOOD SPECIMEN Ordering Facility: [facility] Address: [address] [place] [address] Result Comment: Cathleen ents receiving either N-Acetylcysteine (NAC) or Metamizole prior to venipuncture, may have falsely depressed results. Performed By: #### 2 4323-8, 5643-2 #### [facility] CLIA [id number] [address] [place] [address] Creatinine and Glomerular filtration rate.predicted panel (S/P/Bld) 120 mL/min/1.73m??? Normal >=60 [facility] Comment on above: Order Comment: Speci men Type: BLOOD SPECIMEN Ordering Facility: [facility] Address: [address] [place] [address] Result Comment: Kenyetta mated Glomerular Filtration Rate [...] Performed By: #### 2 4323-8, 5643-2 #### [facility] CLIA [id number] [address] [place] [address] [place] Glucose [Mass/Vol] 92 mg/dL Normal 70-100 [facility] Comment on above: Order Comment: Jo patton Type: BLOOD SPECIMEN Ordering Facility: [facility] Address: [address] [id number] Result Comment: The [place] [employer] Association (ADA) provides guidance for cutoff [...] Standards of Medical Care in Diabetes 2016, [place] [employer]. Diabetes Care. 2016.39(Suppl 1). Results may be falsely elevated after the administration of Sulfapyridine. Results may be falsely depressed after the administration of Sulfasalazine. Performed By: #### 2 4323-8, 5643-2 #### [facility] CLIA [id number] [address] [place] [address] [place] Potassium [Moles/Vol] 3.8 mmol/L Normal 3.5-5.1 [facility] Comment on above: Order Comment: Jo patton Type: BLOOD SPECIMEN Ordering Facility: [facility] Address: [address] [place] [address] Performed By: #### 2 4323-8, 5643-2 #### [facility] CLIA [id number] [address] [place], [place] [address] [place] Protein [Mass/Vol] 7.1 g/dL Normal 6.0-8.5 [facility] Comment on above: Order Comment: Jo patton Type: BLOOD SPECIMEN Ordering Facility: [facility] Address: [address] [place] [address] Performed By: #### 2 4323-8, 5643-2 #### [facility] CLIA [id number] [address] [place], [place] [address] [place] Sodium [Moles/Vol] 141 mmol/L Normal 136-145 [facility] Comment on above: Order Comment: Speci men Type: BLOOD SPECIMEN Ordering Facility: [facility] Address: [address] [place] [address] Performed By: #### 2 4323-8, 5643-2 #### [facility] CLIA [id number] [address] [place], [place] [address] [place] Urea nitrogen [Mass/Vol] 12 mg/dL Normal 7-26 [facility] Comment on above: Order Comment: Speci men Type: BLOOD SPECIMEN Ordering Facility: [facility] Address: [address] [place] [address] Performed By: #### 2 4323-8, 5643-2 #### [facility] CLIA [id number] [address] [place], [place] [address] [place] ECG COMPLETEon 09-14-2023 ECG COMPLETE Ventricular Rate : 9 3 BPM Atrial Rate : 93 BPM P-R Interval : 138 ms QRS Duration : 98 ms Q-T Interval : 356 ms QTC Calculation(Bazett) : 442 ms Calculated P [place] : 84 degrees Calculated R [place] : 77 degrees Calculated T [place] : 50 degrees Normal sinus rhythm Incomplete right bundle branch block Borderline ECG No previous ECGs available Confirmed by DELFINO CORTES MD ([id number]) on 09/14/2023 11:32:14 PM NAME : MATTY WHITLOCK PID : [id number] : 1990 Gender : Male Race : ORD : [id number] Procedure Date : Sep 14 2023 17:02:20 Edit Date : Sep 14 2023 23:32:16 Diagnosis: Normal sinus rhythm Incomplete right bundle branch block Borderline ECG No previous ECGs available Confirmed by DELFINO CORTES MD ([id number]) on 09/14/2023 11:32:14 PM Test Reason : STAT Location : 0 : ED EDH04 Overread By : DELFINO CORTES MD Edited By : DELFINO CORTES MD Referred By : , Acquired by : Evgeny PERALES [facility] ED NOTEon 09-14-2023 ED NOTE HNO ID: [id number] Author: GENARO RDZ RN Service: Abstract Author Type: Registered Nurse Type: ED Notes Filed: 09/14/2023 22:41 Note Text: Report called to MAXIM[facility]IAN Link at [facility] ED NOTE HNO ID: [id number] Author: BONNIE GREENE Tech Service: ? Author Type: Customs Investigator Type: ED Notes Filed: 09/14/2023 22:35 Note Text: THIS TECH TOOK OVER SITTING WITH PT. PT IS LAYING IN BED, CHEST IS RISING AND FALLING. PT IS SAFE AT THIS TIME. I WILL CONTINUE TO SIT UNTIL TOLD OTHERWISE. [facility] ED NOTE HNO ID: [id number] Author: GENARO RDZ RN Service: Abstract Author Type: Registered Nurse Type: ED Notes Filed: 09/14/2023 22:12 Note Text: Pt resting in bed [facility] ED NOTE HNO ID: [id number] Author: GENARO RDZ RN Service: Abstract Author Type: Registered Nurse Type: ED Notes Filed: 09/14/2023 22:12 Note Text: Pt acting agitated. Passing the room, shouting, and not following request. MD notified and medications ordered. Pt accepting medications without difficulty. PD at bedside. [facility] ED NOTE HNO ID: [id number] Author: ADITYA CORDOVA RN Service: Immunology Author Type: Registered Nurse Type: ED Notes Filed: 09/14/2023 21:06 Note Text: Attempted to call report 3x to [facility] for this pt. [employer] whom answered the phone (not nurse taking report) said "they will just receive a surprise pt" because they are not answering the phones to take report. [facility] ED NOTE HNO ID: [id number] Author: ADITYA CORDOVA RN Service: Immunology Author Type: Registered Nurse Type: ED Notes Filed: 09/14/2023 18:42 Note Text: Pt presents with EMS for flight of ideas and manic episode. Per EMS pt was outside of [facility] emergency department and is unable to go back to [facility]. Upon pt arrival pt is speaking with flight of ideas regarding multiple different encounters with spirits and people within the last 6 months. Pt states he is hungry and doesn't have anywhere to go. Pt appears paranoid saying people are after him and even if he did kill himself "they would still kill other people instead of me." Pt is alert and oriented x4. Normal [facility] ED PROV NOTEon 09-14-2023 ED PROV NOTE HNO ID: [id number] Author: WES STEVENS DO Service: Emergency Medicine Author Type: Physician Type: ED Provider Notes Filed: 09/14/2023 21:12 Note Text: EMERGENCY DEPARTMENT NOTE [facility] Matty Whitlock Room: MRED04/04-ED HISTORY OF PRESENT ILLNESS: Matty Whitlock is [...] also states that he recently saw a "dog man" in the upstairs window of the house [...] ?F) Resp 20 Ht 167.6 cm (5' 6") Wt 65.6 kg (144 lb 10 oz) [...] Marian (*) Ketones, Urine Trace (*) Specific [place], Ur >1.030 (*) Protein, Urine 1+ (*) [...] for a (more content not included)... Normal [facility] Ethanol [facility] 024 Ethanol [Mass/Vol] mg/dL Normal <0.010 [facility] Comment on above: Order Comment: Speci men Type: BLOOD SPECIMEN Ordering Facility: [facility] Address: [address] [place], [place] [address] Performed By: #### 2 4323-8, 5643-2 #### [facility] CLIA [id number] [address] [place] [address] [place] SARS-CoV-2 RNA Resp Ql DINAH+p indu 09-14-2023 SARS-CoV-2 (COVID-19) RNA DINAH+probe Ql (Resp) COVID 19 RESULT: Not detected The method used is RT-PCR or an equivalent NAAT method. Reference Range(the expected result in uninfected individuals): Not detected Normal [facility] Comment on above: Performed By: #### 9 4500-6 #### [facility] CLIA [id number] [address] [place] [address] [place] TOXICOLOGY SCREEN, ROUTINE U RINEon 09-14-2023 Amphetamines Confirm (U) [Mass/Vol] Positive Abnormal Negative [facility] Comment on above: Order Comment: Speci men Type: URINE SPECIMEN Ordering Facility: [facility] Address: [address] [place] [address] Result Comment: Cuto ff threshold at 1000 ng/mL. Performed By: #### U TOX2 #### [facility] CLIA [id number] [address] [place] [address] [place] BARBITURATES, URINE Negative Normal Negative [facility] Comment on above: Order Comment: Speci men Type: URINE SPECIMEN Ordering Facility: [facility] Address: [address] [place] [address] Result Comment: Cuto ff threshold at 200 ng/mL. Performed By: #### U TOX2 #### [facility] CLIA [id number] [address] [place] [address] [place] BENZODIAZEPINES, UR Negative Normal Negative [facility] Comment on above: Order Comment: Speci men Type: URINE SPECIMEN Ordering Facility: [facility] Address: [address] [place] [address] Result Comment: Cuto ff threshold at 200 ng/mL. Performed By: #### U TOX2 #### [facility] CLIA [id number] [address] [place] [address] [place] Cannabinoids Screen Ql (U) Positive Abnormal Negative [facility] Comment on above: Order Comment: Speci men Type: URINE SPECIMEN Ordering Facility: [facility] Address: [address] [place] [address] Result Comment: Cuto ff threshold at 50 ng/mL. Performed By: #### U TOX2 #### [facility] CLIA [id number] [address] [place] [address] [place] Cocaine Ql (U) Negative Normal Negative [facility] Comment on above: Order Comment: Speci men Type: URINE SPECIMEN Ordering Facility: [facility] Address: [address] [place] [address] Result Comment: Cuto ff threshold at 300 ng/mL. Performed By: #### U TOX2 #### [facility] CLIA [id number] [address] [place] [address] OF [facility] Opiates Screen Ql (U) Negative Normal Negative [facility] Comment on above: Order Comment: Speci men Type: URINE SPECIMEN Ordering Facility: [facility] Address: [address] [place] [address] Result Comment: Cuto ff threshold at 300 ng/mL. Performed By: #### U TOX2 #### [facility] CLIA [id number] [address] [place] [address] OF [facility] Phencyclidine Ql (U) Negative Normal Negative [facility] Comment on above: Order Comment: Speci men Type: URINE SPECIMEN Ordering Facility: [facility] Address: [address] [place] [address] Result Comment: Cuto ff threshold at 25 ng/mL. Performed By: #### U TOX2 #### [facility] CLIA [id number] [address] [place] [address] Urinalysis complete panel (U )on 09-14-2023 Bacteria LM.HPF (Urine sed) [#/Area] Rare Abnormal None Seen [facility] Comment on above: Order Comment: Speci men Type: URINE SPECIMEN Ordering Facility: [facility] Address: [address] [place] [address] Performed By: #### 2 4356-8 #### [facility] CLIA [id number] [address] [place] [address] [place] Bilirubin Ql (U) Negative Normal Negative [facility] Comment on above: Order Comment: Speci men Type: URINE SPECIMEN Ordering Facility: [facility] Address: [address] [place] [address] Performed By: #### 2 4356-8 #### [facility] CLIA [id number] [address] [place] [address] [place] Clarity (Unsp spec) Clear Normal Clear [facility] Comment on above: Order Comment: Speci men Type: URINE SPECIMEN Ordering Facility: [facility] Address: [address] [place] [address] Performed By: #### 2 4356-8 #### [facility] CLIA [id number] [address] [place] [address] [place] Color (U) Marian Abnormal Yellow [facility] Comment on above: Order Comment: Speci men Type: URINE SPECIMEN Ordering Facility: [facility] Address: [address] [place] [address] Performed By: #### 2 4356-8 #### [facility] CLIA [id number] [address] [place] [address] [place] Epithelial cells LM.HPF (Urine sed) [#/Area] Few Normal [facility] Comment on above: Order Comment: Speci men Type: URINE SPECIMEN Ordering Facility: [facility] Address: [address] [place] [address] Performed By: #### 2 4356-8 #### [facility] CLIA [id number] [address] [place] [address] [place] Glucose Test strip (U) [Mass/Vol] Negative Normal Negative [facility] Comment on above: Order Comment: Speci men Type: URINE SPECIMEN Ordering Facility: [facility] Address: [address] [place] [address] Performed By: #### 2 4356-8 #### [facility] [facility] CLIA [id number] [address] [place] [address] [place] Granular casts (Urine sed) [#/Area] /[LPF] Abnormal 0 /LPF [facility] Comment on above: Order Comment: Speci men Type: URINE SPECIMEN Ordering Facility: [facility] Address: [address] [place] [address] Performed By: #### 2 4356-8 #### [facility] CLIA [id number] [address] [place] [address] OF [facility] Hemoglobin Ql (U) Negative Normal Negative [facility] Comment on above: Order Comment: Speci men Type: URINE SPECIMEN Ordering Facility: [facility] Address: [address] [place] [address] Performed By: #### 2 4356-8 #### [facility] CLIA [id number] [address] [place] [address] [place] Hyaline casts (Urine sed) [#/Area] 4-10 /LPF Abnormal 0 /LPF [facility] Comment on above: Order Comment: Speci men Type: URINE SPECIMEN Ordering Facility: [facility] Address: [address] [place] [address] Performed By: #### 2 4356-8 #### [facility] CLIA [id number] [address] [place] [address] Ketones Ql (U) Trace Abnormal Negative [facility] Comment on above: Order Comment: Speci men Type: URINE SPECIMEN Ordering Facility: [facility] Address: [address] [place] [address] Performed By: #### 2 4356-8 #### [facility] CLIA [id number] [address] [place] [address] Leukocyte esterase Test strip Ql (U) Negative Normal Negative [facility] Comment on above: Order Comment: Speci men Type: URINE SPECIMEN Ordering Facility: [facility] Address: [address] [place] [address] Performed By: #### 2 4356-8 #### [facility] CLIA [id number] [address] [place] [address] [place] Nitrite Ql (U) Negative Normal Negative [facility] Comment on above: Order Comment: Speci men Type: URINE SPECIMEN Ordering Facility: [facility] Address: [address] [place] [address] Performed By: #### 2 4356-8 #### [facility] CLIA [id number] [address] [place] [address] [place] pH (U) 5.0 [pH] Normal 5.0-8.0 [facility] Comment on above: Order Comment: Speci men Type: URINE SPECIMEN Ordering Facility: [facility] Address: [address] [place] [address] Performed By: #### 2 4356-8 #### [facility] CLIA [id number] [address] [place] [address] [place] Protein (U) [Mass/Vol] 1+ Abnormal Negative [facility] Comment on above: Order Comment: Speci men Type: URINE SPECIMEN Ordering Facility: [facility] Address: [address] [place] [address] Performed By: #### 2 4356-8 #### [facility] CLIA [id number] [address] [place] [address] [place] RBC LM.HPF (Urine sed) [#/Area] 3-5 /HPF Abnormal 0-3 /HPF [facility] Comment on above: Order Comment: Speci men Type: URINE SPECIMEN Ordering Facility: [facility] Address: [address] [place] [address] Performed By: #### 2 4356-8 #### [facility] CLIA [id number] [address] [place] [address] [place] Specific gravity (U) [Rel density] >1.030 High 1.005-1.030 [facility] Comment on above: Order Comment: Speci men Type: URINE SPECIMEN Ordering Facility: [facility] Address: [address] [place] [address] Performed By: #### 2 4356-8 #### [facility] CLIA [id number] [address] [place] [address] [place] Urobilinogen Ql (U) 2+ Abnormal Negative [facility] Comment on above: Order Comment: Speci men Type: URINE SPECIMEN Ordering Facility: [facility] Address: [address] [place] [address] Performed By: #### 2 4356-8 #### [facility] CLIA [id number] [address] [place] [address] WBC LM.HPF (Urine sed) [#/Area] 0-5 /HPF Normal 0-5 /HPF [facility] Comment on above: Order Comment: Speci men Type: URINE SPECIMEN Ordering Facility: [facility] Address: [facility] [place] [address] Performed By: #### 2 4356-8 #### [facility] CLIA [id number] [address] [place], [place] [address] [facility] ED NOTEon 09-01-2023 ED NOTE HNO ID: [id number] Author: ALTAF ROBLEDO RN Service: Emergency Medicine Author Type: Registered Nurse Type: ED Notes Filed: 09/01/2023 09:52 Note Text: Pt resting in bed. Pt was given oatmeal, orange juice, applesauce and a cookie. Pt denies any needs at this time. Normal [facility] ED NOTE HNO ID: [id number] Author: SIRI NEWTON RN Service: Emergency Medicine Author Type: Registered Nurse Type: ED Notes Filed: 09/01/2023 07:35 Note Text: Pt stated has been [facility] the last 2 days and needs somewhere to stay; Stated was taken to [facility] last night and was discharged at 0600 this am and then came here; Stated feels dizzy due to not eating Normal [facility] ED PROV NOTEon 09-01-2023 ED PROV NOTE HNO ID: [id number] Author: MARLENA HOFFMAN MD Service: Emergency Medicine [...] he called EMS last night presented to [facility]'s emergency department. The records are not [...] a list of different locations from the [facility] facility but does not have anywhere [...] 68 kg (150 lb) 1.676 m (5' 6") Physical Exam Vitals and nursing note reviewed. [...] (more content not included)... Normal [facility] Acetaminophenon 08-11-2023 Acetaminophen [Mass/Vol] ug/mL Normal 10.0-30.[address] [facility] Comment on above: Performed By: #### 3 298-7 #### IMTIAZ Mendoza ([id number]) [facility] ([facility]) [address] [place] [address] Acetaminophen levelon 2023 Acetaminophen [Mass/Vol] ug/mL 10.0 - 30.0 ug/mL [facility] CBC W Auto Differential pane l (Bld)on 08-11-2023 Basophils (Bld) [#/Vol] 0.05 x10*3/uL Normal 0.00-0.[address] [facility] Comment on above: Performed By: #### 5 7021-8 #### IMTIAZ Mendoza ([id number]) [facility] ([facility]) [address] [place] [address] Basophils/100 WBC (Bld) 0.3 % Normal 0.0-2.[address] [facility] Comment on above: Performed By: #### 5 7021-8 #### IMTIAZ Mendoza ([id number]) [facility] ([facility]) [address] [place] [address] Eosinophils (Bld) [#/Vol] 0.22 x10*3/uL Normal 0.00-0.[address] [facility] Comment on above: Performed By: #### 5 7021-8 #### IMTIAZ Mendoza ([id number]) [facility] ([facility]) [address] [place] [address] Eosinophils/100 WBC (Bld) 1.5 % Normal 0.0-6.[address] [facility] Comment on above: Performed By: #### 5 7021-8 #### IMTIAZ Mendoza ([id number]) [facility] ([facility]) [address] [place] [address] Erythrocyte distribution width (RBC) [Ratio] 14.9 % High 11.5-14.[address] [facility] Comment on above: Performed By: #### 5 7021-8 #### IMTIAZ MORAK Reji ([id number]) [facility] ([facility]) [address] [place] [address] Hematocrit (Bld) [Volume fraction] 46.5 % Normal 41.0-52.[address] [facility] Comment on above: Performed By: #### 5 7021-8 #### IMTIAZ ZARAGOZAPAK Reji ([id number]) [facility] ([facility]) [address] [place] [address] Hemoglobin (Bld) [Mass/Vol] 15.3 g/dL Normal 13.5-17.[address] [facility] Comment on above: Performed By: #### 5 7021-8 #### IMTIAZ Mendoza ([id number]) [facility] ([facility]) [address] [place] [address] Immature granulocytes (Bld) [#/Vol] 0.07 x10*3/uL Normal 0.00-0.[address] [facility] Comment on above: Performed By: #### 5 7021-8 #### IMTIAZ Mendoza ([id number]) [facility] ([facility]) [address] [place] [address] Immature granulocytes/100 WBC (Bld) 0.5 % Normal 0.0-0.[address] [facility] Comment on above: Result Comment: Sailaja ture Granulocyte Count (IG) includes promyelocytes, myelocytes and metamyelocytes but does not include bands. Percent differential counts (%) should be interpreted in the context of the absolute cell counts (cells/UL). Performed By: #### 5 7021-8 #### IMTIAZ Mendoza ([id number]) [facility] ([facility]) [address] [place] [address] Lymphocytes (Bld) [#/Vol] 3.51 x10*3/uL Normal 1.20-4.[address] [facility] Comment on above: Performed By: #### 5 7021-8 #### IMTIAZ Mendoza ([id number]) [facility] ([facility]) [address] [place] [address] Lymphocytes/100 WBC (Bld) 23.4 % Normal 13.0-44.[address] [facility] Comment on above: Performed By: #### 5 7021-8 #### IMTIAZ Mendoza ([id number]) [facility] ([facility]) [address] [place] [address] MCH (RBC) [Entitic mass] 28.1 pg Normal 26.0-34.[address] [facility] Comment on above: Performed By: #### 5 7021-8 #### IMTIAZ Mendoza ([id number]) [facility] ([facility]) [address] [place] [address] MCHC (RBC) [Mass/Vol] 32.9 g/dL Normal 32.0-36.0 [facility] Comment on above: Performed By: #### 5 7021-8 #### IMTIAZ Mendoza ([id number]) [facility] ([facility]) [address] [place] [address] MCV (RBC) [Entitic vol] 85 fL Normal 80-[address] [facility] Comment on above: Performed By: #### 5 7021-8 #### IMTIAZ Mendoza ([id number]) [facility] ([facility]) [address] [place] [address] Monocytes (Bld) [#/Vol] 0.69 x10*3/uL Normal 0.10-1.[address] [facility] Comment on above: Performed By: #### 5 7021-8 #### IMTIAZ Mendoza ([id number]) [facility] ([facility]) [address] [place] [address] Monocytes/100 WBC (Bld) 4.6 % Normal 2.0-10.[address] [facility] Comment on above: Performed By: #### 5 7021-8 #### IMTIAZ Mendoza ([id number]) [facility] ([facility]) [address] [place] [address] Neutrophils (Bld) [#/Vol] 10.47 x10*3/uL High 1.20-7.[address] [facility] Comment on above: Result Comment: Perc ent differential counts (%) should be interpreted in the context of the absolute cell counts (cells/uL). Performed By: #### 5 7021-8 #### IMTIAZ Mendoza ([id number]) [facility] ([facility]) [address] [place] [address] Neutrophils/100 WBC (Bld) 69.7 % Normal 40.0-80.[address] [facility] Comment on above: Performed By: #### 5 7021-8 #### IMTIAZ Mendoza ([id number]) [facility] ([facility]) [address] [place] [address] Nucleated RBC/100 WBC (Bld) [Ratio] 0.0 /100 WBCs Normal 0.0-0.[address] [facility] Comment on above: Performed By: #### 5 7021-8 #### IMTIAZ Mendoza ([id number]) [facility] ([facility]) [address] [place] [address] Platelets (Bld) [#/Vol] 384 x10*3/uL Normal 150-[address] [facility] Comment on above: Performed By: #### 5 7021-8 #### IMTIAZ Mendoza ([id number]) [facility] ([facility]) [address] [place] [address] RBC (Bld) [#/Vol] 5.45 x10*6/uL Normal 4.50-5.90 [facility] Comment on above: Performed By: #### 5 7021-8 #### IMTIAZ Mendoza ([id number]) [facility] ([facility]) [address] [place] [address] WBC (Bld) [#/Vol] 15.0 x10*3/uL High 4.4-11.3 [facility] Comment on above: Performed By: #### 5 7021-8 #### IMTIAZ Mendoza ([id number]) [facility] ([facility]) [address] [place] [address] Basophils (Bld) [#/Vol] 0.05 10*3/uL [facility] Basophils/100 WBC (Bld) 0.3 % 0.0 - 2.0 % [facility] Eosinophils (Bld) [#/Vol] 0.22 10*3/uL [facility] Eosinophils/100 WBC (Bld) 1.5 % 0.0 - 6.0 % [facility] Erythrocyte distribution width (RBC) [Ratio] 14.9 % High 11.5 - 14.5 % [facility] Hematocrit (Bld) [Volume fraction] 46.5 % 41.0 - 52.0 % [facility] Hemoglobin (Bld) [Mass/Vol] 15.3 g/dL 13.5 - 17.5 g/dL [facility] Immature granulocytes (Bld) [#/Vol] 0.07 10*3/uL [facility] Immature granulocytes/100 WBC (Bld) 0.5 % 0.0 - 0.9 % [facility] Comment on above: Immature Granulocyte Count (IG) includes promyelocytes, myelocytes and metamyelocytes but does not include bands. Percent differential counts (%) should be interpreted in the context of the absolute cell counts (cells/UL). Interpretation and review of laboratory results Abnormal [facility] Lymphocytes (Bld) [#/Vol] 3.51 10*3/uL [facility] Lymphocytes/100 WBC (Bld) 23.4 % 13.0 - 44.0 % [facility] MCH (RBC) [Entitic mass] 28.1 pg 26.0 - 34.0 pg [facility] MCHC (RBC) [Mass/Vol] 32.9 g/dL 32.0 - 36.0 g/dL [facility] MCV (RBC) [Entitic vol] 85 fL 80 - 100 fL [facility] Monocytes (Bld) [#/Vol] 0.69 10*3/uL [facility] Monocytes/100 WBC (Bld) 4.6 % 2.0 - 10.0 % [facility] Neutrophils (Bld) [#/Vol] 10.47 10*3/uL High [facility] Comment on above: Percent differential counts (%) should be interpreted in the context of the absolute cell counts (cells/uL). Neutrophils/100 WBC (Bld) 69.7 % 40.0 - 80.0 % [facility] Nucleated RBC/100 WBC (Bld) [Ratio] 0.0 % [facility] Platelets (Bld) [#/Vol] 384 10*3/uL [facility] RBC (Bld) [#/Vol] 5.45 10*6/uL [facility] WBC (Bld) [#/Vol] 15.0 10*3/uL [facility] Comprehensive metabolic 2000 panelon 08-11-2023 Albumin BCP dye [Mass/Vol] 4.9 g/dL Normal 3.4-5.[address] [facility] Comment on above: Performed By: #### 2 4323-8 #### IMTIAZ Mendoza ([id number]) [facility] ([facility]) [address] [place] [address] ALP [Catalytic activity/Vol] 58 U/L Normal 33-[address] [facility] Comment on above: Performed By: #### 2 4323-8 #### IMTIAZ Mendoza ([id number]) [facility] ([facility]) [address] [place] [address] ALT With P-5'-P [Catalytic activity/Vol] 14 U/L Normal 10-[address] [facility] Comment on above: Result Comment: Cathleen ents treated with Sulfasalazine may generate falsely decreased results for ALT. Performed By: #### 2 4323-8 #### IMTIAZ Mendoza ([id number]) [facility] ([facility]) [address] [place] [address] Anion gap [Moles/Vol] 23 mmol/L High 10-20 [facility] Comment on above: Performed By: #### 2 4323-8 #### IMTIAZ Mendoza ([id number]) [facility] ([facility]) [address] [place] [address] AST With P-5'-P [Catalytic activity/Vol] 22 U/L Normal 9-[address] [facility] Comment on above: Performed By: #### 2 4323-8 #### IMTIAZ Mendoza ([id number]) [facility] ([facility]) [address] [place] [address] Bilirubin [Mass/Vol] 0.3 mg/dL Normal 0.0-1.2 [facility] Comment on above: Performed By: #### 2 4323-8 #### IMTIAZ Mendoza ([id number]) [facility] ([facility]) [address] [place] [address] Calcium [Mass/Vol] 8.7 mg/dL Normal 8.6-10.3 [facility] Comment on above: Performed By: #### 2 4323-8 #### IMTIAZ Mendoza ([id number]) [facility] ([facility]) [address] [place] [address] Chloride [Moles/Vol] 105 mmol/L Normal 98-107 [facility] Comment on above: Performed By: #### 2 4323-8 #### IMTIAZ Mendoza ([id number]) [facility] ([facility]) [address] [place] [address] CO2 [Moles/Vol] 20 mmol/L Low 21-32 [facility] Comment on above: Performed By: #### 2 4323-8 #### IMTIAZ Mendoza ([id number]) [facility] ([facility]) [address] [place] [address] Creatinine [Mass/Vol] 0.92 mg/dL Normal 0.50-1.30 [facility] Comment on above: Performed By: #### 2 4323-8 #### IMTIAZ Mendoza ([id number]) [facility] ([facility]) [address] [place] [address] GFR/1.73 sq M.predicted MDRD (S/P/Bld) [Vol rate/Area] mL/min/{1.73_m2} Normal >[address] [facility] Comment on above: Result Comment: Calc ulations of estimated GFR are performed using the 2020 CKD-EPI Study Refit equation without the race variable for the IDMS-Traceable creatinine methods. https://jasn.asnjournals.org/content/early//ASN.379486 3781 Performed By: #### 2 4323-8 #### IMTIAZ Mendoza ([id number]) [facility] ([facility]) [address] [place] [address] Glucose [Mass/Vol] 94 mg/dL Normal 74-99 [facility] Comment on above: Performed By: #### 2 4323-8 #### IMTIAZ Mendoza ([id number]) [facility] ([facility]) [address] [place] [address] Potassium [Moles/Vol] 3.5 mmol/L Normal 3.5-5.3 [facility] Comment on above: Performed By: #### 2 4323-8 #### IMTIAZ Mendoza ([id number]) [facility] ([facility]) [address] [place] [address] Protein [Mass/Vol] 7.3 g/dL Normal 6.4-8.2 [facility] Comment on above: Performed By: #### 2 4323-8 #### IMTIAZ Mendoza ([id number]) [facility] ([facility]) [address] [place] [address] Sodium [Moles/Vol] 144 mmol/L Normal 136-145 [facility] Comment on above: Performed By: #### 2 4323-8 #### IMTIAZ Mendoza ([id number]) [facility] ([facility]) [address] [place] [address] Urea nitrogen [Mass/Vol] 8 mg/dL Normal 6-[address] [facility] Comment on above: Performed By: #### 2 4323-8 #### IMTIAZ Mendoza ([id number]) [facility] ([facility]) [address] [place] [address] Albumin BCP dye [Mass/Vol] 4.9 g/dL 3.4 - 5.0 g/dL [facility] ALP [Catalytic activity/Vol] 58 U/L 33 - 120 U/L [facility] ALT With P-5'-P [Catalytic activity/Vol] 14 U/L 10 - 52 U/L [facility] Comment on above: Patients treated wit h Sulfasalazine may generate falsely decreased results for ALT. Anion gap [Moles/Vol] 23 mmol/L High 10 - 2 0 mmol/L [facility] AST With P-5'-P [Catalytic activity/Vol] 22 U/L 9 - 39 U/L [facility] Bilirubin [Mass/Vol] 0.3 mg/dL 0.0 - 1 .2 mg/dL [facility] Calcium [Mass/Vol] 8.7 mg/dL 8.6 - 10. 3 mg/dL [facility] Chloride [Moles/Vol] 105 mmol/L 98 - 10 7 mmol/L [facility] CO2 [Moles/Vol] 20 mmol/L Low 21 - 32 mmol/L [facility] Creatinine [Mass/Vol] 0.92 mg/dL 0.50 - 1.30 mg/dL [facility] eGFR - PINF [facility] Comment on above: Calculations of kenyetta mated GFR are performed using the 2020 CKD-EPI Study Refit equation without the race variable for the IDMS-Traceable creatinine methods. https://jasn.asnjournals.org/content//ASN.975829 4603 Glucose [Mass/Vol] 94 mg/dL 74 - 99 mg/dL [facility] Interpretation and review of laboratory results Abnormal [facility] Potassium [Moles/Vol] 3.5 mmol/L 3.5 - 5.3 mmol/L [facility] Protein [Mass/Vol] 7.3 g/dL 6.4 - 8.2 g/dL [facility] Sodium [Moles/Vol] 144 mmol/L 136 - 145 mmol/L [facility] Urea nitrogen [Mass/Vol] 8 mg/dL 6 - 23 mg/dL [facility] DRUG SCREEN,URINEon 08-11-19 24 Amphetamines Screen Ql (U) Negative Normal Presumptive Negative [facility] Comment on above: Order Comment: Drug screen results are presumptive and should not be used to assess compliance with prescribed medication. Contact the performing [facility] laboratory to add-on definitive confirmatory testing if [...] phenylpropanolamine, pseudoephedrine, and propranolol. Performed By: #### John RUG3 #### IMTIAZ Mendoza ([id number]) [facility] ([facility]) [address] [place], [place] [id number] Barbiturates Screen Ql (U) Negative Normal Presumptive Negative [facility] Comment on above: Order Comment: Drug screen results are presumptive and should not be used to assess compliance with prescribed medication. Contact the performing [facility] laboratory to add-on definitive confirmatory testing if [...] FF LEVEL: 200 NG/ML Performed By: #### John RUG3 #### IMTIAZ Mendoza ([id number]) [facility] ([facility]) [address] [place] [address] Benzodiazepines Ql (U) Negative Normal Presumptive Negative [facility] Comment on above: Order Comment: Drug screen results are presumptive and should not be used to assess compliance with prescribed medication. Contact the performing [facility] laboratory to add-on definitive confirmatory testing if [...] #### D RUG3 #### IMTIAZ STEMPAK M ([id number]) [facility] ([facility]) [address] [place] [address] Benzoylecgonine Screen Ql (U) Negative Normal Presumptive Negative [facility] Comment on above: Order Comment: Drug screen results are presumptive and should not be used to assess compliance with prescribed medication. Contact the performing [facility] laboratory to add-on definitive confirmatory testing if [...] #### D RUG3 #### IMTIAZ STEMPAK M ([id number]) [facility] ([facility]) [address] [place] [address] Cannabinoids Screen Ql (U) Positive Abnormal Presumptive Negative [facility] Comment on above: Order Comment: Drug screen results are presumptive and should not be used to assess compliance with prescribed medication. Contact the performing [facility] laboratory to add-on definitive confirmatory testing if [...] #### D RUG3 #### IMTIAZ STEMPAK M ([id number]) [facility] ([facility]) [address] [place] [address] fentaNYL+Norfentanyl Screen Ql (U) Negative Normal Presumptive Negative [facility] Comment on above: Order Comment: Drug screen results are presumptive and should not be used to assess compliance with prescribed medication. Contact the performing [facility] laboratory to add-on definitive confirmatory testing if [...] By: #### D RUG3 #### IMTIAZ Mendoza ([id number]) [facility] ([facility]) [address] [place] [address] Methadone Screen Ql (U) Negative Normal Presumptive Negative [facility] Comment on above: Order Comment: Drug screen results are presumptive and should not be used to assess compliance with prescribed medication. Contact the performing [facility] laboratory to add-on definitive confirmatory testing if [...] CUTO FF LEVEL: 150 NG/ML The metabolite S-msjbc-zdzkeiwkswtmae (LAAM) is not detected by this method in concentrations that would be found in the urine of patients on LAAM therapy. Performed By: #### D RUG3 #### IMTIAZ Mendoza ([id number]) [facility] ([facility]) [address] [place] [id number] Opiates Screen Ql (U) Negative Normal Presum ptive Negative [facility] Comment on above: Order Comment: Drug screen results are presumptive and should not be used to assess compliance with prescribed medication. Contact the performing [facility] laboratory to add-on definitive confirmatory testing if [...] By: #### D RUG3 #### IMTIAZ Mendoza ([id number]) [facility] ([facility]) [address] [place] [address] oxyCODONE+oxyMORphone Screen Ql (U) Negative Normal Presumptive Negative [facility] Comment on above: Order Comment: Drug screen results are presumptive and should not be used to assess compliance with prescribed medication. Contact the performing [facility] laboratory to add-on definitive confirmatory testing if [...] both oxycodone and oxymorphone. Performed By: #### D RUG3 #### IMTIAZ Mendoza ([id number]) [facility] ([facility]) [address] [place] [address] Phencyclidine Ql (U) Negative Normal Presump tive Negative [facility] Comment on above: Order Comment: Drug screen results are presumptive and should not be used to assess compliance with prescribed medication. Contact the performing [facility] laboratory to add-on definitive confirmatory testing if [...] been reported with dextromethorphan. Performed By: #### D MING3 #### IMTIAZ Mendoza ([id number]) [facility] ([facility]) [address] [place] [address] ECG 12 leadOrdered By: Ruth Bran on 08-11-2023 Atrial Rate 113 BPM [facility] Work Phone: P [place] 74 degrees [facility] Work Phone: P Offset 204 ms [facility] Work Phone: P Onset 144 ms [facility] Work Phone: ME Interval 150 ms [facility] Work Phone: Q Onset 219 ms [facility] Work Phone: QRS Count 19 beats [facility] Work Phone: QRS Duration 92 ms [facility] Work Phone: QT Interval 346 ms [facility] Work Phone: QTC Calculation(Bazett) 474 ms [facility] Work Phone: QTC Fredericia 427 ms [facility] Work Phone: [phone] R [place] 71 degrees [facility] Work Phone: [phone] T [place] 35 degrees [facility] Work Phone: [phone] T Offset 392 ms [facility] Work Phone: [phone] Ventricular Rate 113 BPM [facility] Work Phone: [facility] Work Phone: ECG 12 leadon 08-11-2023 Sinus tachycardia Possible Left atrial enlargement Borderline ECG No previous ECGs available See ED provider note for full interpretation and clinical correlation Confirmed by Aylin Bran ([id number]) on 08/11/2023 2:33:15 PM MUSE Aylin Bran PA-C - 08/11/2023 Sinus tachycardia Possible Left atrial enlargement Borderline ECG No previous ECGs available See ED provider note for full interpretation and clinical correlation Confirmed by Aylin Bran ([id number]) on 08/11/2023 2:33:15 PM [facility] Work Phone: ECG 12-LEADon 08-11-2023 ECG 12-LEAD Ventricular Rate 113 Atrial Rate 113 P-R Interval 150 QRS Duration 92 Q-T Interval 346 QTC Calculation(Bazett) 474 P [place] 74 R [place] 71 T [place] 35 QRS Count 19 Q Onset 219 P Onset 144 P Offset 204 T Offset 392 QTC Fredericia 427 Diagnosis Sinus tachycardia Possible Left atrial enlargement Borderline ECG No previous ECGs available See ED provider note for full interpretation and clinical correlation Confirmed by Aylin Bran ([id number]) on 08/11/2023 2:33:[address] [facility] Ethanolon 08-11-2023 Ethanol [Mass/Vol] 77 mg/dL High <=10 [facility] Comment on above: Result Comment: For medical use only. Performed By: #### 5 643-2 #### IMTIAZ Mendoza ([id number]) [facility] ([facility]) [address] [place] [address] Ethanol [Mass/Vol] 77 mg/dL High NINF - 10 mg/dL [facility] Comment on above: For medical use only . Ethanol [Mass/Vol] 242 mg/dL High NINF - 10 mg/dL [facility] Comment on above: For medical use only . Ethanol [Mass/Vol] 242 mg/dL High <=10 [facility] Comment on above: Result Comment: For medical use only. Performed By: #### 5 643-2 #### IMTIAZ Mendoza ([id number]) [facility] ([facility]) [address] [place] [address] Ethanol [Mass/Vol]on 024 Interpretation and review of laboratory results Abnormal [facility] Interpretation and review of laboratory results Abnormal [facility] Glucose Test strip manual (B ld) [Mass/Vol]on 08-11-2023 Glucose [Mass/Vol] 98 mg/dL Normal 74-99 [facility] Comment on above: Performed By: #### 2 341-6 #### IMTIAZ Mendoza ([id number]) [facility] ([facility]) [address] [place] [address] No Panel Informationon 08-10 Interpretation and review of laboratory results Normal [facility] Salicylate levelon 4 Salicylates [Mass/Vol] mg/dL 4 - 20 mg/dL [facility] Salicylateson 08-11-2023 Salicylates [Mass/Vol] mg/dL Normal 4-[address] [facility] Comment on above: Performed By: #### 4 024-6 #### IMTIAZ Mendoza ([id number]) [facility] ([facility]) [address] [place] [address] Urinalysis complete W Reflex Culture panel (U)on 08-11-2023 Appearance (U) Clear Normal Clear [facility] Comment on above: Performed By: #### 5 8077-9 #### IMTIAZ Mendoza ([id number]) [facility] ([facility]) [address] [place] [address] Bilirubin (U) [Mass/Vol] Negative Normal NEGATIVE [facility] Comment on above: Performed By: #### 5 8077-9 #### IMTIAZ Mendoza ([id number]) [facility] ([facility]) [address] [place] [address] Color (U) Light-Yellow Normal Light-Yellow , Yellow, Dark-Yellow [facility] Comment on above: Performed By: #### 5 8077-9 #### IMTIAZ Mendoza ([id number]) [facility] ([facility]) [address] [place] [address] Glucose Auto test strip (U) [Mass/Vol] Normal Normal Normal [facility] Comment on above: Performed By: #### 5 8077-9 #### IMTIAZ Mendoza ([id number]) [facility] ([facility]) [address] [place] [address] Ketones (U) [Mass/Vol] Negative Normal NEGATIVE [facility] Comment on above: Performed By: #### 5 8077-9 #### IMTIAZ Mendoza ([id number]) [facility] ([facility]) [address] [place] [address] Leukocyte esterase Auto test strip Ql (U) Negative Normal NEGATIVE [facility] Comment on above: Performed By: #### 5 8077-9 #### IMTIAZ Mendoza ([id number]) [facility] ([facility]) [address] [place] [address] Nitrite Auto test strip Ql (U) Negative Normal NEGATIVE [facility] Comment on above: Performed By: #### 5 8077-9 #### IMTIAZ Mendoza ([id number]) [facility] ([facility]) [address] [place] [address] pH (U) 6.0 [pH] Normal 5.0, 5.5, 6.0, 6.5, 7.0, 7.5, 8.[address] [facility] Comment on above: Performed By: #### 5 8077-9 #### IMTIAZ Mendoza ([id number]) [facility] ([facility]) [address] [place] [address] Protein (U) [Mass/Vol] Negative Normal NEGATIVE, 10 (TRACE), 20 (TRACE) [facility] Comment on above: Performed By: #### 5 8077-9 #### IMTIAZ STEMPAK M ([id number]) [facility] ([facility]) [address] [place] [address] RBC (U) [#/Vol] Negative Normal NEGATIVE [facility] Comment on above: Performed By: #### 5 8077-9 #### IMTIAZ STEMPAK M ([id number]) [facility] ([facility]) [address] [place] [address] Specific gravity (U) [Rel density] 1.005 Normal 1.005-1.[address] [facility] Comment on above: Performed By: #### 5 8077-9 #### IMTIAZ STEMPAK M ([id number]) [facility] ([facility]) [address] [place] [address] Urobilinogen (U) [Mass/Vol] Normal Normal Normal [facility] Comment on above: Performed By: #### 5 8077-9 #### IMTIAZ STEMPAK M ([id number]) [facility] ([facility]) [address] [place] [address] XR Hand - right 3 Viewson No evidence of acute fracture or dislocation. No evidence of radiopaque foreign body. Signed by: Gerald Niño 08/11/2023 12:17 AM Dictation workstation: [id number] MMODAL Interpreted By: Gerald Morgan, STUDY: XR HAND RIGHT 3+ VIEWS; ; 08/10/2023 11:57 pm INDICATION: Signs/Symptoms:cocnern for fb in hand, pt cut hand on broken window. COMPARISON: None. ACCESSION NUMBER(S): [id number] ORDERING CLINICIAN: LESTER SMITH FINDINGS: Bone mineralization [...] on broken window. COMPARISON: None. ACCESSION NUMBER(S): [id number] ORDERING CLINICIAN: LESTER SMITH FINDINGS: Bone mineralization is normal. There is no evidence of fracture or dislocation. The joint spaces are maintained. No evidence of radiopaque foreign body. IMPRESSION: No evidence of acute fracture or dislocation. No evidence of radiopaque foreign body. Signed by: Gerald Niño 08/11/2023 12:17 AM Dictation workstation: [id number] [facility] Work Phone: XR Hand - right 3 ViewsOrder ed By: Gerald Niño on 08-11-2023 [facility] Work Phone: Drug Screen, Urineon 024 Amphetamines Screen Ql (U) Negative Presumptive Negative [facility] Comment on above: CUTOFF LEVEL: 500 NG /ML Cross-reactivity has been reported with high concentrations of the following drugs: buproprion, chloroquine, chlorpromazine, ephedrine, mephentermine, fenfluramine, phentermine, phenylpropanolamine, pseudoephedrine, and propranolol. Barbiturates Screen Ql (U) Negative Presumptive Negative [facility] Comment on above: CUTOFF LEVEL: 200 NG /ML Benzodiazepines Ql (U) Negative Presumptive Negative [facility] Comment on above: CUTOFF LEVEL: 200 NG /ML Benzoylecgonine Screen Ql (U) Negative Presumptive Negative [facility] Comment on above: CUTOFF LEVEL: 150 NG /ML Cannabinoids Screen Ql (U) Positive Abnormal Presumptive Negative [facility] Comment on above: CUTOFF LEVEL: 50 NG/ ML fentaNYL+Norfentanyl Screen Ql (U) Negative Presumptive Negative [facility] Comment on above: CUTOFF LEVEL: 5 NG/M L Interpretation and review of laboratory results Abnormal [facility] Methadone Screen Ql (U) Negative Presumptive Negative [facility] Comment on above: CUTOFF LEVEL: 150 NG /ML The metabolite A-xxalx-yhkmcmfjulqdqa (LAAM) is not detected by this method in concentrations that would be found in the urine of patients on LAAM therapy. Opiates Screen Ql (U) Negative Presum ptive Negative [facility] Comment on above: CUTOFF LEVEL: 300 NG /ML The opiate screen does not detect fentanyl, meperidine, or tramadol. Oxycodone is not consistently detected (refer to Oxycodone Screen, Urine result). oxyCODONE+oxyMORphone Screen Ql (U) Negative Presumptive Negative [facility] Comment on above: CUTOFF LEVEL: 100 NG /ML This test will accurately detect both oxycodone and oxymorphone. Phencyclidine Ql (U) Negative Presump tive Negative [facility] Comment on above: CUTOFF LEVEL: 25 NG/ ML Cross-reactivity has been reported with dextromethorphan. Drug screen results are presumptive and should not be used to assess compliance with prescribed medication. Contact the performing [facility] laboratory to add-on definitive confirmatory testing if [...] be directed to the laboratory medical directors. [facility] Glucose Test strip manual (B ld) [Mass/Vol]on 08-10-2023 Glucose [Mass/Vol] 98 mg/dL 74 - 99 mg/dL [facility] Interpretation and review of laboratory results Normal [facility] Urinalysis complete W Reflex Culture panel (U)on 08-10-2023 Appearance (U) Clear Clear [facility] Bilirubin (U) [Mass/Vol] Negative NEGATIVE [facility] Color (U) Light-Yellow Light-Yellow , Yellow, Dark-Yellow [facility] Glucose Auto test strip (U) [Mass/Vol] Normal Normal mg/dL [facility] Interpretation and review of laboratory results Normal [facility] Ketones (U) [Mass/Vol] Negative NEGATIVE mg/dL [facility] Leukocyte esterase Auto test strip Ql (U) Negative NEGATIVE [facility] Nitrite Auto test strip Ql (U) Negative NEGATIVE [facility] pH (U) 6.0 [pH] 5.0, 5.5, 6.0, 6.5, 7.0, 7.5, 8.0 [facility] Protein (U) [Mass/Vol] Negative NEGATIVE, 10 (TRACE), 20 (TRACE) mg/dL [facility] RBC (U) [#/Vol] Negative NEGATIVE [facility] Specific gravity (U) [Rel density] 1.005 1.005 - 1.035 [facility] Urobilinogen (U) [Mass/Vol] Normal Normal mg/dL [facility] XR HAND RIGHT 3+ VIEWSon XR HAND RIGHT 3+ VIEWS Interpreted By: Gerald Niño, STUDY: XR HAND RIGHT 3+ VIEWS; ; 08/10/2023 11:57 pm INDICATION: Signs/Symptoms:cocnern for fb in hand, pt cut hand on broken window. COMPARISON: None. ACCESSION NUMBER(S): [id number] ORDERING CLINICIAN: LESTER SMITH FINDINGS: Bone mineralization is normal. There is no evidence of fracture or dislocation. The joint spaces are maintained. No evidence of radiopaque foreign body. IMPRESSION: No evidence of acute fracture or dislocation. No evidence of radiopaque foreign body. Signed by: Gerald Niño 08/11/2023 12:17 AM Dictation workstation: [id number] [facility] XR Hand - right 3 Viewson Radiology Study observation (narrative) [facility] Work Phone: Absolute lymphocyte countOrd ered By: Hieu Man on 07-02-2023 Lymphocytes Auto (Unsp spec) [#/Vol] 3.96 10*3/uL 0.83-4.51 [facility] Automated lymphocyte count a s percentage of total leukocytesOrdered By: Hieu Man on 07-02-2023 Lymphocytes/100 WBC Auto (Unsp spec) 34.2 % 19-41 [facility] Basophil percentageOrdered B y: Hieu Man on 07-02-2023 Basophils/100 WBC (Bld) 0.6 % 0-1 [facility] Chloride [Moles/Vol] 108 mmol/L 98-107 [facility] Eosinophils/100 WBC (Bld) 2.2 % 0-5 [facility] Glucose [Mass/Vol] 106 mg/dL 74-106 [facility] Comment on above: Fasting Glucose resu lt from 100 to 125 mg/dL suggests IMPAIRED HOMEOSTASIS per A.D.A. criteria. Hemoglobin (Bld) [Mass/Vol] 12.6 g/dL 13.0-16.5 [facility] Monocytes/100 WBC (Bld) 6.3 % 0-10 [facility] Neutrophils (Bld) [#/Vol] 6.5 10*3/uL 2.0-7.7 [facility] Neutrophils/100 WBC (Bld) 56.4 % 47-70 [facility] Potassium [Moles/Vol] 4.2 mmol/L 3.5-5.1 [facility] Sodium [Moles/Vol] 141 mmol/L 136-145 [facility] WBC (Bld) [#/Vol] 11.6 10*3/uL 4.4-11.0 [facility] Determination of erythrocyte mean corpuscular volume (MCV)Ordered By: Hieu Man on 07-02-2023 MCV (RBC) [Entitic vol] 86.4 fL 80-94 [facility] Erythrocyte distribution wid th ratioOrdered By: Hieu Man on 07-02-2023 Erythrocyte distribution width (RBC) [Ratio] 15.0 % 11.6-14.6 [facility] Erythrocyte distribution wid th standard deviationOrdered By: Hieu Man on 07-02-2023 Erythrocyte distribution width (RBC) [Entitic vol] 47.8 fL 35.1-43.9 [facility] Hematocrit Auto (Bld) [Volum e fraction]Ordered By: Hieu Man on 07-02-2023 Hematocrit (Bld) [Volume fraction] 38.6 % 40-54 [facility] Immature granulocytes/100 WB C Auto (Bld)Ordered By: Hieu Man on 07-02-2023 Immature granulocytes/100 WBC (Bld) 0.300 % 0.0-0.9 [facility] Comment on above: IG% - Immature Granu locytes (promyelocytes, myelocytes and metamyelocytes) > 1% indicates that a LEFT SHIFT is Present. Laboratory - Chemistry and C hemistry - challengeOrdered By: Hieu Man on 07-02-2023 CO2 [Moles/Vol] 27.0 mmol/L 21.0-32.0 [facility] Urea nitrogen/Creatinine [Mass ratio] 18.0 mg/mg 10-20 [facility] Laboratory - Drug toxicology Ordered By: Hieu Man on 07-02-2023 Amphetamines Ql (U) Negative <1000 ng/mL [facility] Benzodiazepines Ql (U) Negative < 200 ng/mL [facility] Cannabinoids Screen Ql (U) Positive < 50 ng/mL [facility] Cocaine Ql (U) Negative < 300 ng/mL [facility] Opiates Ql (U) Negative < 300 ng/mL [facility] Laboratory - Hematology and Cell countsOrdered By: Hieu Man on 07-02-2023 MCH (RBC) [Entitic mass] 28.2 pg 27.0-32.0 [facility] MCHC (RBC) [Mass/Vol] 32.6 g/dL 32-36 [facility] Nucleated RBC/100 WBC (Bld) [Ratio] 0 % 0-5 [facility] Platelet mean volume (Bld) [Entitic vol] 10.5 fL 6.2-12.0 [facility] Platelets (Bld) [#/Vol] 290 10*3/uL 150-450 [facility] No Panel InformationOrdered By: Hieu Man on 07-02-2023 MDMA (Ecstasy) Screen Negative < 500 ng/mL [facility] Urine Barbiturates Screen Negative < 200 ng/mL [facility] Urine Drug Screen Comment [facility] Comment on above: CONFIRMATORY TESTING FOR [...] Urine Methadone Screen Negative < 300 ng/mL [facility] Estimated Creatinine Clearance Calc 119.46 ml/min [facility] Estimated GFR (MDRD) Amer 137 mL/min >60 [facility] Comment on above: GFR Calc Estimated GFR (MDRD) Non-Af Amer 113 mL/min >60 [facility] Comment on above: Non- GFR Calc Ethyl Alcohol Level < 3.0 mg/dL [facility] Comment on above: The serum:whole bloo d ethanol ratio is approximately 1.14and varies slightly with hematocrit. Medical Alcohol reference interval and critical value innon-tolerant individuals; 50 - 100 Impairment 100 Intoxication 100 - 250 Severe Poisoning 250 - 400 Deep/possible fatal coma RBC Auto (Bld) [#/Vol]Ordere d By: Hieu Man on 07-02-2023 RBC (Bld) [#/Vol] 4.47 10*6/uL 4.6-6.2 [facility] Serum or plasma calcium simone urement (mass/volume)Ordered By: Hieu Man on 07-02-2023 Calcium [Mass/Vol] 8.9 mg/dL 8.5-10.1 [facility] Serum or plasma creatinine m easurement (mass/volume)Ordered By: Hieu Man on 07-02-2023 Creatinine [Mass/Vol] 0.83 mg/dL 0.70-1.30 [facility] Comment on above: The validity of the calculated GFR & GFRAA in patients over 70 years has not been determined. Clinical correlation is essential. Serum or plasma urea nitroge n measurement (mass/volume)Ordered By: Hieu Man on 07-02-2023 Urea nitrogen [Mass/Vol] 15 mg/dL 7-18 [facility] Thin prep Papanicolaou smear with manual screeningOrdered By: Hieu Man on 07-02-2023 Thin prep Papanicolaou smear with manual screening 6 5-15 [facility] Urine phencyclidine (PCP) de tectionOrdered By: Hieu Man on 07-02-2023 Phencyclidine Ql (U) Negative < 25 ng/mL [facility] ARTERIAL BLOOD GASESon 01-04 Base deficit (BldA) [Moles/Vol] -23 mmol/L Low -2-0 [facility] Comment on above: Order Comment: Speci men Type: ARTERIAL BLOOD SPECIMENOrdering Facility: [facility] Address: [address] [place] [address] Performed By: #### A LLBG ####[facility] LABORATORYCLIA [id number] [address] STATES [facility] Body temperature 97.52 [degF] Normal [facility] Comment on above: Order Comment: Speci men Type: ARTERIAL BLOOD SPECIMENOrdering Facility: [facility] Address: [address] [place] [address] Performed By: #### A LLBG ####[facility] LABORATORYCLIA [id number] [address] STATES OF [place] Calcium.ionized (BldV) [Mass/Vol] 1.12 mmol/L Normal 1.08-1.30 [facility] Comment on above: Order Comment: Speci men Type: ARTERIAL BLOOD SPECIMENOrdering Facility: [facility] Address: [address] [place] [address] Performed By: #### A LLBG ####[facility] LABORATORYCLIA [id number] [address] Calcium.ionized adjusted to pH 7.4 (BldA) [Moles/Vol] Normal [facility] Comment on above: Order Comment: Speci men Type: ARTERIAL BLOOD SPECIMENOrdering Facility: [facility] Address: [address] [place] [address] Result Comment: Simone ured pH is <7.20. Unable to report normalized Calcium. Performed By: #### A LLBG ####[facility] LABORATORYCLIA [id number] [address] OF [place] Carboxyhemoglobin (BldA) [Mass fraction] 3.8 % High 0.0-2.0 [facility] Comment on above: Order Comment: Speci men Type: ARTERIAL BLOOD SPECIMENOrdering Facility: [facility] Address: [address] [place], [place] [id number] Result Comment: Carb oxyhemoglobin Reference Range for Smokers: 2.0-8.0% Performed By: #### A LLBG ####[facility]ORATORYCLIA [id number] [address] STATES OF [facility] Chloride [Moles/Vol] 102 mmol/L Normal 102-109 [facility] Comment on above: Order Comment: Speci men Type: ARTERIAL BLOOD SPECIMENOrdering Facility: [facility] Address: [address] [place] [address] Performed By: #### A LLBG ####[facility] LABORATORYCLIA [id number] [address] CO2 (Bld) [Partial pressure] mm[Hg] High 36-46 [facility] Comment on above: Order Comment: Speci men Type: ARTERIAL BLOOD SPECIMENOrdering Facility: [facility] Address: [address] [place] [address] Performed By: #### A LLBG ####[facility]ORATORYCLIA [id number] [address] CO2 adjusted to patient's actual temperature (Bld) [Partial pressure] >100 High 36-46 [facility] Comment on above: Order Comment: Speci men Type: ARTERIAL BLOOD SPECIMENOrdering Facility: [facility] Address: [address] [place] [address] Performed By: #### A LLBG ####[facility]ORATORYCLIA [id number] [address] [place] Glucose [Mass/Vol] mg/dL Critically low 60-105 [facility] Comment on above: Order Comment: Speci men Type: ARTERIAL BLOOD SPECIMENOrdering Facility: [facility] Address: [address] [place] [address] Performed By: #### A LLBG ####[facility] GENERAL LABORATORYCLIA [id number] [address] [place] HCO3 (Bld) [Moles/Vol] 22 mmol/L Normal 22-26 [facility] Comment on above: Order Comment: Speci men Type: ARTERIAL BLOOD SPECIMENOrdering Facility: [facility] Address: [address] [place] [address] Performed By: #### A LLBG ####[facility] LABORATORYCLIA [id number] [address] [place] Hematocrit (Bld) [Volume fraction] 56.6 % High 39.0-51.0 [facility] Comment on above: Order Comment: Speci men Type: ARTERIAL BLOOD SPECIMENOrdering Facility: [facility] Address: [address] [place] [address] Performed By: #### A LLBG ####[facility] LABORATORYCLIA [id number] [address] [place] Hemoglobin (Bld) [Mass/Vol] 18.5 g/dL High 13.0-17.0 [facility] Comment on above: Order Comment: Speci men Type: ARTERIAL BLOOD SPECIMENOrdering Facility: [facility] Address: [address] [place] [address] Performed By: #### A LLBG ####[facility] LABORATORYCLIA [id number] [address] [place] Lactate [Moles/Vol] 17.0 mmol/L High 0.5-2.2 [facility] Comment on above: Order Comment: Speci men Type: ARTERIAL BLOOD SPECIMENOrdering Facility: [facility] Address: [address] [place] [address] Performed By: #### A LLBG ####[facility] LABORATORYCLIA [id number] [address] [place] Methemoglobin (Bld) [Mass fraction] 0.6 % Normal 0.0-1.5 [facility] Comment on above: Order Comment: Speci men Type: ARTERIAL BLOOD SPECIMENOrdering Facility: [facility] Address: [address] [place] [address] Performed By: #### A LLBG ####[facility] LABORATORYCLIA [id number] [address] O2 THERAPY RA=Room Air Normal [facility] Comment on above: Order Comment: Speci men Type: ARTERIAL BLOOD SPECIMENOrdering Facility: [facility] Address: [address] [place] [address] Performed By: #### A LLBG ####[facility] LABORATORYCLIA [id number] [address] [place] Oxygen (Bld) [Partial pressure] mm[Hg] Critically low 85-95 [facility] Comment on above: Order Comment: Speci men Type: ARTERIAL BLOOD SPECIMENOrdering Facility: [facility] Address: [address] [place] [address] Performed By: #### A LLBG ####[facility] LABORATORYCLIA [id number] [address] [place] Oxygen adjusted to patient's actual temperature (Bld) [Partial pressure] <40 Critically low 85-95 [facility] Comment on above: Order Comment: Speci men Type: ARTERIAL BLOOD SPECIMENOrdering Facility: [facility] Address: [address] [place] [address] Performed By: #### A LLBG ####[facility] LABORATORYCLIA [id number] [address] [place] Oxyhemoglobin (BldA) [Mass fraction] 9 % Low 95-98 [facility] Comment on above: Order Comment: Speci men Type: ARTERIAL BLOOD SPECIMENOrdering Facility: [facility] Address: [address] [place] [address] Performed By: #### A LLBG ####[facility] LABORATORYCLIA [id number] [place] [address] [place] pH (Bld) 6.82 [pH] Critically low 7.35-7.45 [facility] Comment on above: Order Comment: Speci men Type: ARTERIAL BLOOD SPECIMENOrdering Facility: [facility] Address: [address] [place] [address] Performed By: #### A LLBG ####[facility] LABORATORYCLIA [id number] [address] STATES OF [facility] pH adjusted to patient's actual temperature (Bld) 6.83 Critically low 7.35-7.45 [facility] Comment on above: Order Comment: Speci men Type: ARTERIAL BLOOD SPECIMENOrdering Facility: [facility] Address: [address] [place] [address] Performed By: #### A LLBG ####[facility] LABORATORYCLIA [id number] [address] STATES [facility] PO2 / FIO2 RATIO <190 Low >300 [facility] Comment on above: Order Comment: Speci men Type: ARTERIAL BLOOD SPECIMENOrdering Facility: [facility] Address: [address] [place] [address] Performed By: #### A LLBG ####[facility] LABORATORYCLIA [id number] [address] [place] Potassium [Moles/Vol] 6.4 mmol/L Critically high 3.5-5.0 [facility] Comment on above: Order Comment: Speci men Type: ARTERIAL BLOOD SPECIMENOrdering Facility: [facility] Address: [address] [place] [address] Performed By: #### A LLBG ####[facility] LABORATORYCLIA [id number] [address] [place] Sodium [Moles/Vol] 142 mmol/L Normal 136-144 [facility] Comment on above: Order Comment: Speci men Type: ARTERIAL BLOOD SPECIMENOrdering Facility: [facility] Address: [address] [place] [address] Performed By: #### A LLBG ####[facility] LABORATORYCLIA [id number] [address] STATES [facility] Absolute lymphocyte countOrd ered By: Wellington Bower on 01-04-2023 Lymphocytes Auto (Unsp spec) [#/Vol] 2.24 10*3/uL 0.83-4.51 [facility] Basophil percentageOrdered B y: Wellington Bower on 01-04-2023 Basophils/100 WBC (Bld) 0.5 % 0-1 [facility] Chloride [Moles/Vol] 105 mmol/L 98-107 [facility] Eosinophils/100 WBC (Bld) 2.7 % 0-5 [facility] Glucose [Mass/Vol] 116 mg/dL 74-106 [facility] Comment on above: Fasting Glucose resu lt from 100 to 125 mg/dL suggests IMPAIRED HOMEOSTASIS per A.D.A. criteria. Neutrophils (Bld) [#/Vol] 5.4 10*3/uL 2.0-7.7 [facility] Neutrophils/100 WBC (Bld) 63.2 % 47-70 [facility] Potassium [Moles/Vol] 4.0 mmol/L 3.5-5.1 [facility] Sodium [Moles/Vol] 137 mmol/L 136-145 [facility] WBC (Bld) [#/Vol] 8.5 10*3/uL 4.4-11.0 [facility] Blood erythrocytes count (nu mber/volume)Ordered By: Wellington Bower on 01-04-2023 RBC (Bld) [#/Vol] 4.46 10*6/uL 4.6-6.2 [facility] Blood hemoglobin measurement (mass/volume)Ordered By: Wellington Bower on 01-04-2023 Hemoglobin (Bld) [Mass/Vol] 13.0 g/dL 13.0-16.5 [facility] Blood lymphocytes/100 leukoc ytesOrdered By: Wellington Bower on 01-04-2023 Lymphocytes/100 WBC (Bld) 26.4 % 19-41 [facility] Blood monocytes/100 leukocyt esOrdered By: Wellington Bower on 01-04-2023 Monocytes/100 WBC (Bld) 6.8 % 0-10 [facility] Blood platelet mean volumeOr dered By: Wellington Bower on 01-04-2023 Platelet mean volume (Bld) [Entitic vol] 10.9 fL 6.2-12.0 [facility] CBC panel Auto (Bld)on 01-04 Erythrocyte distribution width (RBC) [Ratio] 14.2 % Normal 11.5-15.0 [facility] Comment on above: Order Comment: Speci men Type: BLOOD SPECIMEN Ordering [facility]: [facility] Address: [address] [place] [address] Performed By: #### 5 8410-2 #### [facility] CLIA [id number] [address] Hematocrit (Bld) [Volume fraction] 37.6 % Low 39.0-51.0 [facility] Comment on above: Order Comment: Speci men Type: BLOOD SPECIMEN Ordering Facility: [facility] Address: [address] [place] [address] Performed By: #### 5 8410-2 #### [facility] CLIA [id number] [address] Hemoglobin (Bld) [Mass/Vol] 12.6 g/dL Low 13.0-17.0 [facility] Comment on above: Order Comment: Speci men Type: BLOOD SPECIMEN Ordering Facility: [facility] Address: [address] [place] [address] Performed By: #### 5 8410-2 #### [facility] CLIA [id number] [address] MCH (RBC) [Entitic mass] 29.1 pg Normal 26.0-34.0 [facility] Comment on above: Order Comment: Speci men Type: BLOOD SPECIMEN Ordering Facility: [facility] Address: [address] [place] [address] Performed By: #### 5 8410-2 #### [facility] CLIA [id number] [address] OF [facility] MCHC (RBC) [Mass/Vol] 33.5 g/dL Normal 30.5-36.0 [facility] Comment on above: Order Comment: Speci men Type: BLOOD SPECIMEN Ordering Facility: [facility] Address: [address] [place] [address] Performed By: #### 5 8410-2 #### [facility] CLIA [id number] [address] [place] MCV (RBC) [Entitic vol] 86.8 fL Normal 80.0-100.0 [facility] Comment on above: Order Comment: Speci men Type: BLOOD SPECIMEN Ordering Facility: [facility] Address: [address] [address] Performed By: #### 5 8410-2 #### [facility] CLIA [id number] [address] [place] Nucleated RBC (Bld) [#/Vol] 10*3/uL Normal <0.01 [facility] Comment on above: Order Comment: Speci men Type: BLOOD SPECIMEN Ordering [facility]: [facility] Address: [address] [address] Performed By: #### 5 8410-2 #### [facility] CLIA [id number] [address] Platelet mean volume (Bld) [Entitic vol] 10.9 fL Normal 9.0-12.7 [facility] Comment on above: Order Comment: Speci men Type: BLOOD SPECIMEN Ordering [facility]: [facility] Address: [address] [address] Performed By: #### 5 8410-2 #### [facility] CLIA [id number] [address] Platelets (Bld) [#/Vol] 259 10*3/uL Normal 150-400 [facility] Comment on above: Order Comment: Speci men Type: BLOOD SPECIMEN Ordering Facility: [facility] Address: [address] [address] Performed By: #### 5 8410-2 #### [facility] CLIA [id number] [address] [place] RBC (Bld) [#/Vol] 4.33 10*6/uL Normal 4.20-6.00 [facility] Comment on above: Order Comment: Speci men Type: BLOOD SPECIMEN Ordering [facility]: [facility] Address: [address] [address] Performed By: #### 5 8410-2 #### [facility] CLIA [id number] [address] [id number] [place] WBC (Bld) [#/Vol] 11.95 10*3/uL High 3.70-11.00 [facility] Comment on above: Order Comment: Speci men Type: BLOOD SPECIMEN Ordering Facility: [facility] Address: [address] [place] [id number] Performed By: #### 5 8410-2 #### [facility] CLIA [id number] 1 [place] [address] [facility] CONSULTon 01-04-2023 CONSULT HNO ID: [id number] Author: Rachel Lawrence MD Service: Urology Author [...] sickle cell disease. Patient was seen at [place] and was transferred to [facility] for further management. Denies any change [...] kg (169 lb) Height: 167.6 cm (5' 6") General: Alert, in no acute distress Head: [...] (k/uL) Date Value 02/20/2020 216 Urinalysis: Specific [place], Ur Date Value Ref Range Status 02/27/2017 [...] next 1-2 weeks, wishes to fu in [place] and will touch base with [place] urology - Patient educated/advised to return to ED if he develops another erection lasting >2 hours and especially >4h as his risk of erectile dysfunction will be increased. Also advised that close follow up with urology is important for similar reasons - Patient advised he is to expect pain and sw (more content not included)... Normal [facility] Determination of erythrocyte mean corpuscular volume (MCV)Ordered By: Wellington Bower on 01-04-2023 MCV (RBC) [Entitic vol] 89.0 fL 80-94 [facility] ED NOTEon 01-04-2023 ED NOTE HNO ID: [id number] Author: Yaa Ruiz RN Service: Emergency Medicine Author Type: Registered Nurse Type: ED Notes Filed: 01/04/2023 7:16 PM Note Text: Report given to MAXIMILIAN Ramirez [facility] ED NOTE HNO ID: [id number] Author: Yaa Ruiz RN Service: Emergency Medicine Author Type: Registered Nurse Type: ED Notes Filed: 01/04/2023 6:53 PM Note Text: Urology remains at bedside performing procedure. Pt stats are stable. [facility] ED NOTE HNO ID: [id number] Author: Yaa Ruiz RN Service: Emergency Medicine Author Type: Registered Nurse Type: ED Notes Filed: 01/04/2023 6:46 PM Note Text: O2 prepared at bedside [facility] ED NOTE HNO ID: [id number] Author: Yaa Ruiz RN Service: Emergency Medicine Author Type: Registered Nurse Type: ED Notes Filed: 01/04/2023 6:22 PM Note Text: Urology at bedside [facility] ED NOTE HNO ID: [id number] Author: Yaa Ruiz RN Service: Emergency Medicine Author Type: Registered Nurse Type: ED Notes Filed: 01/04/2023 6:51 PM Note Text: All medications prepared at bedside for Urology physicians. [facility] ED NOTE HNO ID: [id number] Author: Yaa Ruiz RN Service: Emergency Medicine Author Type: Registered Nurse Type: ED Notes Filed: 01/04/2023 6:28 PM Note Text: Pt on continuous cardiac and SPO2 monitoring. Pt has call light at bedside. [facility] ED NOTE HNO ID: [id number] Author: Russell Wiggins RN Service: ? Author Type: Registered Nurse Type: ED Notes Filed: 01/04/2023 5:24 PM Note Text: Bed: 22-ED Expected date: Expected time: Means of arrival: Comments: jacqui [facility] ED PROV NOTEon 01-04-2023 ED PROV NOTE HNO ID: [id number] Author: Doreen Blanco MD Service: Emergency Medicine [...] Priapism: Pt arrives as a transfer from [place]. Pt has had priapism since 1000 this morning. Pt states has 10/10 pain and is AANDO x4. 33 year old male with PMH of generalized anxiety disorder and depression who presented with chief complaint of priapism. Patient initially presented to [place] ED and was sent to [facility] to see urology. Patient reports this morning around 10am, he woke up with a painful erection that has not gone away. Patient notes his penis feels like it was snapped in half and he feels like he is "going to the light". The only medications he took last night [...] 76.7 kg (169 lb) 1.676 m (5' 6") Physical Exam Vitals reviewed. Constitutional: Appearance: Normal [...] (more content not included)... Normal [facility] Hematocrit Auto (Bld) [Volum e fraction]Ordered By: Wellington Bower on 01-04-2023 Hematocrit (Bld) [Volume fraction] 39.7 % 40-54 [facility] Laboratory - Chemistry and C hemistry - challengeOrdered By: Wellington Bower on 01-04-2023 CO2 [Moles/Vol] 29.0 mmol/L 21.0-32.0 [facility] Urea nitrogen/Creatinine [Mass ratio] 6.3 mg/mg - [facility] Laboratory - Hematology and Cell countsOrdered By: Wellington Bower on 01-04-2023 Erythrocyte distribution width (RBC) [Entitic vol] 46.1 fL 35.1-43.9 [facility] Erythrocyte distribution width (RBC) [Ratio] 14.3 % 11.6-14.6 [facility] Immature granulocytes/100 WBC (Bld) 0.400 % 0.0-0.9 [facility] Comment on above: IG% - Immature Granu locytes (promyelocytes, myelocytes and metamyelocytes) > 1% indicates that a LEFT SHIFT is Present. MCH (RBC) [Entitic mass] 29.1 pg 27.0-32.0 [facility] Nucleated RBC/100 WBC (Bld) [Ratio] 0 % 0-5 [facility] MCHC Auto (RBC) [Mass/Vol]Or dered By: Wellington Bower on 01-04-2023 MCHC (RBC) [Mass/Vol] 32.7 g/dL 32-36 [facility] No Panel InformationOrdered By: Wellington Bower on 01-04-2023 Estimated Creatinine Clearance Calc 89.32 ml/min [facility] Estimated GFR (MDRD) Amer 99 mL/min >60 [facility] Comment on above: GFR Calc Estimated GFR (MDRD) Non-Af Amer 82 mL/min >60 [facility] Comment on above: Non- GFR Calc PT panel Coag (PPP)on 2022 INR Coag (PPP) [Relative time] 1.0 {INR} Normal 0.9-1.3 [facility] Comment on above: Order Comment: Jo patton Type: BLOOD SPECIMENOrdering Facility: [facility] Address: [address] [place] [phone] Result Comment: Martha min K Antagonist (VKA) Therapeutic Range: INR 2 to 3 (Target INR of 2.5) Note: For patients treated with VKA drugs, such as warfarin, the [employer] 2012 Guideline recommends [...] PUENTE, et al. Chest 2012, 141:7S-47S Meghann RA, et al. JAC 2017, 70: 252-289 Performed By: #### 3 4528-0 ####[facility] LABORATORYCLIA [id number] [place] [address] [place] PT Coag (PPP) [Time] 10.4 s Normal 9.7-13.0 [facility] Comment on above: Order Comment: Jo patton Type: BLOOD SPECIMENOrdering Facility: [facility] Address: [place] [address] Performed By: #### 3 4528-0 ####[facility] LABORATORYCLIA [id number] [place] [address] [place] Platelets bldOrdered By: Benita Bower on 01-04-2023 Platelets (Bld) [#/Vol] 250 10*3/uL 150-450 [facility] Serum or plasma calcium simone urement (mass/volume)Ordered By: Wellington Bower on 01-04-2023 Calcium [Mass/Vol] 8.3 mg/dL 8.5-10.1 [facility] Serum or plasma creatinine m easurement (mass/volume)Ordered By: Wellington Bower on 01-04-2023 Creatinine [Mass/Vol] 1.11 mg/dL 0.70-1.30 [facility] Comment on above: The validity of the calculated GFR & GFRAA in patients over 70 years has not been determined. Clinical correlation is essential. Serum or plasma urea nitroge n measurement (mass/volume)Ordered By: Wellington Bower on 01-04-2023 Urea nitrogen [Mass/Vol] 7 mg/dL 7-18 [facility] Thin prep Papanicolaou smear with manual screeningOrdered By: Wellington Bower on 01-04-2023 Thin prep Papanicolaou smear with manual screening 3 5-15 [facility] Absolute lymphocyte countOrd ered By: ED PROVIDER on 09-03-2022 Lymphocytes Auto (Unsp spec) [#/Vol] 1.13 10*3/uL 0.83-4.51 [facility] Basophil percentageOrdered B y: ED PROVIDER on 09-03-2022 Basophils/100 WBC (Bld) 0.3 % 0-1 [facility] Chloride [Moles/Vol] 100 mmol/L 98-107 [facility] Eosinophils/100 WBC (Bld) 1.0 % 0-5 [facility] Glucose [Mass/Vol] 124 mg/dL 74-106 [facility] Comment on above: Fasting Glucose resu lt from 100 to 125 mg/dL suggests IMPAIRED HOMEOSTASIS per A.D.A. criteria. Neutrophils (Bld) [#/Vol] 7.0 10*3/uL 2.0-7.7 [facility] Neutrophils/100 WBC (Bld) 75.4 % 47-70 [facility] Potassium [Moles/Vol] 3.7 mmol/L 3.5-5.1 [facility] Sodium [Moles/Vol] 135 mmol/L 136-145 [facility] WBC (Bld) [#/Vol] 9.2 10*3/uL 4.4-11.0 [facility] Blood erythrocytes count (nu mber/volume)Ordered By: ED PROVIDER on 09-03-2022 RBC (Bld) [#/Vol] 4.77 10*6/uL 4.6-6.2 [facility] Blood hemoglobin measurement (mass/volume)Ordered By: ED PROVIDER on 09-03-2022 Hemoglobin (Bld) [Mass/Vol] 13.3 g/dL 13.0-16.5 [facility] Blood lymphocytes/100 leukoc ytesOrdered By: ED PROVIDER on 09-03-2022 Lymphocytes/100 WBC (Bld) 12.3 % 19-41 [facility] Blood monocytes/100 leukocyt esOrdered By: ED PROVIDER on 09-03-2022 Monocytes/100 WBC (Bld) 10.7 % 0-10 [facility] Blood platelet mean volumeOr dered By: ED PROVIDER on 09-03-2022 Platelet mean volume (Bld) [Entitic vol] 10.1 fL 6.2-12.0 [facility] Determination of erythrocyte mean corpuscular volume (MCV)Ordered By: ED PROVIDER on 09-03-2022 MCV (RBC) [Entitic vol] 86.8 fL 80-94 [facility] Hematocrit Auto (Bld) [Volum e fraction]Ordered By: ED PROVIDER on 09-03-2022 Hematocrit (Bld) [Volume fraction] 41.4 % 40-54 [facility] Influenza virus A and B and SARS-CoV-2 (COVID-19) Ag panel - Upper respiratory specimOrdered By: Dr. Cardona on 09-03-2022 SARS-CoV-2 (COVID-19) RNA DINAH+probe Ql (Resp) [facility] Laboratory - Chemistry and C hemistry - challengeOrdered By: ED PROVIDER on 09-03-2022 CO2 [Moles/Vol] 26.0 mmol/L 21.0-32.0 [facility] Urea nitrogen/Creatinine [Mass ratio] 3.2 mg/mg 10-20 [facility] Laboratory - Hematology and Cell countsOrdered By: ED PROVIDER on 09-03-2022 Erythrocyte distribution width (RBC) [Entitic vol] 44.4 fL 35.1-43.9 [facility] Erythrocyte distribution width (RBC) [Ratio] 13.9 % 11.6-14.6 [facility] Immature granulocytes/100 WBC (Bld) 0.300 % 0.0-0.9 [facility] Comment on above: IG% - Immature Granu locytes (promyelocytes, myelocytes and metamyelocytes) > 1% indicates that a LEFT SHIFT is Present. MCH (RBC) [Entitic mass] 27.9 pg 27.0-32.0 [facility] Nucleated RBC/100 WBC (Bld) [Ratio] 0 % 0-5 [facility] MCHC Auto (RBC) [Mass/Vol]Or dered By: ED PROVIDER on 09-03-2022 MCHC (RBC) [Mass/Vol] 32.1 g/dL 32-36 [facility] No Panel InformationOrdered By: ED PROVIDER on 09-03-2022 Estimated Creatinine Clearance Calc 107.60 ml/min [facility] Estimated GFR (MDRD) Amer 121 mL/min >60 [facility] Comment on above: GFR Calc Estimated GFR (MDRD) Non-Af Amer 100 mL/min >60 [facility] Comment on above: Non- GFR Calc Troponin I High Sensitivity 5 pg/mL 3.0-78.0 [facility] Comment on above: Please Note: [place] t Units and Gender Specific Reference Ranges. For more information see Policy Stat Procedure [place] High Sensitivity Troponin (TNIH) and attachments. Platelets bldOrdered By: ED PROVIDER on 09-03-2022 Platelets (Bld) [#/Vol] 270 10*3/uL 150-450 [facility] Serum or plasma calcium simone urement (mass/volume)Ordered By: ED PROVIDER on 09-03-2022 Calcium [Mass/Vol] 8.6 mg/dL 8.5-10.1 [facility] Serum or plasma creatinine m easurement (mass/volume)Ordered By: ED PROVIDER on 09-03-2022 Creatinine [Mass/Vol] 0.93 mg/dL 0.70-1.30 [facility] Comment on above: The validity of the calculated GFR & GFRAA in patients over 70 years has not been determined. Clinical correlation is essential. Serum or plasma urea nitroge n measurement (mass/volume)Ordered By: ED PROVIDER on 09-03-2022 Urea nitrogen [Mass/Vol] 3 mg/dL 7-18 [facility] Thin prep Papanicolaou smear with manual screeningOrdered By: ED PROVIDER on 09-03-2022 Thin prep Papanicolaou smear with manual screening 9 5-15 [facility] Absolute lymphocyte counton 12-27-2021 Lymphocytes Auto (Unsp spec) [#/Vol] 1.89 10*3/uL 0.83-4.51 [facility] Work Phone: Basophil percentageon 2021 Basophils/100 WBC (Bld) 0.5 % 0-1 [facility] Work Phone: Bilirubin [Mass/Vol] 0.40 mg/dL 0.20-1.00 [facility] Work Phone: Comment on above: For patients on eltr ombopag therapy, use of Dimension [place] TBIL is not recommended. Chloride [Moles/Vol] 94 mmol/L 98-107 [facility] Work Phone: Eosinophils/100 WBC (Bld) 1.6 % 0-5 [facility] Work Phone: Glucose [Mass/Vol] 107 mg/dL 74-106 [facility] Work Phone: Comment on above: Fasting Glucose resu lt from 100 to 125 mg/dL suggests IMPAIRED HOMEOSTASIS per A.D.A. criteria. Neutrophils (Bld) [#/Vol] 5.5 10*3/uL 2.0-7.7 [facility] Work Phone: Neutrophils/100 WBC (Bld) 66.7 % 47-70 [facility] Work Phone: Potassium [Moles/Vol] 3.1 mmol/L 3.5-5.1 [facility] Work Phone: [phone] Protein [Mass/Vol] 6.9 g/dL 6.4-8.2 [facility] Work Phone: [phone] Sodium [Moles/Vol] 130 mmol/L 136-145 [facility] Work Phone: WBC (Bld) [#/Vol] 8.2 10*3/uL 4.4-11.0 [facility] Work Phone: Blood erythrocytes count (nu mber/volume)on 12-27-2021 RBC (Bld) [#/Vol] 4.77 10*6/uL 4.6-6.2 [facility] Work Phone: [phone] Blood hemoglobin measurement (mass/volume)on 12-27-2021 Hemoglobin (Bld) [Mass/Vol] 13.0 g/dL 13.0-16.5 [facility] Work Phone: [phone] Blood lymphocytes/100 leukoc yteson 12-27-2021 Lymphocytes/100 WBC (Bld) 22.9 % 19-41 [facility] Work Phone: Blood monocytes/100 leukocyt eson 12-27-2021 Monocytes/100 WBC (Bld) 8.1 % 0-10 [facility] Work Phone: Blood platelet mean volumeon 12-27-2021 Platelet mean volume (Bld) [Entitic vol] 9.4 fL 6.2-12.0 [facility] Work Phone: Determination of erythrocyte mean corpuscular volume (MCV)on 12-27-2021 MCV (RBC) [Entitic vol] 81.3 fL 80-94 [facility] Work Phone: Direct bilirubinon 2 Bilirubin.direct [Mass/Vol] 0.10 mg/dL 0.00-0.30 [facility] Work Phone: Hematocrit Auto (Bld) [Volum e fraction]on 12-27-2021 Hematocrit (Bld) [Volume fraction] 38.8 % 40-54 [facility] Work Phone: Laboratory - Chemistry and C hemistry - challengeon 12-27-2021 ALP [Catalytic activity/Vol] 62 U/L 45-117 [facility] Work Phone: ALT [Catalytic activity/Vol] 12 U/L 16-61 [facility] Work Phone: CO2 [Moles/Vol] 26.0 mmol/L 21.0-32.0 [facility] Work Phone: Globulin (S) [Mass/Vol] 3.1 g/dL 2.2-4.2 [facility] Work Phone: Lipase [Catalytic activity/Vol] 131 U/L 73-393 [facility] Work Phone: Urea nitrogen/Creatinine [Mass ratio] 2.3 mg/mg 10-20 [facility] Work Phone: Laboratory - Hematology and Cell countson 12-27-2021 Erythrocyte distribution width (RBC) [Entitic vol] 38.3 fL 35.1-43.9 [facility] Work Phone: Erythrocyte distribution width (RBC) [Ratio] 13.0 % 11.6-14.6 [facility] Work Phone: Immature granulocytes/100 WBC (Bld) 0.200 % 0.0-0.9 [facility] Work Phone: Comment on above: IG% - Immature Granu locytes (promyelocytes, myelocytes and metamyelocytes) > 1% indicates that a LEFT SHIFT is Present. MCH (RBC) [Entitic mass] 27.3 pg 27.0-32.0 [facility] Work Phone: Nucleated RBC/100 WBC (Bld) [Ratio] 0 % 0-5 [facility] Work Phone: MCHC Auto (RBC) [Mass/Vol]on 12-27-2021 MCHC (RBC) [Mass/Vol] 33.5 g/dL 32-36 [facility] Work Phone: No Panel Informationon 12-27 Estimated Creatinine Clearance Calc 116.08 ml/min [facility] Work Phone: Estimated GFR (MDRD) Amer 132 mL/min >60 [facility] Work Phone: Comment on above: GFR Calc Estimated GFR (MDRD) Non-Af Amer 109 mL/min >60 [facility] Work Phone: Comment on above: Non- GFR Calc Troponin I High Sensitivity 4 pg/mL 3.0-78.0 [facility] Work Phone: Comment on above: Please Note: [place] t Units and Gender Specific Reference Ranges. For more information see Policy Stat Procedure [place] High Sensitivity Troponin (TNIH) and attachments. Platelets bldon 12-27-2021 Platelets (Bld) [#/Vol] 268 10*3/uL 150-450 [facility] Work Phone: Serum or plasma albumin simone urement (mass/volume)on 12-27-2021 Albumin [Mass/Vol] 3.8 g/dL 3.2-5.0 [facility] Work Phone: Serum or plasma calcium simone urement (mass/volume)on 12-27-2021 Calcium [Mass/Vol] 8.3 mg/dL 8.5-10.1 [facility] Work Phone: Serum or plasma creatinine m easurement (mass/volume)on 12-27-2021 Creatinine [Mass/Vol] 0.87 mg/dL 0.70-1.30 [facility] Work Phone: Comment on above: The validity of the calculated GFR & GFRAA in patients over 70 years has not been determined. Clinical correlation is essential. Serum or plasma urea nitroge n measurement (mass/volume)on 12-27-2021 Urea nitrogen [Mass/Vol] 2 mg/dL 7-18 [facility] Work Phone: Thin prep Papanicolaou smear with manual screeningon 12-27-2021 Thin prep Papanicolaou smear with manual screening 9 U/L 15-37 [facility] Work Phone: Thin prep Papanicolaou smear with manual screening 10 5-15 [facility] Work Phone: Absolute lymphocyte counton 09-06-2021 Lymphocytes Auto (Unsp spec) [#/Vol] 2.11 10*3/uL 0.83-4.51 [facility] Work Phone: Basophil percentageon 2021 Basophils/100 WBC (Bld) 0.4 % 0-1 [facility] Work Phone: Bilirubin [Mass/Vol] 0.30 mg/dL 0.20-1.00 [facility] Work Phone: [phone] Comment on above: For patients on eltr ombopag therapy, use of Dimension [place] TBIL is not recommended. Chloride [Moles/Vol] 98 mmol/L 98-107 [facility] Work Phone: Eosinophils/100 WBC (Bld) 4.5 % 0-5 [facility] Work Phone: Glucose [Mass/Vol] 92 mg/dL 74-106 [facility] Work Phone: Neutrophils (Bld) [#/Vol] 4.1 10*3/uL 2.0-7.7 [facility] Work Phone: Neutrophils/100 WBC (Bld) 56.1 % 47-70 [facility] Work Phone: Potassium [Moles/Vol] 3.2 mmol/L 3.5-5.1 [facility] Work Phone: Protein [Mass/Vol] 6.6 g/dL 6.4-8.2 [facility] Work Phone: Sodium [Moles/Vol] 131 mmol/L 136-145 [facility] Work Phone: WBC (Bld) [#/Vol] 7.3 10*3/uL 4.4-11.0 [facility] Work Phone: Blood erythrocytes count (nu mber/volume)on 09-06-2021 RBC (Bld) [#/Vol] 4.71 10*6/uL 4.6-6.2 [facility] Work Phone: Blood hemoglobin measurement (mass/volume)on 09-06-2021 Hemoglobin (Bld) [Mass/Vol] 12.8 g/dL 13.0-16.5 [facility] Work Phone: [phone] Blood lymphocytes/100 leukoc yteson 09-06-2021 Lymphocytes/100 WBC (Bld) 29.1 % 19-41 [facility] Work Phone: Blood monocytes/100 leukocyt eson 09-06-2021 Monocytes/100 WBC (Bld) 9.8 % 0-10 [facility] Work Phone: Blood platelet mean volumeon 09-06-2021 Platelet mean volume (Bld) [Entitic vol] 10.3 fL 6.2-12.0 [facility] Work Phone: Determination of erythrocyte mean corpuscular volume (MCV)on 09-06-2021 MCV (RBC) [Entitic vol] 80.9 fL 80-94 [facility] Work Phone: Hematocrit Auto (Bld) [Volum e fraction]on 09-06-2021 Hematocrit (Bld) [Volume fraction] 38.1 % 40-54 [facility] Work Phone: Laboratory - Chemistry and C hemistry - challengeon 09-06-2021 ALP [Catalytic activity/Vol] 64 U/L 45-117 [facility] Work Phone: ALT [Catalytic activity/Vol] 16 U/L 16-61 [facility] Work Phone: CO2 [Moles/Vol] 26.0 mmol/L 21.0-32.0 [facility] Work Phone: Globulin (S) [Mass/Vol] 3.2 g/dL 2.2-4.2 [facility] Work Phone: Lipase [Catalytic activity/Vol] 183 U/L 73-393 [facility] Work Phone: Urea nitrogen/Creatinine [Mass ratio] 9.0 mg/mg 10-20 [facility] Work Phone: Laboratory - Hematology and Cell countson 09-06-2021 Erythrocyte distribution width (RBC) [Entitic vol] 39.2 fL 35.1-43.9 [facility] Work Phone: Erythrocyte distribution width (RBC) [Ratio] 13.3 % 11.6-14.6 [facility] Work Phone: Immature granulocytes/100 WBC (Bld) 0.100 % 0.0-0.9 [facility] Work Phone: Comment on above: IG% - Immature Granu locytes (promyelocytes, myelocytes and metamyelocytes) > 1% indicates that a LEFT SHIFT is Present. MCH (RBC) [Entitic mass] 27.2 pg 27.0-32.0 [facility] Work Phone: Nucleated RBC/100 WBC (Bld) [Ratio] 0 % 0-5 [facility] Work Phone: MCHC Auto (RBC) [Mass/Vol]on 09-06-2021 MCHC (RBC) [Mass/Vol] 33.6 g/dL 32-36 [facility] Work Phone: No Panel Informationon 09-06 Estimated Creatinine Clearance Calc 129.47 ml/min [facility] Work Phone: Estimated GFR (MDRD) Amer 149 mL/min >60 [facility] Work Phone: Comment on above: GFR Calc Estimated GFR (MDRD) Non-Af Amer 123 mL/min >60 [facility] Work Phone: Comment on above: Non- GFR Calc Platelets bldon 09-06-2021 Platelets (Bld) [#/Vol] 254 10*3/uL 150-450 [facility] Work Phone: Serum or plasma albumin simone urement (mass/volume)on 09-06-2021 Albumin [Mass/Vol] 3.4 g/dL 3.2-5.0 [facility] Work Phone: Serum or plasma albumin/glob ulin mass ratioon 09-06-2021 Albumin/Globulin [Mass ratio] 1.1 {ratio} 0.9-2.4 [facility] Work Phone: Serum or plasma calcium simone urement (mass/volume)on 09-06-2021 Calcium [Mass/Vol] 8.6 mg/dL 8.5-10.1 [facility] Work Phone: Serum or plasma creatinine m easurement (mass/volume)on 09-06-2021 Creatinine [Mass/Vol] 0.78 mg/dL 0.70-1.30 [facility] Work Phone: Comment on above: The validity of the calculated GFR & GFRAA in patients over 70 years has not been determined. Clinical correlation is essential. Serum or plasma urea nitroge n measurement (mass/volume)on 09-06-2021 Urea nitrogen [Mass/Vol] 7 mg/dL 7-18 [facility] Work Phone: Thin prep Papanicolaou smear with manual screeningon 09-06-2021 Thin prep Papanicolaou smear with manual screening 9 U/L 15-37 [facility] Work Phone: Thin prep Papanicolaou smear with manual screening 7 5-15 [facility] Work Phone: Absolute lymphocyte counton 09-01-2021 Lymphocytes Auto (Unsp spec) [#/Vol] 2.39 10*3/uL 0.83-4.51 [facility] Work Phone: Basophil percentageon 2021 Basophil percentage 0 SEEN /hpf 0-5 [facility] Work Phone: Basophils/100 WBC (Bld) 0.3 % 0-1 [facility] Work Phone: Bilirubin [Mass/Vol] 0.20 mg/dL 0.20-1.00 [facility] Work Phone: Comment on above: For patients on eltr ombopag therapy, use of Dimension [place] TBIL is not recommended. Chloride [Moles/Vol] 106 mmol/L 98-107 [facility] Work Phone: Eosinophils/100 WBC (Bld) 3.5 % 0-5 [facility] Work Phone: Glucose [Mass/Vol] 100 mg/dL 74-106 [facility] Work Phone: Comment on above: Fasting Glucose resu lt from 100 to 125 mg/dL suggests IMPAIRED HOMEOSTASIS per A.D.A. criteria. Neutrophils (Bld) [#/Vol] 6.2 10*3/uL 2.0-7.7 [facility] Work Phone: Neutrophils/100 WBC (Bld) 64.5 % 47-70 [facility] Work Phone: Potassium [Moles/Vol] 3.4 mmol/L 3.5-5.1 [facility] Work Phone: Protein [Mass/Vol] 6.6 g/dL 6.4-8.2 [facility] Work Phone: Sodium [Moles/Vol] 140 mmol/L 136-145 [facility] Work Phone: WBC (Bld) [#/Vol] 9.6 10*3/uL 4.4-11.0 [facility] Work Phone: Bilirubin Test strip Ql (U)o n 09-01-2021 Bilirubin Ql (U) Negative Negative [facility] Work Phone: Blood erythrocytes count (nu mber/volume)on 09-01-2021 RBC (Bld) [#/Vol] 5.03 10*6/uL 4.6-6.2 [facility] Work Phone: Blood hemoglobin measurement (mass/volume)on 09-01-2021 Hemoglobin (Bld) [Mass/Vol] 13.9 g/dL 13.0-16.5 [facility] Work Phone: Blood lymphocytes/100 leukoc yteson 09-01-2021 Lymphocytes/100 WBC (Bld) 24.9 % 19-41 [facility] Work Phone: Blood monocytes/100 leukocyt eson 09-01-2021 Monocytes/100 WBC (Bld) 6.6 % 0-10 [facility] Work Phone: Blood platelet mean volumeon 09-01-2021 Platelet mean volume (Bld) [Entitic vol] 10.3 fL 6.2-12.0 [facility] Work Phone: Determination of erythrocyte mean corpuscular volume (MCV)on 09-01-2021 MCV (RBC) [Entitic vol] 83.9 fL 80-94 [facility] Work Phone: Hematocrit Auto (Bld) [Volum e fraction]on 09-01-2021 Hematocrit (Bld) [Volume fraction] 42.2 % 40-54 [facility] Work Phone: [phone] Ketones Test strip Ql (U)on 09-01-2021 Ketones Ql (U) Negative Negative [facility] Work Phone: Laboratory - Chemistry and C hemistry - challengeon 09-01-2021 ALP [Catalytic activity/Vol] 77 U/L 45-117 [facility] Work Phone: ALT [Catalytic activity/Vol] 14 U/L 16-61 [facility] Work Phone: CO2 [Moles/Vol] 26.0 mmol/L 21.0-32.0 [facility] Work Phone: Globulin (S) [Mass/Vol] 3.0 g/dL 2.2-4.2 [facility] Work Phone: [phone] Lipase [Catalytic activity/Vol] 159 U/L 73-393 [facility] Work Phone: Urea nitrogen/Creatinine [Mass ratio] 6.2 mg/mg 10-20 [facility] Work Phone: Laboratory - Hematology and Cell countson 09-01-2021 Erythrocyte distribution width (RBC) [Entitic vol] 44.1 fL 35.1-43.9 [facility] Work Phone: Erythrocyte distribution width (RBC) [Ratio] 14.6 % 11.6-14.6 [facility] Work Phone: Immature granulocytes/100 WBC (Bld) 0.200 % 0.0-0.9 [facility] Work Phone: Comment on above: IG% - Immature Granu locytes (promyelocytes, myelocytes and metamyelocytes) > 1% indicates that a LEFT SHIFT is Present. MCH (RBC) [Entitic mass] 27.6 pg 27.0-32.0 [facility] Work Phone: Nucleated RBC/100 WBC (Bld) [Ratio] 0 % 0-5 [facility] Work Phone: MCHC Auto (RBC) [Mass/Vol]on 09-01-2021 MCHC (RBC) [Mass/Vol] 32.9 g/dL 32-36 [facility] Work Phone: Mucus LM Ql (Urine sed)on Mucus Ql (Urine sed) 0 SEEN /hpf [facility] Work Phone: Nitrite Test strip Ql (U)on 09-01-2021 Nitrite Ql (U) Negative Negative [facility] Work Phone: No Panel Informationon 09-01 Estimated Creatinine Clearance Calc 105.19 ml/min [facility] Work Phone: Estimated GFR (MDRD) Amer 117 mL/min >60 [facility] Work Phone: Comment on above: GFR Calc Estimated GFR (MDRD) Non-Af Amer 97 mL/min >60 [facility] Work Phone: Comment on above: Non- GFR Calc Platelets bldon 09-01-2021 Platelets (Bld) [#/Vol] 289 10*3/uL 150-450 [facility] Work Phone: Protein Test strip Ql (U)on 09-01-2021 Protein Ql (U) Negative Negative [facility] Work Phone: Serum or plasma albumin simone urement (mass/volume)on 09-01-2021 Albumin [Mass/Vol] 3.6 g/dL 3.2-5.0 [facility] Work Phone: Serum or plasma albumin/glob ulin mass ratioon 09-01-2021 Albumin/Globulin [Mass ratio] 1.2 {ratio} 0.9-2.4 [facility] Work Phone: Serum or plasma calcium simone urement (mass/volume)on 09-01-2021 Calcium [Mass/Vol] 8.7 mg/dL 8.5-10.1 [facility] Work Phone: Serum or plasma creatinine m easurement (mass/volume)on 09-01-2021 Creatinine [Mass/Vol] 0.96 mg/dL 0.70-1.30 [facility] Work Phone: Comment on above: The validity of the calculated GFR & GFRAA in patients over 70 years has not been determined. Clinical correlation is essential. Serum or plasma urea nitroge n measurement (mass/volume)on 09-01-2021 Urea nitrogen [Mass/Vol] 6 mg/dL 7-18 [facility] Work Phone: Squamous epithelial cells de tection in urine sediment by light microscopyon 09-01-2021 Epithelial cells.squamous LM Ql (Urine sed) 0 SEEN /hpf 0-5 [facility] Work Phone: Thin prep Papanicolaou smear with manual screeningon 09-01-2021 Thin prep Papanicolaou smear with manual screening 10 U/L 15-37 [facility] Work Phone: Thin prep Papanicolaou smear with manual screening 8 5-15 [facility] Work Phone: Urine blood detectionon RBC Ql (U) Negative Negative [facility] Work Phone: RBC Ql (U) 0 SEEN /hpf 0-5 [facility] Work Phone: Urine clarityon 09-01-2021 Clarity (U) Clear Clear [facility] Work Phone: Urine color determinationon 09-01-2021 Color (U) Yellow Yellow [facility] Work Phone: Urine glucose detectionon Glucose Ql (U) Normal mg/dl Normal [facility] Work Phone: Urine leukocyte esterase det ection by dipstickon 09-01-2021 Leukocyte esterase Test strip Ql (U) Negative Negative [facility] Work Phone: Urine pHon 09-01-2021 pH (U) 6.0 [pH] 5.0 - 8.0 [facility] Work Phone: Urine sediment bacteria coun t by microscopy (number/high power field)on 09-01-2021 Bacteria LM.HPF (Urine sed) [#/Area] 0 /[HPF] None Seen [facility] Work Phone: Urine specific gravity measu rementon 09-01-2021 Specific gravity (U) [Rel density] 1.015 1.002-1.030 [facility] Work Phone: Urobilinogen Auto test strip Ql (U)on 09-01-2021 Urobilinogen Ql (U) Normal mg/dl Normal [facility] Work Phone: LABORATORYOrdered By: Harpreet Greer [...] SS UAon 03-22-2021 Color (U) Yellow Normal [facility] ([place]) Comment on above: Performed By: #### U A #### [address] [address] Glucose (U) [Mass/Vol] Negative Normal Negative [facility] ([place]) Comment on above: Performed By: #### U A #### [address] [address] Ketones Ql (U) Negative Normal Negative [facility] ([place]) Comment on above: Performed By: #### U A #### [address] [address] UA Appear Clear Normal Clear [facility] ([place]) Comment on above: Performed By: #### U A #### [address] [address] UA Blood Negative Normal Negative [facility] ([place]) Comment on above: Performed By: #### U A #### [address] [address] UA Leuk Est Negative Normal Negative [facility] ([place]) Comment on above: Performed By: #### U A #### [address] [address] UA Nitrite Negative Normal Negative [facility] ([place]) Comment on above: Performed By: #### U A #### [address] [address] UA pH 7.0 Normal 5.0 - 8.0 [facility] ([place]) Comment on above: Performed By: #### U A #### [address] [address] UA Protein Negative Normal Negative [facility] ([place]) Comment on above: Performed By: #### U A #### [address] [address] UA Spec Grav 1.015 Normal 1.015-1.025 [facility] ([place]) Comment on above: Performed By: #### U A #### [address] [address] UA Specimen Type Clean Catch Normal [facility] ([place]) Comment on above: Performed By: #### U A #### [address] [address] UA Urobilinogen 0.2 E.U./dL Normal 0.2-1.0 [facility] ([place]) Comment on above: Performed By: #### U A #### [address] [address] Urobilinogen (U) [Mass/Vol] Negative Normal Negative [facility] ([place]) Comment on above: Performed By: #### U A #### [address] [address] XR Abdomen Supine and Uprigh ton 01-30-2020 IMPRESSION: Normal radiographs of the abdomen. Shine Worker: PSCB Transcribe Date/Time: Jan 30 2020 1:11P Dictated by : YOUNG BOJORQUEZ DO This examination was interpreted and the report reviewed and electronically signed by: YOUNG BOJORQUEZ DO on Jan 30 2020 1:12PM EST DIVISION OF RADIOLOGY * * *Final Report* [...] with Epigastric pain 30y/o male seen at [facility] ER last week for GI pain. [...] No displaced fractures. DIVISION OF RADIOLOGY Provider, [facility] - 01/30/2020 * * *Final Report* [...] with Epigastric pain 30y/o male seen at [facility] ER last week for GI pain. [...] IMPRESSION IMPRESSION: Normal radiographs of the abdomen. Shine Worker: MINERVA Transcribe Date/Time: Jan 30 2020 1:11P Dictated by : YOUNG BOJORQUEZ DO This examination was interpreted and the report reviewed and electronically signed by: YOUNG BOJORQUEZ DO on Jan 30 2020 1:12PM EST [facility] Radiology Study observation (narrative) [facility] XR Abdomen Supine and Uprigh tOrdered By: [facility] Provider on 01-30-2020 [facility] CASE MANAGEMon 03-13-2017 CASE MANAGEM HNO ID: [id number] thor: Jessica Parikh () DanzingerService: Social WorkAuthor Type: Social WorkerType: Care Mgt Progress NoteFiled: 03/13/2017 10:32 AMNote Text:BEHAVIORAL HEALTH SOCIAL WORK DISCHARGE NOTESERVICE DATE: 03/13/2017SERVICE TIME: 10:25 AMPATIENT'S DISCHARGE PLAN:Discharge DispositionNursing Home Referral Information[facility] Referral InformationGroup HomeHomeless Senior Care Referral InformationCrisis Stabilization UnitAcute Care Facility Referral InformationAssisted Living Facility Referral InformationHome Care Agency Referral InformationContact PersonGuardianPsychiatry Follow-Up AppointmentMedical Follow-Up AppointmentCounselor Referral InformationCase Management Referral Information Lining Stitcher Name: (Fred Leesa Cricket)Agency: ([phone])Family Psychoeducational ([facility]) Follow-Up AppointmentInsurance Lining Stitcher Name: Darion Bonilla#: [phone] Dependency Care - Intensive Outpatient/Partial Hospital ProgramBehavioral [...] morning with the plan tomeet up with Lining Stitcher from [facility]. Pt reported tpo treatmentteam that "I am going to take advantage of this plan Its [facility], its like a four [place] in [place] withanother 10 months in [place]. I really want this to work". This writerspoke with Fred Kapadia who states that when the pt is with hisparents they will call him with their arrival time for intake. POt isbeing sent with filled p[rescriptions and copies of his demographic sheetfor insurance informationSIGNATURE: YOSEF Canales PATIENT NAME: Matty WhitlockDATE: March 13, 2017 : 10:25 AM [facility] 03-13-2017 DS HNO ID: [id number] thor: Julianna Mei: (none)Author Type: PhysicianType: Discharge SummariesFiled: 03/17/2017 9:36 AMNote Text:DISCHARGE SUMMARY BEHAVIORAL HEALTHPATIENT NAME: Matty Whitlock ADMISSION DATE: 02/27/2017MRN: [id number] DISCHARGE DATE: 03/13/2017ATTENDING PHYSICIAN: Julianna Cardona FOR [...] is in goodcontrol and quite lucid at wy.LABS AND PROCEDURES PENDING AT DISCHARGE: No pending [...] (Src) 97.5 (Oral) Resp 16 Ht 5' 7" (1.70m) Wt 170 lb (77.1kg) SpO2 98% [...] APPOINTMENTS:Discharge Information Admission (Current) from 02/27/2017 in [place] [address] Senior Occupational Therapist Name Darion Dodd BDYO OF CARE: Discharge Management: I personally spent less than 30minutes involved in the discharge management of this patient.SIGNATURE: Julianna Escalera MD PATIENT NAME: Matty WhitlockDATE: March 13, 2017 : 8:[address] [facility] NURSING PROGon 03-13-2017 NURSING PROG HNO ID: [id number] thor: Regina DodgeRn) SHIREEN Morejonervice: NursingAuthor Type: Registered NurseType: Nursing Progress NoteFiled: 03/13/2017 11:28 AMNote Text:Nursing Progress Note Topic of Note:Daily NoteLane [id number] is neatly dressed and pleasant on approach. He is looking forward tobeing discharged today and begin a journey to recovery in [facility] and then a treatment center in [place].He was receptive to medication teaching at discharge. Mom with patient'spermission was given a copy of his home going medications.This note was completed by: Regina Morejon RN [facility] NURSING PROG HNO ID: [id number] thor: Cori (Rn) Boyd Qiuice: (none)Author Type: Registered NurseType: Nursing Progress NoteFiled: 03/13/2017 6:18 AMNote Text: Nursing Progress NotePatient Name: Matty WhitlockMRN: [id number] Location: [place] [address]/[place] [address]*_ Daily Note:Assumed care of pt from 8511-7948. Report received fromprevious shift. At beginning of shift pt was seen out in the day areawatching TV. Upon assessment pt appeared disheveled and was pleasant uponapproach. Pt is discharged focused and voiced excitement over enteringtreatment tomorrow stating, "I'm going to stick with it this time." Ptdenies all SI/HI and AVH. Pt was [...] note was completed by: Cori Qiu RN [facility] PROGRESSon 03-13-2017 PROGRESS HNO ID: [id number] thor: Palmira Castelan) ZacharyService: PsychiatryAuthor Type: Physician AssistantType: Progress NotesFiled: 03/13/2017 8:41 AMNote Text:NORMA NotePatient to be discharged today. Medications reviewed with Dr. Andrews. Medication reconciliation and prescriptions completed.Prescriptions electronically sent to bedside delivery service to befilled prior to discharge. Javan Whitlock Medication Instructions DOMONIQUE:[id number] Printed on:03/13/[address] (DEPAKOTE) 250 [...] at bedtime as needed.Chaparro Causey 20168:[address] [facility] ALLIED HEALTHon 03-12-2017 Creatinine HNO ID: [id number] thor: Sr. Denney ([facility]) FAUSTINO Del Rioervice: Recreational TherapyAuthor Type: TherapistType: Allied HealthFiled: 03/12/2017 [...] order to promotehealthy coping and social skills.SIGNATURE: JOSUE Bardales PATIENT NAME: Matty EliasTE: March 12, 2017 : 3:29 PM PAGER/CONTACT #: [facility] CASE MANAGEMon 03-12-2017 CASE MANAGEM HNO ID: [id number] thor: Regina Akers) CelsoService: Behavioral HealthAuthor Type: [...] a local provider that they use, possibly [facility] Rekl[facility].SIGNATURE: YOSEF Forte PATIENT NAME: Matty EliasTE: March 12, 2017 : 3:[address] [facility] NURSING PROGon 03-12-2017 NURSING PROG HNO ID: [id number] thor: Romi Gifford (Rn) Branden RNService: NursingAuthor Type: Registered NurseType: Nursing Progress NoteFiled: 03/12/2017 6:21 PMNote Text: Nursing Progress NotePatient Name: Matty WhitlockMRN: [id number] Location: ZZ-FJO1-5534/[place] [address]*_ Daily Note:Pt is in control. He c/o [...] note was completed by: Romi Otero RN [facility] NURSING PROG HNO ID: [id number] thor: Anna Sullivan Lpn: (none)Author Type: LICENSED NURSEType: Nursing Progress NoteFiled: 03/12/2017 8:01 AMNote Text: Nursing Progress NotePatient Name: [facility]: [id number] Location: PC-JGO3-1199/[place] [address]*_ Daily Note:0000 Report received from previous shift. Patient resting inbed,eyes closed. Q15 minute safety checks maintained. Will continue tomonitor.0700 Patient slept majority of shift. No somatic complaints voiced.Status unremarkable. Patient slept 7 hours. Will continue to monitor.This note was completed by: Danica Fish LPN [facility] NURSING PROG HNO ID: [id number] thor: Janice Diez Lpnice: NursingAuthor Type: LICENSED NURSEType: Nursing Progress NoteFiled: 03/12/2017 12:06 PMNote Text: Nursing Progress NotePatient Name: Matty WhitlockWE[facility]: [id number] Location: VV-GFI1-9013/[facility]1-015*_ Daily Note:Patient is alert and oriented X3. He is neatly dressed in street clothes. Mood and affect are euthymic. He has remained pleasant and cooperativewith all nursing measures. He has been medication compliant. Remainsseclusive to self and room. Out for meals only. Appetite is god. Willcontinue to monitor on Q 15 minute safety checks.This note was completed by: Alejandra Morales LPN [facility] NUTRITIONon 03-12-2017 NUTRITION HNO ID: [id number] thor: Roly (Eddie) Nathalieervice: Nutrition TherapyAuthor Type: Registered DietitianType: NutritionFiled: 03/12/2017 6:46 AMNote Text:NUTRITION THERAPY SCREENING NOTESERVICE DATE: 03/12/2017SERVICE TIME: 6:45 AMNUTRITION CARE PLANPatient's weight is stable and nutritional intake is adequate. Patient isnot at risk for malnutrition at this time.Intervention:- Regular dietDischarge Nutrition Recommendations:Diet: RegularPt screened per LOS policy. Pt eating well per lasting machine operator with nosignificant changes in weight. Continue to monitor and intervene per LOSpolicy or upon consultation.Present Diet Order: RegularAdmission Weight: 77.1 kg (170 lb)Current Weight: 77.1 kg (170 lb)Body mass index is 26.63 kg/(m2). overweightWeight has not changed.MNT Billing Type: Re-assess/15 min 1 unitSIGNATURE: Roly Love RD PATIENT NAME: Matty WhitlockDATE: March 12, 2017 : 6:45 AM PAGER: [phone] [facility] PROGRESSon 03-12-2017 PROGRESS HNO ID: [id number] thor: Julianna Mei: (none)Author Type: PhysicianType: Progress [...] ?F) (Oral) Resp18 Ht 170.2 cm (5' 7") Wt 77.1 kg (170 lb) SpO2 98% BMI 26.63kg/t6AEMPYR STATUS EXAMINATION:Appearance: Appears stated age and In [...] WhitlockDATE: March 12, 2017 : 10:[address] [facility] CASE MANAGEMon 03-11-2017 CASE MANAGEM HNO ID: [id number] thor: Regina Plata () JunService: Behavioral HealthAuthor Type: Social WorkerType: Care Mgt Progress NoteFiled: 03/11/2017 2:12 PMNote Text:BEHAVIORAL HEALTH SOCIAL WORKPROGRESS NOTESERVICE DATE: 03/11/2017SERVICE TIME: 2:06 pmSocial work continued to assist patient in contacting treatmentfacilities. Patient's mother faxed another list of treatmentpossibilities. SW contacted [facility] and was told there are no beds currentlyand the patient can try again in about one month. [facility] [place]. Serafin spoke with Aiyana Kapadia whowill be emailing an application to this worker. There are openings but a$500 charge initially. Diya Sanabria has a treatment cost of $23,000. Thepatient would need to complete an intake appointment after dischargebefore he can be considered at the [facility]. A message was leftfor the [facility] and [facility]. In summary,patient has been unable to secure a treatment facility to date. SERAFIN willcontinue to assist.SIGNATURE: YOSEF Forte PATIENT NAME: Matty WhitlockDATE: March 11, 2017 : 2:[address] [facility] NURSING PROGon 03-11-2017 NURSING PROG HNO ID: [id number] thor: Janice Diez Lpnice: NursingAuthor Type: LICENSED NURSEType: Nursing Progress NoteFiled: 03/11/2017 7:28 PMNote Text: Nursing Progress NotePatient Name: Matty WhitlockMRN: [id number] Location: [place] [address]*_ Daily Note:Patient remains mostly seclusive to self and bed and out for meals. Hedid meet with the medical social consultant and made a few phone calls late thisafternoon. Ate well at supper. Presently in bed sleeping. Will continueto monitor on Q 15 minute safety checks.This note was completed by: Alejandra Morales LPN [facility] NURSING PROG HNO ID: [id number] thor: Anna Diez Lpn: NursingAuthor Type: LICENSED NURSEType: Nursing Progress NoteFiled: 03/11/2017 12:55 PMNote Text: Nursing Progress NotePatient Name: Matty WhitlockMRN: [id number] Location: SH-ONI5-8672/[place] [address]_ Daily Note:Patient is alert and oriented X3. [...] note was completed by: Alejandra Morales LPN [facility] PROGRESSon 03-11-2017 PROGRESS HNO ID: [id number] thor: Julianna EscaleraSer: (none)Author Type: PhysicianType: Progress NotesFiled: 03/11/2017 8:56 [...] ?F) (Oral) Resp14 Ht 170.2 cm (5' 7") Wt 77.1 kg (170 lb) SpO2 98% BMI 26.63kg/m6GZRVDW STATUS EXAMINATION:Appearance: Appears stated age and In [...] WhitlockDATE: March 11, 2017 : 10:[address] [facility] CASE MANAGEMon 03-10-2017 CASE MANAGEM HNO ID: [id number] thor: Regina Plata (Serafin) JunService: Behavioral HealthAuthor Type: Social WorkerType: Care Mgt Progress NoteFiled: 03/10/2017 3:29 PMNote Text:BEHAVIORAL HEALTH SOCIAL WORKPROGRESS NOTESERVICE DATE: 03/10/2017SERVICE TIME: 3:23 pmFamily meeting this morning with patient's parents who are requestingpatient be discharged to a residential drug treatment program. Mother hasprovided the patient with a list of programs to contact. SERAFIN assistedpatient in speaking with Darci at [facility], which is 18 monthslong. She will discuss with her team and call back. Also left anothermessage for [facility] [place]. Spoke with Joanne Simental, which is an outpatient program.Patient feels parents are managing his treatment plan. "I am a grown manand should be able to make my own decisions." He is not interested in anyof the above programs. He wants to be discharged to the [facility] in [place], where he has been in the past. He is familiar with theoutpatient substance abuse and mental health programs there. He is willingto follow up with both.SIGNATURE: YOSEF Forte PATIENT NAME: Matty WhitlockDATE: March 10, 2017 : 3:[address] [facility] NURSING PROGon 03-10-2017 NURSING PROG HNO ID: [id number] thor: Alesia (Rn) Davon RNService: (none)Author Type: Registered NurseType: Nursing Progress NoteFiled: 03/11/2017 6:24 AMNote Text: Nursing Progress NotePatient Name: Matty RainN: [id number] Location: BS-CWG8-1283/[place] [address]*_ Daily Note:Patient denies suicidal and homicidal ideations, delusions andhallucinations. He is pleasant on approach and cooperative with vitalsigns. Matty is seclusive to room and self and ate snack. He receivedscheduled evening medications and Trazodone PRN for sleep. Matty sleptmajority of night with no complaints.This note was completed by: Alesia Mays RN [facility] NURSING PROG HNO ID: [id number] thor: Romi Sutton) SHIREEN Oteroervice: NursingAuthor Type: Registered NurseType: Nursing Progress NoteFiled: 03/10/2017 7:04 PMNote Text: Nursing Progress NotePatient Name: Matty RainN: [id number] Location: EI-UHZ7-5501/[place] [address]*_ Daily Note:Pt has been med seeking, stated [...] as ordered.This note was completed by: Romi Otero, MAXIMILIAN [facility] NURSING PROG HNO ID: [id number] thor: Anna Sullivan Lpn: (none)Author Type: LICENSED NURSEType: Nursing Progress NoteFiled: 03/10/2017 9:57 AMNote Text: Nursing Progress NotePatient Name: [facility]lockWE[facility]: [id number] Location: TV-GDD7-1613/[facility]-015*_ Daily Note:0000 Report received from previous shift. Patient resting inbed,eyes closed. Q15 minute safety checks maintained. Will continue tomonitor.0700 Patient slept majority of shift. No somatic complaints voiced.Status unremarkable. Patient slept 7 hours. Will continue to monitor.This note was completed by: Danica Fish LPN [facility] NURSING PROG HNO ID: [id number] thor: Anna Gruber Lpn: (none)Author Type: LICENSED NURSEType: Nursing Progress NoteFiled: 03/09/2017 10:09 PMNote Text: Nursing Progress NotePatient Name: Matty [facility]lockWE[facility]: [id number] Location: YX-CRN7-4480/-[facility]-015*_ Daily Note:Pt has been up on intervals. [...] note was completed by: Brandon Fletcher LPN [facility] PROGRESSon 03-10-2017 PROGRESS HNO ID: [id number] thor: Julianna EscaleraService: (none)Author Type: PhysicianType: Progress [...] of which 3 seem to have beds: [facility]; [facility]; [facility]. Matty understands he needs initiatearrangements, though [...] ?F) (Oral) Resp16 Ht 170.2 cm (5' 7") Wt 77.1 kg (170 lb) SpO2 98% BMI 26.63kg/o3GNPZYZ STATUS EXAMINATION:Appearance: Appears stated age and In [...] Escalera MD PATIENT NAME: Matty EliasTE: March 10, 2017 : 10:[address] [facility] ALLIED HEALTHon 03-09-2017 Creatinine HNO ID: [id number] thor: Sr. Jumana DodgeOlympia Medical CenterWilliam Del Rio MTService: Recreational TherapyAuthor Type: TherapistType: Allied HealthFiled: 03/09/2017 [...] to promote healthy coping and social skills.SIGNATURE: KLAUDIA Bardales PATIENT NAME: Matty EliasTE: March 09, 2017 : 1:06 PM PAGER/CONTACT #: [facility] CASE MANAGEMon 03-09-2017 CASE MANAGEM HNO ID: [id number] thor: Regina Plata (Sw) JunService: Behavioral HealthAuthor Type: Social WorkerType: Care Mgt Progress NoteFiled: 03/09/2017 3:15 PMNote Text:BEHAVIORAL HEALTH SOCIAL WORKPROGRESS NOTESERVICE DATE: 03/09/2017SERVICE TIME: 11:00 amSat with patient while he called treatment facilities.SERAFIN faxed a referral to [facility] (fax: [phone] (Fred)). . They have a 2-4 week waiting list. ELLIE signed.[facility] ([phone]). Patient is not very interestedin this because it is a very restrictive, 18-month program.[facility] ([phone]). Patient was told to callJulianna Almanzar (coordinator) [...] be reached.SIGNATURE: Susana HARRIS PATIENT NAME: Matty WhitlockDATE: March 09, 2017 : 10:59 AMSupervising Oil Tanker Captain AttestationI have reviewed the above documentation.I agree with the findings and plan as documented.SIGNATURE: YOSEF Forte PATIENT NAME: Matty WhitlockDATE: March 09, 2017 : 3:[address] [facility] CASE MANAGEM HNO ID: [id number] thor: Regina Plata (Sw) JunService: Behavioral HealthAuthor [...] remains seclusive. SW will continue to follow.SIGNATURE: Regina Plata CelsoYOSEF PATIENT NAME: Matty WhitlockDATE: March 09, 2017 : 8:[address] [facility] NURSING PROGon 03-09-2017 NURSING PROG HNO ID: [id number] thor: Jv (Rn) Boyd Clarkice: (none)Author Type: Registered NurseType: Nursing Progress NoteFiled: 03/09/2017 6:27 AMNote Text: Nursing Progress NotePatient Name: Matty WhitlockN: [id number] Location: RU-PLT6-1247/[facility]1-015*_ Daily Note:0000 Patient report received from previous shift. Patient resting in bedwith eyes closed. Safety checks per unit protocol. Will continue tomonitor.0600 Patient slept throughout shift without incident or complaint.Continuing to monitor.This note was completed by: Jv Clark RN [facility] NURSING PROG HNO ID: [id number] thor: Koko (Rn) Leonardo Jeffries: (none)Author Type: Registered NurseType: Nursing Progress NoteFiled: 03/09/2017 12:23 PMNote Text: Nursing Progress NotePatient Name: Matty WhitlockN: [id number] Location: KW-YVA8-1572/[place] [address]*_ Patient out of room for morning meal, remains seclusive to self.Compliant with morning medications, patient c/o "anxious and stress."Reviewed non pharmacological methods of coping with stress [...] Patient expresses somatic delusions when he reports "Once both my eyescame out of my sockets. The ED popped them back in." Also reports hishead shrunk down and then got better. I looked into the mirror once andmy eyes were red and I was possessed by a demon." Patient also reports hehad "the stigmata" on both his palms and his feet.Religiously preoccupied, patient does not exhibit a runny nose. He ispleasant in 1:1 interaction. Will continue to monitor frequently per unitprotocol. PRN nicotine gum per patient request.This note was completed by: Koko Ellis RN [facility] NURSING PROG HNO ID: [id number] thor: Khanh Mendoza ([facility]) Rylee Ordoñez: (none)Author Type: Behavorial Health AssistantType: Nursing Progress NoteFiled: 03/09/2017 2:04 PMNote Text: Nursing Progress NotePatient Name: Matty WhitlockMRN: [id number] Location: DS-BJE4-1223/[place] [address]*_ Daily Note:0904 Pt was in room upon [...] .This note was completed by: Khanh Ordoñez [facility] PROGRESSon 03-09-2017 PROGRESS HNO ID: [id number] thor: Julianna Mei: (none)Author Type: PhysicianType: Progress NotesFiled: 03/09/2017 8:56 AMNote Text:PROGRESS NOTE BEHAVIORAL HEALTHSERVICE DATE: 03/09/2017SERVICE TIME: 10:10 AMThe Interdisciplinary team met and reviewed treatment goals and dischargeplanning.SUBJECTI VESeen in office, reasonable and in control. Proposes going to the [facility] in [place], a alf. SW thought he had been banned from [...] (Oral) Resp 16 Ht 170.2 cm (5' 7") Wt 77.1 kg (170 lb) SpO2 98% BMI 26.63 kg/u8RXLWTD STATUS EXAMINATION:Appearance: Appears stated age and In [...] March 09, 2017 : 10:10 AM Normal [facility] Valproic Acidon 03-09-2017 Valproic Acid 93.8 ug/mL Normal 50-100 [facility] Comment on above: Result Comment: Refe rence ranges and high/low indicator flags are provided as general guidelines only. The treating physician must determine appropriate target levels/dosing based on the specific clinical situation. Performed By: #### L IPB, HBA1C ####[facility] [address] [place], [place] [id number] NURSING PROGon 03-08-2017 NURSING PROG HNO ID: [id number] thor: Jeanne Manuel (Rn) SHIREEN Pattenervice: (none)Author Type: Registered NurseType: Nursing Progress NoteFiled: 03/08/2017 9:24 PMNote Text: Nursing Progress NotePatient Name: Matty WhitlockMRN: [id number] Location: [place] [address]*_ Daily Note:ssumed care of pt, pt walking back and forth to room. Pleasantasking about snack. Pt had conversation with RN regarding reason for beingin hospital. Pt denies SI. Pt sitting on table having evening snack.0 pt in common area, Hs meds tolerated. Prn trazodone given per ptsrequest.This note was completed by:Jeanne Patten RN [facility] NURSING PROG HNO ID: [id number] thor: Anna Sams Lpn: (none)Author Type: LICENSED NURSEType: Nursing Progress NoteFiled: 03/08/2017 6:52 PMNote Text: Nursing Progress NotePatient Name: Matty RainN: [id number] Location: RU-BIG0-9881/[place] [address]*_ Daily Note: Assessed as charted, seclusive to room, only in common areafor meals and medicines, no social interaction with peers, not attendinggroups, denies thoughts of harming self or others, denies andhallucinations, cooperative with staff, compliant with medicines, PRNativan providing relief of anxiousness, tylenol providing relief ofgeneralized pain, nicotine gum helping with cigarette cravings, goodappetite.This note was completed by: Leonel Magaña LPN [facility] NURSING PRO[facility] ID: [id number] thor: Kamilla DodgeFormerly [facility]) Vibha Almonte: (none)Author Type: Behavioral Health TechType: Nursing Progress NoteFiled: 03/08/2017 6:08 AMNote Text: Nursing Progress NotePatient Name: Matty Francois: [id number] Location: WR-PMG0-0379/[place] [address]*_ Daily Note:Report from previous shift received about the patient. Patient in bed andappeared to rest comfortably throughout the night with no S/S of pain ordistress. Q 15 minute checks observed and maintained for safety. Willcontinue to monitor.This note was completed by: Kamilla Almonte [facility] PROGRESSon 03-08-2017 PROGRESS HNO ID: [id number] thor: Julianna EscaleraSer: (none)Author Type: PhysicianType: Progress NotesFiled: 03/08/2017 8:42 [...] ?F) (Oral) Resp17 Ht 170.2 cm (5' 7") Wt 77.1 kg (170 lb) SpO2 98% BMI 26.63kg/a8VGOUYX STATUS EXAMINATION:Appearance: Appears stated age and In [...] EliasTE: March 08, 2017 : 10:[address] [facility] NURSING PROGon 03-07-2017 NURSING PROG HNO ID: [id number] thor: Luciana (Rn) Chloe, RNService: NursingAuthor Type: Registered NurseType: Nursing Progress NoteFiled: 03/07/2017 4:11 PMNote Text: Nursing Progress NotePatient Name: Matty WhitlockMRN: [id number] Location: OM-BOB2-8010/[place] [address]*_ 1600- Patient approached nurses station complaining of anxiety. Whenoffered medication patient asked specifically for "haldol with the ativansince it works better... In a shot..." When patient was told he willreceive Ativan PO he responded, "I guess no shots for me..." in an annoyedmanner. Compliant with med.This note was completed by: Luciana Corona RN [facility] NURSING PROG HNO ID: [id number] thor: Khanh Mendoza ([facility]) Rylee Ordoñez: (none)Author Type: Behavorial Health AssistantType: Nursing Progress NoteFiled: 03/07/2017 2:42 PMNote Text: Nursing Progress NotePatient Name: Matty WhitlockMRN: [id number] Location: WS-OEQ3-8982/[place] [address]*_ Daily Note:1241 Pt was in room in AM @ start of shift , cooperative with vitals, medcomplaint , consumed 100% of both meals. Pt mother was in too pickle processor allhis valuables from the safe , they [...] .This note was completed by: Khanh Ordoñez [facility] NURSING PROG HNO ID: [id number] thor: Vanessa Roy (Rn) SHIREEN Townsendervice: NursingAuthor Type: Registered NurseType: Nursing Progress NoteFiled: 03/07/2017 1:55 PMNote Text: Nursing Progress NotePatient Name: Matty WhitlockMRN: [id number] Location: [place] [address]/[place] [address]*_ Daily Note: Teamed with Mental Health Worker. Patient denied current SI/HIand denied current AH/VH. He denied pain. Medication education completedand pt was med compliant. Disheveled. Withdrawn. Flat affect. Depressed.He has spent most of shift resting in his room. At 1014 pt receivedAtivan 2 mg po for anxiety, saying "I feel terrified ... [of what] I don'tknow. I feel like everything is coming down on me."At 1035, patient's mother Imtiaz called and requested that patient'ssecurity items be requested now so that she can take them home. She wasadvised that she would need to take all items with security. Patientconfirmed that his security items could be released to her. Pt signedrelease and security items were released to his mother.This note was completed by: Vanessa Townsend RN [facility] PROGRESSon 03-07-2017 PROGRESS HNO ID: [id number] thor: Julianna EscaleraSersushile: (none)Author Type: PhysicianType: Progress NotesFiled: 03/07/2017 10:15 [...] (Oral) Resp 16 Ht 170.2 cm (5' 7") Wt 77.1 kg (170 lb) SpO2 98% BMI 26.63kg/c2NTAVOH STATUS EXAMINATION:Appearance: Appears stated age and In [...] plan.SIGNATURE: Julianna Escalera MD PATIENT NAME: Matty Saravia: March 07, 2017 : 10:[address] [facility] ALLIED HEALTHon 03-06-2017 Creatinine HNO ID: [id number] thor: YASH LongoriaSService: Recreational TherapyAuthor Type: TherapistType: Allied HealthFiled: 03/06/2017 3:38 PMNote Text:PROGRESS NOTE BEHAVIORAL HEALTHTopic of Note: Three Day NoteSERVICE DATE: 03/06/2017SERVICE TIME:335 the past couple days patient has not attended any structured groups. Pthas been seclusive to self and his room. Tongue And Groove Machine Setter has attempted to talkwith patient 1;1 today but patient with a flat affect appears depressedwalked away from magazine writer. Pt remains in Hospital attire. Will continue toencourage 1;1 socialization and group participationSIGNATURE: ADRIANO Longoria PATIENT NAME: Matty Saravia: March 06, 2017 : 3:35 PM PAGER/CONTACT #: [facility] CASE MANAGEMon 03-06-2017 CASE MANAGEM HNO ID: [id number] thor: Regina Plata () JunService: Behavioral HealthAuthor [...] his cat was gone but gave no specifics.duralumin metalworker did leave a list of treatment programs to contact withpatient in his room.SIGNATURE: YOSEF Forte PATIENT NAME: Matty WhitlockDATE: March 06, 2017 : 1:[address] [facility] NURSING PROGon 03-06-2017 NURSING PROG HNO ID: [id number] thor: Luciana (Rn) Boyd Rojasice: Behavioral HealthAuthor Type: Registered NurseType: Nursing Progress NoteFiled: 03/07/2017 5:30 AMNote Text: Nursing Progress NotePatient Name: Matty WhitlockN: [id number] Location: VY-[id number]/[place] [address]*_ Daily Note:2100Report received from previous shift. Patient in bed resting, disheveledand withdrawn, denies suicidal thoughts or hallucinations. Patient up forsnack time, medication compliant. In control. Will continue to monitor.05:29Patient slept 7 hours, no prn medication needed during the night, incontrol.This note was completed by: Luciana Rojas RN [facility] NURSING PROG HNO ID: [id number] thor: Devin DodgeC[facility]) Rylee Mckay: Behavioral HealthAuthor Type: Behavorial Health AssistantType: Nursing Progress NoteFiled: 03/06/2017 8:32 PMNote Text: Nursing Progress NotePatient Name: Matty WhitlockMRN: [id number] Location: PV-NFN5-5510/[facility]-015*_ Daily Note:2026 Pt has been seclusive to room and self coming out for dinner only thequickly back to room where he slept for the most of shift. Cooperative andpresented no behavioral problem. Mood and affect is depressed and flat.Conversation is clear but superficial and blunt. He denies S/HI and A/VH.Disheveled wearing hospital gowns.This note was completed by: Devin Mckay [facility] NURSING PROG HNO ID: [id number] thor: LAURIE Diez Lpnervice: NursingAuthor Type: LICENSED NURSEType: Nursing Progress NoteFiled: 03/06/2017 3:30 PMNote Text: Nursing Progress NotePatient Name: Matty WhitlockN: [id number] Location: PN-CUH6-3570/[place] [address]*_ Daily Note:Patient is alert and oriented X3. [...] safety checks.This note was completed by: Alejandra Carmen, [facility] NURSING PROG HNO ID: [id number] thor: Alejandra DodgeRag InspectorLAURIE Nunezervice: NursingAuthor Type: LICENSED NURSEType: Nursing Progress NoteFiled: 03/06/2017 2:26 PMNote Text: Nursing Progress NotePatient Name: Matty WhitlockMRN: [id number] Location: [place] [address]*_ Daily Note:pThis note was completed by: Alejandra Morales SOFTWARE APPLICATIONS SPECIALIST [facility] NUTRITIONon 03-06-2017 NUTRITION HNO ID: [id number] thor: Roly Zelayaervice: Nutrition TherapyAuthor Type: Registered DietitianType: NutritionFiled: 03/06/2017 6:14 AMNote Text:NUTRITION THERAPY SCREENING NOTESERVICE DATE: 03/06/2017SERVICE TIME: 6:10 AMNUTRITION CARE PLANPatient's weight is stable and nutritional intake is adequate. Patient isnot at risk for malnutrition at this time.Intervention:Regular dietDischarge Nutrition Recommendations:Diet: RegularScreen per LOS policy. Pt eating well per lasting machine operator. Continue tomonitor and intervene per LOS policy or upon consultation.Present Diet Order: RegularAdmission Weight: 77.1 kg (170 lb)Current Weight: 77.1 kg (170 lb)Body mass index is 26.63 kg/(m2). class 1 obesityWeight has not changed.MNT Billing Type: Initial Assess/15 min 1 unitSIGNATURE: Roly Love RD PATIENT NAME: Matty WhitlockDATE: March 06, 2017 : 6:13 AM PAGER: [phone] [facility] PLAN OF CAREon 03-06-2017 PLAN OF CARE HNO ID: [id number] thor: Alesia Charles (Pharmacist)Service: PharmacyAuthor Type: PharmacistType: Plan of CareFiled: 03/06/2017 9:15 AMNote Text:PHARMACY CURRENT MEDICATION ASSESSMENTPATIENT NAME: Matty WhitlcokMRN: [id number] of SERVICE: 03/06/17TIME of SERVICE: 9:13 AMCurrent [...] a large copay and asked if this magazine writer could look into it. Verifiedwith insurance that the patient has a 0$ copay for this medication. Thereshould not be any issues upon discharge.SIGNATURE: ALESIA CHARLES PHARMACISTExt: [phone]: March 06, 2017TIME: 9:[address] [facility] PROGRESSon 03-06-2017 PROGRESS HNO ID: [id number] thor: Julianna Mei: (none)Author Type: PhysicianType: Progress NotesFiled: 03/06/2017 8:31 AMNote Text:PROGRESS NOTE BEHAVIORAL HEALTHSERVICE DATE: 03/06/2017SERVICE TIME: 10:10 AMThe Interdisciplinary team met and reviewed treatment goals and dischargeplanning.SAEIDI Skyler in office with serafin. Pt is provocative and makes dire threats [...] ?F) (Oral) Resp16 Ht 170.2 cm (5' 7") Wt 77.1 kg (170 lb) SpO2 98% BMI 26.63kg/p2BOCMIS STATUS EXAMINATION:Appearance: Appears stated age and In [...] - verify patch OTHER q 8 Hdivalproex (DEPAKOTE) tab(s) 750 mg 750 mg ORAL [...] WhitlockDATE: March 06, 2017 : 10:[address] [facility] CASE MANAGEMon 03-05-2017 CASE MANAGEM HNO ID: [id number] thor: Regina Plata () JunService: Behavioral HealthAuthor [...] may need tim placed in an animal alf. Currently patient is focused on returningto his place and is unable to consider joint terminal attack controller plans. Parents would likehim to commit to residential substance abuse treatment.SIGNATURE: YOSEF Forte PATIENT NAME: Matty WhitlockDATE: March 05, 2017 : 1:[address] [facility] NURSING PROGon 03-05-2017 NURSING PROG HNO ID: [id number] thor: Jessica (Rn) SHIREEN Cerdaervice: NursingAuthor Type: Registered NurseType: Nursing Progress NoteFiled: 03/06/2017 7:00 AMNote Text: Nursing Progress NotePatient Name: Matty WhitlockMRN: [id number] Location: [place] [address]*_ Daily Note:1929: Received report and assumed [...] unit protocol.This note was completed by: Jessica Cerda, RN [facility] NURSING PROG HNO ID: [id number] thor: Kiel Evans (Rn) Remy, RNService: (none)Author Type: Registered NurseType: Nursing Progress NoteFiled: 03/05/2017 6:18 PMNote Text: Nursing Progress NotePatient Name: Matty WhitlockMRN: [id number] Location: [place] [address]/[place] [address]*_ Daily Note:0852 Report received from previous shift, [...] states he doesn't want to go to senior care drug rehab butmight consider short term rehab, [...] note was completed by: Kiel Alberto RN [facility] NURSING PROG HNO ID: [id number] thor: Jessica (Rn) Prashant, RNService: NursingAuthor Type: Registered NurseType: Nursing Progress NoteFiled: 03/05/2017 6:23 AMNote Text: Nursing Progress NotePatient Name: Matty WhitlockMRN: [id number] Location: [place] [address]/[place] [address]*_ Daily Note:1929: Received report and assumed care of patient. Matty was sleeping inhis bed, resting comfortably.2048: Patient medication compliant with night time medications andrequested/received PRN Trazodone. Patient compliant with vital signs andstated he "feels better than before." Patient denies SI/HI and AVH.Patient denies any pain at this time. He has stayed in his room allevening, mainly sleeping.619: Patient has slept all night, did not come out of room at all.Patient has slept 11.5 hours. No behavioral issues observed overnight.Arm band intact, safety checks maintained per unit protocol.This note was completed by: Jessica Cerda RN [facility] PROGRESSon 03-05-2017 PROGRESS HNO ID: [id number] thor: Julianna EscaleraService: (none)Author Type: PhysicianType: Progress NotesFiled: 03/05/2017 8:30 AMNote Text:PROGRESS NOTE BEHAVIORAL HEALTHSERVICE DATE: 03/05/2017SERVICE TIME: 10:10 AMThe Interdisciplinary team met and reviewed treatment goals and dischargeplanning.SAEIDI NINAeen in office with sw and pharmacist. More [...] ?F) (Oral) Resp16 Ht 170.2 cm (5' 7") Wt 77.1 kg (170 lb) SpO2 97% BMI 26.63kg/i6RZRHVJ STATUS EXAMINATION:Appearance: Appears stated age and In [...] WhitlockDATE: March 05, 2017 : 10:[address] [facility] NURSING PROGon 03-04-2017 NURSING PROG HNO ID: [id number] thor: Kiel Evans (Rn) SHIREEN Albertoervice: (none)Author Type: Registered NurseType: Nursing Progress NoteFiled: 03/04/2017 6:36 PMNote Text: Nursing Progress NotePatient Name: Matty WhitlockMRN: [id number] Location: [place] [address]*_ Daily Note:1005 Pt requested and received [...] anxiety and demanding the haldol injection, received izlesn30 mg IM, will assess for results, will [...] given.This note was completed by: Kiel Alberto, MAXIMILIAN [facility] NURSING PROG HNO ID: [id number] thor: Khanh Mendoza ([facility]) Rylee Ordoñez: (none)Author Type: Behavorial Health AssistantType: Nursing Progress NoteFiled: 03/04/2017 2:19 PMNote Text: Nursing Progress NotePatient Name: Matty WhitlockMRN: [id number] Location: [place] [address]/[address]*_ Daily Note:0825 Pt was in room in [...] refusing allstructured groups ,when invited to groups "I'm not interested in any thingyou have to offer here" He was out for his lunch ,consumed 100% ,immediatly returned to his room . He denies any new monreal , denies SI,HI,AVhallucinations , encouraged to go to groups , remains on Q15's. Willcontinue to monitor .This note was completed by: Khanh Ordoñez [facility] NURSING PROG HNO ID: [id number] thor: Tisha (Rn) Syed, SHIREENervice: NursingAuthor Type: Registered NurseType: Nursing Progress NoteFiled: 03/04/2017 6:13 AMNote Text: Nursing Progress NotePatient Name: Matty WhitlockMRN: [id number] Location: TA-KNN9-4788/[place] [address]*_ Daily Note:2330 Received report and assumed care of patient. Patient resting quietlyin bed, eyes closed. Will continue to monitor.0612 Patient continues to sleep, 7 hours so far.Arm band intact, Q 15 minute safety checks maintained. Will continue tomonitor.This note was completed by: Tisha Lynch RN [facility] NURSING PROG HNO ID: [id number] thor: Brandon Reyna) LAURIE Fletcherervjason: (none)Author Type: LICENSED NURSEType: Nursing Progress NoteFiled: 03/03/2017 10:42 PMNote Text: Nursing Progress NotePatient Name: Matty WhitlockMRN: [id number] Location: [place] [address]/[place] [address]*_ Daily Note:Pt has been up for meals [...] note was completed by: Brandon Fletcher LPN [facility] PROGRESSon 03-04-2017 PROGRESS HNO ID: [id number] thor: Julianna EscaleraSer: (none)Author Type: PhysicianType: Progress NotesFiled: 03/04/2017 10:00 [...] ?F) (Oral) Resp16 Ht 170.2 cm (5' 7") Wt 77.1 kg (170 lb) SpO2 97% BMI 26.63kg/b7AROEAJ STATUS EXAMINATION:Appearance: Appears stated age and In [...] WhitlockDATE: March 04, 2017 : 10:10 AM Normal [facility] Valproic Acidon 03-04-2017 Valproic Acid 83.8 ug/mL Normal 50-100 [facility] Comment on above: Result Comment: Refe rence ranges and high/low indicator flags are provided as general guidelines only. The treating physician must determine appropriate target levels/dosing based on the specific clinical situation. Performed By: #### V PA ####[facility] [place], [place] [phone] ALLIED HEALTHon 03-03-2017 Creatinine HNO ID: [id number] thor: Sr. Denney (Ny-) FAUSTINO Del Rioervice: Recreational TherapyAuthor Type: TherapistType: Allied HealthFiled: 03/03/2017 [...] 03, 2017 : 3:37 PM PAGER/CONTACT #: [facility] CASE MANAGEMon 03-03-2017 CASE MANAGEM HNO ID: [id number] thor: Regina Akers) CelsoService: Behavioral HealthAuthor Type: [...] point, he was [facility]in [facility] 9 months and did well for awhile. He wasable to sustain temporary employment and had an apartment. However, permother, he was seclusive and had "no one in his life", a very lonely anddisengaged existence and became reinvolved with drugs. Mother verifiedthat patient is evicted as of Thursday. Parents are cleaning out hisapartment. They are trying to find someone to take in his cat. They wouldlike him in joint terminal attack controller substance abuse treatment. Mother states he has verylow self esteem and feels very hopeless. He also has a history of makingviolent threats when high. She feels he is high risk to suicide afterdischarge or will doing "something so hateful" due to his impulsiveness.SIGNATURE: YOSEF Forte PATIENT NAME: Matty WhitlockDATE: March 03, 2017 : 3:[address] [facility] NURSING PROGon 03-03-2017 NURSING PROG HNO ID: [id number] thor: Khanh Mendoza ([facility]) Rylee Ordoñez: (none)Author Type: Behavorial Health AssistantType: Nursing Progress NoteFiled: 03/03/2017 2:43 PMNote Text: Nursing Progress NotePatient Name: Matty Francois: [id number] Location: UN-CXL7-7195/[facility]-015*_ Daily Note:1312 Assumed care of pt @ [...] .This note was completed by: Khanh Ordoñez [facility] NURSING PROG HNO ID: [id number] thor: LAURIE Mcmahon Lpnervice: Behavioral HealthAuthor Type: LICENSED NURSEType: Nursing Progress NoteFiled: 03/03/2017 6:43 AMNote Text: Nursing Progress NotePatient Name: Matty Francois: [id number] Location: KQ-NUC3-7742/-[facility]-[address]*_ Daily Note:2330: Assumed care of patient, patient sleeping in bed. t16uowfhv checks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 k/uL Normal 1.45-7.50 [facility] Comment on above: Performed By: #### C BCDIF, CMP ####[place] [address] Basophils/100 WBC Auto (Bld) 0.3 % Normal [facility] Comment on above: Performed By: #### C BCDIF, CMP ####[place] [address] Eosinophils 0.34 10*3/uL Normal 0.00-0.45 [facility] Comment on above: Performed By: #### C BCDIF, CMP ####[place] [address] Eosinophils/100 leukocytes 3.1 % Normal [facility] Comment on above: Performed By: #### C BCDESHAWN CMP ####[place] [address] Erythrocyte distribution width Auto Ratio (RBC) 13.2 % Normal 11.5-15.0 [facility] Comment on above: Performed By: #### C BCROSIOF CMP ####[place] [address] Erythrocytes (RBC) 4.30 10*6/uL Normal 4.20-6.00 [facility] Comment on above: Performed By: #### C BCDESHAWN CMP ####[place] [address] Hematocrit (HCT) 38.5 % Low 39.0-51.0 [facility] Comment on above: Performed By: #### C BCROSIOF, CMP ####[place] [address] Hemoglobin mass conc (Bld) 12.9 g/dL Low 13.0-17.0 [facility] Comment on above: Performed By: #### C BCDIF, CMP ####[place] [address] Lymphocytes 2.17 10*3/uL Normal 1.00-4.00 [facility] Comment on above: Performed By: #### C BCDIF, CMP ####[place] [address] Lymphocytes/100 leukocytes 20.0 % Normal [facility] Comment on above: Performed By: #### C BCDIF, CMP ####[facility] [address] [place] [address] MCH 30.0 pG Normal 26.0-34.0 [facility] Comment on above: Performed By: #### C BCDIF, CMP ####[facility] [address] [place] [address] MCHC mass conc (RBC) 33.5 g/dL Normal 30.5-36.0 [facility] Comment on above: Performed By: #### C BCDIF, CMP ####[facility] [address] [place] [address] MCV 89.5 fL Normal 80.0-100.0 [facility] Comment on above: Performed By: #### C BCDIF CMP ####[place] [address] Monocytes/100 leukocytes 8.5 % Normal [facility] Comment on above: Performed By: #### C BCROSIOF CMP ####[facility] [address] [place] [address] Neutrophils/100 WBC Auto (Bld) 68.1 % Normal [facility] Comment on above: Performed By: #### C BCDESHAWN CMP ####[place] [address] Platelet mean volume (PMV) 10.4 fL Normal 9.0-12.7 [facility] Comment on above: Performed By: #### C BCDIF, CMP ####[place] [address] Platelets 190 10*3/uL Normal 150-400 [facility] Comment on above: Performed By: #### C BCDIF, CMP ####[place] [address] WBC (Leukocytes) 10.84 10*3/uL Normal 3.70-11.00 [facility] Comment on above: Performed By: #### C BCDIF, CMP ####[facility] [address] [place] [address] Comp Metabolic Panelon 01-06 Alanine aminotransferase (ALT) 13 U/L Normal 5-50 [facility] Comment on above: Performed By: #### C BCDIF, CMP ####[facility] [address] [place] [address] Albumin 4.4 g/dL Normal 3.5-5.0 [facility] Comment on above: Performed By: #### C BCDIF, CMP ####[facility] [address] [place] [address] Alkaline phosphatase (ALP) 58 U/L Normal 40-150 [facility] Comment on above: Performed By: #### C BCDIF, CMP ####[facility] [address] [place] [address] Anion gap 14 mmol/L Normal 0-15 [facility] Comment on above: Performed By: #### C BCDIF, CMP ####[place] [address] Aspartate aminotransferase (AST) 16 U/L Normal 7-40 [facility] Comment on above: Performed By: #### C BCDIF, CMP ####[facility] [address] [place] [address] Bilirubin (total) 0.5 mg/dL Normal 0.0-1.5 [facility] Comment on above: Performed By: #### C BCDIF, CMP ####[place] [address] Calcium 9.2 mg/dL Normal 8.5-10.5 [facility] Comment on above: Performed By: #### C BCDIF, CMP ####[facility] [address] [place] [address] Chloride 99 mmol/L Normal 98-110 [facility] Comment on above: Performed By: #### C BCDIF, CMP ####[facility] [address] [place] [address] CO2 26 mmol/L Normal 23-32 [facility] Comment on above: Performed By: #### C BCDIF, CMP ####[facility] [address] [place] [address] Creatinine 0.93 mg/dL Normal 0.70-1.40 [facility] Comment on above: Performed By: #### C BCDIF, CMP ####[facility] [address] [place] [address] eGFR (non-black) mL/min/{1.73_m2} Normal [facility] Comment on above: Result Comment: eGFR [...] GFR. Performed By: #### C BCDIF, CMP ####[place] [address] Glucose mass conc 91 mg/dL Normal 65-100 [facility] Comment on above: Performed By: #### C BCDIF, CMP ####[place] [address] Potassium molar conc 3.4 mmol/L Low 3.5-5.0 [facility] Comment on above: Performed By: #### C BCDIF, CMP ####[place] [address] Protein 6.8 g/dL Normal 6.0-8.4 [facility] Comment on above: Performed By: #### C BCDIF, CMP ####[place] [address] Sodium 139 mmol/L Normal 135-146 [facility] Comment on above: Performed By: #### C BCDIF, CMP ####[place] [address] Urea nitrogen 11 mg/dL Normal 10-25 [facility] Comment on above: Performed By: #### C BCDIF, CMP ####[place] [address] ED NOTEon 01-06-2017 ED NOTE HNO ID: [id number] thor: Sindi (Rn) SHIREEN Starrervice: (none)Author Type: Registered NurseType: ED NotesFiled: 01/06/2017 4:59 PMNote Text: Pt discharged to home. Discharge Instructions/ RX x 2/ Follow UpInstructions reviewed with patient with teach back method completed. [facility] ED NOTE HNO ID: [id number] thor: Cristina (Rn) Boyd Nguyenice: (none)Author Type: Registered NurseType: ED NotesFiled: 01/06/2017 3:12 PMNote Text: Patient was seen in Triage by Catina Dietz, told he would be given toradoland dc'd to home, patient walked out. Apparently he went to smoke andcame back in, patient had been dismissed as AMA when he walked out anddischarge was reversed after he came back in. [facility] [facility] ED NOTE HNO ID: [id number] thor: Albina (Rn) SHIREEN Kentervice: (none)Author Type: Registered NurseType: ED NotesFiled: 01/06/2017 2:33 PMNote Text:Pt states lower extremities began swelling and began getting red Lastnight at nine pm. States in extreme pain 10/10. Pt states he is veryanxious and has significant psych history. Lower extremities +2 edema.Denies trauma to lower extremities. [facility] ED PROV NOTEon 01-06-2017 ED PROV NOTE HNO ID: [id number] thor: Alethea Castelan) Mekhi: (none)Author Type: Physician AssistantType: ED Provider NotesFiled: 01/06/2017 4:58 PMNote Text:ED Provider NotePatient Name: Matty WhitlockMRN: [id number] DATE: 01/06/17HistoryNo chief complaint on file.HPI Comments: [...] 38.5 (*) 39.0 - 51.0 % Abs [place] 0.92 (*) 0.00 - 0.86 k/uL All [...] of disposition: improvedSIGNATURE: NORMA Maher-Yuliana Ovalle (Norma) Jxixhuo85/12/17 1658 Normal [facility] NT Pro BNPon 01-06-2017 PRO B Natr Peptide <5 Normal <125 [facility] Comment on above: Performed By: #### N TBNP ####[facility] [address] [place], [place] [phone] XR ANKLE 3V AP/LAT/OBL LTon 01-06-2017 XR [...] Soft tissue swelling over bilateral ankles. See result.Shine Worker: PSCTroy Transcribe Date/Time: Jan 06 2017 3:55PDictated by : CRISTINA SHEPHERD MDThis examination was interpreted and the report reviewed and electronically signed by: CRISTINA SHEPHERD MD on Jan 06 2017 3:58PM [id number] [facility] XR ANKLE 3V AP/LAT/OBL RTon 01-06-2017 XR [...] Soft tissue swelling over bilateral ankles. See result.Shine Worker: MINERVA Transcribe Date/Time: Jan 06 2017 3:55PDictated by : CRISTINA SHPEHERD MDThis examination was interpreted and the report reviewed and electronically signed by: CRISTINA SHEPHERD MD on Jan 06 2017 3:58PM [id number] [facility] ED NOTEon 12-27-2016 ED NOTE HNO ID: [id number] thor: Vida Sutton) SHIREEN Abrahamervice: NursingAuthor Type: Registered NurseType: ED NotesFiled: 12/29/2016 11:44 AMNote Text:Emergency Services: ED Call Back QuestionnaireSERVICE DATE: 12/27/2016Are you feeling better? YesAny questions about discharge instructions and follow-up care? NoWere you able to make a follow up appointment? No, referred to appointmenthotline pt was given a list of urologists in the [place] area since he hastransportation issuesDo you have any further questions? NoIs there anything that we could have done differently to improve your EDvisit? NoSIGNATURE: Vida Abraham RN PATIENT NAME: Matty WhitlockDATE: December 29, 2016 : 11:[address] [facility] ED NOTE HNO ID: [id number] thor: Arjun Sutton) Boyd Aguileraice: (none)Author Type: Registered NurseType: ED NotesFiled: 12/27/2016 8:18 AMNote Text:Pt presented to ED with C/O testicle pain and testicular changes. Ptbelieves he may have an infection. He sts he has noticed some greendischarge from his penis" Normal [facility] ED PROV NOTEon 12-27-2016 ED PROV NOTE HNO ID: [id number] thor: Che Lerner, MDService: (none)Author Type: PhysicianType: ED Provider NotesFiled: 12/27/2016 8:27 AMNote Text:ED Provider NotePatient Name: Matty WhitlockMRN: [id number] DATE: 12/27/16HistoryPatient presents with:Testicular PainHPI Comments: History [...] time of disposition: stableSIGNATURE: Makeda Stanton MD12/27/16 0803 Normal [facility] Basic Metabolic Panlon 11-30 Anion gap 13 mmol/L Normal 0-15 [facility] Comment on above: Performed By: #### B MP ####[facility] [address] [place], [place] [phone] Calcium 9.5 mg/dL Normal 8.5-10.5 [facility] Comment on above: Performed By: #### B MP ####[facility] [address] [place] [address] Chloride 96 mmol/L Low 98-110 [facility] Comment on above: Performed By: #### B MP ####[facility] [address] [place] [address] CO2 27 mmol/L Normal 23-32 [facility] Comment on above: Performed By: #### B MP ####[facility] [address] [place] [address] Creatinine 1.01 mg/dL Normal 0.70-1.40 [facility] Comment on above: Performed By: #### B MP ####[facility] [address] [place] [address] eGFR (non-black) mL/min/{1.73_m2} Normal [facility] Comment on above: Result Comment: eGFR [...] actual GFR. Performed By: #### B MP ####[facility] [address] [place] [address] Glucose mass conc 89 mg/dL Normal 65-100 [facility] Comment on above: Performed By: #### B MP ####[place] [address] Potassium molar conc 3.5 mmol/L Normal 3.5-5.0 [facility] Comment on above: Performed By: #### B MP ####[place] [address] Sodium 136 mmol/L Normal 135-146 [facility] Comment on above: Performed By: #### B MP ####[facility] [address] [place] [address] Urea nitrogen 13 mg/dL Normal 10-25 [facility] Comment on above: Performed By: #### B MP ####[facility] [address] [place] [address] CBC and Differentialon 11-30 Abs Baso 0.03 k/uL Normal 0.00-0.10 [facility] Comment on above: Performed By: #### C BCDIF ####[facility] [address] [place] [address] Abs [place] 1.00 k/uL High 0.00-0.86 [facility] Comment on above: Performed By: #### C BCDIF ####[facility] [address] [place] [address] Abs Neut 9.39 k/uL High 1.45-7.50 [facility] Comment on above: Performed By: #### C BCDIF ####[place] [address] Basophils/100 WBC Auto (Bld) 0.2 % Normal [facility] Comment on above: Performed By: #### C BCDIF ####[facility] [address] [place] [address] Eosinophils 0.32 10*3/uL Normal 0.00-0.45 [facility] Comment on above: Performed By: #### C BCDIF ####[place] [address] Eosinophils/100 leukocytes 2.5 % Normal [facility] Comment on above: Performed By: #### C BCDIF ####[place] [address] Erythrocyte distribution width Auto Ratio (RBC) 13.4 % Normal 11.5-15.0 [facility] Comment on above: Performed By: #### C BCDIF ####[place] [address] Erythrocytes (RBC) 4.82 10*6/uL Normal 4.20-6.00 [facility] Comment on above: Performed By: #### C BCDIF ####[facility] [address] [place] [address] Hematocrit (HCT) 43.5 % Normal 39.0-51.0 [facility] Comment on above: Performed By: #### C BCDIF ####[facility] [address] [place] [address] Hemoglobin mass conc (Bld) 14.7 g/dL Normal 13.0-17.0 [facility] Comment on above: Performed By: #### C BCDIF ####[place] [address] Lymphocytes 1.81 10*3/uL Normal 1.00-4.00 [facility] Comment on above: Performed By: #### C BCDIF ####[place] [address] Lymphocytes/100 leukocytes 14.4 % Normal [facility] Comment on above: Performed By: #### C BCDIF ####[place] [address] MCH 30.5 pG Normal 26.0-34.0 [facility] Comment on above: Performed By: #### C BCDIF ####[place] [address] MCHC mass conc (RBC) 33.8 g/dL Normal 30.5-36.0 [facility] Comment on above: Performed By: #### C BCDIF ####[place] [address] MCV 90.2 fL Normal 80.0-100.0 [facility] Comment on above: Performed By: #### C BCDIF ####[place] [address] Monocytes/100 leukocytes 8.0 % Normal [facility] Comment on above: Performed By: #### C BCDIF ####[place] [address] Neutrophils/100 WBC Auto (Bld) 74.9 % Normal [facility] Comment on above: Performed By: #### C BCDIF ####[place] [address] Platelet mean volume (PMV) 10.4 fL Normal 9.0-12.7 [facility] Comment on above: Performed By: #### C BCDIF ####[facility] [address] [place] [phone] Platelets 257 10*3/uL Normal 150-400 [facility] Comment on above: Performed By: #### C BCDIF ####[facility] [address] [place] [phone] WBC (Leukocytes) 12.55 10*3/uL High 3.70-11.00 [facility] Comment on above: Performed By: #### C BCDIF ####[facility] [address] [place] [phone] ED NOTEon 11-30-2016 ED NOTE HNO ID: [id number] Author: Regina DodgeRn) MAXIMILIAN Sommer Service: Nursing Author Type: Registered Nurse Type: ED Notes Filed: 11/30/2016 4:52 PM Note Text: Normal [facility] ED NOTE HNO ID: [id number] thor: Arjun (Rn) SHIREEN Aguileraervice: (none)Author Type: Registered NurseType: ED NotesFiled: 11/30/2016 4:26 PMNote Text:Pt to ED today CC of bilateral leg edema - L worse then right. Pt sts hehas been very depressed lately but denies SI or HI. Normal [facility] ED PROV NOTEon 11-30-2016 ED PROV NOTE HNO ID: [id number] thor: Regina Castelan) ReillyService: Emergency MedicineAuthor Type: Physician AssistantType: ED Provider NotesFiled: 11/30/2016 7:14 PMNote Text:ED Provider NotePatient Name: Matty WhitlockMRN: [id number] DATE: 11/30/16HistoryPatient presents with:Leg EdemaAnxietyHPI Comments: 26 [...] 9.39 (*) 1.45 - 7.50 k/uL Abs [place] 1.00 (*) 0.00 - 0.86 k/uL All [...] AtaraxCondition at time of disposition: stableSIGNATURE: NORMA Dumas-CMary (Norma) Iftsqk29/06/171913 [facility] LEG VEIN DVT BILATon 08-0 Bilirubin (total) * * *Final Report* * *DATE OF EXAM: Nov 30 2016 6:19PM GABRIELA 0072 - LEG VEIN DVT BILAT / REASON: Pain [...] MD on Nov 30 2016 6:25PM EST [facility] Vital Signs Date Time Vital Sign Value Performing Clinician Facility 11-15-2024 16:28-0400 Body temperature 97.6 [degF] Dr. Laine Dye MD Work Phone: [facility] 11-15-2024 16:28-0400 Diastolic blood pressure 65 mm[Hg] Dr. Laine Dye MD Work Phone: [facility] 11-15-2024 16:28-0400 Heart rate 94 /min Dr. Laine Dye MD Work Phone: [facility] 11-15-2024 16:28-0400 Respiratory rate 24 /min Dr. Laine Dye MD Work Phone: [facility] 11-15-2024 16:28-0400 SaO2% (BldA) [Mass fraction] 98 % Dr. Laine Dye MD Work Phone: [facility] 11-15-2024 16:28-0400 Systolic blood pressure 108 mm[Hg] Dr. Laine Dye MD Work Phone: 5(592)066-508420 [place] [address] 11-15-2024 12:31-0400 Body height 170.[address] Laine Dye MD Work Phone: 2(313)268-706502 [place] [address] 11-15-2024 12:31-0400 Body mass index (BMI) [Ratio] 29.4 kg/m2 Dr. Laine Dye MD Work Phone: 6(270)950-098702 [place] [address] 11-15-2024 12:31-0400 Body weight 85.[address] Laine Dye MD Work Phone: [facility] 11-14-2024 06:42-0400 Body temperature 98.5 [degF] Dr. Laine Dye MD Work Phone: [facility] 11-14-2024 06:42-0400 Diastolic blood pressure 84 mm[Hg] Dr. Laine Dye MD Work Phone: 3(409)519-303120 [place] [address] 11-14-2024 06:42-0400 Heart rate 84 /min Dr. Laine Dye MD Work Phone: [facility] 11-14-2024 06:42-0400 Respiratory rate 18 /min Dr. Laine Dye MD Work Phone: [facility] 11-14-2024 06:42-0400 SaO2% (BldA) [Mass fraction] 100 % Dr. Laine Dye MD Work Phone: [facility] 11-14-2024 06:42-0400 Systolic blood pressure 113 mm[Hg] Dr. Laine Dye MD Work Phone: [facility] 11-14-2024 06:23-0400 Body height 170.[address] Laine Dye MD Work Phone: [facility] 11-12-2024 12:06-0400 Body temperature 97.8 [degF] Dr. Laine Dye MD Work Phone: 6(518)425-107020 [place] [address] 11-12-2024 12:06-0400 Diastolic blood pressure 82 mm[Hg] Dr. Laine Dye MD Work Phone: 1(191)548-018620 [place] [address] 11-12-2024 12:06-0400 Heart rate 82 /min Dr. Laine Dye MD Work Phone: 4(663)848-282220 [place] [address] 11-12-2024 12:06-0400 Respiratory rate 16 /min Dr. Laine Dye MD Work Phone: 5(822)491-826320 [place] [address] 11-12-2024 12:06-0400 SaO2% (BldA) [Mass fraction] 100 % Dr. Laine Dye MD Work Phone: [facility] 11-12-2024 12:06-0400 Systolic blood pressure 127 mm[Hg] Dr. Laine Dye MD Work Phone: [facility] 11-12-2024 09:26-0400 Body height 170.[address] Laine Dye MD Work Phone: [facility] 11-12-2024 09:26-0400 Body mass index (BMI) [Ratio] 28.3 kg/m2 Dr. Laine Dye MD Work Phone: 6(472)658-498720 [place] [address] 11-12-2024 09:26-0400 Body weight 82.[address] Laine Dye MD Work Phone: [facility] 11-01-2024 19:48-0400 Body temperature 98.2 [degF] Dr. Laine Dye MD Work Phone: [facility] 11-01-2024 19:48-0400 Diastolic blood pressure 66 mm[Hg] Dr. Laine Dye MD Work Phone: [facility] 11-01-2024 19:48-0400 Heart rate 65 /min Dr. Laine Dye MD Work Phone: [facility] 11-01-2024 19:48-0400 Respiratory rate 16 /min Dr. Laine yDe MD Work Phone: 4(275)445-314620 [place] [address] 11-01-2024 19:48-0400 SaO2% (BldA) [Mass fraction] 98 % Dr. Laine Dye MD Work Phone: 9(944)496-651520 [place] [address] 11-01-2024 19:48-0400 Systolic blood pressure 117 mm[Hg] Dr. Laine Dye MD Work Phone: 8(737)711-041702 [place] [address] 11-01-2024 14:23-0400 Body height 170.[address] Laine Dye MD Work Phone: 9(364)258-507502 [place] [address] 11-01-2024 14:23-0400 Body mass index (BMI) [Ratio] 30 kg/m2 Dr. Laine Dye MD Work Phone: 1(490)779-833720 [place] [address] 11-01-2024 14:23-0400 Body weight 86.[address] Laine Dye MD Work Phone: [facility] 10-21-2024 13:00-0400 Body temperature 97.9 [degF] Dr. Laine Dye MD Work Phone: [facility] 10-21-2024 13:00-0400 Diastolic blood pressure 67 mm[Hg] Dr. Laine Dye MD Work Phone: 2(331)777-422520 [place] [address] 10-21-2024 13:00-0400 Heart rate 48 /min Dr. Laine Dye MD Work Phone: [facility] 10-21-2024 13:00-0400 Respiratory rate 16 /min Dr. Laine Dye MD Work Phone: 0(189)173-015020 [place] [address] 10-21-2024 13:00-0400 SaO2% (BldA) [Mass fraction] 95 % Dr. Laine Dye MD Work Phone: 8(736)832-771320 [place] [address] 10-21-2024 13:00-0400 Systolic blood pressure 105 mm[Hg] Dr. Laine Dye MD Work Phone: 7(144)573-191402 [place] [address] 10-21-2024 11:14-0400 Body height 170.[address] Laine Dye MD Work Phone: 1(032)229-252602 [place] [address] 10-21-2024 11:14-0400 Body mass index (BMI) [Ratio] 27.9 kg/m2 Dr. Laine Dye MD Work Phone: 1(874)098-916702 [place] [address] 10-21-2024 11:14-0400 Body weight [address] Laine Dye MD Work Phone: 8(408)256-848502 [place] [address] 10-19-2024 16:54-0400 Body temperature 97.2 [degF] Dr. Laine Dye MD Work Phone: 5(427)900-115902 [place] [address] 10-19-2024 16:54-0400 Diastolic blood pressure 65 mm[Hg] Dr. Laine Dye MD Work Phone: 2(983)716-123620 [place] [address] 10-19-2024 16:54-0400 Heart rate 80 /min Dr. Laine Dye MD Work Phone: 5(570)110-346620 [place] [address] 10-19-2024 16:54-0400 Respiratory rate 18 /min Dr. Laine Dye MD Work Phone: 9(008)595-535702 [place] [address] 10-19-2024 16:54-0400 SaO2% (BldA) [Mass fraction] 99 % Dr. Laine Dye MD Work Phone: 5(323)424-369820 [place] [address] 10-19-2024 16:54-0400 Systolic blood pressure 117 mm[Hg] Dr. Laine Dye MD Work Phone: 1(173)771-624702 [place] [address] 10-19-2024 12:17-0400 Body height 170.[address] Laine Dye MD Work Phone: [facility] 10-19-2024 12:17-0400 Body mass index (BMI) [Ratio] 29.1 kg/m2 Dr. Laine Dye MD Work Phone: [facility] 10-19-2024 12:17-0400 Body weight 84.[address] Laine Dye MD Work Phone: 9(102)774-807920 [place] [address] 08-12-2024 20:38-0400 Body temperature 98.2 [degF] Dr. Laine Dye MD Work Phone: 1(772)522-218220 [place] [address] 08-12-2024 20:38-0400 Diastolic blood pressure 61 mm[Hg] Dr. Laine Dye MD Work Phone: 9(803)818-946131 [address] 08-12-2024 20:38-0400 Heart rate 77 /min Dr. Laine Dye MD Work Phone: 7(274)757-934220 [place] [address] 08-12-2024 20:38-0400 Respiratory rate 16 /min Dr. Laine Dye MD Work Phone: 3(535)515-621120 [place] [address] 08-12-2024 20:38-0400 SaO2% (BldA) [Mass fraction] 98 % Dr. Laine Dye MD Work Phone: [facility] 08-12-2024 20:38-0400 Systolic blood pressure 104 mm[Hg] Dr. Laine Dye MD Work Phone: [facility] 08-12-2024 15:26-0400 Body height 170.[address] Laine Dye MD Work Phone: 0(643)225-875420 [place] [address] 08-12-2024 15:26-0400 Body mass index (BMI) [Ratio] 31.7 kg/m2 Dr. Laine Dye MD Work Phone: [facility] 08-12-2024 15:26-0400 Body weight 91.[address] Laine Dye MD Work Phone: [facility] 07-11-2024 15:39-0400 Body temperature 98.1 [degF] Dr. Laine Dye MD Work Phone: [facility] 07-11-2024 15:39-0400 Diastolic blood pressure 84 mm[Hg] Dr. Laine Dye MD Work Phone: [facility] 07-11-2024 15:39-0400 Heart rate 77 /min Dr. Laine Dye MD Work Phone: [facility] 07-11-2024 15:39-0400 Respiratory rate 16 /min Dr. Laine Dye MD Work Phone: [facility] 07-11-2024 15:39-0400 SaO2% (BldA) [Mass fraction] 95 % Dr. Laine Dye MD Work Phone: [facility] 07-11-2024 15:39-0400 Systolic blood pressure 128 mm[Hg] Dr. Laine Dye MD Work Phone: [facility] 07-11-2024 10:53-0400 Body height 170.[address] Laine Dye MD Work Phone: [facility] 07-11-2024 10:53-0400 Body mass index (BMI) [Ratio] 32.8 kg/m2 Dr. Laine Dye MD Work Phone: [facility] 07-11-2024 10:53-0400 Body weight 95.[address] Laine Dye MD Work Phone: [facility] 01-06-2024 00:03-0400 Heart rate 78 /min Sylvester Ramirez Work Phone: [facility] 01-06-2024 00:03-0400 Respiratory rate 20 /min Sylvester Ramirez Work Phone: [facility] 01-05-2024 21:57-0400 Body height 165.1 cm Sylvester Ramirez Work Phone: [facility] 01-05-2024 21:57-0400 Body temperature 98.78 [degF] Sylvester HeADTELLIGENCEelman Work Phone: [facility] 01-05-2024 21:57-0400 Body weight 68.03 kg Sylvester Heinselman Work Phone: [facility] 01-05-2024 21:57-0400 Diastolic blood pressure 79 mm[Hg] Sylvester HeADTELLIGENCEelma n Work Phone: [facility] 01-05-2024 21:57-0400 SaO2% (BldA) [Mass fraction] 97 % Sylvester iCenteraelman Work Phone: [facility] 01-05-2024 21:57-0400 Systolic blood pressure 124 mm[Hg] Sylvester Heinselman Work Phone: [facility] 11-30-2023 12:00-0400 Heart rate 93 /min Sylvester SeverinoADTELLIGENCEelman Work Phone: [facility] 11-30-2023 12:00-0400 Respiratory rate 18 /min Sylvester iCenteraelRostima Work Phone: [facility] 11-30-2023 12:00-0400 SaO2% (BldA) [Mass fraction] 98 % Sylvester HeADTELLIGENCEelman Work Phone: [facility] 11-30-2023 08:00-0400 Diastolic blood pressure 83 mm[Hg] Sylvester iCenteraelma n Work Phone: [facility] 11-30-2023 08:00-0400 Systolic blood pressure 104 mm[Hg] Sylvester Heinselman Work Phone: [facility] 11-30-2023 02:21-0400 Body height 170.18 cm Sylvester HeADTELLIGENCEelman Work Phone: [facility] 11-30-2023 02:21-0400 Body temperature 98.42 [degF] Sylvester HeADTELLIGENCEelman Work Phone: [facility] 11-30-2023 02:21-0400 Body weight 64.86 kg Sylvester Ramirez Work Phone: [facility] 09-01-2023 03:58-0400 Respiratory rate 16 /min Ze Palmer Jr., DO Work Phone: [facility] [employer] 09-01-2023 03:58-0400 SaO2% (BldA) [Mass fraction] 99 % Ze Palmer Jr., DO Work Phone: [facility] [employer] 08-31-2023 22:39-0400 Body mass index (BMI) [Ratio] 24.43 kg/m2 Ze Palmer Jr., DO Work Phone: [facility] [employer] 08-31-2023 22:39-0400 Body temperature 98.01 [degF] Ze Palmer Jr., DO Work Phone: [facility] [employer] 08-31-2023 22:39-0400 Body weight 70.76 kg Ze Palmer Jr., DO Work Phone: [facility] [employer] 08-31-2023 22:39-0400 Diastolic blood pressure 63 mm[Hg] Ze Prieto i, Jr., DO Work Phone: [facility] [employer] 08-31-2023 22:39-0400 Heart rate 94 /min Ze Palmer Jr., DO Work Phone: [facility] [employer] 08-31-2023 22:39-0400 Systolic blood pressure 121 mm[Hg] Ze Palmer Jr., DO Work Phone: [facility] [employer] 08-11-2023 05:00-0400 Diastolic blood pressure 76 mm[Hg] Wes Jackson D O Work Phone: [facility] 08-11-2023 05:00-0400 Heart rate 82 /min Wes Jackson DO Work Phone: [facility] 08-11-2023 05:00-0400 Respiratory rate 17 /min Wes Jackson DO Work Phone: [facility] 08-11-2023 05:00-0400 SaO2% (BldA) [Mass fraction] 98 % Wes Jackson DO Work Phone: [facility] 08-11-2023 05:00-0400 Systolic blood pressure 120 mm[Hg] Wes Jackson DO Work Phone: [facility] 08-10-2023 20:48-0400 Body height 177.8 cm Wes Jackson DO Work Phone: [facility] 08-10-2023 20:48-0400 Body mass index (BMI) [Ratio] 21.52 kg/m2 Wes Jackson DO Work Phone: [facility] 08-10-2023 20:48-0400 Body temperature 98.01 [degF] Wes Jackson DO Work Phone: [facility] 08-10-2023 20:48-0400 Body weight 68.04 kg Wes Jackson DO Work Phone: [facility] 07-02-2023 07:00-0500 Respiratory rate 16 /min [facility] 07-02-2023 06:07-0500 Diastolic blood pressure 79 mm[Hg] [facility] 07-02-2023 06:07-0500 Heart rate 69 /min [facility] 07-02-2023 06:07-0500 SaO2% (BldA) [Mass fraction] 97 % [facility] 07-02-2023 06:07-0500 Systolic blood pressure 124 mm[Hg] [facility] 07-02-2023 00:10-0500 Body height 170.18 cm [facility] 07-02-2023 00:10-0500 Body mass index (BMI) [Ratio] 24.3 kg/m2 [facility] 07-02-2023 00:10-0500 Body temperature 98 [degF] [facility] 07-02-2023 00:10-0500 Body weight 70.3 kg [facility] 05-28-2023 13:29-0500 Body height 170.18 cm [facility] 05-28-2023 13:29-0500 Body mass index (BMI) [Ratio] 24 kg/m2 [facility] 05-28-2023 13:29-0500 Body temperature 97.2 [degF] [facility] 05-28-2023 13:29-0500 Body weight 69.8 kg [facility] 05-28-2023 13:29-0500 Diastolic blood pressure 92 mm[Hg] [facility] 05-28-2023 13:29-0500 Heart rate 82 /min [facility] 05-28-2023 13:29-0500 Respiratory rate 18 /min [facility] 05-28-2023 13:29-0500 SaO2% (BldA) [Mass fraction] 99 % [facility] 05-28-2023 13:29-0500 Systolic blood pressure 124 mm[Hg] [facility] 01-04-2023 20:48-0400 SaO2% (BldA) [Mass fraction] 9 % LAINE DYE [facility] Comment on above: Order Comment: Specimen Type: ARTERIAL B LOOD SPECIMENOrdering Facility: [facility] Address: [address] [place] [id number] Performed By: #### A LLBG ####[facility] LABORATORYCLIA [id number] [place] [address] [place] 01-04-2023 15:54-0400 Body temperature 98.1 [degF] [facility] 01-04-2023 15:54-0400 Diastolic blood pressure 64 mm[Hg] [facility] 01-04-2023 15:54-0400 Heart rate 74 /min [facility] 01-04-2023 15:54-0400 Respiratory rate 16 /min [facility] 01-04-2023 15:54-0400 SaO2% (BldA) [Mass fraction] 95 % [facility] 01-04-2023 15:54-0400 Systolic blood pressure 103 mm[Hg] [facility] 01-04-2023 14:40-0400 Body height 170.18 cm [facility] 01-04-2023 14:40-0400 Body mass index (BMI) [Ratio] 25.7 kg/m2 [facility] 01-04-2023 14:40-0400 Body weight 74.5 kg [facility] 09-17-2022 01:48-0400 Body mass index (BMI) [Ratio] 27.9 kg/m2 [facility] 09-17-2022 01:48-0400 Body temperature 97.8 [degF] [facility] 09-17-2022 01:48-0400 Body weight 81 kg [facility] 09-17-2022 01:48-0400 Diastolic blood pressure 83 mm[Hg] [facility] 09-17-2022 01:48-0400 Heart rate 89 /min [facility] 09-17-2022 01:48-0400 Respiratory rate 18 /min [facility] 09-17-2022 01:48-0400 SaO2% (BldA) [Mass fraction] 97 % [facility] 09-17-2022 01:48-0400 Systolic blood pressure 128 mm[Hg] [facility] 09-03-2022 23:13-0400 Heart rate 95 /min [facility] 09-03-2022 23:13-0400 Respiratory rate 15 /min [facility] 09-03-2022 23:13-0400 SaO2% (BldA) [Mass fraction] 99 % [facility] 09-03-2022 22:21-0400 Diastolic blood pressure 100 mm[Hg] [facility] 09-03-2022 22:21-0400 Systolic blood pressure 129 mm[Hg] [facility] 09-03-2022 22:03-0400 Body mass index (BMI) [Ratio] 26.5 kg/m2 [facility] 09-03-2022 22:03-0400 Body weight 76.8 kg [facility] 09-03-2022 21:22-0400 Body height 170.18 cm [facility] 09-03-2022 21:22-0400 Body temperature 97.8 [degF] [facility] 07-16-2022 15:23-0400 Body temperature 97.81 [degF] Rusty Townsend PROFESSOR OF INDUSTRIAL TECHNOLOGY.SLEEVE FIXER Work Phone: [facility] 07-16-2022 15:23-0400 Body weight 81.28 kg Rusty Townsend PROFESSOR OF INDUSTRIAL TECHNOLOGY.SLEEVE FIXER Work Phone: [facility] 07-16-2022 15:23-0400 Diastolic blood pressure 84 mm[Hg] Rusty Townsend PROFESSOR OF INDUSTRIAL TECHNOLOGY.SLEEVE FIXER Work Phone: [facility] 07-16-2022 15:23-0400 Heart rate 82 /min Rusty Townsend PROFESSOR OF INDUSTRIAL TECHNOLOGY.SLEEVE FIXER Work Phone: [facility] 07-16-2022 15:23-0400 Respiratory rate 18 /min Rusty Townsend PROFESSOR OF INDUSTRIAL TECHNOLOGY.SLEEVE FIXER Work Phone: [facility] 07-16-2022 15:23-0400 SaO2% (BldA) [Mass fraction] 98 % Rusty Townsend PROFESSOR OF INDUSTRIAL TECHNOLOGY.SLEEVE FIXER Work Phone: [facility] 07-16-2022 15:23-0400 Systolic blood pressure 136 mm[Hg] Rusty Townsend PROFESSOR OF INDUSTRIAL TECHNOLOGY.SLEEVE FIXER Work Phone: [facility] 06-27-2022 16:42-0500 Body temperature 98.49 [degF] Sharon Evans PROFESSOR OF INDUSTRIAL TECHNOLOGY.SLEEVE FIXER Work Phone: [facility] 06-27-2022 16:42-0500 Body weight 83.28 kg Sharon Evans PROFESSOR OF INDUSTRIAL TECHNOLOGY.SLEEVE FIXER Work Phone: [facility] 06-27-2022 16:42-0500 Diastolic blood pressure 88 mm[Hg] Sharon Evans PROFESSOR OF INDUSTRIAL TECHNOLOGY.SLEEVE FIXER Work Phone: [facility] 06-27-2022 16:42-0500 Heart rate 87 /min Sharon Evans PROFESSOR OF INDUSTRIAL TECHNOLOGY.SLEEVE FIXER Work Phone: [facility] 06-27-2022 16:42-0500 Respiratory rate 18 /min Sharon Evans APRN.SLEEVE FIXER Work Phone: [facility] 06-27-2022 16:42-0500 SaO2% (BldA) [Mass fraction] 98 % Sharon Evans APRN.SLEEVE FIXER Work Phone: [facility] 06-27-2022 16:42-0500 Systolic blood pressure 132 mm[Hg] Sharon Evans APRN.SLEEVE FIXER Work Phone: [facility] 06-18-2022 17:34-0500 Body height 170.18 cm [facility] 06-18-2022 17:34-0500 Body mass index (BMI) [Ratio] 27.7 kg/m2 [facility] 06-18-2022 17:34-0500 Body temperature 98 [degF] [facility] 06-18-2022 17:34-0500 Body weight 80.3 kg [facility] 06-18-2022 17:34-0500 Diastolic blood pressure 79 mm[Hg] [facility] 06-18-2022 17:34-0500 Heart rate 119 /min [facility] 06-18-2022 17:34-0500 Respiratory rate 16 /min [facility] 06-18-2022 17:34-0500 SaO2% (BldA) [Mass fraction] 95 % [facility] 06-18-2022 17:34-0500 Systolic blood pressure 104 mm[Hg] [facility] 12-27-2021 17:38-0400 Diastolic blood pressure 78 mm[Hg] Dr. Laine Dye Work Phone: [facility] Work Phone: 12-27-2021 17:38-0400 Heart rate 66 /min Dr. Laine Dye Work Phone: [facility] Work Phone: 12-27-2021 17:38-0400 Respiratory rate 14 /min Dr. Laine Dye Work Phone: [facility] Work Phone: 12-27-2021 17:38-0400 SaO2% (BldA) [Mass fraction] 98 % Dr. Laine Dye Work Phone: [facility] Work Phone: 12-27-2021 17:38-0400 Systolic blood pressure 135 mm[Hg] Dr. Laine Dye Work Phone: [facility] Work Phone: 12-27-2021 15:05-0400 Body height 170.[address] Laine Dye Work Phone: [facility] Work Phone: 12-27-2021 15:05-0400 Body mass index (BMI) [Ratio] 28.1 kg/m2 Dr. Laine Dye Work Phone: [facility] Work Phone: 12-27-2021 15:05-0400 Body temperature 97.1 [degF] Dr. Laine Dye Work Phone: [facility] Work Phone: 12-27-2021 15:05-0400 Body weight 81.[address] Laine Dye Work Phone: [facility] Work Phone: 09-06-2021 09:17-0400 Diastolic blood pressure 71 mm[Hg] Dr. Laine Dye Work Phone: [facility] Work Phone: 09-06-2021 09:17-0400 Heart rate 88 /min Dr. Laine Dye Work Phone: [facility] Work Phone: 09-06-2021 09:17-0400 Respiratory rate 14 /min Dr. Laine Dye Work Phone: [facility] Work Phone: 09-06-2021 09:17-0400 SaO2% (BldA) [Mass fraction] 97 % Dr. Laine Dye Work Phone: [facility] Work Phone: 09-06-2021 09:17-0400 Systolic blood pressure 138 mm[Hg] Dr. Laine Dye Work Phone: [facility] Work Phone: 09-06-2021 07:08-0400 Body mass index (BMI) [Ratio] 29 kg/m2 Dr. Laine Dye Work Phone: [facility] Work Phone: 09-06-2021 07:08-0400 Body temperature 97.9 [degF] Dr. Laine Dye Work Phone: [facility] Work Phone: 09-06-2021 07:08-0400 Body weight 83.[address] Laine Dye Work Phone: [facility] Work Phone: 09-01-2021 23:15-0400 Diastolic blood pressure 80 mm[Hg] [facility] Work Phone: 09-01-2021 23:15-0400 Heart rate 87 /min [facility] Work Phone: 09-01-2021 23:15-0400 Respiratory rate 16 /min [facility] Work Phone: 09-01-2021 23:15-0400 SaO2% (BldA) [Mass fraction] 97 % [facility] Work Phone: 09-01-2021 23:15-0400 Systolic blood pressure 120 mm[Hg] [facility] Work Phone: 09-01-2021 20:58-0400 Body height 170.18 cm [facility] Work Phone: 09-01-2021 20:58-0400 Body mass index (BMI) [Ratio] 28.1 kg/m2 [facility] Work Phone: 09-01-2021 20:58-0400 Body temperature 97 [degF] [facility] Work Phone: 09-01-2021 20:58-0400 Body weight 81.64 kg [facility] Work Phone: 03-24-2021 22:03-0500 Body height 170.2 cm KACIE WELLS MD [facility] 03-24-2021 22:03-0500 Body temperature 98.24 [degF] KACIE WELLS MD [facility] 03-24-2021 22:03-0500 Body weight 86.4 kg KACIE WELLS MD [facility] 03-24-2021 22:03-0500 Diastolic blood pressure 82 mm[Hg] KACIE WELLS MD [facility] 03-24-2021 22:03-0500 Heart rate 99 /min KACIE WELLS MD [facility] 03-24-2021 22:03-0500 Respiratory rate 24 /min KACIE WELLS MD [facility] 03-24-2021 22:03-0500 Systolic blood pressure 146 mm[Hg] KACIE WELLS MD [facility] 03-22-2021 19:09-0500 Diastolic blood pressure 70 mm[Hg] ONEL CRAMER MD [facility] 03-22-2021 19:09-0500 Heart rate 95 /min ONEL CRAMER MD [facility] 03-22-2021 19:09-0500 Respiratory rate 16 /min ONEL CRAMER MD [facility] 03-22-2021 19:09-0500 Systolic blood pressure 108 mm[Hg] ONEL Lopez [facility] 03-22-2021 17:54-0500 Diastolic blood pressure 76 mm[Hg] ONEL CRAMER MD [facility] 03-22-2021 17:54-0500 Heart rate 88 /min ONEL CRAMER MD [facility] 03-22-2021 17:54-0500 Respiratory rate 16 /min ONEL CRAMER MD [facility] 03-22-2021 17:54-0500 Systolic blood pressure 128 mm[Hg] ONEL Lopez [facility] 03-22-2021 15:32-0500 Body height 170 cm ONEL CRAMER MD [facility] 03-22-2021 15:32-0500 Body temperature 98.6 [degF] ONEL CRAMER MD [facility] 03-22-2021 15:32-0500 Body weight 86.5 kg ONEL CRAMER MD [facility] 03-22-2021 15:32-0500 Diastolic blood pressure 79 mm[Hg] ONEL CRAMER MD [facility] 03-22-2021 15:32-0500 Heart rate 90 /min ONEL CRAMER MD [facility] 03-22-2021 15:32-0500 Respiratory rate 18 /min ONEL CRAMER MD [facility] 03-22-2021 15:32-0500 Systolic blood pressure 108 mm[Hg] ONEL Lopez [facility] 03-08-2021 20:18-0500 Body height 170.2 cm ZE WHITT DO [facility] 03-08-2021 20:18-0500 Body temperature 98.42 [degF] ZE WHITT DO [facility] 03-08-2021 20:18-0500 Body weight 89.5 kg ZE WHITT DO [facility] 03-08-2021 20:18-0500 Diastolic blood pressure 72 mm[Hg] ZE WHITT DO [facility] 03-08-2021 20:18-0500 Heart rate 108 /min ZE WHITT DO [facility] 03-08-2021 20:18-0500 Respiratory rate 22 /min ZE WHITT DO [facility] 03-08-2021 20:18-0500 Systolic blood pressure 142 mm[Hg] ZE Lopez O [facility] Encounters Encounter Date Encounter Type Care Provider Facility Start: 11-15-2024 End: 11-15-2024 Emergency department patient visit Dr. Laine Dye MD Work Phone: -Emergency Department Work Phone: Start: 11-14-2024 End: 11-14-2024 Emergency department patient visit Dr. Laine Dye MD Work Phone: -Emergency Department Work Phone: Start: 11-12-2024 End: 11-12-2024 Emergency department patient visit Dr. Laine Dye MD Work Phone: -Emergency Department Work Phone: Start: 11-09-2024 End: 11-09-2024 Patient encounter procedure Yoselyn GREEN -[facility] Work Phone: Start: 11-09-2024 End: 11-09-[address] Laine Dye MD Work Phone: -[facility] Start: 11-07-2024 End: 11-07-2024 Refill Laine Dye MD Work Phone: [facility] Comment on above: Moderate persistent asthma, unspecified whether complicated Start: 11-06-2024 End: 11-06-2024 ambulatory Candace Bourne RN NURSE [employer] Comment on above: Medication Question Start: 11-01-2024 End: 11-01-2024 Emergency department patient visit Dr. Laine Dye MD Work Phone: -Emergency Department Work Phone: Start: 10-21-2024 Non-patient / Non-visit Vishnu Andrade nd DO -[facility] Start: 10-21-2024 End: 10-21-2024 Admission to [...] Work Phone: Start: 08-22-2024 End: 08-22-2024 ambulatory Laine Dye Facility:[facility] Start: 08-18-2024 End: 08-18-2024 Patient encounter procedure Yoselyn GREEN -[facility] Work Phone: Start: 08-18-2024 End: 08-18-2024 ambulatory Laine Dye Facility:[facility] Start: 08-12-2024 End: 08-12-2024 Emergency department patient visit Dr. Laine Dye MD Work Phone: -Emergency Department Work Phone: Start: 08-12-2024 End: 08-12-2024 Telephone encounter Laine Dye MD Work Phone: [facility] Comment on above: Medication Problem Start: 08-04-2024 End: 08-04-2024 [facility]ill [facility] Start: 07-11-2024 End: 07-11-2024 Emergency department patient visit Dr. Laine Dye MD Work Phone: -Emergency Department Work Phone: Start: 07-04-2024 End: 07-04-2024 Refill Siri Gómez PROFESSOR OF INDUSTRIAL TECHNOLOGY - SLEEVE FIXER Work Phone: [facility] Comment on above: Tobacco use Start: 04-14-2024 End: 04-14-2024 ambulatory Jessica Mann RN [facility] Clinical Communication Start: 04-14-2024 End: 04-14-2024 Patient encounter procedure Jessica Mann RN [facility] Clinical Communication Start: 02-05-2024 End: 02-05-2024 Patient encounter procedure Enrique Garcia PROFESSOR OF INDUSTRIAL TECHNOLOGY.SLEEVE FIXER Work Phone: [facility] Comment on above: Procedure not hector d out (Primary Dx) Start: 02-05-2024 End: 02-05-2024 Emergency department patient visit L[facility] Facility:[facility] Start: 02-05-2024 End: 02-05-2024 ambulatory [facility] Facility:[facility] Start: 01-05-2024 End: 01-06-2024 Emergency department patient visit Sylvester Ramirez Work Phone: [facility] Work Phone: Start: 12-27-2023 Emergency department patient visit LAINE DYE Facility:[id number] Start: 12-27-2023 End: 12-27-2023 Admission to establishment [facility] Start: 12-27-2023 End: 12-27-2023 ambulatory [facility] Comment on above: Psychosis Start: 12-26-2023 End: 12-27-2023 Emergency department patient visit LAINE DYE Facility:[id number] Start: 11-30-2023 End: 11-30-2023 Emergency department patient visit Sylvester Ramirez Work Phone: [facility] Work Phone: Start: 09-14-2023 End: 09-15-2023 Emergency department patient visit LAINE DYE Facility:[id number] Start: 09-14-2023 Admission to establishment Genaro Harley LPCC Work Phone: [facility] Start: 09-14-2023 ambulatory Genaro Harley LP CC Work Phone: [facility] Comment on above: Psychiatric Problem Start: 09-01-2023 End: 09-01-2023 Emergency department patient visit MARLENA HOFFMAN Facility:[facility] Start: 08-31-2023 End: 09-01-2023 Emergency department patient visit Ze Palmer DO Work Phone: [facility] Comment on above: Nonintractable heada chantelle, unspecified chronicity pattern, unspecified headache type (Primary Dx); Pain of hand, unspecified laterality Start: 08-11-2023 End: 08-12-2023 ambulatory [facility] Start: 08-11-2023 End: 08-11-2023 Subsequent hospital visit by physician Gen Solo [facility] Comment on above: Arrived Start: 08-10-2023 End: 08-11-2023 Emergency department patient visit [facility] Start: 08-10-2023 End: 08-11-2023 Emergency department patient visit Wes Jackson DO Work Phone: [facility] Emergency Medicine Comment on above: Acute psychosis (Mul [place]) (Primary Dx); Alcohol intoxication with delirium ([facility]); Cannabis use disorder; Complicated laceration of hand, right, initial encounter Start: 07-02-2023 End: 07-02-2023 Emergency department patient visit [facility] Work Phone: Start: 05-28-2023 End: 05-28-2023 Emergency department patient visit [facility] Work Phone: Start: 01-04-2023 Emergency department patient visit LAINE DYE Facility:[facility] Start: 01-04-2023 End: 01-04-2023 Emergency department patient visit [facility] Work Phone: Start: 09-17-2022 End: 09-17-2022 [facility] Start: 09-03-2022 End: 09-03-2022 [facility] Start: 08-04-2022 Refill Laine Dye MD Work Phone: [facility] Clinical Communication Start: 07-16-2022 End: 07-16-2022 Patient encounter procedure Rusty Townsend PROFESSOR OF INDUSTRIAL TECHNOLOGY.SLEEVE FIXER Work Phone: [facility] Comment on above: Diarrhea, unspecifie d type (Primary Dx) Start: 06-27-2022 End: 06-27-2022 Patient encounter procedure Sharon Nathan GREEN.SLEEVE FIXER Work Phone: [facility] Comment on above: Throat pain (Primary Dx) Start: 06-18-2022 End: 06-18-2022 [facility] Start: 05-16-2022 Telephone encounter Laine Pratt MD Work Phone: [facility] Comment on above: Med Refill Start: 04-28-2022 Refill Laine Dye MD Work Phone: [facility] Start: 12-27-2021 End: 12-27-2021 Emergency department patient visit Dr. Laine Dye Work Phone: [facility]Emergency Department Start: 09-06-2021 End: 09-06-2021 Emergency department patient visit Dr. [facility]ye [facility] Start: 09-06-2021 Non-patient / Non-visit Dr. Ruano Work Phone: [facility] Start: 09-01-2021 End: 09-01-2021 Emergency department patient visit [facility] Start: 03-24-2021 End: 03-24-2021 Emergency department patient visit KACIE WELLS MD [facility] Start: 03-22-2021 End: 03-22-2021 Emergency department patient visit ONEL CRAMER MD [facility] Start: 03-08-2021 End: 03-08-2021 Emergency department patient visit ZE Moris WHITT DO [facility] Start: 01-30-2020 End: 01-30-2020 Subsequent hospital visit by physician Delores [facility] Work Phone: Radiology Comment on above: Epigastric pain [R10 .13] Start: 02-27-2017 End: 03-13-2017 Evaluation and management of inpatient [facility] Start: 02-27-2017 End: 02-27-2017 Emergency department patient visit [facility] Start: 01-06-2017 End: 01-06-2017 Emergency department patient visit [facility] Start: 12-27-2016 End: 12-27-2016 Emergency department patient visit [facility] Start: 11-30-2016 End: 11-30-2016 Emergency department patient visit [facility] Procedures Date Procedure Procedure Detail Performing [...] Work Phone: Start: 08-11-2023 ECG 12-LEAD WES TAMICARVADIM Start: 08-11-2023 Ecg routine ecg w/least 12 lds trcg only w/o i&r Wes J Csernyik DO Work Phone: Start: 08-11-2023 Ethanol [Mass/volume] in Serum or Plasma WES CSERNYIK Start: 08-11-2023 Ethanol [Mass/volume] in Serum or Plasma Wes J Csernyik DO Work Phone: Start: 08-11-2023 INITIATE REQUEST TO ANOTHER FACILITY WESDARSHANA DAVEYRVADIM Start: 08-11-2023 XR HAND RIGHT 3+ VIEWS [...] 08-10-2023 End: 08-10-2023 Comprehensive metabolic panel Lester cain PA-C Work Phone: Start: 08-10-2023 Ethanol [Mass/volume] in Serum or Plasma Wes J Csernyik DO Work Phone: Start: 08-10-2023 Salicylates [Mass/volume] [...] Radiologic exam abdomen 2 views Marshall ford APRN.SLEEVE FIXER, DNP Work Phone: SARS-CoV-2 & FLU Antigen (Rapid) Plan of Treatment Date Care Activity Detail Author Start: 2066 RSV Immunization for Adults (1 - 1-dose 75+ series) RSV Immunization for Adults (1 - 1-dose 75+ series) [facility] Start: 2051 RSV Immunization age d 60 or older (1 - 1-dose 60+ series) RSV Immunization aged 60 or older (1 - 1-dose 60+ series) [facility] Start: 2051 RSV patient s and/or patients aged 60+ years (1 - 1-dose 60+ series) RSV patients and/or patients aged 60+ years (1 - 1-dose 60+ series) [facility] Start: 2041 Zoster Vaccines (1 of 2) Zoste r Vaccines (1 of 2) [facility] Start: 09-17-2032 DTaP/Tdap/Td Vaccine s (11 - Td or Tdap) DTaP/Tdap/Td Vaccines (11 - Td or Tdap) [facility] Start: 09-17-2032 DTaP/Tdap/Td Vaccine s (9 - Td or Tdap) DTaP/Tdap/Td Vaccines (9 - Td or Tdap) [facility] Start: 09-17-2032 Urine microalbumin profile DTaP,Tdap,Td Vaccine (8 - Td or Tdap) [facility] Start: 01-25-2030 DTaP/Tdap/Td Vaccine s (7 - Td or Tdap) DTaP/Tdap/Td Vaccines (7 - Td or Tdap) [facility] Start: 01-25-2030 Urine microalbumin profile DTAP,TDAP,TD (7 - Td or Tdap) [facility] Start: 11-15-2027 Lipid panel Lipid Panel [facility] Start: 12-26-2024 Influenza vaccination [facility] Start: 11-15-2024 End: 11-15-2024 [facility] Start: 11-15-2024 Referral to service [facility] Start: 11-14-2024 [facility] Start: 11-12-2024 [facility] Start: 11-01-2024 [facility] Start: 10-21-2024 Egd transoral biopsy single/multiple EGD BIOPSY SINGLE/MULTIPLE [facility] Start: 10-21-2024 Endoscopy upper smal l intestine w/biopsy SMALL BOWEL ENDOSCOPY/BIOPSY [facility] Start: 10-21-2024 Patient discharge [facility] Start: 10-19-2024 [facility] Start: 08-22-2024 Ova and Parasites Ova and Parasites [facility] Start: 08-12-2024 [facility] Start: 08-12-2024 [facility] Start: 07-11-2024 [facility] Start: 04-19-2024 End: 04-19-2024 Patient encounter procedure 04/19/2024 8:15 AM EST Office Visit [facility] [address] [place] [address] Laine Dye MD [address], [place] [id number] [facility] Start: 12-27-2023 Covid-19 Vaccine ( season) Covid-19 Vaccine () [facility] Start: 12-27-2023 Covid-19 Vaccine ( season) Covid-19 Vaccine ( season) [facility] Start: 12-27-2023 Influenza vaccination U [facility] Start: 07-02-2023 [facility] Start: 05-28-2023 [facility] Start: 05-19-2023 Hepatitis C screening Hepatitis C Sc reening [facility] Comment on above: Postponed from 01/02 (Patient Refused) Start: 05-19-2023 HIV screening HIV Screening [facility] Comment on above: Postponed from 01/02 (Patient Refused) Start: 05-14-2023 Depression Monitoring Depression [facility] Start: 04-27-2023 Behavioral Health Screening Behavioral Health Screening [facility] Start: 12-26-2022 COVID-19 Vaccine ( season) COVID-19 Vaccine () [facility] Start: 12-26-2022 Influenza vaccination Influenz a Vaccine (Season Ended) [facility] Start: 09-03-2022 [facility] Start: 06-03-2022 End: 06-03-2022 Patient encounter procedure 06/03/2022 Office Visit [facility] [place] [place] [id number] [facility] Start: 05-14-2022 End: 05-14-2022 Patient encounter procedure 05/14/2022 Office Visit Family Medicine Laine Dye MD [facility] Hospital, [facility] [place] [address] [facility] Start: 04-27-2022 DEPRESSION ASSESSMENT DEPRESSION ASS ESSMENT [facility] Start: 12-26-2021 Influenza vaccination [facility] Start: 09-01-2021 Enteric precautions [facility] Work Phone: Start: 07-24-2021 COVID-19 Vaccine (3 - Booster for Pfizer series) COVID-19 Vaccine (3 - Booster for Pfizer series) [facility] Start: 07-24-2021 COVID-19 VACCINE (4 - Booster for Pfizer series) COVID-19 VACCINE (4 - Booster for Pfizer series) [facility] Start: 01-25-2021 Pneumococcal Vaccine : Pediatrics (0 to 5 Years) and At-Risk Patients (6 to 49 Years) (2 of 2 - PCV) Pneumococcal Vaccine: Pediatrics (0 to 5 Years) and At-Risk Patients (6 to 49 Years) (2 of 2 - PCV) [facility] Start: 01-25-2021 Pneumococcal Vaccine : Pediatrics (0 to 5 Years) and At-Risk Patients (6 to 64 Years) (2 of 2 - PCV) Pneumococcal Vaccine: Pediatrics (0 to 5 Years) and At-Risk Patients (6 to 64 Years) (2 of 2 - PCV) [facility] Start: 2010 Hepatitis A Vaccines (1 of 2 - Risk 2-dose series) Hepatitis A Vaccines (1 of 2 - Risk 2-dose series) [facility] Start: 2009 Anxiety Screening Anxiety Screening [facility] Start: 2009 Depression Screening Depression Scre ening [facility] Start: 2009 HEPATITIS C SCREENING [facility]PATITIS [facility] Start: 2009 Hepatitis C screening Hepatitis C [facility] Start: 2009 HIV SCREENING HIV SCREENING [facility] Start: 2009 HIV screening HIV Screening [facility] Start: 01-03-2004 Varicella vaccination Varicell a Vaccines (1 of 2 - 13+ 2-dose series) [facility] Start: 12-15-2003 Varicella vaccination Varicell a Vaccines (1 of 2 - 2-dose childhood series) [facility] Start: 1991 HEPATITIS B (1 of 3 - 3-dose series) HEPATITIS B (1 of 3 - 3-dose series) [facility] Start: 1991 HIV screening HIV Screening [facility] Start: 1991 Lipid panel Lipid Panel [facility] Start: 1991 Yearly Adult Physical Yearly Adult P hysical [facility] Capnography Capnography Respiratory Care STAT For RT frequency use only for continuous procedures with task-based reminders at 8a and 8p until discontinued starting 08/10/2023 [facility] Work Phone: Comment on above: For RT frequency use only for continuous procedures with task- based reminders at 8a and 8p until discontinued starting 08/10/2023 Electrocardiogram, 12-lead Electrocardiogram, 12-lead ECG STAT As needed until discontinued starting 08/10/2023 [facility] Work Phone: Comment on above: As needed until disc ontinued starting 08/10/2023 End: 08-10-2023 Extra Urine [facility] Extra Urine [facility] Lab Timed Once for 1 Occurrences starting 08/10/2023 until 08/10/2023 [facility] Work Phone: Comment on above: Once for 1 Occurrenc es starting 08/10/2023 until 08/10/2023 Ova OR parasites identification [facility] Patient Education [facility] Work Phone: Patient referral [facility] Work Phone: Radionuclide gastric emptying study [facility] End: 08-10-2023 Urinalysis complete W Reflex Culture panel - Urine [facility] Service [facility] Work Phone: Comment on above: Once (Lab) for 1 Occ urrences starting 08/10/2023 until 08/10/2023 Immunizations Immunization Date Immunization Notes Care Provider Daniel lizarraga 09-17-2022 tetanus toxoid, redu rosalina diphtheria toxoid, and acellular pertussis vaccine, adsorbed [facility] 05-29-2021 Covid-19, Pfizer Gra y Top, Do Not Dilute, (Age 12 Y+), Im, L Laine Dye MD Work Phone: [facility] 03-07-2021 influenza, injectabl e, quadrivalent, contains preservative Laine Dye MD Work Phone: [facility] 03-07-2021 influenza virus vacc ine, unspecified formulation Laine Dye MD Work Phone: [facility] 12-25-2020 Pfizer SARS-CoV-2 Vaccination Laine Dye MD Work Phone: [facility] 12-07-2020 Pfizer SARS-CoV-2 Vaccination Laine Dye MD Work Phone: [facility] 08-01-2020 influenza virus vacc ine, unspecified formulation Laine Dye MD Work Phone: [facility] 01-26-2020 influenza, injectabl e, quadrivalent, preservative free Laine Dye MD Work Phone: [facility] 01-26-2020 influenza, seasonal, injectable Laine Dye MD Work Phone: [facility] 01-26-2020 pneumococcal polysaccharide vaccine, 23 valent Laine Dye MD Work Phone: [facility] 01-26-2020 tetanus toxoid, redu rosalina diphtheria toxoid, and acellular pertussis vaccine, adsorbed Laine Dye MD Work Phone: [facility] 03-10-2017 influenza, injectabl e, quadrivalent, preservative free Laine Dye MD Work Phone: [facility] 08-19-2016 Human Papillomavirus 9-valent vaccine Laine Dye MD Work Phone: [facility] 04-02-2016 Human Papillomavirus 9-valent vaccine Laine Dye MD Work Phone: [facility] 04-02-2016 tetanus toxoid, redu rosalina diphtheria toxoid, and acellular pertussis vaccine, adsorbed Laine Dye MD Work Phone: [facility] 02-08-2016 influenza, injectabl e, quadrivalent, contains preservative Laine Dye MD Work Phone: [facility] 02-08-2016 influenza, seasonal, injectable Laine Dye MD Work Phone: [facility] 01-18-2016 Human Papillomavirus 9-valent vaccine Laine Dye MD Work Phone: [facility] 03-06-2015 influenza virus vacc ine, unspecified formulation Laine Dye MD Work Phone: [facility] 05-07-2011 TD(adult) unspecifie d formulation Laine Dye MD Work Phone: [facility] 05-07-2011 tetanus and diphther ia toxoids, adsorbed, preservative free, for adult use (2 Lf of tetanus toxoid and 2 Lf of diphtheria toxoid) Laine Dye MD Work Phone: [facility] 05-07-2011 tetanus and diphther ia toxoids, not adsorbed, for adult use Laine Dye MD Work Phone: [facility] 05-07-2011 tetanus toxoid, redu rosalina diphtheria toxoid, and acellular pertussis vaccine, adsorbed Laine Dye MD Work Phone: [facility] 11-17-2003 measles, mumps and rubella virus vaccine Laine Dye MD Work Phone: [facility] 11-19-1999 hepatitis B vaccine, adult dosage Laine Dye MD Work Phone: [facility] 11-19-1999 hepatitis B vaccine, unspecified formulation Laine Dye MD Work Phone: [facility] 06-13-1999 hepatitis B vaccine, adult dosage Laine Dye MD Work Phone: [facility] 06-13-1999 hepatitis B vaccine, unspecified formulation Laine Dye MD Work Phone: [facility] 05-06-1999 hepatitis B vaccine, adult dosage Laine Dye MD Work Phone: [facility] 05-06-1999 hepatitis B vaccine, unspecified formulation Laine Dye MD Work Phone: [facility] 12-05-1996 diphtheria, tetanus toxoids and acellular pertussis vaccine Laine Dye MD Work Phone: [facility] 12-05-1996 diphtheria, tetanus toxoids and acellular pertussis vaccine, unspecified formulation Laine Dye MD Work Phone: [facility] 07-19-1992 diphtheria, tetanus toxoids and acellular pertussis vaccine Laine Dye MD Work Phone: [facility] 07-19-1992 diphtheria, tetanus toxoids and acellular pertussis vaccine, unspecified formulation Laine Dye MD Work Phone: [facility] 04-17-1992 haemophilus influenz ae type b vaccine, conjugate unspecified formulation Laine Dye MD Work Phone: [facility] 04-17-1992 haemophilus influenz ae type b vaccine, PRP-OMP conjugate Laine Dye MD Work Phone: [facility] 04-17-1992 measles, mumps and rubella virus vaccine Laine Dye MD Work Phone: [facility] 04-17-1992 poliovirus vaccine, inactivated aLine Dye MD Work Phone: [facility] 1991 diphtheria, tetanus toxoids and acellular pertussis vaccine Laine Dye MD Work Phone: [facility] 1991 diphtheria, tetanus toxoids and acellular pertussis vaccine, unspecified formulation Laine Dye MD Work Phone: [facility] 1991 haemophilus influenz ae type b vaccine, conjugate unspecified formulation Laine Dye MD Work Phone: [facility] 1991 haemophilus influenz ae type b vaccine, PRP-OMP conjugate Laine Dye MD Work Phone: [facility] 1991 poliovirus vaccine, inactivated Laine Dye MD Work Phone: [facility] 1991 diphtheria, tetanus toxoids and acellular pertussis vaccine Laine Dye MD Work Phone: [facility] 1991 diphtheria, tetanus toxoids and acellular pertussis vaccine, unspecified formulation Laine Dye MD Work Phone: [facility] 1991 haemophilus influenz ae type b vaccine, conjugate unspecified formulation Laine Dye MD Work Phone: [facility] 1991 haemophilus influenz ae type b vaccine, PRP-OMP conjugate Laine Dye MD Work Phone: [facility] 1991 poliovirus vaccine, inactivated Laine Dye MD Work Phone: [facility] 1991 haemophilus influenz ae type b vaccine, conjugate unspecified formulation Laine Dye MD Work Phone: [facility] 1991 haemophilus influenz ae type b vaccine, PRP-OMP conjugate Laine Dye MD Work Phone: [facility] 1991 poliovirus vaccine, inactivated Laine Dye MD Work Phone: [facility] Payers Date Payer Category Payer Self-pay [id number] 2022 Medicaid HMO [employer] MEDICA[employer] [id number] 2022 Medicaid [id number] 2018 Medicaid [id number] 1991 Unknown [id number] 1991 Unknown [id number] Unknown [id number] Unknown [id number] Unknown [id number] Unknown [id number] Unknown [id number] Unknown [id number] Unknown [id number] Unknown [id number] Unknown [id number] Unknown [id number] Unknown [id number] Unknown [id number] Unknown [id number] Unknown [id number] Unknown [id number] Unknown [id number] Unknown [id number] Social History Date Type Detail Facility Start: 04-25-2019 Light tobacco smoker (finding) [facility] Start: 1990 Sex Assigned At Male [facility] Start: 09-01-2021 End: 01-05-2024 Tobacco smoking status NHIS Unknown if ever smoked [facility] Start: 03-13-2020 Occasional [facility] Start: 03-13-2020 - [facility] Start: 03-13-2020 Alone [facility] Start: 11-07-2019 Chew [facility] Start: 07-15-2017 End: 06-27-2022 Tobacco smoking status NHIS Ex-smoker [facility] End: 03-18-2017 History of tobacco use Current smoker [facility] Start: 08-25-2022 End: 03-18-2017 History of tobacco use Cigarette Smoker [facility] Start: 06-27-2022 End: 11-11-2022 Cigarettes smoked current (pack per day) - Reported 1 [facility] Start: 07-15-2017 End: 06-27-2022 Tobacco use and exposure Smokeless tobacco non-user [facility] Start: 06-27-2022 End: 08-31-2023 Alcohol intake Current non-drinker of alcohol (finding) [facility] Start: 04-01-2017 Alcohol Comment previous alcohol problem [facility] Start: 1990 Sex Assigned At Not on file [facility] Start: 05-19-2022 History SDOH Financial 2 [facility] Start: 05-19-2022 History SDOH Food Worry 1 [facility] Start: 11-11-2022 End: 08-31-2023 Gender identity Not on file [facility] Work Phone: Start: 12-31-2019 End: 08-10-2023 Exposure to SARS-CoV-2 (event) Not sure [facility] Start: 11-11-2022 End: 11-15-2024 Tobacco smoking status NHIS Smokes tobacco daily [facility] Start: 11-11-2022 Tobacco use and exposure Former smokeless tobacco user [facility] How hard is it for y ou to pay for the very basics like food, housing, medical care, and heating Hard [facility] (I/We) worried wheth er (my/our) food would run out before (I/we) got money to buy more. Never true [facility] In the past 12 month s, has lack of transportation kept you from medical appointments or from getting medications? No [facility] Start: 01-05-2024 [facility] Start: 11-25-2021 End: 08-12-2024 Sex Male (finding) [facility] Goals Date Patient Goal Desired Activity /State Functional Status Date Assessment Result Facility 03-13-2017 Are you deaf, or do you have serious difficulty hearing No 03/13/2017 9:49 AM Regina Mark, MAXIMILIAN [facility] 03-13-2017 Are you blind, or do you have serious difficulty seeing, even when wearing glasses No 03/13/2017 9:49 AM Regina Mark, MAXIMILIAN [facility] 03-13-2017 Do you have serious difficulty walking or climbing stairs No 03/13/2017 9:49 AM Regina Mark, MAXIMILIAN [facility] 03-13-2017 Do you have difficul ty dressing or bathing No 03/13/2017 9:49 AM Regina Mark, MAXIMILIAN [facility] 03-13-2017 Because of a physica l, mental, or emotional condition, do you have difficulty doing errands alone such as visiting a physician's office or shopping No 03/13/2017 9:49 AM Regina Mark RN [facility] Mental Status Date Assessment Result Facility 11-14-2024 Cognitive function Level Of Cons ciousness Awake;Alert;Appropriate;Fol lows Commands [facility] Work Phone: 11-01-2024 Cognitive function Level Of Cons ciousness Awake;Alert;Follows Commands;Restless [facility] Work Phone: 10-21-2024 Cognitive function Voice/Name [facility] Work Phone: 01-05-2024 Cognitive function Patient Orien tation Person;Place;Time;Location/ Situation [facility] Work Phone: 11-30-2023 Cognitive function Patient Orien tation Person;Place;Location/Situa tion [facility] Work Phone: 05-28-2023 Cognitive function Level Of Cons ciousness Awake;Alert;Appropriate;Fol lows Commands [facility] Work Phone: 09-03-2022 Cognitive function Voice/Name [facility] Work Phone: 12-27-2021 Cognitive function Level Of Cons ciousness Awake;Alert;Appropriate;Fol lows Commands [facility] Work Phone: 03-13-2017 Because of a physica l, mental, or emotional condition, do you have serious difficulty concentrating, remembering, or making decisions No 03/13/2017 9:49 AM Regina Mark RN No [facility] Clinical Notes 01-30-2020 to 11-15-2024 Note Date & Type Note Facility 11-15-2024 Discharge summary [facility] 11-15-2024 Discharge summary Note Date/Time November 15, 2024 4:16pm [facility] Medical Records Department [address] [place] [address] Emergency Department Summary 11/15/24 MR#: [id number] Acct: [id number] Name: MATTY WHITLOCK Rep #:[id number] : 1990 34 From: Evin Meraz MD PCP: Dr. Laine Dye MD Status:REG ER Location: ED HPI History of Present Illness Chief Complaint: Anxiety Detail of Chief Complaint: Anxiety and epigastric pain Narrative Narrative: Patient had EGD performed by Dr. Herndon. Patient was noted to have a LA grade a(1 or more mucosal breaks less than 5 mm, not extending between tops of 2 mucosal folds) esophagitis with no bleeding found at 37 to 40 cm from the incisors. Biopsies were taken. Furthermore, abnormal motility was noted in theesophagus. The cricopharyngeus was abnormal as well. Extra peristaltic waves in the esophageal body was noted. The distal esophagus/lower esophageal sphincter was noted to be spasm myotic. There was a suspicion for gastroparesisas well. There was also a nonbleeding linear gastric ulcer with pigmented material found in the gastric antrum. The lesion was 8 mm in the largest dimension. Biopsy was taken. There was also evidence of patchy mildly erythematous mucosa without active bleeding found in the entire duodenum. This was performed October 21. Patient was on Nexium and Carafate was added. Patient presents from work because of pain that he states is unbearable. And heis also anxious about his health and embarrassed that he had to leave work. Patient does have an anxiety disorder. Patient is seen through the crisis center. He states he is compliant with his medication. He was given an injection of medicine yesterday. He was told that it would take 412 hours for the medicine to take effect. Patient denies fever, chills or night sweats. Patient denies chest pressure, tightness or heaviness. Patient denies shortness of breath. Patient denies discomfort in his extremities, neck or back. Patient denies black or maroon-colored stool. Patient denies vomiting. Prior similar symptoms: Yes Recent Illness/Hospitalization: Yes [facility] Medical History Dietary restriction Esophageal [...] 1 mg PO QHS 07/11/24 5 History albuterol sulfate 90 mcg/actuation 2 inh inhalation [...] Q30D Unknown History intramuscular syringe (Invega Sustenna) dicyclomine 20 mg tablet 20 mg PO BID PRN abdominal p ain 11/04/24 Unknown Rx #30 tabs esomeprazole magnesium 40 mg 40 mg PO BID #60 caps 03/21 Unknown Rx capsule,delayed release sucralfate 100 mg/mL oral 10 ml PO BID #300 mL 5 Unknown Rx suspension (Carafate) Allergy/AdvReac Type Severity Reaction Status Date / Time ondansetron (From Zofran) AdvReac Other Verified 11/15/24 12:33 Surgical History History of surgery on lower extremity History of esophagogastroduodenoscopy (EGD) Social History Smoking Status: Current every day smoker tobacco type: cigarettes alcohol intake: former substance use type: does not use and other details: Former use of Marijuana ROS ROS ED Constitutional Constitutional ED: Denies chills, fever(s), subjective, sweats or weight loss Cardiovascular Cardiovascular: Denies chest pain, orthopnea, palpitations, paroxysmal nocturnaldyspnea or racing heartbeat Respiratory/Chest Respiratory/Chest: Denies cough, dyspnea, dyspnea on exertion, orthopnea or paroxysmal nocturnal dyspnea Gastrointestinal Gastrointestinal: Reports abdominal pain and nausea; Denies constipation, diarrhea, melena or vomiting Genitourinary Genitourinary ED: Denies dysuria, hematuria or urinary frequency Musculoskeletal Musculoskeletal: Denies arthralgias, back pain or myalgias Integumentary Denies rash Psychiatric Psychiatric: Reports anxiety; Denies suicidal ideation or suicidal thoughts Hematologic/Lymphatic Hematologic/Lymphatic: Reports systems reviewed and no addt'l complaints, exceptas documented EXAM Physical Exam Const Vital Signs: 11/15/24 12:31 11/15/24 13:31 11/15/24 14:00 Temperature 97.6 F L Temperature Source Oral Pulse Rate 84 88 Respiratory Rate 16 Blood Pressure 135/90 H 108/65 108/65 Blood Pressure Mean 105 79 79 Pulse Ox 99 Oxygen Delivery Method Room Air Positive well nourished and well developed Constitutional Narrative: Patient was talking to his father when I entered the room. He was crying with tears rolling down his cheeks. He then began to sob when he disconnected his call to speak with me. Patient is on his right side in a semifetal position. General Appearance ED: well developed; Negative for pallor HEENT Reports moist mucous membranes HEENT Narrative: Head is atraumatic and normocephalic. Ears are normal Eyes PERRL and EOMs intact bilaterally General Eye ED: Negative for pale conjunctiva or scleral icterus Neck no lymphadenopathy, supple and no JVD Chest Wall inspection of chest normal and palpation of chest normal Resp normal respiratory effort and clear to auscultation bilaterally Cardio regular rate, regular rhythm, S1 normal heart sound, S2 normal heart sound and no murmurs GI normal to inspection, nondistended, normoactive bowel sounds, non-distended and no masses; Negative for non-tender or hepatosplenomegaly Palpation: tender epigastric Back/Spine no CVA tenderness Extremity normal to inspection General Extremety ED: Negative for edema or tenderness General Extremity: Negative for edema Neuro oriented x3 and CN's II-XII intact bilaterally Sensorium / Orientation: alert Psych Mood & Affect: depressed, anxious and tearful Skin no rashes or lesions noted, no wounds and skin turgor normal General Skin Exam: Negative for jaundice or pallor MDM MDM MDM Narrative Medical decision making narrative: In light of his recent EGD his complaints he received 0.5 mg of Ativan IV push and GI cocktail and IV Pepcid. His abdominal discomfort improved. He states his anxiety has not. Case management was consulted and states he has multiple visits for similar presentation. 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 Arrangements made for intensive outpatient therapy.) Treatment and Re-Evaluation :: Patient is here additional dose of Ativan. Pearl from case management saw patient. He is aware that he needs to attend the outpatient intensive psycho therapy. If he is noncompliant he will be pink slipped. He is understands this. Discharge Plan Triage Chief Complaint: Anxiety ED Provider: Evin Meraz Dx/Rx/DC Orders Clinical Impression: Anxiety reaction, History of bipolar disorder, Schizoaffective disorder, bipolar type, Peptic ulcer disease Instructions: ED Anxiety Reaction Prescriptions: No Action sucralfate [Carafate] 100 mg/mL suspension 10 ml PO BID Qty: 300 3RF prazosin 1 mg capsule 1 mg PO [...] 1 mg tablet 1 mg PO DAILY dicyclomine 20 mg tablet 20 mg PO BID PRN (Reason: abdominal pain) Qty: 30 0RF esomeprazole magnesium 40 mg capsule,delayed release(DR/EC) 40 mg PO BID Qty: 60 3RF Primary Care Provider: Laine Dye Referrals: Laine Dye MD [Primary Care Provider] - As Needed Activity Restrictions/Additional Instructions: You must attend the outpatient intensive psychotherapy program that starts tomorrow. Otherwise you will be pink slipped. Print Language: Kenyan Disposition Disposition: Home, Self Care What to do if you have Problems For any increased pain, shortness of breath, bleeding, nausea or vomiting, chestpain, or any unexpected problems, contact your Primary Care Provider. Call [facility] ([phone]) or report to the closest Emergency Room. Call 911 if necessary. 11/15/24 1616 <Electronically signed by Evin Meraz MD> Cosigner Signature (if applicable): CC: Dr. Laine Dye MD ~ Signed [facility] Work Phone: 1(682) 793-903707-21-2025 Discharge summary [facility] Medical Records Department [address] [place] [address] Emergency Department Summary 11/14/24 MR#: [id number] Acct: [id number] Name: MATTY WHITLOCK Rep #:[id number] : 1990 34 From: Hieu Man MD PCP: Dr. Laine Dye MD Status:PRE ER Location: ED HPI HPI - Psych History of Present Illness Chief Complaint: Anxiety Informant: patient and EMS Narrative Narrative: 34-year-old male presents via EMS for anxiety about his esophagitis and gastric ulcer discomfort that he has had for over a month, he has been on treatment for it since it was diagnosed by EGD about 2 weeks ago including Nexium and Carafate, he states the pain has been flaring up at times, tonight he took famotidine for it and his discomfort is basically gone and he is asking for something for anxiety. He states Ativan helps when he is given that. [facility] Medical History Dietary restriction Esophageal [...] 1 mg PO QHS 07/11/24 5 History albuterol sulfate 90 mcg/actuation 2 inh inhalation [...] Q30D Unknown History intramuscular syringe (Invega Sustenna) dicyclomine 20 mg tablet 20 mg PO BID PRN abdominal p ain 11/04/24 Unknown Rx #30 tabs esomeprazole magnesium 40 mg 40 mg PO BID #60 caps 03/21 Unknown Rx capsule,delayed release sucralfate 100 mg/mL oral 10 ml PO BID #300 mL 5 Unknown Rx suspension (Carafate) Allergy/AdvReac Type Severity Reaction Status Date / Time ondansetron (From Zofran) AdvReac Other Verified 11/14/24 06:22 Surgical History History of surgery on lower [...] Respiratory/Chest: Denies cough or dyspnea Gastrointestinal Gastrointestinal: Reports abdominal pain; Denies diarrhea, nausea or vomiting Genitourinary Genitourinary ED: Denies dysuria or hematuria Musculoskeletal Musculoskeletal: Denies back pain or neck pain Integumentary Denies abscess or rash Neurologic Neurologic: Denies headache(s), paresthesias or weakness Psychiatric Psychiatric: Reports anxiety; Denies suicidal thoughts EXAM Physical Exam Const Vital Signs: 11/14/24 06:23 11/14/24 06:34 Temperature 98.5 F Temperature Source Oral Pulse Rate 83 Respiratory Rate 18 Respiratory Effort Normal Non-Labored Respiratory Pattern Normal Blood Pressure 119/74 Blood Pressure Mean 89 Pulse Ox 99 Oxygen Delivery Method Room Air Positive well nourished and well developed General Appearance ED: well developed and NAD Eyes PERRL and EOMs intact bilaterally Neck full ROM and supple Resp normal respiratory effort GI non-distended Extremity normal to inspection General Extremety ED: Negative for edema General Extremity: Negative for edema Neuro oriented x3, CN's II-XII intact bilaterally and no sensory deficits noted Sensorium / Orientation: awake and alert Motor Exam: strength 5/5 throughout Psych Appearance: grossly normal Activity / Motor Behavior: appropriate eye contact and psychomotor agitation Thought Content: normal thought content Attention / Concentration: attention grossly intact Memory / Cognition: memory grossly intact Skin no wounds Rashes: no rashes MDM MDM MDM Narrative Medical decision making narrative: I reviewed this patient's chart briefly, she was seen here 1 week ago for the exact same thing and given Ativan. He is asking for Ativan now. He missed an Invega injection, he has not yet received that and is supposed to hopefully get it today. His vital signs are normal he is not tachycardic, he has a history ofschizoaffective disorder bipolar 1 disorder, anxiety, depression. Giving him 3 tablets of hydroxyzine, advising him that I am not giving him any controlled substances for this, and he should follow-up and get his Invega injection as soon as possible, and I also reassured him about thepathology that was seen on the EGD, that these are frequently easily treated by medications and time to heal. I offered him something for his abdominal discomfort but he declined it because he took afamotidine and states it is better. He was extremely tremulous and shaky in the bed but he was ableto get up and walk back and forthto the bathroom without any apparent discomfort or limitation, stable for discharge and follow-up. History & Record Review Additional record(s) reviewed:: Prior outpatient record (EGD 3 weeks ago showingnonbleeding gastriculcer and some mild esophagitis) and Prior ED visit Discharge Plan Triage Chief Complaint: Anxiety ED Provider: Hieu Man Dx/Rx/DC Orders Clinical Impression: Anxiety about health, Gastro-esophageal reflux disease with esophagitis, without bleeding, Gastric ulcer, Intermittent upper abdominal pain Instructions: ED Anxiety Reaction Prescriptions: No Action sucralfate [Carafate] 100 mg/mL suspension 10 ml PO BID Qty: 300 3RF prazosin 1 mg capsule 1 mg PO [...] 1 mg tablet 1 mg PO DAILY dicyclomine 20 mg tablet 20 mg PO BID PRN (Reason: abdominal pain) Qty: 30 0RF esomeprazole magnesium 40 mg capsule,delayed release(DR/EC) 40 mg PO BID Qty: 60 3RF Primary Care Provider: Laine Dye Referrals: [facility]ing[facility] [Group of Physicians] - (today for Invega injection as able) Laine Dye MD [Primary Care Provider] - Print Language: Kenyan Disposition Disposition: Home, Self Care What to do if you have Problems For any increased pain, shortness of breath, bleeding, nausea or vomiting, chestpain, or any unexpected problems, contact your Primary Care Provider. Call [facility] ([phone]) or report tothe closest Emergency Room. Call 911 if necessary. 11/14/24 0604 Cosigner Signature (if applicable): CC: Dr. Laine Dye MD ~ Signed [facility]07-14-2025 Telephone encounter Note* Telephone Encounter - NORMA Lundberg CNP - 11/07/2024 11:11 AM EDT Reviewed chart. Refill appropriate. RX sent. [id number] Miscellaneous Notes* Telephone Encounter - NORMA Lundberg CNP - 11/07/2024 11:11 AM EDT Reviewed chart. Refill appropriate. RX sent. * Telephone Encounter - Vicky Mariscal - 11/07/2024 9:16 AM EDT Pended prior rx of albuterol inh. * Telephone Encounter - Meliza Garcia - 11/07/2024 9:00 AM EDT Pt stated he was in the ER [...] up the medication: No documented in this encounterSPaulding [facility] [id number] Telephone encounter Note* Telephone Encounter - Vicky Mariscal - 11/07/2024 9:16 AM EDT Pended prior rx of albuterol inh. [id number] Telephone encounter Note* Telephone Encounter - Meliza Vang - 11/07/2024 9:00 AM EDT Pt stated he was in the ER [...] prior to picking up the medication: No [facility] [id number] Telephone encounter Note* Telephone Encounter - Candace Bourne RN - 11/06/2024 9:44 AM EDT Patient was seen at outside hospital ED. Patient requesting refills on medications ordered. No PCP at [facility]. Transferred patient to [facility] for further assistance. [facility]07-13-2025 Miscellaneous Notes* Telephone Encounter - Candace Bourne RN - 11/06/2024 9:44 AM EDT Patient was seen at outside hospital ED. Patient requesting refills on medications ordered. No PCP at [facility]. Transferred patient to [facility] for further assistance. [facility] Discharge summary [facility] Medical Records Department [address] [place] [address] Emergency Department Summary 11/01/24 MR#: [id number] Acct: [id number] Name: MATTY WHITLOCK Rep #:[id number] : 1990 34 From: Aidan luna DO PCP: Dr. Laine Dye MD Status:REG ER Location: ED HPI History of Present Illness Chief Complaint: Other, Pain/Inj Narrative Narrative: Chief complaint and HPI: Epigastric abdominal pain. 34-year-old male with past medical history of chronic epigastric pain, bloating, anxiety presents for evaluation of epigastric abdominal pain. [facility]. He recently had an [...] grossly intact, sensation intact Psych: Cooperative, anxious [facility] Medical History Dietary restriction Esophageal tear Smoker [...] and unableto find the pathology of the s roge. Differential diagnosis includes but is not limited to GERD, PUD, pancreatitis, suspect less likely perforation of ulcer, anxiety reaction. Pepcid, Ativan, morphine ordered for symptoms. Laboratory workup ordered including chest x-ray and CT abdomen pelvis. CBC shows mild leukocytosis of 13 .6. No anemia. Platelets unremarkable. CMP unremarkable except for hyponatremia at 127. Patient's baseline is about 133. He states he has been eating and drinking well. Lipase unremarkable. Chest x-ray is personally reviewed interpreted by me, ED physician, no pneumonia, effusion, pneumothorax, card iomegaly, free air. CT abdomen pelvis shows no [...] this is acute I think he would benefitfrom admission. I spoke to the hospitalist service, Dr. Meade. He recommends just giving IV fluids and repeating BMP. If normal stable to discharge home. RepeatBMP shows normal sodium at 133. Patientstable to discharge home. Follow-up with Dr. Herndon [...] % (Auto) 69.0 Lymph % (Auto) 22.2 [place] % (Auto) 6.0 Eos % (Auto) 1.6 [...] acute diverticulitis. No bowel obstruction. Reading Location: [facility] Chest X-Ray 11/01/24 15:50 IMPRESSION: No evidence of pneumoperitoneum. No pleural effusion or pneumothorax is seen. Lungs appear clear throughout. The cardiomediastinal silhouette is within the normal range. 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 Reading Location: [address] Discharge Plan Triage Chief Complaint: Other, [...] were prescribed by Dr. Herndon. Print Language: Kenyan Disposition Disposition: Home, Self Care What to do if you have Problems For any increased pain, shortness of breath, bleeding, nausea or vomiting, chestpain, or any unexpected problems, contact your Primary Care Provider. Call [facility] ([phone]) or report tothe closest Emergency Room. Call 911 if necessary. 11/01/241947 Cosigner Signature (if applicable): CC: Dr. Laine Dye MD ~ Signed [facility]07-08-2025 Radiology Diagnostic study note [facility] Imaging Services [address] [place] [address] [id number] Abdomen/Pelvis W IV Cont ONLY MR#: [id number] Acct: [id number] Name: MATTY WHITLOCK Rep #: [id number] : 1990 M 34 From: Helen Isbell MD PCP: Dr. Laine Dye MD Status: REG ER Study:Abdomen/Pelvis W IV Cont ONLY Date of E xam: 11/01/24 Exam# [id number] Ordering Dr: Aidan Craig DO PROCEDURE: ABDOMEN/PELVIS [...] acute diverticulitis. No bowel obstruction. Reading Location: [id number] CC: Dr. Aidan Hickey DO; Dr. Laine Dye MD ~ Shine Worker: Signed [facility]07-08-2025 Radiology Diagnostic study note [facility] Imaging Services [address] [place] [address] [id number] Chest 1 View (Portable) MR#: [id number] Acct: [id number] Name: MATTY WHITLOCK Rep #: [id number] : 1990 M 34 From: Mitul Cantu MD PCP: Dr. Laine Dye MD Status: REG ER Study:Chest 1 View (Portable) Date of Exam: 11/01/24 Exam# [id number] Ordering Dr: Aidan Craig DO PROCEDURE: CHEST [...] space, indicative coracoclavicular ligament disruption. Reading Location: [id number] CC: Dr. Aidan Hickey DO; Dr. Laine Dye MD ~ Shine Worker: Signed [facility]07-08-2025 Discharge summary Author Aidan Hickey [facility] Note Date/Time November 01, 2024 7:48p m [facility] Medical Records Department [address] [place] [address] Emergency Department Summary 11/01/24 MR#: [id number] Acct: [id number] Name: MATTY WHITLOCK Rep #:[id number] : 1990 34 From: Aidan luna DO PCP: Dr. Laine Dye MD Status:REG [...] grossly intact, sensation intact Psych: Cooperative, anxious [facility] Medical History Dietary restriction Esophageal [...] % (Auto) 69.0 Lymph % (Auto) 22.2 [place] % (Auto) 6.0 Eos % (Auto) 1.6 [...] acute diverticulitis. No bowel obstruction. Reading Location: [facility] Chest X-Ray 11/01/24 15:50 IMPRESSION: No evidence of pneumoperitoneum. No pleural effusion or pneumothorax is seen. Lungs appear clear throughout. The cardiomediastinal silhouette is within the normal range. 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 Reading Location: [id number] Discharge Plan Triage Chief Complaint: Other, Pain/Inj [...] MD [Primary Care Provider] - 3-5 Days FriendVishnu DO [Med Staff - Active Staff] - 3-5 Days Activity Restrictions/Additional Instructions: Your sodium was low here in the emergency department however it improved with fluids. You need to follow-up with your primary care for this. You need to follow-up with GI for your chronic epigastric abdominal pain. Continue to take the medicines that were prescribed by Dr. Herndon. Print Language: Kenyan Disposition Disposition: Home, Self Care What to do if you have Problems For any increased pain, shortness of breath, bleeding, nausea or vomiting, chestpain, or any unexpected problems, contact your Primary Care Provider. Call [facility] ([phone]) or report to the closest Emergency Room. Call 911 if necessary. 11/01/241947 <Electronically signed by Aidan Hickey DO> Cosigner Signature (if applicable): CC: Dr. Laine Dye MD ~ Signed [facility] Work Phone: 1(744) 263-632906-27-2025 Consult note [facility] Medical Records Department [address] [place] [address] Anesthesia Postop Eval II 10/21/24 1311 MR#: [id number] Acct: [id number] Name: MATTY WHITLOCK Rep #:[id number] : 1990 34 From: Myla Upton FILTER PRESS TENDER PCP: Dr. Laine Dye MD Status:REG [facility] Y Race: C Location: [place] [address] Anesthesia Postop Eval I Sum Postop Eval Completion status Anesthesia document: Postop Eval 1 completed: Yes Anesthesia Postop Eval I Summary Anesthesia Postop Eval I Summary: Anesthesia Postop Eval I: Assessment Summary Airway patent Yes 10/21/24 12:36 FILTER PRESS TENDER.CSIR Spontaneous unlabored Yes 10/21/24 12:36 FILTER PRESS TENDER.CSIR respirations Mental status nausea No 10/21/24 12:36 FILTER PRESS TENDER.CSIR Vomiting No 10/21/24 12:36 FILTER PRESS TENDER.CSIR Anesthesia Postop Eval I: Fluid Summary Crystalloid volume administer 500 10/21/24 12:36 FILTER PRESS TENDER.CSIR (ml) Colloids volume administered ( ml) Blood Product volume administered (ml) Total IV fluid infused 500 10/21/24 12:36 FILTER PRESS TENDER.CSIR Anesthesia Postop Eval I: Summary Notes Anesthesia Complication No 10/21/24 12:36 FILTER PRESS TENDER.CSIR Anesthesia Complication Comment: Post-operative progress note Anesthesia: Postop Eval II Evaluation Mental status: Awake Pain Level: 0 nausea: No Vomiting: No 10/21/24 1311 a FILTER PRESS TENDER> Date _ Myla Upton FILTER PRESS TENDER Cosigner Signature: Date CC: ~ Signed [facility]06-27-2025 History and physical note Author Vishnu Friend [facility] Note Date/Time October 21, 2024 11:1 6am [facility] Medical Records Department [address] [place] [address] History & Physical Exam 10/21/24 1113 MR#: [id number] Acct: [id number] Name: MATTY WHITLOCK Rep #:[id number] : 1990 34 From: Vishnu Herndon DO PCP: Dr. Laine Dye MD Status:[facility] Location: [place] [address] HPI - General General Date of Admission: [...] - Erythematous duodenopathy. Biopsied. GES; not completed [facility] ED 3 with abd pain and anxiety. [...] the epigastric pain started. He says its "all day" but less than 5x perday. It is soft and liquid. He did notice some bright red blood a few days ago but this went away. [facility] Medical History (Updated 10/20/24 @ 10:04 by [...] Laine Dye MD; Vishnu Herndon DO~ Signed [facility] Work Phone: 1(183) 487-283906-27-2025 Procedure note [facility] Medical Records Department [address] [place] [address] EGD Report MR#: [id number] Acct: [id number] Name: MATTY WHITLOCK Rep #:[id number] : 1990 34 From: Vishnu Herndon DO PCP: Dr. Laine Dye MD Status:[facility] Patient Name: Matty Whitlock Procedure Date: 10/21/2024 [...] 1 month. Procedure Code(s): --- Professional --- 04631, Small intestinal endoscopy, enteroscopy beyond second portion of duodenum, not including ileum; with biopsy, single or multiple CPT copyright 2021 [employer]. All rights reserved. The codes documented in this report are preliminary and upon marketing strategy analyst review may be revised to meet current compliance requirements. Vishnu Herndon DO 10/21/2024 12:37:44 PM This report has been signed electronically. Number of Addenda: 0 Note Initiated On: 10/21/2024 12:13 PM 10/21/24 1237 Date _ Vishnu Chacko Signature: Date (if indicated) CC: Dr. Laine Dye MD; Vishnu Herndon DO ~ Date Dictated: 10/21/24 1213 Date Transcribed: Shine Worker: RF Signed [facility]06-27-2025 Procedure note [facility] Medical Records Department [address] [place] [address] Operative Report - CC Letter MR#: [id number] Acct: [id number] Name: MATTY WHITLOCK Rep #:[id number] : 1990 34 From: Vishnu Herndon DO PCP: Dr. Laine Dye MD Status:REG [facility] 10/21/2024 Laine Dye Re : Upper GI [...] signed electronically. 10/21/24 1238 Date _ Vishnu Chacko Signature: Date (if indicated) CC: Dr. Laine Dye MD; Vishnu Herndon DO ~ Date Dictated: 10/21/24 1213 Date Transcribed: Shine Worker: RF Signed [facility]06-27-2025 Consult note [facility] Medical Records Department [address] [place] [address] Anesthesia Postop Eval I 10/21/24 1236 MR#: [id number] Acct: [id number] Name: MATTY WHITLOCK Rep #:[id number] : 1990 34 From: Myla Upton CRNA PCP: Dr. Laine Dye MD Status:REG [facility] Race: C Location: [place] [address] Anesthesia: Postop Eval I Current Vital Signs Temperature: 97.6 F Pulse Rate: 70 Blood Pressure: 125/78 Respiratory Rate: 20 Pulse Ox: 95 Assessment Airway patent: Yes Spontaneous unlabored respirations: Yes nausea: No Vomiting: No Anesthesia Complication: No Fluid Hydration Crystalloid volume administer (ml): 500 Total IV fluid infused: 500 Progress Note Anesthesia document: Postop Eval 1 completed: Yes 10/21/24 1236 a FILTER PRESS TENDER> Date _ Myla Upton FILTER PRESS TENDER Cosigner Signature: Date CC: ~ Signed [facility]06-27-2025 Consult note [facility] Medical Records Department [address] [place] [address] Pre-Anesthesia Evaluation 10/21/24 1139 MR#: [id number] Acct: [id number] Name: MATTY WHITLOCK Rep #:[id number] : 1990 34 From: Corby Rizo MD PCP: Dr. Laine Dye MD Status:REG [facility] Race: C Location: [place] [address] ASA Classification* ASA Classification ASA Classification: 3 [...] (13.0-16.5) 08/12/24:08/12/24 Hct 39.2 % (40-54) L 08/12/24 18:08/12/24 Plt Count 249 K/mm3 (150-450) 08/12/24 18:08/12/24 CHEMISTRY Potassium 3.9 mmol/L (3.3-5.1) 08/12/24 18:08/12/24 Sodium 133 mmol/L (133-145) 08/12/24 18:08/12/24 BUN 5 mg/dL (4-19) 08/12/24 18:08/12/24 Creatinine 0.93 mg/dL (0.70-1.20) 08/12/24 18:08/12/24 Glucose 104 mg/dL (70-99) H 08/12/24:08/12/24 TSH 1.30 uIU/mL (0.358-3.74) 10/24/19 16:31 COAG Pre-Assessment Diagnosis/Proposed Procedure Planned Operative Procedure(s): EGD Anesthesia History 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: 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 Hx Hospitalization No 10/20/24 09:55 Any Problems [...] sips of water?: Yes PONV PONV - sales assistants and salespersons: PONV - sales assistants and salespersons Female No 10/20/24 09:55 HX of Motion [...] 10/21/24 11:14 Respiratory Assessment Respiratory Assessment - sales assistants and salespersons: Respiratory Tract Infection Hx - sales assistants and salespersons Hx Respiratory Tract Infection Yes: CURRENT CHEST COLD 10/20/24 09:55 STOP Sleep Apnea STOP Sleep Apnea - sales assistants and salespersons: STOP Sleep Apnea - sales assistants and salespersons Hx Hypertension No 10/20/24 09:55 Hx Sleep [...] Tobacco Use History Tobacco Use History - sales assistants and salespersons: Tobacco Use History - 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 assistants and salespersons Tobacco Use Smoking Status Current every day smoker 10/20/24 09:55 Hx Tobacco Use Yes 10/20/24 09:55 Years Smoking Packs Smoked per Day 0.5 10/20/24 09:55 Smoking Cessation Date was within the last 15 years Hx Smoking Cessation Date Hx Smoking Cessation Counseling Any additional information?: Yes Smoking Status: Current every day smoker (Patient smoked today.) Hematologic Medial History Hematologic Hx - sales assistants and salespersons: 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 Hx of Blood Transfusion No 10/20/24 09:55 [...] confused, unrespo /Reproduction History /Reproductive History - sales assistants and salespersons: /Reproductive Hx- sales assistants and salespersons Hx Now No 10/20/24 09:55 Gestational Age [...] 10/21/24 1149 rasheeda STEWART> Date _ Corby Murilloignburton Signature: Date CC: ~ Signed [facility]06-27-2025 History and physical note [facility] Medical Records Department [address] [place] [address] History & Physical Exam 10/21/24 1113 MR#: [id number] Acct: [id number] Name: MATTY WHITLOCK Rep #:[id number] : 1990 34 From: Vishnu Friend DO PCP: Dr. Laine Dye MD Status:[facility] Location: [place] [address] HPI - General General Date of Admission: [...] - Erythematous duodenopathy. Biopsied. GES; not completed [facility] ED 07.21.24 with abd pain and [...] the epigastric pain started. He says its "all day" but less than 5x perday. It is soft and liquid. He did notice some bright red blood a few days ago but this went away. [facility] Medical History (Updated 10/20/24 @ 10:04 by [...] Laine Dye MD; Vishnu Herndon DO~ Signed [facility]06-27-2025 [facility] Medical Records Department [address] [place] [address] History Physical Exam 10/21/24 1113 MR#: [id number] Acct: [id number] Name: MATTY WHITLOCK Rep #: [id number] : 1990 34 From: Vishnu Herndon DO PCP: Dr. Laine Dye MD Status:[facility] Location: [place] [address]1 HPI - General General Date of Admission: [...] - Erythematous duodenopathy. Biopsied. GES; not completed [facility] ED 07.21.24 with abd pain and [...] the epigastric pain started. He says its "all day" but less than 5x per day. It is soft and liquid. He did notice some bright red blood a few days ago but this went away. [facility] Medical History (Updated 10/20/24 @ 10:04 by [...] Dr. Laine Dye MD; Vishnu Herndon DO [facility] Discharge summary [facility] Medical Records Department [address] [place] [address] Emergency Department Summary 10/19/24 MR#: [id number] Acct: [id number] Name: MATTY WHITLOCK Rep #:[id number] : [...] sick contacts denies any history of bloodclots. [facility] Medical History Asthma Depression Anxiety [...] following commands knew that he was at [facility] years 2024 Skin: Warm, dry, intact no [...] 15:15 IMPRESSION: NO ACUTE FINDINGS. Reading Location: [facility] Discharge Plan Triage Chief Complaint: Anxiety ED [...] show any evidence of pneumonia. Print Language: Kenyan Disposition Disposition: Home, Self Care What to do if you have Problems For any increased pain, shortness of breath, bleeding, nausea or vomiting, chestpain, or any unexpected problems, contact your Primary Care Provider. Call [facility] ([phone]) or report tothe closest Emergency Room. Call 911 if necessary. 10/19/24 1645 Cosigner Signature (if applicable): CC: Dr. Laine Dye MD ~ Signed [facility]06-25-2025 Radiology Diagnostic study note [facility] Imaging Services [address] [place], [place] [address] Chest PA and Lateral MR#: [id number] Acct: [id number] Name: MATTY WHITLOCK Rep #: [id number] : 1990 M 34 From: Wilfred Ferreira MD PCP: Dr. Laine Dye MD Status: REG ER Study:Chest PA and Lateral Date of Exam: 10/19/24 Exam# [id number] Ordering Dr: Myla Aguilar DO PROCEDURE: CHEST PA AND LATERAL 10/19/2024 REASON FOR EXAM: SOB TECHNIQUE: CHEST PA AND LATERAL COMPARISON: Prior study dated September 03, 2022. FINDINGS: Hardware: None Heart: The heart size is normal. Mediastinum: The mediastinal contour is unremarkable. Lungs: The lungs are clear. Bones: The bones are unremarkable. RAD/Chest PA and Lateral IMPRESSION: NO ACUTE FINDINGS. Reading Location: [id number] CC: Dr. Laine Dye MD; Dr. Lester Aguilar DO ~ Shine Worker: Signed [facility]06-25-2025 Discharge summary Author Lester Aguilar [facility] Note Date/Time October 19, 2024 4:45 pm [facility] Medical Records Department [address] [place] [address] Emergency Department Summary 10/19/24 MR#: [id number] Acct: [id number] Name: MATTY WHITLOCK Rep #:[id number] : [...] contacts denies any history of blood clots. [facility] Medical History Asthma Depression Anxiety [...] following commands knew that he was at [facility] years 2024 Skin: Warm, dry, intact no [...] 15:15 IMPRESSION: NO ACUTE FINDINGS. Reading Location: [id number] Discharge Plan Triage Chief Complaint: Anxiety ED [...] show any evidence of pneumonia. Print Language: Kenyan Disposition Disposition: Home, Self Care What to do if you have Problems For any increased pain, shortness of breath, bleeding, nausea or vomiting, chestpain, or any unexpected problems, contact your Primary Care Provider. Call [facility] ([phone]) or report to the closest Emergency Room. Call 911 if necessary. 10/19/24 1645 <Electronically signed by Lester Aguilar DO> Cosigner Signature (if applicable): CC: Dr. Laine Dye MD ~ Signed [facility] Work Phone: 1(873) 476-352404-24-2025 Evaluation note* Diagnosis Onset Date Resolution Status Admit Date Chronic gastroesophageal ref lux disease inactive August 18, 2024 4:00pm [facility] Work Phone: 1(761) 215-317404-24-2025 Evaluation note* Diagnosis Onset Date Resolution Status Admit Date Chronic gastroesophageal ref lux disease inactive August 18, 2024 4:00pm Gastro-esophageal reflux dis ease with esophagitis, without bleeding acute October 21, 2024 10:58am Abdominal pain chronic October 21, 2024 10:58am Bipolar 1 disorder chronic September 262024 10:58am [facility] Work Phone: [phone] Evaluation note* Diagnosis Onset Date Resolution Status [...] Abdominal pain chronic November 09, 2024 3:36pm [facility] Work Phone: [phone] Telephone encounter Note* Telephone Encounter - NORMA Lundberg CNP - 08/12/2024 12:36 PM EDT Prescription sent for pantoprazole 20 mg twice daily. [place] [id number] Miscellaneous Notes* Telephone Encounter - NORMA Lundberg CNP - 08/12/2024 12:36 PM EDT Prescription sent for pantoprazole 20 mg twice daily. * Telephone Encounter - Francie Bates - 08/12/2024 11:19 AM EDT Name of caller: Jay Contact phone number: [phone] Relationship to Patient: patient Provider: Hardik Practice: [...] return their call: No documented in this encounterSPaulding County HospitalLczysk44-02-6905 Telephone encounter Note* Telephone Encounter - Francie Bates - 08/12/2024 11:19 AM EDT Name of caller: Jay Contact phone number: [phone] Relationship to Patient: patient Provider: Hardik Practice: [...] business hours to return their call: No [place] [id number] Telephone encounter Note* Telephone Encounter - Rita [...] prior to picking up the medication: Yes [place] [id number] Miscellaneous Notes* Telephone Encounter - Rita Farrell [...] up the medication: Yes documented in this [facility]03-17-2025 Discharge summary [facility] Medical Records Department [address] [place] [address] Emergency Department Summary 07/11/24 MR#: [id number] Acct: [id number] Name: MATTY WHITLOCK Rep #:[id number] : [...] because if he doesnot wear he has "severe nicotine withdraw" makes him feel very anxious. He states [...] complaints or concerns reported at this time. [facility] Medical History Asthma Depression Anxiety [...] rectum while in the emergency room. His Daggett score at this time is 8 which [...] 80.0 H Lymph % (Auto) 12.3 L [place] % (Auto) 6.3 Eos % (Auto) 0.3 [...] return to the emergency room. Print Language: Kenyan Disposition Disposition: Home, Self Care What to do if you have Problems For any increased pain, shortness of breath, bleeding, nausea or vomiting, chestpain, or any unexpected problems, contact your Primary Care Provider. Call [facility] ([phone]) or report tothe closest Emergency Room. Call 911 if necessary. 07/11/24 7858 Cosigner Signature (if applicable): CC: Dr. Laine Dye MD ~ Signed [facility]03-17-2025 Discharge summary Author Gricel Talley [facility] Note Date/Time July 11, 2024 3:3 4pm [facility] Medical Records Department [address] [place] [address] Emergency Department Summary 07/11/24 MR#: [id number] Acct: [id number] Name: MATTY WHITLOCK Rep #:[id number] : [...] if he does not wear he has "severe nicotine withdraw" makes him feel very anxious. He states [...] complaints or concerns reported at this time. [facility] Medical History Asthma Depression Anxiety [...] rectum while in the emergency room. His Daggett score at this time is 8 which [...] 80.0 H Lymph % (Auto) 12.3 L [place] % (Auto) 6.3 Eos % (Auto) 0.3 [...] return to the emergency room. Print Language: Kenyan Disposition Disposition: Home, Self Care What to do if you have Problems For any increased pain, shortness of breath, bleeding, nausea or vomiting, chestpain, or any unexpected problems, contact your Primary Care Provider. Call [facility] ([phone]) or report to the closest Emergency Room. Call 911 if necessary. 07/11/24 1534 <Electronically signed by Gricel Talley DO> Cosigner Signature (if applicable): CC: Dr. Laine Dye MD ~ Signed [facility] Work Phone: 1([phone]) 320-953303-10-2025 Telephone encounter Note* Telephone Encounter - NORMA Lundberg CNP - 07/04/2024 12:48 PM EDT [facility]1481 Miscellaneous Notes* Telephone Encounter - NORMA Lundberg CNP - 07/04/2024 12:48 PM EDT Step down therapy dose sent * Telephone Encounter - Maritza Ni MA - 07/04/2024 10:21 AM EDT No follow up on file documented in this [facility]03-10-2025 Telephone encounter Note* Telephone Encounter - Maritza Ni MA - 07/04/2024 10:21 AM EDT No follow up on file [facility] CenterNygnak08-59-5752 Telephone encounter Note* Telephone Encounter - Celia Shukla MA - 04/18/2024 4:22 PM EST Patient has appt scheduled for 04/19 will address at visit [facility] CenterCkcwbv96-32-5677 Miscellaneous Notes* Telephone Encounter - Celia Shukla [...] mild to moderate intermittent upper abdominal pain "that feels like acid reflux." Denies hematemesis, blood in stool, vomiting, dizziness, chest pain, difficulty breathing, fever, chills. Reports some relief with Pepcid, "but Nexium is the only thing that really works."Pharmacy and allergies verified/reviewed with patient. Patient is [...] be seen Protocols used: Abdominal Pain - Iybyz-UUCNM-DL documented in this encounterSPaulding County HospitalIgtrqs19-08-9370 Telephone encounter Note* Telephone Encounter - Celia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 Niño 08/11/2023 12:17 AM Dictation workstation: [id number] No results found for this or any previous visit (from the past 4464 hour(s)). NURSING NOTES AND VITALS REVIEWED The nursing notes within the ED encounter and vital signs as below have been reviewed. BP 120/76 Pulse 82 Temp 36.7 C (98 F) Resp 17 Ht 1.778 m (5' 10") Wt 68 kg (150 lb) SpO2 98% [...] as of 08/11/23 0610 ThuAug 11, 2023 001 EKG at 2333 interpreted by me. Sinus tachycardia rate 113 bpm. [place] normal. ME 150 ms, QRS 92 ms, QT [address]-T change. No notes of acute ischemia. No STEMI. [EC] 0020 CBC and Auto Differential(!) White blood cell count 15.0, hemoglobin 15.3, Sebastian crit 46.5, platelet count 384,000, [EC] 0021 Drug Screen, Urine(!) Urine drug screen is positive for presumptive cannabinoids. Otherwise negative. [EC] 0021 Tucwc-ki-riwp glucose was normal at 98. [EC] 0208 [...] Acute psychosis (Multi) Alcohol intoxication with delirium ([facility]-H[facility]) Cannabis use disorder Complicated laceration of [...] psychosis (Multi) 2. Alcohol intoxication with delirium ([facility]) 3. Cannabis use disorder 4. Complicated laceration of hand, right, initial encounter DISPOSITION Disposition: signed out at [address] Kati Barrios Patient condition is stable Billing Provider Critical Care Time: 0 minutes Wes Jackson DO 08/11/23 0453 Wes Jackson DO 08/11/23 0512 Wes Jackson DO 08/11/23 0610 [facility] Work Phone: 1(621) 562-957003-07-2024 Discharge summary Author Hieu Man [facility] July 02, 2023 5:54am Note Date/Time July 02, 2023 12:5 [facility] [address] [place] [address] Emergency Department Summary 07/02/23 MR#: [id number] Acct: [id number] Name: MATTY WHITLOCK Rep #:[id number] : 1990 33 From: Hieu Man MD PCP: Dr. Laine Dye MD Status:REG ER Location: ED HPI HPI - Psych History of Present Illness Chief Complaint: Mental Health Informant: patient Narrative Narrative: Patient presents voluntarily for mental health evaluation. He states he was staying at [facility], a sober house. He states he used [...] others, about how the entire town of [place] is laden with evil, and also some occasional delusions of paranoia and ideas of reference in many of his stories. He denies any physical symptoms, injury, illness, or drug use recently. 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 Call [facility] ([phone]) or report to the closest Emergency Room. Call 911 if necessary. 07/02/23 3975 <Electronically signed by Hieu Man MD> Cosigner Signature (if applicable): CC: Dr. Laine Dye MD ~ Signed [facility] Work Phone: 1(750) 202-116110-14-2023 NoteHNO ID: [id number] Author: Note, Interface Service: ? Author Type: ? Type: Progress Notes Filed: 02/07/2023 5:03 AM Note Text: Epic Scheduled Downtime: 02/07/2023 1:00:00 AM to 02/07/2023 1:28:00 [facility]09-17-2023 NoteHNO ID: [id number] Author: Note, Interface Service: ? Author Type: ? Type: Progress Notes Filed: 01/11/2023 3:06 AM Note Text: Epic Scheduled Downtime: 01/11/2023 1:02:01 AM to 01/11/2023 2:21:01 [facility]09-16-2023 NoteHNO ID: [id number] Author: Note, Interface Service: ? Author Type: ? Type: Progress Notes Filed: 01/10/2023 5:00 AM Note Text: Epic Scheduled Downtime: 01/10/2023 1:00:00 AM to 01/10/2023 4:45:00 [facility]09-10-2023 NoteHNO ID: [id number] Author: Rachel Lawrence MD Service: Urology Author [...] than 4 hours. 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 Rachel Lawrence MD 01/04/2023 7:18 [facility]09-10-2023 NoteHNO ID: [id number] Author: Yaa Ruiz, RN Service: Emergency Medicine Author Type: Registered Nurse Type: ED Notes Filed: 01/04/2023 6:42 PM Note Text: Urology procedure starting at this time.[facility]04-10-2023 Telephone encounter Note* Telephone Encounter - [...] of last refill (see medication tab): 04.29.22 T [id number] Miscellaneous Notes* Telephone Encounter - Maritza Pitt [...] (see medication tab): 04.29.22 documented in this [facility]03-22-2023 History of Present illness Narrative* Rusty Townsend APRN.SLEEVE FIXER - 07/16/2022 3:30 PM EDT Subjective HPI [...] rehydration -BRAT Diet (Bananas, Rice, Apple Sauce, [place]) -If no better in 3-5days follow up back in clinic or with primary care provider -Follow up in the ER with signs of dehydration, increasing abdominal pain, high fever, or blood in vomit or stool. Rusty Townsend APRN.SLEEVE FIXER [facility] History of Present illness Narrative* Sharon Evans [...] history is provided by the patient. No supervisor communications and signals was used. Review of Systems Constitutional: Negative. [...] symptoms. Sharon Evans APRN.PRAVIN documented in this [facility]-[address] Loving [facility] June 18, 2022 6:38pm Note Date/Time June 18, 2022 6:35pm [facility] Medical Records Department [address] [place] [address] Emergency Department Summary 06/18/22 MR#: [id number] Acct: [id number] Name: MATTY WHILTOCK Rep #:[id number] : 1990 32 From: [...] I did also obtain history from his [facility] online prescribing report. This is consistent with his story of getting small doses of Ativan. [facility] Medical History Anxiety Asthma Bipolar 1 [...] your Primary Care Provider. Call [facility] ([phone]) or report to the closest Emergency Room. Call 911 if necessary. 06/18/221837 <Electronically signed by Stu Loving MD> Cosigner Signature (if applicable): CC: Dr. Laine Dye MD ~ Signed [facility] Work Phone: 1(518) 590-303101-23-2023 Telephone encounter Note* Telephone Encounter - Laine Dye MD - 05/19/2022 5:42 AM EST Rx sent [id number] Miscellaneous Notes* Telephone Encounter - Laine Dye MD - 05/19/2022 5:42 AM EST Rx sent * Telephone Encounter - Padmini Culver - 05/16/2022 12:41 PM EST Matty is requesting a refill on an inhaler that Matty was receiving from the certified paralegal. Since it has been a while since Matty saw the certified paralegal Matyt is unable to go back to them [...] Medication name: budesonide-formoterol (SYMBICORT) 80-4.5 MCG/ACT AERO [[id number]] Medication dosage: 2 puffs How many day supply requestin days Medication route: inhalation (inhaler) Medication administration time(s): 2 times a day (BID) If taking medication PRN, reason for taking medication: N/A If this is a controlled substance do you receive this or any other controlled medication from any other doctor or facility: N/A Ordering provider: [facility] Sales [employer] Marketing Executive Date of last office visit: 05/08/21 Date of next office visit: 05/20/22 Date of last refill: (see medication tab): 03/01/20 Updated/Validated preferred pharmacy: Yes Patient instructed to contact the pharmacy prior to picking up the medication: Yes documented in this [facility]01-20-2023 Telephone encounter Note* Telephone Encounter - Padmini Culver - 05/16/2022 12:41 PM EST Matty is requesting a refill on an inhaler that Matty was receiving from the certified paralegal. Since it has been a while since Matty saw the certified paralegal Matty is unable to go back to [...] Medication name: budesonide-formoterol (SYMBICORT) 80-4.5 MCG/ACT AERO [[id number]] Medication dosage: 2 puffs How many day supply requestin days Medication route: inhalation (inhaler) Medication administration time(s): 2 times a day (BID) If taking medication PRN, reason for taking medication: N/A If this is a controlled substance do you receive this or any other controlled medication from any other doctor or facility: N/A Ordering provider: [facility] Sales [employer] Executive Date of last office visit: 05/08/21 Date of next office visit: 05/20/22 Date of last refill: (see medication tab): 03/01/20 Updated/Validated preferred pharmacy: Yes Patient instructed to contact the pharmacy prior to picking up the medication: Yes [id number] Telephone encounter Note* Telephone Encounter - [facility] [...] of last refill (see medication tab): 01/27/22 [facility]2023 Miscellaneous Notes* Telephone Encounter - [facility] Tobar [...] (see medication tab): 01/27/22 documented in this [facility]11-29-[facility]21 Hospital Discharge instructions Patient Education 03/24/2021 22:59:52 [...] relieved by rest and mild pain reliever [phone] [employer]. [address] [place] [address], [place] [address]. All rights reserved. This information is not intended as a substitute for professional medical care. Always follow yourhealthcare professional's instructions. 03/24/2021 22:59:51 Gastritis (Adult) Gastritis (Adult) Gastritis is inflammation and irritation of the stomach lining. You can have it for a short time (acute) or be long lasting (chronic). Infection with bacteria called H pylori most often causes gastritis. More than a third of people in the have these bacteria in their bodies. In [...] or as directed by your healthcare provider [phone] [employer]. [address] [place] [address]. All rights reserved. This information is not intended as a substitute for professional medical care. Always follow yourhealthcare professional's instructions. Follow Up Care 03/24/2021 21:51:16 With:Follow up with primary care provider Address:Unknown When:2-4 days [facility] 11-26-2021 Hospital Discharge instructions Patient Education 03/22/2021 [...] afford the prescribed medication, you can try ajuj-hqq-fonffrg acid blockers, such as PepcidAC, Tagamet, Zantac, [...] or as directed by your healthcare provider [phone] [employer]. [address] [place] [address], [place] [address]. All rights reserved. This information is not [...] relieved by rest and mild pain reliever [phone] [employer]. [address] [place] [address]. All rights reserved. This information is not [...] and esomeprazole. Many of these are available twbj-ixf-pskslxb or available as generics. Take an antacid [...] directed by your healthcare provider Abdominal swelling [phone] [employer]. [address] [place] [address]. All rights reserved. This information is not [...] With:NONE PHYSICIAN Address:Unknown When:2-4 days [facility] 11-12-2021 Hospital Discharge instructions Patient Education 03/08/2021 [...] can help you live a healthier life. [phone] [employer]. [address] [place] [address]. All rights reserved. This information is not intended as a substitute for professional medical care. Always follow yourhealthcare professional's instructions. Follow Up Care 03/08/2021 20:11:13 With:DONALD GÓMEZ MD Address: When:2-4 days [facility] 10-05-2020 History of Present illness Narrative* Dimitrios Back (Rt), Patsy - 01/30/2020 12:40 PM EDT Radiology Service [...] 30, 2020 12:40 PM [facility] note Author Corby Rizo [facility] Note Date/Time October 21, 2024 11:4 9am [facility] Medical Records Department [address] [address] Pre-Anesthesia Evaluation 10/21/24 1139 MR#: [id number] Acct: [id number] Name: MATTY WHITLOCK Rep #:[id number] : 1990 34 From: Corby Rizo MD PCP: Dr. Laine Dye MD Status:REG [facility] Race: C Location: [place] [address] ASA Classification* ASA Classification ASA Classification: 3 [...] lab: CBC WBC 10.6 K/mm3 (4.4-11.0) 08/12/24 18:33 08/12/24 RBC 4.77 M/mm3 (4.6-6.2) 08/12/24 18:08/12/24 Hgb 13.8 g/dL (13.0-16.5) 08/12/24 18:08/12/24 Hct 39.2 % (40-54) L 08/12/24 18:08/12/24 Plt Count 249 K/mm3 (150-450) 08/12/24 18:08/12/24 CHEMISTRY Potassium 3.9 mmol/L (3.3-5.1) 08/12/24 18:08/12/24 Sodium 133 mmol/L (133-145) 08/12/24 18:08/12/24 BUN 5 mg/dL (4-19) 08/12/24:08/12/24 Creatinine 0.93 mg/dL (0.70-1.20) 08/12/24 18:08/12/24 Glucose 104 mg/dL (70-99) H 08/12/24 18:08/12/24 TSH 1.30 uIU/mL (0.358-3.74) 10/24/19 16:31 COAG Pre-Assessment Diagnosis/Proposed Procedure Planned Operative Procedure(s): EGD Anesthesia History 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: 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 Hx Hospitalization No 10/20/24 09:55 Any Problems [...] sips of water?: Yes PONV PONV - sales assistants and salespersons: PONV - sales assistants and salespersons Female No 10/20/24 09:55 HX of Motion [...] 10/21/24 11:14 Respiratory Assessment Respiratory Assessment - sales assistants and salespersons: Respiratory Tract Infection Hx - sales assistants and salespersons Hx Respiratory Tract Infection Yes: CURRENT CHEST COLD 10/20/24 09:55 STOP Sleep Apnea STOP Sleep Apnea - sales assistants and salespersons: STOP Sleep Apnea - sales assistants and salespersons Hx Hypertension No 10/20/24 09:55 Hx Sleep [...] Tobacco Use History Tobacco Use History - sales assistants and salespersons: Tobacco Use History - sales assistants and salespersons Tobacco Use Smoking Status Current every day smoker 10/20/24 09:55 Hx Tobacco Use Yes 10/20/24 09:55 Years Smoking Packs Smoked per Day 0.5 10/20/24 09:55 Smoking Cessation Date was within the last 15 years Hx Smoking Cessation Date Hx Smoking Cessation Counseling Any additional information?: Yes Smoking Status: Current every day smoker (Patient smoked today.) Hematologic Medial History Hematologic Hx - sales assistants and salespersons: 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 Hx of Blood Transfusion No 10/20/24 09:55 [...] confused, unrespo /Reproduction History /Reproductive History - sales assistants and salespersons: /Reproductive Hx- sales assistants and salespersons Hx Now No 10/20/24 09:55 Gestational Age [...] MD Cosigner Signature: Date CC: ~ Signed [facility] Work Phone: Consult note Author Myla Upton [facility] Note Date/Time October 21, 2024 12:3 6pm [facility] Medical Records Department [address] [address] Anesthesia Postop Eval I 10/21/24 1236 MR#: [id number] Acct: [id number] Name: MATTY WHITLOCK Rep #:[id number] : 1990 34 From: Myla Upton FILTER PRESS TENDER PCP: Dr. Laine Dye MD Status:REG SDC Y Race: C Location: [place] [address] Anesthesia: Postop Eval I Current Vital Signs [...] 10/21/24 1236 <Electronically signed by Myla gifford FILTER PRESS TENDER> Date _ Myla Upton FILTER PRESS TENDER Cosigner Signature: Date CC: ~ Signed [facility] Work Phone: Consult note Author [facility] Note Date/Time October 21, 2024 1:31 pm [facility] Medical Records Department [address] [place] [id number] Anesthesia Postop Eval II 10/21/24 1311 MR#: [id number] Acct: [id number] Name: MATTY WHITLOCK Rep #:[id number] : 1990 34 From: Myla Upton FILTER PRESS TENDER PCP: Dr. Laine Dye MD Status:REG ABELINO Y Race: C Location: [place] [address] Anesthesia Postop Eval I Sum Postop Eval Completion status Anesthesia document: Postop Eval 1 completed: Yes Anesthesia Postop Eval I Summary Anesthesia Postop Eval I Summary: Anesthesia Postop Eval I: Assessment Summary Airway patent Yes 10/21/24 12:36 FILTER PRESS TENDER.CSIR Spontaneous unlabored Yes 10/21/24 12:36 FILTER PRESS TENDER.CSIR respirations Mental status nausea No 10/21/24 12:36 FILTER PRESS TENDER.CSIR Vomiting No 10/21/24 12:36 FILTER PRESS TENDER.CSIR Anesthesia Postop Eval I: Fluid Summary Crystalloid volume administer 500 10/21/24 12:36 FILTER PRESS TENDER.CSIR (ml) Colloids volume administered ( ml) Blood Product volume administered (ml) Total IV fluid infused 500 10/21/24 12:36 FILTER PRESS TENDER.CSIR Anesthesia Postop Eval I: Summary Notes Anesthesia Complication No 10/21/24 12:36 FILTER PRESS TENDER.CSIR Anesthesia Complication Comment: Post-operative progress note Anesthesia: Postop Eval II Evaluation Mental status: Awake Pain Level: 0 nausea: No Vomiting: No 10/21/24 1311 <Electronically signed by Myla gifford CRNA> Date _ Myla Upton CRNA Cosigner Signature: Date CC: ~ Signed [facility] Work Phone: Discharge summary Author Hieu Man [facility] Note Date/Time November 14, 2024 6:45 am [facility] Medical Records Department [address] [place] [address] Emergency Department Summary 11/14/24 MR#: [id number] Acct: [id number] Name: MATTY WHITLOCK Rep #:[id number] : 1990 34 From: Hieu Man MD PCP: Dr. Laine Dye MD Status:PRE ER Location: ED HPI HPI - Psych History of Present Illness Chief Complaint: Anxiety Informant: patient and EMS Narrative Narrative: 34-year-old male presents via EMS for anxiety about his esophagitis and gastric ulcer discomfort that he has had for over a month, he has been on treatment for it since it was diagnosed by EGD about 2 weeks ago including Nexium and Carafate, he states the pain has been flaring up at times, tonight he took famotidine for it and his discomfort is basically gone and he is asking for something for anxiety. He states Ativan helps when he is given that. [facility] Medical History Dietary restriction Esophageal [...] 1 mg PO QHS 07/11/24 5 History albuterol sulfate 90 mcg/actuation 2 inh inhalation [...] Q30D Unknown History intramuscular syringe (Invega Sustenna) dicyclomine 20 mg tablet 20 mg PO BID PRN abdominal p ain 11/04/24 Unknown Rx #30 tabs esomeprazole magnesium 40 mg 40 mg PO BID #60 caps 03/21 Unknown Rx capsule,delayed release sucralfate 100 mg/mL oral 10 ml PO BID #300 mL 5 Unknown Rx suspension (Carafate) Allergy/AdvReac Type Severity Reaction Status Date / Time ondansetron (From Zofran) AdvReac Other Verified 11/14/24 06:22 Surgical History History of surgery on lower [...] Respiratory/Chest: Denies cough or dyspnea Gastrointestinal Gastrointestinal: Reports abdominal pain; Denies diarrhea, nausea or vomiting Genitourinary Genitourinary ED: Denies dysuria or hematuria Musculoskeletal Musculoskeletal: Denies back pain or neck pain Integumentary Denies abscess or rash Neurologic Neurologic: Denies headache(s), paresthesias or weakness Psychiatric Psychiatric: Reports anxiety; Denies suicidal thoughts EXAM Physical Exam Const Vital Signs: 11/14/24 06:23 11/14/24 06:34 Temperature 98.5 F Temperature Source Oral Pulse Rate 83 Respiratory Rate 18 Respiratory Effort Normal Non-Labored Respiratory Pattern Normal Blood Pressure 119/74 Blood Pressure Mean 89 Pulse Ox 99 Oxygen Delivery Method Room Air Positive well nourished and well developed General Appearance ED: well developed and NAD Eyes PERRL and EOMs intact bilaterally Neck full ROM and supple Resp normal respiratory effort GI non-distended Extremity normal to inspection General Extremety ED: Negative for edema General Extremity: Negative for edema Neuro oriented x3, CN's II-XII intact bilaterally and no sensory deficits noted Sensorium / Orientation: awake and alert Motor Exam: strength 5/5 throughout Psych Appearance: grossly normal Activity / Motor Behavior: appropriate eye contact and psychomotor agitation Thought Content: normal thought content Attention / Concentration: attention grossly intact Memory / Cognition: memory grossly intact Skin no wounds Rashes: no rashes MDM MDM MDM Narrative Medical decision making narrative: I reviewed this patient's chart briefly, she was seen here 1 week ago for the exact same thing and given Ativan. He is asking for Ativan now. He missed an Invega injection, he has not yet received that and is supposed to hopefully get it today. His vital signs are normal he is not tachycardic, he has a history ofschizoaffective disorder bipolar 1 disorder, anxiety, depression. Giving him 3 tablets of hydroxyzine, advising him that I am not giving him any controlled substances for this, and he should follow-up and get his Invega injection as soon as possible, and I also reassured him about the pathology that was seen on the EGD, that these are frequently easily treated by medications and time to heal. I offered him something for his abdominal discomfort but he declined it because he took a famotidine and states it is better. He was extremely tremulous and shaky in the bed but he was able to get up and walk back and forthto the bathroom without any apparent discomfort or limitation, stable for discharge and follow-up. History & Record Review Additional record(s) reviewed:: Prior outpatient record (EGD 3 weeks ago showingnonbleeding gastric ulcer and some mild esophagitis) and Prior ED visit Discharge Plan Triage Chief Complaint: Anxiety ED Provider: Hieu Man Dx/Rx/DC Orders Clinical Impression: Anxiety about health, Gastro-esophageal reflux disease with esophagitis, without bleeding, Gastric ulcer, Intermittent upper abdominal pain Instructions: ED Anxiety Reaction Prescriptions: No Action sucralfate [Carafate] 100 mg/mL suspension 10 ml PO BID Qty: 300 3RF prazosin 1 mg capsule 1 mg PO [...] 1 mg tablet 1 mg PO DAILY dicyclomine 20 mg tablet 20 mg PO BID PRN (Reason: abdominal pain) Qty: 30 0RF esomeprazole magnesium 40 mg capsule,delayed release(DR/EC) 40 mg PO BID Qty: 60 3RF Primary Care Provider: Laine Dye Referrals: Counseling,Center [Group of Physicians] - (today for Invega injection as able) Laine Dye MD [Primary Care Provider] - Print Language: Kenyan Disposition Disposition: Home, Self Care What to do if you have Problems For any increased pain, shortness of breath, bleeding, nausea or vomiting, chestpain, or any unexpected problems, contact your Primary Care Provider. Call [facility] ([phone]) or report to the closest Emergency Room. Call 911 if necessary. 11/14/24 0645 <Electronically signed by Hieu Man MD> Cosigner Signature (if applicable): CC: Dr. Laine Dye MD ~ Signed [facility] Work Phone: Evaluation + Plan note No data available for this section [facility] Evaluation noteNo assessment information available [facility] Work Phone: Evaluation note* Diagnosis Throat pain- Primary [facility]* Diagnosis Diarrhea, unspecified type- Primary [facility]* Diagnosis Acute psychosis (Multi)- Primary Alcohol intoxication with delirium ([facility]) Cannabis use disorder Complicated laceration of hand, right, initial encounter documented in this encounter [facility] Work Phone: Evaluation note* Diagnosis Nonintractable headache, unspecified chronicity pattern, unspecified headache type- Primary Pain of hand, unspecified laterality documented in this encounter [facility] note* Diagnosis Schizoaffective disorder, unspecified type (HCC)- Primary [facility]* Diagnosis Other psychoactive substance use, unspecified with psychoactive substance- induced mood disorder (HCC)- Primary [facility]* Diagnosis Epigastric pain Abdominal pain, epigastric [facility] Procedure not carried out- Primary Procedure not carried out for other reasons [facility] Diagnosis Moderate persistent asthma, unspecified whether complicated- Primary Restless leg syndrome Restless legs syndrome (RLS) Screening for cholesterol level Bipolar affective disorder, remission status unspecified (HCC) Tobacco use [facility] Diagnosis Moderate persistent asthma, unspecified whether complicated- Primary Restless leg syndrome Restless legs syndrome (RLS) Screening for cholesterol level Bipolar affective disorder, remission status unspecified (HCC) GERD without esophagitis- Primary Esophageal reflux [facility] Diagnosis Moderate persistent asthma, unspecified whether complicated- Primary Restless leg syndrome Restless legs syndrome (RLS) Screening for cholesterol level Bipolar affective disorder, remission status unspecified (HCC) Moderate persistent asthma, unspecified whether complicated [facility] Attachments The following attachments cannot be sent through Care Everywhere. * Alcohol Use Disorder ED ([place]) [facility] Discharge instructions Additional [...] hesitate to return to the emergency room. [facility] Work Phone: Hospital Discharge instructions Additional Instructions He received Ativan here in the emergency department. Please let your sober living know this. Return back to the ED if symptoms change or worsen. Follow-up with PCP.[facility] Work Phone: Hospital Discharge instructions Additional Instructions Follow-up your doctor in outpatient setting. Use inhaler as prescribed. Return with worsening symptoms and concerns. Your chest x-ray did not show any evidence of pneumonia. [facility] Work Phone: Hospital Discharge instructionsAdditional Instructions [...] not excluded. Follow-up with your primary care physician.[facility] Work Phone: Hospital Discharge instructionsAdditional Instructions History of anxiety. Call your counselor office to get your outpatient Invega shots. Continue hydroxyzine. Discussed with your psychiatry team for additional breakthrough medications or adjustment of medications as needed. You are on appropriate medications to treat your reported history of ulcers. Continue those medications.[facility] Work Phone: Hospital Discharge instructionsAdditional Instructions You must attend the outpatient intensive psychotherapy program that starts tomorrow. Otherwise you will be pink slipped.[facility] Work Phone: Reason for referral (narrative)No reason for referral information [facility] Work Phone: Summary Purpose Family History No [...] September 01, 2021 9: 02pm Power of Internet Marketing Strategist No September 01, 2021 9:02pm Advance Directive Response Recorded Date/ Time Living Will No December 27 022 3:22pm Power of Internet Marketing Strategist No December 27, 2021 3:22pm Advance Directive Response Recorded Date/ Time Living Will No June 18, 023 5:41pm Power of Internet Marketing Strategist No June 18, 2022 5:41pm Advance Directive Response Recorded Date/ Time Living Will No September 03, 2022 1 0:02pm Power of Internet Marketing Strategist No September 03, 2022 10:02pm Advance Directive Response Recorded Date/ Time Living Will No January 04, 2023 2:39pm Power of Internet Marketing Strategist No December 2:39pm Advance Directive Response Recorded Date/ Time Living Will No May 28 1:28pm Power of Internet Marketing Strategist No May 28, 2023 1:28pm Advance Directive Response Recorded Date/ Time Living Will No July 02, 2023 12:17am Power of Internet Marketing Strategist No July 01 12:17am Advance Directive Response Recorded Date/ Time Declaration for Mental Health Treatment No January 05, 2024 10:05pm Advance Directives No December 10:05pm Durable Power Of Internet Marketing Strategist No 2023 10:05pm Living Will No January 05, 2024 10:05pm Advance Directive Response Recorded Date/ Time Living Will No July 11, 2024 11:30am Power of Internet Marketing Strategist No July 11 11:30am Advance Directive Response Recorded Date/ Time Living Will No July 11, 2024 11:30am Do you have a Healthcare Power of Internet Marketing Strategist? No July 11, 2024 11:30am Living Will No August 12, 2024 5:47pm Do you have a Healthcare Power of Internet Marketing Strategist? No August 12, 2024 5:47pm Advance Directive Response Recorded Date/ Time Living Will No July 11, 2024 11:30am Do you have a Healthcare Power of Internet Marketing Strategist? No July 11, 2024 11:30am Do you have a Healthcare Power of Internet Marketing Strategist? No October 19, 2024 3:40pm Living Will No August 12, 2024 5:47pm Do you have a Healthcare Power of Internet Marketing Strategist? No August 12, 2024 5:47pm Advance Directive Response Recorded Date/ Time Living Will No July 11, 2024 11:30am Do you have a Healthcare Power of Internet Marketing Strategist? No July 11, 2024 11:30am Do you have a Healthcare Power of Internet Marketing Strategist? No October 20, 2024 9:55am Do you have a Healthcare Power of Internet Marketing Strategist? No October 19, 2024 3:40pm Living Will No August 12, 2024 5:47pm Do you have a Healthcare Power of Internet Marketing Strategist? No August 12, 2024 5:47pm Advance Directive Response Recorded Date/ Time Living Will No July 11, 2024 11:30am Do you have a Healthcare Power of Internet Marketing Strategist? No July 11, 2024 11:30am Do you have a Healthcare Power of Internet Marketing Strategist? No October 20, 2024 9:55am Do you have a Healthcare Power of Internet Marketing Strategist? No October 19, 2024 3:40pm Living Will No August 12, 2024 5:47pm Do you have a Healthcare Power of Internet Marketing Strategist? No August 12, 2024 5:47pm Do you have a Healthcare Power of Internet Marketing Strategist? No November 01, 2024 2:32pm Advance Directive Response Recorded Date/ Time Do you have a Healthcare Power of Internet Marketing Strategist? No October 20, 2024 9:55am Do you have a Healthcare Power of Internet Marketing Strategist? No October 19, 2024 3:40pm Living Will No August 12, 2024 5:47pm Do you have a Healthcare Power of Internet Marketing Strategist? No August 12, 2024 5:47pm Do you have a Healthcare Power of Internet Marketing Strategist? No November 01, 2024 2:32pm Advance Directive Response Recorded Date/ Time Do you have a Healthcare Power of Internet Marketing Strategist? No October 20, 2024 9:55am Do you have a Healthcare Power of Internet Marketing Strategist? No October 19, 2024 3:40pm Living Will No August 12, 2024 5:47pm Do you have a Healthcare Power of Internet Marketing Strategist? No August 12, 2024 5:47pm Do you have a Healthcare Power of Internet Marketing Strategist? No November 01, 2024 2:32pm Do you have a Healthcare Power of Internet Marketing Strategist? No November 12, 2024 9:50am Advance Directive Response Recorded Date/ Time Do you have a Healthcare Power of Internet Marketing Strategist? No October 20, 2024 9:55am Do you have a Healthcare Power of Internet Marketing Strategist? No October 19, 2024 3:40pm Do you have a Healthcare Power of Internet Marketing Strategist? No November 14, 2024 6:26am Living Will No August 12, 2024 5:47pm Do you have a Healthcare Power of Internet Marketing Strategist? No August 12, 2024 5:47pm Do you have a Healthcare Power of Internet Marketing Strategist? No November 01, 2024 2:32pm Do you have a Healthcare Power of Internet Marketing Strategist? No November 12, 2024 9:50am Advance Directive Response Recorded Date/ Time Do you have a Healthcare Power of Internet Marketing Strategist? No October 20, 2024 9:55am Do you have a Healthcare Power of Internet Marketing Strategist? No October 19, 2024 3:40pm Do you have a Healthcare Power of Internet Marketing Strategist? No November 14, 2024 6:26am Living Will No August 12, 2024 5:47pm Do you have a Healthcare Power of Internet Marketing Strategist? No August 12, 2024 5:47pm Do you have a Healthcare Power of Internet Marketing Strategist? No November 01, 2024 2:32pm Do you have a Healthcare Power of Internet Marketing Strategist? No November 12, 2024 9:50am Do you have a Healthcare Power of Internet Marketing Strategist? No November 15, 2024 12:36pm Chief Complaint and Reason for Visit Chief [...] pm anxiety November 12, 2024 9:26 am Chief Complaint Admit Date anxiety, abd bloating August 12, 2024 3 :25pm ED follow up August 18, 2024 4:0 0pm INT ORDERS August 22, 2024 2:5 8pm anxiety October 19, 2024 12:1 6pm gastric pain, anxiety November 01, 2024 2:2 2pm Abdominal pain November 09, 2024 3:36 pm anxiety November 12, 2024 9:26 am anxiety November 14, 2024 6:21 am Chief Complaint Admit Date anxiety, abd bloating August 12, 2024 3 :25pm ED follow up August 18, 2024 4:0 0pm INT ORDERS August 22, 2024 2:5 8pm anxiety October 19, 2024 12:1 6pm gastric pain, anxiety November 01, 2024 2:2 2pm Abdominal pain November 09, 2024 3:36 pm anxiety November 12, 2024 9:26 am anxiety November 14, 2024 6:21 am ANXIETY November 15, 2024 12:3 0pm Reason for Referral Specialty Diagnoses / Procedures Referred By Contac t Referred To Contact Laine Dye MD [address] [place] [address], [place] [address] Referral ID Status Reason Start Date Expiration Date V isits Requested Visits Authorized [id number] Pending Review 1 1 Specialty Diagnoses / Procedures Referred By Contac t Referred To Contact Ent - Otolaryngology Diagnoses Throat pain Procedures CONSULT TO ENT OFFICE/OUTPATIENT [facility] 60-74 MINUTES Sharon Evans APRN.SLEEVE FIXER [address] [place] [address] Referral ID Status Reason Start Date Expiration Date Visits Requested Visits Authorized [id number] Pending Review PCP Requested Referral 06/27/2022 06/27/2023 1 1 Additional Source Comments (unrecognized sect ion and content) No Status Records FoundNo Status Records FoundNo Status Records FoundNo Status Records FoundNo Status Records FoundNo Status Records FoundNo Status Records FoundNo Status Records FoundNo Status Records FoundNo Status Records FoundNo Status Records Found INFORMATION SOURCE (unrecogn ized section and content) DATE CREATED AUTHOR 10/20/2017 [facility] DATE CREATED AUTHOR AUTHOR'S ORGANIZ ATION 10/20/2017 [facility] DATE CREATED AUTHOR AUTHOR'S ORGANIZ ATION 03/26/2021 [facility] ([place] DATE CREATED AUTHOR AUTHOR'S ORGANIZ ATION 08/12/2023 [facility] [place] DATE CREATED AUTHOR AUTHOR'S ORGANIZ ATION 08/17/2023 [facility] DATE CREATED AUTHOR AUTHOR'S ORGANIZ ATION 09/02/2023 [facility] DATE CREATED AUTHOR AUTHOR'S ORGANIZ ATION 12/28/2023 [facility] DATE CREATED AUTHOR AUTHOR'S ORGANIZ ATION 01/07/2024 [facility] DATE CREATED AUTHOR AUTHOR'S ORGANIZ ATION 02/08/2024 [facility] DATE CREATED AUTHOR AUTHOR'S ORGANIZ ATION 11/10/2024 [facility] DATE CREATED AUTHOR AUTHOR'S ORGANIZ ATION 11/15/2024 [facility] Goals (unrecognized section and content) Goals may [...] Dr. Stu Loving MD Emergency Provider Active Beam Dyer Operator Relationship Specialty Start Date End Date Laine Dye [address] [place] [address] PCP - General Family Medicine 04/01/21 JaimeRupa lawson [address] [place] [address] [address] [place] [phone] Psychiatry 02/27/17 Beam Dyer Operator Relationship Specialty Start Date End Date Laine Dye [address] [facility], [place] [phone] PCP - General Family Medicine 04/01/21 Rupa Sandoval [address] [place] [address] [place] [phone] Psychiatry 02/27/17 Beam Dyer Operator Relationship Specialty Start Date End Date Laine Dye MD [address] [place] [id number] PCP - General 02/04/21 Team Status: Inactive [...] Dr. Hieu Man MD Emergency Provider Active Beam Dyer Operator Relationship Specialty Start Date End Date Laine Dye MD [address] [facility] [address] [place], [place] [phone] PCP - General 02/04/21 Beam Dyer Operator Relationship Specialty Start Date End Date HardikLaine [address] [place], [place] [phone] PCP - General Family Medicine 04/01/21 Rupa Sandoval [address] [place] [address] [place] [address] Psychiatry 02/27/17 Team Status: Active Member Role Status Dates Sylvester Ramirez Emergency Provider Active Start : November 30, 2023 Unlisted provider (Unknown) Primary Care Provider Acti ve Start: November 30, 2023 Beam Dyer Operator Relationship Specialty Start Date End Date Laine Dye [address] [place], [place] [phone] PCP - General Family Medicine 04/01/21 Rupa Sandoval [address] [place] [address] [place] [phone] Psychiatry 02/27/17 Team Status: Active Member Role Status Dates Sylvester Ramirez Emergency Provider Active Start : November 30, 2023 Unlisted provider (Unknown) Primary Care Provider Acti ve Start: November 30, 2023 Omkar Del Cid Emergency Provider Active Sta rt: January 05, 2024 IMTIAZ WHITLOCK Emergency Contact #1 Active ABIOLA WHITLOCK Emergency Contact #2 Active Beam Dyer Operator Relationship Specialty Start Date End Date Donald Lantigua MD [address] [place], [place] [phone] PCP - General Family Medicine 11/07/19 03/31/21 Rupa Sandoval [address] [place] [address] [place] [address] Psychiatry 02/27/17 Beam Dyer Operator Relationship Specialty Start Date End Date Laine Dye MD [address] [place] [address] PCP - General 02/04/21 Beam Dyer Operator Relationship Specialty Start Date End Date Laine Dye MD [address] [place] [address] PCP - General 02/04/21 Beam Dyer Operator Relationship Specialty Start Date End Date Laine Dye MD [address] [place] [id number] PCP - General 02/04/21 Beam Dyer Operator Relationship Specialty Start Date End Date Laine Dye MD [address] [place] [id number] PCP - General 02/04/21 Team Status: Active Member Role Status Dates Dr. Laine Dye MD Primary Care Provider Active Team Status: Inactive Member Role Status Dates Dr. Laine Dye MD Primary Care Provider Active Start: July 11, 2024 End: July 11, 2024 Dr. Gricel Talley DO Emergency Provider Active Start: July 11, 2024 End: July 11, 2024 Beam Dyer Operator Relationship Specialty Start Date End [place] [address] PCP - General 02/04/21 Team Status: Inactive [...] Status: Inactive Member Role Status Dates Dr. Lanie Dye MD Primary [...] Start: October 21, 2024 Dr. Vishnu Herndon , DO Attending Provider Active Start: October 21, 2024 Dr. Vishnu Herndon , DO Other Provider Active St art: October 21, 2024 Team Status: Inactive Member Role/Relationship Status Dates Dr. Laine Dye MD Primary Care Provider Active Start: October 19, 2024 End: October 19, 2024 Dr. Lestre Aguilar DO Attending Provider Active Start: October 19, 2024 End: October 19, 2024 Dr. Lester Aguilar , DO Emergency Provider Active Start: October 19, 2024 End: October 19, 2024 Team Status: Inactive Member Role/Relationship Status Dates Dr. Laine Dye MD Primary Care Provider Active Start: November 01, 2024 End: November 01, 2024 Dr. Aidan Hickey DO Emergency Provider Activ e Start: November 01, 2024 End: November 01, 2024 Beam Dyer Operator Relationship Specialty Start Date End Date Laine Dye [address] [place] [id number] PCP - General Family Medicine 04/01/21 Rupa Sandoval [address] [place] [address] [place] [id number] Psychiatry 02/27/17 Beam Dyer Operator Relationship Specialty Start Date End Date Laine Dey MD [address] [place] [id number] PCP - General 02/04/21 Team Status: Inactive [...] November 12, 2024 End: November 12, 2024 Team Status: Inactive Member Role/Relationship Status Dates Dr. Laine Dye MD Primary Care Provider Active Start: November 14, 2024 End: November 14, 2024 Dr. Hieu Man MD Emergency Provider Active Start: November 14, 2024 End: November 14, 2024 Team Status: Inactive Member Role/Relationship Status Dates Dr. Laine Dye MD Primary Care Provider Active Start: November 15, 2024 End: November 15, 2024 Dr. Evin Meraz MD Emergency Provider Active Sta rt: November 15, 2024 End: November 15, 2024 Source Comments (unrecognize d section and content) In the event this informatio n is protected by the Federal Confidentiality of Alcohol and Drug Abuse Patient Records regulations: The Federal rules restrict any use of the information to criminally investigate or prosecute any alcohol or drug abuse patient.[facility] the event this information is protected by the Federal Confidentiality of Alcohol and Drug Abuse Patient Records regulations: The Federal rules restrict any use of the information to criminally investigate or prosecute any alcohol or drug abuse patient.[facility] the event this information is protected by the Federal Confidentiality of Alcohol and Drug Abuse Patient Records regulations: The Federal rules restrict any use of the information to criminally investigate or prosecute any alcohol or drug abuse patient.[facility] the event this information is protected by the Federal Confidentiality of Alcohol and Drug Abuse Patient Records regulations: The Federal rules restrict any use of the information to criminally investigate or prosecute any alcohol or drug abuse patient.[facility] the event this information is protected by the Federal Confidentiality of Alcohol and Drug Abuse Patient Records regulations: The Federal rules restrict any use of the information to criminally investigate or prosecute any alcohol or drug abuse patient.[facility] the event this information is protected by the Federal Confidentiality of Alcohol and Drug Abuse Patient Records regulations: The Federal rules restrict any use of the information to criminally investigate or prosecute any alcohol or drug abuse patient.[facility] the event this information is protected by the Federal Confidentiality of Alcohol and Drug Abuse Patient Records regulations: The Federal rules restrict any use of the information to criminally investigate or prosecute any alcohol or drug abuse patient.[facility] Reason for Visit (unrecogniz ed section and [...] IV push, max rate of 25 mg/min. 0 (Given - Provider: Pina Watkins RN) haloperidol [...] large muscle mass. If ordered IV or ME, must dilute 1:1 prior to administration. 2247 (Given - Provider: Pina Watkins RN) LORazepam (Ativan) injection 2 mg (COMPLETED) 2 mg, intramuscular, Administer over 5 Minutes, Once, On Thu08/10/23 at 2155, For 1 dose 2199 (Given - Provider: Pina Watkins RN) nicotine [...] 2 LPM, Keep O2 Sat Above: 92% 2239 (Due) Scheduled Medication Order 08/30/2023 08/31/2023 09/01/2023 [...] BE BASED ON THE PRIMARY CLINICAL RECORDS. [facility] [employer] [facility]. provides no warranty or guarantee of the accuracy or completeness of information in this document.
--- NOTE | 2024-11-16 17:22 | CM.ED ---
Social Work SW contacted patient to follow up from yesterdays visit. Patient stated that he attended the appointment for outpatient therapy and he met with his doctor who is doing a medication change. Patient sounded less anxious, more in control of his thoughts. Patient stated that he intended to follow through with the treatments. Patient was encouraged to come back to the ED should he feel an increase in symptoms. Patient expressed understanding. No further needs at this time. Pearl Jones, DENTOFACIAL ORTHOPEDICS DENTIST, LOG POND WORKER
--- NOTE | 2024-11-23 16:02 | CM.ED ---
Social Work BIRGIT received an email from [facility] stating that patient had attended initial assessment meeting, but today decided that he would not be attending IOP/PHP. The email also stated that patient requested a phone call from BIRGIT. SW contacted patient who stated that he had started on Klonopin twice a day in addition to his Invega IM and that he was doing very well. Patient reported that he decided not to attend program because he was afraid of losing his job and subsequently his apartment. Patient stated that he felt much better and was no longer crying all the time. Patient did sound relaxed over the phone, did not have pressured speech or a flight of ideas. Patient reports to continuing services through [facility]. Patient thanked BIRGIT for calling. No further needs identified at this time. Pearl Jones, RECOVERY ADVOCATE, GUI DEVELOPER
== END 2024-11-15 16:29 | disposition home or self-care (01) ==
PROVIDERS: Emergency Provider Emergency Medicine; PCP Family Medicine; Visit Provider Emergency Medicine
DX: F41.1 Generalized anxiety disorder (principal); F25.0 Schizoaffective disorder, bipolar type; F31.9 Bipolar disorder, unspecified; K25.9 Gastric ulcer, unspecified as acute or chronic, without hemorrhage or perforation; F17.210 Nicotine dependence, cigarettes, uncomplicated; Z79.899 Other long term (current) drug therapy
CPT/HCPCS: 96374; 96375; 96376; 99285; A4216